=== PATIENT | female | born 1940 | race Caucasian/White ===

== ENCOUNTER 2018-04-21 00:52 | Outpatient (CLI) | payer MEDICARE, SELFPAY ==
--- NOTE | 2018-04-21 11:20 | DI.MAMMO_ITS ---
SYMPTOMS/DIAGNOSIS: SCREENING, Z12.31 MAMMOGRAMS: Mammograms were interpreted according to the usual protocol including computer analysis with CAD system, tomosynthesis and C view imaging. Comparison is with the prior examinations. No masses or microcalcifications are seen. There is nothing to suggest malignancy. IMPRESSION: Negative mammogram. Routine screening is recommended. Category 1 , breast density B. MQSA ASSESSMENT OF FINDINGS: Negative. Category 1. Patient will receive a letter notifying them of these results. BI-RADS category B. There are scattered areas of fibroglandular density.
== END 2018-04-21 01:12 ==
PROVIDERS: PCP Family Medicine; Visit Provider Family Medicine
DX: Z12.31 Encounter for screening mammogram for malignant neoplasm of breast (principal)
CPT/HCPCS: 77063; 77067

== ENCOUNTER → 2018-05-19 10:59 | Outpatient (BNVA) | payer MEDICARE, SELFPAY | PROVIDERS: PCP Family Medicine; Visit Provider Psychiatry & Neurology Neurology | DX: R40.4 Transient alteration of awareness (principal); R42 Dizziness and giddiness; R26.89 Other abnormalities of gait and mobility | CPT/HCPCS: 99205; 99215 ==

== ENCOUNTER 2018-05-21 14:41 | Outpatient (CLI) | payer MEDICARE, SELFPAY ==
--- NOTE | 2018-06-14 11:40 | ZIOP_ITS ---
[facility] MONITOR REPORT DATE OF DICTATION June 14, [address] May 21 - 2017 INTERPRETATION Baseline rhythm sinus. Rare single PAC. SVT noted twice, fastest run 122 beats per minute, longest run 9 beat duration. Rare single PVC, less than 1% total beat. No couplet, triplet, VT. No bradycardia/block. 2 triggered events both during sinus rhythm 67-70 beats per minute. SYMPTOMS 2 episodes of lightheadedness, dizziness noted during sinus rhythm, 67-69 beats per minute. Average heart rate sinus 63 beats per minute, range 38-104 beats per minute. Hadley Ho M.D. LARISA/diaz T- 06/14/2018
== END 2018-05-21 15:01 ==
PROVIDERS: PCP Family Medicine; Visit Provider Family Medicine
DX: R41.82 Altered mental status, unspecified (principal); I49.1 Atrial premature depolarization; I49.3 Ventricular premature depolarization
CPT/HCPCS: 93225

== ENCOUNTER 2018-05-24 14:04 | Outpatient (CLI) | payer MEDICARE, SELFPAY ==
[2018-05-24 14:45] LABS: Abs Immature Grans 0.02 k/cumm (0.0-0.09); Absolute Basophil Count 0.04 k/cumm (0.0-0.2); Absolute Eosinophil Count 0.17 k/cumm (0.0-0.7); Absolute Lymphocyte Count 1.48 k/cumm (1.2-3.4); Absolute Monocyte Count 0.94 k/cumm (0.11-0.7); Absolute Neutrophil Count 5.79 k/cumm (1.2-6.7); Basophils % 0.5; HGB 10.2 g/dL (12.0-15.5); Immature Grans % 0.2; Lymphocytes % 17.5; Mean Corp. HGB Concentration 30.9 g/dL (32.0-36.0); Mean Corpuscular Hemoglobin 29.8 pg (27.0-33.0); Mean Corpuscular Volume 96.5 fL (80-95); Mean Platelet Volume 10.2 fL (8.0-11.0); Monocytes % 11.1; Neutrophils % 68.7; Platelet Count 278 x1000/uL (130-400); RBC 3.42 m/cumm (4.00-5.20); RBC Distribution Width 15.6 % (11.7-14.6); White Blood Cell Count 8.44 k/cumm (4.4-10.8)
[2018-05-24 15:38] LABS: ALT 29 U/L (12-78); AST 23 U/L (15-37); Albumin 3.3 g/dL (3.4-5.0); Alkaline Phosphatase 72 U/L (46-116); Anion Gap 8.7 mmol/L (3-11); BUN 20 mg/dL (7-18); Bilirubin, Total 0.3 mg/dL (0.2-1.0); C-Reactive Protein 0.71 mg/dL (0.0-0.3); CO2 30.3 mmol/L (21.0-32.0); CREATININE 0.77 mg/dL (0.55-1.02); Calcium 9.2 mg/dL (8.5-10.1); Chloride 104 mmol/L (98-107); Glucose 97 mg/dL (70-100); Potassium 3.7 mmol/L (3.5-5.1); Sodium 143 mmol/L (136-145)
[2018-05-24 16:11] LABS: ESR 51 MM/HR (0-30)
== END 2018-05-24 14:24 ==
PROVIDERS: PCP Family Medicine; Visit Provider Internal Medicine
DX: M35.3 Polymyalgia rheumatica (principal); Z79.899 Other long term (current) drug therapy
CPT/HCPCS: 36415; 80053; 85652; 85025; 86140

== ENCOUNTER 2018-06-14 10:40 | Outpatient (CLI) | payer MEDICARE, SELFPAY | END 2018-06-14 11:00 | PROVIDERS: PCP Family Medicine; Referring Provider Psychiatry & Neurology Neurology; Visit Provider Internal Medicine Interventional Cardiology | DX: R41.82 Altered mental status, unspecified (principal); I49.1 Atrial premature depolarization; I49.3 Ventricular premature depolarization | CPT/HCPCS: 0298T ==

== ENCOUNTER 2018-06-28 10:04 | Day surgery (SDC) | payer MEDICARE, SELFPAY ==
--- NOTE | 2018-06-28 06:31 | W.COLOREPORT ---
Date of service: 06/28/18 Time of Service: 11:17 Colonoscopy Report Date of procedure: 06/28/18 Pre-op diagnosis general: Colon Cancer screening Post-op diagnosis procedure note: other (cecal polyp/ severe yao-diverticulosis) Procedure: Colonoscopy with polypectomy by cold forceps Surgeon: My Schwarz Anesthesia proc note operative: MAC (Georgia Alfonso CRNA/ ASA 3) Estimated blood loss (mL): 10 Pathology: other (cecal polyp) Complications: None Disposition: same day Indications: Mrs. Manuel is a pleasant 77-year-old female who was seen in the office to discuss a colonoscopy. Her last colonoscopy was in 2005 and was normal. Risks, benefits, complications were reviewed with her and she wished to proceed no guarantees were given or implied. Prep: Miralax/Dulcolax Procedure Start Time: :17 Procedure End Time: 11:51 Retraction Time: 15 minutes Findings: 1. Cecal polyp 2. Severe yao-diverticulosis Procedure Description: After informed consent was obtained the patient was taken to the procedure room and placed in a left decubitous position. Monitors were applied and a time out was done. The patients name, date of , procedure, allergies to medications and metal in their body was reviewed. The patient was then sedated. Once sedated and comfortable a rectal exam was done. External exam was normal. Internal exam revealed a normal sphincter tone and no palpable masses. The scope was then introduced and retro-flexed. Small Grade 1 internal hemorrhoids were identified. The scope was then advanced to the cecum with difficulty due to the severe diverticulosis and a very tortuous colon. The TI and appendiceal orifice were identified. The prep was good. The scope was then slowly retracted over 15 minutes back into the rectum. The scope was removed and the patient was woken up and taken back to Same day surgery in stable condition. The patient tolerated the procedure well and there were no immediate complications. Follow up: The patient should follow up in 3-5 years unless they develop changes in bowel habits or other new gastrointestinal complaints.
--- NOTE | 2018-06-28 06:34 | PDOC.DSDIS_ITS ---
Discharge Plan Disposition Patient Disposition: HOME Condition: Good Discharge Details Reason For Visit: Colonoscopy Attending Provider: My Schwarz Primary Care Provider: Liz Granado Home Meds and New Rx's Prescriptions: Continue bupropion HCl 300 mg tablet extended release 24 hr 300 mg PO QAM RF: 0 isoniazid 300 mg tablet 300 mg PO DAILY RF: 0 zolpidem 12.5 mg tablet,ext release multiphase 12.5 mg PO HS RF: 0 cholecalciferol (vitamin D3) 1,000 unit tablet 500 unit PO DAILY RF: 0 methylprednisolone [Medrol] 4 mg tablet 4 mg PO DAILY RF: 0 pyridoxine (vitamin B6) 25 mg tablet 25 mg PO DAILY RF: 0 aspirin [Aspirin Low Dose] 81 MG tablet,delayed release (DR/EC) 81 mg PO DAILY RF: 0 clotrimazole 45 GM cream 45 gm Topical BID PRNQty: 1 RF: 2 nystatin 60 GM powder 60 gm Topical DAILY Qty: 1 RF: 2 folic acid 1 MG tablet 1 mg PO DAILY Qty: 90 RF: 4 ferrous gluconate 324 MG tablet 324 mg PO DAILY Qty: 30 RF: 4 azelaic acid [Finacea] 50 GM gel 50 gm Topical BID Qty: 1 RF: 3 furosemide 20 MG tablet 20 mg PO DAILY Qty: 30 RF: 3 mirtazapine 7.5 MG tablet 7.5 mg PO HS Qty: 90 RF: 2 methotrexate sodium 2.5 mg tablet 15 mg PO .weekly Qty: 4 RF: 0 levothyroxine 100 mcg tablet 100 mcg PO DAILY Qty: 90 RF: 2 ascorbic acid (vitamin C) [Vitamin C] 500 MG tablet 500 mg PO DAILY RF: 0 Discontinued bisacodyl [Dulcolax (bisacodyl)] 5 mg tablet,delayed release (DR/EC) 5 mg PO ONCE Qty: 4 RF: 0 polyethylene glycol 3350 17 gram/dose powder 255 g PO ONCE Qty: 255 RF: 0 Discharge Instructions Instructions: Colonoscopy (DC), Diverticulosis (DC) Additional Instructions: Findings: Severe Diverticulosis One polyp Follow up: 3-5 years Please call if you develop: fevers >101.5 Nausea or vomiting Abdominal pain that is not transient DAY SURGERY UNIT POST COLONOSCOPY INSTRUCTIONS 1. Because there will be medication in your system for the next 24 hours, you may feel a little sleepy. Your coordination will be affected. Therefore: a. Do not drive or operate dangerous equipment for 24 hours. b. Do not drink alcohol beverages for 24 hours (not even beer). c. Plan to go home and rest for the day. 2. Generally there are no restrictions on your activity after a day or so has gone by, but you may feel a bit fatigued for a few days. 3 After you arrive home you may have a light meal and return to a normal diet as you can tolerate it without feeling sick to your stomach. 4. After surgery, you may feel pain or discomfort. This should be only transient , but if it persists please contact your doctor. 5. If there are any questions regarding the findings of your procedure, please feel free to contact your doctor. 6. If you are unable to contact your doctor with a problem, contact the hospital at [phone]. 7. Continue all your regular medications unless directed otherwise. I understand the above instructions and have no questions. Signature of Patient or Responsible Adult Escort Date/Time Name of Responsible Adult Escort Signature of Nurse Date/Time Activity:: Activity as Tolerated Diet:: high fiber diet Discharge Orders Discharge Orders: Discharge Order (Routine); Ordered 06/28/18 Ordered By: My Schwarz DS: Diagnosis Discharge Diagnosis (1) S/P colonoscopy: Status: Acute (2) Colon polyp: Status: Acute
[2018-06-28 10:21] VITALS: BP 159/77; PULSE 60; RESP 16; TEMP 36.8; O2SAT 97
[2018-06-28] MEDS: Lactated Ringers 1,000 ML 80 ML IV (11:09)
--- NOTE | 2018-06-28 11:37 | BOWEL_PTH ---
PATIENT: Riddhi Manuel LOC: [facility] U#:[id number] AGE/SX: 77/F ROOM: RE06/28/[address]: My Schwarz MD : [id number] BED: DIS: 06/28/2018 SPEC #: [id number] RECD: 06/28/18 13:05 STATUS: YANELY RE #: [id number] YOLI: 06/28/18 11:[address]: My Schwarz DEPT: Surgical Specimen RECD BY: Dolores Pulliam ENTERED: 06/28/18 13:06 SP TYPE: Bowel OTHR DR: Liz Granado MD Tissues: 1 - BIOPSY BOWEL Procedures: GROSS AND MICRO LEVEL 4 Comments: [id number]
[2018-06-28 12:28] VITALS: BP 164/70; PULSE 59; RESP 19; TEMP 36.4; O2SAT 98
[2018-06-28] MEDS: Ondansetron O.D.T. 4 MG TABEF PO (13:06)
== END 2018-06-28 13:05 | disposition home or self-care (01) ==
LOC: SUR 10:04
PROVIDERS: PCP Family Medicine; Visit Provider Surgery
PROC: 0DJD8ZZ Inspection of Lower Intestinal Tract, Via Natural or Artificial Opening Endoscopic (ICD-10-PCS; CPT 45378; principal; 2018-06-28 11:00)
DX: Z12.11 Encounter for screening for malignant neoplasm of colon (principal); K57.30 Diverticulosis of large intestine without perforation or abscess without bleeding; G47.33 Obstructive sleep apnea (adult) (pediatric); D12.0 Benign neoplasm of cecum
CPT/HCPCS: 45380; 88305

== ENCOUNTER 2018-06-28 15:40 | Inpatient (IN) | payer MEDICARE, SELFPAY ==
[2018-06-28] VITALS (8 sets, daily range): BP systolic 109–162; BP diastolic 43–69; PULSE 68–98; RESP 16–22; TEMP 35.9–37.2; O2SAT 93–97
--- NOTE | 2018-06-28 16:26 | ED.GENADUL_ITS ---
Discharge Plan Disposition Patient Disposition: [facility] INPATIENT Condition: Serious Discharge Details Chief Complaint: Abd Prob Clinical Impression: Bowel perforation Admit Date/Time: 06/28/18 17:51 Admit Provider: My Schwarz Attending Provider: My Schwarz Primary Care Provider: Liz Granado ED Provider: Radha Garcia Medical Decision Making Patient is a 77-year-old female presenting today, accompanied by her , with chief complaint of abdominal pain. She reports the pain began this morning after colonoscopy and have progressively increased since then. Patient was discharged from the hospital approximately 4 hours prior to arrival here. States that the pain has been increasing. She is not been able to pass flatus or have a bowel movement. States that pain radiates into back. States that she has been coughing and bringing up mucus. No cough prior to procedure this morning. No CP or SOB. Reviewed report from colonoscopy. Dr. Schwarz noted that she had severe diverticulosis and very tortuous colon. She did not note any complications. However, with this report of tortuosity, I am concerned for possible perforation. Plan obtain x-ray and laboratory evaluation. Will give morphine and Zofran to help with symptom medic management EKG reviewed by Dr. Bailey. NSR with no acute ischemic findings noted. X-ray reviewed by radiologist. They note diffuse distention of bowel loops especially the colon, but there is distal bowel glass and no dilation of bowel loops. Surgical sutures seen in the pelvis.. Diffuse free air is present. Bones and joints are unremarkable for age. Dr. Schwarz had reviewed the x-ray and came to evaluate the patient. She will be going to the operating room for free air status post colonoscopy. She is requested to place the patient on Zosyn. Order for Zosyn was placed. I did consult with pharmacy the patient is on methotrexate. She advised that this can increase the serum concentration of methotrexate but at one time dose should not have a large, long lasting effect laboratory evaluation significant for leukocytosis of 19. Potassium is low at 3.2. Magnesium is low at 1.6. Patient to OR with Dr. Schwarz, antibiotics are hanging. All of her questions and concerns were addressed. HPI General Mode of arrival: wheelchair . Date/Time Provider Initiated Documentation: 06/28/18 16:15 . Limitations to Documentation: no limitations . Information obtained by: patient and family . History of Present Illness 77 year old F presents to the emergency department with the chief complaint of abdominal pain, described as severe, Quality is described as stabbing, and is localized to the abdomen. Patient reports radiation to back. Patient started experiencing this hour(s) and it has been constant. No relieving factors improve symptom(s), Movement worsens symptoms . Patient notes loss of appetite and nausea/vomiting; denies chest pain, cough, fever/chills, rash and shortness of breath. Patient did receive the following treatments prior to arrival, none Related Data Home Medications Medication Instructions Recorded Confirmed aspirin [Aspirin Low Dose] 81 mg PO DAILY tab-cap 12/20/12 06/28/18 ascorbic acid (vitamin C) [Vitamin 500 mg PO DAILY 01/01/17 06/28/18 C] clotrimazole 45 gm TOPICAL BID PRN #1 script 03/05/17 06/28/18 nystatin 60 gm TOPICAL DAILY #1 gm 03/05/17 06/28/18 ferrous gluconate 324 mg PO DAILY #30 tab 08/27/17 06/28/18 folic acid 1 mg PO DAILY #90 tab-cap 08/27/17 06/28/18 azelaic acid [Finacea] 50 gm TOPICAL BID #1 script 11/16/17 06/28/18 furosemide 20 mg PO DAILY #30 tab-cap 12/21/17 06/28/18 mirtazapine 7.5 mg PO HS #90 tab-cap 02/02/18 06/28/18 methotrexate sodium 2.5 mg tablet 15 mg PO .weekly #4 tab 04/07/18 06/28/18 methylprednisolone 4 mg tablet 4 mg PO DAILY tab 04/07/18 06/28/18 levothyroxine 100 mcg tablet 100 mcg PO DAILY #90 tab-cap 05/14/18 06/28/18 pyridoxine (vitamin B6) 25 mg 25 mg PO DAILY 05/19/18 06/28/18 tablet bupropion HCl XL 300 mg 24 hr 300 mg PO QAM 06/14/18 06/28/18 tablet, extended release cholecalciferol (vitamin D3) 1,000 500 unit PO DAILY tab 06/14/18 06/28/18 unit tablet isoniazid 300 mg tablet 300 mg PO DAILY 06/14/18 06/28/18 zolpidem ER 12.5 mg 12.5 mg PO HS tab 06/14/18 06/28/18 tablet,extended release,multiphase Previous Rx's Medication Instructions Recorded ferrous gluconate 324 mg PO DAILY #30 tab 08/27/17 folic acid 1 mg PO DAILY #90 tab-cap 08/27/17 azelaic acid [Finacea] 50 gm TOPICAL BID #1 script 11/16/17 furosemide 20 mg PO DAILY #30 tab-cap 12/21/17 mirtazapine 7.5 mg PO HS #90 tab-cap 02/02/18 levothyroxine 100 mcg tablet 100 mcg PO DAILY #90 tab-cap 05/14/18 Allergies Allergy/AdvReac Type Severity Reaction Status Date / Time banana Allergy Intermediate Other (See Unverified 06/28/18 15:46 Comment) cucumber Allergy Intermediate Other (See Unverified 06/28/18 15:46 Comment) Iodinated Contrast- Oral and Allergy Unknown SWELLING; Unverified 06/28/18 15:46 IV Dye RASH [Iodinated Contrast Media - IV Dye] chloramphenicol AdvReac Severe KIDNEY Unverified 06/28/18 15:46 FAILURE tetracycline AdvReac Severe KIDNEY Unverified 06/28/18 15:46 FAILURE melon AdvReac Intermediate Cantaloupe-Abd Verified 06/28/18 15:46 pain, diarrhea ADHESIVE TAPE Allergy Intermediate takes skin Uncoded 06/28/18 15:46 off SUTURE MATERIAL Allergy Intermediate Purluent Uncoded 06/28/18 15:46 Drainage General Stated Complaint: Abd Prob JOSHUA: 2 Review of Systems Constitutional Reports as per HPI, Denies chills, Denies fatigue, Denies fever(s) and Denies headache(s) ENT Denies headache(s) Cardiovascular Reports as per HPI, Denies chest pain and Denies dyspnea Respiratory Reports as per HPI, Denies cough and Denies dyspnea Gastrointestinal Reports as per HPI, Reports abdominal pain, Denies belching, Reports cramping, Denies excessive flatus, Reports nausea and Denies vomiting Genitourinary Reports system reviewed and no additional complaints, except as docu (denies change in urinary habits) Musculoskeletal Reports as per HPI and Reports back pain Integumentary/Breasts Reports as per HPI and Denies rash Neurologic Denies headache(s) Endocrine Denies fatigue PFSH Raynaud's disease (Acute) Primary osteoarthritis of left knee (Acute 07/30/15) PMR (polymyalgia rheumatica) (Acute 01/15/16) Osteoporosis (Acute) Osteopenia (Acute 07/30/16) Obstructive sleep apnea syndrome (Acute) Non-alcoholic fatty liver disease (Acute) Memory impairment (Acute 06/18/94) Increased body mass index (Acute) Hypothyroidism (Acute 04/05/12) Fracture, calcaneus closed (Acute 09/19/14) Excessive sweating (Acute 06/02/16) Depressive disorder (Acute) Colon polyp (Acute 06/28/18) Cataract (Acute 07/28/14) Benign paroxysmal positional vertigo (Acute) Abdominal pain (Acute 10/31/13) Insomnia (Acute) Tuberculosis (Chronic) Family History Mother Heart disease Father Stroke Sister No problems noted. Brother No problems noted. Grandfather Essential hypertension Heart disease Grandfather No problems noted. Grandmother Personal history of malignant neoplasm Stroke Grandmother Personal history of malignant neoplasm H/O dilation and curettage (Acute) S/P tonsillectomy (Acute) Abdominal hysterectomy (~1975) Appendectomy Bilateral salpingectomy with oophorectomy (~1975) Colonoscopy - MAC EGD - MAC (~2003) Laparoscopic, Ovarian Cystectomy Rotator Cuff Repair Family History Mother Heart disease Father Stroke Sister No problems noted. Brother No problems noted. Grandfather Essential hypertension Heart disease Grandfather No problems noted. Grandmother Personal history of malignant neoplasm Stroke Grandmother Personal history of malignant neoplasm Medical History Raynaud's disease (Acute) Primary osteoarthritis of left knee (Acute 07/30/15) PMR (polymyalgia rheumatica) (Acute 01/15/16) Osteoporosis (Acute) Osteopenia (Acute 07/30/16) Obstructive sleep apnea syndrome (Acute) Non-alcoholic fatty liver disease (Acute) Memory impairment (Acute 06/18/94) Increased body mass index (Acute) Hypothyroidism (Acute 04/05/12) Fracture, calcaneus closed (Acute 09/19/14) Excessive sweating (Acute 06/02/16) Depressive disorder (Acute) Colon polyp (Acute 06/28/18) Cataract (Acute 07/28/14) Benign paroxysmal positional vertigo (Acute) Abdominal pain (Acute 10/31/13) Insomnia (Acute) Tuberculosis (Chronic) Social History household members: other details: 2 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 Smoking/Tobacco Use Status: Former Tobacco Use alcohol intake: current alcohol intake frequency: a few times a month additional social history: DECREASED VISION Surgical History H/O dilation and curettage (Acute) S/P tonsillectomy (Acute) Abdominal hysterectomy (~1975) Appendectomy Bilateral salpingectomy with oophorectomy (~1975) Colonoscopy - MAC EGD - MAC (~2003) Laparoscopic, Ovarian Cystectomy Rotator Cuff Repair Social History household members: other details: 2 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 Smoking/Tobacco Use Status: Former Tobacco Use alcohol intake: current alcohol intake frequency: a few times a month additional social history: DECREASED VISION Exam Const General: cooperative, healthy appearing, uncomfortable (patient appears uncomfortable, patient bent forward), no acute distress, well developed and well groomed Nutritional Appearance: well nourished and obese Orientation: alert and awake [facility] Head: normal to inspection Mouth: moist mucous membranes Resp Effort & Inspection: normal respiratory effort, able to speak in complete sentences and no respiratory distress Auscultation: clear to auscultation bilaterally, no rales, no rhonchi and no wheezes Cardio Rate: regular rate Rhythm: regular rhythm Heart Sounds: S1 normal and S2 normal GI Inspection: abnormal to inspection, distended, obesity and no visible herniation Palpation: soft, not firm, guarding (diffuse), no pulsatile masses, not rigid and tender (diffuse tenderness) Percussion: tympanic to percussion Auscultation: hypoactive bowel sounds Back/Spine/Pelvis Back: no CVA tenderness Skin General skin exam: no rashes or lesions noted Trauma: no lacerations or abrasions Neuro General: alert and awake Cognition: normal cognition Speech: speech normal Gait: antalgic (moving bent forward at the waist) Psych Appearance: grossly normal and well kempt Mental Status: mental status grossly normal Speech and Movement: speech and movement normal Course Vital Signs Temperature 35.9 C L 06/28/18 15:44 Pulse 68 06/28/18 15:44 Respiratory Rate 20 06/28/18 15:44 Blood Pressure 153/57 H 06/28/18 15:44 Pulse Oximetry 97 06/28/18 15:44 Temperature 35.9 C L 06/28/18 15:44 Temperature Source Temporal Artery Scan 06/28/18 15:44 Pulse 68 06/28/18 15:44 Respiratory Rate 20 06/28/18 15:44 Respiratory Effort Non-Labored 06/28/18 15:44 Blood Pressure 153/57 H 06/28/18 15:44 Pulse Oximetry 97 06/28/18 15:44 Oxygen Delivery Method Room Air 06/28/18 15:44 Oxygen Flow Rate 0 06/28/18 15:44 Pain Level 10 06/28/18 15:44
--- NOTE | 2018-06-28 16:26 | DI.RAD_ITS ---
SYMPTOM/DIAGNOSIS: ABDOMINAL PAIN AFTER COLONOSCOPY FLAT AND UPRIGHT VIEWS OF ABDOMEN: The patient is status post colonoscopy. On the upright view, there is a large amount of free air seen beneath the diaphragm consistent with colonic perforation. There is gas scattered in small and large bowel. Suture material is seen in the left lower pelvis. IMPRESSION: Large amount of free air.
[2018-06-28] MEDS: MORPHine 10 MG/ML VIAL 4 MG IM (16:36)
[2018-06-28] MEDS: Ondansetron O.D.T. 4 MG TABEF PO (16:37)
[2018-06-28 17:15] LABS: Abs Immature Grans 0.05 k/cumm (0.0-0.09); Absolute Basophil Count 0.04 k/cumm (0.0-0.2); Absolute Eosinophil Count 0.02 k/cumm (0.0-0.7); Absolute Lymphocyte Count 0.75 k/cumm (1.2-3.4); Absolute Neutrophil Count 17.55 k/cumm (1.2-6.7); Basophils % 0.2; Eosinophils % 0.1; HCT 39.1 % (36.0-46.0); HGB 12.3 g/dL (12.0-15.5); Immature Grans % 0.3; Lymphocytes % 3.8; Mean Corp. HGB Concentration 31.5 g/dL (32.0-36.0); Mean Corpuscular Hemoglobin 29.4 pg (27.0-33.0); Mean Corpuscular Volume 93.5 fL (80-95); Mean Platelet Volume 10.2 fL (8.0-11.0); Monocytes % 6.6; Platelet Count 253 x1000/uL (130-400); RBC 4.18 m/cumm (4.00-5.20); RBC Distribution Width 15.3 % (11.7-14.6); White Blood Cell Count 19.72 k/cumm (4.4-10.8)
[2018-06-28 17:26] LABS: ALT 34 U/L (12-78); AST 26 U/L (15-37); Albumin 3.4 g/dL (3.4-5.0); Alkaline Phosphatase 80 U/L (46-116); Anion Gap 11.4 mmol/L (3-11); BUN 16 mg/dL (7-18); Bilirubin, Total 0.5 mg/dL (0.2-1.0); CO2 25.6 mmol/L (21.0-32.0); CREATININE 0.81 mg/dL (0.55-1.02); Calcium 9.1 mg/dL (8.5-10.1); Chloride 105 mmol/L (98-107); Glucose 115 mg/dL (70-100); Lipase 84 U/L (73-393); Magnesium 1.6 mg/dL (1.8-2.4); Potassium 3.2 mmol/L (3.5-5.1); Sodium 142 mmol/L (136-145); Total Protein 7.8 g/dL (6.4-8.2)
[2018-06-28 17:32] LABS: Troponin I < 0.02 ng/mL (0.00-0.06)
--- NOTE | 2018-06-28 17:32 | DI.VRAD_ITS ---
EXAM: XR Abdomen, 2 Views EXAM DATE/TIME: 06/28/2018 5:18 PM CLINICAL HISTORY: 77 years old, female; Signs and symptoms; Abdominal tenderness and bloating; Prior surgery; Surgery date: Post-operative (0-2 days); Surgery type: S/P colonoscopy 06-28-18 TECHNIQUE: Frontal view of the abdomen/pelvis with upright view of the abdomen. COMPARISON: [facility]EMA 10/26/2013 9:59 AM FINDINGS: Gastrointestinal tract: There is diffuse distention of bowel loops especially the colon, but there is distal bowel gas, and no dilation of bowel loops. Intraperitoneal space: Surgical suture is seen in the pelvis. Diffuse free air is present Bones/joints: Unremarkable for age. IMPRESSION: Free air compatible with bowel rupture. Dictated and Authenticated by: Richard Harris MD. Ordering:ALANA KNAPP MD
--- NOTE | 2018-06-28 17:36 | W.PM.HP.N ---
Date of service: 06/28/18 Time of Service: 17:37 Assessment and Plan (1) Perforation of colon as colonoscopy complication: Current visit: Yes Status: Acute A\\ &7 year old with free air after a difficult colonoscopy today P\\ Exploratory laparotomy with repair of perforation, possible bowel resection. Risks, benefits and complications reviewed with patient and her . Complications include but are not limited to bleeding, pain, injury to bowel, anastamotic leak and adverse reaction to the medications. Questions were entertained and answered to her satisfaction and she wished to proceed. No guarantees were given or implied. History of Present Illness Chief Complaint: abdominal pain Narrative: Mrs. Manuel is a pleasant 77 year old who underwent a colonoscopy today which was very difficult due to a tortuous colon and severe diverticulosis. The patient had abdominal pain after the colonoscopy but felt that it was no different then after her other colonoscopies and so she went home. At home the pain continued to get worse. She called our office and was instructed to go to the ER. In the ER a flat plate was done which showed a lot of free air under the diaphragm. Review of Systems Constitutional Denies fever(s) Cardiovascular Denies chest pain, Denies rapid heart rate, Denies irregular heart rhythm, Denies palpitations and Denies dyspnea Respiratory Denies cough and Denies dyspnea Gastrointestinal Reports as per HPI Endocrine Denies palpitations PFSH Raynaud's disease (Acute) Primary osteoarthritis of left knee (Acute 07/30/15) PMR (polymyalgia rheumatica) (Acute 01/15/16) Osteoporosis (Acute) Osteopenia (Acute 07/30/16) Obstructive sleep apnea syndrome (Acute) Non-alcoholic fatty liver disease (Acute) Memory impairment (Acute 06/18/94) Increased body mass index (Acute) Hypothyroidism (Acute 04/05/12) Fracture, calcaneus closed (Acute 09/19/14) Excessive sweating (Acute 06/02/16) Depressive disorder (Acute) Colon polyp (Acute 06/28/18) Cataract (Acute 07/28/14) Benign paroxysmal positional vertigo (Acute) Abdominal pain (Acute 10/31/13) Insomnia (Acute) Tuberculosis (Chronic) Family History Mother Heart disease Father Stroke Sister No problems noted. Brother No problems noted. Grandfather Essential hypertension Heart disease Grandfather No problems noted. Grandmother Personal history of malignant neoplasm Stroke Grandmother Personal history of malignant neoplasm H/O dilation and curettage (Acute) S/P tonsillectomy (Acute) Abdominal hysterectomy (~1975) Appendectomy Bilateral salpingectomy with oophorectomy (~1975) Colonoscopy - MAC EGD - MAC (~2003) Laparoscopic, Ovarian Cystectomy Rotator Cuff Repair Family History Mother Heart disease Father Stroke Sister No problems noted. Brother No problems noted. Grandfather Essential hypertension Heart disease Grandfather No problems noted. Grandmother Personal history of malignant neoplasm Stroke Grandmother Personal history of malignant neoplasm Medical History Raynaud's disease (Acute) Primary osteoarthritis of left knee (Acute 07/30/15) PMR (polymyalgia rheumatica) (Acute 01/15/16) Osteoporosis (Acute) Osteopenia (Acute 07/30/16) Obstructive sleep apnea syndrome (Acute) Non-alcoholic fatty liver disease (Acute) Memory impairment (Acute 06/18/94) Increased body mass index (Acute) Hypothyroidism (Acute 04/05/12) Fracture, calcaneus closed (Acute 09/19/14) Excessive sweating (Acute 06/02/16) Depressive disorder (Acute) Colon polyp (Acute 06/28/18) Cataract (Acute 07/28/14) Benign paroxysmal positional vertigo (Acute) Abdominal pain (Acute 10/31/13) Insomnia (Acute) Tuberculosis (Chronic) Social History household members: other details: 2 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 Smoking/Tobacco Use Status: Former Tobacco Use alcohol intake: current alcohol intake frequency: a few times a month additional social history: DECREASED VISION Surgical History H/O dilation and curettage (Acute) S/P tonsillectomy (Acute) Abdominal hysterectomy (~1975) Appendectomy Bilateral salpingectomy with oophorectomy (~1975) Colonoscopy - MAC EGD - MAC (~2003) Laparoscopic, Ovarian Cystectomy Rotator Cuff Repair Social History household members: other details: 2 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 Smoking/Tobacco Use Status: Former Tobacco Use alcohol intake: current alcohol intake frequency: a few times a month additional social history: DECREASED VISION Meds Home Medications Medication Instructions Recorded Confirmed Type aspirin [Aspirin Low Dose] 81 mg PO DAILY tab-cap 12/20/12 06/28/18 History ascorbic acid (vitamin C) [Vitamin 500 mg PO DAILY 01/01/17 06/28/18 History C] clotrimazole 45 gm TOPICAL BID PRN #1 script 03/05/17 06/28/18 History nystatin 60 gm TOPICAL DAILY #1 gm 03/05/17 06/28/18 History ferrous gluconate 324 mg PO DAILY #30 tab 08/27/17 06/28/18 Rx folic acid 1 mg PO DAILY #90 tab-cap 08/27/17 06/28/18 Rx azelaic acid [Finacea] 50 gm TOPICAL BID #1 script 11/16/17 06/28/18 Rx furosemide 20 mg PO DAILY #30 tab-cap 12/21/17 06/28/18 Rx mirtazapine 7.5 mg PO HS #90 tab-cap 02/02/18 06/28/18 Rx methotrexate sodium 2.5 mg tablet 15 mg PO .weekly #4 tab 04/07/18 06/28/18 History methylprednisolone 4 mg tablet 4 mg PO DAILY tab 04/07/18 06/28/18 History levothyroxine 100 mcg tablet 100 mcg PO DAILY #90 tab-cap 05/14/18 06/28/18 Rx pyridoxine (vitamin B6) 25 mg 25 mg PO DAILY 05/19/18 06/28/18 History tablet bupropion HCl XL 300 mg 24 hr 300 mg PO QAM 06/14/18 06/28/18 History tablet, extended release cholecalciferol (vitamin D3) 1,000 500 unit PO DAILY tab 06/14/18 06/28/18 History unit tablet isoniazid 300 mg tablet 300 mg PO DAILY 06/14/18 06/28/18 History zolpidem ER 12.5 mg 12.5 mg PO HS tab 06/14/18 06/28/18 History tablet,extended release,multiphase Allergies Allergy/AdvReac Type Severity Reaction Status Date / Time banana Allergy Intermediate Other (See Unverified 06/28/18 15:46 Comment) cucumber Allergy Intermediate Other (See Unverified 06/28/18 15:46 Comment) Iodinated Contrast- Oral and Allergy Unknown SWELLING; Unverified 06/28/18 15:46 IV Dye RASH [Iodinated Contrast Media - IV Dye] chloramphenicol AdvReac Severe KIDNEY Unverified 06/28/18 15:46 FAILURE tetracycline AdvReac Severe KIDNEY Unverified 06/28/18 15:46 FAILURE melon AdvReac Intermediate Cantaloupe-Abd Verified 06/28/18 15:46 pain, diarrhea ADHESIVE TAPE Allergy Intermediate takes skin Uncoded 06/28/18 15:46 off SUTURE MATERIAL Allergy Intermediate Purluent Uncoded 06/28/18 15:46 Drainage Exam Const General: cooperative and no acute distress Resp Effort & Inspection: normal respiratory effort Auscultation: clear to auscultation bilaterally Cardio Rate: regular rate Rhythm: regular rhythm Heart Sounds: no gallops, no murmurs and no rubs GI Inspection: normal to inspection Palpation: soft, no hepatosplenomegaly and guarding Auscultation: normal bowel sounds Results Labs : 06/28/18 16:47 06/28/18 16:47 Laboratory Results - last 24 hr 06/28/18 06/28/18 16:47 16:47 WBC 19.72 H RBC 4.18 Hgb 12.3 Hct 39.1 MCV 93.5 MCH 29.4 MCHC 31.5 L RDW 15.3 H Plt Count 253 MPV 10.2 Immature Gran % 0.3 Neutrophils % 89.0 Lymphocytes % 3.8 Monocytes % 6.6 Eosinophils % 0.1 Basophils % 0.2 Absolute Neutrophils 17.55 H Absolute Lymphocytes 0.75 L Absolute Monocytes 1.30 H Absolute Eosinophils 0.02 Absolute Basophils 0.04 Sodium 142 Potassium 3.2 L Chloride 105 Carbon Dioxide 25.6 Anion Gap 11.4 H BUN 16 Creatinine 0.81 Estimated GFR/1.73 m2 >= 60.00 Glucose 115 H Calcium 9.1 Magnesium 1.6 L Total Bilirubin 0.5 AST 26 ALT 34 Alkaline Phosphatase 80 Troponin I < 0.02 Total Protein 7.8 Albumin 3.4 Lipase 84 Last Vital Signs Temp 96.6 F L 06/28/18 15:44 Pulse 68 06/28/18 15:44 Resp 20 06/28/18 15:44 BP 153/57 H 06/28/18 15:44 Pulse Ox 97 06/28/18 15:44
[2018-06-28] MEDS: Lactated Ringers 1,000 ML 125 ML IV ×2 (18:07→23:15)
[2018-06-28] MEDS: PIPERACILLIN/TAZO 3.375 GM in Normal Saline 50 ML IVPB (18:08)
[2018-06-28] MEDS: Pantoprazole 40 MG VIAL IVP (18:18)
[2018-06-28] MEDS: MAGNESIUM SULFATE 2 GM/50 ML BAG IVPB (18:19)
[2018-06-28] MEDS: Lidocaine 2% Multi-Dose 50 ML VIAL (19:36)
--- NOTE | 2018-06-28 20:13 | BOWEL_PTH ---
PATIENT: Riddhi Manuel LOC: U#:[id number] AGE/SX: 77/F ROOM: RE06/28/[address]: My Schwarz MD : 1940 BED: A DIS: 07/05/2018 SPEC #: [id number] RECD: 06/29/18 12:41 STATUS: YANELY REQ #: [id number] YOLI: 06/28/18 20:[address]: My Schwarz DEPT: Surgical Specimen RECD BY: Dolores Pulliam ENTERED: 06/29/18 12:41 SP TYPE: Bowel OTHR DR: Liz Granado MD Tissues: 1 - BOWEL RESECTION(OTHER) Procedures: GROSS AND MICRO LEVEL 5 Comments: [id number]
--- NOTE | 2018-06-28 20:25 | PDOC.ANES ---
Date of service: 06/28/18 Time of Service: 20:25 Anesthesia Note Report Anesthesia Note: Midline Catheter Placement: Called by the Emergency Room for vascular access on surgical patient after a couple unsuccessful IV attempts. Patient states she has been a difficult IV start in the past. Given surgical course, decision made to place a midline catheter. Ultrasound used for placement. Sites assessed, right basilic vein identified after tourniquet placed. Site cleansed with chloroprep, 18 gauge BARD Powerglide Pro placed, guidewire advanced with ease, catheter advanced with ease all under ultrasound. Stat-Lock placed and dressing applied. IV flushed with positive venous blood return noted. No complications, patient tolerated procedure well.
[2018-06-29] VITALS (8 sets, daily range): BP systolic 95–146; BP diastolic 41–67; PULSE 62–66; RESP 17–20; TEMP 36.2–37; O2SAT 94–98
[2018-06-29] MEDS: Ketorolac 15 MG/ML VIAL IVP ×4 (00:21→23:21)
[2018-06-29] MEDS: ACETAMINOPHEN 1,000 MG/100 ML BTL 400 MG IVPB ×2 (02:01→10:42)
[2018-06-29] MEDS: PIPERACILLIN/TAZO 3.375 GM in Normal Saline 50 ML IVPB ×4 (02:48→19:43)
[2018-06-29] MEDS: Lactated Ringers 1,000 ML 125 ML IV ×3 (06:43→17:14)
[2018-06-29 07:42] LABS: HCT 34.7 % (36.0-46.0); HGB 10.8 g/dL (12.0-15.5); Mean Corp. HGB Concentration 31.1 g/dL (32.0-36.0); Mean Corpuscular Hemoglobin 29.4 pg (27.0-33.0); Mean Corpuscular Volume 94.6 fL (80-95); Mean Platelet Volume 10.8 fL (8.0-11.0); Platelet Count 243 x1000/uL (130-400); RBC 3.67 m/cumm (4.00-5.20); RBC Distribution Width 15.2 % (11.7-14.6); White Blood Cell Count 23.95 k/cumm (4.4-10.8)
[2018-06-29 07:49] LABS: Anion Gap 10.4 mmol/L (3-11); BUN 15 mg/dL (7-18); CO2 25.6 mmol/L (21.0-32.0); Calcium 8.5 mg/dL (8.5-10.1); Chloride 105 mmol/L (98-107); Estimated GFR 48.29 (mL/min/1.73m2); Glucose 129 mg/dL (70-100); Magnesium 2.1 mg/dL (1.8-2.4); Sodium 141 mmol/L (136-145)
--- NOTE | 2018-06-29 07:51 | PDOC.CMIN ---
- If Service Date Differs Date of service: 06/29/18 Time of Service: 07:51 Care Management Initial Assess PAST MEDICAL HISTORY/PAST SURGICAL HISTORY:: Benign paroxysmal positional vertigo, cataract, colon polyp, depressive disorder, calcaneus closed fracture, hypothyroidism, increased BMI, insomnia, memory impairment (h/o closed head injury), non-alcoholic fatty liver disease, obstructive sleep apnea, osteopenia, osteoperosis, PMR, osteoarthritis, Raynaud's disease, tuberculosis. Surgical hx: hysterectomy, appendectomy, bilateral salpingectomy with oophorectomy, colonoscopy, EGD, D&C, laparoscopic ovarian cystetomy, rotator cuff repair, tonsillectomy. PREVIOUS FUNCTIONAL STATUS/SOCIAL/FAMILY SUPPORTS:: Amanda resides in [place] with her , Ed. They have four adult children and 15 grandchildren; none of whom reside locally. Amanda is retired and reports that prior to the age of 66 she was not working and collecting disability. Her , Ed, works at [employer]. She is independent with her ADLs and transportation at baseline and reports that she uses a walker once in awhile as she occassionally gets dizzy. CURRENT FUNCTIONAL STATUS:: Amanda is lying in bed when visits this afternoon. Her Ed is at baseline. Amanda has a NG tube in place, a fjaardo catheter and is receiving IV fluids and antibiotics. Amanda has an epidural in place for pain management. She remains NPO at this time. Amanda denies pain and reports that the NG tube is not bothering her at all!. ADVANCE DIRECTIVES:: None on file at [facility]. Has patient been provided with information about the portal?: Yes Did the patient sign up for the portal?: No CODE STATUS:: Full Code INSURANCE COVERAGE / FINANCIAL ISSUES:: [employer], Medicare. CURRENT HOME/COMMUNITY SERVICES/EQUIPMENT:: No current home or community services. FWW for occasional use. PRIMARY CARE PHYSICIAN:: Liz Granado MD. POTENTIAL DISCHARGE NEEDS:: Follow up appointment with surgical services. PATIENT/FAMILY EDUCATION NEEDS:: Discharge education, any limitations, and follow up plan of care. Ask Me Three discussion. ANTICIPATED BARRIERS TO DISCHARGE:: No anticipated barriers to discharge. TRANSPORTATION:: Amanda will transport via private vehicle with her , Ed. PLAN:: Pat will discharge when medically ready per MD. Anticipate patient will discharge with no services and follow up with surgical services. CM will continue to offer support to patient and care team regarding discharge planning and disposition.
--- NOTE | 2018-06-29 08:00 | INITIAL_ITS ---
- If Service Date Differs Date of service: 06/29/18 Time of Service: 07:51 Care Management Initial Assess PAST MEDICAL HISTORY/PAST SURGICAL HISTORY:: Benign paroxysmal positional vertigo, cataract, colon polyp, depressive disorder, calcaneus closed fracture, hypothyroidism, increased BMI, insomnia, memory impairment (h/o closed head injury), non-alcoholic fatty liver disease, obstructive sleep apnea, osteopenia , osteoperosis, PMR, osteoarthritis, Raynaud's disease, tuberculosis. Surgical hx: hysterectomy, appendectomy, bilateral salpingectomy with oophorectomy, colonoscopy, EGD, D&C, laparoscopic ovarian cystetomy, rotator cuff repair, tonsillectomy. PREVIOUS FUNCTIONAL STATUS/SOCIAL/FAMILY SUPPORTS:: Amanda resides in [place] with her , Ed. They have four adult children and 15 grandchildren; none of whom reside locally. Amanda is retired and reports that prior to the age of 66 she was not working and collecting disability. Her , Ed, works at [employer]. She is independent with her ADLs and transportation at baseline and reports that she uses a walker once in awhile as she occassionally gets dizzy. CURRENT FUNCTIONAL STATUS:: Amanda is lying in bed when visits this afternoon. Her Ed is at baseline. Amanda has a NG tube in place, a fajardo catheter and is receiving IV fluids and antibiotics. Amanda has an epidural in place for pain management. She remains NPO at this time. Amanda denies pain and reports that the NG tube is not bothering her at all!. ADVANCE DIRECTIVES:: None on file at [facility]. Has patient been provided with information about the portal?: Yes Did the patient sign up for the portal?: No CODE STATUS:: Full Code INSURANCE COVERAGE / FINANCIAL ISSUES:: [employer], Medicare. CURRENT HOME/COMMUNITY SERVICES/EQUIPMENT:: No current home or community services. FWW for occasional use. PRIMARY CARE PHYSICIAN:: Liz Granado MD. POTENTIAL DISCHARGE NEEDS:: Follow up appointment with surgical services. PATIENT/FAMILY EDUCATION NEEDS:: Discharge education, any limitations, and follow up plan of care. Ask Me Three discussion. ANTICIPATED BARRIERS TO DISCHARGE:: No anticipated barriers to discharge. TRANSPORTATION:: Amanda will transport via private vehicle with her , Ed. PLAN:: Pat will discharge when medically ready per MD. Anticipate patient will discharge with no services and follow up with surgical services. CM will continue to offer support to patient and care team regarding discharge planning and disposition.
[2018-06-29 08:15] LABS: Absolute Lymphocyte Count 0.96 k/cumm (1.2-3.4); Absolute Neutrophil Count 21.79 k/cumm (1.2-6.7); Atypical Lymphocytes % 1; Diff Comment Manual Differential
[2018-06-29 08:16] LABS: Poikilocytes 1+
--- NOTE | 2018-06-29 08:48 | PGE_ITS ---
Date of Service Date of service: 06/29/18 Time of Service: 08:40 Assessment and Plan (1) Perforation of colon as colonoscopy complication: Current visit: Yes Status: Acute 77 y/o female POD #1 s/p exploratory laporatomy for colon perforation due to a colonoscopy complication. She denies constitutional symptoms and currently has good pain control. She alert and oriented and expressing eagerness to ambulate and to get out of bed. She reports that she takes several medications at home for her PMR and latent TB, her is going to bring in her medications to ensure that she is able to receive these. DIET- NPO; Ice chips only. NG tube in place for bowel decompression. PAIN- Pain levels well managed with Tylenol, toradol and epidural. ACTIVITY- Discussed sitting up throughout the day and frequent deep breaths and use of the incentive spirometer. ATB- Continue Zosyn. Subjective Patient reports: no bowel movement; denies flatus Interval history since last seen: The patient reports that she is feeling better this morning, that her pain is currently well controlled at 4/10PL diffusely across her abdomen. She denies passing flatus. Denies nausea or vomiting. She is expressing desire to get out of bed and ambulated today. If I could walk, I feel like things would start moving. Exam Const General: cooperative and comfortable Orientation: alert and oriented x3 Resp Effort & Inspection: normal respiratory effort Cardio Jugular venous pressure: no JVD GI Inspection: incision (Dressing is intact with some bloody drainage. No erythema , swelling or tenderness around the incision site. ) Palpation: soft, no guarding and tender (Diffuse, mild tenderness with palpation of the abdomen.) with no rebound tenderness Objective Objective Clinical Data: Abnormal lab results 06/28/18 06/28/18 06/29/18 Range/Units 16:47 16:47 06:30 WBC 19.72 H (4.4-10.8) k/cumm RBC (4.00-5.20) m/cumm Hgb (12.0-15.5) g/dL Hct (36.0-46.0) % MCHC 31.5 L (32.0-36.0) g/dL RDW 15.3 H (11.7-14.6) % Absolute Neutrophils 17.55 H (1.2-6.7) k/cumm Absolute Lymphocytes 0.75 L (1.2-3.4) k/cumm Absolute Monocytes 1.30 H (0.11-0.7) k/cumm Potassium 3.2 L (3.5-5.1) mmol/L Anion Gap 11.4 H (3-11) mmol/L Creatinine 1.10 H (0.55-1.02) mg/dL Glucose 115 H 129 H (70-100) mg/dL Magnesium 1.6 L (1.8-2.4) mg/dL 06/29/18 Range/Units 06:30 WBC 23.95 H (4.4-10.8) k/cumm RBC 3.67 L (4.00-5.20) m/cumm Hgb 10.8 L (12.0-15.5) g/dL Hct 34.7 L (36.0-46.0) % MCHC 31.1 L (32.0-36.0) g/dL RDW 15.2 H (11.7-14.6) % Absolute Neutrophils 21.79 H (1.2-6.7) k/cumm Absolute Lymphocytes 0.96 L (1.2-3.4) k/cumm Absolute Monocytes 1.20 H (0.11-0.7) k/cumm Potassium (3.5-5.1) mmol/L Anion Gap (3-11) mmol/L Creatinine (0.55-1.02) mg/dL Glucose (70-100) mg/dL Magnesium (1.8-2.4) mg/dL Vital Signs Temperature 36.6 C 06/29/18 04:25 Temperature Source Skin 06/29/18 04:25 Pulse 62 06/29/18 04:25 Respiratory Rate 20 06/29/18 04:25 Respiratory Effort Non-Labored 06/28/18 22:40 Respiratory Depth Normal 06/28/18 22:40 Respiratory Pattern Normal 06/28/18 22:40 Blood Pressure 95/59 L 06/29/18 04:25 Pulse Oximetry 97 06/29/18 04:25 Respiratory End-tidal CO2 35 06/28/18 22:10 Oxygen Delivery Method Room Air 06/29/18 04:25 Oxygen Flow Rate 0 06/29/18 04:25 Pain Level 0 06/29/18 04:25 Comment 06/29/18 04:25 Intake & Output 06/28/18 06/28/18 06/29/18 11:59 23:59 11:59 Intake Total 1000 / 1000 1086.667 / 1086.667 Output Total 340 / 340 300 / 300 Balance 660 / 660 786.667 / 786.667 Weight 80.739 kg Intake: IV 1000 / 1000 1016.667 / 1016.667 Oral 50 / 50 Injectate 20 / 20 Right Lower Abdomen 20 / 20 Output: Drainage 40 / 40 Right Lower Abdomen 40 / 40 Urine 150 / 150 300 / 300 Estimated Blood Loss 150 / 150 Other: Urine Color Yellow Yellow Urine Appearance Clear Clear Emesis Description None Laboratory Results WBC 23.95 k/cumm (4.4-10.8) H 06/29/18 06:30 RBC 3.67 m/cumm (4.00-5.20) L 06/29/18 06:30 Hgb 10.8 g/dL (12.0-15.5) L 06/29/18 06:30 Hct 34.7 % (36.0-46.0) L 06/29/18 06:30 MCV 94.6 fL (80-95) 06/29/18 06:30 MCH 29.4 pg (27.0-33.0) 06/29/18 06:30 MCHC 31.1 g/dL (32.0-36.0) L 06/29/18 06:30 RDW 15.2 % (11.7-14.6) H 06/29/18 06:30 Plt Count 243 x1000/uL (130-400) 06/29/18 06:30 MPV 10.8 fL (8.0-11.0) 06/29/18 06:30 Immature Gran % 0.0 06/29/18 06:30 Neutrophils % 88.0 06/29/18 06:30 Lymphocytes % 3.0 06/29/18 06:30 Monocytes % 5.0 06/29/18 06:30 Eosinophils % 0.0 06/29/18 06:30 Basophils % 0.0 06/29/18 06:30 Absolute Neutrophils 21.79 k/cumm (1.2-6.7) H 06/29/18 06:30 Band Neutrophils 3.0 % 06/29/18 06:30 Absolute Lymphocytes 0.96 k/cumm (1.2-3.4) L 06/29/18 06:30 Absolute Monocytes 1.20 k/cumm (0.11-0.7) H 06/29/18 06:30 Absolute Eosinophils 0.00 k/cumm (0.0-0.7) 06/29/18 06:30 Absolute Basophils 0.00 k/cumm (0.0-0.2) 06/29/18 06:30 Differential Comment Manual differential 06/29/18 06:30 Atypical Lymphocytes 1 06/29/18 06:30 RBC Morphology See below 06/29/18 06:30 Poikilocytosis 1+ 06/29/18 06:30 Sodium 141 mmol/L (136-145) 06/29/18 06:30 Potassium 4.0 mmol/L (3.5-5.1) D 06/29/18 06:30 Chloride 105 mmol/L (98-107) 06/29/18 06:30 Carbon Dioxide 25.6 mmol/L (21.0-32.0) 06/29/18 06:30 Anion Gap 10.4 mmol/L (3-11) 06/29/18 06:30 BUN 15 mg/dL (7-18) 06/29/18 06:30 Creatinine 1.10 mg/dL (0.55-1.02) H 06/29/18 06:30 Estimated GFR/1.73 m2 48.29 (mL/min/1.73m2) 06/29/18 06:30 Glucose 129 mg/dL (70-100) H 06/29/18 06:30 Calcium 8.5 mg/dL (8.5-10.1) 06/29/18 06:30 Magnesium 2.1 mg/dL (1.8-2.4) 06/29/18 06:30 Total Bilirubin 0.5 mg/dL (0.2-1.0) 06/28/18 16:47 AST 26 U/L (15-37) 06/28/18 16:47 ALT 34 U/L (12-78) 06/28/18 16:47 Alkaline Phosphatase 80 U/L (46-116) 06/28/18 16:47 Troponin I < 0.02 ng/mL (0.00-0.06) 06/28/18 16:47 Total Protein 7.8 g/dL (6.4-8.2) 06/28/18 16:47 Albumin 3.4 g/dL (3.4-5.0) 06/28/18 16:47 Lipase 84 U/L (73-393) 06/28/18 16:47
--- NOTE | 2018-06-29 12:25 | PDOC.ANES ---
Date of service: 06/29/18 Time of Service: 12:27 Anesthesia Note Report Anesthesia Note: Pt sitting up in bed. epidural pump still running at 10 mL/min. States she has been up an in a chair and that she is doing well with the epidural for pain. Is using her PCEA button along with scheduled ketorolac and states that it has been working well for her. She did not complain of a headache at this time.
--- NOTE | 2018-06-29 12:28 | ANES_ITS ---
Date of service: 06/29/18 Time of Service: 12:27 Anesthesia Note Report Anesthesia Note: Pt sitting up in bed. epidural pump still running at 10 mL/ min. States she has been up an in a chair and that she is doing well with the epidural for pain. Is using her PCEA button along with scheduled ketorolac and states that it has been working well for her. She did not complain of a headache at this time.
--- NOTE | 2018-06-29 15:28 | ROE_ITS ---
DATE OF PROCEDURE: June 28, 2018 PREOPERATIVE DIAGNOSIS: Enterotomy status post colonoscopy. POSTOPERATIVE DIAGNOSIS: Same. PROCEDURE: Exploratory laparotomy, lysis of adhesions and sigmoid colon resection with anastomosis. ANESTHESIA: General endotracheal anesthesia and epidural. ANESTHESIA PROVIDER: Pj Kay CRNA ASA III E SURGEON: Darwin Schwarz M.D. ALKYLATION OPERATOR: Candida Worthington BLOOD LOSS: 150 cc's URINE OUTPUT: 150 cc's FINDINGS: Bowel perforation noted in the sigmoid colon at the pelvic rim. There were multiple adhesions between the peritoneum, bladder and the colon in that area from her previous surgeries. The sigmoid colon was twisted and angulated due to the adhesions. INDICATIONS: Ms. Manuel is a very pleasant 77-year-old female who underwent a colonoscopy earlier on June 28. Her colonoscopy was quite difficult due to her severe diverticulosis, as well as the tortuosity of her sigmoid colon. I did not see any injuries while doing the colonoscopy itself. The patient did have more pain after surgery than expected. I was in another case and a nurse tried to keep the patient to stay so I could see her, but she just wanted to go home. The patient went home but continued to feel worse and they came back to the Emergency Department. A flat plate was done, which showed a lot of free-air under the diaphragm. A perforation was suspected and risks, benefits and complications of the procedure were reviewed with her and her . Their questions were answered to their satisfaction and they wished to proceed. No guarantees were given or implied. PROCEDURE: After informed consent was obtained, the patient was taken to the PACU. Anesthesia placed an epidural and she was then taking to the operating room and placed in a supine position. SCD's were applied and she was then placed under general anesthesia and intubated. A Johnson catheter was placed in a standard surgical fashion. She was placed in stirrups and her abdomen was prepped and draped in a sterile surgical fashion with Chlorhexidine. The perineum and rectal area were prepped with iodine. 2% lidocaine was then injected into the dermis and subcutaneous tissue from just above the umbilicus down to the pubic symphysis. Using a #10 blade an incision was made; dissection was taken down through the subcutaneous fat down to the linea alba using cautery. The linea alba was opened. The peritoneum was grasped and opened sharply with Metzenbaum scissors. I was then able to place my finger into the peritoneum. There was escape of air as soon as the peritoneum was entered. There were some adhesions on the omentum noted and these were swept down with my finger. The fascia was then opened along the entire incision. The fascia was then grasped with Dave's and the omental adhesions were removed using blunt dissection, cautery and sharp dissection with curved Metzenbaum scissors. Once the omentum was freed, the transverse colon was inspected; it was dilated. The cecum was inspected and it was dilated. No perforation was noted in the cecum, ascending or transverse colon. An Omni was then attached to the bed and the abdominal wall was retracted. A blue towel was placed around the small bowel and using the malleable retractor, the bowel was swept up towards the right upper quadrant. I then inspected the rectum and saw some inflammatory fluid and tissue. Thick adhesions were noted between the sigmoid colon, rectum to the peritoneal lining and the bladder. The adhesions were taken down bluntly with cautery and sharply with curved Metzenbaum scissors. I was then able to see the perforation and it was on the medial aspect of the sigmoid colon about an inch and a half above the rectum. In this area the colon was not only densely adhered, but it was also twisted. I was able to take down all the adhesions and straighten the bowel out a little bit. Using a curved stapler, the sigmoid colon was stapled off below the injury. An area above the injury was then identified where there were not a lot of diverticula. The bowel was clamped and cut with a #10 blade. The mesentery was then transected using the ligasure. No bleeding was identified from the mesentery. The piece of bowel was removed from the operating table and placed in formalin. The round stapler was then used to create an anastomosis between the rectum and the sigmoid colon. The anvil was placed into the proximal descending sigmoid colon and secured with a pursestring. The stapler was then placed through the rectum and it was opened, allowing the instrument to burroughs through the wall. The anvil was attached and the stapler was closed. It was then fired and gently removed. There was no tension noted on the anastomosis. Fluid was then placed into the pelvis and while clamping off the bowel just above the anastomosis, air was placed into the rectum. No bubbles were noted. The fluid was suctioned out. A few areas of bleeding were noted along the mesentery at this time and these were cauterized until it was dry. Four liters of warm normal saline were used to irrigate the abdomen. By the end the effluent was clear. I then palpated the stomach for the NG tube and repositioned it slightly. The small bowel was released and inspected. No injuries were noted throughout the small bowel. The transverse colon was placed back into the abdomen and the omentum was placed over the small bowel. A drain was then placed through the right lower quadrant down into the pelvis next to the anastomosis. The fascia was then closed using #1 Vicryl, running stitch x2. The wound was irrigated. The subcutaneous tissue was reapproximated with #2-0 silk and the dermis was closed using maame. The skin was then cleaned and dried. The 4x4's were applied and these were secured with Tegaderm. The length of the drain tubing was slightly cut and attached to a bulb suction. At this point the patient was woken up, extubated and taken back to recovery and room in stable condition. Sponge, instrument and needle counts were correct x2 at the end of the case.
--- NOTE | 2018-06-29 15:49 | W.PM.PROGNOT ---
Date of Service Date of service: 06/29/18 Time of Service: 15:49 Assessment and Plan (1) Perforation of colon as colonoscopy complication: Current visit: Yes Status: Acute A\\ POD#1 from exploratory laparotomy and bowel resection P\\ 1. Pain- Well controlled on Epidural and toradol as needed as well as aspirin as needed 2. Nutrition: Continue NPO status until she starts to pass flatus. 3. Activity: Start ambulating. May clamp NG tube in order to ambulate. 4. DVT prophilaxis- on Lovenox 5. Leukocytosis- continue Zosyn. recheck labs tomorrow 6. Hypothyroidism- start Iv levothyroxin 7. Insomnia- Try Benadryl 12.5 mg Iv and may repeat x 1 4. Disposition: Home once taking PO and pain controlled on oral pain medication (2) PMR (polymyalgia rheumatica): Current visit: No Status: Acute P\\ Will hold Methotrexate for now. (3) Primary osteoarthritis of left knee: Current visit: No Status: Acute Restart Home medications (4) Obstructive sleep apnea syndrome: Current visit: No Status: Acute Will have respiratory check her CPAP and she can use it tonight Subjective Interval history since last seen: Amanda is doing well this afternoon. Her pain is well controlled with her epidural. She would like something to help her sleep. She normally takes Ambien every night. I told her that I restarted some of her medications, but I will hold off on starting Methotrexate due to its many interactions. She has not yet passed any flatus. She had some other questions but has forgotten. I will have nursing place a pad and pen in her room so she can write down her questions. Exam Resp Effort & Inspection: normal respiratory effort Auscultation: clear to auscultation bilaterally Cardio Rate: regular rate Rhythm: regular rhythm Heart Sounds: no gallops, no murmurs and no rubs GI Inspection: incision (c/d/i) and other (SALVATORE drain with more serosnaguinous fluid and some clots. Drain stripped again.) Palpation: soft and tender (mild along the incision. No guarding or rebound) Auscultation: normal bowel sounds Objective Objective Clinical Data: Abnormal lab results 06/28/18 06/28/18 06/29/18 Range/Units 16:47 16:47 06:30 WBC 19.72 H (4.4-10.8) k/cumm RBC (4.00-5.20) m/cumm Hgb (12.0-15.5) g/dL Hct (36.0-46.0) % MCHC 31.5 L (32.0-36.0) g/dL RDW 15.3 H (11.7-14.6) % Absolute Neutrophils 17.55 H (1.2-6.7) k/cumm Absolute Lymphocytes 0.75 L (1.2-3.4) k/cumm Absolute Monocytes 1.30 H (0.11-0.7) k/cumm Potassium 3.2 L (3.5-5.1) mmol/L Anion Gap 11.4 H (3-11) mmol/L Creatinine 1.10 H (0.55-1.02) mg/dL Glucose 115 H 129 H (70-100) mg/dL Magnesium 1.6 L (1.8-2.4) mg/dL 06/29/18 Range/Units 06:30 WBC 23.95 H (4.4-10.8) k/cumm RBC 3.67 L (4.00-5.20) m/cumm Hgb 10.8 L (12.0-15.5) g/dL Hct 34.7 L (36.0-46.0) % MCHC 31.1 L (32.0-36.0) g/dL RDW 15.2 H (11.7-14.6) % Absolute Neutrophils 21.79 H (1.2-6.7) k/cumm Absolute Lymphocytes 0.96 L (1.2-3.4) k/cumm Absolute Monocytes 1.20 H (0.11-0.7) k/cumm Potassium (3.5-5.1) mmol/L Anion Gap (3-11) mmol/L Creatinine (0.55-1.02) mg/dL Glucose (70-100) mg/dL Magnesium (1.8-2.4) mg/dL Vital Signs Temperature 97.5 F L 06/29/18 11:22 Temperature Source Tympanic 06/29/18 11:22 Pulse 65 06/29/18 11:22 Pulse Rhythm Regular 06/29/18 08:30 Respiratory Rate 18 06/29/18 11:22 Respiratory Effort Non-Labored 06/29/18 08:30 Respiratory Depth Normal 06/29/18 08:30 Respiratory Pattern Normal 06/29/18 08:30 Blood Pressure 116/63 06/29/18 11:22 Pulse Oximetry 96 06/29/18 11:22 Respiratory End-tidal CO2 35 06/28/18 22:10 Oxygen Delivery Method Room Air 06/29/18 11:22 Oxygen Flow Rate 0 06/29/18 11:22 Pain Level 2 06/29/18 11:56 Comment 06/29/18 04:25 Intake & Output 06/28/18 06/29/18 06/29/18 23:59 11:59 23:59 Intake Total 1000 / 1000 1226.667 / 1226.667 60 / 60 Output Total 340 / 340 450 / 450 440 / 440 Balance 660 / 660 776.667 / 776.667 -380 / -380 Weight 177 lb 15.984 oz Intake: IV 1000 / 1000 1066.667 / 1066.667 Oral 110 / 110 60 / 60 Injectate 50 / 50 Right Lower Abdomen 50 / 50 Output: Gastric Drainage 150 / 150 150 / 150 Left Nare 150 / 150 150 / 150 Drainage 40 / 40 40 / 40 Right Lower Abdomen 40 / 40 40 / 40 Urine 150 / 150 300 / 300 250 / 250 Estimated Blood Loss 150 / 150 Other: Urine Color Yellow Yellow Straw Urine Appearance Clear Clear Clear Comment low urine output in fajardo bag. Pt bladder scanned for 100 cc's. catheter advanced to confirm placement. CC notified. Emesis Description None Laboratory Results WBC 23.95 k/cumm (4.4-10.8) H 06/29/18 06:30 RBC 3.67 m/cumm (4.00-5.20) L 06/29/18 06:30 Hgb 10.8 g/dL (12.0-15.5) L 06/29/18 06:30 Hct 34.7 % (36.0-46.0) L 06/29/18 06:30 MCV 94.6 fL (80-95) 06/29/18 06:30 MCH 29.4 pg (27.0-33.0) 06/29/18 06:30 MCHC 31.1 g/dL (32.0-36.0) L 06/29/18 06:30 RDW 15.2 % (11.7-14.6) H 06/29/18 06:30 Plt Count 243 x1000/uL (130-400) 06/29/18 06:30 MPV 10.8 fL (8.0-11.0) 06/29/18 06:30 Immature Gran % 0.0 06/29/18 06:30 Neutrophils % 88.0 06/29/18 06:30 Lymphocytes % 3.0 06/29/18 06:30 Monocytes % 5.0 06/29/18 06:30 Eosinophils % 0.0 06/29/18 06:30 Basophils % 0.0 06/29/18 06:30 Absolute Neutrophils 21.79 k/cumm (1.2-6.7) H 06/29/18 06:30 Band Neutrophils 3.0 % 06/29/18 06:30 Absolute Lymphocytes 0.96 k/cumm (1.2-3.4) L 06/29/18 06:30 Absolute Monocytes 1.20 k/cumm (0.11-0.7) H 06/29/18 06:30 Absolute Eosinophils 0.00 k/cumm (0.0-0.7) 06/29/18 06:30 Absolute Basophils 0.00 k/cumm (0.0-0.2) 06/29/18 06:30 Differential Comment Manual differential 06/29/18 06:30 Atypical Lymphocytes 1 06/29/18 06:30 RBC Morphology See below 06/29/18 06:30 Poikilocytosis 1+ 06/29/18 06:30 Sodium 141 mmol/L (136-145) 06/29/18 06:30 Potassium 4.0 mmol/L (3.5-5.1) D 06/29/18 06:30 Chloride 105 mmol/L (98-107) 06/29/18 06:30 Carbon Dioxide 25.6 mmol/L (21.0-32.0) 06/29/18 06:30 Anion Gap 10.4 mmol/L (3-11) 06/29/18 06:30 BUN 15 mg/dL (7-18) 06/29/18 06:30 Creatinine 1.10 mg/dL (0.55-1.02) H 06/29/18 06:30 Estimated GFR/1.73 m2 48.29 (mL/min/1.73m2) 06/29/18 06:30 Glucose 129 mg/dL (70-100) H 06/29/18 06:30 Calcium 8.5 mg/dL (8.5-10.1) 06/29/18 06:30 Magnesium 2.1 mg/dL (1.8-2.4) 06/29/18 06:30 Total Bilirubin 0.5 mg/dL (0.2-1.0) 06/28/18 16:47 AST 26 U/L (15-37) 06/28/18 16:47 ALT 34 U/L (12-78) 06/28/18 16:47 Alkaline Phosphatase 80 U/L (46-116) 06/28/18 16:47 Troponin I < 0.02 ng/mL (0.00-0.06) 06/28/18 16:47 Total Protein 7.8 g/dL (6.4-8.2) 06/28/18 16:47 Albumin 3.4 g/dL (3.4-5.0) 06/28/18 16:47 Lipase 84 U/L (73-393) 06/28/18 16:47
[2018-06-29] MEDS: Pantoprazole 40 MG VIAL IVP (17:12)
[2018-06-29] MEDS: Enoxaparin 40 MG/0.4 ML SYR SC (17:12)
[2018-06-29] MEDS: Normal Saline Flush 10 ML SYR IVP ×2 (17:13→19:44)
[2018-06-29] MEDS: diphenhydrAMINE 50 MG/ML VIAL 12.5 MG IVP (23:18)
[2018-06-30] VITALS (7 sets, daily range): BP systolic 103–144; BP diastolic 56–71; PULSE 60–88; RESP 17–21; TEMP 36.2–37.6; O2SAT 92–98
[2018-06-30] MEDS: diphenhydrAMINE 50 MG/ML VIAL 12.5 MG IVP ×2 (01:21→23:37)
[2018-06-30] MEDS: Lactated Ringers 1,000 ML 125 ML IV ×2 (01:21→11:42)
[2018-06-30] MEDS: PIPERACILLIN/TAZO 3.375 GM in Normal Saline 50 ML IVPB ×4 (02:12→20:54)
[2018-06-30] MEDS: ACETAMINOPHEN 1,000 MG/100 ML BTL 400 MG IVPB (02:54)
[2018-06-30 07:26] LABS: Abs Immature Grans 0.03 k/cumm (0.0-0.09); Absolute Basophil Count 0.03 k/cumm (0.0-0.2); Absolute Eosinophil Count 0.07 k/cumm (0.0-0.7); Absolute Lymphocyte Count 0.97 k/cumm (1.2-3.4); Absolute Monocyte Count 1.12 k/cumm (0.11-0.7); Absolute Neutrophil Count 10.86 k/cumm (1.2-6.7); Basophils % 0.2; Eosinophils % 0.5; HCT 27.3 % (36.0-46.0); HGB 8.2 g/dL (12.0-15.5); Immature Grans % 0.2; Lymphocytes % 7.4; Mean Corpuscular Hemoglobin 28.9 pg (27.0-33.0); Mean Corpuscular Volume 96.1 fL (80-95); Mean Platelet Volume 10.6 fL (8.0-11.0); Monocytes % 8.6; Neutrophils % 83.1; Platelet Count 186 x1000/uL (130-400); RBC 2.84 m/cumm (4.00-5.20); RBC Distribution Width 15.1 % (11.7-14.6); White Blood Cell Count 13.07 k/cumm (4.4-10.8)
[2018-06-30 07:34] LABS: Anion Gap 8.9 mmol/L (3-11); BUN 18 mg/dL (7-18); CO2 28.1 mmol/L (21.0-32.0); CREATININE 1.03 mg/dL (0.55-1.02); Calcium 7.9 mg/dL (8.5-10.1); Chloride 109 mmol/L (98-107); Glucose 73 mg/dL (70-100); Potassium 3.6 mmol/L (3.5-5.1); Sodium 146 mmol/L (136-145)
[2018-06-30] MEDS: methylPREDNISolone 4 MG TAB PO (11:14)
[2018-06-30] MEDS: Nystatin POWDER 60 GM JAR TP (11:14)
--- NOTE | 2018-06-30 11:40 | PDOC.CMPRO ---
- If Service Date Differs Date of service: 06/30/18 Time of Service: 11:40 Care Management Progress Note S/O: Amanda is lying in bed when CM visits this morning. She is engaged in conversation, makes good eye contact, and is talkative. Amanda reports that she is tired (she takes Ambien at HS at home; 20+ years) and is not getting it here. Amanda reports that she is having increased abdominal pain in comparison with yesterday (feels like heartburn) but is not nauseous or vomiting. She is passing flatus. Amanda's NG tube is clamped and her fajardo remains in place. She has been up with nursing, utilizing a walker and standby assist. Amanda reported that her granddaughter will be staying at her home over the weekend so can assist her following discharge. A: 77 year old female with a perforated colon d/t complications from colonoscopy. P: Pat will discharge home when medically ready per MD. Anticipate patient will discharge with no services and follow up with his PCP. Amanda will transport via private vehicle with her , Ed. CM will continue to offer support to patient, family, and care team regarding discharge planning and disposition.
[2018-06-30] MEDS: Ketorolac 15 MG/ML VIAL IVP ×2 (14:34→23:53)
[2018-06-30] MEDS: DEXTROSE 5%-0.45% SALINE 1,000 ML 125 ML IV ×2 (14:34→23:07)
--- NOTE | 2018-06-30 15:38 | ANES_ITS ---
Date of service: 06/30/18 Time of Service: 15:36 Anesthesia Note Report Anesthesia Note: Daily Epidural Note: Asked to see Pat for concern that epidural may not be adequately covering pain. Pat is lying in bed watching TV. She is conversive and seems to be in no acute distress. She did receive a recent dose of Toradol. Pat states her pain is a 1/10 and has been between a 1-3 /10 all day even while moving/ambulating. Motor intact and no sensory deficit in lower extremities. Epidural rate continues at 10ml/hour with PCEA dose of 5ml every 15 minutes. Epidural site is clean/dry/intact. It does appear that epidural catheter has migrated out 1 cm and is currently at 9cm, which should still allow 3-4cm left in the space. Amanda was able to sit up with my assist and did not moan or grimace during this. Plan is to maintain epidural at current rate and nurses advised to call if they have any concern or feel the epidural is not adequately managing pain.
--- NOTE | 2018-06-30 15:44 | PGE_ITS ---
Documented by User: NEO Ramirez 06/30/18 15:49 Date of Service Date of service: 06/30/18 Time of Service: 15:33 Assessment and Plan (1) Perforation of colon as colonoscopy complication: Current visit: Yes Status: Acute A\\ POD#2 from exploratory laparotomy and bowel resection. Clamped NG tube x 4 hours with 15mL residuals. Will remove NG tube and start sips of clear liquids. P\\ 1. Pain- Well controlled on Epidural and toradol as needed as well as aspirin as needed 2. Nutrition: Clear Liquid, SIPS only. 3. Remove NG tube. 4. Activity: Start ambulating. 5. DVT prophylaxis- on Lovenox 6. Leukocytosis- continue Zosyn. Starting to trend down. 7. Hypothyroidism- start Iv levothyroxin 8. Insomnia- Try Benadryl 12.5 mg Iv and may repeat x 1 9. Disposition: Home once taking PO and pain controlled on oral pain medication. (2) PMR (polymyalgia rheumatica): Current visit: No Status: Acute P\\ Will hold Methotrexate for now. (3) Primary osteoarthritis of left knee: Current visit: No Status: Acute Restart Home medications (4) Obstructive sleep apnea syndrome: Current visit: No Status: Acute Will have respiratory check her CPAP and she can use it tonight Subjective Interval history since last seen: Mrs. Manuel reports that she is feeling okay . She reports that her pain has been at most 4/10PL and her pain is in her abdomen. She reported some mild nausea this afternoon, which has since resolved. She reports that she has been passing some flatus. She complained of having a sore throat. She has been tolerating her ice chips. Exam Const General: cooperative and no acute distress Orientation: alert and oriented x3 Resp Effort & Inspection: normal respiratory effort Auscultation: clear to auscultation bilaterally and no wheezes Cardio Jugular venous pressure: no JVD Rate: regular rate Rhythm: regular rhythm Heart Sounds: S1 normal, S2 normal and no murmurs GI Inspection: non-distended and incision (Along midline. Dressing in place with drain in place.) Palpation: soft and tender in the RUQ; with no rebound tenderness Objective Objective Clinical Data: Abnormal lab results 06/30/18 06/30/18 Range/Units 06:30 06:30 WBC 13.07 H D (4.4-10.8) k/cumm RBC 2.84 L (4.00-5.20) m/cumm Hgb 8.2 L D (12.0-15.5) g/dL Hct 27.3 L D (36.0-46.0) % MCV 96.1 H (80-95) fL MCHC 30.0 L (32.0-36.0) g/dL RDW 15.1 H (11.7-14.6) % Absolute Neutrophils 10.86 H (1.2-6.7) k/cumm Absolute Lymphocytes 0.97 L (1.2-3.4) k/cumm Absolute Monocytes 1.12 H (0.11-0.7) k/cumm Sodium 146 H (136-145) mmol/L Chloride 109 H (98-107) mmol/L Creatinine 1.03 H (0.55-1.02) mg/dL Calcium 7.9 L (8.5-10.1) mg/dL Vital Signs Temperature 36.2 C L 06/30/18 11:50 Temperature Source Tympanic 06/30/18 11:50 Pulse 88 06/30/18 11:50 Pulse Rhythm Regular 06/30/18 12:42 Respiratory Rate 18 06/30/18 11:50 Respiratory Effort 06/30/18 12:42 Respiratory Depth Normal 06/30/18 12:42 Respiratory Pattern Normal 06/30/18 12:42 Blood Pressure 144/70 H 06/30/18 11:50 Pulse Oximetry 97 06/30/18 11:50 Respiratory End-tidal CO2 35 06/28/18 22:10 Oxygen Delivery Method Room Air 06/30/18 11:50 Oxygen Flow Rate 0 06/30/18 11:50 Pain Level 3 06/30/18 14:34 Comment 06/30/18 03:40 Intake & Output 06/29/18 06/30/18 06/30/18 23:59 11:59 23:59 Intake Total 1534.583 / 0405.356 6294.75 / 1898.75 408.333 / 408.333 Output Total 765 / 765 850 / 850 Balance 769.583 / 565.428 4261.75 / 1048.75 408.333 / 408.333 Intake: IV 1414.583 / 3472.263 9247.75 / 1818.75 408.333 / 408.333 Oral 120 / 120 50 / 50 Injectate 30 / 30 Right Lower Abdomen 30 / 30 Output: Gastric Drainage 450 / 450 150 / 150 Left Nare 450 / 450 150 / 150 Drainage 65 / 65 100 / 100 Right Lower Abdomen 65 / 65 100 / 100 Urine 250 / 250 600 / 600 Other: Urine Color Light Bonnie Yellow Urine Appearance Clear Clear Comment fajardo intact and draining Laboratory Results WBC 13.07 k/cumm (4.4-10.8) H D 06/30/18 06:30 RBC 2.84 m/cumm (4.00-5.20) L 06/30/18 06:30 Hgb 8.2 g/dL (12.0-15.5) L D 06/30/18 06:30 Hct 27.3 % (36.0-46.0) L D 06/30/18 06:30 MCV 96.1 fL (80-95) H 06/30/18 06:30 MCH 28.9 pg (27.0-33.0) 06/30/18 06:30 MCHC 30.0 g/dL (32.0-36.0) L 06/30/18 06:30 RDW 15.1 % (11.7-14.6) H 06/30/18 06:30 Plt Count 186 x1000/uL (130-400) 06/30/18 06:30 MPV 10.6 fL (8.0-11.0) 06/30/18 06:30 Immature Gran % 0.2 06/30/18 06:30 Neutrophils % 83.1 06/30/18 06:30 Lymphocytes % 7.4 06/30/18 06:30 Monocytes % 8.6 06/30/18 06:30 Eosinophils % 0.5 06/30/18 06:30 Basophils % 0.2 06/30/18 06:30 Absolute Neutrophils 10.86 k/cumm (1.2-6.7) H 06/30/18 06:30 Band Neutrophils 3.0 % 06/29/18 06:30 Absolute Lymphocytes 0.97 k/cumm (1.2-3.4) L 06/30/18 06:30 Absolute Monocytes 1.12 k/cumm (0.11-0.7) H 06/30/18 06:30 Absolute Eosinophils 0.07 k/cumm (0.0-0.7) 06/30/18 06:30 Absolute Basophils 0.03 k/cumm (0.0-0.2) 06/30/18 06:30 Differential Comment Manual differential 06/29/18 06:30 Atypical Lymphocytes 1 06/29/18 06:30 RBC Morphology See below 06/29/18 06:30 Poikilocytosis 1+ 06/29/18 06:30 Sodium 146 mmol/L (136-145) H 06/30/18 06:30 Potassium 3.6 mmol/L (3.5-5.1) 06/30/18 06:30 Chloride 109 mmol/L (98-107) H 06/30/18 06:30 Carbon Dioxide 28.1 mmol/L (21.0-32.0) 06/30/18 06:30 Anion Gap 8.9 mmol/L (3-11) 06/30/18 06:30 BUN 18 mg/dL (7-18) 06/30/18 06:30 Creatinine 1.03 mg/dL (0.55-1.02) H 06/30/18 06:30 Estimated GFR/1.73 m2 52.10 (mL/min/1.73m2) 06/30/18 06:30 Glucose 73 mg/dL (70-100) D 06/30/18 06:30 Calcium 7.9 mg/dL (8.5-10.1) L 06/30/18 06:30 Magnesium 2.1 mg/dL (1.8-2.4) 06/29/18 06:30 Total Bilirubin 0.5 mg/dL (0.2-1.0) 06/28/18 16:47 AST 26 U/L (15-37) 06/28/18 16:47 ALT 34 U/L (12-78) 06/28/18 16:47 Alkaline Phosphatase 80 U/L (46-116) 06/28/18 16:47 Troponin I < 0.02 ng/mL (0.00-0.06) 06/28/18 16:47 Total Protein 7.8 g/dL (6.4-8.2) 06/28/18 16:47 Albumin 3.4 g/dL (3.4-5.0) 06/28/18 16:47 Lipase 84 U/L (73-393) 06/28/18 16:47
[2018-06-30] MEDS: Pantoprazole 40 MG VIAL IVP (18:15)
[2018-06-30] MEDS: Enoxaparin 40 MG/0.4 ML SYR SC (18:16)
[2018-06-30] MEDS: Normal Saline Flush 10 ML SYR IVP ×2 (18:16→23:38)
[2018-07-01] VITALS (7 sets, daily range): BP systolic 106–149; BP diastolic 61–76; PULSE 56–62; RESP 17–18; TEMP 36.1–37.2; O2SAT 88–98
[2018-07-01] MEDS: ACETAMINOPHEN 1,000 MG/100 ML BTL 400 MG IVPB (01:49)
[2018-07-01] MEDS: PIPERACILLIN/TAZO 3.375 GM in Normal Saline 50 ML IVPB ×4 (02:30→20:54)
[2018-07-01 07:15] LABS: Abs Immature Grans 0.03 k/cumm (0.0-0.09); Absolute Basophil Count 0.02 k/cumm (0.0-0.2); Absolute Lymphocyte Count 1.22 k/cumm (1.2-3.4); Absolute Monocyte Count 1.15 k/cumm (0.11-0.7); Basophils % 0.2; HCT 25.8 % (36.0-46.0); HGB 7.9 g/dL (12.0-15.5); Immature Grans % 0.3; Lymphocytes % 10.4; Mean Corp. HGB Concentration 30.6 g/dL (32.0-36.0); Mean Corpuscular Hemoglobin 29.3 pg (27.0-33.0); Mean Corpuscular Volume 95.6 fL (80-95); Mean Platelet Volume 10.2 fL (8.0-11.0); Monocytes % 9.8; Neutrophils % 77.3; Platelet Count 206 x1000/uL (130-400); White Blood Cell Count 11.75 k/cumm (4.4-10.8)
[2018-07-01 07:23] LABS: Absolute Eosinophil Count 0.24 k/cumm (0.0-0.7); Absolute Neutrophil Count 9.08 k/cumm (1.2-6.7)
[2018-07-01 07:26] LABS: Anion Gap 7.2 mmol/L (3-11); BUN 13 mg/dL (7-18); CO2 25.8 mmol/L (21.0-32.0); CREATININE 0.96 mg/dL (0.55-1.02); Calcium 7.6 mg/dL (8.5-10.1); Chloride 106 mmol/L (98-107); Estimated GFR 56.51 (mL/min/1.73m2); Glucose 110 mg/dL (70-100); Sodium 139 mmol/L (136-145)
[2018-07-01 07:47] LABS: Potassium 2.9 mmol/L (3.5-5.1)
--- NOTE | 2018-07-01 08:55 | W.PM.PROGNOT ---
Date of Service Date of service: 07/01/18 Time of Service: 08:55 Assessment and Plan (1) Perforation of colon as colonoscopy complication: Current visit: Yes Status: Acute A\\ POD#3 s/p exploratory laparotomy and bowel resection P\\ 1. Pain- Well controlled on Epidural and toradol as needed as well as tylenol as needed 2. Nutrition: Will back off to clear liquids again as she has had no flatus today and her BS are high pitched 3. Activity: Continue ambulating. 4. DVT prophilaxis- on Lovenox 5. Leukocytosis- continue Zosyn. Improving. Will give 10 days of antibiotics 6. Hypothyroidism- start po levo 7. Insomnia- Try Benadryl 12.5 mg Iv and may repeat x 1 8. Anemia- dilutional? no dizziness. Will recheck at 1600 today. May need a transfusion 9. Hypokalemia- will replace 4. Disposition: Home once taking PO and pain controlled on oral pain medication (2) PMR (polymyalgia rheumatica): Current visit: No Status: Acute P\\ Will hold Methotrexate for now. (3) Primary osteoarthritis of left knee: Current visit: No Status: Acute Restart Home medications (4) Obstructive sleep apnea syndrome: Current visit: No Status: Acute Will have respiratory check her CPAP and she can use it tonight Subjective Interval history since last seen: doing well. No nausea No Flatus today. Tolerated clear liquids yesterday. Was given a soft diet this am. No BM Exam Resp Effort & Inspection: normal respiratory effort Auscultation: diminished lung sounds bilaterally (bases) Cardio Rate: regular rate Rhythm: regular rhythm Heart Sounds: no gallops, no murmurs and no rubs GI Palpation: soft and tender (along the incision. No guarding or rebound) Auscultation: high-pitched sounds Objective Objective Clinical Data: Abnormal lab results 07/01/18 07/01/18 Range/Units 06:30 06:30 WBC 11.75 H (4.4-10.8) k/cumm RBC 2.70 L (4.00-5.20) m/cumm Hgb 7.9 L (12.0-15.5) g/dL Hct 25.8 L (36.0-46.0) % MCV 95.6 H (80-95) fL MCHC 30.6 L (32.0-36.0) g/dL RDW 15.0 H (11.7-14.6) % Absolute Neutrophils 9.08 H (1.2-6.7) k/cumm Absolute Monocytes 1.15 H (0.11-0.7) k/cumm Potassium 2.9 L* (3.5-5.1) mmol/L Glucose 110 H (70-100) mg/dL Calcium 7.6 L (8.5-10.1) mg/dL Vital Signs Temperature 97.7 F 07/01/18 03:45 Temperature Source Tympanic 07/01/18 03:45 Pulse 56 L 07/01/18 03:45 Pulse Rhythm Regular 07/01/18 03:45 Respiratory Rate 18 07/01/18 03:45 Respiratory Effort 07/01/18 03:45 Respiratory Depth Normal 07/01/18 03:45 Respiratory Pattern Normal 07/01/18 03:45 Blood Pressure 106/63 07/01/18 03:45 Pulse Oximetry 91 L 07/01/18 03:45 Respiratory End-tidal CO2 35 06/28/18 22:10 Oxygen Delivery Method Room Air 07/01/18 03:45 Oxygen Flow Rate 0 07/01/18 03:45 Pain Level 0 07/01/18 03:45 Comment 06/30/18 03:40 Intake & Output 06/30/18 06/30/18 07/01/18 11:59 23:59 11:59 Intake Total 1898.75 / 4122.499 2223.749 / 4122.499 520.834 / 520.834 Output Total 850 / 1318 468 / 1318 555 / 555 Balance 1048.75 / 2804.499 1755.749 / 2804.499 -34.166 / -34.166 Intake: IV 1818.75 / 3262.499 1443.749 / 3262.499 520.834 / 520.834 Oral 50 / 830 780 / 830 Injectate 30 / 30 Right Lower Abdomen 30 / 30 Output: Gastric Drainage 150 / 150 Left Nare 150 / 150 Drainage 100 / 168 68 / 168 30 / 30 Right Lower Abdomen 100 / 168 68 / 168 30 / 30 Urine 600 / 1000 400 / 1000 525 / 525 Other: Urine Color Yellow Straw Yellow Urine Appearance Clear Mucous Threads Clear Laboratory Results WBC 11.75 k/cumm (4.4-10.8) H 07/01/18 06:30 RBC 2.70 m/cumm (4.00-5.20) L 07/01/18 06:30 Hgb 7.9 g/dL (12.0-15.5) L 07/01/18 06:30 Hct 25.8 % (36.0-46.0) L 07/01/18 06:30 MCV 95.6 fL (80-95) H 07/01/18 06:30 MCH 29.3 pg (27.0-33.0) 07/01/18 06:30 MCHC 30.6 g/dL (32.0-36.0) L 07/01/18 06:30 RDW 15.0 % (11.7-14.6) H 07/01/18 06:30 Plt Count 206 x1000/uL (130-400) 07/01/18 06:30 MPV 10.2 fL (8.0-11.0) 07/01/18 06:30 Immature Gran % 0.3 07/01/18 06:30 Neutrophils % 77.3 07/01/18 06:30 Lymphocytes % 10.4 07/01/18 06:30 Monocytes % 9.8 07/01/18 06:30 Eosinophils % 2.0 07/01/18 06:30 Basophils % 0.2 07/01/18 06:30 Absolute Neutrophils 9.08 k/cumm (1.2-6.7) H 07/01/18 06:30 Band Neutrophils 3.0 % 06/29/18 06:30 Absolute Lymphocytes 1.22 k/cumm (1.2-3.4) 07/01/18 06:30 Absolute Monocytes 1.15 k/cumm (0.11-0.7) H 07/01/18 06:30 Absolute Eosinophils 0.24 k/cumm (0.0-0.7) 07/01/18 06:30 Absolute Basophils 0.02 k/cumm (0.0-0.2) 07/01/18 06:30 Differential Comment Manual differential 06/29/18 06:30 Atypical Lymphocytes 1 06/29/18 06:30 RBC Morphology See below 06/29/18 06:30 Poikilocytosis 1+ 06/29/18 06:30 Sodium 139 mmol/L (136-145) 07/01/18 06:30 Potassium 2.9 mmol/L (3.5-5.1) L* 07/01/18 06:30 Chloride 106 mmol/L (98-107) 07/01/18 06:30 Carbon Dioxide 25.8 mmol/L (21.0-32.0) 07/01/18 06:30 Anion Gap 7.2 mmol/L (3-11) 07/01/18 06:30 BUN 13 mg/dL (7-18) 07/01/18 06:30 Creatinine 0.96 mg/dL (0.55-1.02) 07/01/18 06:30 Estimated GFR/1.73 m2 56.51 (mL/min/1.73m2) 07/01/18 06:30 Glucose 110 mg/dL (70-100) H 07/01/18 06:30 Calcium 7.6 mg/dL (8.5-10.1) L 07/01/18 06:30 Magnesium 2.1 mg/dL (1.8-2.4) 06/29/18 06:30 Total Bilirubin 0.5 mg/dL (0.2-1.0) 06/28/18 16:47 AST 26 U/L (15-37) 06/28/18 16:47 ALT 34 U/L (12-78) 06/28/18 16:47 Alkaline Phosphatase 80 U/L (46-116) 06/28/18 16:47 Troponin I < 0.02 ng/mL (0.00-0.06) 06/28/18 16:47 Total Protein 7.8 g/dL (6.4-8.2) 06/28/18 16:47 Albumin 3.4 g/dL (3.4-5.0) 06/28/18 16:47 Lipase 84 U/L (73-393) 06/28/18 16:47
[2018-07-01] MEDS: methylPREDNISolone 4 MG TAB PO (09:10)
--- NOTE | 2018-07-01 09:56 | W.PM.PROGNOT ---
Documented by User: NEO Ramirez 07/01/18 10:01 Date of Service Date of service: 07/01/18 Time of Service: 09:56 Assessment and Plan (1) Perforation of colon as colonoscopy complication: Current visit: Yes Status: Acute A// POD #3. Pain continues to be well managed. She is ambulating several times a day with the nursing staff. She denies nausea, vomiting. P\\ 1. Pain- Well controlled on Epidural and toradol as needed as well as aspirin as needed 2. Nutrition: Progress to soft diet today 3. Activity: Ambulate a minimum of 3x/day 4. DVT prophylaxis- on Lovenox 5. Leukocytosis- continue Zosyn. Starting to trend down. 6. Hypothyroidism- Continue Iv levothyroxin 7. Insomnia- Try Benadryl 12.5 mg Iv and may repeat x 1 8. Disposition: Home once taking PO and pain controlled on oral pain medication. (2) PMR (polymyalgia rheumatica): Current visit: No Status: Acute P\\ Will hold Methotrexate for now. (3) Primary osteoarthritis of left knee: Current visit: No Status: Acute Restart Home medications (4) Obstructive sleep apnea syndrome: Current visit: No Status: Acute Will have respiratory check her CPAP and she can use it tonight Subjective Interval history since last seen: The patient is feeling better today. She reports that she has been ambulating with nursing staff and tolerating clear liquids. No complaints of nausea or vomiting. She feels that her flatus has decreased. Exam Const General: cooperative and comfortable Orientation: alert and oriented x3 Resp Effort & Inspection: normal respiratory effort Auscultation: clear to auscultation bilaterally Cardio Rate: regular rate Rhythm: regular rhythm Heart Sounds: S1 normal, S2 normal and no murmurs GI Palpation: soft, no guarding and tender (Mild ) Auscultation: normal bowel sounds Objective Objective Clinical Data: Abnormal lab results 07/01/18 07/01/18 Range/Units 06:30 06:30 WBC 11.75 H (4.4-10.8) k/cumm RBC 2.70 L (4.00-5.20) m/cumm Hgb 7.9 L (12.0-15.5) g/dL Hct 25.8 L (36.0-46.0) % MCV 95.6 H (80-95) fL MCHC 30.6 L (32.0-36.0) g/dL RDW 15.0 H (11.7-14.6) % Absolute Neutrophils 9.08 H (1.2-6.7) k/cumm Absolute Monocytes 1.15 H (0.11-0.7) k/cumm Potassium 2.9 L* (3.5-5.1) mmol/L Glucose 110 H (70-100) mg/dL Calcium 7.6 L (8.5-10.1) mg/dL Vital Signs Temperature 36.5 C 07/01/18 03:45 Temperature Source Tympanic 07/01/18 03:45 Pulse 56 L 07/01/18 03:45 Pulse Rhythm Regular 07/01/18 03:45 Respiratory Rate 18 07/01/18 03:45 Respiratory Effort 07/01/18 03:45 Respiratory Depth Normal 07/01/18 03:45 Respiratory Pattern Normal 07/01/18 03:45 Blood Pressure 106/63 07/01/18 03:45 Pulse Oximetry 91 L 07/01/18 03:45 Respiratory End-tidal CO2 35 06/28/18 22:10 Oxygen Delivery Method Room Air 07/01/18 03:45 Oxygen Flow Rate 0 07/01/18 03:45 Pain Level 0 07/01/18 03:45 Comment 06/30/18 03:40 Intake & Output 06/30/18 06/30/18 07/01/18 11:59 23:59 11:59 Intake Total 1898.75 / 4122.499 2223.749 / 4122.499 520.834 / 520.834 Output Total 850 / 1318 468 / 1318 585 / 585 Balance 1048.75 / 2804.499 1755.749 / 2804.499 -64.166 / -64.166 Intake: IV 1818.75 / 3262.499 1443.749 / 3262.499 520.834 / 520.834 Oral 50 / 830 780 / 830 Injectate 30 / 30 Right Lower Abdomen 30 / 30 Output: Gastric Drainage 150 / 150 Left Nare 150 / 150 Drainage 100 / 168 68 / 168 60 / 60 Right Lower Abdomen 100 / 168 68 / 168 60 / 60 Urine 600 / 1000 400 / 1000 525 / 525 Other: Urine Color Yellow Straw Yellow Urine Appearance Clear Mucous Threads Clear Laboratory Results WBC 11.75 k/cumm (4.4-10.8) H 07/01/18 06:30 RBC 2.70 m/cumm (4.00-5.20) L 07/01/18 06:30 Hgb 7.9 g/dL (12.0-15.5) L 07/01/18 06:30 Hct 25.8 % (36.0-46.0) L 07/01/18 06:30 MCV 95.6 fL (80-95) H 07/01/18 06:30 MCH 29.3 pg (27.0-33.0) 07/01/18 06:30 MCHC 30.6 g/dL (32.0-36.0) L 07/01/18 06:30 RDW 15.0 % (11.7-14.6) H 07/01/18 06:30 Plt Count 206 x1000/uL (130-400) 07/01/18 06:30 MPV 10.2 fL (8.0-11.0) 07/01/18 06:30 Immature Gran % 0.3 07/01/18 06:30 Neutrophils % 77.3 07/01/18 06:30 Lymphocytes % 10.4 07/01/18 06:30 Monocytes % 9.8 07/01/18 06:30 Eosinophils % 2.0 07/01/18 06:30 Basophils % 0.2 07/01/18 06:30 Absolute Neutrophils 9.08 k/cumm (1.2-6.7) H 07/01/18 06:30 Band Neutrophils 3.0 % 06/29/18 06:30 Absolute Lymphocytes 1.22 k/cumm (1.2-3.4) 07/01/18 06:30 Absolute Monocytes 1.15 k/cumm (0.11-0.7) H 07/01/18 06:30 Absolute Eosinophils 0.24 k/cumm (0.0-0.7) 07/01/18 06:30 Absolute Basophils 0.02 k/cumm (0.0-0.2) 07/01/18 06:30 Differential Comment Manual differential 06/29/18 06:30 Atypical Lymphocytes 1 06/29/18 06:30 RBC Morphology See below 06/29/18 06:30 Poikilocytosis 1+ 06/29/18 06:30 Sodium 139 mmol/L (136-145) 07/01/18 06:30 Potassium 2.9 mmol/L (3.5-5.1) L* 07/01/18 06:30 Chloride 106 mmol/L (98-107) 07/01/18 06:30 Carbon Dioxide 25.8 mmol/L (21.0-32.0) 07/01/18 06:30 Anion Gap 7.2 mmol/L (3-11) 07/01/18 06:30 BUN 13 mg/dL (7-18) 07/01/18 06:30 Creatinine 0.96 mg/dL (0.55-1.02) 07/01/18 06:30 Estimated GFR/1.73 m2 56.51 (mL/min/1.73m2) 07/01/18 06:30 Glucose 110 mg/dL (70-100) H 07/01/18 06:30 Calcium 7.6 mg/dL (8.5-10.1) L 07/01/18 06:30 Magnesium 2.1 mg/dL (1.8-2.4) 06/29/18 06:30 Total Bilirubin 0.5 mg/dL (0.2-1.0) 06/28/18 16:47 AST 26 U/L (15-37) 06/28/18 16:47 ALT 34 U/L (12-78) 06/28/18 16:47 Alkaline Phosphatase 80 U/L (46-116) 06/28/18 16:47 Troponin I < 0.02 ng/mL (0.00-0.06) 06/28/18 16:47 Total Protein 7.8 g/dL (6.4-8.2) 06/28/18 16:47 Albumin 3.4 g/dL (3.4-5.0) 06/28/18 16:47 Lipase 84 U/L (73-393) 06/28/18 16:47 Documented by User: Reji Rivas DO 07/01/18 14:48 Assessment and Plan (1) Perforation of colon as colonoscopy complication: Current visit: Yes Status: Acute Patient seen and chart reviewed, plan discussed with Maggi Castrejon PA-C.
[2018-07-01] MEDS: Levothyroxine 100 MCG TAB PO (10:04)
[2018-07-01] MEDS: POTASSIUM CHLORIDE 10 MEQ/100 ML BAG 100 MEQ IVPB ×4 (10:04→18:50)
--- NOTE | 2018-07-01 10:34 | PDOC.CMPRO ---
- If Service Date Differs Date of service: 07/01/18 Time of Service: 10:34 Care Management Progress Note S/O: Amanda is sitting in her chair when CM visits this morning. She is engaged in conversation, makes good eye contact, and is talkative. Amanda reports that her abdominal pain has improved and denies nausea and vomiting. She is passing a little flatus, per her nurse, however the MD has elected to slow her diet to clear liquids at this time. Amanda's fajardo catheter remains in place and the NG tube has been d/c'ed. Amanda continues to have an epidural of fentanyl for pain management. She has been up with nursing, utilizing a walker and standby assist. A: 77 year old female with a perforated colon d/t complications from colonoscopy. P: Pat will discharge home when medically ready per MD. Anticipate patient will discharge with no services and follow up with his PCP. Amanda will transport via private vehicle with her , Ed. CM will continue to offer support to patient, family, and care team regarding discharge planning and disposition.
--- NOTE | 2018-07-01 10:41 | CMPROGNOTE_ITS ---
- If Service Date Differs Date of service: 07/01/18 Time of Service: 10:34 Care Management Progress Note S/O: Amanda is sitting in her chair when CM visits this morning. She is engaged in conversation, makes good eye contact, and is talkative. Amanda reports that her abdominal pain has improved and denies nausea and vomiting. She is passing a little flatus, per her nurse, however the MD has elected to slow her diet to clear liquids at this time. Amanda's fajardo catheter remains in place and the [facility] be has been d/c'ed. Amanda continues to have an epidural of fentanyl for pain management. She has been up with nursing, utilizing a walker and standby assist. A: 77 year old female with a perforated colon d/t complications from colonoscopy. P: Pat will discharge home when medically ready per MD. Anticipate patient will discharge with no services and follow up with his PCP. Amanda will transport via private vehicle with her , Ed. CM will continue to offer support to patient, family, and care team regarding discharge planning and disposition.
--- NOTE | 2018-07-01 12:19 | PHARADMIT ---
Addendum entered by Aide Bowman 07/04/18 12:31: Pharmacy Note Subjective advance diet to normal diet today per progress note Objective BP-167/75 HR-54 other VS okay mag-1.4 Assessment IV mag replacement ordered benadryl elixir ordered PRN last night for itching or sleep IV fluids changed to lactated ringers to KVO Plan continue to watch VS, pain control, labs and for med changes Original Note: Addendum entered by Aide Bowman 07/03/18 11:26: Pharmacy Note Subjective bowel function returning per progress note Objective BP-176/65 other VS okay h/h-8.7/28.3(up) pain-5/10 Assessment epidural stopped this morning ketorolac discontinued, oxycodone and ibuprofen ordered PRN for pain enoxaparin resumes today Plan continue to watch VS, pain control, labs and for med changes Original Note: Addendum entered by Génesis Florian 07/02/18 10:03: Pharmacy Note Subjective will be discharged when pain controlled on PO pain meds Objective no vs yet, H/H 7.7/25.2, Assessment pip/tazo continues, epidural continues home meds not ordered Vit-C, ASA-ec, Finacea, Bupropion, Lotrimin, Fergon, FolicAcid, MTX, Zantac Plan follow for pain control, expect change to PO pain meds when appropriate Original Note: Admission Pharmacy Clinical Review PERFORATED BOWEL Code Status Full Code Current Weight Wgt- 80.7 kg Renally Cleared and Narrow Therapeutic Index Meds CrCl~ 37.6mL/min Meds-OK QTc Value / Action Taken QTc-466 (Zosyn, Zofran, Protonix, Benadryl) BP Control, Fever BP-106/60 Tmax- 37.6C Electrolytes reviewed Na- 139 K+2.9 Mag-2.1 DVT Prophylaxis Lovenox Opiate Usage / Scheduled Bowel Regimen Ordered Yes No (NPO) Plt/SCr for Heparin / Enoxaparin Plts-206 SCr-0.96 INR for Warfarin ma H/H stable, WBC/Bands H&H-7.9/25.8 WBC-11.75 Antibiotic appropriateness Zosyn Cultures and Sensitivities none Surgical ABX d/c within 24 hr na DM control / Insulin Dosing BG-110 Heart Failure (Check EF%) (NEO's, B-Block, Diuretics) Lasix, IV to PO Switch No Home Meds Reviewed Yes Home Meds Not Ordered Vit-C, ASA-ec, Finacea, Bupropion, Lotrimin, Fergon, FolicAcid, MTX, Nystatin Powdr, Zantac Comments
[2018-07-01] MEDS: POTASSIUM CHLORIDE/D5-0.45NACL 1,000 ML 75 MEQ IV (14:25)
--- NOTE | 2018-07-01 14:48 | CHAPLAIN ---
Riddhi was resting in bed when I visited. She told me her diet had advanced, but is back to clear liquids again to make sure things are working ok. Her works at [employer], but will likely visit later this evening. Rdidhi seems to be comfortable being here. She is looking forward to a visit from her grandson and his friends to [facility]. Riddhi is [employer] and I let her know that the rewinder will likely visit tomorrow.
--- NOTE | 2018-07-01 15:19 | PDOC.ANES ---
Date of service: 07/01/18 Time of Service: 15:20 Anesthesia Note Report Anesthesia Note: Saw Pat up in the hallway walking and conversive. I assessed epidural in her room. Dressing noted to be peeling up at lower right corner. Tape removed and dressing reinforced. Catheter depth at 9cm at skin. Pain relief good with 1/10 pain at times. No sensory or motor deficit in legs. Also noted area of skin at the lower right dressing border that was red with superficial skin layer removed and red skin exposed. Nurse notified and mepilex dressing applied. Area is [id number]. No changes in epidural rate. Pt. is receiving lovenox daily which will need to be held prior to pulling catheter. Plan is to remove catheter either tomorrow or the next day once her bowel function improves.
--- NOTE | 2018-07-01 15:26 | ANES_ITS ---
Date of service: 07/01/18 Time of Service: 15:20 Anesthesia Note Report Anesthesia Note: Saw Pat up in the hallway walking and conversive. I assessed epidural in her room. Dressing noted to be peeling up at lower right corner. Tape removed and dressing reinforced. Catheter depth at 9cm at skin. Pain relief good with 1/10 pain at times. No sensory or motor deficit in legs. Also noted area of skin at the lower right dressing border that was red with superficial skin layer removed and red skin exposed. Nurse notified and mepilex dressing applied. Area is [id number]. No changes in epidural rate. Pt. is receiving lovenox daily which will need to be held prior to pulling catheter. Plan is to remove catheter either tomorrow or the next day once her bowel function improves.
--- NOTE | 2018-07-01 15:56 | W.PM.PROGNOT ---
Date of Service Date of service: 07/01/18 Time of Service: 16:02 Assessment and Plan (1) Perforation of colon as colonoscopy complication: (2) Hypokalemia: (3) Anemia: Qualifiers: Anemia type: iron deficiency Iron deficiency anemia type: other iron deficiency Qualified Code(s): D50.8 - Other iron deficiency anemias
[2018-07-01 16:31] LABS: HCT 28.7 % (36.0-46.0)
[2018-07-01 16:34] LABS: Potassium 3.5 mmol/L (3.5-5.1)
[2018-07-01] MEDS: Normal Saline Flush 10 ML SYR IVP (17:43)
[2018-07-01] MEDS: Pantoprazole 40 MG VIAL IVP (17:43)
[2018-07-01] MEDS: Enoxaparin 40 MG/0.4 ML SYR SC (17:44)
[2018-07-01] MEDS: Zolpidem 6.25 MG TABCR 12.5 MG PO (23:35)
[2018-07-01] MEDS: Mirtazapine 15 MG TAB 7.5 MG PO (23:36)
[2018-07-02] MEDS: PIPERACILLIN/TAZO 3.375 GM in Normal Saline 50 ML IVPB ×4 (02:25→19:35)
[2018-07-02] MEDS: POTASSIUM CHLORIDE/D5-0.45NACL 1,000 ML 75 MEQ IV ×2 (04:56→17:49)
[2018-07-02 07:12] LABS: Abs Immature Grans 0.03 k/cumm (0.0-0.09); Absolute Basophil Count 0.02 k/cumm (0.0-0.2); Absolute Eosinophil Count 0.19 k/cumm (0.0-0.7); Absolute Lymphocyte Count 1.21 k/cumm (1.2-3.4); Absolute Monocyte Count 0.81 k/cumm (0.11-0.7); Basophils % 0.3; Eosinophils % 2.6; HCT 25.2 % (36.0-46.0); HGB 7.7 g/dL (12.0-15.5); Immature Grans % 0.4; Lymphocytes % 16.6; Mean Corp. HGB Concentration 30.6 g/dL (32.0-36.0); Mean Corpuscular Hemoglobin 29.2 pg (27.0-33.0); Mean Corpuscular Volume 95.5 fL (80-95); Mean Platelet Volume 10.3 fL (8.0-11.0); Monocytes % 11.1; Platelet Count 219 x1000/uL (130-400); RBC 2.64 m/cumm (4.00-5.20); White Blood Cell Count 7.31 k/cumm (4.4-10.8)
[2018-07-02 07:20] LABS: Absolute Neutrophil Count 5.04 k/cumm (1.2-6.7)
[2018-07-02 07:30] VITALS: BP 132/77; PULSE 58; RESP 18; TEMP 37.2; O2SAT 93
[2018-07-02 07:30] LABS: Anion Gap 5.3 mmol/L (3-11); BUN 7 mg/dL (7-18); CO2 25.7 mmol/L (21.0-32.0); CREATININE 0.73 mg/dL (0.55-1.02); Calcium 7.6 mg/dL (8.5-10.1); Chloride 109 mmol/L (98-107); Glucose 90 mg/dL (70-100); Potassium 3.5 mmol/L (3.5-5.1); Sodium 140 mmol/L (136-145)
[2018-07-02 08:30] VITALS: BP 145/65; PULSE 67; RESP 17; TEMP 37.5; O2SAT 90
--- NOTE | 2018-07-02 08:30 | PGE_ITS ---
Date of Service Date of service: 07/02/18 Time of Service: 08:20 Assessment and Plan (1) Perforation of colon as colonoscopy complication: Current visit: Yes Status: Acute A// POD #4. This morning Mrs. Manuel is more tired, difficult to arouse and to engage in conversation. She reports feeling tired. She was restarted on her home sleeping medications last night. ? If this is the cause of the change in her mentation. WBC is trending down. Pain continues to be well managed. She is ambulating several times a day with the nursing staff. She denies nausea, vomiting. She is passing flatus. P\\ Spoke with [facility] staff, they will recheck Mrs. Manuel in an hour and recheck vital signs. 1. Pain- Well controlled on Epidural and toradol as needed as well as aspirin as needed 2. Nutrition: Continue Clear liquids 3. Activity: Ambulate a minimum of 3x/day 4. DVT prophylaxis- on Lovenox 5. Leukocytosis- continue Zosyn. Starting to trend down. 6. Hypothyroidism- Continue Iv levothyroxin 7. Insomnia- Home meds re-started yesterday 07/01; Ambien and Mirtazapine 8. Disposition: Home once taking PO and pain controlled on oral pain medication. (2) PMR (polymyalgia rheumatica): Current visit: No Status: Acute (3) Primary osteoarthritis of left knee: Current visit: No Status: Acute (4) Obstructive sleep apnea syndrome: Current visit: No Status: Acute Subjective Interval history since last seen: Mrs. Manuel is very tired this morning. She arouses with verbal and tactile cues. She is oriented to person and place. She was able to identify this provider. However while talking she was falling asleep. She denied having any abdominal pain, nausea or chills. She reports that she has been passing flatus. Exam Const General: cooperative and comfortable Orientation: alert and oriented to person Resp Effort & Inspection: normal respiratory effort Auscultation: clear to auscultation bilaterally and no wheezes Cardio Rate: regular rate Rhythm: regular rhythm Heart Sounds: S1 normal, S2 normal and no murmurs GI Inspection: normal to inspection and incision (covered with dressings. ) Palpation: soft, no guarding and nontender Auscultation: normal bowel sounds Objective Objective Clinical Data: Abnormal lab results 07/01/18 07/02/18 07/02/18 Range/Units 16:20 06:18 06:18 RBC 2.64 L (4.00-5.20) m/cumm Hgb 9.0 L 7.7 L (12.0-15.5) g/dL Hct 28.7 L 25.2 L (36.0-46.0) % MCV 95.5 H (80-95) fL MCHC 30.6 L (32.0-36.0) g/dL RDW 15.0 H (11.7-14.6) % Absolute Monocytes 0.81 H (0.11-0.7) k/cumm Chloride 109 H (98-107) mmol/L Calcium 7.6 L (8.5-10.1) mg/dL Vital Signs Temperature 37.2 C 07/01/18 22:47 Temperature Source Tympanic 07/01/18 15:54 Pulse 62 07/01/18 15:54 Pulse Rhythm Regular 07/01/18 23:20 Respiratory Rate 18 07/01/18 15:54 Respiratory Effort Non-Labored 07/01/18 23:20 Respiratory Depth Normal 07/01/18 23:20 Respiratory Pattern Normal 07/01/18 23:20 Blood Pressure 149/61 H 07/01/18 22:47 Pulse Oximetry 97 07/01/18 15:54 Respiratory End-tidal CO2 35 06/28/18 22:10 Oxygen Delivery Method Room Air 07/01/18 15:54 Oxygen Flow Rate 0 07/01/18 15:54 Pain Level 1 07/01/18 11:40 Comment 06/30/18 03:40 Intake & Output 07/01/18 07/01/18 07/02/18 11:59 23:59 11:59 Intake Total 670.834 / 2480.834 1810 / 2480.834 570 / 570 Output Total 985 / 2890 1905 / 2890 550 / 550 Balance -314.166 / -409.166 -95 / -409.166 Intake: IV 670.834 / 1320.834 650 / 1320.834 570 / 570 Oral 1160 / 1160 Output: Drainage 60 / 165 105 / 165 Right Lower Abdomen 60 / 165 105 / 165 Urine 925 / 2725 1800 / 2725 550 / 550 Other: Urine Color Yellow Yellow Yellow Urine Appearance Clear Clear Clear Laboratory Results WBC 7.31 k/cumm (4.4-10.8) D 07/02/18 06:18 RBC 2.64 m/cumm (4.00-5.20) L 07/02/18 06:18 Hgb 7.7 g/dL (12.0-15.5) L 07/02/18 06:18 Hct 25.2 % (36.0-46.0) L 07/02/18 06:18 MCV 95.5 fL (80-95) H 07/02/18 06:18 MCH 29.2 pg (27.0-33.0) 07/02/18 06:18 MCHC 30.6 g/dL (32.0-36.0) L 07/02/18 06:18 RDW 15.0 % (11.7-14.6) H 07/02/18 06:18 Plt Count 219 x1000/uL (130-400) 07/02/18 06:18 MPV 10.3 fL (8.0-11.0) 07/02/18 06:18 Immature Gran % 0.4 07/02/18 06:18 Neutrophils % 69.0 07/02/18 06:18 Lymphocytes % 16.6 07/02/18 06:18 Monocytes % 11.1 07/02/18 06:18 Eosinophils % 2.6 07/02/18 06:18 Basophils % 0.3 07/02/18 06:18 Absolute Neutrophils 5.04 k/cumm (1.2-6.7) 07/02/18 06:18 Band Neutrophils 3.0 % 06/29/18 06:30 Absolute Lymphocytes 1.21 k/cumm (1.2-3.4) 07/02/18 06:18 Absolute Monocytes 0.81 k/cumm (0.11-0.7) H 07/02/18 06:18 Absolute Eosinophils 0.19 k/cumm (0.0-0.7) 07/02/18 06:18 Absolute Basophils 0.02 k/cumm (0.0-0.2) 07/02/18 06:18 Differential Comment Manual differential 06/29/18 06:30 Atypical Lymphocytes 1 06/29/18 06:30 RBC Morphology See below 12/11/18 06:30 Poikilocytosis 1+ 06/29/18 06:30 Sodium 140 mmol/L (136-145) 07/02/18 06:18 Potassium 3.5 mmol/L (3.5-5.1) 07/02/18 06:18 Chloride 109 mmol/L (98-107) H 07/02/18 06:18 Carbon Dioxide 25.7 mmol/L (21.0-32.0) 07/02/18 06:18 Anion Gap 5.3 mmol/L (3-11) 07/02/18 06:18 BUN 7 mg/dL (7-18) 07/02/18 06:18 Creatinine 0.73 mg/dL (0.55-1.02) 07/02/18 06:18 Estimated GFR/1.73 m2 >= 60.00 (mL/min/1.73m2) 07/02/18 06:18 Glucose 90 mg/dL (70-100) 07/02/18 06:18 Calcium 7.6 mg/dL (8.5-10.1) L 07/02/18 06:18 Magnesium 2.1 mg/dL (1.8-2.4) 06/29/18 06:30 Total Bilirubin 0.5 mg/dL (0.2-1.0) 06/28/18 16:47 AST 26 U/L (15-37) 06/28/18 16:47 ALT 34 U/L (12-78) 06/28/18 16:47 Alkaline Phosphatase 80 U/L (46-116) 06/28/18 16:47 Troponin I < 0.02 ng/mL (0.00-0.06) 06/28/18 16:47 Total Protein 7.8 g/dL (6.4-8.2) 06/28/18 16:47 Albumin 3.4 g/dL (3.4-5.0) 06/28/18 16:47 Lipase 84 U/L (73-393) 06/28/18 16:47
[2018-07-02 08:45] VITALS: O2SAT 90
--- NOTE | 2018-07-02 08:52 | NUR.NOTE ---
Nursing Note: 0830: pt reporting pain in left flank region. pt has epidural in place at this time. pt states the pain is different. RN reports information to RUPAL Ennis.
[2018-07-02] MEDS: Levothyroxine 100 MCG TAB PO (09:02)
[2018-07-02] MEDS: Furosemide 20 MG TAB PO (09:02)
[2018-07-02] MEDS: methylPREDNISolone 4 MG TAB PO (09:02)
--- NOTE | 2018-07-02 10:44 | W.PM.PROGNOT ---
Date of Service Date of service: 07/02/18 Time of Service: 10:44 Assessment and Plan (1) Perforation of colon as colonoscopy complication: Current visit: Yes Status: Acute POD # 4 s/p exp lap, sigmoid colon resection for colon perforation s/p colonoscopy. Bowel function returning. Will advance to full liquid diet. Continue to monitor H/H. No signs of active bleeding. BP stable. Minimal symptoms. Will consider transfusion if H/H remains low and/or patient becomes significantly symptomatic. Subjective Interval history since last seen: Patient is awake and alert at this time. She notes that she is feeling pretty good today. Patient denies nausea or vomiting today. Reports (+) BM/flatus. Tolerating clears. Hb - 7.9 -> 9.0 -> 7.7 on serial checks with no signs of bleeding. Notes only a little dizziness when she first stands up. Ambulating with assist. Exam Const General: cooperative, comfortable, no acute distress and well developed Nutritional Appearance: well nourished Orientation: alert Eyes Sclera: sclerae normal Resp Effort & Inspection: normal respiratory effort and able to speak in complete sentences Cardio Jugular venous pressure: no JVD Rate: regular rate Rhythm: regular rhythm GI Inspection: non-distended and incision (maame - dry/clean/intact) Palpation: soft, not firm, no guarding and not rigid Auscultation: normal bowel sounds Objective Objective Clinical Data: Abnormal lab results 07/01/18 07/02/18 07/02/18 Range/Units 16:20 06:18 06:18 RBC 2.64 L (4.00-5.20) m/cumm Hgb 9.0 L 7.7 L (12.0-15.5) g/dL Hct 28.7 L 25.2 L (36.0-46.0) % MCV 95.5 H (80-95) fL MCHC 30.6 L (32.0-36.0) g/dL RDW 15.0 H (11.7-14.6) % Absolute Monocytes 0.81 H (0.11-0.7) k/cumm Chloride 109 H (98-107) mmol/L Calcium 7.6 L (8.5-10.1) mg/dL Vital Signs Temperature 37.5 C 07/02/18 08:30 Temperature Source Tympanic 07/02/18 08:30 Pulse 67 07/02/18 08:30 Pulse Rhythm Regular 07/02/18 09:28 Respiratory Rate 17 07/02/18 08:30 Respiratory Effort Non-Labored 07/02/18 09:28 Respiratory Depth Normal 07/02/18 09:28 Respiratory Pattern Normal 07/02/18 09:28 Blood Pressure 145/65 H 07/02/18 08:30 Pulse Oximetry 90 L 07/02/18 08:45 Respiratory End-tidal CO2 35 06/28/18 22:10 Oxygen Delivery Method Room Air 07/02/18 08:45 Oxygen Flow Rate 0 07/02/18 08:45 Pain Level 0 07/02/18 07:30 Comment 07/02/18 08:30 Intake & Output 07/01/18 07/01/18 07/02/18 11:59 23:59 11:59 Intake Total 670.834 / 2480.834 1810 / 2480.834 570 / 570 Output Total 985 / 2890 1905 / 2890 900 / 900 Balance -314.166 / -409.166 -95 / -409.166 -330 / -330 Intake: IV 670.834 / 1320.834 650 / 1320.834 570 / 570 Oral 1160 / 1160 Output: Drainage 60 / 165 105 / 165 50 / 50 Right Lower Abdomen 60 / 165 105 / 165 50 / 50 Urine 925 / 2725 1800 / 2725 850 / 850 Other: Urine Color Yellow Yellow Yellow Urine Appearance Clear Clear Clear Laboratory Results WBC 7.31 k/cumm (4.4-10.8) D 07/02/18 06:18 RBC 2.64 m/cumm (4.00-5.20) L 07/02/18 06:18 Hgb 7.7 g/dL (12.0-15.5) L 07/02/18 06:18 Hct 25.2 % (36.0-46.0) L 07/02/18 06:18 MCV 95.5 fL (80-95) H 07/02/18 06:18 MCH 29.2 pg (27.0-33.0) 07/02/18 06:18 MCHC 30.6 g/dL (32.0-36.0) L 07/02/18 06:18 RDW 15.0 % (11.7-14.6) H 07/02/18 06:18 Plt Count 219 x1000/uL (130-400) 07/02/18 06:18 MPV 10.3 fL (8.0-11.0) 07/02/18 06:18 Immature Gran % 0.4 07/02/18 06:18 Neutrophils % 69.0 07/02/18 06:18 Lymphocytes % 16.6 07/02/18 06:18 Monocytes % 11.1 07/02/18 06:18 Eosinophils % 2.6 07/02/18 06:18 Basophils % 0.3 07/02/18 06:18 Absolute Neutrophils 5.04 k/cumm (1.2-6.7) 07/02/18 06:18 Band Neutrophils 3.0 % 06/29/18 06:30 Absolute Lymphocytes 1.21 k/cumm (1.2-3.4) 07/02/18 06:18 Absolute Monocytes 0.81 k/cumm (0.11-0.7) H 07/02/18 06:18 Absolute Eosinophils 0.19 k/cumm (0.0-0.7) 07/02/18 06:18 Absolute Basophils 0.02 k/cumm (0.0-0.2) 07/02/18 06:18 Differential Comment Manual differential 06/29/18 06:30 Atypical Lymphocytes 1 06/29/18 06:30 RBC Morphology See below 06/29/18 06:30 Poikilocytosis 1+ 06/29/18 06:30 Sodium 140 mmol/L (136-145) 07/02/18 06:18 Potassium 3.5 mmol/L (3.5-5.1) 07/02/18 06:18 Chloride 109 mmol/L (98-107) H 07/02/18 06:18 Carbon Dioxide 25.7 mmol/L (21.0-32.0) 07/02/18 06:18 Anion Gap 5.3 mmol/L (3-11) 07/02/18 06:18 BUN 7 mg/dL (7-18) 07/02/18 06:18 Creatinine 0.73 mg/dL (0.55-1.02) 07/02/18 06:18 Estimated GFR/1.73 m2 >= 60.00 (mL/min/1.73m2) 07/02/18 06:18 Glucose 90 mg/dL (70-100) 07/02/18 06:18 Calcium 7.6 mg/dL (8.5-10.1) L 07/02/18 06:18 Magnesium 2.1 mg/dL (1.8-2.4) 06/29/18 06:30 Total Bilirubin 0.5 mg/dL (0.2-1.0) 06/28/18 16:47 AST 26 U/L (15-37) 06/28/18 16:47 ALT 34 U/L (12-78) 06/28/18 16:47 Alkaline Phosphatase 80 U/L (46-116) 06/28/18 16:47 Troponin I < 0.02 ng/mL (0.00-0.06) 06/28/18 16:47 Total Protein 7.8 g/dL (6.4-8.2) 06/28/18 16:47 Albumin 3.4 g/dL (3.4-5.0) 06/28/18 16:47 Lipase 84 U/L (73-393) 06/28/18 16:47
[2018-07-02 11:27] VITALS: BP 149/77; PULSE 59; RESP 18; TEMP 35.9; O2SAT 92
--- NOTE | 2018-07-02 11:39 | CMPROGNOTE_ITS ---
- If Service Date Differs Date of service: 07/02/18 Time of Service: 11:28 Care Management Progress Note S/O: Per LUIS Portillo, Amanda had an instance of confusion this morning around 0800. Amanda, whose mentation is normally A&Ox3, reportedly told Banadr that she was from [place] and called [place] Portillo. Amanda knows Bandar's name to be Bandar and later reported that she must have confused her with her good friend, [place]. During this time, Amanda's O2 was in the low 90's and she was started on 2L O2. When CM met with Amanda around 10:30am, Amanda admitted that she had had some confusion and she was likely 'dreaming' during her encounter with Bandar. She did take her home dose of ambien last night (after not having it for the previous few nights) and continues to have an epidural for pain management. Amanda reports that she finally got a good night's sleep. When asked how her breakfast was, Amanda responded that she couldn 't remember if she had had breakfast and informed the CM that she does have short term memory loss at baseline. Amanda reported that she continued to have abdominal pain, no N/V, did have a small BM and is not passing flatus. A: 77 year old female admitted for a perforated bowel. P: Amanda will discharge home when medically ready per MD. Anticipate patient will discharge home with no services and follow up with surgical services. CM will continue to offer support to patient, family, and care team regarding discharge planning and disposition.
--- NOTE | 2018-07-02 15:15 | W.PM.PROGNOT ---
Date of Service Date of service: 07/02/18 Time of Service: 15:15 Assessment and Plan (1) Anemia: Current visit: Yes Status: Chronic Went from 9 down to 7.7. ? dilusional. No symptoms Qualifiers: Anemia type: iron deficiency Iron deficiency anemia type: other iron deficiency Vitamin B12 deficiency anemia type: Folate deficiency anemia type: Bone marrow failure anemia type: Hemolytic anemia type: Other causes of anemia: Chronic kidney disease stage: Qualified Code(s): D50.8 - Other iron deficiency anemias (2) Perforation of colon as colonoscopy complication: Current visit: Yes Status: Acute 1. DVT Prophilaxis- Will hold Lovenox tonight so her epidural can come out tomorrow 2. Activity: Continue ambulating 3. Diet: On full liquids 4. Somnolence/tierdness today- had ambien and remeron for first time last night. Will hold tonight. monitor closely 5. Abdominal pain- mild. Moves around. ?Gas. Had BM and is passing flatus. Drain is putting out serous fluid. (3) Sore throat: Current visit: Yes Status: Acute This is new today Check for strep throat Watch for fevers Recheck labs in am. Subjective Interval history since last seen: Has been very sleepy all day. I did restart her Ambien and remeron last night. Had some flank pain this am that has resolved. She now complains mostly of a sore throat and some intermittent abdominal pain. HAs had a BM. Passing flatus. No N/V. Exam GI Palpation: soft, no hepatosplenomegaly and tender (lower abdomen. No guarding or rebound.) Objective Objective Clinical Data: Abnormal lab results 07/01/18 07/02/18 07/02/18 Range/Units 16:20 06:18 06:18 RBC 2.64 L (4.00-5.20) m/cumm Hgb 9.0 L 7.7 L (12.0-15.5) g/dL Hct 28.7 L 25.2 L (36.0-46.0) % MCV 95.5 H (80-95) fL MCHC 30.6 L (32.0-36.0) g/dL RDW 15.0 H (11.7-14.6) % Absolute Monocytes 0.81 H (0.11-0.7) k/cumm Chloride 109 H (98-107) mmol/L Calcium 7.6 L (8.5-10.1) mg/dL Vital Signs Temperature 96.6 F L 07/02/18 11:27 Temperature Source Tympanic 07/02/18 11:27 Pulse 59 L 07/02/18 11:27 Pulse Rhythm Regular 07/02/18 09:28 Respiratory Rate 18 07/02/18 11:27 Respiratory Effort Non-Labored 07/02/18 09:28 Respiratory Depth Normal 07/02/18 09:28 Respiratory Pattern Normal 07/02/18 09:28 Blood Pressure 149/77 H 07/02/18 11:27 Pulse Oximetry 92 L 07/02/18 11:27 Respiratory End-tidal CO2 35 06/28/18 22:10 Oxygen Delivery Method Room Air 07/02/18 11:27 Oxygen Flow Rate 0 07/02/18 11:27 Pain Level 0 07/02/18 11:27 Comment 07/02/18 08:30 Intake & Output 07/01/18 07/02/18 07/02/18 23:59 11:59 23:59 Intake Total 1810 / 2480.834 820 / 820 Output Total 1905 / 2890 900 / 2650 1750 / 2650 Balance -95 / -409.166 -80 / -1830 -1750 / -1830 Intake: IV 650 / 1320.834 620 / 620 Oral 1160 / 1160 200 / 200 Output: Drainage 105 / 165 50 / 50 Right Lower Abdomen 105 / 165 50 / 50 Urine 1800 / 2725 850 / 2600 1750 / 2600 Other: Urine Color Yellow Yellow Pale Urine Appearance Clear Clear Stool Size Small Stool Characteristics Soft Liquid Brown Laboratory Results WBC 7.31 k/cumm (4.4-10.8) D 07/02/18 06:18 RBC 2.64 m/cumm (4.00-5.20) L 07/02/18 06:18 Hgb 7.7 g/dL (12.0-15.5) L 07/02/18 06:18 Hct 25.2 % (36.0-46.0) L 07/02/18 06:18 MCV 95.5 fL (80-95) H 07/02/18 06:18 MCH 29.2 pg (27.0-33.0) 07/02/18 06:18 MCHC 30.6 g/dL (32.0-36.0) L 07/02/18 06:18 RDW 15.0 % (11.7-14.6) H 07/02/18 06:18 Plt Count 219 x1000/uL (130-400) 07/02/18 06:18 MPV 10.3 fL (8.0-11.0) 07/02/18 06:18 Immature Gran % 0.4 07/02/18 06:18 Neutrophils % 69.0 07/02/18 06:18 Lymphocytes % 16.6 07/02/18 06:18 Monocytes % 11.1 07/02/18 06:18 Eosinophils % 2.6 07/02/18 06:18 Basophils % 0.3 07/02/18 06:18 Absolute Neutrophils 5.04 k/cumm (1.2-6.7) 07/02/18 06:18 Band Neutrophils 3.0 % 06/29/18 06:30 Absolute Lymphocytes 1.21 k/cumm (1.2-3.4) 07/02/18 06:18 Absolute Monocytes 0.81 k/cumm (0.11-0.7) H 07/02/18 06:18 Absolute Eosinophils 0.19 k/cumm (0.0-0.7) 07/02/18 06:18 Absolute Basophils 0.02 k/cumm (0.0-0.2) 07/02/18 06:18 Differential Comment Manual differential 06/29/18 06:30 Atypical Lymphocytes 1 06/29/18 06:30 RBC Morphology See below 06/29/18 06:30 Poikilocytosis 1+ 06/29/18 06:30 Sodium 140 mmol/L (136-145) 07/02/18 06:18 Potassium 3.5 mmol/L (3.5-5.1) 07/02/18 06:18 Chloride 109 mmol/L (98-107) H 07/02/18 06:18 Carbon Dioxide 25.7 mmol/L (21.0-32.0) 07/02/18 06:18 Anion Gap 5.3 mmol/L (3-11) 07/02/18 06:18 BUN 7 mg/dL (7-18) 07/02/18 06:18 Creatinine 0.73 mg/dL (0.55-1.02) 07/02/18 06:18 Estimated GFR/1.73 m2 >= 60.00 (mL/min/1.73m2) 07/02/18 06:18 Glucose 90 mg/dL (70-100) 07/02/18 06:18 Calcium 7.6 mg/dL (8.5-10.1) L 07/02/18 06:18 Magnesium 2.1 mg/dL (1.8-2.4) 06/29/18 06:30 Total Bilirubin 0.5 mg/dL (0.2-1.0) 06/28/18 16:47 AST 26 U/L (15-37) 06/28/18 16:47 ALT 34 U/L (12-78) 06/28/18 16:47 Alkaline Phosphatase 80 U/L (46-116) 06/28/18 16:47 Troponin I < 0.02 ng/mL (0.00-0.06) 06/28/18 16:47 Total Protein 7.8 g/dL (6.4-8.2) 06/28/18 16:47 Albumin 3.4 g/dL (3.4-5.0) 06/28/18 16:47 Lipase 84 U/L (73-393) 06/28/18 16:47
[2018-07-02 15:25] VITALS: BP 122/55; PULSE 65; RESP 18; TEMP 37.1; O2SAT 92
[2018-07-02] MEDS: Pantoprazole 40 MG VIAL IVP (17:49)
[2018-07-02] MEDS: Normal Saline Flush 10 ML SYR IVP (17:49)
[2018-07-02 23:50] VITALS: BP 177/65; PULSE 66; RESP 20; TEMP 36.7; O2SAT 96
[2018-07-03] MEDS: Normal Saline 500 ML 30 ML IV (02:50)
[2018-07-03] MEDS: PIPERACILLIN/TAZO 3.375 GM in Normal Saline 50 ML IVPB ×4 (02:51→19:27)
[2018-07-03] MEDS: Normal Saline Flush 10 ML SYR IVP ×3 (03:08→18:22)
[2018-07-03] MEDS: Ketorolac 15 MG/ML VIAL IVP (03:09)
[2018-07-03 04:03] VITALS: BP 150/58; PULSE 58; RESP 20; TEMP 36.5; O2SAT 93
[2018-07-03] MEDS: POTASSIUM CHLORIDE/D5-0.45NACL 1,000 ML 75 MEQ IV ×2 (07:01→21:48)
[2018-07-03 07:19] LABS: HCT 28.3 % (36.0-46.0); HGB 8.7 g/dL (12.0-15.5); Mean Corp. HGB Concentration 30.7 g/dL (32.0-36.0); Mean Corpuscular Volume 94.3 fL (80-95); Mean Platelet Volume 9.9 fL (8.0-11.0); Platelet Count 251 x1000/uL (130-400); White Blood Cell Count 7.58 k/cumm (4.4-10.8)
[2018-07-03 07:32] VITALS: BP 176/65; PULSE 60; RESP 18; TEMP 36.3; O2SAT 96
[2018-07-03] MEDS: Levothyroxine 100 MCG TAB PO (07:43)
[2018-07-03] MEDS: Nystatin POWDER 60 GM JAR TP (07:43)
[2018-07-03] MEDS: Furosemide 20 MG TAB PO (07:43)
--- NOTE | 2018-07-03 08:45 | PDOC.ANES ---
Date of service: 07/03/18 Time of Service: 08:25 Anesthesia Note Report Anesthesia Note: Per request of Dr. Schwarz, epidural catheter infusion stopped and catheter removed. Tubing and tip intact. Patient's last dose of lovenox 07/01/2018.
[2018-07-03] MEDS: Ibuprofen 600 MG TAB PO ×2 (10:09→18:20)
[2018-07-03] MEDS: methylPREDNISolone 4 MG TAB PO (10:09)
--- NOTE | 2018-07-03 10:39 | W.PM.PROGNOT ---
Date of Service Date of service: 07/03/18 Time of Service: 10:39 Assessment and Plan (1) Perforation of colon as colonoscopy complication: Current visit: Yes Status: Acute POD # 5 s/p exp lap, sigmoid colon resection for colon perforation s/p colonoscopy. Bowel function returning. Will advance to normal consistency diet. H/H stable. BP stable. Epidural d/c'd. Transition to po pain meds prn. Will resume Lovenox. Plan to d/c fajardo in am. Subjective Interval history since last seen: Patient sitting up with grand-daughter at bedside. Patient reports that she tolerated full liquids well. (+) flatus and loose BM. Notes some mild abdominal discomfort with epidural d/c'd this am. Still has fajardo in. Patient denies dizziness or lightheadedness. Hb - 8.7 this am. Exam Const General: cooperative, no acute distress and well developed Nutritional Appearance: well nourished Orientation: alert Eyes Sclera: sclerae normal GI Inspection: non-distended and incision (maame - dry/clean/intact) Palpation: soft, not firm, no guarding, no masses, not rigid and nontender Auscultation: normal bowel sounds Objective Objective Clinical Data: Abnormal lab results 07/03/18 Range/Units 06:52 RBC 3.00 L (4.00-5.20) m/cumm Hgb 8.7 L (12.0-15.5) g/dL Hct 28.3 L (36.0-46.0) % MCHC 30.7 L (32.0-36.0) g/dL RDW 15.0 H (11.7-14.6) % Vital Signs Temperature 36.3 C L 07/03/18 07:32 Temperature Source Tympanic 07/03/18 07:32 Pulse 60 07/03/18 07:32 Pulse Rhythm Regular 07/02/18 23:50 Respiratory Rate 18 07/03/18 07:32 Respiratory Effort 07/02/18 23:50 Respiratory Depth Normal 07/02/18 23:50 Respiratory Pattern Normal 07/02/18 23:50 Blood Pressure 176/65 H 07/03/18 07:32 Pulse Oximetry 96 07/03/18 07:32 Respiratory End-tidal CO2 35 06/28/18 22:10 Oxygen Delivery Method Room Air 07/03/18 07:32 Oxygen Flow Rate 0 07/03/18 07:32 Pain Level 2 07/03/18 10:09 Comment 07/02/18 08:30 Intake & Output 07/02/18 07/02/18 07/03/18 11:59 23:59 11:59 Intake Total 820 / 3065.0 2245.0 / 3065.0 1442.5 / 1442.5 Output Total 900 / 3835 2935 / 3835 600 / 600 Balance -80 / -770.0 -690.0 / -770.0 842.5 / 842.5 Intake: IV 620 / 1985.0 1365.0 / 1985.0 692.5 / 692.5 Oral 200 / 1080 880 / 1080 750 / 750 Output: Drainage 50 / 110 60 / 110 50 / 50 Right Lower Abdomen 50 / 110 60 / 110 50 / 50 Urine 850 / 3725 2875 / 3725 550 / 550 Other: Urine Color Yellow Yellow Yellow Urine Appearance Clear Clear Clear Stool Size Small Moderate Stool Characteristics Soft Soft Liquid Brown Laboratory Results WBC 7.58 k/cumm (4.4-10.8) 07/03/18 06:52 RBC 3.00 m/cumm (4.00-5.20) L 07/03/18 06:52 Hgb 8.7 g/dL (12.0-15.5) L 07/03/18 06:52 Hct 28.3 % (36.0-46.0) L 07/03/18 06:52 MCV 94.3 fL (80-95) 07/03/18 06:52 MCH 29.0 pg (27.0-33.0) 07/03/18 06:52 MCHC 30.7 g/dL (32.0-36.0) L 07/03/18 06:52 RDW 15.0 % (11.7-14.6) H 07/03/18 06:52 Plt Count 251 x1000/uL (130-400) 07/03/18 06:52 MPV 9.9 fL (8.0-11.0) 07/03/18 06:52 Immature Gran % 0.4 07/02/18 06:18 Neutrophils % 69.0 07/02/18 06:18 Lymphocytes % 16.6 07/02/18 06:18 Monocytes % 11.1 07/02/18 06:18 Eosinophils % 2.6 07/02/18 06:18 Basophils % 0.3 07/02/18 06:18 Absolute Neutrophils 5.04 k/cumm (1.2-6.7) 07/02/18 06:18 Band Neutrophils 3.0 % 06/29/18 06:30 Absolute Lymphocytes 1.21 k/cumm (1.2-3.4) 07/02/18 06:18 Absolute Monocytes 0.81 k/cumm (0.11-0.7) H 07/02/18 06:18 Absolute Eosinophils 0.19 k/cumm (0.0-0.7) 07/02/18 06:18 Absolute Basophils 0.02 k/cumm (0.0-0.2) 07/02/18 06:18 Differential Comment Manual differential 06/29/18 06:30 Atypical Lymphocytes 1 06/29/18 06:30 RBC Morphology See below 06/29/18 06:30 Poikilocytosis 1+ 06/29/18 06:30 Sodium 140 mmol/L (136-145) 07/02/18 06:18 Potassium 3.5 mmol/L (3.5-5.1) 07/02/18 06:18 Chloride 109 mmol/L (98-107) H 07/02/18 06:18 Carbon Dioxide 25.7 mmol/L (21.0-32.0) 07/02/18 06:18 Anion Gap 5.3 mmol/L (3-11) 07/02/18 06:18 BUN 7 mg/dL (7-18) 07/02/18 06:18 Creatinine 0.73 mg/dL (0.55-1.02) 07/02/18 06:18 Estimated GFR/1.73 m2 >= 60.00 (mL/min/1.73m2) 07/02/18 06:18 Glucose 90 mg/dL (70-100) 07/02/18 06:18 Calcium 7.6 mg/dL (8.5-10.1) L 07/02/18 06:18 Magnesium 2.1 mg/dL (1.8-2.4) 06/29/18 06:30 Total Bilirubin 0.5 mg/dL (0.2-1.0) 06/28/18 16:47 AST 26 U/L (15-37) 06/28/18 16:47 ALT 34 U/L (12-78) 06/28/18 16:47 Alkaline Phosphatase 80 U/L (46-116) 06/28/18 16:47 Troponin I < 0.02 ng/mL (0.00-0.06) 06/28/18 16:47 Total Protein 7.8 g/dL (6.4-8.2) 06/28/18 16:47 Albumin 3.4 g/dL (3.4-5.0) 06/28/18 16:47 Lipase 84 U/L (73-393) 06/28/18 16:47
[2018-07-03] MEDS: oxyCODONE 5 MG TAB PO ×2 (11:20→21:52)
[2018-07-03 12:05] VITALS: BP 181/73; PULSE 63; RESP 18; TEMP 36.1; O2SAT 99
[2018-07-03] MEDS: HYDROmorphone 2 MG/ML VIAL 0.5 MG IVP (13:28)
[2018-07-03] MEDS: Ondansetron 4 MG/2 ML VIAL IVP (16:33)
[2018-07-03] MEDS: ACETAMINOPHEN 1,000 MG/100 ML BTL 400 MG IVPB (16:36)
[2018-07-03 16:51] VITALS: BP 156/68; PULSE 54; RESP 21; TEMP 36.5; O2SAT 96
--- NOTE | 2018-07-03 16:55 | PDOC.CMPRO ---
Care Management Progress Note S/O: Resting in bed. States she does not feel as well as she did yesterday. A: 77 yo female admitted for repair of perforated bowel following Colonoscopy P: Will return home with no services when medically cleared for discharge. to transport.
[2018-07-03] MEDS: Pantoprazole 40 MG VIAL IVP (18:22)
[2018-07-03] MEDS: Enoxaparin 40 MG/0.4 ML SYR SC (18:23)
[2018-07-03 19:29] VITALS: BP 153/69; PULSE 61; RESP 20; TEMP 36.8; O2SAT 95
[2018-07-04] VITALS (7 sets, daily range): BP systolic 127–168; BP diastolic 56–75; PULSE 52–72; RESP 16–18; TEMP 35.5–36.9; O2SAT 94–100
[2018-07-04] MEDS: PIPERACILLIN/TAZO 3.375 GM in Normal Saline 50 ML IVPB ×4 (01:49→19:58)
[2018-07-04] MEDS: oxyCODONE 5 MG TAB PO ×4 (05:47→23:58)
[2018-07-04] MEDS: Ibuprofen 600 MG TAB PO ×3 (05:48→23:59)
[2018-07-04 07:29] LABS: Anion Gap 6.1 mmol/L (3-11); BUN 7 mg/dL (7-18); CO2 29.9 mmol/L (21.0-32.0); CREATININE 0.68 mg/dL (0.55-1.02); Calcium 8.6 mg/dL (8.5-10.1); Chloride 104 mmol/L (98-107); Glucose 93 mg/dL (70-100); Magnesium 1.4 mg/dL (1.8-2.4); Potassium 3.9 mmol/L (3.5-5.1); Sodium 140 mmol/L (136-145)
[2018-07-04 07:48] LABS: Abs Immature Grans 0.06 k/cumm (0.0-0.09); Absolute Basophil Count 0.03 k/cumm (0.0-0.2); Absolute Eosinophil Count 0.16 k/cumm (0.0-0.7); Absolute Lymphocyte Count 1.06 k/cumm (1.2-3.4); Absolute Neutrophil Count 6.03 k/cumm (1.2-6.7); Basophils % 0.4; Eosinophils % 1.9; HCT 28.9 % (36.0-46.0); HGB 9.2 g/dL (12.0-15.5); Immature Grans % 0.7; Lymphocytes % 12.6; Mean Corp. HGB Concentration 31.8 g/dL (32.0-36.0); Mean Corpuscular Hemoglobin 29.4 pg (27.0-33.0); Mean Corpuscular Volume 92.3 fL (80-95); Mean Platelet Volume 10.5 fL (8.0-11.0); Neutrophils % 71.4; Platelet Count 259 x1000/uL (130-400); RBC 3.13 m/cumm (4.00-5.20); White Blood Cell Count 8.44 k/cumm (4.4-10.8)
[2018-07-04] MEDS: Nystatin POWDER 60 GM JAR TP (08:49)
[2018-07-04] MEDS: Levothyroxine 100 MCG TAB PO (08:49)
[2018-07-04] MEDS: methylPREDNISolone 4 MG TAB PO (08:49)
[2018-07-04] MEDS: Furosemide 20 MG TAB PO (08:49)
--- NOTE | 2018-07-04 12:12 | W.PM.PROGNOT ---
Date of Service Date of service: 07/04/18 Time of Service: 12:12 Assessment and Plan (1) Perforation of colon as colonoscopy complication: Current visit: Yes Status: Acute POD # 6 s/p exp lap, sigmoid colon resection for colon perforation s/p colonoscopy. Bowel function returned. Diet was changed to full liquids yesterday afternoon. Will re-advance to normal consistency diet. H/H stable. D/c fajardo and decrease IVF. Subjective Patient reports: no new complaints Interval history since last seen: Patient seen with granddaughter at bedside. She notes some occasional lower abdominal discomfort but is tolerating full liquids and requesting regular diet. (+) flatus and formed BM this am. Feeling better. C/o itching on back where skin was excoriated with tape/adhesive. Mg - 1.4. K+ - 3.9. Exam Const General: cooperative, comfortable and no acute distress Nutritional Appearance: well nourished Orientation: alert Eyes Sclera: sclerae normal Resp Effort & Inspection: normal respiratory effort and able to speak in complete sentences GI Inspection: non-distended, incision (midline maame - dry/clean/intact) and other (drain - serous) Palpation: soft, not firm, no guarding, no masses, not rigid and nontender Auscultation: normal bowel sounds Skin General skin exam: no rashes or lesions noted, excoriation(s) (R lower back - excoriated ~ 2-3 cm, clean,no erythema; Mepilex applied) and no jaundice Objective Objective Clinical Data: Abnormal lab results 07/04/18 07/04/18 Range/Units 06:44 06:44 RBC 3.13 L (4.00-5.20) m/cumm Hgb 9.2 L (12.0-15.5) g/dL Hct 28.9 L (36.0-46.0) % MCHC 31.8 L (32.0-36.0) g/dL RDW 15.0 H (11.7-14.6) % Absolute Lymphocytes 1.06 L (1.2-3.4) k/cumm Absolute Monocytes 1.10 H (0.11-0.7) k/cumm Magnesium 1.4 L (1.8-2.4) mg/dL Vital Signs Temperature 36.6 C 07/04/18 07:48 Temperature Source Tympanic 07/04/18 07:48 Pulse 54 L 07/04/18 07:48 Pulse Rhythm Regular 07/04/18 03:12 Respiratory Rate 18 07/04/18 07:48 Respiratory Effort Non-Labored 07/04/18 03:12 Respiratory Depth Normal 07/04/18 03:12 Respiratory Pattern Normal 07/04/18 03:12 Blood Pressure 167/75 H 07/04/18 07:48 Pulse Oximetry 96 07/04/18 07:48 Respiratory End-tidal CO2 35 06/28/18 22:10 Oxygen Delivery Method Room Air 07/04/18 07:48 Oxygen Flow Rate 0 07/04/18 07:48 Pain Level 3 07/04/18 05:48 Comment 07/02/18 08:30 Intake & Output 07/03/18 07/04/18 07/04/18 23:59 11:59 23:59 Intake Total 1906.25 / 3398.75 1372.5 / 1372.5 Output Total 3405 / 4305 1075 / 2525 1450 / 2525 Balance -1498.75 / -906.25 297.5 / -1152.5 -1450 / -1152.5 Intake: IV 1306.25 / 2048.75 352.5 / 352.5 Oral 600 / 1350 1020 / 1020 Output: Drainage 130 / 180 75 / 125 50 / 125 Right Lower Abdomen 130 / 180 75 / 125 50 / 125 Urine 2975 / 3525 1000 / 2400 1400 / 2400 Stool 300 / 600 Other: Urine Color Pale Yellow Pale Yellow Yellow Urine Appearance Clear Clear Clear Urine Odor None Stool Size Small Moderate Stool Characteristics Soft Soft Voiding Methods Indwelling Catheter Laboratory Results WBC 8.44 k/cumm (4.4-10.8) 07/04/18 06:44 RBC 3.13 m/cumm (4.00-5.20) L 07/04/18 06:44 Hgb 9.2 g/dL (12.0-15.5) L 07/04/18 06:44 Hct 28.9 % (36.0-46.0) L 07/04/18 06:44 MCV 92.3 fL (80-95) 07/04/18 06:44 MCH 29.4 pg (27.0-33.0) 07/04/18 06:44 MCHC 31.8 g/dL (32.0-36.0) L 07/04/18 06:44 RDW 15.0 % (11.7-14.6) H 07/04/18 06:44 Plt Count 259 x1000/uL (130-400) 07/04/18 06:44 MPV 10.5 fL (8.0-11.0) 07/04/18 06:44 Immature Gran % 0.7 07/04/18 06:44 Neutrophils % 71.4 07/04/18 06:44 Lymphocytes % 12.6 07/04/18 06:44 Monocytes % 13.0 07/04/18 06:44 Eosinophils % 1.9 07/04/18 06:44 Basophils % 0.4 07/04/18 06:44 Absolute Neutrophils 6.03 k/cumm (1.2-6.7) 07/04/18 06:44 Band Neutrophils 3.0 % 06/29/18 06:30 Absolute Lymphocytes 1.06 k/cumm (1.2-3.4) L 07/04/18 06:44 Absolute Monocytes 1.10 k/cumm (0.11-0.7) H 07/04/18 06:44 Absolute Eosinophils 0.16 k/cumm (0.0-0.7) 07/04/18 06:44 Absolute Basophils 0.03 k/cumm (0.0-0.2) 07/04/18 06:44 Differential Comment Manual differential 06/29/18 06:30 Atypical Lymphocytes 1 06/29/18 06:30 RBC Morphology See below 06/29/18 06:30 Poikilocytosis 1+ 06/29/18 06:30 Sodium 140 mmol/L (136-145) 07/04/18 06:44 Potassium 3.9 mmol/L (3.5-5.1) 07/04/18 06:44 Chloride 104 mmol/L (98-107) 07/04/18 06:44 Carbon Dioxide 29.9 mmol/L (21.0-32.0) 07/04/18 06:44 Anion Gap 6.1 mmol/L (3-11) 07/04/18 06:44 BUN 7 mg/dL (7-18) 07/04/18 06:44 Creatinine 0.68 mg/dL (0.55-1.02) 07/04/18 06:44 Estimated GFR/1.73 m2 >= 60.00 (mL/min/1.73m2) 07/04/18 06:44 Glucose 93 mg/dL (70-100) 07/04/18 06:44 Calcium 8.6 mg/dL (8.5-10.1) 07/04/18 06:44 Magnesium 1.4 mg/dL (1.8-2.4) L 07/04/18 06:44 Total Bilirubin 0.5 mg/dL (0.2-1.0) 06/28/18 16:47 AST 26 U/L (15-37) 06/28/18 16:47 ALT 34 U/L (12-78) 06/28/18 16:47 Alkaline Phosphatase 80 U/L (46-116) 06/28/18 16:47 Troponin I < 0.02 ng/mL (0.00-0.06) 06/28/18 16:47 Total Protein 7.8 g/dL (6.4-8.2) 06/28/18 16:47 Albumin 3.4 g/dL (3.4-5.0) 06/28/18 16:47 Lipase 84 U/L (73-393) 06/28/18 16:47
[2018-07-04] MEDS: MAGNESIUM SULFATE 2 GM/50 ML BAG IVPB (12:49)
[2018-07-04] MEDS: Normal Saline 500 ML 30 ML IV (14:52)
[2018-07-04] MEDS: Lactated Ringers 1,000 ML 30 ML IV (14:53)
[2018-07-04] MEDS: ACETAMINOPHEN 1,000 MG/100 ML BTL 400 MG IVPB (16:02)
[2018-07-04] MEDS: Pantoprazole 40 MG VIAL IVP (17:43)
[2018-07-04] MEDS: Enoxaparin 40 MG/0.4 ML SYR SC (17:43)
[2018-07-04] MEDS: Normal Saline Flush 10 ML SYR IVP (17:44)
--- NOTE | 2018-07-04 18:36 | PDOC.CMPRO ---
Care Management Progress Note S/O: Alert and talkative. Very pleased that she is eating a regular diet. A: 77 yo female admitted for a perforated bowel following a colonoscopy. P: Riddhi will return home and no services will be needed. , Ed, will transport when medically cleared for discharge.
[2018-07-05] MEDS: PIPERACILLIN/TAZO 3.375 GM in Normal Saline 50 ML IVPB ×3 (01:43→14:24)
[2018-07-05] MEDS: ACETAMINOPHEN 1,000 MG/100 ML BTL 400 MG IVPB (02:31)
[2018-07-05] MEDS: oxyCODONE 5 MG TAB PO ×3 (03:59→13:23)
[2018-07-05 04:10] VITALS: BP 144/65; PULSE 62; RESP 18; TEMP 36.4; O2SAT 94
[2018-07-05 06:57] LABS: Magnesium 1.6 mg/dL (1.8-2.4)
--- NOTE | 2018-07-05 07:18 | W.PM.PROGNOT ---
Date of Service Date of service: 07/05/18 Time of Service: 07:07 Assessment and Plan (1) Anemia: Current visit: Yes Status: Chronic Improving. Hgb up to 9.2 Qualifiers: Anemia type: iron deficiency Iron deficiency anemia type: other iron deficiency Vitamin B12 deficiency anemia type: Folate deficiency anemia type: Bone marrow failure anemia type: Hemolytic anemia type: Other causes of anemia: Chronic kidney disease stage: Qualified Code(s): D50.8 - Other iron deficiency anemias (2) Perforation of colon as colonoscopy complication: Current visit: Yes Status: Acute Doing well. HAs had normal BM's Eating a soft regular diet (3) Sore throat: Current visit: Yes Status: Acute resolved (4) Hypomagnesemia: Current visit: Yes Status: Acute Give 2 gm IV now (5) Discharge planning issues: Current visit: Yes Status: Acute Home later today Will remove the SALVATORE drain before discharge Subjective Interval history since last seen: Doing well this morning. Some intermittent crampy abdominal pain. Normal formed BM's. NO N/V. Exam Const General: cooperative, comfortable and no acute distress Resp Effort & Inspection: normal respiratory effort Auscultation: clear to auscultation bilaterally Cardio Rate: regular rate Rhythm: regular rhythm Heart Sounds: no gallops, no murmurs and no rubs GI Inspection: normal to inspection and incision (c/d/i) Palpation: soft, no hepatosplenomegaly and nontender Auscultation: normal bowel sounds Objective Objective Clinical Data: Abnormal lab results 07/04/18 07/04/18 07/05/18 Range/Units 06:44 06:44 06:35 RBC 3.13 L (4.00-5.20) m/cumm Hgb 9.2 L (12.0-15.5) g/dL Hct 28.9 L (36.0-46.0) % MCHC 31.8 L (32.0-36.0) g/dL RDW 15.0 H (11.7-14.6) % Absolute Lymphocytes 1.06 L (1.2-3.4) k/cumm Absolute Monocytes 1.10 H (0.11-0.7) k/cumm Magnesium 1.4 L 1.6 L (1.8-2.4) mg/dL Vital Signs Temperature 97.5 F L 07/05/18 04:10 Temperature Source Tympanic 07/05/18 04:10 Pulse 62 07/05/18 04:10 Pulse Rhythm Regular 07/05/18 05:02 Respiratory Rate 18 07/05/18 04:10 Respiratory Effort Non-Labored 07/05/18 05:02 Respiratory Depth Normal 07/05/18 05:02 Respiratory Pattern Normal 07/05/18 05:02 Blood Pressure 144/65 H 07/05/18 04:10 Pulse Oximetry 94 L 07/05/18 04:10 Respiratory End-tidal CO2 35 06/28/18 22:10 Oxygen Delivery Method Room Air 07/05/18 04:10 Oxygen Flow Rate 0 07/05/18 04:10 Pain Level 5 07/05/18 00:59 Comment 07/02/18 08:30 Intake & Output 07/04/18 07/04/18 07/05/18 11:59 23:59 11:59 Intake Total 1422.5 / 2601.167 1178.667 / 2601.167 510 / 510 Output Total 1075 / 4325 3250 / 4325 75 / 75 Balance 347.5 / -1723.833 -2071.333 / -1723.833 435 / 435 Intake: IV 402.5 / 981.167 578.667 / 981.167 150 / 150 Oral 1020 / 1620 600 / 1620 360 / 360 Output: Drainage 75 / 125 50 / 125 75 / 75 Right Lower Abdomen 75 / 125 50 / 125 75 / 75 Urine 1000 / 4200 3200 / 4200 Other: Urine Color Yellow Pale Pale Yellow Yellow Urine Appearance Clear Clear Clear Stool Size Moderate Stool Characteristics Soft Voiding Methods Toilet Toilet Laboratory Results WBC 8.44 k/cumm (4.4-10.8) 07/04/18 06:44 RBC 3.13 m/cumm (4.00-5.20) L 07/04/18 06:44 Hgb 9.2 g/dL (12.0-15.5) L 07/04/18 06:44 Hct 28.9 % (36.0-46.0) L 07/04/18 06:44 MCV 92.3 fL (80-95) 07/04/18 06:44 MCH 29.4 pg (27.0-33.0) 07/04/18 06:44 MCHC 31.8 g/dL (32.0-36.0) L 07/04/18 06:44 RDW 15.0 % (11.7-14.6) H 07/04/18 06:44 Plt Count 259 x1000/uL (130-400) 07/04/18 06:44 MPV 10.5 fL (8.0-11.0) 07/04/18 06:44 Immature Gran % 0.7 07/04/18 06:44 Neutrophils % 71.4 07/04/18 06:44 Lymphocytes % 12.6 07/04/18 06:44 Monocytes % 13.0 07/04/18 06:44 Eosinophils % 1.9 07/04/18 06:44 Basophils % 0.4 07/04/18 06:44 Absolute Neutrophils 6.03 k/cumm (1.2-6.7) 07/04/18 06:44 Band Neutrophils 3.0 % 06/29/18 06:30 Absolute Lymphocytes 1.06 k/cumm (1.2-3.4) L 07/04/18 06:44 Absolute Monocytes 1.10 k/cumm (0.11-0.7) H 07/04/18 06:44 Absolute Eosinophils 0.16 k/cumm (0.0-0.7) 07/04/18 06:44 Absolute Basophils 0.03 k/cumm (0.0-0.2) 07/04/18 06:44 Differential Comment Manual differential 06/29/18 06:30 Atypical Lymphocytes 1 06/29/18 06:30 RBC Morphology See below 06/29/18 06:30 Poikilocytosis 1+ 06/29/18 06:30 Sodium 140 mmol/L (136-145) 07/04/18 06:44 Potassium 3.9 mmol/L (3.5-5.1) 07/04/18 06:44 Chloride 104 mmol/L (98-107) 07/04/18 06:44 Carbon Dioxide 29.9 mmol/L (21.0-32.0) 07/04/18 06:44 Anion Gap 6.1 mmol/L (3-11) 07/04/18 06:44 BUN 7 mg/dL (7-18) 07/04/18 06:44 Creatinine 0.68 mg/dL (0.55-1.02) 07/04/18 06:44 Estimated GFR/1.73 m2 >= 60.00 (mL/min/1.73m2) 07/04/18 06:44 Glucose 93 mg/dL (70-100) 07/04/18 06:44 Calcium 8.6 mg/dL (8.5-10.1) 07/04/18 06:44 Magnesium 1.6 mg/dL (1.8-2.4) L 07/05/18 06:35 Total Bilirubin 0.5 mg/dL (0.2-1.0) 06/28/18 16:47 AST 26 U/L (15-37) 06/28/18 16:47 ALT 34 U/L (12-78) 06/28/18 16:47 Alkaline Phosphatase 80 U/L (46-116) 06/28/18 16:47 Troponin I < 0.02 ng/mL (0.00-0.06) 06/28/18 16:47 Total Protein 7.8 g/dL (6.4-8.2) 06/28/18 16:47 Albumin 3.4 g/dL (3.4-5.0) 06/28/18 16:47 Lipase 84 U/L (73-393) 06/28/18 16:47
[2018-07-05 07:40] VITALS: BP 156/56; PULSE 66; RESP 18; TEMP 36.7; O2SAT 94
[2018-07-05 08:40] VITALS: O2SAT 94
[2018-07-05] MEDS: Levothyroxine 100 MCG TAB PO (08:45)
[2018-07-05] MEDS: methylPREDNISolone 4 MG TAB PO (08:45)
[2018-07-05] MEDS: Furosemide 20 MG TAB PO (08:45)
[2018-07-05] MEDS: Normal Saline 500 ML 100 ML IV (08:45)
[2018-07-05] MEDS: MAGNESIUM SULFATE 2 GM/50 ML BAG IVPB (09:44)
--- NOTE | 2018-07-05 10:25 | PDOC.CMDIS ---
- If Service Date Differs Date of service: 07/05/18 Time of Service: 10:25 LACE Index Scoring Tool - Questions: Length of Stay (in days): 7 - 13 Acuity (Admit via E.D.?): Yes Comorbidities: Connective Tissue Disease E.D. Visits: 1 - Answers: Total Score: 12 Risk of Readmission: High Risk Care Management Discharge Reason for Hospitalization: Perforated Bowel. Discharge Plan: Riddhi will discharge home when medically ready per MD. Anticipate patient will discharge with no services and follow up with surgical services. Riddhi will transport via private vehicle with her , Ed. Patient/Family Education Needs: Discharge education, any limitations, and follow up plan of care. Ask Me Three discussion.
[2018-07-05 11:39] VITALS: BP 122/69; PULSE 56; RESP 18; TEMP 36.9; O2SAT 96
[2018-07-05] MEDS: Ibuprofen 600 MG TAB PO (13:23)
[2018-07-05 15:40] VITALS: BP 141/57; PULSE 64; RESP 18; TEMP 37.5; O2SAT 96
[2018-07-05] MEDS: HYDROmorphone 2 MG/ML VIAL 0.5 MG IVP (15:57)
[2018-07-05] MEDS: Normal Saline Flush 10 ML SYR IVP (15:58)
--- NOTE | 2018-07-05 16:05 | PDOC.CMPRO ---
- If Service Date Differs Date of service: 07/05/18 Time of Service: 16:05 Care Management Progress Note S/O: Amanda is sitting in her chair when CM visits this morning. She is engaged in conversation, makes good eye contact, and is talkative. Amanda reports that she is feeling well. Her fajardo has been d/c'ed and she is voiding, passing flatus, and has had several small BMs. Amanda reports that she feels ready to return home. She is tolerating a regular diet and receiving oral pain medications as needed. A: 77 yo female admitted for a perforated bowel following a colonoscopy. P: Riddhi will discharge home when medically ready per MD. Anticipate patient will discharge with no services and follow up with surgical services. Patient will transport via private vehicle with her , Ed. CM will continue to offer support to patient, family, and care team regarding discharge planning and disposition.
--- NOTE | 2018-07-05 16:15 | DSE_ITS ---
Date of service: 07/05/18 Time of Service: 16:09 DS: Diagnosis Discharge Diagnosis (1) Anemia: Status: Chronic (2) Perforation of colon as colonoscopy complication: Status: Acute (3) Sore throat: Status: Acute (4) Hypomagnesemia: Status: Acute (5) Discharge planning issues: Status: Acute Discharge Plan Disposition Patient Disposition: HOME Condition: Improving Discharge Details Reason For Visit: PERFORATED BOWEL Admit Date/Time: 06/28/18 17:48 Admit Provider: My Schwarz Attending Provider: My Schwarz Primary Care Provider: [facility] Course Hospital Course: Mrs. Manuel is a pleasant 77 year old female who underwent a colonoscopy on Thursday06/28/18 and unfortunately she had a perforation. She underwent surgery on Thursday evening. She underwent an ex-lap with bowel resection and anastamosis. She did well after surgery. Her diet was slowly advanced starting on POD#2. She started a regular soft diet on Thursday and tolerated that well. She has been afebrile for 48 hours and her WBC count was normal for 48 hours. Her SALVATORE was draining serous fluid and was removed prior to discharge. She did have some cramping abdominal pain that was relieved with walking and after a BM. She is having formed stools. She is passing flatus. her abdomen is soft and ND. Incision is c/d/i Home Meds and New Rx's Prescriptions: New ibuprofen [IBU] 600 mg Tablet 600 mg PO Q6H PRN PRN (Reason: Pain) Qty: 30 RF: 0 oxycodone 5 mg Tablet 5 mg PO Q6H PRN (Reason: Pain) Qty: 20 RF: 0 polyethylene glycol 3350 [Miralax] 17 gram/dose powder 17 gm PO DAILY PRN (Reason: constipation) Qty: 238 RF: 0 Continued bupropion HCl 300 mg tablet extended release 24 hr 300 mg PO QAM RF: 0 isoniazid 300 mg tablet 300 mg PO DAILY RF: 0 zolpidem 12.5 mg tablet,ext release multiphase 12.5 mg PO HS RF: 0 cholecalciferol (vitamin D3) 1,000 unit tablet 500 unit PO DAILY RF: 0 methylprednisolone [Medrol] 4 mg tablet 4 mg PO DAILY RF: 0 pyridoxine (vitamin B6) 25 mg tablet 25 mg PO DAILY RF: 0 aspirin [Aspirin Low Dose] 81 MG tablet,delayed release (DR/EC) 81 mg PO DAILY RF: 0 clotrimazole 45 GM cream 45 gm Topical BID PRNQty: 1 RF: 2 nystatin 60 GM powder 60 gm Topical DAILY Qty: 1 RF: 2 folic acid 1 MG tablet 1 mg PO DAILY Qty: 90 RF: 4 ferrous gluconate 324 MG tablet 324 mg PO DAILY Qty: 30 RF: 4 azelaic acid [Finacea] 50 GM gel 50 gm Topical BID Qty: 1 RF: 3 furosemide 20 MG tablet 20 mg PO DAILY Qty: 30 RF: 3 mirtazapine 7.5 MG tablet 7.5 mg PO HS Qty: 90 RF: 2 methotrexate sodium 2.5 mg tablet 15 mg PO .weekly Qty: 4 RF: 0 levothyroxine 100 mcg tablet 100 mcg PO DAILY Qty: 90 RF: 2 ascorbic acid (vitamin C) [Vitamin C] 500 MG tablet 500 mg PO DAILY RF: 0 Discharge Instructions Instructions: Soft Diet (DC), Bowel Resection (DC), Staple Care (DC) Additional Instructions: Please call if you develop: fevers >101.5 Nausea or Vomiting Abdominal pain that is not transient redness or heat around the incision site Medication: Oxycodon 5mg every 6 hours as needed for severe pain Tylenol 650 mg every 6 hours as needed for mild to moderate pain Miralax daily as needed for constipation Activity: As tolerated. No lifting, pushing or pulling >20 lb x 4 weeks Other: may shower daily No bathing for 1 week May use ice or heat for pain Respiratory: Continue using the Incentive Spirometer while awake and watching TV DO NOT USE AMBIEN AND OXYCODON AT THE SAME TIME Referrals: My Schwarz MD [ [facility] STAFF PHYSICIAN] - (Please make an appointment to see Dr. Schwarz or Caleb Castrejon on Thursday07/09/18 to have your maame removed. Please call the office tomorrow at ) Activity:: No lifting >20 lb x 4 weeks Equipment/Supplies:: No Equipment Needed Diet:: soft diet Discharge Orders Discharge Orders: Discharge Order (Routine); Ordered 07/05/18 Ordered By: My Schwarz Exam Resp Auscultation: clear to auscultation bilaterally Cardio Rate: regular rate Rhythm: regular rhythm Heart Sounds: no gallops, no murmurs and no rubs GI Palpation: soft, no hepatosplenomegaly and tender (mild RLQ around drain site. Drain removed at bedside) Auscultation: normal bowel sounds DS: Data Vitals/I&O Vitals and I&O: Vital Signs Temperature 99.5 F 07/05/18 15:40 Temperature Source Tympanic 07/05/18 15:40 Pulse 64 07/05/18 15:40 Pulse Rhythm Regular 07/05/18 05:02 Respiratory Rate 18 07/05/18 15:40 Respiratory Effort Non-Labored 07/05/18 05:02 Respiratory Depth Normal 07/05/18 05:02 Respiratory Pattern Normal 07/05/18 05:02 Blood Pressure 141/57 H 07/05/18 15:40 Pulse Oximetry 96 07/05/18 15:40 Respiratory End-tidal CO2 35 06/28/18 22:10 Oxygen Delivery Method Room Air 07/05/18 15:40 Oxygen Flow Rate 0 07/05/18 15:40 Pain Level 4 07/05/18 15:58 Comment 07/02/18 08:30 Intake & Output 07/04/18 07/05/18 07/05/18 23:59 11:59 23:59 Intake Total 1178.667 / 2601.167 1260.000 / 1587.000 327 / 1587.000 Output Total 3250 / 4325 105 / 1195 1090 / 1195 Balance -2071.333 / -3851.876 2746.000 / 392.000 -763 / 392.000 Intake: IV 578.667 / 981.167 660.000 / 737.000 77 / 737.000 Oral 600 / 1620 600 / 850 250 / 850 Output: Drainage 50 / 125 105 / 145 40 / 145 Right Lower Abdomen 50 / 125 105 / 145 40 / 145 Urine 3200 / 4200 1050 / 1050 Other: Urine Color Pale Yellow Yellow Yellow Urine Appearance Clear Clear Clear Urine Odor None None Comment Incontinent x1 of a moderate amount of urine in the briefs. Pt. sat down on the toilet and forgot to remove her briefs before voiding. Briefs were changed. Void x1 in the toilet. Voiding Methods Toilet Diaper Toilet Incontinent Labs on day of discharge: Labs from last 24 hours 07/05/18 06:35 Magnesium 1.6 L [facility] Medical History Raynaud's disease (Acute) Primary osteoarthritis of left knee (Acute 07/30/15) PMR (polymyalgia rheumatica) (Acute 01/15/16) Osteoporosis (Acute) Osteopenia (Acute 07/30/16) Obstructive sleep apnea syndrome (Acute) Non-alcoholic fatty liver disease (Acute) Memory impairment (Acute 06/18/94) Increased body mass index (Acute) Hypothyroidism (Acute 04/05/12) Fracture, calcaneus closed (Acute 09/19/14) Excessive sweating (Acute 06/02/16) Depressive disorder (Acute) Colon polyp (Acute 06/28/18) Cataract (Acute 07/28/14) Benign paroxysmal positional vertigo (Acute) Abdominal pain (Acute 10/31/13) Insomnia (Acute) Tuberculosis (Chronic) Surgical History S/P exploratory laparotomy (Acute ~06/28/18) H/O dilation and curettage (Acute) S/P tonsillectomy (Acute) Abdominal hysterectomy (~1975) Appendectomy Bilateral salpingectomy with oophorectomy (~1975) Colonoscopy - MAC EGD - MAC (~2003) Laparoscopic, Ovarian Cystectomy Rotator Cuff Repair Family History Mother Heart disease Father Stroke Sister No problems noted. Brother No problems noted. Grandfather Essential hypertension Heart disease Grandfather No problems noted. 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
== END 2018-07-05 17:55 | disposition home or self-care (01) | DRG 907 ==
LOC: ER 17:34 → MS 23:16 → ER 06-29 09:54 → MS 06-29 09:55
PROVIDERS: Surgery; Admitting Provider Surgery; Emergency Provider Physician Assistant; PCP Family Medicine; Visit Provider Surgery
PROC: 0DBN0ZZ Excision of Sigmoid Colon, Open Approach (ICD-10-PCS; CPT 49000; principal; 2018-06-28 17:25)
DX: K91.71 Accidental puncture and laceration of a digestive system organ or structure during a digestive system procedure (principal); K63.1 Perforation of intestine (nontraumatic); K57.32 Diverticulitis of large intestine without perforation or abscess without bleeding; Q43.8 Other specified congenital malformations of intestine; A15.9 Respiratory tuberculosis unspecified; K66.0 Peritoneal adhesions (postprocedural) (postinfection); G89.18 Other acute postprocedural pain; J02.9 Acute pharyngitis, unspecified; E83.42 Hypomagnesemia; G47.33 Obstructive sleep apnea (adult) (pediatric); E03.9 Hypothyroidism, unspecified; D64.9 Anemia, unspecified; E87.6 Hypokalemia; R41.82 Altered mental status, unspecified; F32.9 Major depressive disorder, single episode, unspecified; G47.00 Insomnia, unspecified; M35.3 Polymyalgia rheumatica; M17.12 Unilateral primary osteoarthritis, left knee; D72.829 Elevated white blood cell count, unspecified
CPT/HCPCS: 44140; 44005; 36415; 45380; 80048; 80053; 83690; 85027; 88305; 93005; 96365; 96368; 96372; 96375; 99223; 99285; J1650; NC; 74019; 83735; 84132; 84484; 85014; 85018; 85025; 88307; 93010; J0131; J1100; J1200; J1885; J2250; J2270; J2405; J2543; J3480; J7509

== ENCOUNTER 2018-07-08 01:59 | Inpatient (IN) | payer MEDICARE, SELFPAY ==
--- NOTE | 2018-07-08 02:28 | ED.GENADUL_ITS ---
Discharge Plan Disposition Patient Disposition: [facility] INPATIENT Condition: Stable Discharge Details Chief Complaint: GI Bleed Clinical Impression: S/P exploratory laparotomy, GI bleed Primary Care Provider: Liz Granado ED Provider: Attila Amado [facility] and New Rx's Prescriptions: Continued bupropion HCl 300 mg tablet extended release 24 hr 300 mg PO QAM RF: 0 isoniazid 300 mg tablet 300 mg PO DAILY RF: 0 zolpidem 12.5 mg tablet,ext release multiphase 12.5 mg PO HS RF: 0 cholecalciferol (vitamin D3) 1,000 unit tablet 500 unit PO DAILY RF: 0 methylprednisolone [Medrol] 4 mg tablet 4 mg PO DAILY RF: 0 pyridoxine (vitamin B6) 25 mg tablet 25 mg PO DAILY RF: 0 aspirin [Aspirin Low Dose] 81 MG tablet,delayed release (DR/EC) 81 mg PO DAILY RF: 0 clotrimazole 45 GM cream 45 gm Topical BID PRNQty: 1 RF: 2 nystatin 60 GM powder 60 gm Topical DAILY Qty: 1 RF: 2 folic acid 1 MG tablet 1 mg PO DAILY Qty: 90 RF: 4 ferrous gluconate 324 MG tablet 324 mg PO DAILY Qty: 30 RF: 4 Finacea 50 GM gel 50 gm Topical BID Qty: 1 RF: 3 furosemide 20 MG tablet 20 mg PO DAILY Qty: 30 RF: 3 mirtazapine 7.5 MG tablet 7.5 mg PO HS Qty: 90 RF: 2 methotrexate sodium 2.5 mg tablet 15 mg PO .weekly Qty: 4 RF: 0 levothyroxine 100 mcg tablet 100 mcg PO DAILY Qty: 90 RF: 2 ascorbic acid (vitamin C) [Vitamin C] 500 MG tablet 500 mg PO DAILY RF: 0 ibuprofen [IBU] 600 mg Tablet 600 mg PO Q6H PRN PRN (Reason: Pain) Qty: 30 RF: 0 oxycodone 5 mg Tablet 5 mg PO Q6H PRN (Reason: Pain) Qty: 20 RF: 0 polyethylene glycol 3350 [Miralax] 17 gram/dose powder 17 gm PO DAILY PRN (Reason: constipation) Qty: 238 RF: 0 Medical Decision Making Patient's and rectal exam performed with female aboriginal education teacher present. There is no evidence of vaginal bleeding. There is no evidence of active rectal ble eding. However, Hemoccult stool of somewhat reddish/brown and Hemoccult positive. Johnson ordered to be placed to rule out gross hematuria. There is no bright red blood anywhere currently. IV was established and laboratory studies ordered. Johnson urine is negative for gross hematuria. Johnson was discontinued. Laboratory studies show a white count of 13.5. Hemoglobin stable at 10. Chemistries unremarkable. There is no bright red blood currently. Abdominal exam is relatively benign except for pain in the lower abdomen which she has had since discharge. Case discussed with surgeon on-call, Dr. Young. He is coming to see the patient. Patient to be admitted to the surgical service for further management. She has been hemodynamically stable here in the department. Medical Records Medical records reviewed: Yes I reviewed the patient's medical records. Lab Data Lab results reviewed: Yes I reviewed the patient's lab results. HPI General Mode of arrival: wheelchair . Date/Time Provider Initiated Documentation: 07/08/18 02:27 . Limitations to Documentation: no limitations . Information obtained by: patient and old records reviewed . HPI Narrative: Patient presents to the ED for evaluation of bleeding. Patient reports bleeding on the floor from either her vagina or her rectum but she is not sure. She had presented for a routine colonoscopy on the of this month. She came back that evening and was found to have a perforation. She subsequently underwent resection and reanastomosis. She had a fairly uneventful postop course. She was discharged home from the hospital 2 days ago on Thursday. At no point did she have any bleeding until tonight. She continues to have some abdominal pain which she has had since discharge. She has had no fever. She has had no nausea vomiting. She denies urinary symptoms. The incision has been healing. Related Data Home Medications Medication Instructions Recorded Confirmed aspirin [Aspirin Low Dose] 81 mg PO DAILY tab-cap 12/20/12 07/08/18 ascorbic acid (vitamin C) [Vitamin 500 mg PO DAILY 01/01/17 07/08/18 C] clotrimazole 45 gm TOPICAL BID PRN #1 script 03/05/17 07/08/18 nystatin 60 gm TOPICAL DAILY #1 gm 03/05/17 07/08/18 ferrous gluconate 324 mg PO DAILY #30 tab 08/27/17 07/08/18 folic acid 1 mg PO DAILY #90 tab-cap 08/27/17 07/08/18 Finacea 50 gm TOPICAL BID #1 script 11/16/17 07/08/18 furosemide 20 mg PO DAILY #30 tab-cap 12/21/17 07/08/18 mirtazapine 7.5 mg PO HS #90 tab-cap 02/02/18 07/08/18 methotrexate sodium 2.5 mg tablet 15 mg PO .weekly #4 tab 04/07/18 07/08/18 methylprednisolone 4 mg tablet 4 mg PO DAILY tab 04/07/18 07/08/18 levothyroxine 100 mcg tablet 100 mcg PO DAILY #90 tab-cap 05/14/18 07/08/18 pyridoxine (vitamin B6) 25 mg 25 mg PO DAILY 05/19/18 07/08/18 tablet bupropion HCl XL 300 mg 24 hr 300 mg PO QAM 06/14/18 07/08/18 tablet, extended release cholecalciferol (vitamin D3) 1,000 500 unit PO DAILY tab 06/14/18 07/08/18 unit tablet isoniazid 300 mg tablet 300 mg PO DAILY 06/14/18 07/08/18 zolpidem ER 12.5 mg 12.5 mg PO HS tab 06/14/18 07/08/18 tablet,extended release,multiphase ibuprofen [IBU] 600 mg PO Q6H PRN PRN #30 tab 07/05/18 07/08/18 oxycodone 5 mg PO Q6H PRN #20 tab 07/05/18 07/08/18 polyethylene glycol 3350 [Miralax] 17 gm PO DAILY PRN #238 gm 07/05/18 07/08/18 Previous Rx's Medication Instructions Recorded ferrous gluconate 324 mg PO DAILY #30 tab 08/27/17 folic acid 1 mg PO DAILY #90 tab-cap 08/27/17 Finacea 50 gm TOPICAL BID #1 script 11/16/17 furosemide 20 mg PO DAILY #30 tab-cap 12/21/17 mirtazapine 7.5 mg PO HS #90 tab-cap 02/02/18 levothyroxine 100 mcg tablet 100 mcg PO DAILY #90 tab-cap 05/14/18 ibuprofen [IBU] 600 mg PO Q6H PRN PRN #30 tab 07/05/18 oxycodone 5 mg PO Q6H PRN #20 tab 07/05/18 polyethylene glycol 3350 [Miralax] 17 gm PO DAILY PRN #238 gm 07/05/18 Allergies Allergy/AdvReac Type Severity Reaction Status Date / Time banana Allergy Intermediate Other (See Unverified 07/08/18 02:54 Comment) cucumber Allergy Intermediate Other (See Unverified 07/08/18 02:54 Comment) Iodinated Contrast- Oral and Allergy Unknown SWELLING; Unverified 07/08/18 02:54 IV Dye RASH [Iodinated Contrast Media - IV Dye] chloramphenicol AdvReac Severe KIDNEY Unverified 07/08/18 02:54 FAILURE tetracycline AdvReac Severe KIDNEY Unverified 07/08/18 02:54 FAILURE melon AdvReac Intermediate Cantaloupe-Abd Verified 07/08/18 02:54 pain, diarrhea ADHESIVE TAPE Allergy Intermediate takes skin Uncoded 07/08/18 02:54 off SUTURE MATERIAL Allergy Intermediate Purluent Uncoded 07/08/18 02:54 Drainage General JOSHUA: 2 Review of Systems Constitutional Denies chills, Denies fever(s) and Denies headache(s) Eyes Denies change in vision and Denies eye pain ENT Denies headache(s), Denies nasal congestion, Denies neck pain and Denies sinus pain Cardiovascular Denies chest pain, Denies syncope and Denies dyspnea Respiratory Denies cough and Denies dyspnea Gastrointestinal Reports abdominal pain, Denies diarrhea and Denies vomiting Genitourinary Denies dysuria, Denies pelvic pain and Denies flank pain Musculoskeletal Denies back pain, Denies neck pain and Denies tingling Integumentary/Breasts Denies erythema and Reports wounds Neurologic Denies syncope, Denies headache(s), Denies focal weakness and Denies tingling [facility] Medical History Raynaud's disease (Acute) Primary osteoarthritis of left knee (Acute 07/30/15) PMR (polymyalgia rheumatica) (Acute 01/15/16) Osteoporosis (Acute) Osteopenia (Acute 07/30/16) Obstructive sleep apnea syndrome (Acute) Non-alcoholic fatty liver disease (Acute) Memory impairment (Acute 06/18/94) Increased body mass index (Acute) Hypothyroidism (Acute 04/05/12) Fracture, calcaneus closed (Acute 09/19/14) Excessive sweating (Acute 06/02/16) Depressive disorder (Acute) Colon polyp (Acute 06/28/18) Cataract (Acute 07/28/14) Benign paroxysmal positional vertigo (Acute) Abdominal pain (Acute 10/31/13) Insomnia (Acute) Tuberculosis (Chronic) Surgical History S/P exploratory laparotomy (Acute ~06/28/18) H/O dilation and curettage (Acute) S/P tonsillectomy (Acute) Abdominal hysterectomy (~1975) Appendectomy Bilateral salpingectomy with oophorectomy (~1975) Colonoscopy - MAC EGD - MAC (~2003) Laparoscopic, Ovarian Cystectomy Rotator Cuff Repair Family History Mother Heart disease Father Stroke Sister No problems noted. Brother No problems noted. Grandfather Essential hypertension Heart disease Grandfather No problems noted. 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/Tobacco Use Status: Former Tobacco Use alcohol intake: current alcohol intake frequency: a few times a month additional social history: DECREASED VISION Exam Const General: cooperative and comfortable Nutritional Appearance: obese Orientation: alert and oriented x3 HENMT Head: normocephalic and atraumatic Neck Neck: trachea midline and supple Resp Effort & Inspection: normal respiratory effort Auscultation: clear to auscultation bilaterally Cardio Rate: regular rate Rhythm: regular rhythm Heart Sounds: S1 normal and S2 normal GI Palpation: soft, no guarding and tender periumbilically and suprapubicly Rectal Exam - female: visual inspection normal, heme positive stool, No hemorrhoids and No tenderness External Female Exam: external appearance normal and other (No bleeding) Skin General skin exam: no rashes or lesions noted Wounds: wounds noted (Abdominal incision is clean dry and intact without erythema or discharge.) Neuro General: alert, oriented x3, no focal motor deficits and CN's II-XI intact bilaterally Extrem General: normal to inspection and full ROM
[2018-07-08 02:37] VITALS: BP 126/77; PULSE 96; RESP 16; TEMP 36.6; O2SAT 96
[2018-07-08 03:29] LABS: Abs Immature Grans 0.06 k/cumm (0.0-0.09); HGB 10.2 g/dL (12.0-15.5); Mean Corp. HGB Concentration 31.9 g/dL (32.0-36.0); Mean Corpuscular Volume 90.9 fL (80-95); Mean Platelet Volume 9.8 fL (8.0-11.0); Platelet Count 395 x1000/uL (130-400); RBC 3.52 m/cumm (4.00-5.20); RBC Distribution Width 15.5 % (11.7-14.6); White Blood Cell Count 13.48 k/cumm (4.4-10.8)
[2018-07-08 03:43] LABS: PTT Activated 21.7 sec (21.0-31.4); Prothrombin Time 11.5 sec (9.3-11.0)
[2018-07-08 03:45] LABS: INR 1.1 (1.0-3.5)
[2018-07-08 03:46] LABS: ALT 18 U/L (12-78); AST 15 U/L (15-37); Albumin 2.3 g/dL (3.4-5.0); Alkaline Phosphatase 61 U/L (46-116); Anion Gap 10.7 mmol/L (3-11); BUN 13 mg/dL (7-18); Bilirubin, Total 0.4 mg/dL (0.2-1.0); CO2 29.3 mmol/L (21.0-32.0); CREATININE 1.14 mg/dL (0.55-1.02); Chloride 96 mmol/L (98-107); Estimated GFR 46.34 (mL/min/1.73m2); Glucose 121 mg/dL (70-100); Potassium 3.3 mmol/L (3.5-5.1); Sodium 136 mmol/L (136-145); Total Protein 6.6 g/dL (6.4-8.2)
[2018-07-08 03:55] LABS: Diff Comment Manual Differential
[2018-07-08 03:56] LABS: Absolute Eosinophil Count 0.13 k/cumm (0.0-0.7); Absolute Lymphocyte Count 2.43 k/cumm (1.2-3.4); Absolute Monocyte Count 1.75 k/cumm (0.11-0.7); Absolute Neutrophil Count 9.17 k/cumm (1.2-6.7); Atypical Lymphocytes % 5
[2018-07-08 04:45] LABS: Bilirubin Negative (Negative); Blood Negative (Negative); Clarity Clear; Glucose Negative (Negative); Ketones Negative (Negative); Leukocyte Esterase Negative (Negative); Nitrite Negative (Negative); Urobilinogen 0.2 EU/dL (Up TO 0.2); pH 6.5 (5-8)
[2018-07-08] MEDS: Ondansetron 4 MG/2 ML VIAL IVP ×2 (07:06→16:51)
[2018-07-08] MEDS: oxyCODONE 5 MG TAB PO (07:15)
--- NOTE | 2018-07-08 07:29 | W.PM.HP.N ---
Date of service: 07/08/18 Time of Service: 07:29 Assessment and Plan (1) S/P exploratory laparotomy: Start date: 07/08/18 Start time: 07:44 Current visit: No Status: Acute colon resection sp perforation pt having BM (2) Lower gastrointestinal bleed: Start date: 07/08/18 Start time: 07:44 Current visit: Yes Status: Acute 2 episodes of bleeding serial hh poss rescope if does not resolve (3) Anemia: Start date: 07/08/18 Start time: 07:44 Current visit: No Status: Chronic serial hh stable Qualifiers: Anemia type: iron deficiency Iron deficiency anemia type: other iron deficiency Vitamin B12 deficiency anemia type: Folate deficiency anemia type: Bone marrow failure anemia type: Hemolytic anemia type: Other causes of anemia: Chronic kidney disease stage: Qualified Code(s): D50.8 - Other iron deficiency anemias (4) Postoperative abdominal pain: Start date: 07/08/18 Start time: 07:44 Current visit: Yes Status: Acute pain meds History of Present Illness Chief Complaint: Bleeding per rectum postop Narrative: pt notice blood on the floor and in her undergarments Review of Systems Review of Systems min abd pain RLQ, wound dressing off some dependent erythema in the lower part of the wound sugestive of infection All systems reviewed & are unremarkable except as noted in HPI and below Gastrointestinal Reports as per HPI, Reports abdominal pain and Reports melena PFSH Medical History Raynaud's disease (Acute) Primary osteoarthritis of left knee (Acute 07/30/15) PMR (polymyalgia rheumatica) (Acute 01/15/16) Osteoporosis (Acute) Osteopenia (Acute 07/30/16) Obstructive sleep apnea syndrome (Acute) Non-alcoholic fatty liver disease (Acute) Memory impairment (Acute 06/18/94) Increased body mass index (Acute) Hypothyroidism (Acute 04/05/12) Fracture, calcaneus closed (Acute 09/19/14) Excessive sweating (Acute 06/02/16) Depressive disorder (Acute) Colon polyp (Acute 06/28/18) Cataract (Acute 07/28/14) Benign paroxysmal positional vertigo (Acute) Abdominal pain (Acute 10/31/13) Insomnia (Acute) Tuberculosis (Chronic) Surgical History S/P exploratory laparotomy (Acute ~06/28/18) H/O dilation and curettage (Acute) S/P tonsillectomy (Acute) Abdominal hysterectomy (~1975) Appendectomy Bilateral salpingectomy with oophorectomy (~1975) Colonoscopy - MAC EGD - MAC (~2003) Laparoscopic, Ovarian Cystectomy Rotator Cuff Repair Family History Mother Heart disease Father Stroke Sister No problems noted. Brother No problems noted. Grandfather Essential hypertension Heart disease Grandfather No problems noted. 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/Tobacco Use Status: Former Tobacco Use alcohol intake: current alcohol intake frequency: a few times a month additional social history: DECREASED VISION Meds Home Medications Medication Instructions Recorded Confirmed Type aspirin [Aspirin Low Dose] 81 mg PO DAILY tab-cap 12/20/12 07/08/18 History ascorbic acid (vitamin C) [Vitamin 500 mg PO DAILY 01/01/17 07/08/18 History C] clotrimazole 45 gm TOPICAL BID PRN #1 script 03/05/17 07/08/18 History nystatin 60 gm TOPICAL DAILY #1 gm 03/05/17 07/08/18 History ferrous gluconate 324 mg PO DAILY #30 tab 08/27/17 07/08/18 Rx folic acid 1 mg PO DAILY #90 tab-cap 08/27/17 07/08/18 Rx Finacea 50 gm TOPICAL BID #1 script 11/16/17 07/08/18 Rx furosemide 20 mg PO DAILY #30 tab-cap 12/21/17 07/08/18 Rx mirtazapine 7.5 mg PO HS #90 tab-cap 02/02/18 07/08/18 Rx methotrexate sodium 2.5 mg tablet 15 mg PO .weekly #4 tab 04/07/18 07/08/18 History methylprednisolone 4 mg tablet 4 mg PO DAILY tab 04/07/18 07/08/18 History levothyroxine 100 mcg tablet 100 mcg PO DAILY #90 tab-cap 05/14/18 07/08/18 Rx pyridoxine (vitamin B6) 25 mg 25 mg PO DAILY 05/19/18 07/08/18 History tablet bupropion HCl XL 300 mg 24 hr 300 mg PO QAM 06/14/18 07/08/18 History tablet, extended release cholecalciferol (vitamin D3) 1,000 500 unit PO DAILY tab 06/14/18 07/08/18 History unit tablet isoniazid 300 mg tablet 300 mg PO DAILY 06/14/18 07/08/18 History zolpidem ER 12.5 mg 12.5 mg PO HS tab 06/14/18 07/08/18 History tablet,extended release,multiphase ibuprofen [IBU] 600 mg PO Q6H PRN PRN #30 tab 07/05/18 07/08/18 Rx oxycodone 5 mg PO Q6H PRN #20 tab 07/05/18 07/08/18 Rx polyethylene glycol 3350 [Miralax] 17 gm PO DAILY PRN #238 gm 07/05/18 07/08/18 Rx Allergies Allergy/AdvReac Type Severity Reaction Status Date / Time banana Allergy Intermediate Other (See Unverified 07/08/18 02:54 Comment) cucumber Allergy Intermediate Other (See Unverified 07/08/18 02:54 Comment) Iodinated Contrast- Oral and Allergy Unknown SWELLING; Unverified 07/08/18 02:54 IV Dye RASH [Iodinated Contrast Media - IV Dye] chloramphenicol AdvReac Severe KIDNEY Unverified 07/08/18 02:54 FAILURE tetracycline AdvReac Severe KIDNEY Unverified 07/08/18 02:54 FAILURE melon AdvReac Intermediate Cantaloupe-Abd Verified 07/08/18 02:54 pain, diarrhea ADHESIVE TAPE Allergy Intermediate takes skin Uncoded 07/08/18 02:54 off SUTURE MATERIAL Allergy Intermediate Purluent Uncoded 07/08/18 02:54 Drainage Exam GI Inspection: abdominal wall ecchymosis and edema Palpation: soft and tender Percussion: normal to percussion Auscultation: normal bowel sounds Abdomen image: 1. midline incision Results Labs : 07/08/18 03:15 07/08/18 03:15 Laboratory Results - last 24 hr 07/08/18 07/08/18 07/08/18 03:15 03:15 03:15 WBC 13.48 H RBC 3.52 L Hgb 10.2 L Hct 32.0 L MCV 90.9 MCH 29.0 MCHC 31.9 L RDW 15.5 H Plt Count 395 D MPV 9.8 Immature Gran % 0.0 Neutrophils % 66.0 Lymphocytes % 13.0 Monocytes % 13.0 Eosinophils % 1.0 Basophils % 0.0 Absolute Neutrophils 9.17 H Band Neutrophils 2.0 Absolute Lymphocytes 2.43 Absolute Monocytes 1.75 H Absolute Eosinophils 0.13 Absolute Basophils 0.00 Differential Comment Manual differential Atypical Lymphocytes 5 RBC Morphology See below PT 11.5 H INR 1.1 APTT 21.7 Sodium 136 Potassium 3.3 L Chloride 96 L Carbon Dioxide 29.3 Anion Gap 10.7 BUN 13 Creatinine 1.14 H Estimated GFR/1.73 m2 46.34 Glucose 121 H Calcium 9.0 Total Bilirubin 0.4 AST 15 ALT 18 Alkaline Phosphatase 61 Total Protein 6.6 Albumin 2.3 L Urine Color Urine Clarity Urine pH Ur Specific [place] Urine Protein Urine Ketones Urine Blood Urine Nitrite Urine Bilirubin Urine Urobilinogen Ur Leukocyte Esterase Urine Glucose Patient ABO/Rh Antibody Screen 07/08/18 07/08/18 03:35 04:35 WBC RBC Hgb Hct MCV MCH MCHC RDW Plt Count MPV Immature Gran % Neutrophils % Lymphocytes % Monocytes % Eosinophils % Basophils % Absolute Neutrophils Band Neutrophils Absolute Lymphocytes Absolute Monocytes Absolute Eosinophils Absolute Basophils Differential Comment Atypical Lymphocytes RBC Morphology PT INR APTT Sodium Potassium Chloride Carbon Dioxide Anion Gap BUN Creatinine Estimated GFR/1.73 m2 Glucose Calcium Total Bilirubin AST ALT Alkaline Phosphatase Total Protein Albumin Urine Color Yellow Urine Clarity Clear Urine pH 6.5 Ur Specific [place] 1.010 Urine Protein Negative Urine Ketones Negative Urine Blood Negative Urine Nitrite Negative Urine Bilirubin Negative Urine Urobilinogen 0.2 Ur Leukocyte Esterase Negative Urine Glucose Negative Patient ABO/Rh O Positive Antibody Screen Negative Last Vital Signs Temp 36.6 C 07/08/18 02:37 Pulse 96 H 07/08/18 02:37 Resp 16 07/08/18 02:37 BP 126/77 07/08/18 02:37 Pulse Ox 96 07/08/18 02:37
[2018-07-08 08:45] VITALS: BP 138/43; PULSE 79; RESP 16; TEMP 36.7; O2SAT 95
[2018-07-08 08:47] VITALS: BP 156/72; PULSE 106; RESP 18; TEMP 36.9; O2SAT 95
--- NOTE | 2018-07-08 09:32 | PDOC.CMIN ---
- If Service Date Differs Date of service: 07/08/18 Time of Service: 09:32 Care Management Initial Assess REASON FOR HOSPITALIZATION:: GI Bleed. PAST MEDICAL HISTORY/PAST SURGICAL HISTORY:: Perforated bowel d/t complications from colonoscopy; (06/28/18), benign paroxysmal positional vertigo, cataract, colon polyp, depressive disorder, calcaneus closed fracture, hypothyroidism, increased BMI, insomnia, memory impairment (h/o closed head injury), non-alcoholic fatty liver disease, obstructive sleep apnea, osteopenia, osteoperosis, PMR, osteoarthritis, Raynaud's disease, tuberculosis. Surgical hx: hysterectomy, appendectomy, bilateral salpingectomy with oophorectomy, colonoscopy, EGD, D&C, laparoscopic ovarian cystetomy, rotator cuff repair, tonsillectomy. PREVIOUS FUNCTIONAL STATUS/SOCIAL/FAMILY SUPPORTS:: Amanda resides in [place] with her , Ed. They have four adult children and 15 grandchildren; none of whom reside locally. Amanda is retired and reports that prior to the age of 66 she was not working and collecting disability. Her , Ed, works at [employer]. She is independent with her ADLs and transportation at baseline and reports that she uses a walker once in awhile as she occassionally gets dizzy. CURRENT FUNCTIONAL STATUS:: Amanda is lying in bed with her , Ed, at bedside. She is engaged in conversation, makes good eye contact, and is talkative. Amanda is a re-admission following a perforated bowel. She discharged from [facility] on 07/05 and reports that all was going well for several days; up until yesterday when she had two instances of bleeding/fluid. Amanda reports that x2, she was lying in bed when she noticed 'a lot of wetness' in the bed. The first time it happended she reported she could not tell if it was urine or blood, but did not smell like urine. The second time she reports there was a lot of blood. Ed called EMS and they advised Amanda return to the hospital. Amanda has elected to update her Advanced Directives and has done so with CM assistance. Amanda has changed her code status to DNR/DNI. Copies of her AD have been faxed to access for the patient's chart and the AD Registry. Dr. Schwarz has been made aware of Amanda's change in code status. Pat reports that she is nauseous and has vomited once since admission. ADVANCE DIRECTIVES:: On file at [facility]. Health Care Agent: Matt Colon. Has patient been provided with information about the portal?: Yes Did the patient sign up for the portal?: No CODE STATUS:: DNR/DNI (Pat has changed her code status from Full Code to DNR/DNI; completing her advanced directives on 07/08/2018.) INSURANCE COVERAGE / FINANCIAL ISSUES:: A[employer], Medicare. CURRENT HOME/COMMUNITY SERVICES/EQUIPMENT:: No current home or community services. FWW for occassional use. PRIMARY CARE PHYSICIAN:: Liz Granado MD. POTENTIAL DISCHARGE NEEDS:: Follow up appointment with surgical services. PATIENT/FAMILY EDUCATION NEEDS:: Discharge education, any limitations, and follow up plan of care. Ask Me Three discussion. ANTICIPATED BARRIERS TO DISCHARGE:: No anticipated barriers to discharge. TRANSPORTATION:: Pat will transport via private vehicle with her , Ed. PLAN:: Pat will discharge when medically ready per MD. Anticipate patient will discharge with no services and follow up with surgical services. will continue to offer support to patient and care team regarding discharge planning and disposition. Readmission - Within the Past 30 Days Yes or No: Y - Date of First Admission Date of 1st Admission: 06/28/18 - Date of this Admission Date of Admission: 07/08/18 This admission was: Through ED - Office Visit Since 1st Admission Have you seen your PCP in the office since discharge?: No Had an appointment Been Scheduled?: Yes Date of Scheduled Appointment: Appointment had been scheduled for 07/09 - Speicalist Appointments Have you seen any other specialist since your 1st Admission?: No - I. Interview patient and/or Family Difficulty reaching your doctor or getting an office appt?: No Have you had trouble purchasing/ or taking medication?: No Have you had trouble with getting meals at home?: No Did you feel ready for discharge when you left the last time: Yes What services were received?: No services at discharge. Did you call your physician beore you came to the ED?: No Did your physician tell you to come in?: No How do you think you became sick enough to come back?: Unsure. - If the patient had a VNA ordered Did the patient have a VNA order?: No - ED visits How many ED visits in the past 12 months: 2
--- NOTE | 2018-07-08 09:36 | INITIAL_ITS ---
- If Service Date Differs Date of service: 07/08/18 Time of Service: 09:32 Care Management Initial Assess REASON FOR HOSPITALIZATION:: GI Bleed. PAST MEDICAL HISTORY/PAST SURGICAL HISTORY:: Perforated bowel d/t complications from colonoscopy; (06/28/18), benign paroxysmal positional vertigo, cataract, colon polyp, depressive disorder, calcaneus closed fracture, hypothyroidism, increased BMI, insomnia, memory impairment (h/o closed head injury), non-alcoh olic fatty liver disease, obstructive sleep apnea, osteopenia, osteoperosis, PMR, osteoarthritis, Raynaud's disease, tuberculosis. Surgical hx: hysterectomy, appendectomy, bilateral salpingectomy with oophorectomy, colonoscopy, EGD, D&C, laparoscopic ovarian cystetomy, rotator cuff repair, tonsillectomy. PREVIOUS FUNCTIONAL STATUS/SOCIAL/FAMILY SUPPORTS:: Amanda resides in [place] with her , Ed. They have four adult children and 15 grandchildren; none of whom reside locally. Amanda is retired and reports that prior to the age of 66 she was not working and collecting disability. Her , Ed, works at [employer]. She is independent with her ADLs and transportation at baseline and reports that she uses a walker once in awhile as she occassionally gets dizzy. CURRENT FUNCTIONAL STATUS:: Amanda is lying in bed with her , Ed, at bedside. She is engaged in conversation, makes good eye contact, and is talkative. Amanda is a re-admission following a perforated bowel. She discharged from [facility] on 07/05 and reports that all was going well for several days; up until yesterday when she had two instances of bleeding/fluid. Amanda reports that x2, she was lying in bed when she noticed 'a lot of wetness' in the bed. The first time it happended she reported she could not tell if it was urine or blood, but did not smell like urine. The second time she reports there was a lot of blood. Ed called EMS and they advised Pat return to the hospital. Amanda has elected to update her Advanced Directives and has done so with CM assistance. Amanda has changed her code status to DNR/DNI. Copies of her AD have been faxed to access for the patient's chart and the AD Registry. Dr. Schwarz has been made aware of Amanda's change in code status. Pat reports that she is nauseous and has vomited once since admission. ADVANCE DIRECTIVES:: On file at [facility]. Health Care Agent: Matt Colon. Has patient been provided with information about the portal?: Yes Did the patient sign up for the portal?: No CODE STATUS:: DNR/DNI (Pat has changed her code status from Full Code to DNR/DNI; completing her advanced directives on 07/08/2018.) INSURANCE COVERAGE / FINANCIAL ISSUES:: [employer], Medicare. CURRENT HOME/COMMUNITY SERVICES/EQUIPMENT:: No current home or community services. FWW for occassional use. PRIMARY CARE PHYSICIAN:: Liz Granado MD. POTENTIAL DISCHARGE NEEDS:: Follow up appointment with surgical services. PATIENT/FAMILY EDUCATION NEEDS:: Discharge education, any limitations, and follow up plan of care. Ask Me Three discussion. ANTICIPATED BARRIERS TO DISCHARGE:: No anticipated barriers to discharge. TRANSPORTATION:: Pat will transport via private vehicle with her , Ed. PLAN:: Pat will discharge when medically ready per MD. Anticipate patient will discharge with no services and follow up with surgical services. will continue to offer support to patient and care team regarding discharge planning and disposition. Readmission - Within the Past 30 Days Yes or No: Y - Date of First Admission Date of 1st Admission: 06/28/18 - Date of this Admission Date of Admission: 07/08/18 This admission was: Through ED - Office Visit Since 1st Admission Have you seen your PCP in the office since discharge?: No Had an appointment Been Scheduled?: Yes Date of Scheduled Appointment: Appointment had been scheduled for 07/09 - Speicalist Appointments Have you seen any other specialist since your 1st Admission?: No - I. Interview patient and/or Family Difficulty reaching your doctor or getting an office appt?: No Have you had trouble purchasing/ or taking medication?: No Have you had trouble with getting meals at home?: No Did you feel ready for discharge when you left the last time: Yes What services were received?: No services at discharge. Did you call your physician beore you came to the ED?: No Did your physician tell you to come in?: No How do you think you became sick enough to come back?: Unsure. - If the patient had a VNA ordered Did the patient have a VNA order?: No - ED visits How many ED visits in the past 12 months: 2
[2018-07-08 12:13] LABS: RBC Morphology Normal
--- NOTE | 2018-07-08 14:14 | W.PM.PROGNOT ---
Date of Service Date of service: 07/08/18 Time of Service: 14:14 Assessment and Plan (1) Anemia: Current visit: No Status: Chronic A\\ Improved anemia from discharge. NO more bleeding since admission P\\ Watch overnight. CBC and BMP in am Qualifiers: Anemia type: iron deficiency Iron deficiency anemia type: other iron deficiency Vitamin B12 deficiency anemia type: Folate deficiency anemia type: Bone marrow failure anemia type: Hemolytic anemia type: Other causes of anemia: Chronic kidney disease stage: Qualified Code(s): D50.8 - Other iron deficiency anemias (2) Bilious emesis: Current visit: Yes Status: Acute A\\ Nausea and emesis. Patient is hungry. Passing flatus and having soft brown BM's P\\ Have patient try some crackers and tea. If able to tolerate then advance to regular diet Qualifiers: Nausea presence: with nausea Qualified Code(s): R11.14 - Bilious vomiting (3) Wound discharge: Current visit: Yes Status: Acute A\\ small amount of bloody discharge from most dependent portion of the wound. 4 maame removed. Hematoma and old bloody discharge removed. Wound packed. P\\ Dressing changes BID Subjective Interval history since last seen: Amanda is ding OK. She had 2 bouts of emesis which looked like pure bile. She hasn't een anything all day and feels hungry and nauseas at the same time. She is passing gas and having soft brown stools. NO more blood noticed. Amanda is wondering whether the blood came from her incision. No fevers or chills. Mild tendeerness in the RLQ that comes and goes. Exam Resp Auscultation: clear to auscultation bilaterally Cardio Rate: regular rate Rhythm: regular rhythm Heart Sounds: no gallops, no murmurs and no rubs GI Inspection: incision (dependent edema noted with some bruising and some redness. ) Palpation: soft, no hepatosplenomegaly and tender (mild RLQ. No guarding or rebound) Auscultation: normal bowel sounds Abdomen image: 1. laparotomy incision. 2. SALVATORE drain wound-closed 3. mild ecchymosis and erythema Objective Objective Clinical Data: Abnormal lab results 07/08/18 07/08/18 07/08/18 Range/Units 03:15 03:15 03:15 WBC 13.48 H (4.4-10.8) k/cumm RBC 3.52 L (4.00-5.20) m/cumm Hgb 10.2 L (12.0-15.5) g/dL Hct 32.0 L (36.0-46.0) % MCHC 31.9 L (32.0-36.0) g/dL RDW 15.5 H (11.7-14.6) % Absolute Neutrophils 9.17 H (1.2-6.7) k/cumm Absolute Monocytes 1.75 H (0.11-0.7) k/cumm PT 11.5 H (9.3-11.0) sec Potassium 3.3 L (3.5-5.1) mmol/L Chloride 96 L (98-107) mmol/L Creatinine 1.14 H (0.55-1.02) mg/dL Glucose 121 H (70-100) mg/dL Albumin 2.3 L (3.4-5.0) g/dL Vital Signs Temperature 98.4 F 07/08/18 08:47 Temperature Source Temporal Artery Scan 07/08/18 02:37 Pulse 106 H 07/08/18 08:47 Pulse Rhythm Regular 07/08/18 08:47 Respiratory Rate 18 07/08/18 08:47 Respiratory Effort Non-Labored 07/08/18 08:47 Respiratory Depth Normal 07/08/18 08:47 Blood Pressure 156/72 H 07/08/18 08:47 Pulse Oximetry 95 07/08/18 08:47 Oxygen Delivery Method Room Air 07/08/18 08:47 Oxygen Flow Rate 0 07/08/18 08:47 Pain Level 2 07/08/18 08:45 Comment 07/08/18 02:37 Intake & Output 07/07/18 07/08/18 07/08/18 23:59 11:59 23:59 Output Total 500 / 725 225 / 725 Balance -500 / -725 -225 / -725 Weight 184 lb 4.903 oz Output: Emesis 500 / 725 225 / 725 Other: Urine Appearance Clear Stool Occult Blood Positive Stool Size Small Stool Characteristics Soft Brown Emesis Description Bile Bile Laboratory Results WBC 13.48 k/cumm (4.4-10.8) H 07/08/18 03:15 RBC 3.52 m/cumm (4.00-5.20) L 07/08/18 03:15 Hgb 10.2 g/dL (12.0-15.5) L 07/08/18 03:15 Hct 32.0 % (36.0-46.0) L 07/08/18 03:15 MCV 90.9 fL (80-95) 07/08/18 03:15 MCH 29.0 pg (27.0-33.0) 07/08/18 03:15 MCHC 31.9 g/dL (32.0-36.0) L 07/08/18 03:15 RDW 15.5 % (11.7-14.6) H 07/08/18 03:15 Plt Count 395 x1000/uL (130-400) D 07/08/18 03:15 MPV 9.8 fL (8.0-11.0) 07/08/18 03:15 Immature Gran % 0.0 07/08/18 03:15 Neutrophils % 66.0 07/08/18 03:15 Lymphocytes % 13.0 07/08/18 03:15 Monocytes % 13.0 07/08/18 03:15 Eosinophils % 1.0 07/08/18 03:15 Basophils % 0.0 07/08/18 03:15 Absolute Neutrophils 9.17 k/cumm (1.2-6.7) H 07/08/18 03:15 Band Neutrophils 2.0 % 07/08/18 03:15 Absolute Lymphocytes 2.43 k/cumm (1.2-3.4) 07/08/18 03:15 Absolute Monocytes 1.75 k/cumm (0.11-0.7) H 07/08/18 03:15 Absolute Eosinophils 0.13 k/cumm (0.0-0.7) 07/08/18 03:15 Absolute Basophils 0.00 k/cumm (0.0-0.2) 07/08/18 03:15 Differential Comment Manual differential 07/08/18 03:15 Atypical Lymphocytes 5 07/08/18 03:15 RBC Morphology Normal 07/08/18 03:15 PT 11.5 sec (9.3-11.0) H 07/08/18 03:15 INR 1.1 (1.0-3.5) 07/08/18 03:15 APTT 21.7 sec (21.0-31.4) 07/08/18 03:15 Sodium 136 mmol/L (136-145) 07/08/18 03:15 Potassium 3.3 mmol/L (3.5-5.1) L 07/08/18 03:15 Chloride 96 mmol/L (98-107) L 07/08/18 03:15 Carbon Dioxide 29.3 mmol/L (21.0-32.0) 07/08/18 03:15 Anion Gap 10.7 mmol/L (3-11) 07/08/18 03:15 BUN 13 mg/dL (7-18) 07/08/18 03:15 Creatinine 1.14 mg/dL (0.55-1.02) H 07/08/18 03:15 Estimated GFR/1.73 m2 46.34 (mL/min/1.73m2) 07/08/18 03:15 Glucose 121 mg/dL (70-100) H 07/08/18 03:15 Calcium 9.0 mg/dL (8.5-10.1) 07/08/18 03:15 Total Bilirubin 0.4 mg/dL (0.2-1.0) 07/08/18 03:15 AST 15 U/L (15-37) 07/08/18 03:15 ALT 18 U/L (12-78) 07/08/18 03:15 Alkaline Phosphatase 61 U/L (46-116) 07/08/18 03:15 Total Protein 6.6 g/dL (6.4-8.2) 07/08/18 03:15 Albumin 2.3 g/dL (3.4-5.0) L 07/08/18 03:15 Urine Color Yellow (Yellow) 07/08/18 03:35 Urine Clarity Clear 07/08/18 03:35 Urine pH 6.5 (5-8) 07/08/18 03:35 Ur Specific [place] 1.010 (1.005-1.025) 07/08/18 03:35 Urine Protein Negative mg/dL (Negative) 07/08/18 03:35 Urine Ketones Negative mg/dL (Negative) 07/08/18 03:35 Urine Blood Negative (Negative) 12/20/18 03:35 Urine Nitrite Negative (Negative) 07/08/18 03:35 Urine Bilirubin Negative (Negative) 07/08/18 03:35 Urine Urobilinogen 0.2 EU/dL (Up TO 0.2) 07/08/18 03:35 Ur Leukocyte Esterase Negative (Negative) 07/08/18 03:35 Urine Glucose Negative mg/dL (Negative) 07/08/18 03:35 Patient ABO/Rh O Positive 07/08/18 04:35 Antibody Screen Negative 07/08/18 04:35
[2018-07-08] MEDS: DEXTROSE 5%-0.45% SALINE 1,000 ML 80 ML IV (14:28)
[2018-07-08] MEDS: Ibuprofen 600 MG TAB PO (15:16)
[2018-07-08 15:21] VITALS: BP 146/76; PULSE 50; RESP 18; TEMP 37.4; O2SAT 92
[2018-07-08] MEDS: Normal Saline Flush 10 ML SYR IVP ×2 (16:52→20:52)
[2018-07-08] MEDS: Lidocaine 2% Jelly 6 ML SYR TP (18:28)
[2018-07-08 20:06] VITALS: BP 163/63; PULSE 53; RESP 18; TEMP 36.7; O2SAT 93
[2018-07-08] MEDS: HYDROmorphone 2 MG/ML VIAL IVP (20:51)
[2018-07-08] MEDS: LORazepam 2 MG/ML VIAL 0.25 MG IVP (20:56)
--- NOTE | 2018-07-08 21:14 | PGE_ITS ---
Date of Service Date of service: 07/08/18 Time of Service: 21:08 Assessment and Plan (1) Nausea & vomiting: Start date: 07/08/18 Start time: 21:11 Current visit: Yes Status: Acute NGT zofran (2) Postoperative ileus: Start date: 07/08/18 Start time: 21:11 Current visit: Yes Status: Acute ngt zofran pain Subjective Patient reports: nausea and vomiting Interval history since last seen: she had multiple episodes of vomiting Exam GI Inspection: distended, obesity and scar Palpation: soft Percussion: tympanic to percussion Auscultation: hypoactive bowel sounds Other: lower wound open NGT while bedside put out a liter Abdomen image: 1. incision 2. open wound Objective Objective Clinical Data: Abnormal lab results 07/08/18 07/08/18 07/08/18 Range/Units 03:15 03:15 03:15 WBC 13.48 H (4.4-10.8) k/cumm RBC 3.52 L (4.00-5.20) m/cumm Hgb 10.2 L (12.0-15.5) g/dL Hct 32.0 L (36.0-46.0) % MCHC 31.9 L (32.0-36.0) g/dL RDW 15.5 H (11.7-14.6) % Absolute Neutrophils 9.17 H (1.2-6.7) k/cumm Absolute Monocytes 1.75 H (0.11-0.7) k/cumm PT 11.5 H (9.3-11.0) sec Potassium 3.3 L (3.5-5.1) mmol/L Chloride 96 L (98-107) mmol/L Creatinine 1.14 H (0.55-1.02) mg/dL Glucose 121 H (70-100) mg/dL Albumin 2.3 L (3.4-5.0) g/dL Vital Signs Temperature 36.7 C 07/08/18 20:06 Temperature Source Tympanic 07/08/18 20:06 Pulse 53 L 07/08/18 20:06 Pulse Rhythm Irregular 07/08/18 15:20 Respiratory Rate 18 07/08/18 20:06 Respiratory Effort Non-Labored 07/08/18 15:20 Respiratory Depth Normal 07/08/18 15:20 Respiratory Pattern Normal 07/08/18 15:20 Blood Pressure 163/63 H 07/08/18 20:06 Pulse Oximetry 93 L 07/08/18 20:06 Oxygen Delivery Method Room Air 07/08/18 20:06 Oxygen Flow Rate 0 07/08/18 20:06 Pain Level 7 07/08/18 20:51 Comment 07/08/18 02:37 Intake & Output 07/07/18 07/08/18 07/08/18 23:59 11:59 23:59 Output Total 500 / 2275 1775 / 2275 Balance -500 / -2275 -1775 / -2275 Weight 83.6 kg Output: Urine 550 / 550 Stool 100 / 100 Emesis 500 / 1625 1125 / 1625 Other: Urine Color Yellow Urine Appearance Clear Clear Stool Occult Blood Positive Stool Size Small Stool Characteristics Soft Emesis Description Bile Bile Gastric Occult Blood Negative Left Nare Negative Laboratory Results WBC 13.48 k/cumm (4.4-10.8) H 07/08/18 03:15 RBC 3.52 m/cumm (4.00-5.20) L 07/08/18 03:15 Hgb 10.2 g/dL (12.0-15.5) L 07/08/18 03:15 Hct 32.0 % (36.0-46.0) L 07/08/18 03:15 MCV 90.9 fL (80-95) 07/08/18 03:15 MCH 29.0 pg (27.0-33.0) 07/08/18 03:15 MCHC 31.9 g/dL (32.0-36.0) L 07/08/18 03:15 RDW 15.5 % (11.7-14.6) H 07/08/18 03:15 Plt Count 395 x1000/uL (130-400) D 07/08/18 03:15 MPV 9.8 fL (8.0-11.0) 07/08/18 03:15 Immature Gran % 0.0 07/08/18 03:15 Neutrophils % 66.0 07/08/18 03:15 Lymphocytes % 13.0 07/08/18 03:15 Monocytes % 13.0 07/08/18 03:15 Eosinophils % 1.0 07/08/18 03:15 Basophils % 0.0 07/08/18 03:15 Absolute Neutrophils 9.17 k/cumm (1.2-6.7) H 07/08/18 03:15 Band Neutrophils 2.0 % 07/08/18 03:15 Absolute Lymphocytes 2.43 k/cumm (1.2-3.4) 07/08/18 03:15 Absolute Monocytes 1.75 k/cumm (0.11-0.7) H 07/08/18 03:15 Absolute Eosinophils 0.13 k/cumm (0.0-0.7) 07/08/18 03:15 Absolute Basophils 0.00 k/cumm (0.0-0.2) 07/08/18 03:15 Differential Comment Manual differential 07/08/18 03:15 Atypical Lymphocytes 5 07/08/18 03:15 RBC Morphology Normal 07/08/18 03:15 PT 11.5 sec (9.3-11.0) H 07/08/18 03:15 INR 1.1 (1.0-3.5) 07/08/18 03:15 APTT 21.7 sec (21.0-31.4) 07/08/18 03:15 Sodium 136 mmol/L (136-145) 07/08/18 03:15 Potassium 3.3 mmol/L (3.5-5.1) L 07/08/18 03:15 Chloride 96 mmol/L (98-107) L 07/08/18 03:15 Carbon Dioxide 29.3 mmol/L (21.0-32.0) 07/08/18 03:15 Anion Gap 10.7 mmol/L (3-11) 07/08/18 03:15 BUN 13 mg/dL (7-18) 07/08/18 03:15 Creatinine 1.14 mg/dL (0.55-1.02) H 07/08/18 03:15 Estimated GFR/1.73 m2 46.34 (mL/min/1.73m2) 07/08/18 03:15 Glucose 121 mg/dL (70-100) H 07/08/18 03:15 Calcium 9.0 mg/dL (8.5-10.1) 07/08/18 03:15 Total Bilirubin 0.4 mg/dL (0.2-1.0) 07/08/18 03:15 AST 15 U/L (15-37) 07/08/18 03:15 ALT 18 U/L (12-78) 07/08/18 03:15 Alkaline Phosphatase 61 U/L (46-116) 07/08/18 03:15 Total Protein 6.6 g/dL (6.4-8.2) 07/08/18 03:15 Albumin 2.3 g/dL (3.4-5.0) L 07/08/18 03:15 Urine Color Yellow (Yellow) 07/08/18 03:35 Urine Clarity Clear 07/08/18 03:35 Urine pH 6.5 (5-8) 07/08/18 03:35 Ur Specific [place] 1.010 (1.005-1.025) 07/08/18 03:35 Urine Protein Negative mg/dL (Negative) 07/08/18 03:35 Urine Ketones Negative mg/dL (Negative) 07/08/18 03:35 Urine Blood Negative (Negative) 07/08/18 03:35 Urine Nitrite Negative (Negative) 07/08/18 03:35 Urine Bilirubin Negative (Negative) 07/08/18 03:35 Urine Urobilinogen 0.2 EU/dL (Up TO 0.2) 07/08/18 03:35 Ur Leukocyte Esterase Negative (Negative) 07/08/18 03:35 Urine Glucose Negative mg/dL (Negative) 07/08/18 03:35 Patient ABO/Rh O Positive 07/08/18 04:35 Antibody Screen Negative 07/08/18 04:35
[2018-07-08] MEDS: ACETAMINOPHEN 1,000 MG/100 ML BTL 400 MG IVPB (23:31)
[2018-07-09] VITALS (7 sets, daily range): BP systolic 93–134; BP diastolic 55–83; PULSE 64–86; RESP 16–20; TEMP 36.2–38.5; O2SAT 93–96
[2018-07-09] MEDS: Ketorolac 15 MG/ML VIAL IVP (00:45)
[2018-07-09] MEDS: Normal Saline Flush 10 ML SYR IVP ×5 (00:46→19:52)
[2018-07-09] MEDS: HYDROmorphone 2 MG/ML VIAL IVP (02:53)
[2018-07-09] MEDS: LORazepam 2 MG/ML VIAL 0.25 MG IVP (02:53)
[2018-07-09] MEDS: DEXTROSE 5%-0.45% SALINE 1,000 ML 80 ML IV ×2 (03:01→12:07)
[2018-07-09] MEDS: ACETAMINOPHEN 1,000 MG/100 ML BTL 400 MG IVPB ×3 (06:42→18:50)
[2018-07-09 06:56] LABS: Abs Immature Grans 0.05 k/cumm (0.0-0.09); HCT 29.9 % (36.0-46.0); HGB 9.2 g/dL (12.0-15.5); Mean Corp. HGB Concentration 30.8 g/dL (32.0-36.0); Mean Corpuscular Hemoglobin 28.7 pg (27.0-33.0); Mean Corpuscular Volume 93.1 fL (80-95); Mean Platelet Volume 9.7 fL (8.0-11.0); Platelet Count 394 x1000/uL (130-400); RBC 3.21 m/cumm (4.00-5.20); RBC Distribution Width 15.2 % (11.7-14.6); White Blood Cell Count 10.97 k/cumm (4.4-10.8)
--- NOTE | 2018-07-09 06:56 | W.PM.PROGNOT ---
Date of Service Date of service: 07/09/18 Time of Service: 06:56 Assessment and Plan (1) Anemia: Current visit: No Status: Chronic Improving Qualifiers: Anemia type: iron deficiency Iron deficiency anemia type: other iron deficiency Vitamin B12 deficiency anemia type: Folate deficiency anemia type: Bone marrow failure anemia type: Hemolytic anemia type: Other causes of anemia: Chronic kidney disease stage: Qualified Code(s): D50.8 - Other iron deficiency anemias (2) Bilious emesis: Current visit: Yes Status: Acute NG in place Post-op ileus? why Will get a CT scan of her abdomen and pelvis Qualifiers: Nausea presence: with nausea Qualified Code(s): R11.14 - Bilious vomiting (3) Wound discharge: Current visit: Yes Status: Acute Looks like old hematoma- No foul smell. Not purulent appearing Daily wound dressings Subjective Interval history since last seen: Riddhi had several bout of nausea and vomiting yesterday evening. NG tube was placed and she had 3 L out. She feels better now. NG out has decreased significantly this am. Still passing flatus. Exam Resp Auscultation: clear to auscultation bilaterally Cardio Rate: regular rate Rhythm: regular rhythm Heart Sounds: no gallops, no murmurs and no rubs GI Inspection: incision (some erythema around the botttom of the incision.) Palpation: soft and tender (mild RLQ) Other: 4 more maame removed at bottom of incision. No purulent discharge. Wound packed with moist 4x4 and covered with ABD. Objective Objective Clinical Data: Vital Signs Temperature 97.5 F L 07/09/18 00:22 Temperature Source Tympanic 07/09/18 00:22 Pulse 77 07/09/18 00:22 Pulse Rhythm Irregular 07/08/18 15:20 Respiratory Rate 18 07/09/18 00:22 Respiratory Effort Non-Labored 07/08/18 15:20 Respiratory Depth Normal 07/08/18 15:20 Respiratory Pattern Normal 07/08/18 15:20 Blood Pressure 134/74 07/09/18 00:22 Pulse Oximetry 94 L 07/09/18 00:22 Oxygen Delivery Method Room Air 07/09/18 00:22 Oxygen Flow Rate 0 07/09/18 00:22 Pain Level 4 07/09/18 02:53 Comment 07/08/18 02:37 Intake & Output 07/08/18 07/08/18 07/09/18 11:59 23:59 11:59 Intake Total 1056 / 1056 494.667 / 494.667 Output Total 500 / 3425 2925 / 3425 100 / 100 Balance -500 / -2369 -1869 / -2369 394.667 / 394.667 Weight 184 lb 4.903 oz Intake: IV 816 / 816 254.667 / 254.667 Oral 240 / 240 240 / 240 Output: Gastric Drainage 850 / 850 Left Nare 850 / 850 Urine 550 / 550 100 / 100 Stool 100 / 100 Emesis 500 / 1925 1425 / 1925 Other: Urine Color Yellow Straw Urine Appearance Clear Clear Clear Urine Odor Normal Comment post void residual Stool Occult Blood Positive Stool Size Small Stool Characteristics Soft Emesis Description Bile Bile Gastric Occult Blood Negative Left Nare Negative Voiding Methods Bedside Commode Laboratory Results WBC 13.48 k/cumm (4.4-10.8) H 07/08/18 03:15 RBC 3.52 m/cumm (4.00-5.20) L 07/08/18 03:15 Hgb 10.2 g/dL (12.0-15.5) L 07/08/18 03:15 Hct 32.0 % (36.0-46.0) L 07/08/18 03:15 MCV 90.9 fL (80-95) 07/08/18 03:15 MCH 29.0 pg (27.0-33.0) 07/08/18 03:15 MCHC 31.9 g/dL (32.0-36.0) L 07/08/18 03:15 RDW 15.5 % (11.7-14.6) H 07/08/18 03:15 Plt Count 395 x1000/uL (130-400) D 07/08/18 03:15 MPV 9.8 fL (8.0-11.0) 07/08/18 03:15 Immature Gran % 0.0 07/08/18 03:15 Neutrophils % 66.0 07/08/18 03:15 Lymphocytes % 13.0 07/08/18 03:15 Monocytes % 13.0 07/08/18 03:15 Eosinophils % 1.0 07/08/18 03:15 Basophils % 0.0 07/08/18 03:15 Absolute Neutrophils 9.17 k/cumm (1.2-6.7) H 07/08/18 03:15 Band Neutrophils 2.0 % 07/08/18 03:15 Absolute Lymphocytes 2.43 k/cumm (1.2-3.4) 07/08/18 03:15 Absolute Monocytes 1.75 k/cumm (0.11-0.7) H 07/08/18 03:15 Absolute Eosinophils 0.13 k/cumm (0.0-0.7) 07/08/18 03:15 Absolute Basophils 0.00 k/cumm (0.0-0.2) 07/08/18 03:15 Differential Comment Manual differential 07/08/18 03:15 Atypical Lymphocytes 5 07/08/18 03:15 RBC Morphology Normal 07/08/18 03:15 PT 11.5 sec (9.3-11.0) H 07/08/18 03:15 INR 1.1 (1.0-3.5) 07/08/18 03:15 APTT 21.7 sec (21.0-31.4) 07/08/18 03:15 Sodium 136 mmol/L (136-145) 07/08/18 03:15 Potassium 3.3 mmol/L (3.5-5.1) L 07/08/18 03:15 Chloride 96 mmol/L (98-107) L 07/08/18 03:15 Carbon Dioxide 29.3 mmol/L (21.0-32.0) 07/08/18 03:15 Anion Gap 10.7 mmol/L (3-11) 07/08/18 03:15 BUN 13 mg/dL (7-18) 07/08/18 03:15 Creatinine 1.14 mg/dL (0.55-1.02) H 07/08/18 03:15 Estimated GFR/1.73 m2 46.34 (mL/min/1.73m2) 07/08/18 03:15 Glucose 121 mg/dL (70-100) H 07/08/18 03:15 Calcium 9.0 mg/dL (8.5-10.1) 07/08/18 03:15 Total Bilirubin 0.4 mg/dL (0.2-1.0) 07/08/18 03:15 AST 15 U/L (15-37) 07/08/18 03:15 ALT 18 U/L (12-78) 07/08/18 03:15 Alkaline Phosphatase 61 U/L (46-116) 07/08/18 03:15 Total Protein 6.6 g/dL (6.4-8.2) 07/08/18 03:15 Albumin 2.3 g/dL (3.4-5.0) L 07/08/18 03:15 Urine Color Yellow (Yellow) 07/08/18 03:35 Urine Clarity Clear 07/08/18 03:35 Urine pH 6.5 (5-8) 07/08/18 03:35 Ur Specific [place] 1.010 (1.005-1.025) 07/08/18 03:35 Urine Protein Negative mg/dL (Negative) 07/08/18 03:35 Urine Ketones Negative mg/dL (Negative) 07/08/18 03:35 Urine Blood Negative (Negative) 07/08/18 03:35 Urine Nitrite Negative (Negative) 07/08/18 03:35 Urine Bilirubin Negative (Negative) 07/08/18 03:35 Urine Urobilinogen 0.2 EU/dL (Up TO 0.2) 07/08/18 03:35 Ur Leukocyte Esterase Negative (Negative) 07/08/18 03:35 Urine Glucose Negative mg/dL (Negative) 07/08/18 03:35 Patient ABO/Rh O Positive 07/08/18 04:35 Antibody Screen Negative 07/08/18 04:35
[2018-07-09 07:11] LABS: ALT 15 U/L (12-78); AST 14 U/L (15-37); Albumin 2.2 g/dL (3.4-5.0); Alkaline Phosphatase 57 U/L (46-116); Anion Gap 5.5 mmol/L (3-11); BUN 15 mg/dL (7-18); Bilirubin, Total 0.3 mg/dL (0.2-1.0); CO2 36.5 mmol/L (21.0-32.0); CREATININE 1.18 mg/dL (0.55-1.02); Calcium 8.8 mg/dL (8.5-10.1); Chloride 97 mmol/L (98-107); Estimated GFR 44.53 (mL/min/1.73m2); Glucose 124 mg/dL (70-100); Sodium 139 mmol/L (136-145); Total Protein 6.2 g/dL (6.4-8.2)
[2018-07-09 07:25] LABS: Absolute Lymphocyte Count 1.86 k/cumm (1.2-3.4); Absolute Monocyte Count 1.32 k/cumm (0.11-0.7); Absolute Neutrophil Count 7.79 k/cumm (1.2-6.7); Atypical Lymphocytes % 5
[2018-07-09 07:25] LABS: Potassium 2.6 mmol/L (3.5-5.1)
[2018-07-09 07:26] LABS: Diff Comment Manual Differential; Hypochromasia 1+; Polychromasia Present
[2018-07-09] MEDS: Pantoprazole 40 MG VIAL IVP (08:44)
[2018-07-09] MEDS: Metoclopramide 10 MG/2 ML VIAL IVP ×3 (09:51→21:36)
[2018-07-09] MEDS: Enoxaparin 40 MG/0.4 ML SYR SC (09:52)
[2018-07-09] MEDS: POTASSIUM CHLORIDE 10 MEQ/100 ML BAG 100 MEQ IVPB ×4 (09:53→18:00)
--- NOTE | 2018-07-09 11:59 | PHARADMIT ---
Addendum entered by Svetlana Lugo 07/14/18 16:33: Pharmacy Note Subjective Eating well, wound vac on abdominal Objective VS ok, Na++ 138, K+ 3.8, Phos 1.5, H/H 7.9/25.6, WBC up 13.07 Assessment Cipro continues day#3-4 IV steroid tapered down to 10mg Q6h Plan TPN rate decreased to 40ml/hr (clear bag) to run until it's complete...sometime around 1am 07/15/18 Likely discharge soon with services Original Note: Addendum entered by René Sahu III 07/13/18 13:09: 10 mMoles per bag Original Note: Addendum entered by René Sahu III 07/13/18 12:37: Pharmacy Note Subjective added 1mM of Sod.Phos to each bag of TPN. Patient is taking nutrition orally now. Objective VS-OK Na-137 K4.4 Phos-1.5 H&H-7.8/25.5 Having BMs Assessment Added Sodium Phosphate to each TPN bag. Plan Plan is to taper TPN to half rate tomorrow, then discontinue. Original Note: Addendum entered by Aide Bowman 07/12/18 11:25: Pharmacy Note Subjective pt has had trouble sleeping per morning report Objective VS-okay Na-133(up) phos-1.5 WBC-10.96(down) h/h-8.2/26.9(down) plt-434(down) ALT-261(up) Assessment TPN continues until PO intake improves; diet advanced to clear liquids cipro and flagyl continue (day 2), wound culture grew scant klebsiella sensitive to cipro, UTI? (urine culture no growth @48 hours) stress dose taper of steroids started- suspects chronic adrenal insufficiency may be cause of ileus/n/v zolpidem CR 6.25 mg ordered QHS Plan continue to watch VS, labs and for med changes Original Note: Addendum entered by Génesis Florian 07/10/18 10:05: Pharmacy Note Subjective pt with postoperative wound hematoma , continued abx and dressing changes Objective h/h 9.0/29.4, K 2.9, Mag 1.3, vs ok, Assessment home meds started: levothyroine,. enoxaparin started yesterday, low Mag and K being replaced, Iv acetaminophen and metopclopramide switched to PRN, Acetaminophen dose adjusted for age Plan follow labs for H/H and Lytes Original Note: Addendum entered by Génesis Florian 07/10/18 10:01: Pharmacy Note Subjective Objective Assessment home meds started: levothyroine,. enoxaparin statrted yesterday Plan Original Note: Admission Pharmacy Clinical Review GI BLEED ( ruled out) Code Status DNR/DNI Current Weight Wgt -83.6 kg Renally Cleared and Narrow Therapeutic Index Meds CrCl~ 32 mL/min Meds-OK QTc Value / Action Taken QTc-466 (Protonix, Reglan, Zofran, BP Control, Fever BP-93/55 Tmax- 36.7C Electrolytes reviewed Na- 139 k+2.6 DVT Prophylaxis Lovenox (no GI Bleed) Opiate Usage / Scheduled Bowel Regimen Ordered Yes No Plt/SCr for Heparin / Enoxaparin Plts-394 SCr-1.18 INR for Warfarin inr-1.1 H/H stable, WBC/Bands H&H- 9.2/29.9 WBC-10.97 Antibiotic appropriateness NONE Cultures and Sensitivities WOUND CULTURE -NEGATIVE Surgical ABX d/c within 24 hr DM control / Insulin Dosing BG- 124 Heart Failure (Check EF%) (NEO's, B-Block, Diuretics) NONE IV to PO Switch No Home Meds Reviewed Yes Home Meds Not Ordered Finacea, Vit-C, Lotrimin, Vit-D, Fergon, Wellbutrin,Lasix,Ibuprofen, Isoniazid, Levothroid, MTX, Medrol, Mirtazapine, Nystatin, Zolpidem Comments
--- NOTE | 2018-07-09 12:00 | DI.CT_ITS ---
SYMPTOM/DIAGNOSIS: POST OP ILEUS, UNKNOWN SOURCE CT ABDOMEN AND PELVIS: The study was carried out according to the usual protocol without contrast enhancement. No acute abnormality involving the lung bases is demonstrated. There are a number of right lung cysts. No infiltrate or mass or pleural effusion is seen. The heart is not enlarged. Coronary artery and valvular calcification is demonstrated. A nasogastric tube is demonstrated and appears to be in good position. The liver appears intact. The gallbladder is intact. There is no evidence of gallstones or ductal dilatation. The pancreas is atrophic. The spleen and kidneys are well demonstrated. There are no acute abnormalities seen. There is a small posterior right renal cyst. A region of questionable diminished absorption is noted involving the lower pole of the left kidney and I could not entirely exclude a small solid mass. The adrenals are normal. There is a small quantity of fluid in both the right and left gutter. The patient has had recent surgery and a surgical defect is noted over the left paramedian position in the mid abdomen and superior pelvis. There are small gas bubbles at the incision line in the subcutaneous fat. There is no definite intra-abdominal free air. There is no evidence of bowel obstruction. There is nothing to suggest an acute appendix There is bladder wall thickening which could represent cystitis, however, incomplete distension is noted. There are numerous scattered mesenteric lymph nodes. No grossly enlarged nodes are identified on this noncontrast enhanced study. There is no evidence of an aortic aneurysm with note made of diffuse atherosclerotic changes throughout the aorta and abdominal vessels. There are numerous metallic clips or maame adjacent to the surgical site in the anterior abdominal wall. SUMMARY: No evidence of an intra-abdominal abscess. Inflammatory changes are noted about the surgical scar. There is no evidence of intra-abdominal free air. A small quantity of free fluid is noted in the right and left pericolic gutter.
[2018-07-09] MEDS: PIPERACILLIN/TAZO 3.375 GM in Normal Saline 50 ML IVPB ×2 (12:35→22:20)
--- NOTE | 2018-07-09 13:46 | PGE_ITS ---
Date of Service Date of service: 07/09/18 Time of Service: 13:40 Assessment and Plan (1) Nausea & vomiting: Current visit: Yes Status: Acute Bilious vomiting yesterday. Had 3 L of bilious output with Ng tube. Out put has decreased significantly today. CT scan shows no dilated bowel, no abscess or free air Unsure of why she had the N/V yesterday P\\ WIll clamp NG and check residuals. If residuals are low throughout the night then will remove the NG tube and start with ice chips and some clears (2) Postoperative wound hematoma: Current visit: Yes Status: Acute Bottom of wound opened and hematoma drained. CT scan doesn't show inflammation or fluid collection under the rest of the maame. P\\ Continue with dressing changes daily Will start on some antibiotics because her WBC count is slightly elevated. No fevers or chills. (3) Hypokalemia: Current visit: No Status: Acute P\\ K replaced today. recheck at around 3 pm today Recheck labs in the am Subjective Interval history since last seen: Doing OK. Complaining mostly of her NG tube. Has not had much for pain medication. Continues to have small soft and formed BM's. Also passing flatus still. NG output has decreased significantly. Exam Resp Auscultation: clear to auscultation bilaterally Cardio Rate: regular rate Rhythm: regular rhythm Heart Sounds: no gallops, no murmurs and no rubs GI Inspection: incision (c/d/i / most distal end is openwith minimal serosanguinous discharge.) Palpation: soft and tender (mild RLQ. No guarding or rebound) Auscultation: normal bowel sounds Objective Objective Clinical Data: Abnormal lab results 07/09/18 07/09/18 Range/Units 06:13 06:35 WBC 10.97 H (4.4-10.8) k/cumm RBC 3.21 L (4.00-5.20) m/cumm Hgb 9.2 L (12.0-15.5) g/dL Hct 29.9 L (36.0-46.0) % MCHC 30.8 L (32.0-36.0) g/dL RDW 15.2 H (11.7-14.6) % Absolute Neutrophils 7.79 H (1.2-6.7) k/cumm Absolute Monocytes 1.32 H (0.11-0.7) k/cumm Potassium 2.6 L* (3.5-5.1) mmol/L Chloride 97 L (98-107) mmol/L Carbon Dioxide 36.5 H (21.0-32.0) mmol/L Creatinine 1.18 H (0.55-1.02) mg/dL Glucose 124 H (70-100) mg/dL AST 14 L (15-37) U/L Total Protein 6.2 L (6.4-8.2) g/dL Albumin 2.2 L (3.4-5.0) g/dL Vital Signs Temperature 97.2 F L 07/09/18 07:40 Temperature Source Tympanic 07/09/18 07:40 Pulse 65 07/09/18 07:40 Pulse Rhythm Regular 07/09/18 06:30 Respiratory Rate 16 07/09/18 07:40 Respiratory Effort 07/09/18 06:30 Respiratory Depth Normal 07/09/18 06:30 Respiratory Pattern Normal 07/09/18 06:30 Blood Pressure 93/55 L 07/09/18 07:40 Pulse Oximetry 93 L 07/09/18 07:40 Oxygen Delivery Method Room Air 07/09/18 07:40 Oxygen Flow Rate 0 07/09/18 07:40 Pain Level 0 07/09/18 10:51 Comment 07/08/18 02:37 Intake & Output 07/08/18 07/09/18 07/09/18 23:59 11:59 23:59 Intake Total 1056 / 1056 694.667 / 1522.667 828 / 1522.667 Output Total 2925 / 3425 875 / 875 Balance -1869 / -2369 -180.333 / 647.667 828 / 647.667 Intake: IV 816 / 816 454.667 / 1282.667 828 / 1282.667 Oral 240 / 240 240 / 240 Output: Gastric Drainage 850 / 850 350 / 350 Left Nare 850 / 850 350 / 350 Urine 550 / 550 525 / 525 Stool 100 / 100 Emesis 1425 / 1925 Other: Urine Color Yellow Yellow Urine Appearance Clear Clear Urine Odor Normal Comment Ranged from 170 (lowest) - 273 (highest) ml Stool Occult Blood Positive Stool Size Small Small Stool Characteristics Soft Soft Liquid Emesis Description Bile Gastric Occult Blood Negative Left Nare Negative Voiding Methods Toilet Laboratory Results WBC 10.97 k/cumm (4.4-10.8) H 07/09/18 06:35 RBC 3.21 m/cumm (4.00-5.20) L 07/09/18 06:35 Hgb 9.2 g/dL (12.0-15.5) L 07/09/18 06:35 Hct 29.9 % (36.0-46.0) L 07/09/18 06:35 MCV 93.1 fL (80-95) 07/09/18 06:35 MCH 28.7 pg (27.0-33.0) 07/09/18 06:35 MCHC 30.8 g/dL (32.0-36.0) L 07/09/18 06:35 RDW 15.2 % (11.7-14.6) H 07/09/18 06:35 Plt Count 394 x1000/uL (130-400) 07/09/18 06:35 MPV 9.7 fL (8.0-11.0) 07/09/18 06:35 Immature Gran % 0.0 07/09/18 06:35 Neutrophils % 70.0 07/09/18 06:35 Lymphocytes % 12.0 07/09/18 06:35 Monocytes % 12.0 07/09/18 06:35 Eosinophils % 0.0 07/09/18 06:35 Basophils % 0.0 07/09/18 06:35 Absolute Neutrophils 7.79 k/cumm (1.2-6.7) H 07/09/18 06:35 Band Neutrophils 1.0 % 07/09/18 06:35 Absolute Lymphocytes 1.86 k/cumm (1.2-3.4) 07/09/18 06:35 Absolute Monocytes 1.32 k/cumm (0.11-0.7) H 07/09/18 06:35 Absolute Eosinophils 0.00 k/cumm (0.0-0.7) 07/09/18 06:35 Absolute Basophils 0.00 k/cumm (0.0-0.2) 07/09/18 06:35 Differential Comment Manual differential 07/09/18 06:35 Atypical Lymphocytes 5 07/09/18 06:35 RBC Morphology See below 07/09/18 06:35 Polychromasia Present 07/09/18 06:35 Hypochromasia 1+ 07/09/18 06:35 PT 11.5 sec (9.3-11.0) H 07/08/18 03:15 INR 1.1 (1.0-3.5) 07/08/18 03:15 APTT 21.7 sec (21.0-31.4) 07/08/18 03:15 Sodium 139 mmol/L (136-145) 07/09/18 06:13 Potassium 2.6 mmol/L (3.5-5.1) L* 07/09/18 06:13 Chloride 97 mmol/L (98-107) L 07/09/18 06:13 Carbon Dioxide 36.5 mmol/L (21.0-32.0) H 07/09/18 06:13 Anion Gap 5.5 mmol/L (3-11) 07/09/18 06:13 BUN 15 mg/dL (7-18) 07/09/18 06:13 Creatinine 1.18 mg/dL (0.55-1.02) H 07/09/18 06:13 Estimated GFR/1.73 m2 44.53 (mL/min/1.73m2) 07/09/18 06:13 Glucose 124 mg/dL (70-100) H 07/09/18 06:13 Calcium 8.8 mg/dL (8.5-10.1) 07/09/18 06:13 Total Bilirubin 0.3 mg/dL (0.2-1.0) 07/09/18 06:13 AST 14 U/L (15-37) L 07/09/18 06:13 ALT 15 U/L (12-78) 07/09/18 06:13 Alkaline Phosphatase 57 U/L (46-116) 07/09/18 06:13 Total Protein 6.2 g/dL (6.4-8.2) L 07/09/18 06:13 Albumin 2.2 g/dL (3.4-5.0) L 07/09/18 06:13 Urine Color Yellow (Yellow) 07/08/18 03:35 Urine Clarity Clear 07/08/18 03:35 Urine pH 6.5 (5-8) 07/08/18 03:35 Ur Specific [place] 1.010 (1.005-1.025) 07/08/18 03:35 Urine Protein Negative mg/dL (Negative) 07/08/18 03:35 Urine Ketones Negative mg/dL (Negative) 07/08/18 03:35 Urine Blood Negative (Negative) 07/08/18 03:35 Urine Nitrite Negative (Negative) 07/08/18 03:35 Urine Bilirubin Negative (Negative) 07/08/18 03:35 Urine Urobilinogen 0.2 EU/dL (Up TO 0.2) 07/08/18 03:35 Ur Leukocyte Esterase Negative (Negative) 07/08/18 03:35 Urine Glucose Negative mg/dL (Negative) 07/08/18 03:35 Patient ABO/Rh O Positive 07/08/18 04:35 Antibody Screen Negative 07/08/18 04:35
--- NOTE | 2018-07-09 15:10 | CHAPLAIN ---
Amanda is discouraged to be readmitted after spending several days here, but said she knew she needed to come in. Her will be here later to visit. She was sitting on the edge of her bed when I visited, and said she was tired after not getting much sleep last night. Amanda is [employer], and so will likely see Fr. Pino or Fr. Ward during their scheduled visits today.
--- NOTE | 2018-07-09 16:16 | PDOC.CMPRO ---
Care Management Progress Note S/O: Pat was visiting with Yissel (Laboratory Immunologist) when CM attempted to meet with her. Her visited her this afternoon. CM will continue to follow. No change to overall plan. A: 77 year old female admitted to [facility] 07/08/18 for GI Bleed P: Pat will discharge when medically ready per MD. Anticipate patient will discharge with no services and follow up with surgical services. CM will continue to offer support to patient and care team regarding discharge planning and disposition.
--- NOTE | 2018-07-09 16:21 | CMPROGNOTE_ITS ---
Care Management Progress Note S/O: Pat was visiting with Yissel (Ichthyology Teacher) when CM attempted to meet with her. Her visited her this afternoon. CM will continue to follow. No change to overall plan. A: 77 year old female admitted to [facility] 07/08/18 for GI Bleed P: Pat will discharge when medically ready per MD. Anticipate patient will discharge with no services and follow up with surgical services. CM will continue to offer support to patient and care team regarding discharge planning and disposition.
[2018-07-09 16:45] LABS: Potassium 3.2 mmol/L (3.5-5.1)
--- NOTE | 2018-07-09 16:49 | W.PM.PROGNOT ---
Date of Service Date of service: 07/09/18 Time of Service: 16:49 Assessment and Plan (1) Nausea & vomiting: Current visit: Yes Status: Acute NG tbe with ) residual after 4 hours. Patient complaining of pain Will D/C NG tube May have a few ice chips over night. Qualifiers: Vomiting type: bilious vomiting Qualified Code(s): R11.14 - Bilious vomiting (2) Postoperative wound hematoma: Current visit: Yes Status: Acute Dressing c/d/i Continue dressing changes (3) Hypokalemia: Current visit: No Status: Acute Change to D5 1/2NS with 20 KCL @100 cc/hr Subjective Interval history since last seen: Patient complaining of a sore throat. I just feel under the weather No fevers or chills No increased abdominal pain Continuous to pass flatus and have BM's Exam Resp Effort & Inspection: normal respiratory effort Auscultation: clear to auscultation bilaterally Cardio Rate: regular rate Rhythm: regular rhythm GI Palpation: soft, no hepatosplenomegaly and tender (mild lower abdomen. NO guarding or rebund) Auscultation: normal bowel sounds and normoactive bowel sounds Objective Objective Clinical Data: Abnormal lab results 07/09/18 07/09/18 Range/Units 06:13 06:35 WBC 10.97 H (4.4-10.8) k/cumm RBC 3.21 L (4.00-5.20) m/cumm Hgb 9.2 L (12.0-15.5) g/dL Hct 29.9 L (36.0-46.0) % MCHC 30.8 L (32.0-36.0) g/dL RDW 15.2 H (11.7-14.6) % Absolute Neutrophils 7.79 H (1.2-6.7) k/cumm Absolute Monocytes 1.32 H (0.11-0.7) k/cumm Potassium 2.6 L* (3.5-5.1) mmol/L Chloride 97 L (98-107) mmol/L Carbon Dioxide 36.5 H (21.0-32.0) mmol/L Creatinine 1.18 H (0.55-1.02) mg/dL Glucose 124 H (70-100) mg/dL AST 14 L (15-37) U/L Total Protein 6.2 L (6.4-8.2) g/dL Albumin 2.2 L (3.4-5.0) g/dL Vital Signs Temperature 98.1 F 07/09/18 15:40 Temperature Source Tympanic 07/09/18 15:40 Pulse 64 07/09/18 15:40 Pulse Rhythm Irregular 07/09/18 16:22 Respiratory Rate 18 07/09/18 15:40 Respiratory Effort Non-Labored 07/09/18 16:22 Respiratory Depth Normal 07/09/18 16:22 Respiratory Pattern Normal 07/09/18 16:22 Blood Pressure 127/57 L 07/09/18 15:40 Pulse Oximetry 93 L 07/09/18 15:40 Oxygen Delivery Method Room Air 07/09/18 15:40 Oxygen Flow Rate 0 07/09/18 15:40 Pain Level 0 07/09/18 10:51 Comment 07/08/18 02:37 Intake & Output 07/08/18 07/09/18 07/09/18 23:59 11:59 23:59 Intake Total 1056 / 1056 694.667 / 3132.225 1038.541 / 1860.208 Output Total 2925 / 3425 975 / 1100 125 / 1100 Balance -1869 / -2369 -280.333 / 385.611 9318.541 / 760.208 Intake: IV 816 / 816 454.667 / 4441.197 4991.541 / 1620.208 Oral 240 / 240 240 / 240 Output: Gastric Drainage 850 / 850 350 / 350 Left Nare 850 / 850 350 / 350 Urine 550 / 550 625 / 750 125 / 750 Stool 100 / 100 Emesis 1425 / 1925 Other: Urine Color Yellow Yellow Yellow Urine Appearance Clear Clear Clear Urine Odor Normal Normal Comment MIXED W STOOL MIXED W STOOL Stool Occult Blood Positive Stool Size Small Small Moderate Stool Characteristics Soft Soft Soft Liquid Formed Brown Emesis Description Bile Gastric Occult Blood Negative Left Nare Negative Voiding Methods Bedside Commode Bedside Commode Laboratory Results WBC 10.97 k/cumm (4.4-10.8) H 07/09/18 06:35 RBC 3.21 m/cumm (4.00-5.20) L 07/09/18 06:35 Hgb 9.2 g/dL (12.0-15.5) L 07/09/18 06:35 Hct 29.9 % (36.0-46.0) L 07/09/18 06:35 MCV 93.1 fL (80-95) 07/09/18 06:35 MCH 28.7 pg (27.0-33.0) 07/09/18 06:35 MCHC 30.8 g/dL (32.0-36.0) L 07/09/18 06:35 RDW 15.2 % (11.7-14.6) H 07/09/18 06:35 Plt Count 394 x1000/uL (130-400) 07/09/18 06:35 MPV 9.7 fL (8.0-11.0) 07/09/18 06:35 Immature Gran % 0.0 07/09/18 06:35 Neutrophils % 70.0 07/09/18 06:35 Lymphocytes % 12.0 07/09/18 06:35 Monocytes % 12.0 07/09/18 06:35 Eosinophils % 0.0 07/09/18 06:35 Basophils % 0.0 07/09/18 06:35 Absolute Neutrophils 7.79 k/cumm (1.2-6.7) H 07/09/18 06:35 Band Neutrophils 1.0 % 07/09/18 06:35 Absolute Lymphocytes 1.86 k/cumm (1.2-3.4) 07/09/18 06:35 Absolute Monocytes 1.32 k/cumm (0.11-0.7) H 07/09/18 06:35 Absolute Eosinophils 0.00 k/cumm (0.0-0.7) 07/09/18 06:35 Absolute Basophils 0.00 k/cumm (0.0-0.2) 07/09/18 06:35 Differential Comment Manual differential 07/09/18 06:35 Atypical Lymphocytes 5 07/09/18 06:35 RBC Morphology See below 07/09/18 06:35 Polychromasia Present 07/09/18 06:35 Hypochromasia 1+ 07/09/18 06:35 PT 11.5 sec (9.3-11.0) H 07/08/18 03:15 INR 1.1 (1.0-3.5) 07/08/18 03:15 APTT 21.7 sec (21.0-31.4) 07/08/18 03:15 Sodium 139 mmol/L (136-145) 07/09/18 06:13 Potassium 2.6 mmol/L (3.5-5.1) L* 07/09/18 06:13 Chloride 97 mmol/L (98-107) L 07/09/18 06:13 Carbon Dioxide 36.5 mmol/L (21.0-32.0) H 07/09/18 06:13 Anion Gap 5.5 mmol/L (3-11) 07/09/18 06:13 BUN 15 mg/dL (7-18) 07/09/18 06:13 Creatinine 1.18 mg/dL (0.55-1.02) H 07/09/18 06:13 Estimated GFR/1.73 m2 44.53 (mL/min/1.73m2) 07/09/18 06:13 Glucose 124 mg/dL (70-100) H 07/09/18 06:13 Calcium 8.8 mg/dL (8.5-10.1) 07/09/18 06:13 Total Bilirubin 0.3 mg/dL (0.2-1.0) 07/09/18 06:13 AST 14 U/L (15-37) L 07/09/18 06:13 ALT 15 U/L (12-78) 07/09/18 06:13 Alkaline Phosphatase 57 U/L (46-116) 07/09/18 06:13 Total Protein 6.2 g/dL (6.4-8.2) L 07/09/18 06:13 Albumin 2.2 g/dL (3.4-5.0) L 07/09/18 06:13 Urine Color Yellow (Yellow) 07/08/18 03:35 Urine Clarity Clear 07/08/18 03:35 Urine pH 6.5 (5-8) 07/08/18 03:35 Ur Specific [place] 1.010 (1.005-1.025) 07/08/18 03:35 Urine Protein Negative mg/dL (Negative) 07/08/18 03:35 Urine Ketones Negative mg/dL (Negative) 07/08/18 03:35 Urine Blood Negative (Negative) 07/08/18 03:35 Urine Nitrite Negative (Negative) 07/08/18 03:35 Urine Bilirubin Negative (Negative) 07/08/18 03:35 Urine Urobilinogen 0.2 EU/dL (Up TO 0.2) 07/08/18 03:35 Ur Leukocyte Esterase Negative (Negative) 07/08/18 03:35 Urine Glucose Negative mg/dL (Negative) 07/08/18 03:35 Patient ABO/Rh O Positive 07/08/18 04:35 Antibody Screen Negative 07/08/18 04:35
[2018-07-09] MEDS: POTASSIUM CHLORIDE/D5-0.45NACL 1,000 ML 100 MEQ IV (20:05)
[2018-07-10] VITALS (7 sets, daily range): BP systolic 101–153; BP diastolic 52–78; PULSE 67–85; RESP 16–19; TEMP 36.4–37.3; O2SAT 93–96
[2018-07-10] MEDS: LORazepam 2 MG/ML VIAL 0.25 MG IVP (01:10)
[2018-07-10] MEDS: Normal Saline Flush 10 ML SYR IVP ×7 (01:10→20:54)
[2018-07-10] MEDS: ACETAMINOPHEN 1,000 MG/100 ML BTL 400 MG IVPB ×3 (01:11→20:54)
[2018-07-10] MEDS: Metoclopramide 10 MG/2 ML VIAL IVP ×4 (02:47→21:18)
[2018-07-10] MEDS: Pantoprazole 40 MG VIAL IVP (06:49)
[2018-07-10] MEDS: POTASSIUM CHLORIDE/D5-0.45NACL 1,000 ML 100 MEQ IV ×2 (06:57→18:01)
[2018-07-10] MEDS: PIPERACILLIN/TAZO 3.375 GM in Normal Saline 50 ML IVPB (07:12)
[2018-07-10 07:25] LABS: Abs Immature Grans 0.02 k/cumm (0.0-0.09); Absolute Basophil Count 0.02 k/cumm (0.0-0.2); Absolute Eosinophil Count 0.09 k/cumm (0.0-0.7); Absolute Lymphocyte Count 1.15 k/cumm (1.2-3.4); Absolute Monocyte Count 1.44 k/cumm (0.11-0.7); Absolute Neutrophil Count 7.16 k/cumm (1.2-6.7); Basophils % 0.2; Eosinophils % 0.9; HCT 29.4 % (36.0-46.0); Immature Grans % 0.2; Lymphocytes % 11.6; Mean Corp. HGB Concentration 30.6 g/dL (32.0-36.0); Mean Corpuscular Hemoglobin 28.3 pg (27.0-33.0); Mean Corpuscular Volume 92.5 fL (80-95); Monocytes % 14.6; Neutrophils % 72.5; Platelet Count 396 x1000/uL (130-400); RBC 3.18 m/cumm (4.00-5.20); RBC Distribution Width 15.3 % (11.7-14.6); White Blood Cell Count 9.88 k/cumm (4.4-10.8)
[2018-07-10 07:33] LABS: Anion Gap 6.2 mmol/L (3-11); BUN 12 mg/dL (7-18); CO2 31.8 mmol/L (21.0-32.0); CREATININE 1.09 mg/dL (0.55-1.02); Calcium 7.8 mg/dL (8.5-10.1); Chloride 98 mmol/L (98-107); Glucose 107 mg/dL (70-100); Magnesium 1.3 mg/dL (1.8-2.4); Sodium 136 mmol/L (136-145)
[2018-07-10 07:41] LABS: Potassium 2.9 mmol/L (3.5-5.1)
[2018-07-10] MEDS: methylPREDNISolone 4 MG TAB PO (09:32)
[2018-07-10] MEDS: Enoxaparin 40 MG/0.4 ML SYR SC (09:32)
[2018-07-10] MEDS: Levothyroxine 100 MCG TAB PO (09:32)
--- NOTE | 2018-07-10 09:34 | PDOC.CMPRO ---
- If Service Date Differs Date of service: 07/10/18 Time of Service: 09:34 Care Management Progress Note CM met with patient at the bedside there is no change in status today. She continues to receive IV antibiotics. A: 77 year old female admitted to [facility] 07/08/18 for GI Bleed P: Pat will discharge when medically ready per MD. Anticipate patient will discharge with no services and follow up with surgical services. CM will continue to offer support to patient and care team regarding discharge planning and disposition.
--- NOTE | 2018-07-10 09:50 | PGE_ITS ---
Date of Service Date of service: 07/10/18 Time of Service: 09:37 Assessment and Plan (1) Postoperative wound hematoma: Current visit: Yes Status: Acute Wound looks c/d/i Culture with few gram negative RODS P\\ Continue dressing changes and antibiotics (2) Hypokalemia: Current visit: No Status: Acute Replace K today again and re-check levels tonight and in am (3) Hypomagnesemia: Current visit: No Status: Acute Replace with 4 gm of Magnesium (4) Discharge planning issues: Current visit: No Status: Acute A\\ Patient still overall not feeling well and not herself Flue swab was negative urine on admission was normal P\\ I have spoken to Dr. Mclaughlin regarding patient and she will consult I appreciate her assistance as I am not sure what is going on Subjective Interval history since last seen: Amanda is doing OK today. She denies abdominal pain. She is hungry. I just cant find a comfortable position. When I ask her if she can tell me why she is uncomfortable she doesn't really know. She denies abdominal pain, nausea , chest pain or shortness of breath. She denies anxiety. I asked her if she felt restless and she states yes. She cntinues to pass gas and have BM's. Her BM's are ow more liquid since I started her on Reglan. Exam Const General: cooperative and no acute distress Orientation: alert and oriented x3 Other: Doesn't seem herself. NOt her spunky and joking self. Resp Effort & Inspection: normal respiratory effort Auscultation: clear to auscultation bilaterally Cardio Rate: regular rate Rhythm: regular rhythm Heart Sounds: no gallops, murmur systolic IV/ and no rubs GI Inspection: incision (c/d/i top 2/3 of the incision. Bottom dressing is intact. ) Palpation: soft, no hepatosplenomegaly and nontender Auscultation: normal bowel sounds Abdomen image: 1. midline incision 2. open wound-packed with 4x4 3. 4. mild erythema-much improved 5. Objective Objective Clinical Data: Abnormal lab results 07/09/18 07/10/18 07/10/18 Range/Units 15:45 06:36 06:36 RBC 3.18 L (4.00-5.20) m/cumm Hgb 9.0 L (12.0-15.5) g/dL Hct 29.4 L (36.0-46.0) % MCHC 30.6 L (32.0-36.0) g/dL RDW 15.3 H (11.7-14.6) % Absolute Neutrophils 7.16 H (1.2-6.7) k/cumm Absolute Lymphocytes 1.15 L (1.2-3.4) k/cumm Absolute Monocytes 1.44 H (0.11-0.7) k/cumm Potassium 3.2 L 2.9 L* (3.5-5.1) mmol/L Creatinine 1.09 H (0.55-1.02) mg/dL Glucose 107 H (70-100) mg/dL Calcium 7.8 L (8.5-10.1) mg/dL Magnesium 1.3 L (1.8-2.4) mg/dL Vital Signs Temperature 99.1 F 07/10/18 07:20 Temperature Source Tympanic 07/10/18 07:20 Pulse 74 07/10/18 07:20 Pulse Rhythm Regular 07/10/18 00:00 Respiratory Rate 18 07/10/18 07:20 Respiratory Effort Non-Labored 07/10/18 00:00 Respiratory Depth Normal 07/10/18 00:00 Respiratory Pattern Normal 07/10/18 00:00 Blood Pressure 120/64 07/10/18 07:20 Pulse Oximetry 93 L 07/10/18 07:20 Oxygen Delivery Method Room Air 07/10/18 07:20 Oxygen Flow Rate 0 07/10/18 07:20 Pain Level 0 07/09/18 10:51 Comment 07/08/18 02:37 Intake & Output 07/09/18 07/09/18 07/10/18 11:59 23:59 11:59 Intake Total 694.667 / 2302.000 1607.333 / 2302.000 1310 / 1310 Output Total 975 / 1100 125 / 1100 Balance -280.333 / 6384.964 2045.333 / 3425.401 0095 / 1310 Intake: IV 454.667 / 2062.000 1607.333 / 2062.000 1310 / 1310 Oral 240 / 240 Output: Gastric Drainage 350 / 350 Left Nare 350 / 350 Urine 625 / 750 125 / 750 Other: Urine Color Yellow Yellow Yellow Urine Appearance Clear Clear Clear Urine Odor Normal Normal Normal Comment MIXED W STOOL MIXED W STOOL pt voided in commode, urine mixed with stool. Stool Size Small Small Small Stool Characteristics Soft Soft Soft Liquid Formed Liquid Brown Green Voiding Methods Bedside Commode Bedside Commode Bedside Commode Laboratory Results WBC 9.88 k/cumm (4.4-10.8) 07/10/18 06:36 RBC 3.18 m/cumm (4.00-5.20) L 07/10/18 06:36 Hgb 9.0 g/dL (12.0-15.5) L 07/10/18 06:36 Hct 29.4 % (36.0-46.0) L 07/10/18 06:36 MCV 92.5 fL (80-95) 07/10/18 06:36 MCH 28.3 pg (27.0-33.0) 07/10/18 06:36 MCHC 30.6 g/dL (32.0-36.0) L 07/10/18 06:36 RDW 15.3 % (11.7-14.6) H 07/10/18 06:36 Plt Count 396 x1000/uL (130-400) 07/10/18 06:36 MPV 10.0 fL (8.0-11.0) 07/10/18 06:36 Immature Gran % 0.2 07/10/18 06:36 Neutrophils % 72.5 07/10/18 06:36 Lymphocytes % 11.6 07/10/18 06:36 Monocytes % 14.6 07/10/18 06:36 Eosinophils % 0.9 07/10/18 06:36 Basophils % 0.2 07/10/18 06:36 Absolute Neutrophils 7.16 k/cumm (1.2-6.7) H 07/10/18 06:36 Band Neutrophils 1.0 % 07/09/18 06:35 Absolute Lymphocytes 1.15 k/cumm (1.2-3.4) L 07/10/18 06:36 Absolute Monocytes 1.44 k/cumm (0.11-0.7) H 07/10/18 06:36 Absolute Eosinophils 0.09 k/cumm (0.0-0.7) 07/10/18 06:36 Absolute Basophils 0.02 k/cumm (0.0-0.2) 07/10/18 06:36 Differential Comment Manual differential 07/09/18 06:35 Atypical Lymphocytes 5 07/09/18 06:35 RBC Morphology See below 07/09/18 06:35 Polychromasia Present 07/09/18 06:35 Hypochromasia 1+ 07/09/18 06:35 PT 11.5 sec (9.3-11.0) H 07/08/18 03:15 INR 1.1 (1.0-3.5) 07/08/18 03:15 APTT 21.7 sec (21.0-31.4) 07/08/18 03:15 Sodium 136 mmol/L (136-145) 07/10/18 06:36 Potassium 2.9 mmol/L (3.5-5.1) L* 07/10/18 06:36 Chloride 98 mmol/L (98-107) 07/10/18 06:36 Carbon Dioxide 31.8 mmol/L (21.0-32.0) 07/10/18 06:36 Anion Gap 6.2 mmol/L (3-11) 07/10/18 06:36 BUN 12 mg/dL (7-18) 07/10/18 06:36 Creatinine 1.09 mg/dL (0.55-1.02) H 07/10/18 06:36 Estimated GFR/1.73 m2 48.80 (mL/min/1.73m2) 07/10/18 06:36 Glucose 107 mg/dL (70-100) H 07/10/18 06:36 Calcium 7.8 mg/dL (8.5-10.1) L 07/10/18 06:36 Magnesium 1.3 mg/dL (1.8-2.4) L 07/10/18 06:36 Total Bilirubin 0.3 mg/dL (0.2-1.0) 07/09/18 06:13 AST 14 U/L (15-37) L 07/09/18 06:13 ALT 15 U/L (12-78) 07/09/18 06:13 Alkaline Phosphatase 57 U/L (46-116) 07/09/18 06:13 Total Protein 6.2 g/dL (6.4-8.2) L 07/09/18 06:13 Albumin 2.2 g/dL (3.4-5.0) L 07/09/18 06:13 Urine Color Yellow (Yellow) 07/08/18 03:35 Urine Clarity Clear 07/08/18 03:35 Urine pH 6.5 (5-8) 07/08/18 03:35 Ur Specific [place] 1.010 (1.005-1.025) 07/08/18 03:35 Urine Protein Negative mg/dL (Negative) 07/08/18 03:35 Urine Ketones Negative mg/dL (Negative) 07/08/18 03:35 Urine Blood Negative (Negative) 07/08/18 03:35 Urine Nitrite Negative (Negative) 07/08/18 03:35 Urine Bilirubin Negative (Negative) 07/08/18 03:35 Urine Urobilinogen 0.2 EU/dL (Up TO 0.2) 07/08/18 03:35 Ur Leukocyte Esterase Negative (Negative) 07/08/18 03:35 Urine Glucose Negative mg/dL (Negative) 07/08/18 03:35 Patient ABO/Rh O Positive 07/08/18 04:35 Antibody Screen Negative 07/08/18 04:35
--- NOTE | 2018-07-10 10:05 | DI.RAD_ITS ---
SYMPTOM/DIAGNOSIS: ? PNEUMONIA, FEVER OF UNKNOWN ETIOLOGY, GI BLEED PA AND LATERAL CHEST: The heart is not enlarged. The lungs are clear and well expanded. No pleural effusion is seen. Note is made of multiple dilated small bowel loops in the upper to mid abdomen, nonspecific finding but this may represent obstruction or ileus.
--- NOTE | 2018-07-10 10:38 | DI.VRAD_ITS ---
EXAM: XR Chest, 2 Views EXAM DATE/TIME: 07/10/2018 9:32 AM CLINICAL HISTORY: 77 years old, female; Signs and symptoms; Other: R/O pna - fuo TECHNIQUE: XR of the chest, 2 views. COMPARISON: CR CHEST 2 VIEWS PA,LAT 02/26/2017 2:07 PM FINDINGS: Lungs: Unremarkable. No consolidation. Pleural space: Unremarkable. No pleural effusion. No pneumothorax. Heart/Mediastinum: Unremarkable. No cardiomegaly. Upper abdomen: Dilated loops of bowel in the upper abdomen may represent obstruction or ileus. Bones/joints: Unremarkable. IMPRESSION: Dilated loops of bowel in the upper abdomen may represent obstruction or ileus. Dictated and Authenticated by: Floyd Yee MD. Ordering:ASHLIE San MD
[2018-07-10] MEDS: MAGNESIUM SULFATE 2 GM/50 ML BAG IVPB ×2 (10:39→12:45)
[2018-07-10] MEDS: POTASSIUM CHLORIDE 10 MEQ/100 ML BAG 100 MEQ IVPB ×4 (11:10→16:18)
[2018-07-10 13:16] LABS: Bilirubin Negative (Negative); Blood Negative (Negative); Clarity Cloudy; Glucose Negative (Negative); Ketones Negative (Negative); Leukocyte Esterase Trace (Negative); Nitrite Positive (Negative); Specific Gravity 1.025 (1.005-1.025); Urobilinogen 0.2 EU/dL (Up TO 0.2); pH 5.5 (5-8)
[2018-07-10 13:33] LABS: C & S Indicated? Yes
[2018-07-10] MEDS: Ondansetron 4 MG/2 ML VIAL IVP (15:34)
[2018-07-10] MEDS: PIPERACILLIN/TAZO 2.25 GM in Normal Saline 50 ML IVPB ×2 (15:35→21:22)
--- NOTE | 2018-07-10 18:41 | PGE_ITS ---
Date of Service Date of service: 07/10/18 Time of Service: 18:34 Subjective Interval history since last seen: I was consulted by Dr Schwarz for patient's nonspecific symptoms/FUO. Attempted to see patient twice today. The first time, the patient and I spoke about her symptoms - which were nonspecific, like I just don't feel well, I can't get comfortable in the bed, etc. The patient specifically denied any headaches, dizziness, chest pain, shortness of breath, cough. She endorsed some nausea. She reported passing flatus and not having dysuria. Our conversation got interrupted by an emergency. The 2nd time around, the patient was using the bathroom and asked me to follow up with her tomorrow. I have reviewed her medical record and discussed the case with Dr Schwarz. Full consult will be completed tomorrow - however, at this time, she does have evidence of a pyuria on UA - while this may reflect colonization in absence of symptoms, the patient is chronically immunosuppressed, and so I am electing to start her on ceftriaxone. Her low K and magnesium need to be monitored and repleted. 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 A steroid pulse could be considered. Defering managemen t of questionable ileus to surgical team. Objective Objective Clinical Data: Abnormal lab results 07/10/18 07/10/18 07/10/18 Range/Units 06:36 06:36 13:00 RBC 3.18 L (4.00-5.20) m/cumm Hgb 9.0 L (12.0-15.5) g/dL Hct 29.4 L (36.0-46.0) % MCHC 30.6 L (32.0-36.0) g/dL RDW 15.3 H (11.7-14.6) % Absolute Neutrophils 7.16 H (1.2-6.7) k/cumm Absolute Lymphocytes 1.15 L (1.2-3.4) k/cumm Absolute Monocytes 1.44 H (0.11-0.7) k/cumm Potassium 2.9 L* (3.5-5.1) mmol/L Creatinine 1.09 H (0.55-1.02) mg/dL Glucose 107 H (70-100) mg/dL Calcium 7.8 L (8.5-10.1) mg/dL Magnesium 1.3 L (1.8-2.4) mg/dL Urine Nitrite Positive H (Negative) Ur Leukocyte Esterase Trace H (Negative) Vital Signs Temperature 36.8 C 07/10/18 15:43 Temperature Source Tympanic 07/10/18 15:43 Pulse 68 07/10/18 15:43 Pulse Rhythm Regular 07/10/18 08:35 Respiratory Rate 19 07/10/18 15:43 Respiratory Effort Non-Labored 07/10/18 08:35 Respiratory Depth Normal 07/10/18 08:35 Respiratory Pattern Normal 07/10/18 08:35 Blood Pressure 145/69 H 07/10/18 15:43 Pulse Oximetry 95 07/10/18 15:43 Oxygen Delivery Method Room Air 07/10/18 15:43 Oxygen Flow Rate 0 07/10/18 15:43 Pain Level 0 07/09/18 10:51 Comment 07/08/18 02:37 Intake & Output 07/09/18 07/10/18 07/10/18 23:59 11:59 23:59 Intake Total 1607.333 / 2302.000 1430 / 3580.000 2150.000 / 3580.000 Output Total 125 / 1100 600 / 600 Balance 1482.333 / 1446.286 9750 / 2980.000 1550.000 / 2980.000 Intake: IV 1607.333 / 2062.000 1310 / 2910.000 1600.000 / 2910.000 Oral 120 / 670 550 / 670 Output: Urine 125 / 750 600 / 600 Other: Urine Color Yellow Yellow Yellow Urine Appearance Clear Clear Clear Urine Odor Normal Normal None Comment MIXED W STOOL pt voided in commode, urine mixed with stool. Void x1 in the toilet. Stool Size Small Small Small Stool Characteristics Soft Soft Soft Formed Liquid Liquid Brown Brown Green Voiding Methods Bedside Commode Bedside Commode Toilet Laboratory Results WBC 9.88 k/cumm (4.4-10.8) 07/10/18 06:36 RBC 3.18 m/cumm (4.00-5.20) L 07/10/18 06:36 Hgb 9.0 g/dL (12.0-15.5) L 07/10/18 06:36 Hct 29.4 % (36.0-46.0) L 07/10/18 06:36 MCV 92.5 fL (80-95) 07/10/18 06:36 MCH 28.3 pg (27.0-33.0) 07/10/18 06:36 MCHC 30.6 g/dL (32.0-36.0) L 07/10/18 06:36 RDW 15.3 % (11.7-14.6) H 07/10/18 06:36 Plt Count 396 x1000/uL (130-400) 07/10/18 06:36 MPV 10.0 fL (8.0-11.0) 07/10/18 06:36 Immature Gran % 0.2 07/10/18 06:36 Neutrophils % 72.5 07/10/18 06:36 Lymphocytes % 11.6 07/10/18 06:36 Monocytes % 14.6 07/10/18 06:36 Eosinophils % 0.9 07/10/18 06:36 Basophils % 0.2 07/10/18 06:36 Absolute Neutrophils 7.16 k/cumm (1.2-6.7) H 07/10/18 06:36 Band Neutrophils 1.0 % 07/09/18 06:35 Absolute Lymphocytes 1.15 k/cumm (1.2-3.4) L 07/10/18 06:36 Absolute Monocytes 1.44 k/cumm (0.11-0.7) H 07/10/18 06:36 Absolute Eosinophils 0.09 k/cumm (0.0-0.7) 07/10/18 06:36 Absolute Basophils 0.02 k/cumm (0.0-0.2) 07/10/18 06:36 Differential Comment Manual differential 07/09/18 06:35 Atypical Lymphocytes 5 07/09/18 06:35 RBC Morphology See below 07/09/18 06:35 Polychromasia Present 07/09/18 06:35 Hypochromasia 1+ 07/09/18 06:35 PT 11.5 sec (9.3-11.0) H 07/08/18 03:15 INR 1.1 (1.0-3.5) 07/08/18 03:15 APTT 21.7 sec (21.0-31.4) 07/08/18 03:15 Sodium 136 mmol/L (136-145) 07/10/18 06:36 Potassium 2.9 mmol/L (3.5-5.1) L* 07/10/18 06:36 Chloride 98 mmol/L (98-107) 07/10/18 06:36 Carbon Dioxide 31.8 mmol/L (21.0-32.0) 07/10/18 06:36 Anion Gap 6.2 mmol/L (3-11) 07/10/18 06:36 BUN 12 mg/dL (7-18) 07/10/18 06:36 Creatinine 1.09 mg/dL (0.55-1.02) H 07/10/18 06:36 Estimated GFR/1.73 m2 48.80 (mL/min/1.73m2) 07/10/18 06:36 Glucose 107 mg/dL (70-100) H 07/10/18 06:36 Calcium 7.8 mg/dL (8.5-10.1) L 07/10/18 06:36 Magnesium 1.3 mg/dL (1.8-2.4) L 07/10/18 06:36 Total Bilirubin 0.3 mg/dL (0.2-1.0) 07/09/18 06:13 AST 14 U/L (15-37) L 07/09/18 06:13 ALT 15 U/L (12-78) 07/09/18 06:13 Alkaline Phosphatase 57 U/L (46-116) 07/09/18 06:13 Total Protein 6.2 g/dL (6.4-8.2) L 07/09/18 06:13 Albumin 2.2 g/dL (3.4-5.0) L 07/09/18 06:13 Urine Color Yellow (Yellow) 07/10/18 13:00 Urine Clarity Cloudy 07/10/18 13:00 Urine pH 5.5 (5-8) 07/10/18 13:00 Ur Specific [place] 1.025 (1.005-1.025) 07/10/18 13:00 Urine Protein Negative mg/dL (Negative) 07/10/18 13:00 Urine Ketones Negative mg/dL (Negative) 07/10/18 13:00 Urine Blood Negative (Negative) 07/10/18 13:00 Urine Nitrite Positive (Negative) H 07/10/18 13:00 Urine Bilirubin Negative (Negative) 07/10/18 13:00 Urine Urobilinogen 0.2 EU/dL (Up TO 0.2) 07/10/18 13:00 Ur Leukocyte Esterase Trace (Negative) H 07/10/18 13:00 Urine RBC Not Applicable 07/10/18 13:00 Urine WBC Not Applicable 07/10/18 13:00 Ur Epithelial Cells Not Applicable 07/10/18 13:00 Urine Crystals HPF (Negative) 07/10/18 13:00 Urine Bacteria Not Applicable 07/10/18 13:00 Urine Mucus Not Applicable 07/10/18 13:00 Ur Culture Indicated? Yes 07/10/18 13:00 Urine Glucose Negative mg/dL (Negative) 07/10/18 13:00 Patient ABO/Rh O Positive 07/08/18 04:35 Antibody Screen Negative 07/08/18 04:35
[2018-07-10 19:13] LABS: Magnesium 2.4 mg/dL (1.8-2.4); Potassium 3.8 mmol/L (3.5-5.1)
[2018-07-11] MEDS: Normal Saline Flush 10 ML SYR IVP ×10 (00:23→19:23)
[2018-07-11] MEDS: Ketorolac 15 MG/ML VIAL IVP (00:23)
[2018-07-11] MEDS: PIPERACILLIN/TAZO 2.25 GM in Normal Saline 50 ML IVPB ×2 (02:14→08:57)
[2018-07-11 04:52] VITALS: BP 144/70; PULSE 70; RESP 18; TEMP 37.4; O2SAT 96
[2018-07-11] MEDS: POTASSIUM CHLORIDE/D5-0.45NACL 1,000 ML 100 MEQ IV (05:47)
[2018-07-11] MEDS: Normal Saline 500 ML 30 ML IV (05:48)
[2018-07-11] MEDS: Pantoprazole 40 MG VIAL IVP (07:10)
[2018-07-11 07:25] LABS: Abs Immature Grans 0.06 k/cumm (0.0-0.09); HCT 27.8 % (36.0-46.0); HGB 8.6 g/dL (12.0-15.5); Mean Corp. HGB Concentration 30.9 g/dL (32.0-36.0); Mean Corpuscular Hemoglobin 28.2 pg (27.0-33.0); Mean Corpuscular Volume 91.1 fL (80-95); Mean Platelet Volume 10.2 fL (8.0-11.0); RBC 3.05 m/cumm (4.00-5.20); RBC Distribution Width 15.2 % (11.7-14.6); White Blood Cell Count 14.48 k/cumm (4.4-10.8)
[2018-07-11 07:40] LABS: Anion Gap 6.4 mmol/L (3-11); BUN 9 mg/dL (7-18); C-Reactive Protein 7.38 mg/dL (0.0-0.3); CO2 25.6 mmol/L (21.0-32.0); CREATININE 1.03 mg/dL (0.55-1.02); Calcium 7.6 mg/dL (8.5-10.1); Chloride 100 mmol/L (98-107); Glucose 98 mg/dL (70-100); Magnesium 1.9 mg/dL (1.8-2.4); Potassium 3.6 mmol/L (3.5-5.1); Sodium 132 mmol/L (136-145)
[2018-07-11 07:55] LABS: Absolute Basophil Count 0.14 k/cumm (0.0-0.2); Absolute Lymphocyte Count 0.72 k/cumm (1.2-3.4); Absolute Monocyte Count 1.59 k/cumm (0.11-0.7); Absolute Neutrophil Count 12.02 k/cumm (1.2-6.7); Anisocytosis 1+; Diff Comment Manual Differential; Platelet Count 420 x1000/uL (130-400)
[2018-07-11 07:56] LABS: Hypochromasia 1+; Polychromasia Present
[2018-07-11 07:57] VITALS: BP 130/68; PULSE 68; RESP 18; TEMP 36.6; O2SAT 94
--- NOTE | 2018-07-11 07:58 | CMPROGNOTE_ITS ---
- If Service Date Differs Date of service: 07/11/18 Time of Service: 07:57 Care Management Progress Note CM met with patient at the bedside there is no change in status today. She continues to receive IV antibiotics, and hospitalist consult. She has a picc line placed today and will have TPN started. She will have a CT scan today to rule out abscess. Pat is engaged in conversation and states she is actually starting to feel better today. She is being treated for a UTI as well. A: 77 year old female admitted to [facility] 07/08/18 for GI Bleed P: Pat will discharge when medically ready per MD. Anticipate patient will discharge with no services and follow up with surgical services. CM will continue to offer support to patient and care team regarding discharge planning and disposition.
[2018-07-11 08:12] LABS: ESR 30 MM/HR (0-30)
[2018-07-11] MEDS: methylPREDNISolone 4 MG TAB PO (08:57)
[2018-07-11] MEDS: Furosemide 20 MG TAB PO (08:57)
[2018-07-11] MEDS: Levothyroxine 100 MCG TAB PO (08:57)
[2018-07-11] MEDS: LORazepam 2 MG/ML VIAL 0.25 MG IVP (10:05)
[2018-07-11] MEDS: Enoxaparin 40 MG/0.4 ML SYR SC (10:06)
--- NOTE | 2018-07-11 10:19 | DI.CT_ITS ---
SYMPTOM/DIAGNOSIS: R/O INTRA-ABDOMINAL ABSCESS ABDOMINAL AND PELVIC CT : 07/11/18 CT examination of the abdomen and pelvis was performed with a bolus infusion of 100 cc Omnipaque 350. Examination is compared with most recent study of 07/09/18. The patent has reportedly had previous bowel perforation and resection with anastomosis 06/28/18 and incision re-opened and hematoma drainage in the intervening period. Recent CT of 07/09 showed intraluminal vs extraluminal gas in the region of the anastomosis, this finding is unchanged or less prominent on the current examination. No evidence of abscess. No free fluid identified in the peritoneal cavity. Increasing dilatation of small bowel loops noted in the upper abdomen with some bowel wall thickening, findings are nonspecific but the possibility of obstruction or internal hernia is not excluded. Liver, spleen, pancreas, gallbladder and bile ducts were unremarkable. Adrenals and kidneys show no significant change or abnormality. Abdominal aorta is of normal diameter and no major vascular abnormality is seen. CONCLUSION: 1. Increasing abnormally dilated loops of small bowel with associated wall thickening in the upper abdomen, obstruction or internal hernia not excluded 2. Indeterminate findings associated with the region of the rectosigmoid anastomosis, extraluminal air may be present but unchanged in comparison with 07/09. No evidence of abscess formation or free fluid. This gas may lie in the sigmoid mesocolon. Appropriate follow up studies requested.
[2018-07-11] MEDS: HYDROmorphone 2 MG/ML VIAL IVP (10:38)
--- NOTE | 2018-07-11 10:53 | PGE_ITS ---
Date of Service Date of service: 07/11/18 Time of Service: 10:33 Assessment and Plan (1) Postoperative wound hematoma: Current visit: Yes Status: Acute A\\ Wound is nice and clean. No discharge. NO erythema P\\ Continue with BID moist to dry dressing changes (2) Postoperative ileus: Current visit: Yes Status: Acute A\\ Clinically improving, but still gets nauseated. I am very suspicious that there is an abscess somewhere in her abdomen even though her CT scan on Thursday (without contrast) was unremarkable. P\\ CT scan ABDO/Pelvis with IV and oral contrast Due to her documented allergy to contrast, although this was 10+ years ago I will pre-treat with hydrocortizone and dyphenhydramine to minimize chance of reaction If there is an abscess then hopefully I can set [place] [facility] [place]. I discussed the plan with Pat including the pre-treatment with Hydrocortisone and Diphenhydramine to reduce chance of allergic reaction. (3) Leukocytosis: Current visit: Yes Status: Acute A\\ Worsening WBC count with Bandemia and increased ESR and CRP. Clinically patient feels better and looks better but I am concerned about abscess. UA shows a possible UTI. P\\ Patient will be switched to Cipro and Flagyl for antibiotic coverage. This should cover her UTI, wound infection (Klebsiella pneumonia) and possible intra- abdominal abscess. Qualifiers: Leukocytosis type: bandemia Qualified Code(s): D72.825 - Bandemia (4) Malnutrition following gastrointestinal surgery: Current visit: Yes Status: Acute A\\ Pat has had minimal nutrition now for 2 weeks P\\ PICC line placement today Start TPN for nutritional support until Pat is able to eat. (5) Discharge planning issues: Current visit: No Status: Acute A\P: 1- Hypokalemia and hypomagnesemia corrected at this time. Will continue to monitor and replace as needed. 2. Appreciate Hospitalist assistance with this patient (6) Hypothyroidism: Current visit: No Status: Acute Will switch levothyroxine to IV Qualifiers: Hypothyroidism type: acquired Qualified Code(s): E03.9 - Hypothyroidism, unspecified Subjective Interval history since last seen: Pat tells me she feels better today. Continues to not complain of any abdominal pain, chest pain or SOB. UA with possible infection. Continues to pass flatus and have liquid BM's. Feels hungry but did get nauseated yesterday after drinking clear liquids. Back to ice chips. Complains of cracked lips at the edges. Exam Resp Effort & Inspection: normal respiratory effort Auscultation: clear to auscultation bilaterally Cardio Rate: regular rate Rhythm: regular rhythm Heart Sounds: no gallops, murmur and no rubs GI Inspection: incision (Upper 2/3 c/d/i lower part open) Palpation: soft, no hepatosplenomegaly and nontender Auscultation: normal bowel sounds (improved BS from yesterday) Other: Lower incision- open wound. Looks clean, no discharge. Fascia intact Objective Objective Clinical Data: Abnormal lab results 07/10/18 07/11/18 07/11/18 Range/Units 13:00 06:20 06:20 WBC 14.48 H D (4.4-10.8) k/cumm RBC 3.05 L (4.00-5.20) m/cumm Hgb 8.6 L (12.0-15.5) g/dL Hct 27.8 L (36.0-46.0) % MCHC 30.9 L (32.0-36.0) g/dL RDW 15.2 H (11.7-14.6) % Plt Count 420 H (130-400) x1000/uL Absolute Neutrophils 12.02 H (1.2-6.7) k/cumm Absolute Lymphocytes 0.72 L (1.2-3.4) k/cumm Absolute Monocytes 1.59 H (0.11-0.7) k/cumm Sodium 132 L (136-145) mmol/L Creatinine 1.03 H (0.55-1.02) mg/dL Calcium 7.6 L (8.5-10.1) mg/dL C-Reactive Protein 7.38 H (0.0-0.3) mg/dL Urine Nitrite Positive H (Negative) Ur Leukocyte Esterase Trace H (Negative) Vital Signs Temperature 97.9 F 07/11/18 07:57 Temperature Source Tympanic 07/11/18 07:57 Pulse 68 07/11/18 07:57 Pulse Rhythm Regular 07/11/18 00:50 Respiratory Rate 18 07/11/18 07:57 Respiratory Effort Non-Labored 07/11/18 00:50 Respiratory Depth Normal 07/11/18 00:50 Respiratory Pattern Normal 07/11/18 00:50 Blood Pressure 130/68 07/11/18 07:57 Pulse Oximetry 94 L 07/11/18 07:57 Oxygen Delivery Method Room Air 07/11/18 07:57 Oxygen Flow Rate 0 07/11/18 07:57 Pain Level 0 07/11/18 07:57 Comment 07/08/18 02:37 Intake & Output 07/10/18 07/10/18 07/11/18 11:59 23:59 11:59 Intake Total 1430 / 4555.000 3125.000 / 4555.000 866 / 866 Output Total 600 / 600 Balance 1430 / 3955.000 2525.000 / 3955.000 866 / 866 Intake: IV 1310 / 3365.000 2055.000 / 3365.000 866 / 866 Oral 120 / 1190 1070 / 1190 Output: Urine 600 / 600 Other: Urine Color Yellow Pale Urine Appearance Clear Clear Urine Odor Normal Normal Comment pt voided in commode, urine mixed with stool. Void x1 in the toilet. void mixed with stool Stool Size Small Small Moderate Stool Characteristics Soft Soft Liquid Liquid Brown Green Voiding Methods Bedside Commode Toilet Laboratory Results WBC 14.48 k/cumm (4.4-10.8) H D 07/11/18 06:20 RBC 3.05 m/cumm (4.00-5.20) L 07/11/18 06:20 Hgb 8.6 g/dL (12.0-15.5) L 07/11/18 06:20 Hct 27.8 % (36.0-46.0) L 07/11/18 06:20 MCV 91.1 fL (80-95) 07/11/18 06:20 MCH 28.2 pg (27.0-33.0) 07/11/18 06:20 MCHC 30.9 g/dL (32.0-36.0) L 07/11/18 06:20 RDW 15.2 % (11.7-14.6) H 07/11/18 06:20 Plt Count 420 x1000/uL (130-400) H 07/11/18 06:20 MPV 10.2 fL (8.0-11.0) 07/11/18 06:20 Immature Gran % 0.0 07/11/18 06:20 Neutrophils % 65.0 07/11/18 06:20 Lymphocytes % 5.0 07/11/18 06:20 Monocytes % 11.0 07/11/18 06:20 Eosinophils % 0.0 07/11/18 06:20 Basophils % 1.0 07/11/18 06:20 Absolute Neutrophils 12.02 k/cumm (1.2-6.7) H 07/11/18 06:20 Band Neutrophils 18.0 % 07/11/18 06:20 Absolute Lymphocytes 0.72 k/cumm (1.2-3.4) L 07/11/18 06:20 Absolute Monocytes 1.59 k/cumm (0.11-0.7) H 07/11/18 06:20 Absolute Eosinophils 0.00 k/cumm (0.0-0.7) 07/11/18 06:20 Absolute Basophils 0.14 k/cumm (0.0-0.2) 07/11/18 06:20 Differential Comment Manual differential 07/11/18 06:20 Atypical Lymphocytes 5 07/09/18 06:35 RBC Morphology See below 07/11/18 06:20 Polychromasia Present 07/11/18 06:20 Hypochromasia 1+ 07/11/18 06:20 Anisocytosis 1+ 07/11/18 06:20 ESR 30 MM/HR (0-30) 07/11/18 06:20 PT 11.5 sec (9.3-11.0) H 07/08/18 03:15 INR 1.1 (1.0-3.5) 07/08/18 03:15 APTT 21.7 sec (21.0-31.4) 07/08/18 03:15 Sodium 132 mmol/L (136-145) L 07/11/18 06:20 Potassium 3.6 mmol/L (3.5-5.1) 07/11/18 06:20 Chloride 100 mmol/L (98-107) 07/11/18 06:20 Carbon Dioxide 25.6 mmol/L (21.0-32.0) 07/11/18 06:20 Anion Gap 6.4 mmol/L (3-11) 07/11/18 06:20 BUN 9 mg/dL (7-18) 07/11/18 06:20 Creatinine 1.03 mg/dL (0.55-1.02) H 07/11/18 06:20 Estimated GFR/1.73 m2 52.10 (mL/min/1.73m2) 07/11/18 06:20 Glucose 98 mg/dL (70-100) 07/11/18 06:20 Calcium 7.6 mg/dL (8.5-10.1) L 07/11/18 06:20 Magnesium 1.9 mg/dL (1.8-2.4) 07/11/18 06:20 Total Bilirubin 0.3 mg/dL (0.2-1.0) 07/09/18 06:13 AST 14 U/L (15-37) L 07/09/18 06:13 ALT 15 U/L (12-78) 07/09/18 06:13 Alkaline Phosphatase 57 U/L (46-116) 07/09/18 06:13 C-Reactive Protein 7.38 mg/dL (0.0-0.3) H 07/11/18 06:20 Total Protein 6.2 g/dL (6.4-8.2) L 07/09/18 06:13 Albumin 2.2 g/dL (3.4-5.0) L 07/09/18 06:13 Urine Color Yellow (Yellow) 07/10/18 13:00 Urine Clarity Cloudy 07/10/18 13:00 Urine pH 5.5 (5-8) 07/10/18 13:00 Ur Specific Windfall 1.025 (1.005-1.025) 07/10/18 13:00 Urine Protein Negative mg/dL (Negative) 07/10/18 13:00 Urine Ketones Negative mg/dL (Negative) 07/10/18 13:00 Urine Blood Negative (Negative) 07/10/18 13:00 Urine Nitrite Positive (Negative) H 07/10/18 13:00 Urine Bilirubin Negative (Negative) 07/10/18 13:00 Urine Urobilinogen 0.2 EU/dL (Up TO 0.2) 07/10/18 13:00 Ur Leukocyte Esterase Trace (Negative) H 07/10/18 13:00 Urine RBC Not Applicable 07/10/18 13:00 Urine WBC Not Applicable 07/10/18 13:00 Ur Epithelial Cells Not Applicable 07/10/18 13:00 Urine Crystals HPF (Negative) 07/10/18 13:00 Urine Bacteria Not Applicable 07/10/18 13:00 Urine Mucus Not Applicable 07/10/18 13:00 Ur Culture Indicated? Yes 07/10/18 13:00 Urine Glucose Negative mg/dL (Negative) 07/10/18 13:00 Patient ABO/Rh O Positive 07/08/18 04:35 Antibody Screen Negative 07/08/18 04:35
[2018-07-11] MEDS: MetroNIDAZOLE 500 MG/100 ML BAG 100 MG IVPB ×2 (11:31→19:22)
[2018-07-11 11:40] VITALS: BP 116/63; PULSE 68; RESP 17; TEMP 36.6; O2SAT 94
--- NOTE | 2018-07-11 12:28 | PT.INIE ---
Date of service: 07/11/18 Time of Service: 09:45 PT Notes Inpatient Physical Therapy Evaluation Date: July 11, 2018 Referring Doctor: Dr. Graeme Rosario PT Orders: PT CONSULT: Weakness, prolonged hospitalizaion Precautions: Fall precautions Patient Profile/Admitting Diagnosis: Patient underwent colonoscopy on 06/28, was discharged home then returned to ED 4 hours later with intensified abdominal pain radiating to her back. She was then sent to OR for free air procedure s/p colonoscopy. She has a history of severe diverticulosis and very tortuous colon. She suffered gastrointestinal hemorrhage status post colonoscopy. PMHX: Raynaud's disease (Acute) Primary osteoarthritis of left knee (Acute 07/30/15) PMR (polymyalgia rheumatica) (Acute 01/15/16) Osteoporosis (Acute) Osteopenia (Acute 07/30/16) Obstructive sleep apnea syndrome (Acute) Non-alcoholic fatty liver disease (Acute) Memory impairment (Acute 06/18/94) Increased body mass index (Acute) Hypothyroidism (Acute 04/05/12) Fracture, calcaneus closed (Acute 09/19/14) Excessive sweating (Acute 06/02/16) Depressive disorder (Acute) Colon polyp (Acute 06/28/18) Cataract (Acute 07/28/14) Benign paroxysmal positional vertigo (Acute) Abdominal pain (Acute 10/31/13) Insomnia (Acute) Tuberculosis (Chronic) Social History/Home Situation: Lives with in a single level dwelling with 4 steps and railing into home. Independent at baseline prior to hospitalization. Current Functional Limitations: Independent ambulation, stairs, lift and carrying Equipment Owned/DME: FWW at home with seat. Used when feeling unsteady and for longer community outings. Subjective: 'I have a lot of tests tomorrow. I am scheduled to get a PIC line later this morning. Overall, I think I am doing ok and feel pretty good.... just can't keep any food down.' Objective: At start of PT IE, patient was standing in bathroom washing her hands and face, leaning against sink with IV pole next to her. She reports independence in walking in room with use of IV pole. General Observation: IV in dorsal left hand. Mental Status: Alert and orientated x3. In good spirits Pain: No complaints. ROM: Right Upper Extremity: WFL throughout Left Upper Extremity: WFL throughout Right Lower Extremity: WFL throughout Left Lower Extremity: WFL throughout Strength: Right Upper Extremity: 4/5 throughout Left Upper Extremity: 4/5 throughout Right Lower Extremity: 4/5 throughout Left Lower Extremity: 4/5 throughout Bed Mobility/Transfers: Supine to sit: Independent Sit to stand: CG x1 to FWW Stand to sit: FWW CG x1 Bed mobility: patient reports independence. Gait: Ambulates 35 feet x2 with CG and FWW with verbal cues required for proper changing of direction (smaller steps). Balance: Static Sitting: Good Dynamic Sitting: Good Static Standing: Fair Dynamic Standing: Fair (+) Romberg Special Tests: Mobility Limitations Standardized Measure [facility] AM-PAC 6 clicks Basic Mobility Inpatient Short Form: Raw Score: 19 Standardized Score: 45.44 CMS Score: 41.77 CMS Modifier: CK Informed Consent/Education: Patient instructed in purpose of PT consult and plan of care. Assessment: Patient is a 77 year old female referred to physical therapy services with the diagnosis of weakness s/p prolonged hospitalization following lower gastrointestinal hemorrhage status post colonoscopy. Patient presents with clinical signs and symptoms consistent with this diagnosis, as demonstrated by the following impairment level findings: balance, gait, muscle performance and functional mobility. Impairments are contributing to the following functional limitations: AMPAC score.41.77% Patient is assessed as a X Low 05594 [] Moderate 88748 [] High 39790 complexity based on the following: History: see above Examination: see above Presentation: stable Decision Making: Low base on AMPAC Goals: Goals X1 week 1. Supine-Sit: supervision 2. Sit-Supine: supervision 3. Sit-Stand: supervision with FWW 4. Stand-Sit: supervision with FWW 5. Bed-Chair: supervision with FWW 6. Chair-Bed: supervision with FWW 7. Gait: greater than or equal to 200 feet with FWW and SBA 8. Stairs: 4 up and down with supervision Plan of Care/Treatment Plan: 1-2x/day, 7 days/week x 1 week. Plan of care has been reviewed with the GRADER TENDER providing the service under Physical Therapy direction. Initiate Physical Therapy intervention for strengthening, bed mobility, transfers, gait, stairs, balance training, use of assistive device. DISCHARGE RECOMMENDATIONS: Discharge to home when medically stable. TREATMENT CODE/TIME: 48555, IE 9:45 G Codes in the area mobility of walking and moving around: current status [id number] CK; projected status GP [id number]. Discharge status (if discharging) GP G8980 [].
--- NOTE | 2018-07-11 12:31 | IN_ITS ---
Date of service: 07/11/18 Time of Service: 09:45 PT Notes Inpatient Physical Therapy Evaluation Date: July 11, 2018 Referring Doctor: Dr. Graeme Rosario PT Orders: PT CONSULT: Weakness, prolonged hospitalizaion Precautions: Fall precautions Patient Profile/Admitting Diagnosis: Patient underwent colonoscopy on 06/28, was discharged home then returned to ED 4 hours later with intensified abdominal pain radiating to her back. She was then sent to OR for free air procedure s/p colonoscopy. She has a history of severe diverticulosis and very tortuous colon. She suffered gastrointestinal hemorrhage status post colonoscopy. PMHX: Raynaud's disease (Acute) Primary osteoarthritis of left knee (Acute 07/30/15) PMR (polymyalgia rheumatica) (Acute 01/15/16) Osteoporosis (Acute) Osteopenia (Acute 07/30/16) Obstructive sleep apnea syndrome (Acute) Non-alcoholic fatty liver disease (Acute) Memory impairment (Acute 06/18/94) Increased body mass index (Acute) Hypothyroidism (Acute 04/05/12) Fracture, calcaneus closed (Acute 09/19/14) Excessive sweating (Acute 06/02/16) Depressive disorder (Acute) Colon polyp (Acute 06/28/18) Cataract (Acute 07/28/14) Benign paroxysmal positional vertigo (Acute) Abdominal pain (Acute 10/31/13) Insomnia (Acute) Tuberculosis (Chronic) Social History/Home Situation: Lives with in a single level dwelling with 4 steps and railing into home. Independent at baseline prior to hospi talization. Current Functional Limitations: Independent ambulation, stairs, lift and carrying Equipment Owned/DME: FWW at home with seat. Used when feeling unsteady and for longer community outings. Subjective: 'I have a lot of tests tomorrow. I am scheduled to get a PIC line later this morning. Overall, I think I am doing ok and feel pretty good.... just can't keep any food down.' Objective: At start of PT IE, patient was standing in bathroom washing her hands and face, leaning against sink with IV pole next to her. She reports independence in walking in room with use of IV pole. General Observation: IV in dorsal left hand. Mental Status: Alert and orientated x3. In good spirits Pain: No complaints. ROM: Right Upper Extremity: WFL throughout Left Upper Extremity: WFL throughout Right Lower Extremity: WFL throughout Left Lower Extremity: WFL throughout Strength: Right Upper Extremity: 4/5 throughout Left Upper Extremity: 4/5 throughout Right Lower Extremity: 4/5 throughout Left Lower Extremity: 4/5 throughout Bed Mobility/Transfers: Supine to sit: Independent Sit to stand: CG x1 to FWW Stand to sit: FWW CG x1 Bed mobility: patient reports independence. Gait: Ambulates 35 feet x2 with CG and FWW with verbal cues required for proper changing of direction (smaller steps). Balance: Static Sitting: Good Dynamic Sitting: Good Static Standing: Fair Dynamic Standing: Fair (+) Romberg Special Tests: Mobility Limitations Standardized Measure [facility] AM-PAC 6 clicks Basic Mobility Inpatient Short Form: Raw Score: 19 Standardized Score: 45.44 CMS Score: 41.77 CMS Modifier: CK Informed Consent/Education: Patient instructed in purpose of PT consult and plan of care. Assessment: Patient is a 77 year old female referred to physical therapy services with the diagnosis of weakness s/p prolonged hospitalization following lower gastrointestinal hemorrhage status post colonoscopy. Patient presents with clinical signs and symptoms consistent with this diagnosis, as demonstrated by the following impairment level findings: balance, gait, muscle performance and functional mobility. Impairments are contributing to the following functional limitations: AMPAC score.41.77% Patient is assessed as a X Low 61931 [] Moderate 40031 [] High 24540 complex ity based on the following: History: see above Examination: see above Presentation: stable Decision Making: Low base on AMPA Goals: Goals X1 week 1. Supine-Sit: supervision 2. Sit-Supine: supervision 3. Sit-Stand: supervision with FWW 4. Stand-Sit: supervision with FWW 5. Bed-Chair: supervision with FWW 6. Chair-Bed: supervision with FWW 7. Gait: greater than or equal to 200 feet with FWW and SBA 8. Stairs: 4 up and down with supervision Plan of Care/Treatment Plan: 1-2x/day, 7 days/week x 1 week. Plan of care has been reviewed with the BAG MACHINE ADJUSTER providing the service under Physical Therapy direction. Initiate Physical Therapy intervention for strengthening, bed mobility, transfers, gait, stairs, balance training, use of assistive device. DISCHARGE RECOMMENDATIONS: Discharge to home when medically stable. TREATMENT CODE/TIME: 13170, IE 9:45 G Codes in the area mobility of walking and moving around: current status [id number] CK; projected status GP [id number]. Discharge status (if discharging) GP G8980 [].
[2018-07-11] MEDS: CIPROFLOXACIN 400 MG/200 ML BAG 200 MG IVPB (13:04)
[2018-07-11] MEDS: methylPREDNISolone SUCC 40 MG VIAL IVP (13:10)
[2018-07-11] MEDS: diphenhydrAMINE 50 MG/ML VIAL IVP (13:33)
--- NOTE | 2018-07-11 14:44 | W.MEDCONSULT ---
Date of service: 07/11/18 Time of Service: 14:45 Assessment and Plan (1) SIRS (systemic inflammatory response syndrome): Current visit: Yes Status: Acute with bandemia noted on today's labs. Preliminary CT results just became available - there is a suggestion of SBO or possible anastomotic leak, but no intraabdominal abscess. Patient also has a suggestion of UTI on UA. Antibiotics changed today to cipro/flagyl by primary team. I do not see any evidence of clinical peritonitis, but if anastomotic leak cannot be excluded, then cipro/flagyl are a great choice. Cipro will cover most UTI's as well. While diarrhea is expected with reglan use, C.Diff PCR is pending. (2) UTI (urinary tract infection): Current visit: Yes Status: Acute Await urine c&s. (3) Malnutrition following gastrointestinal surgery: Current visit: Yes Status: Acute Agree with TPN. (4) Lower gastrointestinal bleed: Current visit: Yes Status: Acute H/H is stable, seems to not be clinically significant. Has not required any blood transfusions on this admission. Continue to monitor H/H. (5) S/P exploratory laparotomy: Current visit: No Status: Acute See discussion above re possibility of post-op complications (6) Postoperative ileus: Current visit: Yes Status: Acute vs SBO. Patient is being initiated on TPN. Defer to primary team. (7) Chronic adrenal insufficiency: Current visit: Yes Status: Chronic The patient can likely be continued on PO steroids, but the question is whether or not she should receive stress dose steroids at this point. Her sodium and glucose are indeed going down, so an acute component of adrenal insufficiency is possible. The patient received a pulse of steroids today as premedication for her IV contrast. Will monitor clinically. (8) PMR (polymyalgia rheumatica): Current visit: No Status: Chronic Continue steroids. Agree with holding methotrexate. 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 The patient improved throughout her hospital course and was discharged home on 07/05 after return of bowel function and tolerating PO. She was readmitted to the surgical service on 07/08/18 after blood was noted on the floor of her underwear. The patient had an NG tube placed for bilious emesis, but there was no imaging evidence for either ileus or SBO. Additionally, the patient felt generally weak/unwell, though her symptoms were nonspecific. Her clinical picture was not consistent with peritonitis. She denied abdominal pain, had bowel movements and was able to pass flatus, but had difficulty tolerating PO due to nausea. Hospitalists were consulted to help elucidate the reason for patient's symptoms as her clinical picture was not quite congruent with her imaging. At the time of this consult, the patient just underwent CT imaging of her abdomen with contrast, the results of which are not yet known to me. The patient states she is no longer nauseated. She had non-bloody diarrhea last night, since being started on reglan and clear liquids. She is being initiated on TPN. She denies dizziness, chest pain, shortness of breath, cough, body or joint aches. She is tired, hasn't been able to sleep, and does not know why she feels generally poorly. Consults Consult date: 07/11/18 Requesting physician: My Schwarz Review of Systems Review of Systems 12 systems reviewed. Pertinent positives and negatives are as per HPI. [facility] Medical History Raynaud's disease (Acute) Primary osteoarthritis of left knee (Acute 07/30/15) PMR (polymyalgia rheumatica) (Acute 01/15/16) Osteoporosis (Acute) Osteopenia (Acute 07/30/16) Obstructive sleep apnea syndrome (Acute) Non-alcoholic fatty liver disease (Acute) Memory impairment (Acute 06/18/94) Increased body mass index (Acute) Hypothyroidism (Acute 04/05/12) Fracture, calcaneus closed (Acute 09/19/14) Excessive sweating (Acute 06/02/16) Depressive disorder (Acute) Colon polyp (Acute 06/28/18) Cataract (Acute 07/28/14) Benign paroxysmal positional vertigo (Acute) Abdominal pain (Acute 10/31/13) Insomnia (Acute) Tuberculosis (Chronic) Surgical History S/P exploratory laparotomy (Acute ~06/28/18) H/O dilation and curettage (Acute) S/P tonsillectomy (Acute) Abdominal hysterectomy (~1975) Appendectomy Bilateral salpingectomy with oophorectomy (~1975) Colonoscopy - MAC EGD - MAC (~2003) Laparoscopic, Ovarian Cystectomy Rotator Cuff Repair Family History Mother Heart disease Father Stroke Sister No problems noted. Brother No problems noted. Grandfather Essential hypertension Heart disease Grandfather No problems noted. 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 HEENT: EOMI, MMM, clear oropharynx, no JVD, no goiter Cardiovascular: RRR, no m/r/g Lungs: CTAB Gastrointestinal: abdomen is soft; + Bowel sounds, nondistended, nontender Extremities: no e/c/c BLE's. Results Last Vital Signs Temp 36.6 C 07/11/18 11:40 Pulse 68 07/11/18 11:40 Resp 17 07/11/18 11:40 BP 116/63 07/11/18 11:40 Pulse Ox 94 L 07/11/18 11:40 Labs : 07/11/18 06:20 07/11/18 06:20 Laboratory Results - last 24 hr 07/10/18 07/11/18 07/11/18 18:20 05:35 06:20 WBC RBC Hgb Hct MCV MCH MCHC RDW Plt Count MPV Immature Gran % Neutrophils % Lymphocytes % Monocytes % Eosinophils % Basophils % Absolute Neutrophils Band Neutrophils Absolute Lymphocytes Absolute Monocytes Absolute Eosinophils Absolute Basophils Differential Comment RBC Morphology Polychromasia Hypochromasia Anisocytosis ESR Sodium Cancelled 132 L Potassium 3.8 D Cancelled 3.6 Chloride Cancelled 100 Carbon Dioxide Cancelled 25.6 Anion Gap Cancelled 6.4 BUN Cancelled 9 Creatinine Cancelled 1.03 H Estimated GFR/1.73 m2 Cancelled 52.10 Glucose Cancelled 98 Calcium Cancelled 7.6 L Magnesium 2.4 1.9 C-Reactive Protein 7.38 H 07/11/18 06:20 WBC 14.48 H D RBC 3.05 L Hgb 8.6 L Hct 27.8 L MCV 91.1 MCH 28.2 MCHC 30.9 L RDW 15.2 H Plt Count 420 H MPV 10.2 Immature Gran % 0.0 Neutrophils % 65.0 Lymphocytes % 5.0 Monocytes % 11.0 Eosinophils % 0.0 Basophils % 1.0 Absolute Neutrophils 12.02 H Band Neutrophils 18.0 Absolute Lymphocytes 0.72 L Absolute Monocytes 1.59 H Absolute Eosinophils 0.00 Absolute Basophils 0.14 Differential Comment Manual differential RBC Morphology See below Polychromasia Present Hypochromasia 1+ Anisocytosis 1+ ESR 30 Sodium Potassium Chloride Carbon Dioxide Anion Gap BUN Creatinine Estimated GFR/1.73 m2 Glucose Calcium Magnesium C-Reactive Protein
[2018-07-11] MEDS: Omnipaque 350 MG/ML 100 ML BTL IJ (15:01)
--- NOTE | 2018-07-11 15:15 | DI.VRAD_ITS ---
Addendum created by Luzmaria Wagner MD on 07/11/2018 3:21:17 PM EST I discussed case findings with My Schwarz 07/11/2018 3:19 PM EST. Initial report created on 07/11/2018 3:15:37 PM EST EXAM: CT Abdomen and Pelvis With Contrast EXAM DATE/TIME: 07/11/2018 10:19 AM CLINICAL HISTORY: 77 years old, female; Condition or disease; Abscess; Abscess location: Intra-abdominal; Patient HX: R/O intra-abdominal abscess TECHNIQUE: Axial computed tomography images of the abdomen and pelvis with intravenous contrast. Coronal and sagittal reformatted images were created and reviewed. GI contrast given. COMPARISON: CT Abdomen^ROUTINE ABDOMEN PELVIS WITHOUT (Adult) 07/09/2018 11:50 AM FINDINGS: Lower thorax: Small right pleural effusion with trace atelectasis. Mild cardiomegaly. Minimal bilateral upper quadrant ascites, new or increased. ABDOMEN: Liver: Normal. No mass. Gallbladder and bile ducts: Normal. No calcified stones. No ductal dilation. Pancreas: Normal. No ductal dilation. Spleen: Normal. No splenomegaly. Adrenals: Normal. No mass. Kidneys and ureters: There are bilateral renal cysts. Stomach and bowel: There are fluid-filled distended small bowel loops seen proximally, increased in conspicuity compared to prior exam. There appears to be some mild wall thickening involving jejunal loops. Diameter is up to 3.5 cm. There is extraluminal air seen in the sigmoid mesocolon. Rectosigmoid anastomosis noted. Appendix: No evidence of appendicitis. PELVIS: Bladder: Unremarkable as visualized. Reproductive: Status post hysterectomy. ABDOMEN and PELVIS: Intraperitoneal space: See Lower Thorax Finding. Bones/joints: No acute fracture. No dislocation. Soft tissues: Minimal fluid noted in the midline scar above the periumbilical level. There is a secondary intention healing wound seen at the pelvic level anteriorly. Vasculature: Severe atherosclerotic change present in the vasculature. There is a whorled pattern to the right mesenteric vasculature again seen. Lymph nodes: Normal. No enlarged lymph nodes. IMPRESSION: 1. No evidence for abscess. 2. Small bowel distention concerning for possible obstruction. Internal hernia or less likely volvulus are considerations. 3. Minimal ascites, new or increased. 4. Persistent extraluminal air noted in the sigmoid mesocolon. Anastomotic leak not excludable. COMMENT: Preliminary interpretation is based on receipt of 349 image(s). A final report will be issued subsequently. Dictated and Authenticated by: Luzmaria Wagner MD. Ordering:VERNON Pepe MD
--- NOTE | 2018-07-11 15:25 | PGE_ITS ---
Date of Service Date of service: 07/11/18 Time of Service: 15:22 Assessment and Plan (1) Postoperative ileus: Current visit: Yes Status: Acute CT scan reviewed with VRAD Concern for SBO no transition point Some small amount of air around the anastamosis but improved from CT scan on thursday. No abscess noted P\\ Continue with antibiotics. Continue NPO status Start TPN for nutrition Repeat labs in am If worsening labs will ask Dr. Rivas to speak to [facility] surgery to get their opinion. Subjective Interval history since last seen: Patient is feeling better. Objective Objective Clinical Data: Abnormal lab results 07/11/18 07/11/18 Range/Units 06:20 06:20 WBC 14.48 H D (4.4-10.8) k/cumm RBC 3.05 L (4.00-5.20) m/cumm Hgb 8.6 L (12.0-15.5) g/dL Hct 27.8 L (36.0-46.0) % MCHC 30.9 L (32.0-36.0) g/dL RDW 15.2 H (11.7-14.6) % Plt Count 420 H (130-400) x1000/uL Absolute Neutrophils 12.02 H (1.2-6.7) k/cumm Absolute Lymphocytes 0.72 L (1.2-3.4) k/cumm Absolute Monocytes 1.59 H (0.11-0.7) k/cumm Sodium 132 L (136-145) mmol/L Creatinine 1.03 H (0.55-1.02) mg/dL Calcium 7.6 L (8.5-10.1) mg/dL C-Reactive Protein 7.38 H (0.0-0.3) mg/dL Vital Signs Temperature 97.9 F 07/11/18 11:40 Temperature Source Tympanic 07/11/18 11:40 Pulse 68 07/11/18 11:40 Pulse Rhythm Regular 07/11/18 00:50 Respiratory Rate 17 07/11/18 11:40 Respiratory Effort Non-Labored 07/11/18 00:50 Respiratory Depth Normal 07/11/18 00:50 Respiratory Pattern Normal 07/11/18 00:50 Blood Pressure 116/63 07/11/18 11:40 Pulse Oximetry 94 L 07/11/18 11:40 Oxygen Delivery Method Room Air 07/11/18 11:40 Oxygen Flow Rate 0 07/11/18 11:40 Pain Level 0 07/11/18 11:40 Comment 07/08/18 02:37 Intake & Output 07/10/18 07/11/18 07/11/18 23:59 11:59 23:59 Intake Total 3125.000 / 4555.000 866 / 866 Output Total 600 / 600 Balance 2525.000 / 3955.000 866 / 866 Intake: IV 2055.000 / 3365.000 866 / 866 Oral 1070 / 1190 Output: Urine 600 / 600 Other: Urine Color Pale Urine Appearance Clear Urine Odor Normal Comment Void x1 in the toilet. void mixed with stool Stool Size Small Moderate Stool Characteristics Soft Liquid Voiding Methods Toilet Laboratory Results WBC 14.48 k/cumm (4.4-10.8) H D 07/11/18 06:20 RBC 3.05 m/cumm (4.00-5.20) L 07/11/18 06:20 Hgb 8.6 g/dL (12.0-15.5) L 07/11/18 06:20 Hct 27.8 % (36.0-46.0) L 07/11/18 06:20 MCV 91.1 fL (80-95) 07/11/18 06:20 MCH 28.2 pg (27.0-33.0) 07/11/18 06:20 MCHC 30.9 g/dL (32.0-36.0) L 07/11/18 06:20 RDW 15.2 % (11.7-14.6) H 07/11/18 06:20 Plt Count 420 x1000/uL (130-400) H 07/11/18 06:20 MPV 10.2 fL (8.0-11.0) 07/11/18 06:20 Immature Gran % 0.0 07/11/18 06:20 Neutrophils % 65.0 07/11/18 06:20 Lymphocytes % 5.0 07/11/18 06:20 Monocytes % 11.0 07/11/18 06:20 Eosinophils % 0.0 07/11/18 06:20 Basophils % 1.0 07/11/18 06:20 Absolute Neutrophils 12.02 k/cumm (1.2-6.7) H 07/11/18 06:20 Band Neutrophils 18.0 % 07/11/18 06:20 Absolute Lymphocytes 0.72 k/cumm (1.2-3.4) L 07/11/18 06:20 Absolute Monocytes 1.59 k/cumm (0.11-0.7) H 07/11/18 06:20 Absolute Eosinophils 0.00 k/cumm (0.0-0.7) 07/11/18 06:20 Absolute Basophils 0.14 k/cumm (0.0-0.2) 07/11/18 06:20 Differential Comment Manual differential 07/11/18 06:20 Atypical Lymphocytes 5 07/09/18 06:35 RBC Morphology See below 07/11/18 06:20 Polychromasia Present 07/11/18 06:20 Hypochromasia 1+ 07/11/18 06:20 Anisocytosis 1+ 07/11/18 06:20 ESR 30 MM/HR (0-30) 07/11/18 06:20 PT 11.5 sec (9.3-11.0) H 07/08/18 03:15 INR 1.1 (1.0-3.5) 07/08/18 03:15 APTT 21.7 sec (21.0-31.4) 07/08/18 03:15 Sodium 132 mmol/L (136-145) L 07/11/18 06:20 Potassium 3.6 mmol/L (3.5-5.1) 07/11/18 06:20 Chloride 100 mmol/L (98-107) 07/11/18 06:20 Carbon Dioxide 25.6 mmol/L (21.0-32.0) 07/11/18 06:20 Anion Gap 6.4 mmol/L (3-11) 07/11/18 06:20 BUN 9 mg/dL (7-18) 07/11/18 06:20 Creatinine 1.03 mg/dL (0.55-1.02) H 07/11/18 06:20 Estimated GFR/1.73 m2 52.10 (mL/min/1.73m2) 07/11/18 06:20 Glucose 98 mg/dL (70-100) 07/11/18 06:20 Calcium 7.6 mg/dL (8.5-10.1) L 07/11/18 06:20 Magnesium 1.9 mg/dL (1.8-2.4) 07/11/18 06:20 Total Bilirubin 0.3 mg/dL (0.2-1.0) 07/09/18 06:13 AST 14 U/L (15-37) L 07/09/18 06:13 ALT 15 U/L (12-78) 07/09/18 06:13 Alkaline Phosphatase 57 U/L (46-116) 07/09/18 06:13 C-Reactive Protein 7.38 mg/dL (0.0-0.3) H 07/11/18 06:20 Total Protein 6.2 g/dL (6.4-8.2) L 07/09/18 06:13 Albumin 2.2 g/dL (3.4-5.0) L 07/09/18 06:13 Urine Color Yellow (Yellow) 07/10/18 13:00 Urine Clarity Cloudy 07/10/18 13:00 Urine pH 5.5 (5-8) 07/10/18 13:00 Ur Specific [place] 1.025 (1.005-1.025) 07/10/18 13:00 Urine Protein Negative mg/dL (Negative) 07/10/18 13:00 Urine Ketones Negative mg/dL (Negative) 07/10/18 13:00 Urine Blood Negative (Negative) 07/10/18 13:00 Urine Nitrite Positive (Negative) H 07/10/18 13:00 Urine Bilirubin Negative (Negative) 07/10/18 13:00 Urine Urobilinogen 0.2 EU/dL (Up TO 0.2) 07/10/18 13:00 Ur Leukocyte Esterase Trace (Negative) H 07/10/18 13:00 Urine RBC Not Applicable 07/10/18 13:00 Urine WBC Not Applicable 07/10/18 13:00 Ur Epithelial Cells Not Applicable 07/10/18 13:00 Urine Crystals HPF (Negative) 07/10/18 13:00 Urine Bacteria Not Applicable 07/10/18 13:00 Urine Mucus Not Applicable 07/10/18 13:00 Ur Culture Indicated? Yes 07/10/18 13:00 Urine Glucose Negative mg/dL (Negative) 07/10/18 13:00 Patient ABO/Rh O Positive 12/20/18 04:35 Antibody Screen Negative 07/08/18 04:35
[2018-07-11 15:38] VITALS: BP 142/66; PULSE 69; RESP 18; TEMP 36.6; O2SAT 96
[2018-07-11] MEDS: Insulin Aspart 300 UNITS/3 ML PEN SC (19:00)
[2018-07-11 19:20] VITALS: BP 163/81; PULSE 67; RESP 19; TEMP 36.7; O2SAT 99
[2018-07-11 23:56] VITALS: BP 120/63; PULSE 66; RESP 18; TEMP 37.1; O2SAT 97
[2018-07-12] MEDS: Insulin Aspart 300 UNITS/3 ML PEN SC ×4 (00:20→23:53)
[2018-07-12] MEDS: Normal Saline Flush 10 ML SYR IVP ×7 (00:21→18:00)
[2018-07-12] MEDS: LORazepam 2 MG/ML VIAL 0.25 MG IVP (00:25)
[2018-07-12] MEDS: CIPROFLOXACIN 400 MG/200 ML BAG 200 MG IVPB ×3 (00:31→23:53)
[2018-07-12] MEDS: MetroNIDAZOLE 500 MG/100 ML BAG 100 MG IVPB ×3 (01:58→17:37)
[2018-07-12] MEDS: Ketorolac 15 MG/ML VIAL IVP (02:10)
[2018-07-12] MEDS: Pantoprazole 40 MG VIAL IVP (06:52)
[2018-07-12 07:23] LABS: Abs Immature Grans 0.06 k/cumm (0.0-0.09); Absolute Basophil Count 0.01 k/cumm (0.0-0.2); Absolute Lymphocyte Count 0.95 k/cumm (1.2-3.4); Absolute Monocyte Count 0.71 k/cumm (0.11-0.7); Absolute Neutrophil Count 9.23 k/cumm (1.2-6.7); Basophils % 0.1; HCT 26.9 % (36.0-46.0); HGB 8.2 g/dL (12.0-15.5); Immature Grans % 0.5; Lymphocytes % 8.7; Mean Corp. HGB Concentration 30.5 g/dL (32.0-36.0); Mean Corpuscular Hemoglobin 28.1 pg (27.0-33.0); Mean Corpuscular Volume 92.1 fL (80-95); Monocytes % 6.5; Neutrophils % 84.2; Platelet Count 434 x1000/uL (130-400); RBC 2.92 m/cumm (4.00-5.20); RBC Distribution Width 15.4 % (11.7-14.6); White Blood Cell Count 10.96 k/cumm (4.4-10.8)
[2018-07-12 07:25] VITALS: BP 131/67; PULSE 61; RESP 17; TEMP 36.4; O2SAT 98
[2018-07-12 07:33] LABS: BUN 14 mg/dL (7-18); C-Reactive Protein 7.51 mg/dL (0.0-0.3); CREATININE 0.89 mg/dL (0.55-1.02); Calcium 7.8 mg/dL (8.5-10.1); Chloride 100 mmol/L (98-107); Glucose 114 mg/dL (70-100); Potassium 4.2 mmol/L (3.5-5.1); Sodium 133 mmol/L (136-145)
[2018-07-12 07:39] LABS: ALT 261 U/L (12-78); Albumin 2.2 g/dL (3.4-5.0); Alkaline Phosphatase 75 U/L (46-116); Bilirubin, Total 0.3 mg/dL (0.2-1.0); PHOSPHORUS 1.5 mg/dL (2.6-4.7)
[2018-07-12 07:45] LABS: INR 1.3 (1.0-3.5); Prothrombin Time 13.1 sec (9.3-11.0)
[2018-07-12] MEDS: methylPREDNISolone 4 MG TAB PO (07:46)
[2018-07-12] MEDS: Levothyroxine 100 MCG TAB PO (07:46)
[2018-07-12] MEDS: Furosemide 20 MG TAB PO (07:46)
[2018-07-12 08:02] LABS: ESR 26 MM/HR (0-30)
--- NOTE | 2018-07-12 08:40 | DI.RAD_ITS ---
SYMPTOM/DIAGNOSIS: F/U SBO ABDOMEN: 07/12 Three views were obtained. In comparison with yesterday's CT examination note is again made of multiple dilated loops of small bowel in the mid abdomen, the appearance is similar to the appearance on CT on yesterday's study. No gross free intraperitoneal air is seen. The colon is essentially collapsed and contains a small quantity of contrast material. Surgical sutures noted overlying the left lower quadrant. CONCLUSION: Findings consistent with ileus vs small bowel obstruction, appropriate follow up studies suggested.
--- NOTE | 2018-07-12 09:51 | PT.INDS ---
Date of service: 07/12/18 Time of Service: 09:51 PT Notes Inpatient Physical Therapy Discharge Summary Dates: 07/12/18 Dates of Service: 07/11/18-07/12/18 SUBJECTIVE: Pt lying in bed visiting with , they report they walked laps around the hallway last night with the walker. Pt states she feels she is doign well and is wondering when she will be able to go home. OBJECTIVE: BED MOBILITY/TRANSFERS: Supine-sit independent Sit-supine independent Sit-stand independent with FWW Stand-sit independent Bed-Chair independent with FWW to bathroom toilet Chair-bed independent with FWW back to bed from bathroom GAIT: independent with FWW 400ft, steady step through gait, no loss of balance. Pt uses a 4WW in home setting STAIRS: up/down 4 steps with railing, independent BALANCE: Static sitting: normal Dynamic sitting: normal Static standing: fair Dynamic standing: fair ASSESSMENT: Pt mobilizing independently with transfers and gait with FWW. She is at functional level to return to home setting, discharge PT Services. GOALS Goals X1 week 1. Supine-Sit: supervision 2. Sit-Supine: supervision 3. Sit-Stand: supervision with FWW 4. Stand-Sit: supervision with FWW 5. Bed-Chair: supervision with FWW 6. Chair-Bed: supervision with FWW 7. Gait: greater than or equal to 200 feet with FWW and SBA 8. Stairs: 4 up and down with supervision Pt met goals 1-8 DISCHARGE RECOMMENDATIONS: D/C PT pt has met goals, discharge to home TREATMENT CODE/TIME: 26min TAx2 9:45 G Codes in the area mobility of walking and moving around:projected status GP [id number]. Discharge status (if discharging) GP [id number] Katina Razo PT.
[2018-07-12] MEDS: Enoxaparin 40 MG/0.4 ML SYR SC (10:08)
--- NOTE | 2018-07-12 10:08 | W.PM.PROGNOT ---
Date of Service Date of service: 07/12/18 Time of Service: 10:08 Assessment and Plan (1) UTI (urinary tract infection): Current visit: Yes Status: Acute Culture shows Klebsiella pne. sensitive to cipro (2) Chronic adrenal insufficiency: Current visit: Yes Status: Chronic Started on stress dose taper suspect that this is main cause of ileus/n/v (3) Malnutrition following gastrointestinal surgery: Current visit: Yes Status: Acute TPN Started, ileus appears to be resolving will continue TPN until PO intake has improved, the wean offf (4) Leukocytosis: Current visit: Yes Status: Acute Improving with trx UTI, may expect slight increase due to steriods Qualifiers: Leukocytosis type: bandemia Qualified Code(s): D72.825 - Bandemia (5) Postoperative wound hematoma: Current visit: Yes Status: Acute Resolved will start wound vac therapy tomorrow (6) Postoperative ileus: Current visit: Yes Status: Acute Resolving, most likely cause adrenal insufficency, advance diet to full liquids. (7) Nausea & vomiting: Current visit: Yes Status: Acute Resolved Qualifiers: Vomiting type: bilious vomiting Vomiting Intractability: Qualified Code(s): R11.14 - Bilious vomiting (8) Lower gastrointestinal bleed: Current visit: Yes Status: Acute Resolved (9) Hypomagnesemia: Current visit: No Status: Acute Resolved (10) Hypokalemia: Current visit: No Status: Acute Resolved Subjective Patient reports: no new complaints, pain is less, voiding w/o difficulty, flatus and diarrhea; denies nausea and vomiting Interval history since last seen: Difficulty sleeping overnight, due to frequent bathroom trips. Exam Const General: cooperative and no acute distress Nutritional Appearance: obese Orientation: alert, awake and oriented x3 HENMT Head: normal to inspection, normocephalic and atraumatic Ears: hearing grossly normal bilaterally General nose exam: external nose normal Face and sinus: normal facial exam Mouth: oral mucosae normal Eyes General: appearance normal, both eyes and all related structures Periorbital: periorbital findings normal Sclera: sclerae normal Pupils: PERRL EOM: EOM intact bilaterally Neck Neck: full ROM, trachea midline and supple Chest Chest: normal inspection of the chest Resp Effort & Inspection: normal respiratory effort Auscultation: clear to auscultation bilaterally Cardio Rate: regular rate Rhythm: regular rhythm Heart Sounds: S1 normal and S2 normal GI Inspection: non-distended, incision (Wound pink w/o infection) and large pannus Palpation: soft, no guarding and tender (TTP over incision) Rectal Exam - female: deferred Abdomen image: 1. incision open on lower pole with wet to dry packing, Skin General skin exam: no rashes or lesions noted and turgor normal Hair: general thinning Neuro General: moves all extremities, no focal motor deficits and CN's II-XI intact bilaterally Extrem General: full ROM and normal capillary refill Psych Appearance: grossly normal Mental Status: mental status grossly normal Judgment: judgment good Objective Objective Clinical Data: Vital Signs Temperature 36.4 C L 07/12/18 07:25 Temperature Source Tympanic 07/12/18 07:25 Pulse 61 07/12/18 07:25 Pulse Rhythm Regular 07/12/18 07:40 Respiratory Rate 17 07/12/18 07:25 Respiratory Effort Non-Labored 07/12/18 07:40 Respiratory Depth Normal 07/12/18 07:40 Respiratory Pattern Normal 07/12/18 07:40 Blood Pressure 131/67 07/12/18 07:25 Pulse Oximetry 98 07/12/18 07:25 Oxygen Delivery Method Room Air 07/12/18 07:25 Oxygen Flow Rate 0 07/12/18 07:25 Pain Level 4 07/12/18 03:10 Comment 07/08/18 02:37 Intake & Output 07/11/18 07/12/18 07/12/18 18:59 06:59 18:59 Intake Total 1300 / 2779.5 1479.5 / 2779.5 60 / 60 Output Total 1100 / 2900 1800 / 2900 Balance 200 / -120.5 -320.5 / -120.5 60 / 60 Intake: IV 1300 / 2779.5 1479.5 / 2779.5 Oral 60 / 60 Output: Urine 1100 / 2900 1800 / 2900 Other: Urine Color Yellow Yellow Urine Appearance Clear Clear Clear Urine Odor Normal None Comment voiding toilet urine and bm mixed. Stool Size Small Small Stool Characteristics Liquid Soft Voiding Methods Toilet Toilet Laboratory Results - last 24 hr 07/12/18 07/12/18 07/12/18 06:38 06:38 06:38 WBC 10.96 H RBC 2.92 L Hgb 8.2 L Hct 26.9 L MCV 92.1 MCH 28.1 MCHC 30.5 L RDW 15.4 H Plt Count 434 H MPV 10.0 Immature Gran % 0.5 Neutrophils % 84.2 Lymphocytes % 8.7 Monocytes % 6.5 Eosinophils % 0.0 Basophils % 0.1 Absolute Neutrophils 9.23 H Absolute Lymphocytes 0.95 L Absolute Monocytes 0.71 H Absolute Eosinophils 0.00 Absolute Basophils 0.01 ESR 26 PT INR Sodium 133 L Potassium 4.2 Chloride 100 Carbon Dioxide 26.0 Anion Gap 7.0 BUN 14 Creatinine 0.89 Estimated GFR/1.73 m2 >= 60.00 Glucose 114 H Calcium 7.8 L Phosphorus 1.5 L Magnesium 2.0 Total Bilirubin 0.3 ALT 261 H Alkaline Phosphatase C-Reactive Protein 7.51 H Albumin 07/12/18 07/12/18 06:38 06:38 WBC RBC Hgb Hct MCV MCH MCHC RDW Plt Count MPV Immature Gran % Neutrophils % Lymphocytes % Monocytes % Eosinophils % Basophils % Absolute Neutrophils Absolute Lymphocytes Absolute Monocytes Absolute Eosinophils Absolute Basophils ESR PT 13.1 H INR 1.3 Sodium Potassium Chloride Carbon Dioxide Anion Gap BUN Creatinine Estimated GFR/1.73 m2 Glucose Calcium Phosphorus Magnesium Total Bilirubin ALT Alkaline Phosphatase 75 C-Reactive Protein Albumin 2.2 L
[2018-07-12] MEDS: Hydrocortisone SOD SUC. 100 MG VIAL IVP (10:09)
--- NOTE | 2018-07-12 10:18 | PDOC.CMPRO ---
- If Service Date Differs Date of service: 07/12/18 Time of Service: 10:18 Care Management Progress Note S/O: Amanda was sitting in bed with her , Ed, at bedside, when CM visited this morning. Pat reports that she is having pain but is unable to pinpoint where that pain is. She continues to have loose stools and reports that she is exhausted, as she has not been sleeping. Pat continues to receive IV antibiotics, clinimix 85ml/hr, intralipids IVPB, and is NPO. Dr. Rivas met with the patient, family, and CM and changed Amanda's dressings. He has started her on a clear liquid diet for breakfast and lunch and will advance her diet at dinner if she is tolerating clears well. Pat will have an order for ambien placed as well. A: 77 year old female admitted to [facility] 07/08/18 for GI Bleed P: Pat will discharge when medically ready per MD. Anticipate patient will discharge with no services and follow up with surgical services. CM will continue to offer support to patient and care team regarding discharge planning and disposition.
--- NOTE | 2018-07-12 11:06 | CMPROGNOTE_ITS ---
- If Service Date Differs Date of service: 07/12/18 Time of Service: 10:18 Care Management Progress Note S/O: Amanda was sitting in bed with her , Ed, at bedside, when CM visited this morning. Pat reports that she is having pain but is unable to pinpoint where that pain is. She continues to have loose stools and reports that she is exhausted, as she has not been sleeping. Pat continues to receive IV antibiotics, clinimix 85ml/hr, intralipids IVPB, and is NPO. Dr. Rivas met with the patient, family, and CM and changed Amanda's dressings. He has started her on a clear liquid diet for breakfast and lunch and will advance her diet at dinner if she is tolerating clears well. Pat will have an order for ambien placed as well. A: 77 year old female admitted to [facility] 07/08/18 for GI Bleed P: Pat will discharge when medically ready per MD. Anticipate patient will discharge with no services and follow up with surgical services. CM will continue to offer support to patient and care team regarding discharge planning and disposition.
[2018-07-12] MEDS: Hydrocortisone SOD SUC. 100 MG VIAL 50 MG IVP ×3 (11:43→23:53)
--- NOTE | 2018-07-12 13:05 | DI.US_ITS ---
SYMPTOMS/DIAGNOSIS: GI BLEED, ? DVT DUPLEX VENOUS ULTRASOUND, BOTH LOWER EXTREMITIES: Duplex evaluation of the deep venous system was performed according to the usual protocol. The deep veins are freely compressible throughout to the level of the popliteal veins. There is normal Doppler flow visible throughout and there is excellent flow augmentation with manual calf compression. CONCLUSION: No evidence of deep venous thrombosis.
--- NOTE | 2018-07-12 14:04 | PGE_ITS ---
Date of Service Date of service: 07/12/18 Time of Service: 14:02 Assessment and Plan (1) SIRS (systemic inflammatory response syndrome): Current visit: Yes Status: Resolved No longer has fever, leucocytosis, or bandemia - however, is becoming hypothermic. Acute abdominal series continues to demonstrate SBO/Ileus, clinically ileus being more likely. Additional cause for SIRS could be adrenal insufficiency and/or UTI. Continue empiric cipro and flagyl. No signs of peritonitis on my exam. C. Diff less likely. Stool studies pending. (2) UTI (urinary tract infection): Current visit: Yes Status: Acute Urine C&S (done on zosyn) with no growth to date. (3) Malnutrition following gastrointestinal surgery: Current visit: Yes Status: Acute Continue TPN, advancing PO diet as tolerated. (4) Lower gastrointestinal bleed: Current visit: Yes Status: Acute H/H is stable, seems to not be clinically significant. Has not required any blood transfusions on this admission. Continue to monitor H/H. (5) S/P exploratory laparotomy: Current visit: No Status: Acute Defer to primary team (6) Postoperative ileus: Current visit: Yes Status: Acute Defer to primary team (7) Chronic adrenal insufficiency: Current visit: Yes Status: Chronic With an acute component as evidenced by hypothermia, hyponatremia, BG's on the lower side. Stress dose hydrocortisone initiated. (8) PMR (polymyalgia rheumatica): Current visit: No Status: Chronic Continue steroids. Agree with holding methotrexate. Subjective Interval history since last seen: Ms Manuel is feeling better today. Her main complaint is that she hasn't slept. She takes ambien every day at home and requests to have it tonight. She denies dizziness, chest pain, shortness of breath, nausea, vomiting, pain. She does note her legs have become swollen. She agrees to have an ultrasound of her legs to make she does not have blood clots. Exam Narrative Exam Narrative: General: Very pleasant elderly female, appears less pale today, sitting in a chair, conversant, in a better mood. Neurological: A&Ox3, no focal deficits Psychiatric: appropriate speech pattern/content Skin: lower portion of the abdominal wound is dressed - c/d/i. Upper portion healing well, now without maame, no drainge or erythema. HEENT: EOMI, MMM, clear oropharynx, no JVD, no goiter Cardiovascular: RRR, no m/r/g Lungs: CTAB Gastrointestinal: abdomen is soft; + Bowel sounds, nondistended, nontender; wound as above Extremities: 1 + edema BLE's, symmetric Objective Objective Clinical Data: Abnormal lab results 07/12/18 07/12/18 07/12/18 Range/Units 06:38 06:38 06:38 WBC 10.96 H (4.4-10.8) k/cumm RBC 2.92 L (4.00-5.20) m/cumm Hgb 8.2 L (12.0-15.5) g/dL Hct 26.9 L (36.0-46.0) % MCHC 30.5 L (32.0-36.0) g/dL RDW 15.4 H (11.7-14.6) % Plt Count 434 H (130-400) x1000/uL Absolute Neutrophils 9.23 H (1.2-6.7) k/cumm Absolute Lymphocytes 0.95 L (1.2-3.4) k/cumm Absolute Monocytes 0.71 H (0.11-0.7) k/cumm PT (9.3-11.0) sec Sodium 133 L (136-145) mmol/L Glucose 114 H (70-100) mg/dL Calcium 7.8 L (8.5-10.1) mg/dL Phosphorus 1.5 L (2.6-4.7) mg/dL ALT 261 H (12-78) U/L C-Reactive Protein 7.51 H (0.0-0.3) mg/dL Albumin (3.4-5.0) g/dL 07/12/18 07/12/18 Range/Units 06:38 06:38 WBC (4.4-10.8) k/cumm RBC (4.00-5.20) m/cumm Hgb (12.0-15.5) g/dL Hct (36.0-46.0) % MCHC (32.0-36.0) g/dL RDW (11.7-14.6) % Plt Count (130-400) x1000/uL Absolute Neutrophils (1.2-6.7) k/cumm Absolute Lymphocytes (1.2-3.4) k/cumm Absolute Monocytes (0.11-0.7) k/cumm PT 13.1 H (9.3-11.0) sec Sodium (136-145) mmol/L Glucose (70-100) mg/dL Calcium (8.5-10.1) mg/dL Phosphorus (2.6-4.7) mg/dL ALT (12-78) U/L C-Reactive Protein (0.0-0.3) mg/dL Albumin 2.2 L (3.4-5.0) g/dL Vital Signs Temperature 36.4 C L 07/12/18 07:25 Temperature Source Tympanic 07/12/18 07:25 Pulse 61 07/12/18 07:25 Pulse Rhythm Regular 07/12/18 07:40 Respiratory Rate 17 07/12/18 07:25 Respiratory Effort Non-Labored 07/12/18 07:40 Respiratory Depth Normal 07/12/18 07:40 Respiratory Pattern Normal 07/12/18 07:40 Blood Pressure 131/67 07/12/18 07:25 Pulse Oximetry 98 07/12/18 07:25 Oxygen Delivery Method Room Air 07/12/18 07:25 Oxygen Flow Rate 0 07/12/18 07:25 Pain Level 4 07/12/18 03:10 Comment 07/08/18 02:37 Intake & Output 07/11/18 07/12/18 07/12/18 23:59 11:59 23:59 Intake Total 1400 / 2266 2104.5 / 2344.5 240 / 2344.5 Output Total 1300 / 1700 1750 / 2300 550 / 2300 Balance 100 / 566 354.5 / 44.5 -310 / 44.5 Intake: IV 1400 / 2266 1379.5 / 1379.5 Oral 725 / 965 240 / 965 Output: Urine 1300 / 1700 1750 / 2175 425 / 2175 Stool 125 / 125 Other: Urine Color Yellow Yellow Yellow Urine Appearance Clear Clear Urine Odor Normal None Comment urine and bm mixed. very soft green stool Stool Size Small Small Stool Characteristics Soft Soft Soft Formed Green Green Brown Voiding Methods Toilet Toilet Toilet Laboratory Results WBC 10.96 k/cumm (4.4-10.8) H 07/12/18 06:38 RBC 2.92 m/cumm (4.00-5.20) L 07/12/18 06:38 Hgb 8.2 g/dL (12.0-15.5) L 07/12/18 06:38 Hct 26.9 % (36.0-46.0) L 07/12/18 06:38 MCV 92.1 fL (80-95) 07/12/18 06:38 MCH 28.1 pg (27.0-33.0) 07/12/18 06:38 MCHC 30.5 g/dL (32.0-36.0) L 07/12/18 06:38 RDW 15.4 % (11.7-14.6) H 07/12/18 06:38 Plt Count 434 x1000/uL (130-400) H 07/12/18 06:38 MPV 10.0 fL (8.0-11.0) 07/12/18 06:38 Immature Gran % 0.5 07/12/18 06:38 Neutrophils % 84.2 07/12/18 06:38 Lymphocytes % 8.7 07/12/18 06:38 Monocytes % 6.5 07/12/18 06:38 Eosinophils % 0.0 07/12/18 06:38 Basophils % 0.1 07/12/18 06:38 Absolute Neutrophils 9.23 k/cumm (1.2-6.7) H 07/12/18 06:38 Band Neutrophils 18.0 % 07/11/18 06:20 Absolute Lymphocytes 0.95 k/cumm (1.2-3.4) L 07/12/18 06:38 Absolute Monocytes 0.71 k/cumm (0.11-0.7) H 07/12/18 06:38 Absolute Eosinophils 0.00 k/cumm (0.0-0.7) 07/12/18 06:38 Absolute Basophils 0.01 k/cumm (0.0-0.2) 07/12/18 06:38 Differential Comment Manual differential 07/11/18 06:20 Atypical Lymphocytes 5 07/09/18 06:35 RBC Morphology See below 07/11/18 06:20 Polychromasia Present 07/11/18 06:20 Hypochromasia 1+ 07/11/18 06:20 Anisocytosis 1+ 07/11/18 06:20 ESR 26 MM/HR (0-30) 07/12/18 06:38 PT 13.1 sec (9.3-11.0) H 07/12/18 06:38 INR 1.3 (1.0-3.5) 07/12/18 06:38 APTT 21.7 sec (21.0-31.4) 07/08/18 03:15 Sodium 133 mmol/L (136-145) L 07/12/18 06:38 Potassium 4.2 mmol/L (3.5-5.1) 07/12/18 06:38 Chloride 100 mmol/L (98-107) 07/12/18 06:38 Carbon Dioxide 26.0 mmol/L (21.0-32.0) 07/12/18 06:38 Anion Gap 7.0 mmol/L (3-11) 07/12/18 06:38 BUN 14 mg/dL (7-18) 07/12/18 06:38 Creatinine 0.89 mg/dL (0.55-1.02) 07/12/18 06:38 Estimated GFR/1.73 m2 >= 60.00 (mL/min/1.73m2) 07/12/18 06:38 Glucose 114 mg/dL (70-100) H 07/12/18 06:38 Calcium 7.8 mg/dL (8.5-10.1) L 07/12/18 06:38 Phosphorus 1.5 mg/dL (2.6-4.7) L 07/12/18 06:38 Magnesium 2.0 mg/dL (1.8-2.4) 07/12/18 06:38 Total Bilirubin 0.3 mg/dL (0.2-1.0) 07/12/18 06:38 AST 14 U/L (15-37) L 07/09/18 06:13 ALT 261 U/L (12-78) H 07/12/18 06:38 Alkaline Phosphatase 75 U/L (46-116) 07/12/18 06:38 C-Reactive Protein 7.51 mg/dL (0.0-0.3) H 07/12/18 06:38 Total Protein 6.2 g/dL (6.4-8.2) L 07/09/18 06:13 Albumin 2.2 g/dL (3.4-5.0) L 07/12/18 06:38 Urine Color Yellow (Yellow) 07/10/18 13:00 Urine Clarity Cloudy 07/10/18 13:00 Urine pH 5.5 (5-8) 07/10/18 13:00 Ur Specific [place] 1.025 (1.005-1.025) 07/10/18 13:00 Urine Protein Negative mg/dL (Negative) 07/10/18 13:00 Urine Ketones Negative mg/dL (Negative) 07/10/18 13:00 Urine Blood Negative (Negative) 07/10/18 13:00 Urine Nitrite Positive (Negative) H 07/10/18 13:00 Urine Bilirubin Negative (Negative) 07/10/18 13:00 Urine Urobilinogen 0.2 EU/dL (Up TO 0.2) 07/10/18 13:00 Ur Leukocyte Esterase Trace (Negative) H 07/10/18 13:00 Urine RBC Not Applicable 07/10/18 13:00 Urine WBC Not Applicable 07/10/18 13:00 Ur Epithelial Cells Not Applicable 07/10/18 13:00 Urine Crystals HPF (Negative) 07/10/18 13:00 Urine Bacteria Not Applicable 07/10/18 13:00 Urine Mucus Not Applicable 07/10/18 13:00 Ur Culture Indicated? Yes 07/10/18 13:00 Urine Glucose Negative mg/dL (Negative) 07/10/18 13:00 Patient ABO/Rh O Positive 07/08/18 04:35 Antibody Screen Negative 07/08/18 04:35
[2018-07-12 16:31] VITALS: BP 152/71; PULSE 63; RESP 19; TEMP 36.4; O2SAT 97
[2018-07-12] MEDS: Zolpidem 6.25 MG TABCR PO (21:32)
[2018-07-12 23:50] VITALS: BP 133/63; PULSE 67; RESP 19; TEMP 36.5; O2SAT 97
[2018-07-13] MEDS: MetroNIDAZOLE 500 MG/100 ML BAG 100 MG IVPB (01:36)
[2018-07-13] MEDS: Hydrocortisone SOD SUC. 100 MG VIAL 50 MG IVP (06:16)
[2018-07-13] MEDS: Normal Saline Flush 10 ML SYR IVP ×6 (06:17→16:56)
[2018-07-13] MEDS: Pantoprazole 40 MG VIAL IVP (06:17)
[2018-07-13] MEDS: Insulin Aspart 300 UNITS/3 ML PEN SC ×4 (06:23→23:58)
[2018-07-13 06:53] LABS: Abs Immature Grans 0.16 k/cumm (0.0-0.09); HCT 25.5 % (36.0-46.0); HGB 7.8 g/dL (12.0-15.5); Mean Corp. HGB Concentration 30.6 g/dL (32.0-36.0); Mean Corpuscular Hemoglobin 28.4 pg (27.0-33.0); Mean Corpuscular Volume 92.7 fL (80-95); Mean Platelet Volume 10.1 fL (8.0-11.0); Platelet Count 407 x1000/uL (130-400); RBC 2.75 m/cumm (4.00-5.20); RBC Distribution Width 15.3 % (11.7-14.6); White Blood Cell Count 10.23 k/cumm (4.4-10.8)
[2018-07-13 07:00] LABS: Anion Gap 5.8 mmol/L (3-11); BUN 19 mg/dL (7-18); CO2 26.2 mmol/L (21.0-32.0); CREATININE 0.79 mg/dL (0.55-1.02); Calcium 8.1 mg/dL (8.5-10.1); Chloride 105 mmol/L (98-107); Glucose 140 mg/dL (70-100); Magnesium 2.2 mg/dL (1.8-2.4); Potassium 4.4 mmol/L (3.5-5.1); Sodium 137 mmol/L (136-145)
[2018-07-13 07:03] LABS: PHOSPHORUS 1.5 mg/dL (2.6-4.7)
[2018-07-13 07:24] LABS: Absolute Lymphocyte Count 1.02 k/cumm (1.2-3.4); Absolute Monocyte Count 0.41 k/cumm (0.11-0.7); Atypical Lymphocytes % 3
[2018-07-13 07:25] LABS: Anisocytosis 1+; Diff Comment Manual Differential; Hypochromasia 1+; Polychromasia Present
--- NOTE | 2018-07-13 07:30 | DI.RAD_ITS ---
SYMPTOMS/DIAGNOSIS: ILEUS, GI BLEED PA CHEST: The heart is not enlarged. The lungs are clear. CONCLUSION: No evidence of acute disease. ABDOMEN: No free intraperitoneal air is seen. Mild small bowel distention noted, no gross interval change in appearance in comparison with examination of July 12.
--- NOTE | 2018-07-13 07:39 | PDOC.CMPRO ---
- If Service Date Differs Date of service: 07/13/18 Time of Service: 07:39 Care Management Progress Note S/O: Pat continues to cope with support. No change in status today she continues on IV antibiotics, she is receiving TPN, and started on hydrocortisone. She remains acute with continued monitoring of labs. Hbg and hct are down today compared to yesterday. CM to continue to provide support to patient discharge planning. A:77 year old female admitted to [facility] 07/08/18 for GI Bleed P: Pat will discharge when medically ready per MD. Anticipate patient will discharge with no services and follow up with surgical services. CM will continue to offer support to patient and care team regarding discharge planning and disposition.
[2018-07-13] MEDS: Furosemide 20 MG TAB PO (08:13)
[2018-07-13] MEDS: Levothyroxine 100 MCG TAB PO (08:14)
[2018-07-13 08:25] VITALS: BP 144/67; PULSE 79; RESP 18; TEMP 36.4; O2SAT 97
[2018-07-13] MEDS: Furosemide 20 MG/2 ML VIAL IVP ×2 (09:25→16:57)
[2018-07-13] MEDS: Enoxaparin 40 MG/0.4 ML SYR SC (09:25)
--- NOTE | 2018-07-13 10:22 | DI.VRAD_ITS ---
EXAM: XR Abdomen, 2 Views EXAM DATE/TIME: 07/12/2018 1:46 PM CLINICAL HISTORY: 77 years old, female; Pain; Abdominal pain; Other: Ileus; Prior surgery; Surgery date: Post-operative (0-2 days); Surgery type: Ileus S/P colonoscopy TECHNIQUE: Frontal view of the abdomen/pelvis with upright view of the abdomen. COMPARISON: XR ABDOMEN 06/28/2018 FINDINGS: Gastrointestinal tract: There are some gas-filled distended small bowel loops present. The stomach and colon are not distended. There is residual contrast in the rectal lumen. Intraperitoneal space: No pneumoperitoneum identified. There is however extraluminal contrast from a prior perforation. Bones/joints: No acute osseous abnormality. IMPRESSION: 1. Mild gaseous distention of small bowel which may be due to bowel obstruction or an ileus. 2. Extraluminal contrast from a prior perforation. Dictated and Authenticated by: Bernardo Pham MD. Ordering:VERNON Pepe MD
[2018-07-13 10:46] LABS: Campylobacter PCR SEE COMMENTS; Salmonella PCR SEE COMMENTS; Shiga Toxin PCR SEE COMMENTS; Shigella/Enteroinvasive Ecoli SEE COMMENTS
[2018-07-13] MEDS: HYDROmorphone 2 MG/ML VIAL IVP (11:08)
[2018-07-13 11:22] VITALS: BP 145/65; PULSE 79; RESP 16; TEMP 37.1; O2SAT 96
[2018-07-13] MEDS: Hydrocortisone SOD SUC. 100 MG VIAL 25 MG IVP ×2 (12:28→19:06)
[2018-07-13] MEDS: CIPROFLOXACIN 400 MG/200 ML BAG 200 MG IVPB (12:28)
[2018-07-13] MEDS: Normal Saline 500 ML IV (12:43)
[2018-07-13] MEDS: Ketorolac 15 MG/ML VIAL IVP (14:03)
--- NOTE | 2018-07-13 14:20 | PGE_ITS ---
Date of Service Date of service: 07/13/18 Time of Service: 07:30 Assessment and Plan (1) UTI (urinary tract infection): Current visit: Yes Status: Acute On cipro will stop at time of discharge, WBC normal (2) Chronic adrenal insufficiency: Current visit: Yes Status: Chronic Tapered dose of steriods, doing well. Anticipate discharge if no changes from current health trend. (3) Malnutrition following gastrointestinal surgery: Current visit: Yes Status: Acute TPN to continue today, half rate tomorrow, and infuse until finished (4) Leukocytosis: Current visit: Yes Status: Acute Resolved Qualifiers: Leukocytosis type: bandemia Qualified Code(s): D72.825 - Bandemia (5) Postoperative wound hematoma: Current visit: Yes Status: Acute Wound without signs of infection, will obtain measurements and place wound vac, prepare for home therapy (6) Anemia: Current visit: No Status: Acute Suspect that this is dilutional and iatrogenic. Lasix has been restarted. Qualifiers: Anemia type: iron deficiency Iron deficiency anemia type: other iron deficiency Vitamin B12 deficiency anemia type: Folate deficiency anemia type: Bone marrow failure anemia type: Hemolytic anemia type: Other causes of anemia: Chronic kidney disease stage: Qualified Code(s): D50.8 - Other iron deficiency anemias Subjective Patient reports: no new complaints, feels better, tolerating a regular diet, voiding w/o difficulty, flatus, bowel movement and afebrile; denies nausea and vomiting Interval history since last seen: Tolerating diet, feels much, better, ambulating in the halls. Exam Const General: cooperative and no acute distress Nutritional Appearance: obese Orientation: alert, awake and oriented x3 Resp Effort & Inspection: normal respiratory effort Auscultation: clear to auscultation bilaterally Cardio Rate: regular rate Rhythm: regular rhythm Heart Sounds: S1 normal and S2 normal GI Inspection: non-distended, incision (Wound pink w/o infection) and large pannus Palpation: soft, no guarding and tender (TTP over incision) Rectal Exam - female: deferred Skin General skin exam: no rashes or lesions noted and turgor normal Hair: general thinning Extrem General: full ROM and normal capillary refill Psych Appearance: grossly normal Mental Status: mental status grossly normal Judgment: judgment good Objective Objective Clinical Data: Vital Signs Temperature 37.1 C 07/13/18 11:22 Temperature Source Skin 07/13/18 11:22 Pulse 79 07/13/18 11:22 Pulse Rhythm Regular 07/13/18 08:05 Respiratory Rate 16 07/13/18 11:22 Respiratory Effort Non-Labored 07/13/18 08:05 Respiratory Depth Normal 07/13/18 08:05 Respiratory Pattern Normal 07/13/18 08:05 Blood Pressure 145/65 H 07/13/18 11:22 Pulse Oximetry 96 07/13/18 11:22 Oxygen Delivery Method Room Air 07/13/18 11:22 Oxygen Flow Rate 0 07/13/18 11:22 Pain Level 8 07/13/18 14:03 Comment 07/13/18 11:22 Intake & Output 07/12/18 07/13/18 07/13/18 18:59 06:59 18:59 Intake Total 2635 / 4586 1951 / 4586 680 / 680 Output Total 1100 / 2100 1000 / 2100 1200 / 1200 Balance 1535 / 2486 951 / 2486 -520 / -520 Intake: IV 1670 / 3021 1351 / 3021 200 / 200 Oral 965 / 1565 600 / 1565 480 / 480 Output: Urine 975 / 1974 1000 / 1975 1200 / 1200 Stool 125 / 125 Other: Urine Color Yellow Pale Pale Urine Appearance Clear Clear Clear Urine Odor None Comment very soft green stool pt passed urine in the tiolet independently voided into toilet Stool Size Small Small Small Stool Characteristics Soft Soft Formed Green Brown Brown Voiding Methods Toilet Toilet Toilet Laboratory Results WBC 10.23 k/cumm (4.4-10.8) 07/13/18 06:10 RBC 2.75 m/cumm (4.00-5.20) L 07/13/18 06:10 Hgb 7.8 g/dL (12.0-15.5) L 07/13/18 06:10 Hct 25.5 % (36.0-46.0) L 07/13/18 06:10 MCV 92.7 fL (80-95) 07/13/18 06:10 MCH 28.4 pg (27.0-33.0) 07/13/18 06:10 MCHC 30.6 g/dL (32.0-36.0) L 07/13/18 06:10 RDW 15.3 % (11.7-14.6) H 07/13/18 06:10 Plt Count 407 x1000/uL (130-400) H 07/13/18 06:10 MPV 10.1 fL (8.0-11.0) 07/13/18 06:10 Immature Gran % See Differential 07/13/18 06:10 Neutrophils % 85.0 07/13/18 06:10 Lymphocytes % 7.0 07/13/18 06:10 Monocytes % 4.0 07/13/18 06:10 Eosinophils % 0.0 07/13/18 06:10 Basophils % 0.0 07/13/18 06:10 Absolute Neutrophils 8.70 k/cumm (1.2-6.7) H 07/13/18 06:10 Band Neutrophils 18.0 % 07/11/18 06:20 Absolute Lymphocytes 1.02 k/cumm (1.2-3.4) L 07/13/18 06:10 Absolute Monocytes 0.41 k/cumm (0.11-0.7) 07/13/18 06:10 Absolute Eosinophils 0.00 k/cumm (0.0-0.7) 07/13/18 06:10 Absolute Basophils 0.00 k/cumm (0.0-0.2) 07/13/18 06:10 Metamyelocytes 1.0 % 07/13/18 06:10 Differential Comment Manual differential 07/13/18 06:10 Atypical Lymphocytes 3 07/13/18 06:10 RBC Morphology See below 07/13/18 06:10 Polychromasia Present 07/13/18 06:10 Hypochromasia 1+ 07/13/18 06:10 Anisocytosis 1+ 07/13/18 06:10 ESR 26 MM/HR (0-30) 07/12/18 06:38 PT 13.1 sec (9.3-11.0) H 07/12/18 06:38 INR 1.3 (1.0-3.5) 07/12/18 06:38 APTT 21.7 sec (21.0-31.4) 07/08/18 03:15 Sodium 137 mmol/L (136-145) 07/13/18 06:10 Potassium 4.4 mmol/L (3.5-5.1) 07/13/18 06:10 Chloride 105 mmol/L (98-107) 07/13/18 06:10 Carbon Dioxide 26.2 mmol/L (21.0-32.0) 07/13/18 06:10 Anion Gap 5.8 mmol/L (3-11) 07/13/18 06:10 BUN 19 mg/dL (7-18) H 07/13/18 06:10 Creatinine 0.79 mg/dL (0.55-1.02) 07/13/18 06:10 Estimated GFR/1.73 m2 >= 60.00 (mL/min/1.73m2) 07/13/18 06:10 Glucose 140 mg/dL (70-100) H 07/13/18 06:10 Calcium 8.1 mg/dL (8.5-10.1) L 07/13/18 06:10 Phosphorus 1.5 mg/dL (2.6-4.7) L 07/13/18 06:10 Magnesium 2.2 mg/dL (1.8-2.4) 07/13/18 06:10 Total Bilirubin 0.3 mg/dL (0.2-1.0) 07/12/18 06:38 AST 14 U/L (15-37) L 07/09/18 06:13 ALT 261 U/L (12-78) H 07/12/18 06:38 Alkaline Phosphatase 75 U/L (46-116) 07/12/18 06:38 C-Reactive Protein 7.51 mg/dL (0.0-0.3) H 07/12/18 06:38 Total Protein 6.2 g/dL (6.4-8.2) L 07/09/18 06:13 Albumin 2.2 g/dL (3.4-5.0) L 07/12/18 06:38 Urine Color Yellow (Yellow) 07/10/18 13:00 Urine Clarity Cloudy 07/10/18 13:00 Urine pH 5.5 (5-8) 07/10/18 13:00 Ur Specific [place] 1.025 (1.005-1.025) 07/10/18 13:00 Urine Protein Negative mg/dL (Negative) 07/10/18 13:00 Urine Ketones Negative mg/dL (Negative) 07/10/18 13:00 Urine Blood Negative (Negative) 07/10/18 13:00 Urine Nitrite Positive (Negative) H 07/10/18 13:00 Urine Bilirubin Negative (Negative) 07/10/18 13:00 Urine Urobilinogen 0.2 EU/dL (Up TO 0.2) 07/10/18 13:00 Ur Leukocyte Esterase Trace (Negative) H 07/10/18 13:00 Urine RBC Not Applicable 07/10/18 13:00 Urine WBC Not Applicable 07/10/18 13:00 Ur Epithelial Cells Not Applicable 07/10/18 13:00 Urine Crystals HPF (Negative) 07/10/18 13:00 Urine Bacteria Not Applicable 07/10/18 13:00 Urine Mucus Not Applicable 07/10/18 13:00 Ur Culture Indicated? Yes 07/10/18 13:00 Urine Glucose Negative mg/dL (Negative) 07/10/18 13:00 Patient ABO/Rh O Positive 07/08/18 04:35 Antibody Screen Negative 07/08/18 04:35
[2018-07-13 15:49] VITALS: BP 137/67; PULSE 63; RESP 18; TEMP 36.3; O2SAT 99
--- NOTE | 2018-07-13 16:22 | W.PM.PROGNOT ---
Date of Service Date of service: 07/13/18 Time of Service: 16:22 Assessment and Plan (1) SIRS (systemic inflammatory response syndrome): Current visit: Yes Status: Resolved Resolved. Clinically, no intraabdominal infection at this time. Additional cause for SIRS could have been adrenal insufficiency and/or UTI. Urine C&S with no growth to date. Continue empiric cipro and flagyl. C. Diff less likely. Stool studies pending. (2) UTI (urinary tract infection): Current visit: Yes Status: Acute Urine C&S (done on zosyn) with no growth to date. Should be adequately covered by cipro. (3) Malnutrition following gastrointestinal surgery: Current visit: Yes Status: Acute Continue TPN x 1 more day, per surgery. Tolerating regular consistency diet. (4) Lower gastrointestinal bleed: Current visit: Yes Status: Acute H/H is stable, no clinical bleeding at this time. Has not required any blood transfusions on this admission. Continue to monitor H/H. (5) S/P exploratory laparotomy: Current visit: No Status: Acute Defer to primary team (6) Postoperative ileus: Current visit: Yes Status: Acute Defer to primary team (7) Chronic adrenal insufficiency: Current visit: Yes Status: Chronic With an acute component as evidenced by hypothermia, hyponatremia, BG's on the lower side. Labs/temperatures look better today. Hydrocortisone is being tapered. (8) PMR (polymyalgia rheumatica): Current visit: No Status: Chronic Continue steroids. Continue to hold methotrexate while healing. Subjective Interval history since last seen: Ms Manuel states she feels much better today. She does complain of back pain - thinks it's because of the hospital bed. Otherwise, she was able to tolerate a soft meal. She has no abdominal pain or nausea. She feels stronger. She denies dizziness, chest pain, or shortness of breath. She is excited to be going home on . Exam Narrative Exam Narrative: General: Very pleasant elderly female, cheeks pink, looks much more energetic, sitting up at the edge of the bed Neurological: A&Ox3, no focal deficits Psychiatric: appropriate speech pattern/content Skin: wound not examined today HEENT: EOMI, MMM, clear oropharynx, no JVD, no goiter Cardiovascular: RRR, no m/r/g Lungs: CTAB Gastrointestinal: abdomen is soft; + Bowel sounds, nondistended, nontender Extremities: 1 + edema BLE's, symmetric, improved Objective Objective Clinical Data: Abnormal lab results 07/13/18 07/13/18 07/13/18 Range/Units 06:10 06:10 06:10 RBC 2.75 L (4.00-5.20) m/cumm Hgb 7.8 L (12.0-15.5) g/dL Hct 25.5 L (36.0-46.0) % MCHC 30.6 L (32.0-36.0) g/dL RDW 15.3 H (11.7-14.6) % Plt Count 407 H (130-400) x1000/uL Absolute Neutrophils 8.70 H (1.2-6.7) k/cumm Absolute Lymphocytes 1.02 L (1.2-3.4) k/cumm BUN 19 H (7-18) mg/dL Glucose 140 H (70-100) mg/dL Calcium 8.1 L (8.5-10.1) mg/dL Phosphorus 1.5 L (2.6-4.7) mg/dL Vital Signs Temperature 36.3 C L 07/13/18 15:49 Temperature Source Tympanic 07/13/18 15:49 Pulse 63 07/13/18 15:49 Pulse Rhythm Regular 07/13/18 15:31 Respiratory Rate 18 07/13/18 15:49 Respiratory Effort Non-Labored 07/13/18 15:31 Respiratory Depth Normal 07/13/18 15:31 Respiratory Pattern Normal 07/13/18 15:31 Blood Pressure 137/67 07/13/18 15:49 Pulse Oximetry 99 07/13/18 15:49 Oxygen Delivery Method Room Air 07/13/18 15:49 Oxygen Flow Rate 0 07/13/18 15:49 Pain Level 1 07/13/18 15:45 Comment 07/13/18 11:22 Intake & Output 07/12/18 07/13/18 07/13/18 23:59 11:59 23:59 Intake Total 1830 / 4034.5 2171 / 2611 440 / 2611 Output Total 1550 / 3300 1200 / 1200 Balance 280 / 734.5 971 / 1411 440 / 1411 Intake: IV 1590 / 3069.5 1331 / 1531 200 / 1531 Oral 240 / 965 840 / 1080 240 / 1080 Output: Urine 1425 / 3175 1200 / 1200 Stool 125 / 125 Other: Urine Color Pale Pale Pale Urine Appearance Clear Clear Clear Urine Odor None None Comment pt passed urine in the tiolet independently voided into toilet Stool Size Small Stool Characteristics Soft Formed Green Brown Voiding Methods Toilet Toilet Toilet Laboratory Results WBC 10.23 k/cumm (4.4-10.8) 07/13/18 06:10 RBC 2.75 m/cumm (4.00-5.20) L 07/13/18 06:10 Hgb 7.8 g/dL (12.0-15.5) L 07/13/18 06:10 Hct 25.5 % (36.0-46.0) L 07/13/18 06:10 MCV 92.7 fL (80-95) 07/13/18 06:10 MCH 28.4 pg (27.0-33.0) 07/13/18 06:10 MCHC 30.6 g/dL (32.0-36.0) L 07/13/18 06:10 RDW 15.3 % (11.7-14.6) H 07/13/18 06:10 Plt Count 407 x1000/uL (130-400) H 07/13/18 06:10 MPV 10.1 fL (8.0-11.0) 07/13/18 06:10 Immature Gran % See Differential 07/13/18 06:10 Neutrophils % 85.0 07/13/18 06:10 Lymphocytes % 7.0 07/13/18 06:10 Monocytes % 4.0 07/13/18 06:10 Eosinophils % 0.0 07/13/18 06:10 Basophils % 0.0 07/13/18 06:10 Absolute Neutrophils 8.70 k/cumm (1.2-6.7) H 07/13/18 06:10 Band Neutrophils 18.0 % 07/11/18 06:20 Absolute Lymphocytes 1.02 k/cumm (1.2-3.4) L 07/13/18 06:10 Absolute Monocytes 0.41 k/cumm (0.11-0.7) 07/13/18 06:10 Absolute Eosinophils 0.00 k/cumm (0.0-0.7) 07/13/18 06:10 Absolute Basophils 0.00 k/cumm (0.0-0.2) 07/13/18 06:10 Metamyelocytes 1.0 % 07/13/18 06:10 Differential Comment Manual differential 07/13/18 06:10 Atypical Lymphocytes 3 07/13/18 06:10 RBC Morphology See below 07/13/18 06:10 Polychromasia Present 07/13/18 06:10 Hypochromasia 1+ 07/13/18 06:10 Anisocytosis 1+ 07/13/18 06:10 ESR 26 MM/HR (0-30) 07/12/18 06:38 PT 13.1 sec (9.3-11.0) H 07/12/18 06:38 INR 1.3 (1.0-3.5) 07/12/18 06:38 APTT 21.7 sec (21.0-31.4) 07/08/18 03:15 Sodium 137 mmol/L (136-145) 07/13/18 06:10 Potassium 4.4 mmol/L (3.5-5.1) 07/13/18 06:10 Chloride 105 mmol/L (98-107) 07/13/18 06:10 Carbon Dioxide 26.2 mmol/L (21.0-32.0) 07/13/18 06:10 Anion Gap 5.8 mmol/L (3-11) 07/13/18 06:10 BUN 19 mg/dL (7-18) H 07/13/18 06:10 Creatinine 0.79 mg/dL (0.55-1.02) 07/13/18 06:10 Estimated GFR/1.73 m2 >= 60.00 (mL/min/1.73m2) 07/13/18 06:10 Glucose 140 mg/dL (70-100) H 07/13/18 06:10 Calcium 8.1 mg/dL (8.5-10.1) L 07/13/18 06:10 Phosphorus 1.5 mg/dL (2.6-4.7) L 07/13/18 06:10 Magnesium 2.2 mg/dL (1.8-2.4) 07/13/18 06:10 Total Bilirubin 0.3 mg/dL (0.2-1.0) 07/12/18 06:38 AST 14 U/L (15-37) L 07/09/18 06:13 ALT 261 U/L (12-78) H 07/12/18 06:38 Alkaline Phosphatase 75 U/L (46-116) 07/12/18 06:38 C-Reactive Protein 7.51 mg/dL (0.0-0.3) H 07/12/18 06:38 Total Protein 6.2 g/dL (6.4-8.2) L 07/09/18 06:13 Albumin 2.2 g/dL (3.4-5.0) L 07/12/18 06:38 Urine Color Yellow (Yellow) 07/10/18 13:00 Urine Clarity Cloudy 07/10/18 13:00 Urine pH 5.5 (5-8) 07/10/18 13:00 Ur Specific [place] 1.025 (1.005-1.025) 07/10/18 13:00 Urine Protein Negative mg/dL (Negative) 07/10/18 13:00 Urine Ketones Negative mg/dL (Negative) 07/10/18 13:00 Urine Blood Negative (Negative) 07/10/18 13:00 Urine Nitrite Positive (Negative) H 07/10/18 13:00 Urine Bilirubin Negative (Negative) 07/10/18 13:00 Urine Urobilinogen 0.2 EU/dL (Up TO 0.2) 07/10/18 13:00 Ur Leukocyte Esterase Trace (Negative) H 07/10/18 13:00 Urine RBC Not Applicable 07/10/18 13:00 Urine WBC Not Applicable 07/10/18 13:00 Ur Epithelial Cells Not Applicable 07/10/18 13:00 Urine Crystals HPF (Negative) 07/10/18 13:00 Urine Bacteria Not Applicable 07/10/18 13:00 Urine Mucus Not Applicable 07/10/18 13:00 Ur Culture Indicated? Yes 07/10/18 13:00 Urine Glucose Negative mg/dL (Negative) 07/10/18 13:00 Patient ABO/Rh O Positive 07/08/18 04:35 Antibody Screen Negative 07/08/18 04:35
[2018-07-13] MEDS: Zolpidem 6.25 MG TABCR PO (22:36)
[2018-07-13 23:53] VITALS: BP 165/75; PULSE 56; RESP 18; TEMP 36.6; O2SAT 99
[2018-07-14] MEDS: Insulin Aspart 300 UNITS/3 ML PEN SC (06:30)
[2018-07-14] MEDS: Hydrocortisone SOD SUC. 100 MG VIAL 25 MG IVP ×2 (06:31)
[2018-07-14] MEDS: Normal Saline Flush 10 ML SYR IVP ×4 (06:44→20:12)
[2018-07-14 07:24] LABS: Abs Immature Grans 0.64 k/cumm (0.0-0.09); HCT 25.6 % (36.0-46.0); HGB 7.9 g/dL (12.0-15.5); Mean Corp. HGB Concentration 30.9 g/dL (32.0-36.0); Mean Corpuscular Hemoglobin 28.7 pg (27.0-33.0); Mean Corpuscular Volume 93.1 fL (80-95); Mean Platelet Volume 9.9 fL (8.0-11.0); Platelet Count 405 x1000/uL (130-400); RBC 2.75 m/cumm (4.00-5.20); RBC Distribution Width 15.6 % (11.7-14.6); White Blood Cell Count 13.07 k/cumm (4.4-10.8)
[2018-07-14 07:26] LABS: ALT 190 U/L (12-78); AST 81 U/L (15-37); Alkaline Phosphatase 156 U/L (46-116); Anion Gap 5.3 mmol/L (3-11); BUN 26 mg/dL (7-18); Bilirubin, Total 0.2 mg/dL (0.2-1.0); C-Reactive Protein 1.27 mg/dL (0.0-0.3); CO2 27.7 mmol/L (21.0-32.0); CREATININE 0.82 mg/dL (0.55-1.02); Calcium 7.9 mg/dL (8.5-10.1); Chloride 105 mmol/L (98-107); Glucose 139 mg/dL (70-100); Magnesium 1.9 mg/dL (1.8-2.4); PHOSPHORUS 1.5 mg/dL (2.6-4.7); Potassium 3.8 mmol/L (3.5-5.1); Sodium 138 mmol/L (136-145); Total Protein 5.6 g/dL (6.4-8.2)
[2018-07-14 07:35] LABS: Absolute Lymphocyte Count 1.44 k/cumm (1.2-3.4); Absolute Monocyte Count 1.57 k/cumm (0.11-0.7); Absolute Neutrophil Count 9.54 k/cumm (1.2-6.7); Atypical Lymphocytes % 4
[2018-07-14 07:36] LABS: Anisocytosis 1+; Diff Comment Manual Differential; Hypochromasia 1+; Poikilocytes 1+; Polychromasia Present
[2018-07-14 08:39] VITALS: BP 149/71; PULSE 60; RESP 20; TEMP 36.4; O2SAT 97
[2018-07-14 09:25] LABS: Prealbumin 7 mg/dL (20-40)
[2018-07-14] MEDS: Furosemide 20 MG/2 ML VIAL IVP ×3 (09:27→18:40)
[2018-07-14] MEDS: Levothyroxine 100 MCG TAB PO (09:27)
[2018-07-14] MEDS: Enoxaparin 40 MG/0.4 ML SYR SC (09:27)
--- NOTE | 2018-07-14 12:53 | PDOC.CMPRO ---
- If Service Date Differs Date of service: 07/14/18 Time of Service: 12:53 Care Management Progress Note S/O:Riddhi is lying in bed this morning. MAYE met with Dr. Rivas whom states that the wound vac will be placed today, and the home unit is being ordered by the Med/Surg unit. Riddhi will require home health RN services at time of DC for management of the wound vac. Riddhi to have a nutrition consult today, and currently has been followed by medicine as well. A:77 year old female admitted to [facility] 07/08/18 for GI Bleed P: Amanda will discharge when medically ready per MD. Riddhi will require home health RN services at time of DC for wound vac management. MAYE has contacted [facility] and spoken with Mirtha, Referral Line, in regards to the above.
[2018-07-14] MEDS: CIPROFLOXACIN 400 MG/200 ML BAG 200 MG IVPB ×2 (13:15)
--- NOTE | 2018-07-14 13:41 | CMPROGNOTE_ITS ---
- If Service Date Differs Date of service: 07/14/18 Time of Service: 12:53 Care Management Progress Note S/O:Riddhi is lying in bed this morning. MAYE met with Dr. Rivas whom states that the wound vac will be placed today, and the home unit is being ordered by the Med/Surg unit. Riddhi will require home health RN services at time of DC for management of the wound vac. Riddhi to have a nutrition consult today, and currently has been followed by medicine as well. A:77 year old female admitted to [facility] 07/08/18 for GI Bleed P: Amanda will discharge when medically ready per MD. Riddhi will require home health RN services at time of DC for wound vac management. MAYE has contacted [facility] and spoken with Mirtha, Referral Line, in regards to the above.
[2018-07-14] MEDS: Hydrocortisone SOD SUC. 100 MG VIAL 10 MG IVP ×2 (14:52→20:12)
--- NOTE | 2018-07-14 14:53 | W.PM.PROGNOT ---
Documented by User: NEO Ramirez 07/14/18 15:02 Date of Service Date of service: 07/14/18 Time of Service: 13:00 Subjective Patient reports: voiding w/o difficulty and afebrile; denies nausea, vomiting and fever Interval history since last seen: Mrs. Manuel reports that she is very tired today and that she was not able to sleep over night. She denies abdominal pain. Exam Const General: cooperative and comfortable GI Inspection: normal to inspection and distended Palpation: soft, no guarding and nontender Extrem General: edema Laterality: bilateral (LE's 3+) Objective Objective Clinical Data: Abnormal lab results 07/14/18 07/14/18 Range/Units 06:35 06:35 WBC 13.07 H (4.4-10.8) k/cumm RBC 2.75 L (4.00-5.20) m/cumm Hgb 7.9 L (12.0-15.5) g/dL Hct 25.6 L (36.0-46.0) % MCHC 30.9 L (32.0-36.0) g/dL RDW 15.6 H (11.7-14.6) % Plt Count 405 H (130-400) x1000/uL Absolute Neutrophils 9.54 H (1.2-6.7) k/cumm Absolute Monocytes 1.57 H (0.11-0.7) k/cumm BUN 26 H (7-18) mg/dL Glucose 139 H (70-100) mg/dL Calcium 7.9 L (8.5-10.1) mg/dL Phosphorus 1.5 L (2.6-4.7) mg/dL AST 81 H (15-37) U/L ALT 190 H (12-78) U/L Alkaline Phosphatase 156 H (46-116) U/L C-Reactive Protein 1.27 H (0.0-0.3) mg/dL Total Protein 5.6 L (6.4-8.2) g/dL Albumin 2.0 L (3.4-5.0) g/dL Vital Signs Temperature 36.4 C L 07/14/18 08:39 Temperature Source Tympanic 07/14/18 08:39 Pulse 60 07/14/18 08:39 Pulse Rhythm Regular 07/14/18 00:39 Respiratory Rate 20 07/14/18 08:39 Respiratory Effort Non-Labored 07/14/18 00:39 Respiratory Depth Normal 07/14/18 00:39 Respiratory Pattern Normal 07/14/18 00:39 Blood Pressure 149/71 H 07/14/18 08:39 Pulse Oximetry 97 07/14/18 08:39 Oxygen Delivery Method Room Air 07/14/18 08:39 Oxygen Flow Rate 0 07/14/18 08:39 Pain Level 0 07/14/18 08:39 Comment 07/13/18 11:22 Intake & Output 07/13/18 07/14/18 07/14/18 23:59 11:59 23:59 Intake Total 1856.9667 / 4027.9667 1234.3333 / 1474.3333 240 / 1474.3333 Output Total 1750 / 1750 Balance 1856.9667 / 2827.9667 -515.6667 / -275.6667 240 / -275.6667 Intake: IV 1376.9667 / 2707.9667 1234.3333 / 1234.3333 Oral 480 / 1320 240 / 240 Output: Urine 1750 / 1750 Other: Urine Color Pale Straw Urine Appearance Clear Clear Urine Odor None None Stool Size Small Small Stool Characteristics Formed Formed Hard Voiding Methods Toilet Toilet Laboratory Results WBC 13.07 k/cumm (4.4-10.8) H 07/14/18 06:35 RBC 2.75 m/cumm (4.00-5.20) L 07/14/18 06:35 Hgb 7.9 g/dL (12.0-15.5) L 07/14/18 06:35 Hct 25.6 % (36.0-46.0) L 07/14/18 06:35 MCV 93.1 fL (80-95) 07/14/18 06:35 MCH 28.7 pg (27.0-33.0) 07/14/18 06:35 MCHC 30.9 g/dL (32.0-36.0) L 07/14/18 06:35 RDW 15.6 % (11.7-14.6) H 07/14/18 06:35 Plt Count 405 x1000/uL (130-400) H 07/14/18 06:35 MPV 9.9 fL (8.0-11.0) 07/14/18 06:35 Immature Gran % See Differential 07/14/18 06:35 Neutrophils % 72.0 07/14/18 06:35 Lymphocytes % 7.0 07/14/18 06:35 Monocytes % 12.0 07/14/18 06:35 Eosinophils % 0.0 07/14/18 06:35 Basophils % 0.0 07/14/18 06:35 Absolute Neutrophils 9.54 k/cumm (1.2-6.7) H 07/14/18 06:35 Band Neutrophils 1.0 % 07/14/18 06:35 Absolute Lymphocytes 1.44 k/cumm (1.2-3.4) 07/14/18 06:35 Absolute Monocytes 1.57 k/cumm (0.11-0.7) H 07/14/18 06:35 Absolute Eosinophils 0.00 k/cumm (0.0-0.7) 07/14/18 06:35 Absolute Basophils 0.00 k/cumm (0.0-0.2) 07/14/18 06:35 Metamyelocytes 2.0 % 07/14/18 06:35 Myelocytes 2.0 % 07/14/18 06:35 Differential Comment Manual differential 07/14/18 06:35 Atypical Lymphocytes 4 07/14/18 06:35 RBC Morphology See below 07/14/18 06:35 Polychromasia Present 07/14/18 06:35 Hypochromasia 1+ 07/14/18 06:35 Poikilocytosis 1+ 07/14/18 06:35 Anisocytosis 1+ 07/14/18 06:35 ESR 26 MM/HR (0-30) 07/12/18 06:38 PT 13.1 sec (9.3-11.0) H 07/12/18 06:38 INR 1.3 (1.0-3.5) 07/12/18 06:38 APTT 21.7 sec (21.0-31.4) 07/08/18 03:15 Sodium 138 mmol/L (136-145) 07/14/18 06:35 Potassium 3.8 mmol/L (3.5-5.1) 07/14/18 06:35 Chloride 105 mmol/L (98-107) 07/14/18 06:35 Carbon Dioxide 27.7 mmol/L (21.0-32.0) 07/14/18 06:35 Anion Gap 5.3 mmol/L (3-11) 07/14/18 06:35 BUN 26 mg/dL (7-18) H 07/14/18 06:35 Creatinine 0.82 mg/dL (0.55-1.02) 07/14/18 06:35 Estimated GFR/1.73 m2 >= 60.00 (mL/min/1.73m2) 07/14/18 06:35 Glucose 139 mg/dL (70-100) H 07/14/18 06:35 Calcium 7.9 mg/dL (8.5-10.1) L 07/14/18 06:35 Phosphorus 1.5 mg/dL (2.6-4.7) L 07/14/18 06:35 Magnesium 1.9 mg/dL (1.8-2.4) 07/14/18 06:35 Total Bilirubin 0.2 mg/dL (0.2-1.0) 07/14/18 06:35 AST 81 U/L (15-37) H 07/14/18 06:35 ALT 190 U/L (12-78) H 07/14/18 06:35 Alkaline Phosphatase 156 U/L (46-116) H 07/14/18 06:35 C-Reactive Protein 1.27 mg/dL (0.0-0.3) H 07/14/18 06:35 Total Protein 5.6 g/dL (6.4-8.2) L 07/14/18 06:35 Albumin 2.0 g/dL (3.4-5.0) L 07/14/18 06:35 Urine Color Yellow (Yellow) 07/10/18 13:00 Urine Clarity Cloudy 07/10/18 13:00 Urine pH 5.5 (5-8) 07/10/18 13:00 Ur Specific [place] 1.025 (1.005-1.025) 07/10/18 13:00 Urine Protein Negative mg/dL (Negative) 07/10/18 13:00 Urine Ketones Negative mg/dL (Negative) 07/10/18 13:00 Urine Blood Negative (Negative) 07/10/18 13:00 Urine Nitrite Positive (Negative) H 07/10/18 13:00 Urine Bilirubin Negative (Negative) 07/10/18 13:00 Urine Urobilinogen 0.2 EU/dL (Up TO 0.2) 07/10/18 13:00 Ur Leukocyte Esterase Trace (Negative) H 07/10/18 13:00 Urine RBC Not Applicable 07/10/18 13:00 Urine WBC Not Applicable 07/10/18 13:00 Ur Epithelial Cells Not Applicable 07/10/18 13:00 Urine Crystals HPF (Negative) 07/10/18 13:00 Urine Bacteria Not Applicable 07/10/18 13:00 Urine Mucus Not Applicable 07/10/18 13:00 Ur Culture Indicated? Yes 07/10/18 13:00 Urine Glucose Negative mg/dL (Negative) 07/10/18 13:00 Patient ABO/Rh O Positive 07/08/18 04:35 Antibody Screen Negative 07/08/18 04:35 Procedures Other Procedure Description/Findings: Lower abdominal incision site (midline)- Wound measuring 6 cm x 3 cm x 4.5. Cleansed and dried the wound. No erythema, drainage or bleeding noted. Skin prepped and a protective barrier was placed to protect the wound edges. A single piece of black foam was placed in the wound and dressed. Wound vac suction applied with good seal. The patient tolerated the procedure well. Documented by User: Reji Rivas DO 07/14/18 17:01 Assessment and Plan (1) UTI (urinary tract infection): Current visit: Yes Status: Acute On cipro will stop at time of discharge, WBC normal Qualifiers: Urinary tract infection type: acute cystitis (2) Chronic adrenal insufficiency: Current visit: Yes Status: Chronic Tapered dose of steriods, doing well. Anticipate discharge if no changes from current health trend. Hospitalist will put orders in for steriod taper (3) Malnutrition following gastrointestinal surgery: Current visit: Yes Status: Acute TPN rate halved, and TPN to run until out. (4) Leukocytosis: Current visit: Yes Status: Acute likely due to steriods patient without active signs of infection Qualifiers: Leukocytosis type: bandemia Qualified Code(s): D72.825 - Bandemia (5) Postoperative wound hematoma: Current visit: Yes Status: Acute Wound vac placed, orders placed for home vac, VNA set up by correctional counselor/case manager, Face to face form completed (6) Anemia: Current visit: No Status: Acute STable H&H no interventions currently, most likely dilutional Qualifiers: Anemia type: iron deficiency Iron deficiency anemia type: other iron deficiency Vitamin B12 deficiency anemia type: Folate deficiency anemia type: Bone marrow failure anemia type: Hemolytic anemia type: Other causes of anemia: Chronic kidney disease stage: Qualified Code(s): D50.8 - Other iron deficiency anemias
[2018-07-14 15:29] VITALS: BP 132/52; PULSE 56; RESP 18; TEMP 36.6; O2SAT 98
--- NOTE | 2018-07-14 17:01 | PDOC.HHF2F ---
1. Encounter Date and Reason I certify that NATASHA JENKINS was seen by Reji Rivas DO on 07/14/18 and that I had a [id number] encounter with this patient that meets the physician face to face encounter requirements. 2. Clinical Findings Supporting Skilled Need and Homebound Status I certify that home health services are medically necessary, include either intermittent assisted and/or physical/speech therapy, and that this patient is homebound in that absences from the home require considerable and taxing effort and are infrequent or of short duration, or are attributable to the need to receive medical care. [X] (a) Attached documentation from encounter provides clinical findings supporting skilled need and homebound status (including what assistance patient requires to leave the home). The encounter with the patient was in whole, or in part, for the following medical condition, which is the primary reason for home health care: GI BLEED, Anemia, wound hematoma, UTI, and malnutrition Senior Living: For MWF wound vac changes, Surgeon to see patient on day a week for vac change, PRN wet to dry dressings changes if problems with wound vac. Physical Therapy: Speech Therapy: Homebound: Limited ability to leave house due to wound care needs, Dr. maurice, and short trips for necessities. 3. Certification and Authentication I certify that I composed the above information based on my clinical judgement relating to this patient's medical condition and, if applicable, clinical findings communicated to me by the NPP or inpatient physician who performed the Home Health Referral. All further orders will be obtained through Maria Dolores Granado MD (Community Based Physician - PCP)
--- NOTE | 2018-07-14 17:05 | HHF2F_ITS ---
1. Encounter Date and Reason I certify that NATASHA JENKINS was seen by Reji Rivas DO on 07/14/18 and that I had a [id number] encounter with this patient that meets the physician face to face encounter requirements. 2. Clinical Findings Supporting Skilled Need and Homebound Status I certify that home health services are medically necessary, include either intermittent fpc and/or physical/speech therapy, and that this patient is homebound in that absences from the home require considerable and taxing effort and are infrequent or of short duration, or are attributable to the need to receive medical care. [X] (a) Attached documentation from encounter provides clinical findings supporting skilled need and homebound status (including what assistance patient requires to leave the home). The encounter with the patient was in whole, or in part, for the following medical condition, which is the primary reason for home health care: GI BLEED, Anemia, wound hematoma, UTI, and malnutrition Retirement: For MWF wound vac changes, Surgeon to see patient on day a week for vac change, PRN wet to dry dressings changes if problems with wound vac. Physical Therapy: Speech Therapy: Homebound: Limited ability to leave house due to wound care needs, Dr. maurice, and short trips for necessities. 3. Certification and Authentication I certify that I composed the above information based on my clinical judgement relating to this patient's medical condition and, if applicable, clinical findings communicated to me by the NPP or inpatient physician who performed the Home Health Referral. All further orders will be obtained through Maria Dolores Granado MD (Community Based Physician - PCP)
--- NOTE | 2018-07-14 18:18 | PGE_ITS ---
Date of Service Date of service: 07/14/18 Time of Service: 14:30 Assessment and Plan (1) SIRS (systemic inflammatory response syndrome): Current visit: Yes Status: Resolved Resolved. Clinically, no intraabdominal infection at this time. Additional cause for SIRS could have been adrenal insufficiency and/or UTI. Urine C&S with no growth to date. Patient now only on cipro. (2) UTI (urinary tract infection): Current visit: Yes Status: Acute Urine C&S (done on zosyn) with no growth to date. Continue cipro Qualifiers: Urinary tract infection type: acute cystitis Hematuria presence: Indwelling urinary catheter type: Encounter type: (3) Malnutrition following gastrointestinal surgery: Current visit: Yes Status: Acute Defer TPN to surgery. Tolerating regular consistency diet. (4) Lower gastrointestinal bleed: Current visit: Yes Status: Acute H/H is stable, no clinical bleeding at this time. She does likely have a component of hemorroidal bleeding, but this has been mild. Monitor H/H. Has not required any blood transfusions on this admission. (5) S/P exploratory laparotomy: Current visit: No Status: Acute Defer to primary team (6) Postoperative ileus: Current visit: Yes Status: Acute Defer to primary team. Clinically resolved. (7) Chronic adrenal insufficiency: Current visit: Yes Status: Chronic With an acute component in light of illness. Continue hydrocortisone taper. (8) PMR (polymyalgia rheumatica): Current visit: No Status: Chronic Continue steroids. Continue to hold methotrexate while healing. Subjective Interval history since last seen: Complains of feeling worse today because she didn't sleep last night. She is requesting a higher dose of ambien (she normally take 12.5 mg). She denies dizziness, chest pain, shortness of breath, nausea, vomiting. She states she noticed a little bit of blood when she wiped today after a bowel movement - only on the toilet paper.She does have hemorrhoids Nursing notes that the patient had subtle confusion today - only happens after she 1st wake up. Exam Narrative Exam Narrative: General: Very pleasant elderly female, asleep when I first came to see her, snoring; easily arousable and re-orientable Neurological: A&Ox3, no focal deficits Psychiatric: appropriate speech pattern/content Skin: wound not examined today HEENT: EOMI, MMM, clear oropharynx, no JVD, no goiter Cardiovascular: RRR, no m/r/g Lungs: CTAB Gastrointestinal: abdomen is soft; + Bowel sounds, nondistended, nontender Extremities: 2 + edema BLE's, symmetric, worse today Objective Objective Clinical Data: Abnormal lab results 07/14/18 07/14/18 Range/Units 06:35 06:35 WBC 13.07 H (4.4-10.8) k/cumm RBC 2.75 L (4.00-5.20) m/cumm Hgb 7.9 L (12.0-15.5) g/dL Hct 25.6 L (36.0-46.0) % MCHC 30.9 L (32.0-36.0) g/dL RDW 15.6 H (11.7-14.6) % Plt Count 405 H (130-400) x1000/uL Absolute Neutrophils 9.54 H (1.2-6.7) k/cumm Absolute Monocytes 1.57 H (0.11-0.7) k/cumm BUN 26 H (7-18) mg/dL Glucose 139 H (70-100) mg/dL Calcium 7.9 L (8.5-10.1) mg/dL Phosphorus 1.5 L (2.6-4.7) mg/dL AST 81 H (15-37) U/L ALT 190 H (12-78) U/L Alkaline Phosphatase 156 H (46-116) U/L C-Reactive Protein 1.27 H (0.0-0.3) mg/dL Total Protein 5.6 L (6.4-8.2) g/dL Albumin 2.0 L (3.4-5.0) g/dL Vital Signs Temperature 36.6 C 07/14/18 15:29 Temperature Source Tympanic 07/14/18 15:29 Pulse 56 L 07/14/18 15:29 Pulse Rhythm Irregular 07/14/18 16:48 Respiratory Rate 18 07/14/18 15:29 Respiratory Effort Non-Labored 07/14/18 16:48 Respiratory Depth Normal 07/14/18 16:48 Respiratory Pattern Normal 07/14/18 16:48 Blood Pressure 132/52 L 07/14/18 15:29 Pulse Oximetry 98 07/14/18 15:29 Oxygen Delivery Method Room Air 07/14/18 15:29 Oxygen Flow Rate 0 07/14/18 15:29 Pain Level 0 07/14/18 08:39 Comment 07/13/18 11:22 Intake & Output 07/13/18 07/14/18 07/14/18 23:59 11:59 23:59 Intake Total 1856.9667 / 4027.9667 1234.3333 / 2702.9163 1468.583 / 2702.9163 Output Total 1750 / 1750 Balance 1856.9667 / 2827.9667 -515.6667 / 952.9163 1468.583 / 952.9163 Intake: IV 1376.9667 / 2707.9667 1234.3333 / 2462.9163 1228.583 / 2462.9163 Oral 480 / 1320 240 / 240 Output: Urine 1750 / 1750 Other: Urine Color Pale Straw Urine Appearance Clear Clear Urine Odor None None Comment urine unseen at this time. pt voiding independently in the toilet Stool Size Small Small Stool Characteristics Formed Formed Hard Voiding Methods Toilet Toilet Toilet Laboratory Results WBC 13.07 k/cumm (4.4-10.8) H 07/14/18 06:35 RBC 2.75 m/cumm (4.00-5.20) L 07/14/18 06:35 Hgb 7.9 g/dL (12.0-15.5) L 07/14/18 06:35 Hct 25.6 % (36.0-46.0) L 07/14/18 06:35 MCV 93.1 fL (80-95) 07/14/18 06:35 MCH 28.7 pg (27.0-33.0) 07/14/18 06:35 MCHC 30.9 g/dL (32.0-36.0) L 07/14/18 06:35 RDW 15.6 % (11.7-14.6) H 07/14/18 06:35 Plt Count 405 x1000/uL (130-400) H 07/14/18 06:35 MPV 9.9 fL (8.0-11.0) 07/14/18 06:35 Immature Gran % See Differential 07/14/18 06:35 Neutrophils % 72.0 07/14/18 06:35 Lymphocytes % 7.0 07/14/18 06:35 Monocytes % 12.0 07/14/18 06:35 Eosinophils % 0.0 07/14/18 06:35 Basophils % 0.0 07/14/18 06:35 Absolute Neutrophils 9.54 k/cumm (1.2-6.7) H 07/14/18 06:35 Band Neutrophils 1.0 % 07/14/18 06:35 Absolute Lymphocytes 1.44 k/cumm (1.2-3.4) 07/14/18 06:35 Absolute Monocytes 1.57 k/cumm (0.11-0.7) H 07/14/18 06:35 Absolute Eosinophils 0.00 k/cumm (0.0-0.7) 07/14/18 06:35 Absolute Basophils 0.00 k/cumm (0.0-0.2) 07/14/18 06:35 Metamyelocytes 2.0 % 07/14/18 06:35 Myelocytes 2.0 % 07/14/18 06:35 Differential Comment Manual differential 07/14/18 06:35 Atypical Lymphocytes 4 07/14/18 06:35 RBC Morphology See below 07/14/18 06:35 Polychromasia Present 07/14/18 06:35 Hypochromasia 1+ 07/14/18 06:35 Poikilocytosis 1+ 07/14/18 06:35 Anisocytosis 1+ 07/14/18 06:35 ESR 26 MM/HR (0-30) 07/12/18 06:38 PT 13.1 sec (9.3-11.0) H 07/12/18 06:38 INR 1.3 (1.0-3.5) 07/12/18 06:38 APTT 21.7 sec (21.0-31.4) 07/08/18 03:15 Sodium 138 mmol/L (136-145) 07/14/18 06:35 Potassium 3.8 mmol/L (3.5-5.1) 07/14/18 06:35 Chloride 105 mmol/L (98-107) 07/14/18 06:35 Carbon Dioxide 27.7 mmol/L (21.0-32.0) 07/14/18 06:35 Anion Gap 5.3 mmol/L (3-11) 07/14/18 06:35 BUN 26 mg/dL (7-18) H 07/14/18 06:35 Creatinine 0.82 mg/dL (0.55-1.02) 07/14/18 06:35 Estimated GFR/1.73 m2 >= 60.00 (mL/min/1.73m2) 07/14/18 06:35 Glucose 139 mg/dL (70-100) H 07/14/18 06:35 Calcium 7.9 mg/dL (8.5-10.1) L 07/14/18 06:35 Phosphorus 1.5 mg/dL (2.6-4.7) L 07/14/18 06:35 Magnesium 1.9 mg/dL (1.8-2.4) 07/14/18 06:35 Total Bilirubin 0.2 mg/dL (0.2-1.0) 07/14/18 06:35 AST 81 U/L (15-37) H 07/14/18 06:35 ALT 190 U/L (12-78) H 07/14/18 06:35 Alkaline Phosphatase 156 U/L (46-116) H 07/14/18 06:35 C-Reactive Protein 1.27 mg/dL (0.0-0.3) H 07/14/18 06:35 Total Protein 5.6 g/dL (6.4-8.2) L 07/14/18 06:35 Albumin 2.0 g/dL (3.4-5.0) L 07/14/18 06:35 Urine Color Yellow (Yellow) 07/10/18 13:00 Urine Clarity Cloudy 07/10/18 13:00 Urine pH 5.5 (5-8) 07/10/18 13:00 Ur Specific [place] 1.025 (1.005-1.025) 07/10/18 13:00 Urine Protein Negative mg/dL (Negative) 07/10/18 13:00 Urine Ketones Negative mg/dL (Negative) 07/10/18 13:00 Urine Blood Negative (Negative) 07/10/18 13:00 Urine Nitrite Positive (Negative) H 07/10/18 13:00 Urine Bilirubin Negative (Negative) 07/10/18 13:00 Urine Urobilinogen 0.2 EU/dL (Up TO 0.2) 07/10/18 13:00 Ur Leukocyte Esterase Trace (Negative) H 07/10/18 13:00 Urine RBC Not Applicable 07/10/18 13:00 Urine WBC Not Applicable 07/10/18 13:00 Ur Epithelial Cells Not Applicable 07/10/18 13:00 Urine Crystals HPF (Negative) 07/10/18 13:00 Urine Bacteria Not Applicable 07/10/18 13:00 Urine Mucus Not Applicable 07/10/18 13:00 Ur Culture Indicated? Yes 07/10/18 13:00 Urine Glucose Negative mg/dL (Negative) 07/10/18 13:00 Patient ABO/Rh O Positive 07/08/18 04:35 Antibody Screen Negative 07/08/18 04:35
[2018-07-14] MEDS: Zolpidem 6.25 MG TABCR PO (21:11)
[2018-07-14] MEDS: Acetaminophen 325 MG TAB 650 MG PO (21:11)
[2018-07-14] MEDS: Normal Saline 500 ML IV (23:59)
[2018-07-15] MEDS: Normal Saline Flush 10 ML SYR IVP ×4 (00:06→12:42)
[2018-07-15 00:10] VITALS: BP 124/43; PULSE 67; RESP 18; TEMP 36.6; O2SAT 97
[2018-07-15] MEDS: Hydrocortisone SOD SUC. 100 MG VIAL 10 MG IVP (02:34)
[2018-07-15 07:10] LABS: Abs Immature Grans 0.49 k/cumm (0.0-0.09); HCT 26.7 % (36.0-46.0); HGB 8.2 g/dL (12.0-15.5); Mean Corp. HGB Concentration 30.7 g/dL (32.0-36.0); Mean Corpuscular Hemoglobin 28.5 pg (27.0-33.0); Mean Corpuscular Volume 92.7 fL (80-95); Mean Platelet Volume 10.1 fL (8.0-11.0); Platelet Count 393 x1000/uL (130-400); RBC 2.88 m/cumm (4.00-5.20); RBC Distribution Width 15.6 % (11.7-14.6); White Blood Cell Count 10.08 k/cumm (4.4-10.8)
[2018-07-15 07:28] LABS: Anion Gap 8.1 mmol/L (3-11); BUN 24 mg/dL (7-18); CO2 27.9 mmol/L (21.0-32.0); CREATININE 0.77 mg/dL (0.55-1.02); Calcium 8.2 mg/dL (8.5-10.1); Chloride 104 mmol/L (98-107); Glucose 105 mg/dL (70-100); Magnesium 1.8 mg/dL (1.8-2.4); PHOSPHORUS 2.9 mg/dL (2.6-4.7); Potassium 3.4 mmol/L (3.5-5.1); Sodium 140 mmol/L (136-145)
[2018-07-15 07:31] LABS: Absolute Lymphocyte Count 1.51 k/cumm (1.2-3.4); Absolute Monocyte Count 1.11 k/cumm (0.11-0.7); Absolute Neutrophil Count 7.06 k/cumm (1.2-6.7); Atypical Lymphocytes % 2
[2018-07-15 07:32] LABS: Anisocytosis 1+; Diff Comment Manual Differential; Hypochromasia 1+; Poikilocytes 1+; Polychromasia Present
[2018-07-15 07:43] VITALS: BP 154/55; PULSE 65; RESP 16; TEMP 36.6; O2SAT 98
--- NOTE | 2018-07-15 08:40 | W.PM.DS.N ---
Date of service: 07/15/18 Time of Service: 08:40 DS: Diagnosis Discharge Diagnosis (1) SIRS (systemic inflammatory response syndrome): Status: Resolved (2) UTI (urinary tract infection): Status: Acute (3) Malnutrition following gastrointestinal surgery: Status: Acute (4) Lower gastrointestinal bleed: Status: Acute (5) S/P exploratory laparotomy: Status: Acute (6) Postoperative ileus: Status: Acute (7) Chronic adrenal insufficiency: Status: Chronic (8) PMR (polymyalgia rheumatica): Status: Chronic (9) Acute adrenal insufficiency: Status: Acute (10) Postoperative wound hematoma: Status: Acute Discharge Plan Disposition Patient Disposition: HOME Condition: Stable Discharge Details Chief Complaint: GI Bleed Clinical Impression: S/P exploratory laparotomy, GI bleed Reason For Visit: GI BLEED Admit Date/Time: 07/08/18 06:53 Admit Provider: My Schwarz Attending Provider: My Schwarz Primary Care Provider: Liz Granado ED Provider: Attila Amado [facility] Course Hospital Course: pt presented with concern for lower GI bleed post op from a colon resection this did not seem to be her issue with her developing a post op ileus and lower wound infection the wound was opened and cultures taken the pt had N/V with and NGT placed and we got out >3liters og gi contents the workup included a ct and this was normal post op changes in reviewing her meds and labs it appears she had acute adrenal insufficiency she was given stress dose steroids and her condition improved appears she was not getting the meds absorbed po due to her condition and needed iv to correct the steroid deficiency her wound infection cleared and a wound vac was placed pt chidi reg diet no episodes of gib having BM and appropriate UO she has been given specific instructions on her meds and wound care shell have a VNA, and her PMD to manage her taper dosing of the steroids Home Meds and New Rx's Prescriptions: New zolpidem 6.25 mg Tablet,Ext Release Multiphase 6.25 mg PO HS 30 Days Qty: 30 RF: 0 Solu-Cortef (PF) 100 mg/2 mL Recon Soln 10 mg IVP Q6H 7 Days Qty: 5.6 RF: 0 Continued bupropion HCl 300 mg tablet extended release 24 hr 300 mg PO QAM RF: 0 isoniazid 300 mg tablet 300 mg PO DAILY RF: 0 zolpidem 12.5 mg tablet,ext release multiphase 12.5 mg PO HS RF: 0 cholecalciferol (vitamin D3) 1,000 unit tablet 500 unit PO DAILY RF: 0 methylprednisolone [Medrol] 4 mg tablet 4 mg PO DAILY RF: 0 pyridoxine (vitamin B6) 25 mg tablet 25 mg PO DAILY RF: 0 aspirin [Aspirin Low Dose] 81 MG tablet,delayed release (DR/EC) 81 mg PO DAILY RF: 0 clotrimazole 45 GM cream 45 gm Topical BID PRNQty: 1 RF: 2 nystatin 60 GM powder 60 gm Topical DAILY Qty: 1 RF: 2 folic acid 1 MG tablet 1 mg PO DAILY Qty: 90 RF: 4 ferrous gluconate 324 MG tablet 324 mg PO DAILY Qty: 30 RF: 4 Finacea 50 GM gel 50 gm Topical BID Qty: 1 RF: 3 furosemide 20 MG tablet 20 mg PO DAILY Qty: 30 RF: 3 mirtazapine 7.5 MG tablet 7.5 mg PO HS Qty: 90 RF: 2 methotrexate sodium 2.5 mg tablet 15 mg PO .weekly Qty: 4 RF: 0 levothyroxine 100 mcg tablet 100 mcg PO DAILY Qty: 90 RF: 2 ascorbic acid (vitamin C) [Vitamin C] 500 MG tablet 500 mg PO DAILY RF: 0 ibuprofen [IBU] 600 mg Tablet 600 mg PO Q6H PRN PRN (Reason: Pain) Qty: 30 RF: 0 oxycodone 5 mg Tablet 5 mg PO Q6H PRN (Reason: Pain) Qty: 20 RF: 0 polyethylene glycol 3350 [Miralax] 17 gram/dose powder 17 gm PO DAILY PRN (Reason: constipation) Qty: 238 RF: 0 Discharge Instructions Care Plan Goals: pt to have her pmd treat her adrenal insufficiency and taper the steroids as an outpatient Referrals: My Schwarz MD [ [facility] STAFF PHYSICIAN] - 07/27/18 8:00 am Activity:: Activity as Tolerated Equipment/Supplies:: wound vac Diet:: As Tolerated Discharge Orders Discharge Orders: Discharge Order (Routine); Ordered 07/15/18 Ordered By: Daryl Young III DS: Data Vitals/I&O Vitals and I&O: Vital Signs Temperature 36.6 C 07/15/18 07:43 Temperature Source Tympanic 07/15/18 07:43 Pulse 65 07/15/18 07:43 Pulse Rhythm Irregular 07/15/18 04:01 Respiratory Rate 16 07/15/18 07:43 Respiratory Effort Non-Labored 07/15/18 04:01 Respiratory Depth Normal 07/15/18 04:01 Respiratory Pattern Normal 07/15/18 04:01 Blood Pressure 154/55 H 07/15/18 07:43 Pulse Oximetry 98 07/15/18 07:43 Oxygen Delivery Method Room Air 07/15/18 07:43 Oxygen Flow Rate 0 07/15/18 07:43 Pain Level 5 07/14/18 21:11 Comment 07/13/18 11:22 Intake & Output 07/14/18 07/14/18 07/15/18 11:59 23:59 11:59 Intake Total 1568.6663 / 2604.6663 1036 / 2604.6663 866.4353 / 866.4353 Output Total 1750 / 2975 1225 / 2975 1100 / 1100 Balance -181.3337 / -370.3337 -189 / -370.3337 -233.5647 / -233.5647 Intake: IV 1568.6663 / 2124.6663 556 / 2124.6663 626.4353 / 626.4353 Oral 480 / 480 240 / 240 Output: Urine 1750 / 2975 1225 / 2975 1100 / 1100 Other: Urine Color Straw Pale Yellow Yellow Urine Appearance Clear Clear Clear Urine Odor None None Normal Comment urine unseen at this time. pt voiding independently in the toilet Rec'd IV lasix previous shift. Total of 2 voids. Stool Size Small Moderate Stool Characteristics Formed Soft Brown Voiding Methods Toilet Toilet Bedside Commode Labs on day of discharge: Labs from last 24 hours 07/15/18 07/15/18 07/15/18 06:30 06:30 06:30 WBC 10.08 RBC 2.88 L Hgb 8.2 L Hct 26.7 L MCV 92.7 MCH 28.5 MCHC 30.7 L RDW 15.6 H Plt Count 393 MPV 10.1 Immature Gran % See Differential Neutrophils % 70.0 Lymphocytes % 13.0 Monocytes % 11.0 Eosinophils % 0.0 Basophils % 0.0 Absolute Neutrophils 7.06 H Absolute Lymphocytes 1.51 Absolute Monocytes 1.11 H Absolute Eosinophils 0.00 Absolute Basophils 0.00 Metamyelocytes 1.0 Myelocytes 3.0 Differential Comment Manual differential Atypical Lymphocytes 2 RBC Morphology See below Polychromasia Present Hypochromasia 1+ Poikilocytosis 1+ Anisocytosis 1+ Sodium 140 Potassium 3.4 L Chloride 104 Carbon Dioxide 27.9 Anion Gap 8.1 BUN 24 H Creatinine 0.77 Estimated GFR/1.73 m2 >= 60.00 Glucose 105 H Calcium 8.2 L Phosphorus 2.9 Magnesium 1.8 Prealbumin Stool Campylobacter PCR Stool Salmonella PCR Stool Shigella PCR Shiga Toxin (PCR) 07/12/18 07/11/18 06:38 02:40 WBC RBC Hgb Hct MCV MCH MCHC RDW Plt Count MPV Immature Gran % Neutrophils % Lymphocytes % Monocytes % Eosinophils % Basophils % Absolute Neutrophils Absolute Lymphocytes Absolute Monocytes Absolute Eosinophils Absolute Basophils Metamyelocytes Myelocytes Differential Comment Atypical Lymphocytes RBC Morphology Polychromasia Hypochromasia Poikilocytosis Anisocytosis Sodium Potassium Chloride Carbon Dioxide Anion Gap BUN Creatinine Estimated GFR/1.73 m2 Glucose Calcium Phosphorus Magnesium Prealbumin 7 L Stool Campylobacter PCR See comments Stool Salmonella PCR See comments Stool Shigella PCR See comments Shiga Toxin (PCR) See comments [facility] Medical History Raynaud's disease (Acute) Primary osteoarthritis of left knee (Acute 07/30/15) PMR (polymyalgia rheumatica) (Chronic 01/15/16) Osteoporosis (Acute) Osteopenia (Acute 07/30/16) Obstructive sleep apnea syndrome (Acute) Non-alcoholic fatty liver disease (Acute) Memory impairment (Acute 06/18/94) Increased body mass index (Acute) Hypothyroidism (Acute 04/05/12) Fracture, calcaneus closed (Acute 09/19/14) Excessive sweating (Acute 06/02/16) Depressive disorder (Acute) Colon polyp (Acute 06/28/18) Cataract (Acute 07/28/14) Benign paroxysmal positional vertigo (Acute) Abdominal pain (Acute 10/31/13) Insomnia (Acute) Tuberculosis (Chronic) Surgical History S/P exploratory laparotomy (Acute ~06/28/18) H/O dilation and curettage (Acute) S/P tonsillectomy (Acute) Abdominal hysterectomy (~1975) Appendectomy Bilateral salpingectomy with oophorectomy (~1975) Colonoscopy - MAC EGD - MAC (~2003) Laparoscopic, Ovarian Cystectomy Rotator Cuff Repair Family History Mother Heart disease Father Stroke Sister No problems noted. Brother No problems noted. Grandfather Essential hypertension Heart disease Grandfather No problems noted. 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
[2018-07-15] MEDS: Furosemide 20 MG/2 ML VIAL IVP ×2 (09:52→12:41)
[2018-07-15] MEDS: Levothyroxine 100 MCG TAB PO (09:52)
[2018-07-15] MEDS: methylPREDNISolone 4 MG TAB PO (09:56)
--- NOTE | 2018-07-15 10:36 | W.NUTCONSULT ---
Date of service: 07/15/18 Time of Service: 10:37 Nutritional Consult ASSESSMENT: Nutrition consult for nutrition therapy with wound. NUTRITIONAL DIAGNOSIS: Increased need for nutrients related to wound. INTERVENTION: Reviewed high protein nutrition therapy with Ms. Manuel. Provided written materials with lists of protein foods, high protein recipes, and sample meal plans. Ms. Manuel demonstrated a good understanding of the information. Suggested that she take a multivitamin with minerals in addition to her other vitamins. She verbalized that she would comply. MONITORING AND EVALUATION: Ms. Manuel will monitor her progress on her action plans at home. Evaluate nutrition care plan ongoing and adjust as needed. Time Spent in Nutritional Counseling and Treatment: TRICIA
[2018-07-15] MEDS: CIPROFLOXACIN 400 MG/200 ML BAG 200 MG IVPB ×2 (12:42)
--- NOTE | 2018-07-15 13:45 | PDOC.CMDIS ---
- If Service Date Differs Date of service: 07/15/18 Time of Service: 13:45 LACE Index Scoring Tool - Questions: Length of Stay (in days): 7 - 13 Acuity (Admit via E.D.?): Yes E.D. Visits: 2 - Answers: Total Score: 10 Risk of Readmission: High Risk Care Management Discharge Reason for Hospitalization: GI Bleed. Discharge Plan: Riddhi will return home today with home health RN services for wound vac management. MAYE spoke with HELENA Grimaldo, to alert of Riddhi's DC home today. Riddhi's Ed will transport her. Patient/Family Education Needs: Review DC instructions, any limitations, and discuss 'Ask Me Three' Services Needed at Discharge: Home Health Care Services (RN - Wound Vac Management)
--- NOTE | 2018-07-15 13:55 | CHAPLAIN ---
Riddhi was happy to tell me that she is being discharged. She looks forward going home and getting to sleep better in her own bed. She lives in [place] as is interested in reconnecting with the [facility]. She visited with Fr. Ward while she was here. I provided Riddhi the contact information for the [facility] in [place].
[2018-07-15] MEDS: Bacitracin 1 PACKET (15:22)
[2018-07-15 15:52] VITALS: BP 138/43; PULSE 71; RESP 18; TEMP 36.7; O2SAT 97
--- NOTE | 2018-07-15 17:12 | PGE_ITS ---
Date of Service Date of service: 07/15/18 Time of Service: 11:45 Assessment and Plan (1) SIRS (systemic inflammatory response syndrome): Current visit: Yes Status: Resolved Resolved. Clinically, no intraabdominal infection. Additional cause for SIRS could have been adrenal insufficiency and/or UTI. Urine C&S with no growth to date. No abx on discharge would likely be ok - but the patient would need to have close follow up with PCP. (2) UTI (urinary tract infection): Current visit: Yes Status: Acute Uncomplicated, received 3 days of therapy. Ok to discharge home without antibiotics. Qualifiers: Urinary tract infection type: acute cystitis Hematuria presence: Indwelling urinary catheter type: Encounter type: (3) Malnutrition following gastrointestinal surgery: Current visit: Yes Status: Acute Finished TPN. Tolerating PO. (4) Lower gastrointestinal bleed: Current visit: Yes Status: Acute H/H is stable, no clinical bleeding at this time. There likely was a component of very slight hemorrhoidal bleeding yesterday. (5) S/P exploratory laparotomy: Current visit: No Status: Acute Going home with a wound vac (6) Postoperative ileus: Current visit: Yes Status: Acute Defer to primary team. Clinically resolved. (7) Chronic adrenal insufficiency: Current visit: Yes Status: Chronic Now at baseline. Discharge home on her regular hydrocortisone dose. (8) PMR (polymyalgia rheumatica): Current visit: No Status: Chronic Continue steroids. Continue to hold methotrexate while healing. Subjective Interval history since last seen: Ms Manuel reports no dizziness, chest pain, shortness of breath, nausea, vomiting, abdominal pain. She is able to tolerate PO and has been having bowel movements. She did not notice any blood wiping today. She is being discharged home by surgical service today. Exam Narrative Exam Narrative: General: Very pleasant elderly female, mental status at baseline Neurological: A&Ox3, no focal deficits Psychiatric: appropriate speech pattern/content Skin: wound not examined today HEENT: EOMI, MMM, clear oropharynx, no JVD, no goiter Cardiovascular: RRR, no m/r/g Lungs: CTAB Gastrointestinal: abdomen is soft; + Bowel sounds, nondistended, nontender Extremities: 2 + edema BLE's, symmetric, worse Objective Objective Clinical Data: Abnormal lab results 07/12/18 07/15/18 07/15/18 Range/Units 06:38 06:30 06:30 RBC 2.88 L (4.00-5.20) m/cumm Hgb 8.2 L (12.0-15.5) g/dL Hct 26.7 L (36.0-46.0) % MCHC 30.7 L (32.0-36.0) g/dL RDW 15.6 H (11.7-14.6) % Absolute Neutrophils 7.06 H (1.2-6.7) k/cumm Absolute Monocytes 1.11 H (0.11-0.7) k/cumm Potassium 3.4 L (3.5-5.1) mmol/L BUN 24 H (7-18) mg/dL Glucose 105 H (70-100) mg/dL Calcium 8.2 L (8.5-10.1) mg/dL Prealbumin 7 L (20-40) mg/dL Vital Signs Temperature 36.7 C 07/15/18 15:52 Temperature Source Tympanic 07/15/18 15:52 Pulse 71 07/15/18 15:52 Pulse Rhythm Regular 07/15/18 09:45 Respiratory Rate 18 07/15/18 15:52 Respiratory Effort Non-Labored 07/15/18 09:45 Respiratory Depth Normal 07/15/18 09:45 Respiratory Pattern Normal 07/15/18 09:45 Blood Pressure 138/43 L 07/15/18 15:52 Pulse Oximetry 97 07/15/18 15:52 Oxygen Delivery Method Room Air 07/15/18 15:52 Oxygen Flow Rate 0 07/15/18 15:52 Pain Level 5 07/14/18 21:11 Comment 07/13/18 11:22 Intake & Output 07/14/18 07/15/18 07/15/18 23:59 11:59 23:59 Intake Total 1036 / 2604.6663 926.4353 / 1176.4353 250 / 1176.4353 Output Total 1225 / 2975 1900 / 2300 400 / 2300 Balance -189 / -370.3337 -973.5647 / -1123.5647 -150 / -1123.5647 Intake: IV 556 / 2124.6663 686.4353 / 686.4353 Oral 480 / 480 240 / 490 250 / 490 Output: Urine 1225 / 2975 1900 / 2300 400 / 2300 Other: Urine Color Pale Yellow Yellow Yellow Urine Appearance Clear Clear Urine Odor None Normal Comment urine unseen at this time. pt voiding independently in the toilet Rec'd IV lasix previous shift. Total of 2 voids. Stool Size Large Stool Characteristics Soft Brown Voiding Methods Toilet Bedside Commode Toilet Laboratory Results WBC 10.08 k/cumm (4.4-10.8) 07/15/18 06:30 RBC 2.88 m/cumm (4.00-5.20) L 07/15/18 06:30 Hgb 8.2 g/dL (12.0-15.5) L 07/15/18 06:30 Hct 26.7 % (36.0-46.0) L 07/15/18 06:30 MCV 92.7 fL (80-95) 07/15/18 06:30 MCH 28.5 pg (27.0-33.0) 07/15/18 06:30 MCHC 30.7 g/dL (32.0-36.0) L 07/15/18 06:30 RDW 15.6 % (11.7-14.6) H 07/15/18 06:30 Plt Count 393 x1000/uL (130-400) 07/15/18 06:30 MPV 10.1 fL (8.0-11.0) 07/15/18 06:30 Immature Gran % See Differential 07/15/18 06:30 Neutrophils % 70.0 07/15/18 06:30 Lymphocytes % 13.0 07/15/18 06:30 Monocytes % 11.0 07/15/18 06:30 Eosinophils % 0.0 07/15/18 06:30 Basophils % 0.0 07/15/18 06:30 Absolute Neutrophils 7.06 k/cumm (1.2-6.7) H 07/15/18 06:30 Band Neutrophils 1.0 % 07/14/18 06:35 Absolute Lymphocytes 1.51 k/cumm (1.2-3.4) 07/15/18 06:30 Absolute Monocytes 1.11 k/cumm (0.11-0.7) H 07/15/18 06:30 Absolute Eosinophils 0.00 k/cumm (0.0-0.7) 07/15/18 06:30 Absolute Basophils 0.00 k/cumm (0.0-0.2) 07/15/18 06:30 Metamyelocytes 1.0 % 07/15/18 06:30 Myelocytes 3.0 % 07/15/18 06:30 Differential Comment Manual differential 07/15/18 06:30 Atypical Lymphocytes 2 07/15/18 06:30 RBC Morphology See below 07/15/18 06:30 Polychromasia Present 07/15/18 06:30 Hypochromasia 1+ 07/15/18 06:30 Poikilocytosis 1+ 07/15/18 06:30 Anisocytosis 1+ 07/15/18 06:30 ESR 26 MM/HR (0-30) 07/12/18 06:38 PT 13.1 sec (9.3-11.0) H 07/12/18 06:38 INR 1.3 (1.0-3.5) 07/12/18 06:38 APTT 21.7 sec (21.0-31.4) 07/08/18 03:15 Sodium 140 mmol/L (136-145) 07/15/18 06:30 Potassium 3.4 mmol/L (3.5-5.1) L 07/15/18 06:30 Chloride 104 mmol/L (98-107) 07/15/18 06:30 Carbon Dioxide 27.9 mmol/L (21.0-32.0) 07/15/18 06:30 Anion Gap 8.1 mmol/L (3-11) 07/15/18 06:30 BUN 24 mg/dL (7-18) H 07/15/18 06:30 Creatinine 0.77 mg/dL (0.55-1.02) 07/15/18 06:30 Estimated GFR/1.73 m2 >= 60.00 (mL/min/1.73m2) 07/15/18 06:30 Glucose 105 mg/dL (70-100) H 07/15/18 06:30 Calcium 8.2 mg/dL (8.5-10.1) L 07/15/18 06:30 Phosphorus 2.9 mg/dL (2.6-4.7) 07/15/18 06:30 Magnesium 1.8 mg/dL (1.8-2.4) 07/15/18 06:30 Total Bilirubin 0.2 mg/dL (0.2-1.0) 07/14/18 06:35 AST 81 U/L (15-37) H 07/14/18 06:35 ALT 190 U/L (12-78) H 07/14/18 06:35 Alkaline Phosphatase 156 U/L (46-116) H 07/14/18 06:35 C-Reactive Protein 1.27 mg/dL (0.0-0.3) H 07/14/18 06:35 Total Protein 5.6 g/dL (6.4-8.2) L 07/14/18 06:35 Albumin 2.0 g/dL (3.4-5.0) L 07/14/18 06:35 Prealbumin 7 mg/dL (20-40) L 07/12/18 06:38 Urine Color Yellow (Yellow) 07/10/18 13:00 Urine Clarity Cloudy 07/10/18 13:00 Urine pH 5.5 (5-8) 07/10/18 13:00 Ur Specific [place] 1.025 (1.005-1.025) 07/10/18 13:00 Urine Protein Negative mg/dL (Negative) 07/10/18 13:00 Urine Ketones Negative mg/dL (Negative) 07/10/18 13:00 Urine Blood Negative (Negative) 07/10/18 13:00 Urine Nitrite Positive (Negative) H 07/10/18 13:00 Urine Bilirubin Negative (Negative) 07/10/18 13:00 Urine Urobilinogen 0.2 EU/dL (Up TO 0.2) 07/10/18 13:00 Ur Leukocyte Esterase Trace (Negative) H 07/10/18 13:00 Urine RBC Not Applicable 07/10/18 13:00 Urine WBC Not Applicable 07/10/18 13:00 Ur Epithelial Cells Not Applicable 07/10/18 13:00 Urine Crystals HPF (Negative) 07/10/18 13:00 Urine Bacteria Not Applicable 07/10/18 13:00 Urine Mucus Not Applicable 07/10/18 13:00 Ur Culture Indicated? Yes 07/10/18 13:00 Urine Glucose Negative mg/dL (Negative) 07/10/18 13:00 Stool Campylobacter PCR See comments 07/11/18 02:40 Stool Salmonella PCR See comments 07/11/18 02:40 Stool Shigella PCR See comments 07/11/18 02:40 Shiga Toxin (PCR) See comments 07/11/18 02:40 Patient ABO/Rh O Positive 07/08/18 04:35 Antibody Screen Negative 07/08/18 04:35
== END 2018-07-15 17:10 | disposition home or self-care (01) | DRG 863 ==
LOC: ER 08:01 → MS 13:28
PROVIDERS: Internal Medicine; Admitting Provider Surgery; Emergency Provider Emergency Medicine; PCP Family Medicine; Visit Provider Surgery
DX: T81.41XA Infection following a procedure, superficial incisional surgical site, initial encounter (principal); R65.10 Systemic inflammatory response syndrome (SIRS) of non-infectious origin without acute organ dysfunction; K91.840 Postprocedural hemorrhage of a digestive system organ or structure following a digestive system procedure; K92.2 Gastrointestinal hemorrhage, unspecified; L76.32 Postprocedural hematoma of skin and subcutaneous tissue following other procedure; K91.30 Postprocedural intestinal obstruction, unspecified as to partial versus complete; E27.49 Other adrenocortical insufficiency; N39.0 Urinary tract infection, site not specified; K91.2 Postsurgical malabsorption, not elsewhere classified; R11.14 Bilious vomiting; D50.9 Iron deficiency anemia, unspecified; G89.18 Other acute postprocedural pain; R10.9 Unspecified abdominal pain; Z90.49 Acquired absence of other specified parts of digestive tract; Z48.815 Encounter for surgical aftercare following surgery on the digestive system; E87.6 Hypokalemia; E83.42 Hypomagnesemia; D72.825 Bandemia; B96.1 Klebsiella pneumoniae [K. pneumoniae] as the cause of diseases classified elsewhere; Z91.041 Radiographic dye allergy status; M35.3 Polymyalgia rheumatica; E03.9 Hypothyroidism, unspecified; G47.33 Obstructive sleep apnea (adult) (pediatric); R76.11 Nonspecific reaction to tuberculin skin test without active tuberculosis; R68.0 Hypothermia, not associated with low environmental temperature; G47.00 Insomnia, unspecified
CPT/HCPCS: 36410; 36415; 36569; 80048; 80053; 85027; 85652; 86850; 86900; 86901; 87040; 87077; 87449; 87505; 96374; 97161; 97530; 97607; 99222; 99232; 99233; 99254; 99285; J1650; NC; 71046; 74019; 74022; 74176; 74177; 81003; 81015; 82040; 82247; 83630; 83735; 84075; 84100; 84132; 84134; 84460; 85025; 85610; 85730; 86140; 87070; 87086; 87186; 87205; 87324; 93970; 99223; 99284; J0131; J0696; J0744; J1200; J1720; J1885; J1941; J2060; J2405; J2543; J2765; J3480; J3490; J7509

== ENCOUNTER 2018-07-23 11:53 | Outpatient (REF) | payer MEDICARE, SELFPAY ==
[2018-07-23 15:31] LABS: Bilirubin Negative (Negative); Blood Negative (Negative); Clarity Sl Cloudy; Glucose Negative (Negative); Ketones Trace mg/dL (Negative); Leukocyte Esterase Trace (Negative); Nitrite Negative (Negative); Specific Gravity >= 1.030 (1.005-1.025); Urobilinogen 0.2 EU/dL (Up TO 0.2); pH 5.5 (5-8)
[2018-07-23 16:33] LABS: Epithelial Cells Few HPF (Negative); Other Cells Few Renal (Negative); RBC Negative (0-2)
[2018-07-23 16:34] LABS: Bacteria Rare HPF (Negative); C & S Indicated? Yes; Casts 0-2 Hyaline LPF (Negative); Crystals Negative HPF (Negative); Mucus Negative (Negative)
== END 2018-07-23 12:13 ==
LOC: LBN 11:53
PROVIDERS: Family Medicine; PCP Family Medicine; Visit Provider Family Medicine
DX: N39.0 Urinary tract infection, site not specified (principal); Z87.440 Personal history of urinary (tract) infections; R53.1 Weakness
CPT/HCPCS: 81003; 81015; 87086

== ENCOUNTER 2018-07-26 15:15 | Outpatient (REF) | payer MEDICARE, SELFPAY ==
[2018-07-26 17:54] LABS: Abs Immature Grans 0.03 k/cumm (0.0-0.09); Absolute Basophil Count 0.05 k/cumm (0.0-0.2); Absolute Lymphocyte Count 1.81 k/cumm (1.2-3.4); Absolute Monocyte Count 1.23 k/cumm (0.11-0.7); Absolute Neutrophil Count 5.98 k/cumm (1.2-6.7); Basophils % 0.5; Eosinophils % 1.1; HCT 32.2 % (36.0-46.0); Immature Grans % 0.3; Lymphocytes % 19.7; Mean Corp. HGB Concentration 31.1 g/dL (32.0-36.0); Mean Corpuscular Hemoglobin 28.7 pg (27.0-33.0); Mean Corpuscular Volume 92.5 fL (80-95); Mean Platelet Volume 11.3 fL (8.0-11.0); Monocytes % 13.4; Platelet Count 409 x1000/uL (130-400); RBC 3.48 m/cumm (4.00-5.20); RBC Distribution Width 16.3 % (11.7-14.6)
[2018-07-26 18:17] LABS: Anion Gap 11.1 mmol/L (3-11); CO2 28.9 mmol/L (21.0-32.0); Chloride 102 mmol/L (98-107); Potassium 3.6 mmol/L (3.5-5.1); Sodium 142 mmol/L (136-145)
== END 2018-07-26 15:35 ==
LOC: LBN 15:15
PROVIDERS: PCP Family Medicine; Visit Provider Family Medicine
DX: R65.10 Systemic inflammatory response syndrome (SIRS) of non-infectious origin without acute organ dysfunction (principal); N39.0 Urinary tract infection, site not specified; D72.829 Elevated white blood cell count, unspecified; R53.1 Weakness
CPT/HCPCS: 80051; 85025

== ENCOUNTER → 2018-07-27 13:02 | Outpatient (BNVA) | payer MEDICARE, SELFPAY | PROVIDERS: PCP Family Medicine; Referring Provider Family Medicine; Visit Provider Surgery | DX: T81.30XA Disruption of wound, unspecified, initial encounter (principal); M35.3 Polymyalgia rheumatica; E27.40 Unspecified adrenocortical insufficiency ==

== ENCOUNTER 2018-07-30 04:57 | Inpatient (IN) | payer MEDICARE, SELFPAY ==
[2018-07-30] VITALS (27 sets, daily range): BP systolic 141–166; BP diastolic 39–123; PULSE 70–85; RESP 14–34; TEMP 36.7–37.3; O2SAT 93–100
--- NOTE | 2018-07-30 04:54 | W.ED.GENAD ---
Discharge Plan Disposition Patient Disposition: [facility] INPATIENT Condition: Stable Discharge Details Chief Complaint: GenMedical Clinical Impression: General weakness, Hypomagnesemia, Acute hypokalemia, Adult failure to thrive, Acute dehydration Reason For Visit: LES Primary Care Provider: Liz Granado ED Provider: Huang Kern Home Meds and New Rx's Prescriptions: No Action isoniazid 300 mg tablet 300 mg PO DAILY RF: 0 cholecalciferol (vitamin D3) 1,000 unit tablet 500 unit PO DAILY RF: 0 methylprednisolone [Medrol] 4 mg tablet 4 mg PO DAILY Qty: 30 RF: 0 zolpidem 12.5 mg tablet,ext release multiphase 12.5 mg PO HS Qty: 30 RF: 0 pyridoxine (vitamin B6) 25 mg tablet 25 mg PO DAILY RF: 0 aspirin [Aspirin Low Dose] 81 MG tablet,delayed release (DR/EC) 81 mg PO DAILY RF: 0 folic acid 1 MG tablet 1 mg PO DAILY Qty: 90 RF: 4 ferrous gluconate 324 MG tablet 324 mg PO DAILY Qty: 30 RF: 4 mirtazapine 7.5 MG tablet 7.5 mg PO HS Qty: 90 RF: 2 levothyroxine 100 mcg tablet 100 mcg PO DAILY Qty: 90 RF: 2 bupropion HCl 150 mg tablet extended release 24 hr 150 mg PO QAM Qty: 90 RF: 2 bupropion HCl 300 mg tablet extended release 24 hr 300 mg PO QAM Qty: 90 RF: 2 ascorbic acid (vitamin C) [Vitamin C] 500 MG tablet 500 mg PO DAILY RF: 0 methotrexate sodium 2.5 mg Tablet 6 tab PO QWEEK RF: 0 pyridoxine (vitamin B6) [Vitamin B-6] 25 mg Tablet 1 tab PO DAILY RF: 0 sulfamethoxazole-trimethoprim [Bactrim DS] 800-160 mg Tablet 1 tab PO BID RF: 0 ascorbic acid (vitamin C) [Vitamin C] 500 mg Tablet 1 tab PO DAILY RF: 0 cholecalciferol (vitamin D3) [Vitamin D3] 1,000 unit Capsule 1,000 unit PO DAILY RF: 0 clotrimazole 1 % Ointment 45 g topical BID RF: 0 furosemide 20 mg tablet 40 mg PO BID RF: 0 polyethylene glycol 3350 [Miralax] 17 gram Powder In Packet 1 packet PO DAILY RF: 0 oxycodone 5 mg Capsule 5 mg PO Q6H PRN PRNRF: 0 nystatin 100,000 unit/gram Cream 60 g topical DAILY RF: 0 ibuprofen [IBU] 600 mg Tablet 600 mg PO Q6H PRN PRN (Reason: Pain) Qty: 30 RF: 0 potassium chloride 20 mEq tablet extended release 40 meq PO DAILY Qty: 14 RF: 0 Medical Decision Making <Hadley Briones MD - Last Filed: 07/30/18 06:16> 78 yo female who was hospitalized in June after having a colon perforation after a colonoscopy and then had to be readmitted, who comes in with general weakness. She states the weakness has been slowly worsening since she was in the hospital. She saw Dr. Garcia in the clinic on 07/27 and noted she was feeling weak at that time and has started her medrol dose pack for her chronic adrenal insufficiency after she was off steroids for 2 days. She states she has been taking this but despite this has general weakness and has fallen 3 times recently. Denies loc or hitting head. Has no headaches, neck pain, chest pain, sob, abd pain, leg or arm pain. Has no abdominal tenderness, wound vac in llq has no redness or tenderness surrounding it. She denies fevers or chills. Her symptoms I suspect are likely due to malnutrition and deconditioning from her hospitalization and she would likely benefit from rehab. Will evaluate for electrolyte abnormalities and obtain UA though she has no urinary symptoms unlikely uti causing her symptoms. Given lack of GI complaints do not feel additional imaging of the abdomen indicated at this time. No fevers or other infectious symptoms to suggest underlying infection such as pna or influenza at this time Pt remains stable, labs show mild hypomag and K which she had repletion with orally. Has some bacteria in her urine and positive leukocyte esterase, though denies any symptoms. She states she is on an abx since She saw Dr. Garcia for a uti she states but doesn't know the med and is not on her list. Given her lack of symptoms do not feel additional abx indicated at this time. My suspicion is that she is deconditioned and has malnutrition from her recent hospitalization and prcedures she required. She feels to weak to go home. She is open to going to rehab. Will have care management meet with her when they arrive. pt will be signed out to oncoming provider at change of shift after care management has met with the patient Differential Diagnosis electrolyte abnormality, deconditioning, malnutrition, anemia Lab Data Lab results reviewed: Yes I reviewed the patient's lab results. <Huang Kern DO - Last Filed: 07/30/18 09:32> The case was signed out to me my my colleague Dr. Todd Briones pending potential admission. Patient's clinical picture demonstrates evidence of hypomagnesemia, hypokalemia, dehydration, failure to thrive. I discussed the case with Dr. Schwarz and Dr. Almaraz. Through shared decision making process, it was felt that with the patient's multiple medical issues, her chronic wound VAC, her entire clinical picture that she is an inpatient candidate, and would not do well with only a single day observation. Patient will be admitted for correction of these issues, with eventual placement to a nursing facility. I have extensively reviewed the treatment plan with the patient. I have addressed all patient concerns at this time. I have also discussed the plan with the admitting physician and they agree with the current assessment and plan and have agreed to assume responsibility for the patient. All parties demonstrate verbal understanding and agreement with our assessment and plan at this time. HPI <Hadley Briones MD - Last Filed: 07/30/18 06:16> General Mode of arrival: EMS. Date/Time Provider Initiated Documentation: 07/30/18 04:59. Limitations to Documentation: no limitations. Information obtained by: patient and family. History of Present Illness 78 year old F presents to the emergency department with the chief complaint of weakness, described as moderate, Patient started experiencing this week(s) (4) and it has been constant. No relieving factors improve symptom(s), No exacerbating factors reported . Patient notes no other symptoms.. Patient did receive the following treatments prior to arrival, none Related Data Home Medications Medication Instructions Recorded Confirmed aspirin [Aspirin Low Dose] 81 mg PO DAILY tab-cap 12/20/12 07/30/18 ascorbic acid (vitamin C) [Vitamin 500 mg PO DAILY 01/01/17 07/30/18 C] ferrous gluconate 324 mg PO DAILY #30 tab 08/27/17 07/30/18 folic acid 1 mg PO DAILY #90 tab-cap 08/27/17 07/30/18 mirtazapine 7.5 mg PO HS #90 tab-cap 02/02/18 07/30/18 levothyroxine 100 mcg tablet 100 mcg PO DAILY #90 tab-cap 05/14/18 07/30/18 pyridoxine (vitamin B6) 25 mg 25 mg PO DAILY 05/19/18 07/30/18 tablet cholecalciferol (vitamin D3) 1,000 500 unit PO DAILY tab 06/14/18 07/30/18 unit tablet isoniazid 300 mg tablet 300 mg PO DAILY 06/14/18 07/30/18 ibuprofen [IBU] 600 mg PO Q6H PRN PRN #30 tab 07/05/18 07/30/18 potassium chloride 40 meq PO DAILY #14 tab 07/15/18 07/30/18 bupropion HCl XL 150 mg 24 hr 150 mg PO QAM #90 tab 07/22/18 07/30/18 tablet, extended release bupropion HCl XL 300 mg 24 hr 300 mg PO QAM #90 tab 07/22/18 07/30/18 tablet, extended release methylprednisolone 4 mg tablet 4 mg PO DAILY #30 tab 07/27/18 07/30/18 zolpidem ER 12.5 mg 12.5 mg PO HS #30 tab 07/27/18 07/30/18 tablet,extended release,multiphase ascorbic acid (vitamin C) [Vitamin 1 tab PO DAILY 07/30/18 07/30/18 C] cholecalciferol (vitamin D3) 1,000 unit PO DAILY 07/30/18 07/30/18 [Vitamin D3] clotrimazole 45 g TOPICAL BID 07/30/18 07/30/18 furosemide 40 mg PO BID 07/30/18 07/30/18 methotrexate sodium 6 tab PO QWEEK 07/30/18 07/30/18 nystatin 60 g TOPICAL DAILY 07/30/18 07/30/18 oxycodone 5 mg PO Q6H PRN PRN 07/30/18 07/30/18 polyethylene glycol 3350 [Miralax] 1 packet PO DAILY 07/30/18 07/30/18 pyridoxine (vitamin B6) [Vitamin 1 tab PO DAILY 07/30/18 07/30/18 B-6] sulfamethoxazole-trimethoprim 1 tab PO BID 07/30/18 07/30/18 [Bactrim DS] Previous Rx's Medication Instructions Recorded ferrous gluconate 324 mg PO DAILY #30 tab 08/27/17 folic acid 1 mg PO DAILY #90 tab-cap 08/27/17 mirtazapine 7.5 mg PO HS #90 tab-cap 02/02/18 levothyroxine 100 mcg tablet 100 mcg PO DAILY #90 tab-cap 05/14/18 ibuprofen [IBU] 600 mg PO Q6H PRN PRN #30 tab 07/05/18 potassium chloride 40 meq PO DAILY #14 tab 07/15/18 bupropion HCl XL 150 mg 24 hr 150 mg PO QAM #90 tab 07/22/18 tablet, extended release bupropion HCl XL 300 mg 24 hr 300 mg PO QAM #90 tab 07/22/18 tablet, extended release methylprednisolone 4 mg tablet 4 mg PO DAILY #30 tab 07/27/18 zolpidem ER 12.5 mg 12.5 mg PO HS #30 tab 07/27/18 tablet,extended release,multiphase Allergies Allergy/AdvReac Type Severity Reaction Status Date / Time banana Allergy Intermediate Other (See Unverified 07/27/18 13:10 Comment) cucumber Allergy Intermediate Other (See Unverified 07/27/18 13:10 Comment) Iodinated Contrast- Oral and Allergy Unknown SWELLING; Unverified 07/27/18 13:10 IV Dye RASH [Iodinated Contrast Media - IV Dye] chloramphenicol AdvReac Severe KIDNEY Unverified 07/27/18 13:10 FAILURE tetracycline AdvReac Severe KIDNEY Unverified 07/27/18 13:10 FAILURE melon AdvReac Intermediate Cantaloupe-Abd Verified 07/27/18 13:10 pain, diarrhea ADHESIVE TAPE Allergy Intermediate takes skin Uncoded 07/27/18 13:10 off SUTURE MATERIAL Allergy Intermediate Purluent Uncoded 07/27/18 13:10 Drainage General JOSHUA: 2 Review of Systems <Hadley Briones MD - Last Filed: 07/30/18 06:16> Review of Systems All systems reviewed & are unremarkable except as noted in HPI and below Constitutional Denies chills and Denies fever(s) Eyes Denies loss of vision ENT Denies change in voice Cardiovascular Denies chest pain and Denies dyspnea Respiratory Denies dyspnea Gastrointestinal Denies abdominal pain, Denies nausea and Denies vomiting Genitourinary Denies dysuria Musculoskeletal Denies joint swelling Integumentary/Breasts Denies rash Neurologic Denies loss of vision Endocrine Denies cold intolerance and Denies heat intolerance PFSH <Hadley Briones MD - Last Filed: 07/30/18 06:16> Medical History Raynaud's disease (Acute) Primary osteoarthritis of left knee (Acute 07/30/15) PMR (polymyalgia rheumatica) (Chronic 01/15/16) Osteoporosis (Acute) Osteopenia (Acute 07/30/16) Obstructive sleep apnea syndrome (Acute) Non-alcoholic fatty liver disease (Acute) Memory impairment (Acute 06/18/94) Increased body mass index (Acute) Hypothyroidism (Acute 04/05/12) Fracture, calcaneus closed (Acute 09/19/14) Excessive sweating (Acute 06/02/16) Depressive disorder (Acute) Colon polyp (Acute 06/28/18) Cataract (Acute 07/28/14) Benign paroxysmal positional vertigo (Acute) Abdominal pain (Acute 10/31/13) Insomnia (Acute) Tuberculosis (Chronic) Family History Mother Heart disease Father Stroke Sister No problems noted. Brother No problems noted. Grandfather Essential hypertension Heart disease Grandfather No problems noted. 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/Tobacco Use Status: Former Tobacco Use alcohol intake: current alcohol intake frequency: a few times a month additional social history: DECREASED VISION Exam <Hadley Briones MD - Last Filed: 07/30/18 06:16> Const General: no acute distress Orientation: alert HENMT Head: normal to inspection Ears: external ears normal General nose exam: external nose normal Mouth: moist mucous membranes Eyes General: appearance normal, both eyes and all related structures Neck Neck: normal visual inspection Resp Effort & Inspection: normal respiratory effort and able to speak in complete sentences Cardio Rate: regular rate Skin General skin exam: no rashes or lesions noted Neuro General: alert and oriented x3 Extrem General: normal to inspection Psych Mental Status: mental status grossly normal
[2018-07-30 05:19] LABS: Abs Immature Grans 0.05 k/cumm (0.0-0.09); Absolute Basophil Count 0.03 k/cumm (0.0-0.2); Absolute Eosinophil Count 0.08 k/cumm (0.0-0.7); Absolute Lymphocyte Count 1.88 k/cumm (1.2-3.4); Absolute Monocyte Count 1.38 k/cumm (0.11-0.7); Absolute Neutrophil Count 7.25 k/cumm (1.2-6.7); Basophils % 0.3; Eosinophils % 0.7; HCT 31.3 % (36.0-46.0); HGB 9.9 g/dL (12.0-15.5); Immature Grans % 0.5; Lymphocytes % 17.6; Mean Corp. HGB Concentration 31.6 g/dL (32.0-36.0); Mean Corpuscular Hemoglobin 28.3 pg (27.0-33.0); Mean Corpuscular Volume 89.4 fL (80-95); Monocytes % 12.9; Platelet Count 336 x1000/uL (130-400); RBC Distribution Width 15.8 % (11.7-14.6); White Blood Cell Count 10.67 k/cumm (4.4-10.8)
[2018-07-30] MEDS: Normal Saline 250 ML 500 ML IV (05:31)
[2018-07-30 05:35] LABS: Bilirubin Negative (Negative); Blood Trace-intact (Negative); Clarity Clear; Glucose Negative (Negative); Ketones Negative (Negative); Leukocyte Esterase Trace (Negative); Nitrite Negative (Negative); Urobilinogen 0.2 EU/dL (Up TO 0.2); pH 6.5 (5-8)
[2018-07-30 05:36] LABS: ALT 41 U/L (12-78); AST 27 U/L (15-37); Albumin 3.1 g/dL (3.4-5.0); Alkaline Phosphatase 95 U/L (46-116); Anion Gap 13.9 mmol/L (3-11); BUN 11 mg/dL (7-18); Bilirubin, Total 0.3 mg/dL (0.2-1.0); CO2 24.1 mmol/L (21.0-32.0); CREATININE 1.08 mg/dL (0.55-1.02); Chloride 101 mmol/L (98-107); Estimated GFR 49.19 (mL/min/1.73m2); Glucose 82 mg/dL (70-100); Sodium 139 mmol/L (136-145); Total Protein 7.4 g/dL (6.4-8.2)
[2018-07-30 05:37] LABS: Magnesium 1.7 mg/dL (1.8-2.4)
[2018-07-30] MEDS: Potassium Chloride 20 MEQ TABCR 40 MEQ PO (05:42)
[2018-07-30] MEDS: Magnesium Oxide 400 MG TAB PO (05:43)
[2018-07-30 05:44] LABS: Bacteria Few HPF (Negative); Crystals Negative HPF (Negative); Epithelial Cells Few HPF (Negative); Mucus Negative (Negative); Other Cells Moderate Renal (Negative); RBC 0-2 (0-2)
[2018-07-30 05:44] LABS: INR 1.1 (0.9-1.1); PTT Activated 20.8 sec (21.0-31.4); Prothrombin Time 10.9 sec (9.3-11.0)
[2018-07-30 05:45] LABS: C & S Indicated? Yes; Casts Negative LPF (Negative)
[2018-07-30 05:50] LABS: TSH (W/Ref FT4) 1.51 uIU/mL (0.358-3.74)
--- NOTE | 2018-07-30 07:44 | NUR.NOTE ---
Nursing Note: This RN assisted pt. UOOB to, required heavy assist. Pt. eating breakfast, sitting upright.
--- NOTE | 2018-07-30 09:04 | NUR.NOTE ---
Nursing Note: Pt. ate full breakfast, other than uncomfortable in bed, pt. has no complaints. Awaiting placement still. Call guajardo in reach, supportive at the bedside.
--- NOTE | 2018-07-30 09:50 | PDOC.ERCMPRO ---
Care Management Progress Note 07/30-Riddhi presents to the ED this am with increasing weakness. At first presentation, it was thought that Riddhi would need halfway placement. Dr. Brioens requested that this CM speak with the patient and her spouse Jason. Both are receptive to halfway placement if she does not need admission. Discussed local nursing homes. Riddhi and Jason would like her to be as close as possible as he does not like driving long distances. Discussed [facility] not taking admissions. Jason was receptive to the [facility] referral. Discussed [facility] and [facility] as well. Jason would prefer the [facility] if possible because of distance. Patients wound vac dressing needs to be changed today. Called [facility] and spoke with Re. Re faxed over the current medication list. This CM called [facility] and spoke with Sloane, no beds; [facility]; Called [facility] and spoke with Alyssa, no beds; Called the [facility] and spoke with Maite. Maite stated that they do not have any beds today but would have a female bed on Thursday. Maite requesting referral today to confirm that the [facility] could medically accept. Patient does have a wound vac. Referral faxed to the [facility]. Dr. Kern has spoken with Surgeon Dr. Schwarz as well as to hospitalist Dr. Lugo. Plan is to admit patient for acute dehydration, hypomagnesia, and hypokalemia. This CM spoke with Caitlin, clinical coordinator, about the wound vac dressing change. Riddhi's Jason was going to go get the supplies to change the dressing. Caitlin stated that Riddhi would be using the hospital wound vac while she is a patient. Jason is here and is aware that he does not have to bring in wound vac supplies. Jason is going to go home and get some rest. This CM gave report to inpatient CM [place].
--- NOTE | 2018-07-30 10:17 | CMPROGNOTE_ITS ---
Care Management Progress Note 07/30-Riddhi presents to the ED this am with increasing weakness. At first presentation, it was thought that Riddhi would need half-way placement. Dr. Briones requested that this CM speak with the patient and her spouse Jason. Both are receptive to half-way placement if she does not need admission. Discussed local nursing homes. Riddhi and Jason would like her to be as close as possible as he does not like driving long distances. Discussed [facility] not taking admissions. Jason was receptive to the [facility] referral. Discussed [facility] and [facility] as well. Jason would prefer the [facility] if possible because of distance. Patients wound vac dressing needs to be changed today. Called [facility] and spoke with Re. Re faxed over the current medication list. This CM called [facility] and spoke with Sloane, no beds; [facility]; Called [facility] and spoke with Alyssa, no beds; Called the [facility] and spoke with Maite. Maite stated that they do not have any beds today but would have a female bed on Thursday. Maite requesting referral today to confirm that the [facility] could medically accept. Patient does have a wound vac. Referral faxed to the [facility]. Dr. Kern has spoken with Surgeon Dr. Schwarz as well as to hospitalist Dr. Sohail frazier. Plan is to admit patient for acute dehydration, hypomagnesia, and hypokalemia. This CM spoke with Caitlin, clinical coordinator, about the wound vac dressing change. Riddhi's Jason was going to go get the supplies to change the dressing. Caitlin stated that Riddhi would be using the hospital wound vac while she is a patient. Jason is here and is aware that he does not have to bring in wound vac supplies. Jason is going to go home and get some rest. This CM gave report to inpatient CM [place].
--- NOTE | 2018-07-30 10:34 | NUR.NOTE ---
Nursing Note: Pt. is sleeping, RR WNL.
--- NOTE | 2018-07-30 10:53 | NUR.NOTE ---
Nursing Note: Report called to Caitlin SIMENTAL, on med surge.
[2018-07-30] MEDS: Hydrocortisone SOD SUC. 100 MG VIAL IVP (14:50)
[2018-07-30] MEDS: Normal Saline Flush 10 ML SYR IVP ×2 (14:50→19:41)
[2018-07-30] MEDS: Enoxaparin 40 MG/0.4 ML SYR SC (16:00)
--- NOTE | 2018-07-30 16:39 | HPE_ITS ---
Addendum entered and electronically signed by Mena Lugo M.D. 07/30/18 20:48: Patient personally seen and history reviewed with Earlene Juan NP. Agree with assessment and plan as below. Patient ran out of her home steroids and presented with borderline low sodium, serum glucose, and weak. It is possible that with stress dose steroids, she will regain her strength. PT/OT is indicated to evaluate for subacute rehab placement. Will follow up on Urine culture. UA very borderline. Original Note: Date of service: 07/30/18 Time of Service: 16:39 Assessment and Plan (1) Acute adrenal insufficiency: Current visit: No Status: Acute Acute on Chronic adrenal insufficiency. Reports recent falls and increased weakness. Pt was restarted on Medrol dose pack by Dr Garcia on 07/27/18. Monitor daily electrolytes plan for repletition as neccessary. (2) Hypokalemia: Current visit: Yes Status: Acute Monitor CMP daily and replete as needed (3) Hypomagnesemia: Current visit: No Status: Acute Monitor daily Magnesium level and replete as needed. (4) Weakness: Current visit: Yes Status: Acute Place on fall precautions. PT/OT consult ordered. Thank you PT/OT for your assessment and recommendations. (5) Open abdominal wall wound: Current visit: Yes Status: Acute Healing abdominal wound related to colon resection and anastomosis from 06/28/18. Wound vac in place continue with current therapy. Continue to monitor for signs/symptoms of infection. (6) Dehydration: Current visit: Yes Status: Acute Daily CMP labs. Monitor daily intake and output. If poor intake consider IV rehydration. (7) FTT (failure to thrive) in adult: Current visit: Yes Status: Acute Monitor nutritional and fluid intake status. PT/OT consult ordered for assessment and strength training. Plan for Rehab placement. Mrs Manuel is a 78yo female with PMHx of a colon perforation during a colonoscopy in June of 2018, s/p partial colectomy, as well as history of chronic adrenal insufficiency due to steroid dependence for PMR, latent TB on isoniazid therapy and RIZWAN, who presented to [facility] emergency room 07/30/18 with complaints of increased weakness and falls at home since 07/26/18. The patient currently has an abdominal wound vac due to the colon resection and reanastomosis performed due to the perforation. Additionally, Mrs. Manuel was seen by Dr Garcia in the clinic on 07/27 and noted she was feeling weak at that time and has started her medrol dose pack for her chronic adrenal insufficiency after she was off steroids for 2 days. She states she has been taking this but despite this has general weakness and has fallen 3 times recently in last 3 days. She denies LOC or hitting head. Patient lives with her and is finding that due to recent frequent falls she has become hard to manage by himself at home. After evaluation done by the emergency room, the patient has increased weakness related to hypokalemia, hypomagnesemia, dehydration, and failure to thrive. The plan is to treat her adrenal insufficiency with IV hydrocortisone, monitor and treat electrolyte imbalances and to evaluate weakness via PT/OT consult with referral for rehab unit as an inpatient. Review of Systems Review of Systems All systems reviewed & are unremarkable except as noted in HPI and below PFSH Medical History Raynaud's disease (Acute) Primary osteoarthritis of left knee (Acute 07/30/15) PMR (polymyalgia rheumatica) (Chronic 01/15/16) Osteoporosis (Acute) Osteopenia (Acute 07/30/16) Obstructive sleep apnea syndrome (Acute) Non-alcoholic fatty liver disease (Acute) Memory impairment (Acute 06/18/94) Increased body mass index (Acute) Hypothyroidism (Acute 04/05/12) Fracture, calcaneus closed (Acute 09/19/14) Excessive sweating (Acute 06/02/16) Depressive disorder (Acute) Colon polyp (Acute 06/28/18) Cataract (Acute 07/28/14) Benign paroxysmal positional vertigo (Acute) Abdominal pain (Acute 10/31/13) Insomnia (Acute) Tuberculosis (Chronic) Surgical History H/O dilation and curettage (Acute) S/P tonsillectomy (Acute) Abdominal hysterectomy (~1975) Appendectomy Bilateral salpingectomy with oophorectomy (~1975) Colonoscopy - MAC EGD - MAC (~2003) Laparoscopic, Ovarian Cystectomy Rotator Cuff Repair Family History Mother Heart disease Father Stroke Sister No problems noted. Brother No problems noted. Grandfather Essential hypertension Heart disease Grandfather No problems noted. 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/Tobacco Use Status: Former Tobacco Use alcohol intake: current alcohol intake frequency: a few times a month additional social history: DECREASED VISION Meds Home Medications Medication Instructions Recorded Confirmed Type aspirin [Aspirin Low Dose] 81 mg PO DAILY tab-cap 12/20/12 07/30/18 History ascorbic acid (vitamin C) [Vitamin 500 mg PO DAILY 01/01/17 07/30/18 History C] ferrous gluconate 324 mg PO DAILY #30 tab 08/27/17 07/30/18 Rx folic acid 1 mg PO DAILY #90 tab-cap 08/27/17 07/30/18 Rx mirtazapine 7.5 mg PO HS #90 tab-cap 02/02/18 07/30/18 Rx levothyroxine 100 mcg tablet 100 mcg PO DAILY #90 tab-cap 05/14/18 07/30/18 Rx pyridoxine (vitamin B6) 25 mg 25 mg PO DAILY 05/19/18 07/30/18 History tablet cholecalciferol (vitamin D3) 1,000 500 unit PO DAILY tab 06/14/18 07/30/18 History unit tablet isoniazid 300 mg tablet 300 mg PO DAILY 06/14/18 07/30/18 History ibuprofen [IBU] 600 mg PO Q6H PRN PRN #30 tab 07/05/18 07/30/18 Rx potassium chloride 40 meq PO DAILY #14 tab 07/15/18 07/30/18 Rx bupropion HCl XL 150 mg 24 hr 150 mg PO QAM #90 tab 07/22/18 07/30/18 Rx tablet, extended release bupropion HCl XL 300 mg 24 hr 300 mg PO QAM #90 tab 07/22/18 07/30/18 Rx tablet, extended release methylprednisolone 4 mg tablet 4 mg PO DAILY #30 tab 07/27/18 07/30/18 Rx zolpidem ER 12.5 mg 12.5 mg PO HS #30 tab 07/27/18 07/30/18 Rx tablet,extended release,multiphase ascorbic acid (vitamin C) [Vitamin 1 tab PO DAILY 07/30/18 07/30/18 History C] cholecalciferol (vitamin D3) 1,000 unit PO DAILY 07/30/18 07/30/18 History [Vitamin D3] clotrimazole 45 g TOPICAL BID 07/30/18 07/30/18 History furosemide 40 mg PO BID 07/30/18 07/30/18 History methotrexate sodium 6 tab PO QWEEK 07/30/18 07/30/18 History nystatin 60 g TOPICAL DAILY 07/30/18 07/30/18 History oxycodone 5 mg PO Q6H PRN PRN 07/30/18 07/30/18 History polyethylene glycol 3350 [Miralax] 1 packet PO DAILY 07/30/18 07/30/18 History pyridoxine (vitamin B6) [Vitamin 1 tab PO DAILY 07/30/18 07/30/18 History B-6] sulfamethoxazole-trimethoprim 1 tab PO BID 07/30/18 07/30/18 History [Bactrim DS] Allergies Allergy/AdvReac Type Severity Reaction Status Date / Time banana Allergy Intermediate Other (See Unverified 07/27/18 13:10 Comment) cucumber Allergy Intermediate Other (See Unverified 07/27/18 13:10 Comment) Iodinated Contrast- Oral and Allergy Unknown SWELLING; Unverified 07/27/18 13:10 IV Dye RASH [Iodinated Contrast Media - IV Dye] chloramphenicol AdvReac Severe KIDNEY Unverified 07/27/18 13:10 FAILURE tetracycline AdvReac Severe KIDNEY Unverified 07/27/18 13:10 FAILURE melon AdvReac Intermediate Cantaloupe-Abd Verified 07/27/18 13:10 pain, diarrhea ADHESIVE TAPE Allergy Intermediate takes skin Uncoded 07/27/18 13:10 off SUTURE MATERIAL Allergy Intermediate Purluent Uncoded 07/27/18 13:10 Drainage Exam Const General: cooperative, healthy appearing, no acute distress and well hydrated Nutritional Appearance: well nourished Orientation: alert, awake and oriented x3 HENMT Head: normocephalic Mouth: moist mucous membranes Eyes General: appearance normal, both eyes and all related structures EOM: EOM intact bilaterally Resp Effort & Inspection: normal respiratory effort and able to speak in complete sentences Auscultation: clear to auscultation bilaterally Cardio Rate: regular rate Rhythm: regular rhythm Heart Sounds: S1 normal and S2 normal Pulses: normal peripheral pulses GI Palpation: soft Auscultation: normal bowel sounds Skin Other: Approximately 3cm midline suprapubic abdominal wound with wound vac dressing intact. Neuro Cranial Nerves: CN's II-XI intact bilaterally Cognition: normal cognition Speech: speech normal Motor: strength 5/5 throughout Sensory Exam: no sensory deficits noted Extrem General: no clubbing, cyanosis or edema Psych Appearance: grossly normal and well kempt Mental Status: mental status grossly normal Results Labs : 07/30/18 05:07 07/30/18 05:07 Laboratory Results - last 24 hr 07/30/18 07/30/18 07/30/18 05:07 05:07 05:07 WBC 10.67 RBC 3.50 L Hgb 9.9 L Hct 31.3 L MCV 89.4 MCH 28.3 MCHC 31.6 L RDW 15.8 H Plt Count 336 MPV 10.0 Immature Gran % 0.5 Neutrophils % 68.0 Lymphocytes % 17.6 Monocytes % 12.9 Eosinophils % 0.7 Basophils % 0.3 Absolute Neutrophils 7.25 H Absolute Lymphocytes 1.88 Absolute Monocytes 1.38 H Absolute Eosinophils 0.08 Absolute Basophils 0.03 PT INR APTT Sodium 139 Potassium 3.0 L Chloride 101 Carbon Dioxide 24.1 Anion Gap 13.9 H BUN 11 Creatinine 1.08 H Estimated GFR/1.73 m2 49.19 Glucose 82 Calcium 9.0 Magnesium 1.7 L Total Bilirubin 0.3 AST 27 ALT 41 Alkaline Phosphatase 95 Total Protein 7.4 Albumin 3.1 L TSH Urine Color Urine Clarity Urine pH Ur Specific [place] Urine Protein Urine Ketones Urine Blood Urine Nitrite Urine Bilirubin Urine Urobilinogen Ur Leukocyte Esterase Urine RBC Urine WBC Ur Epithelial Cells Urine Crystals Urine Bacteria Urine Casts Urine Mucus Urine Other Ur Culture Indicated? Urine Glucose 07/30/18 07/30/18 07/30/18 05:07 05:07 05:30 WBC RBC Hgb Hct MCV MCH MCHC RDW Plt Count MPV Immature Gran % Neutrophils % Lymphocytes % Monocytes % Eosinophils % Basophils % Absolute Neutrophils Absolute Lymphocytes Absolute Monocytes Absolute Eosinophils Absolute Basophils PT 10.9 INR 1.1 APTT 20.8 L Sodium Potassium Chloride Carbon Dioxide Anion Gap BUN Creatinine Estimated GFR/1.73 m2 Glucose Calcium Magnesium Total Bilirubin AST ALT Alkaline Phosphatase Total Protein Albumin TSH 1.51 Urine Color Yellow Urine Clarity Clear Urine pH 6.5 Ur Specific [place] 1.010 Urine Protein Negative Urine Ketones Negative Urine Blood Trace-intact H Urine Nitrite Negative Urine Bilirubin Negative Urine Urobilinogen 0.2 Ur Leukocyte Esterase Trace H Urine RBC 0-2 Urine WBC 3-5 Ur Epithelial Cells Few Urine Crystals Negative Urine Bacteria Few Urine Casts Negative Urine Mucus Negative Urine Other Moderate renal Ur Culture Indicated? Yes Urine Glucose Negative Last Vital Signs Temp 37.3 C 07/30/18 16:19 Pulse 76 07/30/18 16:19 Resp 19 07/30/18 16:19 BP 160/72 H 07/30/18 16:19 Pulse Ox 97 07/30/18 16:19
[2018-07-30] MEDS: Hydrocortisone SOD SUC. 100 MG VIAL 50 MG IVP (19:41)
[2018-07-30] MEDS: Mirtazapine 15 MG TAB 7.5 MG PO (21:08)
[2018-07-30] MEDS: Zolpidem 5 MG TAB PO (21:52)
[2018-07-31] MEDS: Hydrocortisone SOD SUC. 100 MG VIAL 50 MG IVP ×4 (01:25→19:55)
[2018-07-31] MEDS: Normal Saline Flush 10 ML SYR IVP ×2 (01:25→09:55)
[2018-07-31] MEDS: Ibuprofen 600 MG TAB PO (01:25)
[2018-07-31 01:43] VITALS: BP 150/66; PULSE 85; RESP 18; TEMP 35.8; O2SAT 96
[2018-07-31] MEDS: Levothyroxine 100 MCG TAB PO (06:37)
[2018-07-31] MEDS: Acetaminophen 325 MG TAB PO (07:09)
[2018-07-31 07:43] LABS: Abs Immature Grans 0.01 k/cumm (0.0-0.09); Absolute Basophil Count 0.01 k/cumm (0.0-0.2); Absolute Monocyte Count 0.53 k/cumm (0.11-0.7); Absolute Neutrophil Count 4.56 k/cumm (1.2-6.7); Basophils % 0.2; HCT 30.2 % (36.0-46.0); HGB 9.4 g/dL (12.0-15.5); Immature Grans % 0.2; Lymphocytes % 21.5; Mean Corp. HGB Concentration 31.1 g/dL (32.0-36.0); Mean Corpuscular Hemoglobin 28.1 pg (27.0-33.0); Mean Corpuscular Volume 90.4 fL (80-95); Mean Platelet Volume 10.6 fL (8.0-11.0); Monocytes % 8.1; Platelet Count 321 x1000/uL (130-400); RBC 3.34 m/cumm (4.00-5.20); RBC Distribution Width 15.8 % (11.7-14.6); White Blood Cell Count 6.51 k/cumm (4.4-10.8)
[2018-07-31 07:48] LABS: Anion Gap 10.6 mmol/L (3-11); BUN 12 mg/dL (7-18); CO2 22.4 mmol/L (21.0-32.0); CREATININE 0.86 mg/dL (0.55-1.02); Calcium 9.3 mg/dL (8.5-10.1); Chloride 107 mmol/L (98-107); Glucose 124 mg/dL (70-100); Magnesium 2.2 mg/dL (1.8-2.4); Potassium 3.7 mmol/L (3.5-5.1); Sodium 140 mmol/L (136-145)
[2018-07-31 08:40] VITALS: BP 123/71; PULSE 60; RESP 16; TEMP 36; O2SAT 97
[2018-07-31] MEDS: Furosemide 20 MG TAB 40 MG PO ×2 (09:51→19:55)
[2018-07-31] MEDS: Ascorbic Acid 500 MG TAB PO (09:51)
[2018-07-31] MEDS: Folic Acid 1 MG TAB PO (09:51)
[2018-07-31] MEDS: Aspirin E.C. 81 MG TABEC PO (09:51)
[2018-07-31] MEDS: Ferrous Gluconate 324 MG TAB PO (09:52)
[2018-07-31] MEDS: Pantoprazole 40 MG TABCR PO (09:52)
[2018-07-31] MEDS: Nystatin CREAM 15 GM TUBE TP (09:53)
[2018-07-31] MEDS: Polyethylene Glycol 3350 17 GM PACKET PO (09:53)
[2018-07-31] MEDS: Clotrimazole 1% 15 GM TUBE TP ×2 (09:54→21:56)
--- NOTE | 2018-07-31 10:56 | PT.INIE ---
Date of service: 07/31/18 Time of Service: 09:45 PT Notes Inpatient Physical Therapy Evaluation Date: 07/31/18 Referring Doctor: Earlene Juan PT Orders: PT CONSULT: Evaluate for falls and weakness Precautions: Bessie (patient has abdominal wound vac) Patient Profile/Admitting Diagnosis: Orders received for this 78-year-old patient admitted due to recent weakness and increased falls at home since 07/26/2018. Patient has had a somewhat medically challenging month. Back in June she had a colonoscopy with a perforation of her colon thus requiring partial resection of colon. She has chronic renal insufficiency at baseline and has steroid dependence for PMR. Wound VAC is in place through the abdomen due to the colon resection. PMHX: Medical History Raynaud's disease (Acute) Primary osteoarthritis of left knee (Acute 07/30/15) PMR (polymyalgia rheumatica) (Chronic 01/15/16) Osteoporosis (Acute) Osteopenia (Acute 07/30/16) Obstructive sleep apnea syndrome (Acute) Non-alcoholic fatty liver disease (Acute) Memory impairment (Acute 06/18/94) Increased body mass index (Acute) Hypothyroidism (Acute 04/05/12) Fracture, calcaneus closed (Acute 09/19/14) Excessive sweating (Acute 06/02/16) Depressive disorder (Acute) Colon polyp (Acute 06/28/18) Cataract (Acute 07/28/14) Benign paroxysmal positional vertigo (Acute) Abdominal pain (Acute 10/31/13) Insomnia (Acute) Tuberculosis (Chronic) Surgical History H/O dilation and curettage (Acute) S/P tonsillectomy (Acute) Abdominal hysterectomy (~1975) Appendectomy Bilateral salpingectomy with oophorectomy (~1975) Colonoscopy - MAC EGD - MAC (~2003) Laparoscopic, Ovarian Cystectomy Rotator Cuff Repair Social History/Home Situation: Patient lives locally in the area with her however due to her recent functional state it has been harder for her to be managed by her at home Equipment Owned/DME: Patient has a 4 wheel walker Subjective: Patient states that she is feeling okay today other than some mild pain that is developing through the knees bilaterally Objective: Alert and well oriented pleasant woman sitting up in bed giving herself a sponge bath and currently no acute distress Mental Status: Alert and oriented x3 to person place and time Pain: Mild pain to the knees bilaterally ROM: Right Upper Extremity: WFL for active motion assessment Left Upper Extremity: WFL for active motion assessment Right Lower Extremity: WFL for active motion assessment Left Lower Extremity: WFL for active motion assessment Strength: Right Upper Extremity: 5/5 globally Left Upper Extremity: 5/5 globally Right Lower Extremity: 5/5 globally patient with pain upon quadriceps testing Left Lower Extremity: 5/5 globally patient with pain upon quadriceps testing Bed Mobility/Transfers: Supervision Supine-sit: CGA Sit-stand: CGA Stand-sit: CGA Gait: Ambulates up to 10 feet with contact-guard assist and front wheel walker Balance: Static Sitting: Normal Dynamic Sitting: Normal Static Standing: Good Dynamic Standing: Fair Special Tests: Mobility Limitations Standardized Measure [facility] AM-PAC 6 clicks Basic Mobility Inpatient Short Form: Raw Score: 18 Standardized Score: 43.63 CMS Score: 46.58% CMS Modifier: CK Informed Consent/Education: Patient instructed in purpose of PT consult and plan of care. ASSESSMENT: Patient is a 78-year-old female with history of good physical health Admitted with unsteadiness, recent falls, weakness all stemming from partial colon resection Patient presents with the following impairment level findings: Mild deficits in gait and balance stability, ambulation intolerance, mild assistance needed for transfers for safety Pt will benefit from skilled therapy intervention in order to remediate her functional limtations and restore patient to a more appropriate and stable functional level. Impairments are contributing to the following functional limitations: AMPA score 18 CMS Score: 46.58% Patient is assessed as a moderate complexity initial evaluation [id number] based on the following: History: see above Examination: see above Presentation: Evolving Decision Making: Moderate based on the impact score of 46.58% Goals: Goals X1 week 1. Supine-Sit Independent 2. Sit-Supine Independent 3. Sit-Stand Independent 4. Stand-Sit Independent 5. Bed-Chair Independent 6. Gait independent 300 feet with use of least restrictive assistive device 7: Independent in Home program Plan of Care/Treatment Plan: 1-2x/day, 7 days/week x 1 week. Plan of care has been reviewed with the MACHINE DEICER ELEMENT WINDER providing the service under Physical Therapy direction. Initiate Physical Therapy intervention for strengthening, bed mobility, transfers, gait, stairs, balance training, use of assistive device. DISCHARGE RECOMMENDATIONS: To home in the care of her once medically stable if independent goals are achieved TREATMENT CODE/TIME: Moderate complexity initial evaluation [id number] time of treatment 9:45 AM with 20 minutes of direct patient care G Codes walking mobility moving around GP?[id number]?CK with a goal of GP?[id number]?CJ
--- NOTE | 2018-07-31 11:04 | IN_ITS ---
Date of service: 07/31/18 Time of Service: 09:45 PT Notes Inpatient Physical Therapy Evaluation Date: 07/31/18 Referring Doctor: Earlene Juan PT Orders: PT CONSULT: Evaluate for falls and weakness Precautions: Bessie (patient has abdominal wound vac) Patient Profile/Admitting Diagnosis: Orders received for this 78-year-old patient admitted due to recent weakness and increased falls at home since 07/26/2018. Patient has had a somewhat medically challenging month. Back in June she had a colonoscopy with a perforation of her colon thus requiring partial resection of colon. She has chronic renal insufficiency at baseline and has steroid dependence for PMR. Wound VAC is in place through the abdomen due to the colon resection. PMHX: Medical History Raynaud's disease (Acute) Primary osteoarthritis of left knee (Acute 07/30/15) PMR (polymyalgia rheumatica) (Chronic 01/15/16) Osteoporosis (Acute) Osteopenia (Acute 07/30/16) Obstructive sleep apnea syndrome (Acute) Non-alcoholic fatty liver disease (Acute) Memory impairment (Acute 06/18/94) Increased body mass index (Acute) Hypothyroidism (Acute 04/05/12) Fracture, calcaneus closed (Acute 09/19/14) Excessive sweating (Acute 06/02/16) Depressive disorder (Acute) Colon polyp (Acute 06/28/18) Cataract (Acute 07/28/14) Benign paroxysmal positional vertigo (Acute) Abdominal pain (Acute 10/31/13) Insomnia (Acute) Tuberculosis (Chronic) Surgical History H/O dilation and curettage (Acute) S/P tonsillectomy (Acute) Abdominal hysterectomy (~1975) Appendectomy Bilateral salpingectomy with oophorectomy (~1975) Colonoscopy - MAC EGD - MAC (~2003) Laparoscopic, Ovarian Cystectomy Rotator Cuff Repair Social History/Home Situation: Patient lives locally in the area with her however due to her recent functional state it has been harder for her to be managed by her at home Equipment Owned/DME: Patient has a 4 wheel walker Subjective: Patient states that she is feeling okay today other than some mild pain that is developing through the knees bilaterally Objective: Alert and well oriented pleasant woman sitting up in bed giving herself a sponge bath and currently no acute distress Mental Status: Alert and oriented x3 to person place and time Pain: Mild pain to the knees bilaterally ROM: Right Upper Extremity: WFL for active motion assessment Left Upper Extremity: WFL for active motion assessment Right Lower Extremity: WFL for active motion assessment Left Lower Extremity: WFL for active motion assessment Strength: Right Upper Extremity: 5/5 globally Left Upper Extremity: 5/5 globally Right Lower Extremity: 5/5 globally patient with pain upon quadriceps testing Left Lower Extremity: 5/5 globally patient with pain upon quadriceps testing Bed Mobility/Transfers: Supervision Supine-sit: CGA Sit-stand: CGA Stand-sit: CGA Gait: Ambulates up to 10 feet with contact-guard assist and front wheel walker Balance: Static Sitting: Normal Dynamic Sitting: Normal Static Standing: Good Dynamic Standing: Fair Special Tests: Mobility Limitations Standardized Measure [facility] AM-PAC 6 clicks Basic Mobility Inpatient Short Form: Raw Score: 18 Standardized Score: 43.63 CMS Score: 46.58% CMS Modifier: CK Informed Consent/Education: Patient instructed in purpose of PT consult and plan of care. ASSESSMENT: Patient is a 78-year-old female with history of good physical health Admitted with unsteadiness, recent falls, weakness all stemming from partial colon resection Patient presents with the following impairment level findings: Mild deficits in gait and balance stability, ambulation intolerance, mild assistance needed for transfers for safety Pt will benefit from skilled therapy intervention in order to remediate her functional limtations and restore patient to a more appropriate and stable functional level. Impairments are contributing to the following functional limitations: AMPA score 18 CMS Score: 46.58% Patient is assessed as a moderate complexity initial evaluation [id number] based on the following: History: see above Examination: see above Presentation: Evolving Decision Making: Moderate based on the impact score of 46.58% Goals: Goals X1 week 1. Supine-Sit Independent 2. Sit-Supine Independent 3. Sit-Stand Independent 4. Stand-Sit Independent 5. Bed-Chair Independent 6. Gait independent 300 feet with use of least restrictive assistive device 7: Independent in Home program Plan of Care/Treatment Plan: 1-2x/day, 7 days/week x 1 week. Plan of care has been reviewed with the PROFESSOR OF BIBLICAL STUDIES providing the service under Physical Therapy direction. Initiate Physical Therapy intervention for strengthening, bed mobility, transfers, gait, stairs, balance training, use of assistive device. DISCHARGE RECOMMENDATIONS: To home in the care of her once medically stable if independent goals are achieved TREATMENT CODE/TIME: Moderate complexity initial evaluation [id number] time of treatment 9:45 AM with 20 minutes of direct patient care G Codes walking mobility moving around GP?[id number]?CK with a goal of GP?[id number]?CJ
[2018-07-31] MEDS: buPROPion-XL 150 MG TABCR 450 MG PO (11:09)
[2018-07-31] MEDS: Potassium Chloride 20 MEQ TABCR 40 MEQ PO (11:10)
[2018-07-31 11:26] VITALS: BP 145/76; PULSE 67; RESP 20; TEMP 36.4; O2SAT 97
--- NOTE | 2018-07-31 12:05 | W.PM.PROGNOT ---
Date of Service Date of service: 07/31/18 Time of Service: 13:14 Assessment and Plan (1) Acute adrenal insufficiency: Start date: 07/31/18 Start time: 12:07 Current visit: No Status: Acute Acute on chronic adrenal insufficiency. Increased falls and weakness. Started on hydrocortisone 50 mg IVP with improvement in weakness. Will monitor electrolytes daily and replete as necessary. (2) Weakness: Start date: 07/31/18 Start time: 12:11 Current visit: Yes Status: Acute Currently on fall precautions, PT/OT working with patient. Recommend continue as outpatient at home. Thank you for your recommendation. (3) FTT (failure to thrive) in adult: Start date: 07/31/18 Start time: 12:12 Current visit: Yes Status: Acute Eating and drinking at this time without difficulty. Eating 100% of meals. (4) Dehydration: Start date: 07/31/18 Start time: 12:13 Current visit: Yes Status: Acute CMP labs BUN-12 creatinine-0.86 down from 1.08 yesterday. Labs returning to normal, drinking without difficulty. Does not appear to be dry at this time. (5) Open abdominal wall wound: Start date: 07/31/18 Start time: 12:16 Current visit: Yes Status: Acute Healing wound with wound vac in place r/t resection and anastomosis from 06/28/2018. Contiue to monitor for signs and symptoms of infection. Afibrile, WBC 6.51 (6) Nausea & vomiting: Start date: 07/31/18 Start time: 12:18 Current visit: Yes Status: Acute Nauseated after eating, started on zofran 4 mg q 8 hour prn for nausea. Will continue to monitor. Qualifiers: Vomiting Intractability: Vomiting type: bilious vomiting Qualified Code(s): R11.14 - Bilious vomiting (7) Hypokalemia: Start date: 07/31/18 Start time: 12:20 Current visit: Yes Status: Acute K+ 3.7 continue to monitor CMP and replete as needed. (8) Hypomagnesemia: Start date: 07/31/18 Start time: 13:12 Current visit: No Status: Acute Mag level.-2.2 today. will continue monitor and replete as needed. (9) Leg pain, bilateral: Start date: 07/31/18 Start time: 13:13 Current visit: Yes Status: Acute Pain from calf to thighs bilaterally, pain is worsened since yesterday. U/S r/o DVT, currently on lovenox for prophylaxis given previous extensive surgery and decrease in ambulation recently want to r/o. Subjective Patient reports: still having pain, nausea and afebrile Interval history since last seen: Mrs Manuel is a 78yo female with PMHx of a colon perforation during a colonoscopy in June of 2018, s/p partial colectomy, as well as history of chronic adrenal insufficiency due to steroid dependence for PMR, latent TB on isoniazid therapy and RIZWAN, who presented to [facility] emergency room 07/30/18 with complaints of increased weakness and falls at home since 07/26/18. The patient currently has an abdominal wound vac due to the colon resection and reanastomosis performed due to the perforation. Additionally, Mrs. Manuel was seen by Dr Garcia in the clinic on 07/27 and noted she was feeling weak at that time and has started her medrol dose pack for her chronic adrenal insufficiency after she was off steroids for 2 days. She states she has been taking this but despite this has general weakness and has fallen 3 times recently in last 3 days. She denies LOC or hitting head. Today patient appears to be doing well. Pt states a good nights sleep in which she does feel better today. Still feels weak. Eating and drinking well, finishing all food on plate. Did have some nausea this am which she said she did not have yesterday. C/o leg cramping worsening in the last 24 hours from calf to thigh. Stated that her knee gave out when ambulating yesterday and that she still feels weak. The plan is bilateral Lower extremity U/S r/o dvt related to weakness and less ambulation, continue to monitor electrolytes and replete as needed. Continue to have PT/OT work with patient. PT/OT recommendation patient is able to go home I would continue PT/OT at home on outpatient basis. Exam Const General: cooperative, healthy appearing, comfortable and no acute distress Orientation: alert, awake and oriented x3 HENMT Head: normal to inspection Face and sinus: normal facial exam Mouth: oral mucosae normal Eyes General: appearance normal, both eyes and all related structures Eyelids: eyelids normal Pupils: PERRL Neck Neck: normal visual inspection and no lymphadenopathy Lymphatic: no lymphadenopathy noted Chest Chest: normal inspection of the chest Resp Effort & Inspection: normal respiratory effort and able to speak in complete sentences Auscultation: clear to auscultation bilaterally Cardio Jugular venous pressure: no JVD Palpation: normal PMI Rate: regular rate Rhythm: regular rhythm Heart Sounds: S1 normal and S2 normal GI Inspection: other Palpation: soft Auscultation: normal bowel sounds Other: Incision to abd with wound vac in place Skin Wounds: wounds noted Other: approx 3 cm wound with wound vac dressing Neuro General: alert, awake and oriented x3 Extrem General: normal to inspection Right upper extremity: normal to inspection Left upper extremity: normal to inspection Right lower extremity: normal to inspection Left lower extremity: normal to inspection Psych Appearance: grossly normal Speech and Movement: speech and movement normal Affect: normal affect Attitude: cooperative Objective Objective Clinical Data: Abnormal lab results 07/31/18 07/31/18 Range/Units 07:00 07:00 RBC 3.34 L (4.00-5.20) m/cumm Hgb 9.4 L (12.0-15.5) g/dL Hct 30.2 L (36.0-46.0) % MCHC 31.1 L (32.0-36.0) g/dL RDW 15.8 H (11.7-14.6) % Glucose 124 H (70-100) mg/dL Vital Signs Temperature 36.4 C L 07/31/18 11:26 Temperature Source Tympanic 07/31/18 11:26 Pulse 67 07/31/18 11:26 Pulse Rhythm Regular 07/30/18 19:15 Pulse 82 07/30/18 08:40 Respiratory Rate 20 07/31/18 11:26 Respiratory Effort Non-Labored 07/30/18 19:15 Respiratory Depth Normal 07/30/18 19:15 Respiratory Pattern Normal 07/30/18 19:15 Blood Pressure 145/76 H 07/31/18 11:26 Blood Pressure Mean 73 07/30/18 07:01 Pulse Oximetry 97 07/31/18 11:26 Oxygen Delivery Method Room Air 07/31/18 11:26 Oxygen Flow Rate 0 07/31/18 11:26 Pain Level 0 07/31/18 11:26 Comment 07/30/18 11:08 Intake & Output 01/06/0707/31/18 07/31/18 23:59 11:59 23:59 Intake Total 500 / 1300 1070 / 1070 Output Total 1600 / 1850 450 / 450 Balance -1100 / -550 620 / 620 Weight 82.2 kg Intake: IV 20 270 20 Oral 480 / 1030 1050 / 1050 Output: Urine 1600 / 1850 450 / 450 Other: Urine Color Yellow Yellow Urine Appearance Clear Clear Urine Odor Normal Normal Comment Void x1 in the toilet. Stool Size Large Stool Characteristics Soft Formed Voiding Methods Toilet Toilet Laboratory Results WBC 6.51 k/cumm (4.4-10.8) D 07/31/18 07:00 RBC 3.34 m/cumm (4.00-5.20) L 07/31/18 07:00 Hgb 9.4 g/dL (12.0-15.5) L 07/31/18 07:00 Hct 30.2 % (36.0-46.0) L 07/31/18 07:00 MCV 90.4 fL (80-95) 07/31/18 07:00 MCH 28.1 pg (27.0-33.0) 07/31/18 07:00 MCHC 31.1 g/dL (32.0-36.0) L 07/31/18 07:00 RDW 15.8 % (11.7-14.6) H 07/31/18 07:00 Plt Count 321 x1000/uL (130-400) 07/31/18 07:00 MPV 10.6 fL (8.0-11.0) 07/31/18 07:00 Immature Gran % 0.2 07/31/18 07:00 Neutrophils % 70.0 07/31/18 07:00 Lymphocytes % 21.5 07/31/18 07:00 Monocytes % 8.1 07/31/18 07:00 Eosinophils % 0.0 07/31/18 07:00 Basophils % 0.2 07/31/18 07:00 Absolute Neutrophils 4.56 k/cumm (1.2-6.7) 07/31/18 07:00 Absolute Lymphocytes 1.40 k/cumm (1.2-3.4) 07/31/18 07:00 Absolute Monocytes 0.53 k/cumm (0.11-0.7) 07/31/18 07:00 Absolute Eosinophils 0.00 k/cumm (0.0-0.7) 07/31/18 07:00 Absolute Basophils 0.01 k/cumm (0.0-0.2) 07/31/18 07:00 PT 10.9 sec (9.3-11.0) 07/30/18 05:07 INR 1.1 (0.9-1.1) 07/30/18 05:07 APTT 20.8 sec (21.0-31.4) L 07/30/18 05:07 Sodium 140 mmol/L (136-145) 07/31/18 07:00 Potassium 3.7 mmol/L (3.5-5.1) D 07/31/18 07:00 Chloride 107 mmol/L (98-107) 07/31/18 07:00 Carbon Dioxide 22.4 mmol/L (21.0-32.0) 07/31/18 07:00 Anion Gap 10.6 mmol/L (3-11) 07/31/18 07:00 BUN 12 mg/dL (7-18) 07/31/18 07:00 Creatinine 0.86 mg/dL (0.55-1.02) 07/31/18 07:00 Estimated GFR/1.73 m2 >= 60.00 (mL/min/1.73m2) 07/31/18 07:00 Glucose 124 mg/dL (70-100) H 07/31/18 07:00 Calcium 9.3 mg/dL (8.5-10.1) 07/31/18 07:00 Magnesium 2.2 mg/dL (1.8-2.4) 07/31/18 07:00 Total Bilirubin 0.3 mg/dL (0.2-1.0) 07/30/18 05:07 AST 27 U/L (15-37) 07/30/18 05:07 ALT 41 U/L (12-78) 07/30/18 05:07 Alkaline Phosphatase 95 U/L (46-116) 07/30/18 05:07 Total Protein 7.4 g/dL (6.4-8.2) 07/30/18 05:07 Albumin 3.1 g/dL (3.4-5.0) L 07/30/18 05:07 TSH 1.51 uIU/mL (0.358-3.74) 07/30/18 05:07 Urine Color Yellow (Yellow) 07/30/18 05:30 Urine Clarity Clear 07/30/18 05:30 Urine pH 6.5 (5-8) 07/30/18 05:30 Ur Specific Coffey 1.010 (1.005-1.025) 07/30/18 05:30 Urine Protein Negative mg/dL (Negative) 07/30/18 05:30 Urine Ketones Negative mg/dL (Negative) 07/30/18 05:30 Urine Blood Trace-intact (Negative) H 07/30/18 05:30 Urine Nitrite Negative (Negative) 07/30/18 05:30 Urine Bilirubin Negative (Negative) 07/30/18 05:30 Urine Urobilinogen 0.2 EU/dL (Up TO 0.2) 07/30/18 05:30 Ur Leukocyte Esterase Trace (Negative) H 07/30/18 05:30 Urine RBC 0-2 (0-2) 07/30/18 05:30 Urine WBC 3-5 HPF (0-5) 07/30/18 05:30 Ur Epithelial Cells Few HPF (Negative) 07/30/18 05:30 Urine Crystals Negative HPF (Negative) 07/30/18 05:30 Urine Bacteria Few HPF (Negative) 07/30/18 05:30 Urine Casts Negative LPF (Negative) 07/30/18 05:30 Urine Mucus Negative (Negative) 07/30/18 05:30 Urine Other Moderate renal (Negative) 07/30/18 05:30 Ur Culture Indicated? Yes 07/30/18 05:30 Urine Glucose Negative mg/dL (Negative) 07/30/18 05:30
[2018-07-31] MEDS: Enoxaparin 40 MG/0.4 ML SYR SC (16:11)
[2018-07-31 16:22] VITALS: BP 151/67; PULSE 84; RESP 18; TEMP 36.6; O2SAT 94
--- NOTE | 2018-07-31 16:36 | PDOC.CMIN ---
Care Management Initial Assess REASON FOR HOSPITALIZATION:: Dehydration PAST MEDICAL HISTORY/PAST SURGICAL HISTORY:: Perforated bowel d/t complications from colonoscopy; (06/28/18), benign paroxysmal positional vertigo, cataract, colon polyp, depressive disorder, calcaneus closed fracture, hypothyroidism, increased BMI, insomnia, memory impairment (h/o closed head injury), non-alcoholic fatty liver disease, obstructive sleep apnea, osteopenia, osteoperosis, PMR, osteoarthritis, Raynaud's disease, tuberculosis. Surgical hx: hysterectomy, appendectomy, bilateral salpingectomy with oophorectomy, colonoscopy, EGD, D&C, laparoscopic ovarian cystetomy, rotator cuff repair, tonsillectomy. PREVIOUS FUNCTIONAL STATUS/SOCIAL/FAMILY SUPPORTS:: Amanda resides in [place] with her , Ed. They have four adult children and 15 grandchildren; none of whom reside locally. Amanda is retired and reports that prior to the age of 66 she was not working and collecting disability. Her , Ed, works at [employer]. She is independent with her ADLs and transportation at baseline and reports that she uses a walker once in awhile as she occassionally gets dizzy. ADVANCE DIRECTIVES:: On file at [facility]. Health Care Agent: Matt Colon. Has patient been provided with information about the portal?: Yes Did the patient sign up for the portal?: No CODE STATUS:: DNR/DNI INSURANCE COVERAGE / FINANCIAL ISSUES:: AARP [employer], Medicare. CURRENT HOME/COMMUNITY SERVICES/EQUIPMENT:: No current home or community services. FWW for occassional use. PRIMARY CARE PHYSICIAN:: Liz Granado MD. POTENTIAL DISCHARGE NEEDS:: Follow up appointment with surgical services. PATIENT/FAMILY EDUCATION NEEDS:: Discharge education, any limitations, and follow up plan of care. Ask Me Three discussion. ANTICIPATED BARRIERS TO DISCHARGE:: No anticipated barriers to discharge. TRANSPORTATION:: Amanda will transport via private vehicle with her , Ed. PLAN:: Pat will discharge when medically ready per MD. Anticipate patient will discharge with new orders for CHH/PT/OT, follow up with her PCP and plan of care as prescribed. CM will continue to offer support to patient and care team regarding discharge planning and disposition.
--- NOTE | 2018-07-31 16:39 | INITIAL_ITS ---
Care Management Initial Assess REASON FOR HOSPITALIZATION:: Dehydration PAST MEDICAL HISTORY/PAST SURGICAL HISTORY:: Perforated bowel d/t complications from colonoscopy; (06/28/18), benign paroxysmal positional vertigo, cataract, colon polyp, depressive disorder, calcaneus closed fracture, hypothyroidism, increased BMI, insomnia, memory impairment (h/o closed head injury), non- alcoholic fatty liver disease, obstructive sleep apnea, osteopenia, osteoperosis, PMR, osteoarthritis, Raynaud's disease, tuberculosis. Surgical hx: hysterectomy, appendectomy, bilateral salpingectomy with oophorectomy, colonoscopy, EGD, D&C, laparoscopic ovarian cystetomy, rotator cuff repair, tonsillectomy. PREVIOUS FUNCTIONAL STATUS/SOCIAL/FAMILY SUPPORTS:: Amanda resides in [place] with her , Ed. They have four adult children and 15 grandchildren; none of whom reside locally. Amanda is retired and reports that prior to the age of 66 she was not working and collecting disability. Her , Ed, works at [employer]. She is independent with her ADLs and transportation at baseline and reports that she uses a walker once in awhile as she occassionally gets dizzy. ADVANCE DIRECTIVES:: On file at [facility]. Health Care Agent: Matt Colon. Has patient been provided with information about the portal?: Yes Did the patient sign up for the portal?: No CODE STATUS:: DNR/DNI INSURANCE COVERAGE / FINANCIAL ISSUES:: AARP [employer], Medicare. CURRENT HOME/COMMUNITY SERVICES/EQUIPMENT:: No current home or community services. FWW for occassional use. PRIMARY CARE PHYSICIAN:: Liz Granado MD. POTENTIAL DISCHARGE NEEDS:: Follow up appointment with surgical services. PATIENT/FAMILY EDUCATION NEEDS:: Discharge education, any limitations, and follow up plan of care. Ask Me Three discussion. ANTICIPATED BARRIERS TO DISCHARGE:: No anticipated barriers to discharge. TRANSPORTATION:: Amanda will transport via private vehicle with her , Ed. PLAN:: Pat will discharge when medically ready per MD. Anticipate patient will discharge with new orders for CHH/PT/OT, follow up with her PCP and plan of care as prescribed. CM will continue to offer support to patient and care team regarding discharge planning and disposition.
--- NOTE | 2018-07-31 17:02 | DI.US_ITS ---
SYMPTOM/DIAGNOSIS: CRAMPING IN CALF AND THIGH BILATERAL LOWER EXTREMITY ULTRASOUND: The femoral and popliteal veins are freely compressible. No thrombus is visible. The doppler venous wave form augments normally. No saphenous thrombosis is seen. There is a small Junior's cyst in the right popliteal fossa. IMPRESSION: Right popliteal cyst. No evidence of DVT or superficial thrombophlebitis.
--- NOTE | 2018-07-31 17:11 | DI.VRAD_ITS ---
EXAM: US Bilateral Duplex Lower Extremity Veins EXAM DATE/TIME: 07/31/2018 4:51 PM CLINICAL HISTORY: 78 years old, female; Pain; Leg, lower; Bilateral; Patient HX: Recent post-op ileus TECHNIQUE: Real-time duplex ultrasound of the Bilateral Lower Extremities with 2-D cedillo scale, color Doppler flow and spectral waveform analysis. Complete exam focused on the bilateral lower extremity veins. COMPARISON: US extremity venous BI 07/12/2018 1:10 PM FINDINGS: Right deep veins: Unremarkable. The common femoral, femoral and popliteal veins are patent without thrombus. Normal compressibility, augmentation response and Doppler waveforms. Right superficial veins: Saphenofemoral junction is patent without thrombus. Left deep veins: Unremarkable. The common femoral, femoral and popliteal veins are patent without thrombus. Normal compressibility, augmentation response and Doppler waveforms. Left superficial veins: Saphenofemoral junction is patent without thrombus. Soft tissues: Fluid collection in the right popliteal fossa 2.9 x 2.1 x 0.8 cm IMPRESSION: No evidence of deep vein thrombosis. Fluid collection in the right popliteal fossa 2.9 x 2.1 x 0.8 cm Dictated and Authenticated by: Floyd Yee MD. Ordering:DONNA Hernandez MD
[2018-07-31 19:48] VITALS: BP 146/78; BP 147/61; BP 147/74; PULSE 82; PULSE 87; PULSE 94; TEMP 36.7; O2SAT 96
[2018-07-31] MEDS: Zolpidem 5 MG TAB PO (21:55)
[2018-07-31] MEDS: Mirtazapine 15 MG TAB 7.5 MG PO (21:55)
[2018-07-31 23:54] VITALS: BP 149/73; PULSE 84; RESP 18; TEMP 36.2; O2SAT 95
[2018-08-01] MEDS: Normal Saline Flush 10 ML SYR IVP ×3 (01:52→13:30)
[2018-08-01] MEDS: Hydrocortisone SOD SUC. 100 MG VIAL 50 MG IVP ×3 (01:52→13:30)
[2018-08-01] MEDS: Ibuprofen 600 MG TAB PO (01:52)
[2018-08-01 03:54] VITALS: BP 177/72; PULSE 77; RESP 18; TEMP 36.5; O2SAT 96
[2018-08-01] MEDS: Levothyroxine 100 MCG TAB PO (06:45)
[2018-08-01 07:53] LABS: HCT 30.4 % (36.0-46.0); HGB 9.4 g/dL (12.0-15.5); Mean Corp. HGB Concentration 30.9 g/dL (32.0-36.0); Mean Corpuscular Hemoglobin 27.9 pg (27.0-33.0); Mean Corpuscular Volume 90.2 fL (80-95); Platelet Count 324 x1000/uL (130-400); RBC 3.37 m/cumm (4.00-5.20); RBC Distribution Width 15.8 % (11.7-14.6); White Blood Cell Count 8.04 k/cumm (4.4-10.8)
[2018-08-01 08:03] LABS: Anion Gap 11.9 mmol/L (3-11); BUN 22 mg/dL (7-18); CO2 25.1 mmol/L (21.0-32.0); CREATININE 1.05 mg/dL (0.55-1.02); Chloride 105 mmol/L (98-107); Estimated GFR 50.82 (mL/min/1.73m2); Glucose 114 mg/dL (70-100); Magnesium 1.9 mg/dL (1.8-2.4); Potassium 3.6 mmol/L (3.5-5.1); Sodium 142 mmol/L (136-145)
[2018-08-01 08:08] VITALS: BP 152/71; PULSE 61; RESP 18; TEMP 36; O2SAT 96
[2018-08-01] MEDS: Polyethylene Glycol 3350 17 GM PACKET PO (08:31)
[2018-08-01] MEDS: Potassium Chloride 20 MEQ TABCR 40 MEQ PO (08:32)
[2018-08-01] MEDS: Furosemide 20 MG TAB 40 MG PO (08:33)
[2018-08-01] MEDS: Aspirin E.C. 81 MG TABEC PO (08:33)
[2018-08-01] MEDS: Ferrous Gluconate 324 MG TAB PO (08:33)
[2018-08-01] MEDS: Pantoprazole 40 MG TABCR PO (08:34)
[2018-08-01] MEDS: Folic Acid 1 MG TAB PO (08:34)
[2018-08-01] MEDS: Ascorbic Acid 500 MG TAB PO (08:34)
[2018-08-01] MEDS: buPROPion-XL 150 MG TABCR 450 MG PO (08:35)
[2018-08-01] MEDS: Nystatin CREAM 15 GM TUBE TP (08:48)
[2018-08-01] MEDS: Clotrimazole 1% 15 GM TUBE TP (08:48)
--- NOTE | 2018-08-01 10:39 | PDOC.CMDIS ---
LACE Index Scoring Tool - Questions: Length of Stay (in days): 3 Acuity (Admit via E.D.?): Yes Comorbidities: Mild Liver/Renal Disease E.D. Visits: 3 - Answers: Total Score: 11 Risk of Readmission: High Risk Care Management Discharge Reason for Hospitalization: Dehydration Discharge Plan: Amanda will discharge when medically ready per MD, she will resume VNA nursing and have new orders for CHH/PT/OT as well. She will follow up with her PCP, Palliative Care as an outpatient and her plan of care as prescribed. Patient/Family Education Needs: Review of discharge instructions, discuss Ask Me Three. Riddhi is able to verbalize discharge plan and reports feeling confident with follow up considerations and increased VNA supports. Services Needed at Discharge: Home Health Care Services (Resume RN-add PT/OT)
--- NOTE | 2018-08-01 11:47 | PT.INTREAT ---
Date of service: 08/01/18 Time of Service: 11:47 PT Notes 08/01/18 SUBJECTIVE: Riddhi stating she is doing better. She complains of bilateral thigh discomfort especially when sitting on the toilet or in a chair for longer periods of time. This discomfort is different than her PMR discomfort. OBJECTIVE: Seated EOB. Agreeable to PT treatment. She has wound vac in place. TRANSFERS: Sit to stand: SBA Stand to sit: SBA GAIT: Device: FWW Weight bearing: Full Assist: SBA Distance: 75' THEREX: Pt has discomfort with LAQ seated in the chair. She has less discomfort with seated marching and she was encouraged to complete this exercise when sitting in the chair throughout the day. ASSESSMENT: Tolerates PT well with no LOB during gait and good management of walker. She feels more steady with her gait than she did when at home. PLAN: Continue to mobilize per POC. Direct time: 20 minutes ANJALI Fleming, [employer] SUPERVISOR
--- NOTE | 2018-08-01 11:52 | PT.INTREAT ---
Date of service: 08/01/18 Time of Service: 11:52 PT Notes 08/01/18 SUBJECTIVE: Jodi stating she has no pain at rest. OBJECTIVE: Pt in sitting position in bed visiting with guests. She is in agreeable to PT treatment. TRANSFERS: Supine to sit: Mod A x 2 Sit to stand: Min A Stand to sit: CGA GAIT: Device: FWW Weight bearing: WBAT L Assist: CGA Distance: 5' Deviation: Cues for walker management Therex: Light LE strengthening and AAROM at the left hip/knee. See flow sheet. ASSESSMENT: Pt in much better spirits today and willing to be up in chair with PT this morning. Continues to require Mod A x 2 from supine to sit but is making progress with her basic transfers from bed to chair. PLAN: Continue current POC. Direct time: 25 minutes TA/TAI Fleming PTA
--- NOTE | 2018-08-01 13:13 | W.PM.DS.N ---
Date of service: 08/01/18 Time of Service: 13:13 DS: Diagnosis Discharge Diagnosis (1) Acute adrenal insufficiency: Status: Acute (2) Open abdominal wall wound: Status: Acute (3) Nausea & vomiting: Status: Acute Discharge Plan Disposition Condition: Stable Discharge Details Reason For Visit: Adrenal insufficency with weakness Admit Date/Time: 07/30/18 09:30 Admit Provider: Mena Lugo Attending Provider: Mena Lugo Primary Care Provider: [facility] Course Hospital Course: CC: Weakness, falls HPI: Mrs Manuel is a 78yo female with PMHx of a colon perforation during a colonoscopy in June of 2018, s/p partial colectomy, as well as history of chronic adrenal insufficiency due to steroid dependence for PMR, latent TB on isoniazid therapy and RIZWAN, who presented to [facility] emergency room 07/30/18 with complaints of increased weakness and falls at home since 07/26/18. The patient currently has an abdominal wound vac due to the colon resection and reanastomosis performed due to the perforation. Additionally, Mrs. Manuel was seen by Dr Garcia in the clinic on 07/27 and noted she was feeling weak at that time and has started her medrol dose pack for her chronic adrenal insufficiency after she was off steroids for 2 days. She states she has been taking this but despite this has general weakness and has fallen 3 times recently in last 3 days. She denies LOC or hitting head. Today patient appears to be doing well. she does feel better today. Eating and drinking well, finishing all food on plate. No nausea today. Leg pain is minimal only when sitting up and sitting down on chair and toilet now U/S was negative. I want her to work with PT today, then we can discharge her home with PT/OT. Labs have normalized. (1) Acute adrenal insufficiency: Acute on Chronic adrenal insufficiency. Reports recent falls and increased weakness. Pt was restarted on Medrol dose pack by Dr Garcia on 07/27/18. Monitor daily electrolytes plan for repletition as neccessary. (2) Hypokalemia: Monitor CMP daily and replete as needed (3) Hypomagnesemia: Monitor daily Magnesium level and replete as needed. (4) Weakness: Place on fall precautions. PT/OT consult ordered. Thank you PT/OT for your assessment and recommendations. (5) Open abdominal wall wound: Healing abdominal wound related to colon resection and anastomosis from 06/28/18. Wound vac in place continue with current therapy. Continue to monitor for signs/symptoms of infection. (6) Dehydration: Daily CMP labs. Monitor daily intake and output. If poor intake consider IV rehydration. (7) FTT (failure to thrive) in adult: Monitor nutritional and fluid intake status. PT/OT consult ordered for assessment and strength training. Plan for Rehab placement. 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 PT/OT at home to strength and nursing services for wound care. Home Meds and New Rx's Prescriptions: New methylprednisolone 4 mg tablet 10 mg PO DAILY Qty: 30 RF: 0 No Action isoniazid 300 mg tablet 300 mg PO DAILY RF: 0 cholecalciferol (vitamin D3) 1,000 unit tablet 500 unit PO DAILY RF: 0 methylprednisolone [Medrol] 4 mg tablet 4 mg PO DAILY Qty: 30 RF: 0 zolpidem 12.5 mg tablet,ext release multiphase 12.5 mg PO HS Qty: 30 RF: 0 pyridoxine (vitamin B6) 25 mg tablet 25 mg PO DAILY RF: 0 aspirin [Aspirin Low Dose] 81 MG tablet,delayed release (DR/EC) 81 mg PO DAILY RF: 0 folic acid 1 MG tablet 1 mg PO DAILY Qty: 90 RF: 4 ferrous gluconate 324 MG tablet 324 mg PO DAILY Qty: 30 RF: 4 mirtazapine 7.5 MG tablet 7.5 mg PO HS Qty: 90 RF: 2 levothyroxine 100 mcg tablet 100 mcg PO DAILY Qty: 90 RF: 2 bupropion HCl 150 mg tablet extended release 24 hr 150 mg PO QAM Qty: 90 RF: 2 bupropion HCl 300 mg tablet extended release 24 hr 300 mg PO QAM Qty: 90 RF: 2 ascorbic acid (vitamin C) [Vitamin C] 500 MG tablet 500 mg PO DAILY RF: 0 methotrexate sodium 2.5 mg Tablet 6 tab PO QWEEK RF: 0 pyridoxine (vitamin B6) [Vitamin B-6] 25 mg Tablet 1 tab PO DAILY RF: 0 sulfamethoxazole-trimethoprim [Bactrim DS] 800-160 mg Tablet 1 tab PO BID RF: 0 ascorbic acid (vitamin C) [Vitamin C] 500 mg Tablet 1 tab PO DAILY RF: 0 cholecalciferol (vitamin D3) [Vitamin D3] 1,000 unit Capsule 1,000 unit PO DAILY RF: 0 clotrimazole 1 % Ointment 45 g topical BID RF: 0 furosemide 20 mg tablet 40 mg PO BID RF: 0 polyethylene glycol 3350 [Miralax] 17 gram Powder In Packet 1 packet PO DAILY RF: 0 oxycodone 5 mg Capsule 5 mg PO Q6H PRN PRNRF: 0 nystatin 100,000 unit/gram Cream 60 g topical DAILY RF: 0 ibuprofen [IBU] 600 mg Tablet 600 mg PO Q6H PRN PRN (Reason: Pain) Qty: 30 RF: 0 potassium chloride 20 mEq tablet extended release 40 meq PO DAILY Qty: 14 RF: 0 Discharge Instructions Instructions: Secondary Adrenal Insufficiency (DC), Secondary Adrenal Insufficiency (GEN) Additional Instructions: Take medrol dose as prescribed, get repeat labs in 3 days and follow up with your PCP in 2 weeks Activity:: work with PT to regain strength and move around as tolerated Equipment/Supplies:: wound vaccum Diet:: As Tolerated Exam Narrative Exam Narrative: Const General: cooperative, healthy appearing, comfortable and no acute distress Orientation: alert, awake and oriented x3 HENMT Head: normal to inspection Face and sinus: normal facial exam Mouth: oral mucosae normal Eyes General: appearance normal, both eyes and all related structures Eyelids: eyelids normal Pupils: PERRL Neck Neck: normal visual inspection and no lymphadenopathy Lymphatic: no lymphadenopathy noted Chest Chest: normal inspection of the chest Resp Effort & Inspection: normal respiratory effort and able to speak in complete sentences Auscultation: clear to auscultation bilaterally Cardio Jugular venous pressure: no JVD Palpation: normal PMI Rate: regular rate Rhythm: regular rhythm Heart Sounds: S1 normal and S2 normal GI Inspection: other Palpation: soft Auscultation: normal bowel sounds Other: Incision to abd with wound vac in place Skin Wounds: wounds noted Other: approx 3 cm wound with wound vac dressing Neuro General: alert, awake and oriented x3 Extrem General: normal to inspection Right upper extremity: normal to inspection Left upper extremity: normal to inspection Right lower extremity: normal to inspection Left lower extremity: normal to inspection Psych Appearance: grossly normal Speech and Movement: speech and movement normal Affect: normal affect Attitude: cooperative DS: Data Vitals/I&O Vitals and I&O: Vital Signs Temperature 36 C L 08/01/18 08:08 Temperature Source Temporal Artery Scan 08/01/18 08:08 Pulse 61 08/01/18 08:08 Pulse Rhythm Regular 07/31/18 19:50 Pulse 82 07/30/18 08:40 Respiratory Rate 18 08/01/18 08:08 Respiratory Effort Non-Labored 07/31/18 19:50 Respiratory Depth Normal 07/31/18 19:50 Respiratory Pattern Normal 07/31/18 19:50 Blood Pressure 152/71 H 08/01/18 08:08 Blood Pressure Mean 73 07/30/18 07:01 Pulse Oximetry 96 08/01/18 08:08 Oxygen Delivery Method Room Air 08/01/18 08:08 Oxygen Flow Rate 0 08/01/18 08:08 Pain Level 0 08/01/18 08:08 Comment 07/30/18 11:08 Intake & Output 07/31/18 08/01/18 08/01/18 23:59 11:59 23:59 Intake Total 490 / 1581 1710 / 1710 Output Total 1350 / 2200 700 / 700 Balance -860 / -619 1010 / 1010 Weight 82.2 kg Intake: IV Oral 490 / 1540 1690 / 1690 Output: Urine 1350 / 2200 700 / 700 Other: Urine Color Yellow Yellow Urine Appearance Clear Urine Odor Normal Stool Size Small Stool Characteristics Soft Formed Brown Voiding Methods Toilet Toilet Labs on day of discharge: Labs from last 24 hours 08/01/18 08/01/18 07:45 07:45 WBC 8.04 RBC 3.37 L Hgb 9.4 L Hct 30.4 L MCV 90.2 MCH 27.9 MCHC 30.9 L RDW 15.8 H Plt Count 324 MPV 10.0 Sodium 142 Potassium 3.6 Chloride 105 Carbon Dioxide 25.1 Anion Gap 11.9 H BUN 22 H D Creatinine 1.05 H Estimated GFR/1.73 m2 50.82 Glucose 114 H Calcium 9.0 Magnesium 1.9 Imaging Venous US: Radiologist's impression: FINDINGS: Right deep veins: Unremarkable. The common femoral, femoral and popliteal veins are patent without thrombus. Normal compressibility, augmentation response and Doppler waveforms. Right superficial veins: Saphenofemoral junction is patent without thrombus. Left deep veins: Unremarkable. The common femoral, femoral and popliteal veins are patent without thrombus. Normal compressibility, augmentation response and Doppler waveforms. Left superficial veins: Saphenofemoral junction is patent without thrombus. Soft tissues: Fluid collection in the right popliteal fossa 2.9 x 2.1 x 0.8 cm IMPRESSION: No evidence of deep vein thrombosis. Fluid collection in the right popliteal fossa 2.9 x 2.1 x 0.8 cm [facility] Medical History Raynaud's disease (Acute) Primary osteoarthritis of left knee (Acute 07/30/15) PMR (polymyalgia rheumatica) (Chronic 01/15/16) Osteoporosis (Acute) Osteopenia (Acute 07/30/16) Obstructive sleep apnea syndrome (Acute) Non-alcoholic fatty liver disease (Acute) Memory impairment (Acute 06/18/94) Increased body mass index (Acute) Hypothyroidism (Acute 04/05/12) Fracture, calcaneus closed (Acute 09/19/14) Excessive sweating (Acute 06/02/16) Depressive disorder (Acute) Colon polyp (Acute 06/28/18) Cataract (Acute 07/28/14) Benign paroxysmal positional vertigo (Acute) Abdominal pain (Acute 10/31/13) Insomnia (Acute) Tuberculosis (Chronic) Surgical History H/O dilation and curettage (Acute) S/P tonsillectomy (Acute) Abdominal hysterectomy (~1975) Appendectomy Bilateral salpingectomy with oophorectomy (~1975) Colonoscopy - MAC EGD - MAC (~2003) Laparoscopic, Ovarian Cystectomy Rotator Cuff Repair Family History Mother Heart disease Father Stroke Sister No problems noted. Brother No problems noted. Grandfather Essential hypertension Heart disease Grandfather No problems noted. 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
[2018-08-01 13:38] VITALS: BP 136/58; BP 137/68; PULSE 67; PULSE 83; RESP 18; TEMP 36.2; O2SAT 97
--- NOTE | 2018-08-01 14:43 | PDOC.HHF2F ---
1. Encounter Date and Reason I certify that NATASHA JENKINS was seen by Mary Roman on 08/01/18 and that I had a [id number] encounter with this patient that meets the physician face to face encounter requirements. 2. Clinical Findings Supporting Skilled Need and Homebound Status I certify that home health services are medically necessary, include either intermittent mcc and/or physical/speech therapy, and that this patient is homebound in that absences from the home require considerable and taxing effort and are infrequent or of short duration, or are attributable to the need to receive medical care. [X] (a) Attached documentation from encounter provides clinical findings supporting skilled need and homebound status (including what assistance patient requires to leave the home). The encounter with the patient was in whole, or in part, for the following medical condition, which is the primary reason for home health care: Adrenal insufficency with weakness Retirement: Wound that has a wound vac with dressing that needs to be changed everyday Physical Therapy: Strength training due to weakness from extensive previous surgery Speech Therapy: Homebound: 3. Certification and Authentication I certify that I composed the above information based on my clinical judgement relating to this patient's medical condition and, if applicable, clinical findings communicated to me by the NPP or inpatient physician who performed the Home Health Referral. All further orders will be obtained through (Community Based Physician - PCP)
--- NOTE | 2018-08-03 10:29 | PT.INDS ---
Date of service: 08/03/18 Time of Service: 10:29 PT Notes Date: 08/03/18 Referring Doctor: Earlene Juan PT Orders: PT CONSULT: Evaluate for falls and weakness Precautions: Bessie (patient has abdominal wound vac) Treatment Dates: 07/31/18 -08/01/18 THIS DOCUMENT SERVES A SUMMARY OF CARE. NO PT SERVICES PROVIDED ON THIS DATE. Patient Profile/Admitting Diagnosis: patient admitted due to weakness and increased falls at home since 07/26/2018. Patient has had a somewhat medically challenging month. Back in June she had a colonoscopy with a perforation of her colon thus requiring partial resection of colon. She has chronic renal insufficiency at baseline and has steroid dependence for PMR. Wound VAC is in place through the abdomen due to the colon resection. She was seen for PT intervention for 2 session between 07/31/18-08/01/18. PMHX: Raynaud's disease (Acute) Primary osteoarthritis of left knee (Acute 07/30/15) PMR (polymyalgia rheumatica) (Chronic 01/15/16) Osteoporosis (Acute) Osteopenia (Acute 07/30/16) Obstructive sleep apnea syndrome (Acute) Non-alcoholic fatty liver disease (Acute) Memory impairment (Acute 06/18/94) Increased body mass index (Acute) Hypothyroidism (Acute 04/05/12) Fracture, calcaneus closed (Acute 09/19/14) Excessive sweating (Acute 06/02/16) Depressive disorder (Acute) Colon polyp (Acute 06/28/18) Cataract (Acute 07/28/14) Benign paroxysmal positional vertigo (Acute) Abdominal pain (Acute 10/31/13) Insomnia (Acute) Tuberculosis (Chronic) Surgical History H/O dilation and curettage (Acute) S/P tonsillectomy (Acute) Abdominal hysterectomy (~1975) Appendectomy Bilateral salpingectomy with oophorectomy (~1975) Colonoscopy - MAC EGD - MAC (~2003) Laparoscopic, Ovarian Cystectomy Rotator Cuff Repair Social History/Home Situation: Patient lives locally in the area with her however due to her recent functional state it has been harder for her to be managed by her at home Equipment Owned/DME: Patient has a 4 wheel walker Subjective: Patient states that she is feeling okay today other than some mild pain that is developing through the knees bilaterally Objective: Alert and well oriented pleasant woman sitting up in bed giving herself a sponge bath and currently no acute distress Mental Status: Alert and oriented x3 to person place and time Pain: Mild pain to the knees bilaterally ROM: Right Upper Extremity: WFL for active motion assessment Left Upper Extremity: WFL for active motion assessment Right Lower Extremity: WFL for active motion assessment Left Lower Extremity: WFL for active motion assessment Strength: Right Upper Extremity: 5/5 globally Left Upper Extremity: 5/5 globally Right Lower Extremity: 5/5 globally patient with pain upon quadriceps testing Left Lower Extremity: 5/5 globally patient with pain upon quadriceps testing Bed Mobility/Transfers: Supervision Supine-sit: supervision Sit-stand: SBA Stand-sit: SBA Gait: Ambulated 75 feet with SBA and front wheel walker Balance: Static Sitting: Normal Dynamic Sitting: Normal Static Standing: Good Dynamic Standing: Fair ASSESSMENT: Patient is a 78-year-old female with history of good physical health, admitted with unsteadiness, recent falls, weakness all stemming from partial colon resection. Patient demonstrated improvements in mobility sufficient to allow for safe return home with family assistance. Goals: Goals X1 week 1. Supine-Sit Independent (progressing toward) 2. Sit-Supine Independent(progressing toward) 3. Sit-Stand Independent(progressing toward) 4. Stand-Sit Independent(progressing toward) 5. Bed-Chair Independent(progressing toward) 6. Gait independent 300 feet with use of least restrictive assistive device(progressing toward) 7: Independent in Home program (progressing toward) Plan of Care/Treatment Plan: D/C home with family assistance DISCHARGE RECOMMENDATIONS: Home TREATMENT CODE/TIME: None provided on today's date
== END 2018-08-01 17:06 | disposition home health service (06) | DRG 645 ==
LOC: ER 09:56 → MS 11:04
PROVIDERS: Emergency Medicine; Nurse Practitioner Family; Admitting Provider Internal Medicine; Emergency Provider Student in an Organized Health Care Education/Training Program; PCP Family Medicine; Visit Provider Internal Medicine
DX: E27.3 Drug-induced adrenocortical insufficiency (principal); R53.1 Weakness; T38.0X5A Adverse effect of glucocorticoids and synthetic analogues, initial encounter; M35.3 Polymyalgia rheumatica; Z48.815 Encounter for surgical aftercare following surgery on the digestive system; Z90.49 Acquired absence of other specified parts of digestive tract; Z79.52 Long term (current) use of systemic steroids; R29.6 Repeated falls; E87.6 Hypokalemia; E83.42 Hypomagnesemia; E86.0 Dehydration; R62.7 Adult failure to thrive; R76.11 Nonspecific reaction to tuberculin skin test without active tuberculosis; G47.33 Obstructive sleep apnea (adult) (pediatric); E03.9 Hypothyroidism, unspecified; R11.2 Nausea with vomiting, unspecified; M79.605 Pain in left leg; M79.604 Pain in right leg
CPT/HCPCS: 36415; 80048; 80053; 85027; 97162; 97530; 99223; 99239; 99285; J1650; 81003; 81015; 83735; 84443; 85025; 85610; 85730; 87086; 93970; 99284; J1720; J3490

== ENCOUNTER 2018-08-04 12:14 | Outpatient (REF) | payer MEDICARE, SELFPAY ==
[2018-08-04 13:01] LABS: HCT 34.3 % (36.0-46.0); HGB 10.4 g/dL (12.0-15.5); Mean Corp. HGB Concentration 30.3 g/dL (32.0-36.0); Mean Corpuscular Hemoglobin 27.4 pg (27.0-33.0); Mean Corpuscular Volume 90.5 fL (80-95); Mean Platelet Volume 11.2 fL (8.0-11.0); Platelet Count 377 x1000/uL (130-400); RBC 3.79 m/cumm (4.00-5.20); RBC Distribution Width 15.8 % (11.7-14.6); White Blood Cell Count 9.97 k/cumm (4.4-10.8)
[2018-08-04 13:02] LABS: Bilirubin Negative (Negative); Blood Trace-intact (Negative); Clarity Clear; Glucose Negative (Negative); Ketones Negative (Negative); Leukocyte Esterase Negative (Negative); Nitrite Negative (Negative); Specific Gravity 1.015 (1.005-1.025); Urobilinogen 0.2 EU/dL (Up TO 0.2)
[2018-08-04 13:12] LABS: Anion Gap 10.9 mmol/L (3-11); BUN 19 mg/dL (7-18); CO2 30.1 mmol/L (21.0-32.0); CREATININE 0.89 mg/dL (0.55-1.02); Chloride 101 mmol/L (98-107); Glucose 144 mg/dL (70-100); Magnesium 1.7 mg/dL (1.8-2.4); Sodium 142 mmol/L (136-145)
[2018-08-04 13:13] LABS: Bacteria Rare HPF (Negative); Epithelial Cells Many HPF (Negative); WBC 0-2 HPF (0-5)
[2018-08-04 13:14] LABS: C & S Indicated? No; Casts Negative LPF (Negative); Crystals Rare Amorphous HPF (Negative); Mucus Negative (Negative)
== END 2018-08-04 12:34 ==
LOC: LBN 12:14
PROVIDERS: PCP Family Medicine; Visit Provider Internal Medicine
DX: R29.6 Repeated falls (principal); R65.10 Systemic inflammatory response syndrome (SIRS) of non-infectious origin without acute organ dysfunction; Z87.440 Personal history of urinary (tract) infections; R82.90 Unspecified abnormal findings in urine; E27.49 Other adrenocortical insufficiency; K92.1 Melena; D50.9 Iron deficiency anemia, unspecified; K91.89 Other postprocedural complications and disorders of digestive system
CPT/HCPCS: 80048; 85027; 81003; 81015; 83735

== ENCOUNTER → 2018-08-06 12:59 | Outpatient (BNVA) | payer MEDICARE, SELFPAY | PROVIDERS: PCP Family Medicine; Referring Provider Family Medicine; Visit Provider Surgery | DX: S31.109D Unspecified open wound of abdominal wall, unspecified quadrant without penetration into peritoneal cavity, subsequent encounter (principal); X58.XXXD Exposure to other specified factors, subsequent encounter; E87.6 Hypokalemia; R30.0 Dysuria; R07.81 Pleurodynia ==

== ENCOUNTER 2018-08-12 15:11 | Emergency (ER) | payer MEDICARE, SELFPAY ==
[2018-08-12] VITALS (8 sets, daily range): BP systolic 172; BP diastolic 78; PULSE 77–92; RESP 16–26; TEMP 36.6; O2SAT 92–99
--- NOTE | 2018-08-12 16:32 | W.ED.GENAD ---
Discharge Plan Disposition Patient Disposition: HOME Condition: Improving Discharge Details Chief Complaint: Abd Prob Clinical Impression: Nausea vomiting and diarrhea, History of colon resection Primary Care Provider: Liz Granado ED Provider: Ammy Bailey Home Meds and New Rx's Prescriptions: Continued isoniazid 300 mg tablet 300 mg PO DAILY RF: 0 calcium carbonate-vitamin D3 [Caltrate with Vitamin D3] 600 mg(1,500mg) -800 unit tablet 1 tab PO DAILY RF: 0 ferrous gluconate 324 mg (38 mg iron) tablet 324 mg PO DAILY PRNRF: 0 bupropion HCl [Wellbutrin XL] 150 mg tablet extended release 24 hr 150 mg PO QAM RF: 0 zolpidem 12.5 mg tablet,ext release multiphase 12.5 mg PO HS Qty: 30 RF: 0 pyridoxine (vitamin B6) 25 mg tablet 25 mg PO DAILY RF: 0 multivitamin [One Daily Multivitamin] tablet 1 tab PO BID RF: 0 aspirin [Aspirin Low Dose] 81 MG tablet,delayed release (DR/EC) 81 mg PO DAILY RF: 0 folic acid 1 MG tablet 1 mg PO DAILY Qty: 90 RF: 4 mirtazapine 7.5 MG tablet 7.5 mg PO HS Qty: 90 RF: 2 levothyroxine 100 mcg tablet 100 mcg PO DAILY Qty: 90 RF: 2 bupropion HCl 300 mg tablet extended release 24 hr 300 mg PO QAM Qty: 90 RF: 2 clotrimazole 1 % Ointment 45 g topical BID RF: 0 polyethylene glycol 3350 [Miralax] 17 gram Powder In Packet 1 packet PO DAILY RF: 0 oxycodone 5 mg Capsule 5 mg PO Q6H PRN PRNRF: 0 nystatin 100,000 unit/gram Cream 60 g topical DAILY RF: 0 methylprednisolone 4 mg tablet 4 mg PO DAILY RF: 0 ibuprofen [IBU] 600 mg Tablet 600 mg PO Q6H PRN PRN (Reason: Pain) Qty: 30 RF: 0 potassium chloride 20 mEq tablet extended release 40 meq PO DAILY Qty: 14 RF: 0 No Action furosemide 20 mg tablet 40 mg PO BID Qty: 120 RF: 3 Discharge Instructions Instructions: Acute Nausea and Vomiting (ED) Additional Instructions: Take the Zofran as needed and directed for any nausea or vomiting. Drink plenty of fluids and get plenty of rest. Follow-up with Dr. Schwarz or Dr. Young in the surgery office tomorrow. Return immediately to the emergency department any worsening or new concerning symptoms. Referrals: My Schwarz MD [ [facility] STAFF PHYSICIAN] - Hector HUBBARD,Daryl Gonzalez DO [OSTEOPATHIC DOCTOR] - Discharge Data Discharge Date/Time-TO BE ENTERED AT DEPARTURE: 08/12/18 20:52 Discharge Physician: Ammy Bailey Medical Decision Making <Gio Jhonson MD - Last Filed: 08/19/18 18:55> 16:40 -- 78yo f with mulltiple medical problems including recent bowel perforation, now s/p partial colectomy, here with abdominal pain, nausea, vomiting and loose stool that started after fall earlier today. Abdominal exam significant for tenderness in the lower abdomen right > left. Unclear if patient impacted abdomen during fall. Consider acute life threatening intrabdominal traumatic process. Plan to CT abd/pelv. NPO, IVF. Will give zofran for nausea. 17:49 -- Labs reviewed and nondiagnostic. CT pending. Care signed out to Dr. Bailey who is aware of patient presentation, current results, pending workup and plan. <Ammy Bailey DO - Last Filed: 08/12/18 20:29> Medical Records Medical records reviewed: Yes I reviewed the patient's medical records. Imaging Data Radiologic Study: Radiologist's impression: CT Abdomen and Pelvis Without Contrast FINDINGS: Lower thorax: Mitral valve annulus calcification. No acute infiltrate in either lung base. ABDOMEN: Liver: Normal. No mass. Gallbladder and bile ducts: Normal. No calcified stones. No ductal dilation. Pancreas: Normal. No ductal dilation. Spleen: Normal. No splenomegaly. Adrenals: Normal. No mass. Kidneys and ureters: Renal cortical cysts with largest being right-sided and measuring 17 mm in diameter - no followup is necessary. No hydronephrosis. No perinephric fluid collections. Stomach and bowel: Prior GI tract surgery. No generalized ileus or bowel obstruction. Appendix: No evidence of appendicitis. PELVIS: Bladder: Punctate calcified stone within the right posterior urinary bladder lumen on axial image 88 / sagittal image 86, otherwise normal urinary bladder. Reproductive: Status post hysterectomy. ABDOMEN and PELVIS: Intraperitoneal space: Normal. No free air. No significant fluid collection. Bones/joints: No acute fracture. No dislocation. Soft tissues: Small fat-containing periumbilical hernia. Approximate 2.4 x 1.8 x 5.0 cm low-density fluid collection within the lower abdominal midline anterior subcutaneous fat - considerations include seroma, or liquefied hematoma, or abscess. Vasculature: Normal. No abdominal aortic aneurysm. Lymph nodes: Normal. No enlarged lymph nodes. IMPRESSION: 1. No generalized ileus or bowel obstruction. 2. Punctate calcified stone within the right posterior urinary bladder lumen on axial image 88 / sagittal image 86, otherwise normal urinary bladder. 3. Approximate 2.4 x 1.8 x 5.0 cm low-density fluid collection within the lower abdominal midline anterior subcutaneous fat - considerations include seroma, or liquefied hematoma, or abscess. Lab Data Lab results reviewed: Yes I reviewed the patient's lab results. 08/12/18 17:00 Stool Clostridium difficile Screen - Final Laboratory Tests Range/Units 08/12/18 08/12/18 08/12/18 15:26 15:26 20:02 WBC (4.4-10.8) k/cumm 15.94 H RBC (4.00-5.20) m/cumm 4.23 Hgb (12.0-15.5) g/dL 11.8 L Hct (36.0-46.0) % 37.9 MCV (80-95) fL 89.6 MCH (27.0-33.0) pg 27.9 MCHC (32.0-36.0) g/dL 31.1 L RDW (11.7-14.6) % 15.2 H Plt Count (130-400) x1000/uL 376 MPV (8.0-11.0) fL 11.1 H Immature Gran % 0.3 Neutrophils % 79.0 Lymphocytes % 11.9 Monocytes % 8.3 Eosinophils % 0.2 Basophils % 0.3 Absolute Neutrophils (1.2-6.7) k/cumm 12.59 H Absolute Lymphocytes (1.2-3.4) k/cumm 1.90 Absolute Monocytes (0.11-0.7) k/cumm 1.32 H Absolute Eosinophils (0.0-0.7) k/cumm 0.03 Absolute Basophils (0.0-0.2) k/cumm 0.05 Sodium (136-145) mmol/L 141 Potassium (3.5-5.1) mmol/L 3.5 Chloride (98-107) mmol/L 101 Carbon Dioxide (21.0-32.0) mmol/L 30.1 Anion Gap (3-11) mmol/L 9.9 BUN (7-18) mg/dL 19 H Creatinine (0.55-1.02) mg/dL 0.94 Estimated GFR/1.73 m2 (mL/min/1.73m2) 57.74 Glucose (70-100) mg/dL 146 H Calcium (8.5-10.1) mg/dL 10.2 H Magnesium (1.8-2.4) mg/dL 2.2 Total Bilirubin (0.2-1.0) mg/dL 0.5 AST (15-37) U/L 28 ALT (12-78) U/L 51 Alkaline Phosphatase (46-116) U/L 103 Total Protein (6.4-8.2) g/dL 8.0 Albumin (3.4-5.0) g/dL 3.3 L Urine Color (Yellow) Yellow Urine Clarity Sl cloudy Urine pH (5-8) 7.5 Ur Specific [place] (1.005-1.025) 1.015 Urine Protein (Negative) mg/dL Negative Urine Ketones (Negative) mg/dL Negative Urine Blood (Negative) Negative Urine Nitrite (Negative) Negative Urine Bilirubin (Negative) Negative Urine Urobilinogen (Up TO 0.2) EU/dL 0.2 Ur Leukocyte Esterase (Negative) Negative Urine Glucose (Negative) mg/dL Negative HPI <Gio Johnson MD - Last Filed: 08/19/18 18:55> General Mode of arrival: ambulatory. Date/Time Provider Initiated Documentation: 08/12/18 16:16. Limitations to Documentation: no limitations. Information obtained by: patient and family. HPI Narrative: 78yo f with multiple medical problems including recent bowel perforation s/p partial colectomy, open abdominal wound, here with chief complaint of nausea. Patient notes moderate to severe nausea with associated vomiting and loose stool as well as abdominal pain localized to lower abdomen. Patient notes she was doing well yesterday and early this AM. She states that she was using her walker and reach to grab something and tripped and fell earlier today. She did not loose consciousness. Since the fall she has had ongoing symptoms noted above. Patient notes that she may have impacted her abdomen during the fall. She did bump her head but had no LOC and has no FLORES. Related Data Home Medications Medication Instructions Recorded Confirmed aspirin [Aspirin Low Dose] 81 mg PO DAILY tab-cap 12/20/12 08/12/18 folic acid 1 mg PO DAILY #90 tab-cap 08/27/17 08/12/18 mirtazapine 7.5 mg PO HS #90 tab-cap 02/02/18 08/12/18 levothyroxine 100 mcg tablet 100 mcg PO DAILY #90 tab-cap 05/14/18 08/12/18 pyridoxine (vitamin B6) 25 mg 25 mg PO DAILY 05/19/18 08/12/18 tablet isoniazid 300 mg tablet 300 mg PO DAILY 06/14/18 08/06/18 ibuprofen [IBU] 600 mg PO Q6H PRN PRN #30 tab 07/05/18 08/06/18 potassium chloride 40 meq PO DAILY #14 tab 07/15/18 08/12/18 bupropion HCl XL 300 mg 24 hr 300 mg PO QAM #90 tab 07/22/18 08/12/18 tablet, extended release clotrimazole 45 g TOPICAL BID 07/30/18 08/12/18 nystatin 60 g TOPICAL DAILY 07/30/18 08/12/18 oxycodone 5 mg PO Q6H PRN PRN 07/30/18 08/12/18 polyethylene glycol 3350 [Miralax] 1 packet PO DAILY 07/30/18 08/12/18 bupropion HCl XL 150 mg 24 hr 150 mg PO QAM 08/02/18 08/12/18 tablet, extended release calcium carbonate-vitamin D3 600 1 tab PO DAILY tab 08/02/18 08/12/18 mg (1,500 mg)-800 unit tablet ferrous gluconate 324 mg (38 mg 324 mg PO DAILY PRN tab 08/02/18 08/12/18 iron) tablet zolpidem ER 12.5 mg 12.5 mg PO HS #30 tab 08/02/18 08/12/18 tablet,extended release,multiphase multivitamin tablet 1 tab PO BID tab 08/06/18 08/12/18 methylprednisolone 4 mg PO DAILY 08/12/18 furosemide 20 mg tablet 40 mg PO BID #120 tab 08/18/18 Previous Rx's Medication Instructions Recorded folic acid 1 mg PO DAILY #90 tab-cap 08/27/17 mirtazapine 7.5 mg PO HS #90 tab-cap 02/02/18 levothyroxine 100 mcg tablet 100 mcg PO DAILY #90 tab-cap 05/14/18 ibuprofen [IBU] 600 mg PO Q6H PRN PRN #30 tab 07/05/18 potassium chloride 40 meq PO DAILY #14 tab 07/15/18 bupropion HCl XL 300 mg 24 hr 300 mg PO QAM #90 tab 07/22/18 tablet, extended release zolpidem ER 12.5 mg 12.5 mg PO HS #30 tab 08/02/18 tablet,extended release,multiphase furosemide 20 mg tablet 40 mg PO BID #120 tab 08/18/18 Allergies Allergy/AdvReac Type Severity Reaction Status Date / Time banana Allergy Intermediate Other (See Unverified 08/06/18 13:11 Comment) cucumber Allergy Intermediate Other (See Unverified 08/06/18 13:11 Comment) Iodinated Contrast- Oral and Allergy Unknown SWELLING; Unverified 08/06/18 13:11 IV Dye RASH [Iodinated Contrast Media - IV Dye] chloramphenicol AdvReac Severe KIDNEY Unverified 08/06/18 13:11 FAILURE tetracycline AdvReac Severe KIDNEY Unverified 08/06/18 13:11 FAILURE melon AdvReac Intermediate Cantaloupe-Abd Verified 08/06/18 13:11 pain, diarrhea ADHESIVE TAPE Allergy Intermediate takes skin Uncoded 08/06/18 13:11 off SUTURE MATERIAL Allergy Intermediate Purluent Uncoded 08/06/18 13:11 Drainage General Stated Complaint: Abd Prob JOSHUA: 3 Review of Systems <Gio Johnson MD - Last Filed: 08/19/18 18:55> Review of Systems All systems reviewed & are unremarkable except as noted in HPI and below Constitutional Reports as per HPI and Reports weakness (generalized recently) Cardiovascular Denies chest pain and Denies dyspnea Respiratory Denies cough and Denies dyspnea Gastrointestinal Reports as per HPI Neurologic Reports weakness (generalized recently) PFSH <Gio Johnson MD - Last Filed: 08/19/18 18:55> Medical History Raynaud's disease (Acute) Primary osteoarthritis of left knee (Acute 07/30/15) PMR (polymyalgia rheumatica) (Chronic 01/15/16) Osteoporosis (Acute) Osteopenia (Acute 07/30/16) Obstructive sleep apnea syndrome (Acute) Non-alcoholic fatty liver disease (Acute) Memory impairment (Acute 06/18/94) Increased body mass index (Acute) Hypothyroidism (Acute 04/05/12) Fracture, calcaneus closed (Acute 09/19/14) Excessive sweating (Acute 06/02/16) Depressive disorder (Acute) Colon polyp (Acute 06/28/18) Cataract (Acute 07/28/14) Benign paroxysmal positional vertigo (Acute) Abdominal pain (Acute 10/31/13) Insomnia (Acute) Tuberculosis (Chronic) Surgical History H/O dilation and curettage (Acute) S/P tonsillectomy (Acute) Abdominal hysterectomy (~1975) Appendectomy Bilateral salpingectomy with oophorectomy (~1975) Colonoscopy - MAC EGD - MAC (~2003) Laparoscopic, Ovarian Cystectomy Rotator Cuff Repair Family History Mother Heart disease Father Stroke Sister No problems noted. Brother No problems noted. Grandfather Essential hypertension Heart disease Grandfather No problems noted. 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/Tobacco Use Status: Former Tobacco Use alcohol intake: current alcohol intake frequency: a few times a month additional social history: DECREASED VISION Exam <Gio Johnson MD - Last Filed: 08/19/18 18:55> Const General: cooperative and no acute distress Orientation: alert and awake HENMT Head: normocephalic and atraumatic Mouth: moist mucous membranes Eyes Conjunctivae: normal conjunctivae Sclera: normal sclerae EOM: EOM intact bilaterally Neck Neck: trachea midline and supple Resp Auscultation: clear to auscultation bilaterally, no rales, no rhonchi and no wheezes Cardio Jugular venous pressure: no JVD Rate: regular rate and not tachycardic Rhythm: regular rhythm GI Inspection: non-distended and incision (healing mid lower abdomen with no dehiscence, upper abdominal wound healed) Palpation: soft, not firm, no guarding, no masses, not rigid and tender in the LLQ and in the RLQ Auscultation: hypoactive bowel sounds Skin General skin exam: no rashes or lesions noted Neuro General: alert, awake, oriented x3 and tone normal Extrem General: no edema Psych Appearance: grossly normal Mental Status: mental status grossly normal Speech and Movement: speech and movement normal Course <Gio Johnson MD - Last Filed: 08/19/18 18:55> Vital Signs Temperature 36.6 C 08/12/18 15:21 Pulse 92 H 08/12/18 15:21 Respiratory Rate 18 08/12/18 15:21 Blood Pressure 172/78 H 08/12/18 15:21 Pulse Oximetry 95 08/12/18 15:21 Temperature 36.6 C 08/12/18 15:21 Temperature Source Temporal Artery Scan 08/12/18 15:21 Pulse 92 H 08/12/18 15:21 Respiratory Rate 18 08/12/18 15:21 Respiratory Effort Non-Labored 08/12/18 15:25 Blood Pressure 172/78 H 08/12/18 15:21 Blood Pressure Position Supine 08/12/18 15:21 Pulse Oximetry 95 08/12/18 15:21 Oxygen Delivery Method Room Air 08/12/18 15:21 Oxygen Flow Rate 0 08/12/18 15:21 Pain Level 4 08/12/18 15:21 Sign Out <Gio Johnson MD - Last Filed: 08/19/18 18:55> Sign Out Data: Sign Out Comment: 17:48 -- Care signed out to Dr. Bailey. Plan to follow-up on CT, labs, reassess patient. If CT nondiagnostic and patient tolerating PO challenge, likely plan for discharge with zofran and with outpt follow-up. Last updated by Gio Johnson MD at 08/12/18 17:49 Post-Handoff Eval: Labs reviewed and note a white blood cell count of 15, remainder of labs essentially unremarkable. C. difficile negative. Patient had complained of some pinching pain with urinating and a urinalysis obtained and this was negative. CT abdomen and pelvis noted an approximate 2.4 x 1.8 x 5 cm low-density fluid collection which may be seroma versus hematoma versus abscess. This was discussed with surgery Dr. Young who came to the ED and evaluated patient and reviewed CT and does not appear c/w acute abscess at this time. Patient had previously had a wound VAC which is removed and wound is healing well. Patient feels much better, no abdominal pain, no further vomiting and requesting to go home. Dr. Young cleared patient for discharge to home with plan for follow-up in the office tomorrow. Will send home with a few tabs of Kellee. Possible diagnosis gastroenteritis. She was given another liter of IV fluids prior to discharge for possible mild dehydration. She was instructed to return to the ER with any worsening symptoms.
[2018-08-12] MEDS: Ondansetron 4 MG/2 ML VIAL IVP (16:50)
[2018-08-12] MEDS: Lactated Ringers 1,000 ML 125 ML IV (16:51)
--- NOTE | 2018-08-12 16:53 | DI.CT_ITS ---
SYMPTOMS/DIAGNOSIS: FALL, PAIN, TENDER RT LOWER ABDOMEN, RECENT PERF. CT SCAN OF THE ABDOMEN AND PELVIS: Noncontrast examination was performed. Comparison is 07/11/18. No acute findings are seen in the lung bases. The lack of IV contrast does limit evaluation of the abdominal and pelvic organs. The unenhanced liver is unremarkable. There does appear to be a lobulation of the contour of the liver with an enlarged left lobe suggesting hepatic cirrhosis. The gallbladder is negative. No biliary ductal is seen. The spleen, pancreas and adrenal glands are unremarkable. There are again seen renal cysts. No evidence of ureterolithiasis or obstruction. There is a punctate calcification seen (1-2 mm) in the dependent portion of the urinary bladder likely reflecting a stone. The reproductive organs are grossly unremarkable as visualized. The abdominal aorta is of normal caliber. No significant abdominal or pelvic adenopathy or ascites is present. The bowel shows no evidence of obstruction or inflammation. There is persistent extraluminal air seen in the pelvis inferior to the sigmoid colon. This was present on the examination from 07/11/18. There does appear to be a decrease in the amount of extraluminal air since the prior examination. There is a fluid collection seen anterior to the abdominal wall inferior to the level of the umbilicus. It appears to lie within the base of the midline incision. It measures 2.4 x 1.8 x 5 cm. There is suture material seen in the anterior abdominal wall. No acute osseous abnormality is identified. IMPRESSION: 1. No evidence of an acute bowel obstruction or ileus. 2. 2.4 x 1.8 x 5 cm fluid collection in the anterior abdominal wall deep within the incision. This may represent a seroma or hematoma. Abscess can not be excluded. 3. Slight interval decrease in the extraluminal air seen in the pelvis.
[2018-08-12 16:57] LABS: Abs Immature Grans 0.04 k/cumm (0.0-0.09); Absolute Eosinophil Count 0.03 k/cumm (0.0-0.7); Basophils % 0.3; Eosinophils % 0.2; HCT 37.9 % (36.0-46.0); HGB 11.8 g/dL (12.0-15.5); Immature Grans % 0.3; Lymphocytes % 11.9; Mean Corp. HGB Concentration 31.1 g/dL (32.0-36.0); Mean Corpuscular Hemoglobin 27.9 pg (27.0-33.0); Mean Corpuscular Volume 89.6 fL (80-95); Mean Platelet Volume 11.1 fL (8.0-11.0); Monocytes % 8.3; Platelet Count 376 x1000/uL (130-400); RBC 4.23 m/cumm (4.00-5.20); RBC Distribution Width 15.2 % (11.7-14.6); White Blood Cell Count 15.94 k/cumm (4.4-10.8)
[2018-08-12 16:58] LABS: Absolute Basophil Count 0.05 k/cumm (0.0-0.2); Absolute Monocyte Count 1.32 k/cumm (0.11-0.7); Absolute Neutrophil Count 12.59 k/cumm (1.2-6.7)
[2018-08-12 17:06] LABS: ALT 51 U/L (12-78); AST 28 U/L (15-37); Albumin 3.3 g/dL (3.4-5.0); Alkaline Phosphatase 103 U/L (46-116); Anion Gap 9.9 mmol/L (3-11); BUN 19 mg/dL (7-18); Bilirubin, Total 0.5 mg/dL (0.2-1.0); CO2 30.1 mmol/L (21.0-32.0); CREATININE 0.94 mg/dL (0.55-1.02); Calcium 10.2 mg/dL (8.5-10.1); Chloride 101 mmol/L (98-107); Estimated GFR 57.74 (mL/min/1.73m2); Glucose 146 mg/dL (70-100); Magnesium 2.2 mg/dL (1.8-2.4); Potassium 3.5 mmol/L (3.5-5.1); Sodium 141 mmol/L (136-145)
--- NOTE | 2018-08-12 18:16 | DI.VRAD_ITS ---
EXAM: CT Abdomen and Pelvis Without Contrast EXAM DATE/TIME: 08/12/2018 4:54 PM CLINICAL HISTORY: 78 years old, female; Pain; Abdominal pain TECHNIQUE: Axial computed tomography images of the abdomen and pelvis without contrast. Coronal and sagittal reformatted images were created and reviewed. COMPARISON: CT ABDOMEN/PELVIS WITHOUT (Adult) 07/09/2018 11:50 AM FINDINGS: Lower thorax: Mitral valve annulus calcification. No acute infiltrate in either lung base. ABDOMEN: Liver: Normal. No mass. Gallbladder and bile ducts: Normal. No calcified stones. No ductal dilation. Pancreas: Normal. No ductal dilation. Spleen: Normal. No splenomegaly. Adrenals: Normal. No mass. Kidneys and ureters: Renal cortical cysts with largest being right-sided and measuring 17 mm in diameter - no followup is necessary. No hydronephrosis. No perinephric fluid collections. Stomach and bowel: Prior GI tract surgery. No generalized ileus or bowel obstruction. Appendix: No evidence of appendicitis. PELVIS: Bladder: Punctate calcified stone within the right posterior urinary bladder lumen on axial image 88 / sagittal image 86, otherwise normal urinary bladder. Reproductive: Status post hysterectomy. ABDOMEN and PELVIS: Intraperitoneal space: Normal. No free air. No significant fluid collection. Bones/joints: No acute fracture. No dislocation. Soft tissues: Small fat-containing periumbilical hernia. Approximate 2.4 x 1.8 x 5.0 cm low-density fluid collection within the lower abdominal midline anterior subcutaneous fat - considerations include seroma, or liquefied hematoma, or abscess. Vasculature: Normal. No abdominal aortic aneurysm. Lymph nodes: Normal. No enlarged lymph nodes. IMPRESSION: 1. No generalized ileus or bowel obstruction. 2. Punctate calcified stone within the right posterior urinary bladder lumen on axial image 88 / sagittal image 86, otherwise normal urinary bladder. 3. Approximate 2.4 x 1.8 x 5.0 cm low-density fluid collection within the lower abdominal midline anterior subcutaneous fat - considerations include seroma, or liquefied hematoma, or abscess. Dictated and Authenticated by: Madan Wilson MD. Ordering:JAMESON Powers MD
--- NOTE | 2018-08-12 19:18 | W.SURGCON ---
Date of service: 08/12/18 Time of Service: 19:18 Assessment and Plan (1) Leukocytosis (leucocytosis): Start date: 08/12/18 Start time: 19:21 Current visit: Yes Status: Acute most likely secondary to gastroenteritis and dehydration (2) Nausea vomiting and diarrhea: Start date: 08/12/18 Start time: 19:21 Current visit: Yes Status: Acute pt says she is improved with some zofran helping (3) Dehydration: Start date: 08/12/18 Start time: 19:21 Current visit: Yes Status: Acute pt to get a total of 2 liters of NS pt thirsy and can get PO in CT shows a partially collapsed vena Cava (4) Abdominal wall fluid collections: Start date: 08/12/18 Start time: 19:21 Current visit: Yes Status: Acute unsure if abscess or retained wound vac sponge may need to be open but maybe a sterile collection and may spontaneously drain or reabsorb CT reviewed and no other significant findings (5) Gastroenteritis: Start date: 08/12/18 Start time: 19:25 Current visit: Yes Status: Acute all the symptoms along with her exam seem to be related to this supportive care and it is self limited fu in office tomorrow History of Present Illness Chief Complaint: pt was having N/V/D Narrative: pt states all is resolving, feels better after 1 liter bolus Review of Systems Constitutional Reports as per HPI Gastrointestinal Reports as per HPI, Reports diarrhea, Reports nausea and Reports vomiting [facility] Medical History Raynaud's disease (Acute) Primary osteoarthritis of left knee (Acute 07/30/15) PMR (polymyalgia rheumatica) (Chronic 01/15/16) Osteoporosis (Acute) Osteopenia (Acute 07/30/16) Obstructive sleep apnea syndrome (Acute) Non-alcoholic fatty liver disease (Acute) Memory impairment (Acute 06/18/94) Increased body mass index (Acute) Hypothyroidism (Acute 04/05/12) Fracture, calcaneus closed (Acute 09/19/14) Excessive sweating (Acute 06/02/16) Depressive disorder (Acute) Colon polyp (Acute 06/28/18) Cataract (Acute 07/28/14) Benign paroxysmal positional vertigo (Acute) Abdominal pain (Acute 10/31/13) Insomnia (Acute) Tuberculosis (Chronic) Surgical History H/O dilation and curettage (Acute) S/P tonsillectomy (Acute) Abdominal hysterectomy (~1975) Appendectomy Bilateral salpingectomy with oophorectomy (~1975) Colonoscopy - MAC EGD - MAC (~2003) Laparoscopic, Ovarian Cystectomy Rotator Cuff Repair Family History Mother Heart disease Father Stroke Sister No problems noted. Brother No problems noted. Grandfather Essential hypertension Heart disease Grandfather No problems noted. 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/Tobacco Use Status: Former Tobacco Use alcohol intake: current alcohol intake frequency: a few times a month additional social history: DECREASED VISION Exam Const General: cooperative Nutritional Appearance: obese Orientation: alert, awake and oriented x3 GI Inspection: normal to inspection Palpation: soft Percussion: normal to percussion Auscultation: normal bowel sounds Results Last Vital Signs Temp 36.6 C 08/12/18 15:21 Pulse 92 H 08/12/18 15:21 Resp 21 08/12/18 17:20 BP 172/78 H 08/12/18 15:21 Pulse Ox 96 08/12/18 17:50 Labs : 08/12/18 15:26 08/12/18 15:26 Laboratory Results - last 24 hr 08/12/18 08/12/18 15:26 15:26 WBC 15.94 H RBC 4.23 Hgb 11.8 L Hct 37.9 MCV 89.6 MCH 27.9 MCHC 31.1 L RDW 15.2 H Plt Count 376 MPV 11.1 H Immature Gran % 0.3 Neutrophils % 79.0 Lymphocytes % 11.9 Monocytes % 8.3 Eosinophils % 0.2 Basophils % 0.3 Absolute Neutrophils 12.59 H Absolute Lymphocytes 1.90 Absolute Monocytes 1.32 H Absolute Eosinophils 0.03 Absolute Basophils 0.05 Sodium 141 Potassium 3.5 Chloride 101 Carbon Dioxide 30.1 Anion Gap 9.9 BUN 19 H Creatinine 0.94 Estimated GFR/1.73 m2 57.74 Glucose 146 H Calcium 10.2 H Magnesium 2.2 Total Bilirubin 0.5 AST 28 ALT 51 Alkaline Phosphatase 103 Total Protein 8.0 Albumin 3.3 L
[2018-08-12 20:15] LABS: Bilirubin Negative (Negative); Blood Negative (Negative); Clarity Sl Cloudy; Glucose Negative (Negative); Ketones Negative (Negative); Leukocyte Esterase Negative (Negative); Nitrite Negative (Negative); Specific Gravity 1.015 (1.005-1.025); Urobilinogen 0.2 EU/dL (Up TO 0.2); pH 7.5 (5-8)
[2018-08-12] MEDS: Lactated Ringers 1,000 ML 1000 ML IV (20:46)
[2018-08-12] MEDS: Ondansetron O.D.T. 4 MG TABEF PO (20:46)
--- NOTE | 2018-09-24 16:38 | PT.INDS ---
Date of service: 09/24/18 PT Notes Inpatient Physical Therapy Discharge Summary Dates: 09/24/2018 Dates of Service: 09/12/18-09/22/18 This document is a summary of care provided to client by PT staff during above duration of stay. SUBJECTIVE: Patient was seen by [facility] [employer] in the morning of 09/22/2018 and was looking forward to SNF placement. Objective: N/A Pain: Per [employer] documentation, patient has consistently complained of back pain from compression fractures. ROM: L UE: WFL R UE: WFL L LE: WFL R LE: WFL Trunk: Flexion, not tested due to pain complaint and mobility restriction. Extension not tested due to pain complaint and mobility restriction. STRENGTH: Right Upper Extremity: Globally 5 out of 5 Left Upper Extremity: Globally 5 out of 5 Right Lower Extremity: Globally 5 out of 5 Left Lower Extremity: Globally 5 out of 5 BED MOBILITY/TRANSFERS: Supine-sit independent Sit-supine independent Sit-stand SBA Stand-sit SBA Bed-Chair SBA Chair-bed SBA GAIT: Patient able to ambulate up to 250 feet utilizing SBA and front wheel walker with repot of pain in low back area. BALANCE: Static Sitting: Good Dynamic Sitting: Good Static Standing: Fair Dynamic Standing: Fair SPECIAL TESTS: Mobility Limitations Standardized Measure [facility] AM-PAC 6 clicks Basic Mobility Inpatient Short Form: Raw Score: 23 CMS Score: 11.20% deficit ASSESSMENT: Patient is a 78-year-old female with a history of mild health conditions affecting function admitted with diagnosis of compression fracture to T12 after fall. She remains to be limited by pain in the low back area and may benefit from the use of a thoracolumbosacral orthosis to stabilize compression fracture and minimize pain . Patient received progressive strengthening, functional mobility training, HEP education training, and therapy discharge planning in order to address impairments and functional deficits. GOALS ( Met / Not Met): Goals X1 week 1. Supine-Sit SBA MET 2. Sit-Supine SBA MET 3. Sit-Stand SBA with 4WW MET 4. Stand-Sit SBA With 4WW MET 5. Bed-Chair SBA with 4WW MET 6. Gait up to 100 feet with 4WW and SBA MET 7: Independent in Home program NOT MET DISCHARGE PLAN/RECOMMENDATIONS: Patient to transfer to [facility] for continued provision of skilled physical therapy services to achieve highest functional level while reducing fall risk. Thank you for this referral. Marley Patel, PT, DPT, CLT [facility]
--- NOTE | 2018-09-24 16:44 | INDS_ITS ---
Date of service: 09/24/18 PT Notes Inpatient Physical Therapy Discharge Summary Dates: 09/24/2018 Dates of Service: 09/12/18-09/22/18 This document is a summary of care provided to client by PT staff during above duration of stay. SUBJECTIVE: Patient was seen by [employer] in the morning of 09/22/2018 and was looking forward to SNF placement. Objective: N/A Pain: Per [employer] documentation, patient has consistently complained of back pain from compression fractures. ROM: L UE: WFL R UE: WFL L LE: WFL R LE: WFL Trunk: Flexion, not tested due to pain complaint and mobility restriction. Extension not tested due to pain complaint and mobility restriction. STRENGTH: Right Upper Extremity: Globally 5 out of 5 Left Upper Extremity: Globally 5 out of 5 Right Lower Extremity: Globally 5 out of 5 Left Lower Extremity: Globally 5 out of 5 BED MOBILITY/TRANSFERS: Supine-sit independent Sit-supine independent Sit-stand SBA Stand-sit SBA Bed-Chair SBA Chair-bed SBA GAIT: Patient able to ambulate up to 250 feet utilizing SBA and front wheel walker with repot of pain in low back area. BALANCE: Static Sitting: Good Dynamic Sitting: Good Static Standing: Fair Dynamic Standing: Fair SPECIAL TESTS: Mobility Limitations Standardized Measure [facility] AM-PAC 6 clicks Basic Mobility Inpatient Short Form: Raw Score: 23 CMS Score: 11.20% deficit ASSESSMENT: Patient is a 78-year-old female with a history of mild health conditions affecting function admitted with diagnosis of compression fracture to T12 after fall. She remains to be limited by pain in the low back area and may benefit from the use of a thoracolumbosacral orthosis to stabilize compression fracture and minimize pain . Patient received progressive strengthening, functional mobility training, HEP education training, and therapy discharge planning in order to address impairments and functional deficits. GOALS ( Met / Not Met): Goals X1 week 1. Supine-Sit SBA MET 2. Sit-Supine SBA MET 3. Sit-Stand SBA with 4WW MET 4. Stand-Sit SBA With 4WW MET 5. Bed-Chair SBA with 4WW MET 6. Gait up to 100 feet with 4WW and SBA MET 7: Independent in Home program NOT MET DISCHARGE PLAN/RECOMMENDATIONS: Patient to transfer to [facility] for continued provision of skilled physical therapy services to achieve highest functional level while reducing fall risk. Thank you for this referral. Marley Patel, PT, DPT, CLT [facility]
== END 2018-08-12 20:52 | disposition home or self-care (01) ==
PROVIDERS: Student in an Organized Health Care Education/Training Program; Emergency Provider Physician Assistant; PCP Family Medicine
DX: R11.2 Nausea with vomiting, unspecified (principal); R10.31 Right lower quadrant pain; Z90.49 Acquired absence of other specified parts of digestive tract; W01.198A Fall on same level from slipping, tripping and stumbling with subsequent striking against other object, initial encounter
CPT/HCPCS: 36415; 80053; 96361; 96374; 99252; 99282; 99284; 74176; 81003; 83735; 85025; 87324; 99285; J2405

== ENCOUNTER 2018-08-23 09:06 | Outpatient (CLI) | payer MEDICARE, SELFPAY ==
[2018-08-23 11:17] LABS: Abs Immature Grans 0.07 k/cumm (0.0-0.09); Absolute Basophil Count 0.04 k/cumm (0.0-0.2); Absolute Eosinophil Count 0.05 k/cumm (0.0-0.7); Absolute Monocyte Count 1.45 k/cumm (0.11-0.7); Absolute Neutrophil Count 9.47 k/cumm (1.2-6.7); Basophils % 0.3; Eosinophils % 0.4; HCT 35.8 % (36.0-46.0); HGB 11.1 g/dL (12.0-15.5); Immature Grans % 0.5; Lymphocytes % 15.3; Mean Corpuscular Hemoglobin 27.5 pg (27.0-33.0); Mean Corpuscular Volume 88.8 fL (80-95); Mean Platelet Volume 10.8 fL (8.0-11.0); Monocytes % 11.1; Neutrophils % 72.4; Platelet Count 388 x1000/uL (130-400); RBC 4.03 m/cumm (4.00-5.20); RBC Distribution Width 15.5 % (11.7-14.6); White Blood Cell Count 13.08 k/cumm (4.4-10.8)
[2018-08-23 11:32] LABS: Iron 29 ug/dL (50-175); Total Iron Binding Capacity 323 ug/dL (250-450); Transferrin Sat 9 % (15-50)
[2018-08-23 11:47] LABS: ALT 34 U/L (12-78); AST 24 U/L (15-37); Albumin 2.9 g/dL (3.4-5.0); Alkaline Phosphatase 97 U/L (46-116); Anion Gap 7.7 mmol/L (3-11); BUN 14 mg/dL (7-18); Bilirubin, Total 0.4 mg/dL (0.2-1.0); CO2 33.3 mmol/L (21.0-32.0); CREATININE 1.14 mg/dL (0.55-1.02); Calcium 9.8 mg/dL (8.5-10.1); Chloride 100 mmol/L (98-107); Estimated GFR 46.22 (mL/min/1.73m2); Ferritin 55 ng/mL (8-388); Glucose 111 mg/dL (70-100); Potassium 3.7 mmol/L (3.5-5.1); Sodium 141 mmol/L (136-145); TSH 5.19 uIU/mL (0.358-3.74); Total Protein 7.1 g/dL (6.4-8.2)
[2018-08-23 12:12] LABS: Bilirubin Negative (Negative); Blood Moderate (Negative); Clarity Sl Cloudy; Glucose Negative (Negative); Ketones Negative (Negative); Leukocyte Esterase Trace (Negative); Nitrite Negative (Negative); Specific Gravity 1.015 (1.005-1.025); Urobilinogen 0.2 EU/dL (Up TO 0.2)
[2018-08-23 12:35] LABS: Bacteria Moderate HPF (Negative); Crystals Negative HPF (Negative); Epithelial Cells Many HPF (Negative)
[2018-08-23 12:36] LABS: C & S Indicated? No/Sq. Contamination; Casts Negative LPF (Negative); Mucus Trace (Negative)
== END 2018-08-23 09:26 ==
PROVIDERS: PCP Family Medicine; Visit Provider Family Medicine
DX: E03.9 Hypothyroidism, unspecified (principal); E61.1 Iron deficiency; M35.3 Polymyalgia rheumatica; R35.0 Frequency of micturition; R53.83 Other fatigue; R10.9 Unspecified abdominal pain
CPT/HCPCS: 36415; 80053; 81003; 81015; 82728; 83540; 83550; 84443; 85025; 87086

== ENCOUNTER 2018-09-06 15:00 | Outpatient (REF) | payer MEDICARE, SELFPAY | END 2018-09-06 15:20 | LOC: LBN 15:00 | PROVIDERS: PCP Family Medicine; Visit Provider Family Medicine | DX: R11.2 Nausea with vomiting, unspecified (principal); R19.7 Diarrhea, unspecified | CPT/HCPCS: 87324 ==

== ENCOUNTER 2018-09-10 12:27 | Outpatient (REF) | payer MEDICARE, SELFPAY | END 2018-09-10 12:47 | LOC: LBN 12:27 | PROVIDERS: PCP Family Medicine; Visit Provider Family Medicine | DX: N39.0 Urinary tract infection, site not specified (principal) | CPT/HCPCS: 87086 ==

== ENCOUNTER 2018-09-11 11:26 | Inpatient (IN) | payer MEDICARE, SELFPAY ==
[2018-09-11] VITALS (16 sets, daily range): BP systolic 112–152; BP diastolic 49–97; PULSE 62–83; RESP 12–20; TEMP 36.7–37; O2SAT 89–98
[2018-09-11] MEDS: Normal Saline Flush 10 ML SYR IVP ×3 (12:30→20:43)
--- NOTE | 2018-09-11 12:36 | DI.CT_ITS ---
SYMPTOMS/DIAGNOSIS: HEAD INJURY S/P FALL, ? ACUTE PROCESS/CERVICAL FX, THORACIC FX OR LUMBAR FX NONCONTRAST HEAD CT: No intracranial hemorrhage or skull fracture is seen. There is no evidence of infarct or mass. There are mild patchy areas of decreased attenuation in the white matter consistent with small vessel disease. IMPRESSION: No acute abnormality. CT OF THE CERVICAL SPINE: There is no evidence of fracture. There is reversal of normal cervical lordosis, which could be related to muscle spasm and degenerative changes. Degenerative disc changes are seen, greatest at C5-6 and C6-7. Facet degenerative changes are also present. There is a question of a right supraclavicular mass versus confluence of vascular structures. Contrast enhanced exam could be considered for further evaluation. IMPRESSION: Degenerative changes. Question of a right retroclavicular mass versus confluence of vessels. A contrast enhanced exam could be performed for further evaluation. CT OF THE THORACIC SPINE: There is an acute-appearing compression fracture of the anterior superior endplate of T12. No additional fractures are seen. There is no retropulsion. No posterior element involvement is seen. Degenerative changes are seen. There is no central canal stenosis or neural foraminal narrowing. IMPRESSION: Mild compression of the anterior superior endplate of T12. CT OF THE LUMBAR SPINE: No lumbar spine fractures are seen. There are multilevel degenerative disc changes. There is no significant central canal stenosis or neural foraminal narrowing. There is calcification in the abdominal aorta and iliac arteries, but no evidence of an aneurysm. Facet degenerative changes are seen, greatest at L3-4 through L5-S1. IMPRESSION: Degenerative changes. No acute abnormality.
[2018-09-11 12:59] LABS: Abs Immature Grans 0.05 k/cumm (0.0-0.09); Absolute Basophil Count 0.03 k/cumm (0.0-0.2); Absolute Eosinophil Count 0.05 k/cumm (0.0-0.7); Absolute Lymphocyte Count 1.94 k/cumm (1.2-3.4); Absolute Monocyte Count 1.24 k/cumm (0.11-0.7); Absolute Neutrophil Count 10.27 k/cumm (1.2-6.7); Basophils % 0.2; Eosinophils % 0.4; HCT 34.1 % (36.0-46.0); HGB 10.5 g/dL (12.0-15.5); Immature Grans % 0.4; Lymphocytes % 14.3; Mean Corp. HGB Concentration 30.8 g/dL (32.0-36.0); Mean Corpuscular Hemoglobin 26.9 pg (27.0-33.0); Mean Corpuscular Volume 87.2 fL (80-95); Mean Platelet Volume 9.9 fL (8.0-11.0); Monocytes % 9.1; Neutrophils % 75.6; Platelet Count 277 x1000/uL (130-400); RBC 3.91 m/cumm (4.00-5.20); RBC Distribution Width 15.3 % (11.7-14.6); White Blood Cell Count 13.58 k/cumm (4.4-10.8)
[2018-09-11 13:22] LABS: ALT 26 U/L (12-78); AST 23 U/L (15-37); Albumin 2.7 g/dL (3.4-5.0); Alkaline Phosphatase 83 U/L (46-116); Anion Gap 6.1 mmol/L (3-11); BUN 14 mg/dL (7-18); Bilirubin, Total 0.4 mg/dL (0.2-1.0); CO2 32.9 mmol/L (21.0-32.0); CREATININE 1.01 mg/dL (0.55-1.02); Calcium 9.5 mg/dL (8.5-10.1); Chloride 101 mmol/L (98-107); Estimated GFR 53.15 (mL/min/1.73m2); Glucose 87 mg/dL (70-100); Magnesium 1.7 mg/dL (1.8-2.4); Sodium 140 mmol/L (136-145); Total Protein 7.2 g/dL (6.4-8.2)
[2018-09-11 13:25] LABS: Potassium 2.7 mmol/L (3.5-5.1); Troponin I < 0.02 ng/mL (0.00-0.06)
[2018-09-11 13:34] LABS: Bilirubin Negative (Negative); Blood Negative (Negative); Clarity Clear; Glucose Negative (Negative); Ketones Negative (Negative); Leukocyte Esterase Small (Negative); Nitrite Negative (Negative); Urobilinogen 0.2 EU/dL (Up TO 0.2)
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
[2018-09-11 13:45] LABS: Bacteria Few HPF (Negative); Crystals Negative HPF (Negative); Epithelial Cells Many HPF (Negative); RBC Negative (0-2)
[2018-09-11 13:46] LABS: C & S Indicated? No/Sq. Contamination; Casts Negative LPF (Negative); Mucus Negative (Negative)
[2018-09-11] MEDS: Potassium Chloride 20 MEQ TABCR 40 MEQ PO ×2 (14:03→18:10)
[2018-09-11] MEDS: POTASSIUM CHLORIDE 20 MEQ/100 ML BAG 50 MEQ IVPB (14:08)
[2018-09-11] MEDS: Normal Saline 250 ML 500 ML IV (14:08)
--- NOTE | 2018-09-11 14:39 | DI.VRAD_ITS ---
EXAM: CT Head Without Contrast EXAM DATE/TIME: 09/11/2018 12:39 PM CLINICAL HISTORY: 78 years old, female; Pain; Other: Head and neck pain; Patient HX: Fall, rule out acute FX TECHNIQUE: Axial computed tomography images of the head/brain without contrast. All CT scans at this facility use at least one of these dose optimization techniques: automated exposure control; mA and/or kV adjustment per patient size (includes targeted exams where dose is matched to clinical indication); or iterative reconstruction. Coronal and sagittal reformatted images were created and reviewed. COMPARISON: MRA HEAD WO 04/07/2012 4:56 PM FINDINGS: Brain: Mild cerebral atrophy and ischemic leukoencephalopathy. Ventricles: Normal. No ventriculomegaly. Bones/joints: Unremarkable. No acute fracture. Sinuses: Visualized sinuses are unremarkable. No acute sinusitis. Mastoid air cells: Visualized mastoid air cells are unremarkable. No mastoid effusion. Soft tissues: Unremarkable. Vasculature: Moderate to severe calcified intracranial atherosclerotic vessel disease. IMPRESSION: No acute findings. EXAM: CT Cervical Spine Without Contrast EXAM DATE/TIME: 09/11/2018 12:39 PM CLINICAL HISTORY: 78 years old, female; Pain; Other: Head and neck pain; Patient HX: Fall, rule out acute FX TECHNIQUE: Axial computed tomography images of the cervical spine without intravenous contrast. All CT scans at this facility use at least one of these dose optimization techniques: automated exposure control; mA and/or kV adjustment per patient size (includes targeted exams where dose is matched to clinical indication); or iterative reconstruction. Coronal and sagittal reformatted images were created and reviewed. COMPARISON: MRA HEAD WO 04/07/2012 4:56 PM FINDINGS: Vertebrae: Mild kyphosis which may be secondary to patient positioning and/or muscle spasm and/or multilevel degenerative change. Mild levoscoliosis. Mild to moderate multilevel degenerative changes including degenerative disc disease, spondylosis and facet degenerative changes. Discs/Spinal canal/Neural foramina: No spinal stenosis. No neural foraminal narrowing. Soft tissues: Unremarkable. Dental: Examination is limited secondary to metallic artifact from dental fillings and/or dental hardware. Lungs: Lung apices are normal. Vasculature: Lobulated 2.5 x 2.9 x 1.8 cm right supraclavicular lesion which could represent mass versus confluence of vascular densities. Axial series 6, image 49. Followup according to the staff radiologist's final report. Mild calcified carotid artery disease. IMPRESSION: Lobulated 2.5 x 2.9 x 1.8 cm right supraclavicular lesion which could represent mass versus confluence of vascular densities. Axial series 6, image 49. Followup according to the staff radiologist's final report. No acute C-spine findings. Dictated and Authenticated by: Hadley Thompson MD. Ordering:TWILA Gimenez MD
[2018-09-11] MEDS: oxyCODONE 5 MG TAB PO ×2 (14:44→22:51)
[2018-09-11] MEDS: Diazepam 5 MG TAB PO (14:44)
--- NOTE | 2018-09-11 14:44 | DI.VRAD_ITS ---
EXAM: CT Thoracic Spine Without Contrast EXAM DATE/TIME: 09/11/2018 1:38 PM CLINICAL HISTORY: 78 years old, female; Pain; Low back pain; Pain in thoracic spine; Without myelpathy or radiculopathy; Patient HX: Fall, rule out acute FX TECHNIQUE: Axial computed tomography images of the thoracic spine without intravenous contrast. All CT scans at this facility use at least one of these dose optimization techniques: automated exposure control; mA and/or kV adjustment per patient size (includes targeted exams where dose is matched to clinical indication); or iterative reconstruction. Coronal and sagittal reformatted images were created and reviewed. COMPARISON: No relevant prior studies available. FINDINGS: Vertebrae: 5% acute anterior compression fracture of T12 involving the superior vertebral body endplate. Mild thoracic spondylosis. Discs/Spinal canal/Neural foramina: No spinal stenosis. No neural foraminal narrowing. Soft tissues: Unremarkable. Vasculature: Calcification of the thoracic aorta and/or great vessels consistent with atherosclerotic vessel disease. Lymph nodes: Calcified right hilar nodes and/or mediastinal nodes and/or lung granulomas consistent with old granulomatous disease. Heart: Severe calcified coronary artery disease. IMPRESSION: 1. Severe calcified coronary artery disease. 2. 5% acute anterior compression fracture of T12 involving the superior vertebral body endplate. EXAM: CT Lumbar Spine Without Contrast EXAM DATE/TIME: 09/11/2018 1:38 PM CLINICAL HISTORY: 78 years old, female; Pain; Low back pain; Pain in thoracic spine; Without myelpathy or radiculopathy; Patient HX: Fall, rule out acute FX TECHNIQUE: Axial computed tomography images of the lumbar spine without intravenous contrast. All CT scans at this facility use at least one of these dose optimization techniques: automated exposure control; mA and/or kV adjustment per patient size (includes targeted exams where dose is matched to clinical indication); or iterative reconstruction. Coronal and sagittal reformatted images were created and reviewed. COMPARISON: No relevant prior studies available. FINDINGS: Vertebrae: Mild multilevel degenerative changes including degenerative disc disease, spondylosis and facet degenerative changes. Discs/Spinal canal/Neural foramina: No spinal stenosis. No neural foraminal narrowing. Soft tissues: Unremarkable. Vasculature: Calcification of the abdominal aorta and/or iliac arteries consistent with atherosclerotic vessel disease. Kidneys and ureters: Multiple right renal cysts with the largest measuring 1.8 cm. Stomach and bowel: There is anastomosis in the rectum most consistent with previous partial resection. IMPRESSION: No acute findings. Dictated and Authenticated by: Hadley Thompson MD. Ordering:TWILA Gimenez MD
--- NOTE | 2018-09-11 16:28 | HPE_ITS ---
Date of service: 09/11/18 Time of Service: 16:36 Assessment and Plan (1) Compression fracture of body of thoracic vertebra: Start date: 09/11/18 Start time: 16:30 Current visit: Yes Status: Acute She has been feeling weaker over last couple of weeks, using her walker to go to BR she fell on thursday and hit toilet, at 4 am this morning she was ambulating to BR with walker and fell hitting back on toilet a CT of her spine revealed a 5% anterior compression fracture of T12, a binder will be placed for comfort and assistance, morphine 2 mg IV has been ordered, she takes oxycodone 5 mg at home we will continue this with morphine for break through pain, lidoderm patches, PT/OT (2) Weakness: Start date: 09/11/18 Start time: 16:32 Current visit: No Status: Acute Tapered off of steroids, could be why she is feeling weaker due to adrenal insufficiency will start stress dose hydrocortisone 50 mg q 8 hours IVP (3) Adrenal insufficiency: Start date: 09/11/18 Start time: 16:33 Current visit: Yes Status: Acute Takes prednisone 4 mg po daily for PMR, in the setting of weakness will treat with stress dose IV steroids. (4) Leukocytosis (leucocytosis): Start date: 09/11/18 Start time: 16:24 Current visit: Yes Status: Chronic in the setting of steroid use for chronic adrenal insufficiency. (5) Palliative care patient: Start date: 09/11/18 Start time: 16:27 Current visit: Yes Status: Chronic Seen by Dr. Connor (6) Hypomagnesemia: Start date: 09/11/18 Start time: 16:28 Current visit: No Status: Acute repleted with slow-mag and will monitor (7) Hypokalemia: Start date: 09/11/18 Start time: 16:28 Current visit: Yes Status: Acute repleted with 40 meq po and IV for a 2.7 K level. Will continue to monitor and replete as necessary (8) PMR (polymyalgia rheumatica): Start date: 09/11/18 Start time: 16:29 Current visit: No Status: Chronic See above (9) Obstructive sleep apnea syndrome: Start date: 09/11/18 Start time: 16:34 Current visit: No Status: Acute (10) Pain management: Start date: 09/11/18 Start time: 16:35 Current visit: Yes Status: Acute Will need pain management and control secondary to T12 compression fracture. Will continue home medication oxycodone and add morphine for break through pain with lidoderm patches. History of Present Illness Chief Complaint: Compression Fracture Narrative: Mrs. Manuel, is a 78 y.o Female with PMH of adrenal insufficiency, PMR, she presents to [facility] emergency department today after a fall c/o back pain. Mrs. Manuel has a hx of PMR, Adrenal insufficiency, Bowel Perforation s/p colonoscopy which she was admitted to our service for in June. RIZWAN, Chronic Leukocytosis, hypokalemia, she takes 4 mg prednisone daily for PMR and she was on a tapering dose when she was discharged from our hospital 08/01/2018. She s tates that over the last couple weeks she has been feeling weaker and weaker. She was ambulating to the BR last thursday and fell on the toilet. At 4 am this morning, she was ambulating to the BR again and fell on the toilet, however today she tried taking her oxycodone and that gave her no relief so she decided to be seen. A CT of the spine showed 5% acute anterior compression fracture of T12. She also had a CT of the head which is questionable for calcified intracranial vessel disease per virtual radiology, we will monitor and f/u as necessary. She will need adequate pain control, she takes oxycodone 5 mg po every 6 hours, which will be continued with morphine 2 mg every 4 hours for break through pain. Lidoderm patch was ordered and a binder for assistance. PT/OT will work with her. Given the increase in weakness this could be from adrenal insufficiency. She was started on a stress dose of hydrocortisone 50 mg IVP every 8 hours. She states her ceramic sprayer is trying to wean her off prednisone for a steroid shot, unknown what type. She has chronic leukocytosis in the setting of steroid use. We will continue to monitor, unlikely it is infectious as she is afebrile, not tachycardic, or tachypenic with no sx of infection. She does present with hypokalemia and hypomagnesium, she was started on 40 meq po potassium with 4 10meq runs of potassium and her level will be monitored. She was started on slow-mag for a 1.7 mag level and will be monitored. Review of Systems Constitutional Reports as per [facility] Eyes Reports system reviewed and no additional complaints, except as docu ENT Reports system reviewed and no additional complaints, except as docu Cardiovascular Reports system reviewed and no additional complaints, except as docu Respiratory Reports system reviewed and no additional complaints, except as docu Gastrointestinal Reports system reviewed and no additional complaints, except as docu Genitourinary Reports system reviewed and no additional complaints, except as docu Musculoskeletal Reports as per HPI Neurologic Reports system reviewed and no additional complaints, except as docu Psychiatric Reports system reviewed and no additional complaints, except as docu Endocrine Reports as per HPI Hematologic/Lymphatic Reports system reviewed and no additional complaints, except as docu Allergic/Immunologic Reports system reviewed and no additional complaints, except as docu PFSH Medical History Leukocytosis (Chronic) Hypokalemia (Acute) Primary osteoarthritis of left knee (Acute 07/30/15) PMR (polymyalgia rheumatica) (Chronic 01/15/16) Osteoporosis (Acute) Osteopenia (Acute 07/30/16) Obstructive sleep apnea syndrome (Acute) Memory impairment (Chronic 06/18/94) Increased body mass index (Acute) Hypothyroidism (Acute 04/05/12) Excessive sweating (Acute 06/02/16) Depressive disorder (Chronic) Insomnia (Acute) Tuberculosis (Chronic) Surgical History H/O dilation and curettage (Acute) S/P tonsillectomy (Acute) Abdominal hysterectomy (~1975) Appendectomy Bilateral salpingectomy with oophorectomy (~1975) Colonoscopy - MAC EGD - MAC (~2003) Laparoscopic, Ovarian Cystectomy Rotator Cuff Repair Family History Mother Heart disease Pneumonia Father Stroke Personal history of malignant neoplasm Heart disease Brother Alcohol abuse Cirrhosis with alcoholism Grandfather Essential hypertension Heart disease Grandmother Personal history of malignant neoplasm Stroke Grandmother Personal history of malignant neoplasm Son Alcohol abuse Social History household members: other details: 2 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 Meds Home Medications Medication Instructions Recorded Confirmed Type aspirin [Aspirin Low Dose] 81 mg PO DAILY tab-cap 12/20/12 09/11/18 History folic acid 1 mg PO DAILY #90 tab-cap 08/27/17 09/11/18 Rx pyridoxine (vitamin B6) 25 mg 25 mg PO DAILY 05/19/18 09/11/18 History tablet isoniazid 300 mg tablet 300 mg PO DAILY 06/14/18 09/11/18 History ibuprofen [IBU] 600 mg PO Q6H PRN PRN #30 tab 07/05/18 09/11/18 Rx potassium chloride 40 meq PO DAILY #14 tab 07/15/18 09/11/18 Rx bupropion HCl XL 300 mg 24 hr 300 mg PO QAM #90 tab 07/22/18 08/31/18 Rx tablet, extended release clotrimazole 45 g TOPICAL BID 07/30/18 09/11/18 History nystatin 60 g TOPICAL DAILY 07/30/18 09/11/18 History oxycodone 5 mg PO Q6H PRN PRN 07/30/18 09/11/18 History polyethylene glycol 3350 [Miralax] 1 packet PO DAILY 07/30/18 09/11/18 History bupropion HCl XL 150 mg 24 hr 150 mg PO QAM 08/02/18 09/11/18 History tablet, extended release calcium carbonate-vitamin D3 600 1 tab PO DAILY tab 08/02/18 09/11/18 History mg (1,500 mg)-800 unit tablet multivitamin tablet 1 tab PO BID tab 08/06/18 09/11/18 History methylprednisolone 4 mg PO DAILY 08/12/18 09/11/18 History levothyroxine 125 mcg capsule 125 mcg PO DAILY #30 cap 08/23/18 09/11/18 Rx levothyroxine 125 mcg tablet 125 mcg PO DAILY #30 tab 08/25/18 09/11/18 Rx mirtazapine 7.5 mg tablet 7.5 mg PO HS #90 tab-cap 08/30/18 09/11/18 Rx zolpidem ER 12.5 mg 12.5 mg PO HS #30 tab 08/30/18 09/11/18 Rx tablet,extended release,multiphase ferrous gluconate 324 mg (38 mg 324 mg PO DAILY PRN #90 tab 08/31/18 09/11/18 Rx iron) tablet furosemide 20 mg tablet 40 mg PO DAILY tab 08/31/18 09/11/18 History Allergies Allergy/AdvReac Type Severity Reaction Status Date / Time banana Allergy Intermediate Other (See Unverified 09/11/18 11:39 Comment) cucumber Allergy Intermediate Other (See Unverified 09/11/18 11:39 Comment) Iodinated Contrast- Oral and Allergy Unknown SWELLING; Unverified 09/11/18 11:39 IV Dye RASH [Iodinated Contrast Media - IV Dye] chloramphenicol AdvReac Severe KIDNEY Unverified 09/11/18 11:39 FAILURE tetracycline AdvReac Severe KIDNEY Unverified 09/11/18 11:39 FAILURE melon AdvReac Intermediate Cantaloupe-Abd Verified 09/11/18 11:39 pain, diarrhea ADHESIVE TAPE Allergy Intermediate takes skin Uncoded 09/11/18 11:39 off SUTURE MATERIAL Allergy Intermediate Purluent Uncoded 09/11/18 11:39 Drainage Exam Const General: cooperative, healthy appearing and no acute distress Neck Neck: normal visual inspection Lymphatic: no lymphadenopathy noted and no lymphedema noted Chest Chest: normal inspection of the chest Resp Effort & Inspection: normal respiratory effort and able to speak in complete sentences Cardio Jugular venous pressure: no JVD Rate: regular rate Rhythm: regular rhythm Heart Sounds: S1 normal and S2 normal GI Inspection: normal to inspection Back/Spine/Pelvis Thoracic/Lumbar Spine: thoraco-lumbar ROM limited and thoracic spinal tenderness Other: compression fx of T12 Skin General skin exam: scars (to abdomen s/p perforation from colonoscopy) Neuro General: alert, awake and oriented x3 Extrem General: normal to inspection Results Labs : 09/11/18 12:30 09/11/18 12:30 Laboratory Results - last 24 hr 09/11/18 09/11/18 09/11/18 12:30 12:30 13:30 WBC 13.58 H RBC 3.91 L Hgb 10.5 L Hct 34.1 L MCV 87.2 MCH 26.9 L MCHC 30.8 L RDW 15.3 H Plt Count 277 D MPV 9.9 Immature Gran % 0.4 Neutrophils % 75.6 Lymphocytes % 14.3 Monocytes % 9.1 Eosinophils % 0.4 Basophils % 0.2 Absolute Neutrophils 10.27 H Absolute Lymphocytes 1.94 Absolute Monocytes 1.24 H Absolute Eosinophils 0.05 Absolute Basophils 0.03 Sodium 140 Potassium 2.7 L* Chloride 101 Carbon Dioxide 32.9 H Anion Gap 6.1 BUN 14 Creatinine 1.01 Estimated GFR/1.73 m2 53.15 Glucose 87 Calcium 9.5 Magnesium 1.7 L Total Bilirubin 0.4 AST 23 ALT 26 Alkaline Phosphatase 83 Troponin I < 0.02 Total Protein 7.2 Albumin 2.7 L Urine Color Yellow Urine Clarity Clear Urine pH 7.0 Ur Specific [place] 1.010 Urine Protein Negative Urine Ketones Negative Urine Blood Negative Urine Nitrite Negative Urine Bilirubin Negative Urine Urobilinogen 0.2 Ur Leukocyte Esterase Small H Urine RBC Negative Urine WBC 5-10 Ur Epithelial Cells Many Urine Crystals Negative Urine Bacteria Few Urine Casts Negative Urine Mucus Negative Ur Culture Indicated? No/sq. contamination Urine Glucose Negative Last Vital Signs Temp 37 C 09/11/18 11:35 Pulse 62 09/11/18 15:01 Resp 16 09/11/18 15:40 BP 148/53 H 09/11/18 15:01 Pulse Ox 94 L 09/11/18 15:20
[2018-09-11] MEDS: Normal Saline 1,000 ML 150 ML IV (17:43)
[2018-09-11] MEDS: Enoxaparin 40 MG/0.4 ML SYR SC (17:43)
[2018-09-11] MEDS: MORPHine 10 MG/ML VIAL 2 MG IVP ×2 (17:43→20:43)
[2018-09-11] MEDS: Acetaminophen 325 MG TAB 650 MG PO (17:44)
[2018-09-11] MEDS: Hydrocortisone SOD SUC. 100 MG VIAL 50 MG IVP (17:44)
[2018-09-11] MEDS: POTASSIUM CHLORIDE 10 MEQ/100 ML BAG 200 MEQ IVPB (18:10)
[2018-09-11] MEDS: Multivitamin TAB 1 TAB PO (20:45)
[2018-09-11] MEDS: Magnesium Chloride 64 MG TABCR PO (20:45)
[2018-09-11] MEDS: Mirtazapine 15 MG TAB 7.5 MG PO (22:51)
[2018-09-12] VITALS (7 sets, daily range): BP systolic 131–145; BP diastolic 65–73; PULSE 60–66; RESP 16–19; TEMP 35.9–36.7; O2SAT 93–95
[2018-09-12] MEDS: Zolpidem 10 MG TAB PO ×2 (00:01→22:42)
[2018-09-12] MEDS: Normal Saline 1,000 ML 150 ML IV ×2 (01:17→06:59)
[2018-09-12] MEDS: Hydrocortisone SOD SUC. 100 MG VIAL 50 MG IVP ×3 (02:39→19:04)
[2018-09-12] MEDS: Normal Saline Flush 10 ML SYR IVP ×3 (02:40→19:06)
[2018-09-12] MEDS: oxyCODONE 5 MG TAB PO ×3 (06:58→22:42)
[2018-09-12] MEDS: Acetaminophen 325 MG TAB 650 MG PO ×3 (06:58→19:01)
[2018-09-12 07:28] LABS: Abs Immature Grans 0.05 k/cumm (0.0-0.09); Absolute Basophil Count 0.02 k/cumm (0.0-0.2); Absolute Eosinophil Count 0.04 k/cumm (0.0-0.7); Absolute Lymphocyte Count 1.29 k/cumm (1.2-3.4); Absolute Monocyte Count 0.68 k/cumm (0.11-0.7); Basophils % 0.3; Eosinophils % 0.5; HCT 31.6 % (36.0-46.0); HGB 9.6 g/dL (12.0-15.5); Immature Grans % 0.7; Lymphocytes % 17.2; Mean Corp. HGB Concentration 30.4 g/dL (32.0-36.0); Mean Corpuscular Hemoglobin 27.1 pg (27.0-33.0); Mean Corpuscular Volume 89.3 fL (80-95); Mean Platelet Volume 10.7 fL (8.0-11.0); Monocytes % 9.1; Neutrophils % 72.2; Platelet Count 251 x1000/uL (130-400); RBC 3.54 m/cumm (4.00-5.20); RBC Distribution Width 15.4 % (11.7-14.6); White Blood Cell Count 7.51 k/cumm (4.4-10.8)
[2018-09-12 07:41] LABS: Absolute Neutrophil Count 5.42 k/cumm (1.2-6.7)
[2018-09-12 07:49] LABS: Anion Gap 6.4 mmol/L (3-11); BUN 11 mg/dL (7-18); CO2 26.6 mmol/L (21.0-32.0); Calcium 8.5 mg/dL (8.5-10.1); Chloride 109 mmol/L (98-107); Glucose 103 mg/dL (70-100); Magnesium 1.6 mg/dL (1.8-2.4); Potassium 4.3 mmol/L (3.5-5.1); Sodium 142 mmol/L (136-145)
--- NOTE | 2018-09-12 09:19 | PDOC.CMIN ---
- If Service Date Differs Date of service: 09/12/18 Time of Service: 09:19 Care Management Initial Assess REASON FOR HOSPITALIZATION:: Compression fracture PAST MEDICAL HISTORY/PAST SURGICAL HISTORY:: Perforated bowel d/t complications from colonoscopy; (06/28/18), benign paroxysmal positional vertigo, cataract, colon polyp, depressive disorder, calcaneus closed fracture, hypothyroidism, increased BMI, insomnia, memory impairment (h/o closed head injury), non-alcoholic fatty liver disease, obstructive sleep apnea, osteopenia, osteoperosis, PMR, osteoarthritis, Raynaud's disease, tuberculosis. Surgical hx: hysterectomy, appendectomy, bilateral salpingectomy with oophorectomy, colonoscopy, EGD, D&C, laparoscopic ovarian cystetomy, rotator cuff repair, tonsillectomy. PREVIOUS FUNCTIONAL STATUS/SOCIAL/FAMILY SUPPORTS:: Amanda resides in [place] with her , Matt. They have four adult children and 15 grandchildren; none of whom reside locally. Amanda is retired and reports that prior to the age of 66 she was not working and collecting disability. Her , Matt, works at [employer]. She is independent with her ADLs and transportation at baseline and reports that she uses a walker once in awhile as she occassionally gets dizzy. CURRENT FUNCTIONAL STATUS:: Riddhi is sitting up in bed when CM is into visit. She states she fell twice in 24 hours she is unsure why. She states she had a walker both times. The second fall is when she feels that she hurt her back. She was admitted for intractable pain. She is also in adrenal crisis and is receiving high-dose IV steroids. She would like to have a referral sent to the [facility], [facility], and [facility]. She feels that she needs some time to recover and that Ed needs a break from being her caregiver. ADVANCE DIRECTIVES:: On file at [facility]. Health Care Agent: Ed Colon. Has patient been provided with information about the portal?: Yes Did the patient sign up for the portal?: No CODE STATUS:: DNR/DNI INSURANCE COVERAGE / FINANCIAL ISSUES:: [employer], Medicare. CURRENT HOME/COMMUNITY SERVICES/EQUIPMENT:: Home Health, RN, PT and OT, [facility] PRIMARY CARE PHYSICIAN:: POTENTIAL DISCHARGE NEEDS:: Follow up appointment with primary care scheduled prior to patients discharge PATIENT/FAMILY EDUCATION NEEDS:: Discharge education, limitations, follow-up plan of care, asked me 3 and self-management. ANTICIPATED BARRIERS TO DISCHARGE:: None identified TRANSPORTATION:: Transportation by family to SNF facility when ready PLAN:: Riddhi be discharged to short-term rehab facility when she is medically ready per provider. She is currently receiving hydrocortisone IV, IV pain management, and IV fluids. CM to continue to provide support to patient and family discharge planning and disposition.
--- NOTE | 2018-09-12 09:27 | INITIAL_ITS ---
- If Service Date Differs Date of service: 09/12/18 Time of Service: 09:19 Care Management Initial Assess REASON FOR HOSPITALIZATION:: Compression fracture PAST MEDICAL HISTORY/PAST SURGICAL HISTORY:: Perforated bowel d/t complications from colonoscopy; (06/28/18), benign paroxysmal positional vertigo, cataract, colon polyp, depressive disorder, calcaneus closed fracture, hypothyroidism, increased BMI, insomnia, memory impairment (h/o closed head injury), non- alcoholic fatty liver disease, obstructive sleep apnea, osteopenia, osteoperosis, PMR, osteoarthritis, Raynaud's disease, tuberculosis. Surgical hx: hysterectomy, appendectomy, bilateral salpingectomy with oophorectomy, colonoscopy, EGD, D&C, laparoscopic ovarian cystetomy, rotator cuff repair, tonsillectomy. PREVIOUS FUNCTIONAL STATUS/SOCIAL/FAMILY SUPPORTS:: Amanda resides in [place] with her , Matt. They have four adult children and 15 grandchildren; none of whom reside locally. Amanda is retired and reports that prior to the age of 66 she was not working and collecting disability. Her , Matt, works at [employer]. She is independent with her ADLs and transportation at baseline and reports that she uses a walker once in awhile as she occassionally gets dizzy. CURRENT FUNCTIONAL STATUS:: Riddhi is sitting up in bed when CM is into visit. She states she fell twice in 24 hours she is unsure why. She states she had a walker both times. The second fall is when she feels that she hurt her back. She was admitted for intractable pain. She is also in adrenal crisis and is receiving high-dose IV steroids. She would like to have a referral sent to the [facility], [facility][1], and [facility]. She feels that she needs some time to recover and that Ed needs a break from being her caregiver. ADVANCE DIRECTIVES:: On file at [facility]. Health Care Agent: Ed Colon. Has patient been provided with information about the portal?: Yes Did the patient sign up for the portal?: No CODE STATUS:: DNR/DNI INSURANCE COVERAGE / FINANCIAL ISSUES:: [employer], Medicare. CURRENT HOME/COMMUNITY SERVICES/EQUIPMENT:: Home Health, RN, PT and OT, [facility] PRIMARY CARE PHYSICIAN:: POTENTIAL DISCHARGE NEEDS:: Follow up appointment with primary care scheduled prior to patients discharge PATIENT/FAMILY EDUCATION NEEDS:: Discharge education, limitations, follow-up plan of care, asked me 3 and self-management. ANTICIPATED BARRIERS TO DISCHARGE:: None identified TRANSPORTATION:: Transportation by family to SNF facility when ready PLAN:: Riddhi be discharged to short-term rehab facility when she is medically ready per provider. She is currently receiving hydrocortisone IV, IV pain management, and IV fluids. CM to continue to provide support to patient and family discharge planning and disposition.
[2018-09-12] MEDS: Furosemide 20 MG TAB 40 MG PO (09:37)
[2018-09-12] MEDS: Aspirin E.C. 81 MG TABEC PO (09:37)
[2018-09-12] MEDS: Multivitamin TAB 1 TAB PO ×2 (09:37→19:03)
[2018-09-12] MEDS: Polyethylene Glycol 3350 17 GM PACKET PO (09:37)
[2018-09-12] MEDS: Folic Acid 1 MG TAB PO (09:37)
[2018-09-12] MEDS: Calcium 600mg/Vit D 200U TAB 1 TAB PO (09:38)
[2018-09-12] MEDS: Magnesium Chloride 64 MG TABCR PO ×2 (09:38→19:03)
[2018-09-12] MEDS: Levothyroxine 125 MCG TAB PO (09:38)
[2018-09-12] MEDS: buPROPion-XL 150 MG TABCR PO (09:38)
[2018-09-12] MEDS: Pantoprazole 40 MG VIAL IVP (09:39)
[2018-09-12] MEDS: Lidocaine 5% Patch 1 PATCH TP (09:41)
[2018-09-12] MEDS: MORPHine 10 MG/ML VIAL 2 MG IVP (10:22)
[2018-09-12] MEDS: MAGNESIUM SULFATE 2 GM/50 ML BAG IVPB (10:23)
--- NOTE | 2018-09-12 10:49 | PT.INIE ---
Date of service: 09/12/18 Time of Service: 10:30 PT Notes Inpatient Physical Therapy Evaluation Date: 09/12/18 Referring Doctor: Mary Roman NP PT Orders: PT CONSULT: Manage follow per SPEC Precautions: Standard Patient Profile/Admitting Diagnosis: Orders received for this 78-year-old female who suffered a fall into the toilet this past weekend. During this incident she ended up sustaining a serious back injury and was taken to the emergency department. X-rays revealed a compression fracture at T12. She has been admitted for medical management. PMHX: Medical History Leukocytosis (Chronic) Hypokalemia (Acute) Primary osteoarthritis of left knee (Acute 07/30/15) PMR (polymyalgia rheumatica) (Chronic 01/15/16) Osteoporosis (Acute) Osteopenia (Acute 07/30/16) Obstructive sleep apnea syndrome (Acute) Memory impairment (Chronic 06/18/94) Increased body mass index (Acute) Hypothyroidism (Acute 04/05/12) Excessive sweating (Acute 06/02/16) Depressive disorder (Chronic) Insomnia (Acute) Tuberculosis (Chronic) Surgical History H/O dilation and curettage (Acute) S/P tonsillectomy (Acute) Abdominal hysterectomy (~1975) Appendectomy Bilateral salpingectomy with oophorectomy (~1975) Colonoscopy - MAC EGD - MAC (~2003) Laparoscopic, Ovarian Cystectomy Rotator Cuff Repair Social History/Home Situation: She lives at home with her who has his own set of medical issues Equipment Owned/DME: Patient utilizes a 4 wheel walker at home Subjective: Patient states she is a little sore in the back today Objective: Patient lying supine in bed head of bed to any 25 degrees Mental Status: Alert and oriented x3 to person place and time Pain: Patient states 5 out of 10 ROM: Right Upper Extremity: Within functional limits Left Upper Extremity: Within functional limits Right Lower Extremity: Within functional limits Left Lower Extremity: Within functional limits Strength: Right Upper Extremity: Globally 5 out of 5 Left Upper Extremity: Globally 5 out of 5 Right Lower Extremity: Globally 5 out of 5 Left Lower Extremity: Globally 5 out of 5 Bed Mobility/Transfers: Minimal assist required for both rolling and bed mobility Supine-sit: Min assist required Sit-stand: Min assist required into front wheel walker Stand-sit: Min assist required with front wheel walker Gait: Patient able to ambulate up to 10 feet utilizing contact-guard assist and front wheel walker Balance: Static Sitting: Good Dynamic Sitting: Good Static Standing: Fair Dynamic Standing: Poor Special Tests: Mobility Limitations Standardized Measure [facility] AM-PAC 6 clicks Basic Mobility Inpatient Short Form: Raw Score: 17 standardized Score: 42.13 CMS Score: 50.57% CMS Modifier: CK Informed Consent/Education: Patient instructed in purpose of PT consult and plan of care. ASSESSMENT: Patient is a 78-year-old female with a history of mild health conditions affecting function Admitted with diagnosis of compression fracture to T12 after fall Patient presents with the following impairment level findings: Requiring assistance with all transfers, limited ambulation tolerance, mild to moderate balance deficit Pt will benefit from skilled therapy intervention in order to remediate her functional limitations and restore patient to a more appropriate and stable functional level. Impairments are contributing to the following functional limitations: AMPAC score CMS Score: 50.57% Patient is assessed as a moderate complexity initial evaluation 35061 based on the following: History: see above Examination: see above Presentation: Evolving Decision Making: Moderate based on the impact score at 50.57% Goals: Goals X1 week 1. Supine-Sit SBA 2. Sit-Supine SBA 3. Sit-Stand SBA with 4WW 4. Stand-Sit SBA With 4WW 5. Bed-Chair SBA with 4WW 6. Gait up to 100 feet with 4WW and SBA 7: Independent in Home program Plan of Care/Treatment Plan: 1-2x/day, 7 days/week x 1 week. Plan of care has been reviewed with the MANGA ARTIST providing the service under Physical Therapy direction. Initiate Physical Therapy intervention for strengthening, bed mobility, transfers, gait, stairs, balance training, use of assistive device. DISCHARGE RECOMMENDATIONS: To home once medically and physically stable TREATMENT CODE/TIME: Moderate complexity initial evaluation 33395 20 minutes 10:30
--- NOTE | 2018-09-12 10:56 | IN_ITS ---
Date of service: 09/12/18 Time of Service: 10:30 PT Notes Inpatient Physical Therapy Evaluation Date: 09/12/18 Referring Doctor: Mary Roman NP PT Orders: PT CONSULT: Manage follow per SPEC Precautions: Standard Patient Profile/Admitting Diagnosis: Orders received for this 78-year-old female who suffered a fall into the toilet this past weekend. During this incident she ended up sustaining a serious back injury and was taken to the emergency department. X-rays revealed a compression fracture at T12. She has been admitted for medical management. PMHX: Medical History Leukocytosis (Chronic) Hypokalemia (Acute) Primary osteoarthritis of left knee (Acute 07/30/15) PMR (polymyalgia rheumatica) (Chronic 01/15/16) Osteoporosis (Acute) Osteopenia (Acute 07/30/16) Obstructive sleep apnea syndrome (Acute) Memory impairment (Chronic 06/18/94) Increased body mass index (Acute) Hypothyroidism (Acute 04/05/12) Excessive sweating (Acute 06/02/16) Depressive disorder (Chronic) Insomnia (Acute) Tuberculosis (Chronic) Surgical History H/O dilation and curettage (Acute) S/P tonsillectomy (Acute) Abdominal hysterectomy (~1975) Appendectomy Bilateral salpingectomy with oophorectomy (~1975) Colonoscopy - MAC EGD - MAC (~2003) Laparoscopic, Ovarian Cystectomy Rotator Cuff Repair Social History/Home Situation: She lives at home with her who has his own set of medical issues Equipment Owned/DME: Patient utilizes a 4 wheel walker at home Subjective: Patient states she is a little sore in the back today Objective: Patient lying supine in bed head of bed to any 25 degrees Mental Status: Alert and oriented x3 to person place and time Pain: Patient states 5 out of 10 ROM: Right Upper Extremity: Within functional limits Left Upper Extremity: Within functional limits Right Lower Extremity: Within functional limits Left Lower Extremity: Within functional limits Strength: Right Upper Extremity: Globally 5 out of 5 Left Upper Extremity: Globally 5 out of 5 Right Lower Extremity: Globally 5 out of 5 Left Lower Extremity: Globally 5 out of 5 Bed Mobility/Transfers: Minimal assist required for both rolling and bed mobility Supine-sit: Min assist required Sit-stand: Min assist required into front wheel walker Stand-sit: Min assist required with front wheel walker Gait: Patient able to ambulate up to 10 feet utilizing contact-guard assist and front wheel walker Balance: Static Sitting: Good Dynamic Sitting: Good Static Standing: Fair Dynamic Standing: Poor Special Tests: Mobility Limitations Standardized Measure [facility] AM-PAC 6 clicks Basic Mobility Inpatient Short Form: Raw Score: 17 standardized Score: 42.13 CMS Score: 50.57% CMS Modifier: CK Informed Consent/Education: Patient instructed in purpose of PT consult and plan of care. ASSESSMENT: Patient is a 78-year-old female with a history of mild health conditions affecting function Admitted with diagnosis of compression fracture to T12 after fall Patient presents with the following impairment level findings: Requiring scout tance with all transfers, limited ambulation tolerance, mild to moderate balance deficit Pt will benefit from skilled therapy intervention in order to remediate her functional limitations and restore patient to a more appropriate and stable functional level. Impairments are contributing to the following functional limitations: AMPAC score CMS Score: 50.57% Patient is assessed as a moderate complexity initial evaluation [id number] based on the following: History: see above Examination: see above Presentation: Evolving Decision Making: Moderate based on the impact score at 50.57% Goals: Goals X1 week 1. Supine-Sit SBA 2. Sit-Supine SBA 3. Sit-Stand SBA with 4WW 4. Stand-Sit SBA With 4WW 5. Bed-Chair SBA with 4WW 6. Gait up to 100 feet with 4WW and SBA 7: Independent in Home program Plan of Care/Treatment Plan: 1-2x/day, 7 days/week x 1 week. Plan of care has been reviewed with the BAND AID MACHINE OPERATOR providing the service under Physical Therapy direction. Initiate Physical Therapy intervention for strengthening, bed mobility, transfers, gait, stairs, balance training, use of assistive device. DISCHARGE RECOMMENDATIONS: To home once medically and physically stable TREATMENT CODE/TIME: Moderate complexity initial evaluation 70642 20 minutes 10:30
--- NOTE | 2018-09-12 13:47 | W.PM.PROGNOT ---
Date of Service Date of service: 09/12/18 Time of Service: 14:04 Assessment and Plan (1) Compression fracture of body of thoracic vertebra: Current visit: Yes Status: Acute Mrs. Manuel sustained a fall yesterday due from increasing weakness. CT of her spine revealed a 5% anterior compression fracture of T12, morphine 2 mg IV has been ordered, she takes oxycodone 5 mg at home we will continue this with morphine for break through pain, lidoderm patches, PT/OT, today her pain is controlled. (2) Weakness: Current visit: No Status: Acute Will continue steroid tapering (3) Adrenal insufficiency: Current visit: Yes Status: Acute Takes prednisone 4 mg po daily for PMR, in the setting of weakness will treat with stress dose IV steroids. (4) Leukocytosis (leucocytosis): Current visit: Yes Status: Chronic in the setting of steroid use for chronic adrenal insufficiency. (5) Palliative care patient: Current visit: Yes Status: Chronic Seen by Dr. Connor (6) Hypomagnesemia: Current visit: No Status: Acute repleted with slow-mag and will monitor (7) Hypokalemia: Current visit: Yes Status: Acute improved K 4.3 today, will continue to monitor and replete (8) PMR (polymyalgia rheumatica): Current visit: No Status: Chronic See above (9) Obstructive sleep apnea syndrome: Current visit: No Status: Acute (10) Pain management: Current visit: Yes Status: Acute pain management secondary to T12 compression fracture. Will continue home medication oxycodone and add morphine for break through pain with lidoderm patches. Subjective Patient reports: feels better Interval history since last seen: Mrs. Manuel, is a 78 y.o Female with PMH of adrenal insufficiency, PMR, she presents to [facility] emergency department today after a fall c/o back pain. Mrs. Manuel has a hx of PMR, Adrenal insufficiency, Bowel Perforation s/p colonoscopy which she was admitted to our service for in June. RIZWAN, Chronic Leukocytosis, hypokalemia, she takes 4 mg prednisone daily for PMR and she was on a tapering dose when she was discharged from our hospital 08/01/2018. She states that over the last couple weeks she has been feeling weaker and weaker. She was ambulating to the last thursday and fell on the toilet. At 4 am this morning, she was ambulating to the BR again and fell on the toilet, however she tried taking her oxycodone and that gave her no relief so she decided to be seen. A CT of the spine showed 5% acute anterior compression fracture of T12. She also had a CT of the head which is questionable for calcified intracranial vessel disease per virtual radiology, we will monitor and f/u as necessary. Today she is feeling better, she is not feeling as weak. Her pain is controlled. She was able to work with PT today and have minimal pain. Exam Const General: cooperative, healthy appearing and no acute distress Neck Neck: normal visual inspection Lymphatic: no lymphadenopathy noted and no lymphedema noted Chest Chest: normal inspection of the chest Resp Effort & Inspection: normal respiratory effort and able to speak in complete sentences Cardio Jugular venous pressure: no JVD Rate: regular rate Rhythm: regular rhythm Heart Sounds: S1 normal and S2 normal GI Inspection: normal to inspection Back/Spine/Pelvis Thoracic/Lumbar Spine: thoraco-lumbar ROM limited and thoracic spinal tenderness Skin General skin exam: scars (to abdomen s/p perforation from colonoscopy) Neuro General: alert, awake and oriented x3 Extrem General: normal to inspection Objective Objective Clinical Data: Abnormal lab results 09/12/18 09/12/18 Range/Units 06:36 06:36 RBC 3.54 L (4.00-5.20) m/cumm Hgb 9.6 L (12.0-15.5) g/dL Hct 31.6 L (36.0-46.0) % MCHC 30.4 L (32.0-36.0) g/dL RDW 15.4 H (11.7-14.6) % Chloride 109 H (98-107) mmol/L Glucose 103 H (70-100) mg/dL Magnesium 1.6 L (1.8-2.4) mg/dL Vital Signs Temperature 36.5 C 09/12/18 11:43 Temperature Source Tympanic 09/12/18 11:43 Pulse 65 09/12/18 11:43 Pulse Rhythm Regular 09/11/18 19:50 Pulse 83 09/11/18 15:40 Respiratory Rate 19 09/12/18 11:43 Respiratory Effort Non-Labored 09/11/18 19:50 Respiratory Depth Normal 09/11/18 19:50 Respiratory Pattern Normal 09/11/18 19:50 Blood Pressure 136/72 09/12/18 11:43 Blood Pressure Mean 79 09/11/18 15:01 Blood Pressure Position Supine 09/11/18 11:35 Pulse Oximetry 94 L 09/12/18 11:43 Oxygen Delivery Method Room Air 09/12/18 11:43 Oxygen Flow Rate 0 09/12/18 11:43 Pain Level 10 09/12/18 10:22 Intake & Output 09/11/18 09/12/18 09/12/18 23:59 11:59 23:59 Intake Total 500 / 500 2255 / 2255 Output Total 720 / 720 400 / 1050 650 / 1050 Balance -220 / -220 1855 / 1205 -650 / 1205 Weight 78.018 kg Intake: IV 360 / 360 195 / 1954 Oral 140 / 140 300 / 300 Output: Urine 720 / 720 400 / 1050 650 / 1050 Other: Urine Color Yellow Yellow Yellow Urine Appearance Clear Clear Urine Odor None Normal None Voiding Methods Toilet Toilet Toilet Laboratory Results WBC 7.51 k/cumm (4.4-10.8) D 09/12/18 06:36 RBC 3.54 m/cumm (4.00-5.20) L 09/12/18 06:36 Hgb 9.6 g/dL (12.0-15.5) L 09/12/18 06:36 Hct 31.6 % (36.0-46.0) L 09/12/18 06:36 MCV 89.3 fL (80-95) 09/12/18 06:36 MCH 27.1 pg (27.0-33.0) 09/12/18 06:36 MCHC 30.4 g/dL (32.0-36.0) L 09/12/18 06:36 RDW 15.4 % (11.7-14.6) H 09/12/18 06:36 Plt Count 251 x1000/uL (130-400) 09/12/18 06:36 MPV 10.7 fL (8.0-11.0) 09/12/18 06:36 Immature Gran % 0.7 09/12/18 06:36 Neutrophils % 72.2 09/12/18 06:36 Lymphocytes % 17.2 09/12/18 06:36 Monocytes % 9.1 09/12/18 06:36 Eosinophils % 0.5 09/12/18 06:36 Basophils % 0.3 09/12/18 06:36 Absolute Neutrophils 5.42 k/cumm (1.2-6.7) 09/12/18 06:36 Absolute Lymphocytes 1.29 k/cumm (1.2-3.4) 09/12/18 06:36 Absolute Monocytes 0.68 k/cumm (0.11-0.7) 09/12/18 06:36 Absolute Eosinophils 0.04 k/cumm (0.0-0.7) 09/12/18 06:36 Absolute Basophils 0.02 k/cumm (0.0-0.2) 09/12/18 06:36 Sodium 142 mmol/L (136-145) 09/12/18 06:36 Potassium 4.3 mmol/L (3.5-5.1) D 09/12/18 06:36 Chloride 109 mmol/L (98-107) H 09/12/18 06:36 Carbon Dioxide 26.6 mmol/L (21.0-32.0) 09/12/18 06:36 Anion Gap 6.4 mmol/L (3-11) 09/12/18 06:36 BUN 11 mg/dL (7-18) 09/12/18 06:36 Creatinine 0.80 mg/dL (0.55-1.02) 09/12/18 06:36 Estimated GFR/1.73 m2 >= 60.00 (mL/min/1.73m2) 09/12/18 06:36 Glucose 103 mg/dL (70-100) H 09/12/18 06:36 Calcium 8.5 mg/dL (8.5-10.1) 09/12/18 06:36 Magnesium 1.6 mg/dL (1.8-2.4) L 09/12/18 06:36 Total Bilirubin 0.4 mg/dL (0.2-1.0) 09/11/18 12:30 AST 23 U/L (15-37) 09/11/18 12:30 ALT 26 U/L (12-78) 09/11/18 12:30 Alkaline Phosphatase 83 U/L (46-116) 09/11/18 12:30 Troponin I < 0.02 ng/mL (0.00-0.06) 09/11/18 12:30 Total Protein 7.2 g/dL (6.4-8.2) 09/11/18 12:30 Albumin 2.7 g/dL (3.4-5.0) L 09/11/18 12:30 Urine Color Yellow (Yellow) 09/11/18 13:30 Urine Clarity Clear 09/11/18 13:30 Urine pH 7.0 (5-8) 09/11/18 13:30 Ur Specific [place] 1.010 (1.005-1.025) 09/11/18 13:30 Urine Protein Negative mg/dL (Negative) 09/11/18 13:30 Urine Ketones Negative mg/dL (Negative) 09/11/18 13:30 Urine Blood Negative (Negative) 09/11/18 13:30 Urine Nitrite Negative (Negative) 09/11/18 13:30 Urine Bilirubin Negative (Negative) 09/11/18 13:30 Urine Urobilinogen 0.2 EU/dL (Up TO 0.2) 09/11/18 13:30 Ur Leukocyte Esterase Small (Negative) H 09/11/18 13:30 Urine RBC Negative (0-2) 09/11/18 13:30 Urine WBC 5-10 HPF (0-5) 09/11/18 13:30 Ur Epithelial Cells Many HPF (Negative) 09/11/18 13:30 Urine Crystals Negative HPF (Negative) 09/11/18 13:30 Urine Bacteria Few HPF (Negative) 09/11/18 13:30 Urine Casts Negative LPF (Negative) 09/11/18 13:30 Urine Mucus Negative (Negative) 09/11/18 13:30 Ur Culture Indicated? No/sq. contamination 09/11/18 13:30 Urine Glucose Negative mg/dL (Negative) 09/11/18 13:30
--- NOTE | 2018-09-12 14:22 | PHARADMIT ---
Addendum entered by René Sahu III 09/17/18 14:53: Pharmacy Note Subjective Patient reported poor pain control. Overnight abdominal pain resolved, back back pain worsens. Objective BP- 147/83 HR-75 Pain: 1010 K+4.4 WBC-12.18 H&H- 8.8/29.3 Plts-314 Assessment IV Cipro & Flagyl continues, Morphine IV DC'D Tramadol ordered, and perhaps Ibuprofen. Medrol to PO 10mg Plan Working with pT Original Note: Addendum entered by Aide Bowman 09/15/18 16:42: Pharmacy Note Subjective abdomen CT today Objective BP-153/72 HR-95 K+3.3 mag-1.6 WBC-19.73(up) Assessment prolia given today premeds prior to CT contrast mag and K+ replacement given methylprednisolone dosing increased BM meds ordered/frequency increased Plan continue to watch VS, labs and for med changes Original Note: Admission Pharmacy Clinical Review Compression fracture s/p fall Code Status DNR/DNI Current Weight 78.018 kg Renally Cleared and Narrow Therapeutic Index Meds cRcL~44ML/MIN QTc Value / Action Taken QTC 458 BP Control, Fever BP 136/72 Afebrile pain 10/10 Electrolytes reviewed K+ 4.3, Mag 1.6 DVT Prophylaxis Lovenox 40mg Opiate Usage / Scheduled Bowel Regimen Ordered yes/yes Plt/SCr for Heparin / Enoxaparin Plt 251 SCr 0.8 INR for Warfarin H/H stable, WBC/Bands H/H 9.6/31.6 WBC 7.51 (IV steroids) Antibiotic appropriateness Cultures and Sensitivities outpt urine: no growth x48h Surgical ABX d/c within 24 hr DM control / Insulin Dosing BG 103 Heart Failure (Check EF%) (NEO's, B-Block, Diuretics) Lasix IV to PO Switch Protonix when ready from IV to oral Home Meds Reviewed Pt's own Vit B6, Ambien CR 12.5mg ( couldn't bring in today, hospitalist ordered our 10mg immed.release tablet), Pt's own Ambien put on hold Not sure Bupropion XL dose is entered correctly, will ask in morning meeting Home Meds Not Ordered Finacea topical gel, Clotrimazole cream, Ibuprofen, Nustatin powder Comments Hx of steroid use for polymyalgia rheumatica..may be the reason her fracture Palliative care patient
[2018-09-12] MEDS: Enoxaparin 40 MG/0.4 ML SYR SC (19:05)
[2018-09-12] MEDS: Mirtazapine 15 MG TAB 7.5 MG PO (22:41)
[2018-09-12] MEDS: Patch Removal 1 EACH TP (22:41)
[2018-09-13] MEDS: Hydrocortisone SOD SUC. 100 MG VIAL 50 MG IVP ×3 (02:55→13:28)
[2018-09-13 05:07] VITALS: BP 144/70; RESP 16; TEMP 35.7; O2SAT 94
[2018-09-13] MEDS: Levothyroxine 125 MCG TAB PO (06:15)
[2018-09-13 07:16] LABS: Abs Immature Grans 0.04 k/cumm (0.0-0.09); Absolute Basophil Count 0.02 k/cumm (0.0-0.2); Absolute Eosinophil Count 0.06 k/cumm (0.0-0.7); Absolute Monocyte Count 0.72 k/cumm (0.11-0.7); Basophils % 0.2; Eosinophils % 0.5; HCT 31.7 % (36.0-46.0); HGB 9.6 g/dL (12.0-15.5); Immature Grans % 0.3; Lymphocytes % 9.9; Mean Corp. HGB Concentration 30.3 g/dL (32.0-36.0); Mean Corpuscular Volume 89.3 fL (80-95); Mean Platelet Volume 10.6 fL (8.0-11.0); Neutrophils % 83.1; Platelet Count 292 x1000/uL (130-400); RBC 3.55 m/cumm (4.00-5.20); RBC Distribution Width 15.5 % (11.7-14.6); White Blood Cell Count 12.08 k/cumm (4.4-10.8)
[2018-09-13 07:20] LABS: Absolute Neutrophil Count 10.04 k/cumm (1.2-6.7)
[2018-09-13 07:25] VITALS: BP 161/63; PULSE 16; RESP 20; TEMP 36.1; O2SAT 94
[2018-09-13 07:31] LABS: Anion Gap 5.2 mmol/L (3-11); BUN 15 mg/dL (7-18); CO2 29.8 mmol/L (21.0-32.0); CREATININE 0.91 mg/dL (0.55-1.02); Calcium 9.4 mg/dL (8.5-10.1); Chloride 109 mmol/L (98-107); Estimated GFR 59.94 (mL/min/1.73m2); Glucose 117 mg/dL (70-100); Magnesium 2.2 mg/dL (1.8-2.4); Potassium 4.4 mmol/L (3.5-5.1); Sodium 144 mmol/L (136-145)
[2018-09-13] MEDS: Folic Acid 1 MG TAB PO (08:39)
[2018-09-13] MEDS: Magnesium Chloride 64 MG TABCR PO ×2 (08:39→18:43)
[2018-09-13] MEDS: Multivitamin TAB 1 TAB PO ×2 (08:39→18:43)
[2018-09-13] MEDS: Aspirin E.C. 81 MG TABEC PO (08:39)
[2018-09-13] MEDS: Furosemide 20 MG TAB 40 MG PO (08:39)
[2018-09-13] MEDS: buPROPion-XL 150 MG TABCR PO (08:39)
[2018-09-13] MEDS: Pantoprazole 40 MG VIAL IVP (08:39)
[2018-09-13] MEDS: Calcium 600mg/Vit D 200U TAB 1 TAB PO (08:39)
[2018-09-13] MEDS: Polyethylene Glycol 3350 17 GM PACKET PO (08:39)
[2018-09-13] MEDS: Normal Saline Flush 10 ML SYR IVP ×2 (08:40→13:28)
[2018-09-13] MEDS: Lidocaine 5% Patch 1 PATCH TP ×2 (08:40→16:09)
[2018-09-13] MEDS: oxyCODONE 5 MG TAB PO (10:02)
[2018-09-13 11:30] VITALS: BP 155/79; PULSE 61; RESP 16; TEMP 36.2; O2SAT 97
--- NOTE | 2018-09-13 11:45 | PDOC.CMPRO ---
- If Service Date Differs Date of service: 09/13/18 Time of Service: 11:45 Care Management Progress Note S/O: CM met with patient at the bedside and her spouse. She states her pain is a 7/10 today. She does have oral pain management. She is requesting a referral for SNF be sent to [facility], [facility] and [place]. She has decided she does not want a referral to the [facility]. CM faxed referrals to facilities she has identified as an option awaiting review. A:Riddhi is a 78 year old female admitted for compression fracture related to multiple falls at home. She also is being treated for adrenal crisis with IV steroids. P: Riddhi be discharged to short-term rehab facility when she is medically ready per provider. She is currently receiving hydrocortisone IV. CM to continue to provide support to patient and family discharge planning and disposition. family to transport to facility.
--- NOTE | 2018-09-13 14:15 | PGE_ITS ---
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 She has a lidoderm patch on , abdominal binder and her roxicodone has been increased to 10 mg every 6 hours with acetaminophen every 6 hours scheduled. We will monitor for effectiveness. (2) Weakness: Current visit: No Status: Acute changed to solucortef 50 mg q 12 for tapering as weakness is getting better in the setting of adrenal insufficiency. (3) Adrenal insufficiency: Current visit: No Status: Acute Takes prednisone 4 mg po daily for PMR, in the setting of weakness will treat with stress dose IV steroids. May need to consider this steroid dose is not sufficient for her anymore (4) Leukocytosis (leucocytosis): Current visit: No Status: Chronic in the setting of steroid use for chronic adrenal insufficiency. Improving (5) Palliative care patient: Current visit: No Status: Chronic Seen by Dr. Connor (6) Hypomagnesemia: Current visit: No Status: Acute resolved (7) Hypokalemia: Current visit: No Status: Acute resolved (8) PMR (polymyalgia rheumatica): Current visit: No Status: Chronic See above (9) Obstructive sleep apnea syndrome: Current visit: No Status: Acute (10) Pain management: Current visit: No Status: Acute pain management secondary to T12 compression fracture. see above Subjective Patient reports: feels better and still having pain Interval history since last seen: Mrs. Manuel, is a 78 y.o Female with PMH of adrenal insufficiency, PMR, she presents to [facility] emergency department today after a fall c/o back pain. Mrs. Manuel has a hx of PMR, Adrenal insufficiency, Bowel Perforation s/p colonoscopy which she was admitted to our service for in June. RIZWAN, Chronic Leukocytosis, hypokalemia, she takes 4 mg prednisone daily for PMR and she was on a tapering dose when she was discharged from our hospital 08/01/2018. She states that over the last couple weeks she has been feeling weaker and weaker. She was ambulating to the last thursday and fell on the toilet. At 4 am this morning, she was ambulating to the again and fell on the toilet, however she tried taking her oxycodone and that gave her no relief so she decided to be seen. A CT of the spine showed 5% acute anterior compression fracture of T12. She also had a CT of the head which is questionable for calcified intracranial vessel disease per virtual radiology, we will monitor and f/u as necessary. Today she is not as weak but having more pain. She agreed to an increase of her Roxicodone. Morphine has been dcd to help better manage her pain for outpatient treatment. Roxicodone was changed to 10 mg every 6 hours scheduled with acetominaphin 650 every 6 hours, continue lidoderm patches and abdominal binder. 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 Her steroids have been decreased as her weakness is subsiding and her hypokalemia is resolved. Radiology report for CT still pending. Will follow up. She has asked us to discuss with her Grinder Tender Dr. Renny Bullock at [facility] about her steroid regimen and weakness. We will follow up with him Exam Const General: cooperative, healthy appearing and no acute distress Neck Neck: normal visual inspection Lymphatic: no lymphadenopathy noted and no lymphedema noted Chest Chest: normal inspection of the chest Resp Effort & Inspection: normal respiratory effort and able to speak in complete sentences Cardio Jugular venous pressure: no JVD Rate: regular rate Rhythm: regular rhythm Heart Sounds: S1 normal and S2 normal GI Inspection: normal to inspection Back/Spine/Pelvis Thoracic/Lumbar Spine: thoraco-lumbar ROM limited and thoracic spinal tenderness Skin General skin exam: scars (to abdomen s/p perforation from colonoscopy) Neuro General: alert, awake and oriented x3 Extrem General: normal to inspection Objective Objective Clinical Data: Abnormal lab results 09/13/18 09/13/18 Range/Units 06:20 06:20 WBC 12.08 H D (4.4-10.8) k/cumm RBC 3.55 L (4.00-5.20) m/cumm Hgb 9.6 L (12.0-15.5) g/dL Hct 31.7 L (36.0-46.0) % MCHC 30.3 L (32.0-36.0) g/dL RDW 15.5 H (11.7-14.6) % Absolute Neutrophils 10.04 H (1.2-6.7) k/cumm Absolute Monocytes 0.72 H (0.11-0.7) k/cumm Chloride 109 H (98-107) mmol/L Glucose 117 H (70-100) mg/dL Vital Signs Temperature 36.2 C L 09/13/18 11:30 Temperature Source Tympanic 09/13/18 11:30 Pulse 61 09/13/18 11:30 Pulse Rhythm Regular 09/13/18 08:35 Pulse 83 09/11/18 15:40 Respiratory Rate 16 09/13/18 11:30 Respiratory Effort Non-Labored 09/13/18 08:35 Respiratory Depth Normal 09/13/18 08:35 Respiratory Pattern Normal 09/13/18 08:35 Blood Pressure 155/79 H 09/13/18 11:30 Blood Pressure Mean 79 09/11/18 15:01 Blood Pressure Position Supine 09/11/18 11:35 Pulse Oximetry 97 09/13/18 11:30 Oxygen Delivery Method Room Air 09/13/18 11:30 Oxygen Flow Rate 0 09/13/18 11:30 Pain Level 7 09/13/18 10:02 Intake & Output 09/12/18 09/13/18 09/13/18 23:59 11:59 23:59 Intake Total 1770 / 4025 270 / 520 250 / 520 Output Total 1475 / 1875 700 / 1000 300 / 1000 Balance 295 / 2150 -430 / -480 -50 / -480 Intake: IV 1050 / 3005 Oral 720 / 1020 270 / 520 250 / 520 Output: Urine 1475 / 1875 700 / 1000 300 / 1000 Other: Urine Color Yellow Yellow Yellow Straw Urine Appearance Clear Cloudy Cloudy Urine Odor Normal Strong Stool Size Moderate Stool Characteristics Formed Hard Voiding Methods Toilet Toilet Laboratory Results WBC 12.08 k/cumm (4.4-10.8) H D 09/13/18 06:20 RBC 3.55 m/cumm (4.00-5.20) L 09/13/18 06:20 Hgb 9.6 g/dL (12.0-15.5) L 09/13/18 06:20 Hct 31.7 % (36.0-46.0) L 09/13/18 06:20 MCV 89.3 fL (80-95) 09/13/18 06:20 MCH 27.0 pg (27.0-33.0) 09/13/18 06:20 MCHC 30.3 g/dL (32.0-36.0) L 09/13/18 06:20 RDW 15.5 % (11.7-14.6) H 09/13/18 06:20 Plt Count 292 x1000/uL (130-400) 09/13/18 06:20 MPV 10.6 fL (8.0-11.0) 09/13/18 06:20 Immature Gran % 0.3 09/13/18 06:20 Neutrophils % 83.1 09/13/18 06:20 Lymphocytes % 9.9 09/13/18 06:20 Monocytes % 6.0 09/13/18 06:20 Eosinophils % 0.5 09/13/18 06:20 Basophils % 0.2 09/13/18 06:20 Absolute Neutrophils 10.04 k/cumm (1.2-6.7) H 09/13/18 06:20 Absolute Lymphocytes 1.20 k/cumm (1.2-3.4) 09/13/18 06:20 Absolute Monocytes 0.72 k/cumm (0.11-0.7) H 09/13/18 06:20 Absolute Eosinophils 0.06 k/cumm (0.0-0.7) 09/13/18 06:20 Absolute Basophils 0.02 k/cumm (0.0-0.2) 09/13/18 06:20 Sodium 144 mmol/L (136-145) 09/13/18 06:20 Potassium 4.4 mmol/L (3.5-5.1) 09/13/18 06:20 Chloride 109 mmol/L (98-107) H 09/13/18 06:20 Carbon Dioxide 29.8 mmol/L (21.0-32.0) 09/13/18 06:20 Anion Gap 5.2 mmol/L (3-11) 09/13/18 06:20 BUN 15 mg/dL (7-18) 09/13/18 06:20 Creatinine 0.91 mg/dL (0.55-1.02) 09/13/18 06:20 Estimated GFR/1.73 m2 59.94 (mL/min/1.73m2) 09/13/18 06:20 Glucose 117 mg/dL (70-100) H 09/13/18 06:20 Calcium 9.4 mg/dL (8.5-10.1) 09/13/18 06:20 Magnesium 2.2 mg/dL (1.8-2.4) 09/13/18 06:20 Total Bilirubin 0.4 mg/dL (0.2-1.0) 09/11/18 12:30 AST 23 U/L (15-37) 09/11/18 12:30 ALT 26 U/L (12-78) 09/11/18 12:30 Alkaline Phosphatase 83 U/L (46-116) 09/11/18 12:30 Troponin I < 0.02 ng/mL (0.00-0.06) 09/11/18 12:30 Total Protein 7.2 g/dL (6.4-8.2) 09/11/18 12:30 Albumin 2.7 g/dL (3.4-5.0) L 09/11/18 12:30 Urine Color Yellow (Yellow) 09/11/18 13:30 Urine Clarity Clear 09/11/18 13:30 Urine pH 7.0 (5-8) 09/11/18 13:30 Ur Specific [place] 1.010 (1.005-1.025) 09/11/18 13:30 Urine Protein Negative mg/dL (Negative) 09/11/18 13:30 Urine Ketones Negative mg/dL (Negative) 09/11/18 13:30 Urine Blood Negative (Negative) 09/11/18 13:30 Urine Nitrite Negative (Negative) 09/11/18 13:30 Urine Bilirubin Negative (Negative) 09/11/18 13:30 Urine Urobilinogen 0.2 EU/dL (Up TO 0.2) 09/11/18 13:30 Ur Leukocyte Esterase Small (Negative) H 09/11/18 13:30 Urine RBC Negative (0-2) 09/11/18 13:30 Urine WBC 5-10 HPF (0-5) 09/11/18 13:30 Ur Epithelial Cells Many HPF (Negative) 09/11/18 13:30 Urine Crystals Negative HPF (Negative) 09/11/18 13:30 Urine Bacteria Few HPF (Negative) 09/11/18 13:30 Urine Casts Negative LPF (Negative) 09/11/18 13:30 Urine Mucus Negative (Negative) 09/11/18 13:30 Ur Culture Indicated? No/sq. contamination 09/11/18 13:30 Urine Glucose Negative mg/dL (Negative) 09/11/18 13:30
[2018-09-13] MEDS: Acetaminophen 325 MG TAB 650 MG PO ×2 (14:46→18:43)
--- NOTE | 2018-09-13 15:13 | CHAPLAIN ---
I had a short visit with Riddhi. On Thursday she had several family members visiting, but she was not sure anyone would be driving to visit her today because of the weather. She lives in [place] now but lived in [place] for many years. She is Mandaeism and has been visited by the priests from here from [facility]
--- NOTE | 2018-09-13 15:16 | CHAPLAIN ---
Riddhi was visiting with her Ed when I stopped in. We remembered each other from her past admission. Riddhi brought her own clothes to wear and is feeling comfortable. Ed appears to be very supportive. Riddhi said she is hoping to rehab here because he works and has already missed a lot of work days caring for her. She is pleasant and easily engages in a conversation. Riddhi is Zoroastrian and has been visited by the priests here from [facility]
--- NOTE | 2018-09-13 15:34 | PT.INTREAT ---
Date of service: 09/13/18 Time of Service: 15:34 PT Notes 09/13/18 SUBJECTIVE: Riddhi stating she is doing much better than yesterday. She complains of some discomfort in her mid back especially when getting in and out of bed. OBJECTIVE: Pt seen for two sessions of PT today. TRANSFERS Supine to sit: Mod A with head of bed elevated Sit to supine: Min A with log roll technique Sit to stand: CGA Stand to sit: CGA GAIT Device: 4WW Weight bearing: Full Assist: CGA Distance: 150' in AM, Pt declines PM ambulation stating she just returned from the shower Deviation: 1 sit rest break to her 4WW with management of breaks THEREX: UE/LE strengthening performed to her tolerance. Avoid all activities that draw on her back. See flow sheet for details. ASSESSMENT: Progressing well with her gait distance and walker management. She continues to require most assist with bed mobility due to pain in her thoracic spine. PLAN: Continue to progress towards established goals. Session # 1: 9:30-10:00 [id number] Session # 2: 2:20-2:35 [id number] Ana Rosa Fleming PTA
--- NOTE | 2018-09-13 15:37 | PTTR_ITS ---
Date of service: 09/13/18 Time of Service: 15:34 PT Notes 09/13/18 SUBJECTIVE: Riddhi stating she is doing much better than yesterday. She complains of some discomfort in her mid back especially when getting in and out of bed. OBJECTIVE: Pt seen for two sessions of PT today. TRANSFERS Supine to sit: Mod A with head of bed elevated Sit to supine: Min A with log roll technique Sit to stand: CGA Stand to sit: CGA GAIT Device: 4WW Weight bearing: Full Assist: CGA Distance: 150' in AM, Pt declines PM ambulation stating she just returned from the shower Deviation: 1 sit rest break to her 4WW with management of breaks THEREX: UE/LE strengthening performed to her tolerance. Avoid all activities that draw on her back. See flow sheet for details. ASSESSMENT: Progressing well with her gait distance and walker management. She continues to require most assist with bed mobility due to pain in her thoracic spine. PLAN: Continue to progress towards established goals. Session # 1: 9:30-10:00 [id number] Session # 2: 2:20-2:35 [id number] Ana Rosa Fleming PTA
[2018-09-13 15:57] VITALS: BP 155/76; PULSE 89; RESP 18; TEMP 36.7; O2SAT 100
[2018-09-13] MEDS: oxyCODONE 10 MG TAB PO ×2 (16:09→21:21)
[2018-09-13] MEDS: Enoxaparin 40 MG/0.4 ML SYR SC (18:09)
[2018-09-13 20:08] VITALS: BP 181/72; PULSE 69; RESP 19; TEMP 36.5; O2SAT 100
[2018-09-13] MEDS: Mirtazapine 15 MG TAB 7.5 MG PO (21:22)
[2018-09-13] MEDS: Patch Removal 1 EACH TP (21:49)
[2018-09-14] VITALS (7 sets, daily range): BP systolic 114–165; BP diastolic 53–77; PULSE 60–88; RESP 16–19; TEMP 35.9–37; O2SAT 96–97
[2018-09-14] MEDS: Hydrocortisone SOD SUC. 100 MG VIAL 50 MG IVP ×2 (02:38→13:38)
[2018-09-14] MEDS: Acetaminophen 325 MG TAB 650 MG PO ×4 (02:38→20:11)
[2018-09-14] MEDS: Levothyroxine 125 MCG TAB PO (05:00)
[2018-09-14] MEDS: oxyCODONE 10 MG TAB PO ×4 (05:00→21:26)
[2018-09-14 07:14] LABS: Abs Immature Grans 0.04 k/cumm (0.0-0.09); Absolute Basophil Count 0.01 k/cumm (0.0-0.2); Absolute Eosinophil Count 0.08 k/cumm (0.0-0.7); Absolute Lymphocyte Count 1.14 k/cumm (1.2-3.4); Absolute Monocyte Count 0.77 k/cumm (0.11-0.7); Absolute Neutrophil Count 8.72 k/cumm (1.2-6.7); Basophils % 0.1; Eosinophils % 0.7; HCT 30.5 % (36.0-46.0); HGB 9.2 g/dL (12.0-15.5); Immature Grans % 0.4; Lymphocytes % 10.6; Mean Corp. HGB Concentration 30.2 g/dL (32.0-36.0); Mean Corpuscular Hemoglobin 26.7 pg (27.0-33.0); Mean Corpuscular Volume 88.4 fL (80-95); Mean Platelet Volume 10.7 fL (8.0-11.0); Monocytes % 7.2; Platelet Count 289 x1000/uL (130-400); RBC 3.45 m/cumm (4.00-5.20); RBC Distribution Width 15.6 % (11.7-14.6); White Blood Cell Count 10.76 k/cumm (4.4-10.8)
[2018-09-14 07:28] LABS: Anion Gap 7.5 mmol/L (3-11); BUN 18 mg/dL (7-18); CO2 27.5 mmol/L (21.0-32.0); CREATININE 0.79 mg/dL (0.55-1.02); Calcium 8.6 mg/dL (8.5-10.1); Chloride 107 mmol/L (98-107); Glucose 118 mg/dL (70-100); Magnesium 1.8 mg/dL (1.8-2.4); Potassium 3.9 mmol/L (3.5-5.1); Sodium 142 mmol/L (136-145)
[2018-09-14] MEDS: Pantoprazole 40 MG VIAL IVP (07:32)
[2018-09-14] MEDS: Aspirin E.C. 81 MG TABEC PO (07:32)
[2018-09-14] MEDS: buPROPion-XL 150 MG TABCR 450 MG PO (07:32)
[2018-09-14] MEDS: Calcium 600mg/Vit D 200U TAB 1 TAB PO (07:32)
[2018-09-14] MEDS: Magnesium Chloride 64 MG TABCR PO ×2 (07:33→20:11)
[2018-09-14] MEDS: Multivitamin TAB 1 TAB PO ×2 (07:33→20:11)
[2018-09-14] MEDS: Lidocaine 5% Patch 1 PATCH TP (07:33)
[2018-09-14] MEDS: Folic Acid 1 MG TAB PO (07:33)
[2018-09-14] MEDS: Furosemide 20 MG TAB 40 MG PO (07:33)
[2018-09-14] MEDS: Polyethylene Glycol 3350 17 GM PACKET PO ×2 (07:34→22:06)
--- NOTE | 2018-09-14 08:49 | CMPROGNOTE_ITS ---
Care Management Progress Note S/O: Riddhi was lying in bed, wearing her pink sleeping outfit when CM met with her. She requested a referral be faxed to [facility] in addition to her other three selections. CM advised the following [facility]ertt [facility]: Alyssa anticipating admission resulting in no bed availability-will update if this changes [facility]: Under review; anticipate return call from [facility]: Under review [facility]: Reviewing; anticipate determination tomorrow morning. A: Riddhi is a 78 year old female admitted for compression fracture related to multiple falls at home. She also is being treated for adrenal crisis with IV steroids. P: Riddhi will be discharged to short-term rehab facility when she is medically ready per provider. She is currently receiving hydrocortisone IV. CM to continue to provide support to patient and family discharge planning and disposition. She will family to transport to facility. SNF identified for discharge; referrals faxed to [facility] and [facility].
[2018-09-14] MEDS: Normal Saline Flush 10 ML SYR IVP ×2 (09:24→13:38)
[2018-09-14] MEDS: Potassium Chloride 10 MEQ TABCR PO (10:10)
[2018-09-14] MEDS: Magnesium Oxide 400 MG TAB PO (10:10)
--- NOTE | 2018-09-14 13:03 | W.PM.PROGNOT ---
Date of Service Date of service: 09/14/18 Time of Service: 13:03 Assessment and Plan (1) Compression fracture of body of thoracic vertebra: Current visit: No Status: Acute Compression fracture at T12 noted on CT s/p fall. Currently taking oral oxycodone with lidoderm patch for pain control. Continue current regimen. Consider fentanyl patch if scheduled oxycodone is not adequate for pain control. Continue PT. Will likely need rehab prior to returning home. C-spine CT notes a question of a right retroclavicular mass versus confluence of vessels. She has a allergy to IV contrast. An MRI neck is pending. (2) Weakness: Current visit: No Status: Acute Related to adrenal insufficiency. Currently on IV hydrocortisone 50 mg q12hrs, tapered yesterday. Transition to oral medrol 10 mg daily tomorrow (equivalent to hydrocortizine 50 mg daily). Continue to monitor. (3) Adrenal insufficiency: Current visit: No Status: Acute Steroids as above. She takes prednisone 4 mg PO daily for PMR. She may require higher baseline dose. She follows with Dr. Renny Bullock at [facility]. She will follow up with him closely after discharge. (4) PMR (polymyalgia rheumatica): Current visit: No Status: Chronic Mrs. Manuel's case was discussed with her Master Lay Out Specialist today. He recommends transition to oral Medrol for discharge. He requests that we give Prolia. This has been ordered. She will transition to Medrol tomorrow as above. She will be scheduled to follow up closely with Dr. Bullock. (5) Leukocytosis (leucocytosis): Current visit: No Status: Chronic Resolved today. (6) Anemia: Current visit: No Status: Acute Appears chronic, iron deficient. Continue iron supplementation. Hematest stools. Continue PPI for GI protection. Qualifiers: Anemia type: iron deficiency Bone marrow failure anemia type: Chronic kidney disease stage: Folate deficiency anemia type: Hemolytic anemia type: Iron deficiency anemia type: other iron deficiency Other causes of anemia: Vitamin B12 deficiency anemia type: Qualified Code(s): D50.8 - Other iron deficiency anemias (7) DVT prophylaxis: Current visit: Yes Status: Acute subcutaneous lovenox. (8) Discharge planning issues: Current visit: Yes Status: Acute She is a DNR/DNI. She will likely need rehab prior to returning home. This case was discussed with Dr. Rosario who is in agreement. Subjective Interval history since last seen: Mrs. Manuel, is a 78 y.o Female with PMH of adrenal insufficiency, PMR, she presents to [facility] emergency department today after a fall with reports of back pain. She was found to have an acute compression fracture at T12 on CT. A note was also made of a question of a right retroclavicular mass versus confluence of vessels. An MRI neck is pending for today. She reports that she has no pain at rest, her pain increases with activity. She is working with PT, she continues to progress. She feels tired today, she reports that she tires easily with the pain in her back. She reports some post nasal drip and a scrathy voice, she refuses nasal spray of any kind. She reports coughing while eating today, this is unusual for her. Otherwise she denies coughing, wheezing or shortness of breath. No chest pain/pressure or palpitations. She is eating and drinking well, no nausea, vomiting or diarrhea. She had a normal bowel movement today. Exam Narrative Exam Narrative: General: pleasant and cooperative female, laying on right side in bed, in NAD. A&O, with some memory loss. HEENT: Normocephalic, atraumatic, pupils equal and round, extraocular movements intact, Mucous membranes moist. Neck: Supple, no JVD, no palpable subclavicular mass on right. Respiratory: respirations even and unlabored, lung sounds clear to auscultation throughout. Cardiac: Heart has regular rate and rhythm, no murmur appreciated. Back: tenderness on palpation of lower thoracic spine and along bilateral paraspinal musculature. Pain with range of motion, turning in bed. Extremities: 1+ pitting edema to BLEs. Pedal pulses palpable bilaterally. Objective Objective Clinical Data: Abnormal lab results 09/14/18 09/14/18 Range/Units 06:20 06:20 RBC 3.45 L (4.00-5.20) m/cumm Hgb 9.2 L (12.0-15.5) g/dL Hct 30.5 L (36.0-46.0) % MCH 26.7 L (27.0-33.0) pg MCHC 30.2 L (32.0-36.0) g/dL RDW 15.6 H (11.7-14.6) % Absolute Neutrophils 8.72 H (1.2-6.7) k/cumm Absolute Lymphocytes 1.14 L (1.2-3.4) k/cumm Absolute Monocytes 0.77 H (0.11-0.7) k/cumm Glucose 118 H (70-100) mg/dL Vital Signs Temperature 36.0 C L 09/14/18 11:05 Temperature Source Tympanic 09/14/18 11:05 Pulse 60 09/14/18 11:05 Pulse Rhythm Regular 09/14/18 00:12 Pulse 83 09/11/18 15:40 Respiratory Rate 17 09/14/18 11:05 Respiratory Effort Non-Labored 09/14/18 07:41 Respiratory Depth Normal 09/14/18 07:41 Respiratory Pattern Normal 09/14/18 07:41 Blood Pressure 114/53 L 09/14/18 11:05 Blood Pressure Mean 79 09/11/18 15:01 Blood Pressure Position Supine 09/11/18 11:35 Pulse Oximetry 96 09/14/18 11:05 Oxygen Delivery Method Room Air 09/14/18 11:05 Oxygen Flow Rate 0 09/14/18 11:05 Pain Level 7 09/14/18 10:10 Intake & Output 09/13/18 09/14/18 09/14/18 23:59 11:59 23:59 Intake Total 1060 / 1330 550 / 550 Output Total 1050 / 1750 800 / 800 Balance 10 / -420 -250 / -250 Intake: IV 10 / 10 Oral 1040 / 1310 540 / 540 Output: Urine 1050 / 1750 800 / 800 Other: Urine Color Yellow Light Bonnie Urine Appearance Clear Clear Urine Odor Normal Normal Stool Size Moderate Stool Characteristics Formed Hard Voiding Methods Toilet Toilet Laboratory Results WBC 10.76 k/cumm (4.4-10.8) 09/14/18 06:20 RBC 3.45 m/cumm (4.00-5.20) L 09/14/18 06:20 Hgb 9.2 g/dL (12.0-15.5) L 09/14/18 06:20 Hct 30.5 % (36.0-46.0) L 09/14/18 06:20 MCV 88.4 fL (80-95) 09/14/18 06:20 MCH 26.7 pg (27.0-33.0) L 09/14/18 06:20 MCHC 30.2 g/dL (32.0-36.0) L 09/14/18 06:20 RDW 15.6 % (11.7-14.6) H 09/14/18 06:20 Plt Count 289 x1000/uL (130-400) 09/14/18 06:20 MPV 10.7 fL (8.0-11.0) 09/14/18 06:20 Immature Gran % 0.4 09/14/18 06:20 Neutrophils % 81.0 09/14/18 06:20 Lymphocytes % 10.6 09/14/18 06:20 Monocytes % 7.2 09/14/18 06:20 Eosinophils % 0.7 09/14/18 06:20 Basophils % 0.1 09/14/18 06:20 Absolute Neutrophils 8.72 k/cumm (1.2-6.7) H 09/14/18 06:20 Absolute Lymphocytes 1.14 k/cumm (1.2-3.4) L 09/14/18 06:20 Absolute Monocytes 0.77 k/cumm (0.11-0.7) H 09/14/18 06:20 Absolute Eosinophils 0.08 k/cumm (0.0-0.7) 09/14/18 06:20 Absolute Basophils 0.01 k/cumm (0.0-0.2) 09/14/18 06:20 Sodium 142 mmol/L (136-145) 09/14/18 06:20 Potassium 3.9 mmol/L (3.5-5.1) 09/14/18 06:20 Chloride 107 mmol/L (98-107) 09/14/18 06:20 Carbon Dioxide 27.5 mmol/L (21.0-32.0) 09/14/18 06:20 Anion Gap 7.5 mmol/L (3-11) 09/14/18 06:20 BUN 18 mg/dL (7-18) 09/14/18 06:20 Creatinine 0.79 mg/dL (0.55-1.02) 09/14/18 06:20 Estimated GFR/1.73 m2 >= 60.00 (mL/min/1.73m2) 09/14/18 06:20 Glucose 118 mg/dL (70-100) H 09/14/18 06:20 Calcium 8.6 mg/dL (8.5-10.1) 09/14/18 06:20 Magnesium 1.8 mg/dL (1.8-2.4) 09/14/18 06:20 Total Bilirubin 0.4 mg/dL (0.2-1.0) 09/11/18 12:30 AST 23 U/L (15-37) 09/11/18 12:30 ALT 26 U/L (12-78) 09/11/18 12:30 Alkaline Phosphatase 83 U/L (46-116) 09/11/18 12:30 Troponin I < 0.02 ng/mL (0.00-0.06) 09/11/18 12:30 Total Protein 7.2 g/dL (6.4-8.2) 09/11/18 12:30 Albumin 2.7 g/dL (3.4-5.0) L 09/11/18 12:30 Urine Color Yellow (Yellow) 09/11/18 13:30 Urine Clarity Clear 09/11/18 13:30 Urine pH 7.0 (5-8) 09/11/18 13:30 Ur Specific [place] 1.010 (1.005-1.025) 09/11/18 13:30 Urine Protein Negative mg/dL (Negative) 09/11/18 13:30 Urine Ketones Negative mg/dL (Negative) 09/11/18 13:30 Urine Blood Negative (Negative) 09/11/18 13:30 Urine Nitrite Negative (Negative) 09/11/18 13:30 Urine Bilirubin Negative (Negative) 09/11/18 13:30 Urine Urobilinogen 0.2 EU/dL (Up TO 0.2) 09/11/18 13:30 Ur Leukocyte Esterase Small (Negative) H 09/11/18 13:30 Urine RBC Negative (0-2) 09/11/18 13:30 Urine WBC 5-10 HPF (0-5) 09/11/18 13:30 Ur Epithelial Cells Many HPF (Negative) 09/11/18 13:30 Urine Crystals Negative HPF (Negative) 09/11/18 13:30 Urine Bacteria Few HPF (Negative) 09/11/18 13:30 Urine Casts Negative LPF (Negative) 09/11/18 13:30 Urine Mucus Negative (Negative) 09/11/18 13:30 Ur Culture Indicated? No/sq. contamination 09/11/18 13:30 Urine Glucose Negative mg/dL (Negative) 09/11/18 13:30
--- NOTE | 2018-09-14 15:37 | PT.INTREAT ---
Date of service: 09/14/18 Time of Service: 15:37 PT Notes 09/14/18 SUBJECTIVE: Pt seen for two sessions of PT. In the AM she notes feeling good. She slept well and her pain level in her back is low. In the PM she notes 8/10 pain level in her back and is receiving morphine upon entering room. OBJECTIVE: Agreeable to PT treatment x 2 TRANSFERS Sit to stand: SBA Stand to sit: SBA GAIT Device: 4WW Weight bearing: Full Assist: CGA Distance: 200' in AM, 200' in PM Deviation: shuffling gait with cues to machine pecan picker her feet which she is able to correct. ASSESSMENT: Progressing with gait distance and endurance. She tends to have increasing back discomfort in the PM hours. No LOB during gait. PLAN: Continue to progress per established POC. Session #1: 8-8:15 [id number] Session #2 1:45-2:00 [id number] MAYCOL Garza PTA
--- NOTE | 2018-09-14 15:42 | PTTR_ITS ---
Date of service: 09/14/18 Time of Service: 15:37 PT Notes 09/14/18 SUBJECTIVE: Pt seen for two sessions of PT. In the AM she notes feeling good. She slept well and her pain level in her back is low. In the PM she notes 8/10 pain level in her back and is receiving morphine upon entering room. OBJECTIVE: Agreeable to PT treatment x 2 TRANSFERS Sit to stand: SBA Stand to sit: SBA GAIT Device: 4WW Weight bearing: Full Assist: CGA Distance: 200' in AM, 200' in PM Deviation: shuffling gait with cues to excelsior picker her feet which she is able to correct. ASSESSMENT: Progressing with gait distance and endurance. She tends to have increasing back discomfort in the PM hours. No LOB during gait. PLAN: Continue to progress per established POC. Session #1: 8-8:15 [id number] Session #2 1:45-2:00 [id number] MAYCLO Garza PTA
[2018-09-14] MEDS: Enoxaparin 40 MG/0.4 ML SYR SC (17:56)
[2018-09-14] MEDS: Patch Removal 1 EACH TP (21:27)
[2018-09-14] MEDS: Mirtazapine 15 MG TAB 7.5 MG PO (21:27)
[2018-09-15] VITALS (8 sets, daily range): BP systolic 145–169; BP diastolic 68–79; PULSE 78–103; RESP 18–22; TEMP 36.6–37.2; O2SAT 91–100
[2018-09-15] MEDS: Acetaminophen 325 MG TAB 650 MG PO ×4 (01:42→20:23)
[2018-09-15] MEDS: oxyCODONE 10 MG TAB PO ×2 (03:43→09:52)
[2018-09-15] MEDS: Levothyroxine 125 MCG TAB PO (05:18)
[2018-09-15 07:34] LABS: Anion Gap 9.3 mmol/L (3-11); BUN 16 mg/dL (7-18); CO2 25.7 mmol/L (21.0-32.0); CREATININE 0.88 mg/dL (0.55-1.02); Calcium 8.7 mg/dL (8.5-10.1); Chloride 104 mmol/L (98-107); Glucose 101 mg/dL (70-100); Magnesium 1.6 mg/dL (1.8-2.4); Potassium 3.3 mmol/L (3.5-5.1); Sodium 139 mmol/L (136-145)
[2018-09-15 07:52] LABS: Abs Immature Grans 0.08 k/cumm (0.0-0.09); Absolute Eosinophil Count 0.22 k/cumm (0.0-0.7); Absolute Monocyte Count 2.11 k/cumm (0.11-0.7); Absolute Neutrophil Count 15.39 k/cumm (1.2-6.7); Basophils % 0.2; Eosinophils % 1.1; HCT 33.5 % (36.0-46.0); HGB 10.1 g/dL (12.0-15.5); Immature Grans % 0.4; Lymphocytes % 9.6; Mean Corp. HGB Concentration 30.1 g/dL (32.0-36.0); Mean Corpuscular Hemoglobin 26.5 pg (27.0-33.0); Mean Corpuscular Volume 87.9 fL (80-95); Mean Platelet Volume 10.7 fL (8.0-11.0); Monocytes % 10.7; Platelet Count 300 x1000/uL (130-400); RBC 3.81 m/cumm (4.00-5.20); RBC Distribution Width 15.7 % (11.7-14.6); White Blood Cell Count 19.73 k/cumm (4.4-10.8)
[2018-09-15 07:53] LABS: Absolute Basophil Count 0.04 k/cumm (0.0-0.2); Absolute Lymphocyte Count 1.89 k/cumm (1.2-3.4)
[2018-09-15] MEDS: Pantoprazole 40 MG VIAL IVP (07:57)
[2018-09-15] MEDS: Normal Saline Flush 10 ML SYR IVP ×4 (07:57→15:57)
[2018-09-15] MEDS: methylPREDNISolone 4 MG TAB 10 MG PO ×2 (07:58→20:24)
[2018-09-15] MEDS: Polyethylene Glycol 3350 17 GM PACKET PO ×2 (07:58→20:24)
[2018-09-15] MEDS: Lidocaine 5% Patch 1 PATCH TP (07:58)
[2018-09-15] MEDS: Aspirin E.C. 81 MG TABEC PO (07:59)
[2018-09-15] MEDS: Calcium 600mg/Vit D 200U TAB 1 TAB PO (07:59)
[2018-09-15] MEDS: Furosemide 20 MG TAB 40 MG PO (07:59)
[2018-09-15] MEDS: Folic Acid 1 MG TAB PO (07:59)
[2018-09-15] MEDS: buPROPion-XL 150 MG TABCR 450 MG PO (07:59)
[2018-09-15] MEDS: Magnesium Chloride 64 MG TABCR PO ×2 (08:00→20:23)
[2018-09-15] MEDS: Multivitamin TAB 1 TAB PO ×2 (08:00→20:24)
[2018-09-15 08:49] LABS: Anisocytosis 1+; Basophilic Stippling Present; Diff Comment Diff Reviewed; Polychromasia Present
[2018-09-15] MEDS: Potassium Chloride 20 MEQ TABCR 40 MEQ PO ×2 (09:59→20:24)
--- NOTE | 2018-09-15 10:17 | DI.RAD_ITS ---
SYMPTOM/DIAGNOSIS: ACUTE ABD PAIN, H/O BOWEL PERFORATION, STEROIDS LEUKOCYTOSIS FLAT AND UPRIGHT ABDOMEN: Comparison is made with 07/13/18. The visualized lung bases show no acute abnormality. No free air is seen beneath the hemidiaphragms. The bowel gas pattern is nonspecific. No organomegaly is seen. Degenerative changes are seen in the spine. Suture material is seen in the abdominal wall. IMPRESSION: No definite evidence of pneumoperitoneum. The findings were discussed with Dr. Rosario on the date of the examination.
--- NOTE | 2018-09-15 10:19 | PDOC.CMPRO ---
- If Service Date Differs Date of service: 09/15/18 Time of Service: 10:19 Care Management Progress Note S/O: Riddhi was lying in bed she states that she is not feeling well today. She reports a lot of pain in her back she is being restarted on IV fluids and continues with pain management. Tawanda is reviewing her for admission anticipate she would be ready by the end of the week. A: Riddhi is a 78 year old female admitted for compression fracture related to multiple falls at home. She also is being treated for adrenal crisis with IV steroids. P: Riddhi will be discharged to short-term rehab facility when she is medically ready per provider. She is currently receiving hydrocortisone IV. CM to continue to provide support to patient and family discharge planning and disposition. She will family to transport to facility. [facility]: No beds Maple Reynaldo: Under review; anticipate return call from [facility]: Under review Tawanda: Reviewing; anticipate determination tomorrow morning.
[2018-09-15] MEDS: methylPREDNISolone SUCC 40 MG VIAL IVP ×2 (10:56→14:31)
[2018-09-15] MEDS: MAGNESIUM SULFATE 2 GM/50 ML BAG IVPB (10:56)
--- NOTE | 2018-09-15 11:21 | PT.INTREAT ---
Date of service: 09/15/18 Time of Service: 11:21 PT Notes 09/15/18 SUBJECTIVE: Pt is on the toilet when entering room. She is asking for help to get up and complains of being dizzy and in pain through her back. OBJECTIVE: TRANSFERS Sit to stand: Mod A Stand to sit: Mod A Sit to supine: Mod A x 2 GAIT Device: 4WW Weight bearing: AT Assist: Mod A Distance: 5 steps Deviation: Pt taking 5 steps off the toilet and requiring immediate sit rest break. Mod A for turning to sit onto her walker seat. She is then unable to ambulate any further and she is wheeled back to bed side. ASSESSMENT: Significant change in pt's status this morning. She apparently had a fall in the night getting off the toilet which resulted in significantly increased pain. I did check back in with pt later this morning and she does not want to get back up due to high levels of pain in her back. Will check again this afternoon. PLAN: Continue to progress as she is able to tolerate. Session #1: 8:30-8:40 [id number] Ana Rosa Fleming, MAYCOL
[2018-09-15] MEDS: Normal Saline 250 ML IV (12:52)
[2018-09-15] MEDS: Normal Saline 1,000 ML 125 ML IV (13:55)
[2018-09-15] MEDS: Denosumab 60 MG/ML SYR SC (14:30)
[2018-09-15] MEDS: diphenhydrAMINE 50 MG/ML VIAL IVP (14:30)
--- NOTE | 2018-09-15 15:43 | PGE_ITS ---
Date of Service Date of service: 09/15/18 Time of Service: 15:37 Assessment and Plan (1) Abdominal pain: Current visit: No Status: Acute Acute severe abdominal pain with an increased white blood cell count, in the setting of being on steroids and a recent history of perforated bowel after colonoscopy. Firm low abdomen, midline, below umbilicus- ? distended urinary bladder vs other. Bladder scan for PVR, place fajardo for PVR greater than 300, NPO pending CT abdomen, IV Morphine for pain, zofran for nausea. She was premedicated with IV steroids and IV benadryl per Radiology recommendations. Abdomen CT pending. Will consult general surgery if indicated. Otherwise treat based on CT findings. (2) Supraclavicular mass: Current visit: Yes Status: Acute Noted on C-spine CT. Question of a right retroclavicular mass versus confluence of vessels. She was premedicated with IV steroids and IV benadryl per Radiology recommendations. Neck CT pending. (3) Compression fracture of body of thoracic vertebra: Current visit: No Status: Acute Compression fracture at T12 noted on CT s/p fall. Currently NPO, oral oxycodone PRN with IV Morphine as needed for pain control. Continue lidoderm patch. Abdominal CT pending as above. Consider fentanyl patch if oxycodone is not adequate for pain control. Continue PT. Will likely need rehab prior to returning home. Received prolia today per Dr. Bullock, Rheumatology at [facility]. (4) Weakness: Current visit: No Status: Acute Related to adrenal insufficiency. Currently on IV hydrocortisone 50 mg q12hrs, tapered yesterday. Transitioned to oral medrol 10 mg daily today (equivalent to hydrocortizine 50 mg daily). Nursing reports increased weakness with gentle fall last night. Increase to Medrol 10 mg BID, continue to monitor. She is receiving additional steroids today for premedication in preparation for CT neck and abdomen. (5) Adrenal insufficiency: Current visit: No Status: Acute Steroids as above. She takes prednisone 4 mg PO daily for PMR chronically. She may require higher baseline dose. She follows with Dr. Renny Bullock at [facility]. Her case was discussed with Dr. Bullock- he recommends that she remain on Medrol 8-10mg daily at discharge. She will follow up with Dr. Bullock soon after discharge. (6) PMR (polymyalgia rheumatica): Current visit: No Status: Chronic Mrs. Manuel's case was discussed with her Textile Stylist today. He recommends transition to oral Medrol for discharge. He requests that we give Prolia. This has been ordered. She will transition to Medrol tomorrow as above. She will be scheduled to follow up closely with Dr. Bullock. (7) Leukocytosis (leucocytosis): Current visit: No Status: Chronic Worsened significantly today in the setting of decrease in steroid dosing. She remains afebrile. CT abdomen pending as above, UA pending. (8) Anemia: Current visit: No Status: Acute Appears chronic, iron deficient. Continue iron supplementation. Hematest stools. Continue PPI for GI protection. Qualifiers: Anemia type: iron deficiency Iron deficiency anemia type: other iron deficiency Vitamin B12 deficiency anemia type: Folate deficiency anemia type: Bone marrow failure anemia type: Hemolytic anemia type: Other causes of anemia: Chronic kidney disease stage: Qualified Code(s): D50.8 - Other iron deficiency anemias (9) DVT prophylaxis: Current visit: Yes Status: Acute subcutaneous lovenox. (10) Discharge planning issues: Current visit: Yes Status: Acute She is a DNR/DNI. She will likely need rehab prior to returning home. This case was discussed with Dr. Rosario who is in agreement. Subjective Interval history since last seen: Mrs. Manuel, is a 78 y.o Female with PMH of adrenal insufficiency, PMR, she presents to [facility] emergency department today after a fall with reports of back pain. She was found to have an acute compression fracture at T12 on CT. A note was also made of a question of a right retroclavicular mass versus confluence of vessels. An MRI neck was ordered due to an IV contrast allergy, however, today she began reporting severe abdominal pain with an increased white blood cell count, in the setting of being on steroids and a recent history of perforated bowel after colonoscopy. Given this, she was premedicated with IV steroids and IV benadryl per Radiology recom mendations and a CT neck and abdomen are currently pending. Today, she is laying in bed, she feels weak, nursing reported that she had a gentle fall to the floor last night when up to the commode. She is reporting that she has 9/10 low abdominal pain, midline that is constant. She has been passing some gas but does not think she is passing as much as she should be. She has been nauseated intermittently, she has not vomited. She does not have an appetite. Her back pain is across her lower back and she rates it as 7/10 pain. She feels poorly and generally weak. She denies dizziness, shortness of breath, coughing, wheezing, chest pain/pressure, palpitations. She has been voiding small amounts, she denies dysuria or hematuria. Exam Narrative Exam Narrative: General: pleasant and cooperative female, laying in bed, in mild distress at rest. She is A&O, with some memory loss. HEENT: Normocephalic, atraumatic, pupils equal and round, extraocular movements intact, Mucous membranes very dry. Neck: Supple, no JVD, no palpable subclavicular mass on right. Respiratory: respirations even and unlabored, lung sounds clear to auscultation throughout. Cardiac: Heart has regular rate and rhythm, no murmur appreciated. Abdomen: abdomen round, softly distended, tenderness on palpation of low abd omen, midline, below umbilicus- firm at this site only. + Bowel sounds. Extremities: mild edema to BLEs. Pedal pulses palpable bilaterally. Objective Objective Clinical Data: Abnormal lab results 09/15/18 09/15/18 Range/Units 06:10 06:10 WBC 19.73 H D (4.4-10.8) k/cumm RBC 3.81 L (4.00-5.20) m/cumm Hgb 10.1 L (12.0-15.5) g/dL Hct 33.5 L (36.0-46.0) % MCH 26.5 L (27.0-33.0) pg MCHC 30.1 L (32.0-36.0) g/dL RDW 15.7 H (11.7-14.6) % Absolute Neutrophils 15.39 H (1.2-6.7) k/cumm Absolute Monocytes 2.11 H (0.11-0.7) k/cumm Potassium 3.3 L (3.5-5.1) mmol/L Glucose 101 H (70-100) mg/dL Magnesium 1.6 L (1.8-2.4) mg/dL Vital Signs Temperature 36.6 C 09/15/18 11:13 Temperature Source Tympanic 09/15/18 11:13 Pulse 95 H 09/15/18 11:13 Pulse Rhythm Regular 09/15/18 09:06 Pulse 83 09/11/18 15:40 Respiratory Rate 20 09/15/18 11:13 Respiratory Effort Non-Labored 09/15/18 09:06 Respiratory Depth Normal 09/15/18 09:06 Respiratory Pattern Normal 09/15/18 09:06 Blood Pressure 153/72 H 09/15/18 11:13 Blood Pressure Mean 79 09/11/18 15:01 Blood Pressure Position Supine 09/11/18 11:35 Pulse Oximetry 95 09/15/18 11:13 Oxygen Delivery Method Room Air 09/15/18 11:13 Oxygen Flow Rate 0 09/15/18 11:13 Pain Level 8 09/15/18 13:14 Comment 09/15/18 03:00 Intake & Output 09/14/18 09/15/18 09/15/18 23:59 11:59 23:59 Intake Total 1040 / 1830 140 / 160 20 / 160 Output Total 600 / 1400 400 / 400 Balance 440 / 430 140 / -240 -380 / -240 Intake: IV 20 / 30 40 / 60 20 / 60 Oral 1020 / 1800 100 / 100 Output: Urine 600 / 1400 400 / 400 Other: Urine Color Straw Yellow Urine Appearance Clear Clear Clear Urine Odor Normal Normal Comment Average of 300; three readings. Stool Size Moderate Stool Characteristics Formed Brown Voiding Methods Toilet Toilet Bedside Commode Laboratory Results WBC 19.73 k/cumm (4.4-10.8) H D 09/15/18 06:10 RBC 3.81 m/cumm (4.00-5.20) L 09/15/18 06:10 Hgb 10.1 g/dL (12.0-15.5) L 09/15/18 06:10 Hct 33.5 % (36.0-46.0) L 09/15/18 06:10 MCV 87.9 fL (80-95) 09/15/18 06:10 MCH 26.5 pg (27.0-33.0) L 09/15/18 06:10 MCHC 30.1 g/dL (32.0-36.0) L 09/15/18 06:10 RDW 15.7 % (11.7-14.6) H 09/15/18 06:10 Plt Count 300 x1000/uL (130-400) 09/15/18 06:10 MPV 10.7 fL (8.0-11.0) 09/15/18 06:10 Immature Gran % 0.4 09/15/18 06:10 Neutrophils % 78.0 09/15/18 06:10 Lymphocytes % 9.6 09/15/18 06:10 Monocytes % 10.7 09/15/18 06:10 Eosinophils % 1.1 09/15/18 06:10 Basophils % 0.2 09/15/18 06:10 Absolute Neutrophils 15.39 k/cumm (1.2-6.7) H 09/15/18 06:10 Absolute Lymphocytes 1.89 k/cumm (1.2-3.4) 09/15/18 06:10 Absolute Monocytes 2.11 k/cumm (0.11-0.7) H 09/15/18 06:10 Absolute Eosinophils 0.22 k/cumm (0.0-0.7) 09/15/18 06:10 Absolute Basophils 0.04 k/cumm (0.0-0.2) 09/15/18 06:10 Differential Comment Diff reviewed 09/15/18 06:10 RBC Morphology See below 09/15/18 06:10 Polychromasia Present 09/15/18 06:10 Basophilic Stippling Present 09/15/18 06:10 Anisocytosis 1+ 09/15/18 06:10 Sodium 139 mmol/L (136-145) 09/15/18 06:10 Potassium 3.3 mmol/L (3.5-5.1) L 09/15/18 06:10 Chloride 104 mmol/L (98-107) 09/15/18 06:10 Carbon Dioxide 25.7 mmol/L (21.0-32.0) 09/15/18 06:10 Anion Gap 9.3 mmol/L (3-11) 09/15/18 06:10 BUN 16 mg/dL (7-18) 09/15/18 06:10 Creatinine 0.88 mg/dL (0.55-1.02) 09/15/18 06:10 Estimated GFR/1.73 m2 >= 60.00 (mL/min/1.73m2) 09/15/18 06:10 Glucose 101 mg/dL (70-100) H 09/15/18 06:10 Calcium 8.7 mg/dL (8.5-10.1) 09/15/18 06:10 Magnesium 1.6 mg/dL (1.8-2.4) L 09/15/18 06:10 Total Bilirubin 0.4 mg/dL (0.2-1.0) 09/11/18 12:30 AST 23 U/L (15-37) 09/11/18 12:30 ALT 26 U/L (12-78) 09/11/18 12:30 Alkaline Phosphatase 83 U/L (46-116) 09/11/18 12:30 Troponin I < 0.02 ng/mL (0.00-0.06) 09/11/18 12:30 Total Protein 7.2 g/dL (6.4-8.2) 09/11/18 12:30 Albumin 2.7 g/dL (3.4-5.0) L 09/11/18 12:30 Urine Color Yellow (Yellow) 09/11/18 13:30 Urine Clarity Clear 09/11/18 13:30 Urine pH 7.0 (5-8) 09/11/18 13:30 Ur Specific [place] 1.010 (1.005-1.025) 09/11/18 13:30 Urine Protein Negative mg/dL (Negative) 09/11/18 13:30 Urine Ketones Negative mg/dL (Negative) 09/11/18 13:30 Urine Blood Negative (Negative) 09/11/18 13:30 Urine Nitrite Negative (Negative) 09/11/18 13:30 Urine Bilirubin Negative (Negative) 09/11/18 13:30 Urine Urobilinogen 0.2 EU/dL (Up TO 0.2) 09/11/18 13:30 Ur Leukocyte Esterase Small (Negative) H 09/11/18 13:30 Urine RBC Negative (0-2) 09/11/18 13:30 Urine WBC 5-10 HPF (0-5) 09/11/18 13:30 Ur Epithelial Cells Many HPF (Negative) 09/11/18 13:30 Urine Crystals Negative HPF (Negative) 09/11/18 13:30 Urine Bacteria Few HPF (Negative) 09/11/18 13:30 Urine Casts Negative LPF (Negative) 09/11/18 13:30 Urine Mucus Negative (Negative) 09/11/18 13:30 Ur Culture Indicated? No/sq. contamination 09/11/18 13:30 Urine Glucose Negative mg/dL (Negative) 09/11/18 13:30
[2018-09-15] MEDS: Omnipaque 350 MG/ML 100 ML BTL IJ (15:57)
--- NOTE | 2018-09-15 15:58 | DI.CT_ITS ---
SYMPTOM/DIAGNOSIS: F/U ABNL CT, RT SUPRACLAVICULAR MASS, ACUTE ABD PAIN, LEUKOCYTOSIS, STEROIDS, H/O BOWEL PERFORATION NECK CT: Post contrast exam was performed. Comparison is made with thoracic spine CT dated 09/11/18. A contrast enhanced exam was performed. There is an enhancing mass in the right supraclavicular region measuring 2.9 by 3.1 cm. It is directly adjacent to or between the right subclavian vein and right subclavian artery. It is difficult to separate from the vascular structures. The findings could represent a vascular malformation or vascular neoplasm. There is no evidence of adenopathy. No other neck masses are seen. The parotid, thyroid and submandibular glands are unremarkable. There are degenerative changes in the spine. The airway appears intact. There is calcification at the aortic arch. Both common carotid arteries are quite tortuous at their origins. There is mild calcification at both common carotid bulbs but no significant stenosis. The visualized portions of the sinuses and mastoid air cells are unremarkable. IMPRESSION: 3.1 by 2.9 cm. enhancing mass in the right supraclavicular region directly between the subclavian vein and artery. The findings could represent a vascular malformation or vascular neoplasm. An ultrasound could be considered for further evaluation. ABDOMEN AND PELVIC CT: Comparison is made with abdomen and pelvic CT dated 08/12/[address] of the thoracic and lumbar spine dated 09/11/18. Images were performed from the lung bases through the ischial tuberosities after IV and without oral contrast. Anastomotic sutures are seen in the region of the sigmoid. There is now wall thickening and inflammation in the sigmoid colon. There is also a large quantity of stool now seen throughout the colon as well in the rectosigmoid. The sigmoid colon lies directly adjacent to the bladder. The patient is status post hysterectomy. No abscess is seen. There is mild wall thickening of the posterior aspect of the bladder. The urinary bladder is also markedly distended. There is mild bilateral hydronephrosis likely secondary to the marked bladder distension. A few small renal cysts are noted. There is no evidence of free air or free fluid. The lung bases are clear. The liver, gallbladder, spleen, pancreas and adrenals are unremarkable. The aorta shows calcification and is normal in diameter. The previously noted small amount of fluid near the umbilicus and surgical scar is no longer present. There has been a slight interval increase in the amount of compression of the previously noted mild T 12 compression fracture. IMPRESSION: Inflammation around the sigmoid without evidence of abscess. A large quantity of stool is seen.
--- NOTE | 2018-09-15 16:38 | DI.VRAD_ITS ---
EXAM: CT Abdomen and Pelvis With Contrast EXAM DATE/TIME: 09/15/2018 4:00 PM CLINICAL HISTORY: 78 years old, female; Pain and condition or disease; Other: Leukocytosis; Abdominal pain; Generalized; Patient HX: Acute abd pain. Leukocytosis. Steroids, HX bowel perf TECHNIQUE: Axial computed tomography images of the abdomen and pelvis with intravenous contrast. All CT scans at this facility use at least one of these dose optimization techniques: automated exposure control; mA and/or kV adjustment per patient size (includes targeted exams where dose is matched to clinical indication); or iterative reconstruction. Coronal and sagittal reformatted images were created and reviewed. CONTRAST: Contrast Material: 100 ml of OMNI 350; Contrast Route: IV COMPARISON: CT ABDOMEN PELVIS W 07/11/2018 2:26 PM FINDINGS: Lower thorax: No acute findings. ABDOMEN: Liver: Normal. No mass. Gallbladder and bile ducts: Normal. No calcified stones. No ductal dilation. Pancreas: Normal. No ductal dilation. Spleen: Normal. No splenomegaly. Adrenals: Normal. No mass. Kidneys and ureters: 1.5 cm cyst in the midpole of right kidney. Mild bilateral hydronephrosis and the proximal hydroureter. The distal bilateral ureters are not clearly visualized., However there are no obstructing calculi. Stomach and bowel: There is evidence of a prior surgery in the distal sigmoid colon. There are inflammatory changes around the distal sigmoid colon. The epicenter urinary bladder wall appears thickened. There is moderate colonic fecal load. Small bowel is unremarkable. Appendix: No evidence of appendicitis. PELVIS: Bladder: Bladder is distended. Reproductive: Unremarkable as visualized. ABDOMEN and PELVIS: Intraperitoneal space: Normal. No free air. No significant fluid collection. Bones/joints: Chronic fracture of the superior endplate of T12. Soft tissues: Surgical clips are seen in the rectus musculature or in the anterior abdominal wall. Vasculature: Atherosclerotic calcification of the abdominal aorta and bilateral iliac arteries. Lymph nodes: Normal. No enlarged lymph nodes. IMPRESSION: Evidence of prior surgery in the distal sigmoid colon with surrounding inflammatory changes which are new as compared to the prior CT. The adjacent urinary wall appears thickened. Etiology can be infectious/inflammatory. No fluid collections. Interval development of mild bilateral hydronephrosis and hydroureter with no obstructing calculi. Dictated and Authenticated by: Harry Hernandez MD. Ordering:JOCELYN Dixon MD
[2018-09-15 16:44] LABS: Bilirubin Negative (Negative); Blood Negative (Negative); Clarity Clear; Glucose Negative (Negative); Ketones Negative (Negative); Leukocyte Esterase Negative (Negative); Nitrite Negative (Negative); Urobilinogen 0.2 EU/dL (Up TO 0.2); pH 6.5 (5-8)
--- NOTE | 2018-09-15 16:50 | DI.VRAD_ITS ---
EXAM: CT Neck With Contrast EXAM DATE/TIME: 09/15/2018 4:00 PM CLINICAL HISTORY: 78 years old, female; Signs and symptoms; Mass, lump, or swelling in neck; Patient HX: RT supraclavicular mass TECHNIQUE: Axial computed tomography images of the neck with intravenous contrast. All CT scans at this facility use at least one of these dose optimization techniques: automated exposure control; mA and/or kV adjustment per patient size (includes targeted exams where dose is matched to clinical indication); or iterative reconstruction. Coronal and sagittal reformatted images were created and reviewed. CONTRAST: Contrast Material: 100 ml of omni 350; Contrast Route: iv COMPARISON: No relevant prior studies available. FINDINGS: Brain: There is a motion artifact degrading the images. Oropharynx: Normal. No significant tonsillar enlargement. Larynx: Normal. Normal epiglottis. Submandibular/Parotid glands: Normal. Glands are normal in size. Thyroid: Normal. No enlarged or calcified nodules. Lymph nodes: No enlarged lymph nodes. Lungs: Normal as visualized. Vasculature: calcification of the aortic arch. There is a 2.9 x 3.1 cm enhancing mass in the right supraclavicular region which appears to be connected to the brachiocephalic vein and right subclavian vein. The right common carotid and the right subclavian artery lies in close proximity to this mass. Bones/joints: Degenerative changes of the spine. Soft tissues: Normal. No significant soft tissue swelling. IMPRESSION: Enhancing mass in the right supraclavicular region which appears to be connected to the right subclavian vein and brachiocephalic vein. The right common carotid artery and subclavian artery lies in close proximity. Differential includes but not limited to avascular malformation, vascular neoplasm or a arteriovenous fistula. Ultrasound is recommended for further evaluation if lesion is connected through other vasculature. Dictated and Authenticated by: Harry Hernandez MD. Ordering:JOCELYN Dixon MD
[2018-09-15] MEDS: Enoxaparin 40 MG/0.4 ML SYR SC (18:48)
[2018-09-15] MEDS: MetroNIDAZOLE 500 MG/100 ML BAG 100 MG IVPB (18:48)
[2018-09-15] MEDS: CIPROFLOXACIN 400 MG/200 ML BAG 200 MG IVPB (20:23)
[2018-09-15] MEDS: Mirtazapine 15 MG TAB 7.5 MG PO (22:26)
[2018-09-15] MEDS: Patch Removal 1 EACH TP (22:26)
[2018-09-15] MEDS: Zolpidem 10 MG TAB PO (22:27)
[2018-09-16] VITALS (9 sets, daily range): BP systolic 117–150; BP diastolic 55–77; PULSE 64–84; RESP 16–20; TEMP 36.1–36.6; O2SAT 92–97
[2018-09-16] MEDS: Normal Saline 1,000 ML 125 ML IV ×2 (01:44→14:26)
--- NOTE | 2018-09-16 01:58 | NUR.NOTE ---
Nursing Note: 0145H Patient has a baseline periods of confusion. Patient called for help. Tisha Astudillo RN and Rosita Valenzuela RN came in and found patient on the floor. Vital signs was stable. No pain reported. Patient was assisted and brought back to bed. Alarms set ON. Will continue to monitor
[2018-09-16] MEDS: MetroNIDAZOLE 500 MG/100 ML BAG 100 MG IVPB ×3 (02:22→18:03)
[2018-09-16] MEDS: Acetaminophen 325 MG TAB 650 MG PO ×3 (02:23→20:54)
[2018-09-16] MEDS: Levothyroxine 125 MCG TAB PO (06:18)
[2018-09-16] MEDS: CIPROFLOXACIN 400 MG/200 ML BAG 200 MG IVPB ×2 (06:19→19:19)
[2018-09-16 07:36] LABS: Abs Immature Grans 0.05 k/cumm (0.0-0.09); HCT 28.9 % (36.0-46.0); HGB 8.7 g/dL (12.0-15.5); Mean Corp. HGB Concentration 30.1 g/dL (32.0-36.0); Mean Corpuscular Volume 86.3 fL (80-95); Mean Platelet Volume 10.9 fL (8.0-11.0); Platelet Count 296 x1000/uL (130-400); RBC 3.35 m/cumm (4.00-5.20); RBC Distribution Width 15.7 % (11.7-14.6); White Blood Cell Count 19.59 k/cumm (4.4-10.8)
[2018-09-16 07:45] LABS: Anion Gap 6.8 mmol/L (3-11); BUN 12 mg/dL (7-18); CO2 28.2 mmol/L (21.0-32.0); CREATININE 0.75 mg/dL (0.55-1.02); Calcium 8.2 mg/dL (8.5-10.1); Chloride 107 mmol/L (98-107); Glucose 109 mg/dL (70-100); Magnesium 2.1 mg/dL (1.8-2.4); Potassium 3.4 mmol/L (3.5-5.1); Sodium 142 mmol/L (136-145)
[2018-09-16 08:28] LABS: Absolute Lymphocyte Count 1.37 k/cumm (1.2-3.4); Absolute Neutrophil Count 16.85 k/cumm (1.2-6.7)
[2018-09-16 08:29] LABS: Absolute Monocyte Count 1.18 k/cumm (0.11-0.7)
[2018-09-16 08:30] LABS: Diff Comment Manual Differential; Hypochromasia 1+; Polychromasia Present
[2018-09-16] MEDS: Lidocaine 5% Patch 1 PATCH TP (08:52)
[2018-09-16] MEDS: Polyethylene Glycol 3350 17 GM PACKET PO (08:52)
[2018-09-16] MEDS: methylPREDNISolone 4 MG TAB 10 MG PO ×2 (08:53→20:54)
[2018-09-16] MEDS: Potassium Chloride 20 MEQ TABCR 40 MEQ PO ×3 (08:54→20:55)
[2018-09-16] MEDS: Aspirin E.C. 81 MG TABEC PO (08:54)
[2018-09-16] MEDS: Furosemide 20 MG TAB 40 MG PO (08:54)
[2018-09-16] MEDS: Folic Acid 1 MG TAB PO (08:54)
[2018-09-16] MEDS: Magnesium Chloride 64 MG TABCR PO ×2 (08:54→20:54)
[2018-09-16] MEDS: buPROPion-XL 150 MG TABCR 450 MG PO (08:54)
[2018-09-16] MEDS: Multivitamin TAB 1 TAB PO ×2 (08:54→20:55)
[2018-09-16] MEDS: Pantoprazole 40 MG VIAL IVP (08:55)
[2018-09-16] MEDS: Calcium 600mg/Vit D 200U TAB 1 TAB PO (09:24)
[2018-09-16] MEDS: Normal Saline Flush 10 ML SYR IVP ×2 (09:25→18:03)
--- NOTE | 2018-09-16 10:20 | PDOC.CMPRO ---
- If Service Date Differs Date of service: 09/16/18 Time of Service: 10:20 Care Management Progress Note S/O: Riddhi developed abdominal pain yesterday afternoon. She is now being treated with IV antibiotics, has a indwelling cath r/t incomplete bladder emptying. She is not ready for transition to SNF. Will continue to monitor labs, and treatment. Anticipate she will be ready for transfer to SNF next week. A: Riddhi is a 78 year old female admitted for compression fracture related to multiple falls at home. She also is being treated for adrenal crisis with IV steroids. P: Riddhi will be discharged to short-term rehab facility when she is medically ready per provider. She is currently receiving antibiotics, hydrocortisone IV. CM to continue to provide support to patient and family discharge planning and disposition. She will family to transport to facility.
--- NOTE | 2018-09-16 10:25 | W.SURGCON ---
Date of service: 09/16/18 Time of Service: 10:25 Assessment and Plan (1) Constipation by delayed colonic transit: Current visit: Yes Status: Acute started on miralax (2) Steroid dependent: Current visit: Yes Status: Acute b/c of changes on CT and recent high dose steriod use- w/ pain and changes on CT would keep her on abx. Even though it has been 2m since sx, she prob has signif delayed healing b/c of steriods/anemia/low protein/etc diet as chidi steriods per hosp. pt had BM today adn currently feels better/less abdom pain ADTA supportive care (3) S/P colon resection: Current visit: Yes Status: Acute see above (4) Anemia of chronic disease: Current visit: Yes Status: Acute will give dose of IV Iron better absorption IV than po. po is very constipating and pt having troubles already History of Present Illness Chief Complaint: LLQ abdom pain Narrative: from admission H & P: Chief Complaint: Compression Fracture Narrative: Mrs. Manuel, is a 78 y.o Female with PMH of adrenal insufficiency, PMR, she presents to [facility] emergency department today after a fall c/o back pain. Mrs. Manuel has a hx of PMR, Adrenal insufficiency, Bowel Perforation s/p colonoscopy which she was admitted to our service for in June. RIZWAN, Chronic Leukocytosis, hypokalemia, she takes 4 mg prednisone daily for PMR and she was on a tapering dose when she was discharged from our hospital 08/01/2018. She states that over the last couple weeks she has been feeling weaker and weaker. She was ambulating to the BR last thursday and fell on the toilet. At 4 am this morning, she was ambulating to the BR again and fell on the toilet, however today she tried taking her oxycodone and that gave her no relief so she decided to be seen. A CT of the spine showed 5% acute anterior compression fracture of T12. She also had a CT of the head which is questionable for calcified intracranial vessel disease per virtual radiology, we will monitor and f/u as necessary. She will need adequate pain control, she takes oxycodone 5 mg po every 6 hours, which will be continued with morphine 2 mg every 4 hours for break through pain. Lidoderm patch was ordered and a binder for assistance. PT/OT will work with her. Given the increase in weakness this could be from adrenal insufficiency. She was started on a stress dose of hydrocortisone 50 mg IVP every 8 hours. She states her lead process engineer is trying to wean her off prednisone for a steroid shot, unknown what type. She has chronic leukocytosis in the setting of steroid use. We will continue to monitor, unlikely it is infectious as she is afebrile, not tachycardic, or tachypenic with no sx of infection. She does present with hypokalemia and hypomagnesium, she was started on 40 meq po potassium with 4 10meq runs of potassium and her level will be monitored. She was started on slow-mag for a 1.7 mag level and will be monitored. -I was asked to see pt b/c of LLQ pain and changes seen on CT report. I did review her old chart and her CT scans. pt is feeling better today after BM and wants to eat. She has been tolerating cl liq w/ no N/v. Her insicion is well healed. She did have a sigmoid resection- she had severe diverticular Dx. She has some problem sw/ anemia and a GI bleed postOp. She still remains anemic. This may also be do to chronic dx and steriods use. hgb today is 8.7 albumin is 2.7 she is a former smoker. adn on chronic steriods Consults Consult date: 09/15/18 Requesting physician: Graeme Rosario Review of Systems Constitutional Reports as per HPI, Reports fatigue, Denies fever(s), Reports frequent falls and Denies weight loss Cardiovascular Reports system reviewed and no additional complaints, except as docu, Denies chest pain and Denies dyspnea Respiratory Denies cough, Denies pain on inspiration, Denies dyspnea, Denies stridor and Denies wheezing Comments: pt is being treated for TB. CXR is neg Gastrointestinal Comments: LLQ pain. s/p sigmoid resection 06/28. had severe diverticular disease. was admitted on 07/08 w/ lower GI bleed. at time of consult was having LLQ pain. Changes noted on CT- post Op and also very constipated. Todady she has moved her bowels and feels better Genitourinary Comments: urinary retention Musculoskeletal Comments: back pain Neurologic Reports frequent falls Endocrine Reports fatigue Allergic/Immunologic Denies wheezing FOR[facility]LY [facility], [facility] Medical History Leukocytosis (Chronic) Hypokalemia (Acute) Primary osteoarthritis of left knee (Acute 07/30/15) PMR (polymyalgia rheumatica) (Chronic 01/15/16) Osteoporosis (Acute) Osteopenia (Acute 07/30/16) Obstructive sleep apnea syndrome (Acute) Memory impairment (Chronic 06/18/94) Increased body mass index (Acute) Hypothyroidism (Acute 04/05/12) Excessive sweating (Acute 06/02/16) Depressive disorder (Chronic) Insomnia (Acute) Tuberculosis (Chronic) Surgical History H/O dilation and curettage (Acute) S/P tonsillectomy (Acute) Abdominal hysterectomy (~1975) Appendectomy Bilateral salpingectomy with oophorectomy (~1975) Colonoscopy - MAC EGD - MAC (~2003) Laparoscopic, Ovarian Cystectomy Rotator Cuff Repair Family History Mother Heart disease Pneumonia Father Stroke Personal history of malignant neoplasm Heart disease Brother Alcohol abuse Cirrhosis with alcoholism Grandfather Essential hypertension Heart disease Grandmother Personal history of malignant neoplasm Stroke Grandmother Personal history of malignant neoplasm Son Alcohol abuse Social History household members: other details: 2 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 Exam Const General: cooperative, comfortable and no acute distress Nutritional Appearance: well nourished Orientation: alert, awake and oriented x3 HENMT Head: normal to inspection, normocephalic and atraumatic Ears: hearing grossly normal bilaterally Face and sinus: normal facial exam Mouth: oral mucosae normal and moist mucous membranes Teeth and gingiva: dentition normal Chest Chest: normal inspection of the chest Resp Effort & Inspection: normal respiratory effort Auscultation: rales, rhonchi and wheezes Cardio Jugular venous pressure: no JVD Palpation: normal PMI Rate: regular rate GI Inspection: non-distended and incision Palpation: soft, no hernias and No ascites Auscultation: normal bowel sounds Other: soft and no pain today. no n/v. + lg bm and no blood. is chidi cl liq and would like to eat. Results Last Vital Signs Temp 36.6 C 09/16/18 07:51 Pulse 72 09/16/18 07:51 Resp 20 09/16/18 07:51 BP 150/66 H 09/16/18 07:51 Pulse Ox 94 L 09/16/18 07:51 Labs : 09/16/18 06:20 09/16/18 06:20 Laboratory Results - last 24 hr 09/15/18 09/16/18 09/16/18 16:07 06:20 06:20 WBC 19.59 H RBC 3.35 L Hgb 8.7 L Hct 28.9 L MCV 86.3 MCH 26.0 L MCHC 30.1 L RDW 15.7 H Plt Count 296 MPV 10.9 Immature Gran % See Differential Neutrophils % 85.0 Band Neutrophils % 1.0 Lymphocytes % 7.0 Monocytes % 6.0 Eosinophils % 0.0 Basophils % 0.0 Metamyelocytes % 1.0 Absolute Neutrophils 16.85 H Absolute Lymphocytes 1.37 Absolute Monocytes 1.18 H Absolute Eosinophils 0.00 Absolute Basophils 0.00 Differential Comment Manual differential RBC Morphology See below Polychromasia Present Hypochromasia 1+ Sodium 142 Potassium 3.4 L Chloride 107 Carbon Dioxide 28.2 Anion Gap 6.8 BUN 12 Creatinine 0.75 Estimated GFR/1.73 m2 >= 60.00 Glucose 109 H Calcium 8.2 L Magnesium 2.1 Urine Color Yellow Urine Clarity Clear Urine pH 6.5 Ur Specific [place] 1.010 Urine Protein Negative Urine Ketones Negative Urine Blood Negative Urine Nitrite Negative Urine Bilirubin Negative Urine Urobilinogen 0.2 Ur Leukocyte Esterase Negative Urine Glucose Negative Imaging Abdomen CT scan report/results: report reviewed and image reviewed
--- NOTE | 2018-09-16 10:30 | PT.INTREAT ---
Date of service: 09/16/18 Time of Service: 10:30 PT Notes 09/16/18 SUBJECTIVE: Pat stating she is not doing good. She says everyone is against her and she is not sure what is going on. She says she thinks her is even in on the plan. She complains of abdominal discomfort. Her back discomfort is not bad this morning. She states she is about to walk out of this place. OBJECTIVE: Pt seated on the commode. Agreeable to PT. TRANSFERS Sit to stand: CGA Stand to sit: CGA Sit to supine: SBA(log roll) GAIT Device: 4WW Weight bearing: Full Assist: CGA Distance: 120' Deviation: Wheel chair follow for safety ASSESSMENT: Pt remains confused and agitated this morning. She ambulates well with her walker today without shuffling gait pattern and no LOB. PLAN: Continue per tolerance and POC. Session #1: 9:55-10:10([id number]) Ana Rosa Fleming, CANINE SERVICE TEACHER
--- NOTE | 2018-09-16 10:36 | PTTR_ITS ---
Date of service: 09/16/18 Time of Service: 10:30 PT Notes 09/16/18 SUBJECTIVE: Pat stating she is not doing good. She says everyone is against her and she is not sure what is going on. She says she thinks her is even in on the plan. She complains of abdominal discomfort. Her back discomfort is not bad this morning. She states she is about to walk out of this place. OBJECTIVE: Pt seated on the commode. Agreeable to PT. TRANSFERS Sit to stand: CGA Stand to sit: CGA Sit to supine: SBA(log roll) GAIT Device: 4WW Weight bearing: Full Assist: CGA Distance: 120' Deviation: Wheel chair follow for safety ASSESSMENT: Pt remains confused and agitated this morning. She ambulates well with her walker today without shuffling gait pattern and no LOB. PLAN: Continue per tolerance and POC. Session #1: 9:55-10:10([id number]) Ana Rosa Fleming, PLANT MAINTENANCE SUPERVISOR
--- NOTE | 2018-09-16 11:11 | DI.RAD_ITS ---
SYMPTOMS/DIAGNOSIS: LEUKOCYTOSIS PA AND LATERAL CHEST: Comparison is made with [id number] chest CT. The heart is mildly enlarged and the aorta calcified and mildly tortuous. No infiltrate or effusion is seen. A T 12 compression fracture is again noted. IMPRESSION: No change in T 12 compression fracture. No acute abnormality in the chest.
--- NOTE | 2018-09-16 11:17 | DI.US_ITS ---
SYMPTOMS/DIAGNOSIS: MASS IN RT CAROTID/SUBCLAVIAN REGION SOFT TISSUE ULTRASOUND OF THE NECK: Comparison is made with CT of the neck performed the previous day. The questioned mass in the supraclavicular region corresponds to a focal area of venous dilatation at the junction of the brachiocephalic and right subclavian veins. There does not appear to a fistula within an artery. Valves are seen within the area of dilatation. No thrombus is identified. There is no evidence of a soft tissue mass. IMPRESSION: Abnormality seen in the supraclavicular region by CT corresponds to a venous outpouching at the junction of the brachiocephalic and subclavian veins.
--- NOTE | 2018-09-16 12:53 | W.PM.PROGNOT ---
Date of Service Date of service: 09/16/18 Time of Service: 13:02 Assessment and Plan (1) Abdominal pain: Current visit: No Status: Acute With onset of Acute severe abdominal pain yesterday with an increased white blood cell count, in the setting of being on steroids and a recent history of perforated bowel after colonoscopy. CT abdomen showed inflammation surrounding site of previous surgery. General surgery recommended antibiotics. She was initiated on IV Cipro and Flagyl. Her WBC is stable today. Her abdominal pain has improved. CT also noted thickened urinary bladder wall and bilateral hydronephrosis. Fajardo catheter placed. Continue IV Antibiotics. She has been on a clear liquid diet, will discuss advancing diet with surgery. (2) Urinary retention with incomplete bladder emptying: Current visit: Yes Status: Acute CT abdomen showed bladder wall thickening with mild bilateral hydronephrosis. A fajardo catheter was placed for decompression of her bladder. Her abdominal pain resolved. Unfortunately, there was a problem with a leak in the catheter tubing and it was discontinued. The patient refused replacement. Will bladder scan for postvoid residual and have a low threshold to replace fajardo catheter for PVRs 300 or greater. Repeat UA pending. (3) Hallucination: Current visit: Yes Status: Acute Resolved. Possibly related to abdominal process. Repeat UA as above. (4) Supraclavicular mass: Current visit: Yes Status: Acute Noted on C-spine CT. Question of a right retroclavicular mass versus confluence of vessels. She had a CT Neck which showed a 3.1 by 2.9 cm. enhancing mass in the right supraclavicular region directly between the subclavian vein and artery, possibly representing a vascular malformation or vascular neoplasm. Follow up ultrasound did not show soft tissue mass, the area corresponds to a venous outpouching at the junction of the brachiocephalic and subclavian veins. (5) Compression fracture of body of thoracic vertebra: Current visit: No Status: Acute Compression fracture at T12 noted on CT s/p fall. Her back pain is improving. She is not currently requiring narcotics for pain management. Continue lidoderm patch. Continue PT. Will likely need rehab prior to returning home. Received prolia yesterday per Dr. Bullock, Rheumatology at [facility] [place]. Discontinue oxycodone. Tramadol for pain PRN. (6) Weakness: Current visit: No Status: Acute Related to adrenal insufficiency. Transitioned to oral medrol 10 mg daily and experienced increased weakness with gentle fall last night and the night prior. Her Medrol dose was increased to 10 mg BID, continue to monitor. She received additional steroids yesterday for premedication in preparation for CT neck and abdomen. She does not feel as weak today. Consider tapering steroids tomorrow. Her Inspector Printed Circuit Boards recommends discharge on Medrol 8-10 mg daily. (7) Adrenal insufficiency: Current visit: No Status: Acute Steroids as above. She takes prednisone 4 mg PO daily for PMR chronically. She may require higher baseline dose. She will follow up with Dr. Bullock soon after discharge. (8) PMR (polymyalgia rheumatica): Current visit: No Status: Chronic Mrs. Manuel's case was discussed with her Inspector [employer]ed [employer] Boards as above. (9) Leukocytosis (leucocytosis): Current visit: No Status: Chronic Remains elevated, stable. She remains afebrile. CT abdomen as above. Repeat CBC with differential in the morning. (10) Anemia: Current visit: No Status: Acute Her Hemoglobin is down today. She appears to have chronic, iron deficient anemia. Continue iron supplementation. Hemocult positive stool noted today. Decrease IV fluids. Continue PPI for GI protection. Hold lovenox, reassess CBC in the morning. Qualifiers: Anemia type: iron deficiency Iron deficiency anemia type: other iron deficiency Vitamin B12 deficiency anemia type: Folate deficiency anemia type: Bone marrow failure anemia type: Hemolytic anemia type: Other causes of anemia: Chronic kidney disease stage: Qualified Code(s): D50.8 - Other iron deficiency anemias (11) DVT prophylaxis: Current visit: Yes Status: Acute subcutaneous lovenox held due to anemia and hemocult positive stools. Resume once anemia stable. (12) Discharge planning issues: Current visit: Yes Status: Acute She is a DNR/DNI. She will likely need rehab prior to returning home. This case was discussed with Dr. Rosario who is in agreement. Subjective Interval history since last seen: Mrs. Manuel, is a 78 y.o Female with PMH of adrenal insufficiency, PMR, she presents to [facility] emergency department today after a fall with reports of back pain. She was found to have an acute compression fracture at T12 on CT. A note was also made of a question of a right retroclavicular mass versus confluence of vessels. An MRI neck was ordered due to an IV contrast allergy, however, yesterday she began reporting severe abdominal pain with an increased white blood cell count, in the setting of being on steroids and a recent history of perforated bowel after colonoscopy. She went on to have a CT abdomen and neck with premedication per policy. She tolerated the IV contrast without any allergic symptoms. CT abdomen found new inflammation surrounding the site of her previous surgery. A surgery consult was placed, she was started on Cipro and Flagyl. Nursing reported that Mrs. Manuel was more confused this morning. She reported having hallucinations and thought she was, in a different hospital and being held hostage. She no longer feels confused. She has minimal abdominal pain, she has been moving her bowels. The low back pain that she was reporting yesterday has largely resolved. She has mild back pain r/t compression fracture with position changes, she has very mild back pain with ambulation. Her appetite is better today. She is on a clear liquid diet, she is tolerating the clear liquids, she would like her diet advanced. She denies weakness today. She denies shortness of breath, coughing, wheezing, chest pain/pressure, palpitations, nausea, vomiting, diarrhea, she does report lower extremity edema bilaterally. Exam Narrative Exam Narrative: General: pleasant and cooperative female, sitting at edge of bed, in no acute distress. She is A&O, with some memory loss. She answers questions appropriately. HEENT: Normocephalic, atraumatic, pupils equal and round, extraocular movements intact, Mucous membranes very dry. Neck: Supple, no JVD, no palpable subclavicular mass on right. Respiratory: respirations even and unlabored, lung sounds clear to auscultation throughout. Cardiac: Heart has regular rate and rhythm, no murmur appreciated. Abdomen: abdomen round, non-distended, with well healed scar from previous abdominal surgery midline through umbilicus. Minimal tenderness on palpation of low abdomen- just left of midline. Unable to palpate urinary bladder today. + bowel sounds x 4 quadrants. Extremities: +1 pitting edema to RLE, LLE with trace pitting edema. Pedal pulses palpable bilaterally. Back: tenderness on palpation of low-level T-spine, mild CVA tendernes on left. Objective Objective Clinical Data: Abnormal lab results 09/16/18 09/16/18 Range/Units 06:20 06:20 WBC 19.59 H (4.4-10.8) k/cumm RBC 3.35 L (4.00-5.20) m/cumm Hgb 8.7 L (12.0-15.5) g/dL Hct 28.9 L (36.0-46.0) % MCH 26.0 L (27.0-33.0) pg MCHC 30.1 L (32.0-36.0) g/dL RDW 15.7 H (11.7-14.6) % Absolute Neutrophils 16.85 H (1.2-6.7) k/cumm Absolute Monocytes 1.18 H (0.11-0.7) k/cumm Potassium 3.4 L (3.5-5.1) mmol/L Glucose 109 H (70-100) mg/dL Calcium 8.2 L (8.5-10.1) mg/dL Vital Signs Temperature 36.5 C 09/16/18 10:47 Temperature Source Tympanic 09/16/18 10:47 Pulse 70 09/16/18 10:47 Pulse Rhythm Regular 09/16/18 09:08 Pulse 83 09/11/18 15:40 Respiratory Rate 20 09/16/18 10:47 Respiratory Effort Non-Labored 09/16/18 09:08 Respiratory Depth Normal 09/16/18 09:08 Respiratory Pattern Normal 09/16/18 09:08 Blood Pressure 138/63 09/16/18 10:47 Blood Pressure Mean 79 09/11/18 15:01 Blood Pressure Position Supine 09/11/18 11:35 Pulse Oximetry 96 09/16/18 10:47 Oxygen Delivery Method Room Air 09/16/18 10:47 Oxygen Flow Rate 0 09/16/18 10:47 Pain Level 8 09/15/18 13:14 Comment 09/15/18 03:00 Intake & Output 09/15/18 09/16/18 09/16/18 23:59 11:59 23:59 Intake Total 1570 / 1710 1740 / 1740 Output Total 2800 / 3200 1325 / 1675 350 / 1675 Balance -1230 / -1490 415 / 65 -350 / 65 Intake: IV 1370 / 1410 1570 / 1570 Oral 200 / 300 170 / 170 Output: Urine 2800 / 3200 1325 / 1675 350 / 1675 Other: Urine Color Yellow Yellow Yellow Urine Appearance Cloudy Cloudy Clear Urine Odor Normal Comment nurse notified Stool Occult Blood Positive Stool Size Large Small Stool Characteristics Hard Soft Voiding Methods Toilet Laboratory Results WBC 19.59 k/cumm (4.4-10.8) H 09/16/18 06:20 RBC 3.35 m/cumm (4.00-5.20) L 09/16/18 06:20 Hgb 8.7 g/dL (12.0-15.5) L 09/16/18 06:20 Hct 28.9 % (36.0-46.0) L 09/16/18 06:20 MCV 86.3 fL (80-95) 09/16/18 06:20 MCH 26.0 pg (27.0-33.0) L 09/16/18 06:20 MCHC 30.1 g/dL (32.0-36.0) L 09/16/18 06:20 RDW 15.7 % (11.7-14.6) H 09/16/18 06:20 Plt Count 296 x1000/uL (130-400) 09/16/18 06:20 MPV 10.9 fL (8.0-11.0) 09/16/18 06:20 Immature Gran % See Differential 09/16/18 06:20 Neutrophils % 85.0 09/16/18 06:20 Band Neutrophils % 1.0 % 09/16/18 06:20 Lymphocytes % 7.0 09/16/18 06:20 Monocytes % 6.0 09/16/18 06:20 Eosinophils % 0.0 09/16/18 06:20 Basophils % 0.0 09/16/18 06:20 Metamyelocytes % 1.0 % 09/16/18 06:20 Absolute Neutrophils 16.85 k/cumm (1.2-6.7) H 09/16/18 06:20 Absolute Lymphocytes 1.37 k/cumm (1.2-3.4) 09/16/18 06:20 Absolute Monocytes 1.18 k/cumm (0.11-0.7) H 09/16/18 06:20 Absolute Eosinophils 0.00 k/cumm (0.0-0.7) 09/16/18 06:20 Absolute Basophils 0.00 k/cumm (0.0-0.2) 09/16/18 06:20 Differential Comment Manual differential 09/16/18 06:20 RBC Morphology See below 09/16/18 06:20 Polychromasia Present 09/16/18 06:20 Hypochromasia 1+ 09/16/18 06:20 Basophilic Stippling Present 09/15/18 06:10 Anisocytosis 1+ 09/15/18 06:10 Sodium 142 mmol/L (136-145) 09/16/18 06:20 Potassium 3.4 mmol/L (3.5-5.1) L 09/16/18 06:20 Chloride 107 mmol/L (98-107) 09/16/18 06:20 Carbon Dioxide 28.2 mmol/L (21.0-32.0) 09/16/18 06:20 Anion Gap 6.8 mmol/L (3-11) 09/16/18 06:20 BUN 12 mg/dL (7-18) 09/16/18 06:20 Creatinine 0.75 mg/dL (0.55-1.02) 09/16/18 06:20 Estimated GFR/1.73 m2 >= 60.00 (mL/min/1.73m2) 09/16/18 06:20 Glucose 109 mg/dL (70-100) H 09/16/18 06:20 Calcium 8.2 mg/dL (8.5-10.1) L 09/16/18 06:20 Magnesium 2.1 mg/dL (1.8-2.4) 09/16/18 06:20 Total Bilirubin 0.4 mg/dL (0.2-1.0) 09/11/18 12:30 AST 23 U/L (15-37) 09/11/18 12:30 ALT 26 U/L (12-78) 09/11/18 12:30 Alkaline Phosphatase 83 U/L (46-116) 09/11/18 12:30 Troponin I < 0.02 ng/mL (0.00-0.06) 09/11/18 12:30 Total Protein 7.2 g/dL (6.4-8.2) 09/11/18 12:30 Albumin 2.7 g/dL (3.4-5.0) L 09/11/18 12:30 Urine Color Yellow (Yellow) 09/15/18 16:07 Urine Clarity Clear 09/15/18 16:07 Urine pH 6.5 (5-8) 09/15/18 16:07 Ur Specific [place] 1.010 (1.005-1.025) 09/15/18 16:07 Urine Protein Negative mg/dL (Negative) 09/15/18 16:07 Urine Ketones Negative mg/dL (Negative) 09/15/18 16:07 Urine Blood Negative (Negative) 09/15/18 16:07 Urine Nitrite Negative (Negative) 09/15/18 16:07 Urine Bilirubin Negative (Negative) 09/15/18 16:07 Urine Urobilinogen 0.2 EU/dL (Up TO 0.2) 09/15/18 16:07 Ur Leukocyte Esterase Negative (Negative) 09/15/18 16:07 Urine RBC Negative (0-2) 09/11/18 13:30 Urine WBC 5-10 HPF (0-5) 09/11/18 13:30 Ur Epithelial Cells Many HPF (Negative) 09/11/18 13:30 Urine Crystals Negative HPF (Negative) 09/11/18 13:30 Urine Bacteria Few HPF (Negative) 09/11/18 13:30 Urine Casts Negative LPF (Negative) 09/11/18 13:30 Urine Mucus Negative (Negative) 09/11/18 13:30 Ur Culture Indicated? No/sq. contamination 09/11/18 13:30 Urine Glucose Negative mg/dL (Negative) 09/15/18 16:07
[2018-09-16 13:41] LABS: Bilirubin Negative (Negative); Blood Trace-intact (Negative); Clarity Clear; Glucose Negative (Negative); Ketones Negative (Negative); Leukocyte Esterase Negative (Negative); Nitrite Negative (Negative); Specific Gravity 1.015 (1.005-1.025); Urobilinogen 0.2 EU/dL (Up TO 0.2); pH 8.5 (5-8)
[2018-09-16 13:57] LABS: Bacteria Rare HPF (Negative); C & S Indicated? No; Casts Negative LPF (Negative); Crystals Negative HPF (Negative); Epithelial Cells Rare HPF (Negative); Mucus Negative (Negative); WBC 0-2 HPF (0-5)
--- NOTE | 2018-09-16 14:01 | PT.INTREAT ---
Date of service: 09/16/18 Time of Service: 14:01 PT Notes 09/16/18 SUBJECTIVE: Pat stating she feels much better this afternoon. She notes that she does not know why she was feeling like everyone was out to get her this morning. She states her pain seems to be under control with her stomach and her back. She does feel quite tired from the events of the morning. OBJECTIVE: Pt supine in bed. Agreeable to PT. TRANSFERS Supine to sit: SBA Sit to supine: SBA Sit to stand: CGA Stand to sit: CGA GAIT Device: 4WW Weight bearing: Full Assist: CGA Distance: 150' ASSESSMENT: Pt is much more clear this afternoon and having minimal discomfort overall. She has good gait sequence this afternoon without shuffling and no LOB. She declined strengthening due to fatigue. PLAN: Continue current POC progressing towards established goals. Session # 2: 1:30 to 1:40 ([id number]) Ana Rosa Fleming PTA
[2018-09-16] MEDS: Docusate Sodium 100 MG CAP PO (20:55)
[2018-09-16] MEDS: Mirtazapine 15 MG TAB 7.5 MG PO (22:25)
[2018-09-16] MEDS: Zolpidem 10 MG TAB PO (22:25)
[2018-09-16] MEDS: Patch Removal 1 EACH TP (22:29)
[2018-09-17] VITALS (7 sets, daily range): BP systolic 132–162; BP diastolic 68–83; PULSE 62–75; RESP 16–20; TEMP 36–36.9; O2SAT 96–98
[2018-09-17] MEDS: MetroNIDAZOLE 500 MG/100 ML BAG 100 MG IVPB ×3 (01:16→17:03)
[2018-09-17] MEDS: Levothyroxine 125 MCG TAB PO (05:13)
[2018-09-17] MEDS: CIPROFLOXACIN 400 MG/200 ML BAG 200 MG IVPB ×2 (05:13→18:38)
[2018-09-17 07:56] LABS: Abs Immature Grans 0.12 k/cumm (0.0-0.09); Absolute Basophil Count 0.01 k/cumm (0.0-0.2); Absolute Eosinophil Count 0.02 k/cumm (0.0-0.7); Absolute Monocyte Count 1.19 k/cumm (0.11-0.7); Basophils % 0.1; Eosinophils % 0.2; HCT 29.3 % (36.0-46.0); HGB 8.8 g/dL (12.0-15.5); Lymphocytes % 13.5; Mean Corpuscular Hemoglobin 26.4 pg (27.0-33.0); Mean Platelet Volume 10.4 fL (8.0-11.0); Monocytes % 9.8; Neutrophils % 75.4; Platelet Count 314 x1000/uL (130-400); RBC 3.33 m/cumm (4.00-5.20); RBC Distribution Width 16.1 % (11.7-14.6); White Blood Cell Count 12.18 k/cumm (4.4-10.8)
[2018-09-17 07:58] LABS: Anion Gap 6.7 mmol/L (3-11); BUN 12 mg/dL (7-18); CO2 25.3 mmol/L (21.0-32.0); CREATININE 0.72 mg/dL (0.55-1.02); Calcium 8.2 mg/dL (8.5-10.1); Chloride 111 mmol/L (98-107); Glucose 89 mg/dL (70-100); Magnesium 2.1 mg/dL (1.8-2.4); Potassium 4.4 mmol/L (3.5-5.1); Sodium 143 mmol/L (136-145)
[2018-09-17 08:06] LABS: Absolute Lymphocyte Count 1.64 k/cumm (1.2-3.4); Absolute Neutrophil Count 9.18 k/cumm (1.2-6.7)
[2018-09-17] MEDS: Furosemide 20 MG TAB 40 MG PO (09:21)
[2018-09-17] MEDS: Folic Acid 1 MG TAB PO (09:21)
[2018-09-17] MEDS: Docusate Sodium 100 MG CAP PO ×2 (09:21→20:16)
[2018-09-17] MEDS: Potassium Chloride 20 MEQ TABCR 40 MEQ PO ×2 (09:22→20:17)
[2018-09-17] MEDS: traMADol 50 MG TAB PO ×2 (09:22→20:16)
[2018-09-17] MEDS: Multivitamin TAB 1 TAB PO ×2 (09:23→20:16)
[2018-09-17] MEDS: Magnesium Chloride 64 MG TABCR PO ×2 (09:23→20:17)
[2018-09-17] MEDS: methylPREDNISolone 4 MG TAB 10 MG PO ×2 (09:23→20:15)
[2018-09-17] MEDS: buPROPion-XL 150 MG TABCR 450 MG PO (09:23)
[2018-09-17] MEDS: Lidocaine 5% Patch 1 PATCH TP (09:25)
[2018-09-17] MEDS: Pantoprazole 40 MG VIAL IVP (09:25)
[2018-09-17] MEDS: Calcium 600mg/Vit D 200U TAB 1 TAB PO (09:25)
[2018-09-17] MEDS: Normal Saline Flush 10 ML SYR IVP ×2 (09:25→15:43)
[2018-09-17] MEDS: Normal Saline 1,000 ML 75 ML IV (10:41)
--- NOTE | 2018-09-17 11:08 | PT.INTREAT ---
Date of service: 09/17/18 Time of Service: 11:08 PT Notes Inpatient Physical Therapy Treatment Note [facility] Date: 09/17/18 PRECAUTIONS: Fall SUBJECTIVE: Pat is agreeable to participating in PT. She reports that she is feeling well today and is excited about taking a shower. OBJECTIVE: PAIN: Patient c/o back pain with [id number] transfer BED MOBILITY/TRANSFERS Supine-sit: S Sit-supine: S Sit-stand: SBA Stand-sit: SBA GAIT Assistive Device: 4WW Weight bearing: Full Assist: S Distance: 150' Deviation: LOB x1 with min A for recovery THEREX: Patient completed a LE strengthening program in a standing position with SBA, as per flow sheet. She was also able to complete several standing balance exercises with dynamic UE movements, as per flow sheet. ASSESSMENT: Patient tolerated session with complaint of back pain with [id number] transfer. She was able to tolerate a progression in her ther ex program today, and tolerated the addition of several balance exercises. She would benefit from continued strengthening and balance retraining. PLAN: Continue with PT's POC TREATMENT CODE/TIME: Session 1: 25 minutes; [id number], [id number]
--- NOTE | 2018-09-17 11:12 | PDOC.CMPRO ---
- If Service Date Differs Date of service: 09/17/18 Time of Service: 11:12 Care Management Progress Note S/O: CM met with patient at the bedside, she is getting ready for her PT. [facility] which she accepts. Riddhi continues to receive IV antibiotics. She appears to be doing well today, and is ambulating in the halls with her walker and PT. CM contacted [facility] and left voicemail for admissions related to bed acceptance. CM reviewed care with provider anticipate patient will be ready for discharge on Thursday. A: Riddhi is a 78 year old female admitted for compression fracture related to multiple falls at home. She also is being treated for adrenal crisis with IV steroids. P: Riddhi will be discharged to short-term rehab facility when she is medically ready per provider. She is currently receiving antibiotics, hydrocortisone IV. CM to continue to provide support to patient and family discharge planning and disposition. Riddhi will be transported to facility.
[2018-09-17] MEDS: Acetaminophen 325 MG TAB 650 MG PO ×2 (13:44→20:16)
--- NOTE | 2018-09-17 14:06 | PGE_ITS ---
Date of Service Date of service: 09/17/18 Time of Service: 13:48 Assessment and Plan (1) Compression fracture of body of thoracic vertebra: Current visit: No Status: Acute reports poor pain control today but is still working with physical therapy. has been refusing last several doses of tylenol preceding her worsening pain. also has been using morphine instead of tramadol first for pain. I question if this, in addition to pain and hospitalization is contributing to her delirium. discussed continuing scheduled tylenol, adding scheduled tramadol twice daily and increase if needed, and adding IV toradol prn, max use 5 days. if tolerates can consider ibuprofen for a short course. (2) Urinary retention with incomplete bladder emptying: Current visit: Yes Status: Acute ongoing urinary retention, worsening with PVR 180, 250 and now 490. will straight cath for PVR greater than 300. UA yesterday negative for infection. (3) Delirium: Current visit: Yes Status: Acute likely multifactorial with acute hospitalization in elderly, medication, and acute pain as contributing factors. improved today, will continue safety precautions, limit or eliminate narcotics/sedatives, continue to monitor. (4) S/P colon resection: Current visit: Yes Status: Acute with evidence of inflammation at surgical site by CT scan. surgical services following. started yesterday on cipro/flagyl day 2 of 5 or 7, will defer length of course to surgery. was having abdominal pain yesterday which resolved with bowel management. (5) Constipation by delayed colonic transit: Current visit: Yes Status: Acute resolved with miralax, continue to closely monitor bowels (6) Steroid dependent: Current visit: Yes Status: Acute will continue with currently dosing with taper as recommended her Medical Parasitologist who recommends discharge on Medrol 8-10 mg daily. (7) DVT prophylaxis: Current visit: Yes Status: Acute (8) Discharge planning issues: Current visit: Yes Status: Acute (9) Anemia of chronic disease: Current visit: Yes Status: Acute H&H stable, no evidence of active bleeding. Continue iron supplementation. Continue PPI for GI protection. follow CBC. Subjective Interval history since last seen: Mrs. Manuel, is a 78 y.o Female with PMH of adrenal insufficiency, PMR who presented to [facility] emergency department after a fall with reports of back pain. She was found to have an acute compression fracture at T12 on CT. A note was also made of a question of a right retroclavicular mass versus confluence of vessels. An MRI neck was ordered due to an IV contrast allergy, however, yesterday she began reporting severe abdominal pain with an increased white blood cell count, in the setting of being on steroids and a recent history of perforated bowel after colonoscopy. She went on to have a CT abdomen and neck with premedication per policy. She tolerated the IV contrast without any allergic symptoms. CT abdomen found new inflammation surrounding the site of her previous surgery. A surgery consult was placed, she was started on Cipro and Flagyl. an ultrasound of soft tissue of neck/subclavian region was obtained d/t mass seen on CT in that region. Abnormality seen in the supraclavicular region by CT corresponds to a venous outpouching at the junction of the brachiocephalic and subclavian veins. Overnight her abdominal pain resolved, but she now reports worsened back pain. she has been refusing tylenol doses stating it doesn't help. She has been getting out of bed and working with physical therapy. She states since receiving miralax she is having loose stools and that her abdominal pain is resolved. She is tolerating her advanced diet. no fevers. Her white count has improved from 19 to 12. She was noted to have some confusion overnight, I question if this is related to morphine. today she is not confused. Exam Const General: cooperative, comfortable and no acute distress Nutritional Appearance: obese Orientation: alert, awake and oriented x3 [facility] Head: normal to inspection, normocephalic and atraumatic Mouth: oral mucosa abnormal (slightly dry) Chest Chest: normal inspection of the chest Resp Effort & Inspection: normal respiratory effort and able to speak in complete sentences Auscultation: clear to auscultation bilaterally Cardio Rate: regular rate Rhythm: regular rhythm GI Inspection: large pannus and scar (midline scar will healed. ) Palpation: soft Auscultation: normal bowel sounds Other: PVR have been under 300, last one 490 Skin Other: small areas of ecchymosis from injection sites on abdominal wall Neuro General: alert, awake and oriented x3 Cognition: normal cognition Speech: speech normal Extrem General: edema Objective Objective Clinical Data: Abnormal lab results 09/16/18 09/17/18 09/17/18 Range/Units 13:05 07:30 07:30 WBC 12.18 H D (4.4-10.8) k/cumm RBC 3.33 L (4.00-5.20) m/cumm Hgb 8.8 L (12.0-15.5) g/dL Hct 29.3 L (36.0-46.0) % MCH 26.4 L (27.0-33.0) pg MCHC 30.0 L (32.0-36.0) g/dL RDW 16.1 H (11.7-14.6) % Absolute Neutrophils 9.18 H (1.2-6.7) k/cumm Absolute Monocytes 1.19 H (0.11-0.7) k/cumm Chloride 111 H (98-107) mmol/L Calcium 8.2 L (8.5-10.1) mg/dL Urine RBC 5-10 H (0-2) Vital Signs Temperature 36 C L 09/17/18 11:37 Temperature Source Tympanic 09/17/18 11:37 Pulse 75 09/17/18 11:37 Pulse Rhythm Regular 09/17/18 08:10 Pulse 83 09/11/18 15:40 Respiratory Rate 18 09/17/18 11:37 Respiratory Effort Non-Labored 09/17/18 08:10 Respiratory Depth Normal 09/17/18 08:10 Respiratory Pattern Normal 09/17/18 08:10 Blood Pressure 147/83 H 09/17/18 11:37 Blood Pressure Mean 79 09/11/18 15:01 Blood Pressure Position Supine 09/11/18 11:35 Pulse Oximetry 96 09/17/18 11:37 Oxygen Delivery Method Room Air 09/17/18 11:37 Oxygen Flow Rate 0 09/17/18 11:37 Pain Level 10 09/17/18 11:37 Comment 09/15/18 03:00 Intake & Output 09/16/18 09/17/18 09/17/18 23:59 11:59 23:59 Intake Total 750 / 2590 1810 / 1810 Output Total 1400 / 2725 2200 / 2200 Balance -650 / -135 -390 / -390 Intake: IV 510 / 2180 1330 / 1330 Oral 240 / 410 480 / 480 Output: Urine 1400 / 2725 0 / 2199 Other: Urine Color Yellow Yellow Urine Appearance Clear Clear Urine Odor None Comment Johnson D/C'ed. Void x 1 in toilet Stool Size Moderate Stool Characteristics Soft Brown Voiding Methods Bedside Commode Toilet Laboratory Results WBC 12.18 k/cumm (4.4-10.8) H D 09/17/18 07:30 RBC 3.33 m/cumm (4.00-5.20) L 09/17/18 07:30 Hgb 8.8 g/dL (12.0-15.5) L 09/17/18 07:30 Hct 29.3 % (36.0-46.0) L 09/17/18 07:30 MCV 88.0 fL (80-95) 09/17/18 07:30 MCH 26.4 pg (27.0-33.0) L 09/17/18 07:30 MCHC 30.0 g/dL (32.0-36.0) L 09/17/18 07:30 RDW 16.1 % (11.7-14.6) H 09/17/18 07:30 Plt Count 314 x1000/uL (130-400) 09/17/18 07:30 MPV 10.4 fL (8.0-11.0) 09/17/18 07:30 Immature Gran % 1.0 09/17/18 07:30 Neutrophils % 75.4 09/17/18 07:30 Band Neutrophils % 1.0 % 09/16/18 06:20 Lymphocytes % 13.5 09/17/18 07:30 Monocytes % 9.8 09/17/18 07:30 Eosinophils % 0.2 09/17/18 07:30 Basophils % 0.1 09/17/18 07:30 Metamyelocytes % 1.0 % 09/16/18 06:20 Absolute Neutrophils 9.18 k/cumm (1.2-6.7) H 09/17/18 07:30 Absolute Lymphocytes 1.64 k/cumm (1.2-3.4) 09/17/18 07:30 Absolute Monocytes 1.19 k/cumm (0.11-0.7) H 09/17/18 07:30 Absolute Eosinophils 0.02 k/cumm (0.0-0.7) 09/17/18 07:30 Absolute Basophils 0.01 k/cumm (0.0-0.2) 09/17/18 07:30 Differential Comment Manual differential 09/16/18 06:20 RBC Morphology See below 09/16/18 06:20 Polychromasia Present 09/16/18 06:20 Hypochromasia 1+ 09/16/18 06:20 Basophilic Stippling Present 09/15/18 06:10 Anisocytosis 1+ 09/15/18 06:10 Sodium 143 mmol/L (136-145) 09/17/18 07:30 Potassium 4.4 mmol/L (3.5-5.1) D 09/17/18 07:30 Chloride 111 mmol/L (98-107) H 09/17/18 07:30 Carbon Dioxide 25.3 mmol/L (21.0-32.0) 09/17/18 07:30 Anion Gap 6.7 mmol/L (3-11) 09/17/18 07:30 BUN 12 mg/dL (7-18) 09/17/18 07:30 Creatinine 0.72 mg/dL (0.55-1.02) 09/17/18 07:30 Estimated GFR/1.73 m2 >= 60.00 (mL/min/1.73m2) 09/17/18 07:30 Glucose 89 mg/dL (70-100) 09/17/18 07:30 Calcium 8.2 mg/dL (8.5-10.1) L 09/17/18 07:30 Magnesium 2.1 mg/dL (1.8-2.4) 09/17/18 07:30 Total Bilirubin 0.4 mg/dL (0.2-1.0) 09/11/18 12:30 AST 23 U/L (15-37) 09/11/18 12:30 ALT 26 U/L (12-78) 09/11/18 12:30 Alkaline Phosphatase 83 U/L (46-116) 09/11/18 12:30 Troponin I < 0.02 ng/mL (0.00-0.06) 09/11/18 12:30 Total Protein 7.2 g/dL (6.4-8.2) 09/11/18 12:30 Albumin 2.7 g/dL (3.4-5.0) L 09/11/18 12:30 Urine Color Yellow (Yellow) 09/16/18 13:05 Urine Clarity Clear 09/16/18 13:05 Urine pH 8.5 (5-8) H 09/16/18 13:05 Ur Specific [place] 1.015 (1.005-1.025) 09/16/18 13:05 Urine Protein Negative mg/dL (Negative) 09/16/18 13:05 Urine Ketones Negative mg/dL (Negative) 09/16/18 13:05 Urine Blood Trace-intact (Negative) H 09/16/18 13:05 Urine Nitrite Negative (Negative) 09/16/18 13:05 Urine Bilirubin Negative (Negative) 09/16/18 13:05 Urine Urobilinogen 0.2 EU/dL (Up TO 0.2) 09/16/18 13:05 Ur Leukocyte Esterase Negative (Negative) 09/16/18 13:05 Urine RBC 5-10 (0-2) H 09/16/18 13:05 Urine WBC 0-2 HPF (0-5) 09/16/18 13:05 Ur Epithelial Cells Rare HPF (Negative) 09/16/18 13:05 Urine Crystals Negative HPF (Negative) 09/16/18 13:05 Urine Bacteria Rare HPF (Negative) 09/16/18 13:05 Urine Casts Negative LPF (Negative) 09/16/18 13:05 Urine Mucus Negative (Negative) 09/16/18 13:05 Ur Culture Indicated? No 09/16/18 13:05 Urine Glucose Negative mg/dL (Negative) 09/16/18 13:05
[2018-09-17] MEDS: Ketorolac 15 MG/ML VIAL IVP (15:43)
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
[2018-09-17] MEDS: Mirtazapine 15 MG TAB 7.5 MG PO (21:26)
[2018-09-17] MEDS: Patch Removal 1 EACH TP (21:38)
[2018-09-17] MEDS: Melatonin 3 MG TAB 6 MG PO (21:43)
[2018-09-18] MEDS: MetroNIDAZOLE 500 MG/100 ML BAG 100 MG IVPB ×2 (02:20→10:24)
[2018-09-18] MEDS: Acetaminophen 325 MG TAB 650 MG PO ×4 (02:20→21:00)
[2018-09-18 04:18] VITALS: BP 154/72; PULSE 64; RESP 16; TEMP 36.7; O2SAT 96
[2018-09-18] MEDS: Levothyroxine 125 MCG TAB PO (05:56)
[2018-09-18] MEDS: CIPROFLOXACIN 400 MG/200 ML BAG 200 MG IVPB (05:57)
[2018-09-18] MEDS: Normal Saline Flush 10 ML SYR IVP ×3 (05:57→20:59)
[2018-09-18 07:40] VITALS: BP 148/70; PULSE 64; RESP 18; TEMP 36.2; O2SAT 97
[2018-09-18] MEDS: methylPREDNISolone 4 MG TAB 10 MG PO ×2 (08:26→20:59)
[2018-09-18] MEDS: Furosemide 20 MG TAB 40 MG PO (08:27)
[2018-09-18] MEDS: Calcium 600mg/Vit D 200U TAB 1 TAB PO (08:27)
[2018-09-18] MEDS: Magnesium Chloride 64 MG TABCR PO ×2 (08:27→20:59)
[2018-09-18] MEDS: buPROPion-XL 150 MG TABCR 450 MG PO (08:27)
[2018-09-18] MEDS: Potassium Chloride 20 MEQ TABCR 40 MEQ PO ×2 (08:28→21:00)
[2018-09-18] MEDS: Multivitamin TAB 1 TAB PO ×2 (08:28→20:59)
[2018-09-18] MEDS: Docusate Sodium 100 MG CAP PO (08:36)
[2018-09-18] MEDS: Folic Acid 1 MG TAB PO (08:36)
[2018-09-18] MEDS: Lidocaine 5% Patch 1 PATCH TP (08:36)
[2018-09-18] MEDS: traMADol 50 MG TAB PO ×2 (08:36→20:59)
[2018-09-18] MEDS: Pantoprazole 40 MG VIAL IVP (08:37)
--- NOTE | 2018-09-18 10:06 | PT.INNT ---
Date of service: 09/18/18 Time of Service: 10:00 PT Notes 09/18/18 pt refused PT this am. I was unable to get her to participate even with bed exercises. I didn't sleep well last night. She indicated that her back was feeling better. Will check in with her tomorrow am.
--- NOTE | 2018-09-18 11:48 | PGE_ITS ---
Date of Service Date of service: 09/18/18 Time of Service: 11:42 Assessment and Plan (1) Anemia of chronic disease: Current visit: Yes Status: Acute check iron studies to see if low prob will require IV iron for depetion (2) S/P colon resection: Current visit: Yes Status: Acute (3) Steroid dependent: Current visit: Yes Status: Acute per hosp (4) Constipation by delayed colonic transit: Current visit: Yes Status: Acute resolved (5) Diarrhea: Current visit: Yes Status: Acute pt had colon surgery in jun. also has been on chronic steroids. Had some changes on CT and abdominal pain when admitted. Was started on abx as concern for chronic infection vs non healing. the abdominal pain has resolved. pt now has developed diarrhea. -stop abx -check for C. diff -will follow peripherally Subjective Interval history since last seen: pt is not the greatest historian. Has periods of confusion worse in pm. has fallen several times. no abdominal pain. tolerating po's now has diarrhea Exam Const Orientation: oriented to person Resp Effort & Inspection: normal respiratory effort Auscultation: no rales, no rhonchi and no wheezes GI Inspection: normal to inspection Palpation: soft Other: no pain. incisions is well healed. no hernias Skin Other: intact. no breakdown or hot spots Objective Objective Clinical Data: Vital Signs Temperature 36.2 C L 09/18/18 07:40 Temperature Source Tympanic 09/18/18 07:40 Pulse 64 09/18/18 07:40 Pulse Rhythm Regular 09/18/18 07:30 Pulse 83 09/11/18 15:40 Respiratory Rate 18 09/18/18 07:40 Respiratory Effort Non-Labored 09/18/18 07:30 Respiratory Depth Normal 09/18/18 07:30 Respiratory Pattern Normal 09/18/18 07:30 Blood Pressure 148/70 H 09/18/18 07:40 Blood Pressure Mean 79 09/11/18 15:01 Blood Pressure Position Supine 09/11/18 11:35 Pulse Oximetry 97 09/18/18 07:40 Oxygen Delivery Method Room Air 09/18/18 07:40 Oxygen Flow Rate 0 09/18/18 07:40 Pain Level 0 09/18/18 08:36 Comment 09/15/18 03:00 Intake & Output 09/17/18 09/17/18 09/18/18 11:59 23:59 11:59 Intake Total 1910 / 2752.5 842.5 / 2752.5 1440 / 1440 Output Total 2200 / 6800 3900 / 6800 2750 / 2750 Balance -290 / -4047.5 -3057.5 / -4047.5 -1310 / -1310 Intake: IV 1430 / 2032.5 602.5 / 2032.5 140 / 140 Oral 480 / 720 240 / 720 1300 / 1300 Output: Urine 2200 / 6800 3900 / 6800 2200 / 2200 Post Void Residual 550 / 550 Other: Urine Color Yellow Yellow Yellow Urine Appearance Clear Clear Clear Urine Odor None None Comment Void x 1 in toilet Pt voided 700 before bladder scan Stool Size Moderate Stool Characteristics Soft Liquid Brown Voiding Methods Toilet Toilet Toilet Laboratory Results WBC 12.18 k/cumm (4.4-10.8) H D 09/17/18 07:30 RBC 3.33 m/cumm (4.00-5.20) L 09/17/18 07:30 Hgb 8.8 g/dL (12.0-15.5) L 09/17/18 07:30 Hct 29.3 % (36.0-46.0) L 09/17/18 07:30 MCV 88.0 fL (80-95) 09/17/18 07:30 MCH 26.4 pg (27.0-33.0) L 09/17/18 07:30 MCHC 30.0 g/dL (32.0-36.0) L 09/17/18 07:30 RDW 16.1 % (11.7-14.6) H 09/17/18 07:30 Plt Count 314 x1000/uL (130-400) 09/17/18 07:30 MPV 10.4 fL (8.0-11.0) 09/17/18 07:30 Immature Gran % 1.0 09/17/18 07:30 Neutrophils % 75.4 09/17/18 07:30 Band Neutrophils % 1.0 % 09/16/18 06:20 Lymphocytes % 13.5 09/17/18 07:30 Monocytes % 9.8 09/17/18 07:30 Eosinophils % 0.2 09/17/18 07:30 Basophils % 0.1 09/17/18 07:30 Metamyelocytes % 1.0 % 09/16/18 06:20 Absolute Neutrophils 9.18 k/cumm (1.2-6.7) H 09/17/18 07:30 Absolute Lymphocytes 1.64 k/cumm (1.2-3.4) 09/17/18 07:30 Absolute Monocytes 1.19 k/cumm (0.11-0.7) H 09/17/18 07:30 Absolute Eosinophils 0.02 k/cumm (0.0-0.7) 09/17/18 07:30 Absolute Basophils 0.01 k/cumm (0.0-0.2) 09/17/18 07:30 Differential Comment Manual differential 09/16/18 06:20 RBC Morphology See below 09/16/18 06:20 Polychromasia Present 09/16/18 06:20 Hypochromasia 1+ 09/16/18 06:20 Basophilic Stippling Present 09/15/18 06:10 Anisocytosis 1+ 09/15/18 06:10 Sodium 143 mmol/L (136-145) 09/17/18 07:30 Potassium 4.4 mmol/L (3.5-5.1) D 09/17/18 07:30 Chloride 111 mmol/L (98-107) H 09/17/18 07:30 Carbon Dioxide 25.3 mmol/L (21.0-32.0) 09/17/18 07:30 Anion Gap 6.7 mmol/L (3-11) 09/17/18 07:30 BUN 12 mg/dL (7-18) 09/17/18 07:30 Creatinine 0.72 mg/dL (0.55-1.02) 09/17/18 07:30 Estimated GFR/1.73 m2 >= 60.00 (mL/min/1.73m2) 09/17/18 07:30 Glucose 89 mg/dL (70-100) 09/17/18 07:30 Calcium 8.2 mg/dL (8.5-10.1) L 09/17/18 07:30 Magnesium 2.1 mg/dL (1.8-2.4) 09/17/18 07:30 Total Bilirubin 0.4 mg/dL (0.2-1.0) 09/11/18 12:30 AST 23 U/L (15-37) 09/11/18 12:30 ALT 26 U/L (12-78) 09/11/18 12:30 Alkaline Phosphatase 83 U/L (46-116) 09/11/18 12:30 Troponin I < 0.02 ng/mL (0.00-0.06) 09/11/18 12:30 Total Protein 7.2 g/dL (6.4-8.2) 09/11/18 12:30 Albumin 2.7 g/dL (3.4-5.0) L 09/11/18 12:30 Urine Color Yellow (Yellow) 09/16/18 13:05 Urine Clarity Clear 09/16/18 13:05 Urine pH 8.5 (5-8) H 09/16/18 13:05 Ur Specific [place] 1.015 (1.005-1.025) 09/16/18 13:05 Urine Protein Negative mg/dL (Negative) 09/16/18 13:05 Urine Ketones Negative mg/dL (Negative) 09/16/18 13:05 Urine Blood Trace-intact (Negative) H 09/16/18 13:05 Urine Nitrite Negative (Negative) 09/16/18 13:05 Urine Bilirubin Negative (Negative) 09/16/18 13:05 Urine Urobilinogen 0.2 EU/dL (Up TO 0.2) 09/16/18 13:05 Ur Leukocyte Esterase Negative (Negative) 09/16/18 13:05 Urine RBC 5-10 (0-2) H 09/16/18 13:05 Urine WBC 0-2 HPF (0-5) 09/16/18 13:05 Ur Epithelial Cells Rare HPF (Negative) 09/16/18 13:05 Urine Crystals Negative HPF (Negative) 09/16/18 13:05 Urine Bacteria Rare HPF (Negative) 09/16/18 13:05 Urine Casts Negative LPF (Negative) 09/16/18 13:05 Urine Mucus Negative (Negative) 09/16/18 13:05 Ur Culture Indicated? No 09/16/18 13:05 Urine Glucose Negative mg/dL (Negative) 09/16/18 13:05
[2018-09-18 12:00] VITALS: BP 177/88; PULSE 67; RESP 18; TEMP 36.1; O2SAT 98
--- NOTE | 2018-09-18 13:30 | CMPROGNOTE_ITS ---
- If Service Date Differs Date of service: 09/18/18 Time of Service: 13:28 Care Management Progress Note S/O: Riddhi is sitting up in her bed when this keno writer/runner visits this morning, she is pleasant and receptive to discussion. Riddhi states that she did not sleep very well last night, and that she is tired today. No change in DC plan at this time. A: Riddhi is a 78 year old female admitted for compression fracture related to multiple falls at home. She also is being treated for adrenal crisis with IV steroids. P: Riddhi will be discharged to short-term rehab facility when she is medically ready per provider. CM to continue to provide support to patient and family discharge planning and disposition. Riddhi will be transported to facility.
--- NOTE | 2018-09-18 14:50 | W.PM.PROGNOT ---
Date of Service Date of service: 09/18/18 Time of Service: 15:09 Assessment and Plan (1) Compression fracture of body of thoracic vertebra: Start date: 09/18/18 Start time: 15:06 Current visit: No Status: Acute Minimal pain today. She was more upset about ambien being taken away. She did refuse PT today because of lack of sleep though she has been getting out of bed and going to the BR with a walker. (2) Adrenal insufficiency: Start date: 09/18/18 Start time: 15:06 Current visit: No Status: Acute Treated with 4 mg daily prednisone for PMR, will need to evaluate dosage on outpatient level (3) Leukocytosis (leucocytosis): Start date: 09/18/18 Start time: 15:06 Current visit: No Status: Chronic improved. (4) Palliative care patient: Start date: 09/18/18 Start time: 15:06 Current visit: No Status: Chronic Seen by Dr. Connor (5) PMR (polymyalgia rheumatica): Start date: 09/18/18 Start time: 15:07 Current visit: No Status: Chronic See above (6) Pain management: Start date: 09/18/18 Start time: 15:07 Current visit: No Status: Acute pain management secondary to T12 compression fracture. see above (7) Anemia: Start date: 09/18/18 Start time: 15:07 Current visit: No Status: Acute H&H stable continue with iron, Iron and ferritin and B12 levels ordered Qualifiers: Anemia type: iron deficiency Iron deficiency anemia type: other iron deficiency Vitamin B12 deficiency anemia type: Folate deficiency anemia type: Bone marrow failure anemia type: Hemolytic anemia type: Other causes of anemia: Chronic kidney disease stage: Qualified Code(s): D50.8 - Other iron deficiency anemias (8) S/P exploratory laparotomy: Start date: 09/18/18 Start time: 15:08 Current visit: No Status: Acute surgery dcd cipro and flagyl Subjective Patient reports: feels better and still having pain Interval history since last seen: Mrs. Manuel, is a 78 y.o Female with PMH of adrenal insufficiency, PMR, she presents to [facility] emergency department today after a fall c/o back pain. Mrs. Manuel has a hx of PMR, Adrenal insufficiency, Bowel Perforation s/p colonoscopy which she was admitted to our service for in June. RIZWAN, Chronic Leukocytosis, hypokalemia, she takes 4 mg prednisone daily for PMR and she was on a tapering dose when she was discharged from our hospital 08/01/2018. Today her abdominal pain has subsided. She did show to have stool impaction on her CT. She has been having loose stool in which a c-diff was done and resulted negative. She is having PVR ranging from 150-over 400 and refusing straight cath. she agrees to timed voiding and flomax has been started. She refused to work with PT today as she stated she did not sleep because her ambien was taken away. 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 She will be started on 5 mg ambien with melatonin for sleep. She was also c/o dry mouth biotene as been ordered. Exam Const General: cooperative, healthy appearing and no acute distress Neck Neck: normal visual inspection Lymphatic: no lymphadenopathy noted and no lymphedema noted Chest Chest: normal inspection of the chest Resp Effort & Inspection: normal respiratory effort and able to speak in complete sentences Cardio Jugular venous pressure: no JVD Rate: regular rate Rhythm: regular rhythm Heart Sounds: S1 normal and S2 normal GI Inspection: normal to inspection Back/Spine/Pelvis Thoracic/Lumbar Spine: thoraco-lumbar ROM limited and thoracic spinal tenderness Skin General skin exam: scars (to abdomen s/p perforation from colonoscopy) Neuro General: alert, awake and oriented x3 Extrem General: normal to inspection Objective Objective Clinical Data: Vital Signs Temperature 36.1 C L 09/18/18 12:00 Temperature Source Tympanic 09/18/18 12:00 Pulse 67 09/18/18 12:00 Pulse Rhythm Regular 09/18/18 07:30 Pulse 83 09/11/18 15:40 Respiratory Rate 18 09/18/18 12:00 Respiratory Effort Non-Labored 09/18/18 07:30 Respiratory Depth Normal 09/18/18 07:30 Respiratory Pattern Normal 09/18/18 07:30 Blood Pressure 177/88 H 09/18/18 12:00 Blood Pressure Mean 79 09/11/18 15:01 Blood Pressure Position Supine 09/11/18 11:35 Pulse Oximetry 98 09/18/18 12:00 Oxygen Delivery Method Room Air 09/18/18 12:00 Oxygen Flow Rate 0 09/18/18 12:00 Pain Level 0 09/18/18 14:12 Comment 09/15/18 03:00 Intake & Output 09/17/18 09/18/18 09/18/18 23:59 11:59 23:59 Intake Total 842.5 / 2752.5 1440 / 1440 Output Total 3900 / 6800 4150 / 5750 1600 / 5750 Balance -3057.5 / -4047.5 -2710 / -4310 -1600 / -4310 Intake: IV 602.5 / 2032.5 140 / 140 Oral 240 / 720 1300 / 1300 Output: Urine 3900 / 6800 3600 / 5200 1600 / 5200 Post Void Residual 550 / 550 Other: Urine Color Yellow Yellow Yellow Urine Appearance Clear Clear Urine Odor None Comment Pt voided 700 before bladder scan Stool Size Moderate Stool Characteristics Soft Liquid Brown Voiding Methods Toilet Toilet Toilet Laboratory Results WBC 12.18 k/cumm (4.4-10.8) H D 09/17/18 07:30 RBC 3.33 m/cumm (4.00-5.20) L 09/17/18 07:30 Hgb 8.8 g/dL (12.0-15.5) L 09/17/18 07:30 Hct 29.3 % (36.0-46.0) L 09/17/18 07:30 MCV 88.0 fL (80-95) 09/17/18 07:30 MCH 26.4 pg (27.0-33.0) L 09/17/18 07:30 MCHC 30.0 g/dL (32.0-36.0) L 09/17/18 07:30 RDW 16.1 % (11.7-14.6) H 09/17/18 07:30 Plt Count 314 x1000/uL (130-400) 09/17/18 07:30 MPV 10.4 fL (8.0-11.0) 09/17/18 07:30 Immature Gran % 1.0 09/17/18 07:30 Neutrophils % 75.4 09/17/18 07:30 Band Neutrophils % 1.0 % 09/16/18 06:20 Lymphocytes % 13.5 09/17/18 07:30 Monocytes % 9.8 09/17/18 07:30 Eosinophils % 0.2 09/17/18 07:30 Basophils % 0.1 09/17/18 07:30 Metamyelocytes % 1.0 % 09/16/18 06:20 Absolute Neutrophils 9.18 k/cumm (1.2-6.7) H 09/17/18 07:30 Absolute Lymphocytes 1.64 k/cumm (1.2-3.4) 09/17/18 07:30 Absolute Monocytes 1.19 k/cumm (0.11-0.7) H 09/17/18 07:30 Absolute Eosinophils 0.02 k/cumm (0.0-0.7) 09/17/18 07:30 Absolute Basophils 0.01 k/cumm (0.0-0.2) 09/17/18 07:30 Differential Comment Manual differential 09/16/18 06:20 RBC Morphology See below 09/16/18 06:20 Polychromasia Present 09/16/18 06:20 Hypochromasia 1+ 09/16/18 06:20 Basophilic Stippling Present 09/15/18 06:10 Anisocytosis 1+ 09/15/18 06:10 Sodium 143 mmol/L (136-145) 09/17/18 07:30 Potassium 4.4 mmol/L (3.5-5.1) D 09/17/18 07:30 Chloride 111 mmol/L (98-107) H 09/17/18 07:30 Carbon Dioxide 25.3 mmol/L (21.0-32.0) 09/17/18 07:30 Anion Gap 6.7 mmol/L (3-11) 09/17/18 07:30 BUN 12 mg/dL (7-18) 09/17/18 07:30 Creatinine 0.72 mg/dL (0.55-1.02) 09/17/18 07:30 Estimated GFR/1.73 m2 >= 60.00 (mL/min/1.73m2) 09/17/18 07:30 Glucose 89 mg/dL (70-100) 09/17/18 07:30 Calcium 8.2 mg/dL (8.5-10.1) L 09/17/18 07:30 Magnesium 2.1 mg/dL (1.8-2.4) 09/17/18 07:30 Total Bilirubin 0.4 mg/dL (0.2-1.0) 09/11/18 12:30 AST 23 U/L (15-37) 09/11/18 12:30 ALT 26 U/L (12-78) 09/11/18 12:30 Alkaline Phosphatase 83 U/L (46-116) 09/11/18 12:30 Troponin I < 0.02 ng/mL (0.00-0.06) 09/11/18 12:30 Total Protein 7.2 g/dL (6.4-8.2) 09/11/18 12:30 Albumin 2.7 g/dL (3.4-5.0) L 09/11/18 12:30 Urine Color Yellow (Yellow) 09/16/18 13:05 Urine Clarity Clear 09/16/18 13:05 Urine pH 8.5 (5-8) H 09/16/18 13:05 Ur Specific Scheller 1.015 (1.005-1.025) 09/16/18 13:05 Urine Protein Negative mg/dL (Negative) 09/16/18 13:05 Urine Ketones Negative mg/dL (Negative) 09/16/18 13:05 Urine Blood Trace-intact (Negative) H 09/16/18 13:05 Urine Nitrite Negative (Negative) 09/16/18 13:05 Urine Bilirubin Negative (Negative) 09/16/18 13:05 Urine Urobilinogen 0.2 EU/dL (Up TO 0.2) 09/16/18 13:05 Ur Leukocyte Esterase Negative (Negative) 09/16/18 13:05 Urine RBC 5-10 (0-2) H 09/16/18 13:05 Urine WBC 0-2 HPF (0-5) 09/16/18 13:05 Ur Epithelial Cells Rare HPF (Negative) 09/16/18 13:05 Urine Crystals Negative HPF (Negative) 09/16/18 13:05 Urine Bacteria Rare HPF (Negative) 09/16/18 13:05 Urine Casts Negative LPF (Negative) 09/16/18 13:05 Urine Mucus Negative (Negative) 09/16/18 13:05 Ur Culture Indicated? No 09/16/18 13:05 Urine Glucose Negative mg/dL (Negative) 09/16/18 13:05
[2018-09-18 15:37] VITALS: BP 178/83; PULSE 82; RESP 20; TEMP 36.6; O2SAT 96
[2018-09-18 17:01] LABS: Abs Immature Grans 0.16 k/cumm (0.0-0.09); Absolute Basophil Count 0.03 k/cumm (0.0-0.2); Absolute Eosinophil Count 0.03 k/cumm (0.0-0.7); Absolute Monocyte Count 0.96 k/cumm (0.11-0.7); Basophils % 0.3; Eosinophils % 0.3; HCT 34.9 % (36.0-46.0); Immature Grans % 1.4; Lymphocytes % 16.8; Mean Corp. HGB Concentration 31.5 g/dL (32.0-36.0); Mean Corpuscular Volume 85.7 fL (80-95); Mean Platelet Volume 10.4 fL (8.0-11.0); Monocytes % 8.5; Neutrophils % 72.7; Platelet Count 402 x1000/uL (130-400); RBC 4.07 m/cumm (4.00-5.20); RBC Distribution Width 16.1 % (11.7-14.6); White Blood Cell Count 11.33 k/cumm (4.4-10.8)
[2018-09-18 17:12] LABS: Absolute Neutrophil Count 8.24 k/cumm (1.2-6.7)
[2018-09-18 17:35] LABS: Anion Gap 7.5 mmol/L (3-11); BUN 14 mg/dL (7-18); CO2 29.5 mmol/L (21.0-32.0); CREATININE 0.94 mg/dL (0.55-1.02); Calcium 9.1 mg/dL (8.5-10.1); Chloride 102 mmol/L (98-107); Estimated GFR 57.74 (mL/min/1.73m2); Ferritin 483 ng/mL (8-388); Glucose 103 mg/dL (70-100); Magnesium 1.8 mg/dL (1.8-2.4); Potassium 3.9 mmol/L (3.5-5.1); Sodium 139 mmol/L (136-145)
[2018-09-18 18:08] LABS: C-Reactive Protein 2.19 mg/dL (0.0-0.3)
[2018-09-18 18:11] LABS: Iron 31 ug/dL (50-175)
[2018-09-18 18:38] LABS: Vitamin B12 615 pg/mL (193-986)
[2018-09-18 19:23] VITALS: BP 170/80; PULSE 74; RESP 18; TEMP 36.8; O2SAT 98
[2018-09-18] MEDS: Melatonin 3 MG TAB 6 MG PO (20:59)
[2018-09-18] MEDS: Mirtazapine 15 MG TAB 7.5 MG PO (21:00)
[2018-09-18] MEDS: Patch Removal 1 EACH TP (21:00)
[2018-09-18] MEDS: Zolpidem 5 MG TAB PO (21:03)
--- NOTE | 2018-09-18 21:36 | NUR.NOTE ---
Nursing Note: During assessment of Pat this evening I noticed she was still having involuntary lip smacking and tongue movements that she is not aware of and cannot stop when asked. I had been her nurse several days ago and first noted these extrapyramidal symptoms and reported to charge nurse/MD, see note. She had had previous stays in the hospital in last few months where I was her nurse then as well. When I first met her she did not have these involuntary (or voluntary) movements in her mouth/lips. Now it is still noted and and continuous. I asked her about this again today and she is not aware she does this and says that maybe her mouth is dry. I gave her a drink and chap stick, then asked her to control the movement and not do that while we were talking. She was not able to stop the movements for more than a couple of seconds. I looked up her medications, found she is on Remeron and Wellbutrin. I quickly looked for research articles that mentioned these medications and this side effect. Articles and research studies on [employer] mentioned extrapyramidal side effect for both meds. I will report this again to the charge nurse to communicate with MD as well.
[2018-09-18 23:53] VITALS: BP 162/81; PULSE 66; RESP 20; TEMP 36.8; O2SAT 97
[2018-09-19 04:51] VITALS: BP 158/70; PULSE 60; RESP 16; TEMP 35.9; O2SAT 96
[2018-09-19] MEDS: Ketorolac 15 MG/ML VIAL IVP ×2 (05:46→23:10)
[2018-09-19] MEDS: Normal Saline Flush 10 ML SYR IVP ×3 (05:46→23:10)
[2018-09-19] MEDS: Levothyroxine 125 MCG TAB PO (05:47)
[2018-09-19 07:45] VITALS: BP 166/69; PULSE 65; RESP 18; TEMP 36.4; O2SAT 97
[2018-09-19 07:57] LABS: Abs Immature Grans 0.19 k/cumm (0.0-0.09); Absolute Basophil Count 0.04 k/cumm (0.0-0.2); Absolute Eosinophil Count 0.07 k/cumm (0.0-0.7); Absolute Lymphocyte Count 2.22 k/cumm (1.2-3.4); Absolute Neutrophil Count 6.35 k/cumm (1.2-6.7); Basophils % 0.4; Eosinophils % 0.7; HGB 10.5 g/dL (12.0-15.5); Immature Grans % 1.9; Lymphocytes % 22.5; Mean Corp. HGB Concentration 30.9 g/dL (32.0-36.0); Mean Corpuscular Hemoglobin 26.8 pg (27.0-33.0); Mean Corpuscular Volume 86.7 fL (80-95); Mean Platelet Volume 10.1 fL (8.0-11.0); Monocytes % 10.1; Neutrophils % 64.4; Platelet Count 442 x1000/uL (130-400); RBC 3.92 m/cumm (4.00-5.20); RBC Distribution Width 16.3 % (11.7-14.6); White Blood Cell Count 9.87 k/cumm (4.4-10.8)
[2018-09-19 08:01] LABS: Anion Gap 9.6 mmol/L (3-11); BUN 13 mg/dL (7-18); C-Reactive Protein 1.37 mg/dL (0.0-0.3); CO2 26.4 mmol/L (21.0-32.0); CREATININE 0.87 mg/dL (0.55-1.02); Calcium 8.7 mg/dL (8.5-10.1); Chloride 105 mmol/L (98-107); Glucose 88 mg/dL (70-100); Magnesium 1.9 mg/dL (1.8-2.4); Potassium 4.2 mmol/L (3.5-5.1); Sodium 141 mmol/L (136-145)
[2018-09-19] MEDS: Lidocaine 5% Patch 1 PATCH TP (08:29)
[2018-09-19] MEDS: Pantoprazole 40 MG VIAL IVP (08:29)
[2018-09-19] MEDS: traMADol 50 MG TAB PO ×2 (08:30→18:00)
[2018-09-19] MEDS: Furosemide 20 MG TAB 40 MG PO (08:30)
[2018-09-19] MEDS: Potassium Chloride 20 MEQ TABCR 40 MEQ PO ×2 (08:30→20:15)
[2018-09-19] MEDS: buPROPion-XL 150 MG TABCR 450 MG PO (08:30)
[2018-09-19] MEDS: Multivitamin TAB 1 TAB PO ×2 (08:30→20:15)
[2018-09-19] MEDS: Folic Acid 1 MG TAB PO (08:30)
[2018-09-19] MEDS: Calcium 600mg/Vit D 200U TAB 1 TAB PO (08:30)
[2018-09-19] MEDS: Magnesium Chloride 64 MG TABCR PO ×2 (08:30→20:15)
[2018-09-19] MEDS: Tamsulosin 0.4 MG CAPCR PO (08:30)
[2018-09-19] MEDS: methylPREDNISolone 4 MG TAB 10 MG PO (08:30)
[2018-09-19] MEDS: Acetaminophen 325 MG TAB 650 MG PO ×3 (08:31→20:15)
--- NOTE | 2018-09-19 11:04 | PT.INTREAT ---
Date of service: 09/19/18 Time of Service: 09:30 PT Notes Inpatient Physical Therapy Treatment Note [facility] Date: 09/19/18 SUBJECTIVE: Pat reports that she is feeling well. No c/o back pain. She is concerned with the not being able to urinate. OBJECTIVE: [] BED MOBILITY/TRANSFERS Sit-supine: S Sit-stand: S Stand-sit: S Bed-Chair: S Chair-bed: S GAIT Assistive Device:FWW Weight bearing:full Assist: S Distance: 400' THEREX: performed a global strength and stabilization routine. Please refer to flowsheet for specific details. ASSESSMENT: tolerated session well. No c/o increased back pain. PLAN: will continue to progress following PT POC. TREATMENT CODE/TIME: 25 min. TPx1, TAx1.
[2018-09-19 11:54] VITALS: BP 153/81; PULSE 78; RESP 18; TEMP 36.5; O2SAT 96
--- NOTE | 2018-09-19 14:30 | CMPROGNOTE_ITS ---
- If Service Date Differs Date of service: 09/19/18 Time of Service: 14:28 Care Management Progress Note S/O: Riddhi is sitting up in her bed this morning. She reports feeling a little better, and that she was able to sleep somewhat better last night. Riddhi had high PVR's last evening, therefore had to be cathed last evening, which she is concerned about today. A: Riddhi is a 78 year old female admitted for compression fracture related to multiple falls at home. She also is being treated for adrenal crisis with IV steroids. P: Riddhi will be discharged to short-term rehab facility when she is medica lly ready per provider. CM to continue to provide support to patient and family discharge planning and disposition. Riddhi will be transported to facility.
[2018-09-19] MEDS: methylPREDNISolone 4 MG TAB 8 MG PO (16:03)
[2018-09-19 16:10] VITALS: BP 133/72; PULSE 101; RESP 18; TEMP 36.9; O2SAT 96
--- NOTE | 2018-09-19 17:05 | PGE_ITS ---
Date of Service Date of service: 09/19/18 Time of Service: 17:01 Assessment and Plan (1) Compression fracture of body of thoracic vertebra: Current visit: No Status: Acute I am now concerned that the patient's change in bowel habits as well as urinary retention could be related to this spinal injury. No evidence of cauda equina on rectal exam, but MRI of thoracic and lumbar spine is still indicated. (2) Adrenal insufficiency: Current visit: No Status: Acute Start to titrate medrol down. 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 (3) Urinary retention with incomplete bladder emptying: Current visit: Yes Status: Acute ?related to spinal cord injury - for MRI thoracic/lumbar spine. Continue PVR's. (4) Leukocytosis (leucocytosis): Current visit: No Status: Chronic Resolved; in setting of stress dose steroids and acute injury. (5) Palliative care patient: Current visit: No Status: Chronic Seen by Dr. Connor (6) PMR (polymyalgia rheumatica): Current visit: No Status: Chronic See above (7) Pain management: Current visit: No Status: Acute pain management secondary to T12 compression fracture. see above (8) Anemia: Current visit: No Status: Acute H&H stable. Ferritin and B12 levels not consistent with deficiency of either. Likely anemia of chronic disease. Qualifiers: Anemia type: iron deficiency Bone marrow failure anemia type: Chronic kidney disease stage: Folate deficiency anemia type: Hemolytic anemia type: Iron deficiency anemia type: other iron deficiency Other causes of anemia: Vitamin B12 deficiency anemia type: Qualified Code(s): D50.8 - Other iron deficiency anemias (9) S/P exploratory laparotomy: Current visit: No Status: Chronic Doing well off abx. No evidence of acute intraabdominal process. 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 No further workup. (11) Ambulatory dysfunction: Current visit: Yes Status: Acute Continue working with PT/OT. Will likely need rehab. (12) Discharge planning issues: Current visit: Yes Status: Acute DNR/DNI Will likely need SNF (13) DVT prophylaxis: Current visit: Yes Status: Acute Lovenox Subjective Interval history since last seen: Denies dizziness, chest pain, shortness of breath, nausea, vomiting. She has been having diarrhea, but having to push it out. She again had urinary retention last night, permitting straight catheterization - 700 cc of urine came out. She has not had any incontinence of bowel or bladder. Denies numbness/tingling, but does continue to report lower back pain. She has been able to ambulate with a walker. Exam Narrative Exam Narrative: General: very pleasant elderly female, comfortable in bed HEENT: EOMI, MMM Heart: RRR, no m/r/g Lungs: CTAB GI: abdomen is soft; incision well healed; nontender, nondistended Rectal exam: intact rectal tone Extremities: nonpitting edema BLE's, wearing KAMRYN stockings, +1 pedal pulses B Objective Objective Clinical Data: Abnormal lab results 09/18/18 09/18/18 09/18/18 Range/Units 16:26 16:26 16:26 WBC 11.33 H (4.4-10.8) k/cumm RBC (4.00-5.20) m/cumm Hgb 11.0 L D (12.0-15.5) g/dL Hct 34.9 L (36.0-46.0) % MCH (27.0-33.0) pg MCHC 31.5 L (32.0-36.0) g/dL RDW 16.1 H (11.7-14.6) % Plt Count 402 H (130-400) x1000/uL Absolute Neutrophils 8.24 H (1.2-6.7) k/cumm Absolute Monocytes 0.96 H (0.11-0.7) k/cumm Glucose 103 H (70-100) mg/dL Iron 31 L (50-175) ug/dL Ferritin 483 H (8-388) ng/mL C-Reactive Protein 2.19 H (0.0-0.3) mg/dL 09/19/18 09/19/18 Range/Units 07:00 07:00 WBC (4.4-10.8) k/cumm RBC 3.92 L (4.00-5.20) m/cumm Hgb 10.5 L (12.0-15.5) g/dL Hct 34.0 L (36.0-46.0) % MCH 26.8 L (27.0-33.0) pg MCHC 30.9 L (32.0-36.0) g/dL RDW 16.3 H (11.7-14.6) % Plt Count 442 H (130-400) x1000/uL Absolute Neutrophils (1.2-6.7) k/cumm Absolute Monocytes 1.00 H (0.11-0.7) k/cumm Glucose (70-100) mg/dL Iron (50-175) ug/dL Ferritin (8-388) ng/mL C-Reactive Protein 1.37 H (0.0-0.3) mg/dL Vital Signs Temperature 36.9 C 09/19/18 16:10 Temperature Source Tympanic 09/19/18 16:10 Pulse 101 H 09/19/18 16:10 Pulse Rhythm Regular 09/19/18 10:19 Pulse 83 09/11/18 15:40 Respiratory Rate 18 09/19/18 16:10 Respiratory Effort 09/19/18 10:19 Respiratory Depth Normal 09/19/18 10:19 Respiratory Pattern Normal 09/19/18 10:19 Blood Pressure 133/72 09/19/18 16:10 Blood Pressure Mean 79 09/11/18 15:01 Blood Pressure Position Supine 09/11/18 11:35 Pulse Oximetry 96 09/19/18 16:10 Oxygen Delivery Method Room Air 09/19/18 16:10 Oxygen Flow Rate 0 09/19/18 16:10 Pain Level 3 09/19/18 13:02 Comment 09/15/18 03:00 Intake & Output 09/18/18 09/19/18 09/19/18 23:59 11:59 23:59 Intake Total 4510 / 7390 500 / 950 450 / 950 Output Total 4350 / 8500 2400 / 3600 1200 / 3600 Balance 160 / -1110 -1900 / -2650 -750 / -2650 Weight 76 kg Intake: IV 30 / 170 210 / 210 Oral 4480 / 7220 500 / 740 240 / 740 Output: Urine 4350 / 7950 2350 / 3550 1200 / 3550 Stool 50 / 50 Other: Urine Color Yellow Yellow Yellow Urine Appearance Clear Clear Clear Comment pt voided at 2030, scan done now. Pt does not have urge to urinate, refuses ISC and fajardo. Pt agreed to ISC only, refused for fajardo to be put in. Stool Occult Blood Negative Stool Size Moderate Moderate Stool Characteristics Soft Soft Brown Brown Voiding Methods Toilet Toilet Toilet Laboratory Results WBC 9.87 k/cumm (4.4-10.8) 09/19/18 07:00 RBC 3.92 m/cumm (4.00-5.20) L 09/19/18 07:00 Hgb 10.5 g/dL (12.0-15.5) L 09/19/18 07:00 Hct 34.0 % (36.0-46.0) L 09/19/18 07:00 MCV 86.7 fL (80-95) 09/19/18 07:00 MCH 26.8 pg (27.0-33.0) L 09/19/18 07:00 MCHC 30.9 g/dL (32.0-36.0) L 09/19/18 07:00 RDW 16.3 % (11.7-14.6) H 09/19/18 07:00 Plt Count 442 x1000/uL (130-400) H 09/19/18 07:00 MPV 10.1 fL (8.0-11.0) 09/19/18 07:00 Immature Gran % 1.9 09/19/18 07:00 Neutrophils % 64.4 09/19/18 07:00 Band Neutrophils % 1.0 % 09/16/18 06:20 Lymphocytes % 22.5 09/19/18 07:00 Monocytes % 10.1 09/19/18 07:00 Eosinophils % 0.7 09/19/18 07:00 Basophils % 0.4 09/19/18 07:00 Metamyelocytes % 1.0 % 09/16/18 06:20 Absolute Neutrophils 6.35 k/cumm (1.2-6.7) 09/19/18 07:00 Absolute Lymphocytes 2.22 k/cumm (1.2-3.4) 09/19/18 07:00 Absolute Monocytes 1.00 k/cumm (0.11-0.7) H 09/19/18 07:00 Absolute Eosinophils 0.07 k/cumm (0.0-0.7) 09/19/18 07:00 Absolute Basophils 0.04 k/cumm (0.0-0.2) 09/19/18 07:00 Differential Comment Manual differential 09/16/18 06:20 RBC Morphology See below 09/16/18 06:20 Polychromasia Present 09/16/18 06:20 Hypochromasia 1+ 09/16/18 06:20 Basophilic Stippling Present 09/15/18 06:10 Anisocytosis 1+ 09/15/18 06:10 Sodium 141 mmol/L (136-145) 09/19/18 07:00 Potassium 4.2 mmol/L (3.5-5.1) 09/19/18 07:00 Chloride 105 mmol/L (98-107) 09/19/18 07:00 Carbon Dioxide 26.4 mmol/L (21.0-32.0) 09/19/18 07:00 Anion Gap 9.6 mmol/L (3-11) 09/19/18 07:00 BUN 13 mg/dL (7-18) 09/19/18 07:00 Creatinine 0.87 mg/dL (0.55-1.02) 09/19/18 07:00 Estimated GFR/1.73 m2 >= 60.00 (mL/min/1.73m2) 09/19/18 07:00 Glucose 88 mg/dL (70-100) 09/19/18 07:00 Calcium 8.7 mg/dL (8.5-10.1) 09/19/18 07:00 Magnesium 1.9 mg/dL (1.8-2.4) 09/19/18 07:00 Iron 31 ug/dL (50-175) L 09/18/18 16:26 Ferritin 483 ng/mL (8-388) H 09/18/18 16:26 Total Bilirubin 0.4 mg/dL (0.2-1.0) 09/11/18 12:30 AST 23 U/L (15-37) 09/11/18 12:30 ALT 26 U/L (12-78) 09/11/18 12:30 Alkaline Phosphatase 83 U/L (46-116) 09/11/18 12:30 Troponin I < 0.02 ng/mL (0.00-0.06) 09/11/18 12:30 C-Reactive Protein 1.37 mg/dL (0.0-0.3) H 09/19/18 07:00 Total Protein 7.2 g/dL (6.4-8.2) 09/11/18 12:30 Albumin 2.7 g/dL (3.4-5.0) L 09/11/18 12:30 Vitamin B12 615 pg/mL (193-986) 09/18/18 16:26 Urine Color Yellow (Yellow) 09/16/18 13:05 Urine Clarity Clear 09/16/18 13:05 Urine pH 8.5 (5-8) H 09/16/18 13:05 Ur Specific Cameron 1.015 (1.005-1.025) 09/16/18 13:05 Urine Protein Negative mg/dL (Negative) 09/16/18 13:05 Urine Ketones Negative mg/dL (Negative) 09/16/18 13:05 Urine Blood Trace-intact (Negative) H 09/16/18 13:05 Urine Nitrite Negative (Negative) 09/16/18 13:05 Urine Bilirubin Negative (Negative) 09/16/18 13:05 Urine Urobilinogen 0.2 EU/dL (Up TO 0.2) 09/16/18 13:05 Ur Leukocyte Esterase Negative (Negative) 09/16/18 13:05 Urine RBC 5-10 (0-2) H 09/16/18 13:05 Urine WBC 0-2 HPF (0-5) 09/16/18 13:05 Ur Epithelial Cells Rare HPF (Negative) 09/16/18 13:05 Urine Crystals Negative HPF (Negative) 09/16/18 13:05 Urine Bacteria Rare HPF (Negative) 09/16/18 13:05 Urine Casts Negative LPF (Negative) 09/16/18 13:05 Urine Mucus Negative (Negative) 09/16/18 13:05 Ur Culture Indicated? No 09/16/18 13:05 Urine Glucose Negative mg/dL (Negative) 09/16/18 13:05
[2018-09-19 19:18] VITALS: BP 155/77; PULSE 92; RESP 18; TEMP 36.7; O2SAT 94
[2018-09-19] MEDS: Mirtazapine 15 MG TAB 7.5 MG PO (23:06)
[2018-09-19] MEDS: Patch Removal 1 EACH TP (23:07)
[2018-09-19] MEDS: Melatonin 3 MG TAB 6 MG PO (23:07)
[2018-09-19] MEDS: Zolpidem 5 MG TAB PO (23:07)
[2018-09-19 23:34] VITALS: BP 161/76; PULSE 77; RESP 17; TEMP 36.4; O2SAT 95
[2018-09-20] MEDS: traMADol 50 MG TAB PO ×3 (02:26→16:32)
[2018-09-20] MEDS: Acetaminophen 325 MG TAB 650 MG PO ×4 (02:26→19:48)
[2018-09-20] MEDS: Levothyroxine 125 MCG TAB PO (06:08)
[2018-09-20 07:40] VITALS: BP 168/55; PULSE 71; RESP 18; TEMP 36.1; O2SAT 97
[2018-09-20] MEDS: Normal Saline Flush 10 ML SYR IVP (08:39)
[2018-09-20] MEDS: Furosemide 20 MG TAB 40 MG PO (08:39)
[2018-09-20] MEDS: Pantoprazole 40 MG VIAL IVP (08:39)
[2018-09-20] MEDS: buPROPion-XL 150 MG TABCR 450 MG PO (08:40)
[2018-09-20] MEDS: Tamsulosin 0.4 MG CAPCR PO (08:40)
[2018-09-20] MEDS: Magnesium Chloride 64 MG TABCR PO ×2 (08:40→19:48)
[2018-09-20] MEDS: methylPREDNISolone 4 MG TAB 10 MG PO (08:40)
[2018-09-20] MEDS: Potassium Chloride 20 MEQ TABCR 40 MEQ PO ×2 (08:41→19:48)
[2018-09-20] MEDS: Multivitamin TAB 1 TAB PO ×2 (08:41→19:48)
[2018-09-20] MEDS: Lidocaine 5% Patch 1 PATCH TP (08:41)
[2018-09-20] MEDS: Folic Acid 1 MG TAB PO (08:41)
[2018-09-20] MEDS: Calcium 600mg/Vit D 200U TAB 1 TAB PO (08:41)
--- NOTE | 2018-09-20 09:21 | PT.INTREAT ---
Date of service: 09/20/18 Time of Service: 08:55 PT Notes Inpatient Physical Therapy Treatment Note [facility] Date: 09/20/18 PRECAUTIONS:Fall SUBJECTIVE: Pr reports that she is doing well today. OBJECTIVE: Sit to stand: CGA Stand-sit: CGA GAIT Assistive Device: 4WW Weight bearing: Full Assist: CGA/SBA Distance: 400ft THEREX: PT completed UE and LE ther ex as per flow sheet. Pt attempted horz abd but it was somewhat uncomfortable on her back so we excluded that exercise for today. ASSESSMENT: Pt tolerated today's session well. PLAN: Cont as per PT POC. TREATMENT CODE/TIME: 8:55-9:20 (25) ANJALI LUJAN
--- NOTE | 2018-09-20 09:43 | PDOC.CMPRO ---
- If Service Date Differs Date of service: 09/20/18 Time of Service: 09:43 Care Management Progress Note S/O: CM met with Riddhi at the bedside she is alert and engaged. She is hopeful she will be discharged to rehab soon. She states she has not been sleeping well. She relies on Ambien for sleep, she has not been sleeping well since the reduced dose. Riddhi is also taking Melatonin to assist with sleep. She will have an MRI today pending results may be ready for transfer to [facility] Thursday. She continues to receive PT. Riddhi continues on oral pain management and oral steroids. She is receiving Toradol IV q 6hrs BUN and Creatinine are elevated today. A: Riddhi is a 78 year old female admitted for compression fracture related to multiple falls at home. She also is being treated for adrenal crisis with IV steroids. P: Riddhi will be discharged to [facility] for short-term rehab when she is medically ready per provider. CM to continue to provide support to patient and family discharge planning and disposition. Riddhi will be transported to [facility] via private car with family.
[2018-09-20 10:12] LABS: HCT 35.1 % (36.0-46.0); Mean Corp. HGB Concentration 31.3 g/dL (32.0-36.0); Mean Corpuscular Hemoglobin 27.1 pg (27.0-33.0); Mean Corpuscular Volume 86.5 fL (80-95); Platelet Count 472 x1000/uL (130-400); RBC 4.06 m/cumm (4.00-5.20); RBC Distribution Width 16.6 % (11.7-14.6); White Blood Cell Count 12.59 k/cumm (4.4-10.8)
[2018-09-20 10:20] LABS: Anion Gap 9.4 mmol/L (3-11); BUN 19 mg/dL (7-18); C-Reactive Protein 0.83 mg/dL (0.0-0.3); CO2 23.6 mmol/L (21.0-32.0); CREATININE 1.05 mg/dL (0.55-1.02); Calcium 8.8 mg/dL (8.5-10.1); Chloride 103 mmol/L (98-107); Estimated GFR 50.82 (mL/min/1.73m2); Glucose 99 mg/dL (70-100); Magnesium 1.9 mg/dL (1.8-2.4); Potassium 4.6 mmol/L (3.5-5.1); Sodium 136 mmol/L (136-145)
[2018-09-20 10:52] LABS: Absolute Lymphocyte Count 2.52 k/cumm (1.2-3.4); Absolute Monocyte Count 1.64 k/cumm (0.11-0.7); Absolute Neutrophil Count 8.06 k/cumm (1.2-6.7); Atypical Lymphocytes % 2
[2018-09-20 10:53] LABS: Diff Comment Manual Differential; Promyelocytes % 0 %
[2018-09-20 10:54] LABS: Polychromasia Present
[2018-09-20 11:50] VITALS: BP 133/73; PULSE 82; RESP 18; TEMP 36.3; O2SAT 96
--- NOTE | 2018-09-20 15:45 | PGE_ITS ---
Date of Service Date of service: 09/20/18 Time of Service: 15:37 Assessment and Plan (1) Compression fracture of body of thoracic vertebra: Current visit: No Status: Acute Concern for impingement given constipation and urinary retention. MRI today. No evidence of cauda equina on rectal exam. (2) Adrenal insufficiency: Current visit: No Status: Acute titrate medrol down. Dr. Bullock bible worker would like her titrated down to 10 mg daily and will follow with her to titrate where she needs to be. (3) Urinary retention with incomplete bladder emptying: Current visit: Yes Status: Acute ?related to spinal cord injury - for MRI thoracic/lumbar spine. Continue PVR's. flomax continued (4) Leukocytosis (leucocytosis): Current visit: No Status: Chronic Resolved; in setting of stress dose steroids and acute injury. (5) Palliative care patient: Current visit: No Status: Chronic Seen by Dr. Connor (6) PMR (polymyalgia rheumatica): Current visit: No Status: Chronic See above (7) Pain management: Current visit: No Status: Acute pain management secondary to T12 compression fracture. see above (8) Anemia: Current visit: No Status: Acute H&H stable. Ferritin and B12 levels not consistent with deficiency of either. Likely anemia of chronic disease. Qualifiers: Anemia type: iron deficiency Bone marrow failure anemia type: Chronic kidney disease stage: Folate deficiency anemia type: Hemolytic anemia type: Iron deficiency anemia type: other iron deficiency Other causes of anemia: Vitamin B12 deficiency anemia type: Qualified Code(s): D50.8 - Other iron deficiency anemias (9) S/P exploratory laparotomy: Current visit: No Status: Chronic Doing well off abx. continue to monitor. 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 No further workup. (11) Ambulatory dysfunction: Current visit: Yes Status: Acute Continue working with PT/OT. Will likely need rehab. (12) Discharge planning issues: Current visit: Yes Status: Acute DNR/DNI Will likely need SNF (13) DVT prophylaxis: Current visit: Yes Status: Acute Lovenox Subjective Patient reports: no new complaints Interval history since last seen: Mrs. Manuel is feeling better today. She asks when she can go to rehab. She does c/o back pain to left back area which she states has been there for a couple of days. She is awaiting an MRI today to r/o spinal impingement given her constipation and urinary retention. She is having loose stools, miralax has been held. She [facility] when medically stable. Exam Const General: cooperative, healthy appearing and no acute distress Neck Neck: normal visual inspection Lymphatic: no lymphadenopathy noted and no lymphedema noted Chest Chest: normal inspection of the chest Resp Effort & Inspection: normal respiratory effort and able to speak in complete sentences Cardio Jugular venous pressure: no JVD Rate: regular rate Rhythm: regular rhythm Heart Sounds: S1 normal and S2 normal GI Inspection: normal to inspection Back/Spine/Pelvis Thoracic/Lumbar Spine: thoraco-lumbar ROM limited and thoracic spinal tenderness Skin General skin exam: scars (to abdomen s/p perforation from colonoscopy) Neuro General: alert, awake and oriented x3 Extrem General: normal to inspection Objective Objective Clinical Data: Abnormal lab results 09/20/18 09/20/18 Range/Units 09:52 09:52 WBC 12.59 H (4.4-10.8) k/cumm Hgb 11.0 L (12.0-15.5) g/dL Hct 35.1 L (36.0-46.0) % MCHC 31.3 L (32.0-36.0) g/dL RDW 16.6 H (11.7-14.6) % Plt Count 472 H (130-400) x1000/uL Absolute Neutrophils 8.06 H (1.2-6.7) k/cumm Absolute Monocytes 1.64 H (0.11-0.7) k/cumm BUN 19 H D (7-18) mg/dL Creatinine 1.05 H (0.55-1.02) mg/dL C-Reactive Protein 0.83 H (0.0-0.3) mg/dL Vital Signs Temperature 36.3 C L 09/20/18 11:50 Temperature Source Tympanic 09/20/18 11:50 Pulse 82 09/20/18 11:50 Pulse Rhythm Regular 09/20/18 08:11 Pulse 83 09/11/18 15:40 Respiratory Rate 18 09/20/18 11:50 Respiratory Effort Non-Labored 09/20/18 08:11 Respiratory Depth Normal 09/20/18 08:11 Respiratory Pattern Normal 09/20/18 08:11 Blood Pressure 133/73 09/20/18 11:50 Blood Pressure Mean 79 09/11/18 15:01 Blood Pressure Position Supine 09/11/18 11:35 Pulse Oximetry 96 09/20/18 11:50 Oxygen Delivery Method Room Air 09/20/18 11:50 Oxygen Flow Rate 0 09/20/18 11:50 Pain Level 3 09/20/18 13:43 Comment 09/20/18 04:00 Intake & Output 09/19/18 09/20/18 09/20/18 23:59 11:59 23:59 Intake Total 820 / 1320 750 / 1130 380 / 1130 Output Total 2750 / 5150 1400 / 2278 878 / 2278 Balance -1930 / -3830 -650 / -1148 -498 / -1148 Weight 76.7 kg Intake: IV 220 / 220 20 / 20 Oral 600 / 1100 750 / 1110 360 / 1110 Output: Urine 2750 / 5100 1400 / 2100 700 / 2100 Post Void Residual 178 / 178 Other: Urine Color Yellow Yellow Yellow Urine Appearance Clear Clear Clear Urine Odor Normal Normal Normal Stool Size Moderate Stool Characteristics Soft Brown Voiding Methods Toilet Toilet Laboratory Results WBC 12.59 k/cumm (4.4-10.8) H 09/20/18 09:52 RBC 4.06 m/cumm (4.00-5.20) 09/20/18 09:52 Hgb 11.0 g/dL (12.0-15.5) L 09/20/18 09:52 Hct 35.1 % (36.0-46.0) L 09/20/18 09:52 MCV 86.5 fL (80-95) 09/20/18 09:52 MCH 27.1 pg (27.0-33.0) 09/20/18 09:52 MCHC 31.3 g/dL (32.0-36.0) L 09/20/18 09:52 RDW 16.6 % (11.7-14.6) H 09/20/18 09:52 Plt Count 472 x1000/uL (130-400) H 09/20/18 09:52 MPV 10.0 fL (8.0-11.0) 09/20/18 09:52 Immature Gran % 0.0 09/20/18 09:52 Neutrophils % 64.0 09/20/18 09:52 Band Neutrophils % 0.0 % 09/20/18 09:52 Lymphocytes % 18.0 09/20/18 09:52 Atypical Lymphs % 2 09/20/18 09:52 Monocytes % 13.0 09/20/18 09:52 Eosinophils % 0.0 09/20/18 09:52 Basophils % 0.0 09/20/18 09:52 Metamyelocytes % 2.0 % 09/20/18 09:52 Myelocytes % 1.0 % 09/20/18 09:52 Promyelocytes % 0 % 09/20/18 09:52 Absolute Neutrophils 8.06 k/cumm (1.2-6.7) H 09/20/18 09:52 Absolute Lymphocytes 2.52 k/cumm (1.2-3.4) 09/20/18 09:52 Absolute Monocytes 1.64 k/cumm (0.11-0.7) H 09/20/18 09:52 Absolute Eosinophils 0.00 k/cumm (0.0-0.7) 09/20/18 09:52 Absolute Basophils 0.00 k/cumm (0.0-0.2) 09/20/18 09:52 Differential Comment Manual differential 09/20/18 09:52 RBC Morphology See below 09/20/18 09:52 Polychromasia Present 09/20/18 09:52 Hypochromasia 1+ 09/16/18 06:20 Basophilic Stippling Present 09/15/18 06:10 Anisocytosis 1+ 09/15/18 06:10 Sodium 136 mmol/L (136-145) 09/20/18 09:52 Potassium 4.6 mmol/L (3.5-5.1) 09/20/18 09:52 Chloride 103 mmol/L (98-107) 09/20/18 09:52 Carbon Dioxide 23.6 mmol/L (21.0-32.0) 09/20/18 09:52 Anion Gap 9.4 mmol/L (3-11) 09/20/18 09:52 BUN 19 mg/dL (7-18) H D 09/20/18 09:52 Creatinine 1.05 mg/dL (0.55-1.02) H 09/20/18 09:52 Estimated GFR/1.73 m2 50.82 (mL/min/1.73m2) 09/20/18 09:52 Glucose 99 mg/dL (70-100) 09/20/18 09:52 Calcium 8.8 mg/dL (8.5-10.1) 09/20/18 09:52 Magnesium 1.9 mg/dL (1.8-2.4) 09/20/18 09:52 Iron 31 ug/dL (50-175) L 09/18/18 16:26 Ferritin 483 ng/mL (8-388) H 09/18/18 16:26 Total Bilirubin 0.4 mg/dL (0.2-1.0) 09/11/18 12:30 AST 23 U/L (15-37) 09/11/18 12:30 ALT 26 U/L (12-78) 09/11/18 12:30 Alkaline Phosphatase 83 U/L (46-116) 09/11/18 12:30 Troponin I < 0.02 ng/mL (0.00-0.06) 09/11/18 12:30 C-Reactive Protein 0.83 mg/dL (0.0-0.3) H 09/20/18 09:52 Total Protein 7.2 g/dL (6.4-8.2) 09/11/18 12:30 Albumin 2.7 g/dL (3.4-5.0) L 09/11/18 12:30 Vitamin B12 615 pg/mL (193-986) 09/18/18 16:26 Urine Color Yellow (Yellow) 09/16/18 13:05 Urine Clarity Clear 09/16/18 13:05 Urine pH 8.5 (5-8) H 09/16/18 13:05 Ur Specific [place] 1.015 (1.005-1.025) 09/16/18 13:05 Urine Protein Negative mg/dL (Negative) 09/16/18 13:05 Urine Ketones Negative mg/dL (Negative) 09/16/18 13:05 Urine Blood Trace-intact (Negative) H 09/16/18 13:05 Urine Nitrite Negative (Negative) 09/16/18 13:05 Urine Bilirubin Negative (Negative) 09/16/18 13:05 Urine Urobilinogen 0.2 EU/dL (Up TO 0.2) 09/16/18 13:05 Ur Leukocyte Esterase Negative (Negative) 09/16/18 13:05 Urine RBC 5-10 (0-2) H 09/16/18 13:05 Urine WBC 0-2 HPF (0-5) 09/16/18 13:05 Ur Epithelial Cells Rare HPF (Negative) 09/16/18 13:05 Urine Crystals Negative HPF (Negative) 09/16/18 13:05 Urine Bacteria Rare HPF (Negative) 09/16/18 13:05 Urine Casts Negative LPF (Negative) 09/16/18 13:05 Urine Mucus Negative (Negative) 09/16/18 13:05 Ur Culture Indicated? No 09/16/18 13:05 Urine Glucose Negative mg/dL (Negative) 09/16/18 13:05
[2018-09-20 16:00] VITALS: BP 148/76; PULSE 102; RESP 20; TEMP 36.2; O2SAT 95
--- NOTE | 2018-09-20 16:20 | DI.MRI_ITS ---
SYMPTOM/DIAGNOSIS: URINARY RETENTION, CONSTIPATION, S/P BACK TRAUMA THORACIC SPINE MRI: Comparison is made with CT of the thoracic spine dated 09/11/[address] of the abdomen and pelvis dated 09/15/18. T 1, T 2, STIR and T 2 3D sagittal and T 2 axial sequences were performed. There has been further interval compression of the T 12 vertebral body. There is now some retropulsion of the superior endplate, increasing from the previous exams. This causes narrowing of the AP dimension of the canal of moderate degree. A Schmorl's node is again noted at the superior endplate of T 11. No new compression fractures are seen. The cord signal is normal. There is marrowed mottled signal which could be secondary to anemia or osteoporosis. No suspicious focal underlying bony lesions are identified. IMPRESSION: Interval increase in compression of the T 12 vertebral body with posterior retropulsion causing mild to moderate central canal stenosis.
[2018-09-20] MEDS: methylPREDNISolone 4 MG TAB 6 MG PO (16:31)
[2018-09-20] MEDS: Normal Saline 1,000 ML 75 ML IV (16:36)
--- NOTE | 2018-09-20 17:01 | DI.VRAD_ITS ---
EXAM: MR Thoracic Spine Without Contrast EXAM DATE/TIME: 09/20/2018 4:16 PM CLINICAL HISTORY: 78 years old, female; Signs and symptoms; Other: Constipation post back trauma; Patient HX: Urinary retention/constipation post back trauma TECHNIQUE: Multiplanar magnetic resonance images of the thoracic spine without intravenous contrast. COMPARISON: CT thoracic lumbar spine wo 09/11/2018 1:48 PM FINDINGS: Unchanged now subacute mild compression deformity of the anterior superior endplate T12, with osseous retropulsion contributing to mild to moderate canal stenosis. Mild chronic compression deformity versus large Schmorl's node of the superior endplate of T11. Remaining thoracic vertebral body heights are intact. No cord compression. No abnormal cord signal. Thoracic kyphosis is preserved. Thoracic disc space heights are unremarkable. Paravertebral soft tissues are unremarkable. Partially visualized T2 hyperintense cyst in the right kidney. IMPRESSION: 1. No acute findings or evidence of cord compression or abnormal cord signal in the thoracic spine. 2. Unchanged now subacute mild compression deformity of the anterior superior endplate T12, with osseous retropulsion contributing to mild to moderate canal stenosis. Dictated and Authenticated by: Armond Sotelo MD. Ordering:ASHLIE San MD
[2018-09-20 19:40] VITALS: BP 143/89; PULSE 89; RESP 18; TEMP 36.4; O2SAT 95
[2018-09-20] MEDS: Zolpidem 5 MG TAB PO (22:55)
[2018-09-20] MEDS: Mirtazapine 15 MG TAB 7.5 MG PO (22:56)
[2018-09-20] MEDS: Melatonin 3 MG TAB 6 MG PO (22:56)
[2018-09-20] MEDS: Patch Removal 1 EACH TP (22:57)
[2018-09-21] VITALS (7 sets, daily range): BP systolic 129–184; BP diastolic 69–85; PULSE 63–101; RESP 18–19; TEMP 35.9–36.7; O2SAT 94–98
[2018-09-21] MEDS: traMADol 50 MG TAB PO ×3 (01:40→16:22)
[2018-09-21] MEDS: Acetaminophen 325 MG TAB 650 MG PO ×4 (01:40→19:54)
[2018-09-21] MEDS: Levothyroxine 125 MCG TAB PO (06:14)
[2018-09-21] MEDS: Normal Saline 1,000 ML 75 ML IV (06:42)
[2018-09-21 07:20] LABS: Abs Immature Grans 0.29 k/cumm (0.0-0.09); HCT 33.9 % (36.0-46.0); HGB 10.5 g/dL (12.0-15.5); Mean Corpuscular Hemoglobin 26.9 pg (27.0-33.0); Mean Corpuscular Volume 86.7 fL (80-95); Mean Platelet Volume 9.9 fL (8.0-11.0); Platelet Count 419 x1000/uL (130-400); RBC 3.91 m/cumm (4.00-5.20); RBC Distribution Width 16.6 % (11.7-14.6); White Blood Cell Count 11.79 k/cumm (4.4-10.8)
[2018-09-21 07:40] LABS: BUN 18 mg/dL (7-18); C-Reactive Protein 0.61 mg/dL (0.0-0.3); CREATININE 0.87 mg/dL (0.55-1.02); Calcium 8.3 mg/dL (8.5-10.1); Chloride 107 mmol/L (98-107); Glucose 86 mg/dL (70-100); Magnesium 1.9 mg/dL (1.8-2.4); Potassium 4.2 mmol/L (3.5-5.1); Sodium 140 mmol/L (136-145)
[2018-09-21 07:56] LABS: Absolute Neutrophil Count 7.66 k/cumm (1.2-6.7)
[2018-09-21 07:57] LABS: Absolute Eosinophil Count 0.12 k/cumm (0.0-0.7); Absolute Lymphocyte Count 2.83 k/cumm (1.2-3.4); Absolute Monocyte Count 0.94 k/cumm (0.11-0.7); Atypical Lymphocytes % 1; Diff Comment Manual Differential; Poikilocytes 1+
[2018-09-21 07:58] LABS: Polychromasia Present
[2018-09-21] MEDS: methylPREDNISolone 4 MG TAB 10 MG PO (08:37)
[2018-09-21] MEDS: Pantoprazole 40 MG VIAL IVP (08:37)
[2018-09-21] MEDS: Normal Saline Flush 10 ML SYR IVP ×2 (08:37→09:28)
[2018-09-21] MEDS: Furosemide 20 MG TAB 40 MG PO (08:37)
[2018-09-21] MEDS: buPROPion-XL 150 MG TABCR 450 MG PO (08:38)
[2018-09-21] MEDS: Magnesium Chloride 64 MG TABCR PO ×2 (08:39→19:54)
[2018-09-21] MEDS: Potassium Chloride 20 MEQ TABCR 40 MEQ PO ×2 (08:39→19:54)
[2018-09-21] MEDS: Lidocaine 5% Patch 1 PATCH TP (08:40)
[2018-09-21] MEDS: Tamsulosin 0.4 MG CAPCR PO (08:40)
[2018-09-21] MEDS: Multivitamin TAB 1 TAB PO ×2 (08:40→19:54)
[2018-09-21] MEDS: Folic Acid 1 MG TAB PO (08:40)
[2018-09-21] MEDS: Calcium 600mg/Vit D 200U TAB 1 TAB PO (08:40)
--- NOTE | 2018-09-21 09:06 | PT.INTREAT ---
Date of service: 09/21/18 Time of Service: 13:30 PT Notes Inpatient Physical Therapy Treatment Note [facility] Date: [] PRECAUTIONS:Fall. Standard. SUBJECTIVE: Riddhi states that she is doing okay and hopes to go to [facility] today [facility] tomorrow. She is agreeable to a second session this afternoon. OBJECTIVE: PAIN: Continuos pain in low back more to the right side at 4/10. BED MOBILITY/TRANSFERS Rolling L/R: SBA Supine-sit: SBA Sit-supine: SBA Sit-stand: CGA with FWW Stand-sit: CGA with FWW Bed-Chair: CGA with FWW Chair-bed: CGA with FWW GAIT Assistive Device: FWW Weight bearing: FWB Assist: CGA Distance: 100 feet Deviation: Slowed alisha, minimal antalgia noted on the L side during L stance phase THEREX: Thera ex reviewed with patient per exercise flowsheet. ASSESSMENT: Observed improved activity tolerance and pain level as patient demosntrated continued ambulation despite pain report at 5/10. Rafy hopes to go to the [facility] either today or tomorrow. PLAN: Cotninue with progressing gait, ambulation and strengthening in anticipation of discharge to SNF TREATMENT CODE/TIME: [id number] 15 minutes (13:30)
[2018-09-21] MEDS: LORazepam 2 MG/ML VIAL 1 MG IVP (09:27)
--- NOTE | 2018-09-21 09:30 | PDOC.CMPRO ---
- If Service Date Differs Date of service: 09/21/18 Time of Service: 09:30 Care Management Progress Note S/O: Amanda is engaged during CM visit. She had her MRI today which shows compression fracture. Provider is contacting [facility] consult neurosurgery to determine if a TSLO brace would be recommended as part of the treatment. Riddhi will have a urology consult today r/t urinary retention. Anticipate she will be discharged on 09/22/18 at 11:00 am to [facility] providing she is medically ready. Spouse will transport. Palliative consult is in place plan will be for to meet with Riddhi in the morning prior to her discharge. A:Riddhi is a 78 year old female admitted with weakness, multiple falls at home. During her acute admission she developed abdominal pain, urinary retention and constipation. P:Amanda will be discharged to [facility] for [facility] rehab prior to returning home with supports. Amanda will be transported by private car when medically ready per provider.
--- NOTE | 2018-09-21 09:34 | CMPROGNOTE_ITS ---
- If Service Date Differs Date of service: 09/21/18 Time of Service: 09:30 Care Management Progress Note S/O: Amanda is engaged during CM visit. She had her MRI today which shows compression fracture. Provider is contacting [facility] consult neurosurgery to determine if a TSLO brace would be recommended as part of the treatment. Riddhi will have a urology consult today r/t urinary retention. Anticipate she will be discharged on 09/22/18 at 11:00 am to [facility] providing she is medically ready. Spouse will transport. Palliative consult is in place plan will be for to meet with Riddhi in the morning prior to her discharge. A:Riddhi is a 78 year old female admitted with weakness, multiple falls at home. During her acute admission she developed abdominal pain, urinary retention and constipation. P:Amanda will be discharged to [facility]hab prior to returning home with supports. Amanda will be transported by private car when medically ready per provider.
--- NOTE | 2018-09-21 09:40 | DI.MRI_ITS ---
SYMPTOM/DIAGNOSIS: URINARY RETENTION, CONSTIPATION, S/P BACK TRAUMA LUMBAR SPINE MRI: T 1, T 2 and STIR sagittal and T 1 and T 2 axial sequences were performed. The T 12 compression fracture is again noted with retropulsion of the superior endplate causing mild to moderate central canal stenosis. The conus medullaris appears intact. The remaining vertebral bodies are well maintained in height. There is mild disc bulging. No disc herniation is seen. There are facet degenerative changes at L 4-5 and L 5-S 1 but no significant neural foraminal narrowing. Bilateral renal cysts are incidentally noted. IMPRESSION: Interval worsening of T 12 compression fracture. No significant lumbar abnormality is seen.
[2018-09-21] MEDS: amLODIPine 5 MG TAB PO (13:41)
--- NOTE | 2018-09-21 14:47 | CHAPLAIN ---
Riddhi was visiting with her and granddaughter when I stopped in. She hopes to be discharged to [facility] & later today. Riddhi is Gnosticist and has been visited by the priests from [facility]
[2018-09-21] MEDS: methylPREDNISolone 4 MG TAB 6 MG PO (16:23)
--- NOTE | 2018-09-21 16:33 | UCONE_ITS ---
Date of service: 09/21/18 Time of Service: 16:20 History of Present Illness Chief Complaint: Incomplete bladder emptying Narrative: This is a 78-year-old woman who is admitted after sustaining several falls. She was found to have a T12 fracture. There was concern regarding neurologic injury when she was identified as having bowel and bladder dysfunction. She has been monitored with bladder scans. Some of her bladder scan volumes have been elevated, so I been asked to see her. For the most part, she has been able to void she denies any dysuria or gross h ematuria. She does have some urinary hesitancy. She tells me that her bowels are now soft and are moving normally. She does not have any numbness or tingling in the lower extremities. She is working with physical therapy toward more independent ambulation She recalls requiring urethral dilations as a child. She is not had any additional bladder surgeries. She has had numerous pelvic surgeries however. Review of Systems Review of Systems No fevers or chills No dyspagia Hx adrenal insufficiency Chronic SOB No chest pain or palpitations No hx ulcers, jaundice No seizures. Hx closed head injury No bleeding disorders No gout. Hx polymyalgia rheumatica PFSH Medical History Leukocytosis (Chronic) Hypokalemia (Acute) Primary osteoarthritis of left knee (Acute 07/30/15) PMR (polymyalgia rheumatica) (Chronic 01/15/16) Osteoporosis (Acute) Osteopenia (Acute 07/30/16) Obstructive sleep apnea syndrome (Acute) Memory impairment (Chronic 06/18/94) Increased body mass index (Acute) Hypothyroidism (Acute 04/05/12) Excessive sweating (Acute 06/02/16) Depressive disorder (Chronic) Insomnia (Acute) Tuberculosis (Chronic) Surgical History H/O dilation and curettage (Acute) S/P tonsillectomy (Acute) Abdominal hysterectomy (~1975) Appendectomy Bilateral salpingectomy with oophorectomy (~1975) Colonoscopy - MAC EGD - MAC (~2003) Laparoscopic, Ovarian Cystectomy Rotator Cuff Repair Family History Mother Heart disease Pneumonia Father Stroke Personal history of malignant neoplasm Heart disease Brother Alcohol abuse Cirrhosis with alcoholism Grandfather Essential hypertension Heart disease Grandmother Personal history of malignant neoplasm Stroke Grandmother Personal history of malignant neoplasm Son Alcohol abuse Social History household members: other details: 2 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 She does admit to short-term memory loss. She does not appear septic or toxic. Her vital signs are documented elsewhere in the chart. Her abdomen is soft with no mass. She is awake and alert. I reviewed the nurse's notes regarding her bladder scans. At least in the past 3 days, she has been able to void well more than 50% of her bladder volume. Results Last Vital Signs Temp 36.6 C 09/21/18 11:48 Pulse 73 09/21/18 11:48 Resp 18 09/21/18 11:48 BP 172/77 H 09/21/18 11:48 Pulse Ox 95 09/21/18 11:48 Labs : 09/21/18 06:42 09/21/18 06:42 Laboratory Results - last 24 hr 09/21/18 09/21/18 06:42 06:42 WBC 11.79 H RBC 3.91 L Hgb 10.5 L Hct 33.9 L MCV 86.7 MCH 26.9 L MCHC 31.0 L RDW 16.6 H Plt Count 419 H MPV 9.9 Immature Gran % See Differential Neutrophils % 65.0 Lymphocytes % 23.0 Atypical Lymphs % 1 Monocytes % 8.0 Eosinophils % 1.0 Basophils % 0.0 Metamyelocytes % 2.0 Absolute Neutrophils 7.66 H Absolute Lymphocytes 2.83 Absolute Monocytes 0.94 H Absolute Eosinophils 0.12 Absolute Basophils 0.00 Differential Comment Manual differential RBC Morphology See below Polychromasia Present Poikilocytosis 1+ Sodium 140 Potassium 4.2 Chloride 107 Carbon Dioxide 25.0 Anion Gap 8.0 BUN 18 Creatinine 0.87 Estimated GFR/1.73 m2 >= 60.00 Glucose 86 Calcium 8.3 L Magnesium 1.9 C-Reactive Protein 0.61 H Assessment and Plan (1) Urinary retention with incomplete bladder emptying: Current visit: Yes Status: Acute She actually is able to empty her bladder reasonably well at this point in time. If anything, she seems to have some decreased sensation of when she not needs to void. Are our usual recommendation at this point is simply timed voiding. We asked the patient to attempt to void every 3-4 hours while they are awake (even if they do not feel the need to void). This maneuver will prevent too much urine from building up in her bladder and may allow retraining of the bladder. We would expect her voiding to improve as her mobility improves. Treating constipation when it occurs it is also helpful in terms of keeping the urine flowing In any event, I find no reason that she would need an indwelling catheter at this point in time.
--- NOTE | 2018-09-21 16:52 | PT.INTREAT ---
Date of service: 09/21/18 Time of Service: 16:52 PT Notes Inpatient Physical Therapy Treatment Note [facility] Date: 09/21/18 PRECAUTIONS: Fall SUBJECTIVE: Pat states that she is feeling good today, she is eager to participate in PT. OBJECTIVE: PAIN: Patient complained of back pain with bed mobility. BED MOBILITY/TRANSFERS Supine-sit: I Sit-supine: I Sit-stand: SBA Stand-sit: SBA GAIT Assistive Device: 4WW Weight bearing: Full Assist: SBA Distance: >400' in both a.m. and p.m. THEREX: Patient completed a lower extremity strengthening program, in a standing position with UE support and SBA, as per flow sheet. Patient also completed several UE strengthening exercises in a standing position for balance retraining, with SBA. ASSESSMENT: Patient tolerated session with some complaints of back pain with bed mobility. Patient would benefit from continued strengthening for improved activity tolerance. PLAN: Continue with PTs POC TREATMENT CODE/TIME: Session 1: 30 minutes; [id number], [id number] Session 2: 10 minutes; [id number]
--- NOTE | 2018-09-21 16:55 | PTTR_ITS ---
Date of service: 09/21/18 Time of Service: 16:52 PT Notes Inpatient Physical Therapy Treatment Note [facility] Date: 09/21/18 PRECAUTIONS: Fall SUBJECTIVE: Pat states that she is feeling good today, she is eager to participate in PT. OBJECTIVE: PAIN: Patient complained of back pain with bed mobility. BED MOBILITY/TRANSFERS Supine-sit: I Sit-supine: I Sit-stand: SBA Stand-sit: SBA GAIT Assistive Device: 4WW Weight bearing: Full Assist: SBA Distance: >400' in both a.m. and p.m. THEREX: Patient completed a lower extremity strengthening program, in a standing position with UE support and SBA, as per flow sheet. Patient also completed several UE strengthening exercises in a standing position for balance retraining, with SBA. ASSESSMENT: Patient tolerated session with some complaints of back pain with bed mobility. Patient would benefit from continued strengthening for improved activity tolerance. PLAN: Continue with PTs POC TREATMENT CODE/TIME: Session 1: 30 minutes; [id number], [id number] Session 2: 10 minutes; [id number]
--- NOTE | 2018-09-21 19:13 | W.PM.PROGNOT ---
Date of Service Date of service: 09/21/18 Time of Service: 14:45 Assessment and Plan (1) Compression fracture of body of thoracic vertebra: Current visit: No Status: Acute No evidence of spinal cord impingement. Discussed with spine surgery as above - obtaining a DEWEY brace. (2) Adrenal insufficiency: Current visit: No Status: Acute Continue medrol taper. The expectation is that the patient will be transitioned to 10 mg of medrol daily and will follow up with her engineer technical staff for further slow tapering. (3) Urinary retention with incomplete bladder emptying: Current visit: Yes Status: Acute unrelated to spinal cord injury. Consulting urology. Continue PVR's. (4) Leukocytosis (leucocytosis): Current visit: No Status: Chronic Resolved; in setting of stress dose steroids and acute injury. (5) Palliative care patient: Current visit: No Status: Chronic Seen by Dr. Connor (6) PMR (polymyalgia rheumatica): Current visit: No Status: Chronic See above (7) Pain management: Current visit: No Status: Acute pain management secondary to T12 compression fracture. see above (8) Anemia: Current visit: No Status: Acute H&H stable. Ferritin and B12 levels not consistent with deficiency of either. Likely anemia of chronic disease. Qualifiers: Anemia type: iron deficiency Iron deficiency anemia type: other iron deficiency Vitamin B12 deficiency anemia type: Folate deficiency anemia type: Bone marrow failure anemia type: Hemolytic anemia type: Other causes of anemia: Chronic kidney disease stage: Qualified Code(s): D50.8 - Other iron deficiency anemias (9) S/P exploratory laparotomy: Current visit: No Status: Chronic Doing well off abx. No evidence of acute intraabdominal process. 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 No further workup. (11) Ambulatory dysfunction: Current visit: Yes Status: Acute Continue working with PT/OT. Will be going to SNF on discharge (12) Discharge planning issues: Current visit: Yes Status: Acute DNR/DNI Planned for discharge to SNF tomorrow (13) DVT prophylaxis: Current visit: Yes Status: Acute Lovenox Subjective Interval history since last seen: Patient states that she has had a very long history of urinary retention and that she has a shy bladder. She denies dizziness, chest pain, shortness of breath, nausea, vomiting. She had a BM earlier today. She states that without the ultram, her pain is 9/10. With it, it's 3/10. I have forwarded the images and discussed the case with Dr eJsus Hester of spine surgery at [facility], who recommends a DEWEY brace prn for pain relief for the patient. There is no surgical intervention recommended at this time, but if her pain is functionally disabling and does not improve in 5-6 weeks, then she could be considered for vertebroplasty by IR at [facility]. Exam Narrative Exam Narrative: General: very pleasant elderly female, comfortable in bed HEENT: EOMI, MMM Heart: RRR, no m/r/g Lungs: CTAB GI: abdomen is soft; incision well healed; nontender, nondistended Extremities: nonpitting edema BLE's, wearing KAMRYN stockings, +1 pedal pulses B Objective Objective Clinical Data: Abnormal lab results 09/21/18 09/21/18 Range/Units 06:42 06:42 WBC 11.79 H (4.4-10.8) k/cumm RBC 3.91 L (4.00-5.20) m/cumm Hgb 10.5 L (12.0-15.5) g/dL Hct 33.9 L (36.0-46.0) % MCH 26.9 L (27.0-33.0) pg MCHC 31.0 L (32.0-36.0) g/dL RDW 16.6 H (11.7-14.6) % Plt Count 419 H (130-400) x1000/uL Absolute Neutrophils 7.66 H (1.2-6.7) k/cumm Absolute Monocytes 0.94 H (0.11-0.7) k/cumm Calcium 8.3 L (8.5-10.1) mg/dL C-Reactive Protein 0.61 H (0.0-0.3) mg/dL Vital Signs Temperature 36.7 C 09/21/18 16:59 Temperature Source Tympanic 09/21/18 16:59 Pulse 95 H 09/21/18 16:59 Pulse Rhythm Regular 09/21/18 08:14 Pulse 83 09/11/18 15:40 Respiratory Rate 09/21/18 16:59 Respiratory Effort Non-Labored 09/21/18 08:14 Respiratory Depth Normal 09/21/18 08:14 Respiratory Pattern Normal 09/21/18 08:14 Blood Pressure 129/79 09/21/18 16:59 Blood Pressure Mean 79 09/11/18 15:01 Blood Pressure Position Supine 09/11/18 11:35 Pulse Oximetry 97 09/21/18 16:59 Oxygen Delivery Method Room Air 09/21/18 16:59 Oxygen Flow Rate 0 09/21/18 16:59 Pain Level 6 09/21/18 16:22 Comment 09/20/18 04:00 Intake & Output 09/20/18 09/21/18 09/21/18 23:59 11:59 23:59 Intake Total 620 / 1370 1225 / 1765 540 / 1765 Output Total 1682 / 3082 2500 / 3420 920 / 3420 Balance -1062 / -1712 -1275 / -1655 -380 / -1655 Weight 77.4 kg Intake: IV 1100 / 1100 Oral 600 / 1350 125 / 665 540 / 665 Output: Urine 1483 / 2883 2500 / 3400 900 / 3400 Post Void Residual 199 / 199 Other: Urine Color Yellow Yellow Urine Appearance Clear Clear Urine Odor Normal Normal Comment 120,128,0 Unable to bladder scan . Pt refused. Tisha notified Stool Size Small Voiding Methods Toilet Toilet Laboratory Results WBC 11.79 k/cumm (4.4-10.8) H 09/21/18 06:42 RBC 3.91 m/cumm (4.00-5.20) L 09/21/18 06:42 Hgb 10.5 g/dL (12.0-15.5) L 09/21/18 06:42 Hct 33.9 % (36.0-46.0) L 09/21/18 06:42 MCV 86.7 fL (80-95) 09/21/18 06:42 MCH 26.9 pg (27.0-33.0) L 09/21/18 06:42 MCHC 31.0 g/dL (32.0-36.0) L 09/21/18 06:42 RDW 16.6 % (11.7-14.6) H 09/21/18 06:42 Plt Count 419 x1000/uL (130-400) H 09/21/18 06:42 MPV 9.9 fL (8.0-11.0) 09/21/18 06:42 Immature Gran % See Differential 09/21/18 06:42 Neutrophils % 65.0 09/21/18 06:42 Band Neutrophils % 0.0 % 09/20/18 09:52 Lymphocytes % 23.0 09/21/18 06:42 Atypical Lymphs % 1 09/21/18 06:42 Monocytes % 8.0 09/21/18 06:42 Eosinophils % 1.0 09/21/18 06:42 Basophils % 0.0 09/21/18 06:42 Metamyelocytes % 2.0 % 09/21/18 06:42 Myelocytes % 1.0 % 09/20/18 09:52 Promyelocytes % 0 % 09/20/18 09:52 Absolute Neutrophils 7.66 k/cumm (1.2-6.7) H 09/21/18 06:42 Absolute Lymphocytes 2.83 k/cumm (1.2-3.4) 09/21/18 06:42 Absolute Monocytes 0.94 k/cumm (0.11-0.7) H 09/21/18 06:42 Absolute Eosinophils 0.12 k/cumm (0.0-0.7) 09/21/18 06:42 Absolute Basophils 0.00 k/cumm (0.0-0.2) 09/21/18 06:42 Differential Comment Manual differential 09/21/18 06:42 RBC Morphology See below 09/21/18 06:42 Polychromasia Present 09/21/18 06:42 Hypochromasia 1+ 09/16/18 06:20 Poikilocytosis 1+ 09/21/18 06:42 Basophilic Stippling Present 09/15/18 06:10 Anisocytosis 1+ 09/15/18 06:10 Sodium 140 mmol/L (136-145) 09/21/18 06:42 Potassium 4.2 mmol/L (3.5-5.1) 09/21/18 06:42 Chloride 107 mmol/L (98-107) 09/21/18 06:42 Carbon Dioxide 25.0 mmol/L (21.0-32.0) 09/21/18 06:42 Anion Gap 8.0 mmol/L (3-11) 09/21/18 06:42 BUN 18 mg/dL (7-18) 09/21/18 06:42 Creatinine 0.87 mg/dL (0.55-1.02) 09/21/18 06:42 Estimated GFR/1.73 m2 >= 60.00 (mL/min/1.73m2) 09/21/18 06:42 Glucose 86 mg/dL (70-100) 09/21/18 06:42 Calcium 8.3 mg/dL (8.5-10.1) L 09/21/18 06:42 Magnesium 1.9 mg/dL (1.8-2.4) 09/21/18 06:42 Iron 31 ug/dL (50-175) L 09/18/18 16:26 Ferritin 483 ng/mL (8-388) H 09/18/18 16:26 Total Bilirubin 0.4 mg/dL (0.2-1.0) 09/11/18 12:30 AST 23 U/L (15-37) 09/11/18 12:30 ALT 26 U/L (12-78) 09/11/18 12:30 Alkaline Phosphatase 83 U/L (46-116) 09/11/18 12:30 Troponin I < 0.02 ng/mL (0.00-0.06) 09/11/18 12:30 C-Reactive Protein 0.61 mg/dL (0.0-0.3) H 09/21/18 06:42 Total Protein 7.2 g/dL (6.4-8.2) 09/11/18 12:30 Albumin 2.7 g/dL (3.4-5.0) L 09/11/18 12:30 Vitamin B12 615 pg/mL (193-986) 09/18/18 16:26 Urine Color Yellow (Yellow) 09/16/18 13:05 Urine Clarity Clear 09/16/18 13:05 Urine pH 8.5 (5-8) H 09/16/18 13:05 Ur Specific [place] 1.015 (1.005-1.025) 09/16/18 13:05 Urine Protein Negative mg/dL (Negative) 09/16/18 13:05 Urine Ketones Negative mg/dL (Negative) 09/16/18 13:05 Urine Blood Trace-intact (Negative) H 09/16/18 13:05 Urine Nitrite Negative (Negative) 09/16/18 13:05 Urine Bilirubin Negative (Negative) 09/16/18 13:05 Urine Urobilinogen 0.2 EU/dL (Up TO 0.2) 09/16/18 13:05 Ur Leukocyte Esterase Negative (Negative) 09/16/18 13:05 Urine RBC 5-10 (0-2) H 09/16/18 13:05 Urine WBC 0-2 HPF (0-5) 09/16/18 13:05 Ur Epithelial Cells Rare HPF (Negative) 09/16/18 13:05 Urine Crystals Negative HPF (Negative) 09/16/18 13:05 Urine Bacteria Rare HPF (Negative) 09/16/18 13:05 Urine Casts Negative LPF (Negative) 09/16/18 13:05 Urine Mucus Negative (Negative) 09/16/18 13:05 Ur Culture Indicated? No 09/16/18 13:05 Urine Glucose Negative mg/dL (Negative) 09/16/18 13:05 MRI thoracic spine: Interval increase in compression of the T 12 vertebral body with posterior retropulsion causing mild to moderate central canal stenosis. MRI lumbar spine: Interval worsening of T 12 compression fracture. No significant lumbar abnormality is seen.
[2018-09-21] MEDS: Mirtazapine 15 MG TAB 7.5 MG PO (23:07)
[2018-09-21] MEDS: Melatonin 3 MG TAB 6 MG PO (23:07)
[2018-09-21] MEDS: Zolpidem 5 MG TAB PO (23:07)
[2018-09-21] MEDS: Patch Removal 1 EACH TP (23:08)
[2018-09-22] MEDS: traMADol 50 MG TAB PO ×3 (00:17→12:20)
[2018-09-22] MEDS: Acetaminophen 325 MG TAB 650 MG PO ×2 (01:30→08:48)
[2018-09-22] MEDS: Levothyroxine 125 MCG TAB PO (06:12)
[2018-09-22 07:01] LABS: Abs Immature Grans 0.26 k/cumm (0.0-0.09); Absolute Lymphocyte Count 3.04 k/cumm (1.2-3.4); Absolute Monocyte Count 1.74 k/cumm (0.11-0.7); Basophils % 0.2; Eosinophils % 0.9; HCT 34.1 % (36.0-46.0); HGB 10.6 g/dL (12.0-15.5); Immature Grans % 1.5; Mean Corp. HGB Concentration 31.1 g/dL (32.0-36.0); Mean Corpuscular Volume 86.8 fL (80-95); Mean Platelet Volume 9.7 fL (8.0-11.0); Monocytes % 10.3; Platelet Count 426 x1000/uL (130-400); RBC 3.93 m/cumm (4.00-5.20); RBC Distribution Width 16.8 % (11.7-14.6); White Blood Cell Count 16.87 k/cumm (4.4-10.8)
[2018-09-22 07:07] LABS: Absolute Basophil Count 0.03 k/cumm (0.0-0.2); Absolute Eosinophil Count 0.15 k/cumm (0.0-0.7); Absolute Neutrophil Count 11.66 k/cumm (1.2-6.7)
[2018-09-22 07:09] LABS: Anion Gap 8.2 mmol/L (3-11); BUN 16 mg/dL (7-18); CO2 26.8 mmol/L (21.0-32.0); CREATININE 0.81 mg/dL (0.55-1.02); Calcium 8.5 mg/dL (8.5-10.1); Chloride 105 mmol/L (98-107); Glucose 85 mg/dL (70-100); Potassium 4.2 mmol/L (3.5-5.1); Sodium 140 mmol/L (136-145)
[2018-09-22 07:30] VITALS: BP 151/68; PULSE 66; RESP 18; TEMP 36.4; O2SAT 97
[2018-09-22 07:33] LABS: Diff Comment Diff Reviewed; Neutrophils % 69.1; Poikilocytes 1+; Polychromasia Present
--- NOTE | 2018-09-22 08:38 | PDOC.CMPRO ---
- If Service Date Differs Date of service: 09/22/18 Time of Service: 08:38 Care Management Progress Note S/O: A:Riddhi is a 78 year old female admitted after fall at home and compression fracture P:Riddhi will be [facility] to [facility] when medically ready per provider. Currently waiting on a DEWEY brace through [facility]. Spouse will transfer when she is ready for discharge.
[2018-09-22] MEDS: Pantoprazole 40 MG VIAL IVP (08:46)
[2018-09-22] MEDS: Normal Saline Flush 10 ML SYR IVP (08:47)
[2018-09-22] MEDS: methylPREDNISolone 4 MG TAB 10 MG PO (08:47)
[2018-09-22] MEDS: buPROPion-XL 150 MG TABCR 450 MG PO (08:48)
[2018-09-22] MEDS: Potassium Chloride 20 MEQ TABCR 40 MEQ PO (08:48)
[2018-09-22] MEDS: amLODIPine 5 MG TAB PO (08:48)
[2018-09-22] MEDS: Multivitamin TAB 1 TAB PO (08:48)
[2018-09-22] MEDS: Calcium 600mg/Vit D 200U TAB 1 TAB PO (08:49)
[2018-09-22] MEDS: Furosemide 20 MG TAB 40 MG PO (08:49)
[2018-09-22] MEDS: Folic Acid 1 MG TAB PO (08:49)
[2018-09-22] MEDS: Tamsulosin 0.4 MG CAPCR PO (08:49)
[2018-09-22] MEDS: Lidocaine 5% Patch 1 PATCH TP (08:51)
[2018-09-22] MEDS: Magnesium Chloride 64 MG TABCR PO (08:51)
--- NOTE | 2018-09-22 09:53 | PDOC.CMDIS ---
- If Service Date Differs Date of service: 09/22/18 Time of Service: 09:54 LACE Index Scoring Tool - Questions: Length of Stay (in days): 7 - 13 Acuity (Admit via E.D.?): Yes Comorbidities: Liver or Renal Disease E.D. Visits: 5 - Answers: Total Score: 17 Risk of Readmission: High Risk Care Management Discharge Reason for Hospitalization: Compression fracture Discharge Plan: Riddhi will be [facility] to [facility] today. Brace will be ordered through [facility] and sent over the [facility] when it arrives. [facility] ana maría provide tranportation via wheelchair van. Riddhi feels she is ready for discharge. CM faxed [facility] PO and requested delivery of the brace to [facility]. Patient/Family Education Needs: Discharge education, limitations and follow up plan of care including ask me three and self management. CM spoke with admissions at [facility] and reviewed admission including current treatment plan. Services Needed at Discharge: [facility] Facility, Transportation
--- NOTE | 2018-09-22 10:08 | CMDISCH_ITS ---
- If Service Date Differs Date of service: 09/22/18 Time of Service: 09:54 LACE Index Scoring Tool - Questions: Length of Stay (in days): 7 - 13 Acuity (Admit via E.D.?): Yes Comorbidities: Liver or Renal Disease E.D. Visits: 5 - Answers: Total Score: 17 Risk of Readmission: High Risk Care Management Discharge Reason for Hospitalization: Compression fracture Discharge Plan: Riddhi will be [facility] to [facility] today. Brace will be ordered through [facility] and sent over the [facility] when it arrives. [facility] provide tranportation via wheelchair van. Riddhi feels she is ready for discharge. CM faxed [facility] PO and requested delivery of the brace to [facility]. Patient/Family Education Needs: Discharge education, limitations and follow up plan of care including ask me three and self management. CM spoke with admissions at [facility] and reviewed admission including current treatment plan. Services Needed at Discharge: [facility] Facility, Transportation
[2018-09-22 10:20] VITALS: O2SAT 97
[2018-09-22 12:20] VITALS: BP 158/79; PULSE 87; RESP 18; TEMP 36.7; O2SAT 97
--- NOTE | 2018-09-22 12:34 | W.PM.DS.N ---
Date of service: 09/22/18 Time of Service: 12:34 DS: Diagnosis Discharge Diagnosis (1) Compression fracture of body of thoracic vertebra: Status: Acute (2) Adrenal insufficiency: Status: Acute (3) Urinary retention with incomplete bladder emptying: Status: Acute (4) Leukocytosis (leucocytosis): Status: Chronic (5) Palliative care patient: Status: Chronic (6) PMR (polymyalgia rheumatica): Status: Chronic (7) Pain management: Status: Acute (8) Anemia: Status: Acute (9) S/P exploratory laparotomy: Status: Chronic (10) Supraclavicular mass: Status: Chronic (11) Ambulatory dysfunction: Status: Acute Discharge Plan Disposition Patient Disposition: SNF (LEVEL 1) [facility] Condition: Stable Discharge Details Reason For Visit: COMPRESSION FRACTURE Admit Date/Time: 09/11/18 15:57 Admit Provider: Mary Roman Attending Provider: Mary Roman Primary Care Provider: Liz Granado [facility] Hospital Course: Ms Manuel is a 78 year old female with history of adrenal insufficiency due to steroid dependency for PMR, as well as history of recent partial colectomy for perforation during colonoscopy, latent TB on isoniazid therapy and RIZWAN, admitted o [facility] on 09/19/18 with weakness and falls in setting of acute on chronic adrenal insuffiency as well as a resultant T12 vertebral compression fracture. She was found to have urinary retention and was constipated, but had preserved rectal tone and was not thought to have cauda equina. She was admitted for treatment of adrenal insufficiency, pain control, and physical therapy. Pain control was achieved with ultram 50 mg PO q6hrs and tylenol. She is able to ambulate with physical therapy. She was seen by urology in consultation and recommended to have timed voiding on discharge (every 3-4 hours) and for her to remain on a bowel regimen. Her MRI's were evaluated by [place]surgery [place] [facility] (Dr Jesus Hester) who recommended a DEWEY brace for pain control only (as in prn). It is not expected to stabilize her fracture, but should help with pain. If the patient continues to have significant amount of pain at 4-6 weeks post fracture and it is functionally limiting and not improving, she could have vertebroplasty done by IR at [facility]. At this time, the patient is medically stable for discharge to a SNF for continued medical therapy. 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 Please, follow up her vitamin D level, as she may require higher doses of vitamin D and calcium. Home Meds and New Rx's Prescriptions: New methylprednisolone [Medrol] 4 mg Tablet 10 mg PO QAM Qty: 0 RF: 0 methylprednisolone [Medrol] 4 mg Tablet See Rx Instructions .ROUTE .COMPLEX Qty: 7 RF: 0 amlodipine 5 mg Tablet 5 mg PO DAILY Qty: 0 RF: 0 lidocaine [Lidoderm] 5 % Adhesive Patch,Medicated 1 patch topical DAILY Qty: 0 RF: 0 docusate sodium [Colace] 100 mg Capsule 100 mg PO BID Qty: 0 RF: 0 melatonin 3 mg Tablet Extended Release 6 mg PO HS Qty: 0 RF: 0 magnesium chloride [Mag 64] 64 mg Tablet,Delayed Release (Dr/Ec) 64 mg PO BID Qty: 0 RF: 0 tramadol 50 mg Tablet 50 mg PO Q6H PRN PRNQty: 0 RF: 0 potassium chloride [Klor-Con M20] 20 mEq Tablet,Er Particles/Crystals 40 meq PO BID Qty: 0 RF: 0 zolpidem 5 mg Tablet 5 mg PO HS Qty: 0 RF: 0 Mouthwash [Biotene Mouthwash] Mucous Membrane BID PRN PRNQty: 0 RF: 0 Continued isoniazid 300 mg tablet 300 mg PO DAILY RF: 0 calcium carbonate-vitamin D3 [Caltrate with Vitamin D3] 600 mg(1,500mg) -800 unit tablet 1 tab PO DAILY RF: 0 bupropion HCl [Wellbutrin XL] 150 mg tablet extended release 24 hr 150 mg PO QAM RF: 0 pyridoxine (vitamin B6) 25 mg tablet 25 mg PO DAILY RF: 0 multivitamin [One Daily Multivitamin] tablet 1 tab PO BID RF: 0 furosemide 20 mg tablet 40 mg PO DAILY RF: 0 ferrous gluconate 324 mg (38 mg iron) tablet 324 mg PO DAILY PRN (Reason: iron deficient anemia) Qty: 90 RF: 2 aspirin [Aspirin Low Dose] 81 MG tablet,delayed release (DR/EC) 81 mg PO DAILY RF: 0 folic acid 1 MG tablet 1 mg PO DAILY Qty: 90 RF: 4 bupropion HCl 300 mg tablet extended release 24 hr 300 mg PO QAM Qty: 90 RF: 2 levothyroxine 125 mcg tablet 125 mcg PO DAILY Qty: 30 RF: 3 mirtazapine 7.5 mg tablet 7.5 mg PO HS Qty: 90 RF: 2 clotrimazole 1 % Ointment 45 g topical BID RF: 0 polyethylene glycol 3350 [Miralax] 17 gram Powder In Packet 1 packet PO DAILY RF: 0 nystatin 100,000 unit/gram Cream 60 g topical DAILY RF: 0 Discontinued zolpidem 12.5 mg tablet,ext release multiphase 12.5 mg PO HS Qty: 30 RF: 0 oxycodone 5 mg Capsule 5 mg PO Q6H PRN PRNRF: 0 methylprednisolone 4 mg tablet 4 mg PO DAILY RF: 0 ibuprofen [IBU] 600 mg Tablet 600 mg PO Q6H PRN PRN (Reason: Pain) Qty: 30 RF: 0 potassium chloride 20 mEq tablet extended release 40 meq PO DAILY Qty: 14 RF: 0 No Action levothyroxine 125 mcg capsule 125 mcg PO DAILY Qty: 30 RF: 3 Discharge Instructions Instructions: Vertebral Compression Fracture (DC), Chronic Urinary 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 Follow up with IR at [facility] prn if your back pain does not get better at 4-6 weeks. Stand Alone Forms: Nursing Discharge Form Referrals: Renny Ladd MD. [facility] [Other] - 09/28/18 2:00 pm () Activity:: Activity as Tolerated Equipment/Supplies:: Walker Diet:: Low Sodium Discharge Orders Discharge Orders: Discharge Order (Routine); Ordered 09/22/18 Ordered By: Mena Lugo Exam Narrative Exam Narrative: General: very pleasant elderly female, comfortable in bed HEENT: EOMI, MMM Heart: RRR, no m/r/g Lungs: CTAB GI: abdomen is soft; incision well healed; nontender, nondistended Extremities: nonpitting edema BLE's, wearing KAMRYN stockings, +1 pedal pulses B DS: Data Vitals/I&O Vitals and I&O: Vital Signs Temperature 36.4 C L 09/22/18 07:30 Temperature Source Tympanic 09/22/18 07:30 Pulse 66 09/22/18 07:30 Pulse Rhythm Regular 09/22/18 08:41 Pulse 83 09/11/18 15:40 Respiratory Rate 18 09/22/18 07:30 Respiratory Effort Non-Labored 09/22/18 08:41 Respiratory Depth Normal 09/22/18 08:41 Respiratory Pattern Normal 09/22/18 08:41 Blood Pressure 151/68 H 09/22/18 07:30 Blood Pressure Mean 79 09/11/18 15:01 Blood Pressure Position Supine 09/11/18 11:35 Pulse Oximetry 97 09/22/18 07:30 Oxygen Delivery Method Room Air 09/22/18 07:30 Oxygen Flow Rate 0 09/22/18 07:30 Pain Level 5 09/22/18 12:20 Comment 09/22/18 07:30 Intake & Output 09/21/18 09/22/18 09/22/18 23:59 11:59 23:59 Intake Total 780 / 2005 240 / 240 Output Total 2570 / 5070 375 / 375 Balance -1790 / -3065 -135 / -135 Weight 76.1 kg Intake: IV Oral 780 / 905 220 / 220 Output: Urine 2550 / 5050 375 / 375 Post Void Residual Other: Urine Color Yellow Yellow Straw Urine Appearance Clear Clear Urine Odor Normal None Voiding Methods Toilet Toilet Completed studies during hospitalization [Text1]: CT head 09/11/18: No acute abnormality. CT c-spine: Degenerative changes. Question of a right retroclavicular mass versus confluence of vessels. A contrast enhanced exam could be performed for further evaluation. CT thoracic spine 09/11/18: Mild compression of the anterior superior endplate of T12. CT lumbar spine 09/11/18: Degenerative changes. No acute abnormality. XR abdoen 09/15/18: No definite evidence of pneumoperitoneum. CT neck with contrast 09/15/18: 3.1 by 2.9 cm. enhancing mass in the right supraclavicular region directly between the subclavian vein and artery. The findings could represent a vascular malformation or vascular neoplasm. An ultrasound could be considered for further evaluation. CT abdomen and pelvis 09/15/18: Inflammation around the sigmoid without evidence of abscess. A large quantity of stool is seen. CXR : No change in T 12 compression fracture. No acute abnormality in the chest. US neck 09/16/18: Abnormality seen in the supraclavicular region by CT corresponds to a venous outpouching at the junction of the brachiocephalic and subclavian veins. MRI thoracic spine 09/20/18: Interval increase in compression of the T 12 vertebral body with posterior retropulsion causing mild to moderate central canal stenosis. MRI lumbar spine 09/20/18: Interval worsening of T 12 compression fracture. No significant lumbar abnormality is seen. Labs on day of discharge: Labs from last 24 hours 09/22/18 09/22/18 09/22/18 06:44 06:44 06:44 WBC 16.87 H D RBC 3.93 L Hgb 10.6 L Hct 34.1 L MCV 86.8 MCH 27.0 MCHC 31.1 L RDW 16.8 H Plt Count 426 H MPV 9.7 Immature Gran % 1.5 Neutrophils % 69.1 Lymphocytes % 18.0 Monocytes % 10.3 Eosinophils % 0.9 Basophils % 0.2 Absolute Neutrophils 11.66 H Absolute Lymphocytes 3.04 Absolute Monocytes 1.74 H Absolute Eosinophils 0.15 Absolute Basophils 0.03 Differential Comment Diff reviewed RBC Morphology See below Polychromasia Present Poikilocytosis 1+ Sodium 140 Potassium 4.2 Chloride 105 Carbon Dioxide 26.8 Anion Gap 8.2 BUN 16 Creatinine 0.81 Estimated GFR/1.73 m2 >= 60.00 Glucose 85 Calcium 8.5 Magnesium 2.0 25-OH Vitamin D Total Pending [facility] Medical History Leukocytosis (Chronic) Hypokalemia (Acute) Primary osteoarthritis of left knee (Acute 07/30/15) PMR (polymyalgia rheumatica) (Chronic 01/15/16) Osteoporosis (Acute) Osteopenia (Acute 07/30/16) Obstructive sleep apnea syndrome (Acute) Memory impairment (Chronic 06/18/94) Increased body mass index (Acute) Hypothyroidism (Acute 04/05/12) Excessive sweating (Acute 06/02/16) Depressive disorder (Chronic) Insomnia (Acute) Tuberculosis (Chronic) Surgical History H/O dilation and curettage (Acute) S/P tonsillectomy (Acute) Abdominal hysterectomy (~1975) Appendectomy Bilateral salpingectomy with oophorectomy (~1975) Colonoscopy - MAC EGD - MAC (~2003) Laparoscopic, Ovarian Cystectomy Rotator Cuff Repair Family History Mother Heart disease Pneumonia Father Stroke Personal history of malignant neoplasm Heart disease Brother Alcohol abuse Cirrhosis with alcoholism Grandfather Essential hypertension Heart disease Grandmother Personal history of malignant neoplasm Stroke Grandmother Personal history of malignant neoplasm Son Alcohol abuse Social History household members: other details: 2 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
--- NOTE | 2018-09-22 12:45 | DSE_ITS ---
Date of service: 09/22/18 Time of Service: 12:34 DS: Diagnosis Discharge Diagnosis (1) Compression fracture of body of thoracic vertebra: Status: Acute (2) Adrenal insufficiency: Status: Acute (3) Urinary retention with incomplete bladder emptying: Status: Acute (4) Leukocytosis (leucocytosis): Status: Chronic (5) Palliative care patient: Status: Chronic (6) PMR (polymyalgia rheumatica): Status: Chronic (7) Pain management: Status: Acute (8) Anemia: Status: Acute (9) S/P exploratory laparotomy: Status: Chronic (10) Supraclavicular mass: Status: Chronic (11) Ambulatory dysfunction: Status: Acute Discharge Plan Disposition Patient Disposition: SNF (LEVEL 1) [facility] Condition: Stable Discharge Details Reason For Visit: COMPRESSION FRACTURE Admit Date/Time: 09/11/18 15:57 Admit Provider: Mary Roman Attending Provider: Mary Roman Primary Care Provider: Liz Granado [facility] Hospital Course: Ms Manuel is a 78 year old female with history of adrenal insufficiency due to steroid dependency for PMR, as well as history of recent partial colectomy for perforation during colonoscopy, latent TB on isoniazid therapy and RIZWAN, admitted o [facility] on 09/19/18 with weakness and falls in setting of acute on chronic adrenal insuffiency as well as a resultant T12 vertebral compression fracture. She was found to have urinary retention and was constipated, but had preserved rectal tone and was not thought to have cauda equina. She was admitted for treatment of adrenal insufficiency, pain control, and physical therapy. Pain control was achieved with ultram 50 mg PO q6hrs and tylenol. She is able to ambulate with physical therapy. She was seen by urology in consultation and recommended to have timed voiding on discharge (every 3-4 hours) and for her to remain on a bowel regimen. Her MRI's were evaluated by neurosurgery at [facility] (Dr Jesus Hester) who recommended a DEWEY brace for pain control only (as in prn). It is not expected to stabilize her fracture, but should help with pain. If the patient continues to have significant amount of pain at 4-6 weeks post fracture and it is fu nctionally limiting and not improving, she could have vertebroplasty done by IR at [facility]. At this time, the patient is medically stable for discharge to a SNF for continued medical therapy. 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 Please, follow up her vitamin D level, as she may require higher doses of vitamin D and calcium. Home Meds and New Rx's Prescriptions: New methylprednisolone [Medrol] 4 mg Tablet 10 mg PO QAM Qty: 0 RF: 0 methylprednisolone [Medrol] 4 mg Tablet See Rx Instructions .ROUTE .COMPLEX Qty: 7 RF: 0 amlodipine 5 mg Tablet 5 mg PO DAILY Qty: 0 RF: 0 lidocaine [Lidoderm] 5 % Adhesive Patch,Medicated 1 patch topical DAILY Qty: 0 RF: 0 docusate sodium [Colace] 100 mg Capsule 100 mg PO BID Qty: 0 RF: 0 melatonin 3 mg Tablet Extended Release 6 mg PO HS Qty: 0 RF: 0 magnesium chloride [Mag 64] 64 mg Tablet,Delayed Release (Dr/Ec) 64 mg PO BID Qty: 0 RF: 0 tramadol 50 mg Tablet 50 mg PO Q6H PRN PRNQty: 0 RF: 0 potassium chloride [Klor-Con M20] 20 mEq Tablet,Er Particles/Crystals 40 meq PO BID Qty: 0 RF: 0 zolpidem 5 mg Tablet 5 mg PO HS Qty: 0 RF: 0 Mouthwash [Biotene Mouthwash] Mucous Membrane BID PRN PRNQty: 0 RF: 0 Continued isoniazid 300 mg tablet 300 mg PO DAILY RF: 0 calcium carbonate-vitamin D3 [Caltrate with Vitamin D3] 600 mg(1,500mg) -800 unit tablet 1 tab PO DAILY RF: 0 bupropion HCl [Wellbutrin XL] 150 mg tablet extended release 24 hr 150 mg PO QAM RF: 0 pyridoxine (vitamin B6) 25 mg tablet 25 mg PO DAILY RF: 0 multivitamin [One Daily Multivitamin] tablet 1 tab PO BID RF: 0 furosemide 20 mg tablet 40 mg PO DAILY RF: 0 ferrous gluconate 324 mg (38 mg iron) tablet 324 mg PO DAILY PRN (Reason: iron deficient anemia) Qty: 90 RF: 2 aspirin [Aspirin Low Dose] 81 MG tablet,delayed release (DR/EC) 81 mg PO DAILY RF: 0 folic acid 1 MG tablet 1 mg PO DAILY Qty: 90 RF: 4 bupropion HCl 300 mg tablet extended release 24 hr 300 mg PO QAM Qty: 90 RF: 2 levothyroxine 125 mcg tablet 125 mcg PO DAILY Qty: 30 RF: 3 mirtazapine 7.5 mg tablet 7.5 mg PO HS Qty: 90 RF: 2 clotrimazole 1 % Ointment 45 g topical BID RF: 0 polyethylene glycol 3350 [Miralax] 17 gram Powder In Packet 1 packet PO DAILY RF: 0 nystatin 100,000 unit/gram Cream 60 g topical DAILY RF: 0 Discontinued zolpidem 12.5 mg tablet,ext release multiphase 12.5 mg PO HS Qty: 30 RF: 0 oxycodone 5 mg Capsule 5 mg PO Q6H PRN PRNRF: 0 methylprednisolone 4 mg tablet 4 mg PO DAILY RF: 0 ibuprofen [IBU] 600 mg Tablet 600 mg PO Q6H PRN PRN (Reason: Pain) Qty: 30 RF: 0 potassium chloride 20 mEq tablet extended release 40 meq PO DAILY Qty: 14 RF: 0 No Action levothyroxine 125 mcg capsule 125 mcg PO DAILY Qty: 30 RF: 3 Discharge Instructions Instructions: Vertebral Compression Fracture (DC), Chronic Urinary 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 Follow up with IR at [facility] prn if your back pain does not get better at 4-6 weeks. Stand Alone Forms: Nursing Discharge Form Referrals: Renny Ladd [place]. [facility] [place] - 09/28/18 2:00 pm () Activity:: Activity as Tolerated Equipment/Supplies:: Walker Diet:: Low Sodium Discharge Orders Discharge Orders: Discharge Order (Routine); Ordered 09/22/18 Ordered By: Mena Lugo Exam Narrative Exam Narrative: General: very pleasant elderly female, comfortable in bed HEENT: EOMI, MMM Heart: RRR, no m/r/g Lungs: CTAB GI: abdomen is soft; incision well healed; nontender, nondistended Extremities: nonpitting edema BLE's, wearing KAMRYN stockings, +1 pedal pulses B DS: Data Vitals/I&O Vitals and I&O: Vital Signs Temperature 36.4 C L 09/22/18 07:30 Temperature Source Tympanic 09/22/18 07:30 Pulse 66 09/22/18 07:30 Pulse Rhythm Regular 09/22/18 08:41 Pulse 83 09/11/18 15:40 Respiratory Rate 18 09/22/18 07:30 Respiratory Effort Non-Labored 09/22/18 08:41 Respiratory Depth Normal 09/22/18 08:41 Respiratory Pattern Normal 09/22/18 08:41 Blood Pressure 151/68 H 09/22/18 07:30 Blood Pressure Mean 79 09/11/18 15:01 Blood Pressure Position Supine 09/11/18 11:35 Pulse Oximetry 97 09/22/18 07:30 Oxygen Delivery Method Room Air 09/22/18 07:30 Oxygen Flow Rate 0 09/22/18 07:30 Pain Level 5 09/22/18 12:20 Comment 09/22/18 07:30 Intake & Output 09/21/18 09/22/18 09/22/18 23:59 11:59 23:59 Intake Total 780 / 2005 240 / 240 Output Total 2570 / 5070 375 / 375 Balance -1790 / -3065 -135 / -135 Weight 76.1 kg Intake: IV Oral 780 / 905 220 / 220 Output: Urine 2550 / 5050 375 / 375 Post Void Residual Other: Urine Color Yellow Yellow Straw Urine Appearance Clear Clear Urine Odor Normal None Voiding Methods Toilet Toilet Completed studies during hospitalization [Text1]: CT head 09/11/18: No acute abnormality. CT c-spine: Degenerative changes. Question of a right retroclavicular mass versus confluence of vessels. A contrast enhanced exam could be performed for f urther evaluation. CT thoracic spine 09/11/18: Mild compression of the anterior superior endplate of T12. CT lumbar spine 09/11/18: Degenerative changes. No acute abnormality. XR abdoen 09/15/18: No definite evidence of pneumoperitoneum. CT neck with contrast 09/15/18: 3.1 by 2.9 cm. enhancing mass in the right supraclavicular region directly between the subclavian vein and artery. The findings could represent a vascular malformation or vascular neoplasm. An ultrasound could be considered for further evaluation. CT abdomen and pelvis 09/15/18: Inflammation around the sigmoid without burton dence of abscess. A large quantity of stool is seen. CXR : No change in T 12 compression fracture. No acute abnormality in the chest. US neck 09/16/18: Abnormality seen in the supraclavicular region by CT corresponds to a venous outpouching at the junction of the brachiocephalic and subclavian veins. MRI thoracic spine 09/20/18: Interval increase in compression of the T 12 vertebral body with posterior retropulsion causing mild to moderate central canal stenosis. MRI lumbar spine 09/20/18: Interval worsening of T 12 compression fracture. No significant lumbar abnormality is seen. Labs on day of discharge: Labs from last 24 hours 09/22/18 09/22/18 09/22/18 06:44 06:44 06:44 WBC 16.87 H D RBC 3.93 L Hgb 10.6 L Hct 34.1 L MCV 86.8 MCH 27.0 MCHC 31.1 L RDW 16.8 H Plt Count 426 H MPV 9.7 Immature Gran % 1.5 Neutrophils % 69.1 Lymphocytes % 18.0 Monocytes % 10.3 Eosinophils % 0.9 Basophils % 0.2 Absolute Neutrophils 11.66 H Absolute Lymphocytes 3.04 Absolute Monocytes 1.74 H Absolute Eosinophils 0.15 Absolute Basophils 0.03 Differential Comment Diff reviewed RBC Morphology See below Polychromasia Present Poikilocytosis 1+ Sodium 140 Potassium 4.2 Chloride 105 Carbon Dioxide 26.8 Anion Gap 8.2 BUN 16 Creatinine 0.81 Estimated GFR/1.73 m2 >= 60.00 Glucose 85 Calcium 8.5 Magnesium 2.0 25-OH Vitamin D Total Pending [facility] Medical History Leukocytosis (Chronic) Hypokalemia (Acute) Primary osteoarthritis of left knee (Acute 07/30/15) PMR (polymyalgia rheumatica) (Chronic 01/15/16) Osteoporosis (Acute) Osteopenia (Acute 07/30/16) Obstructive sleep apnea syndrome (Acute) Memory impairment (Chronic 06/18/94) Increased body mass index (Acute) Hypothyroidism (Acute 04/05/12) Excessive sweating (Acute 06/02/16) Depressive disorder (Chronic) Insomnia (Acute) Tuberculosis (Chronic) Surgical History H/O dilation and curettage (Acute) S/P tonsillectomy (Acute) Abdominal hysterectomy (~1975) Appendectomy Bilateral salpingectomy with oophorectomy (~1975) Colonoscopy - MAC EGD - MAC (~2003) Laparoscopic, Ovarian Cystectomy Rotator Cuff Repair Family History Mother Heart disease Pneumonia Father Stroke Personal history of malignant neoplasm Heart disease Brother Alcohol abuse Cirrhosis with alcoholism Grandfather Essential hypertension Heart disease Grandmother Personal history of malignant neoplasm Stroke Grandmother Personal history of malignant neoplasm Son Alcohol abuse Social History household members: other details: 2 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
--- NOTE | 2018-09-22 13:25 | PT.INTREAT ---
Date of service: 09/22/18 Time of Service: 13:25 PT Notes Inpatient Physical Therapy Treatment Note [facility] Date: 09/22/18 PRECAUTIONS: Fall SUBJECTIVE: Pat is agreeable to participating in PT. She reports that she will be leaving and transferring [facility]. OBJECTIVE: PAIN: Complains of back pain with transfers and stair training BED MOBILITY/TRANSFERS Supine-sit: I Sit-stand: SBA Stand-sit: SBA GAIT Assistive Device: 4WW Weight bearing: Full Assist: SBA Distance: 250' STAIRS: Up/down 3x4 and 2x6 using B rails and a step-to pattern with supervision ASSESSMENT: Patient tolerated session with complaints of back pain. Patient would benefit from continued gait and transfer training as well as strengthening for improved activity tolerance, as well as improved ability to perform daily functional tasks at a more independent level. PLAN: As per primary PT TREATMENT CODE/TIME: Session 1: 15 minutes; [id number]
--- NOTE | 2018-09-22 18:17 | W.PALLCONSUL ---
Date of service: 09/22/18 History of Present Illness Chief Complaint: fall with compression fx Narrative: I am familiar with Riddhi from doing a home visit following her admission for a colonic perforation associated with colonoscopy. When I saw her, she was dong well from the GI perspective. She was still feeling weak. She walks with a walker, all the time, and was doing so when she fell prior to this admission for a fall with T12 compression fracture. She reported to me that she takes ambien/zolpidem nightly. I did advise that I didn't think this was a good long-term drug for her, especially given her age and frail state. She stated she can not sleep without it and she feels more frail and unsteady when she gets no sleep. She has been to the ER 5 x in less than 3 months, which is not like her. She has been admitted twice now, and doesn't like to be sick. She is planning on being discharged home soon. She would like to have wrap-around services in place so she can avoid further admissions and ER visits. She does acknowledge that she has yet to regain her strength and mobility that she had prior to her colonoscopy in June 2018. Consults Consult date: 09/21/18 Requesting physician: Mena Lugo Assessment and Plan (1) Palliative care patient: Current visit: No Status: Chronic not bouncing back the way she'd hoped continue HH services once stronger, and roads safer, may benefit from outpt PT/OT encouraged healthy eating and as much activity as she feels safe dong (2) Pain management: Current visit: No Status: Acute noticed that she was on tramadol might do better with hydrocodone or low dose morphine tramadol often difficult for geriatric patients (3) Ambulatory dysfunction: Current visit: No Status: Acute uses a walker getting PT once she's home still worried about possible medication side effects that could be contributing, ie tramadol and zolpidem (4) FTT (failure to thrive) in adult: Current visit: No Status: Acute will continue to monitor should discuss with 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 Review of Systems Constitutional Reports difficulty sleeping, Reports fatigue, Reports headache(s) and Reports weakness Eyes Reports requires corrective lenses ENT Reports dizziness, Reports dry mouth and Reports headache(s) Cardiovascular Reports lightheadedness, Reports dyspnea and Reports dyspnea on exertion Respiratory Reports dyspnea and Reports dyspnea on exertion Gastrointestinal Reports constipation Genitourinary Reports urinary incontinence Musculoskeletal Reports abnormal gait, Reports back pain, Reports atrophy, Reports arthralgias, Reports loss of height and Reports muscle weakness Neurologic Reports abnormal gait, Reports dizziness, Reports headache(s) and Reports weakness Psychiatric Reports difficulty concentrating Endocrine Reports fatigue [facility] Medical History Leukocytosis (Chronic) Hypokalemia (Acute) Primary osteoarthritis of left knee (Acute 07/30/15) PMR (polymyalgia rheumatica) (Chronic 01/15/16) Osteoporosis (Acute) Osteopenia (Acute 07/30/16) Obstructive sleep apnea syndrome (Acute) Memory impairment (Chronic 06/18/94) Increased body mass index (Acute) Hypothyroidism (Acute 04/05/12) Excessive sweating (Acute 06/02/16) Depressive disorder (Chronic) Insomnia (Acute) Tuberculosis (Chronic) Surgical History H/O dilation and curettage (Acute) S/P tonsillectomy (Acute) Abdominal hysterectomy (~1975) Appendectomy Bilateral salpingectomy with oophorectomy (~1975) Colonoscopy - MAC EGD - MAC (~2003) Laparoscopic, Ovarian Cystectomy Rotator Cuff Repair Family History Mother Heart disease Pneumonia Father Stroke Personal history of malignant neoplasm Heart disease Brother Alcohol abuse Cirrhosis with alcoholism Grandfather Essential hypertension Heart disease Grandmother Personal history of malignant neoplasm Stroke Grandmother Personal history of malignant neoplasm Son Alcohol abuse Social History Smoking/Tobacco Use Status: Former Tobacco Use Alcohol Intake: current Alcohol Intake frequency: a few times a month Drug use: Never Household members: other Details: 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 Do you feel safe in your relationship?: Yes Additional Social history: DECREASED VISION Exam Const General: cooperative, no acute distress and frail appearing Nutritional Appearance: obese Orientation: alert, awake and oriented x3 HENMT Head: normocephalic Ears: hearing grossly normal bilaterally General nose exam: external nose normal Eyes Conjunctivae: conjunctivae normal Sclera: sclerae normal Neck Neck: no lymphadenopathy and no JVD Resp Effort & Inspection: normal respiratory effort and able to speak in complete sentences Auscultation: clear to auscultation bilaterally and diminished lung sounds Cardio Jugular venous pressure: no JVD Rate: regular rate Rhythm: regular rhythm Heart Sounds: S1 normal and S2 normal GI Inspection: normal to inspection Palpation: soft and nontender Auscultation: normal bowel sounds Skin General skin exam: dry skin and pallor Lesions: no lesions Neuro General: alert, awake and oriented x3 Cognition: normal cognition Gait: antalgic, shuffling and gait assisted Method: walker Extrem General: muscle atrophy Psych Appearance: grossly normal Mental Status: mental status grossly normal Speech and Movement: speech and movement normal Mood: congruent mood Affect: normal affect and blunted Attitude: cooperative Thought Process: impoverished Insight: fair Judgment: fair Results Last Vital Signs Temp 98.1 F 09/22/18 12:20 Pulse 87 09/22/18 12:20 Resp 18 09/22/18 12:20 BP 158/79 H 09/22/18 12:20 Pulse Ox 97 09/22/18 12:20 Labs : 09/22/18 06:44 09/22/18 06:44
== END 2018-09-22 13:05 | disposition skilled nursing facility (03) | DRG 552 ==
LOC: ER 16:20 → MS 09-12 11:13
PROVIDERS: Nurse Practitioner; Surgery; Admitting Provider Nurse Practitioner Family; Emergency Provider Physician Assistant; PCP Family Medicine; Visit Provider Internal Medicine
DX: S22.080A Wedge compression fracture of T11-T12 vertebra, initial encounter for closed fracture (principal); E27.3 Drug-induced adrenocortical insufficiency; R44.3 Hallucinations, unspecified; F05 Delirium due to known physiological condition; W19.XXXA Unspecified fall, initial encounter; T38.0X5A Adverse effect of glucocorticoids and synthetic analogues, initial encounter; E87.6 Hypokalemia; E83.42 Hypomagnesemia; R10.32 Left lower quadrant pain; G89.11 Acute pain due to trauma; R53.1 Weakness; D72.829 Elevated white blood cell count, unspecified; R93.89 Abnormal findings on diagnostic imaging of other specified body structures; Z79.52 Long term (current) use of systemic steroids; M35.3 Polymyalgia rheumatica; Z90.49 Acquired absence of other specified parts of digestive tract; R76.11 Nonspecific reaction to tuberculin skin test without active tuberculosis; G47.33 Obstructive sleep apnea (adult) (pediatric); R33.9 Retention of urine, unspecified; D63.8 Anemia in other chronic diseases classified elsewhere; K59.00 Constipation, unspecified; E03.9 Hypothyroidism, unspecified; R19.7 Diarrhea, unspecified; Z51.5 Encounter for palliative care; R26.2 Difficulty in walking, not elsewhere classified; M81.0 Age-related osteoporosis without current pathological fracture; R26.89 Other abnormalities of gait and mobility; V89.2XXS Person injured in unspecified motor-vehicle accident, traffic, sequela; R68.2 Dry mouth, unspecified
CPT/HCPCS: 36415; 70491; 76536; 80048; 80053; 82306; 93005; 96361; 96365; 96366; 97110; 97162; 97530; 99221; 99222; 99223; 99232; 99233; 99239; 99252; 99254; 99285; J1650; 70450; 71046; 72125; 72128; 72131; 72146; 72148; 74019; 74177; 81003; 81015; 82607; 82728; 83540; 83735; 84484; 85025; 86140; 87324; 93010; 99238; J0744; J0897; J1200; J1720; J1756; J1885; J2060; J2270; J3480; J3490; J7509; L0472

== ENCOUNTER 2018-09-24 12:30 | Emergency (ER) | payer MEDICARE, SELFPAY ==
--- NOTE | 2018-09-24 12:35 | W.ED.GENAD ---
Discharge Plan Disposition Patient Disposition: HOME Condition: Stable Discharge Details Chief Complaint: GI Bleed Clinical Impression: Colitis Primary Care Provider: Lzi Granado ED Provider: Ammy Bailey [place] Meds and New Rx's Prescriptions: Continued isoniazid 300 mg tablet 300 mg PO DAILY RF: 0 calcium carbonate-vitamin D3 [Caltrate with Vitamin D3] 600 mg(1,500mg) -800 unit tablet 1 tab PO DAILY RF: 0 bupropion HCl [Wellbutrin XL] 150 mg tablet extended release 24 hr 150 mg PO QAM RF: 0 pyridoxine (vitamin B6) 25 mg tablet 25 mg PO DAILY RF: 0 multivitamin [One Daily Multivitamin] tablet 1 tab PO BID RF: 0 furosemide 20 mg tablet 40 mg PO DAILY RF: 0 ferrous gluconate 324 mg (38 mg iron) tablet 324 mg PO DAILY PRN (Reason: iron deficient anemia) Qty: 90 RF: 2 aspirin [Aspirin Low Dose] 81 MG tablet,delayed release (DR/EC) 81 mg PO DAILY RF: 0 folic acid 1 MG tablet 1 mg PO DAILY Qty: 90 RF: 4 bupropion HCl 300 mg tablet extended release 24 hr 300 mg PO QAM Qty: 90 RF: 2 levothyroxine 125 mcg capsule 125 mcg PO DAILY Qty: 30 RF: 3 mirtazapine 7.5 mg tablet 7.5 mg PO HS Qty: 90 RF: 2 clotrimazole 1 % Ointment 45 g topical BID RF: 0 polyethylene glycol 3350 [Miralax] 17 gram Powder In Packet 1 packet PO DAILY RF: 0 nystatin 100,000 unit/gram Cream 60 g topical DAILY RF: 0 methylprednisolone [Medrol] 4 mg Tablet 10 mg PO QAM Qty: 0 RF: 0 methylprednisolone [Medrol] 4 mg Tablet See Rx Instructions .ROUTE .COMPLEX Qty: 7 RF: 0 amlodipine 5 mg Tablet 5 mg PO DAILY Qty: 0 RF: 0 lidocaine [Lidoderm] 5 % Adhesive Patch,Medicated 1 patch topical DAILY Qty: 0 RF: 0 docusate sodium [Colace] 100 mg Capsule 100 mg PO BID Qty: 0 RF: 0 melatonin 3 mg Tablet Extended Release 6 mg PO HS Qty: 0 RF: 0 magnesium chloride [Mag 64] 64 mg Tablet,Delayed Release (Dr/Ec) 64 mg PO BID Qty: 0 RF: 0 tramadol 50 mg Tablet 50 mg PO Q6H PRN PRNQty: 0 RF: 0 potassium chloride [Klor-Con M20] 20 mEq Tablet,Er Particles/Crystals 40 meq PO BID Qty: 0 RF: 0 zolpidem 5 mg Tablet 5 mg PO HS Qty: 0 RF: 0 Mouthwash [Biotene Mouthwash] Mucous Membrane BID PRN PRNQty: 0 RF: 0 Discharge Instructions Instructions: Diverticulitis (ED), Colitis (ED) Additional Instructions: Take Cipro 500 mg p.o. twice daily for the next 10 days Take Flagyl 500 mg p.o. 3 times daily for the next 10 days. Attempt to obtain a stool culture to send for bacterial pathogens. Follow up with surgery Dr. Schwarz within the next week for re-evaluation. Return immediately to the emergency department with any worsening or new concerning symptoms. Discharge Data Discharge Physician: Ammy Bailey Medical Decision Making 78-year-old female with a history of bowel resection status post perforation during colonoscopy and adrenal insufficiency who presents with diarrhea since last night and rectal bleeding since this morning. She is taking aspirin but no other anticoagulation. She admits to history of chronic abdominal pain since her perforation states is no worse than usual. She does also admit to vomiting a few times last night. She denies any known fever. Blood pressure mildly hypertensive, remainder vitals within normal limits. Patient appears nontoxic. Her abdomen is soft and diffusely mildly tender. Considering patient's history, will place an IV, labs, urinalysis, CT abdomen and pelvis. 1600 -- labs and imaging reviewed. WBC 17. Hemoglobin 12.3. Normal electrolytes. Troponin negative. Urinalysis notes 5-10 WBCs, positive nitrite with negative leukocyte esterase. Urine culture sent. CT notes infectious versus inflammatory colitis with several diverticuli and thus diverticulitis cannot be excluded. Findings discussed with surgery on-call -as patient is hemodynamically stable, nontoxic, can be discharged back to rehab with p.o. antibiotics. Will give 1 dose of p.o. Cipro and p.o. Flagyl here which will cover for urine and CT findings. Recommend patient follow-up with surgery next week. Results also discussed with Dr. Ferreira at rehab. Notified of white blood cell count of 17, which patient had been elevated recently in the past due to her steroids. She has no fever, hemodynamically stable, improving abdominal pain, so is in agreement with plan for transfer back to rehab. She was notified that we were unable to obtain a stool culture here. She has ordered a culture for C. difficile. An order was sent back with patient to the rehab for Cipro p.o. twice daily times 10 days and Flagyl p.o. 3 times daily times 10 days. An additional order was sent for school culture for bacterial pathogens and for follow-up with surgery in [address] Ferreira declined any prescription for antibiotics. Patient was able to drink fluids here. She is instructed to follow-up with her primary care doctor for reevaluation and return here at any time if worse. Medical Records Medical records reviewed: Yes I reviewed the patient's medical records. Imaging Data Radiologic Study: Radiologist's impression: CT SCAN OF THE ABDOMEN AND PELVIS: CT scan of the abdomen and pelvis was performed following intravenous contrast material. Comparison is 09/15/18. There is bowel wall thickening seen in the region of the splenic flexure. Pericolonic inflammatory changes are seen. No definite diverticula are seen in the region of the inflammation. There are a few diverticula seen more distally in the sigmoid colon. No abscess or free air is seen. The liver, spleen, pancreas, gallbladder, bile ducts and adrenal glands show no acute abnormality. There are cysts seen in the kidneys, but no solid renal mass or obstruction. The urinary bladder is intact. The abdominal aorta is of normal caliber. IMPRESSION: Bowel wall thickening and pericolonic inflammatory changes seen in the region of the hepatic flexure concerning for an inflammatory infectious colitis. There are a few diverticula seen more distally. Diverticulitis cannot be entirely excluded. Lab Data Lab results reviewed: Yes I reviewed the patient's lab results. 09/24/18 15:50 Urine - Reflex from Ua Urine Culture - Pending Laboratory Tests Range/Units 09/24/18 09/24/18 09/24/18 12:45 12:45 12:45 WBC (4.4-10.8) k/cumm 17.40 H RBC (4.00-5.20) m/cumm 4.49 Hgb (12.0-15.5) g/dL 12.3 Hct (36.0-46.0) % 38.7 MCV (80-95) fL 86.2 MCH (27.0-33.0) pg 27.4 MCHC (32.0-36.0) g/dL 31.8 L RDW (11.7-14.6) % 17.6 H Plt Count (130-400) x1000/uL 464 H MPV (8.0-11.0) fL 9.7 Immature Gran % 0.4 Neutrophils % 79.1 Lymphocytes % 10.6 Monocytes % 9.5 Eosinophils % 0.2 Basophils % 0.2 Absolute Neutrophils (1.2-6.7) k/cumm 13.76 H Absolute Lymphocytes (1.2-3.4) k/cumm 1.84 Absolute Monocytes (0.11-0.7) k/cumm 1.65 H Absolute Eosinophils (0.0-0.7) k/cumm 0.03 Absolute Basophils (0.0-0.2) k/cumm 0.03 Differential Comment Diff reviewed RBC Morphology See below Anisocytosis 1+ PT (9.3-11.0) sec 10.4 INR (0.9-1.1) 1.0 APTT (21.0-31.4) sec 22.3 Sodium (136-145) mmol/L 136 Potassium (3.5-5.1) mmol/L 4.3 Chloride (98-107) mmol/L 100 Carbon Dioxide (21.0-32.0) mmol/L 26.6 Anion Gap (3-11) mmol/L 9.4 BUN (7-18) mg/dL 19 H Creatinine (0.55-1.02) mg/dL 0.94 Estimated GFR/1.73 m2 (mL/min/1.73m2) 57.74 Glucose (70-100) mg/dL 127 H Calcium (8.5-10.1) mg/dL 9.0 Magnesium (1.8-2.4) mg/dL 2.2 Total Bilirubin (0.2-1.0) mg/dL 0.4 AST (15-37) U/L 30 ALT (12-78) U/L 37 Alkaline Phosphatase (46-116) U/L 113 Troponin I (0.00-0.06) ng/mL < 0.02 Total Protein (6.4-8.2) g/dL 7.6 Albumin (3.4-5.0) g/dL 3.3 L Lipase (73-393) U/L 74 Urine Color (Yellow) Urine Clarity Urine pH (5-8) Ur Specific [place] (1.005-1.025) Urine Protein (Negative) mg/dL Urine Ketones (Negative) mg/dL Urine Blood (Negative) Urine Nitrite (Negative) Urine Bilirubin (Negative) Urine Urobilinogen (Up TO 0.2) EU/dL Ur Leukocyte Esterase (Negative) Urine RBC (0-2) Urine WBC (0-5) HPF Ur Epithelial Cells (Negative) HPF Urine Crystals (Negative) HPF Urine Bacteria (Negative) HPF Urine Casts (Negative) LPF Urine Mucus (Negative) Urine Other (Negative) Ur Culture Indicated? Urine Glucose (Negative) mg/dL Patient ABO/Rh Antibody Screen Range/Units 09/24/18 09/24/18 12:45 15:50 WBC (4.4-10.8) k/cumm RBC (4.00-5.20) m/cumm Hgb (12.0-15.5) g/dL Hct (36.0-46.0) % MCV (80-95) fL MCH (27.0-33.0) pg MCHC (32.0-36.0) g/dL RDW (11.7-14.6) % Plt Count (130-400) x1000/uL MPV (8.0-11.0) fL Immature Gran % Neutrophils % Lymphocytes % Monocytes % Eosinophils % Basophils % Absolute Neutrophils (1.2-6.7) k/cumm Absolute Lymphocytes (1.2-3.4) k/cumm Absolute Monocytes (0.11-0.7) k/cumm Absolute Eosinophils (0.0-0.7) k/cumm Absolute Basophils (0.0-0.2) k/cumm Differential Comment RBC Morphology Anisocytosis PT (9.3-11.0) sec INR (0.9-1.1) APTT (21.0-31.4) sec Sodium (136-145) mmol/L Potassium (3.5-5.1) mmol/L Chloride (98-107) mmol/L Carbon Dioxide (21.0-32.0) mmol/L Anion Gap (3-11) mmol/L BUN (7-18) mg/dL Creatinine (0.55-1.02) mg/dL Estimated GFR/1.73 m2 (mL/min/1.73m2) Glucose (70-100) mg/dL Calcium (8.5-10.1) mg/dL Magnesium (1.8-2.4) mg/dL Total Bilirubin (0.2-1.0) mg/dL AST (15-37) U/L ALT (12-78) U/L Alkaline Phosphatase (46-116) U/L Troponin I (0.00-0.06) ng/mL Total Protein (6.4-8.2) g/dL Albumin (3.4-5.0) g/dL Lipase (73-393) U/L Urine Color (Yellow) Yellow Urine Clarity Cloudy Urine pH (5-8) 7.0 Ur Specific [place] (1.005-1.025) 1.015 Urine Protein (Negative) mg/dL Negative Urine Ketones (Negative) mg/dL Negative Urine Blood (Negative) Trace-intact H Urine Nitrite (Negative) Positive H Urine Bilirubin (Negative) Negative Urine Urobilinogen (Up TO 0.2) EU/dL 0.2 Ur Leukocyte Esterase (Negative) Negative Urine RBC (0-2) 0-2 Urine WBC (0-5) HPF 5-10 Ur Epithelial Cells (Negative) HPF Rare Urine Crystals (Negative) HPF Moderate amorphous Urine Bacteria (Negative) HPF Many Urine Casts (Negative) LPF Negative Urine Mucus (Negative) Negative Urine Other (Negative) Rare renal Ur Culture Indicated? Yes Urine Glucose (Negative) mg/dL Negative Patient ABO/Rh O Positive Antibody Screen Negative HPI General Mode of arrival: ambulatory. Date/Time Provider Initiated Documentation: 09/24/18 12:31. Limitations to Documentation: no limitations. Information obtained by: patient. HPI Narrative: Patient is a 78-year-old female with a history of bowel resection status post perforation during colonoscopy and her adrenal insufficiency who presents with diarrhea and vomiting last night and bright red rectal bleeding this morning. Patient states she vomited multiple times last night. She admits to some nausea at present. She states she had diarrhea again this morning and then is noticed bright red blood mixed with stool. She states she has a history of chronic abdominal pain since her perforation but denies any worsening of pain at this time. She denies any known fever. She admits to generalized weakness but denies shortness of breath or chest pain. Related Data Home Medications Medication Instructions Recorded Confirmed aspirin [Aspirin Low Dose] 81 mg PO DAILY tab-cap 12/20/12 09/11/18 folic acid 1 mg PO DAILY #90 tab-cap 08/27/17 09/11/18 pyridoxine (vitamin B6) 25 mg 25 mg PO DAILY 05/19/18 09/11/18 tablet isoniazid 300 mg tablet 300 mg PO DAILY 06/14/18 09/11/18 bupropion HCl XL 300 mg 24 hr 300 mg PO QAM #90 tab 07/22/18 08/31/18 tablet, extended release clotrimazole 45 g TOPICAL BID 07/30/18 09/11/18 nystatin 60 g TOPICAL DAILY 07/30/18 09/11/18 polyethylene glycol 3350 [Miralax] 1 packet PO DAILY 07/30/18 09/11/18 bupropion HCl XL 150 mg 24 hr 150 mg PO QAM 08/02/18 09/11/18 tablet, extended release calcium carbonate-vitamin D3 600 1 tab PO DAILY tab 08/02/18 09/11/18 mg (1,500 mg)-800 unit tablet multivitamin tablet 1 tab PO BID tab 08/06/18 09/11/18 levothyroxine 125 mcg capsule 125 mcg PO DAILY #30 cap 08/23/18 09/11/18 mirtazapine 7.5 mg tablet 7.5 mg PO HS #90 tab-cap 08/30/18 09/11/18 ferrous gluconate 324 mg (38 mg 324 mg PO DAILY PRN #90 tab 08/31/18 09/11/18 iron) tablet furosemide 20 mg tablet 40 mg PO DAILY tab 08/31/18 09/11/18 Mouthwash [Biotene Mouthwash] 0 ml MUCOUS MEMBRANE BID PRN PRN #0 09/22/18 amlodipine 5 mg PO DAILY #0 tab 09/22/18 docusate sodium [Colace] 100 mg PO BID #0 cap 09/22/18 lidocaine [Lidoderm] 1 patch TOPICAL DAILY #0 ea 09/22/18 magnesium chloride [Mag 64] 64 mg PO BID #0 tab 09/22/18 melatonin 6 mg PO HS #0 tab 09/22/18 methylprednisolone [Medrol] 10 mg PO QAM #0 tab 09/22/18 methylprednisolone [Medrol] See Rx Instructions .ROUTE 09/22/18 .COMPLEX #7 tab potassium chloride [Klor-Con M20] 40 meq PO BID #0 tab 09/22/18 tramadol 50 mg PO Q6H PRN PRN #0 tab 09/22/18 zolpidem 5 mg PO HS #0 tab 09/22/18 Previous Rx's Medication Instructions Recorded folic acid 1 mg PO DAILY #90 tab-cap 08/27/17 bupropion HCl XL 300 mg 24 hr 300 mg PO QAM #90 tab 07/22/18 tablet, extended release levothyroxine 125 mcg capsule 125 mcg PO DAILY #30 cap 08/23/18 mirtazapine 7.5 mg tablet 7.5 mg PO HS #90 tab-cap 08/30/18 ferrous gluconate 324 mg (38 mg 324 mg PO DAILY PRN #90 tab 08/31/18 iron) tablet Mouthwash [Biotene Mouthwash] 0 ml MUCOUS MEMBRANE BID PRN PRN #0 09/22/18 amlodipine 5 mg PO DAILY #0 tab 09/22/18 docusate sodium [Colace] 100 mg PO BID #0 cap 09/22/18 lidocaine [Lidoderm] 1 patch TOPICAL DAILY #0 ea 09/22/18 magnesium chloride [Mag 64] 64 mg PO BID #0 tab 09/22/18 melatonin 6 mg PO HS #0 tab 09/22/18 methylprednisolone [Medrol] 10 mg PO QAM #0 tab 09/22/18 methylprednisolone [Medrol] See Rx Instructions .ROUTE 09/22/18 .COMPLEX #7 tab potassium chloride [Klor-Con M20] 40 meq PO BID #0 tab 09/22/18 tramadol 50 mg PO Q6H PRN PRN #0 tab 09/22/18 zolpidem 5 mg PO HS #0 tab 09/22/18 Allergies Allergy/AdvReac Type Severity Reaction Status Date / Time banana Allergy Intermediate Other (See Unverified 09/24/18 16:04 Comment) cucumber Allergy Intermediate Other (See Unverified 09/24/18 16:04 Comment) Iodinated Contrast- Oral and Allergy Unknown SWELLING; Unverified 09/24/18 16:04 IV Dye RASH [Iodinated Contrast Media - IV Dye] chloramphenicol AdvReac Severe KIDNEY Unverified 09/24/18 16:04 FAILURE tetracycline AdvReac Severe KIDNEY Unverified 09/24/18 16:04 FAILURE melon AdvReac Intermediate Cantaloupe-Abd Verified 09/24/18 16:04 pain, diarrhea ADHESIVE TAPE Allergy Intermediate takes skin Uncoded 09/24/18 16:04 off SUTURE MATERIAL Allergy Intermediate Purluent Uncoded 09/24/18 16:04 Drainage General JOSHUA: 3 Review of Systems Review of Systems All systems reviewed & are unremarkable except as noted in HPI and below Constitutional Reports as per HPI, Denies chills and Denies fever(s) Eyes Denies blurry vision ENT Denies dizziness, Denies sore throat and Denies throat swelling Cardiovascular Denies chest pain and Denies dyspnea Respiratory Denies cough and Denies dyspnea Gastrointestinal Reports abdominal pain (chronic), Reports hematochezia, Reports diarrhea, Reports nausea and Denies vomiting Genitourinary Denies hematuria and Denies dysuria Musculoskeletal Denies back pain and Denies numbness Integumentary/Breasts Denies lesions and Denies rash Neurologic Denies dizziness, Denies focal weakness and Denies numbness Allergic/Immunologic Denies throat swelling PFSH Medical History Leukocytosis (Chronic) Hypokalemia (Acute) Primary osteoarthritis of left knee (Acute 07/30/15) PMR (polymyalgia rheumatica) (Chronic 01/15/16) Osteoporosis (Acute) Osteopenia (Acute 07/30/16) Obstructive sleep apnea syndrome (Acute) Memory impairment (Chronic 06/18/94) Increased body mass index (Acute) Hypothyroidism (Acute 04/05/12) Excessive sweating (Acute 06/02/16) Depressive disorder (Chronic) Insomnia (Acute) Tuberculosis (Chronic) Social History household members: other details: 2 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
[2018-09-24 12:40] VITALS: BP 157/93; PULSE 83; RESP 22; TEMP 36.5; O2SAT 98
[2018-09-24 12:58] LABS: Abs Immature Grans 0.07 k/cumm (0.0-0.09); Absolute Monocyte Count 1.65 k/cumm (0.11-0.7); Basophils % 0.2; Eosinophils % 0.2; HCT 38.7 % (36.0-46.0); HGB 12.3 g/dL (12.0-15.5); Immature Grans % 0.4; Lymphocytes % 10.6; Mean Corp. HGB Concentration 31.8 g/dL (32.0-36.0); Mean Corpuscular Hemoglobin 27.4 pg (27.0-33.0); Mean Corpuscular Volume 86.2 fL (80-95); Mean Platelet Volume 9.7 fL (8.0-11.0); Monocytes % 9.5; Neutrophils % 79.1; Platelet Count 464 x1000/uL (130-400); RBC 4.49 m/cumm (4.00-5.20); RBC Distribution Width 17.6 % (11.7-14.6)
[2018-09-24 13:03] LABS: Absolute Basophil Count 0.03 k/cumm (0.0-0.2); Absolute Eosinophil Count 0.03 k/cumm (0.0-0.7); Absolute Lymphocyte Count 1.84 k/cumm (1.2-3.4); Absolute Neutrophil Count 13.76 k/cumm (1.2-6.7)
[2018-09-24 13:12] LABS: PTT Activated 22.3 sec (21.0-31.4); Prothrombin Time 10.4 sec (9.3-11.0)
[2018-09-24 13:14] LABS: ALT 37 U/L (12-78); AST 30 U/L (15-37); Albumin 3.3 g/dL (3.4-5.0); Alkaline Phosphatase 113 U/L (46-116); Anion Gap 9.4 mmol/L (3-11); BUN 19 mg/dL (7-18); Bilirubin, Total 0.4 mg/dL (0.2-1.0); CO2 26.6 mmol/L (21.0-32.0); CREATININE 0.94 mg/dL (0.55-1.02); Chloride 100 mmol/L (98-107); Estimated GFR 57.74 (mL/min/1.73m2); Glucose 127 mg/dL (70-100); Lipase 74 U/L (73-393); Magnesium 2.2 mg/dL (1.8-2.4); Potassium 4.3 mmol/L (3.5-5.1); Sodium 136 mmol/L (136-145); Total Protein 7.6 g/dL (6.4-8.2)
[2018-09-24 13:16] LABS: Troponin I < 0.02 ng/mL (0.00-0.06)
[2018-09-24 13:23] LABS: Anisocytosis 1+; Diff Comment Diff Reviewed
[2018-09-24] MEDS: diphenhydrAMINE 50 MG/ML VIAL IVP (13:30)
[2018-09-24] MEDS: methylPREDNISolone SUCC 125 MG VIAL IVP (13:30)
[2018-09-24] MEDS: Normal Saline 250 ML IV (13:43)
[2018-09-24] MEDS: MORPHine 10 MG/ML VIAL 4 MG IVP (13:43)
[2018-09-24] MEDS: Ondansetron 4 MG/2 ML VIAL IVP (13:44)
[2018-09-24] MEDS: Omnipaque 350 MG/ML 100 ML BTL IJ (15:15)
--- NOTE | 2018-09-24 15:15 | DI.CT_ITS ---
SYMPTOMS/DIAGNOSIS: DIFFUSE CHRONIC RECTAL BLEEDING/DIARRHEA S/P BOWEL PERFORATION CT SCAN OF THE ABDOMEN AND PELVIS: CT scan of the abdomen and pelvis was performed following intravenous contrast material. Comparison is 09/15/18. There is bowel wall thickening seen in the region of the splenic flexure. Pericolonic inflammatory changes are seen. No definite diverticula are seen in the region of the inflammation. There are a few diverticula seen more distally in the sigmoid colon. No abscess or free air is seen. The liver, spleen, pancreas, gallbladder, bile ducts and adrenal glands show no acute abnormality. There are cysts seen in the kidneys, but no solid renal mass or obstruction. The urinary bladder is intact. The abdominal aorta is of normal caliber. IMPRESSION: Bowel wall thickening and pericolonic inflammatory changes seen in the region of the hepatic flexure concerning for an inflammatory infectious colitis. There are a few diverticula seen more distally. Diverticulitis cannot be entirely excluded. The findings were discussed with Dr. Bailey of the Emergency Department on the date of the examination.
[2018-09-24 15:59] LABS: Bilirubin Negative (Negative); Blood Trace-intact (Negative); Clarity Cloudy; Glucose Negative (Negative); Ketones Negative (Negative); Leukocyte Esterase Negative (Negative); Nitrite Positive (Negative); Specific Gravity 1.015 (1.005-1.025); Urobilinogen 0.2 EU/dL (Up TO 0.2)
[2018-09-24 16:08] LABS: Epithelial Cells Rare HPF (Negative); RBC 0-2 (0-2)
[2018-09-24 16:09] LABS: Bacteria Many HPF (Negative); C & S Indicated? Yes; Casts Negative LPF (Negative); Crystals Moderate Amorphous HPF (Negative); Mucus Negative (Negative); Other Cells Rare Renal (Negative)
[2018-09-24] MEDS: metroNIDAZOLE 500 MG TAB PO (16:10)
[2018-09-24] MEDS: Ciprofloxacin 500 MG TAB PO (16:10)
[2018-09-24 17:11] VITALS: BP 157/93; PULSE 83; RESP 22; TEMP 36.5; O2SAT 98
--- NOTE | 2018-09-26 11:46 | NUR.NOTE ---
Nursing Note: At the request of [facility] and with the permission of the nursing sterile supervisor, Aniyah Jernigan. I faxed the MD note, RN report, xray report and a urine culture report to them. Yary Lanier Fax [phone]
== END 2018-09-24 17:05 | disposition home or self-care (01) ==
PROVIDERS: Emergency Provider Physician Assistant; PCP Family Medicine
DX: K52.9 Noninfective gastroenteritis and colitis, unspecified (principal); K62.5 Hemorrhage of anus and rectum; R11.2 Nausea with vomiting, unspecified; R53.1 Weakness; Z79.82 Long term (current) use of aspirin
CPT/HCPCS: 80053; 83690; 86850; 86900; 86901; 87077; 96361; 96374; 96375; 99285; 74177; 81003; 81015; 83735; 84484; 85025; 85610; 85730; 87086; 99283; J1200; J2270; J2405; J2930; J3490

== ENCOUNTER 2018-09-24 13:01 | Outpatient (REF) | payer MEDICARE, SELFPAY | END 2018-09-24 13:21 | LOC: LBN 13:01 | PROVIDERS: PCP Family Medicine; Visit Provider Family Medicine | DX: R19.7 Diarrhea, unspecified (principal) | CPT/HCPCS: 87324 ==

== ENCOUNTER 2018-10-03 10:58 | Outpatient (REF) | payer MEDICARE, SELFPAY | END 2018-10-03 11:18 | LOC: LBN 10:58 | PROVIDERS: PCP Family Medicine; Visit Provider Family Medicine | DX: R33.9 Retention of urine, unspecified (principal) | CPT/HCPCS: 87077; 87086 ==

== ENCOUNTER 2018-10-03 16:14 | Outpatient (REF) | payer MEDICARE, SELFPAY ==
[2018-10-03 16:27] LABS: Abs Immature Grans 0.02 k/cumm (0.0-0.09); Absolute Basophil Count 0.06 k/cumm (0.0-0.2); Absolute Eosinophil Count 0.17 k/cumm (0.0-0.7); Absolute Lymphocyte Count 2.06 k/cumm (1.2-3.4); Absolute Monocyte Count 1.47 k/cumm (0.11-0.7); Absolute Neutrophil Count 4.99 k/cumm (1.2-6.7); Basophils % 0.7; Eosinophils % 1.9; HCT 35.6 % (36.0-46.0); HGB 11.4 g/dL (12.0-15.5); Immature Grans % 0.2; Lymphocytes % 23.5; Mean Corpuscular Hemoglobin 28.1 pg (27.0-33.0); Mean Corpuscular Volume 87.9 fL (80-95); Monocytes % 16.8; Neutrophils % 56.9; Platelet Count 362 x1000/uL (130-400); RBC 4.05 m/cumm (4.00-5.20); RBC Distribution Width 18.7 % (11.7-14.6); White Blood Cell Count 8.77 k/cumm (4.4-10.8)
[2018-10-03 16:33] LABS: Anion Gap 5.6 mmol/L (3-11); BUN 12 mg/dL (7-18); CO2 27.4 mmol/L (21.0-32.0); CREATININE 1.06 mg/dL (0.55-1.02); Calcium 11.5 mg/dL (8.5-10.1); Chloride 100 mmol/L (98-107); Estimated GFR 50.27 (mL/min/1.73m2); Glucose 118 mg/dL (70-100); Potassium 4.7 mmol/L (3.5-5.1); Sodium 133 mmol/L (136-145)
[2018-10-03 16:40] LABS: Anisocytosis 1+
== END 2018-10-03 16:34 ==
LOC: LBN 16:14
PROVIDERS: PCP Family Medicine; Visit Provider Family Medicine
DX: R41.0 Disorientation, unspecified (principal); N39.0 Urinary tract infection, site not specified; R33.9 Retention of urine, unspecified
CPT/HCPCS: 80048; 85025

== ENCOUNTER 2018-10-11 23:30 | Outpatient (REF) | payer MEDICARE, SELFPAY ==
[2018-10-12 02:24] LABS: Bilirubin Negative (Negative); Blood Negative (Negative); Clarity Sl Cloudy; Glucose Negative (Negative); Ketones Negative (Negative); Leukocyte Esterase Trace (Negative); Nitrite Positive (Negative); Specific Gravity 1.015 (1.005-1.025); Urobilinogen 0.2 EU/dL (Up TO 0.2)
[2018-10-12 02:31] LABS: Bacteria Moderate HPF (Negative); Casts 0-2 Hyaline LPF (Negative); Crystals Negative HPF (Negative); Epithelial Cells Rare HPF (Negative); RBC 0-2 (0-2); WBC 20-50 HPF (0-5)
[2018-10-12 02:32] LABS: C & S Indicated? C&S Done As Ordered; Mucus Negative (Negative)
== END 2018-10-11 23:50 ==
LOC: LBN 23:30
PROVIDERS: PCP Family Medicine; Visit Provider Family Medicine
DX: R33.9 Retention of urine, unspecified (principal)
CPT/HCPCS: 81003; 81015; 87086

== ENCOUNTER 2018-10-12 05:53 | Inpatient (IN) | payer MEDICARE, SELFPAY ==
[2018-10-12] VITALS (9 sets, daily range): BP systolic 118–134; BP diastolic 47–68; PULSE 73–89; RESP 16–22; TEMP 36.6–37.4; O2SAT 93–99
--- NOTE | 2018-10-12 06:05 | W.ED.GENAD ---
Discharge Plan Disposition Patient Disposition: [facility] INPATIENT Condition: Stable Discharge Details Chief Complaint: Abd Prob Clinical Impression: Colitis, Generalized weakness, UTI (urinary tract infection) Reason For Visit: LES Primary Care Provider: Liz Granado ED Provider: Ammy Bailey [place] Meds and New Rx's Prescriptions: No Action isoniazid 300 mg tablet 300 mg PO DAILY RF: 0 calcium carbonate-vitamin D3 [Caltrate with Vitamin D3] 600 mg(1,500mg) -800 unit tablet 1 tab PO DAILY RF: 0 bupropion HCl [Wellbutrin XL] 150 mg tablet extended release 24 hr 150 mg PO QAM RF: 0 pyridoxine (vitamin B6) 25 mg tablet 25 mg PO DAILY RF: 0 multivitamin [One Daily Multivitamin] tablet 1 tab PO BID RF: 0 furosemide 20 mg tablet 40 mg PO DAILY RF: 0 ferrous gluconate 324 mg (38 mg iron) tablet 324 mg PO DAILY PRN (Reason: iron deficient anemia) Qty: 90 RF: 2 aspirin [Aspirin Low Dose] 81 MG tablet,delayed release (DR/EC) 81 mg PO DAILY RF: 0 folic acid 1 MG tablet 1 mg PO DAILY Qty: 90 RF: 4 bupropion HCl 300 mg tablet extended release 24 hr 300 mg PO QAM Qty: 90 RF: 2 levothyroxine 125 mcg capsule 125 mcg PO DAILY Qty: 30 RF: 3 mirtazapine 7.5 mg tablet 7.5 mg PO HS Qty: 90 RF: 2 clotrimazole 1 % Ointment 45 g topical BID RF: 0 nystatin 100,000 unit/gram Cream 60 g topical DAILY RF: 0 methylprednisolone [Medrol] 4 mg Tablet 10 mg PO QAM Qty: 0 RF: 0 methylprednisolone [Medrol] 4 mg Tablet See Rx Instructions .ROUTE .COMPLEX Qty: 7 RF: 0 amlodipine 5 mg Tablet 5 mg PO DAILY Qty: 0 RF: 0 lidocaine [Lidoderm] 5 % Adhesive Patch,Medicated 1 patch topical DAILY Qty: 0 RF: 0 docusate sodium [Colace] 100 mg Capsule 100 mg PO BID Qty: 0 RF: 0 melatonin 3 mg Tablet Extended Release 6 mg PO HS Qty: 0 RF: 0 magnesium chloride [Mag 64] 64 mg Tablet,Delayed Release (Dr/Ec) 64 mg PO BID Qty: 0 RF: 0 tramadol 50 mg Tablet 50 mg PO Q6H PRN PRNQty: 0 RF: 0 potassium chloride [Klor-Con M20] 20 mEq Tablet,Er Particles/Crystals 40 meq PO BID Qty: 0 RF: 0 zolpidem 5 mg Tablet 5 mg PO HS Qty: 0 RF: 0 Mouthwash [Biotene Mouthwash] Mucous Membrane BID PRN PRNQty: 0 RF: 0 Medical Decision Making <Marin Campbell MD - Last Filed: 10/12/18 07:36> 78-year-old female presents from home via EMS complaining of the gradual onset yesterday evening of left-sided abdominal pain. She has home health visits and last night a Johnson catheter was placed and the report was of urine sent to laboratory. Of note, patient recently suffered a T12 compression fracture was admitted to the hospital early in September. During that time she did have a CT scan performed on September 24 was notable for question of colitis. Today, differential diagnosis would include recurrent colitis, bowel obstruction, constipation. Patient IV access established, referred for laboratory testing, urinalysis, uninfused CT scan with oral contrast. Reviewed her recent records including urinalysis from October 12. This reveals positive nitrites, trace leuk esterase, 20-50 white blood cells with rare epithelial cells. Consistent with acute urinary tract infection. Labs otherwise notable for mild hyponatremia of 131 and hypomagnesemia of 1.7. Magnesium supplemented in the ED. Patient awaits CT scan at time of change of shift. Please see Dr. Bailey's note regarding details of her diagnostic imaging. <Ammy Bailey DO - Last Filed: 10/12/18 11:12> Please see Dr. Campbell's note for initial presentation, exam and plan. Patient is a 78-year-old female with a history of bowel perforation status post colon resection in June 2018, chronic lower back pain due to lumbar compression fracture, and frequent recent hospital admissions due to ongoing issues related to generalized weakness, dehydration, colitis, back pain who presents with lower abdominal pain since last night. She has had intermittent lower abdominal pain for several months but states this became much more severe last night. states she left rehab 1 week ago due to not being happy there with the food and the care. states she had been doing well when she went home 1 week ago, but has been eating less and become generally more weak since then over the past few days. He states he is unable to care for at home due to her increasing weakness. Home health comes to the house every other day, and they last came last night for Johnson catheter placement for urinary retention. She has had ongoing urinary retention requiring intermittent straight catheterization. Urinalysis result from last night noted that patient has a UTI. Patient denies fever, vomiting or diarrhea. She does admit to loose dark brown to black stools but states this is no different than usual and she is taking iron. She denies any bright red blood in stool. Plan upon endorsement was to follow-up on labs and imaging. Labs reviewed and note a white blood cell count of 11, hemoglobin of 10.5 which is close to her baseline. Potassium 3.3. Troponin negative. Lipase negative. CT notes a severe colitis in the sigmoid colon but no evidence of abscess, obstruction or perforation. Results discussed with patient and . Patient is extremely sleepy. She is hemodynamically stable. She has dry mucous membranes. Her abdomen is soft and mild to moderately tender in the lower abdomen. She was given 1 dose of morphine on arrival to ED. states that she did not sleep at all overnight due to her pain. states he is unable to care for at home at this time due to her significant weakness. Will admit patient for IV fluids, IV antibiotics, and physical therapy. states he would not want patient to return to rehab. 1000 --discussed with hospitalist - as patient has been followed by surgery in the past, recommended called to general surgery regarding colitis. Discussed with Dr. Gonzalez and she does not see any acute indication for intervention. Hospitalist accepts patient for admission. Dose of Cipro and Flagyl IV given. Patient had been on Cipro and Flagyl earlier this month for colitis. She last was on antibiotics 1 week ago. We will also obtain a stool culture if able to check for C. difficile. Medical Records Medical records reviewed: Yes I reviewed the patient's medical records. Imaging Data Radiologic Study: Radiologist's impression: ABDOMEN AND PELVIC CT: CT examination of the abdomen and pelvis was performed with oral contrast only due to reported contrast allergy. Note is made of a T 12 compression deformity as seen on previous examinations. Images obtained through the lung bases are unremarkable. Liver and spleen appear normal by noncontrast criteria. Gallbladder and bile ducts are CT normal. Pancreas is unremarkable in appearance. Adrenals appear normal. Presumed bilateral renal cortical cysts noted. No gross abdominal or pelvic adenopathy is seen. Surgical clips noted in the left lower quadrant abdominal wall. Left fat containing inguinal hernia noted. Appendix not specifically visualized but no evidence of appendicitis. No evidence of bowel obstruction. There is marked wall thickening of the sigmoid colon. There is a small quantity of free fluid in the pelvis. No gross perforation identified. No gross abscess formation identified. Anastomotic sutures noted at the distal sigmoid. CONCLUSION: Marked wall thickening of sigmoid and rectosigmoid junction, the findings are much more prominent than previous examination of 09/24/2018 and are consistent with a severe localized colitis. No gross evidence of perforation or abscess at this time. No evidence of obstruction. Lab Data Lab results reviewed: Yes I reviewed the patient's lab results. Laboratory Tests Range/Units 10/12/18 10/12/18 10/12/18 06:09 06:09 06:14 WBC (4.4-10.8) k/cumm 11.66 H RBC (4.00-5.20) m/cumm 3.78 L Hgb (12.0-15.5) g/dL 10.5 L Hct (36.0-46.0) % 32.6 L MCV (80-95) fL 86.2 MCH (27.0-33.0) pg 27.8 MCHC (32.0-36.0) g/dL 32.2 RDW (11.7-14.6) % 17.7 H Plt Count (130-400) x1000/uL 267 MPV (8.0-11.0) fL 9.3 Immature Gran % 0.2 Neutrophils % 71.0 Lymphocytes % 10.7 Monocytes % 17.2 Eosinophils % 0.7 Basophils % 0.2 Absolute Neutrophils (1.2-6.7) k/cumm 8.28 H Absolute Lymphocytes (1.2-3.4) k/cumm 1.25 Absolute Monocytes (0.11-0.7) k/cumm 2.01 H Absolute Eosinophils (0.0-0.7) k/cumm 0.08 Absolute Basophils (0.0-0.2) k/cumm 0.02 Sodium (136-145) mmol/L 131 L Potassium (3.5-5.1) mmol/L 3.3 L Chloride (98-107) mmol/L 93 L Carbon Dioxide (21.0-32.0) mmol/L 27.5 Anion Gap (3-11) mmol/L 10.5 BUN (7-18) mg/dL 13 Creatinine (0.55-1.02) mg/dL 0.88 Estimated GFR/1.73 m2 (mL/min/1.73m2) >= 60.00 Glucose (70-100) mg/dL 105 H Calcium (8.5-10.1) mg/dL 8.1 L Magnesium (1.8-2.4) mg/dL 1.7 L Total Bilirubin (0.2-1.0) mg/dL 0.4 AST (15-37) U/L 16 ALT (12-78) U/L 17 Alkaline Phosphatase (46-116) U/L 94 Troponin I (0.00-0.06) ng/mL < 0.02 Total Protein (6.4-8.2) g/dL 6.6 Albumin (3.4-5.0) g/dL 2.4 L Lipase (73-393) U/L 38 L Urine Color Cancelled Urine Clarity Cancelled Urine pH Cancelled Ur Specific [place] Cancelled Urine Protein Cancelled Urine Ketones Cancelled Urine Blood Cancelled Urine Nitrite Cancelled Urine Bilirubin Cancelled Urine Urobilinogen Cancelled Ur Leukocyte Esterase Cancelled Urine Glucose Cancelled HPI <Marin Campbell MD - Last Filed: 10/12/18 07:36> General Mode of arrival: EMS. Date/Time Provider Initiated Documentation: 10/12/18 06:11. Limitations to Documentation: no limitations. Information obtained by: patient and EMS. History of Present Illness 78 year old F presents to the emergency department with the chief complaint of Left-sided abdominal pain times hours, described as moderate, Quality is described as aching, dull and constant, and is localized to the abdomen and left. Patient reports no radiation. Patient started experiencing this hour(s) and it has been constant. No relieving factors improve symptom(s), No exacerbating factors reported . Patient notes denies fever/chills and nausea/vomiting. Patient did receive the following treatments prior to arrival, none Related Data Home Medications Medication Instructions Recorded Confirmed aspirin [Aspirin Low Dose] 81 mg PO DAILY tab-cap 12/20/12 10/12/18 folic acid 1 mg PO DAILY #90 tab-cap 08/27/17 10/12/18 pyridoxine (vitamin B6) 25 mg 25 mg PO DAILY 05/19/18 10/12/18 tablet isoniazid 300 mg tablet 300 mg PO DAILY 06/14/18 10/12/18 bupropion HCl XL 300 mg 24 hr 300 mg PO QAM #90 tab 07/22/18 10/12/18 tablet, extended release clotrimazole 45 g TOPICAL BID 07/30/18 10/12/18 nystatin 60 g TOPICAL DAILY 07/30/18 10/12/18 bupropion HCl XL 150 mg 24 hr 150 mg PO QAM 08/02/18 10/12/18 tablet, extended release calcium carbonate-vitamin D3 600 1 tab PO DAILY tab 08/02/18 10/12/18 mg (1,500 mg)-800 unit tablet multivitamin tablet 1 tab PO BID tab 08/06/18 10/12/18 levothyroxine 125 mcg capsule 125 mcg PO DAILY #30 cap 08/23/18 10/12/18 mirtazapine 7.5 mg tablet 7.5 mg PO HS #90 tab-cap 08/30/18 10/12/18 ferrous gluconate 324 mg (38 mg 324 mg PO DAILY PRN #90 tab 08/31/18 10/12/18 iron) tablet furosemide 20 mg tablet 40 mg PO DAILY tab 08/31/18 10/12/18 Mouthwash [Biotene Mouthwash] 0 ml MUCOUS MEMBRANE BID PRN PRN #0 09/22/18 10/12/18 amlodipine 5 mg PO DAILY #0 tab 09/22/18 10/12/18 docusate sodium [Colace] 100 mg PO BID #0 cap 09/22/18 10/12/18 lidocaine [Lidoderm] 1 patch TOPICAL DAILY #0 ea 09/22/18 10/12/18 magnesium chloride [Mag 64] 64 mg PO BID #0 tab 09/22/18 10/12/18 melatonin 6 mg PO HS #0 tab 09/22/18 10/12/18 methylprednisolone [Medrol] 10 mg PO QAM #0 tab 09/22/18 10/12/18 methylprednisolone [Medrol] See Rx Instructions .ROUTE 09/22/18 10/12/18 .COMPLEX #7 tab potassium chloride [Klor-Con M20] 40 meq PO BID #0 tab 09/22/18 10/12/18 tramadol 50 mg PO Q6H PRN PRN #0 tab 09/22/18 10/12/18 zolpidem 5 mg PO HS #0 tab 09/22/18 10/12/18 Previous Rx's Medication Instructions Recorded folic acid 1 mg PO DAILY #90 tab-cap 08/27/17 bupropion HCl XL 300 mg 24 hr 300 mg PO QAM #90 tab 07/22/18 tablet, extended release levothyroxine 125 mcg capsule 125 mcg PO DAILY #30 cap 08/23/18 mirtazapine 7.5 mg tablet 7.5 mg PO HS #90 tab-cap 08/30/18 ferrous gluconate 324 mg (38 mg 324 mg PO DAILY PRN #90 tab 08/31/18 iron) tablet Mouthwash [Biotene Mouthwash] 0 ml MUCOUS MEMBRANE BID PRN PRN #0 09/22/18 amlodipine 5 mg PO DAILY #0 tab 09/22/18 docusate sodium [Colace] 100 mg PO BID #0 cap 09/22/18 lidocaine [Lidoderm] 1 patch TOPICAL DAILY #0 ea 09/22/18 magnesium chloride [Mag 64] 64 mg PO BID #0 tab 09/22/18 melatonin 6 mg PO HS #0 tab 09/22/18 methylprednisolone [Medrol] 10 mg PO QAM #0 tab 09/22/18 methylprednisolone [Medrol] See Rx Instructions .ROUTE 09/22/18 .COMPLEX #7 tab potassium chloride [Klor-Con M20] 40 meq PO BID #0 tab 09/22/18 tramadol 50 mg PO Q6H PRN PRN #0 tab 09/22/18 zolpidem 5 mg PO HS #0 tab 09/22/18 Allergies Allergy/AdvReac Type Severity Reaction Status Date / Time banana Allergy Intermediate Other (See Unverified 10/12/18 05:56 Comment) cucumber Allergy Intermediate Other (See Unverified 10/12/18 05:56 Comment) Iodinated Contrast- Oral and Allergy Unknown SWELLING; Unverified 10/12/18 05:56 IV Dye RASH [Iodinated Contrast Media - IV Dye] chloramphenicol AdvReac Severe KIDNEY Unverified 10/12/18 05:56 FAILURE tetracycline AdvReac Severe KIDNEY Unverified 10/12/18 05:56 FAILURE melon AdvReac Intermediate Cantaloupe-Abd Verified 10/12/18 05:56 pain, diarrhea ADHESIVE TAPE Allergy Intermediate takes skin Uncoded 10/12/18 05:56 off SUTURE MATERIAL Allergy Intermediate Purluent Uncoded 10/12/18 05:56 Drainage General Stated Complaint: Abd Prob JOSHUA: 3 Review of Systems <Marin Campbell MD - Last Filed: 10/12/18 07:36> Review of Systems Patient states she feels constipated. No change from Johnson placed at home last night by home health. 8 systems reviewed and otherwise negative PFSH <Marin Campbell MD - Last Filed: 10/12/18 07:36> Medical History Leukocytosis (Chronic) Hypokalemia (Acute) Primary osteoarthritis of left knee (Acute 07/30/15) PMR (polymyalgia rheumatica) (Chronic 01/15/16) Osteoporosis (Acute) Osteopenia (Acute 07/30/16) Obstructive sleep apnea syndrome (Acute) Memory impairment (Chronic 06/18/94) Increased body mass index (Acute) Hypothyroidism (Acute 04/05/12) Excessive sweating (Acute 06/02/16) Depressive disorder (Chronic) Insomnia (Acute) Tuberculosis (Chronic) Surgical History H/O dilation and curettage (Acute) S/P tonsillectomy (Acute) Abdominal hysterectomy (~1975) Appendectomy Bilateral salpingectomy with oophorectomy (~1975) Colonoscopy - MAC EGD - MAC (~2003) Laparoscopic, Ovarian Cystectomy Rotator Cuff Repair Family History Mother Heart disease Pneumonia Father Stroke Personal history of malignant neoplasm Heart disease Brother Alcohol abuse Cirrhosis with alcoholism Grandfather Essential hypertension Heart disease Grandmother Personal history of malignant neoplasm Stroke Grandmother Personal history of malignant neoplasm Son Alcohol abuse Social History Smoking/Tobacco Use Status: Never Alcohol Intake: never Drug use: Never Substance use type: does not use Household members: other 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 Pleasant, well groomed, interactive. HEAD: Normocephalic, atraumatic ENT: Mucous membranes dry, oropharynx unremarkable, External ear exam unremarkable EYES: PERRL, EOMI NECK: Full ROM, no KATE, no menigismus. Back: Nontender CHEST/RESP: Nontender, clear to auscultation bilateral, no wheeze/rhonchi/rales CARDIOVASCULAR: RRR, no murmur, rub aryan. 2+ Rad pulse bilateral ABDOMEN: Soft, mildly distended and mildly diffusely tender without rebound or guarding, no mass. +Bowel sounds. Johnson catheter in place EXT: Full ROM, no edema, no rash Neuro: Grossly normal neurologic exam, conversant, interactive. Psych: Speech fluent, thoughts congruent, affect normal Course <Marin Campbell MD - Last Filed: 10/12/18 07:36> Vital Signs Temperature 36.7 C 10/12/18 05:54 Pulse 89 10/12/18 05:54 Respiratory Rate 18 10/12/18 05:54 Blood Pressure 129/62 10/12/18 05:54 Pulse Oximetry 97 10/12/18 05:54 Temperature 36.7 C 10/12/18 05:54 Temperature Source Temporal Artery Scan 10/12/18 05:54 Pulse 89 10/12/18 05:54 Respiratory Rate 18 10/12/18 05:54 Respiratory Effort 10/12/18 05:54 Blood Pressure 129/62 10/12/18 05:54 Pulse Oximetry 97 10/12/18 05:54 Oxygen Delivery Method Room Air 10/12/18 05:54 Oxygen Flow Rate 0 10/12/18 05:54 Pain Level 10 10/12/18 05:54 Sign Out <Marin Campbell MD - Last Filed: 10/12/18 07:36> Sign Out Data: Sign Out Comment: Followup CT results Last updated by Marin Campbell MD at 10/12/18 07:46
[2018-10-12 06:17] LABS: Abs Immature Grans 0.02 k/cumm (0.0-0.09); Absolute Basophil Count 0.02 k/cumm (0.0-0.2); Absolute Eosinophil Count 0.08 k/cumm (0.0-0.7); Absolute Lymphocyte Count 1.25 k/cumm (1.2-3.4); Absolute Monocyte Count 2.01 k/cumm (0.11-0.7); Absolute Neutrophil Count 8.28 k/cumm (1.2-6.7); Basophils % 0.2; Eosinophils % 0.7; HCT 32.6 % (36.0-46.0); HGB 10.5 g/dL (12.0-15.5); Immature Grans % 0.2; Lymphocytes % 10.7; Mean Corp. HGB Concentration 32.2 g/dL (32.0-36.0); Mean Corpuscular Hemoglobin 27.8 pg (27.0-33.0); Mean Corpuscular Volume 86.2 fL (80-95); Mean Platelet Volume 9.3 fL (8.0-11.0); Monocytes % 17.2; Platelet Count 267 x1000/uL (130-400); RBC 3.78 m/cumm (4.00-5.20); RBC Distribution Width 17.7 % (11.7-14.6); White Blood Cell Count 11.66 k/cumm (4.4-10.8)
[2018-10-12] MEDS: Normal Saline 1,000 ML 125 ML IV ×2 (06:18→17:59)
[2018-10-12] MEDS: MORPHine 10 MG/ML VIAL 4 MG IVP (06:28)
[2018-10-12 06:38] LABS: ALT 17 U/L (12-78); AST 16 U/L (15-37); Albumin 2.4 g/dL (3.4-5.0); Alkaline Phosphatase 94 U/L (46-116); Anion Gap 10.5 mmol/L (3-11); BUN 13 mg/dL (7-18); Bilirubin, Total 0.4 mg/dL (0.2-1.0); CO2 27.5 mmol/L (21.0-32.0); CREATININE 0.88 mg/dL (0.55-1.02); Calcium 8.1 mg/dL (8.5-10.1); Chloride 93 mmol/L (98-107); Glucose 105 mg/dL (70-100); Lipase 38 U/L (73-393); Magnesium 1.7 mg/dL (1.8-2.4); Potassium 3.3 mmol/L (3.5-5.1); Sodium 131 mmol/L (136-145); Total Protein 6.6 g/dL (6.4-8.2)
[2018-10-12 06:43] LABS: Troponin I < 0.02 ng/mL (0.00-0.06)
[2018-10-12] MEDS: Normal Saline 1,000 ML 500 ML IV (07:00)
[2018-10-12] MEDS: MAGNESIUM SULFATE 1 GM/100 ML BAG IVPB (07:15)
--- NOTE | 2018-10-12 08:50 | DI.CT_ITS ---
SYMPTOM/DIAGNOSIS: LLQ PAIN, RECENT H/O COLITIS ABDOMEN AND PELVIC CT: CT examination of the abdomen and pelvis was performed with oral contrast only due to reported contrast allergy. Note is made of a T 12 compression deformity as seen on previous examinations. Images obtained through the lung bases are unremarkable. Liver and spleen appear normal by noncontrast criteria. Gallbladder and bile ducts are CT normal. Pancreas is unremarkable in appearance. Adrenals appear normal. Presumed bilateral renal cortical cysts noted. No gross abdominal or pelvic adenopathy is seen. Surgical clips noted in the left lower quadrant abdominal wall. Left fat containing inguinal hernia noted. Appendix not specifically visualized but no evidence of appendicitis. No evidence of bowel obstruction. There is marked wall thickening of the sigmoid colon. There is a small quantity of free fluid in the pelvis. No gross perforation identified. No gross abscess formation identified. Anastomotic sutures noted at the distal sigmoid. CONCLUSION: Marked wall thickening of sigmoid and rectosigmoid junction, the findings are much more prominent than previous examination of 09/24/2018 and are consistent with a severe localized colitis. No gross evidence of perforation or abscess at this time. No evidence of obstruction.
--- NOTE | 2018-10-12 09:04 | NUR.NOTE ---
Fire Marshal received pertinent report from Lawanda SIMENTAL and assumes care of Cristal Kaleb at this time.Nursing Note:
[2018-10-12] MEDS: Normal Saline Flush 10 ML SYR IVP ×2 (09:54→19:13)
--- NOTE | 2018-10-12 10:15 | NUR.NOTE ---
Ms Manuel arrived to [facility] with indwelling urinary catheter. Per report, catheter was placed 10/11 ~2299 by the on-call Visiting Nurse because of c/o abdominal pain. reports Pat was unable to urinate and that about one liter urine came out. Lower abdominal pain continued and called the ambulance for Pat ~0530 today. Nursing Note:
[2018-10-12] MEDS: CIPROFLOXACIN 400 MG/200 ML BAG 200 MG IVPB ×2 (10:42→21:29)
[2018-10-12] MEDS: metroNIDAZOLE 500 MG/100 ML BAG 100 MG IVPB ×2 (12:16→20:15)
[2018-10-12] MEDS: Heparin 5,000 UNITS/ML VIAL 5000 UNITS SC ×2 (16:26→23:15)
--- NOTE | 2018-10-12 16:29 | PT.INIE ---
Date of service: 10/12/18 Time of Service: 14:09 PT Notes Inpatient Physical Therapy Evaluation Date: 10/12/2018 Referring Doctor: Mena Lugo MD PT Orders: PT CONSULT: Eval and treat Precautions: Fall. Standard. Patient Profile/Admitting Diagnosis: Orders received for this 78-year-old patient who presented to the ER today for left-sided abdominal pain, decreased appetite, and weakness. Patient was subsequently admitted to [facility] with diagnosis of acute colitis, urinary tract infection, and failure to thrive. Patient recently received inpatient physical therapy services at this hospital from 09/12/18 through 09/21/18 during which time patient patient was prescribed with a a cruciform anterior spinal hyperextension (DEWEY) orthosis to manage her back pain from T12 compression fracture. She was discontinued from inpatient rehabilitation to a prison facility at the [facility] on 09/24/2018 where she continued to receive functional mobility training and was discontinued to home with Home health referral a week ago. PMHX: Medical History Raynaud's disease (Acute) Primary osteoarthritis of left knee (Acute 07/30/15) PMR (polymyalgia rheumatica) (Chronic 01/15/16) Osteoporosis (Acute) Osteopenia (Acute 07/30/16) Obstructive sleep apnea syndrome (Acute) Non-alcoholic fatty liver disease (Acute) Memory impairment (Acute 06/18/94) Increased body mass index (Acute) Hypothyroidism (Acute 04/05/12) Fracture, calcaneus closed (Acute 09/19/14) Excessive sweating (Acute 06/02/16) Depressive disorder (Acute) Colon polyp (Acute 06/28/18) Cataract (Acute 07/28/14) Benign paroxysmal positional vertigo (Acute) Abdominal pain (Acute 10/31/13) Insomnia (Acute) Tuberculosis (Chronic) Surgical History H/O dilation and curettage (Acute) S/P tonsillectomy (Acute) Abdominal hysterectomy (~1975) Appendectomy Bilateral salpingectomy with oophorectomy (~1975) Colonoscopy - MAC EGD - MAC (~2003) Laparoscopic, Ovarian Cystectomy Rotator Cuff Repair Social History/Home Situation: Patient lives with her at in a 2-floor house with 4 steps to enter, rails on both sides. did emphasize that patient does not need to go to the second floor of the house as they have converted the living room to be her bedroom and her has been staying on the room next to the living room so he can be available every time her his needs him. denies any falls since going back home from the SNF a week ago. Equipment Owned/DME: Patient has a 4-wheeled walker, bedside commode, electric recliner, a bench Subjective: Patient complained continues to complain of abdominal pain. She is agreeable though to a physical therapy evaluation and treatment. Her came in towards the beginning of the evaluation and stated that was able to slowly get in and out of a car, manage 4 steps while holding onto bilateral rails with her steadying her, slowly walked 15-20 steps when they went home a week ago inside the house. He further stated that patient did not fall while at home. Objective: Patient seen resting in bed with TRUCKLOAD CHECKER providing sofi-care. IV in the right UE. Johnson catheter on. Mental Status: Alert and oriented as to person and place but required maximal cueing to initiate and complete tasks Pain: Complained of moderate pain in the abdominal area. Reported moderate discomfort in the low back area while attempting to sit up and stand up. ROM: Right Upper Extremity: WFL Left Upper Extremity: WFL Right Lower Extremity: WFL Left Lower Extremity: WFL Trunk: Patient is able to sit up with head of bed elevated to 55 degrees with the least amount of pain on the back . Patient is able to allow trunk flexion of up to about 20 degrees to facilitate sit to stand movement transitions. No further testing was done due to limitation placed by pain. Strength: Right Upper Extremity: WFL Left Upper Extremity: WFL Right Lower Extremity: Hip flexors 3+/5. Hip abductors 3+/5. Knee flexors 4-/5. Knee extensors 4-/5. Ankle dorsiflexors 3+/5. Left Lower Extremity: Hip flexors 3+/5. Hip abductors 3+/5. Knee flexors 4-/5. Knee extensors 4-/5. Ankle dorsiflexors 3+/5. Bed Mobility/Transfers: Rolling mod A Supine to sit max A Sit to supine max A Sit to stand mod A Stand to sit mod A Bed to chair mod a Chair to bed mod A Gait: Patient was able to tolerate level surface ambulation inside her room using front-wheeled walker with full weightbearing on BUE/LE with minimal assist given for 10 feet x2. Patient initially presented with shuffling and required moderate to maximum verbal verbal and tactile cueing to increase step height and length as well as to correctly place BUE for safety. Balance: Static Sitting: Good Dynamic Sitting: Good Static Standing: Fair Dynamic Standing: Fair Special Tests: Mobility Limitations Standardized Measure [facility]-PAC 6 clicks Basic Mobility Inpatient Short Form: Raw Score: 11 CMS Score: 73% deficit Informed Consent/Education: Patient instructed in purpose of PT consult and plan of care. ASSESSMENT: Assessment: Patient is a 78 year old female referred to physical therapy services with the diagnosis of acute colitis, urinary tract infection, failure to thrive, and chronic low back pain.. Patient presents with clinical signs and symptoms consistent with current/admitting diagnoses that has resulted to mobility limitations, gait instability, generalized weakness, and lack of motor control as demonstrated by the following impairment level findings: 1. Decreased strength to B LE major muscle groups 2. Impaired balance 3. Impaired activity tolerance 4. Limitation of joint range of motion in trunk Impairments are contributing to the following functional limitations: 1. Dependent bed mobility skills 2. Increased dependence with transfers 3. Inability to safely ambulate without assistive device and physical assistance 4. Increase completion time for mobility ADL performance 5. Increased fall risk 6. Inability to negotiate steps alone safely Patient is assessed as a Moderate complexity initial evaluation 35838 based on the following: History: Patient is a 78-year-old female with diagnosis of acute colitis, urinary tract infection, and failure to thrive with co-morbidities and past medical history as noted above Examination: Underlying impairments and functional limitations as noted above Presentation: Evolving Decision Making: Moderate complexity 87071 with an [facility] raw score/CMS score as indicated above Goals X1 week 1. Supine-Sit independent 2. Sit-Supine independent 3. Sit-Stand independent 4. Stand-Sit independent 5. Bed-Chair independent 6. Chair-Bed independent 7. Gait on level surface ambulation with use of least restrictive device for at least 300 feet without report of pain nor dyspnea 8. Stairs independent while holding onto bilateral rails for at least 5 steps without report of pain nor dyspnea 9. Independent with home exercise program 10. Balance good for static and dynamic standing Plan of Care/Treatment Plan: 1-2x/day, 7 days/week x 1 week. Plan of care has been reviewed with the SENIOR SQL DBA providing the service under Physical Therapy direction. Initiate Physical Therapy intervention for strengthening, bed mobility, transfers, gait, stairs, balance training, use of assistive device. DISCHARGE RECOMMENDATIONS: Patient will highly benefit from prison facility placement to regain safest functional mobility level with subsequent referral to home health PT services in order to assess for home safety, continue with /caregiver education and training with mobility task assistance, assess for additional safety equipment at home. TREATMENT CODE/TIME: 20345 25 minutes, 67887 25 minutes, 50611 16 minutes, beginning at 14:09 PM. Thank you for this referral. Marley Patel, PT, DPT, CLT [facility]
--- NOTE | 2018-10-12 16:34 | IN_ITS ---
Date of service: 10/12/18 Time of Service: 14:09 PT Notes Inpatient Physical Therapy Evaluation Date: 10/12/2018 Referring Doctor: Mena Lugo MD PT Orders: PT CONSULT: Eval and treat Precautions: Fall. Standard. Patient Profile/Admitting Diagnosis: Orders received for this 78-year-old patient who presented to the ER today for left-sided abdominal pain, decreased appetite, and weakness. Patient was subsequently admitted to [facility] with diagnosis of acute colitis, urinary tract infection, and failure to thrive. Patient recently received inpatient physical therapy services at this hospital from 09/12/18 through 09/21/18 during which time patient patient was prescribed with a a cruciform anterior spinal hyperextension (DEWEY) orthosis to manage her back pain from T12 compression fracture. She was discontinued from inpatient rehabilitation to a longterm facility at the [facility] on 09/24/2018 where she continued to receive functional mobility training and was discontinued to home with Home health referral a week ago. PMHX: Medical History Raynaud's disease (Acute) Primary osteoarthritis of left knee (Acute 07/30/15) PMR (polymyalgia rheumatica) (Chronic 01/15/16) Osteoporosis (Acute) Osteopenia (Acute 07/30/16) Obstructive sleep apnea syndrome (Acute) Non-alcoholic fatty liver disease (Acute) Memory impairment (Acute 06/18/94) Increased body mass index (Acute) Hypothyroidism (Acute 04/05/12) Fracture, calcaneus closed (Acute 09/19/14) Excessive sweating (Acute 06/02/16) Depressive disorder (Acute) Colon polyp (Acute 06/28/18) Cataract (Acute 07/28/14) Benign paroxysmal positional vertigo (Acute) Abdominal pain (Acute 10/31/13) Insomnia (Acute) Tuberculosis (Chronic) Surgical History H/O dilation and curettage (Acute) S/P tonsillectomy (Acute) Abdominal hysterectomy (~1975) Appendectomy Bilateral salpingectomy with oophorectomy (~1975) Colonoscopy - MAC EGD - MAC (~2003) Laparoscopic, Ovarian Cystectomy Rotator Cuff Repair Social History/Home Situation: Patient lives with her at in a 2-floor house with 4 steps to enter, rails on both sides. did emphasize that patient does not need to go to the second floor of the house as they have converted the living room to be her bedroom and her has been staying on the room next to the living room so he can be available every time her his needs him. denies any falls since going back home from the SNF a week ago. Equipment Owned/DME: Patient has a 4-wheeled walker, bedside commode, electric recliner, a bench Subjective: Patient complained continues to complain of abdominal pain. She is agreeable though to a physical therapy evaluation and treatment. Her came in towards the beginning of the evaluation and stated that was able to slowly get in and out of a car, manage 4 steps while holding onto bilateral rails with her steadying her, slowly walked 15-20 steps when they went home a week ago inside the house. He further stated that patient did not fall while at home. Objective: Patient seen resting in bed with DISTRICT ENGINEER providing sofi-care. IV in the right UE. Johnson catheter on. Mental Status: Alert and oriented as to person and place but required maximal cueing to initiate and complete tasks Pain: Complained of moderate pain in the abdominal area. Reported moderate discomfort in the low back area while attempting to sit up and stand up. ROM: Right Upper Extremity: WFL Left Upper Extremity: WFL Right Lower Extremity: WFL Left Lower Extremity: WFL Trunk: Patient is able to sit up with head of bed elevated to 55 degrees with the least amount of pain on the back . Patient is able to allow trunk flexion of up to about 20 degrees to facilitate sit to stand movement transitions. No further testing was done due to limitation placed by pain. Strength: Right Upper Extremity: WFL Left Upper Extremity: WFL Right Lower Extremity: Hip flexors 3+/5. Hip abductors 3+/5. Knee flexors 4- /5. Knee extensors 4-/5. Ankle dorsiflexors 3+/5. Left Lower Extremity: Hip flexors 3+/5. Hip abductors 3+/5. Knee flexors 4- /5. Knee extensors 4-/5. Ankle dorsiflexors 3+/5. Bed Mobility/Transfers: Rolling mod A Supine to sit max A Sit to supine max A Sit to stand mod A Stand to sit mod A Bed to chair mod a Chair to bed mod A Gait: Patient was able to tolerate level surface ambulation inside her room using front-wheeled walker with full weightbearing on BUE/LE with minimal assist given for 10 feet x2. Patient initially presented with shuffling and required moderate to maximum verbal verbal and tactile cueing to increase step height and length as well as to correctly place BUE for safety. Balance: Static Sitting: Good Dynamic Sitting: Good Static Standing: Fair Dynamic Standing: Fair Special Tests: Mobility Limitations Standardized Measure [facility]-PAC 6 clicks Basic Mobility Inpatient Short Form: Raw Score: 11 CMS Score: 73% deficit Informed Consent/Education: Patient instructed in purpose of PT consult and plan of care. ASSESSMENT: Assessment: Patient is a 78 year old female referred to physical therapy services with the diagnosis of acute colitis, urinary tract infection, failure to thrive, and chronic low back pain.. Patient presents with clinical signs and symptoms consistent with current/admitting diagnoses that has resulted to mobility limitations, gait instability, generalized weakness, and lack of motor control as demonstrated by the following impairment level findings: 1. Decreased strength to B LE major muscle groups 2. Impaired balance 3. Impaired activity tolerance 4. Limitation of joint range of motion in trunk Impairments are contributing to the following functional limitations: 1. Dependent bed mobility skills 2. Increased dependence with transfers 3. Inability to safely ambulate without assistive device and physical assistance 4. Increase completion time for mobility ADL performance 5. Increased fall risk 6. Inability to negotiate steps alone safely Patient is assessed as a Moderate complexity initial evaluation 89492 based on the following: History: Patient is a 78-year-old female with diagnosis of acute colitis, urinary tract infection, and failure to thrive with co-morbidities and past medical history as noted above Examination: Underlying impairments and functional limitations as noted above Presentation: Evolving Decision Making: Moderate complexity 61896 with an [facility] raw score/CMS score as indicated above Goals X1 week 1. Supine-Sit independent 2. Sit-Supine independent 3. Sit-Stand independent 4. Stand-Sit independent 5. Bed-Chair independent 6. Chair-Bed independent 7. Gait on level surface ambulation with use of least restrictive device for at least 300 feet without report of pain nor dyspnea 8. Stairs independent while holding onto bilateral rails for at least 5 steps without report of pain nor dyspnea 9. Independent with home exercise program 10. Balance good for static and dynamic standing Plan of Care/Treatment Plan: 1-2x/day, 7 days/week x 1 week. Plan of care has been reviewed with the SEISMOMETER OPERATOR providing the service under Physical Therapy direction. Initiate Physical Therapy intervention for strengthening, bed mobility, transfers, gait, stairs, balance training, use of assistive device. DISCHARGE RECOMMENDATIONS: Patient will highly benefit from longterm facility placement to regain safest functional mobility level with subsequent referral to home health PT services in order to assess for home safety, continue with /caregiver education and training with mobility task assistance, assess for additional safety equipment at home. TREATMENT CODE/TIME: 03640 25 minutes, 07884 25 minutes, 33886 16 minutes, beginning at 14:09 PM. Thank you for this referral. Marley Patel, PT, DPT, CLT [facility]
--- NOTE | 2018-10-12 17:23 | PT.INIE ---
Date of service: 10/12/18 Time of Service: 14:09 PT Notes Inpatient Physical Therapy Evaluation Date: 10/12/2018 Referring Doctor: Mena Lugo MD PT Orders: PT CONSULT: Eval and treat Precautions: Fall. Standard. Patient Profile/Admitting Diagnosis: Orders received for this 78-year-old patient who presented to the ER today for left-sided abdominal pain, decreased appetite, and weakness. Patient was subsequently admitted to [facility] with diagnosis of acute colitis, urinary tract infection, and failure to thrive. Patient recently received inpatient physical therapy services at this hospital from 09/12/18 through 09/21/18 during which time patient patient was prescribed with a a cruciform anterior spinal hyperextension (DEWEY) orthosis to manage her back pain from T12 compression fracture. She was discontinued from inpatient rehabilitation to a shelter facility at the [facility] on 09/24/2018 where she continued to receive functional mobility training and was discontinued to home with Home health referral a week ago. PMHX: Medical History Raynaud's disease (Acute) Primary osteoarthritis of left knee (Acute 07/30/15) PMR (polymyalgia rheumatica) (Chronic 01/15/16) Osteoporosis (Acute) Osteopenia (Acute 07/30/16) Obstructive sleep apnea syndrome (Acute) Non-alcoholic fatty liver disease (Acute) Memory impairment (Acute 06/18/94) Increased body mass index (Acute) Hypothyroidism (Acute 04/05/12) Fracture, calcaneus closed (Acute 09/19/14) Excessive sweating (Acute 06/02/16) Depressive disorder (Acute) Colon polyp (Acute 06/28/18) Cataract (Acute 07/28/14) Benign paroxysmal positional vertigo (Acute) Abdominal pain (Acute 10/31/13) Insomnia (Acute) Tuberculosis (Chronic) Surgical History H/O dilation and curettage (Acute) S/P tonsillectomy (Acute) Abdominal hysterectomy (~1975) Appendectomy Bilateral salpingectomy with oophorectomy (~1975) Colonoscopy - MAC EGD - MAC (~2003) Laparoscopic, Ovarian Cystectomy Rotator Cuff Repair Social History/Home Situation: Patient lives with her in a 2-floor house with 4 steps to enter, rails on both sides. did emphasize that patient does not need to go to the second floor of the house as they have converted the living room on the first floor to be her bedroom. Her has been staying on the room next to the living room so he can be available every time his needs him. denies any falls since going back home from the SNF a week ago. Equipment Owned/DME: Patient has a 4-wheeled walker, bedside commode, electric recliner, a bench Subjective: Patient continues to complain of abdominal pain. She is agreeable though to a physical therapy evaluation and treatment. Her came in at the beginning of the evaluation and stated that at the time of discharge from the SNF, his was able to slowly get in and out of a car, managed 4 steps while holding onto bilateral rails with her steadying her, and slowly walked 15-20 steps. He further stated that patient did not fall since going home although he states that Riddhi did fall twice while at the SNF. Objective: Patient seen resting in bed with WAX MACHINE OPERATOR providing sofi-care. IV in the right UE. Johnson catheter on. Mental Status: Alert and oriented as to person and place but required maximal cueing to initiate and complete tasks Pain: Complained of moderate pain in the abdominal area. Reported moderate discomfort in the low back area while attempting to sit up and stand up. ROM: Right Upper Extremity: WFL Left Upper Extremity: WFL Right Lower Extremity: WFL Left Lower Extremity: WFL Trunk: Patient is able to sit up with head of bed elevated to 55 degrees with the least amount of pain on the back . Patient is able to allow trunk flexion of up to about 20 degrees to facilitate sit to stand movement transitions. No further testing was done due to limitation placed by pain. Strength: Right Upper Extremity: WFL Left Upper Extremity: WFL Right Lower Extremity: Hip flexors 3+/5. Hip abductors 3+/5. Knee flexors 4-/5. Knee extensors 4-/5. Ankle dorsiflexors 3+/5. Left Lower Extremity: Hip flexors 3+/5. Hip abductors 3+/5. Knee flexors 4-/5. Knee extensors 4-/5. Ankle dorsiflexors 3+/5. Bed Mobility/Transfers: Rolling mod A Supine to sit max A Sit to supine max A Sit to stand mod A Stand to sit mod A Bed to chair mod a Chair to bed mod A Gait: Patient was able to tolerate level surface ambulation inside her room using front-wheeled walker with full weightbearing on BUE/LE with minimal assist given for 10 feet x2. Patient initially presented with shuffling and required moderate to maximum verbal verbal and tactile cueing to increase step height and length as well as to correctly place BUE for safety. Balance: Static Sitting: Good Dynamic Sitting: Good Static Standing: Fair Dynamic Standing: Fair Special Tests: Mobility Limitations Standardized Measure [facility] AM-PAC 6 clicks Basic Mobility Inpatient Short Form: Raw Score: 11 CMS Score: 73% deficit Informed Consent/Education: Patient instructed in purpose of PT consult and plan of care. ASSESSMENT: Assessment: Patient is a 78 year old female referred to physical therapy services with the diagnosis of acute colitis, urinary tract infection, failure to thrive, and chronic low back pain.. Patient presents with clinical signs and symptoms consistent with current/admitting diagnoses that has resulted to mobility limitations, gait instability, generalized weakness, and lack of motor control as demonstrated by the following impairment level findings: 1. Decreased strength to B LE major muscle groups 2. Impaired balance 3. Impaired activity tolerance 4. Limitation of joint range of motion in trunk Impairments are contributing to the following functional limitations: 1. Dependent bed mobility skills 2. Increased dependence with transfers 3. Inability to safely ambulate without assistive device and physical assistance 4. Increase completion time for mobility ADL performance 5. Increased fall risk 6. Inability to negotiate steps alone safely Patient is assessed as a Moderate complexity initial evaluation 73071 based on the following: History: Patient is a 78-year-old female with diagnosis of acute colitis, urinary tract infection, and failure to thrive with co-morbidities and past medical history as noted above Examination: Underlying impairments and functional limitations as noted above Presentation: Evolving Decision Making: Moderate complexity 30751 with an [facility] raw score/CMS score as indicated above Goals X1 week 1. Supine-Sit independent 2. Sit-Supine independent 3. Sit-Stand independent 4. Stand-Sit independent 5. Bed-Chair independent 6. Chair-Bed independent 7. Gait on level surface ambulation with use of least restrictive device for at least 300 feet without report of pain nor dyspnea 8. Stairs independent while holding onto bilateral rails for at least 5 steps without report of pain nor dyspnea 9. Independent with home exercise program 10. Balance good for static and dynamic standing Plan of Care/Treatment Plan: 1-2x/day, 7 days/week x 1 week. Plan of care has been reviewed with the TAX EXPERT providing the service under Physical Therapy direction. Initiate Physical Therapy intervention for strengthening, bed mobility, transfers, gait, stairs, balance training, use of assistive device. DISCHARGE RECOMMENDATIONS: Patient will highly benefit from shelter facility placement to regain safest functional mobility level with subsequent referral to home health PT services in order to assess for home safety, continue with /caregiver education and training with mobility task assistance, assess for additional safety equipment at home. TREATMENT CODE/TIME: 68842 25 minutes, 44269 25 minutes, 23302 16 minutes, beginning at 14:09 PM. Thank you for this referral. Marley Patel, PT, DPT, CLT [facility]
--- NOTE | 2018-10-12 17:28 | IN_ITS ---
Date of service: 10/12/18 Time of Service: 14:09 PT Notes Inpatient Physical Therapy Evaluation Date: 10/12/2018 Referring Doctor: Mena Lugo MD PT Orders: PT CONSULT: Eval and treat Precautions: Fall. Standard. Patient Profile/Admitting Diagnosis: Orders received for this 78-year-old patient who presented to the ER today for left-sided abdominal pain, decreased appetite, and weakness. Patient was subsequently admitted to [facility] with diagnosis of acute colitis, urinary tract infection, and failure to thrive. Patient recently received inpatient physical therapy services at this hospital from 09/12/18 through 09/21/18 during which time patient patient was prescribed with a a cruciform anterior spinal hyperextension (DEWEY) orthosis to manage her back pain from T12 compression fracture. She was discontinued from inpatient rehabilitation to a residential facility at the [facility] on 09/24/2018 where she continued to receive functional mobility training and was discontinued to home with Home health referral a week ago. PMHX: Medical History Raynaud's disease (Acute) Primary osteoarthritis of left knee (Acute 07/30/15) PMR (polymyalgia rheumatica) (Chronic 01/15/16) Osteoporosis (Acute) Osteopenia (Acute 07/30/16) Obstructive sleep apnea syndrome (Acute) Non-alcoholic fatty liver disease (Acute) Memory impairment (Acute 06/18/94) Increased body mass index (Acute) Hypothyroidism (Acute 04/05/12) Fracture, calcaneus closed (Acute 09/19/14) Excessive sweating (Acute 06/02/16) Depressive disorder (Acute) Colon polyp (Acute 06/28/18) Cataract (Acute 07/28/14) Benign paroxysmal positional vertigo (Acute) Abdominal pain (Acute 10/31/13) Insomnia (Acute) Tuberculosis (Chronic) Surgical History H/O dilation and curettage (Acute) S/P tonsillectomy (Acute) Abdominal hysterectomy (~1975) Appendectomy Bilateral salpingectomy with oophorectomy (~1975) Colonoscopy - MAC EGD - MAC (~2003) Laparoscopic, Ovarian Cystectomy Rotator Cuff Repair Social History/Home Situation: Patient lives with her in a 2-floor house with 4 steps to enter, rails on both sides. did emphasize that patient does not need to go to the second floor of the house as they have converted the living room on the first floor to be her bedroom. Her has been staying on the room next to the living room so he can be available every time his needs him. denies any falls since going back home from the SNF a week ago. Equipment Owned/DME: Patient has a 4-wheeled walker, bedside commode, electric recliner, a bench Subjective: Patient continues to complain of abdominal pain. She is agreeable though to a physical therapy evaluation and treatment. Her came in at the beginning of the evaluation and stated that at the time of discharge from the SNF, his was able to slowly get in and out of a car, managed 4 steps while holding onto bilateral rails with her steadying her, and slowly walked 15-20 steps. He further stated that patient did not fall since going home although he states that Riddhi did fall twice while at the SNF. Objective: Patient seen resting in bed with TELEVISION OPERATOR providing sofi-care. IV in the right UE. Johnson catheter on. Mental Status: Alert and oriented as to person and place but required maximal cueing to initiate and complete tasks Pain: Complained of moderate pain in the abdominal area. Reported moderate discomfort in the low back area while attempting to sit up and stand up. ROM: Right Upper Extremity: WFL Left Upper Extremity: WFL Right Lower Extremity: WFL Left Lower Extremity: WFL Trunk: Patient is able to sit up with head of bed elevated to 55 degrees with the least amount of pain on the back . Patient is able to allow trunk flexion of up to about 20 degrees to facilitate sit to stand movement transitions. No further testing was done due to limitation placed by pain. Strength: Right Upper Extremity: WFL Left Upper Extremity: WFL Right Lower Extremity: Hip flexors 3+/5. Hip abductors 3+/5. Knee flexors 4- /5. Knee extensors 4-/5. Ankle dorsiflexors 3+/5. Left Lower Extremity: Hip flexors 3+/5. Hip abductors 3+/5. Knee flexors 4- /5. Knee extensors 4-/5. Ankle dorsiflexors 3+/5. Bed Mobility/Transfers: Rolling mod A Supine to sit max A Sit to supine max A Sit to stand mod A Stand to sit mod A Bed to chair mod a Chair to bed mod A Gait: Patient was able to tolerate level surface ambulation inside her room using front-wheeled walker with full weightbearing on BUE/LE with minimal assist given for 10 feet x2. Patient initially presented with shuffling and required moderate to maximum verbal verbal and tactile cueing to increase step height and length as well as to correctly place BUE for safety. Balance: Static Sitting: Good Dynamic Sitting: Good Static Standing: Fair Dynamic Standing: Fair Special Tests: Mobility Limitations Standardized Measure [facility] AM-PAC 6 clicks Basic Mobility Inpatient Short Form: Raw Score: 11 CMS Score: 73% deficit Informed Consent/Education: Patient instructed in purpose of PT consult and plan of care. ASSESSMENT: Assessment: Patient is a 78 year old female referred to physical therapy services with the diagnosis of acute colitis, urinary tract infection, failure to thrive, and chronic low back pain.. Patient presents with clinical signs and symptoms consistent with current/admitting diagnoses that has resulted to mobility limitations, gait instability, generalized weakness, and lack of motor control as demonstrated by the following impairment level findings: 1. Decreased strength to B LE major muscle groups 2. Impaired balance 3. Impaired activity tolerance 4. Limitation of joint range of motion in trunk Impairments are contributing to the following functional limitations: 1. Dependent bed mobility skills 2. Increased dependence with transfers 3. Inability to safely ambulate without assistive device and physical assistance 4. Increase completion time for mobility ADL performance 5. Increased fall risk 6. Inability to negotiate steps alone safely Patient is assessed as a Moderate complexity initial evaluation 67106 based on the following: History: Patient is a 78-year-old female with diagnosis of acute colitis, urinary tract infection, and failure to thrive with co-morbidities and past medical history as noted above Examination: Underlying impairments and functional limitations as noted above Presentation: Evolving Decision Making: Moderate complexity 87392 with an [facility] raw score/CMS score as indicated above Goals X1 week 1. Supine-Sit independent 2. Sit-Supine independent 3. Sit-Stand independent 4. Stand-Sit independent 5. Bed-Chair independent 6. Chair-Bed independent 7. Gait on level surface ambulation with use of least restrictive device for at least 300 feet without report of pain nor dyspnea 8. Stairs independent while holding onto bilateral rails for at least 5 steps without report of pain nor dyspnea 9. Independent with home exercise program 10. Balance good for static and dynamic standing Plan of Care/Treatment Plan: 1-2x/day, 7 days/week x 1 week. Plan of care has been reviewed with the WELL TREATMENT OFFSIDER providing the service under Physical Therapy direction. Initiate Physical Therapy intervention for strengthening, bed mobility, transfers, gait, stairs, balance training, use of assistive device. DISCHARGE RECOMMENDATIONS: Patient will highly benefit from residential facility placement to regain safest functional mobility level with subsequent referral to home health PT services in order to assess for home safety, continue with /caregiver education and training with mobility task assistance, assess for additional safety equipment at home. TREATMENT CODE/TIME: 55890 25 minutes, 14344 25 minutes, 67407 16 minutes, beginning at 14:09 PM. Thank you for this referral. Marley Patel, PT, DPT, CLT [facility]
--- NOTE | 2018-10-12 17:32 | SCONE_ITS ---
Date of service: 10/12/18 Time of Service: 17:31 Assessment and Plan (1) Colitis: Current visit: Yes Status: Acute 78 y/o female s/p sigmoid colon resection and anastomosis > 3 months ago. Findings of severe colitis in sigmoid/rectosigmoid on CT. Cipro/Flagyl started in the ED. Await C diff studies. Patient also being treated for UTI/weakness. Continue supportive care. No indication/ plans for endoscopy/surgery at this time. May have clear liquids as tolerated. Will follow-up. Seen and discussed with patient's nurse. History of Present Illness Chief Complaint: Abdominal pain Narrative: 78 y/o female admitted through the ED for abdominal pain, UTI, and weakness. Patient was recently hospitalized then sent to rehab s/p fall and verterbral fracture. She has been on chronic steroids and has a h/o adrenal insufficiency. Patient had undergone a colonoscopy and subsequent exploratory laparotomy with sigmoid colectomy and stapled end-to-end anastomosis for a perforation on 06/28/18. She has been hospitalized multiple times since then for weakness and the vertebral fracture. She has also had issues with lower abdominal pain and diarrhea and has been on a course of Cipro/Flagyl. She was last hospitalized about 2-3 weeks ago. She notes intermittent pains in the lower abdomen today. She denies nausea or vomiting. She thinks that she had a formed brown stool yesterday. She denies melena or hematochezia. She had reported dark, loose stools to the ED staff, but denies that at this time.She is oriented to place/month but confused on year. She states that her brought her to the hospital today as her abdominal pain was severe. She initially noted that she was pain free on questioning then indicated that she was having an episode of pain which passed after a few seconds. CT abd/pelvis with oral contrast today demonstrated a severe colitis at the sigmoid/ rectosigmoid juunction. Labs reviewed. She has been started on Cipro/Flagyl. Stool for C diff pending. Consults Consult date: 10/12/18 Requesting physician: Mena Lugo Review of Systems Review of Systems All systems reviewed & are unremarkable except as noted in HPI and below Gastrointestinal Reports abdominal pain, Denies constipation, Denies diarrhea, Denies nausea and Denies vomiting Genitourinary Denies difficulty voiding and Denies dysuria PFSH Medical History Leukocytosis (Chronic) Hypokalemia (Acute) Primary osteoarthritis of left knee (Acute 07/30/15) PMR (polymyalgia rheumatica) (Chronic 01/15/16) Osteoporosis (Acute) Osteopenia (Acute 07/30/16) Obstructive sleep apnea syndrome (Acute) Memory impairment (Chronic 06/18/94) Increased body mass index (Acute) Hypothyroidism (Acute 04/05/12) Excessive sweating (Acute 06/02/16) Depressive disorder (Chronic) Insomnia (Acute) Tuberculosis (Chronic) Surgical History H/O partial resection of colon (Acute) H/O dilation and curettage (Acute) S/P tonsillectomy (Acute) Abdominal hysterectomy (~1975) Appendectomy Bilateral salpingectomy with oophorectomy (~1975) Colonoscopy - MAC EGD - MAC (~2003) Laparoscopic, Ovarian Cystectomy Rotator Cuff Repair Family History Mother Heart disease Pneumonia Father Stroke Personal history of malignant neoplasm Heart disease Brother Alcohol abuse Cirrhosis with alcoholism Grandfather Essential hypertension Heart disease Grandmother Personal history of malignant neoplasm Stroke Grandmother Personal history of malignant neoplasm Son Alcohol abuse Social History Smoking/Tobacco Use Status: Former Tobacco Use Alcohol Intake: never Drug use: Never Substance use type: does not use Household members: other 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 Exam Const General: cooperative, comfortable and no acute distress Nutritional Appearance: obese Orientation: alert HENNV Head: normocephalic and atraumatic Eyes Sclera: sclerae normal Resp Effort & Inspection: normal respiratory effort and able to speak in complete sentences Auscultation: clear to auscultation bilaterally Cardio Jugular venous pressure: no JVD Rate: regular rate Rhythm: regular rhythm GI Inspection: non-distended, obesity and scar (midline scar well-healed) Palpation: soft, not firm, no guarding, no masses and tender (mild to moderately tender lower abdomen) Auscultation: normal bowel sounds Skin General skin exam: no rashes or lesions noted and no jaundice Results Last Vital Signs Temp 37.4 C 10/12/18 15:48 Pulse 80 10/12/18 15:48 Resp 17 10/12/18 15:48 BP 134/68 10/12/18 15:48 Pulse Ox 93 L 10/12/18 15:48 Labs : 10/12/18 06:09 10/12/18 06:09 Laboratory Results - last 24 hr 10/12/18 10/12/18 10/12/18 06:09 06:09 06:14 WBC 11.66 H RBC 3.78 L Hgb 10.5 L Hct 32.6 L MCV 86.2 MCH 27.8 MCHC 32.2 RDW 17.7 H Plt Count 267 MPV 9.3 Immature Gran % 0.2 Neutrophils % 71.0 Lymphocytes % 10.7 Monocytes % 17.2 Eosinophils % 0.7 Basophils % 0.2 Absolute Neutrophils 8.28 H Absolute Lymphocytes 1.25 Absolute Monocytes 2.01 H Absolute Eosinophils 0.08 Absolute Basophils 0.02 Sodium 131 L Potassium 3.3 L Chloride 93 L Carbon Dioxide 27.5 Anion Gap 10.5 BUN 13 Creatinine 0.88 Estimated GFR/1.73 m2 >= 60.00 Glucose 105 H Calcium 8.1 L Magnesium 1.7 L Total Bilirubin 0.4 AST 16 ALT 17 Alkaline Phosphatase 94 Troponin I < 0.02 Total Protein 6.6 Albumin 2.4 L Lipase 38 L Urine Color Cancelled Urine Clarity Cancelled Urine pH Cancelled Ur Specific [place] Cancelled Urine Protein Cancelled Urine Ketones Cancelled Urine Blood Cancelled Urine Nitrite Cancelled Urine Bilirubin Cancelled Urine Urobilinogen Cancelled Ur Leukocyte Esterase Cancelled Urine Glucose Cancelled Imaging Abdomen CT scan report/results: report reviewed and image reviewed CT scan - pelvis: report reviewed and image reviewed Imaging Studies: Patient Name: NATASHA JENKINS AUnit #: [id number]: MS Ordering Provider: Marin Campbell M.D. : ADM IN Primary Care Provider: Liz Granado M.D.Date of Exam: 10/12/18Sex: F : 1Age: 78 Exam(s) a CT:CT abdomen & pelvis wo SYMPTOM/DIAGNOSIS: LLQ PAIN, RECENT H/O COLITIS ABDOMEN AND PELVIC CT: CT examination of the abdomen and pelvis was performed with oral contrast only due to reported contrast allergy. Note is made of a T 12 compression deformity as seen on previous examinations. Images obtained through the lung bases are unremarkable. Liver and spleen appear normal by noncontrast criteria. Gallbladder and bile ducts are CT normal. Pancreas is unremarkable in appearance. Adrenals appear normal. Presumed bilateral renal cortical cysts noted. No gross abdominal or pelvic adenopathy is seen. Surgical clips noted in the left lower quadrant abdominal wall. Left fat containing inguinal hernia noted. Appendix not specifically visualized but no evidence of appendicitis. No evidence of bowel obstruction. There is marked wall thickening of the sigmoid colon. There is a small quantity of free fluid in the pelvis. No gross perforation identified. No gross abscess formation identified. Anastomotic sutures noted at the distal sigmoid. CONCLUSION: Marked wall thickening of sigmoid and rectosigmoid junction, the findings are much more prominent than previous examination of 09/24/2018 and are consistent with a severe localized colitis. No gross evidence of perforation or abscess at this time. No evidence of obstruction. [id number]: Total DLP = 0.00 mGy-cm Ordered By: Marin Campbell M.D. CC: Dictated By: Marin Javed M.D. 10/12/18 0857 <Electronically signed by Marin Javed M.D.> 10/12/18 1356 Transcribed By: Gala Joy 10/12/18 1033 This is privileged, confidential information intended only for the provider [facility]. Any use or distribution by any person other than this provider is strictly prohibited. If you receive this report in error, please notify us immediately at [phone] and return the original report to us at the address above. Thank- you.
[2018-10-12] MEDS: POTASSIUM CHLORIDE 20 MEQ/100 ML BAG 50 MEQ IVPB (17:59)
--- NOTE | 2018-10-12 18:03 | HPE_ITS ---
Date of service: 10/12/18 Time of Service: 17:54 Assessment and Plan (1) Colitis: Current visit: Yes Status: Acute LLQ abdominal pain. Abdominal/Pelvis CT with Marked wall thickening of sigmoid and rectosigmoid junction, the findings are much more prominent than previous examination of 09/24/2018 and are consistent with a severe localized colitis. No gross evidence of perforation or abscess at this time. No evidence of obstruction. C-diff pending, however, not currently having diarrhea. Continue IV Cipro and Flagyl. Surgical consult placed, no indication/plan for endoscopy/surgery at this time per general surgery. May have clear liquids as tolerated. Surgery will continue to follow along. Continue IV fluids. IV morphine as needed for pain. Repeat labs in the morning. (2) UTI (urinary tract infection): Current visit: No Status: Resolved With history of urinary retention. Fajardo placed. UA suspicious for UTI. Urine culture pending. Continue Fajardo, IV fluids, IV cipro and flagyl. Qualifiers: Encounter type: Hematuria presence: Indwelling urinary catheter type: Urinary tract infection type: acute cystitis (3) Urinary retention with incomplete bladder emptying: Current visit: No Status: Acute Continue fajardo catheter. Consider Urology consult. (4) Ambulatory dysfunction: Current visit: No Status: Acute With generalized weakness. Consult PT/OT. (5) Adrenal insufficiency: Current visit: No Status: Acute With history of PMR, chronically on steroids. She reports that she had tapered down to Medrol 2 mg daily as instructed by her Bicycle Repairman. Give stress dose steroids in the setting of colitis and generalized weakness. (6) PMR (polymyalgia rheumatica): Current visit: No Status: Chronic as above. (7) Weakness: Current visit: No Status: Acute Give stress dose steroids and consult PT/OT as above. (8) Compression fracture of body of thoracic vertebra: Current visit: No Status: Acute Continues to have significant back pain. Continue home regimen for pain control. (9) Anemia: Current visit: No Status: Acute Chronic, stable. Continue to monitor. Qualifiers: Anemia type: iron deficiency Bone marrow failure anemia type: Chronic kidney disease stage: Folate deficiency anemia type: Hemolytic anemia type: Iron deficiency anemia type: other iron deficiency Other causes of anemia: Vitamin B12 deficiency anemia type: Qualified Code(s): D50.8 - Other iron deficiency anemias (10) Latent tuberculosis: Current visit: Yes Status: Acute Noted in history. Not currently active. (11) DVT prophylaxis: Current visit: No Status: Acute Subcutaneous heparin. (12) Discharge planning issues: Current visit: No Status: Acute She is a DNR/DNI. She has had several recent hospitalizations. She was discharged home earlier th is month to [facility]. She has been home for one week. She does not want to return to the rehab. Her verbalized in the ED that he was no longer able to care for her at home. This case was discussed with Dr. Lugo who is in agreement. History of Present Illness Chief Complaint: Abdominal pain Narrative: Riddhi: Is a very pleasant 78-year-old female with a past medical history significant for polymyalgia rheumatica, adrenal insufficiency, chronically on steroids, urinary retention, history of bowel perforation status post colonoscopy with subsequent exploratory laparotomy with sigmoid resection in June 2018 with complications. She presented to the emergency department this morning via EMS with reports of left lower quadrant abdominal pain. Her abdominal pain began yesterday in progressively worsened overnight. [facility] placed a Fajardo catheter last evening and obtained a urine sample at that time. She reports that the pain in her left lower quadrant was so intense that she did not sleep last night. The pain is sharp and intermittent. She reports that the pain is in the same location as it was when she had her abdominal surgery 3 months ago. She had mild nausea, no vomiting, bloating or diarrhea. She was able to tolerate oral intake, she has not had anything to eat today. In the ED, she had a CT abdomen/pelvis that showed marked wall thickening of sigmoid and rectosigmoid junction, the findings are much more prominent than previous examination of 09/24/2018 and are consistent with a severe localized colitis. No gross evidence of perforation or abscess at this time. No evidence of obstruction. Her labs were notable for low sodium at 131, low potassium at 3.3, low chloride at 93, BUN and creatinine were within normal limits, magnesium was mildly low at 1.7. She had mild leukocytosis at 11.66. Hemoglobin stable at 10.5, Hct stable at 32.6. She denies any other concerns such as chest pain/pressure, palpitations, shortne ss of breath, coughing, wheezing, no dysuria, hematuria, diarrhea, hematochezia. She is admitted to the Med/surg floor for further evaluation and management. Surgical consult placed. Review of Systems Review of Systems All systems reviewed & are unremarkable except as noted in HPI and below PFSH Medical History Leukocytosis (Chronic) Hypokalemia (Acute) Primary osteoarthritis of left knee (Acute 07/30/15) PMR (polymyalgia rheumatica) (Chronic 01/15/16) Osteoporosis (Acute) Osteopenia (Acute 07/30/16) Obstructive sleep apnea syndrome (Acute) Memory impairment (Chronic 06/18/94) Increased body mass index (Acute) Hypothyroidism (Acute 04/05/12) Excessive sweating (Acute 06/02/16) Depressive disorder (Chronic) Insomnia (Acute) Tuberculosis (Chronic) Surgical History H/O dilation and curettage (Acute) S/P tonsillectomy (Acute) Abdominal hysterectomy (~1975) Appendectomy Bilateral salpingectomy with oophorectomy (~1975) Colonoscopy - MAC EGD - MAC (~2003) Laparoscopic, Ovarian Cystectomy Rotator Cuff Repair Family History Mother Heart disease Pneumonia Father Stroke Personal history of malignant neoplasm Heart disease Brother Alcohol abuse Cirrhosis with alcoholism Grandfather Essential hypertension Heart disease Grandmother Personal history of malignant neoplasm Stroke Grandmother Personal history of malignant neoplasm Son Alcohol abuse Social History Smoking/Tobacco Use Status: Former Tobacco Use Alcohol Intake: never Drug use: Never Substance use type: does not use Household members: other 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 Meds Home Medications Medication Instructions Recorded Confirmed Type aspirin [Aspirin Low Dose] 81 mg PO DAILY tab-cap 12/20/12 10/12/18 History folic acid 1 mg PO DAILY #90 tab-cap 08/27/17 10/12/18 Rx pyridoxine (vitamin B6) 25 mg 25 mg PO DAILY 05/19/18 10/12/18 History tablet isoniazid 300 mg tablet 300 mg PO DAILY 06/14/18 10/12/18 History bupropion HCl XL 300 mg 24 hr 300 mg PO QAM #90 tab 07/22/18 10/12/18 Rx tablet, extended release clotrimazole 45 g TOPICAL BID 07/30/18 10/12/18 History nystatin 60 g TOPICAL DAILY 07/30/18 10/12/18 History bupropion HCl XL 150 mg 24 hr 150 mg PO QAM 08/02/18 10/12/18 History tablet, extended release calcium carbonate-vitamin D3 600 1 tab PO DAILY tab 08/02/18 10/12/18 History mg (1,500 mg)-800 unit tablet multivitamin tablet 1 tab PO BID tab 08/06/18 10/12/18 History levothyroxine 125 mcg capsule 125 mcg PO DAILY #30 cap 08/23/18 10/12/18 Rx ferrous gluconate 324 mg (38 mg 324 mg PO DAILY PRN #90 tab 08/31/18 10/12/18 Rx iron) tablet furosemide 20 mg tablet 40 mg PO DAILY tab 08/31/18 10/12/18 History Mouthwash [Biotene Mouthwash] 0 ml MUCOUS MEMBRANE BID PRN PRN #0 09/22/18 10/12/18 Rx amlodipine 5 mg PO DAILY #0 tab 09/22/18 10/12/18 Rx docusate sodium [Colace] 100 mg PO BID #0 cap 09/22/18 10/12/18 Rx lidocaine [Lidoderm] 1 patch TOPICAL DAILY #0 ea 09/22/18 10/12/18 Rx magnesium chloride [Mag 64] 64 mg PO BID #0 tab 09/22/18 10/12/18 Rx melatonin 6 mg PO HS #0 tab 09/22/18 10/12/18 Rx potassium chloride [Klor-Con M20] 40 meq PO BID #0 tab 09/22/18 10/12/18 Rx tramadol 50 mg PO Q6H PRN PRN #0 tab 09/22/18 10/12/18 Rx zolpidem 5 mg PO HS #0 tab 09/22/18 10/12/18 Rx methylprednisolone [Medrol] 2 mg PO DAILY 10/12/18 10/12/18 History Allergies Allergy/AdvReac Type Severity Reaction Status Date / Time banana Allergy Intermediate Other (See Unverified 10/12/18 05:56 Comment) cucumber Allergy Intermediate Other (See Unverified 10/12/18 05:56 Comment) Iodinated Contrast- Oral and Allergy Unknown SWELLING; Unverified 10/12/18 05:56 IV Dye RASH [Iodinated Contrast Media - IV Dye] chloramphenicol AdvReac Severe KIDNEY Unverified 10/12/18 05:56 FAILURE tetracycline AdvReac Severe KIDNEY Unverified 10/12/18 05:56 FAILURE melon AdvReac Intermediate Cantaloupe-Abd Verified 10/12/18 05:56 pain, diarrhea ADHESIVE TAPE Allergy Intermediate takes skin Uncoded 10/12/18 05:56 off SUTURE MATERIAL Allergy Intermediate Purluent Uncoded 10/12/18 05:56 Drainage Exam Narrative Exam Narrative: General: very pleasant elderly female, laying in bed, appears fatigued, in NAD. Speech is clear and articulate. HEENT: EOMI, mucous membranes dry, PERRLA. Neck: supple, no JVD. Heart: Regular rate and rhythm, soft systolic murmur noted, 2/6 at LSB. Lungs: respirations even and unlabored. Lung sounds clear throughout. GI: abdomen is soft; incision well healed; normoactive bowel sounds x4 quadrants, nontender, nondistended, passing flatus. Extremities: mild nonpitting edema BLE's, wearing KAMRYN stockings, pedal pulses palpable bilaterally. Results Labs : 10/13/18 06:50 10/13/18 06:50 Laboratory Results - last 24 hr 10/12/18 10/12/18 10/12/18 06:09 06:09 06:14 WBC 11.66 H RBC 3.78 L Hgb 10.5 L Hct 32.6 L MCV 86.2 MCH 27.8 MCHC 32.2 RDW 17.7 H Plt Count 267 MPV 9.3 Immature Gran % 0.2 Neutrophils % 71.0 Lymphocytes % 10.7 Monocytes % 17.2 Eosinophils % 0.7 Basophils % 0.2 Absolute Neutrophils 8.28 H Absolute Lymphocytes 1.25 Absolute Monocytes 2.01 H Absolute Eosinophils 0.08 Absolute Basophils 0.02 Sodium 131 L Potassium 3.3 L Chloride 93 L Carbon Dioxide 27.5 Anion Gap 10.5 BUN 13 Creatinine 0.88 Estimated GFR/1.73 m2 >= 60.00 Glucose 105 H Calcium 8.1 L Magnesium 1.7 L Total Bilirubin 0.4 AST 16 ALT 17 Alkaline Phosphatase 94 Troponin I < 0.02 Total Protein 6.6 Albumin 2.4 L Lipase 38 L Urine Color Cancelled Urine Clarity Cancelled Urine pH Cancelled Ur Specific [place] Cancelled Urine Protein Cancelled Urine Ketones Cancelled Urine Blood Cancelled Urine Nitrite Cancelled Urine Bilirubin Cancelled Urine Urobilinogen Cancelled Ur Leukocyte Esterase Cancelled Urine Glucose Cancelled Last Vital Signs Temp 37.4 C 10/12/18 15:48 Pulse 80 10/12/18 15:48 Resp 17 10/12/18 15:48 BP 134/68 10/12/18 15:48 Pulse Ox 93 L 10/12/18 15:48
[2018-10-12] MEDS: Acetaminophen 325 MG TAB 650 MG PO (18:13)
[2018-10-12] MEDS: Hydrocortisone SOD SUC. 100 MG VIAL IVP (19:12)
[2018-10-12] MEDS: traMADol 50 MG TAB PO (20:16)
[2018-10-12] MEDS: Magnesium Chloride 64 MG TABCR PO (20:16)
[2018-10-12] MEDS: Potassium Chloride 20 MEQ TABCR 40 MEQ PO (20:17)
[2018-10-12] MEDS: Docusate Sodium 100 MG CAP PO (20:17)
[2018-10-12] MEDS: Mylanta Suspension 30 ML CUP PO (21:40)
[2018-10-12] MEDS: Hydrocortisone SOD SUC. 100 MG VIAL 50 MG IVP (23:15)
[2018-10-13] MEDS: traMADol 50 MG TAB PO ×2 (02:53→13:55)
[2018-10-13 03:00] VITALS: BP 106/62; PULSE 68; RESP 17; TEMP 36.4; O2SAT 96
[2018-10-13] MEDS: metroNIDAZOLE 500 MG/100 ML BAG 100 MG IVPB ×3 (03:51→21:09)
[2018-10-13] MEDS: Normal Saline 1,000 ML 125 ML IV ×2 (03:51→13:56)
[2018-10-13] MEDS: Hydrocortisone SOD SUC. 100 MG VIAL 50 MG IVP ×4 (05:44→23:58)
[2018-10-13] MEDS: Levothyroxine 125 MCG TAB PO (05:44)
[2018-10-13 07:05] LABS: Abs Immature Grans 0.02 k/cumm (0.0-0.09); Absolute Basophil Count 0.01 k/cumm (0.0-0.2); Absolute Monocyte Count 0.57 k/cumm (0.11-0.7); Basophils % 0.2; HCT 30.2 % (36.0-46.0); HGB 9.3 g/dL (12.0-15.5); Immature Grans % 0.3; Lymphocytes % 8.2; Mean Corp. HGB Concentration 30.8 g/dL (32.0-36.0); Mean Corpuscular Volume 87.8 fL (80-95); Mean Platelet Volume 9.9 fL (8.0-11.0); Monocytes % 9.3; Platelet Count 234 x1000/uL (130-400); RBC 3.44 m/cumm (4.00-5.20); RBC Distribution Width 17.7 % (11.7-14.6)
[2018-10-13 07:09] VITALS: BP 118/66; PULSE 65; RESP 18; TEMP 35.8; O2SAT 97
[2018-10-13 07:45] LABS: Anion Gap 10.2 mmol/L (3-11); BUN 8 mg/dL (7-18); CO2 22.8 mmol/L (21.0-32.0); CREATININE 0.66 mg/dL (0.55-1.02); Chloride 103 mmol/L (98-107); Glucose 121 mg/dL (70-100); Magnesium 1.8 mg/dL (1.8-2.4); Potassium 4.3 mmol/L (3.5-5.1); Sodium 136 mmol/L (136-145)
--- NOTE | 2018-10-13 08:01 | INITIAL_ITS ---
- If Service Date Differs Date of service: 10/13/18 Time of Service: 07:52 Care Management Initial Assess REASON FOR HOSPITALIZATION:: Acute colitis, UTI PAST MEDICAL HISTORY/PAST SURGICAL HISTORY:: Past Medical History: Leukocytosis, Hypokalemia, Primary osteoarthritis of left knee, PMR (polymyalgia rheumatica), Osteoporosis, Osteopenia, Obstructive sleep apnea syndrome, Memory impairment, Increased body mass index, Hypothyroidism, Excessive sweating, Depressive disorder, Insomnia, Tuberculosis. Surgical History: H/O dilation and curettage (Acute). S/P tonsillectomy, Abdominal hysterectomy, Appendectomy. Bilateral salpingectomy with oophorectomy (~1975)Colonoscopy - MAC. EGD - MAC (~2003)Laparoscopic, Ovarian Cystectomy. Rotator Cuff Repair PREVIOUS FUNCTIONAL STATUS/SOCIAL/FAMILY SUPPORTS:: Ridhdi lives at home with her ED. She has a single level home but needs to climb 4 stairs to get in. Her does most of the food preparation. Riddhi and ED have 3 daughters who all live out of state and 15 grandchildren. They had one son who is now . Riddhi states that she has been falling a lot at home and uses a walker to help maintain her balance. CURRENT FUNCTIONAL STATUS:: Riddhi was pleasant and engaged during conversation with CM. She has a history of confusion but feels that it has gotten worse in the past few months and her memory loss is more pronounced. She had difficulty articulating which events happened when and seemed to be confusing her hospital stays. She was unable to recall when she came to the hospital this time and seemed confused about her 's employment status. She also identified that she has been falling a lot at home and is using a walker to help with her balance. ADVANCE DIRECTIVES:: None on file Has patient been provided with information about the portal?: Yes Did the patient sign up for the portal?: No (Thinks she may do so) CODE STATUS:: DNR/DNI INSURANCE COVERAGE / FINANCIAL ISSUES:: Medicare. [facility] [employer] CURRENT HOME/COMMUNITY SERVICES/EQUIPMENT:: Riddhi was not sure if she was receiving services at home. She thinks she may have had nursing and PT. PRIMARY CARE PHYSICIAN:: Liz Granado POTENTIAL DISCHARGE NEEDS:: Needs followup with PCP. Riddhi feels strongly that she wants to return home but will likely need SNF placement. If that is not possible she will need extensive resources at home. PATIENT/FAMILY EDUCATION NEEDS:: Review of discharge instructions; discuss Ask Me Three, limitations, followup care. ANTICIPATED BARRIERS TO DISCHARGE:: Riddhi wants to return home but has voiced concerns recently about his ability to care for her. TRANSPORTATION:: via private car with family at time of discharge. PLAN:: Riddhi is receiving IV antibiotics for a urinary tract infection and physical therapy for strengthening, ambulation and balance. She remains acute hospital level of care. PT consult was completed and short term rehab was recommended, followed by in home services including PT but Riddhi wants to return home.CM to continue to provide support to patient, family, care team ongoing discharge planning. Readmission - Within the Past 30 Days Yes or No: Y - Date of First Admission Date of 1st Admission: 09/11/18 - Date of this Admission Date of Admission: 10/12/18 This admission was: Through ED - I. Interview patient and/or Family Difficulty reaching your doctor or getting an office appt?: No Have you had trouble purchasing/ or taking medication?: No Describe barriers fpr purchasing or taking medication: none identified Have you had trouble with getting meals at home?: No Did you feel ready for discharge when you left the last time: Yes What services were received?: Nursing, PT and OT Did you call your physician beore you came to the ED?: No How do you think you became sick enough to come back?: I kept falling - If the patient had a VNA ordered Did the patient have a VNA order?: Yes Did you call the VNA before you came?: No Did the VNA tell you to come to the hospital?: No
[2018-10-13] MEDS: Potassium Chloride 20 MEQ TABCR 40 MEQ PO ×2 (08:03→21:05)
[2018-10-13] MEDS: Heparin 5,000 UNITS/ML VIAL 5000 UNITS SC ×3 (08:03→23:58)
[2018-10-13] MEDS: buPROPion-XL 150 MG TABCR 450 MG PO (08:03)
[2018-10-13] MEDS: Lidocaine 5% Patch 1 PATCH TP (08:03)
[2018-10-13] MEDS: Magnesium Chloride 64 MG TABCR PO ×2 (08:04→21:05)
[2018-10-13] MEDS: Aspirin E.C. 81 MG TABEC PO (08:04)
[2018-10-13] MEDS: amLODIPine 5 MG TAB PO (08:04)
[2018-10-13] MEDS: Multivitamin TAB 1 TAB PO (08:04)
[2018-10-13] MEDS: Folic Acid 1 MG TAB PO (08:04)
[2018-10-13] MEDS: Ferrous Gluconate 324 MG TAB PO (08:04)
[2018-10-13] MEDS: Acetaminophen 325 MG TAB 650 MG PO (08:04)
[2018-10-13] MEDS: Normal Saline Flush 10 ML SYR IVP ×5 (10:49→23:57)
[2018-10-13] MEDS: Pantoprazole 40 MG VIAL IVP (10:50)
[2018-10-13] MEDS: CIPROFLOXACIN 400 MG/200 ML BAG 200 MG IVPB ×2 (10:59→22:44)
[2018-10-13 11:20] VITALS: BP 110/65; PULSE 67; RESP 18; TEMP 36.4; O2SAT 97
--- NOTE | 2018-10-13 11:40 | CHAPLAIN ---
Riddhi was getting back into bed when I visited. She said she'd been up for a while. She and her talked about her stay at [facility], telling me that Riddhi was depressed there and couldn't eat the food. She went home for a few days and then came to the [facility] ER on 10/11. Prior to her stay at [facility], Riddhi had been a patient at [facility] for several days. She said she got to know people here and likes the food.
--- NOTE | 2018-10-13 11:58 | PHARADMIT ---
Addendum entered by René Sahu III 10/22/18 15:52: Fats MD henrry to taper TPN off today. Last bag made today. VS-OK K+4.3 Phos-2.5 Mag-1.8 Wgt-76.9 small BM IV ABX continue Addendum entered by René Sahu III 10/21/18 14:30: Patient has been accepted to [place] [facility] pending bed [place]all[place]. is also contacting [facility] for availability. VS-OK K+3.9 Phos-2.2 Mag- 1.8 WBC-10.62 (afebrile) H&H-(up) 9.8/31.6 Had BM today Continue Cipro/Flagyl and TPN Addendum entered by Svetlana Lugo 10/20/18 18:23: K+ 3.3, Phos 1.9 MD did add Neutra-Phos 250mg po QID today, so should see rise in Phos, it also has a little additional K+ in each tablet K-dur 40meq po BID ordered No adjustments to TPN (Possible shortage of Clinimix 4.25/10, special delivery should arrive Thursday, if not, we will be out of base solution for Sat afternoon...MD has not been notified, assuming it will arrive in time) Solu-cortef decreased Continues on Flagyl/Cipro IV Vaginal leakage of stool, but looks ok Addendum entered by Aide Bowman 10/19/18 15:26: Pharmacy Note Subjective bowel rest and TPN continue Objective BP-148/66 other VS okay phos-2.2(up) Assessment asked about adding more phos to TPN yesterday, currently at the max allowed that can be added to TPN so suggested doing separate supplementation if needed mag and K+ replacement have been given on top of what is in TPN Plan was planning on talking with colorectal surgery at [facility] today to get their opinion Addendum entered by Svetlana Lugo 10/14/18 16:29: Pharmacy Note Subjective per report, no pain overnight, refusing SCD's and TEDS Objective LLQ Pain 8/10 this afternoon,VS ok, weight up a little each day Mag 1.7, K+ 4.6, H/H downward trend 8.9/28.9 CRP elevated 5.35 Assessment Melatonin increased, Mag ox x1 in addition to Slo-mag, Ativan prior to CT scan workup for ?Vaginal fistula-possible stool coming from vaginal area Continues on Cipro/Flagyl IV Heparin SC was held a few doses today MS IVP for pain, soft liquid stool, C.Diff was negative Urology consult today: possible indwelling fajardo, trouble emptying bladder Plan CT of pelvis/abdomen today-report not available Original Note: Admission Pharmacy Clinical Review ACUTE COLITIS, UTI, FAILURE TO THRIVE Code Status DNR/DNI Current Weight Wgt-76.8 kg Renally Cleared and Narrow Therapeutic Index Meds CrCl~44.43 mL/min Meds-OK QTc Value / Action Taken QTc-48 on 09/11/18 NNA BP Control, Fever BP- 118/66 Tmax- 36.6C Electrolytes reviewed Na- 136 K+4.3 Mag-1.8 DVT Prophylaxis Heparin SC, ASA Opiate Usage / Scheduled Bowel Regimen Ordered Yes Yes Plt/SCr for Heparin / Enoxaparin Plts-234 SCr-0.66 INR for Warfarin na H/H stable, WBC/Bands H&H- 9.3/30.2 WBC- 6.10 Antibiotic appropriateness Cipro, Isoniazid, Flagyl Cultures and Sensitivities C-diff neg Surgical ABX d/c within 24 hr NA DM control / Insulin Dosing BG-121 Heart Failure (Check EF%) (NEO's, B-Block, Diuretics) Norvasc, IV to PO Switch No Home Meds Reviewed Yes Home Meds Not Ordered Finacea, Comments
--- NOTE | 2018-10-13 12:55 | PGE_ITS ---
Date of Service Date of service: 10/13/18 Time of Service: 12:53 Assessment and Plan (1) Colitis: Current visit: Yes Status: Acute 78 y/o female s/p sigmoid colon resection and anastomosis > 3 months ago. Findings of severe colitis in sigmoid/rectosigmoid on CT. Cipro/Flagyl started in the ED. C diff screen (-). Brown, soft stool this am. No gross blood seen. No pain at this time. Patient also being treated for UTI/urinary retention/weakness. Continue supportive care. No indication/ plans for endoscopy/surgery at this time. May advance diet as tolerated. Discussed with Dr. Lugo. Will decrease IVF as she is tolerating po. Will follow-up. Subjective Interval history since last seen: Patient reports feeling better today. Denies nausea, vomiting, or abdominal pain. Tolerated clears. Had soft, formed BM this am. C diff screen (-). Exam Const General: cooperative, comfortable, no acute distress and well developed Nutritional Appearance: obese Orientation: alert [facility] Head: normocephalic and atraumatic Eyes Sclera: sclerae normal Resp Effort & Inspection: normal respiratory effort and able to speak in complete sentences Cardio Jugular venous pressure: no JVD Rate: regular rate Rhythm: regular rhythm GI Inspection: non-distended Palpation: soft, not firm, no guarding, not rigid and nontender Auscultation: normal bowel sounds Skin General skin exam: no rashes or lesions noted and no jaundice Objective Objective Clinical Data: Abnormal lab results 10/13/18 10/13/18 Range/Units 06:50 06:50 RBC 3.44 L (4.00-5.20) m/cumm Hgb 9.3 L (12.0-15.5) g/dL Hct 30.2 L (36.0-46.0) % MCHC 30.8 L (32.0-36.0) g/dL RDW 17.7 H (11.7-14.6) % Absolute Lymphocytes 0.50 L (1.2-3.4) k/cumm Glucose 121 H (70-100) mg/dL Calcium 7.0 L (8.5-10.1) mg/dL Vital Signs Temperature 35.8 C L 10/13/18 07:09 Temperature Source Tympanic 10/13/18 07:09 Pulse 65 10/13/18 07:09 Pulse Rhythm Regular 10/13/18 08:26 Pulse Strength Normal 10/12/18 09:39 Respiratory Rate 18 10/13/18 07:09 Respiratory Effort Non-Labored 10/13/18 08:26 Respiratory Depth Normal 10/13/18 08:26 Respiratory Pattern Normal 10/13/18 08:26 Blood Pressure 118/66 10/13/18 07:09 Blood Pressure Mean 80 10/12/18 09:39 Pulse Oximetry 97 10/13/18 07:09 Oxygen Delivery Method Room Air 10/13/18 07:09 Oxygen Flow Rate 0 10/13/18 07:09 Pain Level 5 10/13/18 08:04 Intake & Output 10/12/18 10/13/18 10/13/18 23:59 11:59 23:59 Intake Total 1460.417 / 2560.417 1896.25 / 1896.25 Output Total 500 / 875 1200 / 1200 Balance 960.417 / 1685.417 696.25 / 696.25 Weight 76.8 kg Intake: IV 1460.417 / 2560.417 1056.25 / 1056.25 Oral 840 / 840 Output: Urine 500 / 875 1200 / 1200 Other: Urine Color Dark Bonnie Yellow Urine Appearance Clear Clear Stool Size Moderate Moderate Stool Characteristics Soft Soft Brown Formed Laboratory Results WBC 6.10 k/cumm (4.4-10.8) D 10/13/18 06:50 RBC 3.44 m/cumm (4.00-5.20) L 10/13/18 06:50 Hgb 9.3 g/dL (12.0-15.5) L 10/13/18 06:50 Hct 30.2 % (36.0-46.0) L 10/13/18 06:50 MCV 87.8 fL (80-95) 10/13/18 06:50 MCH 27.0 pg (27.0-33.0) 10/13/18 06:50 MCHC 30.8 g/dL (32.0-36.0) L 10/13/18 06:50 RDW 17.7 % (11.7-14.6) H 10/13/18 06:50 Plt Count 234 x1000/uL (130-400) 10/13/18 06:50 MPV 9.9 fL (8.0-11.0) 10/13/18 06:50 Immature Gran % 0.3 10/13/18 06:50 Neutrophils % 82.0 10/13/18 06:50 Lymphocytes % 8.2 10/13/18 06:50 Monocytes % 9.3 10/13/18 06:50 Eosinophils % 0.0 10/13/18 06:50 Basophils % 0.2 10/13/18 06:50 Absolute Neutrophils 5.00 k/cumm (1.2-6.7) 10/13/18 06:50 Absolute Lymphocytes 0.50 k/cumm (1.2-3.4) L 10/13/18 06:50 Absolute Monocytes 0.57 k/cumm (0.11-0.7) 10/13/18 06:50 Absolute Eosinophils 0.00 k/cumm (0.0-0.7) 10/13/18 06:50 Absolute Basophils 0.01 k/cumm (0.0-0.2) 10/13/18 06:50 Sodium 136 mmol/L (136-145) 10/13/18 06:50 Potassium 4.3 mmol/L (3.5-5.1) D 10/13/18 06:50 Chloride 103 mmol/L (98-107) 10/13/18 06:50 Carbon Dioxide 22.8 mmol/L (21.0-32.0) 10/13/18 06:50 Anion Gap 10.2 mmol/L (3-11) 10/13/18 06:50 BUN 8 mg/dL (7-18) 10/13/18 06:50 Creatinine 0.66 mg/dL (0.55-1.02) 10/13/18 06:50 Estimated GFR/1.73 m2 >= 60.00 (mL/min/1.73m2) 10/13/18 06:50 Glucose 121 mg/dL (70-100) H 10/13/18 06:50 Calcium 7.0 mg/dL (8.5-10.1) L 10/13/18 06:50 Magnesium 1.8 mg/dL (1.8-2.4) 10/13/18 06:50 Total Bilirubin 0.4 mg/dL (0.2-1.0) 10/12/18 06:09 AST 16 U/L (15-37) 10/12/18 06:09 ALT 17 U/L (12-78) 10/12/18 06:09 Alkaline Phosphatase 94 U/L (46-116) 10/12/18 06:09 Troponin I < 0.02 ng/mL (0.00-0.06) 10/12/18 06:09 Total Protein 6.6 g/dL (6.4-8.2) 10/12/18 06:09 Albumin 2.4 g/dL (3.4-5.0) L 10/12/18 06:09 Lipase 38 U/L (73-393) L 10/12/18 06:09 Urine Color Cancelled 10/12/18 06:14 Urine Clarity Cancelled 10/12/18 06:14 Urine pH Cancelled 10/12/18 06:14 Ur Specific [place] Cancelled 10/12/18 06:14 Urine Protein Cancelled 10/12/18 06:14 Urine Ketones Cancelled 10/12/18 06:14 Urine Blood Cancelled 10/12/18 06:14 Urine Nitrite Cancelled 10/12/18 06:14 Urine Bilirubin Cancelled 10/12/18 06:14 Urine Urobilinogen Cancelled 10/12/18 06:14 Ur Leukocyte Esterase Cancelled 10/12/18 06:14 Urine Glucose Cancelled 10/12/18 06:14
--- NOTE | 2018-10-13 13:29 | OTIE_ITS ---
Occupational Therapy Notes Inpatient Occupational Therapy Evaluation Date: 10/13/18 Referring Doctor:Mena Lugo MD OT Orders: Eval and Treat Precautions: Fall, Standard PATIENT PROFILE/ADMITTING DIAGNOSIS: Pt is a 78 year old female who was admitted for left-sided abdominal pain, decreased appetite, and weakness. Patient was then admitted to Med Surg with diagnosis of acute colitis, urinary tract infection, and failure to thrive. Past Medical History: Medical History Raynaud's disease (Acute) Primary osteoarthritis of left knee (Acute 07/30/15) PMR (polymyalgia rheumatica) (Chronic 01/15/16) Osteoporosis (Acute) Osteopenia (Acute 07/30/16) Obstructive sleep apnea syndrome (Acute) Non-alcoholic fatty liver disease (Acute) Memory impairment (Acute 06/18/94) Increased body mass index (Acute) Hypothyroidism (Acute 04/05/12) Fracture, calcaneus closed (Acute 09/19/14) Excessive sweating (Acute 06/02/16) Depressive disorder (Acute) Colon polyp (Acute 06/28/18) Cataract (Acute 07/28/14) Benign paroxysmal positional vertigo (Acute) Abdominal pain (Acute 10/31/13) Insomnia (Acute) Tuberculosis (Chronic) Surgical History H/O dilation and curettage (Acute) S/P tonsillectomy (Acute) Abdominal hysterectomy (~1975) Appendectomy Bilateral salpingectomy with oophorectomy (~1975) Colonoscopy - MAC EGD - MAC (~2003) Laparoscopic, Ovarian Cystectomy Rotator Cuff Repair Social History/Home Situation: Pt lives in a single story home with a finished basement with her . She reports that her (A) with her ADL/IADL routines. She notes that she is not currently driving. She reports that she is able to perform dressing (I) but it takes her a while and makes her tired. She sits in the shower and her (A) if she feels tired or unable to do so. Equipment owned/DME: Shower bench, 4WW, commode, electric recliner chair SUBJECTIVE: Pt was sitting in chair when OT arrived. She was receptive to OT consult and evaluation. OBJECTIVE: General Observation: IV (L) UE, Johnson Mental Status: A&Ox3 Pain: 3/10 pain pt does not specify where when asked. ROM: RUE AROM WFL L UE AROM WFL STRENGTH: RUE 4/5 throughout globally LUE 4/5 throughout globally FUNCTIONAL MOBILITY/ADLS: Transfers Sit-Stand SBA, 4WW Stand-sit SBA, 4WW BATHING Sitting in chair with max (A) set up Bathing UE (I), max (A) back Bathing LE Min (A) LE and (B) feet DRESSING Dressing UE Sitting in chair min (A) with donning and doffing hospital gown Dressing LE Sitting in chair with min-mod vc pt was educated in use of adaptive equipment for donning and doffing (B) socks, pants and shoes. Pt was able to perform this with good technique with sock aid, dressing hook, ripsaw matcher and shoe horn. GROOMING NT TOILETING Pt was incontinent when OT arrived, however she reports that she has used the commode since admission. EATING NT BALANCE: Static sitting normal Dynamic Sitting normal Static Standing good Dynamic Standing fair SPECIAL TESTS: Daily Activity Limitations Standardized Measure [facility] AM -PAC ?6 clicks? Daily Activity Inpatient Short Form: Raw score: 20 INFORMED CONSENT/EDUCATION: Pt instructed in purpose of OT Consult and plan of care. ASSESSMENT: Patient is a 78-year-old female referred to occupational therapy services with diagnosis of acute colitis, urinary tract infection, failure to thrive, and chronic low back pain. Patient presents with clinical signs and symptoms consistent with dx, as demonstrated by the following impairment level findings: decreased functional mobility, pain with functional activities, decreased functional activity tolerance. Impairments are contributing to the following functional limitations: Difficulty performing ADLs in standing position, decreased functional activity tolerance, ADL/IADL and leisure impairment. AMPAC score 20 Patient is assessed as a Moderate 59087 complexity based on the following: History: See Above Examination: See Above Presentation: Evolving Decision Making: AMPAC score 20 GOALS Goals x1 week in hospital setting 1. Transfers (I) LRD 2. Dressing in sitting position (I) with UE/LE dressing. 3. Bathing Standing at sink (I) with UE bathing, sitting for LE bathing (I). 4. Toileting (I) on toilet 5. Eating (I) 6. Grooming- (I) standing at sink for teeth and hair with LRD. PLAN OF CARE/TREATMENT PLAN: 1x/day, 5 days/ week x 1week Initiate Occupational Therapy Services for bathing, dressing, grooming, toileting, eating, transfer training. DISCHARGE RECOMMENDATIONS Short term stay at SNF vs home with home health services for assessment of ADLs and safety in home environment. TREATMENT TIME/MINUTES/CODES 01274, 35 minutes (09:25) Anamika Raymond OTR/[facility]
[2018-10-13 15:18] VITALS: BP 115/67; PULSE 67; RESP 18; TEMP 36.1; O2SAT 95
--- NOTE | 2018-10-13 15:38 | PT.INNT ---
Date of service: 10/13/18 Time of Service: 15:38 PT Notes 10/13/18 Patient not available x3 for morning PT session. Patient noted to be on the commode. She refused afternoon PT session stating I'm going to be on the commode all afternoon, I have stomach pain, can we just do it tomorrow? Will attempt to resume PT services tomorrow morning
[2018-10-13 16:14] VITALS: BP 120/67; PULSE 67; RESP 18; TEMP 36.7; O2SAT 97
--- NOTE | 2018-10-13 18:41 | W.PM.PROGNOT ---
Date of Service Date of service: 10/13/18 Time of Service: 15:30 Assessment and Plan (1) Colitis: Current visit: Yes Status: Acute Discussed with surgery - it is no exactly clear why the site of reanastomosis keeps getting inflamed. Continue empiric cipro/flagyl, but monitor serial exams. It is felt that right now there is no indication for a surgical intervention. May require repeat imaging. (2) UTI (urinary tract infection): Current visit: No Status: Resolved Present on admission; culture with mixed kareem. Would continue empiric cipro and monitor clinically. Qualifiers: Urinary tract infection type: acute cystitis Hematuria presence: Indwelling urinary catheter type: Encounter type: (3) Urinary retention with incomplete bladder emptying: Current visit: No Status: Acute s/p fajardo. Does have this problem chronically. Previously seen by urology as inpatient - will involve again. (4) Ambulatory dysfunction: Current visit: No Status: Acute PT/OT consults (5) Adrenal insufficiency: Current visit: No Status: Acute Continue stress dose steroids (6) PMR (polymyalgia rheumatica): Current visit: No Status: Chronic Steroid dependent. Will eventually have to be followed up by her continuous towel roller (7) Weakness: Current visit: No Status: Acute PT/OT (8) Compression fracture of body of thoracic vertebra: Current visit: No Status: Acute Relatively comfortable now. 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 Subjective Interval history since last seen: Patient complains of severe LLQ pain. She states that 3 mg of morphine took it down from 9 to a 7. She has been having pasty stools. No blood in stools. Denies dizziness, chest pain, shortness of breath, nausea, vomiting. Exam Narrative Exam Narrative: General: Pleasant elderly female, appears uncomfortable, in bed HEENT: EOMI, MMM Heart: RRR, no m/r/g Lungs: CTAB GI: abdomen is soft, tender in LLQ with some guarding, nondistended Extremities: no e/c/c BLE's, 1+ pedal pulses B Objective Objective Clinical Data: Abnormal lab results 10/13/18 10/13/18 Range/Units 06:50 06:50 RBC 3.44 L (4.00-5.20) m/cumm Hgb 9.3 L (12.0-15.5) g/dL Hct 30.2 L (36.0-46.0) % MCHC 30.8 L (32.0-36.0) g/dL RDW 17.7 H (11.7-14.6) % Absolute Lymphocytes 0.50 L (1.2-3.4) k/cumm Glucose 121 H (70-100) mg/dL Calcium 7.0 L (8.5-10.1) mg/dL Vital Signs Temperature 36.7 C 10/13/18 16:14 Temperature Source Tympanic 10/13/18 16:14 Pulse 67 10/13/18 16:14 Pulse Rhythm Regular 10/13/18 15:47 Pulse Strength Normal 10/12/18 09:39 Respiratory Rate 18 10/13/18 16:14 Respiratory Effort Non-Labored 10/13/18 15:47 Respiratory Depth Normal 10/13/18 15:47 Respiratory Pattern Normal 10/13/18 15:47 Blood Pressure 120/67 10/13/18 16:14 Blood Pressure Mean 80 10/12/18 09:39 Pulse Oximetry 97 10/13/18 16:14 Oxygen Delivery Method Room Air 10/13/18 16:14 Oxygen Flow Rate 0 10/13/18 16:14 Pain Level 5 10/13/18 17:34 Intake & Output 10/12/18 10/13/18 10/13/18 23:59 11:59 23:59 Intake Total 1460.417 / 2560.417 1896.25 / 2956.583 1060.333 / 2956.583 Output Total 500 / 875 1200 / 1600 400 / 1600 Balance 960.417 / 1685.417 696.25 / 1356.583 660.333 / 1356.583 Weight 76.8 kg Intake: IV 1460.417 / 2560.417 1056.25 / 6.583 1010.333 / 6.583 Oral 840 / 890 50 / 890 Output: Urine 500 / 875 1200 / 1600 400 / 1600 Other: Urine Color Dark Bonnie Yellow Dark Bonnie Urine Appearance Clear Clear Clear Comment catheter advanced slightly, flushed per Dr. Lugo Stool Size Moderate Moderate Stool Characteristics Soft Soft Brown Formed Laboratory Results WBC 6.10 k/cumm (4.4-10.8) D 10/13/18 06:50 RBC 3.44 m/cumm (4.00-5.20) L 10/13/18 06:50 Hgb 9.3 g/dL (12.0-15.5) L 10/13/18 06:50 Hct 30.2 % (36.0-46.0) L 10/13/18 06:50 MCV 87.8 fL (80-95) 10/13/18 06:50 MCH 27.0 pg (27.0-33.0) 10/13/18 06:50 MCHC 30.8 g/dL (32.0-36.0) L 10/13/18 06:50 RDW 17.7 % (11.7-14.6) H 10/13/18 06:50 Plt Count 234 x1000/uL (130-400) 10/13/18 06:50 MPV 9.9 fL (8.0-11.0) 10/13/18 06:50 Immature Gran % 0.3 10/13/18 06:50 Neutrophils % 82.0 10/13/18 06:50 Lymphocytes % 8.2 10/13/18 06:50 Monocytes % 9.3 10/13/18 06:50 Eosinophils % 0.0 10/13/18 06:50 Basophils % 0.2 10/13/18 06:50 Absolute Neutrophils 5.00 k/cumm (1.2-6.7) 10/13/18 06:50 Absolute Lymphocytes 0.50 k/cumm (1.2-3.4) L 10/13/18 06:50 Absolute Monocytes 0.57 k/cumm (0.11-0.7) 10/13/18 06:50 Absolute Eosinophils 0.00 k/cumm (0.0-0.7) 10/13/18 06:50 Absolute Basophils 0.01 k/cumm (0.0-0.2) 10/13/18 06:50 Sodium 136 mmol/L (136-145) 10/13/18 06:50 Potassium 4.3 mmol/L (3.5-5.1) D 10/13/18 06:50 Chloride 103 mmol/L (98-107) 10/13/18 06:50 Carbon Dioxide 22.8 mmol/L (21.0-32.0) 10/13/18 06:50 Anion Gap 10.2 mmol/L (3-11) 10/13/18 06:50 BUN 8 mg/dL (7-18) 10/13/18 06:50 Creatinine 0.66 mg/dL (0.55-1.02) 10/13/18 06:50 Estimated GFR/1.73 m2 >= 60.00 (mL/min/1.73m2) 10/13/18 06:50 Glucose 121 mg/dL (70-100) H 10/13/18 06:50 Calcium 7.0 mg/dL (8.5-10.1) L 10/13/18 06:50 Magnesium 1.8 mg/dL (1.8-2.4) 10/13/18 06:50 Total Bilirubin 0.4 mg/dL (0.2-1.0) 10/12/18 06:09 AST 16 U/L (15-37) 10/12/18 06:09 ALT 17 U/L (12-78) 10/12/18 06:09 Alkaline Phosphatase 94 U/L (46-116) 10/12/18 06:09 Troponin I < 0.02 ng/mL (0.00-0.06) 10/12/18 06:09 Total Protein 6.6 g/dL (6.4-8.2) 10/12/18 06:09 Albumin 2.4 g/dL (3.4-5.0) L 10/12/18 06:09 Lipase 38 U/L (73-393) L 10/12/18 06:09 Urine Color Cancelled 10/12/18 06:14 Urine Clarity Cancelled 10/12/18 06:14 Urine pH Cancelled 10/12/18 06:14 Ur Specific [place] Cancelled 10/12/18 06:14 Urine Protein Cancelled 10/12/18 06:14 Urine Ketones Cancelled 10/12/18 06:14 Urine Blood Cancelled 10/12/18 06:14 Urine Nitrite Cancelled 10/12/18 06:14 Urine Bilirubin Cancelled 10/12/18 06:14 Urine Urobilinogen Cancelled 10/12/18 06:14 Ur Leukocyte Esterase Cancelled 10/12/18 06:14 Urine Glucose Cancelled 10/12/18 06:14 Stl C.difficile Tox PCR Cancelled 10/12/18 19:00 C.difficile Tox Source Cancelled 10/12/18 19:00
[2018-10-13 20:08] VITALS: BP 111/59; PULSE 82; RESP 19; TEMP 36.7; O2SAT 93
[2018-10-13] MEDS: MORPHine 10 MG/ML VIAL 5 MG IVP (20:58)
--- NOTE | 2018-10-13 23:04 | NUR.NOTE ---
Nursing Note: Per Kimmie SMITH, patient had stool in the vaginal area and around her catheter but her bottom was clean. She helped the patient to clean up. She and the patient then her a bubbling sound like gas passing and when she looked feces was once again in vaginal area and on the catheter. However, the patient had no stool in the rectal area
[2018-10-13] MEDS: Zolpidem 5 MG TAB PO (23:56)
[2018-10-14] VITALS (7 sets, daily range): BP systolic 113–130; BP diastolic 63–73; PULSE 65–75; RESP 16–19; TEMP 35.9–36.7; O2SAT 95–98
[2018-10-14] MEDS: Melatonin 3 MG TAB PO ×2 (02:01)
[2018-10-14] MEDS: metroNIDAZOLE 500 MG/100 ML BAG 100 MG IVPB ×3 (03:36→19:55)
[2018-10-14] MEDS: Hydrocortisone SOD SUC. 100 MG VIAL 50 MG IVP ×2 (06:05→12:00)
[2018-10-14] MEDS: Levothyroxine 125 MCG TAB PO (06:05)
[2018-10-14] MEDS: Normal Saline Flush 10 ML SYR IVP ×3 (06:06→19:50)
[2018-10-14 07:23] LABS: Abs Immature Grans 0.05 k/cumm (0.0-0.09); Absolute Eosinophil Count 0.01 k/cumm (0.0-0.7); Absolute Lymphocyte Count 0.74 k/cumm (1.2-3.4); Absolute Monocyte Count 0.89 k/cumm (0.11-0.7); Eosinophils % 0.1; HCT 28.9 % (36.0-46.0); HGB 8.9 g/dL (12.0-15.5); Immature Grans % 0.6; Lymphocytes % 8.8; Mean Corp. HGB Concentration 30.8 g/dL (32.0-36.0); Mean Corpuscular Hemoglobin 27.1 pg (27.0-33.0); Mean Corpuscular Volume 88.1 fL (80-95); Mean Platelet Volume 10.2 fL (8.0-11.0); Monocytes % 10.6; Neutrophils % 79.9; Platelet Count 288 x1000/uL (130-400); RBC 3.28 m/cumm (4.00-5.20); White Blood Cell Count 8.38 k/cumm (4.4-10.8)
[2018-10-14] MEDS: Normal Saline 1,000 ML 75 ML IV (07:38)
--- NOTE | 2018-10-14 07:38 | PDOC.CMPRO ---
- If Service Date Differs Date of service: 10/14/18 Time of Service: 07:38 Care Management Progress Note S/O:Riddhi was sitting up in bed, smiling and talking with her during CM visit. She remains very confused about the sequence of events and her hospital stays. Mildly argumentative with her about when she fell and injured her back. Discharge plans were discussed and her Ed agrees that they want her to go home with services. He identified the need for additional assistance, especially when he has to leave the house for doctor's appointments, shopping etc. They have no friends or family in the area who can assist. Referrals were made to [facility] and [facility], in addition to . A:Riddhi is a 78 y/o female admitted with colitis, UTI and failure to thrive. P:Riddhi is receiving IV antibiotics for a urinary tract infection and physical therapy for strengthening, ambulation and balance. She remains acute hospital level of care. PT consult was completed and short term rehab was recommended, followed by in home services including PT but Riddhi wants to return home. to continue to provide support to patient, family, care team ongoing discharge planning.
[2018-10-14 07:49] LABS: Anion Gap 8.9 mmol/L (3-11); BUN 8 mg/dL (7-18); C-Reactive Protein 5.35 mg/dL (0.0-0.3); CO2 22.1 mmol/L (21.0-32.0); CREATININE 0.58 mg/dL (0.55-1.02); Chloride 106 mmol/L (98-107); Glucose 119 mg/dL (70-100); Magnesium 1.7 mg/dL (1.8-2.4); Potassium 4.6 mmol/L (3.5-5.1); Sodium 137 mmol/L (136-145)
[2018-10-14] MEDS: Lidocaine 5% Patch 1 PATCH TP (09:34)
[2018-10-14] MEDS: Pantoprazole 40 MG VIAL IVP (09:34)
[2018-10-14] MEDS: Potassium Chloride 20 MEQ TABCR 40 MEQ PO ×2 (09:35→19:53)
[2018-10-14] MEDS: buPROPion-XL 150 MG TABCR 450 MG PO (09:35)
[2018-10-14] MEDS: Magnesium Chloride 64 MG TABCR PO ×2 (09:35→19:53)
[2018-10-14] MEDS: Aspirin E.C. 81 MG TABEC PO (09:36)
[2018-10-14] MEDS: CIPROFLOXACIN 400 MG/200 ML BAG 200 MG IVPB ×2 (09:36→22:41)
[2018-10-14] MEDS: Ferrous Gluconate 324 MG TAB PO (09:36)
[2018-10-14] MEDS: Magnesium Oxide 400 MG TAB PO (09:36)
[2018-10-14] MEDS: amLODIPine 5 MG TAB PO (09:36)
[2018-10-14] MEDS: Folic Acid 1 MG TAB PO (09:36)
[2018-10-14] MEDS: Multivitamin TAB 1 TAB PO (09:36)
--- NOTE | 2018-10-14 11:21 | OT.INTREAT ---
Date of service: 10/14/18 Time of Service: 09:50 Occupational Therapy Notes Occupational Therapy Inpatient Treatment Note Date: 10/14/18 PRECAUTIONS: Fall, Standard SUBJECTIVE: Pt was walking with SPORTING GOODS SALES MANAGER prior to OT session. She reports that she would like to get washed up and that she is tired this morning. OBJECTIVE: PAIN:no c/o pain although states she has discomfort in her creases FUNCTIONAL MOBILITY Sit-stand: SBA Stand-sit: SBA Bed-Chair: SBA, FWW Chair-bed: SBA, FWW BATHING: Upper Body: Standing at sink with FWW, S (I) with washing face, sitting in chair (I) washing upper body with max (A) back and max (A) set up Lower Body: (I) with min (A) (B) feet. DRESSING: Upper Extremity: Sitting in chair (I) don and [facility] gown Lower Extremity: (I) with adaptive equipment with good technique GROOMING: Standing at sink with FWW, (I) brushing teeth TOILETING: NT EATING: (I) ASSESSMENT/PLAN: Pt is progressing her functional activity tolerance. She was able to perform some of her ADLs in the standing position. Pt would benefit from skilled OT services for energy conservation techniques and increased functional activity tolerance for standing ADLs. TREATMENT CODES/TIME: 30938x4, 25 minutes (09:50) MIKI Herrera/[facility]
--- NOTE | 2018-10-14 11:28 | OTTR_ITS ---
Date of service: 10/14/18 Time of Service: 09:50 Occupational Therapy Notes Occupational Therapy Inpatient Treatment Note Date: 10/14/18 PRECAUTIONS: Fall, Standard SUBJECTIVE: Pt was walking with MANAGER OF PROJECT MANAGEMENT prior to OT session. She reports that she would like to get washed up and that she is tired this morning. OBJECTIVE: PAIN:no c/o pain although states she has discomfort in her creases FUNCTIONAL MOBILITY Sit-stand: SBA Stand-sit: SBA Bed-Chair: SBA, FWW Chair-bed: SBA, FWW BATHING: Upper Body: Standing at sink with FWW, S (I) with washing face, sitting in chair (I) washing upper body with max (A) back and max (A) set up Lower Body: (I) with min (A) (B) feet. DRESSING: Upper Extremity: Sitting in chair (I) don and [facility] gown Lower Extremity: (I) with adaptive equipment with good technique GROOMING: Standing at sink with FWW, (I) brushing teeth TOILETING: NT EATING: (I) ASSESSMENT/PLAN: Pt is progressing her functional activity tolerance. She was able to perform some of her ADLs in the standing position. Pt would benefit from skilled OT services for energy conservation techniques and increased functional activity tolerance for standing ADLs. TREATMENT CODES/TIME: 25697z1, 25 minutes (09:50) MIKI Herrera/[facility]
--- NOTE | 2018-10-14 11:46 | PGE_ITS ---
Date of Service Date of service: 10/14/18 Time of Service: 11:45 Assessment and Plan (1) Colitis: Current visit: Yes Status: Acute 78 y/o female s/p sigmoid colon resection and anastomosis > 3 months ago. Findings of severe colitis in sigmoid/rectosigmoid on CT. Cipro/Flagyl started in the ED. C diff screen (-). Liquid brown stool in rectal vault and vaginal vault on exam this am. Contamination vs possible rectovaginal fistula. She is on chronic steroids and may have had localized infection complicating her healing. She has had a complete hysterectomy. Will obtain CT abd/pelvis with rectal contrast to better evaluate the pelvic region. Rule out abscess collection/phlegmon. If no fistula identified on CT, then may need to consider exam under anesthesia, possible flexible sigmoidoscopy. Hold stool softeners. Discussed findings and workup plans with patient. If there is a definite rectovaginal fistula, then may need referral to colorectal surgery for further surgical management. Discussed with Dr. Lugo. Per request, will transfer patient to surgical service with medical consult to hospitalists. Subjective Interval history since last seen: Patient seen with nurse at bedside. Patient notes that her abdominal pain is only mild at this time. Nurse notes that patient seems to have pain whenever she eats. Patient indicates that pain is in the left lower quadrant. Denies nausea or vomiting. Nurse notes that liquid stool seems to be more in the vaginal area than the rectal area when the patient gets cleaned up. Patient also notes some bubbling more towards the front. Labs noted. CRP - 5.35. Exam Const General: cooperative, no acute distress and well developed Nutritional Appearance: obese Orientation: alert and oriented x3 [facility] Head: normocephalic and atraumatic Eyes Sclera: sclerae normal Resp Effort & Inspection: normal respiratory effort and able to speak in complete sentences Cardio Jugular venous pressure: no JVD GI Inspection: non-distended, obesity and scar (midline scar well-healed) Palpation: soft, not firm, no guarding, no masses, not rigid and tender in the LLQ (mild) Rectal Exam - female: normal sphincter tone, No fecal impaction, No mass (no induration/mass palpable along rectal wall) and other (liquid, light brown stool in rectal vault, no gross blood) External Female Exam: normal appearance of the urethra (fajardo in place), erythema (vaginal vault/labia) and other (liquid brown stool in vaginal vault on digital exam, no definite induration) Objective Objective Clinical Data: Abnormal lab results 10/14/18 10/14/18 Range/Units 06:45 06:45 RBC 3.28 L (4.00-5.20) m/cumm Hgb 8.9 L (12.0-15.5) g/dL Hct 28.9 L (36.0-46.0) % MCHC 30.8 L (32.0-36.0) g/dL RDW 18.0 H (11.7-14.6) % Absolute Lymphocytes 0.74 L (1.2-3.4) k/cumm Absolute Monocytes 0.89 H (0.11-0.7) k/cumm Glucose 119 H (70-100) mg/dL Calcium 7.0 L (8.5-10.1) mg/dL Magnesium 1.7 L (1.8-2.4) mg/dL C-Reactive Protein 5.35 H (0.0-0.3) mg/dL Vital Signs Temperature 36.6 C 10/14/18 07:35 Temperature Source Skin 10/14/18 07:35 Pulse 65 10/14/18 07:35 Pulse Rhythm Regular 10/14/18 00:00 Pulse Strength Normal 10/12/18 09:39 Respiratory Rate 18 10/14/18 07:35 Respiratory Effort 10/14/18 00:00 Respiratory Depth Normal 10/14/18 00:00 Respiratory Pattern Normal 10/14/18 00:00 Blood Pressure 114/66 10/14/18 07:35 Blood Pressure Mean 80 10/12/18 09:39 Pulse Oximetry 95 10/14/18 07:35 Oxygen Delivery Method Room Air 10/14/18 07:35 Oxygen Flow Rate 0 10/14/18 07:35 Pain Level 7 10/14/18 07:35 Comment 10/14/18 04:20 Intake & Output 10/13/18 10/13/18 10/14/18 11:59 23:59 11:59 Intake Total 2096.25 / 4940.883 2844.633 / 4940.883 747.367 / 747.367 Output Total 1200 / 2100 900 / 2100 650 / 650 Balance 896.25 / 2840.883 1944.633 / 2840.883 97.367 / 97.367 Weight 76.8 kg 77 kg Intake: IV 1256.25 / 3210.883 1954.633 / 3210.883 547.367 / 547.367 Oral 840 / 1730 890 / 1730 200 / 200 Output: Urine 1200 / 2100 900 / 2100 650 / 650 Other: Urine Color Yellow Light Bonnie Light Bonnie Dark Bonnie Urine Appearance Clear Clear Clear Comment catheter advanced slightly, flushed per Dr. Lugo Stool Size Moderate Moderate Moderate Stool Characteristics Soft Liquid Soft Formed Brown Laboratory Results WBC 8.38 k/cumm (4.4-10.8) D 10/14/18 06:45 RBC 3.28 m/cumm (4.00-5.20) L 10/14/18 06:45 Hgb 8.9 g/dL (12.0-15.5) L 10/14/18 06:45 Hct 28.9 % (36.0-46.0) L 10/14/18 06:45 MCV 88.1 fL (80-95) 10/14/18 06:45 MCH 27.1 pg (27.0-33.0) 10/14/18 06:45 MCHC 30.8 g/dL (32.0-36.0) L 10/14/18 06:45 RDW 18.0 % (11.7-14.6) H 10/14/18 06:45 Plt Count 288 x1000/uL (130-400) 10/14/18 06:45 MPV 10.2 fL (8.0-11.0) 10/14/18 06:45 Immature Gran % 0.6 10/14/18 06:45 Neutrophils % 79.9 10/14/18 06:45 Lymphocytes % 8.8 10/14/18 06:45 Monocytes % 10.6 10/14/18 06:45 Eosinophils % 0.1 10/14/18 06:45 Basophils % 0.0 10/14/18 06:45 Absolute Neutrophils 6.70 k/cumm (1.2-6.7) 10/14/18 06:45 Absolute Lymphocytes 0.74 k/cumm (1.2-3.4) L 10/14/18 06:45 Absolute Monocytes 0.89 k/cumm (0.11-0.7) H 10/14/18 06:45 Absolute Eosinophils 0.01 k/cumm (0.0-0.7) 10/14/18 06:45 Absolute Basophils 0.00 k/cumm (0.0-0.2) 10/14/18 06:45 Sodium 137 mmol/L (136-145) 10/14/18 06:45 Potassium 4.6 mmol/L (3.5-5.1) 10/14/18 06:45 Chloride 106 mmol/L (98-107) 10/14/18 06:45 Carbon Dioxide 22.1 mmol/L (21.0-32.0) 10/14/18 06:45 Anion Gap 8.9 mmol/L (3-11) 10/14/18 06:45 BUN 8 mg/dL (7-18) 10/14/18 06:45 Creatinine 0.58 mg/dL (0.55-1.02) 10/14/18 06:45 Estimated GFR/1.73 m2 >= 60.00 (mL/min/1.73m2) 10/14/18 06:45 Glucose 119 mg/dL (70-100) H 10/14/18 06:45 Calcium 7.0 mg/dL (8.5-10.1) L 10/14/18 06:45 Magnesium 1.7 mg/dL (1.8-2.4) L 10/14/18 06:45 Total Bilirubin 0.4 mg/dL (0.2-1.0) 10/12/18 06:09 AST 16 U/L (15-37) 10/12/18 06:09 ALT 17 U/L (12-78) 10/12/18 06:09 Alkaline Phosphatase 94 U/L (46-116) 10/12/18 06:09 Troponin I < 0.02 ng/mL (0.00-0.06) 10/12/18 06:09 C-Reactive Protein 5.35 mg/dL (0.0-0.3) H 10/14/18 06:45 Total Protein 6.6 g/dL (6.4-8.2) 10/12/18 06:09 Albumin 2.4 g/dL (3.4-5.0) L 10/12/18 06:09 Lipase 38 U/L (73-393) L 10/12/18 06:09 Urine Color Cancelled 10/12/18 06:14 Urine Clarity Cancelled 10/12/18 06:14 Urine pH Cancelled 10/12/18 06:14 Ur Specific [place] Cancelled 10/12/18 06:14 Urine Protein Cancelled 10/12/18 06:14 Urine Ketones Cancelled 10/12/18 06:14 Urine Blood Cancelled 10/12/18 06:14 Urine Nitrite Cancelled 10/12/18 06:14 Urine Bilirubin Cancelled 10/12/18 06:14 Urine Urobilinogen Cancelled 10/12/18 06:14 Ur Leukocyte Esterase Cancelled 10/12/18 06:14 Urine Glucose Cancelled 10/12/18 06:14 Stl C.difficile Tox PCR Cancelled 10/12/18 19:00 C.difficile Tox Source Cancelled 10/12/18 19:00
--- NOTE | 2018-10-14 12:21 | UCONE_ITS ---
Date of service: 10/14/18 Time of Service: 10:00 History of Present Illness Chief Complaint: Urinary retention Narrative: This is a 78-year-old woman who was seen during her previous hospitalization. At that time, she was having issues emptying her bladder. We found she was actually able to empty greater than 50% of her bladder volume, so we recommended timed voiding alone. She has a history of a bowel perforation that occurred during colonoscopy. She ultimately required an exploratory laparotomy, lysis of adhesions and sigmoid resection with primary anastomosis. She presented to the emergency room with left lower quadrant abdominal pain. She was evaluated with a CT scan which showed inflammatory changes around the anastomotic site. She is receiving broad-spectrum antibiotics. She was unable to void and a Johnson catheter was placed. I have been asked to weigh in on management of her voiding symptoms. FORMERLY [facility] Medical History Leukocytosis (Chronic) Hypokalemia (Acute) Primary osteoarthritis of left knee (Acute 07/30/15) PMR (polymyalgia rheumatica) (Chronic 01/15/16) Osteoporosis (Acute) Osteopenia (Acute 07/30/16) Obstructive sleep apnea syndrome (Acute) Memory impairment (Chronic 06/18/94) Increased body mass index (Acute) Hypothyroidism (Acute 04/05/12) Excessive sweating (Acute 06/02/16) Depressive disorder (Chronic) Insomnia (Acute) Tuberculosis (Chronic) Surgical History H/O dilation and curettage (Acute) S/P tonsillectomy (Acute) Abdominal hysterectomy (~1975) Appendectomy Bilateral salpingectomy with oophorectomy (~1975) Colonoscopy - MAC EGD - MAC (~2003) Laparoscopic, Ovarian Cystectomy Rotator Cuff Repair Family History Mother Heart disease Pneumonia Father Stroke Personal history of malignant neoplasm Heart disease Brother Alcohol abuse Cirrhosis with alcoholism Grandfather Essential hypertension Heart disease Grandmother Personal history of malignant neoplasm Stroke Grandmother Personal history of malignant neoplasm Son Alcohol abuse Social History Smoking/Tobacco Use Status: Former Tobacco Use Alcohol Intake: never Drug use: Never Substance use type: does not use Household members: other 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 A Johnson catheter is in place and is draining clear urine She is awake, alert and oriented. Results Last Vital Signs Temp 36.6 C 10/14/18 07:35 Pulse 65 10/14/18 07:35 Resp 18 10/14/18 07:35 BP 114/66 10/14/18 07:35 Pulse Ox 95 10/14/18 07:35 Labs : 10/14/18 06:45 10/14/18 06:45 Laboratory Results - last 24 hr 10/12/18 10/14/18 10/14/18 19:00 06:45 06:45 WBC 8.38 D RBC 3.28 L Hgb 8.9 L Hct 28.9 L MCV 88.1 MCH 27.1 MCHC 30.8 L RDW 18.0 H Plt Count 288 MPV 10.2 Immature Gran % 0.6 Neutrophils % 79.9 Lymphocytes % 8.8 Monocytes % 10.6 Eosinophils % 0.1 Basophils % 0.0 Absolute Neutrophils 6.70 Absolute Lymphocytes 0.74 L Absolute Monocytes 0.89 H Absolute Eosinophils 0.01 Absolute Basophils 0.00 Sodium 137 Potassium 4.6 Chloride 106 Carbon Dioxide 22.1 Anion Gap 8.9 BUN 8 Creatinine 0.58 Estimated GFR/1.73 m2 >= 60.00 Glucose 119 H Calcium 7.0 L Magnesium 1.7 L C-Reactive Protein 5.35 H Stl C.difficile Tox PCR Cancelled C.difficile Tox Source Cancelled Assessment and Plan (1) Urinary retention with incomplete bladder emptying: Current visit: No Status: Acute It is rather unusual for women to have an obstructive process causing the retention. Typically, they are episodes of retention are more functional. In this woman's case, I would expect that the pelvic inflammation associated with her colon is causing spasms of her pelvic floor muscles leading to retention. I would expect her voiding to improve as the pelvic inflammation is treated. In the interim, we generally recommend timed voiding and clean intermittent catheterization as needed. The patient tells me without any hesitation that she is refusing intermittent catheterization. In that case, I do not see any way around an indwelling catheter. I do not have medications or surgeries that tend to make these women void. We know that we can safely leave an indwelling catheter and women for up to a month. As long as her inflammation is resolved by then, she should be able to void on her own. If her pelvic floor issues continue longer than that, the better long-term option in women is a suprapubic tube. The patient tells me that she is due for a follow-up CT scan to see if her inflammation is improving. I should have more recommendations once we see her CT.
[2018-10-14] MEDS: MORPHine 10 MG/ML VIAL 5 MG IVP (13:12)
--- NOTE | 2018-10-14 14:51 | PT.INTREAT ---
Date of service: 10/14/18 Time of Service: 09:30 PT Notes Inpatient Physical Therapy Treatment Note [facility] Date: 10/14/18 PRECAUTIONS: Fall SUBJECTIVE: Pat is agreeable to participating in PT. OBJECTIVE: PAIN: Patient complains of LLQ discomfort with ther ex BED MOBILITY/TRANSFERS Sit-stand: SBA GAIT Assistive Device: FWW Weight bearing: Full Assist: CGA/SBA Distance: 100' Static standing x3 minutes with FWW and SBA THEREX: Patient completed several standing exercises for lower extremity strengthening, with UE support, as per flow sheet. ASSESSMENT: Patient tolerated session well. She was able to tolerate a progression in gait distance with FWW and CGA/SBA support. She complains of LLQ discomfort with ther ex. Patient would benefit from continued gait and transfer training as well as strengthening for improved mobility and improved activity tolerance. PLAN: Continue with PTs POC TREATMENT CODE/TIME: 25 minutes; 05582, [id number]
--- NOTE | 2018-10-14 15:02 | PT.INNT ---
Date of service: 10/14/18 Time of Service: 15:02 PT Notes 10/14/18 Patient refused afternoon PT session. Will attempt to resume PT services tomorrow morning.
[2018-10-14] MEDS: LORazepam 2 MG/ML VIAL 0.5 MG IVP (15:31)
--- NOTE | 2018-10-14 16:16 | DI.CT_ITS ---
SYMPTOM/DIAGNOSIS: COLITIS, ? RECTOVAGINAL FISTULA ABDOMEN AND PELVIC CT: CT scan of the abdomen and pelvis was performed following the uneventful administration of intravenous, oral and rectal contrast. Comparison CT scan is 10/12/18. Small bilateral pleural effusions and subjacent infiltrates are seen. These infiltrates may represent atelectasis or pneumonia. The liver is normal in size. No evidence of a hepatic mass is seen. The gallbladder is negative. No biliary ductal dilatation is seen. The portal, superior mesenteric and splenic veins are patent. The pancreas and peripancreatic soft tissues are unremarkable as are the spleen and adrenal glands. The kidneys show normal and symmetric enhancement. No suspicious solid renal mass or obstruction is identified. There are bilateral simple renal cysts present. There is a fajardo catheter seen in the decompressed urinary bladder. There is a question of a small amount of contrast seen in the superior aspect of the urinary bladder. No contrast is seen at this time within either ureter. The abdominal aorta shows atherosclerosis. No aneurysmal dilatation is seen. No significant abdominal or pelvic adenopathy is present. No significant ascites is seen. No pneumoperitoneum is present. The bowel shows no evidence of obstruction or inflammation. There are post surgical changes seen near the colorectal junction. The mid sigmoid colon is mildly distended with stool. There is contrast seen within the vaginal vault. The findings would be consistent with a colovaginal fistula. There are degenerative changes seen in the spine. There is an old T 12 compression deformity again noted. IMPRESSION: 1. Contrast seen within the vaginal vault most suggestive of a colovaginal fistula. 2. Question of contrast seen within the urinary bladder and a vesicovaginal or colovesical fistula cannot be excluded. 3. Small bilateral pleural effusions and subjacent infiltrates which may represent atelectasis or pneumonia.
[2018-10-14] MEDS: Omnipaque 350 MG/ML 100 ML BTL IJ (16:24)
--- NOTE | 2018-10-14 16:31 | W.PM.PROGNOT ---
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 She has been transferred to surgery's service, hospitalist will consult. Dr. Gonzalez's exam revealed stool in the vaginal vault. Rectal CT pending. Surgery considering possible flexible sigmoidoscopy. May need referral to colorectal surgery for further surgical management. (2) Colitis: Current visit: Yes Status: Acute Inflammation noted at site of the anastomosis on CT scan. General surgery did not feel that there was a surgical indication on admission. Now with question of rectovaginal fistula. She has been transferred to the surgical service. Continue Cipro Flagyl. Hospitalist service to continue to follow along. (3) UTI (urinary tract infection): Current visit: No Status: Resolved Present on admission. Culture growing greater than 100,000 colonies of gram-positive kareem, mixed. Has Johnson in place. With question of fistula, concern for ongoing infection. Continue empiric Cipro and monitor culture results. Qualifiers: Urinary tract infection type: acute cystitis Hematuria presence: Indwelling urinary catheter type: Encounter type: (4) Urinary retention with incomplete bladder emptying: Current visit: No Status: Acute Chronic urinary retention. Has been seen by urology in the past. Urology consult placed, Dr. Dalton suspects that the inflammation of her colon is contributing to her retention. He generally would recommend timed voiding and clean intermittent catheterization in this case, however, the patient refuses intermittent catheterization, therefore continue indwelling catheter for now. Dr. Dalton will follow along. (5) Ambulatory dysfunction: Current visit: No Status: Acute Continue PT/OT. (6) Adrenal insufficiency: Current visit: No Status: Acute On stress dose steroids, begin to taper and monitor clinically. (7) PMR (polymyalgia rheumatica): Current visit: No Status: Chronic Steroid use. Begin to taper steroids as above. She will need to follow-up with rheumatology upon discharge. (8) Weakness: Current visit: No Status: Acute Continue steroids and PT/OT as above. (9) Compression fracture of body of thoracic vertebra: Current visit: No Status: Acute Pain well controlled at present. Continue home regimen for pain control. May use brace for comfort. (10) Anemia: Current visit: No Status: Acute Chronic, stable. Continue to monitor. 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 (12) DVT prophylaxis: Current visit: No Status: Acute Subcutaneous heparin. (13) Discharge planning issues: Current visit: No Status: Acute She is a DNR/DNI. PT recommends longterm facility. This case was discussed with Dr. Lugo who is in agreement. Subjective Interval history since last seen: Riddhi reports feeling overall better today. She continues to have left lower quadrant pain especially with palpation. Nursing verbalize concern for possible rectovaginal fistula. General surgery consulted, the case was also discussed with SPORTS PHYSICAL THERAPIST by Dr. Lugo. She has been transferred to general surgery service, hospitalist service will continue to follow as consultants. Riddhi reports that her back pain is under control. She denied noticing any stool from her vagina, she continues to have the left lower quadrant pain. She continues on a clear liquid diet, she is tolerating the clear liquids well. She has a Johnson catheter in place, draining clear yellow urine. She denies nausea, vomiting or diarrhea. She denies shortness of breath, coughing, wheezing, chest pain/pressure, palpitations. General surgery has ordered a rectal CT scan to further evaluate for vaginal fistula. General surgery is also considering a flexible sigmoidoscopy. Exam Narrative Exam Narrative: General: Pleasant elderly female, lying in bed, appears comfortable, in no acute distress. Neck: Supple, no JVD. HEENT: Normocephalic, atraumatic. Pupils equal and round, extraocular movements intact, mucous membranes moist. Heart: Regular rate and rhythm, no murmur appreciated. Lungs: Respirations even and unlabored, lung sounds clear to auscultation throughout. GI: abdomen is soft, tender in LLQ with some guarding, nondistended Extremities: Trace nonpitting edema bilaterally, left greater than right, peripheral pulses palpable bilaterally. Objective Objective Clinical Data: Abnormal lab results 10/14/18 10/14/18 Range/Units 06:45 06:45 RBC 3.28 L (4.00-5.20) m/cumm Hgb 8.9 L (12.0-15.5) g/dL Hct 28.9 L (36.0-46.0) % MCHC 30.8 L (32.0-36.0) g/dL RDW 18.0 H (11.7-14.6) % Absolute Lymphocytes 0.74 L (1.2-3.4) k/cumm Absolute Monocytes 0.89 H (0.11-0.7) k/cumm Glucose 119 H (70-100) mg/dL Calcium 7.0 L (8.5-10.1) mg/dL Magnesium 1.7 L (1.8-2.4) mg/dL C-Reactive Protein 5.35 H (0.0-0.3) mg/dL Vital Signs Temperature 36.7 C 10/14/18 12:10 Temperature Source Skin 10/14/18 12:10 Pulse 67 10/14/18 12:10 Pulse Rhythm Regular 10/14/18 08:30 Pulse Strength Normal 10/12/18 09:39 Respiratory Rate 16 10/14/18 12:10 Respiratory Effort Non-Labored 10/14/18 08:30 Respiratory Depth Normal 10/14/18 08:30 Respiratory Pattern Normal 10/14/18 08:30 Blood Pressure 113/65 10/14/18 12:10 Blood Pressure Mean 80 10/12/18 09:39 Pulse Oximetry 98 10/14/18 12:10 Oxygen Delivery Method Room Air 10/14/18 12:10 Oxygen Flow Rate 0 10/14/18 12:10 Pain Level 8 10/14/18 13:12 Comment 10/14/18 04:20 Intake & Output 10/13/18 10/14/18 10/14/18 23:59 11:59 23:59 Intake Total 2844.633 / 4940.883 847.367 / 1147.367 300 / 1147.367 Output Total 900 / 2100 650 / 1375 725 / 1375 Balance 1944.633 / 2840.883 197.367 / -227.633 -425 / -227.633 Weight 77 kg Intake: IV 1953.633 / 3210.883 547.367 / 547.367 Oral 890 / 1730 300 / 600 300 / 600 Output: Urine 900 / 2100 650 / 1375 725 / 1375 Other: Urine Color Light Bonnie Light Bonnie Yellow Dark Bonnie Urine Appearance Clear Clear Clear Comment catheter advanced slightly, flushed per Dr. Lugo Stool Size Moderate Moderate Stool Characteristics Liquid Soft Soft Brown Liquid Brown Laboratory Results WBC 8.38 k/cumm (4.4-10.8) D 10/14/18 06:45 RBC 3.28 m/cumm (4.00-5.20) L 10/14/18 06:45 Hgb 8.9 g/dL (12.0-15.5) L 10/14/18 06:45 Hct 28.9 % (36.0-46.0) L 10/14/18 06:45 MCV 88.1 fL (80-95) 10/14/18 06:45 MCH 27.1 pg (27.0-33.0) 10/14/18 06:45 MCHC 30.8 g/dL (32.0-36.0) L 10/14/18 06:45 RDW 18.0 % (11.7-14.6) H 10/14/18 06:45 Plt Count 288 x1000/uL (130-400) 10/14/18 06:45 MPV 10.2 fL (8.0-11.0) 10/14/18 06:45 Immature Gran % 0.6 10/14/18 06:45 Neutrophils % 79.9 10/14/18 06:45 Lymphocytes % 8.8 10/14/18 06:45 Monocytes % 10.6 10/14/18 06:45 Eosinophils % 0.1 10/14/18 06:45 Basophils % 0.0 10/14/18 06:45 Absolute Neutrophils 6.70 k/cumm (1.2-6.7) 10/14/18 06:45 Absolute Lymphocytes 0.74 k/cumm (1.2-3.4) L 10/14/18 06:45 Absolute Monocytes 0.89 k/cumm (0.11-0.7) H 10/14/18 06:45 Absolute Eosinophils 0.01 k/cumm (0.0-0.7) 10/14/18 06:45 Absolute Basophils 0.00 k/cumm (0.0-0.2) 10/14/18 06:45 Sodium 137 mmol/L (136-145) 10/14/18 06:45 Potassium 4.6 mmol/L (3.5-5.1) 10/14/18 06:45 Chloride 106 mmol/L (98-107) 10/14/18 06:45 Carbon Dioxide 22.1 mmol/L (21.0-32.0) 10/14/18 06:45 Anion Gap 8.9 mmol/L (3-11) 10/14/18 06:45 BUN 8 mg/dL (7-18) 10/14/18 06:45 Creatinine 0.58 mg/dL (0.55-1.02) 10/14/18 06:45 Estimated GFR/1.73 m2 >= 60.00 (mL/min/1.73m2) 10/14/18 06:45 Glucose 119 mg/dL (70-100) H 10/14/18 06:45 Calcium 7.0 mg/dL (8.5-10.1) L 10/14/18 06:45 Magnesium 1.7 mg/dL (1.8-2.4) L 10/14/18 06:45 Total Bilirubin 0.4 mg/dL (0.2-1.0) 10/12/18 06:09 AST 16 U/L (15-37) 10/12/18 06:09 ALT 17 U/L (12-78) 10/12/18 06:09 Alkaline Phosphatase 94 U/L (46-116) 10/12/18 06:09 Troponin I < 0.02 ng/mL (0.00-0.06) 10/12/18 06:09 C-Reactive Protein 5.35 mg/dL (0.0-0.3) H 10/14/18 06:45 Total Protein 6.6 g/dL (6.4-8.2) 10/12/18 06:09 Albumin 2.4 g/dL (3.4-5.0) L 10/12/18 06:09 Lipase 38 U/L (73-393) L 10/12/18 06:09 Urine Color Cancelled 10/12/18 06:14 Urine Clarity Cancelled 10/12/18 06:14 Urine pH Cancelled 10/12/18 06:14 Ur Specific [place] Cancelled 10/12/18 06:14 Urine Protein Cancelled 10/12/18 06:14 Urine Ketones Cancelled 10/12/18 06:14 Urine Blood Cancelled 10/12/18 06:14 Urine Nitrite Cancelled 10/12/18 06:14 Urine Bilirubin Cancelled 10/12/18 06:14 Urine Urobilinogen Cancelled 10/12/18 06:14 Ur Leukocyte Esterase Cancelled 10/12/18 06:14 Urine Glucose Cancelled 10/12/18 06:14 Stl C.difficile Tox PCR Cancelled 10/12/18 19:00 C.difficile Tox Source Cancelled 10/12/18 19:00
[2018-10-14] MEDS: Breeza Beverage 473 ML BTL PO ×2 (16:41→16:44)
--- NOTE | 2018-10-14 17:17 | DI.VRAD_ITS ---
EXAM: CT Abdomen and Pelvis With Contrast EXAM DATE/TIME: 10/14/2018 11:43 AM CLINICAL HISTORY: 78 years old, female; Condition or disease; Other: Colitis, R/O rectovaginal fistula; Prior surgery; Additional info: Oral and rectal contrast administered TECHNIQUE: Imaging protocol: Axial computed tomography images of the abdomen and pelvis with intravenous contrast. Coronal and sagittal reformatted images were created and reviewed. Contrast material: Omnipaque 350 Contrast volume: 100 ml Contrast route: IV COMPARISON: CT ABDOMEN PELVIS W 09/24/2018 2:58 PM FINDINGS: Lower thorax: Heart size upper normal. Linear scarring or atelectasis both lung bases. Bilateral small pleural effusions with associated atelectasis. ABDOMEN: Liver: Diffuse decrease in hepatic parenchymal density, consistent with fatty infiltration. Gallbladder and bile ducts: Normal. No calcified stones. No ductal dilation. Pancreas: Normal. No ductal dilation. Spleen: Normal. No splenomegaly. Adrenals: Normal. No mass. Kidneys and ureters: Cysts noted at both kidneys. Stomach and bowel: Normal. No obstruction. No mucosal thickening. Appendix: No evidence of appendicitis. PELVIS: Bladder: Bladder decompressed by a Johnson catheter. Small amount of intraluminal air consistent with instrumentation. Questionable small amount of contrast noted within the bladder, and a vesicovaginal or colovesical fistula cannot be completely excluded. Reproductive: Contrast contrast noted within the endometrial and vaginal canal consistent with a colovaginal fistula. ABDOMEN and PELVIS: Intraperitoneal space: Normal. No free air. No significant fluid collection. Bones/joints: No acute fracture. No dislocation. Soft tissues: Unremarkable. Vasculature: Normal. No abdominal aortic aneurysm. Lymph nodes: Normal. No enlarged lymph nodes. IMPRESSION: 1. Contrast contrast noted within the endometrial and vaginal canal consistent with a colovaginal fistula. 2. Bladder decompressed by a Johnson catheter. Small amount of intraluminal air consistent with instrumentation. Questionable small amount of contrast noted within the bladder, and a vesicovaginal or colovesical fistula cannot be completely excluded. Correlate clinically. 3. Bilateral small pleural effusions with associated atelectasis. Dictated and Authenticated by: Boy Bates MD. Ordering:GISEL Serrano MD
--- NOTE | 2018-10-14 18:27 | W.PM.PROGNOT ---
Date of Service Date of service: 10/14/18 Time of Service: 18:34 Assessment and Plan (1) Colitis: Current visit: Yes Status: Acute 78 y/o female s/p sigmoid colon resection and anastomosis > 3 months ago. Findings of severe colitis in sigmoid/rectosigmoid on CT. Cipro/Flagyl started in the ED. C diff screen (-). Liquid brown stool in rectal vault and vaginal vault on exam this am. She is on chronic steroids and may have had localized infection complicating her healing. She has had a complete hysterectomy. 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 Question of slight contrast in bladder on CT per VRADS. Will review with Dr. Dalton tomorrow. Urine appears clear on exam so a rectovesicle fistula seems unlikely. UTIs probably related to contamination from rectovaginal fistula. 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 No abscess noted. Patient does not have a h/o pelvic/colorectal malignancy, radiation, or foreign body in the area. She does not appear to be septic. Hopefully the fistula can heal with bowel rest/ antibiotics. Will place PICC and start TPN tomorrow. Continue IV ABX. If not healing, she may need referral to colorectal surgery for further surgical management. Plans reviewed with patient and nurse. Patient agreeable with plans as outlined above. Subjective Interval history since last seen: Patient seen with nurse at bedside. No new complaints. Tolerating clears. CT results reviewed with patient and nurse. Findings suspicious for rectovaginal fistula. Possible contrast seen in bladder per VRADS. CT was done with only oral and rectal contrast. Exam Const General: cooperative and no acute distress Orientation: alert and oriented x3 HENMT Head: normocephalic and atraumatic Resp Effort & Inspection: normal respiratory effort and able to speak in complete sentences Cardio Jugular venous pressure: no JVD Objective Objective Clinical Data: Abnormal lab results 10/14/18 10/14/18 Range/Units 06:45 06:45 RBC 3.28 L (4.00-5.20) m/cumm Hgb 8.9 L (12.0-15.5) g/dL Hct 28.9 L (36.0-46.0) % MCHC 30.8 L (32.0-36.0) g/dL RDW 18.0 H (11.7-14.6) % Absolute Lymphocytes 0.74 L (1.2-3.4) k/cumm Absolute Monocytes 0.89 H (0.11-0.7) k/cumm Glucose 119 H (70-100) mg/dL Calcium 7.0 L (8.5-10.1) mg/dL Magnesium 1.7 L (1.8-2.4) mg/dL C-Reactive Protein 5.35 H (0.0-0.3) mg/dL Vital Signs Temperature 36.7 C 10/14/18 12:10 Temperature Source Skin 10/14/18 12:10 Pulse 67 10/14/18 12:10 Pulse Rhythm Regular 10/14/18 15:30 Pulse Strength Normal 10/12/18 09:39 Respiratory Rate 16 10/14/18 12:10 Respiratory Effort Non-Labored 10/14/18 15:30 Respiratory Depth Normal 10/14/18 15:30 Respiratory Pattern Normal 10/14/18 15:30 Blood Pressure 113/65 10/14/18 12:10 Blood Pressure Mean 80 10/12/18 09:39 Pulse Oximetry 98 10/14/18 12:10 Oxygen Delivery Method Room Air 10/14/18 12:10 Oxygen Flow Rate 0 10/14/18 12:10 Pain Level 8 10/14/18 13:12 Comment 10/14/18 04:20 Intake & Output 10/13/18 10/14/18 10/14/18 23:59 11:59 23:59 Intake Total 2844.633 / 4940.883 847.367 / 1743.617 896.25 / 1743.617 Output Total 900 / 2100 650 / 1575 925 / 1575 Balance 1944.633 / 2840.883 197.367 / 168.617 -28.75 / 168.617 Weight 77 kg Intake: IV 1954.633 / 3210.883 547.367 / 1143.617 596.25 / 1143.617 Oral 890 / 1730 300 / 600 300 / 600 Output: Urine 900 / 2100 650 / 1575 925 / 1575 Other: Urine Color Light Bonnie Light Bonnie Yellow Dark Bonnie Urine Appearance Clear Clear Clear Comment catheter advanced slightly, flushed per Dr. Lugo Stool Size Moderate Moderate Stool Characteristics Liquid Soft Soft Brown Liquid Brown Laboratory Results WBC 8.38 k/cumm (4.4-10.8) D 10/14/18 06:45 RBC 3.28 m/cumm (4.00-5.20) L 10/14/18 06:45 Hgb 8.9 g/dL (12.0-15.5) L 10/14/18 06:45 Hct 28.9 % (36.0-46.0) L 10/14/18 06:45 MCV 88.1 fL (80-95) 10/14/18 06:45 MCH 27.1 pg (27.0-33.0) 10/14/18 06:45 MCHC 30.8 g/dL (32.0-36.0) L 10/14/18 06:45 RDW 18.0 % (11.7-14.6) H 10/14/18 06:45 Plt Count 288 x1000/uL (130-400) 10/14/18 06:45 MPV 10.2 fL (8.0-11.0) 10/14/18 06:45 Immature Gran % 0.6 10/14/18 06:45 Neutrophils % 79.9 10/14/18 06:45 Lymphocytes % 8.8 10/14/18 06:45 Monocytes % 10.6 10/14/18 06:45 Eosinophils % 0.1 10/14/18 06:45 Basophils % 0.0 10/14/18 06:45 Absolute Neutrophils 6.70 k/cumm (1.2-6.7) 10/14/18 06:45 Absolute Lymphocytes 0.74 k/cumm (1.2-3.4) L 10/14/18 06:45 Absolute Monocytes 0.89 k/cumm (0.11-0.7) H 10/14/18 06:45 Absolute Eosinophils 0.01 k/cumm (0.0-0.7) 10/14/18 06:45 Absolute Basophils 0.00 k/cumm (0.0-0.2) 10/14/18 06:45 Sodium 137 mmol/L (136-145) 10/14/18 06:45 Potassium 4.6 mmol/L (3.5-5.1) 10/14/18 06:45 Chloride 106 mmol/L (98-107) 10/14/18 06:45 Carbon Dioxide 22.1 mmol/L (21.0-32.0) 10/14/18 06:45 Anion Gap 8.9 mmol/L (3-11) 10/14/18 06:45 BUN 8 mg/dL (7-18) 10/14/18 06:45 Creatinine 0.58 mg/dL (0.55-1.02) 10/14/18 06:45 Estimated GFR/1.73 m2 >= 60.00 (mL/min/1.73m2) 10/14/18 06:45 Glucose 119 mg/dL (70-100) H 10/14/18 06:45 Calcium 7.0 mg/dL (8.5-10.1) L 10/14/18 06:45 Magnesium 1.7 mg/dL (1.8-2.4) L 10/14/18 06:45 Total Bilirubin 0.4 mg/dL (0.2-1.0) 10/12/18 06:09 AST 16 U/L (15-37) 10/12/18 06:09 ALT 17 U/L (12-78) 10/12/18 06:09 Alkaline Phosphatase 94 U/L (46-116) 10/12/18 06:09 Troponin I < 0.02 ng/mL (0.00-0.06) 10/12/18 06:09 C-Reactive Protein 5.35 mg/dL (0.0-0.3) H 10/14/18 06:45 Total Protein 6.6 g/dL (6.4-8.2) 10/12/18 06:09 Albumin 2.4 g/dL (3.4-5.0) L 10/12/18 06:09 Lipase 38 U/L (73-393) L 10/12/18 06:09 Urine Color Cancelled 10/12/18 06:14 Urine Clarity Cancelled 10/12/18 06:14 Urine pH Cancelled 10/12/18 06:14 Ur Specific [place] Cancelled 10/12/18 06:14 Urine Protein Cancelled 10/12/18 06:14 Urine Ketones Cancelled 10/12/18 06:14 Urine Blood Cancelled 10/12/18 06:14 Urine Nitrite Cancelled 10/12/18 06:14 Urine Bilirubin Cancelled 10/12/18 06:14 Urine Urobilinogen Cancelled 10/12/18 06:14 Ur Leukocyte Esterase Cancelled 10/12/18 06:14 Urine Glucose Cancelled 10/12/18 06:14 Stl C.difficile Tox PCR Cancelled 10/12/18 19:00 C.difficile Tox Source Cancelled 10/12/18 19:00 Objective Narrative Objective Narrative: Patient Name: NATASHA JENKINS AUnit #: [id number]: MS Ordering Provider: : ADM IN Primary Care Provider: Liz Granado M.D.Date of Exam: 10/14/18Sex: F : 1Age: 78 Exam(s) EXAM: CT Abdomen and Pelvis With Contrast EXAM DATE/TIME: 10/14/2018 11:43 AM CLINICAL HISTORY: 78 years old, female; Condition or disease; Other: Colitis, R/O rectovaginal fistula; Prior surgery; Additional info: Oral and rectal contrast administered TECHNIQUE: Imaging protocol: Axial computed tomography images of the abdomen and pelvis with intravenous contrast. Coronal and sagittal reformatted images were created and reviewed. Contrast material: Omnipaque 350 Contrast volume: 100 ml Contrast route: IV COMPARISON: CT ABDOMEN PELVIS W 09/24/2018 2:58 PM FINDINGS: Lower thorax: Heart size upper normal. Linear scarring or atelectasis both lung bases. Bilateral small pleural effusions with associated atelectasis. ABDOMEN: Liver: Diffuse decrease in hepatic parenchymal density, consistent with fatty infiltration. Gallbladder and bile ducts: Normal. No calcified stones. No ductal dilation. Pancreas: Normal. No ductal dilation. Spleen: Normal. No splenomegaly. Adrenals: Normal. No mass. Kidneys and ureters: Cysts noted at both kidneys. Stomach and bowel: Normal. No obstruction. No mucosal thickening. Appendix: No evidence of appendicitis. PELVIS: Bladder: Bladder decompressed by a Johnson catheter. Small amount of intraluminal air consistent with instrumentation. Questionable small amount of contrast noted within the bladder, and a vesicovaginal or colovesical fistula cannot be completely excluded. Reproductive: Contrast contrast noted within the endometrial and vaginal canal consistent with a colovaginal fistula. ABDOMEN and PELVIS: Intraperitoneal space: Normal. No free air. No significant fluid collection. Bones/joints: No acute fracture. No dislocation. Soft tissues: Unremarkable. Vasculature: Normal. No abdominal aortic aneurysm. Lymph nodes: Normal. No enlarged lymph nodes. IMPRESSION: 1. Contrast contrast noted within the endometrial and vaginal canal consistent with a colovaginal fistula. 2. Bladder decompressed by a Johnson catheter. Small amount of intraluminal air consistent with instrumentation. Questionable small amount of contrast noted within the bladder, and a vesicovaginal or colovesical fistula cannot be completely excluded. Correlate clinically. 3. Bilateral small pleural effusions with associated atelectasis. Dictated and Authenticated by: Boy Bates MD. Ordering:GISEL Serrano MD Ordered By: CC: Dictated By: Reports vrad 10/14/18 1143 10/14/18 1717 Transcribed By: Jodie Schultz This is privileged, confidential information intended only for the provider named. Any use or distribution by any person other than this provider is strictly prohibited. If you receive this report in error, please notify us immediately at [phone] and return the original report to us at the address above. Thank-you.
[2018-10-14] MEDS: Patch Removal 1 EACH TP (18:33)
[2018-10-14] MEDS: Zolpidem 5 MG TAB PO (22:42)
[2018-10-14] MEDS: Normal Saline 1,000 ML 100 ML IV (22:42)
[2018-10-14] MEDS: Melatonin 3 MG TAB 6 MG PO (22:42)
[2018-10-15] VITALS (8 sets, daily range): BP systolic 114–131; BP diastolic 62–75; PULSE 62–74; RESP 14–20; TEMP 36–37.1; O2SAT 95–99
[2018-10-15] MEDS: Normal Saline Flush 10 ML SYR IVP ×4 (00:31→16:04)
[2018-10-15] MEDS: Hydrocortisone SOD SUC. 100 MG VIAL 50 MG IVP ×2 (00:31→12:38)
[2018-10-15] MEDS: Heparin 5,000 UNITS/ML VIAL 5000 UNITS SC ×2 (00:32→16:03)
[2018-10-15] MEDS: metroNIDAZOLE 500 MG/100 ML BAG 100 MG IVPB ×3 (03:51→19:45)
[2018-10-15] MEDS: Levothyroxine 125 MCG TAB PO (06:17)
--- NOTE | 2018-10-15 07:43 | PDOC.CMPRO ---
- If Service Date Differs Date of service: 10/15/18 Time of Service: 07:43 Care Management Progress Note S/O:Riddhi was sitting up in bed, holding her abdomen, moaning in pain when CM visited. She stated that her pain was an 8 out of 10; she had just received pain medication and was waiting for it to work. Riddhi's Ed was also in the room during the visit. CT scan of the abdomen confirmed the presence of a colovaginal fistula. A PICC line will be placed later today and TPN started. Both Riddhi and Ed had questions about medication management at home and about insurance coverage. Questions were answered. A thorough medication review will be done at the time of discharge. A:Riddhi is a 78 y/o female admitted with colitis, UTI and failure to thrive. P:Riddhi is receiving IV antibiotics for a urinary tract infection and physical therapy for strengthening, ambulation and balance. She remains acute hospital level of care. PT consult was completed and short term rehab was recommended, followed by in home services including PT but Riddhi wants to return home.CM to continue to provide support to patient, family, care team ongoing discharge planning.
--- NOTE | 2018-10-15 08:08 | PGE_ITS ---
Date of Service Date of service: 10/15/18 Time of Service: 08:01 Assessment and Plan (1) Urinary retention with incomplete bladder emptying: Current visit: No Status: Acute (2) Rectovaginal fistula: Current visit: No Status: Acute I do not believe that she has a colovesical fistula at this point in time. Clinically, we generally see many coliforms in the urine. In this woman, we only saw vaginal kareem. That is not to say that the fistula will not perform at some point. For the time being, a chronic indwelling catheter is our only recommendation. Subjective Interval history since last seen: This morning, the patient is quite frustrated with her lack of progress. Exam Narrative Exam Narrative: She does not appear septic or toxic. Vital signs are documented elsewhere Her urine is grossly clear in her catheter bag I reviewed her CT scan on the PACS system. There is a clear colovaginal fistula. The radiologist indicated that there may be contrast within the bladder. I can see why the radiologist may think so (on the coronal views) when I look at the sagittal views, I am able to see the entire length of the urethra/catheter and I do not see any evidence of fistula. Objective Objective Clinical Data: Vital Signs Temperature 36.5 C 10/15/18 03:50 Temperature Source Tympanic 10/15/18 03:50 Pulse 62 10/15/18 03:50 Pulse Rhythm Regular 10/15/18 00:32 Pulse Strength Normal 10/12/18 09:39 Respiratory Rate 14 10/15/18 03:50 Respiratory Effort 10/15/18 00:32 Respiratory Depth Normal 10/15/18 00:32 Respiratory Pattern Normal 10/15/18 00:32 Blood Pressure 131/75 10/15/18 03:50 Blood Pressure Mean 80 10/12/18 09:39 Pulse Oximetry 99 10/15/18 03:50 Oxygen Delivery Method Room Air 10/15/18 03:50 Oxygen Flow Rate 0 10/15/18 03:50 Pain Level 0 10/15/18 03:50 Comment 10/15/18 03:50 Intake & Output 10/14/18 10/14/18 10/15/18 11:59 23:59 11:59 Intake Total 1047.367 / 2747.367 1700.00 / 2747.367 665 / 665 Output Total 650 / 2175 1525 / 2175 750 / 750 Balance 397.367 / 572.367 175.00 / 572.367 -85 / -85 Weight 77 kg 77.8 kg Intake: IV 747.367 / 2147.367 1400.00 / 2147.367 615 / 615 Oral 300 / 600 300 / 600 50 / 50 Output: Urine 650 / 2175 1525 / 2175 750 / 750 Other: Urine Color Light Bonnie Yellow Straw Urine Appearance Clear Clear Clear Stool Size Moderate Stool Characteristics Soft Soft Liquid Brown Laboratory Results WBC 8.38 k/cumm (4.4-10.8) D 10/14/18 06:45 RBC 3.28 m/cumm (4.00-5.20) L 10/14/18 06:45 Hgb 8.9 g/dL (12.0-15.5) L 10/14/18 06:45 Hct 28.9 % (36.0-46.0) L 10/14/18 06:45 MCV 88.1 fL (80-95) 10/14/18 06:45 MCH 27.1 pg (27.0-33.0) 10/14/18 06:45 MCHC 30.8 g/dL (32.0-36.0) L 10/14/18 06:45 RDW 18.0 % (11.7-14.6) H 10/14/18 06:45 Plt Count 288 x1000/uL (130-400) 10/14/18 06:45 MPV 10.2 fL (8.0-11.0) 10/14/18 06:45 Immature Gran % 0.6 10/14/18 06:45 Neutrophils % 79.9 10/14/18 06:45 Lymphocytes % 8.8 10/14/18 06:45 Monocytes % 10.6 10/14/18 06:45 Eosinophils % 0.1 10/14/18 06:45 Basophils % 0.0 10/14/18 06:45 Absolute Neutrophils 6.70 k/cumm (1.2-6.7) 10/14/18 06:45 Absolute Lymphocytes 0.74 k/cumm (1.2-3.4) L 10/14/18 06:45 Absolute Monocytes 0.89 k/cumm (0.11-0.7) H 10/14/18 06:45 Absolute Eosinophils 0.01 k/cumm (0.0-0.7) 10/14/18 06:45 Absolute Basophils 0.00 k/cumm (0.0-0.2) 10/14/18 06:45 Sodium 137 mmol/L (136-145) 10/14/18 06:45 Potassium 4.6 mmol/L (3.5-5.1) 10/14/18 06:45 Chloride 106 mmol/L (98-107) 10/14/18 06:45 Carbon Dioxide 22.1 mmol/L (21.0-32.0) 10/14/18 06:45 Anion Gap 8.9 mmol/L (3-11) 10/14/18 06:45 BUN 8 mg/dL (7-18) 10/14/18 06:45 Creatinine 0.58 mg/dL (0.55-1.02) 10/14/18 06:45 Estimated GFR/1.73 m2 >= 60.00 (mL/min/1.73m2) 10/14/18 06:45 Glucose 119 mg/dL (70-100) H 10/14/18 06:45 Calcium 7.0 mg/dL (8.5-10.1) L 10/14/18 06:45 Magnesium 1.7 mg/dL (1.8-2.4) L 10/14/18 06:45 Total Bilirubin 0.4 mg/dL (0.2-1.0) 10/12/18 06:09 AST 16 U/L (15-37) 10/12/18 06:09 ALT 17 U/L (12-78) 10/12/18 06:09 Alkaline Phosphatase 94 U/L (46-116) 10/12/18 06:09 Troponin I < 0.02 ng/mL (0.00-0.06) 10/12/18 06:09 C-Reactive Protein 5.35 mg/dL (0.0-0.3) H 10/14/18 06:45 Total Protein 6.6 g/dL (6.4-8.2) 10/12/18 06:09 Albumin 2.4 g/dL (3.4-5.0) L 10/12/18 06:09 Lipase 38 U/L (73-393) L 10/12/18 06:09 Urine Color Cancelled 10/12/18 06:14 Urine Clarity Cancelled 10/12/18 06:14 Urine pH Cancelled 10/12/18 06:14 Ur Specific [place] Cancelled 10/12/18 06:14 Urine Protein Cancelled 10/12/18 06:14 Urine Ketones Cancelled 10/12/18 06:14 Urine Blood Cancelled 10/12/18 06:14 Urine Nitrite Cancelled 10/12/18 06:14 Urine Bilirubin Cancelled 10/12/18 06:14 Urine Urobilinogen Cancelled 10/12/18 06:14 Ur Leukocyte Esterase Cancelled 10/12/18 06:14 Urine Glucose Cancelled 10/12/18 06:14 Stl C.difficile Tox PCR Cancelled 10/12/18 19:00 C.difficile Tox Source Cancelled 10/12/18 19:00
[2018-10-15 08:21] LABS: Abs Immature Grans 0.12 k/cumm (0.0-0.09); HCT 31.6 % (36.0-46.0); HGB 9.6 g/dL (12.0-15.5); Mean Corp. HGB Concentration 30.4 g/dL (32.0-36.0); Mean Corpuscular Volume 88.8 fL (80-95); Mean Platelet Volume 9.8 fL (8.0-11.0); Platelet Count 315 x1000/uL (130-400); RBC 3.56 m/cumm (4.00-5.20); White Blood Cell Count 6.01 k/cumm (4.4-10.8)
[2018-10-15 08:37] LABS: BUN 6 mg/dL (7-18); CREATININE 0.64 mg/dL (0.55-1.02); Calcium 7.2 mg/dL (8.5-10.1); Chloride 110 mmol/L (98-107); Glucose 104 mg/dL (70-100); Magnesium 1.9 mg/dL (1.8-2.4); Potassium 4.7 mmol/L (3.5-5.1); Sodium 140 mmol/L (136-145)
[2018-10-15] MEDS: Pantoprazole 40 MG VIAL IVP (08:43)
[2018-10-15] MEDS: Lidocaine 5% Patch 1 PATCH TP (08:44)
[2018-10-15 08:45] LABS: Absolute Eosinophil Count 0.12 k/cumm (0.0-0.7); Absolute Lymphocyte Count 1.08 k/cumm (1.2-3.4); Absolute Monocyte Count 0.66 k/cumm (0.11-0.7); Absolute Neutrophil Count 3.97 k/cumm (1.2-6.7); Anisocytosis 2+; Atypical Lymphocytes % 1; Diff Comment Manual Differential; Polychromasia Present
[2018-10-15 08:46] LABS: Poikilocytes 2+
[2018-10-15] MEDS: Aspirin E.C. 81 MG TABEC PO (08:46)
[2018-10-15] MEDS: buPROPion-XL 150 MG TABCR 450 MG PO (08:46)
[2018-10-15] MEDS: Ferrous Gluconate 324 MG TAB PO (08:46)
[2018-10-15] MEDS: Folic Acid 1 MG TAB PO (08:46)
[2018-10-15] MEDS: Multivitamin TAB 1 TAB PO (08:46)
[2018-10-15] MEDS: Magnesium Chloride 64 MG TABCR PO (08:47)
[2018-10-15] MEDS: amLODIPine 5 MG TAB PO (08:47)
[2018-10-15] MEDS: Potassium Chloride 20 MEQ TABCR 40 MEQ PO (08:47)
[2018-10-15] MEDS: MORPHine 10 MG/ML VIAL 5 MG IVP (10:13)
[2018-10-15] MEDS: CIPROFLOXACIN 400 MG/200 ML BAG 200 MG IVPB ×2 (10:14→22:01)
--- NOTE | 2018-10-15 12:14 | W.NUTCONSULT ---
Date of service: 10/15/18 Time of Service: 12:14 Nutritional Consult ASSESSMENT: Nutrition consult for TPN recommendations. Ms. Manuel is admitted for severe colitis. She has had clear liquids on 10/12 but otherwise has been NPO since. She is 62 and 198 lbs/78 kg today. Her BMI is 32.4 kg/m2 consistent with class 1 obesity. Her adjusted ideal body weight is 159lbs/72.3kg. A year ago she was 91 kg which is 1 14% weight loss in one year and in April of 2018 she was 83.4 kg which is a 6% weight loss in 4 months. Neither degree of weight loss is clinically significant however it is notable as it was unintentional. Her estimated energy needs are 9949-8098 kcal/day (REE x 1.2). Her estimated protein needs are 72g-87 g/day (1.0-1.2g/kg of adjusted IBW/day). Her estimated fluid needs are 2160 ml/day (30 ml/kg adjusted IBW/day) NUTRITIONAL DIAGNOSIS: Inability to take oral foods and fluids related to altered gastrointestinal status. INTERVENTION: Recommend the following TPN regimen: 2.0 L/day of amino acids 4.25% and dextrose 10% daily. 250 ml of 20% lipids daily MONITORING AND EVALUATION: 1, Will monitor her progress and weight and watch for advance to PO. 2. Will evaluate nutrition care plan ongoing and adjust as needed. Time Spent in Nutritional Counseling and Treatment: TRICIA
--- NOTE | 2018-10-15 12:30 | OTDS_ITS ---
Date of service: 10/15/18 Time of Service: 09:00 Occupational Therapy Notes Occupational Therapy Inpatient Discharge Summary Dates of Service: 10/13/18-10/15/18 Date: 10/15/18 Referring Doctor:Mena Lugo MD OT Orders: Eval and Treat Precautions: Fall, Standard PATIENT PROFILE/ADMITTING DIAGNOSIS: Pt is a 78 year old female who was admitted for left-sided abdominal pain, decreased appetite, and weakness. Patient was then admitted to Med Surg with diagnosis of acute colitis, urinary tract infec tion, and failure to thrive. Past Medical History: Medical History Raynaud's disease (Acute) Primary osteoarthritis of left knee (Acute 07/30/15) PMR (polymyalgia rheumatica) (Chronic 01/15/16) Osteoporosis (Acute) Osteopenia (Acute 07/30/16) Obstructive sleep apnea syndrome (Acute) Non-alcoholic fatty liver disease (Acute) Memory impairment (Acute 06/18/94) Increased body mass index (Acute) Hypothyroidism (Acute 04/05/12) Fracture, calcaneus closed (Acute 09/19/14) Excessive sweating (Acute 06/02/16) Depressive disorder (Acute) Colon polyp (Acute 06/28/18) Cataract (Acute 07/28/14) Benign paroxysmal positional vertigo (Acute) Abdominal pain (Acute 10/31/13) Insomnia (Acute) Tuberculosis (Chronic) Surgical History H/O dilation and curettage (Acute) S/P tonsillectomy (Acute) Abdominal hysterectomy (~1975) Appendectomy Bilateral salpingectomy with oophorectomy (~1975) Colonoscopy - MAC EGD - MAC (~2003) Laparoscopic, Ovarian Cystectomy Rotator Cuff Repair Social History/Home Situation: Pt lives in a single story home with a finished basement with her . She reports that her (A) with her ADL/IADL routines. She notes that she is not currently driving. She reports that she is able to perform dressing (I) but it takes her a while and makes her tired. She sits in the shower and her (A) if she feels tired or unable to do so. Equipment owned/DME: Shower bench, 4WW, commode, electric recliner chair SUBJECTIVE: Pt was sitting in chair when OT arrived. Pt is agreeable to OT session. OBJECTIVE: General Observation: IV (L) UE, Johnson Mental Status: A&Ox3 ROM: RUE AROM WFL L UE AROM WFL STRENGTH: RUE 4/5 throughout globally LUE 4/5 throughout globally FUNCTIONAL MOBILITY/ADLS: Transfers Sit-Stand S, 4WW Stand-sit S, 4WW BATHING Sitting in chair in shower Bathing UE (I), max (A) back, hair (I) Bathing LE (I) DRESSING Dressing UE Sitting in chair (I) with donning and doffing hospital gown Dressing LE Sitting in chair (I) with donning and doffing (B) socks. GROOMING NT TOILETING on toilet (I) with (A) to make sure catheter tube is clean. EATING (I) sitting in chair BALANCE: Static sitting normal Dynamic Sitting normal Static Standing good Dynamic Standing fair ASSESSMENT: Patient is a 78-year-old female referred to occupational therapy services with diagnosis of acute colitis, urinary tract infection, failure to thrive, and chronic low back pain. Pt has been seen for 4 OT services. She was provided education and training in sock aid, gifted teacher, dressing hook, and shoe horn to increase her (I) in LE dressing. She is able to perform this with good technique. Pt has been able to perform her ADLs at baseline level of function at this time. She was able to tolerate her shower well today. She requires (A) with wiping although this is not a functional limitation for pt as she is able to perform this she just requires (A) to make sure her catheter tube is clean. GOALS 1. Transfers (I) LRD 2. Dressing in sitting position (I) with UE/LE dressing. (MET) 3. Bathing Standing at sink (I) with UE bathing, sitting for LE bathing (I). (MET) 4. Toileting (I) on toilet (MET) 5. Eating (I) (MET) 6. Grooming- (I) standing at sink for teeth and hair with LRD. (MET) PLAN OF CARE/TREATMENT PLAN: Discharge from skilled OT services at this time. DISCHARGE RECOMMENDATIONS Short term stay at SNF vs home with home health services for assessment of ADLs and safety in home environment. TREATMENT TIME/MINUTES/CODES [id number], 25 minutes (09:00) Anamika Raymond OTR/[facility]
[2018-10-15] MEDS: Nystatin POWDER 60 GM JAR TP ×2 (12:39→19:45)
[2018-10-15] MEDS: Nystatin CREAM 15 GM TUBE TP ×2 (12:40→19:45)
--- NOTE | 2018-10-15 13:00 | W.PM.PROGNOT ---
Date of Service Date of service: 10/15/18 Time of Service: 13:02 Assessment and Plan (1) Colitis: Current visit: No Status: Acute 78 y/o female s/p sigmoid colon resection and anastomosis > 3 months ago. Findings of severe colitis in sigmoid/rectosigmoid on admitting CT. Cipro/Flagyl started in the ED. C diff screen (-). 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 Colovesical fistula not ruled out on CT but not clinically apparent. Urology consult appreciated. (2) Rectovaginal fistula: Current visit: No Status: Acute Rectovaginal fistula demonstrated on CT. No abscess noted. Normal WBC. Afebrile. Patient does not appear to be septic. Patient does not have a h/o pelvic/colorectal malignancy, radiation, or foreign body in the area. She does not have any h/o IBD on colonoscopy or pathology reports from 06/2018. These would be factors that could adversely affect healing of the fistula. Hopefully the fistula can heal with bowel rest/ antibiotics/ local wound care, and optimization of her nutritional status. PICC line to be placed today and TPN started per nutrition recommendations. Continue IV ABX. If not healing, she may need referral to colorectal surgery for further surgical management. All of the above discussed at length with the patient and her with her nurse present. Patient had indicated this morning that she wanted to consider transfer to [facility]. A friend of hers had recommended 2 urogynecologists with whom she is acquainted. Discussed with her and her that a rectovaginal fistula falls under the specialty of a general surgeon or colorectal surgeon. Discussed that there would have to be an accepting physician for her to be transferred. Discussed with her that we would prefer to avoid surgical intervention if possible, but if the fistula does not resolve with conservative management then I would suggest follow-up with colorectal surgery. Certainly, if she clinically deteriorates, then we would reassess our management/transfer options urgently. All questions answered. After discussion with her , the patient and her indicate that they wish to stay and see how she does with conservative management as outlined above. Discussed that I will be happy to contact [facility] re: transfer if she changes her mind. See orders. Subjective Interval history since last seen: Patient seen with and nurse at the bedside. Reviewed CT findings of rectovaginal fistula on 10/14/18. Urology consult reviewed. Recommendation to keep fajardo in noted. No clinical sign of colovesical fistula at this time per urology notes. Patient noted some suprapubic/pelvis pain at this time which had migrated down from the LLQ. ? gas pain. No nausea or vomiting. (+) loose BM. Labs noted. Exam Const General: cooperative, no acute distress and well developed Nutritional Appearance: obese Orientation: alert and oriented x3 HENMT Head: normocephalic and atraumatic Eyes Sclera: sclerae normal Resp Effort & Inspection: normal respiratory effort and able to speak in complete sentences Cardio Jugular venous pressure: no JVD GI Inspection: non-distended and scar (midline well-healed) Palpation: soft, not firm, no guarding, not rigid and tender (mildly tender suprapubic/LLQ) Auscultation: normal bowel sounds Objective Objective Clinical Data: Abnormal lab results 10/15/18 10/15/18 Range/Units 08:05 08:05 RBC 3.56 L (4.00-5.20) m/cumm Hgb 9.6 L (12.0-15.5) g/dL Hct 31.6 L (36.0-46.0) % MCHC 30.4 L (32.0-36.0) g/dL RDW 19.0 H (11.7-14.6) % Absolute Lymphocytes 1.08 L (1.2-3.4) k/cumm Chloride 110 H (98-107) mmol/L BUN 6 L (7-18) mg/dL Glucose 104 H (70-100) mg/dL Calcium 7.2 L (8.5-10.1) mg/dL Vital Signs Temperature 36.4 C L 10/15/18 10:20 Temperature Source Tympanic 10/15/18 10:20 Pulse 70 10/15/18 10:20 Pulse Rhythm Regular 10/15/18 12:17 Pulse Strength Normal 10/12/18 09:39 Respiratory Rate 20 10/15/18 10:20 Respiratory Effort Non-Labored 10/15/18 12:17 Respiratory Depth Normal 10/15/18 12:17 Respiratory Pattern Normal 10/15/18 12:17 Blood Pressure 121/62 10/15/18 10:20 Blood Pressure Mean 80 10/12/18 09:39 Pulse Oximetry 96 10/15/18 10:20 Oxygen Delivery Method Room Air 10/15/18 10:20 Oxygen Flow Rate 0 10/15/18 10:20 Pain Level 9 10/15/18 10:13 Comment 10/15/18 10:20 Intake & Output 10/14/18 10/15/18 10/15/18 23:59 11:59 23:59 Intake Total 1700.00 / 2747.367 665 / 885 220 / 885 Output Total 1525 / 2175 1100 / 1600 500 / 1600 Balance 175.00 / 572.367 -435 / -715 -280 / -715 Weight 77.8 kg Intake: IV 1400.00 / 2147.367 615 / 635 20 / 635 Oral 300 / 600 50 / 250 200 / 250 Output: Urine 1525 / 2175 1100 / 1600 500 / 1600 Other: Urine Color Yellow Yellow Yellow Urine Appearance Clear Clear Clear Stool Size Small Stool Characteristics Soft Liquid Liquid Brown Laboratory Results WBC 6.01 k/cumm (4.4-10.8) 10/15/18 08:05 RBC 3.56 m/cumm (4.00-5.20) L 10/15/18 08:05 Hgb 9.6 g/dL (12.0-15.5) L 10/15/18 08:05 Hct 31.6 % (36.0-46.0) L 10/15/18 08:05 MCV 88.8 fL (80-95) 10/15/18 08:05 MCH 27.0 pg (27.0-33.0) 10/15/18 08:05 MCHC 30.4 g/dL (32.0-36.0) L 10/15/18 08:05 RDW 19.0 % (11.7-14.6) H 10/15/18 08:05 Plt Count 315 x1000/uL (130-400) 10/15/18 08:05 MPV 9.8 fL (8.0-11.0) 10/15/18 08:05 Immature Gran % See Differential 10/15/18 08:05 Neutrophils % 66.0 10/15/18 08:05 Lymphocytes % 17.0 10/15/18 08:05 Atypical Lymphs % 1 10/15/18 08:05 Monocytes % 11.0 10/15/18 08:05 Eosinophils % 2.0 10/15/18 08:05 Basophils % 0.0 10/15/18 08:05 Myelocytes % 3.0 % 10/15/18 08:05 Absolute Neutrophils 3.97 k/cumm (1.2-6.7) 10/15/18 08:05 Absolute Lymphocytes 1.08 k/cumm (1.2-3.4) L 10/15/18 08:05 Absolute Monocytes 0.66 k/cumm (0.11-0.7) 10/15/18 08:05 Absolute Eosinophils 0.12 k/cumm (0.0-0.7) 10/15/18 08:05 Absolute Basophils 0.00 k/cumm (0.0-0.2) 10/15/18 08:05 Differential Comment Manual differential 10/15/18 08:05 RBC Morphology See below 10/15/18 08:05 Polychromasia Present 10/15/18 08:05 Poikilocytosis 2+ 10/15/18 08:05 Anisocytosis 2+ 10/15/18 08:05 Sodium 140 mmol/L (136-145) 10/15/18 08:05 Potassium 4.7 mmol/L (3.5-5.1) 10/15/18 08:05 Chloride 110 mmol/L (98-107) H 10/15/18 08:05 Carbon Dioxide 22.0 mmol/L (21.0-32.0) 10/15/18 08:05 Anion Gap 8.0 mmol/L (3-11) 10/15/18 08:05 BUN 6 mg/dL (7-18) L 10/15/18 08:05 Creatinine 0.64 mg/dL (0.55-1.02) 10/15/18 08:05 Estimated GFR/1.73 m2 >= 60.00 (mL/min/1.73m2) 10/15/18 08:05 Glucose 104 mg/dL (70-100) H 10/15/18 08:05 Calcium 7.2 mg/dL (8.5-10.1) L 10/15/18 08:05 Magnesium 1.9 mg/dL (1.8-2.4) 10/15/18 08:05 Total Bilirubin 0.4 mg/dL (0.2-1.0) 10/12/18 06:09 AST 16 U/L (15-37) 10/12/18 06:09 ALT 17 U/L (12-78) 10/12/18 06:09 Alkaline Phosphatase 94 U/L (46-116) 10/12/18 06:09 Troponin I < 0.02 ng/mL (0.00-0.06) 10/12/18 06:09 C-Reactive Protein 5.35 mg/dL (0.0-0.3) H 10/14/18 06:45 Total Protein 6.6 g/dL (6.4-8.2) 10/12/18 06:09 Albumin 2.4 g/dL (3.4-5.0) L 10/12/18 06:09 Lipase 38 U/L (73-393) L 10/12/18 06:09 Urine Color Cancelled 10/12/18 06:14 Urine Clarity Cancelled 10/12/18 06:14 Urine pH Cancelled 10/12/18 06:14 Ur Specific [place] Cancelled 10/12/18 06:14 Urine Protein Cancelled 10/12/18 06:14 Urine Ketones Cancelled 10/12/18 06:14 Urine Blood Cancelled 10/12/18 06:14 Urine Nitrite Cancelled 10/12/18 06:14 Urine Bilirubin Cancelled 10/12/18 06:14 Urine Urobilinogen Cancelled 10/12/18 06:14 Ur Leukocyte Esterase Cancelled 10/12/18 06:14 Urine Glucose Cancelled 10/12/18 06:14 Stl C.difficile Tox PCR Cancelled 10/12/18 19:00 C.difficile Tox Source Cancelled 10/12/18 19:00 Objective Narrative Objective Narrative: Patient Name: NATASHA JENKINS AUnit #: [id number]: MS Ordering Provider: Maggie Gonzalez M.D. : ADM IN Primary Care Provider: Liz Granado M.D.Date of Exam: 10/14/18Sex: F : 1Age: 78 Exam(s) a CT:CT abdomen & pelvis w SYMPTOM/DIAGNOSIS: COLITIS, ? RECTOVAGINAL FISTULA ABDOMEN AND PELVIC CT: CT scan of the abdomen and pelvis was performed following the uneventful administration of intravenous, oral and rectal contrast. Comparison CT scan is 10/12/18. Small bilateral pleural effusions and subjacent infiltrates are seen. These infiltrates may represent atelectasis or pneumonia. The liver is normal in size. No evidence of a hepatic mass is seen. The gallbladder is negative. No biliary ductal dilatation is seen. The portal, superior mesenteric and splenic veins are patent. The pancreas and peripancreatic soft tissues are unremarkable as are the spleen and adrenal glands. The kidneys show normal and symmetric enhancement. No suspicious solid renal mass or obstruction is identified. There are bilateral simple renal cysts present. There is a fajardo catheter seen in the decompressed urinary bladder. There is a question of a small amount of contrast seen in the superior aspect of the urinary bladder. No contrast is seen at this time within either ureter. The abdominal aorta shows atherosclerosis. No aneurysmal dilatation is seen. No significant abdominal or pelvic adenopathy is present. No significant ascites is seen. No pneumoperitoneum is present. The bowel shows no evidence of obstruction or inflammation. There are post surgical changes seen near the colorectal junction. The mid sigmoid colon is mildly distended with stool. There is contrast seen within the vaginal vault. The findings would be consistent with a colovaginal fistula. There are degenerative changes seen in the spine. There is an old T 12 compression deformity again noted. IMPRESSION: 1. Contrast seen within the vaginal vault most suggestive of a colovaginal fistula. 2. Question of contrast seen within the urinary bladder and a vesicovaginal or colovesical fistula cannot be excluded. 3. Small bilateral pleural effusions and subjacent infiltrates which may represent atelectasis or pneumonia. [id number]: Total DLP = 0.00 mGy-cm Ordered By: Maggie Gonzalez M.D. CC: Dictated By: Attila Pitts M.D. 10/15/18 0857 Transcribed By: Gala Joy 10/15/18 0909 This is privileged, confidential information intended only for the provider named. Any use or distribution by any person other than this provider is strictly prohibited. If you receive this report in error, please notify us immediately at [phone] and return the original report to us at the address above. Thank-you.
--- NOTE | 2018-10-15 13:04 | PGE_ITS ---
Date of Service Date of service: 10/15/18 Time of Service: 13:02 Assessment and Plan (1) Colitis: Current visit: No Status: Acute 78 y/o female s/p sigmoid colon resection and anastomosis > 3 months ago. Findings of severe colitis in sigmoid/rectosigmoid on admitting CT. Cipro/Flagyl started in the ED. C diff screen (-). 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 Colovesical fistula not ruled out on CT but not clinically apparent. Urology consult appreciated. (2) Rectovaginal fistula: Current visit: No Status: Acute Rectovaginal fistula demonstrated on CT. No abscess noted. Normal WBC. Afebrile. Patient does not appear to be septic. Patient does not have a h/o pelvic/colorectal malignancy, radiation, or foreign body in the area. She does not have any h/o IBD on colonoscopy or pathology reports from 06/2018. These would be factors that could adversely affect healing of the fistula. Hopefully the fistula can heal with bowel rest/ antibiotics/ local wound care, and optimization of her nutritional status. PICC line to be placed today and TPN started per nutrition recommendations. Continue IV ABX. If not healing, she may need referral to colorectal surgery for further surgical management. All of the above discussed at length with the patient and her with her nurse present. Patient had indicated this morning that she wanted to consider transfer to [facility] [place]. A friend of hers had recommended 2 urogynecologists with whom she is acquainted. Discussed with her and her that a rectovaginal fistula falls under the specialty of a general surgeon or colorectal surgeon. Discussed that there would have to be an accepting physician for her to be transferred. Discussed with her that we would prefer to avoid surgical intervention if possible, but if the fistula does not resolve with conservative management then I would suggest follow-up with colorectal surgery. Certainly, if she clinically deteriorates, then we would reassess our management/transfer options urgently. All questions answered. After discussion with her , the patient and her indicate that they wish to stay and see how she does with conservative management as outlined above. Discussed that I will be happy to contact [facility] [place] re: transfer if she changes her mind. See orders. Subjective Interval history since last seen: Patient seen with and nurse at the bedside. Reviewed CT findings of rectovaginal fistula on 10/14/18. Urology consult reviewed. Recommendation to keep fajardo in noted. No clinical sign of colovesical fistula at this time per urology notes. Patient noted some suprapubic/pelvis pain at this time which had migrated down from the LLQ. ? gas pain. No nausea or vomiting. (+) loose BM. Labs noted. Exam Const General: cooperative, no acute distress and well developed Nutritional Appearance: obese Orientation: alert and oriented x3 HENMT Head: normocephalic and atraumatic Eyes Sclera: sclerae normal Resp Effort & Inspection: normal respiratory effort and able to speak in complete sentences Cardio Jugular venous pressure: no JVD GI Inspection: non-distended and scar (midline well-healed) Palpation: soft, not firm, no guarding, not rigid and tender (mildly tender suprapubic/LLQ) Auscultation: normal bowel sounds Objective Objective Clinical Data: Abnormal lab results 10/15/18 10/15/18 Range/Units 08:05 08:05 RBC 3.56 L (4.00-5.20) m/cumm Hgb 9.6 L (12.0-15.5) g/dL Hct 31.6 L (36.0-46.0) % MCHC 30.4 L (32.0-36.0) g/dL RDW 19.0 H (11.7-14.6) % Absolute Lymphocytes 1.08 L (1.2-3.4) k/cumm Chloride 110 H (98-107) mmol/L BUN 6 L (7-18) mg/dL Glucose 104 H (70-100) mg/dL Calcium 7.2 L (8.5-10.1) mg/dL Vital Signs Temperature 36.4 C L 10/15/18 10:20 Temperature Source Tympanic 10/15/18 10:20 Pulse 70 10/15/18 10:20 Pulse Rhythm Regular 10/15/18 12:17 Pulse Strength Normal 10/12/18 09:39 Respiratory Rate 20 10/15/18 10:20 Respiratory Effort Non-Labored 10/15/18 12:17 Respiratory Depth Normal 10/15/18 12:17 Respiratory Pattern Normal 10/15/18 12:17 Blood Pressure 121/62 10/15/18 10:20 Blood Pressure Mean 80 10/12/18 09:39 Pulse Oximetry 96 10/15/18 10:20 Oxygen Delivery Method Room Air 10/15/18 10:20 Oxygen Flow Rate 0 10/15/18 10:20 Pain Level 9 10/15/18 10:13 Comment 10/15/18 10:20 Intake & Output 10/14/18 10/15/18 10/15/18 23:59 11:59 23:59 Intake Total 1700.00 / 2747.367 665 / 885 220 / 885 Output Total 1525 / 2175 1100 / 1600 500 / 1600 Balance 175.00 / 572.367 -435 / -715 -280 / -715 Weight 77.8 kg Intake: IV 1400.00 / 2147.367 615 / 635 20 / 635 Oral 300 / 600 50 / 250 200 / 250 Output: Urine 1525 / 2175 1100 / 1600 500 / 1600 Other: Urine Color Yellow Yellow Yellow Urine Appearance Clear Clear Clear Stool Size Small Stool Characteristics Soft Liquid Liquid Brown Laboratory Results WBC 6.01 k/cumm (4.4-10.8) 10/15/18 08:05 RBC 3.56 m/cumm (4.00-5.20) L 10/15/18 08:05 Hgb 9.6 g/dL (12.0-15.5) L 10/15/18 08:05 Hct 31.6 % (36.0-46.0) L 10/15/18 08:05 MCV 88.8 fL (80-95) 10/15/18 08:05 MCH 27.0 pg (27.0-33.0) 10/15/18 08:05 MCHC 30.4 g/dL (32.0-36.0) L 10/15/18 08:05 RDW 19.0 % (11.7-14.6) H 10/15/18 08:05 Plt Count 315 x1000/uL (130-400) 10/15/18 08:05 MPV 9.8 fL (8.0-11.0) 10/15/18 08:05 Immature Gran % See Differential 10/15/18 08:05 Neutrophils % 66.0 10/15/18 08:05 Lymphocytes % 17.0 10/15/18 08:05 Atypical Lymphs % 1 10/15/18 08:05 Monocytes % 11.0 10/15/18 08:05 Eosinophils % 2.0 10/15/18 08:05 Basophils % 0.0 10/15/18 08:05 Myelocytes % 3.0 % 10/15/18 08:05 Absolute Neutrophils 3.97 k/cumm (1.2-6.7) 10/15/18 08:05 Absolute Lymphocytes 1.08 k/cumm (1.2-3.4) L 10/15/18 08:05 Absolute Monocytes 0.66 k/cumm (0.11-0.7) 10/15/18 08:05 Absolute Eosinophils 0.12 k/cumm (0.0-0.7) 10/15/18 08:05 Absolute Basophils 0.00 k/cumm (0.0-0.2) 10/15/18 08:05 Differential Comment Manual differential 10/15/18 08:05 RBC Morphology See below 10/15/18 08:05 Polychromasia Present 10/15/18 08:05 Poikilocytosis 2+ 10/15/18 08:05 Anisocytosis 2+ 10/15/18 08:05 Sodium 140 mmol/L (136-145) 10/15/18 08:05 Potassium 4.7 mmol/L (3.5-5.1) 10/15/18 08:05 Chloride 110 mmol/L (98-107) H 10/15/18 08:05 Carbon Dioxide 22.0 mmol/L (21.0-32.0) 10/15/18 08:05 Anion Gap 8.0 mmol/L (3-11) 10/15/18 08:05 BUN 6 mg/dL (7-18) L 10/15/18 08:05 Creatinine 0.64 mg/dL (0.55-1.02) 10/15/18 08:05 Estimated GFR/1.73 m2 >= 60.00 (mL/min/1.73m2) 10/15/18 08:05 Glucose 104 mg/dL (70-100) H 10/15/18 08:05 Calcium 7.2 mg/dL (8.5-10.1) L 10/15/18 08:05 Magnesium 1.9 mg/dL (1.8-2.4) 10/15/18 08:05 Total Bilirubin 0.4 mg/dL (0.2-1.0) 10/12/18 06:09 AST 16 U/L (15-37) 10/12/18 06:09 ALT 17 U/L (12-78) 10/12/18 06:09 Alkaline Phosphatase 94 U/L (46-116) 10/12/18 06:09 Troponin I < 0.02 ng/mL (0.00-0.06) 10/12/18 06:09 C-Reactive Protein 5.35 mg/dL (0.0-0.3) H 10/14/18 06:45 Total Protein 6.6 g/dL (6.4-8.2) 10/12/18 06:09 Albumin 2.4 g/dL (3.4-5.0) L 10/12/18 06:09 Lipase 38 U/L (73-393) L 10/12/18 06:09 Urine Color Cancelled 10/12/18 06:14 Urine Clarity Cancelled 10/12/18 06:14 Urine pH Cancelled 10/12/18 06:14 Ur Specific [place] Cancelled 10/12/18 06:14 Urine Protein Cancelled 10/12/18 06:14 Urine Ketones Cancelled 10/12/18 06:14 Urine Blood Cancelled 10/12/18 06:14 Urine Nitrite Cancelled 10/12/18 06:14 Urine Bilirubin Cancelled 10/12/18 06:14 Urine Urobilinogen Cancelled 10/12/18 06:14 Ur Leukocyte Esterase Cancelled 10/12/18 06:14 Urine Glucose Cancelled 10/12/18 06:14 Stl C.difficile Tox PCR Cancelled 10/12/18 19:00 C.difficile Tox Source Cancelled 10/12/18 19:00 Objective Narrative Objective Narrative: Patient Name: NATASHA JENKINS AUnit #: [id number]: MS Ordering Provider: Maggie Gonzalez M.D. : ADM IN Primary Care Provider: Liz Granado M.D.Date of Exam: 10/14/18Sex: F : 1Age: 78 Exam(s) a CT:CT abdomen & pelvis w SYMPTOM/DIAGNOSIS: COLITIS, ? RECTOVAGINAL FISTULA ABDOMEN AND PELVIC CT: CT scan of the abdomen and pelvis was performed following the uneventful administration of intravenous, oral and rectal contrast. Comparison CT scan is 10/12/18. Small bilateral pleural effusions and subjacent infiltrates are seen. These infiltrates may represent atelectasis or pneumonia. The liver is normal in size. No evidence of a hepatic mass is seen. The g allbladder is negative. No biliary ductal dilatation is seen. The portal, superior mesenteric and splenic veins are patent. The pancreas and peripancreatic soft tissues are unremarkable as are the spleen and adrenal glands. The kidneys show normal and symmetric enhancement. No suspicious solid renal mass or obstruction is identified. There are bilateral simple renal cysts present. There is a fajardo catheter seen in the decompressed urinary bladder. There is a question of a small amount of contrast seen in the superior aspect of the urinary bladder. No contrast is seen at this time within either ureter. The abdominal aorta shows atherosclerosis. No aneurysmal dilatation is seen. No significant abdominal or pelvic adenopathy is present. No significant ascites is seen. No pneumoperitoneum is present. The bowel shows no evidence of obstruction or inflammation. There are post surgical changes seen near the colorectal junction. The mid sigmoid colon is mildly distended with stool. There is contrast seen within the vaginal vault. The findings would be consistent with a colovaginal fistula. There are degenerative changes seen in the spine. There is an old T 12 c ompression deformity again noted. IMPRESSION: 1. Contrast seen within the vaginal vault most suggestive of a colovaginal fistula. 2. Question of contrast seen within the urinary bladder and a vesicovaginal or colovesical fistula cannot be excluded. 3. Small bilateral pleural effusions and subjacent infiltrates which may represent atelectasis or pneumonia. [id number]: Total DLP = 0.00 mGy-cm Ordered By: Maggie Gonzalez M.D. CC: Dictated By: Attila Pitts M.D. 10/15/18 0857 Transcribed By: Gala Joy 10/15/18 0909 This is privileged, confidential information intended only for the provider named. Any use or distribution by any person other than this provider is strictly prohibited. If you receive this report in error, please notify us immediately at [phone] and return the original report to us at the address above. Thank-you.
[2018-10-15] MEDS: LORazepam 2 MG/ML VIAL 0.5 MG IVP (13:08)
[2018-10-15] MEDS: ACETAMINOPHEN 1,000 MG/100 ML BTL 400 MG IVPB ×2 (14:31→21:35)
--- NOTE | 2018-10-15 15:35 | CHAPLAIN ---
I visited with Amanda and her this morning. Amanda was very uncomfortable. She had requested earlier through her nurse to have a finished goods inspector visit. I prayed with Amanda. Fr. Pino visited this afternoon.
--- NOTE | 2018-10-15 16:01 | PT.INTREAT ---
Date of service: 10/15/18 Time of Service: 16:01 PT Notes Inpatient Physical Therapy Treatment Note [facility] Date: 10/15/18 PRECAUTIONS: Fall SUBJECTIVE: Pat states that she is feeling better today. OBJECTIVE: PAIN: Patient complained of back pain with bed mobility BED MOBILITY/TRANSFERS Supine-sit: Min A in a.m.; SBA in p.m. Sit-supine: SBA Sit-stand: SBA Stand-sit: SBA GAIT Assistive Device: FWW Weight bearing: Full Assist: SBA Distance: 100' x2 in a.m.; 120' in p.m. Static standing x1 minute with SBA without UE support THEREX: Patient completed a global strengthening program, in a standing position, as per flow sheet. Patient required UE support with lower extremity strengthening exercises in standing position. ASSESSMENT: Patient tolerated sessions with complaints of increased fatigue. She was able to tolerate a progression in gait distance with FWW support and SBA. Patient was also able to tolerate a progression and ther ex program. Patient would benefit from continued gait and transfer training as well as strengthening for improved mobility and improved activity tolerance. Continue with PTs POC PLAN: Continue with PTs POC session TREATMENT CODE/TIME: Session 1: 25 minutes; 01388 x2 Session 2: 30 minutes; 37807, [id number]
--- NOTE | 2018-10-15 16:09 | PTTR_ITS ---
Date of service: 10/15/18 Time of Service: 16:01 PT Notes Inpatient Physical Therapy Treatment Note [facility] Date: 10/15/18 PRECAUTIONS: Fall SUBJECTIVE: Pat states that she is feeling better today. OBJECTIVE: PAIN: Patient complained of back pain with bed mobility BED MOBILITY/TRANSFERS Supine-sit: Min A in a.m.; SBA in p.m. Sit-supine: SBA Sit-stand: SBA Stand-sit: SBA GAIT Assistive Device: FWW Weight bearing: Full Assist: SBA Distance: 100' x2 in a.m.; 120' in p.m. Static standing x1 minute with SBA without UE support THEREX: Patient completed a global strengthening program, in a standing position, as per flow sheet. Patient required UE support with lower extremity strengthening exercises in standing position. ASSESSMENT: Patient tolerated sessions with complaints of increased fatigue. She was able to tolerate a progression in gait distance with FWW support and SBA. Patient was also able to tolerate a progression and ther ex program. Patient would benefit from continued gait and transfer training as well as strengthening for improved mobility and improved activity tolerance. Continue with PTs POC PLAN: Continue with PTs POC session TREATMENT CODE/TIME: Session 1: 25 minutes; 86845 x2 Session 2: 30 minutes; 01134, [id number]
--- NOTE | 2018-10-15 17:06 | W.PM.PROGNOT ---
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 She is on Surgical service with hospitalist consult. Bowel rest with TPN per surgical recommendations. (2) Colitis: Current visit: No Status: Acute Inflammation noted at site of the anastomosis on CT scan. Surgery following. Continue Cipro Flagyl. Hospitalist service to continue to follow along. (3) UTI (urinary tract infection): Current visit: No Status: Resolved Present on admission. Culture growing greater than 100,000 colonies of gram-positive kareem, mixed. Has Johnson in place. With fistula there is concern for ongoing infection. Continue empiric Cipro. Qualifiers: Urinary tract infection type: acute cystitis Hematuria presence: Indwelling urinary catheter type: Encounter type: (4) Urinary retention with incomplete bladder emptying: Current visit: No Status: Acute Chronic urinary retention. Has been seen by urology, Dr. Dalton suspects that the inflammation of her colon is contributing to her retention. He does not suspect colovesical fistual as no coliforms were found on urine culture. He recommends continue indwelling catheter for now. (5) Ambulatory dysfunction: Current visit: No Status: Acute Continue PT/OT. (6) Adrenal insufficiency: Current visit: No Status: Acute On stress dose steroids, began taper yesterday, no increased weakness. Continue at current dose and taper slowly. Discuss with Rheumatology prior to discharge for recommendations. (7) PMR (polymyalgia rheumatica): Current visit: No Status: Chronic With chronic steroid use. Begin to taper steroids as above. She will need to follow-up with rheumatology upon discharge. (8) Weakness: Current visit: No Status: Acute Continue steroids and PT/OT as above. (9) Compression fracture of body of thoracic vertebra: Current visit: No Status: Acute Pain well controlled at present. Continue home regimen for pain control. May use brace for comfort. (10) Anemia: Current visit: No Status: Acute Chronic, stable. Continue to monitor. 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 (12) DVT prophylaxis: Current visit: No Status: Acute Subcutaneous heparin. (13) Discharge planning issues: Current visit: No Status: Acute She is a DNR/DNI. PT recommends nursing home facility. This case was discussed with Dr. uLgo who is in agreement. Subjective Interval history since last seen: Riddhi reports that her LLQ abdominal pain has subsided today, she does not feel more weak with the decrease in steroids. She continues to have low back pain. She is a surgical patient at this point. The hospitalist service continues to follow along. She had a PICC line placed today and tolerated the procedure well, she is looking forward to less needle sticks. She denied noticing any stool from her vagina. She is on bowel rest. She has a Johnson catheter in place, draining clear yellow urine- no feces noted in catheter bag. She denies nausea, vomiting or diarrhea. She denies shortness of breath, coughing, wheezing, chest pain/pressure, palpitations. Exam Narrative Exam Narrative: General: Pleasant elderly female, lying in bed, appears comfortable, in no acute distress. Neck: Supple, no JVD. HEENT: Normocephalic, atraumatic. Pupils equal and round, extraocular movements intact, mucous membranes dry. Heart: Regular rate and rhythm, no murmur appreciated. Lungs: Respirations even and unlabored, lung sounds clear to auscultation throughout. GI: abdomen is soft, nontender on palpation today, nondistended Extremities: +1 edema to bilateral lower extremities, left greater than right, peripheral pulses palpable bilaterally. Objective Objective Clinical Data: Abnormal lab results 10/15/18 10/15/18 Range/Units 08:05 08:05 RBC 3.56 L (4.00-5.20) m/cumm Hgb 9.6 L (12.0-15.5) g/dL Hct 31.6 L (36.0-46.0) % MCHC 30.4 L (32.0-36.0) g/dL RDW 19.0 H (11.7-14.6) % Absolute Lymphocytes 1.08 L (1.2-3.4) k/cumm Chloride 110 H (98-107) mmol/L BUN 6 L (7-18) mg/dL Glucose 104 H (70-100) mg/dL Calcium 7.2 L (8.5-10.1) mg/dL Vital Signs Temperature 36.2 C L 10/15/18 14:45 Temperature Source Tympanic 10/15/18 14:45 Pulse 74 10/15/18 14:45 Pulse Rhythm Regular 10/15/18 12:17 Pulse Strength Normal 10/12/18 09:39 Respiratory Rate 16 10/15/18 14:45 Respiratory Effort Non-Labored 10/15/18 12:17 Respiratory Depth Normal 10/15/18 12:17 Respiratory Pattern Normal 10/15/18 12:17 Blood Pressure 114/66 10/15/18 14:45 Blood Pressure Mean 80 10/12/18 09:39 Pulse Oximetry 95 10/15/18 14:45 Oxygen Delivery Method Room Air 10/15/18 14:45 Oxygen Flow Rate 0 10/15/18 14:45 Pain Level 9 10/15/18 10:13 Comment 10/15/18 10:20 Intake & Output 10/14/18 10/15/18 10/15/18 23:59 11:59 23:59 Intake Total 1700.00 / 2747.367 665 / 1370 705 / 1370 Output Total 1525 / 2175 1100 / 1750 650 / 1750 Balance 175.00 / 572.367 -435 / -380 55 / -380 Weight 77.8 kg Intake: IV 1400.00 / 2147.367 615 / 1120 505 / 1120 Oral 300 / 600 50 / 250 200 / 250 Output: Urine 1525 / 2175 1100 / 1750 650 / 1750 Other: Urine Color Yellow Yellow Yellow Urine Appearance Clear Clear Clear Stool Size Small Stool Characteristics Soft Liquid Liquid Brown Laboratory Results WBC 6.01 k/cumm (4.4-10.8) 10/15/18 08:05 RBC 3.56 m/cumm (4.00-5.20) L 10/15/18 08:05 Hgb 9.6 g/dL (12.0-15.5) L 10/15/18 08:05 Hct 31.6 % (36.0-46.0) L 10/15/18 08:05 MCV 88.8 fL (80-95) 10/15/18 08:05 MCH 27.0 pg (27.0-33.0) 10/15/18 08:05 MCHC 30.4 g/dL (32.0-36.0) L 10/15/18 08:05 RDW 19.0 % (11.7-14.6) H 10/15/18 08:05 Plt Count 315 x1000/uL (130-400) 10/15/18 08:05 MPV 9.8 fL (8.0-11.0) 10/15/18 08:05 Immature Gran % See Differential 10/15/18 08:05 Neutrophils % 66.0 10/15/18 08:05 Lymphocytes % 17.0 10/15/18 08:05 Atypical Lymphs % 1 10/15/18 08:05 Monocytes % 11.0 10/15/18 08:05 Eosinophils % 2.0 10/15/18 08:05 Basophils % 0.0 10/15/18 08:05 Myelocytes % 3.0 % 10/15/18 08:05 Absolute Neutrophils 3.97 k/cumm (1.2-6.7) 10/15/18 08:05 Absolute Lymphocytes 1.08 k/cumm (1.2-3.4) L 10/15/18 08:05 Absolute Monocytes 0.66 k/cumm (0.11-0.7) 10/15/18 08:05 Absolute Eosinophils 0.12 k/cumm (0.0-0.7) 10/15/18 08:05 Absolute Basophils 0.00 k/cumm (0.0-0.2) 10/15/18 08:05 Differential Comment Manual differential 10/15/18 08:05 RBC Morphology See below 10/15/18 08:05 Polychromasia Present 10/15/18 08:05 Poikilocytosis 2+ 10/15/18 08:05 Anisocytosis 2+ 10/15/18 08:05 Sodium 140 mmol/L (136-145) 10/15/18 08:05 Potassium 4.7 mmol/L (3.5-5.1) 10/15/18 08:05 Chloride 110 mmol/L (98-107) H 10/15/18 08:05 Carbon Dioxide 22.0 mmol/L (21.0-32.0) 10/15/18 08:05 Anion Gap 8.0 mmol/L (3-11) 10/15/18 08:05 BUN 6 mg/dL (7-18) L 10/15/18 08:05 Creatinine 0.64 mg/dL (0.55-1.02) 10/15/18 08:05 Estimated GFR/1.73 m2 >= 60.00 (mL/min/1.73m2) 10/15/18 08:05 Glucose 104 mg/dL (70-100) H 10/15/18 08:05 Calcium 7.2 mg/dL (8.5-10.1) L 10/15/18 08:05 Magnesium 1.9 mg/dL (1.8-2.4) 10/15/18 08:05 Total Bilirubin 0.4 mg/dL (0.2-1.0) 10/12/18 06:09 AST 16 U/L (15-37) 10/12/18 06:09 ALT 17 U/L (12-78) 10/12/18 06:09 Alkaline Phosphatase 94 U/L (46-116) 10/12/18 06:09 Troponin I < 0.02 ng/mL (0.00-0.06) 10/12/18 06:09 C-Reactive Protein 5.35 mg/dL (0.0-0.3) H 10/14/18 06:45 Total Protein 6.6 g/dL (6.4-8.2) 10/12/18 06:09 Albumin 2.4 g/dL (3.4-5.0) L 10/12/18 06:09 Lipase 38 U/L (73-393) L 10/12/18 06:09 Urine Color Cancelled 10/12/18 06:14 Urine Clarity Cancelled 10/12/18 06:14 Urine pH Cancelled 10/12/18 06:14 Ur Specific [place] Cancelled 10/12/18 06:14 Urine Protein Cancelled 10/12/18 06:14 Urine Ketones Cancelled 10/12/18 06:14 Urine Blood Cancelled 10/12/18 06:14 Urine Nitrite Cancelled 10/12/18 06:14 Urine Bilirubin Cancelled 10/12/18 06:14 Urine Urobilinogen Cancelled 10/12/18 06:14 Ur Leukocyte Esterase Cancelled 10/12/18 06:14 Urine Glucose Cancelled 10/12/18 06:14 Stl C.difficile Tox PCR Cancelled 10/12/18 19:00 C.difficile Tox Source Cancelled 10/12/18 19:00
[2018-10-15] MEDS: Normal Saline 1,000 ML 50 ML IV (17:15)
[2018-10-15] MEDS: Patch Removal 1 EACH TP (19:46)
[2018-10-15] MEDS: Zolpidem 5 MG TAB PO (21:32)
[2018-10-15] MEDS: Melatonin 3 MG TAB 6 MG PO (21:32)
[2018-10-16] MEDS: Normal Saline Flush 10 ML SYR IVP ×6 (00:02→23:57)
[2018-10-16] MEDS: Heparin 5,000 UNITS/ML VIAL 5000 UNITS SC ×4 (00:02→23:56)
[2018-10-16] MEDS: Hydrocortisone SOD SUC. 100 MG VIAL 50 MG IVP ×3 (00:02→23:56)
[2018-10-16] MEDS: LORazepam 2 MG/ML VIAL 0.5 MG IVP ×2 (00:51→13:42)
[2018-10-16] MEDS: metroNIDAZOLE 500 MG/100 ML BAG 100 MG IVPB ×3 (03:31→19:22)
[2018-10-16] MEDS: Insulin Aspart 300 UNITS/3 ML PEN SC ×4 (03:32→22:37)
[2018-10-16 04:07] VITALS: BP 128/67; PULSE 66; RESP 13; TEMP 36.5; O2SAT 95
[2018-10-16] MEDS: ACETAMINOPHEN 1,000 MG/100 ML BTL 400 MG IVPB ×2 (05:49→15:48)
[2018-10-16] MEDS: Levothyroxine 125 MCG TAB PO (05:49)
[2018-10-16 07:17] LABS: HCT 29.5 % (36.0-46.0); HGB 8.8 g/dL (12.0-15.5); Mean Corp. HGB Concentration 29.8 g/dL (32.0-36.0); Mean Corpuscular Hemoglobin 26.7 pg (27.0-33.0); Mean Corpuscular Volume 89.7 fL (80-95); Mean Platelet Volume 9.8 fL (8.0-11.0); Platelet Count 292 x1000/uL (130-400); RBC 3.29 m/cumm (4.00-5.20); White Blood Cell Count 7.24 k/cumm (4.4-10.8)
[2018-10-16 07:34] LABS: Anion Gap 7.7 mmol/L (3-11); BUN 9 mg/dL (7-18); CO2 25.3 mmol/L (21.0-32.0); CREATININE 0.68 mg/dL (0.55-1.02); Chloride 107 mmol/L (98-107); Glucose 129 mg/dL (70-100); Magnesium 1.6 mg/dL (1.8-2.4); Potassium 3.7 mmol/L (3.5-5.1); Sodium 140 mmol/L (136-145)
[2018-10-16 07:38] VITALS: BP 138/67; PULSE 65; RESP 20; TEMP 36.6; O2SAT 95
[2018-10-16] MEDS: Ferrous Gluconate 324 MG TAB PO (08:01)
[2018-10-16] MEDS: Multivitamin TAB 1 TAB PO (08:01)
[2018-10-16] MEDS: Folic Acid 1 MG TAB PO (08:01)
[2018-10-16] MEDS: amLODIPine 5 MG TAB PO (08:01)
[2018-10-16] MEDS: buPROPion-XL 150 MG TABCR 450 MG PO (08:01)
[2018-10-16] MEDS: Furosemide 20 MG TAB PO (08:01)
[2018-10-16] MEDS: Pantoprazole 40 MG VIAL IVP ×2 (08:02→19:23)
[2018-10-16] MEDS: Lidocaine 5% Patch 1 PATCH TP (08:02)
[2018-10-16] MEDS: MORPHine 10 MG/ML VIAL 5 MG IVP ×2 (08:03→20:59)
[2018-10-16] MEDS: CIPROFLOXACIN 400 MG/200 ML BAG 200 MG IVPB ×2 (09:48→22:38)
[2018-10-16] MEDS: Nystatin CREAM 15 GM TUBE TP ×2 (09:50→19:22)
[2018-10-16] MEDS: Nystatin POWDER 60 GM JAR TP ×2 (09:50→19:23)
--- NOTE | 2018-10-16 09:58 | CMPROGNOTE_ITS ---
- If Service Date Differs Date of service: 10/16/18 Time of Service: 09:58 Care Management Progress Note S/O: Riddhi is lying in bed when this engineering technical writer visits this morning. She has family in the room with her whom are supportive. Riddhi has a PICC line and is receiving TPN at this time. She also continues on IV antibiotics. No change in DC plan. A:Riddhi is a 78 y/o female admitted with colitis, UTI and failure to thrive. P:Riddhi is receiving IV antibiotics for a urinary tract infection and physical therapy for strengthening, ambulation and balance. She remains acute hospital level of care. PT consult was completed and short term rehab was recommended, followed by in home services including PT but Riddhi wants to return home.CM to continue to provide support to patient, family, care team ongoing discharge planning.
[2018-10-16 10:59] VITALS: BP 125/70; PULSE 76; RESP 18; TEMP 36.6; O2SAT 96
--- NOTE | 2018-10-16 11:04 | PT.INNT ---
Date of service: 10/16/18 Time of Service: 11:04 PT Notes 10/16/18 Refused PT x 2 due to pain and discomfort throughout her body. Ana Rosa Fleming, OFFENSIVE COORDINATOR
[2018-10-16] MEDS: traMADol 50 MG TAB PO ×2 (11:13→23:56)
[2018-10-16] MEDS: Aspirin E.C. 81 MG TABEC PO (11:14)
[2018-10-16] MEDS: POTASSIUM CHLORIDE 20 MEQ/100 ML BAG 50 MEQ IVPB (11:32)
[2018-10-16] MEDS: MAGNESIUM SULFATE 2 GM/50 ML BAG IVPB (11:32)
--- NOTE | 2018-10-16 13:02 | W.PM.PROGNOT ---
Date of Service Date of service: 10/16/18 Time of Service: 13:02 Assessment and Plan (1) Colitis: Current visit: No Status: Acute 78 y/o female s/p sigmoid colon resection and anastomosis > 3 months ago. Findings of severe colitis in sigmoid/rectosigmoid on admitting CT. Cipro/Flagyl started in the ED. C diff screen (-). 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 Colovesical fistula not ruled out on CT but not clinically apparent. Urology consult appreciated. (2) Rectovaginal fistula: Current visit: No Status: Acute Rectovaginal fistula demonstrated on CT. No abscess noted. Normal WBC. Afebrile. Patient does not appear to be septic. Urine is clear in the fajardo tubing/bag. Patient does not have a h/o pelvic/colorectal malignancy, radiation, or foreign body in the area. She does not have any h/o IBD on colonoscopy or pathology reports from 06/2018. These would be factors that could adversely affect healing of the fistula. Hopefully the fistula can heal with bowel rest, antibiotics, local wound care, and optimization of her nutritional status. PICC line placed and TPN started on 10/15/18. Continue IV ABX. Continue current management. OK to have hard candy, ice chips, and po meds. If her pain and diarrhea resolve, then will consider restarting po. May need referral to colorectal surgery for further surgical management if symptoms recur or do not resolve. All of the above again reviewed today with patent, , and grand-daughter. They appeared to understand and agree with the discussion as outlined above. Subjective Interval history since last seen: Patient up in chair. Ambulated in halls earlier this morning. Seen with and grand-daughter at bedside. Patient notes some abdominal discomfort on right side today. Asking for hard candy, sips of Pepsi. Remains afebrile. Labs noted. Lytes being replaced. On TPN. Exam Const General: cooperative, comfortable, no acute distress and well developed Nutritional Appearance: obese Orientation: alert and oriented x3 HENMT Head: normocephalic and atraumatic Eyes Sclera: sclerae normal Resp Effort & Inspection: normal respiratory effort and able to speak in complete sentences Cardio Jugular venous pressure: no JVD Rate: regular rate Rhythm: regular rhythm GI Inspection: non-distended, obesity and scar (midline well-healed) Palpation: soft, not firm, no guarding, no masses, not rigid and tender (mildly tender RLQ - patient has bruises from SQ injections in RLQ) in the LLQ (mild) Auscultation: normal bowel sounds Skin General skin exam: no rashes or lesions noted and no jaundice Objective Objective Clinical Data: Abnormal lab results 10/16/18 10/16/18 Range/Units 06:57 06:57 RBC 3.29 L (4.00-5.20) m/cumm Hgb 8.8 L (12.0-15.5) g/dL Hct 29.5 L (36.0-46.0) % MCH 26.7 L (27.0-33.0) pg MCHC 29.8 L (32.0-36.0) g/dL RDW 19.0 H (11.7-14.6) % Glucose 129 H (70-100) mg/dL Calcium 7.0 L (8.5-10.1) mg/dL Phosphorus 1.0 L (2.6-4.7) mg/dL Magnesium 1.6 L (1.8-2.4) mg/dL Vital Signs Temperature 36.6 C 10/16/18 10:59 Temperature Source Skin 10/16/18 10:59 Pulse 76 10/16/18 10:59 Pulse Rhythm Regular 10/15/18 23:48 Pulse Strength Normal 10/12/18 09:39 Respiratory Rate 18 10/16/18 10:59 Respiratory Effort Non-Labored 10/15/18 23:48 Respiratory Depth Normal 10/15/18 23:48 Respiratory Pattern Normal 10/15/18 23:48 Blood Pressure 125/70 10/16/18 10:59 Blood Pressure Mean 80 10/12/18 09:39 Pulse Oximetry 96 10/16/18 10:59 Oxygen Delivery Method Room Air 10/16/18 10:59 Oxygen Flow Rate 0 10/16/18 10:59 Pain Level 7 10/16/18 11:13 Comment 10/15/18 10:20 Intake & Output 10/15/18 10/16/18 10/16/18 23:59 11:59 23:59 Intake Total 1305 / 2170 10 / 10 Output Total 1700 / 2800 850 / 850 Balance -395 / -630 -840 / -840 Intake: IV 1105 / 1920 Oral 200 / 250 Output: Urine 1700 / 2800 850 / 850 Other: Urine Color Yellow Yellow Urine Appearance Clear Urine Odor Normal Stool Size Small Small Stool Characteristics Soft Soft Formed Laboratory Results WBC 7.24 k/cumm (4.4-10.8) 10/16/18 06:57 RBC 3.29 m/cumm (4.00-5.20) L 10/16/18 06:57 Hgb 8.8 g/dL (12.0-15.5) L 10/16/18 06:57 Hct 29.5 % (36.0-46.0) L 10/16/18 06:57 MCV 89.7 fL (80-95) 10/16/18 06:57 MCH 26.7 pg (27.0-33.0) L 10/16/18 06:57 MCHC 29.8 g/dL (32.0-36.0) L 10/16/18 06:57 RDW 19.0 % (11.7-14.6) H 10/16/18 06:57 Plt Count 292 x1000/uL (130-400) 10/16/18 06:57 MPV 9.8 fL (8.0-11.0) 10/16/18 06:57 Immature Gran % See Differential 10/15/18 08:05 Neutrophils % 66.0 10/15/18 08:05 Lymphocytes % 17.0 10/15/18 08:05 Atypical Lymphs % 1 10/15/18 08:05 Monocytes % 11.0 10/15/18 08:05 Eosinophils % 2.0 10/15/18 08:05 Basophils % 0.0 10/15/18 08:05 Myelocytes % 3.0 % 10/15/18 08:05 Absolute Neutrophils 3.97 k/cumm (1.2-6.7) 10/15/18 08:05 Absolute Lymphocytes 1.08 k/cumm (1.2-3.4) L 10/15/18 08:05 Absolute Monocytes 0.66 k/cumm (0.11-0.7) 10/15/18 08:05 Absolute Eosinophils 0.12 k/cumm (0.0-0.7) 10/15/18 08:05 Absolute Basophils 0.00 k/cumm (0.0-0.2) 10/15/18 08:05 Differential Comment Manual differential 10/15/18 08:05 RBC Morphology See below 10/15/18 08:05 Polychromasia Present 10/15/18 08:05 Poikilocytosis 2+ 10/15/18 08:05 Anisocytosis 2+ 10/15/18 08:05 Sodium 140 mmol/L (136-145) 10/16/18 06:57 Potassium 3.7 mmol/L (3.5-5.1) D 10/16/18 06:57 Chloride 107 mmol/L (98-107) 10/16/18 06:57 Carbon Dioxide 25.3 mmol/L (21.0-32.0) 10/16/18 06:57 Anion Gap 7.7 mmol/L (3-11) 10/16/18 06:57 BUN 9 mg/dL (7-18) 10/16/18 06:57 Creatinine 0.68 mg/dL (0.55-1.02) 10/16/18 06:57 Estimated GFR/1.73 m2 >= 60.00 (mL/min/1.73m2) 10/16/18 06:57 Glucose 129 mg/dL (70-100) H 10/16/18 06:57 Calcium 7.0 mg/dL (8.5-10.1) L 10/16/18 06:57 Phosphorus 1.0 mg/dL (2.6-4.7) L 10/16/18 06:57 Magnesium 1.6 mg/dL (1.8-2.4) L 10/16/18 06:57 Total Bilirubin 0.4 mg/dL (0.2-1.0) 10/12/18 06:09 AST 16 U/L (15-37) 10/12/18 06:09 ALT 17 U/L (12-78) 10/12/18 06:09 Alkaline Phosphatase 94 U/L (46-116) 10/12/18 06:09 Troponin I < 0.02 ng/mL (0.00-0.06) 10/12/18 06:09 C-Reactive Protein 5.35 mg/dL (0.0-0.3) H 10/14/18 06:45 Total Protein 6.6 g/dL (6.4-8.2) 10/12/18 06:09 Albumin 2.4 g/dL (3.4-5.0) L 10/12/18 06:09 Lipase 38 U/L (73-393) L 10/12/18 06:09 Urine Color Cancelled 10/12/18 06:14 Urine Clarity Cancelled 10/12/18 06:14 Urine pH Cancelled 10/12/18 06:14 Ur Specific [place] Cancelled 10/12/18 06:14 Urine Protein Cancelled 10/12/18 06:14 Urine Ketones Cancelled 10/12/18 06:14 Urine Blood Cancelled 10/12/18 06:14 Urine Nitrite Cancelled 10/12/18 06:14 Urine Bilirubin Cancelled 10/12/18 06:14 Urine Urobilinogen Cancelled 10/12/18 06:14 Ur Leukocyte Esterase Cancelled 10/12/18 06:14 Urine Glucose Cancelled 10/12/18 06:14 Stl C.difficile Tox PCR Cancelled 10/12/18 19:00 C.difficile Tox Source Cancelled 10/12/18 19:00
--- NOTE | 2018-10-16 15:18 | PGE_ITS ---
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 She is on Surgical service with hospitalist consult. Bowel rest with TPN per surgical recommendations. Surgery to consider transfer for colorectal surgery as indicated. (2) Colitis: Current visit: No Status: Acute Afebrile, no leukocytosis. Inflammation noted at site of anastomosis on CT scan. Surgery following. Continue Cipro and Flagyl. Hospitalist service to continue to follow along. (3) UTI (urinary tract infection): Current visit: No Status: Resolved Present on admission. Culture growing greater than 100,000 colonies of gram-positive kareem, mixed. Has Johnson in place. With fistula there is concern for ongoing infection. Continue empiric Cipro. Qualifiers: Urinary tract infection type: acute cystitis Hematuria presence: Indwelling urinary catheter type: Encounter type: (4) Urinary retention with incomplete bladder emptying: Current visit: No Status: Acute Chronic urinary retention. Has been seen by urology, Dr. Dalton suspects that the inflammation of her colon is contributing to her retention. He does not suspect colovesical fistula as no coliforms were found on urine culture. He recommends continue indwelling catheter for now. (5) Ambulatory dysfunction: Current visit: No Status: Acute Continue PT/OT. (6) Adrenal insufficiency: Current visit: No Status: Acute On stress dose steroids, began taper 2 days ago (10/14), no increased weakness, able to ambulate in fountain today. Continue at current dose. Will need slow taper. Discuss with Rheumatology prior to discharge for recommendations. (7) PMR (polymyalgia rheumatica): Current visit: No Status: Chronic With chronic steroid use. Begin to taper steroids as above. She will need to follow-up with rheumatology upon discharge. (8) Weakness: Current visit: No Status: Acute Improving. Continue steroids and PT/OT as above. (9) Compression fracture of body of thoracic vertebra: Current visit: No Status: Acute Pain fairly well controlled at present. Continue home regimen for pain control. Heat for comfort. May use brace for comfort. (10) Anemia: Current visit: No Status: Acute Chronic, hgb down to 8.8 today. Continues to have IV fluids running. Remains on home dose of Iron. Continue to monitor. 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 (12) DVT prophylaxis: Current visit: No Status: Acute Subcutaneous heparin. (13) Discharge planning issues: Current visit: No Status: Acute She is a DNR/DNI. PT recommends [facility] facility. This case was discussed with Dr. Rosario who is in agreement. Subjective Interval history since last seen: Riddhi endorses abdominal pain, now on the right side. She continues to have low back discomfort as well. She ambulated in the fountain. She is taking sips and chips PO. She had a loose bowel movement today. She continues to have fecal material leak from her vagina. The hospitalist service is following her in consult. She is a surgical patient, currently doing trial of bowel rest with TPN to attempt to let fistula heal. Surgery to consider transfer to colorectal surgery if bowel rest is unsuc cessful. She has a Johnson catheter in place, draining clear yellow urine- no feces noted in catheter bag. She denies nausea or vomiting. She denies shortness of breath, coughing, wheezing, chest pain/pressure, palpitations. Exam Narrative Exam Narrative: General: Pleasant elderly female, lying in bed, appears uncomfortable, heating pad to right-side of abdomen, in no acute distress. Neck: Supple, no JVD. HEENT: Normocephalic, atraumatic. Pupils equal and round, extraocular movements intact, mucous membranes dry. Heart: Regular rate and rhythm, no murmur appreciated. Lungs: Respirations even and unlabored, lung sounds clear to auscultation bilaterally. GI: abdomen is soft, diffuse tenderness on palpation today- at epigastric region, along right side and acorss lower abdomen midline, mildly distended Extremities: +1 pitting edema to bilateral lower extremities, left greater than right, peripheral pulses palpable bilaterally. Objective Objective Clinical Data: Abnormal lab results 10/16/18 10/16/18 Range/Units 06:57 06:57 RBC 3.29 L (4.00-5.20) m/cumm Hgb 8.8 L (12.0-15.5) g/dL Hct 29.5 L (36.0-46.0) % MCH 26.7 L (27.0-33.0) pg MCHC 29.8 L (32.0-36.0) g/dL RDW 19.0 H (11.7-14.6) % Glucose 129 H (70-100) mg/dL Calcium 7.0 L (8.5-10.1) mg/dL Phosphorus 1.0 L (2.6-4.7) mg/dL Magnesium 1.6 L (1.8-2.4) mg/dL Vital Signs Temperature 36.6 C 10/16/18 10:59 Temperature Source Skin 10/16/18 10:59 Pulse 76 10/16/18 10:59 Pulse Rhythm Regular 10/15/18 23:48 Pulse Strength Normal 10/12/18 09:39 Respiratory Rate 18 10/16/18 10:59 Respiratory Effort Non-Labored 10/15/18 23:48 Respiratory Depth Normal 10/15/18 23:48 Respiratory Pattern Normal 10/15/18 23:48 Blood Pressure 125/70 10/16/18 10:59 Blood Pressure Mean 80 10/12/18 09:39 Pulse Oximetry 96 10/16/18 10:59 Oxygen Delivery Method Room Air 10/16/18 10:59 Oxygen Flow Rate 0 10/16/18 10:59 Pain Level 7 10/16/18 11:13 Comment 10/15/18 10:20 Intake & Output 10/15/18 10/16/18 10/16/18 23:59 11:59 23:59 Intake Total 1305 / 2170 110 / 110 Output Total 1700 / 2800 2550 / 2550 Balance -395 / -630 -2440 / -2440 Intake: IV 1105 / 1920 110 / 110 Oral 200 / 250 Output: Urine 1700 / 2800 2550 / 2550 Other: Urine Color Yellow Yellow Urine Appearance Clear Clear Urine Odor Normal Stool Size Small Small Stool Characteristics Soft Soft Formed Laboratory Results WBC 7.24 k/cumm (4.4-10.8) 10/16/18 06:57 RBC 3.29 m/cumm (4.00-5.20) L 10/16/18 06:57 Hgb 8.8 g/dL (12.0-15.5) L 10/16/18 06:57 Hct 29.5 % (36.0-46.0) L 10/16/18 06:57 MCV 89.7 fL (80-95) 10/16/18 06:57 MCH 26.7 pg (27.0-33.0) L 10/16/18 06:57 MCHC 29.8 g/dL (32.0-36.0) L 10/16/18 06:57 RDW 19.0 % (11.7-14.6) H 10/16/18 06:57 Plt Count 292 x1000/uL (130-400) 10/16/18 06:57 MPV 9.8 fL (8.0-11.0) 10/16/18 06:57 Immature Gran % See Differential 10/15/18 08:05 Neutrophils % 66.0 10/15/18 08:05 Lymphocytes % 17.0 10/15/18 08:05 Atypical Lymphs % 1 10/15/18 08:05 Monocytes % 11.0 10/15/18 08:05 Eosinophils % 2.0 10/15/18 08:05 Basophils % 0.0 10/15/18 08:05 Myelocytes % 3.0 % 10/15/18 08:05 Absolute Neutrophils 3.97 k/cumm (1.2-6.7) 10/15/18 08:05 Absolute Lymphocytes 1.08 k/cumm (1.2-3.4) L 10/15/18 08:05 Absolute Monocytes 0.66 k/cumm (0.11-0.7) 10/15/18 08:05 Absolute Eosinophils 0.12 k/cumm (0.0-0.7) 10/15/18 08:05 Absolute Basophils 0.00 k/cumm (0.0-0.2) 10/15/18 08:05 Differential Comment Manual differential 10/15/18 08:05 RBC Morphology See below 10/15/18 08:05 Polychromasia Present 10/15/18 08:05 Poikilocytosis 2+ 10/15/18 08:05 Anisocytosis 2+ 10/15/18 08:05 Sodium 140 mmol/L (136-145) 10/16/18 06:57 Potassium 3.7 mmol/L (3.5-5.1) D 10/16/18 06:57 Chloride 107 mmol/L (98-107) 10/16/18 06:57 Carbon Dioxide 25.3 mmol/L (21.0-32.0) 10/16/18 06:57 Anion Gap 7.7 mmol/L (3-11) 10/16/18 06:57 BUN 9 mg/dL (7-18) 10/16/18 06:57 Creatinine 0.68 mg/dL (0.55-1.02) 10/16/18 06:57 Estimated GFR/1.73 m2 >= 60.00 (mL/min/1.73m2) 10/16/18 06:57 Glucose 129 mg/dL (70-100) H 10/16/18 06:57 Calcium 7.0 mg/dL (8.5-10.1) L 10/16/18 06:57 Phosphorus 1.0 mg/dL (2.6-4.7) L 10/16/18 06:57 Magnesium 1.6 mg/dL (1.8-2.4) L 10/16/18 06:57 Total Bilirubin 0.4 mg/dL (0.2-1.0) 10/12/18 06:09 AST 16 U/L (15-37) 10/12/18 06:09 ALT 17 U/L (12-78) 10/12/18 06:09 Alkaline Phosphatase 94 U/L (46-116) 10/12/18 06:09 Troponin I < 0.02 ng/mL (0.00-0.06) 10/12/18 06:09 C-Reactive Protein 5.35 mg/dL (0.0-0.3) H 10/14/18 06:45 Total Protein 6.6 g/dL (6.4-8.2) 10/12/18 06:09 Albumin 2.4 g/dL (3.4-5.0) L 10/12/18 06:09 Lipase 38 U/L (73-393) L 10/12/18 06:09 Urine Color Cancelled 10/12/18 06:14 Urine Clarity Cancelled 10/12/18 06:14 Urine pH Cancelled 10/12/18 06:14 Ur Specific [place] Cancelled 10/12/18 06:14 Urine Protein Cancelled 10/12/18 06:14 Urine Ketones Cancelled 10/12/18 06:14 Urine Blood Cancelled 10/12/18 06:14 Urine Nitrite Cancelled 10/12/18 06:14 Urine Bilirubin Cancelled 10/12/18 06:14 Urine Urobilinogen Cancelled 10/12/18 06:14 Ur Leukocyte Esterase Cancelled 10/12/18 06:14 Urine Glucose Cancelled 10/12/18 06:14 Stl C.difficile Tox PCR Cancelled 10/12/18 19:00 C.difficile Tox Source Cancelled 10/12/18 19:00
[2018-10-16 15:30] VITALS: BP 138/73; PULSE 73; RESP 17; TEMP 36.6; O2SAT 95
[2018-10-16] MEDS: Normal Saline 500 ML 30 ML IV (19:22)
[2018-10-16 19:34] VITALS: BP 128/58; PULSE 64; RESP 18; TEMP 36.6; O2SAT 98
[2018-10-16] MEDS: Patch Removal 1 EACH TP (20:00)
[2018-10-16] MEDS: Melatonin 3 MG TAB 6 MG PO (22:38)
[2018-10-16] MEDS: Zolpidem 5 MG TAB PO (22:38)
[2018-10-16 23:05] VITALS: BP 129/61; PULSE 72; RESP 17; TEMP 36.8; O2SAT 95
[2018-10-17] MEDS: metroNIDAZOLE 500 MG/100 ML BAG 100 MG IVPB ×3 (04:26→20:15)
[2018-10-17 04:36] VITALS: BP 132/70; PULSE 80; RESP 18; TEMP 36.6; O2SAT 95
[2018-10-17] MEDS: Levothyroxine 125 MCG TAB PO (06:12)
[2018-10-17] MEDS: ACETAMINOPHEN 1,000 MG/100 ML BTL 400 MG IVPB ×3 (06:22→22:15)
[2018-10-17] MEDS: Normal Saline Flush 10 ML SYR IVP ×4 (06:54→20:16)
[2018-10-17] MEDS: MORPHine 10 MG/ML VIAL 5 MG IVP ×2 (06:55→11:34)
[2018-10-17 06:56] LABS: HCT 30.1 % (36.0-46.0); HGB 9.3 g/dL (12.0-15.5); Mean Corp. HGB Concentration 30.9 g/dL (32.0-36.0); Mean Corpuscular Hemoglobin 27.4 pg (27.0-33.0); Mean Corpuscular Volume 88.8 fL (80-95); Mean Platelet Volume 9.8 fL (8.0-11.0); Platelet Count 303 x1000/uL (130-400); RBC 3.39 m/cumm (4.00-5.20); RBC Distribution Width 19.2 % (11.7-14.6); White Blood Cell Count 7.23 k/cumm (4.4-10.8)
[2018-10-17 07:04] LABS: Anion Gap 6.7 mmol/L (3-11); BUN 12 mg/dL (7-18); CO2 27.3 mmol/L (21.0-32.0); CREATININE 0.58 mg/dL (0.55-1.02); Calcium 7.5 mg/dL (8.5-10.1); Chloride 105 mmol/L (98-107); Glucose 92 mg/dL (70-100); Magnesium 1.8 mg/dL (1.8-2.4); Potassium 3.1 mmol/L (3.5-5.1); Sodium 139 mmol/L (136-145)
[2018-10-17 07:10] VITALS: BP 160/71; PULSE 85; RESP 18; TEMP 37.1; O2SAT 93
[2018-10-17 07:17] LABS: PHOSPHORUS < 2.0 mg/dL (2.6-4.7)
[2018-10-17] MEDS: Lidocaine 5% Patch 1 PATCH TP (07:41)
[2018-10-17] MEDS: Pantoprazole 40 MG VIAL IVP ×2 (07:41→20:16)
[2018-10-17] MEDS: Multivitamin TAB 1 TAB PO (07:42)
[2018-10-17] MEDS: Folic Acid 1 MG TAB PO (07:42)
[2018-10-17] MEDS: buPROPion-XL 150 MG TABCR 450 MG PO (07:42)
[2018-10-17] MEDS: amLODIPine 5 MG TAB PO (07:42)
[2018-10-17] MEDS: Ferrous Gluconate 324 MG TAB PO (07:42)
[2018-10-17] MEDS: Heparin 5,000 UNITS/ML VIAL 5000 UNITS SC ×2 (07:42→15:51)
[2018-10-17] MEDS: Furosemide 20 MG TAB PO (07:42)
[2018-10-17] MEDS: Aspirin E.C. 81 MG TABEC PO (07:42)
--- NOTE | 2018-10-17 07:54 | CMPROGNOTE_ITS ---
- If Service Date Differs Date of service: 10/17/18 Time of Service: 07:53 Care Management Progress Note S/O: Riddhi is sitting up in her bed when this sign writer letterer or painter visits this morning, she is watching TV and is receptive to discussion. Riddhi states that she had an uncomfortable night due to her bowel movements. CM processed with Riddhi her hospitalizations, and discussed her feelings in regards to being hospitalized this year. Riddhi was able to voice her frustration with so many hospit alizations and her want to be home. A:Riddhi is a 78 y/o female admitted with colitis, UTI and failure to thrive. P:Riddhi is receiving IV antibiotics for a urinary tract infection and physical therapy for strengthening, ambulation and balance. She remains acute hospital level of care. PT consult was completed and short term rehab was recommended, followed by in home services including PT but Riddhi wants to return home.CM to continue to provide support to patient, family, care team ongoing discharge planning.
[2018-10-17] MEDS: Nystatin POWDER 60 GM JAR TP ×2 (08:20→20:16)
[2018-10-17] MEDS: Nystatin CREAM 15 GM TUBE TP ×2 (08:20→20:16)
[2018-10-17] MEDS: Magnesium Oxide 400 MG TAB PO (09:05)
[2018-10-17] MEDS: Potassium Chloride 20 MEQ TABCR 40 MEQ PO (09:05)
[2018-10-17] MEDS: CIPROFLOXACIN 400 MG/200 ML BAG 200 MG IVPB ×2 (09:06→22:18)
--- NOTE | 2018-10-17 10:28 | PT.INTREAT ---
Date of service: 10/17/18 Time of Service: 10:28 PT Notes 10/17/18 SUBJECTIVE: Pt stating she is feeling a little better than yesterday. She is just very fatigued and thirsty. OBJECTIVE: Supine in bed. Agreeable to PT treatment. TRANSFERS Supine to sit: S Sit to supine: S Sit to stand: SBA Stand to sit: SBA GAIT Device: 4WW Weight bearing: Full Assist: CGA Distance: 100'x2 ASSESSMENT: Pt appears to be feeling better this morning. She does get fatigue during gait and requires sit rest break. She requires cues for lengthening stride and to avoid shuffling gait pattern. PLAN: Continue current POC progressing towards established goals. Treatment time: 20 minutes [id number] Ana Rosa Fleming, [employer]S IDENTIFIER
--- NOTE | 2018-10-17 10:31 | PTTR_ITS ---
Date of service: 10/17/18 Time of Service: 10:28 PT Notes 10/17/18 SUBJECTIVE: Pt stating she is feeling a little better than yesterday. She is just very fatigued and thirsty. OBJECTIVE: Supine in bed. Agreeable to PT treatment. TRANSFERS Supine to sit: S Sit to supine: S Sit to stand: SBA Stand to sit: SBA GAIT Device: 4WW Weight bearing: Full Assist: CGA Distance: 100'x2 ASSESSMENT: Pt appears to be feeling better this morning. She does get fatigue during gait and requires sit rest break. She requires cues for lengthening stride and to avoid shuffling gait pattern. PLAN: Continue current POC progressing towards established goals. Treatment time: 20 minutes [id number] Ana Rosa Fleming, [employer]
[2018-10-17 11:30] VITALS: BP 143/74; PULSE 79; RESP 20; TEMP 36.7; O2SAT 94
[2018-10-17] MEDS: Hydrocortisone SOD SUC. 100 MG VIAL 50 MG IVP (11:34)
--- NOTE | 2018-10-17 15:02 | PGE_ITS ---
Date of Service Date of service: 10/17/18 Time of Service: 15:01 Assessment and Plan (1) Rectovaginal fistula: Current visit: No Status: Acute P\\ Continue with Bowel rest for now. Hopefully her fistula can heal on its own. If no improvment in a few days then will call and discuss case with colorectal surgeon at [facility] [place] Subjective Interval history since last seen: Amanda is doing OK. Still has bubbles down there. Can't tell wether the stool is coming through the vagina or the rectum. No fevers. Exam GI Inspection: normal to inspection and incision (well healed) Palpation: soft and nontender Objective Objective Clinical Data: Abnormal lab results 10/17/18 10/17/18 10/17/18 Range/Units 06:25 06:25 06:25 RBC 3.39 L (4.00-5.20) m/cumm Hgb 9.3 L (12.0-15.5) g/dL Hct 30.1 L (36.0-46.0) % MCHC 30.9 L (32.0-36.0) g/dL RDW 19.2 H (11.7-14.6) % Potassium 3.1 L (3.5-5.1) mmol/L Calcium 7.5 L (8.5-10.1) mg/dL Phosphorus < 2.0 L (2.6-4.7) mg/dL Vital Signs Temperature 98.1 F 10/17/18 11:30 Temperature Source Tympanic 10/17/18 11:30 Pulse 79 10/17/18 11:30 Pulse Rhythm Regular 10/17/18 09:44 Pulse Strength Normal 10/12/18 09:39 Respiratory Rate 20 10/17/18 11:30 Respiratory Effort Non-Labored 10/17/18 09:44 Respiratory Depth Normal 10/17/18 09:44 Respiratory Pattern Normal 10/16/18 15:40 Blood Pressure 143/74 H 10/17/18 11:30 Blood Pressure Mean 80 10/12/18 09:39 Pulse Oximetry 94 L 10/17/18 11:30 Oxygen Delivery Method Room Air 10/17/18 11:30 Oxygen Flow Rate 0 10/17/18 11:30 Pain Level 3 10/17/18 13:29 Comment 10/17/18 04:36 Intake & Output 10/16/18 10/17/18 10/17/18 23:59 11:59 23:59 Intake Total 1819 / 3260 225 / 2251 Output Total 2350 / 4900 950 / 2950 1999 / 2950 Balance -531 / -1640 1301 / -699 -1999 -69 Weight 171 lb 11.841 oz Intake: IV 1789 / 3230 225 / 2251 Oral Output: Urine 2350 / 4900 950 / 2950 1999 / 2950 Other: Urine Color Yellow Yellow Yellow Urine Appearance Clear Clear Clear Stool Size Smear Moderate Stool Characteristics Liquid Soft Brown Laboratory Results WBC 7.23 k/cumm (4.4-10.8) 10/17/18 06:25 RBC 3.39 m/cumm (4.00-5.20) L 10/17/18 06:25 Hgb 9.3 g/dL (12.0-15.5) L 10/17/18 06:25 Hct 30.1 % (36.0-46.0) L 10/17/18 06:25 MCV 88.8 fL (80-95) 10/17/18 06:25 MCH 27.4 pg (27.0-33.0) 10/17/18 06:25 MCHC 30.9 g/dL (32.0-36.0) L 10/17/18 06:25 RDW 19.2 % (11.7-14.6) H 10/17/18 06:25 Plt Count 303 x1000/uL (130-400) 10/17/18 06:25 MPV 9.8 fL (8.0-11.0) 10/17/18 06:25 Immature Gran % See Differential 10/15/18 08:05 Neutrophils % 66.0 10/15/18 08:05 Lymphocytes % 17.0 10/15/18 08:05 Atypical Lymphs % 1 10/15/18 08:05 Monocytes % 11.0 10/15/18 08:05 Eosinophils % 2.0 10/15/18 08:05 Basophils % 0.0 10/15/18 08:05 Myelocytes % 3.0 % 10/15/18 08:05 Absolute Neutrophils 3.97 k/cumm (1.2-6.7) 10/15/18 08:05 Absolute Lymphocytes 1.08 k/cumm (1.2-3.4) L 10/15/18 08:05 Absolute Monocytes 0.66 k/cumm (0.11-0.7) 10/15/18 08:05 Absolute Eosinophils 0.12 k/cumm (0.0-0.7) 10/15/18 08:05 Absolute Basophils 0.00 k/cumm (0.0-0.2) 10/15/18 08:05 Differential Comment Manual differential 10/15/18 08:05 RBC Morphology See below 10/15/18 08:05 Polychromasia Present 10/15/18 08:05 Poikilocytosis 2+ 10/15/18 08:05 Anisocytosis 2+ 10/15/18 08:05 Sodium 139 mmol/L (136-145) 10/17/18 06:25 Potassium 3.1 mmol/L (3.5-5.1) L 10/17/18 06:25 Chloride 105 mmol/L (98-107) 10/17/18 06:25 Carbon Dioxide 27.3 mmol/L (21.0-32.0) 10/17/18 06:25 Anion Gap 6.7 mmol/L (3-11) 10/17/18 06:25 BUN 12 mg/dL (7-18) 10/17/18 06:25 Creatinine 0.58 mg/dL (0.55-1.02) 10/17/18 06:25 Estimated GFR/1.73 m2 >= 60.00 (mL/min/1.73m2) 10/17/18 06:25 Glucose 92 mg/dL (70-100) 10/17/18 06:25 Calcium 7.5 mg/dL (8.5-10.1) L 10/17/18 06:25 Phosphorus < 2.0 mg/dL (2.6-4.7) L 10/17/18 06:25 Magnesium 1.8 mg/dL (1.8-2.4) 10/17/18 06:25 Total Bilirubin 0.4 mg/dL (0.2-1.0) 10/12/18 06:09 AST 16 U/L (15-37) 10/12/18 06:09 ALT 17 U/L (12-78) 10/12/18 06:09 Alkaline Phosphatase 94 U/L (46-116) 10/12/18 06:09 Troponin I < 0.02 ng/mL (0.00-0.06) 10/12/18 06:09 C-Reactive Protein 5.35 mg/dL (0.0-0.3) H 10/14/18 06:45 Total Protein 6.6 g/dL (6.4-8.2) 10/12/18 06:09 Albumin 2.4 g/dL (3.4-5.0) L 10/12/18 06:09 Lipase 38 U/L (73-393) L 10/12/18 06:09 Urine Color Cancelled 10/12/18 06:14 Urine Clarity Cancelled 10/12/18 06:14 Urine pH Cancelled 10/12/18 06:14 Ur Specific [place] Cancelled 10/12/18 06:14 Urine Protein Cancelled 10/12/18 06:14 Urine Ketones Cancelled 10/12/18 06:14 Urine Blood Cancelled 10/12/18 06:14 Urine Nitrite Cancelled 10/12/18 06:14 Urine Bilirubin Cancelled 10/12/18 06:14 Urine Urobilinogen Cancelled 10/12/18 06:14 Ur Leukocyte Esterase Cancelled 10/12/18 06:14 Urine Glucose Cancelled 10/12/18 06:14 Stl C.difficile Tox PCR Cancelled 10/12/18 19:00 C.difficile Tox Source Cancelled 10/12/18 19:00
[2018-10-17] MEDS: Insulin Aspart 300 UNITS/3 ML PEN SC (15:50)
--- NOTE | 2018-10-17 15:53 | PGE_ITS ---
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 She is on Surgical service with hospitalist consult. Bowel rest with TPN per surgical recommendations. Surgery to consider transfer for colorectal surgery as indicated. (2) Colitis: Current visit: No Status: Acute Afebrile, no leukocytosis. Inflammation noted at site of anastomosis on CT scan. Surgery following. Continue Cipro and Flagyl. Hospitalist service to continue to follow along. (3) UTI (urinary tract infection): Current visit: No Status: Resolved Present on admission. Culture growing greater than 100,000 colonies of gram-positive kareem, mixed. Has Fajardo in place. With fistula there is concern for ongoing infection. Continue empiric Cipro. Qualifiers: Urinary tract infection type: acute cystitis Hematuria presence: Indwelling urinary catheter type: Encounter type: (4) Urinary retention with incomplete bladder emptying: Current visit: No Status: Acute Chronic urinary retention. Has been seen by urology, Dr. Dalton suspects that the inflammation of her colon is contributing to her retention. He does not suspect colovesical fistula as no coliforms were found on urine culture. He recommends continue indwelling catheter for now. (5) Ambulatory dysfunction: Current visit: No Status: Acute Continue PT/OT. (6) Adrenal insufficiency: Current visit: No Status: Acute On stress dose steroids, began taper 3 days ago (10/14), no increased weakness, able to ambulate in fountain today. Continue at current dose. Will need slow taper. Discuss with Rheumatology prior to discharge for recommendations. (7) PMR (polymyalgia rheumatica): Current visit: No Status: Chronic With chronic steroid use. Begin to taper steroids as above. She will need to follow-up with rheumatology upon discharge. (8) Weakness: Current visit: No Status: Acute Improving. Continue steroids and PT/OT as above. (9) Compression fracture of body of thoracic vertebra: Current visit: No Status: Acute Pain fairly well controlled at present. Continue home regimen for pain control. Heat for comfort. May use brace for comfort. (10) Anemia: Current visit: No Status: Acute Chronic, stable. Continues to have IV fluids running. Remains on home dose of Iron. Continue to monitor. 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 (12) DVT prophylaxis: Current visit: No Status: Acute Subcutaneous heparin. (13) Discharge planning issues: Current visit: No Status: Acute She is a DNR/DNI. PT recommends retirement facility at time of discharge. This case was discussed with Dr. Rosario who is in agreement. Subjective Interval history since last seen: Riddhi has bilateral abdominal pain with some epigastric discomfort as well. She reports increased abdominal pain with sips of water, she is sucking on hard candies today. She is trying to stay ahead of her pain. Her back pain is tolerable today. She still reports stool leakage, she believes it is leaking from her vagina. She is a surgical patient, currently on TPN. She denies any other concerns such as She denies shortness of breath, coughing, wheezing, chest pain/pressure, palpitations, anusea or vomiting. Exam Narrative Exam Narrative: General: Pleasant elderly female, lying in bed, appears more comfortable today, heating pad to her abdomen, in no acute distress. Neck: Supple, no JVD. HEENT: Normocephalic, atraumatic. Pupils equal and round, extraocular movements intact, mucous membranes moist, lesion to bottom lip, right-side, no active drainage. Heart: Regular rate and rhythm, no murmur appreciated. Lungs: Respirations even and unlabored, lung sounds clear to auscultation bilaterally. GI: abdomen is soft, diffuse tenderness on palpation today- at epigastric region, along right side and across lower abdomen midline, mildly distended : fajardo draining clear yellow urine, no feces noted. Extremities: +1 pitting edema to bilateral lower extremities, left greater than right, peripheral pulses palpable bilaterally. Objective Objective Clinical Data: Abnormal lab results 10/17/18 10/17/18 10/17/18 Range/Units 06:25 06:25 06:25 RBC 3.39 L (4.00-5.20) m/cumm Hgb 9.3 L (12.0-15.5) g/dL Hct 30.1 L (36.0-46.0) % MCHC 30.9 L (32.0-36.0) g/dL RDW 19.2 H (11.7-14.6) % Potassium 3.1 L (3.5-5.1) mmol/L Calcium 7.5 L (8.5-10.1) mg/dL Phosphorus < 2.0 L (2.6-4.7) mg/dL Vital Signs Temperature 36.7 C 10/17/18 11:30 Temperature Source Tympanic 10/17/18 11:30 Pulse 79 10/17/18 11:30 Pulse Rhythm Regular 10/17/18 09:44 Pulse Strength Normal 10/12/18 09:39 Respiratory Rate 20 10/17/18 11:30 Respiratory Effort Non-Labored 10/17/18 09:44 Respiratory Depth Normal 10/17/18 09:44 Respiratory Pattern Normal 10/16/18 15:40 Blood Pressure 143/74 H 10/17/18 11:30 Blood Pressure Mean 80 10/12/18 09:39 Pulse Oximetry 94 L 10/17/18 11:30 Oxygen Delivery Method Room Air 10/17/18 11:30 Oxygen Flow Rate 0 10/17/18 11:30 Pain Level 3 10/17/18 13:29 Comment 10/17/18 04:36 Intake & Output 10/16/18 10/17/18 10/17/18 23:59 11:59 23:59 Intake Total 1819 / 3260 2251 / 2251 Output Total 2350 / 4900 950 / 2950 2000 / 2950 Balance -531 / -1640 1301 / -699 -1999 / -699 Weight 77.9 kg Intake: IV 1789 / 3230 2251 / 2251 Oral Output: Urine 2350 / 4900 950 / 2950 2000 / 2950 Other: Urine Color Yellow Yellow Yellow Urine Appearance Clear Clear Clear Stool Size Smear Moderate Stool Characteristics Liquid Soft Brown Laboratory Results WBC 7.23 k/cumm (4.4-10.8) 10/17/18 06:25 RBC 3.39 m/cumm (4.00-5.20) L 10/17/18 06:25 Hgb 9.3 g/dL (12.0-15.5) L 10/17/18 06:25 Hct 30.1 % (36.0-46.0) L 10/17/18 06:25 MCV 88.8 fL (80-95) 10/17/18 06:25 MCH 27.4 pg (27.0-33.0) 10/17/18 06:25 MCHC 30.9 g/dL (32.0-36.0) L 10/17/18 06:25 RDW 19.2 % (11.7-14.6) H 10/17/18 06:25 Plt Count 303 x1000/uL (130-400) 10/17/18 06:25 MPV 9.8 fL (8.0-11.0) 10/17/18 06:25 Immature Gran % See Differential 10/15/18 08:05 Neutrophils % 66.0 10/15/18 08:05 Lymphocytes % 17.0 10/15/18 08:05 Atypical Lymphs % 1 10/15/18 08:05 Monocytes % 11.0 10/15/18 08:05 Eosinophils % 2.0 10/15/18 08:05 Basophils % 0.0 10/15/18 08:05 Myelocytes % 3.0 % 10/15/18 08:05 Absolute Neutrophils 3.97 k/cumm (1.2-6.7) 10/15/18 08:05 Absolute Lymphocytes 1.08 k/cumm (1.2-3.4) L 10/15/18 08:05 Absolute Monocytes 0.66 k/cumm (0.11-0.7) 10/15/18 08:05 Absolute Eosinophils 0.12 k/cumm (0.0-0.7) 10/15/18 08:05 Absolute Basophils 0.00 k/cumm (0.0-0.2) 10/15/18 08:05 Differential Comment Manual differential 10/15/18 08:05 RBC Morphology See below 10/15/18 08:05 Polychromasia Present 10/15/18 08:05 Poikilocytosis 2+ 10/15/18 08:05 Anisocytosis 2+ 10/15/18 08:05 Sodium 139 mmol/L (136-145) 10/17/18 06:25 Potassium 3.1 mmol/L (3.5-5.1) L 10/17/18 06:25 Chloride 105 mmol/L (98-107) 10/17/18 06:25 Carbon Dioxide 27.3 mmol/L (21.0-32.0) 10/17/18 06:25 Anion Gap 6.7 mmol/L (3-11) 10/17/18 06:25 BUN 12 mg/dL (7-18) 10/17/18 06:25 Creatinine 0.58 mg/dL (0.55-1.02) 10/17/18 06:25 Estimated GFR/1.73 m2 >= 60.00 (mL/min/1.73m2) 10/17/18 06:25 Glucose 92 mg/dL (70-100) 10/17/18 06:25 Calcium 7.5 mg/dL (8.5-10.1) L 10/17/18 06:25 Phosphorus < 2.0 mg/dL (2.6-4.7) L 10/17/18 06:25 Magnesium 1.8 mg/dL (1.8-2.4) 10/17/18 06:25 Total Bilirubin 0.4 mg/dL (0.2-1.0) 10/12/18 06:09 AST 16 U/L (15-37) 10/12/18 06:09 ALT 17 U/L (12-78) 10/12/18 06:09 Alkaline Phosphatase 94 U/L (46-116) 10/12/18 06:09 Troponin I < 0.02 ng/mL (0.00-0.06) 10/12/18 06:09 C-Reactive Protein 5.35 mg/dL (0.0-0.3) H 10/14/18 06:45 Total Protein 6.6 g/dL (6.4-8.2) 10/12/18 06:09 Albumin 2.4 g/dL (3.4-5.0) L 10/12/18 06:09 Lipase 38 U/L (73-393) L 10/12/18 06:09 Urine Color Cancelled 10/12/18 06:14 Urine Clarity Cancelled 10/12/18 06:14 Urine pH Cancelled 10/12/18 06:14 Ur Specific [place] Cancelled 10/12/18 06:14 Urine Protein Cancelled 10/12/18 06:14 Urine Ketones Cancelled 10/12/18 06:14 Urine Blood Cancelled 10/12/18 06:14 Urine Nitrite Cancelled 10/12/18 06:14 Urine Bilirubin Cancelled 10/12/18 06:14 Urine Urobilinogen Cancelled 10/12/18 06:14 Ur Leukocyte Esterase Cancelled 10/12/18 06:14 Urine Glucose Cancelled 10/12/18 06:14 Stl C.difficile Tox PCR Cancelled 10/12/18 19:00 C.difficile Tox Source Cancelled 10/12/18 19:00
[2018-10-17 16:13] VITALS: BP 133/66; PULSE 76; RESP 17; TEMP 36.6; O2SAT 95
[2018-10-17 19:59] VITALS: BP 140/66; PULSE 72; RESP 18; TEMP 36.3; O2SAT 94
[2018-10-17] MEDS: Patch Removal 1 EACH TP (21:20)
[2018-10-17] MEDS: Melatonin 3 MG TAB 6 MG PO (22:19)
[2018-10-17] MEDS: Zolpidem 5 MG TAB PO (22:19)
[2018-10-18] VITALS (7 sets, daily range): BP systolic 116–157; BP diastolic 64–88; PULSE 69–84; RESP 17–19; TEMP 36–36.5; O2SAT 96–100
[2018-10-18] MEDS: Hydrocortisone SOD SUC. 100 MG VIAL 50 MG IVP ×3 (00:02→21:36)
[2018-10-18] MEDS: Normal Saline Flush 10 ML SYR IVP ×8 (00:03→21:38)
[2018-10-18] MEDS: Heparin 5,000 UNITS/ML VIAL 5000 UNITS SC ×4 (00:03→22:52)
[2018-10-18] MEDS: MORPHine 10 MG/ML VIAL 5 MG IVP (00:15)
[2018-10-18] MEDS: Insulin Aspart 300 UNITS/3 ML PEN SC ×2 (04:25→16:50)
[2018-10-18] MEDS: metroNIDAZOLE 500 MG/100 ML BAG 100 MG IVPB ×3 (04:25→21:58)
[2018-10-18] MEDS: Normal Saline 500 ML 30 ML IV (04:27)
[2018-10-18] MEDS: ACETAMINOPHEN 1,000 MG/100 ML BTL 400 MG IVPB ×3 (06:06→21:37)
[2018-10-18] MEDS: Levothyroxine 125 MCG TAB PO (06:06)
[2018-10-18 07:06] LABS: HCT 31.4 % (36.0-46.0); HGB 9.7 g/dL (12.0-15.5); Mean Corp. HGB Concentration 30.9 g/dL (32.0-36.0); Mean Corpuscular Hemoglobin 27.3 pg (27.0-33.0); Mean Corpuscular Volume 88.5 fL (80-95); Mean Platelet Volume 10.1 fL (8.0-11.0); Platelet Count 320 x1000/uL (130-400); RBC 3.55 m/cumm (4.00-5.20); RBC Distribution Width 19.1 % (11.7-14.6); White Blood Cell Count 6.97 k/cumm (4.4-10.8)
[2018-10-18 07:17] LABS: INR 1.2 (0.9-1.1)
[2018-10-18 07:41] LABS: PHOSPHORUS 2.1 mg/dL (2.6-4.7)
[2018-10-18 07:43] LABS: ALT 13 U/L (12-78); AST 13 U/L (15-37); Albumin 2.2 g/dL (3.4-5.0); Alkaline Phosphatase 68 U/L (46-116); Anion Gap 8.3 mmol/L (3-11); BUN 13 mg/dL (7-18); Bilirubin, Total 0.1 mg/dL (0.2-1.0); CO2 26.7 mmol/L (21.0-32.0); CREATININE 0.56 mg/dL (0.55-1.02); Calcium 7.6 mg/dL (8.5-10.1); Chloride 105 mmol/L (98-107); Glucose 148 mg/dL (70-100); Magnesium 1.8 mg/dL (1.8-2.4); Potassium 3.4 mmol/L (3.5-5.1); Sodium 140 mmol/L (136-145)
[2018-10-18] MEDS: Nystatin POWDER 60 GM JAR TP ×2 (07:45→21:36)
[2018-10-18] MEDS: Nystatin CREAM 15 GM TUBE TP ×2 (07:45→21:36)
[2018-10-18] MEDS: Lidocaine 5% Patch 1 PATCH TP (07:45)
[2018-10-18] MEDS: Pantoprazole 40 MG VIAL IVP ×2 (07:46→21:37)
[2018-10-18] MEDS: buPROPion-XL 150 MG TABCR 450 MG PO (07:46)
[2018-10-18] MEDS: Aspirin E.C. 81 MG TABEC PO (07:47)
[2018-10-18] MEDS: Multivitamin TAB 1 TAB PO (07:47)
[2018-10-18] MEDS: Furosemide 20 MG TAB PO (07:47)
[2018-10-18] MEDS: Ferrous Gluconate 324 MG TAB PO (07:47)
[2018-10-18] MEDS: Folic Acid 1 MG TAB PO (07:47)
[2018-10-18] MEDS: amLODIPine 5 MG TAB PO (07:47)
[2018-10-18] MEDS: CIPROFLOXACIN 400 MG/200 ML BAG 200 MG IVPB ×2 (09:35→22:52)
[2018-10-18] MEDS: Magnesium Oxide 400 MG TAB PO (09:36)
[2018-10-18] MEDS: Potassium Chloride 20 MEQ TABCR 40 MEQ PO (09:36)
--- NOTE | 2018-10-18 10:33 | CMPROGNOTE_ITS ---
- If Service Date Differs Date of service: 10/18/18 Time of Service: 10:33 Care Management Progress Note S/O: Riddhi is resting in bed when this technical document writer visits this morning, she is pleasant and receptive to discussion. Riddhi reports that she is feeling nauseous this morning, and states that the staff research associate is aware of this. She states that she is feeling tired and weak as well, and her provider hasn't been in as of yet this morning. Continue to support Riddhi throughout her stay, no change in DC plan at this time. A:Riddhi is a 78 y/o female admitted with colitis, UTI and failure to thrive. P:Riddhi is receiving IV antibiotics for a urinary tract infection and physical therapy for strengthening, ambulation and balance. She remains acute hospital level of care. PT consult was completed and short term rehab was recommended, followed by in home services including PT but Riddhi wants to return home.CM to continue to provide support to patient, family, care team ongoing discharge planning.
[2018-10-18 11:21] LABS: Prealbumin 7 mg/dL (20-40)
--- NOTE | 2018-10-18 11:58 | W.PM.PROGNOT ---
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 She is on Surgical service with hospitalist consult. Bowel rest with TPN per surgical recommendations. Surgery to consider transfer for colorectal surgery as indicated. She is having Nausea today, zofran ordered. (2) Colitis: Start date: 10/18/18 Start time: 11:59 Current visit: No Status: Acute Afebrile, no leukocytosis. Inflammation at site of anastomosis on CT scan. Surgery following. Continue Cipro and Flagyl. Hospitalist service to continue to follow along. (3) UTI (urinary tract infection): Start date: 10/18/18 Start time: 12:00 Current visit: No Status: Resolved Present on admission. Culture growing greater than 100,000 colonies of gram-positive kareem, mixed. Has Fajardo in place. With fistula there is concern for ongoing infection. Continue empiric Cipro. Afebrile and WBC normal Qualifiers: Encounter type: Hematuria presence: Indwelling urinary catheter type: Urinary tract infection type: acute cystitis (4) Urinary retention with incomplete bladder emptying: Start date: 10/18/18 Start time: 12:00 Current visit: No Status: Acute Chronic urinary retention. Has been seen by urology, Dr. Dalton suspects that the inflammation of her colon is contributing to her retention. He does not suspect colovesical fistula as no coliforms were found on urine culture. He recommends continue indwelling catheter for now. (5) Ambulatory dysfunction: Start date: 10/18/18 Start time: 12:01 Current visit: No Status: Acute Continue PT/OT. (6) Adrenal insufficiency: Start date: 10/18/18 Start time: 12:01 Current visit: No Status: Acute On stress dose steroids, began taper 3 days ago (10/14), feeling weakness today and not well, think this is more related to abdominal problems. Continue at current dose. Will need slow taper. Discuss with Rheumatology prior to discharge for recommendations. (7) PMR (polymyalgia rheumatica): Start date: 10/18/18 Start time: 12:02 Current visit: No Status: Chronic chronic steroid use, will need slow taper with recommendation from rheumatology (8) Compression fracture of body of thoracic vertebra: Start date: 10/18/18 Start time: 12:03 Current visit: No Status: Acute Pain well controlled at present. Continue home regimen for pain control. Heat for comfort. May use brace for comfort. (9) Anemia: Current visit: No Status: Acute Chronic, stable. Continues to have IV fluids running. Remains on home dose of Iron. Continue to monitor. TPN as well Qualifiers: Anemia type: iron deficiency Bone marrow failure anemia type: Chronic kidney disease stage: Folate deficiency anemia type: Hemolytic anemia type: Iron deficiency anemia type: other iron deficiency Other causes of anemia: Vitamin B12 deficiency anemia type: Qualified Code(s): D50.8 - Other iron deficiency anemias (10) Hypokalemia: Start date: 10/18/18 Start time: 12:05 Current visit: No Status: Acute Repleted K, continue to monitor with phosphorus receiving TPN, adjust combo as needed to meet nutritional needs. (11) DVT prophylaxis: Start date: 10/18/18 Start time: 12:03 Current visit: No Status: Acute Subcutaneous heparin. (12) Discharge planning issues: Current visit: No Status: Acute She is a DNR/DNI. PT recommends shelter facility at time of discharge. This case was discussed with Dr. Rosario who is in agreement. Subjective Interval history since last seen: Riddhi is sleeping and snoring when going into room. She is awoken and now complaining she has LLQ abdominal pain with some nausea today. Her pain is feeling better, except the left lower quad but it is not worse. She is sleepy and feeling weak. She states she is belching but nothing is coming up from her nausea. Zofran was ordered. She feels to tired to work with PT/OT this am. She is a surgical patient on TPN. She is still having leakage. She denies, SOB, CP, coughing, wheezing or vomiting. Exam Narrative Exam Narrative: General: Pleasant elderly female, sleeping and snoring in bed. Neck: Supple, no JVD. HEENT: Normocephalic, atraumatic. Pupils equal and round, extraocular movements intact, mucous membranes moist, lesion to bottom lip, right-side, no active drainage. Heart: Regular rate and rhythm, no murmur appreciated. Lungs: Respirations even and unlabored, lung sounds clear to auscultation bilaterally. GI: abdomen is soft, diffuse tenderness on palpation today- in LLQ : fajardo draining clear yellow urine, no feces noted. Extremities: +1 pitting edema to bilateral lower extremities, left greater than right, peripheral pulses palpable bilaterally. Objective Objective Clinical Data: Abnormal lab results 10/18/18 10/18/18 10/18/18 Range/Units 06:25 06:25 06:55 RBC 3.55 L (4.00-5.20) m/cumm Hgb 9.7 L (12.0-15.5) g/dL Hct 31.4 L (36.0-46.0) % MCHC 30.9 L (32.0-36.0) g/dL RDW 19.1 H (11.7-14.6) % PT (9.3-11.0) sec INR (0.9-1.1) Potassium 3.4 L (3.5-5.1) mmol/L Glucose 148 H (70-100) mg/dL Calcium 7.6 L (8.5-10.1) mg/dL Phosphorus 2.1 L (2.6-4.7) mg/dL Total Bilirubin 0.1 L (0.2-1.0) mg/dL AST 13 L (15-37) U/L Total Protein 6.0 L (6.4-8.2) g/dL Albumin 2.2 L (3.4-5.0) g/dL 10/18/18 Range/Units 07:11 RBC (4.00-5.20) m/cumm Hgb (12.0-15.5) g/dL Hct (36.0-46.0) % MCHC (32.0-36.0) g/dL RDW (11.7-14.6) % PT 12.0 H (9.3-11.0) sec INR 1.2 H (0.9-1.1) Potassium (3.5-5.1) mmol/L Glucose (70-100) mg/dL Calcium (8.5-10.1) mg/dL Phosphorus (2.6-4.7) mg/dL Total Bilirubin (0.2-1.0) mg/dL AST (15-37) U/L Total Protein (6.4-8.2) g/dL Albumin (3.4-5.0) g/dL Vital Signs Temperature 36.5 C 10/18/18 07:15 Temperature Source Tympanic 10/18/18 07:15 Pulse 77 10/18/18 07:15 Pulse Rhythm Regular 10/18/18 10:11 Pulse Strength Normal 10/12/18 09:39 Respiratory Rate 18 10/18/18 07:15 Respiratory Effort Non-Labored 10/18/18 10:11 Respiratory Depth Normal 10/18/18 10:11 Respiratory Pattern Normal 10/18/18 10:11 Blood Pressure 153/78 H 10/18/18 07:15 Blood Pressure Mean 80 10/12/18 09:39 Pulse Oximetry 97 10/18/18 07:15 Oxygen Delivery Method Room Air 10/18/18 07:15 Oxygen Flow Rate 0 10/18/18 07:15 Pain Level 3 10/17/18 13:29 Comment 10/17/18 04:36 Intake & Output 10/17/18 10/17/18 10/18/18 11:59 23:59 11:59 Intake Total 2251 / 4321 2070 / 4321 10 Output Total 950 / 4250 3300 / 4250 2400 / 2400 Balance 1301 / 71 -1230 / 71 -2390 / -2390 Weight 77.9 kg 77 kg Intake: IV 2251 / 4321 2070 / 4321 Output: Urine 950 / 4250 3300 / 4250 2400 / 2400 Other: Urine Color Yellow Yellow Yellow Urine Appearance Clear Clear Clear Stool Size Moderate Small Stool Characteristics Soft Soft Brown Laboratory Results WBC 6.97 k/cumm (4.4-10.8) 10/18/18 06:25 RBC 3.55 m/cumm (4.00-5.20) L 10/18/18 06:25 Hgb 9.7 g/dL (12.0-15.5) L 10/18/18 06:25 Hct 31.4 % (36.0-46.0) L 10/18/18 06:25 MCV 88.5 fL (80-95) 10/18/18 06:25 MCH 27.3 pg (27.0-33.0) 10/18/18 06:25 MCHC 30.9 g/dL (32.0-36.0) L 10/18/18 06:25 RDW 19.1 % (11.7-14.6) H 10/18/18 06:25 Plt Count 320 x1000/uL (130-400) 10/18/18 06:25 MPV 10.1 fL (8.0-11.0) 10/18/18 06:25 Immature Gran % See Differential 10/15/18 08:05 Neutrophils % 66.0 10/15/18 08:05 Lymphocytes % 17.0 10/15/18 08:05 Atypical Lymphs % 1 10/15/18 08:05 Monocytes % 11.0 10/15/18 08:05 Eosinophils % 2.0 10/15/18 08:05 Basophils % 0.0 10/15/18 08:05 Myelocytes % 3.0 % 10/15/18 08:05 Absolute Neutrophils 3.97 k/cumm (1.2-6.7) 10/15/18 08:05 Absolute Lymphocytes 1.08 k/cumm (1.2-3.4) L 10/15/18 08:05 Absolute Monocytes 0.66 k/cumm (0.11-0.7) 10/15/18 08:05 Absolute Eosinophils 0.12 k/cumm (0.0-0.7) 10/15/18 08:05 Absolute Basophils 0.00 k/cumm (0.0-0.2) 10/15/18 08:05 Differential Comment Manual differential 10/15/18 08:05 RBC Morphology See below 10/15/18 08:05 Polychromasia Present 10/15/18 08:05 Poikilocytosis 2+ 10/15/18 08:05 Anisocytosis 2+ 10/15/18 08:05 PT 12.0 sec (9.3-11.0) H 10/18/18 07:11 INR 1.2 (0.9-1.1) H 10/18/18 07:11 Sodium 140 mmol/L (136-145) 10/18/18 06:25 Potassium 3.4 mmol/L (3.5-5.1) L 10/18/18 06:25 Chloride 105 mmol/L (98-107) 10/18/18 06:25 Carbon Dioxide 26.7 mmol/L (21.0-32.0) 10/18/18 06:25 Anion Gap 8.3 mmol/L (3-11) 10/18/18 06:25 BUN 13 mg/dL (7-18) 10/18/18 06:25 Creatinine 0.56 mg/dL (0.55-1.02) 10/18/18 06:25 Estimated GFR/1.73 m2 >= 60.00 (mL/min/1.73m2) 10/18/18 06:25 Glucose 148 mg/dL (70-100) H 10/18/18 06:25 Calcium 7.6 mg/dL (8.5-10.1) L 10/18/18 06:25 Phosphorus 2.1 mg/dL (2.6-4.7) L 10/18/18 06:55 Magnesium 1.8 mg/dL (1.8-2.4) 10/18/18 06:25 Total Bilirubin 0.1 mg/dL (0.2-1.0) L 10/18/18 06:25 AST 13 U/L (15-37) L 10/18/18 06:25 ALT 13 U/L (12-78) 10/18/18 06:25 Alkaline Phosphatase 68 U/L (46-116) 10/18/18 06:25 Troponin I < 0.02 ng/mL (0.00-0.06) 10/12/18 06:09 C-Reactive Protein 5.35 mg/dL (0.0-0.3) H 10/14/18 06:45 Total Protein 6.0 g/dL (6.4-8.2) L 10/18/18 06:25 Albumin 2.2 g/dL (3.4-5.0) L 10/18/18 06:25 Lipase 38 U/L (73-393) L 10/12/18 06:09 Urine Color Cancelled 10/12/18 06:14 Urine Clarity Cancelled 10/12/18 06:14 Urine pH Cancelled 10/12/18 06:14 Ur Specific [place] Cancelled 10/12/18 06:14 Urine Protein Cancelled 10/12/18 06:14 Urine Ketones Cancelled 10/12/18 06:14 Urine Blood Cancelled 10/12/18 06:14 Urine Nitrite Cancelled 10/12/18 06:14 Urine Bilirubin Cancelled 10/12/18 06:14 Urine Urobilinogen Cancelled 10/12/18 06:14 Ur Leukocyte Esterase Cancelled 10/12/18 06:14 Urine Glucose Cancelled 10/12/18 06:14 Stl C.difficile Tox PCR Cancelled 10/12/18 19:00 C.difficile Tox Source Cancelled 10/12/18 19:00
[2018-10-18] MEDS: Ondansetron 4 MG/2 ML VIAL IVP ×2 (12:30→18:15)
--- NOTE | 2018-10-18 13:43 | W.PM.PROGNOT ---
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 No more air per patient P\\\ Continue with bowel rest and TPN Will discuss case with Colorectal surgery at [facility] tomorrow and get their opinion (2) Urinary retention with incomplete bladder emptying: Current visit: No Status: Acute Has fajardo in place. Continue with fajardo until the inflammation in her colon is resolved (3) Adrenal insufficiency: Current visit: No Status: Acute A\\ Steroid dependent Appreciate Medicine assisting with her medications (4) Colitis: Current visit: No Status: Acute Continue antibiotics. Leukocytosis has resolved (5) Hypophosphatemia: Current visit: Yes Status: Acute Correct with the TPN Appreciate pharmacist assisting with TPN (6) Hypokalemia: Current visit: Yes Status: Acute Replace with IV bolus Subjective Interval history since last seen: Riddhi had some nausea this morning. Had one dose of zofran and has been fine since. No emesis. She has not had any more bubbles through her vagina. Discussed with her nurse and he tells me that most of the stool is through the rectum. There is still a little through the vagina as far as he can tell. No other complaints at this time. Exam Resp Effort & Inspection: normal respiratory effort Auscultation: clear to auscultation bilaterally Cardio Rate: regular rate Rhythm: regular rhythm GI Inspection: other (bruising note over the abdominal wall from the lovenox injections) Palpation: soft, no hepatosplenomegaly and tender in the LLQ (over the bruises, no guarding or rebound) Auscultation: normal bowel sounds Objective Objective Clinical Data: Abnormal lab results 10/18/18 10/18/18 10/18/18 Range/Units 06:25 06:25 06:55 RBC 3.55 L (4.00-5.20) m/cumm Hgb 9.7 L (12.0-15.5) g/dL Hct 31.4 L (36.0-46.0) % MCHC 30.9 L (32.0-36.0) g/dL RDW 19.1 H (11.7-14.6) % PT (9.3-11.0) sec INR (0.9-1.1) Potassium 3.4 L (3.5-5.1) mmol/L Glucose 148 H (70-100) mg/dL Calcium 7.6 L (8.5-10.1) mg/dL Phosphorus 2.1 L (2.6-4.7) mg/dL Total Bilirubin 0.1 L (0.2-1.0) mg/dL AST 13 L (15-37) U/L Total Protein 6.0 L (6.4-8.2) g/dL Albumin 2.2 L (3.4-5.0) g/dL 10/18/18 Range/Units 07:11 RBC (4.00-5.20) m/cumm Hgb (12.0-15.5) g/dL Hct (36.0-46.0) % MCHC (32.0-36.0) g/dL RDW (11.7-14.6) % PT 12.0 H (9.3-11.0) sec INR 1.2 H (0.9-1.1) Potassium (3.5-5.1) mmol/L Glucose (70-100) mg/dL Calcium (8.5-10.1) mg/dL Phosphorus (2.6-4.7) mg/dL Total Bilirubin (0.2-1.0) mg/dL AST (15-37) U/L Total Protein (6.4-8.2) g/dL Albumin (3.4-5.0) g/dL Vital Signs Temperature 97.7 F 10/18/18 07:15 Temperature Source Tympanic 10/18/18 07:15 Pulse 77 10/18/18 07:15 Pulse Rhythm Regular 10/18/18 10:11 Pulse Strength Normal 10/12/18 09:39 Respiratory Rate 18 10/18/18 07:15 Respiratory Effort Non-Labored 10/18/18 10:11 Respiratory Depth Normal 10/18/18 10:11 Respiratory Pattern Normal 10/18/18 10:11 Blood Pressure 153/78 H 10/18/18 07:15 Blood Pressure Mean 80 10/12/18 09:39 Pulse Oximetry 97 10/18/18 07:15 Oxygen Delivery Method Room Air 10/18/18 07:15 Oxygen Flow Rate 0 10/18/18 07:15 Pain Level 3 10/17/18 13:29 Comment 10/17/18 04:36 Intake & Output 10/17/18 10/18/18 10/18/18 23:59 11:59 23:59 Intake Total 2069 / 4320 110 / 110 Output Total 3300 / 4250 2400 / 3400 1000 / 3400 Balance -1230 / 71 -2290 / -3290 -1000 / -3290 Weight 169 lb 12.095 oz Intake: IV 2069 110 / 110 Output: Urine 3300 / 4250 2400 / 3400 1000 / 3400 Other: Urine Color Yellow Yellow Yellow Urine Appearance Clear Clear Clear Stool Size Small Stool Characteristics Soft Laboratory Results WBC 6.97 k/cumm (4.4-10.8) 10/18/18 06:25 RBC 3.55 m/cumm (4.00-5.20) L 10/18/18 06:25 Hgb 9.7 g/dL (12.0-15.5) L 10/18/18 06:25 Hct 31.4 % (36.0-46.0) L 10/18/18 06:25 MCV 88.5 fL (80-95) 10/18/18 06:25 MCH 27.3 pg (27.0-33.0) 10/18/18 06:25 MCHC 30.9 g/dL (32.0-36.0) L 10/18/18 06:25 RDW 19.1 % (11.7-14.6) H 10/18/18 06:25 Plt Count 320 x1000/uL (130-400) 10/18/18 06:25 MPV 10.1 fL (8.0-11.0) 10/18/18 06:25 Immature Gran % See Differential 10/15/18 08:05 Neutrophils % 66.0 10/15/18 08:05 Lymphocytes % 17.0 10/15/18 08:05 Atypical Lymphs % 1 10/15/18 08:05 Monocytes % 11.0 10/15/18 08:05 Eosinophils % 2.0 10/15/18 08:05 Basophils % 0.0 10/15/18 08:05 Myelocytes % 3.0 % 10/15/18 08:05 Absolute Neutrophils 3.97 k/cumm (1.2-6.7) 10/15/18 08:05 Absolute Lymphocytes 1.08 k/cumm (1.2-3.4) L 10/15/18 08:05 Absolute Monocytes 0.66 k/cumm (0.11-0.7) 10/15/18 08:05 Absolute Eosinophils 0.12 k/cumm (0.0-0.7) 10/15/18 08:05 Absolute Basophils 0.00 k/cumm (0.0-0.2) 10/15/18 08:05 Differential Comment Manual differential 10/15/18 08:05 RBC Morphology See below 10/15/18 08:05 Polychromasia Present 10/15/18 08:05 Poikilocytosis 2+ 10/15/18 08:05 Anisocytosis 2+ 10/15/18 08:05 PT 12.0 sec (9.3-11.0) H 10/18/18 07:11 INR 1.2 (0.9-1.1) H 10/18/18 07:11 Sodium 140 mmol/L (136-145) 10/18/18 06:25 Potassium 3.4 mmol/L (3.5-5.1) L 10/18/18 06:25 Chloride 105 mmol/L (98-107) 10/18/18 06:25 Carbon Dioxide 26.7 mmol/L (21.0-32.0) 10/18/18 06:25 Anion Gap 8.3 mmol/L (3-11) 10/18/18 06:25 BUN 13 mg/dL (7-18) 10/18/18 06:25 Creatinine 0.56 mg/dL (0.55-1.02) 10/18/18 06:25 Estimated GFR/1.73 m2 >= 60.00 (mL/min/1.73m2) 10/18/18 06:25 Glucose 148 mg/dL (70-100) H 10/18/18 06:25 Calcium 7.6 mg/dL (8.5-10.1) L 10/18/18 06:25 Phosphorus 2.1 mg/dL (2.6-4.7) L 10/18/18 06:55 Magnesium 1.8 mg/dL (1.8-2.4) 10/18/18 06:25 Total Bilirubin 0.1 mg/dL (0.2-1.0) L 10/18/18 06:25 AST 13 U/L (15-37) L 10/18/18 06:25 ALT 13 U/L (12-78) 10/18/18 06:25 Alkaline Phosphatase 68 U/L (46-116) 10/18/18 06:25 Troponin I < 0.02 ng/mL (0.00-0.06) 10/12/18 06:09 C-Reactive Protein 5.35 mg/dL (0.0-0.3) H 10/14/18 06:45 Total Protein 6.0 g/dL (6.4-8.2) L 10/18/18 06:25 Albumin 2.2 g/dL (3.4-5.0) L 10/18/18 06:25 Lipase 38 U/L (73-393) L 10/12/18 06:09 Urine Color Cancelled 10/12/18 06:14 Urine Clarity Cancelled 10/12/18 06:14 Urine pH Cancelled 10/12/18 06:14 Ur Specific [place] Cancelled 10/12/18 06:14 Urine Protein Cancelled 10/12/18 06:14 Urine Ketones Cancelled 10/12/18 06:14 Urine Blood Cancelled 10/12/18 06:14 Urine Nitrite Cancelled 10/12/18 06:14 Urine Bilirubin Cancelled 10/12/18 06:14 Urine Urobilinogen Cancelled 10/12/18 06:14 Ur Leukocyte Esterase Cancelled 10/12/18 06:14 Urine Glucose Cancelled 10/12/18 06:14 Stl C.difficile Tox PCR Cancelled 10/12/18 19:00 C.difficile Tox Source Cancelled 10/12/18 19:00
--- NOTE | 2018-10-18 14:06 | PT.INNT ---
Date of service: 10/18/18 Time of Service: 10:00 PT Notes 10/18/18 Patient refused morning PT session stating I feel sick to my stomach. We will attempt to resume PT services this afternoon.
--- NOTE | 2018-10-18 14:07 | PT.INTREAT ---
Date of service: 10/18/18 Time of Service: 14:07 PT Notes Inpatient Physical Therapy Treatment Note [facility] Date: 10/18/18 PRECAUTIONS: Fall SUBJECTIVE: Pat states that she is feeling a little better this afternoon. She is agreeable to participating in PT. OBJECTIVE: PAIN: No complaints of pain. BED MOBILITY/TRANSFERS Supine-sit: S Sit-stand: SBA Stand-sit: SBA GAIT Assistive Device: 4 WW Weight bearing: Full Assist: CGA Distance: 200' THEREX: Patient performed a seated upper extremity and lower extremity strengthening program, as per flow sheet. Patient demonstrates SOB with upper extremity exercises. ASSESSMENT: Patient tolerated session well without complaint. Patient was able to tolerate a progression in gait distance with 4 WW support and CGA. Patient demonstrates SOB with upper extremity exercises while performing ther ex program. Patient would benefit from continued gait and transfer training as well as general conditioning for improved activity tolerance. PLAN: Continue with PTs POC TREATMENT CODE/TIME: 30 minutes; 91964, 22247
[2018-10-18] MEDS: Patch Removal 1 EACH TP (21:37)
[2018-10-18] MEDS: Melatonin 3 MG TAB 6 MG PO (22:52)
[2018-10-18] MEDS: Zolpidem 5 MG TAB PO (22:52)
[2018-10-19 03:21] VITALS: BP 133/74; PULSE 68; RESP 20; TEMP 35.9; O2SAT 97
[2018-10-19] MEDS: metroNIDAZOLE 500 MG/100 ML BAG 100 MG IVPB ×3 (04:03→19:29)
[2018-10-19] MEDS: Hydrocortisone SOD SUC. 100 MG VIAL 50 MG IVP ×3 (04:03→19:28)
[2018-10-19] MEDS: ACETAMINOPHEN 1,000 MG/100 ML BTL 400 MG IVPB ×3 (05:39→20:47)
[2018-10-19] MEDS: Levothyroxine 125 MCG TAB PO (05:39)
[2018-10-19 05:40] LABS: HCT 29.8 % (36.0-46.0); HGB 9.3 g/dL (12.0-15.5); Mean Corp. HGB Concentration 31.2 g/dL (32.0-36.0); Mean Corpuscular Hemoglobin 27.4 pg (27.0-33.0); Mean Corpuscular Volume 87.9 fL (80-95); Mean Platelet Volume 9.5 fL (8.0-11.0); Platelet Count 300 x1000/uL (130-400); RBC 3.39 m/cumm (4.00-5.20); RBC Distribution Width 19.3 % (11.7-14.6); White Blood Cell Count 7.44 k/cumm (4.4-10.8)
[2018-10-19 05:52] LABS: Anion Gap 6.2 mmol/L (3-11); BUN 13 mg/dL (7-18); CO2 27.8 mmol/L (21.0-32.0); CREATININE 0.55 mg/dL (0.55-1.02); Calcium 7.4 mg/dL (8.5-10.1); Chloride 105 mmol/L (98-107); Glucose 145 mg/dL (70-100); Magnesium 1.8 mg/dL (1.8-2.4); PHOSPHORUS 2.2 mg/dL (2.6-4.7); Potassium 3.7 mmol/L (3.5-5.1); Sodium 139 mmol/L (136-145)
[2018-10-19] MEDS: Normal Saline Flush 10 ML SYR IVP ×5 (06:36→19:29)
[2018-10-19] MEDS: Ondansetron 4 MG/2 ML VIAL IVP (06:36)
[2018-10-19 08:00] VITALS: BP 147/78; PULSE 76; RESP 16; TEMP 36.6; O2SAT 95
[2018-10-19] MEDS: MORPHine 10 MG/ML VIAL 5 MG IVP (08:08)
--- NOTE | 2018-10-19 08:41 | PDOC.CMPRO ---
- If Service Date Differs Date of service: 10/19/18 Time of Service: 08:41 Care Management Progress Note S/O:Pat is ambulating in the halls with PT. She remains on IV antibiotics and TPN. She may need transfer to tertiary care center pending contact by surgeon to tertiary center. 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 P:Pat remains on IV antibiotics and TPN. She continues to receive PT. Anticipate possible transfer to tertiary center pending surgeon determination and bed availability.
[2018-10-19] MEDS: Pantoprazole 40 MG VIAL IVP ×2 (09:10→19:29)
[2018-10-19] MEDS: Heparin 5,000 UNITS/ML VIAL 5000 UNITS SC ×3 (09:11→23:00)
[2018-10-19] MEDS: Lidocaine 5% Patch 1 PATCH TP (09:12)
[2018-10-19] MEDS: Nystatin POWDER 60 GM JAR TP ×2 (09:13→19:29)
[2018-10-19] MEDS: Nystatin CREAM 15 GM TUBE TP ×2 (09:14→19:30)
[2018-10-19] MEDS: amLODIPine 5 MG TAB PO (09:15)
[2018-10-19] MEDS: Folic Acid 1 MG TAB PO (09:15)
[2018-10-19] MEDS: buPROPion-XL 150 MG TABCR 450 MG PO (09:15)
[2018-10-19] MEDS: Furosemide 20 MG TAB PO (09:16)
[2018-10-19] MEDS: Multivitamin TAB 1 TAB PO (09:16)
[2018-10-19] MEDS: Aspirin E.C. 81 MG TABEC PO (09:16)
[2018-10-19] MEDS: Ferrous Gluconate 324 MG TAB PO (09:17)
[2018-10-19] MEDS: CIPROFLOXACIN 400 MG/200 ML BAG 200 MG IVPB ×2 (10:20→20:47)
[2018-10-19] MEDS: POTASSIUM CHLORIDE 20 MEQ, POTASSIUM CHLORIDE 10 MEQ 30 MEQ PO (10:22)
[2018-10-19] MEDS: Magnesium Oxide 400 MG TAB PO (10:23)
[2018-10-19 11:06] VITALS: BP 148/68; PULSE 63; RESP 16; TEMP 36.1; O2SAT 95
[2018-10-19] MEDS: Insulin Aspart 300 UNITS/3 ML PEN SC ×2 (11:21→16:06)
--- NOTE | 2018-10-19 12:48 | PT.INPN ---
Date of service: 10/19/18 Time of Service: 11:32 PT Notes Inpatient Physical Therapy Progress Note Date: 10/19/2018 Dates of Service: 10/12/2018-10/19/2018 PRECAUTIONS: Fall. Standard. SUBJECTIVE: Patient states that she slept well and that the Morphine she got just about half an hour ago has hugely helped with her abdominal pain. She is agreeable to a treatment session and goal review today for progress note completion. OBJECTIVE: Patient sen resting in bed. IV line in R UE. Johnson catheter continues to be on. PAIN: 0/10 in abdominal area BED MOBILITY/TRANSFERS Rolling L/R: S Supine-sit: S Sit-supine: S Sit-stand: S Stand-sit: S Bed-Chair: SBA Chair-bed: SBA GAIT Assistive Device: 4 WW Weight bearing: FWB Assist: SBA Distance: 200 feet Deviation: Slowed alisha, no shuffling observed throughout. Step height continues to be decreased. THEREX: Patient tolerated standing level exercises per exercise flow sheet with no report of increased abdominal pain, dizziness, and discomfort. Patient was also able to tolerate standing beside the sink to brush her teeth and was able to tolerate said position for about 5 minutes without holding onto anything. Assessment: Patient is a 78 year old female referred to physical therapy services with the diagnosis of acute colitis, urinary tract infection, failure to thrive, and chronic low back pain. Patient has demonstrated meaningful functional mobility gains as well as strength and balance gains as a result of skilled PT services. Patient continues to present with clinical signs and symptoms consistent with current/admitting diagnoses that has resulted to mobility limitations, gait instability, generalized weakness, and lack of motor control as demonstrated by the following impairment level findings: 1. Decreased strength to B LE major muscle groups 2. Impaired balance 3. Impaired activity tolerance 4. Limitation of joint range of motion in trunk Impairments are contributing to the following functional limitations: 1. Dependent bed mobility skills 2. Increased dependence with transfers 3. Inability to safely ambulate without assistive device and physical assistance 4. Increase completion time for mobility ADL performance 5. Increased fall risk 6. Inability to negotiate steps alone safely Patient is assessed as a Moderate complexity initial evaluation 20265 based on the following: History: Patient is a 78-year-old female with diagnosis of acute colitis, urinary tract infection, and failure to thrive with co-morbidities and past medical history as noted above Examination: Underlying impairments and functional limitations as noted above Presentation: Evolving Decision Making: Moderate complexity 48269 Goals X1 week 1. Supine-Sit independent 2. Sit-Supine independent 3. Sit-Stand independent 4. Stand-Sit independent 5. Bed-Chair independent 6. Chair-Bed independent 7. Gait on level surface ambulation using 4WW with use of least restrictive device for at least 300 feet without report of pain nor dyspnea 8. Stairs independent while holding onto bilateral rails for at least 5 steps without report of pain nor dyspnea 9. Independent with home exercise program 10. Balance good for static and dynamic standing Plan of Care/Treatment Plan: 1-2x/day, 7 days/week x 1 week. Plan of care has been reviewed with the DITTO MACHINE OPERATOR providing the service under Physical Therapy direction. Continue with physical Therapy intervention for strengthening, bed mobility, transfers, gait, stairs, balance training, and use of assistive device. DISCHARGE RECOMMENDATIONS: Patient will highly benefit from care home facility placement to regain safest functional mobility level with subsequent referral to home health PT services in order to assess for home safety, continue with /caregiver education and training with mobility task assistance, assess for additional safety equipment at home. TREATMENT CODE/TIME: 39735 17 minutes, and 7110 15 minutes beginning at 11:32 AM. Thank you for this referral. Marley Patel, PT, DPT, CLT [facility]
--- NOTE | 2018-10-19 12:58 | INPN_ITS ---
Date of service: 10/19/18 Time of Service: 11:32 PT Notes Inpatient Physical Therapy Progress Note Date: 10/19/2018 Dates of Service: 10/12/2018-10/19/2018 PRECAUTIONS: Fall. Standard. SUBJECTIVE: Patient states that she slept well and that the Morphine she got just about half an hour ago has hugely helped with her abdominal pain. She is agreeable to a treatment session and goal review today for progress note completion. OBJECTIVE: Patient sen resting in bed. IV line in R UE. Johnson catheter continues to be on. PAIN: 0/10 in abdominal area BED MOBILITY/TRANSFERS Rolling L/R: S Supine-sit: S Sit-supine: S Sit-stand: S Stand-sit: S Bed-Chair: SBA Chair-bed: SBA GAIT Assistive Device: 4 WW Weight bearing: FWB Assist: SBA Distance: 200 feet Deviation: Slowed alisha, no shuffling observed throughout. Step height continues to be decreased. THEREX: Patient tolerated standing level exercises per exercise flow sheet with no report of increased abdominal pain, dizziness, and discomfort. Patient was also able to tolerate standing beside the sink to brush her teeth and was able to tolerate said position for about 5 minutes without holding onto anything. Assessment: Patient is a 78 year old female referred to physical therapy services with the diagnosis of acute colitis, urinary tract infection, failure to thrive, and chronic low back pain. Patient has demonstrated meaningful functional mobility gains as well as strength and balance gains as a result of skilled PT services. Patient continues to present with clinical signs and symptoms consistent with current/admitting diagnoses that has resulted to mobility limitations, gait instability, generalized weakness, and lack of motor control as demonstrated by the following impairment level findings: 1. Decreased strength to B LE major muscle groups 2. Impaired balance 3. Impaired activity tolerance 4. Limitation of joint range of motion in trunk Impairments are contributing to the following functional limitations: 1. Dependent bed mobility skills 2. Increased dependence with transfers 3. Inability to safely ambulate without assistive device and physical assistance 4. Increase completion time for mobility ADL performance 5. Increased fall risk 6. Inability to negotiate steps alone safely Patient is assessed as a Moderate complexity initial evaluation 31383 based on the following: History: Patient is a 78-year-old female with diagnosis of acute colitis, urinary tract infection, and failure to thrive with co-morbidities and past medical history as noted above Examination: Underlying impairments and functional limitations as noted above Presentation: Evolving Decision Making: Moderate complexity 92289 Goals X1 week 1. Supine-Sit independent 2. Sit-Supine independent 3. Sit-Stand independent 4. Stand-Sit independent 5. Bed-Chair independent 6. Chair-Bed independent 7. Gait on level surface ambulation using 4WW with use of least restrictive device for at least 300 feet without report of pain nor dyspnea 8. Stairs independent while holding onto bilateral rails for at least 5 steps without report of pain nor dyspnea 9. Independent with home exercise program 10. Balance good for static and dynamic standing Plan of Care/Treatment Plan: 1-2x/day, 7 days/week x 1 week. Plan of care has been reviewed with the VARIOUS EXCEPTIONALITIES TEACHER providing the service under Physical Therapy direction. Continue with physical Therapy intervention for strengthening, bed mobility, transfers, gait, stairs, balance training, and use of assistive device. DISCHARGE RECOMMENDATIONS: Patient will highly benefit from shelter facility placement to regain safest functional mobility level with subsequent referral to home health PT services in order to assess for home safety, continue with /caregiver education and training with mobility task assistance, assess for additional safety equipment at home. TREATMENT CODE/TIME: 73872 17 minutes, and 7110 15 minutes beginning at 11:32 AM. Thank you for this referral. Marley Patel, PT, DPT, CLT [facility]
--- NOTE | 2018-10-19 14:21 | CHAPLAIN ---
Riddhi said she is discouraged. She is waiting to hear back from the surgeon who is consulting with [facility] to see if Riddhi should have surgery, according to Riddhi. She said she had a routine colonoscopy in June and nothing has been right since. She is scared, she told me, and last week when she requested to have a [facility] visit, she said she asked him for anointing of the sick because she was so discouraged. She said this has also been tough on her . Riddhi showed me photos of her trip to [place] with her granddaughter a few years ago and also picture of her cats. She is hopeful that she will know what the plan is soon.
[2018-10-19 15:25] VITALS: BP 135/79; PULSE 77; RESP 18; TEMP 36.3; O2SAT 94
--- NOTE | 2018-10-19 15:51 | PT.INTREAT ---
Date of service: 10/19/18 Time of Service: 15:51 PT Notes Inpatient Physical Therapy Treatment Note [facility] Date: 10/19/18 PRECAUTIONS: Fall SUBJECTIVE: Pat states she is feeling much stronger today. OBJECTIVE: PAIN: No c/o pain BED MOBILITY/TRANSFERS Supine-sit: S Sit-stand: S Stand-sit: S GAIT Assistive Device: 4WW Weight bearing: Full Assist: S Distance: 250' THEREX: Patient completed several LE strengthening exercises while seated at EOB, as per flow sheet. ASSESSMENT: Patient tolerated session well, without complaint. Patient was able to tolerate a progression in gait distance with 4 WW support and supervision, with no shuffling noted. Patient would benefit from continued strengthening for improved activity tolerance. PLAN: Continue with PTs POC TREATMENT CODE/TIME: 30 minutes; 88515, 37538
--- NOTE | 2018-10-19 16:20 | PGE_ITS ---
Date of Service Date of service: 10/19/18 Time of Service: 16:15 Assessment and Plan (1) Rectovaginal fistula: Current visit: No Status: Acute A\\ Rectovaginal fistula with stool only from vagina at this point ? stricture P\\ Discuss case with Colorectal surgery as soon as possible. Unfortunately may need further surgery including a ostomy. This was discussed with Amanda and her Jason. I will let them know as soon as I have spoken to a colorectal surgeon at [facility]. Subjective Interval history since last seen: Feeling OK. Anxious to hear what the colorectal surgeons say at [facility]. I explained that I have left messages but have not yet heard from anyone. I will let her know as soon as I have spoken to someone. Exam Resp Effort & Inspection: normal respiratory effort Auscultation: clear to auscultation bilaterally Cardio Rate: regular rate Rhythm: regular rhythm GI Inspection: normal to inspection and scar (well healed midline) Palpation: soft and nontender Rectal Exam - female: visual inspection normal, normal sphincter tone and other (Minimal stool in the rectal vault.) Other: Vaginal exam- soft formed stool coming from the vagina. Objective Objective Clinical Data: Abnormal lab results 10/19/18 10/19/18 Range/Units 05:30 05:30 RBC 3.39 L (4.00-5.20) m/cumm Hgb 9.3 L (12.0-15.5) g/dL Hct 29.8 L (36.0-46.0) % MCHC 31.2 L (32.0-36.0) g/dL RDW 19.3 H (11.7-14.6) % Glucose 145 H (70-100) mg/dL Calcium 7.4 L (8.5-10.1) mg/dL Phosphorus 2.2 L (2.6-4.7) mg/dL Vital Signs Temperature 97.0 F L 10/19/18 11:06 Temperature Source Tympanic 10/19/18 11:06 Pulse 63 10/19/18 11:06 Pulse Rhythm Regular 10/19/18 11:09 Pulse Strength Normal 10/12/18 09:39 Respiratory Rate 16 10/19/18 11:06 Respiratory Effort 10/19/18 11:09 Respiratory Depth Normal 10/19/18 11:09 Respiratory Pattern Normal 10/19/18 11:09 Blood Pressure 148/68 H 10/19/18 11:06 Blood Pressure Mean 80 10/12/18 09:39 Pulse Oximetry 95 10/19/18 11:06 Oxygen Delivery Method Room Air 10/19/18 11:06 Oxygen Flow Rate 0 10/19/18 11:06 Pain Level 2 10/19/18 11:06 Comment 10/17/18 04:36 Intake & Output 10/18/18 10/19/18 10/19/18 23:59 11:59 23:59 Intake Total 2361 / 3807 1496 / 1496 Output Total 2700 / 5100 2650 / 4450 1800 / 4450 Balance -339 / -1293 -1154 / -2954 -1800 / -2954 Weight 167 lb 15.876 oz Intake: IV 2361 / 3807 1466 / 1466 Oral Output: Urine 2700 / 5100 2650 / 4450 1800 / 4450 Other: Urine Color Straw Yellow Yellow Urine Appearance Clear Clear Clear Urine Odor Normal Stool Size Small Moderate Small Stool Characteristics Soft Soft Soft Brown Formed Brown Brown Voiding Methods Indwelling Catheter Laboratory Results WBC 7.44 k/cumm (4.4-10.8) 10/19/18 05:30 RBC 3.39 m/cumm (4.00-5.20) L 10/19/18 05:30 Hgb 9.3 g/dL (12.0-15.5) L 10/19/18 05:30 Hct 29.8 % (36.0-46.0) L 10/19/18 05:30 MCV 87.9 fL (80-95) 10/19/18 05:30 MCH 27.4 pg (27.0-33.0) 10/19/18 05:30 MCHC 31.2 g/dL (32.0-36.0) L 10/19/18 05:30 RDW 19.3 % (11.7-14.6) H 10/19/18 05:30 Plt Count 300 x1000/uL (130-400) 10/19/18 05:30 MPV 9.5 fL (8.0-11.0) 10/19/18 05:30 Immature Gran % See Differential 10/15/18 08:05 Neutrophils % 66.0 10/15/18 08:05 Lymphocytes % 17.0 10/15/18 08:05 Atypical Lymphs % 1 10/15/18 08:05 Monocytes % 11.0 10/15/18 08:05 Eosinophils % 2.0 10/15/18 08:05 Basophils % 0.0 10/15/18 08:05 Myelocytes % 3.0 % 10/15/18 08:05 Absolute Neutrophils 3.97 k/cumm (1.2-6.7) 10/15/18 08:05 Absolute Lymphocytes 1.08 k/cumm (1.2-3.4) L 10/15/18 08:05 Absolute Monocytes 0.66 k/cumm (0.11-0.7) 10/15/18 08:05 Absolute Eosinophils 0.12 k/cumm (0.0-0.7) 10/15/18 08:05 Absolute Basophils 0.00 k/cumm (0.0-0.2) 10/15/18 08:05 Differential Comment Manual differential 10/15/18 08:05 RBC Morphology See below 10/15/18 08:05 Polychromasia Present 10/15/18 08:05 Poikilocytosis 2+ 10/15/18 08:05 Anisocytosis 2+ 10/15/18 08:05 PT 12.0 sec (9.3-11.0) H 10/18/18 07:11 INR 1.2 (0.9-1.1) H 10/18/18 07:11 Sodium 139 mmol/L (136-145) 10/19/18 05:30 Potassium 3.7 mmol/L (3.5-5.1) 10/19/18 05:30 Chloride 105 mmol/L (98-107) 10/19/18 05:30 Carbon Dioxide 27.8 mmol/L (21.0-32.0) 10/19/18 05:30 Anion Gap 6.2 mmol/L (3-11) 10/19/18 05:30 BUN 13 mg/dL (7-18) 10/19/18 05:30 Creatinine 0.55 mg/dL (0.55-1.02) 10/19/18 05:30 Estimated GFR/1.73 m2 >= 60.00 (mL/min/1.73m2) 10/19/18 05:30 Glucose 145 mg/dL (70-100) H 10/19/18 05:30 Calcium 7.4 mg/dL (8.5-10.1) L 10/19/18 05:30 Phosphorus 2.2 mg/dL (2.6-4.7) L 10/19/18 05:30 Magnesium 1.8 mg/dL (1.8-2.4) 10/19/18 05:30 Total Bilirubin 0.1 mg/dL (0.2-1.0) L 10/18/18 06:25 AST 13 U/L (15-37) L 10/18/18 06:25 ALT 13 U/L (12-78) 10/18/18 06:25 Alkaline Phosphatase 68 U/L (46-116) 10/18/18 06:25 Troponin I < 0.02 ng/mL (0.00-0.06) 10/12/18 06:09 C-Reactive Protein 5.35 mg/dL (0.0-0.3) H 10/14/18 06:45 Total Protein 6.0 g/dL (6.4-8.2) L 10/18/18 06:25 Albumin 2.2 g/dL (3.4-5.0) L 10/18/18 06:25 Prealbumin 7 mg/dL (20-40) L 10/15/18 08:05 Lipase 38 U/L (73-393) L 10/12/18 06:09 Urine Color Cancelled 10/12/18 06:14 Urine Clarity Cancelled 10/12/18 06:14 Urine pH Cancelled 10/12/18 06:14 Ur Specific [place] Cancelled 10/12/18 06:14 Urine Protein Cancelled 10/12/18 06:14 Urine Ketones Cancelled 10/12/18 06:14 Urine Blood Cancelled 10/12/18 06:14 Urine Nitrite Cancelled 10/12/18 06:14 Urine Bilirubin Cancelled 10/12/18 06:14 Urine Urobilinogen Cancelled 10/12/18 06:14 Ur Leukocyte Esterase Cancelled 10/12/18 06:14 Urine Glucose Cancelled 10/12/18 06:14 Stl C.difficile Tox PCR Cancelled 10/12/18 19:00 C.difficile Tox Source Cancelled 10/12/18 19:00
--- NOTE | 2018-10-19 16:47 | PGE_ITS ---
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 She is on Surgical service with hospitalist consult. Bowel rest with TPN per surgical recommendations. Patient is only stooling from vaginal vault area/fistula since yesterday morning. Surgery to consider transfer (highly probable) for colorectal surgery as indicated. She is having Nausea and pain today, zofran and morphine as ordered. (2) Colitis: Current visit: No Status: Acute Afebrile, no leukocytosis. Inflammation at site of anastomosis on CT scan. Surgery following. Continue Cipro and Flagyl. Hospitalist service to continue to follow along. (3) UTI (urinary tract infection): Current visit: No Status: Resolved Present on admission. Culture growing greater than 100,000 colonies of gram-positive kareem, mixed. Has Fajardo in place. With fistula there is concern for ongoing infection. Continue empiric Cipro. Afebrile and WBC normal Qualifiers: Urinary tract infection type: acute cystitis (4) Urinary retention with incomplete bladder emptying: Current visit: No Status: Acute Chronic urinary retention. Has been seen by urology, Dr. Dalton suspects that the inflammation of her colon is contributing to her retention. He does not suspect colovesical fistula as no coliforms were found on urine culture. He recommends continue indwelling catheter for now. (5) Ambulatory dysfunction: Current visit: No Status: Acute Continue PT/OT. (6) Adrenal insufficiency: Current visit: No Status: Acute On stress dose steroids, began taper 5 days ago (10/14), feeling weakness today and not well, think this is more related to abdominal problems. Continue at current dose. Will need slow taper. Discuss with Rheumatology prior to discharge for recommendations. (7) PMR (polymyalgia rheumatica): Current visit: No Status: Chronic chronic steroid use, will need slow taper with recommendation from rheumatology (8) Compression fracture of body of thoracic vertebra: Current visit: No Status: Acute Pain well controlled at present. Continue home regimen for pain control. Heat for comfort. May use brace for comfort. (9) Anemia: Current visit: No Status: Acute Chronic, stable. Remains on home dose of Iron. Continue to monitor. TPN as well Qualifiers: Anemia type: iron deficiency Iron deficiency anemia type: other iron deficiency Qualified Code(s): D50.8 - Other iron deficiency anemias (10) Hypokalemia: Current visit: No Status: Acute Repleted K, continue to monitor with phosphorus receiving TPN, adjust combo as needed to meet nutritional needs. (11) DVT prophylaxis: Current visit: No Status: Acute Subcutaneous heparin. (12) Discharge planning issues: Current visit: No Status: Acute She is a DNR/DNI. PT [facility] at time of discharge. This case was discussed with Dr. Rosario who is in agreement. Subjective Interval history since last seen: Mrs. Manuel endorses increased nausea and lower abdominal pain. She is using morphine and zofran as needed for comfort. At this time she is stooling only from her vaginal fistula. Per nursing the last time stool came from her rectum was yesterday morning. Dr. Schwarz is aware. Continues to be NPO with TPN supplementation. Denies chest pain, palpitations. Denies SOB, cough. Afebrile, vitals stable, no leukocytosis. Exam Narrative Exam Narrative: General: Pleasant elderly female, lying in bed. Neck: Supple, no JVD. HEENT: Normocephalic, atraumatic. Pupils equal and round, extraocular movements intact, mucous membranes moist, lesion to bottom lip, right-side, no active drainage. Heart: Regular rate and rhythm, no murmur/friction/rub appreciated. Lungs: Respirations even and unlabored, lung sounds clear to auscultation bilaterally, NAD. GI: abdomen is soft, bowel sounds present in all four quadrants, LLQ tenderness upon palpation : fajardo draining clear yellow urine, feces noted within vaginal canal and along fajardo catheter. Extremities: BLE trace edema +PP. Objective Objective Clinical Data: Abnormal lab results 10/19/18 10/19/18 Range/Units 05:30 05:30 RBC 3.39 L (4.00-5.20) m/cumm Hgb 9.3 L (12.0-15.5) g/dL Hct 29.8 L (36.0-46.0) % MCHC 31.2 L (32.0-36.0) g/dL RDW 19.3 H (11.7-14.6) % Glucose 145 H (70-100) mg/dL Calcium 7.4 L (8.5-10.1) mg/dL Phosphorus 2.2 L (2.6-4.7) mg/dL Vital Signs Temperature 36.1 C L 10/19/18 11:06 Temperature Source Tympanic 10/19/18 11:06 Pulse 63 10/19/18 11:06 Pulse Rhythm Regular 10/19/18 11:09 Pulse Strength Normal 10/12/18 09:39 Respiratory Rate 16 10/19/18 11:06 Respiratory Effort 10/19/18 11:09 Respiratory Depth Normal 10/19/18 11:09 Respiratory Pattern Normal 10/19/18 11:09 Blood Pressure 148/68 H 10/19/18 11:06 Blood Pressure Mean 80 10/12/18 09:39 Pulse Oximetry 95 10/19/18 11:06 Oxygen Delivery Method Room Air 10/19/18 11:06 Oxygen Flow Rate 0 10/19/18 11:06 Pain Level 2 10/19/18 11:06 Comment 10/17/18 04:36 Intake & Output 10/18/18 10/19/18 10/19/18 23:59 11:59 23:59 Intake Total 2361 / 3807 1496 / 1496 Output Total 2700 / 5100 2650 / 4450 1800 / 4450 Balance -339 / -1293 -1154 / -2954 -1800 / -2954 Weight 76.2 kg Intake: IV 2361 / 3807 1466 / 1466 Oral 30 / 30 Output: Urine 2700 / 5100 2650 / 4450 1800 / 4450 Other: Urine Color Straw Yellow Yellow Urine Appearance Clear Clear Clear Urine Odor Normal Stool Size Small Moderate Small Stool Characteristics Soft Soft Soft Brown Formed Brown Brown Voiding Methods Indwelling Catheter Laboratory Results WBC 7.44 k/cumm (4.4-10.8) 10/19/18 05:30 RBC 3.39 m/cumm (4.00-5.20) L 10/19/18 05:30 Hgb 9.3 g/dL (12.0-15.5) L 10/19/18 05:30 Hct 29.8 % (36.0-46.0) L 10/19/18 05:30 MCV 87.9 fL (80-95) 10/19/18 05:30 MCH 27.4 pg (27.0-33.0) 10/19/18 05:30 MCHC 31.2 g/dL (32.0-36.0) L 10/19/18 05:30 RDW 19.3 % (11.7-14.6) H 10/19/18 05:30 Plt Count 300 x1000/uL (130-400) 10/19/18 05:30 MPV 9.5 fL (8.0-11.0) 10/19/18 05:30 Immature Gran % See Differential 10/15/18 08:05 Neutrophils % 66.0 10/15/18 08:05 Lymphocytes % 17.0 10/15/18 08:05 Atypical Lymphs % 1 10/15/18 08:05 Monocytes % 11.0 10/15/18 08:05 Eosinophils % 2.0 10/15/18 08:05 Basophils % 0.0 10/15/18 08:05 Myelocytes % 3.0 % 10/15/18 08:05 Absolute Neutrophils 3.97 k/cumm (1.2-6.7) 10/15/18 08:05 Absolute Lymphocytes 1.08 k/cumm (1.2-3.4) L 10/15/18 08:05 Absolute Monocytes 0.66 k/cumm (0.11-0.7) 10/15/18 08:05 Absolute Eosinophils 0.12 k/cumm (0.0-0.7) 10/15/18 08:05 Absolute Basophils 0.00 k/cumm (0.0-0.2) 10/15/18 08:05 Differential Comment Manual differential 10/15/18 08:05 RBC Morphology See below 10/15/18 08:05 Polychromasia Present 10/15/18 08:05 Poikilocytosis 2+ 10/15/18 08:05 Anisocytosis 2+ 10/15/18 08:05 PT 12.0 sec (9.3-11.0) H 10/18/18 07:11 INR 1.2 (0.9-1.1) H 10/18/18 07:11 Sodium 139 mmol/L (136-145) 10/19/18 05:30 Potassium 3.7 mmol/L (3.5-5.1) 10/19/18 05:30 Chloride 105 mmol/L (98-107) 10/19/18 05:30 Carbon Dioxide 27.8 mmol/L (21.0-32.0) 10/19/18 05:30 Anion Gap 6.2 mmol/L (3-11) 10/19/18 05:30 BUN 13 mg/dL (7-18) 10/19/18 05:30 Creatinine 0.55 mg/dL (0.55-1.02) 10/19/18 05:30 Estimated GFR/1.73 m2 >= 60.00 (mL/min/1.73m2) 10/19/18 05:30 Glucose 145 mg/dL (70-100) H 10/19/18 05:30 Calcium 7.4 mg/dL (8.5-10.1) L 10/19/18 05:30 Phosphorus 2.2 mg/dL (2.6-4.7) L 10/19/18 05:30 Magnesium 1.8 mg/dL (1.8-2.4) 10/19/18 05:30 Total Bilirubin 0.1 mg/dL (0.2-1.0) L 10/18/18 06:25 AST 13 U/L (15-37) L 10/18/18 06:25 ALT 13 U/L (12-78) 10/18/18 06:25 Alkaline Phosphatase 68 U/L (46-116) 10/18/18 06:25 Troponin I < 0.02 ng/mL (0.00-0.06) 10/12/18 06:09 C-Reactive Protein 5.35 mg/dL (0.0-0.3) H 10/14/18 06:45 Total Protein 6.0 g/dL (6.4-8.2) L 10/18/18 06:25 Albumin 2.2 g/dL (3.4-5.0) L 10/18/18 06:25 Prealbumin 7 mg/dL (20-40) L 10/15/18 08:05 Lipase 38 U/L (73-393) L 10/12/18 06:09 Urine Color Cancelled 10/12/18 06:14 Urine Clarity Cancelled 10/12/18 06:14 Urine pH Cancelled 10/12/18 06:14 Ur Specific [place] Cancelled 10/12/18 06:14 Urine Protein Cancelled 10/12/18 06:14 Urine Ketones Cancelled 10/12/18 06:14 Urine Blood Cancelled 10/12/18 06:14 Urine Nitrite Cancelled 10/12/18 06:14 Urine Bilirubin Cancelled 10/12/18 06:14 Urine Urobilinogen Cancelled 10/12/18 06:14 Ur Leukocyte Esterase Cancelled 10/12/18 06:14 Urine Glucose Cancelled 10/12/18 06:14 Stl C.difficile Tox PCR Cancelled 10/12/18 19:00 C.difficile Tox Source Cancelled 10/12/18 19:00
--- NOTE | 2018-10-19 18:24 | NUR.NOTE ---
checked patients FS because pt said vision was fuzzy. FS 140, vitals stable. The dark was off and pts glasses were off. Once nursing turned on lights pt said vision was better. Nursing Note:
[2018-10-19] MEDS: Patch Removal 1 EACH TP (19:30)
[2018-10-19 20:15] VITALS: BP 133/63; PULSE 68; RESP 17; TEMP 36.5; O2SAT 96
[2018-10-19] MEDS: Zolpidem 5 MG TAB PO (23:00)
[2018-10-19] MEDS: Melatonin 3 MG TAB 6 MG PO (23:00)
[2018-10-19 23:05] VITALS: BP 131/65; PULSE 67; RESP 18; TEMP 36.1; O2SAT 96
[2018-10-20] MEDS: Normal Saline Flush 10 ML SYR IVP ×7 (04:32→23:05)
[2018-10-20] MEDS: Hydrocortisone SOD SUC. 100 MG VIAL 50 MG IVP ×2 (04:34→16:24)
[2018-10-20] MEDS: metroNIDAZOLE 500 MG/100 ML BAG 100 MG IVPB ×3 (04:34→19:52)
[2018-10-20 04:35] VITALS: BP 129/72; PULSE 68; RESP 18; TEMP 36.6; O2SAT 96
[2018-10-20] MEDS: ACETAMINOPHEN 1,000 MG/100 ML BTL 400 MG IVPB (05:47)
[2018-10-20] MEDS: Levothyroxine 125 MCG TAB PO (06:44)
[2018-10-20 07:07] LABS: HCT 29.5 % (36.0-46.0); Mean Corp. HGB Concentration 30.5 g/dL (32.0-36.0); Mean Corpuscular Hemoglobin 26.9 pg (27.0-33.0); Mean Corpuscular Volume 88.3 fL (80-95); Mean Platelet Volume 9.8 fL (8.0-11.0); Platelet Count 327 x1000/uL (130-400); RBC 3.34 m/cumm (4.00-5.20); RBC Distribution Width 19.4 % (11.7-14.6); White Blood Cell Count 8.36 k/cumm (4.4-10.8)
[2018-10-20 07:15] VITALS: BP 136/67; PULSE 66; RESP 12; TEMP 36.5; O2SAT 97
[2018-10-20 07:28] LABS: BUN 15 mg/dL (7-18); CREATININE 0.53 mg/dL (0.55-1.02); Calcium 7.3 mg/dL (8.5-10.1); Chloride 105 mmol/L (98-107); Glucose 132 mg/dL (70-100); Magnesium 1.8 mg/dL (1.8-2.4); PHOSPHORUS 1.9 mg/dL (2.6-4.7); Potassium 3.3 mmol/L (3.5-5.1); Sodium 139 mmol/L (136-145)
--- NOTE | 2018-10-20 07:51 | CMPROGNOTE_ITS ---
- If Service Date Differs Date of service: 10/20/18 Time of Service: 07:50 Care Management Progress Note S/O:Pat was sitting on the side of the bed during CM visit, smiling and expressing hopefulness. She feels that her imminent transfer to a tertiary care facility will help her to resolve her current healthcare challenges. She received a prayer shawl and felt touched by the gesture and the caring spirit withat which it was made and given. Awaiting a bed at [facility] or [facility]. 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 P:Pat remains on IV antibiotics and TPN. She continues to receive PT. Anticipate possible transfer to tertiary center pending surgeon determination and bed availability. Transportation to be coordinated by [facility] at time of discharge.
[2018-10-20] MEDS: Ondansetron 4 MG/2 ML VIAL IVP (08:10)
--- NOTE | 2018-10-20 08:31 | W.PM.PROGNOT ---
Date of Service Date of service: 10/20/18 Time of Service: 08:31 Assessment and Plan (1) Hypokalemia: Current visit: Yes Status: Acute On TPN. 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 Stool is soft. Patient feels constipated. I wonder if she has developed a stricture as on rectal exam there was no stool in her rectum. P\\ Clear liquids and watch for N/V. Awaiting bed availablitity at [facility]. Discussed potential transfer to [facility]. Amanda will discuss with her . If agreeable to go to [facility], they may have a bed available earlier. I will call and discuss case with Colorectal surgeon at [facility] if patient amenable to [facility] transfer. Subjective Interval history since last seen: Amanda is frustrated. She continues to have soft stooling through her vagina. No stool through her rectum. Feeling nauseated. Her nose is congested. I discussed with her that I spoke with Dr. Moscoso at [facility] last night about her case. Dr. Moscoso has accepted the patient. [facility] has no beds available at this time. They will give me a call back after 10 am to see if they have a projection on when they may have a bed available. I also have called [facility] transfer center and they also have no beds at this time. They project opening in 24 to 48 hours. Exam Resp Effort & Inspection: normal respiratory effort Auscultation: clear to auscultation bilaterally Cardio Rate: regular rate Rhythm: regular rhythm GI Inspection: normal to inspection Palpation: soft, no hepatosplenomegaly and nontender Auscultation: normal bowel sounds Objective Objective Clinical Data: Abnormal lab results 10/20/18 10/20/18 Range/Units 06:35 06:35 RBC 3.34 L (4.00-5.20) m/cumm Hgb 9.0 L (12.0-15.5) g/dL Hct 29.5 L (36.0-46.0) % MCH 26.9 L (27.0-33.0) pg MCHC 30.5 L (32.0-36.0) g/dL RDW 19.4 H (11.7-14.6) % Potassium 3.3 L (3.5-5.1) mmol/L Creatinine 0.53 L (0.55-1.02) mg/dL Glucose 132 H (70-100) mg/dL Calcium 7.3 L (8.5-10.1) mg/dL Phosphorus 1.9 L (2.6-4.7) mg/dL Vital Signs Temperature 97.7 F 10/20/18 07:15 Temperature Source Tympanic 10/20/18 07:15 Pulse 66 10/20/18 07:15 Pulse Rhythm Regular 10/19/18 20:17 Pulse Strength Normal 10/12/18 09:39 Respiratory Rate 12 10/20/18 07:15 Respiratory Effort Non-Labored 10/19/18 20:17 Respiratory Depth Normal 10/19/18 20:17 Respiratory Pattern Normal 10/19/18 20:17 Blood Pressure 136/67 10/20/18 07:15 Blood Pressure Mean 80 10/12/18 09:39 Pulse Oximetry 97 10/20/18 07:15 Oxygen Delivery Method Room Air 10/20/18 07:15 Oxygen Flow Rate 0 10/20/18 07:15 Pain Level 0 10/20/18 07:15 Comment 10/19/18 23:05 Intake & Output 10/19/18 10/19/18 10/20/18 11:59 23:59 11:59 Intake Total 1696 / 3621 1925 / 3621 1236 / 1236 Output Total 2650 / 5650 3000 / 5650 750 / 750 Balance -954 / -2028 -107 / -2028 486 / 486 Weight 167 lb 15.876 oz 164 lb 14.492 oz Intake: IV 1666 / 3561 1895 / 3561 1236 / 1236 Oral 30 / 60 30 / 60 Output: Urine 2650 / 5650 3000 / 5650 750 / 750 Other: Urine Color Yellow Yellow Urine Appearance Clear Clear Urine Odor Normal Stool Size Moderate Small Stool Characteristics Soft Soft Formed Brown Brown Voiding Methods Indwelling Catheter Laboratory Results WBC 8.36 k/cumm (4.4-10.8) 10/20/18 06:35 RBC 3.34 m/cumm (4.00-5.20) L 10/20/18 06:35 Hgb 9.0 g/dL (12.0-15.5) L 10/20/18 06:35 Hct 29.5 % (36.0-46.0) L 10/20/18 06:35 MCV 88.3 fL (80-95) 10/20/18 06:35 MCH 26.9 pg (27.0-33.0) L 10/20/18 06:35 MCHC 30.5 g/dL (32.0-36.0) L 10/20/18 06:35 RDW 19.4 % (11.7-14.6) H 10/20/18 06:35 Plt Count 327 x1000/uL (130-400) 10/20/18 06:35 MPV 9.8 fL (8.0-11.0) 10/20/18 06:35 Immature Gran % See Differential 10/15/18 08:05 Neutrophils % 66.0 10/15/18 08:05 Lymphocytes % 17.0 10/15/18 08:05 Atypical Lymphs % 1 10/15/18 08:05 Monocytes % 11.0 10/15/18 08:05 Eosinophils % 2.0 10/15/18 08:05 Basophils % 0.0 10/15/18 08:05 Myelocytes % 3.0 % 10/15/18 08:05 Absolute Neutrophils 3.97 k/cumm (1.2-6.7) 10/15/18 08:05 Absolute Lymphocytes 1.08 k/cumm (1.2-3.4) L 10/15/18 08:05 Absolute Monocytes 0.66 k/cumm (0.11-0.7) 10/15/18 08:05 Absolute Eosinophils 0.12 k/cumm (0.0-0.7) 10/15/18 08:05 Absolute Basophils 0.00 k/cumm (0.0-0.2) 10/15/18 08:05 Differential Comment Manual differential 10/15/18 08:05 RBC Morphology See below 10/15/18 08:05 Polychromasia Present 10/15/18 08:05 Poikilocytosis 2+ 10/15/18 08:05 Anisocytosis 2+ 10/15/18 08:05 PT 12.0 sec (9.3-11.0) H 10/18/18 07:11 INR 1.2 (0.9-1.1) H 10/18/18 07:11 Sodium 139 mmol/L (136-145) 10/20/18 06:35 Potassium 3.3 mmol/L (3.5-5.1) L 10/20/18 06:35 Chloride 105 mmol/L (98-107) 10/20/18 06:35 Carbon Dioxide 27.0 mmol/L (21.0-32.0) 10/20/18 06:35 Anion Gap 7.0 mmol/L (3-11) 10/20/18 06:35 BUN 15 mg/dL (7-18) 10/20/18 06:35 Creatinine 0.53 mg/dL (0.55-1.02) L 10/20/18 06:35 Estimated GFR/1.73 m2 >= 60.00 (mL/min/1.73m2) 10/20/18 06:35 Glucose 132 mg/dL (70-100) H 10/20/18 06:35 Calcium 7.3 mg/dL (8.5-10.1) L 10/20/18 06:35 Phosphorus 1.9 mg/dL (2.6-4.7) L 10/20/18 06:35 Magnesium 1.8 mg/dL (1.8-2.4) 10/20/18 06:35 Total Bilirubin 0.1 mg/dL (0.2-1.0) L 10/18/18 06:25 AST 13 U/L (15-37) L 10/18/18 06:25 ALT 13 U/L (12-78) 10/18/18 06:25 Alkaline Phosphatase 68 U/L (46-116) 10/18/18 06:25 Troponin I < 0.02 ng/mL (0.00-0.06) 10/12/18 06:09 C-Reactive Protein 5.35 mg/dL (0.0-0.3) H 10/14/18 06:45 Total Protein 6.0 g/dL (6.4-8.2) L 10/18/18 06:25 Albumin 2.2 g/dL (3.4-5.0) L 10/18/18 06:25 Prealbumin 7 mg/dL (20-40) L 10/15/18 08:05 Lipase 38 U/L (73-393) L 10/12/18 06:09 Urine Color Cancelled 10/12/18 06:14 Urine Clarity Cancelled 10/12/18 06:14 Urine pH Cancelled 10/12/18 06:14 Ur Specific [place] Cancelled 10/12/18 06:14 Urine Protein Cancelled 10/12/18 06:14 Urine Ketones Cancelled 10/12/18 06:14 Urine Blood Cancelled 10/12/18 06:14 Urine Nitrite Cancelled 10/12/18 06:14 Urine Bilirubin Cancelled 10/12/18 06:14 Urine Urobilinogen Cancelled 10/12/18 06:14 Ur Leukocyte Esterase Cancelled 10/12/18 06:14 Urine Glucose Cancelled 10/12/18 06:14 Stl C.difficile Tox PCR Cancelled 10/12/18 19:00 C.difficile Tox Source Cancelled 10/12/18 19:00
--- NOTE | 2018-10-20 08:40 | PGE_ITS ---
Date of Service Date of service: 10/20/18 Time of Service: 08:31 Assessment and Plan (1) Hypokalemia: Current visit: Yes Status: Acute On TPN. 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 Stool is soft. Patient feels constipated. I wonder if she has developed a stricture as on rectal exam there was no stool in her rectum. P\\ Clear liquids and watch for N/V. Awaiting bed availablitity at [facility]. Discussed potential transfer to [facility] [[email or web address] Amanda will discuss with her . If agreeable to go to [facility] [[email or web address]], they may have a bed available earlier. I will call and discuss case with Colorectal surgeon at [facility] [[email or web address]] if patient amenable to [facility] [[email or web address]] transfer. Subjective Interval history since last seen: Amanda is frustrated. She continues to have soft stooling through her vagina. No stool through her rectum. Feeling nauseated. Her nose is congested. I discussed with her that I spoke with Dr. Moscoso at [facility] last night about her case. Dr. Moscoso has accepted the patient. [facility] has no beds available at this time. They will give me a call back after 10 am to see if they have a p rojection on when they may have a bed available. I also have called [facility] [[email or web address]] transfer center and they also have no beds at this time. They project opening in 24 to 48 hours. Exam Resp Effort & Inspection: normal respiratory effort Auscultation: clear to auscultation bilaterally Cardio Rate: regular rate Rhythm: regular rhythm GI Inspection: normal to inspection Palpation: soft, no hepatosplenomegaly and nontender Auscultation: normal bowel sounds Objective Objective Clinical Data: Abnormal lab results 10/20/18 10/20/18 Range/Units 06:35 06:35 RBC 3.34 L (4.00-5.20) m/cumm Hgb 9.0 L (12.0-15.5) g/dL Hct 29.5 L (36.0-46.0) % MCH 26.9 L (27.0-33.0) pg MCHC 30.5 L (32.0-36.0) g/dL RDW 19.4 H (11.7-14.6) % Potassium 3.3 L (3.5-5.1) mmol/L Creatinine 0.53 L (0.55-1.02) mg/dL Glucose 132 H (70-100) mg/dL Calcium 7.3 L (8.5-10.1) mg/dL Phosphorus 1.9 L (2.6-4.7) mg/dL Vital Signs Temperature 97.7 F 10/20/18 07:15 Temperature Source Tympanic 10/20/18 07:15 Pulse 66 10/20/18 07:15 Pulse Rhythm Regular 10/19/18 20:17 Pulse Strength Normal 10/12/18 09:39 Respiratory Rate 12 10/20/18 07:15 Respiratory Effort Non-Labored 10/19/18 20:17 Respiratory Depth Normal 10/19/18 20:17 Respiratory Pattern Normal 10/19/18 20:17 Blood Pressure 136/67 10/20/18 07:15 Blood Pressure Mean 80 10/12/18 09:39 Pulse Oximetry 97 10/20/18 07:15 Oxygen Delivery Method Room Air 10/20/18 07:15 Oxygen Flow Rate 0 10/20/18 07:15 Pain Level 0 10/20/18 07:15 Comment 10/19/18 23:05 Intake & Output 10/19/18 10/19/18 10/20/18 11:59 23:59 11:59 Intake Total 1696 / 3621 1925 / 3621 1236 / 1236 Output Total 2650 / 5650 3000 / 5650 750 / 750 Balance -954 / -2028 -1075 / -2028 486 / 486 Weight 167 lb 15.876 oz 164 lb 14.492 oz Intake: IV 1666 / 3561 1895 / 3561 1236 / 1236 Oral 30 / 60 30 / 60 Output: Urine 2650 / 5650 3000 / 5650 750 / 750 Other: Urine Color Yellow Yellow Urine Appearance Clear Clear Urine Odor Normal Stool Size Moderate Small Stool Characteristics Soft Soft Formed Brown Brown Voiding Methods Indwelling Catheter Laboratory Results WBC 8.36 k/cumm (4.4-10.8) 10/20/18 06:35 RBC 3.34 m/cumm (4.00-5.20) L 10/20/18 06:35 Hgb 9.0 g/dL (12.0-15.5) L 10/20/18 06:35 Hct 29.5 % (36.0-46.0) L 10/20/18 06:35 MCV 88.3 fL (80-95) 10/20/18 06:35 MCH 26.9 pg (27.0-33.0) L 10/20/18 06:35 MCHC 30.5 g/dL (32.0-36.0) L 10/20/18 06:35 RDW 19.4 % (11.7-14.6) H 10/20/18 06:35 Plt Count 327 x1000/uL (130-400) 10/20/18 06:35 MPV 9.8 fL (8.0-11.0) 10/20/18 06:35 Immature Gran % See Differential 10/15/18 08:05 Neutrophils % 66.0 10/15/18 08:05 Lymphocytes % 17.0 10/15/18 08:05 Atypical Lymphs % 1 10/15/18 08:05 Monocytes % 11.0 10/15/18 08:05 Eosinophils % 2.0 10/15/18 08:05 Basophils % 0.0 10/15/18 08:05 Myelocytes % 3.0 % 10/15/18 08:05 Absolute Neutrophils 3.97 k/cumm (1.2-6.7) 10/15/18 08:05 Absolute Lymphocytes 1.08 k/cumm (1.2-3.4) L 10/15/18 08:05 Absolute Monocytes 0.66 k/cumm (0.11-0.7) 10/15/18 08:05 Absolute Eosinophils 0.12 k/cumm (0.0-0.7) 10/15/18 08:05 Absolute Basophils 0.00 k/cumm (0.0-0.2) 10/15/18 08:05 Differential Comment Manual differential 10/15/18 08:05 RBC Morphology See below 10/15/18 08:05 Polychromasia Present 10/15/18 08:05 Poikilocytosis 2+ 10/15/18 08:05 Anisocytosis 2+ 10/15/18 08:05 PT 12.0 sec (9.3-11.0) H 10/18/18 07:11 INR 1.2 (0.9-1.1) H 10/18/18 07:11 Sodium 139 mmol/L (136-145) 10/20/18 06:35 Potassium 3.3 mmol/L (3.5-5.1) L 10/20/18 06:35 Chloride 105 mmol/L (98-107) 10/20/18 06:35 Carbon Dioxide 27.0 mmol/L (21.0-32.0) 10/20/18 06:35 Anion Gap 7.0 mmol/L (3-11) 10/20/18 06:35 BUN 15 mg/dL (7-18) 10/20/18 06:35 Creatinine 0.53 mg/dL (0.55-1.02) L 10/20/18 06:35 Estimated GFR/1.73 m2 >= 60.00 (mL/min/1.73m2) 10/20/18 06:35 Glucose 132 mg/dL (70-100) H 10/20/18 06:35 Calcium 7.3 mg/dL (8.5-10.1) L 10/20/18 06:35 Phosphorus 1.9 mg/dL (2.6-4.7) L 10/20/18 06:35 Magnesium 1.8 mg/dL (1.8-2.4) 10/20/18 06:35 Total Bilirubin 0.1 mg/dL (0.2-1.0) L 10/18/18 06:25 AST 13 U/L (15-37) L 10/18/18 06:25 ALT 13 U/L (12-78) 10/18/18 06:25 Alkaline Phosphatase 68 U/L (46-116) 10/18/18 06:25 Troponin I < 0.02 ng/mL (0.00-0.06) 10/12/18 06:09 C-Reactive Protein 5.35 mg/dL (0.0-0.3) H 10/14/18 06:45 Total Protein 6.0 g/dL (6.4-8.2) L 10/18/18 06:25 Albumin 2.2 g/dL (3.4-5.0) L 10/18/18 06:25 Prealbumin 7 mg/dL (20-40) L 10/15/18 08:05 Lipase 38 U/L (73-393) L 10/12/18 06:09 Urine Color Cancelled 10/12/18 06:14 Urine Clarity Cancelled 10/12/18 06:14 Urine pH Cancelled 10/12/18 06:14 Ur Specific [place] Cancelled 10/12/18 06:14 Urine Protein Cancelled 10/12/18 06:14 Urine Ketones Cancelled 10/12/18 06:14 Urine Blood Cancelled 10/12/18 06:14 Urine Nitrite Cancelled 10/12/18 06:14 Urine Bilirubin Cancelled 10/12/18 06:14 Urine Urobilinogen Cancelled 10/12/18 06:14 Ur Leukocyte Esterase Cancelled 10/12/18 06:14 Urine Glucose Cancelled 10/12/18 06:14 Stl C.difficile Tox PCR Cancelled 10/12/18 19:00 C.difficile Tox Source Cancelled 10/12/18 19:00
[2018-10-20] MEDS: Heparin 5,000 UNITS/ML VIAL 5000 UNITS SC ×3 (10:05→23:10)
[2018-10-20] MEDS: MORPHine 10 MG/ML VIAL 5 MG IVP ×2 (10:05→23:04)
[2018-10-20] MEDS: buPROPion-XL 150 MG TABCR 450 MG PO (10:05)
[2018-10-20] MEDS: Pantoprazole 40 MG VIAL IVP ×2 (10:05→19:47)
[2018-10-20] MEDS: Potassium Chloride 20 MEQ TABCR 40 MEQ PO ×2 (10:06→19:51)
[2018-10-20] MEDS: Nystatin CREAM 15 GM TUBE TP ×2 (10:06→19:53)
[2018-10-20] MEDS: Multivitamin TAB 1 TAB PO (10:08)
[2018-10-20] MEDS: amLODIPine 5 MG TAB PO (10:08)
[2018-10-20] MEDS: Furosemide 20 MG TAB PO (10:08)
[2018-10-20] MEDS: Folic Acid 1 MG TAB PO (10:08)
[2018-10-20] MEDS: Lidocaine 5% Patch 1 PATCH TP (10:09)
[2018-10-20] MEDS: CIPROFLOXACIN 400 MG/200 ML BAG 200 MG IVPB ×2 (10:09→21:19)
[2018-10-20] MEDS: Aspirin E.C. 81 MG TABEC PO (10:09)
[2018-10-20] MEDS: Ferrous Gluconate 324 MG TAB PO (10:09)
[2018-10-20] MEDS: Nystatin POWDER 60 GM JAR TP ×2 (10:12→19:53)
--- NOTE | 2018-10-20 10:29 | PT.INTREAT ---
Date of service: 10/20/18 Time of Service: 15:17 PT Notes Inpatient Physical Therapy Treatment Note [facility] Date: 10/20/18 PRECAUTIONS: Fall SUBJECTIVE: Is pleasant and interaction, stating she feels pretty good today, and is agreeable to participating in PT. OBJECTIVE: PAIN: No complaints of pain. BED MOBILITY/TRANSFERS Supine-sit: I Sit-stand: S Stand-sit: S GAIT Assistive Device: 4 WW Weight bearing: Full Assist: S Distance: 200' in a.m.; 300' in p.m. Deviation: No shuffling gait noted THEREX: Patient completed a standing lower extremity strengthening program, as per flow sheet. Patient also performed functional sit?to?stand exercise. ASSESSMENT: Patient tolerated session well, without complaint. Patient was able to tolerate a slight progression in gait distance with 4 WW support and supervision. Patient would benefit from continued conditioning for improved activity tolerance. PLAN: Continue with PTs POC TREATMENT CODE/TIME: Session 1: 15 minutes; [id number] Session 2: 25 minutes; [id number], [id number]
[2018-10-20] MEDS: Insulin Aspart 300 UNITS/3 ML PEN SC ×2 (11:20→21:22)
[2018-10-20 11:27] VITALS: BP 139/71; PULSE 66; RESP 20; TEMP 36.5; O2SAT 97
--- NOTE | 2018-10-20 15:08 | CHAPLAIN ---
Amanda said she was feeling a bit better this morning. She is waiting to be transferred to [facility] and said she was told it wouldn't be today. She said staff here has been very nice to her, but she is looking forward to getting to [facility] and having a plan established. Amanda is [place] and has been visited by the priests here and I let her know about the [place] assistant dean at [facility]. She appreciate the prayer shawl she was given. I'll continue to visit.
--- NOTE | 2018-10-20 15:08 | W.PM.PROGNOT ---
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 She is on Surgical service with hospitalist consult. Bowel rest with TPN per surgical recommendations. She has been accepted to [facility] and is awaiting bed availability. Dr. Schwarz to discuss with [facility] as well. Surgery will transfer when a bed becomes available. (2) Colitis: Current visit: No Status: Acute Afebrile, no leukocytosis. Inflammation noted at site of anastomosis on CT scan. Surgery following. Continue Cipro and Flagyl. Hospitalist service to continue to follow along. (3) UTI (urinary tract infection): Current visit: No Status: Resolved Present on admission. Culture growing greater than 100,000 colonies of gram-positive kareem, mixed. Has Fajardo in place. With fistula there is concern for ongoing infection. Continue empiric Cipro. Qualifiers: Urinary tract infection type: acute cystitis (4) Urinary retention with incomplete bladder emptying: Current visit: No Status: Acute Chronic urinary retention. Has been seen by urology, Dr. Dalton suspects that the inflammation of her colon is contributing to her retention. He does not suspect colovesical fistula as no coliforms were found on urine culture. He recommends continue indwelling catheter for now. (5) Ambulatory dysfunction: Current visit: No Status: Acute Continue PT/OT. (6) Adrenal insufficiency: Current visit: No Status: Acute On stress dose steroids. Steroids were tapered, however, she had increased weakness and they were increased again. Attempt to taper again today. Will need slow taper. Discuss with Rheumatology prior to discharge for recommendations. (7) PMR (polymyalgia rheumatica): Current visit: No Status: Chronic With chronic steroid use. Begin to taper steroids as above. She will need to follow-up with rheumatology upon discharge. (8) Weakness: Current visit: No Status: Acute Improving. Continue steroids and PT/OT as above. (9) Compression fracture of body of thoracic vertebra: Current visit: No Status: Acute Pain controlled at present. Continue home regimen for pain control. Heat for comfort. May use brace for comfort. (10) Anemia: Current visit: No Status: Acute Chronic, stable. Continues to have IV fluids running. Remains on home dose of Iron. Continue to monitor. Qualifiers: Anemia type: iron deficiency Iron deficiency anemia type: other iron deficiency Qualified Code(s): D50.8 - Other iron deficiency anemias (11) Latent tuberculosis: Current visit: No Status: Acute Continue isoniazid. (12) Hypokalemia: Current visit: Yes Status: Acute General surgery restarted oral potassium today. Continue to monitor. (13) DVT prophylaxis: Current visit: No Status: Acute Subcutaneous heparin. (14) Discharge planning issues: Current visit: No Status: Acute She is a DNR/DNI. She has been accepted to [facility] on colorectal surgery service, she is waiting for a bed at this time. This case was discussed with Dr. Rosario who is in agreement. Subjective Interval history since last seen: Mrs Manuel reports feeling better knowing what the plan will be for her. Colorectal surgery at [facility] has accepted her in transfer, she is currently awaiting a bed. She continues to have abdominal pain across her abdomen. She denies nausea at present. She reports that her energy level is OK, she has been ambulating in the halls. She continues to reports stool leaking from her vagina. She denies shortness of breath, coughing, wheezing, chest pain/pressure, palpitations, she continues to have a fajardo. She remains afebrile, no leukocytosis, vital signs are stable. Exam Narrative Exam Narrative: General: Pleasant elderly female, sitting up at the edge of the bed, appears comfortable, in no acute distress. Neck: Supple, no JVD. HEENT: Normocephalic, atraumatic. Pupils equal and round, extraocular movements intact, mucous membranes moist, lesion to bottom lip, right-side, no active drainage. Heart: Regular rate and rhythm, no murmur appreciated. Lungs: Respirations even and unlabored, lung sounds clear to auscultation bilaterally. GI: abdomen is soft, diffuse tenderness on palpation today, +bowel sounds throughout. : fajardo draining clear yellow urine, no feces noted. Extremities: trace edema to bilateral lower extremities, peripheral pulses palpable bilaterally. Objective Objective Clinical Data: Abnormal lab results 10/20/18 10/20/18 Range/Units 06:35 06:35 RBC 3.34 L (4.00-5.20) m/cumm Hgb 9.0 L (12.0-15.5) g/dL Hct 29.5 L (36.0-46.0) % MCH 26.9 L (27.0-33.0) pg MCHC 30.5 L (32.0-36.0) g/dL RDW 19.4 H (11.7-14.6) % Potassium 3.3 L (3.5-5.1) mmol/L Creatinine 0.53 L (0.55-1.02) mg/dL Glucose 132 H (70-100) mg/dL Calcium 7.3 L (8.5-10.1) mg/dL Phosphorus 1.9 L (2.6-4.7) mg/dL Vital Signs Temperature 36.5 C 10/20/18 11:27 Temperature Source Tympanic 10/20/18 11:27 Pulse 66 10/20/18 11:27 Pulse Rhythm Regular 10/20/18 11:41 Pulse Strength Normal 10/12/18 09:39 Respiratory Rate 20 10/20/18 11:27 Respiratory Effort 10/20/18 11:41 Respiratory Depth Normal 10/20/18 11:41 Respiratory Pattern Normal 10/20/18 11:41 Blood Pressure 139/71 10/20/18 11:27 Blood Pressure Mean 80 10/12/18 09:39 Pulse Oximetry 97 10/20/18 11:27 Oxygen Delivery Method Room Air 10/20/18 11:27 Oxygen Flow Rate 0 10/20/18 11:27 Pain Level 0 10/20/18 11:27 Comment 10/19/18 23:05 Intake & Output 10/19/18 10/20/18 10/20/18 23:59 11:59 23:59 Intake Total 1925 / 3621 1236 / 1436 200 / 1436 Output Total 3000 / 5650 115 / 2049 / 2049 Balance -107 / -2028 86 / -614 -700 / -614 Weight 74.8 kg Intake: IV 1895 / 3561 1236 / 1436 200 / 1436 Oral 30 / 60 Output: Urine 3000 / 5650 1152049 / 2049 Other: Urine Color Yellow Yellow Yellow Urine Appearance Clear Clear Urine Odor Normal Stool Size Small Small Moderate Stool Characteristics Soft Soft Soft Brown Brown Voiding Methods Indwelling Catheter Laboratory Results WBC 8.36 k/cumm (4.4-10.8) 10/20/18 06:35 RBC 3.34 m/cumm (4.00-5.20) L 10/20/18 06:35 Hgb 9.0 g/dL (12.0-15.5) L 10/20/18 06:35 Hct 29.5 % (36.0-46.0) L 10/20/18 06:35 MCV 88.3 fL (80-95) 10/20/18 06:35 MCH 26.9 pg (27.0-33.0) L 10/20/18 06:35 MCHC 30.5 g/dL (32.0-36.0) L 10/20/18 06:35 RDW 19.4 % (11.7-14.6) H 10/20/18 06:35 Plt Count 327 x1000/uL (130-400) 10/20/18 06:35 MPV 9.8 fL (8.0-11.0) 10/20/18 06:35 Immature Gran % See Differential 10/15/18 08:05 Neutrophils % 66.0 10/15/18 08:05 Lymphocytes % 17.0 10/15/18 08:05 Atypical Lymphs % 1 10/15/18 08:05 Monocytes % 11.0 10/15/18 08:05 Eosinophils % 2.0 10/15/18 08:05 Basophils % 0.0 10/15/18 08:05 Myelocytes % 3.0 % 10/15/18 08:05 Absolute Neutrophils 3.97 k/cumm (1.2-6.7) 10/15/18 08:05 Absolute Lymphocytes 1.08 k/cumm (1.2-3.4) L 10/15/18 08:05 Absolute Monocytes 0.66 k/cumm (0.11-0.7) 10/15/18 08:05 Absolute Eosinophils 0.12 k/cumm (0.0-0.7) 10/15/18 08:05 Absolute Basophils 0.00 k/cumm (0.0-0.2) 10/15/18 08:05 Differential Comment Manual differential 10/15/18 08:05 RBC Morphology See below 10/15/18 08:05 Polychromasia Present 10/15/18 08:05 Poikilocytosis 2+ 10/15/18 08:05 Anisocytosis 2+ 10/15/18 08:05 PT 12.0 sec (9.3-11.0) H 10/18/18 07:11 INR 1.2 (0.9-1.1) H 10/18/18 07:11 Sodium 139 mmol/L (136-145) 10/20/18 06:35 Potassium 3.3 mmol/L (3.5-5.1) L 10/20/18 06:35 Chloride 105 mmol/L (98-107) 10/20/18 06:35 Carbon Dioxide 27.0 mmol/L (21.0-32.0) 10/20/18 06:35 Anion Gap 7.0 mmol/L (3-11) 10/20/18 06:35 BUN 15 mg/dL (7-18) 10/20/18 06:35 Creatinine 0.53 mg/dL (0.55-1.02) L 10/20/18 06:35 Estimated GFR/1.73 m2 >= 60.00 (mL/min/1.73m2) 10/20/18 06:35 Glucose 132 mg/dL (70-100) H 10/20/18 06:35 Calcium 7.3 mg/dL (8.5-10.1) L 10/20/18 06:35 Phosphorus 1.9 mg/dL (2.6-4.7) L 10/20/18 06:35 Magnesium 1.8 mg/dL (1.8-2.4) 10/20/18 06:35 Total Bilirubin 0.1 mg/dL (0.2-1.0) L 10/18/18 06:25 AST 13 U/L (15-37) L 10/18/18 06:25 ALT 13 U/L (12-78) 10/18/18 06:25 Alkaline Phosphatase 68 U/L (46-116) 10/18/18 06:25 Troponin I < 0.02 ng/mL (0.00-0.06) 10/12/18 06:09 C-Reactive Protein 5.35 mg/dL (0.0-0.3) H 10/14/18 06:45 Total Protein 6.0 g/dL (6.4-8.2) L 10/18/18 06:25 Albumin 2.2 g/dL (3.4-5.0) L 10/18/18 06:25 Prealbumin 7 mg/dL (20-40) L 10/15/18 08:05 Lipase 38 U/L (73-393) L 10/12/18 06:09 Urine Color Cancelled 10/12/18 06:14 Urine Clarity Cancelled 10/12/18 06:14 Urine pH Cancelled 10/12/18 06:14 Ur Specific [place] Cancelled 10/12/18 06:14 Urine Protein Cancelled 10/12/18 06:14 Urine Ketones Cancelled 10/12/18 06:14 Urine Blood Cancelled 10/12/18 06:14 Urine Nitrite Cancelled 10/12/18 06:14 Urine Bilirubin Cancelled 10/12/18 06:14 Urine Urobilinogen Cancelled 10/12/18 06:14 Ur Leukocyte Esterase Cancelled 10/12/18 06:14 Urine Glucose Cancelled 10/12/18 06:14 Stl C.difficile Tox PCR Cancelled 10/12/18 19:00 C.difficile Tox Source Cancelled 10/12/18 19:00
--- NOTE | 2018-10-20 15:21 | PTTR_ITS ---
Date of service: 10/20/18 Time of Service: 15:17 PT Notes Inpatient Physical Therapy Treatment Note [facility] Date: 10/20/18 PRECAUTIONS: Fall SUBJECTIVE: Is pleasant and interaction, stating she feels pretty good today, and is agreeable to participating in PT. OBJECTIVE: PAIN: No complaints of pain. BED MOBILITY/TRANSFERS Supine-sit: I Sit-stand: S Stand-sit: S GAIT Assistive Device: 4 WW Weight bearing: Full Assist: S Distance: 200' in a.m.; 300' in p.m. Deviation: No shuffling gait noted THEREX: Patient completed a standing lower extremity strengthening program, as per flow sheet. Patient also performed functional sit?to?stand exercise. ASSESSMENT: Patient tolerated session well, without complaint. Patient was able to tolerate a slight progression in gait distance with 4 WW support and supervision. Patient would benefit from continued conditioning for improved activity tolerance. PLAN: Continue with PTs POC TREATMENT CODE/TIME: Session 1: 15 minutes; 10129 Session 2: 25 minutes; [id number], [id number]
[2018-10-20 15:46] VITALS: BP 148/72; PULSE 74; RESP 18; TEMP 37; O2SAT 98
--- NOTE | 2018-10-20 18:08 | NUR.NOTE ---
Nursing Note: staff reminded to provide extra good skin care in regards to the amount of stool patient is passing through the av fistula into the vaginal area, skin inside the folds is bright red and at risk for further breakdown
[2018-10-20] MEDS: Patch Removal 1 EACH TP (19:55)
[2018-10-20 20:29] VITALS: BP 128/58; PULSE 72; RESP 18; TEMP 36.4; O2SAT 95
[2018-10-20] MEDS: Zolpidem 5 MG TAB PO (21:19)
[2018-10-20] MEDS: Melatonin 3 MG TAB 6 MG PO (21:19)
[2018-10-21] MEDS: LORazepam 2 MG/ML VIAL 0.5 MG IVP (02:52)
[2018-10-21] MEDS: Normal Saline Flush 10 ML SYR IVP ×9 (02:53→22:46)
[2018-10-21] MEDS: Hydrocortisone SOD SUC. 100 MG VIAL 50 MG IVP ×2 (03:32→16:32)
[2018-10-21] MEDS: metroNIDAZOLE 500 MG/100 ML BAG 100 MG IVPB ×3 (03:33→20:05)
[2018-10-21 03:59] VITALS: BP 169/71; PULSE 70; RESP 18; TEMP 36.7; O2SAT 97
[2018-10-21] MEDS: Levothyroxine 125 MCG TAB PO (05:11)
[2018-10-21 07:25] VITALS: BP 148/74; PULSE 72; RESP 18; TEMP 36.4; O2SAT 96
[2018-10-21 07:35] LABS: HCT 31.6 % (36.0-46.0); HGB 9.8 g/dL (12.0-15.5); Mean Corpuscular Hemoglobin 27.4 pg (27.0-33.0); Mean Corpuscular Volume 88.3 fL (80-95); Mean Platelet Volume 10.1 fL (8.0-11.0); Platelet Count 322 x1000/uL (130-400); RBC 3.58 m/cumm (4.00-5.20); RBC Distribution Width 19.8 % (11.7-14.6); White Blood Cell Count 10.62 k/cumm (4.4-10.8)
[2018-10-21 07:48] LABS: Anion Gap 6.6 mmol/L (3-11); BUN 16 mg/dL (7-18); CO2 28.4 mmol/L (21.0-32.0); CREATININE 0.48 mg/dL (0.55-1.02); Calcium 7.6 mg/dL (8.5-10.1); Chloride 105 mmol/L (98-107); Glucose 123 mg/dL (70-100); Magnesium 1.8 mg/dL (1.8-2.4); PHOSPHORUS 2.2 mg/dL (2.6-4.7); Potassium 3.9 mmol/L (3.5-5.1); Sodium 140 mmol/L (136-145)
[2018-10-21] MEDS: Heparin 5,000 UNITS/ML VIAL 5000 UNITS SC ×3 (08:21→23:31)
[2018-10-21] MEDS: Pantoprazole 40 MG VIAL IVP ×2 (08:21→20:05)
[2018-10-21] MEDS: Potassium Chloride 20 MEQ TABCR 40 MEQ PO ×2 (08:23→20:04)
[2018-10-21] MEDS: buPROPion-XL 150 MG TABCR 450 MG PO (08:23)
[2018-10-21] MEDS: Folic Acid 1 MG TAB PO (08:23)
[2018-10-21] MEDS: Furosemide 20 MG TAB PO (08:23)
[2018-10-21] MEDS: Aspirin E.C. 81 MG TABEC PO (08:23)
[2018-10-21] MEDS: Ferrous Gluconate 324 MG TAB PO (08:23)
[2018-10-21] MEDS: Multivitamin TAB 1 TAB PO (08:23)
[2018-10-21] MEDS: Nystatin POWDER 60 GM JAR TP ×2 (08:23→20:07)
[2018-10-21] MEDS: Nystatin CREAM 15 GM TUBE TP ×2 (08:23→20:07)
[2018-10-21] MEDS: amLODIPine 5 MG TAB PO (08:23)
[2018-10-21] MEDS: Lidocaine 5% Patch 1 PATCH TP (08:24)
[2018-10-21] MEDS: Normal Saline 500 ML 200 ML IV (10:37)
[2018-10-21] MEDS: CIPROFLOXACIN 400 MG/200 ML BAG 200 MG IVPB ×2 (10:37→21:24)
[2018-10-21] MEDS: Insulin Aspart 300 UNITS/3 ML PEN SC ×2 (10:38→21:23)
--- NOTE | 2018-10-21 10:54 | PGE_ITS ---
Date of Service Date of service: 10/21/18 Time of Service: 10:52 Assessment and Plan (1) Rectovaginal fistula: Current visit: No Status: Acute on tpn fajardo no urospesis awaiting for bed avaialblitity- none at [facility] or [facility]. options [place]. pt doesn't want to go there. Pt doesn't want to have surgery here. She wants to wait one more day,,,, >50% of the time spent with the patient today was spent in counseling regarding; medications, lifestyle modifications, wound care and/or coordinating care. 30 mins spent in coordinating care today. Subjective Patient reports: no new complaints Interval history since last seen: still stooling from vagina. no signs of sepsis. pt condition is the same. [facility] still has no beds waiting eval from [facility]. I did d.w Dr. Lazo from colo-rectal. again her treatment would only be diversion- adn prob permanent given her commodities it would be permanent. i d/w pt and what they want to do. currently she is stable adn not septic. the stooling is worse per the pt. pt and would like to wait one more day adn see if a bed b/c available at [facility]. if not- than they would rather go to [place]. care management is seeing if can ride along in ambulance to [place]. adn than try to figure out how we would get her back to [place] when her hospitalization is complete. also d/w pt and that is she b/c septic while she is here- it may force us to operate here at [facility]. Pt understands that the longer she waits she risks b/c septic. although she has been very stable this admission. pt does not want to have surgery at [facility] Exam Const General: cooperative, healthy appearing, comfortable, no acute distress, well developed and well groomed Nutritional Appearance: average body habitus and well nourished Orientation: alert, awake and oriented x3 HENMT Head: normal to inspection, normocephalic and atraumatic Ears: hearing grossly normal bilaterally and external ears normal General nose exam: external nose normal Face and sinus: normal facial exam and sinuses nontender Mouth: oral mucosae normal, lip normal, tongue normal and moist mucous membranes Teeth and gingiva: dentition normal Eyes General: appearance normal, both eyes and all related structures Conjunctivae: conjunctivae normal Sclera: sclerae normal Pupils: PERRL Neck Neck: normal visual inspection and full ROM Chest Chest: normal inspection of the chest Resp Effort & Inspection: normal respiratory effort, able to speak in complete sentences, no cough, no nasal flaring, not tachypneic and no use of accessory muscles Auscultation: clear to auscultation bilaterally, no rales, no rhonchi and no wheezes Cardio Jugular venous pressure: no JVD Rate: regular rate Rhythm: regular rhythm GI Inspection: normal to inspection, no edema and non-distended Palpation: soft, no masses, nontender and No ascites Auscultation: normal bowel sounds Other: exam is not done. pt has catheter in. urine is cl. yellow Skin General skin exam: no rashes or lesions noted Trauma: no lacerations or abrasions Other: intact. PICC site is c/d/i. no swelling. or redness no breakdown Neuro General: alert, oriented x3, oriented, gait normal, moves all extremities, no focal motor deficits and CN's II-XI intact bilaterally Cognition: normal cognition Speech: speech normal Extrem General: normal to inspection, full ROM and no clubbing, cyanosis or edema Psych Appearance: grossly normal and well kempt Mental Status: mental status grossly normal Speech and Movement: speech and movement normal Affect: normal affect Objective Objective Clinical Data: Abnormal lab results 10/21/18 10/21/18 Range/Units 06:35 06:35 RBC 3.58 L (4.00-5.20) m/cumm Hgb 9.8 L (12.0-15.5) g/dL Hct 31.6 L (36.0-46.0) % MCHC 31.0 L (32.0-36.0) g/dL RDW 19.8 H (11.7-14.6) % Creatinine 0.48 L (0.55-1.02) mg/dL Glucose 123 H (70-100) mg/dL Calcium 7.6 L (8.5-10.1) mg/dL Phosphorus 2.2 L (2.6-4.7) mg/dL Vital Signs Temperature 36.4 C L 10/21/18 07:25 Temperature Source Tympanic 10/21/18 07:25 Pulse 72 10/21/18 07:25 Pulse Rhythm Regular 10/21/18 07:16 Pulse Strength Normal 10/12/18 09:39 Respiratory Rate 18 10/21/18 07:25 Respiratory Effort Non-Labored 10/21/18 07:16 Respiratory Depth Normal 10/21/18 07:16 Respiratory Pattern Normal 10/21/18 07:16 Blood Pressure 148/74 H 10/21/18 07:25 Blood Pressure Mean 80 10/12/18 09:39 Pulse Oximetry 96 10/21/18 07:25 Oxygen Delivery Method Room Air 10/21/18 07:25 Oxygen Flow Rate 0 10/21/18 07:25 Pain Level 0 10/21/18 07:25 Comment 10/19/18 23:05 Intake & Output 10/20/18 10/20/18 10/21/18 11:59 23:59 11:59 Intake Total 1240.688 / 3012.855 1772.167 / 3012.855 2306 / 2306 Output Total 1150 / 3000 1850 / 3000 2300 / 2300 Balance 90.688 / 12.855 -77.833 / 12.855 6 / 6 Weight 74.8 kg 76.8 kg Intake: IV 1240.688 / 2772.855 1532.167 / 2772.855 1036 / 1036 Oral 240 / 240 1270 / 1270 Output: Urine 1150 / 3000 1850 / 3000 2300 / 2300 Other: Urine Color Yellow Yellow Yellow Urine Appearance Clear Clear Clear Stool Size Small Moderate Moderate Stool Characteristics Soft Soft Soft Brown Formed Brown Laboratory Results WBC 10.62 k/cumm (4.4-10.8) 10/21/18 06:35 RBC 3.58 m/cumm (4.00-5.20) L 10/21/18 06:35 Hgb 9.8 g/dL (12.0-15.5) L 10/21/18 06:35 Hct 31.6 % (36.0-46.0) L 10/21/18 06:35 MCV 88.3 fL (80-95) 10/21/18 06:35 MCH 27.4 pg (27.0-33.0) 10/21/18 06:35 MCHC 31.0 g/dL (32.0-36.0) L 10/21/18 06:35 RDW 19.8 % (11.7-14.6) H 10/21/18 06:35 Plt Count 322 x1000/uL (130-400) 10/21/18 06:35 MPV 10.1 fL (8.0-11.0) 10/21/18 06:35 Immature Gran % See Differential 10/15/18 08:05 Neutrophils % 66.0 10/15/18 08:05 Lymphocytes % 17.0 10/15/18 08:05 Atypical Lymphs % 1 10/15/18 08:05 Monocytes % 11.0 10/15/18 08:05 Eosinophils % 2.0 10/15/18 08:05 Basophils % 0.0 10/15/18 08:05 Myelocytes % 3.0 % 10/15/18 08:05 Absolute Neutrophils 3.97 k/cumm (1.2-6.7) 10/15/18 08:05 Absolute Lymphocytes 1.08 k/cumm (1.2-3.4) L 10/15/18 08:05 Absolute Monocytes 0.66 k/cumm (0.11-0.7) 10/15/18 08:05 Absolute Eosinophils 0.12 k/cumm (0.0-0.7) 10/15/18 08:05 Absolute Basophils 0.00 k/cumm (0.0-0.2) 10/15/18 08:05 Differential Comment Manual differential 10/15/18 08:05 RBC Morphology See below 10/15/18 08:05 Polychromasia Present 10/15/18 08:05 Poikilocytosis 2+ 10/15/18 08:05 Anisocytosis 2+ 10/15/18 08:05 PT 12.0 sec (9.3-11.0) H 10/18/18 07:11 INR 1.2 (0.9-1.1) H 10/18/18 07:11 Sodium 140 mmol/L (136-145) 10/21/18 06:35 Potassium 3.9 mmol/L (3.5-5.1) 10/21/18 06:35 Chloride 105 mmol/L (98-107) 10/21/18 06:35 Carbon Dioxide 28.4 mmol/L (21.0-32.0) 10/21/18 06:35 Anion Gap 6.6 mmol/L (3-11) 10/21/18 06:35 BUN 16 mg/dL (7-18) 10/21/18 06:35 Creatinine 0.48 mg/dL (0.55-1.02) L 10/21/18 06:35 Estimated GFR/1.73 m2 >= 60.00 (mL/min/1.73m2) 10/21/18 06:35 Glucose 123 mg/dL (70-100) H 10/21/18 06:35 Calcium 7.6 mg/dL (8.5-10.1) L 10/21/18 06:35 Phosphorus 2.2 mg/dL (2.6-4.7) L 10/21/18 06:35 Magnesium 1.8 mg/dL (1.8-2.4) 10/21/18 06:35 Total Bilirubin 0.1 mg/dL (0.2-1.0) L 10/18/18 06:25 AST 13 U/L (15-37) L 10/18/18 06:25 ALT 13 U/L (12-78) 10/18/18 06:25 Alkaline Phosphatase 68 U/L (46-116) 10/18/18 06:25 Troponin I < 0.02 ng/mL (0.00-0.06) 10/12/18 06:09 C-Reactive Protein 5.35 mg/dL (0.0-0.3) H 10/14/18 06:45 Total Protein 6.0 g/dL (6.4-8.2) L 10/18/18 06:25 Albumin 2.2 g/dL (3.4-5.0) L 10/18/18 06:25 Prealbumin 7 mg/dL (20-40) L 10/15/18 08:05 Lipase 38 U/L (73-393) L 10/12/18 06:09 Urine Color Cancelled 10/12/18 06:14 Urine Clarity Cancelled 10/12/18 06:14 Urine pH Cancelled 10/12/18 06:14 Ur Specific [place] Cancelled 10/12/18 06:14 Urine Protein Cancelled 10/12/18 06:14 Urine Ketones Cancelled 10/12/18 06:14 Urine Blood Cancelled 10/12/18 06:14 Urine Nitrite Cancelled 10/12/18 06:14 Urine Bilirubin Cancelled 10/12/18 06:14 Urine Urobilinogen Cancelled 10/12/18 06:14 Ur Leukocyte Esterase Cancelled 10/12/18 06:14 Urine Glucose Cancelled 10/12/18 06:14 Stl C.difficile Tox PCR Cancelled 10/12/18 19:00 C.difficile Tox Source Cancelled 10/12/18 19:00
[2018-10-21 11:30] VITALS: BP 137/70; PULSE 91; RESP 18; TEMP 36.2; O2SAT 97
--- NOTE | 2018-10-21 11:54 | PDOC.CMPRO ---
- If Service Date Differs Date of service: 10/21/18 Time of Service: 11:54 Care Management Progress Note S/O: Amanda was sitting on the side of the bed during CM visit, and was in good spirits. She continues to receive IV antibiotics and TPN through a PICC line. She is ambulating with PT and doing well. She is looking forward to having surgery so the fistula can be fixed. Both [facility] and [facility] have stated that they are unable to accept Amanda as a patient due to capacity. Dr. Kent is pursuing a transfer for her to [place] or [place]. [facility] may accept her. Spoke with Arun at [facility] and he confirmed that Ed, Amanda's , will be able to ride in the ambulance with Pat to [place]. 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 P:Pat remains on IV antibiotics and TPN. She continues to receive PT. Anticipate possible transfer to tertiary center pending surgeon determination and bed availability. Transportation to be coordinated by Nursing Voice Instructor at time of discharge. Arun at [facility] has confirmed that Ed, Amanda's , can ride in the ambulance with her to the hospital.
--- NOTE | 2018-10-21 12:02 | CMPROGNOTE_ITS ---
- If Service Date Differs Date of service: 10/21/18 Time of Service: 11:54 Care Management Progress Note S/O: Amanda was sitting on the side of the bed during CM visit, and was in good spirits. She continues to receive IV antibiotics and TPN through a PICC line. She is ambulating with PT and doing well. She is looking forward to having surgery so the fistula can be fixed. Both [facility] and [facility] have stated that they are unable to accept Amanda as a patient due to capacity. Dr. Kent is pursuing a transfer for her to [place] or [place]. [facility] may accept her. Spoke with Arun at [facility] and he confirmed that Ed, Amanda's , will be able to ride in the ambulance with Pat to [place]. 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 P:Pat remains on IV antibiotics and TPN. She continues to receive PT. Anticipate possible transfer to tertiary center pending surgeon determination and bed availability. Transportation to be coordinated by Nursing Blasting Machine Operator at time of discharge. Arun at [facility] has confirmed that Ed, Amanda's , can ride in the ambulance with her to the hospital.
--- NOTE | 2018-10-21 12:23 | W.PM.PROGNOT ---
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 She is on Surgical service with hospitalist consult. Bowel rest with TPN per surgical recommendations. She is tolerating sips of water with no increased pain. She has been accepted to [facility] and is awaiting bed availability. Surgery will transfer when a bed becomes available. (2) Colitis: Current visit: No Status: Acute Afebrile, no leukocytosis. Inflammation noted at site of anastomosis on CT scan. Surgery following. Continue Cipro and Flagyl. Hospitalist service to continue to follow along. (3) UTI (urinary tract infection): Current visit: No Status: Resolved Present on admission. Culture collected 10/11/18 grew greater than 100,000 colonies of gram-positive kareem, mixed. Has Fajardo in place. With fistula there is concern for ongoing infection. Continue empiric Cipro. Qualifiers: Urinary tract infection type: acute cystitis (4) Urinary retention with incomplete bladder emptying: Current visit: No Status: Acute Chronic urinary retention. Has been seen by urology, Dr. Dalton suspects that the inflammation of her colon is contributing to her retention. He does not suspect colovesical fistula as no coliforms were found on urine culture. He recommends continue indwelling catheter for now. (5) Ambulatory dysfunction: Current visit: No Status: Acute Continue PT/OT. (6) Adrenal insufficiency: Current visit: No Status: Acute On stress dose steroids. She did not tolerate first attempt at tapering steroids. Steroids decreased again yesterday, she appears to be tolerating thus far. Will need slow taper. Discuss with Rheumatology prior to discharge for recommendations. (7) PMR (polymyalgia rheumatica): Current visit: No Status: Chronic With chronic steroid use. Begin to taper steroids as above. She will need to follow-up with rheumatology upon discharge. (8) Weakness: Current visit: No Status: Acute Improved. Continue steroids and PT/OT as above. (9) Compression fracture of body of thoracic vertebra: Current visit: No Status: Acute Pain controlled at present. Continue home regimen for pain control. Heat for comfort. May use brace for comfort. (10) Anemia: Current visit: No Status: Acute Chronic, stable. Continues to have IV fluids running. Remains on home dose of Iron. Continue to monitor. Qualifiers: Anemia type: iron deficiency Iron deficiency anemia type: other iron deficiency Qualified Code(s): D50.8 - Other iron deficiency anemias (11) Latent tuberculosis: Current visit: No Status: Acute Continue isoniazid. (12) Hypokalemia: Current visit: Yes Status: Acute Improved with restarting home potassium. Continue to monitor. (13) DVT prophylaxis: Current visit: No Status: Acute Subcutaneous heparin. (14) Discharge planning issues: Current visit: No Status: Acute She is a DNR/DNI. She has been accepted to [facility] on colorectal surgery service, she is waiting for a bed at this time. This case was discussed with Dr. Rosario who is in agreement. Subjective Interval history since last seen: Riddhi continues to await a bed at [facility], she has been accepted by colorectal surgery. She continues to have stool from her vagina, she denies abdominal pain today, no nausea. Her back pain is increased today. She reports a good energy level even with the steroids being tapered yesterday. She denies shortness of breath, coughing, wheezing, chest pain/pressure, palpitations, she continues to have a fajardo. She remains afebrile, no leukocytosis, vital signs are stable. She is looking forward to transfer to [facility] for intervention. Exam Narrative Exam Narrative: General: Pleasant elderly female, sitting up in bed, appears comfortable, in no acute distress. Neck: Supple, no JVD. HEENT: Normocephalic, atraumatic. Pupils equal and round, extraocular movements intact, mucous membranes moist, lesion to bottom lip, right-side, no active drainage. Heart: Regular rate and rhythm, no murmur appreciated. Lungs: Respirations even and unlabored, lung sounds clear to auscultation bilaterally. GI: abdomen is soft, diffuse tenderness on palpation today, +bowel sounds throughout. : fajardo draining clear yellow urine, no feces noted. Extremities: trace edema to bilateral lower extremities, nonpitting, peripheral pulses palpable bilaterally. Objective Objective Clinical Data: Abnormal lab results 10/21/18 10/21/18 Range/Units 06:35 06:35 RBC 3.58 L (4.00-5.20) m/cumm Hgb 9.8 L (12.0-15.5) g/dL Hct 31.6 L (36.0-46.0) % MCHC 31.0 L (32.0-36.0) g/dL RDW 19.8 H (11.7-14.6) % Creatinine 0.48 L (0.55-1.02) mg/dL Glucose 123 H (70-100) mg/dL Calcium 7.6 L (8.5-10.1) mg/dL Phosphorus 2.2 L (2.6-4.7) mg/dL Vital Signs Temperature 36.4 C L 10/21/18 07:25 Temperature Source Tympanic 10/21/18 07:25 Pulse 72 10/21/18 07:25 Pulse Rhythm Regular 10/21/18 07:16 Pulse Strength Normal 10/12/18 09:39 Respiratory Rate 18 10/21/18 07:25 Respiratory Effort Non-Labored 10/21/18 07:16 Respiratory Depth Normal 10/21/18 07:16 Respiratory Pattern Normal 10/21/18 07:16 Blood Pressure 148/74 H 10/21/18 07:25 Blood Pressure Mean 80 10/12/18 09:39 Pulse Oximetry 96 10/21/18 07:25 Oxygen Delivery Method Room Air 10/21/18 07:25 Oxygen Flow Rate 0 10/21/18 07:25 Pain Level 0 10/21/18 07:25 Comment 10/19/18 23:05 Intake & Output 10/20/18 10/21/18 10/21/18 23:59 11:59 23:59 Intake Total 1772.167 / 3012.855 2616.000 / 2616.000 Output Total 1850 / 3000 2300 / 2300 Balance -77.833 / 12.855 316.000 / 316.000 Weight 76.8 kg Intake: IV 1532.167 / 2772.855 1346.000 / 1346.000 Oral 240 / 240 1270 / 1270 Output: Urine 1850 / 3000 2300 / 2300 Other: Urine Color Yellow Yellow Urine Appearance Clear Clear Stool Size Moderate Moderate Stool Characteristics Soft Soft Brown Formed Brown Laboratory Results WBC 10.62 k/cumm (4.4-10.8) 10/21/18 06:35 RBC 3.58 m/cumm (4.00-5.20) L 10/21/18 06:35 Hgb 9.8 g/dL (12.0-15.5) L 10/21/18 06:35 Hct 31.6 % (36.0-46.0) L 10/21/18 06:35 MCV 88.3 fL (80-95) 10/21/18 06:35 MCH 27.4 pg (27.0-33.0) 10/21/18 06:35 MCHC 31.0 g/dL (32.0-36.0) L 10/21/18 06:35 RDW 19.8 % (11.7-14.6) H 10/21/18 06:35 Plt Count 322 x1000/uL (130-400) 10/21/18 06:35 MPV 10.1 fL (8.0-11.0) 10/21/18 06:35 Immature Gran % See Differential 10/15/18 08:05 Neutrophils % 66.0 10/15/18 08:05 Lymphocytes % 17.0 10/15/18 08:05 Atypical Lymphs % 1 10/15/18 08:05 Monocytes % 11.0 10/15/18 08:05 Eosinophils % 2.0 10/15/18 08:05 Basophils % 0.0 10/15/18 08:05 Myelocytes % 3.0 % 10/15/18 08:05 Absolute Neutrophils 3.97 k/cumm (1.2-6.7) 10/15/18 08:05 Absolute Lymphocytes 1.08 k/cumm (1.2-3.4) L 10/15/18 08:05 Absolute Monocytes 0.66 k/cumm (0.11-0.7) 10/15/18 08:05 Absolute Eosinophils 0.12 k/cumm (0.0-0.7) 10/15/18 08:05 Absolute Basophils 0.00 k/cumm (0.0-0.2) 10/15/18 08:05 Differential Comment Manual differential 10/15/18 08:05 RBC Morphology See below 10/15/18 08:05 Polychromasia Present 10/15/18 08:05 Poikilocytosis 2+ 10/15/18 08:05 Anisocytosis 2+ 10/15/18 08:05 PT 12.0 sec (9.3-11.0) H 10/18/18 07:11 INR 1.2 (0.9-1.1) H 10/18/18 07:11 Sodium 140 mmol/L (136-145) 10/21/18 06:35 Potassium 3.9 mmol/L (3.5-5.1) 10/21/18 06:35 Chloride 105 mmol/L (98-107) 10/21/18 06:35 Carbon Dioxide 28.4 mmol/L (21.0-32.0) 10/21/18 06:35 Anion Gap 6.6 mmol/L (3-11) 10/21/18 06:35 BUN 16 mg/dL (7-18) 10/21/18 06:35 Creatinine 0.48 mg/dL (0.55-1.02) L 10/21/18 06:35 Estimated GFR/1.73 m2 >= 60.00 (mL/min/1.73m2) 10/21/18 06:35 Glucose 123 mg/dL (70-100) H 10/21/18 06:35 Calcium 7.6 mg/dL (8.5-10.1) L 10/21/18 06:35 Phosphorus 2.2 mg/dL (2.6-4.7) L 10/21/18 06:35 Magnesium 1.8 mg/dL (1.8-2.4) 10/21/18 06:35 Total Bilirubin 0.1 mg/dL (0.2-1.0) L 10/18/18 06:25 AST 13 U/L (15-37) L 10/18/18 06:25 ALT 13 U/L (12-78) 10/18/18 06:25 Alkaline Phosphatase 68 U/L (46-116) 10/18/18 06:25 Troponin I < 0.02 ng/mL (0.00-0.06) 10/12/18 06:09 C-Reactive Protein 5.35 mg/dL (0.0-0.3) H 10/14/18 06:45 Total Protein 6.0 g/dL (6.4-8.2) L 10/18/18 06:25 Albumin 2.2 g/dL (3.4-5.0) L 10/18/18 06:25 Prealbumin 7 mg/dL (20-40) L 10/15/18 08:05 Lipase 38 U/L (73-393) L 10/12/18 06:09 Urine Color Cancelled 10/12/18 06:14 Urine Clarity Cancelled 10/12/18 06:14 Urine pH Cancelled 10/12/18 06:14 Ur Specific [place] Cancelled 10/12/18 06:14 Urine Protein Cancelled 10/12/18 06:14 Urine Ketones Cancelled 10/12/18 06:14 Urine Blood Cancelled 10/12/18 06:14 Urine Nitrite Cancelled 10/12/18 06:14 Urine Bilirubin Cancelled 10/12/18 06:14 Urine Urobilinogen Cancelled 10/12/18 06:14 Ur Leukocyte Esterase Cancelled 10/12/18 06:14 Urine Glucose Cancelled 10/12/18 06:14 Stl C.difficile Tox PCR Cancelled 10/12/18 19:00 C.difficile Tox Source Cancelled 10/12/18 19:00
--- NOTE | 2018-10-21 13:20 | CHAPLAIN ---
Pat continues to wait for a bed to open up at [facility] to she can be transferred there. She remains pleasant and hopeful. This has been a long ordeal for Pat, beginning with a colonoscopy in June.
[2018-10-21] MEDS: LORazepam 0.5 MG TAB PO (13:48)
--- NOTE | 2018-10-21 15:01 | PT.INTREAT ---
Date of service: 10/21/18 Time of Service: 11:40 PT Notes Inpatient Physical Therapy Treatment Note [facility] Date: 10/21/18 PRECAUTIONS: Fall SUBJECTIVE: Pat states that she is still waiting to hear where she will be transferred to for potential surgery. OBJECTIVE: PAIN: No c/o pain BED MOBILITY/TRANSFERS Supine-sit: I Sit-supine: I Sit-stand: I Stand-sit: I GAIT Assistive Device: 4WW Weight bearing: Full Assist: I Distance: 205' THEREX: Patient completed a LE strengthening program in both seated and standing positions, as per flow sheet. Patient was able to tolerate a progression in ther ex program, modifications made to reps are noted on flow sheet. ASSESSMENT: Patient tolerated session well, with c/o increased fatigue following ther ex. Patient was able to tolerate a progression in ther ex program today. She demonstrates independence with transfers, bed mobility, and gait at this time. PLAN: Continue with PT's POC TREATMENT CODE/TIME: 25 minutes; 18401, [id number]
--- NOTE | 2018-10-21 15:08 | PT.INNT ---
Date of service: 10/21/18 Time of Service: 15:08 PT Notes 10/21/18 Patient refused afternoon PT session, stating I am too upset regarding news she received regarding her transfer to a different hospital. Will attempt to resume PT services tomorrow morning.
[2018-10-21] MEDS: MORPHine 10 MG/ML VIAL 5 MG IVP ×2 (15:09→22:45)
[2018-10-21 15:50] VITALS: BP 136/67; PULSE 82; RESP 20; TEMP 36.4; O2SAT 97
[2018-10-21 20:22] VITALS: BP 156/70; PULSE 84; RESP 19; TEMP 36.6; O2SAT 97
[2018-10-21] MEDS: Patch Removal 1 EACH TP (20:34)
[2018-10-21] MEDS: Zolpidem 5 MG TAB PO (22:19)
[2018-10-21] MEDS: Melatonin 3 MG TAB 6 MG PO (22:19)
[2018-10-22 00:02] VITALS: BP 145/69; PULSE 85; RESP 20; TEMP 36.4; O2SAT 97
[2018-10-22] MEDS: MORPHine 10 MG/ML VIAL 5 MG IVP ×2 (02:24→18:10)
[2018-10-22] MEDS: Normal Saline Flush 10 ML SYR IVP ×6 (02:25→18:22)
[2018-10-22] MEDS: Hydrocortisone SOD SUC. 100 MG VIAL 50 MG IVP (03:39)
[2018-10-22] MEDS: metroNIDAZOLE 500 MG/100 ML BAG 100 MG IVPB ×2 (03:40→11:55)
[2018-10-22 04:30] VITALS: BP 124/69; PULSE 71; RESP 16; TEMP 36.7; O2SAT 97
[2018-10-22] MEDS: LORazepam 0.5 MG TAB PO (05:01)
[2018-10-22] MEDS: Levothyroxine 125 MCG TAB PO (05:01)
[2018-10-22 06:59] LABS: HGB 9.8 g/dL (12.0-15.5); Mean Corp. HGB Concentration 30.6 g/dL (32.0-36.0); Mean Corpuscular Hemoglobin 27.3 pg (27.0-33.0); Mean Corpuscular Volume 89.1 fL (80-95); Mean Platelet Volume 10.1 fL (8.0-11.0); Platelet Count 306 x1000/uL (130-400); RBC 3.59 m/cumm (4.00-5.20); RBC Distribution Width 20.1 % (11.7-14.6); White Blood Cell Count 11.79 k/cumm (4.4-10.8)
[2018-10-22 07:07] LABS: Anion Gap 4.8 mmol/L (3-11); BUN 16 mg/dL (7-18); CO2 29.2 mmol/L (21.0-32.0); Calcium 7.6 mg/dL (8.5-10.1); Chloride 105 mmol/L (98-107); Glucose 133 mg/dL (70-100); Magnesium 1.8 mg/dL (1.8-2.4); Potassium 4.3 mmol/L (3.5-5.1); Sodium 139 mmol/L (136-145)
[2018-10-22 07:30] LABS: ALT 25 U/L (12-78); AST 23 U/L (15-37); Albumin 2.4 g/dL (3.4-5.0); Alkaline Phosphatase 74 U/L (46-116); Anion Gap 6.2 mmol/L (3-11); BUN 16 mg/dL (7-18); Bilirubin, Total 0.2 mg/dL (0.2-1.0); CO2 29.8 mmol/L (21.0-32.0); CREATININE 0.51 mg/dL (0.55-1.02); Calcium 7.8 mg/dL (8.5-10.1); Chloride 104 mmol/L (98-107); Glucose 133 mg/dL (70-100); Potassium 4.3 mmol/L (3.5-5.1); Sodium 140 mmol/L (136-145); Total Protein 6.4 g/dL (6.4-8.2)
[2018-10-22 07:34] LABS: INR 1.1 (0.9-1.1)
[2018-10-22 07:41] LABS: PHOSPHORUS 2.5 mg/dL (2.6-4.7)
[2018-10-22 08:00] VITALS: BP 157/76; PULSE 84; RESP 13; TEMP 36.3; O2SAT 96
[2018-10-22] MEDS: Pantoprazole 40 MG VIAL IVP (08:31)
[2018-10-22] MEDS: Lidocaine 5% Patch 1 PATCH TP (08:32)
[2018-10-22] MEDS: buPROPion-XL 150 MG TABCR 450 MG PO (08:33)
[2018-10-22] MEDS: amLODIPine 5 MG TAB PO (08:34)
[2018-10-22] MEDS: Potassium Chloride 20 MEQ TABCR 40 MEQ PO (08:35)
[2018-10-22] MEDS: Multivitamin TAB 1 TAB PO (08:36)
[2018-10-22] MEDS: Furosemide 20 MG TAB PO (08:36)
[2018-10-22] MEDS: Folic Acid 1 MG TAB PO (08:36)
[2018-10-22] MEDS: Aspirin E.C. 81 MG TABEC PO (08:36)
[2018-10-22] MEDS: Ferrous Gluconate 324 MG TAB PO (08:36)
[2018-10-22] MEDS: CIPROFLOXACIN 400 MG/200 ML BAG 200 MG IVPB (10:09)
[2018-10-22] MEDS: Insulin Aspart 300 UNITS/3 ML PEN SC (10:09)
--- NOTE | 2018-10-22 10:44 | PDOC.CMPRO ---
- If Service Date Differs Date of service: 10/22/18 Time of Service: 10:45 Care Management Progress Note S/O: Amanda was sitting up in bed during CM visit. She expressed disappointment about the need to go out of state for surgery. She is concerned about Ed, her , as he would be unable to drive to [place]. Dr. Kent may try to make a referral to [facility] in addition to [facility]. Both Pat and Ed would much prefer that option. Ed feels he could drive there and they have close friends near [place] that would be able to support both of them. A: Amanda is a 78 year old female admitted with FTT found to have a rectovaginal fistula with a history of PMR and chronic steroid use. P:Amanda remains on IV antibiotics and TPN. She continues to receive PT. Anticipate possible transfer to tertiary center pending surgeon determination and bed availability. Transportation to be coordinated by Nursing Missile Tracking Technician at time of discharge. Arun at [facility] has confirmed that Ed, Amanda's , can ride in the ambulance with her to the hospital.
--- NOTE | 2018-10-22 11:09 | CMPROGNOTE_ITS ---
- If Service Date Differs Date of service: 10/22/18 Time of Service: 10:45 Care Management Progress Note S/O: Amanda was sitting up in bed during CM visit. She expressed disappointment about the need to go out of state for surgery. She is concerned about Ed, her , as he would be unable to drive to [place]. Dr. Kent may try to make a referral to [facility] in addition to [facility]. Both Pat and Ed would much prefer that option. Ed feels he could drive there and they have close friends near [place] that would be able to support both of them. A: Amanda is a 78 year old female admitted with FTT found to have a rectovaginal fistula with a history of PMR and chronic steroid use. P:Amanda remains on IV antibiotics and TPN. She continues to receive PT. Anticipate possible transfer to tertiary center pending surgeon determination and bed availability. Transportation to be coordinated by Nursing Quality Assistant at time of discharge. Arun at [facility] has confirmed that Ed, Amanda's , can ride in the ambulance with her to the hospital.
--- NOTE | 2018-10-22 11:49 | W.PM.PROGNOT ---
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 She is on Surgical service with hospitalist consult. Has been on bowel rest with TPN per surgical recommendations. She is tolerating sips of water with no increased pain. General surgery has attempted to transfer her to a Colorectal surgery service, however, attempts have been unsuccessful. Dr. Kent discussed her case with colorectal surgeons who recommend discharge home with close follow up with Colorectal surgery. Surgery will wean her TPN, trial increasing oral intake, she will transition to oral antibiotics. If she remains stable, she will be discharged home with fajardo with close follow up with Colorectal surgery. (2) Colitis: Current visit: No Status: Acute Afebrile, mild leukocytosis. Inflammation noted at site of anastomosis on CT scan. Surgery following. Continue Cipro and Flagyl. Hospitalist service to continue to follow along. (3) UTI (urinary tract infection): Current visit: No Status: Resolved Present on admission. Culture collected 10/11/18 grew greater than 100,000 colonies of gram-positive kareem, mixed. Has Fajardo in place. With fistula there is concern for ongoing infection. Continue empiric Cipro. Qualifiers: Urinary tract infection type: acute cystitis (4) Urinary retention with incomplete bladder emptying: Current visit: No Status: Acute Chronic urinary retention. Has been seen by urology, Dr. Dalton suspects that the inflammation of her colon is contributing to her retention. He does not suspect colovesical fistula as no coliforms were found on urine culture. He recommends continue indwelling catheter for now. (5) Ambulatory dysfunction: Current visit: No Status: Acute Continue PT/OT. (6) Adrenal insufficiency: Current visit: No Status: Acute On stress dose steroids. She did not tolerate first attempt at tapering steroids. Steroids are slowly being tapered, she appears to be tolerating thus far. Will need slow taper. Transition to oral prednisone today. Discuss with Rheumatology prior to discharge for recommendations. (7) PMR (polymyalgia rheumatica): Current visit: No Status: Chronic With chronic steroid use. Transition to oral steroids as above. She will need to follow-up with rheumatology upon discharge. (8) Weakness: Current visit: No Status: Acute Improved. Continue steroids and PT/OT as above. (9) Compression fracture of body of thoracic vertebra: Current visit: No Status: Acute Pain controlled at present. Continue home regimen for pain control. Heat for comfort. May use brace for comfort. (10) Anemia: Current visit: No Status: Acute Chronic, stable. Continues to have IV fluids running. Remains on home dose of Iron. Continue to monitor. Qualifiers: Anemia type: iron deficiency Iron deficiency anemia type: other iron deficiency Qualified Code(s): D50.8 - Other iron deficiency anemias (11) Latent tuberculosis: Current visit: No Status: Acute Continue isoniazid. (12) Hypokalemia: Current visit: Yes Status: Acute Continue oral potassium. Continue to monitor. (13) DVT prophylaxis: Current visit: No Status: Acute Subcutaneous lovenox. (14) Discharge planning issues: Current visit: No Status: Acute She is a DNR/DNI. Disposition per general surgery. This case was discussed with Dr. Rosario who is in agreement. Subjective Interval history since last seen: Riddhi feels somewhat discouraged today. She has not been accepted in transfer to a facility with colorectal surgery yet. She has mid abdominal pain today, she continues to have stool leakage from her vagina. Her back pain is well controlled. She did not notice a decreased energy level with steroid taper. She did not sleep well last night. She denies shortness of breath, coughing, wheezing, chest pain/pressure, palpitations, she continues to have a fajardo. She has mild leukocytosis today. She remains afebrile, her vital signs are stable. Exam Narrative Exam Narrative: General: Pleasant elderly female, sitting up in bed, appears comfortable, in no acute distress. Neck: Supple, no JVD. HEENT: Normocephalic, atraumatic. Pupils equal and round, extraocular movements intact, mucous membranes moist, lesion to bottom lip, right-side, healing, no active drainage. Heart: Regular rate and rhythm, no murmur appreciated. Lungs: Respirations even and unlabored, lung sounds clear to auscultation bilaterally. GI: abdomen is soft, diffuse tenderness on palpation, +bowel sounds throughout. : fajardo draining clear yellow urine, no feces noted. Extremities: trace edema to bilateral lower extremities, nonpitting, peripheral pulses palpable bilaterally. Objective Objective Clinical Data: Abnormal lab results 10/22/18 10/22/18 10/22/18 Range/Units 06:30 06:30 06:50 WBC 11.79 H (4.4-10.8) k/cumm RBC 3.59 L (4.00-5.20) m/cumm Hgb 9.8 L (12.0-15.5) g/dL Hct 32.0 L (36.0-46.0) % MCHC 30.6 L (32.0-36.0) g/dL RDW 20.1 H (11.7-14.6) % Creatinine 0.50 L 0.51 L (0.55-1.02) mg/dL Glucose 133 H 133 H (70-100) mg/dL Calcium 7.6 L 7.8 L (8.5-10.1) mg/dL Phosphorus 2.5 L (2.6-4.7) mg/dL Albumin 2.4 L (3.4-5.0) g/dL Vital Signs Temperature 36.3 C L 10/22/18 08:00 Temperature Source Tympanic 10/22/18 08:00 Pulse 84 10/22/18 08:00 Pulse Rhythm Regular 10/22/18 09:52 Pulse Strength Normal 10/12/18 09:39 Respiratory Rate 13 10/22/18 08:00 Respiratory Effort 10/22/18 09:52 Respiratory Depth Normal 10/22/18 09:52 Respiratory Pattern Normal 10/21/18 20:49 Blood Pressure 157/76 H 10/22/18 08:00 Blood Pressure Mean 80 10/12/18 09:39 Pulse Oximetry 96 10/22/18 08:00 Oxygen Delivery Method Room Air 10/22/18 08:00 Oxygen Flow Rate 0 10/22/18 08:00 Pain Level 0 10/22/18 08:00 Comment 10/22/18 08:00 Intake & Output 10/21/18 10/21/18 10/22/18 11:59 23:59 11:59 Intake Total 2636.000 / 5131.000 2495 / 5131.000 100 / 100 Output Total 2300 / 3875 1575 / 3875 1100 / 1100 Balance 336.000 / 1256.000 920 / 1256.000 -1000 / -1000 Weight 76.8 kg 76.9 kg Intake: IV 1366.000 / 3141.000 1775 / 3141.000 Oral 1269 / 1989 720 / 1989 100 / 100 Output: Urine 2300 / 3875 1575 / 3875 1100 / 1100 Other: Urine Color Yellow Yellow Yellow Urine Appearance Clear Clear Clear Stool Size Moderate Small Small Stool Characteristics Soft Liquid Formed Formed Brown Brown Laboratory Results WBC 11.79 k/cumm (4.4-10.8) H 10/22/18 06:30 RBC 3.59 m/cumm (4.00-5.20) L 10/22/18 06:30 Hgb 9.8 g/dL (12.0-15.5) L 10/22/18 06:30 Hct 32.0 % (36.0-46.0) L 10/22/18 06:30 MCV 89.1 fL (80-95) 10/22/18 06:30 MCH 27.3 pg (27.0-33.0) 10/22/18 06:30 MCHC 30.6 g/dL (32.0-36.0) L 10/22/18 06:30 RDW 20.1 % (11.7-14.6) H 10/22/18 06:30 Plt Count 306 x1000/uL (130-400) 10/22/18 06:30 MPV 10.1 fL (8.0-11.0) 10/22/18 06:30 Immature Gran % See Differential 10/15/18 08:05 Neutrophils % 66.0 10/15/18 08:05 Lymphocytes % 17.0 10/15/18 08:05 Atypical Lymphs % 1 10/15/18 08:05 Monocytes % 11.0 10/15/18 08:05 Eosinophils % 2.0 10/15/18 08:05 Basophils % 0.0 10/15/18 08:05 Myelocytes % 3.0 % 10/15/18 08:05 Absolute Neutrophils 3.97 k/cumm (1.2-6.7) 10/15/18 08:05 Absolute Lymphocytes 1.08 k/cumm (1.2-3.4) L 10/15/18 08:05 Absolute Monocytes 0.66 k/cumm (0.11-0.7) 10/15/18 08:05 Absolute Eosinophils 0.12 k/cumm (0.0-0.7) 10/15/18 08:05 Absolute Basophils 0.00 k/cumm (0.0-0.2) 10/15/18 08:05 Differential Comment Manual differential 10/15/18 08:05 RBC Morphology See below 10/15/18 08:05 Polychromasia Present 10/15/18 08:05 Poikilocytosis 2+ 10/15/18 08:05 Anisocytosis 2+ 10/15/18 08:05 PT 11.0 sec (9.3-11.0) 10/22/18 06:50 INR 1.1 (0.9-1.1) 10/22/18 06:50 Sodium 140 mmol/L (136-145) 10/22/18 06:50 Potassium 4.3 mmol/L (3.5-5.1) 10/22/18 06:50 Chloride 104 mmol/L (98-107) 10/22/18 06:50 Carbon Dioxide 29.8 mmol/L (21.0-32.0) 10/22/18 06:50 Anion Gap 6.2 mmol/L (3-11) 10/22/18 06:50 BUN 16 mg/dL (7-18) 10/22/18 06:50 Creatinine 0.51 mg/dL (0.55-1.02) L 10/22/18 06:50 Estimated GFR/1.73 m2 >= 60.00 (mL/min/1.73m2) 10/22/18 06:50 Glucose 133 mg/dL (70-100) H 10/22/18 06:50 Calcium 7.8 mg/dL (8.5-10.1) L 10/22/18 06:50 Phosphorus 2.5 mg/dL (2.6-4.7) L 10/22/18 06:50 Magnesium 1.8 mg/dL (1.8-2.4) 10/22/18 06:30 Total Bilirubin 0.2 mg/dL (0.2-1.0) 10/22/18 06:50 AST 23 U/L (15-37) 10/22/18 06:50 ALT 25 U/L (12-78) 10/22/18 06:50 Alkaline Phosphatase 74 U/L (46-116) 10/22/18 06:50 Troponin I < 0.02 ng/mL (0.00-0.06) 10/12/18 06:09 C-Reactive Protein 5.35 mg/dL (0.0-0.3) H 10/14/18 06:45 Total Protein 6.4 g/dL (6.4-8.2) 10/22/18 06:50 Albumin 2.4 g/dL (3.4-5.0) L 10/22/18 06:50 Prealbumin 7 mg/dL (20-40) L 10/15/18 08:05 Lipase 38 U/L (73-393) L 10/12/18 06:09 Urine Color Cancelled 10/12/18 06:14 Urine Clarity Cancelled 10/12/18 06:14 Urine pH Cancelled 10/12/18 06:14 Ur Specific [place] Cancelled 10/12/18 06:14 Urine Protein Cancelled 10/12/18 06:14 Urine Ketones Cancelled 10/12/18 06:14 Urine Blood Cancelled 10/12/18 06:14 Urine Nitrite Cancelled 10/12/18 06:14 Urine Bilirubin Cancelled 10/12/18 06:14 Urine Urobilinogen Cancelled 10/12/18 06:14 Ur Leukocyte Esterase Cancelled 10/12/18 06:14 Urine Glucose Cancelled 10/12/18 06:14 Stl C.difficile Tox PCR Cancelled 10/12/18 19:00 C.difficile Tox Source Cancelled 10/12/18 19:00
[2018-10-22] MEDS: Nystatin CREAM 15 GM TUBE TP (11:56)
[2018-10-22] MEDS: Nystatin POWDER 60 GM JAR TP (11:56)
[2018-10-22] MEDS: Normal Saline 500 ML 30 ML IV (11:57)
--- NOTE | 2018-10-22 13:06 | PGE_ITS ---
Date of Service Date of service: 10/22/18 Time of Service: 13:06 Assessment and Plan (1) Fistula of vagina: Current visit: No Status: Acute as below (2) Rectovaginal fistula: Current visit: Yes Status: Acute [facility] [place] [place] take pt as an acute transfer. they don't see as inpt problems adn she should be seen in clinic -we can ween TPN. stop insulin once tpn is complete. -stop abx. monitor for signs of urinary infection/sepsis. reg /high fiber diet -would maintain fajardo for hygiene -don't know if pt is strong enough/safe to go home. Pt did have fall and develop compression Fx. -Also unsure if family will be able to care for pt at home -skin is starting to have breakdown -change to all po's meds. -she will go home w/ PICC line in place. -neither [facility] or [facility] [place] [place] have appts for several weeks. pt and hospband cannot manage this at home. -pt is refusing sx at [facility] -pt is refusing to go to SNF Exam Const General: cooperative, healthy appearing, comfortable, no acute distress, well developed and well groomed Nutritional Appearance: average body habitus and well nourished Orientation: alert, awake and oriented x3 HENMT Head: normal to inspection, normocephalic and atraumatic Ears: hearing grossly normal bilaterally and external ears normal General nose exam: external nose normal Face and sinus: normal facial exam and sinuses nontender Mouth: oral mucosae normal, lip normal, tongue normal and moist mucous membranes Teeth and gingiva: dentition normal Eyes General: appearance normal, both eyes and all related structures Conjunctivae: conjunctivae normal Sclera: sclerae normal Pupils: PERRL Neck Neck: normal visual inspection and full ROM Chest Chest: normal inspection of the chest Resp Effort & Inspection: normal respiratory effort, able to speak in complete sentences, no cough, no nasal flaring, not tachypneic and no use of accessory muscles Auscultation: clear to auscultation bilaterally, no rales, no rhonchi and no wheezes Cardio Jugular venous pressure: no JVD Rate: regular rate Rhythm: regular rhythm GI Inspection: normal to inspection, no edema and non-distended Palpation: soft, no masses, nontender and No ascites Auscultation: normal bowel sounds Other: incision well healed Other: no change per pt. exam not down Back/Spine/Pelvis Other: chronic low back pain secondary to vertebral compression Fx Skin General skin exam: no rashes or lesions noted Trauma: no lacerations or abrasions Neuro General: alert, oriented x3, oriented, gait normal, moves all extremities, no focal motor deficits and CN's II-XI intact bilaterally Cognition: normal cognition Speech: speech normal Gait: normal gait Motor: muscle tone normal throughout Extrem General: normal to inspection, full ROM and no clubbing, cyanosis or edema Other: PICC line site is c/d/i. no redness or swelling Psych Appearance: grossly normal and well kempt Mental Status: mental status grossly normal Mood: anxious mood Objective Objective Clinical Data: Abnormal lab results 10/22/18 10/22/18 10/22/18 Range/Units 06:30 06:30 06:50 WBC 11.79 H (4.4-10.8) k/cumm RBC 3.59 L (4.00-5.20) m/cumm Hgb 9.8 L (12.0-15.5) g/dL Hct 32.0 L (36.0-46.0) % MCHC 30.6 L (32.0-36.0) g/dL RDW 20.1 H (11.7-14.6) % Creatinine 0.50 L 0.51 L (0.55-1.02) mg/dL Glucose 133 H 133 H (70-100) mg/dL Calcium 7.6 L 7.8 L (8.5-10.1) mg/dL Phosphorus 2.5 L (2.6-4.7) mg/dL Albumin 2.4 L (3.4-5.0) g/dL Vital Signs Temperature 36.3 C L 10/22/18 08:00 Temperature Source Tympanic 10/22/18 08:00 Pulse 84 10/22/18 08:00 Pulse Rhythm Regular 10/22/18 09:52 Pulse Strength Normal 10/12/18 09:39 Respiratory Rate 13 10/22/18 08:00 Respiratory Effort 10/22/18 09:52 Respiratory Depth Normal 10/22/18 09:52 Respiratory Pattern Normal 10/21/18 20:49 Blood Pressure 157/76 H 10/22/18 08:00 Blood Pressure Mean 80 10/12/18 09:39 Pulse Oximetry 96 10/22/18 08:00 Oxygen Delivery Method Room Air 10/22/18 08:00 Oxygen Flow Rate 0 10/22/18 08:00 Pain Level 0 10/22/18 08:00 Comment 10/22/18 08:00 Intake & Output 10/21/18 10/22/18 10/22/18 23:59 11:59 23:59 Intake Total 2495 / 5131.000 200 / 200 Output Total 1575 / 3875 1100 / 1100 Balance 920 / 1256.000 -900 / -900 Weight 76.9 kg Intake: IV 1775 / 3141.000 100 / 100 Oral 720 / 1990 100 / 100 Output: Urine 1575 / 3875 1100 / 1100 Other: Urine Color Yellow Yellow Urine Appearance Clear Clear Stool Size Small Small Stool Characteristics Liquid Formed Brown Laboratory Results WBC 11.79 k/cumm (4.4-10.8) H 10/22/18 06:30 RBC 3.59 m/cumm (4.00-5.20) L 10/22/18 06:30 Hgb 9.8 g/dL (12.0-15.5) L 10/22/18 06:30 Hct 32.0 % (36.0-46.0) L 10/22/18 06:30 MCV 89.1 fL (80-95) 10/22/18 06:30 MCH 27.3 pg (27.0-33.0) 10/22/18 06:30 MCHC 30.6 g/dL (32.0-36.0) L 10/22/18 06:30 RDW 20.1 % (11.7-14.6) H 10/22/18 06:30 Plt Count 306 x1000/uL (130-400) 10/22/18 06:30 MPV 10.1 fL (8.0-11.0) 10/22/18 06:30 Immature Gran % See Differential 10/15/18 08:05 Neutrophils % 66.0 10/15/18 08:05 Lymphocytes % 17.0 10/15/18 08:05 Atypical Lymphs % 1 10/15/18 08:05 Monocytes % 11.0 10/15/18 08:05 Eosinophils % 2.0 10/15/18 08:05 Basophils % 0.0 10/15/18 08:05 Myelocytes % 3.0 % 10/15/18 08:05 Absolute Neutrophils 3.97 k/cumm (1.2-6.7) 10/15/18 08:05 Absolute Lymphocytes 1.08 k/cumm (1.2-3.4) L 10/15/18 08:05 Absolute Monocytes 0.66 k/cumm (0.11-0.7) 10/15/18 08:05 Absolute Eosinophils 0.12 k/cumm (0.0-0.7) 10/15/18 08:05 Absolute Basophils 0.00 k/cumm (0.0-0.2) 10/15/18 08:05 Differential Comment Manual differential 10/15/18 08:05 RBC Morphology See below 10/15/18 08:05 Polychromasia Present 10/15/18 08:05 Poikilocytosis 2+ 10/15/18 08:05 Anisocytosis 2+ 10/15/18 08:05 PT 11.0 sec (9.3-11.0) 10/22/18 06:50 INR 1.1 (0.9-1.1) 10/22/18 06:50 Sodium 140 mmol/L (136-145) 10/22/18 06:50 Potassium 4.3 mmol/L (3.5-5.1) 10/22/18 06:50 Chloride 104 mmol/L (98-107) 10/22/18 06:50 Carbon Dioxide 29.8 mmol/L (21.0-32.0) 10/22/18 06:50 Anion Gap 6.2 mmol/L (3-11) 10/22/18 06:50 BUN 16 mg/dL (7-18) 10/22/18 06:50 Creatinine 0.51 mg/dL (0.55-1.02) L 10/22/18 06:50 Estimated GFR/1.73 m2 >= 60.00 (mL/min/1.73m2) 10/22/18 06:50 Glucose 133 mg/dL (70-100) H 10/22/18 06:50 Calcium 7.8 mg/dL (8.5-10.1) L 10/22/18 06:50 Phosphorus 2.5 mg/dL (2.6-4.7) L 10/22/18 06:50 Magnesium 1.8 mg/dL (1.8-2.4) 10/22/18 06:30 Total Bilirubin 0.2 mg/dL (0.2-1.0) 10/22/18 06:50 AST 23 U/L (15-37) 10/22/18 06:50 ALT 25 U/L (12-78) 10/22/18 06:50 Alkaline Phosphatase 74 U/L (46-116) 10/22/18 06:50 Troponin I < 0.02 ng/mL (0.00-0.06) 10/12/18 06:09 C-Reactive Protein 5.35 mg/dL (0.0-0.3) H 10/14/18 06:45 Total Protein 6.4 g/dL (6.4-8.2) 10/22/18 06:50 Albumin 2.4 g/dL (3.4-5.0) L 10/22/18 06:50 Prealbumin 7 mg/dL (20-40) L 10/15/18 08:05 Lipase 38 U/L (73-393) L 10/12/18 06:09 Urine Color Cancelled 10/12/18 06:14 Urine Clarity Cancelled 10/12/18 06:14 Urine pH Cancelled 10/12/18 06:14 Ur Specific [place] Cancelled 10/12/18 06:14 Urine Protein Cancelled 10/12/18 06:14 Urine Ketones Cancelled 10/12/18 06:14 Urine Blood Cancelled 10/12/18 06:14 Urine Nitrite Cancelled 10/12/18 06:14 Urine Bilirubin Cancelled 10/12/18 06:14 Urine Urobilinogen Cancelled 10/12/18 06:14 Ur Leukocyte Esterase Cancelled 10/12/18 06:14 Urine Glucose Cancelled 10/12/18 06:14 Stl C.difficile Tox PCR Cancelled 10/12/18 19:00 C.difficile Tox Source Cancelled 10/12/18 19:00
--- NOTE | 2018-10-22 15:03 | CHAPLAIN ---
Amanda was disappointed to learn yesterday that neither [facility] or [facility] [place] be able to offer her a bed. The search has expanded to hospitals in [place] and [place], [place]. Neither Amanda or her want her to go to [place] and would much prefer [facility] as they have friends nearby. Amanda's said he is beginning to have trouble sleeping because he is worrying about the situation. He said he gets cat naps while watching tv at night. Amanda remains very pleasant, through frustrated. She is Sabianist and the prescriptionist from [facility] have continued to visit her.
[2018-10-22 15:25] VITALS: BP 147/56; PULSE 86; RESP 16; TEMP 36.9; O2SAT 96
--- NOTE | 2018-10-22 15:43 | PDOC.CMPRO ---
- If Service Date Differs Date of service: 10/22/18 Time of Service: 15:44 Care Management Progress Note CM met with family for an extended amount of time r/t concerns r/t transfer to tertiary center. Riddhi and her spouse are asking appropriate questions related to care. They express frustration that they where told that Amanda needed to be transferred to a tertiary center and now it does not appear urgent. Riddhi does not feel that she could be discharged from the hospital with having stool come out of her vagina and she does not feel she could care for herself. Her spouse states he is not able to care for her in this condition he states she needs to be repaired. CM offered support to physician coordinating of referrals to tertiary centers. MAYE contacted [place]og[place] [facility] He has offered to assist with referral to general surgery at [facility] CM faxed referral to general surgeon at [facility]. He has declined he states the patient has to go to [facility] or [facility] or other tertiary center. CM contacted [facility] and spoke with general surgery.CM spoke with patient and her spouse in the meantime Pat contacted public office and obtained the contact information for an health managed care specialist. CM offered to assist patient in contacting the advocate and also reviewed coordination of services to a tertiary center. Per surgeon the patient may need a diverting ostomy. The patient states she had not thought about that as an options and although she would not like it she would prefer it over having stool leak constantly. She and her spouse appear to understand, CM allowed time for questions. CM encouraged patient and spouse to write questions down to review with CM and provider over the weekend. MAYE spoke with [facility] transfer center and per report the patient was accepted and meets acute criteria however they do not have the capacity to take the patient. Only beds open are in the ICU and she does not meet that level of care. Hospitals contacted by MAYE [facility] - [phone], no beds available per transfer center. MAYE spoke with KAMILLE Hanson and he states the recommendation was that the patient be transferred acutely to closest tertiary facility. He recommends contacting [place] or [facility]. MAYE contacted the listed hospitals and spoke with to review referrals to tertiary center. [facility] - Contact transfer center again on Thursday per transfer center. [facility] - [phone] CM left a voicemail for RN broommaking supervisor reviewing transfer [facility] - [phone] they do have beds message and patient is being reviewed. They will contact for provider to provider. [facility] declined patient referred to tertiary center. Weekend provider should contact the list of facilities again over the weekend to have patient acutely transferred tertiary centers should be contacted daily.
[2018-10-22] MEDS: Heparin 5,000 UNITS/ML VIAL 5000 UNITS SC (16:04)
--- NOTE | 2018-10-22 16:30 | CMPROGNOTE_ITS ---
- If Service Date Differs Date of service: 10/22/18 Time of Service: 15:44 Care Management Progress Note CM met with family for an extended amount of time r/t concerns r/t transfer to tertiary center. Riddhi and her spouse are asking appropriate questions related to care. They express frustration that they where told that Amanda needed to be transferred to a tertiary center and now it does not appear urgent. Riddhi does not feel that she could be discharged from the hospital with having stool come out of her vagina and she does not feel she could care for herself. Her spouse states he is not able to care for her in this condition he states she needs to be repaired. CM offered support to physician coordinating of referrals to tertiary centers. MAYE contacted her rheumatogist at [facility]. He has offered to assist with referral to general surgery at [facility]. CM faxed referral to general surgeon at [facility] He has declined he states the patient has to go to [facility] or [facility] or other tertiary center. CM contacted [facility] and spoke with general surgery.CM spoke with patient and her spouse in the meantime Pat contacted public office and obtained the contact information for an health managed care nurse. CM offered to assist patient in contacting the advocate and also reviewed coordination of services to a tertiary center. Per surgeon the patient may need a diverting ostomy. The patient states she had not thought about that as an options and although she would not like it she would prefer it over having stool leak constantly. She and her spouse appear to understand, CM allowed time for questions. CM encouraged patient and spouse to write questions down to review with CM and provider over the weekend. MAYE spoke with [facility] transfer center and per report the patient was accepted and meets acute criteria however they do not have the capacity to take the patient. Only beds open are in the ICU and she does not meet that level of care. Hospitals contacted by MAYE [facility] - [phone], no beds available per transfer center. MAYE spoke with KAMILLE Hanson and he states the recommendation was that the patient be transferred acutely to closest tertiary facility. He recommends contacting [place] or [facility]. MAYE contacted the listed hospitals and spoke with to review referrals to tertiary center. [facility] - Contact transfer center again on Thursday per transfer center. [facility] - [phone] CM left a voicemail for RN optical instrument assembly supervisor reviewing transfer [facility] - [phone] they do have beds message and patient is being reviewed. They will contact for provider to provider. [facility] declined patient referred to tertiary center. Weekend provider should contact the list of facilities again over the weekend to have patient acutely transferred tertiary centers should be contacted daily.
--- NOTE | 2018-10-22 17:19 | PT.INDS ---
Date of service: 10/22/18 Time of Service: 17:19 PT Notes Inpatient Physical Therapy Discharge Summary Dates: 10/21/2018 Dates of Service: 10/12/18 through 10/21/18 Referring Doctor: Mena Lugo MD PT Orders: PT CONSULT: Eval and treat Precautions: Fall. Standard. Patient Profile/Admitting Diagnosis: Orders received for this 78-year-old patient who presented to the ER today for left-sided abdominal pain, decreased appetite, and weakness. Patient was subsequently admitted to [facility] with diagnosis of acute colitis, urinary tract infection, and failure to thrive. Patient recently received inpatient physical therapy services at this hospital from 09/12/18 through 09/21/18 during which time patient patient was prescribed with a a cruciform anterior spinal hyperextension (DEWEY) orthosis to manage her back pain from T12 compression fracture. She was discontinued from inpatient rehabilitation to a half-way facility at the [facility] on 09/24/2018 where she continued to receive functional mobility training and was discontinued to home with Home health referral a week ago. PMHX: Medical History Raynaud's disease (Acute) Primary osteoarthritis of left knee (Acute 07/30/15) PMR (polymyalgia rheumatica) (Chronic 01/15/16) Osteoporosis (Acute) Osteopenia (Acute 07/30/16) Obstructive sleep apnea syndrome (Acute) Non-alcoholic fatty liver disease (Acute) Memory impairment (Acute 06/18/94) Increased body mass index (Acute) Hypothyroidism (Acute 04/05/12) Fracture, calcaneus closed (Acute 09/19/14) Excessive sweating (Acute 06/02/16) Depressive disorder (Acute) Colon polyp (Acute 06/28/18) Cataract (Acute 07/28/14) Benign paroxysmal positional vertigo (Acute) Abdominal pain (Acute 10/31/13) Insomnia (Acute) Tuberculosis (Chronic) Surgical History H/O dilation and curettage (Acute) S/P tonsillectomy (Acute) Abdominal hysterectomy (~1975) Appendectomy Bilateral salpingectomy with oophorectomy (~1975) Colonoscopy - MAC EGD - MAC (~2003) Laparoscopic, Ovarian Cystectomy Rotator Cuff Repair Social History/Home Situation: Patient lives with her in a 2-floor house with 4 steps to enter, rails on both sides. did emphasize that patient does not need to go to the second floor of the house as they have converted the living room on the first floor to be her bedroom. Her has been staying on the room next to the living room so he can be available every time his needs him. denies any falls since going back home from the SNF a week ago. Equipment Owned/DME: Patient has a 4-wheeled walker, bedside commode, electric recliner, a bench This is a clinical summary of skilled services provided for patient for the duration of date listed above. No charge was made in the completion of this documentation. Subjective: Patient and family have been distressed about projected transfer to a different hospital for a potential colorectal surgery. No definite date of surgery nor location of surgery have been set up at this time. Objective: NT Mental Status: Alert and oriented x3 Pain: 0/10. ROM: Right Upper Extremity: WFL Left Upper Extremity: WFL Right Lower Extremity: WFL Left Lower Extremity: WFL Trunk: Patient is able to sit up with head of bed elevated to 55 degrees with the least amount of pain on the back . Patient is able to allow trunk flexion of up to about 20 degrees to facilitate sit to stand movement transitions. No further testing was done due to limitation placed by pain. Strength: Right Upper Extremity: WFL Left Upper Extremity: WFL Right Lower Extremity: Hip flexors 3+/5. Hip abductors 3+/5. Knee flexors 4-/5. Knee extensors 4-/5. Ankle dorsiflexors 3+/5. Left Lower Extremity: Hip flexors 3+/5. Hip abductors 3+/5. Knee flexors 4-/5. Knee extensors 4-/5. Ankle dorsiflexors 3+/5. Bed Mobility/Transfers: Rolling independent Supine to sit independent Sit to supine independent Sit to stand independent Stand to sit independent Bed to chair independent Chair to bed independent Gait: Per [employer] documentation in the morning of 10/21/18, patient has been independent with level surface ambulation on facility floors using her 4 WW with full weight bearing on BUE and LE for 250 feet with out any discomforts, no shuffling of gait observed. Balance: Static Sitting: Good Dynamic Sitting: Good Static Standing: Fair Dynamic Standing: Fair Special Tests: Mobility Limitations Standardized Measure [facility] 6 clicks Basic Mobility Inpatient Short Form: Raw Score: 23 CMS Score: 11.20% deficit ASSESSMENT: Assessment: Patient is a 78 year old female referred to physical therapy services with the diagnosis of acute colitis, urinary tract infection, failure to thrive, and chronic low back pain.. Patient presents with clinical signs and symptoms consistent with current/admitting diagnoses that has resulted to mobility limitations, gait instability, generalized weakness, and lack of motor control as demonstrated by the following impairment level findings: 1. Impaired balance 2. Impaired activity tolerance Impairments are contributing to the following functional limitations: 1. Inability to safely ambulate without assistive device 2. Increase completion time for mobility ADL performance Goals X1 week 1. Supine-Sit independent MET 2. Sit-Supine independent MET 3. Sit-Stand independent MET 4. Stand-Sit independent MET 5. Bed-Chair independent MET 6. Chair-Bed independent MET 7. Gait on level surface ambulation with use of least restrictive device for at least 300 feet without report of pain nor dyspnea MET 8. Stairs independent while holding onto bilateral rails for at least 5 steps without report of pain nor dyspnea. Deferred due to rectovaginal fistula. 9. Independent with home exercise program. Deferred due to rectovaginal fistula. 10. Balance good for static and dynamic standing. Deferred due to rectovaginal fistula. DISCHARGE RECOMMENDATIONS: Patient will highly benefit from home health PT services in order to assess for home safety, continue with /caregiver education and training with mobility task assistance, assess for additional safety equipment at home, and establish/implement functional maintenance program. TREATMENT CODE/TIME: N/A Thank you for this referral. Marley Patel, PT, DPT, CLT [facility]
--- NOTE | 2018-10-22 18:43 | W.PM.DS.N ---
Date of service: 10/22/18 Time of Service: 18:47 DS: Diagnosis Discharge Diagnosis (1) Fistula of vagina: Status: Acute (2) Rectovaginal fistula: Status: Acute Discharge Plan Disposition Patient Disposition: HOSPITAL, NON-SPECIFIC Condition: Stable Discharge Details Chief Complaint: Abd Prob Reason For Visit: ACUTE COLITIS, UTI, FAILURE TO THRIVE Admit Date/Time: 10/12/18 10:28 Admit Provider: Mena Lugo Attending Provider: Maggie Gonzalez Primary Care Provider: Liz Granado ED Provider: Ammy Bailey Hospital Course Hospital Course: 78 y/o female admitted through the ED for abdominal pain, UTI, and weakness. Patient was recently hospitalized then sent to rehab s/p fall and thoracic vertebral compression fracture. She has been on chronic steroids for polymyalgia rheumatica and has a h/o adrenal insufficiency. Patient had undergone a colonoscopy and subsequent exploratory laparotomy with sigmoid colectomy and stapled end-to-end anastomosis for a perforation on 06/28/18. She has been hospitalized multiple times since then for weakness and the vertebral fracture. She has also had issues with lower abdominal pain and diarrhea and has been on a course of Cipro/Flagyl. She was last hospitalized about 2-3 weeks ago. On this admission, she was restarted on Cipro/ Flagyl. Stool was (-) for C diff. Johnson was placed on admission for urinary retention. On 10/14/18 she was noted to have liquid stool in the vaginal vault and c/o bubbling. CT abd/pelvis with oral and rectal contrast demonstrated a rectovaginal fistula with contrast in the vaginal vault. There was suggestion of a possible trace of contrast in the bladder on CT per report but no clinical evidence of a colovesical fistula. Patient was evaluated by urology. She was started on TPN and bedrest in hopes that the rectovaginal fistula would heal. Unfortunately, she continued to have stool per vagina with decreased stool per rectum raising concern for a possible stricture. She has remained afebrile with stable vital signs. Most recent WBC ~11k. Possible diverting colostomy had been discussed with patient. Patient refuses to have more surgery at [facility]. She refuses discharge to SNF/NH. Her is not able to care for her at home. She has impaired mobility and balance per PT eval but is not able to tolerate physical therapy. Patient's case was discussed with multiple surgeons at multiple tertiary facilities by Drs. Schwarz and Yoli. Unfortunately, no beds have been available and outpatient follow-up is not available for several weeks. Discussed patient with Re Cole [employer] for Dr. Núñez, Surgeon, at [facility]. They are willing to accept the patient in transfer. This was discussed with the patient who wishes to be transferred and is agreeable with transfer to [facility]. Copies of records including CT images and colonoscopy/operative report to be sent with patient. Home Meds and New Rx's Prescriptions: No Action isoniazid 300 mg tablet 300 mg PO DAILY RF: 0 calcium carbonate-vitamin D3 [Caltrate with Vitamin D3] 600 mg(1,500mg) -800 unit tablet 1 tab PO DAILY RF: 0 bupropion HCl [Wellbutrin XL] 150 mg tablet extended release 24 hr 150 mg PO QAM RF: 0 pyridoxine (vitamin B6) 25 mg tablet 25 mg PO DAILY RF: 0 multivitamin [One Daily Multivitamin] tablet 1 tab PO BID RF: 0 furosemide 20 mg tablet 40 mg PO DAILY RF: 0 ferrous gluconate 324 mg (38 mg iron) tablet 324 mg PO DAILY PRN (Reason: iron deficient anemia) Qty: 90 RF: 2 aspirin [Aspirin Low Dose] 81 MG tablet,delayed release (DR/EC) 81 mg PO DAILY RF: 0 folic acid 1 MG tablet 1 mg PO DAILY Qty: 90 RF: 4 bupropion HCl 300 mg tablet extended release 24 hr 300 mg PO QAM Qty: 90 RF: 2 levothyroxine 125 mcg capsule 125 mcg PO DAILY Qty: 30 RF: 3 clotrimazole 1 % Ointment 45 g topical BID RF: 0 nystatin 100,000 unit/gram Cream 60 g topical DAILY RF: 0 amlodipine 5 mg Tablet 5 mg PO DAILY Qty: 0 RF: 0 lidocaine [Lidoderm] 5 % Adhesive Patch,Medicated 1 patch topical DAILY Qty: 0 RF: 0 docusate sodium [Colace] 100 mg Capsule 100 mg PO BID Qty: 0 RF: 0 melatonin 3 mg Tablet Extended Release 6 mg PO HS Qty: 0 RF: 0 magnesium chloride [Mag 64] 64 mg Tablet,Delayed Release (Dr/Ec) 64 mg PO BID Qty: 0 RF: 0 tramadol 50 mg Tablet 50 mg PO Q6H PRN PRNQty: 0 RF: 0 potassium chloride [Klor-Con M20] 20 mEq Tablet,Er Particles/Crystals 40 meq PO BID Qty: 0 RF: 0 zolpidem 5 mg Tablet 5 mg PO HS Qty: 0 RF: 0 Mouthwash [Biotene Mouthwash] Mucous Membrane BID PRN PRNQty: 0 RF: 0 Medrol 2 mg Tablet 2 mg PO DAILY RF: 0 Discharge Instructions Additional Instructions: Transfer by ambulance to [facility]. See transfer orders. Activity:: With assist as tolerated Equipment/Supplies:: No Equipment Needed Diet:: As Tolerated Discharge Orders Discharge Orders: Discharge Order (Routine); Ordered 10/22/18 Ordered By: Maggie Gonzalez Exam Const General: cooperative and no acute distress Nutritional Appearance: obese Orientation: alert and oriented x3 HENMT Head: normocephalic and atraumatic Resp Effort & Inspection: normal respiratory effort and able to speak in complete sentences Cardio Jugular venous pressure: no JVD GI Inspection: abdominal wall ecchymosis (across lower abdomen, related to heparin injections) and obesity Palpation: soft and no guarding Other: soft, dark brown stool in perineum DS: Data Vitals/I&O Vitals and I&O: Vital Signs Temperature 36.9 C 10/22/18 15:25 Temperature Source Tympanic 10/22/18 15:25 Pulse 86 10/22/18 15:25 Pulse Rhythm Regular 10/22/18 15:45 Pulse Strength Normal 10/12/18 09:39 Respiratory Rate 16 10/22/18 15:25 Respiratory Effort 10/22/18 15:45 Respiratory Depth Normal 10/22/18 15:45 Respiratory Pattern Normal 10/22/18 15:45 Blood Pressure 147/56 H 10/22/18 15:25 Blood Pressure Mean 80 10/12/18 09:39 Pulse Oximetry 96 10/22/18 15:25 Oxygen Delivery Method Room Air 10/22/18 15:25 Oxygen Flow Rate 0 10/22/18 15:25 Pain Level 8 10/22/18 18:10 Comment 10/22/18 08:00 Intake & Output 10/21/18 10/22/18 10/22/18 23:59 11:59 23:59 Intake Total 2495 / 5131.000 200 / 2555 2355 / 2555 Output Total 1575 / 3875 1100 / 3400 2300 / 3400 Balance 920 / 1256.000 -900 / -845 55 / -845 Weight 76.9 kg Intake: IV 1775 / 3141.000 100 / 1885 1785 / 1885 Oral 720 / 1990 100 / 670 570 / 670 Output: Urine 1575 / 3875 1100 / 3400 2300 / 3400 Other: Urine Color Yellow Yellow Yellow Urine Appearance Clear Clear Clear Comment Urine smelled strong. Notifieed Bandar RN Stool Size Small Small Small Stool Characteristics Liquid Formed Soft Brown Brown Green Labs on day of discharge: Labs from last 24 hours 10/22/18 10/22/18 10/22/18 06:50 06:50 06:30 WBC 11.79 H RBC 3.59 L Hgb 9.8 L Hct 32.0 L MCV 89.1 MCH 27.3 MCHC 30.6 L RDW 20.1 H Plt Count 306 MPV 10.1 PT 11.0 INR 1.1 Sodium 140 Potassium 4.3 Chloride 104 Carbon Dioxide 29.8 Anion Gap 6.2 BUN 16 Creatinine 0.51 L Estimated GFR/1.73 m2 >= 60.00 Glucose 133 H Calcium 7.8 L Phosphorus 2.5 L Magnesium Total Bilirubin 0.2 AST 23 ALT 25 Alkaline Phosphatase 74 Total Protein 6.4 Albumin 2.4 L 10/22/18 06:30 WBC RBC Hgb Hct MCV MCH MCHC RDW Plt Count MPV PT INR Sodium 139 Potassium 4.3 Chloride 105 Carbon Dioxide 29.2 Anion Gap 4.8 BUN 16 Creatinine 0.50 L Estimated GFR/1.73 m2 >= 60.00 Glucose 133 H Calcium 7.6 L Phosphorus Magnesium 1.8 Total Bilirubin AST ALT Alkaline Phosphatase Total Protein Albumin [facility] Medical History Rectovaginal fistula (Acute) Leukocytosis (Chronic) Hypokalemia (Acute) Primary osteoarthritis of left knee (Acute 07/30/15) PMR (polymyalgia rheumatica) (Chronic 01/15/16) Osteoporosis (Acute) Osteopenia (Acute 07/30/16) Obstructive sleep apnea syndrome (Acute) Memory impairment (Chronic 06/18/94) Increased body mass index (Acute) Hypothyroidism (Acute 04/05/12) Excessive sweating (Acute 06/02/16) Depressive disorder (Chronic) Insomnia (Acute) Tuberculosis (Chronic) Surgical History H/O dilation and curettage (Acute) H/O partial resection of colon (Acute) S/P tonsillectomy (Acute) Abdominal hysterectomy (~1975) Appendectomy Bilateral salpingectomy with oophorectomy (~1975) Colonoscopy - MAC EGD - MAC (~2003) Laparoscopic, Ovarian Cystectomy Rotator Cuff Repair Family History Mother Heart disease Pneumonia Father Stroke Personal history of malignant neoplasm Heart disease Brother Alcohol abuse Cirrhosis with alcoholism Grandfather Essential hypertension Heart disease Grandmother Personal history of malignant neoplasm Stroke Grandmother Personal history of malignant neoplasm Son Alcohol abuse Social History Smoking/Tobacco Use Status: Former Tobacco Use Alcohol Intake: never Drug use: Never Substance use type: does not use Household members: other 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
== END 2018-10-22 19:40 | disposition short-term general hospital (02) | DRG 392 ==
LOC: ER 11:10 → MS 15:37
PROVIDERS: Emergency Medicine; Nurse Practitioner; Surgery; Admitting Provider Internal Medicine; Emergency Provider Physician Assistant; PCP Family Medicine; Visit Provider Surgery
DX: K52.9 Noninfective gastroenteritis and colitis, unspecified (principal); N30.00 Acute cystitis without hematuria; E27.40 Unspecified adrenocortical insufficiency; N82.3 Fistula of vagina to large intestine; E87.1 Hypo-osmolality and hyponatremia; Y83.6 Removal of other organ (partial) (total) as the cause of abnormal reaction of the patient, or of later complication, without mention of misadventure at the time of the procedure; R33.9 Retention of urine, unspecified; M35.3 Polymyalgia rheumatica; E87.6 Hypokalemia; E83.42 Hypomagnesemia; E83.39 Other disorders of phosphorus metabolism; E03.9 Hypothyroidism, unspecified; R76.11 Nonspecific reaction to tuberculin skin test without active tuberculosis; R26.2 Difficulty in walking, not elsewhere classified; S22.080D Wedge compression fracture of T11-T12 vertebra, subsequent encounter for fracture with routine healing; W19.XXXD Unspecified fall, subsequent encounter; D50.8 Other iron deficiency anemias; Z71.3 Dietary counseling and surveillance; Z79.52 Long term (current) use of systemic steroids; Z90.49 Acquired absence of other specified parts of digestive tract; Z96.0 Presence of urogenital implants
CPT/HCPCS: 36415; 36569; 80048; 80053; 83690; 85027; 96361; 96365; 96367; 96375; 97110; 97162; 97166; 97530; 97535; 99221; 99222; 99232; 99233; 99239; 99252; 99253; 99285; J3490; 74176; 74177; 81003; 83735; 84100; 84134; 84484; 85025; 85610; 86140; 87324; 87798; 99284; J0131; J0744; J1644; J1720; J1756; J2060; J2270; J2405; J3475; J3480

== ENCOUNTER 2018-12-16 10:50 | Outpatient (CLI) | payer MEDICARE, SELFPAY ==
[2018-12-16 12:48] LABS: HCT 36.1 % (36.0-46.0); HGB 11.1 g/dL (12.0-15.5); Mean Corp. HGB Concentration 30.7 g/dL (32.0-36.0); Mean Corpuscular Volume 91.2 fL (80-95); Mean Platelet Volume 11.1 fL (8.0-11.0); Platelet Count 330 x1000/uL (130-400); RBC 3.96 m/cumm (4.00-5.20); RBC Distribution Width 14.9 % (11.7-14.6); White Blood Cell Count 8.96 k/cumm (4.4-10.8)
[2018-12-16 13:06] LABS: Iron 50 ug/dL (50-175); Total Iron Binding Capacity 243 ug/dL (250-450); Transferrin Sat 21 % (15-50)
[2018-12-16 13:24] LABS: ALT 24 U/L (12-78); AST 22 U/L (15-37); Alkaline Phosphatase 93 U/L (46-116); Anion Gap 10.2 mmol/L (3-11); BUN 14 mg/dL (7-18); Bilirubin, Total 0.3 mg/dL (0.2-1.0); CO2 27.8 mmol/L (21.0-32.0); Calcium 9.2 mg/dL (8.5-10.1); Chloride 103 mmol/L (98-107); Ferritin 64 ng/mL (8-388); Glucose 120 mg/dL (70-100); Magnesium 1.7 mg/dL (1.8-2.4); Potassium 3.2 mmol/L (3.5-5.1); Sodium 141 mmol/L (136-145); Total Protein 6.9 g/dL (6.4-8.2)
== END 2018-12-16 11:10 ==
PROVIDERS: PCP Family Medicine; Visit Provider Family Medicine
DX: D64.9 Anemia, unspecified (principal); M35.3 Polymyalgia rheumatica; E83.42 Hypomagnesemia
CPT/HCPCS: 36415; 80053; 85027; 82728; 83540; 83550; 83735

== ENCOUNTER 2018-12-28 17:03 | Outpatient (REF) | payer MEDICARE, SELFPAY ==
[2018-12-28 22:35] LABS: Bilirubin Negative (Negative); Blood Negative (Negative); Clarity Clear; Glucose Negative (Negative); Ketones Negative (Negative); Leukocyte Esterase Trace (Negative); Nitrite Negative (Negative); Specific Gravity 1.025 (1.005-1.025); Urobilinogen 0.2 EU/dL (Up TO 0.2); pH 5.5 (5-8)
[2018-12-28 22:44] LABS: Bacteria Moderate HPF (Negative); C & S Indicated? Yes; Casts Negative LPF (Negative); Crystals Few Calcium Oxalate HPF (Negative); Epithelial Cells Rare HPF (Negative); Mucus Negative (Negative); Other Cells Negative (Negative); RBC Negative (0-2)
== END 2018-12-28 17:23 ==
LOC: LBN 17:03
PROVIDERS: PCP Family Medicine; Visit Provider Family Medicine
DX: R31.9 Hematuria, unspecified (principal)
CPT/HCPCS: 87077; 81003; 81015; 87086; 87186

== ENCOUNTER 2019-01-07 17:00 | Outpatient (REF) | payer MEDICARE, SELFPAY ==
[2019-01-07 19:51] LABS: Bilirubin Negative (Negative); Blood Trace-lysed (Negative); Clarity Clear; Glucose Negative (Negative); Ketones Negative (Negative); Leukocyte Esterase Large (Negative); Nitrite Negative (Negative); Specific Gravity 1.025 (1.005-1.025); Urobilinogen 0.2 EU/dL (Up TO 0.2)
[2019-01-07 20:34] LABS: Bacteria Moderate HPF (Negative); C & S Indicated? Yes; Casts Negative LPF (Negative); Crystals Negative HPF (Negative); Epithelial Cells Rare HPF (Negative); Mucus Moderate (Negative); Other Cells Negative (Negative); RBC 0-2 (0-2)
== END 2019-01-07 17:20 ==
LOC: LBN 17:00
PROVIDERS: PCP Family Medicine; Visit Provider Family Medicine
DX: N39.0 Urinary tract infection, site not specified (principal); Z79.2 Long term (current) use of antibiotics
CPT/HCPCS: 81003; 81015; 87086

== ENCOUNTER 2019-01-11 15:42 | Outpatient (REF) | payer MEDICARE, SELFPAY ==
[2019-01-11 18:13] LABS: Bilirubin Negative (Negative); Blood Negative (Negative); Clarity Cloudy (Clear); Glucose Negative (Negative); Ketones Negative (Negative); Leukocyte Esterase Moderate (Negative); Nitrite Negative (Negative); Urobilinogen 0.2 EU/dL (Up TO 0.2); pH 5.5 (5-8)
[2019-01-11 18:31] LABS: Bacteria Many HPF (Negative); Epithelial Cells Few HPF (Negative); Other Cells Few Transitional (Negative); WBC >50 HPF (0-5)
[2019-01-11 18:32] LABS: C & S Indicated? C&S Done As Ordered; Casts Negative LPF (Negative); Crystals Many Calcium Oxalate HPF (Negative); Mucus Negative (Negative)
== END 2019-01-11 16:02 ==
LOC: LBN 15:42
PROVIDERS: PCP Family Medicine; Visit Provider Family Medicine
DX: R30.0 Dysuria (principal); N39.0 Urinary tract infection, site not specified
CPT/HCPCS: 87077; 81003; 81015; 87086; 87186

== ENCOUNTER 2019-05-30 01:42 | Outpatient (CLI) | payer MEDICARE, SELFPAY ==
--- NOTE | 2019-06-20 09:38 | ZIOP_ITS ---
Date of service: 06/20/19 Time of Service: 09:38 ZIO Patch [employer] Tender Engineer Note: Is a 2-week ZIO patch ordered for the indication of bradycardia. ?Patient was in normal sinus rhythm for the majority of the recording time. ?Patient had 5 runs of supraventricular tachycardia with the longest lasting 7 beats. ?The patient had no episodes of ventricular tachycardia and rare supraventricular ectopic beats. ?The patient had one episode of second-degree Mobitz type I AV block. ?Patient had one pause lasting 5.3 seconds which was likely due to Mobitz type I AV block. ?There were no episodes of atrial fibrillation. ?Patient triggered events were associated with normal sinus rhythm and sinus tachycardia.
== END 2019-05-30 02:02 ==
PROVIDERS: PCP Family Medicine; Visit Provider Family Medicine
DX: R00.1 Bradycardia, unspecified (principal); I47.1 Supraventricular tachycardia; I44.1 Atrioventricular block, second degree
CPT/HCPCS: 0296T

== ENCOUNTER 2019-06-02 12:09 | Outpatient (CLI) | payer MEDICARE, SELFPAY ==
--- NOTE | 2019-06-02 13:00 | DI.RAD_ITS ---
EXAM: XR LUMBAR SPINE COMPLETE INDICATION: back pain, DORSALGIA-M54.9, s/p fall on back 6 months ago. COMPARISON: MR lumbar spine wo from 09/21/2018 CT ABDOMEN AND PELVIS W from 10/14/2018 CT ABDOMEN AND PELVIS W from 10/14/2018 TECHNIQUE: 2D digital imaging was performed. FINDINGS: There has been mild interval worsening of the previously noted T12 compression fracture. The remaini ng vertebral bodies are well maintained in height. The disc spaces are well maintained. No spondylo lysis or spondylolisthesis is seen. IMPRESSION: Mild interval worsening of T12 compression fracture. No new abnormalities.
--- NOTE | 2019-06-02 13:00 | DI.RAD_ITS ---
EXAM: XR THORACIC SPINE COMPLETE INDICATION: back pain, DORSALGIA-M54.9. COMPARISON: XR CHEST 2V PA AND LATERAL from 09/16/2018 XR CHEST 2V PA AND LATERAL from 09/16/2018 CT ABDOMEN AND PELVIS W from 10/14/2018 CT ABDOMEN AND PELVIS W from 10/14/2018 TECHNIQUE: 2D digital imaging was performed. FINDINGS: There is a severe compression fracture of the T12 vertebral body, which may be slightly worse when co mpared with the previous CT. There is some fragmentation anteriorly and approximately 5 millimeters of retropulsion, which appear stable. No additional compression fractures are seen. There is no sco liosis. There are small endplate osteophytes throughout. Visualized portions of the lungs appear cl ear. IMPRESSION: Mild interval worsening of T12 compression fracture, severe.
== END 2019-06-02 12:29 ==
PROVIDERS: PCP Family Medicine; Visit Provider Family Medicine
DX: M54.6 Pain in thoracic spine (principal); M48.54XG Collapsed vertebra, not elsewhere classified, thoracic region, subsequent encounter for fracture with delayed healing; M54.5 Low back pain
CPT/HCPCS: 72072; 72110

== ENCOUNTER 2019-06-20 09:38 | Outpatient (CLI) | payer MEDICARE, SELFPAY | END 2019-06-20 09:58 | PROVIDERS: PCP Family Medicine; Referring Provider Family Medicine; Visit Provider Internal Medicine Cardiovascular Disease | DX: R00.1 Bradycardia, unspecified (principal); I47.1 Supraventricular tachycardia; I44.1 Atrioventricular block, second degree | CPT/HCPCS: 0298T ==

== ENCOUNTER 2019-06-28 13:18 | Outpatient (CLI) | payer MEDICARE, SELFPAY ==
[2019-06-28 13:56] LABS: Bilirubin Negative (Negative); Blood Trace-intact (Negative); Clarity Sl Cloudy (Clear); Glucose Negative (Negative); Ketones Negative (Negative); Leukocyte Esterase Large (Negative); Nitrite Negative (Negative); Urobilinogen 0.2 EU/dL (Up TO 0.2)
[2019-06-28 14:05] LABS: WBC >50 HPF (0-5)
[2019-06-28 14:06] LABS: C & S Indicated? C&S Done As Ordered
[2019-06-28 14:12] LABS: Abs Immature Grans 0.02 k/cumm (0.0-0.09); Absolute Basophil Count 0.04 k/cumm (0.0-0.2); Absolute Eosinophil Count 0.17 k/cumm (0.0-0.7); Absolute Lymphocyte Count 2.14 k/cumm (1.2-3.4); Absolute Monocyte Count 0.95 k/cumm (0.11-0.7); Absolute Neutrophil Count 5.87 k/cumm (1.2-6.7); Basophils % 0.4; Eosinophils % 1.8; HCT 34.9 % (36.0-46.0); HGB 10.9 g/dL (12.0-15.5); Immature Grans % 0.2; Lymphocytes % 23.3; Mean Corp. HGB Concentration 31.2 g/dL (32.0-36.0); Mean Corpuscular Volume 89.7 fL (80-95); Mean Platelet Volume 10.6 fL (8.0-11.0); Monocytes % 10.3; Platelet Count 309 x1000/uL (130-400); RBC 3.89 m/cumm (4.00-5.20); White Blood Cell Count 9.19 k/cumm (4.4-10.8)
[2019-06-28 14:49] LABS: ESR 48 mm/hr (0-30)
[2019-06-28 15:17] LABS: C-Reactive Protein 0.34 mg/dL (0.0-0.3)
[2019-06-28 15:22] LABS: Iron 35 ug/dL (50-170); Total Iron Binding Capacity 326 ug/dL (250-450); Transferrin Sat 11 % (15-50)
[2019-06-28 15:43] LABS: ALT 17 U/L (14-59); AST 13 U/L (15-37); Albumin 3.5 g/dL (3.4-5.0); Alkaline Phosphatase 87 U/L (46-116); Anion Gap 7.6 mmol/L (3-11); BUN 22 mg/dL (7-18); Bilirubin, Total 0.3 mg/dL (0.2-1.0); CO2 32.4 mmol/L (21.0-32.0); CREATININE 0.95 mg/dL (0.55-1.02); Calcium 9.5 mg/dL (8.5-10.1); Chloride 104 mmol/L (98-107); Estimated GFR 57.04 (mL/min/1.73m2); Ferritin 38 ng/mL (8-252); Glucose 86 mg/dL (74-106); Magnesium 1.8 mg/dL (1.8-2.4); Potassium 4.2 mmol/L (3.5-5.1); Sodium 144 mmol/L (136-145); TSH 3.85 uIU/mL (0.36-3.74); Total Protein 7.4 g/dL (6.4-8.2)
== END 2019-06-28 13:38 ==
PROVIDERS: Internal Medicine; PCP Family Medicine; Visit Provider Urology
DX: M35.3 Polymyalgia rheumatica (principal); Z79.899 Other long term (current) drug therapy; R39.9 Unspecified symptoms and signs involving the genitourinary system; E03.9 Hypothyroidism, unspecified; D64.9 Anemia, unspecified; M54.5 Low back pain; E83.42 Hypomagnesemia
CPT/HCPCS: 36415; 80053; 85652; 81003; 81015; 82728; 83540; 83550; 83735; 84443; 85025; 86140; 87086

== ENCOUNTER 2019-08-11 07:00 | Outpatient (CLI) | payer MEDICARE, SELFPAY ==
[2019-08-11 12:39] LABS: Abs Immature Grans 0.01 k/cumm (0.0-0.09); Absolute Basophil Count 0.03 k/cumm (0.0-0.2); Absolute Eosinophil Count 0.04 k/cumm (0.0-0.7); Absolute Lymphocyte Count 1.38 k/cumm (1.2-3.4); Absolute Monocyte Count 0.98 k/cumm (0.11-0.7); Basophils % 0.3; Eosinophils % 0.4; HCT 37.8 % (36.0-46.0); HGB 11.7 g/dL (12.0-15.5); Immature Grans % 0.1 %; Lymphocytes % 12.5; Mean Corpuscular Hemoglobin 27.6 pg (27.0-33.0); Mean Corpuscular Volume 89.2 fL (80-95); Mean Platelet Volume 10.9 fL (8.0-11.0); Monocytes % 8.9; Neutrophils % 77.8; Platelet Count 346 x1000/uL (130-400); RBC 4.24 m/cumm (4.00-5.20); RBC Distribution Width 13.7 % (11.7-14.6); White Blood Cell Count 11.06 k/cumm (4.4-10.8)
[2019-08-11 12:59] LABS: Iron 30 ug/dL (50-170); Total Iron Binding Capacity 300 ug/dL (250-450); Transferrin Sat 10 % (15-50)
[2019-08-11 13:31] LABS: ALT 24 U/L (14-59); AST 15 U/L (15-37); Albumin 3.4 g/dL (3.4-5.0); Alkaline Phosphatase 95 U/L (46-116); Anion Gap 10.1 mmol/L (3-11); BUN 12 mg/dL (7-18); Bilirubin, Total 0.3 mg/dL (0.2-1.0); CO2 30.9 mmol/L (21.0-32.0); CREATININE 0.89 mg/dL (0.55-1.02); Calcium 9.8 mg/dL (8.5-10.1); Chloride 103 mmol/L (98-107); Ferritin 64 ng/mL (8-252); Glucose 116 mg/dL (74-106); Potassium 3.3 mmol/L (3.5-5.1); Sodium 144 mmol/L (136-145); TSH 0.39 uIU/mL (0.36-3.74); Total Protein 7.4 g/dL (6.4-8.2)
== END 2019-08-11 07:20 ==
PROVIDERS: PCP Family Medicine; Visit Provider Family Medicine
DX: E03.9 Hypothyroidism, unspecified (principal); D64.9 Anemia, unspecified; R10.9 Unspecified abdominal pain
CPT/HCPCS: 36415; 80053; 82728; 83540; 83550; 84443; 85025

== ENCOUNTER 2019-09-26 14:18 | Outpatient (CLI) | payer MEDICARE, SELFPAY ==
[2019-09-26 13:21] LABS: ALT 25 U/L (14-59); AST 19 U/L (15-37); Albumin 3.4 g/dL (3.4-5.0); Alkaline Phosphatase 77 U/L (46-116); Anion Gap 7.9 mmol/L (3-11); BUN 16 mg/dL (7-18); Bilirubin, Total 0.3 mg/dL (0.2-1.0); C-Reactive Protein 0.94 mg/dL (0.0-0.3); CO2 32.1 mmol/L (21.0-32.0); CREATININE 0.95 mg/dL (0.55-1.02); Calcium 9.8 mg/dL (8.5-10.1); Chloride 103 mmol/L (98-107); Estimated GFR 56.89 (mL/min/1.73m2); Glucose 101 mg/dL (74-106); Sodium 143 mmol/L (136-145); Total Protein 7.2 g/dL (6.4-8.2)
[2019-09-26 13:33] LABS: ESR 47 mm/hr (0-30)
== END 2019-09-26 14:38 ==
PROVIDERS: PCP Family Medicine; Visit Provider Internal Medicine
DX: R34 Anuria and oliguria (principal); M35.3 Polymyalgia rheumatica; Z79.899 Other long term (current) drug therapy
CPT/HCPCS: 36415; 80053; 85652; 86140

== ENCOUNTER 2019-10-17 03:45 | Outpatient (CLI) | payer MEDICARE, SELFPAY ==
[2019-10-17 14:07] LABS: C-Reactive Protein 1.31 mg/dL (0.0-0.3)
[2019-10-17 14:25] LABS: ESR 55 mm/hr (0-30)
[2019-10-17 14:36] LABS: Anion Gap 7.4 mmol/L (3-11); BUN 14 mg/dL (7-18); CO2 31.6 mmol/L (21.0-32.0); CREATININE 0.93 mg/dL (0.55-1.02); Calcium 11.1 mg/dL (8.5-10.1); Chloride 104 mmol/L (98-107); Estimated GFR 58.31 (mL/min/1.73m2); Glucose 118 mg/dL (74-106); Potassium 4.3 mmol/L (3.5-5.1); Sodium 143 mmol/L (136-145)
== END 2019-10-17 04:05 ==
PROVIDERS: Internal Medicine; PCP Family Medicine; Visit Provider Family Medicine
DX: E87.6 Hypokalemia (principal); M35.3 Polymyalgia rheumatica; Z79.899 Other long term (current) drug therapy
CPT/HCPCS: 36415; 80048; 85652; 86140

== ENCOUNTER 2019-11-02 13:31 | Outpatient (REF) | payer MEDICARE, SELFPAY ==
[2019-11-02 15:10] LABS: Bilirubin Negative (Negative); Blood Negative (Negative); Clarity Clear (Clear); Glucose Negative (Negative); Ketones Negative (Negative); Leukocyte Esterase Trace (Negative); Nitrite Negative (Negative); Urobilinogen 0.2 EU/dL (Up TO 0.2)
[2019-11-02 15:22] LABS: Bacteria Rare HPF (Negative); C & S Indicated? No; Casts Negative LPF (Negative); Crystals Negative HPF (Negative); Epithelial Cells Rare HPF (Negative); Mucus Negative (Negative); Other Cells Negative (Negative); RBC Negative HPF (0-2); WBC 0-2 HPF (0-5)
== END 2019-11-02 13:51 ==
LOC: LBN 13:31
PROVIDERS: PCP Family Medicine; Visit Provider Family Medicine
DX: N39.0 Urinary tract infection, site not specified (principal)
CPT/HCPCS: 81003; 81015

== ENCOUNTER 2019-11-23 02:21 | Outpatient (CLI) | payer MEDICARE, SELFPAY ==
[2019-11-23 12:16] LABS: Abs Immature Grans 0.05 k/cumm (0.0-0.09); Absolute Basophil Count 0.03 k/cumm (0.0-0.2); Absolute Eosinophil Count 0.07 k/cumm (0.0-0.7); Absolute Monocyte Count 1.44 k/cumm (0.11-0.7); Absolute Neutrophil Count 10.15 k/cumm (1.2-6.7); Basophils % 0.2; Eosinophils % 0.5; HCT 39.3 % (36.0-46.0); HGB 12.7 g/dL (12.0-15.5); Immature Grans % 0.4 %; Lymphocytes % 16.7; Mean Corp. HGB Concentration 32.3 g/dL (32.0-36.0); Mean Corpuscular Hemoglobin 28.9 pg (27.0-33.0); Mean Corpuscular Volume 89.5 fL (80-95); Mean Platelet Volume 10.3 fL (8.0-11.0); Monocytes % 10.2; Platelet Count 331 x1000/uL (130-400); RBC 4.39 m/cumm (4.00-5.20); RBC Distribution Width 14.5 % (11.7-14.6)
[2019-11-23 12:18] LABS: Bilirubin Negative (Negative); Blood Negative (Negative); Clarity Clear (Clear); Glucose Negative (Negative); Ketones Negative (Negative); Leukocyte Esterase Trace (Negative); Nitrite Negative (Negative); Specific Gravity 1.025 (1.005-1.025); Urobilinogen 0.2 EU/dL (Up TO 0.2)
[2019-11-23 12:25] LABS: Absolute Lymphocyte Count 2.35 k/cumm (1.2-3.4)
[2019-11-23 12:34] LABS: Epithelial Cells Moderate HPF (Negative); RBC Negative HPF (0-2); WBC 0-2 HPF (0-5)
[2019-11-23 12:35] LABS: Bacteria Few HPF (Negative); C & S Indicated? No/Sq. Contamination; Crystals Negative HPF (Negative); Mucus Trace (Negative)
[2019-11-23 12:57] LABS: ESR 39 mm/hr (0-30)
[2019-11-23 13:45] LABS: ALT 30 U/L (14-59); AST 15 U/L (15-37); Albumin 3.3 g/dL (3.4-5.0); Alkaline Phosphatase 89 U/L (46-116); Anion Gap 7.2 mmol/L (3-11); BUN 19 mg/dL (7-18); Bilirubin, Total 0.2 mg/dL (0.2-1.0); C-Reactive Protein 1.54 mg/dL (0.0-0.3); CO2 32.8 mmol/L (21.0-32.0); Calcium 10.8 mg/dL (8.5-10.1); Chloride 103 mmol/L (98-107); Glucose 103 mg/dL (74-106); Potassium 3.6 mmol/L (3.5-5.1); Sodium 143 mmol/L (136-145); Total Protein 7.1 g/dL (6.4-8.2); Uric Acid 8.6 mg/dL (2.6-6.0)
== END 2019-11-23 02:41 ==
PROVIDERS: PCP Family Medicine; Visit Provider Internal Medicine
DX: M35.3 Polymyalgia rheumatica (principal); Z79.899 Other long term (current) drug therapy; R50.9 Fever, unspecified
CPT/HCPCS: 36415; 80053; 85652; 81003; 81015; 84550; 85025; 86140

== ENCOUNTER 2019-12-05 12:18 | Outpatient (REF) | payer MEDICARE, SELFPAY ==
[2019-12-09 02:08] LABS: 2-Hydroxy Ethyl Flurazepam Not Detected ng/mL (Cutoff: 10); 6-monoacetylmorphine Not Detected ng/mL (Cutoff: 25); Alpha-Hydroxy Midazolam Not Detected ng/mL (Cutoff: 10); Alpha-Hydroxy Triazolam Not Detected ng/mL (Cutoff: 10); Alpha-Hydroxyalprazolam Not Detected ng/mL (Cutoff: 10); Alpha-OH-alprazolam Glucuronid Not Detected ng/mL (Cutoff: 50); Alprazolam Not Detected ng/mL (Cutoff: 10); Amphetamines Negative ng/mL (Cutoff: 500); Barbiturates Negative ng/mL (Cutoff: 200); Buprenorphine Not Detected ng/mL (Cutoff: 5); Chlordiazepoxide Not Detected ng/mL (Cutoff: 10); Clobazam Not Detected ng/mL (Cutoff: 10); Clonazepam Not Detected ng/mL (Cutoff: 10); Cocaine Negative ng/mL (Cutoff: 150); Codeine Not Detected ng/mL (Cutoff: 25); Comment Normal; Creatinine, U 75.1 mg/dL; Diazepam Not Detected ng/mL (Cutoff: 10); Dihydrocodeine Not Detected ng/mL (Cutoff: 25); EDDP Not Detected ng/mL (Cutoff: 25); Fentanyl Not Detected ng/mL (Cutoff: 2); Flurazepam Not Detected ng/mL (Cutoff: 10); Hydrocodone Not Detected ng/mL (Cutoff: 25); Hydromorphone Not Detected ng/mL (Cutoff: 25); Hydromorphone-3-beta-glucuroni Not Detected ng/mL (Cutoff: 100); Lorazepam Not Detected ng/mL (Cutoff: 10); Lorazepam Glucuronide Not Detected ng/mL (Cutoff: 50); Meperidine Not Detected ng/mL (Cutoff: 25); Methadone Not Detected ng/mL (Cutoff: 25); Midazolam Not Detected ng/mL (Cutoff: 10); Morphine Not Detected ng/mL (Cutoff: 25); N-Desmethylclobazam Not Detected ng/mL (Cutoff: 200); N-desmethyltapentadol Not Detected ng/mL (Cutoff: 50); Naloxone Not Detected ng/mL (Cutoff: 25); Norbuprenorphine Not Detected ng/mL (Cutoff: 5); Norfentanyl Not Detected ng/mL (Cutoff: 2); Norhydrocodone Not Detected ng/mL (Cutoff: 25); Normeperidine Not Detected ng/mL (Cutoff: 25); Noroxycodone Present ng/mL (Cutoff: 25); Noroxymorphone Not Detected ng/mL (Cutoff: 25); O-desmethyltramadol Not Detected ng/mL (Cutoff: 25); Oxazepam Glucuronide Not Detected ng/mL (Cutoff: 50); Phencyclidine Negative ng/mL (Cutoff: 25); Prazepam Not Detected ng/mL (Cutoff: 10); Propoxyphene Not Detected ng/mL (Cutoff: 25); Specific Gravity 1.014; Tapentadol Not Detected ng/mL (Cutoff: 25); Temazepam Not Detected ng/mL (Cutoff: 10); Temazepam Glucuronide Not Detected ng/mL (Cutoff: 50); Tetrahydrocannabinol Negative ng/mL (Cutoff: 50); Tramadol Not Detected ng/mL (Cutoff: 25); Triazolam Not Detected ng/mL (Cutoff: 10); Zolpidem Phenyl-4-Carboxy acid Present ng/mL (Cutoff: 10); pH 6.1
== END 2019-12-05 12:38 ==
LOC: LBN 12:18
PROVIDERS: PCP Family Medicine; Visit Provider Nurse Practitioner Family
DX: Z79.899 Other long term (current) drug therapy (principal)
CPT/HCPCS: 80307; 80347; 80364

== ENCOUNTER 2020-04-30 08:49 | Outpatient (CLI) | payer MEDICARE, SELFPAY ==
[2020-05-02 03:06] LABS: Patient Race White; SARS-CoV-2 RNA Undetected (Undetected); SARS-CoV-2 Specimen Source Nasopharynx
== END 2020-04-30 09:09 ==
PROVIDERS: PCP Family Medicine; Visit Provider Family Medicine
DX: R05 Cough (principal); R11.10 Vomiting, unspecified
CPT/HCPCS: U0003

== ENCOUNTER 2020-05-04 14:50 | Outpatient (CLI) | payer MEDICARE, SELFPAY ==
[2020-05-04 15:43] LABS: Abs Immature Grans 0.02 10^3/uL (0.0-0.06); Absolute Basophil Count 0.04 10^3/uL (0.0-0.2); Absolute Eosinophil Count 0.07 10^3/uL (0.0-0.7); Absolute Lymphocyte Count 1.76 10^3/uL (1.2-3.4); Absolute Monocyte Count 0.64 10^3/uL (0.1-0.8); Absolute Neutrophil Count 4.18 10^3/uL (1.2-6.7); Basophils % 0.6; HCT 36.6 % (36.0-46.0); HGB 11.6 g/dL (11.2-15.7); Immature Grans % 0.3; Lymphocytes % 26.2; MCH 28.6 pg (27.0-33.0); MCHC 31.7 % (32.0-36.0); MCV 90.4 fL (80-95); MPV 10.7 fL (8.0-11.0); Monocytes % 9.5; Neutrophils % 62.4; Nucleated RBC 0 %; Platelet Count 225 10^3/uL (130-400); RBC 4.05 10^6/uL (3.93-5.22); RDW 13.3 % (11.7-14.6); RDW-SD 43.8 fL; WBC 6.71 10^3/uL (4.4-10.8)
[2020-05-04 15:58] LABS: ALT 26 U/L (14-59); AST 25 U/L (15-37); Albumin 3.6 g/dL (3.4-5.0); Alkaline Phosphatase 69 U/L (46-116); Anion Gap 6.6 mmol/L (3-11); BUN 14 mg/dL (7-18); Bilirubin, Total 0.3 mg/dL (0.2-1.0); CO2 29.4 mmol/L (21.0-32.0); CREATININE 0.81 mg/dL (0.55-1.02); Calcium 10.8 mg/dL (8.5-10.1); Chloride 105 mmol/L (98-107); Glucose 112 mg/dL (74-106); Sodium 141 mmol/L (136-145); Total Protein 7.3 g/dL (6.4-8.2); Uric Acid 7.9 mg/dL (2.6-6.0)
== END 2020-05-04 15:10 ==
PROVIDERS: PCP Family Medicine; Visit Provider Internal Medicine
DX: M25.50 Pain in unspecified joint (principal); M10.9 Gout, unspecified; R50.9 Fever, unspecified
CPT/HCPCS: 36415; 80053; 84550; 85025; 86140

== ENCOUNTER 2020-05-15 02:31 | Outpatient (CLI) | payer MEDICARE, SELFPAY ==
[2020-05-15 11:45] LABS: Abs Immature Grans 0.02 10^3/uL (0.0-0.06); Absolute Basophil Count 0.05 10^3/uL (0.0-0.2); Absolute Eosinophil Count 0.14 10^3/uL (0.0-0.7); Absolute Lymphocyte Count 2.44 10^3/uL (1.2-3.4); Absolute Monocyte Count 1.08 10^3/uL (0.1-0.8); Absolute Neutrophil Count 4.13 10^3/uL (1.2-6.7); Basophils % 0.6; Eosinophils % 1.8; Immature Grans % 0.3; MCH 28.5 pg (27.0-33.0); MCHC 31.6 % (32.0-36.0); MCV 90.3 fL (80-95); MPV 11.3 fL (8.0-11.0); Monocytes % 13.7; Neutrophils % 52.6; Nucleated RBC 0 %; Platelet Count 222 10^3/uL (130-400); RBC 4.21 10^6/uL (3.93-5.22); RDW 13.6 % (11.7-14.6); RDW-SD 44.9 fL; WBC 7.86 10^3/uL (4.4-10.8)
[2020-05-15 12:43] LABS: ALT 31 U/L (14-59); AST 24 U/L (15-37); Albumin 3.7 g/dL (3.4-5.0); Alkaline Phosphatase 81 U/L (46-116); Anion Gap 6.5 mmol/L (3-11); BUN 16 mg/dL (7-18); Bilirubin, Total 0.4 mg/dL (0.2-1.0); C-Reactive Protein 1.39 mg/dL (0.0-0.3); CO2 29.5 mmol/L (21.0-32.0); CREATININE 0.72 mg/dL (0.55-1.02); Calcium 10.4 mg/dL (8.5-10.1); Chloride 104 mmol/L (98-107); Glucose 91 mg/dL (74-106); Potassium 3.9 mmol/L (3.5-5.1); Sodium 140 mmol/L (136-145); Total Protein 7.4 g/dL (6.4-8.2); Uric Acid 6.7 mg/dL (2.6-6.0)
[2020-05-15 14:08] LABS: Bilirubin Negative (Negative); Blood Negative (Negative); Clarity Clear (Clear); Glucose Negative (Negative); Ketones Negative (Negative); Leukocyte Esterase Small (Negative); Nitrite Negative (Negative); Specific Gravity 1.025 (1.005-1.025); Urobilinogen 0.2 EU/dL (Up TO 0.2)
[2020-05-15 14:25] LABS: Epithelial Cells Many HPF (Negative); Other Cells Few Transitional (Negative)
[2020-05-15 14:26] LABS: Crystals Negative HPF (Negative); Mucus Trace (Negative)
[2020-05-15 14:27] LABS: C & S Indicated? No/Sq. Contamination
== END 2020-05-15 02:51 ==
PROVIDERS: PCP Family Medicine; Visit Provider Internal Medicine
DX: E83.52 Hypercalcemia (principal); R50.9 Fever, unspecified
CPT/HCPCS: 36415; 80053; 81003; 81015; 84550; 85025; 86140

== ENCOUNTER 2020-07-11 18:11 | Outpatient (REF) | payer MEDICARE, SELFPAY ==
[2020-07-11 22:55] LABS: ALT 27 U/L (14-59); AST 26 U/L (15-37); Albumin 3.6 g/dL (3.4-5.0); Alkaline Phosphatase 88 U/L (46-116); Anion Gap 8.6 mmol/L (3-11); BUN 20 mg/dL (7-18); Bilirubin, Total 0.4 mg/dL (0.2-1.0); CO2 27.4 mmol/L (21.0-32.0); CREATININE 1.42 mg/dL (0.55-1.02); Calcium 10.6 mg/dL (8.5-10.1); Chloride 104 mmol/L (98-107); Estimated GFR 35.78 (mL/min/1.73m2); Glucose 99 mg/dL (74-106); Potassium 4.3 mmol/L (3.5-5.1); Sodium 140 mmol/L (136-145); Total Protein 7.7 g/dL (6.4-8.2)
== END 2020-07-11 18:31 ==
LOC: LBN 18:11
PROVIDERS: PCP Family Medicine; Visit Provider Physician Assistant
DX: M10.9 Gout, unspecified (principal); R39.11 Hesitancy of micturition
CPT/HCPCS: 80053; 84550; 87086

== ENCOUNTER 2020-07-13 13:34 | Emergency (ER) | payer MEDICARE, SELFPAY ==
[2020-07-13 13:39] VITALS: BP 142/59; PULSE 88; RESP 18; TEMP 36.7; O2SAT 96
--- NOTE | 2020-07-13 13:51 | ED.GENADUL_ITS ---
Discharge Plan Disposition Patient Disposition: HOME Condition: Good Discharge Details Clinical Impression: Urinary tract infection Primary Care Provider: Liz Granado ED Provider: Huang Kern Home Meds and New Rx's Prescriptions: New cephalexin [Keflex] 500 mg capsule 500 mg PO QID 7 Days Qty: 28 RF: 0 Continued calcium carbonate-vitamin D3 [Caltrate with Vitamin D3] 600 mg(1,500mg) -800 unit tablet 1 tab PO DAILY RF: 0 docusate sodium 50 mg capsule 50 mg PO DAILY PRNRF: 0 lisinopril 10 mg tablet 10 mg PO DAILY Qty: 30 RF: 0 colchicine [Colcrys] 0.6 mg tablet 0.6 mg PO BID Qty: 10 RF: 0 nystatin 100,000 unit/gram powder 1 applic topical DAILY PRN (Reason: use under folds) Qty: 30 RF: 0 multivitamin [One Daily Multivitamin] tablet 1 tab PO BID RF: 0 ascorbate calcium (vitamin C) 500 mg tablet 500 mg PO DAILY RF: 0 cyanocobalamin (vitamin B-12) 500 mcg tablet 500 mcg PO DAILY RF: 0 folic acid 1 mg tablet 1 mg PO DAILY Qty: 90 RF: 4 nystatin 100,000 unit/gram powder 1 applic TP BID PRN (Reason: tinea) Qty: 60 RF: 3 potassium chloride 20 mEq packet 20 meq PO BID Qty: 100 RF: 2 furosemide 20 mg tablet 20 mg PO DAILY Qty: 90 RF: 1 Hold Instructions: Home Medication placed on hold at Doctor's office allopurinol 100 mg tablet 50 mg PO DAILY Qty: 30 RF: 0 ferrous gluconate 324 mg (38 mg iron) tablet 324 mg PO TID Qty: 90 RF: 6 levothyroxine 150 mcg capsule 150 mcg PO DAILY Qty: 90 RF: 1 magnesium chloride [Mag 64] 64 mg tablet,delayed release (DR/EC) 64 mg PO BID Qty: 180 RF: 3 tizanidine 4 mg tablet 4 mg PO TID PRN (Reason: muscle spasticity) Qty: 30 RF: 3 zolpidem [Ambien CR] 12.5 mg tablet,ext release multiphase 12.5 mg PO QHS Qty: 30 RF: 4 oxycodone 5 mg tablet 5 mg PO Q8H MDD 15 mg PRN (Reason: pain) Qty: 30 RF: 0 Medrol 2 mg tablet 1 mg PO DAILY RF: 0 Discharge Instructions Instructions: Urinary Tract Infection in Women (ED) Additional Instructions: At this time you have evidence of a mild urinary tract infection. Please take the antibiotic as directed. Please take no [id number] cranberry supplement and drink plenty of fluids. Please follow-up closely with your primary care provider for reassessment. If you do develop continued urinary tract infection you may require further evaluation for potential bladder prolapse. If you notice any worsening of your symptoms, or any new symptoms such as vomiting, diarrhea, fever, chills, shortness of breath, chest pain, numbness, weakness, or fainting , please return immediately to the emergency department for reevaluation. Please follow up with your primary care provider as soon as possible for reassessment and reevaluation. As always, it was a pleasure participating in your medical care today. Referrals: Liz Granado MD [Primary Care Provider] - Medical Decision Making 79-year-old female with a past medical history of colectomy secondary to colonoscopy complication, gout, presents today for urinary frequency. Patient was seen and assessed yesterday by Amelia at the urgent care, she had a gout exacerbation at that time, she was switched to colchicine, and has had a notable improvement of her symptoms. At that time she also noticed some mild frequency, urinalysis showed leukocyte Estrace, but she wanted to defer until cultures have returned. She returns today, her foot feels great however she continues to have mild difficulty and pain with the urination. She denies any blood, fever, chills or other complaints. She does have a history of kidney stones in the distant past. Physical exam demonstrates no significant flank or CVA tenderness, no evidence of vital sign abnormality or sepsis. Laboratory work-up demonstrates no white count bandemia or left shift. Electrolytes and renal function are good. Renal urinalysis shows small leuk esterase, too many epithelial cells to the WBC count, no RBCs present though. Patient's cultures show evidence of mixed gram-positive kareem. CT scan was ordered which shows no evidence of renal stone or other abnormality per virtual radiology. Patient feels notably comfortable. Symptoms appear consistent with urinary tract infection, will give Keflex for home use recommend continued fluids and cranberry concentrate. Discussed red flags which to return. I have extensively reviewed the treatment plan and discharge instructions with the patient. I have addressed all patient concerns at this time. The patient was made aware of what symptoms to monitor for that would warrant a return to the emergency department. Discussed the plan with the patient, they demonstrate verbal understanding and agreement with our assessment and plan at this time. FINDINGS: Lungs: Bullous changes in the right middle lobe and the lateral right lower lobe are stable. The remainder of the visualized lower lung martínez are otherwise clear. Heart: Dense mitral annular calcifications. Liver: Mild generalized hepatic steatosis with nodular features suggestive of cirrhosis of the liver. Gallbladder and bile ducts: Normal. No calcified stones. No ductal dilation. Pancreas: Normal. No ductal dilation. Spleen: Normal. No splenomegaly. Adrenal glands: Normal. No mass. Kidneys and ureters: Increased size of posterior right renal simple cyst. No renal, ureteric, or urinary bladder calculus. No hydronephrosis. Stomach and bowel: Stable postoperative changes of partial distal colectomy with left lower quadrant end colostomy and ileo-colonic anastomosis in the pelvis. Small parastomal hernia with omentum within but no evidence for distal colonic distress. Mild rectus diastasis at the umbilicus with a loop of transverse colon within but no evidence for bowel wall thickening, obstruction or bowel distress at this time. Appendix: No evidence of appendicitis. Intraperitoneal space: Unremarkable. No free air. No significant fluid collection. Vasculature: Unremarkable. No abdominal aortic aneurysm. Lymph nodes: Unremarkable. No enlarged lymph nodes. Urinary bladder: Unremarkable as visualized. Reproductive: Uterus and ovaries have been surgically removed. Bones/joints: Progressive flattening of the T12 vertebral body with stable retropulsion of superior posterior endplate into the thecal sac. Superior T11 endplate deformity. No new wedge compression fracture. Soft tissues: Unremarkable. IMPRESSION: No renal, ureteric, or urinary bladder calculus. No hydronephrosis. Thank you for allowing us to participate in the care of your patient. Dictated and Authenticated by: Catalino Hinton MD 07/13/2020 3:03 PM Eastern Time ([place] & [place]) HPI General Date/Time Provider Initiated Documentation: 07/13/20 13:38 . HPI Narrative: 79-year-old female with a past medical history of colectomy secondary to colonoscopy complication, gout, presents today for urinary frequency. Patient was seen and assessed yesterday by Amelia at the urgent care, she had a gout exacerbation at that time, she was switched to colchicine, and has had a notable improvement of her symptoms. At that time she also noticed some mild frequency, urinalysis showed leukocyte Estrace, but she wanted to defer until cultures have returned. She returns today, her foot feels great however she continues to have mild difficulty and pain with the urination. She denies any blood, fever, chills or other complaints. She does have a history of kidney stones in the distant past. Related Data Home Medications Medication Instructions Recorded Confirmed calcium carbonate-vitamin D3 600 1 tab PO DAILY tab 08/02/18 07/02/20 mg (1,500 mg)-800 unit tablet multivitamin 1 tab PO BID tab 08/06/18 07/11/20 nystatin 100,000 unit/gram topical 1 applic TP BID PRN #60 gm 01/27/19 07/11/20 powder docusate sodium 50 mg capsule 50 mg PO DAILY PRN 07/27/19 07/02/20 ascorbate calcium (vitamin C) 500 500 mg PO DAILY 08/22/19 07/11/20 mg tablet cyanocobalamin (vitamin B-12) 500 500 mcg PO DAILY 08/22/19 07/11/20 mcg tablet potassium chloride 20 mEq oral 20 meq PO BID #100 each 09/26/19 07/11/20 packet furosemide 20 mg tablet 20 mg PO DAILY #90 tab 10/07/19 07/11/20 allopurinol 100 mg tablet 50 mg PO DAILY #30 tab 12/18/19 07/11/20 ferrous gluconate 324 mg (38 mg 324 mg PO TID #90 tab 12/19/19 07/11/20 iron) tablet folic acid 1 mg tablet 1 mg PO DAILY #90 tab-cap 01/11/20 07/11/20 levothyroxine 150 mcg capsule 150 mcg PO DAILY #90 cap 03/02/20 07/11/20 magnesium chloride 64 mg 64 mg PO BID #180 tab 04/19/20 07/11/20 (magnesium chloride) tablet,delayed release tizanidine 4 mg tablet 4 mg PO TID PRN #30 tab 05/15/20 07/11/20 methylprednisolone 2 mg tablet 1 mg PO DAILY tab 06/04/20 07/11/20 zolpidem 12.5 mg tablet,extended 12.5 mg PO QHS #30 tab 06/13/20 07/11/20 release,multiphase oxycodone 5 mg tablet 5 mg PO Q8H PRN #30 tab MDD 15 mg 06/25/20 07/11/20 lisinopril 10 mg tablet 10 mg PO DAILY #30 tab 07/02/20 07/11/20 colchicine 0.6 mg tablet 0.6 mg PO BID #10 tab 07/11/20 07/11/20 nystatin 100,000 unit/gram topical 1 applic TOPICAL DAILY PRN #30 g 07/12/20 07/12/20 powder cephalexin [Keflex] 500 mg PO QID 7 Days #28 cap 07/13/20 Previous Rx's Medication Instructions Recorded nystatin 100,000 unit/gram topical 1 applic TP BID PRN #60 gm 01/27/19 powder potassium chloride 20 mEq oral 20 meq PO BID #100 each 09/26/19 packet furosemide 20 mg tablet 20 mg PO DAILY #90 tab 10/07/19 allopurinol 100 mg tablet 50 mg PO DAILY #30 tab 12/18/19 ferrous gluconate 324 mg (38 mg 324 mg PO TID #90 tab 12/19/19 iron) tablet folic acid 1 mg tablet 1 mg PO DAILY #90 tab-cap 01/11/20 levothyroxine 150 mcg capsule 150 mcg PO DAILY #90 cap 03/02/20 magnesium chloride 64 mg 64 mg PO BID #180 tab 04/19/20 (magnesium chloride) tablet,delayed release tizanidine 4 mg tablet 4 mg PO TID PRN #30 tab 05/15/20 zolpidem 12.5 mg tablet,extended 12.5 mg PO QHS #30 tab 06/13/20 release,multiphase oxycodone 5 mg tablet 5 mg PO Q8H PRN #30 tab MDD 15 mg 06/25/20 lisinopril 10 mg tablet 10 mg PO DAILY #30 tab 07/02/20 colchicine 0.6 mg tablet 0.6 mg PO BID #10 tab 07/11/20 nystatin 100,000 unit/gram topical 1 applic TOPICAL DAILY PRN #30 g 07/12/20 powder cephalexin [Keflex] 500 mg PO QID 7 Days #28 cap 07/13/20 Allergies Allergy/AdvReac Type Severity Reaction Status Date / Time banana Allergy Intermediate Other (See Verified 07/13/20 14:03 Comment) cucumber Allergy Intermediate Other (See Verified 07/13/20 14:03 Comment) chloramphenicol AdvReac Severe KIDNEY Verified 07/13/20 14:03 FAILURE tetracycline AdvReac Severe KIDNEY Verified 07/13/20 14:03 FAILURE melon AdvReac Intermediate Cantaloupe-Abd Verified 07/13/20 14:03 pain, diarrhea ADHESIVE TAPE Allergy Intermediate takes skin Uncoded 07/13/20 14:03 off SUTURE MATERIAL Allergy Intermediate Purluent Uncoded 07/13/20 14:03 Drainage General JOSHUA: 3 Review of Systems All systems reviewed & are unremarkable except as noted in HPI and below PFSH Medical History Depressive disorder Excessive sweating (06/02/16) daytime sweating if >74 degrees/ fatigue normal cbc, spep,echocardiogram,sed.rate,cmp Gout Hypokalemia Hypothyroidism (04/05/12) Increased body mass index Insomnia Leukocytosis Medical cannabis use Memory impairment (06/18/94) H/O closed head injury w/ result in memory difficulties, word findig problems 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 to Prednisone Primary osteoarthritis of left knee (07/30/15) Rectovaginal fistula T12 burst fracture Tuberculosis Surgical History Abdominal hysterectomy (~1975) Appendectomy Bilateral salpingectomy with oophorectomy (~1975) Colonoscopy - MAC ADENOMA COLON POLYPS 1997, NONE ON MULTIPLE SUBSEQUENT COLONOSCOPIES, MOST RECENT C-SCOPE 2005 WAS NORMAL, 2018 - cecal polyp, diverticulosis EGD - MAC (~2003) MILD EROSIVE ESOPHAGITIS, NO PINON'S ON BIOPSY H/O dilation and curettage H/O partial resection of colon Sigmoid colon resection 06/28/18 Laparoscopic, Ovarian Cystectomy B/L Rotator Cuff Repair B/L S/P tonsillectomy Family History Mother , in her 80s from pneumonia Heart disease Pneumonia Father , from complications of prostate surgery in his 80s Stroke Personal history of malignant neoplasm Heart disease Brother , aged 68 Alcohol abuse Cirrhosis with alcoholism Grandfather Essential hypertension Heart disease Grandmother Personal history of malignant neoplasm Stroke Grandmother Personal history of malignant neoplasm Son , from his drinking/SA; her oldest child Alcohol abuse Social History Smoking/Tobacco Use Status: Former Tobacco Use Smoking risk assessment performed?: Yes Alcohol Intake: current Alcohol Intake frequency: a few times a month Alcohol type: hard liquor Drug use: Never Substance use type: does not use Household members: other 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 3.ENT: Atraumatic external nose and ears. Moist MM. Neck: Symmetric, trachea midline, No thyromegaly. 4.CVS: +S1/S2, No murmurs or gallops. Peripheral pulses 2+ and equal in all extremities. Brisk capillary refill in all extremities. 5.RESP: Unlabored respiratory effort. Clear to auscultation bilaterally. No wheezes rales or rhonchi 6.GI: Soft, Nontender/Nondistended, No hepatosplenomegaly. No guarding or rebound. No significant flank or CVA tenderness. Colostomy bag in place no complications. 7.MSK: Normocephalic/Atraumatic, Extremities w/o deformity or ttp No cyanosis or clubbing, Normal movement of all extremities 8.Skin: Warm, Dry. No rashes or lesions. 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 Sensation grossly intact, no focal neurologic deficits. 10.Psych: (AAO) x3. Appropriate mood and affect
[2020-07-13 14:07] LABS: Bilirubin Negative (Negative); Blood Negative (Negative); Clarity Sl Cloudy (Clear); Glucose Negative (Negative); Ketones Negative (Negative); Leukocyte Esterase Small (Negative); Nitrite Negative (Negative); Specific Gravity 1.015 (1.005-1.025); Urobilinogen 0.2 EU/dL (Up TO 0.2)
[2020-07-13 14:15] LABS: C & S Indicated? No/Sq. Contamination; Epithelial Cells Many HPF (Negative)
[2020-07-13 14:26] LABS: Abs Immature Grans 0.02 10^3/uL (0.0-0.06); Absolute Basophil Count 0.03 10^3/uL (0.0-0.2); Absolute Lymphocyte Count 1.55 10^3/uL (1.2-3.4); Absolute Monocyte Count 0.75 10^3/uL (0.1-0.8); Absolute Neutrophil Count 5.19 10^3/uL (1.2-6.7); Basophils % 0.4; Eosinophils % 1.3; HCT 36.3 % (36.0-46.0); HGB 11.9 g/dL (11.2-15.7); Immature Grans % 0.3; Lymphocytes % 20.3; MCH 29.3 pg (27.0-33.0); MCHC 32.8 % (32.0-36.0); MCV 89.4 fL (80-95); MPV 11.1 fL (8.0-11.0); Monocytes % 9.8; Neutrophils % 67.9; Nucleated RBC 0 %; Platelet Count 258 10^3/uL (130-400); RBC 4.06 10^6/uL (3.93-5.22); RDW 13.2 % (11.7-14.6); RDW-SD 43.3 fL; WBC 7.64 10^3/uL (4.4-10.8)
--- NOTE | 2020-07-13 14:33 | DI.CT_ITS ---
EXAM: CT RENAL COLIC WO CLINICAL HISTORY: hx of stones, has urinary hesitency and difficulty. TECHNIQUE: Imaging Protocol: Axial computed tomography images with coronal and sagittal reformatted images were created and reviewed. CONTRAST MATERIAL: Noncontrast COMPARISON: CT CT ABDOMEN PELVIS W from 10/14/[address] ABDOMEN PELVIS W from 10/14/2018 CR XR LUMBAR SPINE COMPLETE from 06/02/2019 FINDINGS: ABDOMEN: Lung Bases: Bullae. Liver: Mild hepatic steatosis. Nodular contour which could indicate cirrhosis.. No measurable mass. Gallbladder and biliary tract: No radiodense calculus or dilation. Pancreas: Normal density, no abnormal calcifications or inflammatory process. Spleen: Normal. Kidneys: Normal size, contour and axis. No radiodense stones or obstructive uropathy. No masses seen. Right renal cysts. Adrenal glands: No masses seen. Abdominal Aorta: Abdominal portion non-dilated. PELVIS: Bladder: Symmetric distention, no gross wall thickening. Status post hysterectomy. Bowel: Partial colectomy left lower quadrant colostomy. Small parastomal hernia containing omental f at. Ileocolic anastomosis appears intact.. No obstruction or bowel wall thickening. Peritoneal cavity: No ascites, collection or mesenteric inflammatory response. Bones: Severe T12 compression fracture with stable retropulsion.. IMPRESSION: Post surgical changes of the colon with left-sided colostomy. No inflammatory changes. No evidence of urinary tract calculi or hydronephrosis. RADIATION DOSE DELIVERED: 770.52mGy.cm Total DLP DATA REPOSITORY: All CT scans at this facility are submitted to the National Radiology Data Registry (NRDR) Dose Index Registry (DIR) with the [employer] (ACR). RADIATION OPTIMIZATION: All CT scans at this facility use at least one of these dose optimization te chniques: automated exposure control; mA and/or kV adjustment per patient size (includes targeted exa ms where dose is matched to clinical indication); or iterative reconstruction.
[2020-07-13 14:39] LABS: ALT 28 U/L (14-59); AST 25 U/L (15-37); Albumin 3.3 g/dL (3.4-5.0); Alkaline Phosphatase 76 U/L (46-116); BUN 19 mg/dL (7-18); Bilirubin, Total 0.3 mg/dL (0.2-1.0); CREATININE 1.02 mg/dL (0.55-1.02); Calcium 9.5 mg/dL (8.5-10.1); Chloride 104 mmol/L (98-107); Estimated GFR 52.41 (mL/min/1.73m2); Glucose 101 mg/dL (74-106); Potassium 3.8 mmol/L (3.5-5.1); Sodium 138 mmol/L (136-145); Total Protein 7.9 g/dL (6.4-8.2)
--- NOTE | 2020-07-13 15:03 | DI.VRAD_ITS ---
PROCEDURE INFORMATION: Exam: CT Abdomen And Pelvis Without Contrast Exam date and time: 07/13/2020 2:33 PM Age: 79 years old Clinical indication: Abdominal pain; Flank; Left lower quadrant (llq); Patient HX: HX of stones, has urinary hesitency. And difficulty. TECHNIQUE: Imaging protocol: Computed tomography of the abdomen and pelvis without contrast. Radiation optimization: All CT scans at this facility use at least one of these dose optimization techniques: automated exposure control; mA and/or kV adjustment per patient size (includes targeted exams where dose is matched to clinical indication); or iterative reconstruction. COMPARISON: CT ABDOMEN PELVIS W 10/14/2018 4:08 PM FINDINGS: Lungs: Bullous changes in the right middle lobe and the lateral right lower lobe are stable. The remainder of the visualized lower lung martínez are otherwise clear. Heart: Dense mitral annular calcifications. Liver: Mild generalized hepatic steatosis with nodular features suggestive of cirrhosis of the liver. Gallbladder and bile ducts: Normal. No calcified stones. No ductal dilation. Pancreas: Normal. No ductal dilation. Spleen: Normal. No splenomegaly. Adrenal glands: Normal. No mass. Kidneys and ureters: Increased size of posterior right renal simple cyst. No renal, ureteric, or urinary bladder calculus. No hydronephrosis. Stomach and bowel: Stable postoperative changes of partial distal colectomy with left lower quadrant end colostomy and ileo-colonic anastomosis in the pelvis. Small parastomal hernia with omentum within but no evidence for distal colonic distress. Mild rectus diastasis at the umbilicus with a loop of transverse colon within but no evidence for bowel wall thickening, obstruction or bowel distress at this time. Appendix: No evidence of appendicitis. Intraperitoneal space: Unremarkable. No free air. No significant fluid collection. Vasculature: Unremarkable. No abdominal aortic aneurysm. Lymph nodes: Unremarkable. No enlarged lymph nodes. Urinary bladder: Unremarkable as visualized. Reproductive: Uterus and ovaries have been surgically removed. Bones/joints: Progressive flattening of the T12 vertebral body with stable retropulsion of superior posterior endplate into the thecal sac. Superior T11 endplate deformity. No new wedge compression fracture. Soft tissues: Unremarkable. IMPRESSION: No renal, ureteric, or urinary bladder calculus. No hydronephrosis. Dictated and Authenticated by: Catalino Hinton MD. Ordering:LEONOR Encinas MD
--- NOTE | 2020-07-13 15:24 | NUR.NOTE ---
initial bladder scan at bedside showed 45 ml in bladder:
== END 2020-07-13 15:20 | disposition home or self-care (01) ==
PROVIDERS: Emergency Provider Student in an Organized Health Care Education/Training Program; PCP Family Medicine
DX: N39.0 Urinary tract infection, site not specified (principal)
CPT/HCPCS: 80053; 99283; 74176; 81003; 81015; 85025

== ENCOUNTER 2020-07-25 19:21 | Outpatient (REF) | payer MEDICARE, SELFPAY ==
[2020-07-25 22:12] LABS: Anion Gap 8.3 mmol/L (3-11); BUN 20 mg/dL (7-18); CO2 28.7 mmol/L (21.0-32.0); CREATININE 0.87 mg/dL (0.55-1.02); Calcium 10.8 mg/dL (8.5-10.1); Chloride 104 mmol/L (98-107); Glucose 87 mg/dL (74-106); Potassium 4.7 mmol/L (3.5-5.1); Sodium 141 mmol/L (136-145)
== END 2020-07-25 19:41 ==
LOC: LBN 19:21
PROVIDERS: PCP Family Medicine; Visit Provider Physician Assistant
DX: R34 Anuria and oliguria (principal); R41.3 Other amnesia
CPT/HCPCS: 80048; 87086

== ENCOUNTER 2020-08-02 01:12 | Outpatient (CLI) | payer MEDICARE, SELFPAY ==
--- NOTE | 2020-08-02 07:00 | DI.US_ITS ---
EXAM: US ABDOMEN CLINICAL HISTORY: nodular contour of liver on ct,r93.2,no symptoms TECHNIQUE: Ultrasound performed using standard protocol. COMPARISON: US US soft tissue head or neck from 09/16/[address] RENAL COLIC WO from 07/13/2020 FINDINGS: The liver is normal in size. The hepatic contour is mildly nodular raising the possibility of cirrho sis. No focal hepatic lesion seen, mild heterogeneity of hepatic parenchyma noted. There is cholelithiasis and adenomyomatosis of the gallbladder wall. No pericholecystic fluid collec tion. Negative sonographic [place] sign. Pancreas is unremarkable in appearance. No biliary dilatation. There are small bilateral renal simple cysts, the largest on the right measuring about 24 millimeters in diameter. Abdominal aorta and IVC are of normal diameter. IMPRESSION: Findings suggesting hepatic cirrhosis. Cholelithiasis and probable adenomyomatosis of the gallbladder. No evidence of acute cholecystitis. DATA REPOSITORY:
== END 2020-08-02 01:32 ==
PROVIDERS: PCP Family Medicine; Visit Provider Family Medicine
DX: K80.20 Calculus of gallbladder without cholecystitis without obstruction (principal); R93.2 Abnormal findings on diagnostic imaging of liver and biliary tract; R39.11 Hesitancy of micturition; R39.14 Feeling of incomplete bladder emptying; N95.2 Postmenopausal atrophic vaginitis
CPT/HCPCS: 81003; 99215; 76700

== ENCOUNTER 2020-09-26 09:21 | Outpatient (CLI) | payer MEDICARE, SELFPAY ==
[2020-09-26 13:15] LABS: ALT 30 U/L (14-59); AST 22 U/L (15-37); Albumin 3.7 g/dL (3.4-5.0); Alkaline Phosphatase 101 U/L (46-116); Anion Gap 9.1 mmol/L (3-11); BUN 25 mg/dL (7-18); Bilirubin, Total 0.3 mg/dL (0.2-1.0); CO2 27.9 mmol/L (21.0-32.0); CREATININE 1.3 mg/dL (0.55-1.02); Calcium 11.3 mg/dL (8.5-10.1); Chloride 104 mmol/L (98-107); Estimated GFR 39.51 (mL/min/1.73m2); Glucose 91 mg/dL (74-106); Potassium 4.7 mmol/L (3.5-5.1); Sodium 141 mmol/L (136-145); TSH 0.01 uIU/mL (0.36-3.74); Total Protein 7.4 g/dL (6.4-8.2); Uric Acid 5.9 mg/dL (2.6-6.0)
[2020-09-26 13:33] LABS: Bilirubin Negative (Negative); Blood Negative (Negative); Clarity Sl Cloudy (Clear); Glucose Negative (Negative); Ketones Negative (Negative); Leukocyte Esterase Trace (Negative); Nitrite Negative (Negative); Specific Gravity >= 1.030 (1.005-1.025); Urobilinogen 0.2 EU/dL (Up TO 0.2)
[2020-09-26 14:03] LABS: Bacteria Moderate HPF (Negative); C & S Indicated? No/Sq. Contamination; Casts 5-10 Hyaline LPF (Negative); Crystals Moderate Uric Acid HPF (Negative); Epithelial Cells Many HPF (Negative); Mucus Heavy (Negative); Other Cells Few Renal (Negative)
== END 2020-09-26 09:22 | disposition home or self-care (01) ==
LOC: LOS 09:22
PROVIDERS: PCP Family Medicine; Visit Provider Family Medicine
DX: E03.9 Hypothyroidism, unspecified (principal); M10.9 Gout, unspecified; K76.0 Fatty (change of) liver, not elsewhere classified; R35.0 Frequency of micturition
CPT/HCPCS: 36415; 80053; 81003; 81015; 84443; 84550

== ENCOUNTER → 2020-11-14 09:42 | Outpatient (BNVA) | payer MEDICARE, SELFPAY | PROVIDERS: PCP Family Medicine; Referring Provider Family Medicine; Visit Provider Nurse Practitioner Gerontology | DX: N36.2 Urethral caruncle (principal); N95.2 Postmenopausal atrophic vaginitis; R39.14 Feeling of incomplete bladder emptying | CPT/HCPCS: 99214 ==

== ENCOUNTER 2020-12-31 16:11 | Outpatient (REF) | payer MEDICARE, SELFPAY ==
[2020-12-31 18:22] LABS: HCT 33.3 % (36.0-46.0); HGB 10.4 g/dL (11.2-15.7); MCH 29.5 pg (27.0-33.0); MCHC 31.2 % (32.0-36.0); MCV 94.3 fL (80-95); MPV 12.5 fL (8.0-11.0); Platelet Count 237 10^3/uL (130-400); RBC 3.53 10^6/uL (3.93-5.22); RDW 13.6 % (11.7-14.6); RDW-SD 46.4 fL; WBC 7.01 10^3/uL (4.4-10.8)
[2020-12-31 18:38] LABS: Iron 34 ug/dL (50-170); Total Iron Binding Capacity 254 ug/dL (250-450); Transferrin Sat 13 % (15-50)
[2020-12-31 18:52] LABS: ALT 18 U/L (14-59); AST 11 U/L (15-37); Albumin 3.3 g/dL (3.4-5.0); Alkaline Phosphatase 95 U/L (46-116); Anion Gap 8.3 mmol/L (3-11); BUN 14 mg/dL (7-18); Bilirubin, Total 0.2 mg/dL (0.2-1.0); CO2 26.7 mmol/L (21.0-32.0); CREATININE 0.7 mg/dL (0.55-1.02); Calcium 8.6 mg/dL (8.5-10.1); Chloride 108 mmol/L (98-107); Ferritin 67 ng/mL (8-252); Glucose 97 mg/dL (74-106); Potassium 4.4 mmol/L (3.5-5.1); Sodium 143 mmol/L (136-145); TSH 0.03 uIU/mL (0.36-3.74); Total Protein 6.8 g/dL (6.4-8.2)
== END 2020-12-31 16:12 | disposition home or self-care (01) ==
LOC: LBN 16:11
PROVIDERS: PCP Family Medicine; Visit Provider Family Medicine
DX: K21.9 Gastro-esophageal reflux disease without esophagitis (principal); K63.5 Polyp of colon; I10 Essential (primary) hypertension
CPT/HCPCS: 80053; 85027; 82728; 83540; 83550; 84443

== ENCOUNTER 2021-03-05 03:34 | Outpatient (CLI) | payer MEDICARE, SELFPAY ==
[2021-03-05 11:37] LABS: Abs Immature Grans 0.04 10^3/uL (0.0-0.06); Absolute Basophil Count 0.04 10^3/uL (0.0-0.2); Absolute Eosinophil Count 0.06 10^3/uL (0.0-0.7); Absolute Lymphocyte Count 1.91 10^3/uL (1.2-3.4); Absolute Monocyte Count 0.71 10^3/uL (0.1-0.8); Absolute Neutrophil Count 5.53 10^3/uL (1.2-6.7); Basophils % 0.5; Eosinophils % 0.7; HCT 36.6 % (36.0-46.0); HGB 11.3 g/dL (11.2-15.7); Immature Grans % 0.5; MCH 28.5 pg (27.0-33.0); MCHC 30.9 % (32.0-36.0); MCV 92.2 fL (80-95); MPV 10.2 fL (8.0-11.0); Monocytes % 8.6; Neutrophils % 66.7; Nucleated RBC 0 %; Platelet Count 241 10^3/uL (130-400); RBC 3.97 10^6/uL (3.93-5.22); RDW 13.3 % (11.7-14.6); RDW-SD 45.9 fL; WBC 8.29 10^3/uL (4.4-10.8)
[2021-03-05 11:40] LABS: ESR 31 mm/hr (0-30)
[2021-03-05 13:36] LABS: ALT 18 U/L (14-59); AST 13 U/L (15-37); Albumin 3.6 g/dL (3.4-5.0); Alkaline Phosphatase 84 U/L (46-116); Anion Gap 8.4 mmol/L (3-11); BUN 19 mg/dL (7-18); Bilirubin, Total 0.3 mg/dL (0.2-1.0); CO2 29.6 mmol/L (21.0-32.0); CREATININE 0.9 mg/dL (0.55-1.02); Calcium 9.6 mg/dL (8.5-10.1); Chloride 104 mmol/L (98-107); Glucose 101 mg/dL (74-106); Potassium 4.6 mmol/L (3.5-5.1); Sodium 142 mmol/L (136-145); TSH 0.16 uIU/mL (0.36-3.74); Total Protein 7.4 g/dL (6.4-8.2)
== END 2021-03-05 03:35 | disposition home or self-care (01) ==
LOC: LBO 03:34
PROVIDERS: PCP Family Medicine; Visit Provider Family Medicine
DX: E03.9 Hypothyroidism, unspecified (principal); R55 Syncope and collapse
CPT/HCPCS: 36415; 80053; 85652; 84443; 85025

== ENCOUNTER 2021-04-04 03:21 | Outpatient (RCR) | payer MEDICARE, SELFPAY ==
--- NOTE | 2021-04-04 10:45 | HOLTER_ITS ---
APPROVED REPORT Conclusion This is a 48-hour Holter monitor ordered for syncope Predominant rhythm sinus with an average heart rate of 63. Minimum was 47, maximum 96 There were rare atrial premature beats. There were 4 brief self-limited atrial runs the longest of w hich was 6 beats in duration. There was no atrial fibrillation There were rare ventricular ectopic beats Accelerated idioventricular rhythm at a rate of 58 was noted during sleep There was no high-grade AV block, no pauses greater than 3 seconds No patient symptoms were reported
== END 2021-04-18 23:59 | disposition home or self-care (01) ==
LOC: RT 03:21
PROVIDERS: PCP Family Medicine; Visit Provider Family Medicine
DX: R55 Syncope and collapse (principal); I49.1 Atrial premature depolarization
CPT/HCPCS: 93227; 93225; 93226

== ENCOUNTER 2021-04-11 02:54 | Emergency (ER) | payer MEDICARE, SELFPAY ==
[2021-04-11 03:02] VITALS: BP 171/94; PULSE 62; RESP 18; TEMP 36.4; O2SAT 95
--- NOTE | 2021-04-11 03:15 | DI.CT_ITS ---
Exam(s) CT ABDOMEN PELVIS W EXAM: CT ABDOMEN PELVIS W CLINICAL HISTORY: ?small bowel obstruction. TECHNIQUE: Imaging Protocol: Axial computed tomography images with coronal and sagittal reformatted images were created and reviewed CONTRAST MATERIAL: Intravenous: Omnipaque 100cc Oral: None COMPARISON: CT CT RENAL COLIC WO from 07/13/2020 FINDINGS: VISUALIZED LUNG BASES: No nodules nor pleural effusions evident. Bulla in the right lung base noted ABDOMEN: There is no ascites. LIVER: There are no focal hepatic lesions evident . GALLBLADDER/BILIARY: No obvious gallbladder pathology. CBD is not dilated. PANCREAS: No evidence of pancreatic mass nor dilatation of the pancreatic duct. SPLEEN: Spleen is not enlarged. No obvious intrasplenic lesions. Splenic and portal veins are paten t. ADRENALS: There are no significant adrenal masses. KIDNEYS:The left kidney appears unremarkable. There are 2 adjacent exophytic cyst off the posterior cortex of the right kidney. Larger measures 2.4 x 2.3 cm. Smaller measures 1.2 x 1.2 cm.. No calcu li. No hydronephrosis. 10 x 11 millimeters small cysts noted in the lower pole of the opposite-left kidney. No other left kidney findings. No hydronephrosis. ABDOMINAL AORTA: Abdominal aorta is calcified-atherosclerotic. No large aneurysm. No para-aortic ad enopathy. LYMPH NODES:There is no retroperitoneal nor paraaortic adenopathy. ABDOMINAL WALL: There is a left anterior abdominal wall colostomy. There is a Colostomy anterior abdominal hernia at this level which contains bowel loops, nonobstructed. There i s also at midline anterior abdominal wall weakness related to prior anterior incision. There is also a fat containing left inguinal hernia. Evidence of left inguinal hernia repair. GI: There is no evidence of bowel obstruction, free air, nor abscess. PELVIS: GI: No evidence of appendicitis.No evidence of sigmoid diverticulitis. LYMPH NODES: There is no intrapelvic nor inguinal adenopathy. REPRODUCTIVE: Uterus is surgically absent. No abnormal adnexal masses. URINARY BLADDER: Right-sided diverticulum. No obvious calculi nor masses within the bladder lumen. OSSEOUS: Compression fracture of T12 again noted, unchanged from 07/13/2020. Posterior cortex is dev iated posteriorly approximately 9 millimeters and impresses the thecal sac at this level. IMPRESSION: 1. Distal colectomy with left lower quadrant colostomy. There is a large peristomal hernia containin g loops of nonobstructive large bowel. There is no bowel obstruction. No free air. No abscess. 2. Previous hysterectomy. No abnormal adnexal masses nor free fluid. 3. Benign cyst in the right kidney noted. There is also a cyst in the lower pole left kidney which m easures 10 x 11 millimeters. 4. Right-sided urinary bladder diverticulum noted. No obvious bladder mass nor intraluminal calculi. RADIATION DOSE DELIVERED: 1,037.02mGy.cm Total DLP DATA REPOSITORY: All CT scans at this facility are submitted to the National Radiology Data Registry (NRDR) Dose Index Registry (DIR) with the [employer] (ACR). RADIATION OPTIMIZATION: All CT scans at this facility use at least one of these dose optimization te chniques: automated exposure control; mA and/or kV adjustment per patient size (includes targeted exa ms where dose is matched to clinical indication); or iterative reconstruction.
[2021-04-11] MEDS: HYDROmorphone 2 MG/ML VIAL 1 MG IVP ×2 (03:22→04:47)
--- NOTE | 2021-04-11 03:23 | ED.GENADUL_ITS ---
Discharge Plan Disposition Patient Disposition: [facility] Condition: Stable Discharge Details Clinical Impression: Peristomal hernia, Abdominal pain Primary Care Provider: Liz Granado ED Provider: Hadley Briones Home Meds and New Rx's Prescriptions: No Action docusate sodium 50 mg capsule 50 mg PO DAILY PRNRF: 0 nystatin 100,000 unit/gram powder 1 applic TP BID PRN (Reason: tinea) Qty: 60 RF: 3 sertraline 25 mg tablet 25 mg PO DAILY Qty: 30 RF: 3 multivitamin [One Daily Multivitamin] tablet 1 tab PO BID RF: 0 cyanocobalamin (vitamin B-12) 500 mcg tablet 500 mcg PO DAILY RF: 0 allopurinol 100 mg tablet 150 mg PO DAILY Qty: 45 RF: 3 estradiol 0.01 % (0.1 mg/gram) cream 1 g vaginal DIRECTED Qty: 60 RF: 3 lisinopril 10 mg tablet 10 mg PO DAILY Qty: 90 RF: 3 ferrous gluconate 324 mg (38 mg iron) tablet 324 mg PO TID Qty: 90 RF: 6 zolpidem [Ambien CR] 12.5 mg tablet,ext release multiphase 12.5 mg PO QHS Qty: 30 RF: 4 Hold Instructions: Home Medication placed on hold at Doctor's office levothyroxine 75 mcg tablet 75 mcg PO DAILY Qty: 30 RF: 2 oxycodone 5 mg tablet 5 mg PO Q8H MDD 15 mg PRN (Reason: pain) Qty: 30 RF: 0 Medrol 2 mg tablet 1 mg PO DAILY RF: 0 Medical Decision Making 80 yo female with hx of colon perforation secondary to colonoscopy complication with resulting resection and ostomy which she still has, comes in with increased abdomen pain and no stool in her ostomy bag for a day. HAs had nausea as well and denies vomit. Has not had fevers, chills, chest pain, dyspnea. She has a mildly distended abdomen with tenderness in the mid abdomen, pink well appearing stoma tissue, no stool in the bag. Concern for possible bowel obstruction, will obtain labs and ct to further evaluate. She has listed an iodinated contrast media allergy, she states this happened when she was in her 30's and has had CTs with IV contrast without complications in the last 2-3 years so will proceed with CT with IV contrast. labs unremarkable, lactate pending. CT shows large peristomal hernia with slightly inflamed fat and loops of nonobstructed colon. Pt stable, unable to reduce at bedside. I discussed with pt and paged front counter attendant general surgeon Dr. Garcia and patient is declining to see her due to prior history with her. [place] [facility] [place] [facility] [place] if they have capacity to take her in transfer Spoke with Dr. Moscoso from colorectal surgery and then Dr. Young in the ED who accepts for transfer to their ED for surgical evaluation. Pt updated and agreeable with transfer Differential Diagnosis Differential Diagnosis: small bowel obstruction, constipation, pancreatitis Medical Records Medical records reviewed: Yes I reviewed the patient's medical records. Imaging Data Radiologic Study: Attestation: I personally reviewed and interpreted this imaging study as follows: Imaging: CT Scan Radiologist's impression: IMPRESSION: 1. Status post distal colectomy with a Soham's pouch in the pelvis and left lower quadrant colostomy. 2. Large peristomal hernia containing slightly inflamed fat and loops of nonobstructed colon. 3. No dilated small bowel loops noted to indicate a small-bowel obstruction. 4. Right renal cysts and a hyperdense lower pole left renal lesion which is too small to characterize on this contrast-enhanced exam. It may be a cyst as well and is stable since the prior exam. Correlation with a nonemergent renal ultrasound advised. 5. Status post hysterectomy. Lab Data Lab results reviewed: Yes I reviewed the patient's lab results. HPI General Mode of arrival: wheelchair . Date/Time Provider Initiated Documentation: 04/11/21 02:56 . Limitations to Documentation: no limitations . Information obtained by: patient . History of Present Illness 80 year old F presents to the emergency department with the chief complaint of abdominal pain, described as moderate, Quality is described as aching, and is localized to the abdomen. Patient reports no radiation. Patient started experiencing this day(s) (1) and it has been constant. No relieving factors improve symptom(s), No exacerbating factors reported . Patient did receive the following treatments prior to arrival, none Related Data Home Medications Medication Instructions Recorded Confirmed multivitamin 1 tab PO BID tab 08/06/18 04/11/21 docusate sodium 50 mg capsule 50 mg PO DAILY PRN 07/27/19 04/11/21 cyanocobalamin (vitamin B-12) 500 500 mcg PO DAILY 08/22/19 04/02/21 mcg tablet methylprednisolone 2 mg tablet 1 mg PO DAILY tab 06/04/20 04/11/21 allopurinol 100 mg tablet 150 mg PO DAILY #45 tab 07/19/20 04/02/21 estradiol 1 g VAGINAL DIRECTED #60 g 08/02/20 04/11/21 lisinopril 10 mg tablet 10 mg PO DAILY #90 tab 08/06/20 04/11/21 ferrous gluconate 324 mg (38 mg 324 mg PO TID #90 tab 08/21/20 04/11/21 iron) tablet nystatin 100,000 unit/gram topical 1 applic TP BID PRN #60 gm 09/26/20 04/11/21 powder zolpidem 12.5 mg tablet,extended 12.5 mg PO QHS #30 tab 01/16/21 04/11/21 release,multiphase levothyroxine 75 mcg tablet 75 mcg PO DAILY #30 tab 03/05/21 04/11/21 oxycodone 5 mg tablet 5 mg PO Q8H PRN #30 tab MDD 15 mg 03/26/21 04/11/21 sertraline 25 mg tablet 25 mg PO DAILY #30 tab 04/02/21 04/11/21 Previous Rx's Medication Instructions Recorded allopurinol 100 mg tablet 150 mg PO DAILY #45 tab 07/19/20 estradiol 1 g VAGINAL DIRECTED #60 g 08/02/20 lisinopril 10 mg tablet 10 mg PO DAILY #90 tab 08/06/20 ferrous gluconate 324 mg (38 mg 324 mg PO TID #90 tab 08/21/20 iron) tablet nystatin 100,000 unit/gram topical 1 applic TP BID PRN #60 gm 09/26/20 powder zolpidem 12.5 mg tablet,extended 12.5 mg PO QHS #30 tab 01/16/21 release,multiphase levothyroxine 75 mcg tablet 75 mcg PO DAILY #30 tab 03/05/21 oxycodone 5 mg tablet 5 mg PO Q8H PRN #30 tab MDD 15 mg 03/26/21 sertraline 25 mg tablet 25 mg PO DAILY #30 tab 04/02/21 Allergies Allergy/AdvReac Type Severity Reaction Status Date / Time banana Allergy Intermediate Other (See Verified 04/11/21 03:07 Comment) cucumber Allergy Intermediate Other (See Verified 04/11/21 03:07 Comment) Iodinated Contrast Media Allergy Intermediate Anaphylaxis Unverified 04/11/21 03:07 chloramphenicol AdvReac Severe KIDNEY Verified 04/11/21 03:07 FAILURE tetracycline AdvReac Severe KIDNEY Verified 04/11/21 03:07 FAILURE melon AdvReac Intermediate Cantaloupe-Abd Verified 04/11/21 03:07 pain, diarrhea ADHESIVE TAPE Allergy Intermediate takes skin Uncoded 04/11/21 03:07 off SUTURE MATERIAL Allergy Intermediate Purluent Uncoded 04/11/21 03:07 Drainage General Stated Complaint: Abd Prob JOSHUA: 3 Review of Systems All systems reviewed & are unremarkable except as noted in HPI and below Constitutional Constitutional: Denies chills, Denies fever(s) and Denies weakness Cardiovascular Cardiovascular: Denies chest pain and Denies dyspnea Respiratory Respiratory: Denies cough and Denies dyspnea Gastrointestinal Gastrointestinal: Denies vomiting Musculoskeletal Musculoskeletal: Denies joint swelling Neurologic Neurologic: Denies weakness Psychiatric Psychiatric: Denies depression [facility] Medical History (Updated 04/11/21 @ 05:01 by Hadley Briones MD) Cerebral amyloid angiopathy : possible diagnosis re:brain MRI/ followed by Neuro [facility] [place] Dr.Anthony Avalos Depressive disorder Excessive sweating (06/02/16) daytime sweating if >74 degrees/ fatigue normal cbc, spep,echocardiogram,sed.rate,cmp Gout Hypokalemia Hypothyroidism (04/05/12) Increased body mass index Insomnia Leukocytosis Medical cannabis use Memory impairment (06/18/94) H/O closed head injury w/ result in memory difficulties, word findig problems 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 Vaginal atrophy Surgical History Abdominal hysterectomy (~1975) Appendectomy Bilateral salpingectomy with oophorectomy (~1975) Colonoscopy - MAC ADENOMA COLON POLYPS 1997, NONE ON MULTIPLE SUBSEQUENT COLONOSCOPIES, MOST RECENT C-SCOPE 2005 WAS NORMAL, 2018 - cecal polyp, diverticulosis EGD - MAC (~2003) MILD EROSIVE ESOPHAGITIS, NO PINON'S ON BIOPSY H/O dilation and curettage H/O partial resection of colon Sigmoid colon resection 06/28/18 Laparoscopic, Ovarian Cystectomy B/L Rotator Cuff Repair B/L S/P tonsillectomy Family History Mother , in her 80s from pneumonia Heart disease Pneumonia Father , from complications of prostate surgery in his 80s Stroke Personal history of malignant neoplasm Heart disease Brother , aged 68 Alcohol abuse Cirrhosis with alcoholism Grandfather Essential hypertension Heart disease Grandmother Personal history of malignant neoplasm Stroke Grandmother Personal history of malignant neoplasm Son , from his drinking/SA; her oldest child Alcohol abuse Social History Smoking/Tobacco Use Status: Former Tobacco Use Smoking risk assessment performed?: Yes Alcohol Intake: current Alcohol Intake frequency: a few times a month Alcohol type: hard liquor Drug use: Never Substance use type: does not use Household members: other 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 Exam Const General: no acute distress Orientation: alert HENMT Head: normal to inspection Ears: external ears normal General nose exam: external nose normal Mouth: moist mucous membranes Eyes General: appearance normal, both eyes and all related structures Neck Neck: normal visual inspection Resp Effort & Inspection: normal respiratory effort and able to speak in complete sentences Cardio Rate: regular rate GI Palpation: tender Skin General skin exam: no rashes or lesions noted Neuro General: patient alert and patient oriented x3 Extrem General: normal to inspection Psych Mental Status: mental status grossly normal Course Vital Signs Vital signs: Vital Signs Temperature 36.4 C L 04/11/21 03:02 Pulse 62 04/11/21 03:02 Respiratory Rate 18 04/11/21 03:02 Blood Pressure 171/94 H 04/11/21 03:02 Pulse Oximetry 95 04/11/21 03:02 Temperature 36.4 C L 04/11/21 03:02 Temperature Source Skin 04/11/21 03:02 Pulse 62 04/11/21 03:02 Respiratory Rate 18 04/11/21 03:02 Respiratory Effort Non-Labored 04/11/21 03:09 Blood Pressure 171/94 H 04/11/21 03:02 Pulse Oximetry 95 04/11/21 03:02 Pain Level 10 04/11/21 03:02
[2021-04-11] MEDS: Normal Saline Flush 10 ML SYR IVP ×2 (03:24→04:19)
[2021-04-11 03:36] LABS: Abs Immature Grans 0.04 10^3/uL (0.0-0.06); Absolute Basophil Count 0.06 10^3/uL (0.0-0.2); Absolute Eosinophil Count 0.15 10^3/uL (0.0-0.7); Absolute Lymphocyte Count 2.93 10^3/uL (1.2-3.4); Absolute Monocyte Count 0.99 10^3/uL (0.1-0.8); Absolute Neutrophil Count 6.21 10^3/uL (1.2-6.7); Basophils % 0.6; Eosinophils % 1.4; HCT 35.1 % (36.0-46.0); HGB 11.1 g/dL (11.2-15.7); Immature Grans % 0.4; Lymphocytes % 28.2; MCH 29.1 pg (27.0-33.0); MCHC 31.6 % (32.0-36.0); MCV 91.9 fL (80-95); MPV 10.6 fL (8.0-11.0); Monocytes % 9.5; Neutrophils % 59.9; Nucleated RBC 0 %; Platelet Count 274 10^3/uL (130-400); RBC 3.82 10^6/uL (3.93-5.22); RDW 13.6 % (11.7-14.6); RDW-SD 46.3 fL; WBC 10.38 10^3/uL (4.4-10.8)
[2021-04-11 03:43] LABS: INR 1.1 (0.9-1.1); PTT Activated 22.6 sec (21.0-27.5)
[2021-04-11 03:56] LABS: ALT 23 U/L (14-59); AST 17 U/L (15-37); Albumin 3.5 g/dL (3.4-5.0); Alkaline Phosphatase 83 U/L (46-116); Anion Gap 4.2 mmol/L (3-11); BUN 26 mg/dL (7-18); Bilirubin, Total 0.2 mg/dL (0.2-1.0); CO2 30.8 mmol/L (21.0-32.0); CREATININE 0.9 mg/dL (0.55-1.02); Calcium 9.4 mg/dL (8.5-10.1); Chloride 104 mmol/L (98-107); Glucose 95 mg/dL (74-106); Lipase 132 U/L (73-393); Magnesium 1.9 mg/dL (1.8-2.4); Potassium 4.2 mmol/L (3.5-5.1); Sodium 139 mmol/L (136-145); Total Protein 7.7 g/dL (6.4-8.2)
[2021-04-11] MEDS: Omnipaque 350 MG/ML 100 ML BTL IJ (04:19)
--- NOTE | 2021-04-11 04:46 | DI.VRAD_ITS ---
PROCEDURE INFORMATION: Exam: CT Abdomen And Pelvis With Contrast Exam date and time: 04/11/2021 3:22 AM Age: 80 years old Clinical indication: Pain; Other: ? Small bowel obstruction; Prior surgery; Surgery date: 6+ months; Surgery type: Appendectomy, colon resection TECHNIQUE: Imaging protocol: Computed tomography of the abdomen and pelvis with contrast. Contrast material: OMNIPAQUE 350; Contrast volume: 100 ml; Contrast route: INTRAVENOUS (IV); COMPARISON: CT ABDOMEN PELVIS W 10/14/2018 4:08 PM FINDINGS: Lungs: There is paraseptal emphysema in the right lung base. Heart: The cardiac chambers are mildly enlarged but there is no overt failure or pericardial effusion. There is prominent calcification of the mitral valve annulus. Liver: Mild hepatic steatosis. Gallbladder and bile ducts: Unremarkable without gallstones. No intra or extrahepatic ductal dilation. Pancreas: No peripancreatic inflammatory infiltration or fluid. No ductal dilation. Spleen: No splenomegaly or splenic mass. Adrenal glands: Normal. No mass. Kidneys and ureters: There are two exophytic right renal cysts. There is a hyperdense lower pole left renal lesion which may be a cyst as well although it is incompletely evaluated on this contrast-enhanced exam. It is relatively stable since the prior exam. Stomach and bowel: The patient is status post distal colectomy with a Soham's pouch and left lower quadrant colostomy. There is a large peristomal hernia which contains slightly inflamed fat and nonobstructed loops of colon. I do not see evidence of a small-bowel obstruction. Appendix: No evidence of appendicitis. No appendicolith. Intraperitoneal space: No free fluid, free air or focal inflammatory infiltration. Vasculature: No abdominal aortic aneurysm. The portal, splenic and superior mesenteric veins appear patent. Lymph nodes: No enlarged lymph nodes within the retroperitoneal space or mesentery. Urinary bladder: Urinary bladder is moderately distended. Reproductive: The uterus and ovaries are surgically absent. Bones/joints: Unremarkable. No acute fracture. No osteolytic or blastic bone lesions. Soft tissues: Paraspinous and extracorporeal soft tissues are unremarkable. IMPRESSION: 1. Status post distal colectomy with a Soham's pouch in the pelvis and left lower quadrant colostomy. 2. Large peristomal hernia containing slightly inflamed fat and loops of nonobstructed colon. 3. No dilated small bowel loops noted to indicate a small-bowel obstruction. 4. Right renal cysts and a hyperdense lower pole left renal lesion which is too small to characterize on this contrast-enhanced exam. It may be a cyst as well and is stable since the prior exam. Correlation with a nonemergent renal ultrasound advised. 5. Status post hysterectomy. Dictated and Authenticated by: Poncho Conner MD. Ordering:MARCO Butcher MD
[2021-04-11 05:06] LABS: Lactate 0.3 mmol/L (0.6-1.4)
[2021-04-11 06:10] LABS: Bilirubin Negative (Negative); Blood Trace-lysed (Negative); Clarity Sl Cloudy (Clear); Glucose Negative (Negative); Ketones Negative (Negative); Leukocyte Esterase Moderate (Negative); Nitrite Negative (Negative); Urobilinogen 0.2 EU/dL (Up TO 0.2)
[2021-04-11] MEDS: Normal Saline 1,000 ML 150 ML IV (06:14)
[2021-04-11 06:16] LABS: Epithelial Cells Many HPF (Negative); WBC 20-50 HPF (0-5)
[2021-04-11 06:17] VITALS: BP 146/67; PULSE 82; RESP 16; TEMP 36.4; O2SAT 96
[2021-04-11 06:17] LABS: Bacteria Few HPF (Negative); C & S Indicated? No/Sq. Contamination; Casts Negative LPF (Negative); Crystals Negative HPF (Negative); Mucus Negative (Negative)
== END 2021-04-11 07:24 | disposition short-term general hospital (02) ==
PROVIDERS: Emergency Provider Emergency Medicine; PCP Family Medicine
DX: K43.5 Parastomal hernia without obstruction or gangrene (principal); R10.9 Unspecified abdominal pain
CPT/HCPCS: 80053; 83690; 96361; 96374; 96376; 99285; 74177; 81003; 81015; 83605; 83735; 85025; 85610; 85730; J3490

== ENCOUNTER 2021-05-29 12:10 | Emergency (ER) | payer MEDICARE, SELFPAY ==
[2021-05-29 12:37] VITALS: BP 157/54; PULSE 84; RESP 18; O2SAT 98
--- NOTE | 2021-05-29 12:39 | ED.GENADUL_ITS ---
Discharge Plan Disposition Patient Disposition: [facility] Condition: Serious Discharge Details Clinical Impression: Brain bleed Primary Care Provider: Liz Granado ED Provider: Marlon Craft Home Meds and New Rx's Prescriptions: No Action docusate sodium 50 mg capsule 50 mg PO DAILY PRNRF: 0 nystatin 100,000 unit/gram powder 1 applic TP BID PRN (Reason: tinea) Qty: 60 RF: 3 sertraline 25 mg tablet 25 mg PO DAILY Qty: 30 RF: 3 multivitamin [One Daily Multivitamin] tablet 1 tab PO BID RF: 0 cyanocobalamin (vitamin B-12) 500 mcg tablet 500 mcg PO DAILY RF: 0 estradiol 0.01 % (0.1 mg/gram) cream 1 g vaginal DIRECTED Qty: 60 RF: 3 lisinopril 10 mg tablet 10 mg PO DAILY Qty: 90 RF: 3 ferrous gluconate 324 mg (38 mg iron) tablet 324 mg PO TID Qty: 90 RF: 6 zolpidem [Ambien CR] 12.5 mg tablet,ext release multiphase 12.5 mg PO QHS Qty: 30 RF: 4 Hold Instructions: Home Medication placed on hold at Doctor's office levothyroxine 75 mcg tablet 75 mcg PO DAILY Qty: 30 RF: 2 oxycodone 5 mg tablet 5 mg PO Q8H MDD 15 mg PRN (Reason: pain) Qty: 30 RF: 0 Medrol 2 mg tablet 1 mg PO DAILY RF: 0 Discharge Data Discharge Date/Time-TO BE ENTERED AT DEPARTURE: 05/29/21 17:15 Medical Decision Making <NEO Breen - Last Filed: 05/30/21 12:13> Patient is alert, oriented, of decisional capacity, she had some decreased vision in her lower field bilaterally She does have a mild headache but is declining any medication Bladder scan with 275 cc, able to urinate, no evidence of acute cauda equina syndrome No stroke alert was called the patient has been symptomatic since Thursday and is alert, oriented, with a nonfocal neurological exam at this time No evidence of secondary infection Patient does have a contrast allergy, given her length of symptoms and presenting symptoms, did order MRI/MRA care will be transferred to Marlon Craft, physician product development assistant pending MRI/MRA interpretation Medical Records Medical records reviewed: Yes I reviewed the patient's medical records. Lab Data Lab results reviewed: Yes I reviewed the patient's lab results. <NEO Henderson - Last Filed: 05/29/21 19:03> I assumed care of this patient from my colleague NEO Rodriguez, please see her initial HPI and examination. At time of signout awaiting MRI results. 1. There are 2 similar appearing and similar size 3 x 2.4 cm hemorrhagic metastatic appearing lesions in left side of the brain, specifically in the left occipital lobe and left temporal lobe. There is mild surrounding edema with no shift of midline structures. 2. Multiple foci white matter chronic ischemic changes in the Ann in supra ventricular white matter. No evidence of restricted diffusion to suggest acute infarct. Given the CT findings, images were pushed to [facility] and request for consult- transfer to neurosurgery requested. At 1704 I spoke with neurosurgery, Kelly Hernandes MD, she agrees the patient requires admission but they do not have capacity to accept the patient. She does understand the patient had a procedure at their facility on Thursday. She recommends admission to a higher level of care, metastatic work-up, and then determination whether she needs to be followed either by neurology or neurosurgery. Images were then pushed to [facility] and I spoke with neurosurgery, Dr. Jernigan, at 1750. He agrees the patient requires transfer to a higher level of care. Recommend ER to ER transfer, further work-up, and then determination whether the patient will be seen by neurology or neurosurgery. I then spoke with Dr. Chen, ER attending, [facility], at 1755. She accepts transfer. All appropriate paperwork completed. Plan discussed with patient. She has no additional questions or concerns. Remains hemodynamically stable under my care. This documentation was generated using [employer] system, please disregard any oddities of phrase or misspellings. Medical Records Medical records reviewed: Yes I reviewed the patient's medical records. Imaging Data Radiologic Study: Attestation: I personally reviewed and interpreted this imaging study as follows: Imaging: MRI Radiologist's impression: Exam(s) MR BRAIN WO/W EXAM: MR BRAIN WO/W CLINICAL HISTORY: wordfinding and vision change, sp/ surgery lumbar TECHNIQUE: Multiplanar multisequence MRI of the brain was performed. Both noninfused and contrast infused sequences were performed. IV Contrast injected was cc Dotarem. COMPARISON: No exams were available for comparison FINDINGS: CEREBRAL PARENCHYMA: There are 2 similar appearing lesions in left side of the brain, both exhibiting subacute hemorrhage, surrounding edema, and mild enhancement following contrast injection. These are in the left occipital lobe and left temporal lobe. Only mild mass effect. No shift. Both lesions measure approximately 3 x 2.4 cm. No other enhancing lesions in the brain. There are multiple foci of white matter signal abnormality in the Ann and supra ventricular white matter consistent with chronic small vessel disease. There are no significant findings in the cerebellar hemispheres nor within the luke and midbrain and thalami. The abundant periventricular white matter disease is not exhibit restricted diffusion to suggest recent infarct. PITUITARY GLAND: No mass nor parasellar abnormality. No obvious abnormality in the cavernous sinuses. FLOW VOIDS: The expected flow void are noted. No evidence of obvious aneurysm nor obvious vascular malformation. PARANASAL SINUSES: The visualized paranasal sinuses appear unremarkable. ORBITS: No obvious abnormal findings. IMPRESSION: 1. There are 2 similar appearing and similar size 3 x 2.4 cm hemorrhagic metastatic appearing lesions in left side of the brain, specifically in the left occipital lobe and left temporal lobe. There is mild surrounding edema with no shift of midline structures. 2. Multiple foci white matter chronic ischemic changes in the Ann in supra ventricular white matter. No evidence of restricted diffusion to suggest acute infarct. Report called by myself to the ER provider. HPI <NEO Breen - Last Filed: 05/30/21 12:13> General Mode of arrival: ambulatory . Date/Time Provider Initiated Documentation: 05/29/21 13:17 . Limitations to Documentation: no limitations . Information obtained by: patient . HPI Narrative: This 80-year-old female presents with report of visual change since Thursday with headache. She denies any fever or chills. She denies any chest pain or shortness of breath. She denies any dizziness or weakness. She states her symptoms have been persistent since onset. She is also per her has some word finding difficulty. She denies any additional strength or sensation change. She is status post lumbar surgery at [facility] on Thursday. Her symptoms started on Thursday. Denies any new weakness to extremities. Has some constipation and decreased urination but no obvious retention or incontinence. Denies fever or chills. Related Data Home Medications Medication Instructions Recorded Confirmed multivitamin 1 tab PO BID tab 08/06/18 05/29/21 docusate sodium 50 mg capsule 50 mg PO DAILY PRN 07/27/19 05/29/21 cyanocobalamin (vitamin B-12) 500 500 mcg PO DAILY 08/22/19 05/29/21 mcg tablet methylprednisolone 2 mg tablet 1 mg PO DAILY tab 06/04/20 05/29/21 estradiol 1 g VAGINAL DIRECTED #60 g 08/02/20 05/29/21 lisinopril 10 mg tablet 10 mg PO DAILY #90 tab 08/06/20 05/29/21 ferrous gluconate 324 mg (38 mg 324 mg PO TID #90 tab 08/21/20 05/29/21 iron) tablet nystatin 100,000 unit/gram topical 1 applic TP BID PRN #60 gm 09/26/20 05/29/21 powder zolpidem 12.5 mg tablet,extended 12.5 mg PO QHS #30 tab 01/16/21 05/29/21 release,multiphase levothyroxine 75 mcg tablet 75 mcg PO DAILY #30 tab 03/05/21 05/29/21 sertraline 25 mg tablet 25 mg PO DAILY #30 tab 04/02/21 05/29/21 oxycodone 5 mg tablet 5 mg PO Q8H PRN #30 tab MDD 15 mg 05/20/21 05/29/21 Previous Rx's Medication Instructions Recorded estradiol 1 g VAGINAL DIRECTED #60 g 08/02/20 lisinopril 10 mg tablet 10 mg PO DAILY #90 tab 08/06/20 ferrous gluconate 324 mg (38 mg 324 mg PO TID #90 tab 08/21/20 iron) tablet nystatin 100,000 unit/gram topical 1 applic TP BID PRN #60 gm 09/26/20 powder zolpidem 12.5 mg tablet,extended 12.5 mg PO QHS #30 tab 01/16/21 release,multiphase levothyroxine 75 mcg tablet 75 mcg PO DAILY #30 tab 03/05/21 sertraline 25 mg tablet 25 mg PO DAILY #30 tab 04/02/21 oxycodone 5 mg tablet 5 mg PO Q8H PRN #30 tab MDD 15 mg 05/20/21 Allergies Allergy/AdvReac Type Severity Reaction Status Date / Time banana Allergy Intermediate Other (See Verified 05/29/21 13:31 Comment) cucumber Allergy Intermediate Other (See Verified 05/29/21 13:31 Comment) Iodinated Contrast Media Allergy Intermediate Anaphylaxis Unverified 05/29/21 13:31 chloramphenicol AdvReac Severe KIDNEY Verified 05/29/21 13:31 FAILURE tetracycline AdvReac Severe KIDNEY Verified 05/29/21 13:31 FAILURE melon AdvReac Intermediate Cantaloupe-Abd Verified 05/29/21 13:31 pain, diarrhea ADHESIVE TAPE Allergy Intermediate takes skin Uncoded 05/29/21 13:31 off SUTURE MATERIAL Allergy Intermediate Purluent Uncoded 05/29/21 13:31 Drainage General JOSHUA: 3 Review of Systems <NEO Breen - Last Filed: 05/30/21 12:13> All systems reviewed & are unremarkable except as noted in HPI and below PFSH <NEO Breen - Last Filed: 05/30/21 12:13> Medical History (Updated 05/29/21 @ 19:02 by NEO Henderson) Cerebral amyloid angiopathy : possible diagnosis re:brain MRI/ followed by Neuro [facility] Dr.Anthony Avalos Depressive disorder Excessive sweating (06/02/16) daytime sweating if >74 degrees/ fatigue normal cbc, spep,echocardiogram,sed.rate,cmp Gout Hypokalemia Hypothyroidism (04/05/12) Increased body mass index Insomnia Leukocytosis Medical cannabis use Memory impairment (06/18/94) H/O closed head injury w/ result in memory difficulties, word findig problems 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 Vaginal atrophy Surgical History Abdominal hysterectomy (~1975) Appendectomy Bilateral salpingectomy with oophorectomy (~1975) Colonoscopy - MAC ADENOMA COLON POLYPS 1997, NONE ON MULTIPLE SUBSEQUENT COLONOSCOPIES, MOST RECENT C-SCOPE 2005 WAS NORMAL, 2018 - cecal polyp, diverticulosis EGD - [facility] (~2003) MILD EROSIVE ESOPHAGITIS, NO PINON'S ON BIOPSY H/O dilation and curettage H/O partial resection of colon Sigmoid colon resection 06/28/18 Laparoscopic, Ovarian Cystectomy B/L Rotator Cuff Repair B/L S/P tonsillectomy Family History Mother , in her 80s from pneumonia Heart disease Pneumonia Father , from complications of prostate surgery in his 80s Stroke Personal history of malignant neoplasm Heart disease Brother , aged 68 Alcohol abuse Cirrhosis with alcoholism Grandfather Essential hypertension Heart disease Grandmother Personal history of malignant neoplasm Stroke Grandmother Personal history of malignant neoplasm Son , from his drinking/SA; her oldest child Alcohol abuse Social History Smoking/Tobacco Use Status: Former Tobacco Use Smoking risk assessment performed?: Yes Alcohol Intake: current Alcohol Intake frequency: a few times a month Alcohol type: hard liquor Drug use: Never Substance use type: does not use Household members: other 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 Exam <NEO Breen Last Filed: 05/30/21 12:13> Const General: cooperative and comfortable Orientation: alert and oriented x3 HENMT Head: normal to inspection Throat: uvula midline Eyes Pupils: PERRL EOM: EOM intact bilaterally Neck Other: no carotid bruit Resp Effort & Inspection: normal respiratory effort Auscultation: clear to auscultation bilaterally Cardio Rate: regular rate Rhythm: regular rhythm Heart Sounds: no murmurs GI Other: non-tender Back/Spine/Pelvis Other: Surgical site look well approximated with no dehiscence or erythema Skin General skin exam: no rashes or lesions noted Neuro General: patient alert and patient oriented x3 Cranial Nerves: CN's II-XI intact bilaterally Cognition: normal cognition Speech: speech normal Gait: normal gait Motor: muscle tone normal throughout and strength 5/5 throughout Other: Negative [id number], negative pronator drift, negative heel sam Extrem Other: strength and sensation intact distally Sign Out <NEO Breen Last Filed: 05/30/21 12:13> Sign Out Data: Sign Out Comment: pending mri Last updated by Dolores Rodriguez PA at 05/29/21 16:07
[2021-05-29 13:35] VITALS: RESP 18
--- NOTE | 2021-05-29 14:00 | DI.RAD_ITS ---
Exam(s) XR PORTABLE CHEST AP EXAM: XR PORTABLE CHEST AP CLINICAL HISTORY: cough. TECHNIQUE: 2D digital imaging was performed. COMPARISON: CR XR CHEST 2V PA LATERAL from 09/16/2018 FINDINGS: Heart size is upper normal. The mediastinum is not widened. Lungs are clear. No infiltrates nor obvious pleural effusions. IMPRESSION: No acute pulmonary findings on this single AP portable view of the chest. DATA REPOSITORY: RADIATION DOSE DELIVERED: All CT scans at this facility use at least one of these dose optimization techniques: automated exposure control; mA and/or kV adjustment per patient size (includes targeted e xams where dose is matched to clinical indication); or iterative reconstruction.
--- NOTE | 2021-05-29 14:00 | RT.EKG_ITS ---
APPROVED REPORT Exam: Resting ECG Reason for Exam: confusion Patient Location: E HR:56 bpm ECG Measurements Heart Rate 56 AXIS DE 191 P 3 QRSd 95 QRS -34 QT 589 T 223 QTc 567 Conclusion Sinus bradycardia...rate< 60 Left axis deviation...QRS axis (-30,-90) Abnormal T, suspect prox. LAD occlu. or CVA...Symmetric T<-0.5mV, V2-V4 Prolonged QT interval...QTc >500mS
--- NOTE | 2021-05-29 14:15 | DI.MRI_ITS ---
Exam(s) MR ANGIO BRAIN WO EXAM: MR ANGIO NECK WO. CLINICAL HISTORY: word finding and vision change with FLORES TECHNIQUE: NO IV CONTRAST. PERFORMED WITH [id number] SEQUENCE COMPARISON: NONE FINDINGS: There is no significant stenosis at the carotid bifurcations proximal internal carotid arteries on ei ther side nor within the internal carotid arteries in the upper neck. The right vertebral artery is dominant both vertebral arteries contribute to the formation of the bas ilar artery at the skull base. No evidence of intraluminal filling defect nor dissection of the verte bral arteries IMPRESSION: 1. Patent carotid arteries in the neck. No significant stenosis at the carotid bifurcations and proxi mal internal carotid arteries. 2. Patent vertebral arteries. The right vertebral artery is dominant. DATA REPOSITORY:
--- NOTE | 2021-05-29 14:15 | DI.MRI_ITS ---
Exam(s) MR BRAIN WO/W EXAM: MR BRAIN WO/W CLINICAL HISTORY: wordfinding and vision change, sp/ surgery lumbar TECHNIQUE: Multiplanar multisequence MRI of the brain was performed. Both noninfused and contrast i nfused sequences were performed. IV Contrast injected was cc Dotarem. COMPARISON: No exams were available for comparison FINDINGS: CEREBRAL PARENCHYMA: There are 2 similar appearing lesions in left side of the brain, both exhibiting subacute hemorrhage, surrounding edema, and mild enhancement following contrast injection. These are in the left occipit al lobe and left temporal lobe. Only mild mass effect. No shift. Both lesions measure approximatel y 3 x 2.4 cm. No other enhancing lesions in the brain. There are multiple foci of white matter sign al abnormality in the Ann and supra ventricular white matter consistent with chronic small vessel di sease. There are no significant findings in the cerebellar hemispheres nor within the luke and midbr ain and thalami. The abundant periventricular white matter disease is not exhibit restricted diffusi on to suggest recent infarct. PITUITARY GLAND: No mass nor parasellar abnormality. No obvious abnormality in the cavernous sinuses. FLOW VOIDS: The expected flow void are noted. No evidence of obvious aneurysm nor obvious vascular ma lformation. PARANASAL SINUSES: The visualized paranasal sinuses appear unremarkable. ORBITS: No obvious abnormal findings. IMPRESSION: 1. There are 2 similar appearing and similar size 3 x 2.4 cm hemorrhagic metastatic appearing lesions in left side of the brain, specifically in the left occipital lobe and left temporal lobe. There is mild surrounding edema with no shift of midline structures. 2. Multiple foci white matter chronic ischemic changes in the Ann in supra ventricular white matter. No evidence of restricted diffusion to suggest acute infarct. Report called by myself to the ER provider. DATA REPOSITORY:
--- NOTE | 2021-05-29 14:15 | DI.MRI_ITS ---
Exam(s) MR ANGIO NECK WO EXAM: MRA brain without IV contrast CLINICAL HISTORY: vision change. TECHNIQUE: MRA of intracranial arteries. Performed with [id number] sequence. CONTRAST MATERIAL: IV Contrast: None COMPARISON: None FINDINGS: ANTERIOR CIRCULATION: Both internal carotid arteries are patent in the skull base-carotid canals as w ell as within the cavernous sinuses. Supraclinoid aspects are patent. Both A1 segments are patent as are the anterior cerebral arteries. There is no evidence of aneurysm at the level of the anterior com municating artery. Both middle cerebral arteries are patent. POSTERIOR CIRCULATION: Basilar artery is formed by both vertebral arteries at the skull base. Basilar artery is patent. Distally gives off superior cerebellar arteries above this level terminates as pat ent bilateral CIS posterior cerebral arteries. Incidentally noted are concerning lesions in left side of the brain including left temporal left occi pital temporal lobe. IMPRESSION: 1. Patent intracranial arteries. Also no aneurysms. 2. Significant lesions in left side of the brain incidentally noted. Probably metastatic. Conventiona l contrast infused MRI recommended. DATA REPOSITORY:
[2021-05-29] MEDS: Normal Saline 500 ML IV (14:43)
[2021-05-29 15:01] LABS: Abs Immature Grans 0.03 10^3/uL (0.0-0.06); Absolute Basophil Count 0.03 10^3/uL (0.0-0.2); Absolute Eosinophil Count 0.09 10^3/uL (0.0-0.7); Absolute Lymphocyte Count 1.45 10^3/uL (1.2-3.4); Absolute Monocyte Count 0.88 10^3/uL (0.1-0.8); Absolute Neutrophil Count 4.26 10^3/uL (1.2-6.7); Basophils % 0.4; Eosinophils % 1.3; HCT 32.9 % (36.0-46.0); HGB 10.7 g/dL (11.2-15.7); Immature Grans % 0.4; Lymphocytes % 21.5; MCH 29.1 pg (27.0-33.0); MCHC 32.5 % (32.0-36.0); MCV 89.4 fL (80-95); MPV 10.5 fL (8.0-11.0); Monocytes % 13.1; Neutrophils % 63.3; Nucleated RBC 0 %; Platelet Count 240 10^3/uL (130-400); RBC 3.68 10^6/uL (3.93-5.22); RDW 13.2 % (11.7-14.6); RDW-SD 42.7 fL; WBC 6.74 10^3/uL (4.4-10.8)
[2021-05-29 15:18] LABS: BUN 10 mg/dL (7-18); Calcium 9.2 mg/dL (8.5-10.1); Glucose 93 mg/dL (74-106)
[2021-05-29 15:19] LABS: Albumin 3.5 g/dL (3.4-5.0); Alkaline Phosphatase 84 U/L (46-116); Anion Gap 6.6 mmol/L (3-11); Bilirubin, Total 0.3 mg/dL (0.2-1.0); CO2 29.4 mmol/L (21.0-32.0); CREATININE 0.8 mg/dL (0.55-1.02); Chloride 103 mmol/L (98-107); Potassium 3.7 mmol/L (3.5-5.1); Sodium 139 mmol/L (136-145); Total Protein 7.8 g/dL (6.4-8.2)
[2021-05-29 15:20] LABS: ALT 22 U/L (14-59); AST 17 U/L (15-37); TSH 5.04 uIU/mL (0.36-3.74); Troponin I < 0.05 ng/mL (<0.06)
[2021-05-29] MEDS: Normal Saline Flush 10 ML SYR IVP (15:29)
[2021-05-29] MEDS: Gadoterate meglumine 20 ML VIAL 15 ML IVP (15:30)
[2021-05-29 16:36] LABS: Clarity Clear (Clear); Glucose Negative (Negative); Ketones Negative (Negative); Leukocyte Esterase Trace (Negative); Nitrite Negative (Negative); Specific Gravity 1.015 (1.005-1.025); Urobilinogen 0.2 EU/dL (Up TO 0.2)
[2021-05-29 16:38] LABS: Bilirubin Negative (Negative); Blood Negative (Negative)
[2021-05-29 16:40] LABS: Bacteria Rare HPF (Negative); C & S Indicated? Yes; Casts Negative LPF (Negative); Crystals Negative HPF (Negative); Epithelial Cells Rare HPF (Negative); Mucus Negative (Negative); RBC Negative HPF (0-2); WBC 0-2 HPF (0-5)
--- NOTE | 2021-05-29 17:45 | RT.EKG_ITS ---
APPROVED REPORT Exam: Resting ECG Reason for Exam: 2nd ekg Patient Location: E HR:55 bpm ECG Measurements Heart Rate 55 AXIS AL 190 P 15 QRSd 95 QRS -26 QT 578 T 225 QTc 551 Conclusion Sinus bradycardia...rate< 60 Probable LVH with secondary repol abnrm...multiple LVH criteria Repol abnrm, global ischemia, diffuse leads...ST dep, T neg, ant/lat/inf Prolonged QT interval...QTc >500mS
[2021-05-29 18:36] VITALS: BP 164/72; PULSE 53; TEMP 35.4; O2SAT 98
[2021-05-29 18:36] LABS: Source Nasal/Nares
[2021-05-29 19:12] VITALS: BP 164/72; PULSE 53; RESP 18; TEMP 35.4; O2SAT 98
[2021-05-29 19:29] LABS: COVID-19 PCR Negative (Negative)
== END 2021-05-29 17:15 ==
PROVIDERS: Physician Assistant; Emergency Provider Physician Assistant; PCP Family Medicine
DX: I60.11 Nontraumatic subarachnoid hemorrhage from right middle cerebral artery (principal); H54.3 Unqualified visual loss, both eyes; R47.01 Aphasia; R05.1 Acute cough; R41.0 Disorientation, unspecified; E03.9 Hypothyroidism, unspecified; R39.198 Other difficulties with micturition
CPT/HCPCS: 36415; 70544; 70547; 70553; 80053; 87635; 93005; 96360; 99285; 71045; 81003; 81015; 83735; 84443; 84484; 85025; 87086; 93010

== ENCOUNTER 2021-06-20 12:09 | Emergency (ER) | payer MEDICARE, SELFPAY ==
[2021-06-20] VITALS (36 sets, daily range): BP systolic 122–163; BP diastolic 41–109; PULSE 60–98; RESP 12–24; TEMP 36.7–37.2; O2SAT 93–99
--- NOTE | 2021-06-20 12:24 | ED.GENADUL_ITS ---
Discharge Plan Disposition Patient Disposition: HOME Condition: Improving Discharge Details Clinical Impression: Foot pain, right, Bilateral leg pain, Chronic abdominal pain, Chronic back pain, Chronic headache Primary Care Provider: Alexander Aguirre ED Provider: Ammy Bailey Home Meds and New Rx's Prescriptions: Continued docusate sodium 50 mg capsule 50 mg PO DAILY PRNRF: 0 nystatin 100,000 unit/gram powder 1 applic TP BID PRN (Reason: tinea) Qty: 60 RF: 3 sertraline 25 mg tablet 25 mg PO DAILY Qty: 30 RF: 3 pyridoxine (vitamin B6) 100 mg tablet 100 mg PO DAILY RF: 0 magnesium chloride 64 mg magnesium tablet PO .1 x2 daily RF: 0 docusate sodium 100 mg capsule 100 mg PO DAILY PRNRF: 0 polyethylene glycol 3350 [Miralax] 17 gram/dose powder 17 g PO DAILY PRNRF: 0 lisinopril 10 mg tablet 5 mg PO DAILY Qty: 90 RF: 3 multivitamin [One Daily Multivitamin] tablet 1 tab PO BID RF: 0 cyanocobalamin (vitamin B-12) 500 mcg tablet 500 mcg PO DAILY RF: 0 estradiol 0.01 % (0.1 mg/gram) cream 1 g vaginal DIRECTED Qty: 60 RF: 3 ferrous gluconate 324 mg (38 mg iron) tablet 324 mg PO TID Qty: 90 RF: 6 oxycodone 5 mg tablet 5 mg PO Q8H MDD 15 mg PRN (Reason: pain) Qty: 30 RF: 0 levothyroxine 100 mcg tablet 100 mcg PO DAILY Qty: 30 RF: 3 zolpidem [Ambien CR] 12.5 mg tablet,ext release multiphase 12.5 mg PO QHS Qty: 30 RF: 3 Hold Instructions: Home Medication placed on hold at Doctor's office Medrol 2 mg tablet 1 mg PO DAILY RF: 0 Hold Instructions: Home Medication placed on hold at Doctor's office Discharge Instructions Instructions: Chronic Pain (ED), Chronic Back Pain (DC), Leg Pain (ED), Chronic Abdominal Pain (ED) Additional Instructions: Your lab work and imaging today is reassuring and does not note evidence of a cute abnormal findings. Your platelets on your blood work today were mildly low and should be rechecked by your primary care doctor in the next 1 to 2 weeks. Your leg and foot pain today may be the result of muscle strain or overuse from your physical therapy. You can take [id number] Tylenol or your oxycodone as needed and directed for pain. You can also try alternating ice and heat to the affected area several times daily for 20 minutes at a time. Follow-up with your primary care doctor in 1 week and for your scheduled follow- up and imaging scheduled with [facility] neuro-oncology this month. Return to the emergency department with any worsening or new concerning symptoms. Discharge Data Discharge Date/Time-TO BE ENTERED AT DEPARTURE: 06/20/21 17:16 Discharge Physician: Ammy Bailey Medical Decision Making 80-year-old female with multiple medical problems including past medical history of polymyalgia rheumatica, former heavy smoker, status post sigmoidectomy with end colostomy for perforation during colonoscopy in 2019 with recent vertebroplasty of T12 burst fracture 05/24 at [facility] with history of brain lesions concerning for brain metastasis with hemorrhage transferred to [facility] 05/31/21 presents with main complaint to me of right foot pain while walking with home health today. The triage complaint also noted a complaint of back pain and headache which patient did not endorse to me. Patient's main complaint is right foot pain, bilateral leg pain, and lower abdominal pain. Patient's main initial complaint to me was I would like to eat . When asked if she has been eating, she stated no because they will not feed me here yet but states she has been eating normally at home w/o fever, vomiting or change in bowel movements. She appears comfortable and nontoxic. Her vitals are within normal limits. Her abdomen is soft and nontender. Her legs are tender to palpation w/ very minimal light touch but no evidence of cellulitis or trauma. She is neurovascularly intact. She has midline T-spine tenderness but without evidence of cellulitis or trauma. She is moving all extremities and has no focal deficits. Her mucous membranes appear dry. She did not take her oxycodone that she has at home for her chronic pain. Overall she appears mildly dehydrated but nontoxic. She did not endorse headache to me but did to the triage nurse. As she was diagnosed with brain lesion concerning for metastasis with hemorrhage last month, will obtain a CT head to rule out new hemorrhage. Also obtain screening labs, urinalysis, CT abdomen and pelvis with view of T12. We will give her a dose of her oxycodone, fluids and reassess. Labs and imaging reviewed. Platelets 120, decreased compared to normal baseline. All normal white blood cell count. Normal electrolytes. Troponin negative. Lipase normal. Urinalysis negative. CT and x-ray imaging reviewed and negative for acute findings. Patient continued to ask for food and was able to eat a tray of food here in no acute distress. She was given a dose of her oxycodone with relief of her leg and foot pain. She was advised to follow-up with her PCP for reevaluation and may be hold on a few days of home health physical therapy at this may be contributing to her leg and foot pain. Usual and customary return precautions given prior to discharge. Medical Records Medical records reviewed: Yes I reviewed the patient's medical records. Imaging Data Radiologic Study: Radiologist's impression: XR FOOT RT COMPLETE CLINICAL HISTORY: R foot pain, r/o fx. TECHNIQUE: 2D digital imaging was performed. COMPARISON: No exams were available for comparison FINDINGS: No evidence of fracture nor diastasis of the Lisfranc joint. No osseous lesions nor erosions. No radiopaque foreign body. Moderate size inferior calcaneal spur is noted. No calcification in the plantar fascia. IMPRESSION: No fracture evident. CT HEAD WO CLINICAL HISTORY: headache, h/o known brain lesions found last month. TECHNIQUE: Imaging Protocol: Axial computed tomography images with coronal and sagittal reformatted images were created and reviewed COMPARISON: CT CT HEAD CERVICAL SPINE WO from 09/11/2018 MR MR BRAIN WO/W from 05/29/2021 FINDINGS: There are no skull fractures nor fluid in the visualized paranasal sinuses. Is no evidence of intracranial hemorrhage, intra or extra-axial. Area of hypodensity in the left occipital lobe is noted as well as in the left temporal lobe, these corresponding to the areas described on the brain MRI study of 05/29/2021. These were areas suspicious for metastatic disease. No shift of midline structures. Periventricular hypodensity is again noted consistent with chronic small vessel disease. IMPRESSION: Abnormal left-sided areas as described above in the left occipital lobe and left temporal lobe corresponding to areas described on the recent MRI scan of 05/29/2021. Mild edema. No shift of midline structures. Also chronic Ann in supra ventricular white matter ischemic changes, also previously documented on the prior MRI study. CT ABDOMEN PELVIS WO CLINICAL HISTORY: low abd/back pain,h/o colostomy/T12 vertebroplasty. TECHNIQUE: Imaging Protocol: Axial computed tomography images with coronal and sagittal reformatted images were created and reviewed CONTRAST MATERIAL: Intravenous: none Oral: None COMPARISON: CT CT ABDOMEN PELVIS W from 04/11/2021 FINDINGS: VISUALIZED LUNG BASES: No nodules nor pleural effusions evident. ABDOMEN: There is no ascites. LIVER: There are no obvious focal hepatic lesions evident of this noninfused study. GALLBLADDER/BILIARY: No obvious gallbladder pathology. CBD is not dilated. PANCREAS: No evidence of pancreatic mass nor dilatation of the pancreatic duct. SPLEEN: Spleen is not enlarged. No obvious intrasplenic lesions. ADRENALS: There are no significant adrenal masses. KIDNEYS:Benign exophytic cyst is again noted off the posterior cortex of the right kidney, this measuring 2 by 2 cm and just below this level is another c ontiguous slightly smaller benign cyst again noted. No significant focal findings in the opposite-left kidney. No calculi. No hydronephrosis. No hydroureter. Small diverticulum is seen on the right side of the urinary bladder, unchanged, and not containing mass nor calculi.. ABDOMINAL AORTA: Abdominal aorta is not enlarged. LYMPH NODES: There is no retroperitoneal nor paraaortic adenopathy. ABDOMINAL WALL: Left-sided colostomy again noted. GI: There is no evidence of bowel obstruction, free air, nor abscess. PELVIS: LYMPH NODES: There is no intrapelvic nor inguinal adenopathy. GI: No evidence of appendicitis.No evidence of sigmoid diverticulitis. URINARY BLADDER: Right-sided diverticulum again noted. No calculi therein. REPRODUCTIVE: The uterus is again noted be surgically absent. There are no abnormal adnexal masses nor free fluid in the pelvis. OSSEOUS: There is now vertebroplasty cement evident in the T12 vertebral body bilaterally no further increase in amount of posterior deviation of the posterior cortex nor further narrowing of the spinal canal at this level. No abnormal paraspinal mass at this level. No additional new compression fractures. IMPRESSION: 1. Compared to the prior CT scan 04/11/2021 there is again noted a left-sided colostomy. This again noted to contain a large peristomal hernia containing multiple loops of nonobstructed large bowel. No free air. No abscess. 2. Uterus is again noted be surgically absent. No abnormal adnexal masses. No free fluid. 3. Two contiguous benign cysts again noted in the right kidney. No solid renal masses. No hydronephrosis. Small right-sided bladder diverticulum without obvious complications therein. 4. T12 compression fracture again noted but there is been interval vertebroplasty. US EXTREMITY VENOUS BI CLINICAL HISTORY: BL leg pain, r/o dvt TECHNIQUE: Grayscale, color, and doppler imaging of the deep venous system of both lower extremities was performed. COMPARISON: US US ABDOMEN from 08/02/2020 FINDINGS: There is no evidence of intraluminal thrombus and there is normal compression and augmentation demonstrated within the common femoral veins, femoral veins, and popliteal veins of both lower extremities. In the calves the interrogated veins also exhibit normal compression/ augmentation properties. The greater saphenous veins also appear patent as do the saphenofemoral junctions bilaterally.. IMPRESSION: 1. No ultrasound evidence of DVT in either lower extremity. Lab Data Lab results reviewed: Yes I reviewed the patient's lab results. Labs: Laboratory Tests Range/Units 06/20/21 06/20/21 06/20/21 12:23 12:23 12:23 WBC (4.4-10.8) 10^3/uL 10.33 RBC (3.93-5.22) 10^6/uL 3.91 L Hgb (11.2-15.7) g/dL 11.2 Hct (36.0-46.0) % 35.9 L MCV (80-95) fL 91.8 MCH (27.0-33.0) pg 28.6 MCHC (32.0-36.0) % 31.2 L RDW (11.7-14.6) % 14.4 Plt Count (130-400) 10^3/uL 120 L D MPV (8.0-11.0) fL 10.0 Immature Gran % 1.2 Neutrophils % 78.7 Lymphocytes % 10.2 Monocytes % 9.5 Eosinophils % 0.3 Basophils % 0.1 Nucleated RBC % % 0 Absolute Neutrophils (1.2-6.7) 10^3/uL 8.14 H Absolute Lymphocytes (1.2-3.4) 10^3/uL 1.05 L Absolute Monocytes (0.1-0.8) 10^3/uL 0.98 H Absolute Eosinophils (0.0-0.7) 10^3/uL 0.03 Absolute Basophils (0.0-0.2) 10^3/uL 0.01 Sodium (136-145) mmol/L 135 L Potassium (3.5-5.1) mmol/L 3.5 Chloride (98-107) mmol/L 100 Carbon Dioxide (21.0-32.0) mmol/L 28.3 Anion Gap (3-11) mmol/L 6.7 BUN (7-18) mg/dL 17 Creatinine (0.55-1.02) mg/dL 0.8 Estimated GFR/1.73 m2 (mL/min/1.73m2) >= 60.00 Glucose (74-106) mg/dL 106 Calcium (8.5-10.1) mg/dL 8.3 L Magnesium (1.8-2.4) mg/dL 2.0 Total Bilirubin (0.2-1.0) mg/dL 0.4 AST (15-37) U/L 20 ALT (14-59) U/L 29 Alkaline Phosphatase (46-116) U/L 69 Troponin I (<0.06) ng/mL < 0.05 Total Protein (6.4-8.2) g/dL 5.9 L Albumin (3.4-5.0) g/dL 2.7 L Lipase (73-393) U/L 83 Urine Color (Yellow) Urine Clarity (Clear) Urine pH (5-8) Ur Specific [place] (1.005-1.025) Urine Protein (Negative) mg/dL Urine Ketones (Negative) mg/dL Urine Blood (Negative) Urine Nitrite (Negative) Urine Bilirubin (Negative) Urine Urobilinogen (Up TO 0.2) EU/dL Ur Leukocyte Esterase (Negative) Urine Glucose (Negative) mg/dL Range/Units 06/20/21 13:13 WBC (4.4-10.8) 10^3/uL RBC (3.93-5.22) 10^6/uL Hgb (11.2-15.7) g/dL Hct (36.0-46.0) % MCV (80-95) fL MCH (27.0-33.0) pg MCHC (32.0-36.0) % RDW (11.7-14.6) % Plt Count (130-400) 10^3/uL MPV (8.0-11.0) fL Immature Gran % Neutrophils % Lymphocytes % Monocytes % Eosinophils % Basophils % Nucleated RBC % % Absolute Neutrophils (1.2-6.7) 10^3/uL Absolute Lymphocytes (1.2-3.4) 10^3/uL Absolute Monocytes (0.1-0.8) 10^3/uL Absolute Eosinophils (0.0-0.7) 10^3/uL Absolute Basophils (0.0-0.2) 10^3/uL Sodium (136-145) mmol/L Potassium (3.5-5.1) mmol/L Chloride (98-107) mmol/L Carbon Dioxide (21.0-32.0) mmol/L Anion Gap (3-11) mmol/L BUN (7-18) mg/dL Creatinine (0.55-1.02) mg/dL Estimated GFR/1.73 m2 (mL/min/1.73m2) Glucose (74-106) mg/dL Calcium (8.5-10.1) mg/dL Magnesium (1.8-2.4) mg/dL Total Bilirubin (0.2-1.0) mg/dL AST (15-37) U/L ALT (14-59) U/L Alkaline Phosphatase (46-116) U/L Troponin I (<0.06) ng/mL Total Protein (6.4-8.2) g/dL Albumin (3.4-5.0) g/dL Lipase (73-393) U/L Urine Color (Yellow) Yellow Urine Clarity (Clear) Sl Cloudy Urine pH (5-8) 6.5 Ur Specific [place] (1.005-1.025) 1.025 Urine Protein (Negative) mg/dL Negative Urine Ketones (Negative) mg/dL Negative Urine Blood (Negative) Negative Urine Nitrite (Negative) Negative Urine Bilirubin (Negative) Negative Urine Urobilinogen (Up TO 0.2) EU/dL 0.2 Ur Leukocyte Esterase (Negative) Negative Urine Glucose (Negative) mg/dL Negative ECG Data Attestation: I personally reviewed and interpreted this ECG (s) as follows: Interpretation: Rate of 62, sinus, LVH. Deep T wave inversions in inferior, anterior and lateral leads, which is seen in previous EKG. No STEMI. HPI General Mode of arrival: ambulatory . Date/Time Provider Initiated Documentation: 06/20/21 12:38 . Limitations to Documentation: no limitations . Information obtained by: patient . HPI Narrative: Pt is a 80-year-old female with multiple medical problems including past medical history of polymyalgia rheumatica, former heavy smoker, status post sigmoidectomy with end colostomy for perforation during colonoscopy in 2019 with recent vertebroplasty of T12 burst fracture 05/24 at [facility] with history of brain lesions concerning for brain metastasis for which she was transferred to [facility] 05/29/21 presents with multiples complaints, mainly right foot pain, b/l leg pain, worse in right leg, lower abdominal pain, back pain, headache, and weakness. She mainly endorsed to me that her main complaint is that she is hungry but they won't feed me here. She states she has chronic intermittent headaches for the past month. Review of records note that she was transferred to [facility] last month 05/29/21 after seen in the ED for headache, word finding difficulties and subtle right visual field deficits. She had MRI/MRA at that time which noted left temporal and occipital brain lesions were thought to be potentially brain metastasis with hemorrhage which appeared stable on repeat imaging with no primary tumor found and with no new neurologic deficits, was discharged home with plan for follow-up with neuro oncology at [facility] for repeat imaging this month. She denies any headache at this time and states this intermittent headache is consistent with what she has had over the past month and no worse than usual. She states she has had chronic intermittent back pain since her T12 vertebroplasty at [facility] last month and states this is no worse than usual. She states she has had lower abdominal pain since yesterday but has been eating normally without fever, vomiting or change in bowel habits. She did receive an enema for home health today. She states she was walking with home health today using her walker and complained of bilateral leg pain, worse on the right with specific pain in her right foot. She denies any new injury. She states she thinks she may not be drinking as much water as she should and thinks she is not urinating as much as usual because she may be dehydrated. Related Data Home Medications Medication Instructions Recorded Confirmed multivitamin 1 tab PO BID tab 08/06/18 06/20/21 docusate sodium 50 mg capsule 50 mg PO DAILY PRN 07/27/19 06/20/21 cyanocobalamin (vitamin B-12) 500 500 mcg PO DAILY 08/22/19 06/20/21 mcg tablet methylprednisolone 2 mg tablet 1 mg PO DAILY tab 06/04/20 06/20/21 estradiol 1 g VAGINAL DIRECTED #60 g 08/02/20 06/20/21 ferrous gluconate 324 mg (38 mg 324 mg PO TID #90 tab 08/21/20 06/20/21 iron) tablet nystatin 100,000 unit/gram topical 1 applic TP BID PRN #60 gm 09/26/20 06/20/21 powder sertraline 25 mg tablet 25 mg PO DAILY #30 tab 04/02/21 06/20/21 oxycodone 5 mg tablet 5 mg PO Q8H PRN #30 tab MDD 15 mg 05/20/21 06/20/21 docusate sodium 100 mg capsule 100 mg PO DAILY PRN 06/05/21 06/20/21 levothyroxine 100 mcg tablet 100 mcg PO DAILY #30 tab 06/05/21 06/20/21 lisinopril 10 mg tablet 5 mg PO DAILY #90 tab 06/05/21 06/20/21 magnesium chloride mg PO .1 x2 daily tab 06/05/21 06/05/21 polyethylene glycol 3350 17 17 g PO DAILY PRN 06/05/21 06/20/21 gram/dose oral powder pyridoxine (vitamin B6) 100 mg 100 mg PO DAILY tab 06/05/21 06/20/21 tablet zolpidem 12.5 mg tablet,extended 12.5 mg PO QHS #30 tab 06/14/21 06/20/21 release,multiphase Previous Rx's Medication Instructions Recorded estradiol 1 g VAGINAL DIRECTED #60 g 08/02/20 ferrous gluconate 324 mg (38 mg 324 mg PO TID #90 tab 08/21/20 iron) tablet nystatin 100,000 unit/gram topical 1 applic TP BID PRN #60 gm 09/26/20 powder sertraline 25 mg tablet 25 mg PO DAILY #30 tab 04/02/21 oxycodone 5 mg tablet 5 mg PO Q8H PRN #30 tab MDD 15 mg 05/20/21 levothyroxine 100 mcg tablet 100 mcg PO DAILY #30 tab 06/05/21 lisinopril 10 mg tablet 5 mg PO DAILY #90 tab 06/05/21 zolpidem 12.5 mg tablet,extended 12.5 mg PO QHS #30 tab 06/14/21 release,multiphase Allergies Allergy/AdvReac Type Severity Reaction Status Date / Time banana Allergy Intermediate Other (See Verified 06/20/21 12:19 Comment) cucumber Allergy Intermediate Other (See Verified 06/20/21 12:19 Comment) Iodinated Contrast Media Allergy Intermediate Anaphylaxis Unverified 06/20/21 12:19 chloramphenicol AdvReac Severe KIDNEY Verified 06/20/21 12:19 FAILURE tetracycline AdvReac Severe KIDNEY Verified 06/20/21 12:19 FAILURE melon AdvReac Intermediate Cantaloupe-Abd Verified 06/20/21 12:19 pain, diarrhea ADHESIVE TAPE Allergy Intermediate takes skin Uncoded 06/20/21 12:19 off SUTURE MATERIAL Allergy Intermediate Purluent Uncoded 06/20/21 12:19 Drainage General Stated Complaint: GenMedical JOSHUA: 3 Review of Systems All systems reviewed & are unremarkable except as noted in HPI and below Constitutional Constitutional: Reports as per HPI, Denies chills, Denies fever(s) and Reports weakness Eyes Eyes: Denies blurry vision ENT Ears, Nose, Mouth, and Throat: Denies dizziness, Denies sore throat and Denies throat swelling Cardiovascular Cardiovascular: Denies chest pain and Denies dyspnea Respiratory Respiratory: Denies cough and Denies dyspnea Gastrointestinal Gastrointestinal: Reports abdominal pain, Denies diarrhea and Denies vomiting Genitourinary Genitourinary: Denies hematuria and Denies dysuria Musculoskeletal Musculoskeletal: Reports back pain and Denies numbness Integumentary/Breasts Skin/Breast: Denies lesions and Denies rash Neurologic Neurologic: Denies dizziness, Denies localized weakness, Denies numbness and Reports weakness Allergic/Immunologic Allergic/Immunologic: Denies throat swelling [facility] Active Problem List (Updated 06/20/21 @ 15:46 by Ammy Bailey DO) Foot pain, right (Acute) Bilateral leg pain (Acute) Chronic abdominal pain (Acute) Chronic back pain (Acute) Chronic headache (Acute) Peristomal hernia (Acute) Abdominal pain (Acute) Brain bleed (Acute) Syncope (Chronic) GERD (gastroesophageal reflux disease) (Chronic) Cerebral amyloid angiopathy (Acute) Urethral caruncle (Acute) Vaginal atrophy (Acute) Feeling of incomplete bladder emptying (Acute) Urinary hesitancy (Acute) High blood pressure (Chronic) Gout (Chronic) Medical cannabis use (Acute) T12 burst fracture (Acute) Dizziness (Acute) Diverticulitis of colon (Acute) History of esophagogastroduodenoscopy (Acute) Injury of head (Acute 06/18/94) Polyp of colon (Acute) Smoker (Acute) Hypokalemia (Acute) Rectovaginal fistula (Acute) Colitis (Acute) Ambulatory dysfunction (Acute) Anemia of chronic disease (Acute) S/P colon resection (Acute) Steroid dependent (Acute) Constipation by delayed colonic transit (Acute) Urinary retention with incomplete bladder emptying (Acute) Supraclavicular mass (Chronic) Adrenal insufficiency (Acute) Compression fracture of body of thoracic vertebra (Acute) Pain management (Acute) Palliative care patient (Chronic) Leg pain, bilateral (Acute) Acute adrenal insufficiency (Acute) Chronic adrenal insufficiency (Chronic) Leukocytosis (Chronic) Postoperative wound hematoma (Acute) Nausea & vomiting (Acute) Wound discharge (Acute) Bilious emesis (Acute) Postoperative abdominal pain (Acute) Lower gastrointestinal bleed (Acute) S/P exploratory laparotomy (Chronic ~06/28/18) Hypomagnesemia (Acute) Anemia (Acute) Hypokalemia (Acute) Perforation of colon as colonoscopy complication (Acute) Raynaud's disease (Acute) Primary osteoarthritis of left knee (Acute 07/30/15) PMR (polymyalgia rheumatica) (Chronic 01/15/16) Osteoporosis (Acute) Obstructive sleep apnea syndrome (Acute) Non-alcoholic fatty liver disease (Acute) Memory impairment (Chronic 06/18/94) Abnormal liver enzymes (Acute 04/05/12) Increased body mass index (Acute) Hypothyroidism (Acute 04/05/12) Excessive sweating (Acute 06/02/16) Depressive disorder (Chronic) Colon polyp (Acute 06/28/18) Cataract (Acute 07/28/14) Benign paroxysmal positional vertigo (Acute) Medical History (Updated 06/20/21 @ 15:46 by Ammy Bailey DO) Insomnia Tuberculosis Surgical History Abdominal hysterectomy (~1975) Appendectomy Bilateral salpingectomy with oophorectomy (~1975) Colonoscopy - [facility] ADENOMA COLON POLYPS 1997, NONE ON MULTIPLE SUBSEQUENT COLONOSCOPIES, MOST RECENT C-SCOPE 2005 WAS NORMAL, 2018 - cecal polyp, diverticulosis EGD - [facility] (~2003) MILD EROSIVE ESOPHAGITIS, NO PINON'S ON BIOPSY H/O dilation and curettage H/O partial resection of colon Sigmoid colon resection 06/28/18 Laparoscopic, Ovarian Cystectomy B/L Rotator Cuff Repair B/L S/P tonsillectomy Family History Mother , in her 80s from pneumonia Heart disease Pneumonia Father , from complications of prostate surgery in his 80s Stroke Personal history of malignant neoplasm Heart disease Brother , aged 68 Alcohol abuse Cirrhosis with alcoholism Grandfather Essential hypertension Heart disease Grandmother Personal history of malignant neoplasm Stroke Grandmother Personal history of malignant neoplasm Son , from his drinking/SA; her oldest child Alcohol abuse Social History Smoking/Tobacco Use Status: Former Tobacco Use Smoking risk assessment performed?: Yes Alcohol Intake: current Alcohol Intake frequency: a few times a month Alcohol type: hard liquor Drug use: Never Substance use type: does not use Household members: other 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 Exam Const General: cooperative and no acute distress HENMT Head: normal to inspection Face and sinus: normal facial exam Mouth: abnormal oral mucosae Eyes General: appearance normal, both eyes and all related structures Pupils: PERRL EOM: EOM intact bilaterally Neck Neck: normal visual inspection and No submandibular swelling Lymphatic: no lymphadenopathy noted Chest Chest: normal inspection of the chest and no tenderness Resp Effort & Inspection: normal respiratory effort and able to speak in complete sentences Auscultation: clear to auscultation bilaterally Cardio Rate: regular rate Rhythm: regular rhythm GI Inspection: normal to inspection and other (colostomy bag present) Palpation: soft, not firm, not rigid and tender in the LLQ, in the RLQ and suprapubicly Auscultation: hypoactive bowel sounds Back/Spine/Pelvis Thoracic/Lumbar Spine: thoracic and lumbar spine normal to inspection, thoracic spinal tenderness (distal T spine) and No lumbar spinal tenderness Skin General skin exam: no rashes or lesions noted Neuro General: patient alert, patient awake, patient oriented x3, moves all extremities, no meningeal signs and no focal motor deficits Cognition: normal cognition Speech: speech normal Motor: muscle tone normal throughout and strength 5/5 throughout Sensory Exam: no sensory deficits noted Extrem General: normal to inspection, full ROM, capillary refill normal, no calf tenderness bilaterally and no edema Other: Tenderness to palpation the entire length of bilateral lower extremities with very minimal light touch. There is no erythema, ecchymosis, edema, rash or lesions. There is normal range of motion to the legs which appears normal without significant decreased range of motion but patient appears comfortable with movement. Bilateral DP/PT pulses intact. Psych Appearance: grossly normal Mental Status: mental status grossly normal Speech and Movement: speech and movement normal Affect: normal affect Course Vital Signs Vital signs: Vital Signs Temperature 98.1 F 06/20/21 12:13 Pulse 67 06/20/21 12:13 Respiratory Rate 16 06/20/21 12:13 Blood Pressure 129/45 L 06/20/21 12:13 Pulse Oximetry 98 06/20/21 12:13 Temperature 98.1 F 06/20/21 12:13 Temperature Source Tympanic 06/20/21 12:13 Pulse 67 06/20/21 12:13 Respiratory Rate 16 06/20/21 12:13 Respiratory Effort 06/20/21 12:13 Blood Pressure 129/45 L 06/20/21 12:13 Pulse Oximetry 98 06/20/21 12:13 Oxygen Delivery Method Room Air 06/20/21 12:13 Oxygen Flow Rate 0 06/20/21 12:13 Pain Level 4 06/20/21 12:13
[2021-06-20 12:32] LABS: Abs Immature Grans 0.12 10^3/uL (0.0-0.06); Absolute Basophil Count 0.01 10^3/uL (0.0-0.2); Absolute Eosinophil Count 0.03 10^3/uL (0.0-0.7); Absolute Lymphocyte Count 1.05 10^3/uL (1.2-3.4); Absolute Monocyte Count 0.98 10^3/uL (0.1-0.8); Absolute Neutrophil Count 8.14 10^3/uL (1.2-6.7); Basophils % 0.1; Eosinophils % 0.3; HCT 35.9 % (36.0-46.0); HGB 11.2 g/dL (11.2-15.7); Immature Grans % 1.2; Lymphocytes % 10.2; MCH 28.6 pg (27.0-33.0); MCHC 31.2 % (32.0-36.0); MCV 91.8 fL (80-95); Monocytes % 9.5; Neutrophils % 78.7; Nucleated RBC 0 %; Platelet Count 120 10^3/uL (130-400); RBC 3.91 10^6/uL (3.93-5.22); RDW 14.4 % (11.7-14.6); RDW-SD 48.9 fL; WBC 10.33 10^3/uL (4.4-10.8)
[2021-06-20 12:50] LABS: ALT 29 U/L (14-59); AST 20 U/L (15-37); Albumin 2.7 g/dL (3.4-5.0); Alkaline Phosphatase 69 U/L (46-116); Anion Gap 6.7 mmol/L (3-11); BUN 17 mg/dL (7-18); Bilirubin, Total 0.4 mg/dL (0.2-1.0); CO2 28.3 mmol/L (21.0-32.0); CREATININE 0.8 mg/dL (0.55-1.02); Calcium 8.3 mg/dL (8.5-10.1); Chloride 100 mmol/L (98-107); Glucose 106 mg/dL (74-106); Potassium 3.5 mmol/L (3.5-5.1); Sodium 135 mmol/L (136-145); Total Protein 5.9 g/dL (6.4-8.2); Troponin I < 0.05 ng/mL (<0.06)
--- NOTE | 2021-06-20 13:00 | RT.EKG_ITS ---
APPROVED REPORT Exam: Resting ECG Reason for Exam: weakness Patient Location: E HR:62 bpm ECG Measurements Heart Rate 62 AXIS AK 167 P 18 QRSd 92 QRS -24 QT 505 T 199 QTc 514 Conclusion Sinus rhythm...normal P axis, V-rate 60- 99 LVH with secondary repolarization abnormality...multi-LVH criteria, abnrm ST-T Abnormal T, consider ischemia, inferior leads...T <-0.20mV, II III aVF Prolonged QT interval...QTc >500mS. Sinus. Diffuse T wave inversion, seen in previous EKG. No STEMI. I have reviewed and interpreted ECG and agree with software generated interpretation.
--- NOTE | 2021-06-20 13:07 | DI.US_ITS ---
Exam(s) US EXTREMITY VENOUS BI EXAM: US EXTREMITY VENOUS BI CLINICAL HISTORY: BL leg pain, r/o dvt TECHNIQUE: Grayscale, color, and doppler imaging of the deep venous system of both lower extremities was performed. COMPARISON: US US ABDOMEN from 08/02/2020 FINDINGS: There is no evidence of intraluminal thrombus and there is normal compression and augmentation demons trated within the common femoral veins, femoral veins, and popliteal veins of both lower extremities. In the calves the interrogated veins also exhibit normal compression/ augmentation properties. The greater saphenous veins also appear patent as do the saphenofemoral junctions bilaterally.. IMPRESSION: 1. No ultrasound evidence of DVT in either lower extremity. DATA REPOSITORY:
[2021-06-20 13:22] LABS: Bilirubin Negative (Negative); Blood Negative (Negative); Clarity Sl Cloudy (Clear); Glucose Negative (Negative); Ketones Negative (Negative); Leukocyte Esterase Negative (Negative); Nitrite Negative (Negative); Specific Gravity 1.025 (1.005-1.025); Urobilinogen 0.2 EU/dL (Up TO 0.2); pH 6.5 (5-8)
--- NOTE | 2021-06-20 13:30 | DI.RAD_ITS ---
Exam(s) XR FOOT RT COMPLETE EXAM: XR FOOT RT COMPLETE CLINICAL HISTORY: R foot pain, r/o fx. TECHNIQUE: 2D digital imaging was performed. COMPARISON: No exams were available for comparison FINDINGS: No evidence of fracture nor diastasis of the Lisfranc joint. No osseous lesions nor erosions. No ra diopaque foreign body. Moderate size inferior calcaneal spur is noted. No calcification in the plan tar fascia. IMPRESSION: No fracture evident. DATA REPOSITORY: RADIATION DOSE DELIVERED:
[2021-06-20] MEDS: Normal Saline 500 ML IV (13:33)
[2021-06-20] MEDS: oxyCODONE 5 MG TAB PO (13:36)
[2021-06-20 13:37] LABS: Lipase 83 U/L (73-393)
--- NOTE | 2021-06-20 14:07 | DI.CT_ITS ---
Exam(s) CT HEAD WO EXAM: CT HEAD WO CLINICAL HISTORY: headache, h/o known brain lesions found last month. TECHNIQUE: Imaging Protocol: Axial computed tomography images with coronal and sagittal reformatted images were created and reviewed COMPARISON: CT CT HEAD CERVICAL SPINE WO from 09/11/2018 MR MR BRAIN WO/W from 05/29/2021 FINDINGS: There are no skull fractures nor fluid in the visualized paranasal sinuses. Is no evidence of intracranial hemorrhage, intra or extra-axial. Area of hypodensity in the left occ ipital lobe is noted as well as in the left temporal lobe, these corresponding to the areas described on the brain MRI study of 05/29/2021. These were areas suspicious for metastatic disease. No shift of midline structures. Periventricular hypodensity is again noted consistent with chronic small ves brian disease. IMPRESSION: Abnormal left-sided areas as described above in the left occipital lobe and left temporal lobe corres ponding to areas described on the recent MRI scan of 05/29/2021. Mild edema. No shift of midline st ructures. 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 RADIATION OPTIMIZATION: All CT scans at this facility use at least one of these dose optimization te chniques: automated exposure control; mA and/or kV adjustment per patient size (includes targeted exa ms where dose is matched to clinical indication); or iterative reconstruction.
--- NOTE | 2021-06-20 14:12 | DI.CT_ITS ---
Exam(s) CT ABDOMEN PELVIS WO EXAM: CT ABDOMEN PELVIS WO CLINICAL HISTORY: low abd/back pain,h/o colostomy/T12 vertebroplasty. TECHNIQUE: Imaging Protocol: Axial computed tomography images with coronal and sagittal reformatted images were created and reviewed CONTRAST MATERIAL: Intravenous: none Oral: None COMPARISON: CT CT ABDOMEN PELVIS W from 04/11/2021 FINDINGS: VISUALIZED LUNG BASES: No nodules nor pleural effusions evident. ABDOMEN: There is no ascites. LIVER: There are no obvious focal hepatic lesions evident of this noninfused study. GALLBLADDER/BILIARY: No obvious gallbladder pathology. CBD is not dilated. PANCREAS: No evidence of pancreatic mass nor dilatation of the pancreatic duct. SPLEEN: Spleen is not enlarged. No obvious intrasplenic lesions. ADRENALS: There are no significant adrenal masses. KIDNEYS:Benign exophytic cyst is again noted off the posterior cortex of the right kidney, this measu ring 2 by 2 cm and just below this level is another contiguous slightly smaller benign cyst again not ed. No significant focal findings in the opposite-left kidney. No calculi. No hydronephrosis. No hydroureter. Small diverticulum is seen on the right side of the urinary bladder, unchanged, and not containing mass nor calculi.. ABDOMINAL AORTA: Abdominal aorta is not enlarged. LYMPH NODES: There is no retroperitoneal nor paraaortic adenopathy. ABDOMINAL WALL: Left-sided colostomy again noted. GI: There is no evidence of bowel obstruction, free air, nor abscess. PELVIS: LYMPH NODES: There is no intrapelvic nor inguinal adenopathy. GI: No evidence of appendicitis.No evidence of sigmoid diverticulitis. URINARY BLADDER: Right-sided diverticulum again noted. No calculi therein. REPRODUCTIVE: The uterus is again noted be surgically absent. There are no abnormal adnexal masses n or free fluid in the pelvis. OSSEOUS: There is now vertebroplasty cement evident in the T12 vertebral body bilaterally no further increase in amount of posterior deviation of the posterior cortex nor further narrowing of the spinal canal at this level. No abnormal paraspinal mass at this level. No additional new compression frac tures. IMPRESSION: 1. Compared to the prior CT scan 04/11/2021 there is again noted a left-sided colostomy. This again noted to contain a large peristomal hernia containing multiple loops of nonobstructed large bowel. N o free air. No abscess. 2. Uterus is again noted be surgically absent. No abnormal adnexal masses. No free fluid. 3. Two contiguous benign cysts again noted in the right kidney. No solid renal masses. No hydroneph rosis. Small right-sided bladder diverticulum without obvious complications therein. 4. T12 compression fracture again noted but there is been interval vertebroplasty. Findings discussed with ER provider. RADIATION DOSE DELIVERED: 901.42mGy.cm Total DLP DATA REPOSITORY: All CT scans at this facility are submitted to the National Radiology Data Registry (NRDR) Dose Index Registry (DIR) with the [employer] ([employer]). RADIATION OPTIMIZATION: All CT scans at this facility use at least one of these dose optimization te chniques: automated exposure control; mA and/or kV adjustment per patient size (includes targeted exa ms where dose is matched to clinical indication); or iterative reconstruction.
--- NOTE | 2021-06-20 16:41 | NUR.NOTE ---
pt and provided with meals Nursing Note:
== END 2021-06-20 17:16 | disposition home or self-care (01) ==
PROVIDERS: Emergency Provider Physician Assistant; PCP Family Medicine
DX: M79.671 Pain in right foot (principal); M79.605 Pain in left leg; M79.604 Pain in right leg; R10.30 Lower abdominal pain, unspecified; M54.9 Dorsalgia, unspecified; R51.9 Headache, unspecified
CPT/HCPCS: 36415; 51701; 80053; 83690; 93005; 96360; 99285; 70450; 73630; 74176; 81003; 83735; 84484; 85025; 93010; 93970; 99284

== ENCOUNTER 2021-11-28 16:36 | Outpatient (REF) | payer MEDICARE, SELFPAY | END 2021-11-28 16:37 | disposition home or self-care (01) | LOC: LBN 16:36 | PROVIDERS: PCP Family Medicine; Visit Provider Obstetrics & Gynecology | DX: R30.0 Dysuria (principal) | CPT/HCPCS: 87086 ==

== ENCOUNTER 2021-12-11 04:28 | Outpatient (CLI) | payer MEDICARE, SELFPAY | END 2021-12-11 04:29 | disposition home or self-care (01) | LOC: LBO 04:28 | PROVIDERS: PCP Family Medicine; Visit Provider Family Medicine | DX: E03.9 Hypothyroidism, unspecified (principal) | CPT/HCPCS: 36415; 84443 ==

== ENCOUNTER → 2022-04-02 00:41 | Outpatient (CLI) | payer MEDICARE, SELFPAY ==
[2022-04-02] MEDS: Barium Sulfate 2% W/V-Berry Smoothie 450 ML BTL PO (10:12)
--- NOTE | 2022-04-02 10:15 | DI.CT_ITS ---
Exam(s) CT ABDOMEN PELVIS WO EXAM: CT ABDOMEN PELVIS WO CLINICAL HISTORY: abdominal pain, guiac positive, diarrhea, R10.9. TECHNIQUE: Imaging Protocol: Axial computed tomography images with coronal and sagittal reformatted images were created and reviewed CONTRAST MATERIAL: Intravenous: none Oral: Yes. Oral contrast was administered for bowel opacification. COMPARISON: CT CT ABDOMEN PELVIS WO from 06/20/2021 FINDINGS: VISUALIZED LUNG BASES: No nodules nor pleural effusions evident. ABDOMEN: There is no ascites. LIVER: There are no obvious focal hepatic lesions evident of this noninfused study. GALLBLADDER/BILIARY: No obvious gallbladder pathology. CBD is not dilated. PANCREAS: No evidence of pancreatic mass nor dilatation of the pancreatic duct. SPLEEN: Spleen is not enlarged. No obvious intrasplenic lesions. ADRENALS: There are no significant adrenal masses. KIDNEYS:Left kidney unremarkable. Benign cysts in the right kidney again noted. Largest of these me asures 2 cm x 2 cm. No solid renal masses. No calculi nor hydronephrosis. . ABDOMINAL AORTA: Calcified but not enlarged. LYMPH NODES: There is no retroperitoneal nor paraaortic adenopathy. ABDOMINAL WALL/GI: Again noted is left colostomy site. There is a colostomy site related hernia sac which appears unchanged. GI: There is no evidence of small bowel obstruction, free air, nor abscess. PELVIS: LYMPH NODES: There is no intrapelvic nor inguinal adenopathy. GI: No evidence of appendicitis.No evidence of diverticulitis. URINARY BLADDER: No calculi nor obvious masses evident REPRODUCTIVE: Uterus is again noted be surgically absent. No abnormal adnexal masses. No free fluid . OSSEOUS: Vertebroplasty cement again noted T12 vertebral body bilaterally, appearing unchanged. IMPRESSION: 1. Left-sided colostomy site again noted with peristomal hernia containing loops of nonobstructed lar ge bowel again evident. No free air. No obstruction. No abscess. 2. Uterus is again noted be surgically absent. No abnormal adnexal masses and no free fluid. 3. Vertebroplasty again evident in both sides of the posterior aspects of T12 vertebral body, unchang ed. No further compromise of the spinal canal at this level. Mild degenerative anterolisthesis L5 upon S1 noted as well as vacuum phenomena within the L5-S1 disc space which was not previously present. RADIATION DOSE DELIVERED: 985.54mGy.cm Total DLP DATA REPOSITORY: All CT scans at this facility are submitted to the National Radiology Data Registry (NRDR) Dose Index Registry (DIR) with the [employer] ([employer]). RADIATION OPTIMIZATION: All CT scans at this facility use at least one of these dose optimization te chniques: automated exposure control; mA and/or kV adjustment per patient size (includes targeted exa ms where dose is matched to clinical indication); or iterative reconstruction.
[2022-04-02 11:46] LABS: Abs Immature Grans 0.04 10^3/uL (0.0-0.06); Absolute Basophil Count 0.06 10^3/uL (0.0-0.2); Absolute Eosinophil Count 0.15 10^3/uL (0.0-0.7); Absolute Lymphocyte Count 1.82 10^3/uL (1.2-3.4); Absolute Monocyte Count 0.82 10^3/uL (0.1-0.8); Absolute Neutrophil Count 5.73 10^3/uL (1.2-6.7); Basophils % 0.7; Eosinophils % 1.7; HCT 34.2 % (36.0-46.0); HGB 11.1 g/dL (11.2-15.7); Immature Grans % 0.5; Lymphocytes % 21.1; MCH 28.8 pg (27.0-33.0); MCHC 32.5 % (32.0-36.0); MCV 89 fL (80-95); MPV 10.2 fL (8.0-11.0); Monocytes % 9.5; Neutrophils % 66.5; Platelet Count 293 10^3/uL (130-400); RBC 3.85 10^6/uL (3.93-5.22); RDW 13.4 % (11.7-14.6); RDW-SD 43.5 fL; WBC 8.62 10^3/uL (4.4-10.8)
[2022-04-02 12:17] LABS: ALT 19 U/L (14-59); AST 14 U/L (15-37); Albumin 3.3 g/dL (3.4-5.0); Alkaline Phosphatase 82 U/L (46-116); Anion Gap 7.2 mmol/L (3-11); BUN 17 mg/dL (7-18); Bilirubin, Total 0.2 mg/dL (0.2-1.0); CO2 27.8 mmol/L (21.0-32.0); CREATININE 0.8 mg/dL (0.55-1.02); Calcium 8.9 mg/dL (8.5-10.1); Chloride 104 mmol/L (98-107); Estimated GFR 74.44 (mL/min/1.73m2); Glucose 95 mg/dL (74-106); Potassium 3.8 mmol/L (3.5-5.1); Sodium 139 mmol/L (136-145); Total Protein 7.7 g/dL (6.4-8.2)
== END ==
PROVIDERS: PCP Family Medicine; Visit Provider Physician Assistant
DX: R10.9 Unspecified abdominal pain (principal); R19.7 Diarrhea, unspecified; N28.1 Cyst of kidney, acquired; Z90.710 Acquired absence of both cervix and uterus; K43.5 Parastomal hernia without obstruction or gangrene; Z93.3 Colostomy status
CPT/HCPCS: 80053; 74176; 85025

== ENCOUNTER 2022-04-02 18:49 | Outpatient (REF) | payer MEDICARE, SELFPAY ==
[2022-04-02 19:46] LABS: Campylobacter PCR Negative (Negative); Salmonella PCR Negative (Negative); Shiga Toxin PCR Negative (Negative); Shigella/Enteroinvasive Ecoli Negative (Negative)
== END 2022-04-02 18:50 | disposition home or self-care (01) ==
LOC: LBN 18:49
PROVIDERS: PCP Family Medicine; Visit Provider Physician Assistant
DX: R19.7 Diarrhea, unspecified (principal)
CPT/HCPCS: 87505

== ENCOUNTER 2022-07-28 08:53 | Emergency (ER) | payer MEDICARE, SELFPAY ==
--- NOTE | 2022-07-28 08:51 | W.ED.GENAD ---
Discharge Plan Disposition Patient Disposition: Home Condition: Stable Discharge Details Clinical Impression: Abdominal pain, Chronic back pain Primary Care Provider: Keyana Olivas ED Provider: Ammy Bailey Home Meds and New Rx's Prescriptions: Continued pyridoxine (vitamin B6) 100 mg tablet 100 mg PO DAILY magnesium chloride 64 mg magnesium tablet 64 mg PO .1 x2 daily polyethylene glycol 3350 [Miralax] 17 gram/dose powder 17 g PO DAILY PRN multivitamin [One Daily Multivitamin] tablet 1 tab PO BID cyanocobalamin (vitamin B-12) 500 mcg tablet 500 mcg PO DAILY lisinopril 10 mg tablet 10 mg PO DAILY Qty: 90 3RF Label Comments: hasnt been taking levothyroxine 100 mcg tablet 100 mcg PO DAILY Qty: 90 3RF Label Comments: not taking the way /i should ferrous gluconate 324 mg (38 mg iron) tablet 324 mg PO TID Qty: 90 6RF zolpidem [Ambien CR] 12.5 mg tablet,ext release multiphase 12.5 mg PO QHS Qty: 28 3RF Hold Instructions: Home Medication placed on hold at Doctor's office No Action duloxetine 20 mg capsule,delayed release(DR/EC) 40 mg PO DAILY Qty: 60 1RF Label Comments: not taking methylprednisolone 4 mg tablet 4 mg PO DAILY Label Comments: TAKE ONE BY MOUTH EVERY DAY AFTER BREAKFAST FOR 30 DAYS oxycodone 5 mg tablet 5 mg PO DAILY PRN (Reason: severe pain (scale score 7-10)) Discharge Instructions Instructions: Abdominal Pain (ED), Back Pain (ED) Additional Instructions: Your blood tests and imaging today are reassuring and show no evidence of acute concerning or significant findings. Drink plenty of fluids and get plenty of rest. Alternate tylenol and motrin as needed and directed for pain. Take the tramadol you were given for home as needed and directed for pain not relieved with Tylenol and Motrin Call your primary care doctor's office today to make sure you have a follow-up appointment for this Thursday for reevaluation. Return immediately to the emergency department if you develop any worsening or new concerning symptoms. Discharge Data Discharge Date/Time-TO BE ENTERED AT DEPARTURE: 07/28/22 13:37 Discharge Physician: Ammy Bailey Medical Decision Making 904 -- 82yo F w/ a h/o multiple medical problems including past medical history of cva, polymyalgia rheumatica, former smoker, anxiety, depression, sleep apnea, appendectomy, hysterectomy, status post sigmoidectomy with end colostomy for perforation during colonoscopy in 2019, vertebroplasty of T12 burst fracture?and chronic pain on scheduled oxycodone presents to the ED w/ a c/o abdominal and back pain x 10 days. Also c/o decreased urine output for several months. BP moderately hypertensive. Patient appears uncomfortable holding her left lower quadrant and moaning in pain at times. Her abdomen otherwise is soft with no surrounding cellulitis around ostomy site. There is no rigidity or guarding or peritoneal signs. Her back is normal to inspection without CVA tenderness. She has no midline spinal tenderness. She is moving all extremities without focal deficits. Review of chart notes a history of anaphylaxis with IV dye. We will proceed with CT chest abdomen pelvis with oral contrast, screening labs, urinalysis and give a dose of IV Tylenol and IV Toradol and reassess. 1230 --labs and imaging reviewed. Normal white blood cell count. Hemoglobin 9.9 which is down trended from 11 in March 2021 but no report of bleeding from colostomy. Potassium 3.3, will replete. Urinalysis notes 10-20 WBCs with small leukocyte esterase but rare bacteria and negative nitrite so suspect contamination. CT reviewed and negative for acute findings. Patient reassessed and she states she is no better and still has pain. Discussed that I find no acute cause for her pain but she has indications for chronic pain. I discussed case with [facility] medical Dr. Arnett as Dr. Olivas unavailable. She will pass along report of negative work-up today and to have Dr. Olivas follow-up with patient this week. Discussed consideration for treatment of her chronic pain. I will give a dose of tramadol here and 2 tabs to go. Usual and customary return precautions given prior to discharge. Medical Records Medical records reviewed: Yes I reviewed the patient's medical records. Imaging Data Radiologic Study: Radiologist's impression: ?CT CHEST/ABD/PEL WO CLINICAL HISTORY: ? mid upper back pain,LLQ abd pain at colostomy site. ? TECHNIQUE:? Imaging Protocol: Axial computed tomography images with coronal and sagittal reformatted images were created and reviewed CONTRAST MATERIAL:? Oral: yes/Gastrografin COMPARISON:? CT CT ABDOMEN ? PELVIS WO from 04/02/2022 FINDINGS: CHEST: Tracheobronchial tree: Patent where visualized. Mediastinum and Alice: No dominant adenopathy or fluid collection. Pulmonary parenchyma: No consolidation or dominant measurable mass. Pleura: No effusion or pneumothorax. Lymph nodes: Within normal limits. Aorta: Thoracic portion non-dilated. Atherosclerotic changes. Heart: Mild left ventricle and left atrial dilatation.? Prominent mitral valve calcifications and coronary artery calcifications.? Bones: Stable appearance of severe compression fracture of high-density material Shayne of all vein T12.? No new compression fractures. ABDOMEN: Liver: Normal density. No measurable mass. Gallbladder and biliary tract: No radiodense calculus or dilation. Pancreas: Normal density, no abnormal calcifications or inflammatory process. Spleen: Normal. Kidneys: Normal size, contour and axis. No radiodense stones or obstructive uropathy. Right renal cysts. Adrenal glands: No masses seen. Aorta: Abdominal portion non-dilated. ? Atherosclerotic changes. Lymph nodes: Within normal limits. Soft tissues: Left-sided colostomy.? 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 Stoma appears unchanged.? No significant surrounding soft tissues stranding.? No abscess or fluid collection.? Administered oral contrast is seen within the colostomy bag. PELVIS:? Bladder: Symmetric distention, no gross wall thickening. Bowel: No obstruction or bowel wall thickening. Peritoneal cavity: No ascites, collection or mesenteric inflammatory response. Bones: Unremarkable for age..? Reproductive organs: Status post hysterectomy. IMPRESSION: No acute abnormality in the chest abdomen or pelvis..? Stable appearance of left-sided colostomy with parastomal hernia containing loop colon which is not obstructed. Lab Data Lab results reviewed: Yes I reviewed the patient's lab results. Labs: Laboratory Tests Range/Units 07/28/22 07/28/22 07/28/22 09:18 09:18 09:18 WBC (4.4-10.8) 10^3/uL 8.06 RBC (3.93-5.22) 10^6/uL 3.50 L Hgb (11.2-15.7) g/dL 9.9 L Hct (36.0-46.0) % 31.2 L MCV (80-95) fL 89 MCH (27.0-33.0) pg 28.3 MCHC (32.0-36.0) % 31.7 L RDW (11.7-14.6) % 14.1 Plt Count (130-400) 10^3/uL 228 MPV (8.0-11.0) fL 10.8 Immature Gran % 0.2 Neutrophils % 65.5 Lymphocytes % 21.6 Monocytes % 10.0 Eosinophils % 2.1 Basophils % 0.6 Nucleated RBC % (0.0-0.3) % 0.0 Absolute Neutrophils (1.2-6.7) 10^3/uL 5.27 Absolute Lymphocytes (1.2-3.4) 10^3/uL 1.74 Absolute Monocytes (0.1-0.8) 10^3/uL 0.81 H Absolute Eosinophils (0.0-0.7) 10^3/uL 0.17 Absolute Basophils (0.0-0.2) 10^3/uL 0.05 Sodium (136-145) mmol/L 141 Potassium (3.5-5.1) mmol/L 3.3 L Chloride (98-107) mmol/L 107 Carbon Dioxide (21.0-32.0) mmol/L 25.1 Anion Gap (3-11) mmol/L 8.9 BUN (7-18) mg/dL 16 Creatinine (0.55-1.02) mg/dL 1.0 Est GFR (CKD-EPI 2020) (mL/min/1.73m2) 56.60 Glucose (74-106) mg/dL 97 Calcium (8.5-10.1) mg/dL 8.8 Total Bilirubin (0.2-1.0) mg/dL 0.3 AST (15-37) U/L 22 ALT (14-59) U/L 20 Alkaline Phosphatase (46-116) U/L 64 Total Protein (6.4-8.2) g/dL 7.0 Albumin (3.4-5.0) g/dL 3.3 L Lipase (73-393) U/L 130 Cancelled Urine Color (Yellow) Urine Clarity (Clear) Urine pH (5-8) Ur Specific [place] (1.005-1.025) Urine Protein (Negative) mg/dL Urine Ketones (Negative) mg/dL Urine Blood (Negative) Urine Nitrite (Negative) Urine Bilirubin (Negative) Urine Urobilinogen (Up TO 0.2) EU/dL Ur Leukocyte Esterase (Negative) Urine RBC (0-2) HPF Urine WBC (0-5) HPF Ur Epithelial Cells (Negative) HPF Urine Crystals (Negative) HPF Urine Bacteria (Negative) HPF Urine Casts (Negative) LPF Urine Mucus (Negative) Ur Culture Indicated? Urine Glucose (Negative) mg/dL Range/Units 07/28/22 09:55 WBC (4.4-10.8) 10^3/uL RBC (3.93-5.22) 10^6/uL Hgb (11.2-15.7) g/dL Hct (36.0-46.0) % MCV (80-95) fL MCH (27.0-33.0) pg MCHC (32.0-36.0) % RDW (11.7-14.6) % Plt Count (130-400) 10^3/uL MPV (8.0-11.0) fL Immature Gran % Neutrophils % Lymphocytes % Monocytes % Eosinophils % Basophils % Nucleated RBC % (0.0-0.3) % Absolute Neutrophils (1.2-6.7) 10^3/uL Absolute Lymphocytes (1.2-3.4) 10^3/uL Absolute Monocytes (0.1-0.8) 10^3/uL Absolute Eosinophils (0.0-0.7) 10^3/uL Absolute Basophils (0.0-0.2) 10^3/uL Sodium (136-145) mmol/L Potassium (3.5-5.1) mmol/L Chloride (98-107) mmol/L Carbon Dioxide (21.0-32.0) mmol/L Anion Gap (3-11) mmol/L BUN (7-18) mg/dL Creatinine (0.55-1.02) mg/dL Est GFR (CKD-EPI 2020) (mL/min/1.73m2) Glucose (74-106) mg/dL Calcium (8.5-10.1) mg/dL Total Bilirubin (0.2-1.0) mg/dL AST (15-37) U/L ALT (14-59) U/L Alkaline Phosphatase (46-116) U/L Total Protein (6.4-8.2) g/dL Albumin (3.4-5.0) g/dL Lipase (73-393) U/L Urine Color (Yellow) Yellow Urine Clarity (Clear) Sl Cloudy Urine pH (5-8) 5.5 Ur Specific [place] (1.005-1.025) 1.015 Urine Protein (Negative) mg/dL Negative Urine Ketones (Negative) mg/dL Negative Urine Blood (Negative) Negative Urine Nitrite (Negative) Negative Urine Bilirubin (Negative) Negative Urine Urobilinogen (Up TO 0.2) EU/dL 0.2 Ur Leukocyte Esterase (Negative) Small H Urine RBC (0-2) HPF Negative Urine WBC (0-5) HPF 10-20 H Ur Epithelial Cells (Negative) HPF Moderate Urine Crystals (Negative) HPF Negative Urine Bacteria (Negative) HPF Rare Urine Casts (Negative) LPF Negative Urine Mucus (Negative) Negative Ur Culture Indicated? No/Sq. Contamination Urine Glucose (Negative) mg/dL Negative HPI General Mode of arrival: EMS. Date/Time Provider Initiated Documentation: 07/28/22 08:58. Limitations to Documentation: physical limitation. Information obtained by: patient. HPI Narrative: Patient is an 82yo F w/ a h/o multiple medical problems including past medical history of cva, polymyalgia rheumatica, former smoker, anxiety, depression, sleep apnea, appendectomy, hysterectomy, status post sigmoidectomy with end colostomy for perforation during colonoscopy in 2019, vertebroplasty of T12 burst fracture?and chronic pain who had been on scheduled oxycodone but stopped 2 weeks ago presents to the ED w/ a c/o abdominal and back pain for the past 10 days. at bedside states that patient's PCP was planning to stop her oxycodone as they were concerned about the combination of her Ambien and oxycodone on her mental status. states that the last dose of the oxycodone was 2 weeks ago. He states patient last took Tylenol last night. He states she has been eating at her baseline but has not yet eaten breakfast this morning. Patient admits to a watery bowel movement in her ostomy bag this morning which was more watery than her usual bowel movement. Patient admits to upper mid back pain. and patient states that she has this at pain from time to time. Patient denies any fever, chest pain, difficulty breathing, nausea, vomiting, or dysuria. Patient also admits to decreased urine output for several months and states she has spoken to her PCP about this but they have not done anything . Patient states she drinks 4-5 bottles of water daily. Related Data Home Medications Medication Instructions Recorded Confirmed multivitamin (One Daily 1 tab PO BID 08/06/18 07/30/22 Multivitamin tablet) cyanocobalamin (vitamin B-12) 500 500 mcg PO DAILY 08/22/19 07/30/22 mcg tablet magnesium chloride 64 mg 64 mg PO .1 x2 daily 06/05/21 07/30/22 (magnesium chloride) tablet polyethylene glycol 3350 17 17 g PO DAILY PRN 06/05/21 07/30/22 gram/dose oral powder (Miralax) pyridoxine (vitamin B6) 100 mg 100 mg PO DAILY 06/05/21 07/30/22 tablet levothyroxine 100 mcg tablet 100 mcg PO DAILY #90 tabs 02/13/22 07/30/22 lisinopril 10 mg tablet 10 mg PO DAILY #90 tabs 02/13/22 07/30/22 ferrous gluconate 324 mg (38 mg 324 mg PO TID iron deficient 03/07/22 07/30/22 iron) tablet anemia #90 tabs zolpidem 12.5 mg tablet,extended 12.5 mg PO QHS #28 tabs 07/01/22 07/30/22 release,multiphase (Ambien CR) duloxetine 20 mg capsule,delayed 40 mg PO DAILY #60 caps 07/30/22 07/30/22 release methylprednisolone 4 mg tablet 4 mg PO DAILY 07/30/22 07/30/22 oxycodone 5 mg tablet 5 mg PO DAILY PRN severe pain 07/30/22 07/30/22 (scale score 7-10) Previous Rx's Medication Instructions Recorded levothyroxine 100 mcg tablet 100 mcg PO DAILY #90 tabs 02/13/22 lisinopril 10 mg tablet 10 mg PO DAILY #90 tabs 02/13/22 ferrous gluconate 324 mg (38 mg 324 mg PO TID iron deficient 03/07/22 iron) tablet anemia #90 tabs zolpidem 12.5 mg tablet,extended 12.5 mg PO QHS #28 tabs 07/01/22 release,multiphase (Ambien CR) duloxetine 20 mg capsule,delayed 40 mg PO DAILY #60 caps 07/30/22 release Allergies Allergy/AdvReac Type Severity Reaction Status Date / Time banana Allergy Intermediate Other (See Verified 07/30/22 11:27 Comment) cucumber Allergy Intermediate Other (See Verified 07/30/22 11:27 Comment) Iodinated Contrast Media Allergy Intermediate Anaphylaxis Unverified 07/30/22 11:27 chloramphenicol AdvReac Severe KIDNEY Verified 07/30/22 11:27 FAILURE tetracycline AdvReac Severe KIDNEY Verified 07/30/22 11:27 FAILURE melon AdvReac Intermediate Cantaloupe-Abd Verified 07/30/22 11:27 pain, diarrhea ADHESIVE TAPE Allergy Intermediate takes skin Uncoded 07/30/22 11:27 off SUTURE MATERIAL Allergy Intermediate Purluent Uncoded 07/30/22 11:27 Drainage General Stated Complaint: Abd Prob JOSHUA: 3 Review of Systems All systems reviewed & are unremarkable except as noted in HPI and below Constitutional Constitutional: Reports as per HPI, Denies chills and Denies fever(s) Eyes Eyes: Denies blurry vision ENT Ears, Nose, Mouth, and Throat: Denies dizziness, Denies sore throat and Denies throat swelling Cardiovascular Cardiovascular: Denies chest pain and Denies dyspnea Respiratory Respiratory: Denies cough and Denies dyspnea Gastrointestinal Gastrointestinal: Reports abdominal pain, Denies diarrhea and Denies vomiting Genitourinary Genitourinary: Denies hematuria and Denies dysuria Musculoskeletal Musculoskeletal: Reports back pain and Denies numbness Integumentary/Breasts Skin/Breast: Denies lesions and Denies rash Neurologic Neurologic: Denies dizziness, Denies localized weakness and Denies numbness Allergic/Immunologic Allergic/Immunologic: Denies throat swelling PFSH All Active Problems (Updated 07/28/22 @ 13:05 by Ammy Bailey DO) Benign paroxysmal positional vertigo (Acute) after closed head injury Depressive disorder (Chronic) Hypothyroidism (Acute 04/05/12) Memory impairment (Chronic 06/18/94) H/O closed head injury w/ result in memory difficulties, word findig problems Non-alcoholic fatty liver disease (Acute) persistent elevated AST echo. : hepatic steatosis Obstructive sleep apnea syndrome (Acute) after closed head injury pt not using CPAP machine Osteoporosis (Acute) Bone density scan : 11[place]2021[place] [place] PMR (polymyalgia rheumatica) (Chronic 01/15/16) DX 2016 : /curtis resp. to Prednisone Primary osteoarthritis of left knee (Acute 07/30/15) Adrenal insufficiency (Acute) Iatrogenic secondary to chronic steroid use, on low-dose chronic steroid Urinary retention with incomplete bladder emptying (Acute) Constipation by delayed colonic transit (Acute) Anemia of chronic disease (Acute) Rectovaginal fistula (Acute) Smoker (Acute) Medical cannabis use (Acute) Gout (Chronic) Urethral caruncle (Acute) dx by [facility] Cerebral amyloid angiopathy (Acute) : possible diagnosis re:brain MRI/ followed by Neuro [facility] [place] Dr.Anthony Avalos GERD (gastroesophageal reflux disease) (Chronic) Peristomal hernia (Acute) Essential hypertension (Acute) Chronic pain syndrome (Chronic) Due to chronic back pain, 08/2021-drug contract at [facility], V PMS review,11/2021-urine drug screen Insomnia (Acute) 08/2021 , chronic zolpidem use 12.5 mg. Patient aware that there is higher than recommended dose. 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, partial field defect, presumed secondary to recent cerebral hemorrhage Vaginal discharge (Acute) Atrophic vaginitis (Acute) Abdominal pain (Acute) Anterolisthesis of lumbosacral spine (Acute) Abdominal pain (Acute) Chronic back pain (Acute) Medical History (Updated 07/28/22 @ 13:05 by Ammy Bailey DO) Brain bleed 05/2021 tx at [facility], intra parenchymal left-sided hemorrhage-treated through [facility] Colon polyp (06/28/18) adenoma colon pollyps-1997; none on subsequent colonoscopies; most recent c-scope in 2005 was normal 2017-adenoma Compression fracture of body of thoracic vertebra Excessive sweating (06/02/16) daytime sweating if >74 degrees/ fatigue normal cbc, spep,echocardiogram,sed.rate,cmp Insomnia Palliative care patient Perforation of colon as colonoscopy complication Raynaud's disease T12 burst fracture Tuberculosis Surgical History (Updated 03/09/22 @ 15:55 by Keyana Olivas MD) Colonoscopy - [facility] ADENOMA COLON POLYPS 1997, NONE ON MULTIPLE SUBSEQUENT COLONOSCOPIES, MOST RECENT C-SCOPE 2005 WAS NORMAL, 2018 - cecal polyp, diverticulosis EGD - [facility] (~2003) MILD EROSIVE ESOPHAGITIS, NO PINON'S ON BIOPSY H/O dilation and curettage H/O partial resection of colon Sigmoid colon resection 06/28/18 Laparoscopic, Ovarian Cystectomy B/L S/P appendectomy S/P BSO (bilateral salpingo-oophorectomy) S/P hysterectomy S/P kyphoplasty S/P rotator cuff repair S/P tonsillectomy Family History Mother , in her 80s from pneumonia Heart disease Pneumonia Father , from complications of prostate surgery in his 80s Stroke Personal history of malignant neoplasm Heart disease Brother , aged 68 Alcohol abuse Cirrhosis with alcoholism Grandfather Essential hypertension Heart disease Grandmother Personal history of malignant neoplasm Stroke Grandmother Personal history of malignant neoplasm Son , from his drinking/SA; her oldest child Alcohol abuse Social History Smoking/Tobacco Use Status: Former Tobacco Use Smoking risk assessment performed?: Yes Alcohol Intake: current Alcohol Intake frequency: holidays/special occasions only Alcohol type: hard liquor Drug use: Never Substance use type: does not use Household members: other 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 History History 6 Para 3 Hx # Term Pregnancies 3 Multiple births Hx # Pregnancies Ectopic pregnancies AB induced Hx Number of Living Children 3 AB spontaneous Exam Const General: cooperative, healthy appearing and no acute distress [facility] Head: normal to inspection Face and sinus: normal facial exam Eyes General: appearance normal, both eyes and all related structures Pupils: PERRL EOM: EOM intact bilaterally Neck Neck: normal visual inspection and No submandibular swelling Lymphatic: no lymphadenopathy noted Chest Chest: normal inspection of the chest and no tenderness Resp Effort & Inspection: normal respiratory effort and able to speak in complete sentences Auscultation: clear to auscultation bilaterally Cardio Rate: regular rate Rhythm: regular rhythm GI Inspection: obesity and other (colostomy left lower quardrant, no surrounding cellulitis) Palpation: soft, not firm, not rigid and tender in the LLQ Auscultation: hypoactive bowel sounds Back/Spine/Pelvis Back: no CVA tenderness Thoracic/Lumbar Spine: thoracic and lumbar spine normal to inspection, No thoracic spinal tenderness and No lumbar spinal tenderness Skin General skin exam: no rashes or lesions noted Neuro General: patient alert, patient awake and patient oriented x3 Cognition: normal cognition Speech: speech normal Motor: muscle tone normal throughout and strength 5/5 throughout Sensory Exam: no sensory deficits noted Extrem General: normal to inspection, full ROM, capillary refill normal, no calf tenderness bilaterally and no edema Other: B/L DP pulses intact. Psych Appearance: grossly normal Mental Status: mental status grossly normal Speech and Movement: speech and movement normal Affect: normal affect
[2022-07-28 08:54] VITALS: BP 174/64; PULSE 67; RESP 18; TEMP 36.3; O2SAT 96
[2022-07-28 09:26] LABS: Abs Immature Grans 0.02 10^3/uL (0.0-0.06); Absolute Basophil Count 0.05 10^3/uL (0.0-0.2); Absolute Eosinophil Count 0.17 10^3/uL (0.0-0.7); Absolute Lymphocyte Count 1.74 10^3/uL (1.2-3.4); Absolute Monocyte Count 0.81 10^3/uL (0.1-0.8); Absolute Neutrophil Count 5.27 10^3/uL (1.2-6.7); Basophils % 0.6; Eosinophils % 2.1; HCT 31.2 % (36.0-46.0); HGB 9.9 g/dL (11.2-15.7); Immature Grans % 0.2; Lymphocytes % 21.6; MCH 28.3 pg (27.0-33.0); MCHC 31.7 % (32.0-36.0); MCV 89 fL (80-95); MPV 10.8 fL (8.0-11.0); Neutrophils % 65.5; Platelet Count 228 10^3/uL (130-400); RDW 14.1 % (11.7-14.6); RDW-SD 45.9 fL; WBC 8.06 10^3/uL (4.4-10.8)
--- NOTE | 2022-07-28 09:30 | DI.CT_ITS ---
Exam(s) CT CHEST/ABD/PEL WO EXAM: CT CHEST/ABD/PEL WO CLINICAL HISTORY: mid upper back pain,LLQ abd pain at colostomy site. TECHNIQUE: Imaging Protocol: Axial computed tomography images with coronal and sagittal reformatted images were created and reviewed CONTRAST MATERIAL: Oral: yes/Gastrografin COMPARISON: CT CT ABDOMEN PELVIS WO from 04/02/2022 FINDINGS: CHEST: Tracheobronchial tree: Patent where visualized. Mediastinum and Alice: No dominant adenopathy or fluid collection. Pulmonary parenchyma: No consolidation or dominant measurable mass. Pleura: No effusion or pneumothorax. Lymph nodes: Within normal limits. Aorta: Thoracic portion non-dilated. Atherosclerotic changes. Heart: Mild left ventricle and left atrial dilatation. Prominent mitral valve calcifications and cor onary artery calcifications. Bones: Stable appearance of severe compression fracture of high-density material Shayne of all vein T1 2. No new compression fractures. ABDOMEN: Liver: Normal density. No measurable mass. Gallbladder and biliary tract: No radiodense calculus or dilation. Pancreas: Normal density, no abnormal calcifications or inflammatory process. Spleen: Normal. Kidneys: Normal size, contour and axis. No radiodense stones or obstructive uropathy. Right renal cys ts. Adrenal glands: No masses seen. Aorta: Abdominal portion non-dilated. Atherosclerotic changes. Lymph nodes: Within normal limits. Soft tissues: Left-sided colostomy. Stable appearance of parastomal hernia with nonobstructed loop o f colon. Stoma appears unchanged. No significant surrounding soft tissues stranding. No abscess or fluid collection. Administered oral contrast is seen within the colostomy bag. PELVIS: Bladder: Symmetric distention, no gross wall thickening. Bowel: No obstruction or bowel wall thickening. Peritoneal cavity: No ascites, collection or mesenteric inflammatory response. Bones: Unremarkable for age.. Reproductive organs: Status post hysterectomy. IMPRESSION: No acute abnormality in the chest abdomen or pelvis.. Stable appearance of left-sided colostomy with parastomal hernia containing loop colon which is not o bstructed. Findings called to Ammy Bailey emergency department provider. RADIATION DOSE DELIVERED: 1,258.46mGy.cm Total DLP DATA REPOSITORY: All CT scans at this facility are submitted to the National Radiology Data Registry (NRDR) Dose Index Registry (DIR) with the [employer] (ACR). RADIATION OPTIMIZATION: All CT scans at this facility use at least one of these dose optimization te chniques: automated exposure control; mA and/or kV adjustment per patient size (includes targeted exa ms where dose is matched to clinical indication); or iterative reconstruction.
[2022-07-28 09:46] LABS: ALT 20 U/L (14-59); AST 22 U/L (15-37); Albumin 3.3 g/dL (3.4-5.0); Alkaline Phosphatase 64 U/L (46-116); Anion Gap 8.9 mmol/L (3-11); BUN 16 mg/dL (7-18); Bilirubin, Total 0.3 mg/dL (0.2-1.0); CO2 25.1 mmol/L (21.0-32.0); Calcium 8.8 mg/dL (8.5-10.1); Chloride 107 mmol/L (98-107); Glucose 97 mg/dL (74-106); Lipase 130 U/L (73-393); Potassium 3.3 mmol/L (3.5-5.1); Sodium 141 mmol/L (136-145)
[2022-07-28] MEDS: Ketorolac 30 MG/ML VIAL IVP (09:57)
[2022-07-28] MEDS: ACETAMINOPHEN 1,000 MG/100 ML BTL 400 MG IVPB (09:57)
[2022-07-28] MEDS: Omnipaque 350 MG/ML 50 ML BTL IJ (09:57)
[2022-07-28] MEDS: Normal Saline 500 ML IV (09:58)
[2022-07-28 10:03] LABS: Bilirubin Negative (Negative); Blood Negative (Negative); Clarity Sl Cloudy (Clear); Glucose Negative (Negative); Ketones Negative (Negative); Leukocyte Esterase Small (Negative); Nitrite Negative (Negative); Specific Gravity 1.015 (1.005-1.025); Urobilinogen 0.2 EU/dL (Up TO 0.2); pH 5.5 (5-8)
[2022-07-28] MEDS: Breeza Beverage 473 ML BTL PO (10:05)
[2022-07-28 10:09] LABS: Bacteria Rare HPF (Negative); C & S Indicated? No/Sq. Contamination; Casts Negative LPF (Negative); Crystals Negative HPF (Negative); Epithelial Cells Moderate HPF (Negative); Mucus Negative (Negative); RBC Negative HPF (0-2)
[2022-07-28] MEDS: Gastrografin 120 ML BTL PO (10:10)
[2022-07-28 12:17] VITALS: BP 171/75; PULSE 68; RESP 18; O2SAT 98
[2022-07-28] MEDS: traMADol 50 MG TAB PO (13:26)
[2022-07-28] MEDS: Potassium Chloride 20 MEQ TABCR 40 MEQ PO (13:26)
== END 2022-07-28 13:37 | disposition home or self-care (01) ==
PROVIDERS: Emergency Provider Physician Assistant; PCP Family Medicine
DX: R10.9 Unspecified abdominal pain (principal); M54.9 Dorsalgia, unspecified; G89.29 Other chronic pain; I10 Essential (primary) hypertension; Z86.73 Personal history of transient ischemic attack (TIA), and cerebral infarction without residual deficits; Z90.49 Acquired absence of other specified parts of digestive tract; Z90.710 Acquired absence of both cervix and uterus
CPT/HCPCS: 71250; 80053; 83690; 96361; 96374; 96375; 99284; 74176; 81003; 81015; 85025; J0131; J1885; Q9967

== ENCOUNTER 2022-08-28 15:52 | Outpatient (REF) | payer MEDICARE, SELFPAY ==
[2022-08-28 13:56] LABS: Abs Immature Grans 0.04 10^3/uL (0.0-0.06); Absolute Basophil Count 0.06 10^3/uL (0.0-0.2); Absolute Eosinophil Count 0.11 10^3/uL (0.0-0.7); Absolute Lymphocyte Count 2.26 10^3/uL (1.2-3.4); Absolute Monocyte Count 0.71 10^3/uL (0.1-0.8); Absolute Neutrophil Count 6.39 10^3/uL (1.2-6.7); Basophils % 0.6; Eosinophils % 1.1; HCT 36.2 % (36.0-46.0); HGB 11.3 g/dL (11.2-15.7); Immature Grans % 0.4; Lymphocytes % 23.6; MCH 28.3 pg (27.0-33.0); MCHC 31.2 % (32.0-36.0); MCV 91 fL (80-95); Monocytes % 7.4; Neutrophils % 66.9; RBC 3.99 10^6/uL (3.93-5.22); RDW 14.1 % (11.7-14.6); RDW-SD 46.7 fL; WBC 9.57 10^3/uL (4.4-10.8)
[2022-08-28 13:58] LABS: ESR 46 mm/hr (0-30)
[2022-08-28 14:01] LABS: C-Reactive Protein 2.19 mg/dL (0.0-0.3)
== END 2022-08-28 15:53 | disposition home or self-care (01) ==
LOC: LBN 15:52
PROVIDERS: PCP Family Medicine; Visit Provider Internal Medicine
DX: M35.3 Polymyalgia rheumatica (principal)
CPT/HCPCS: 85652; 85025; 86140

== ENCOUNTER 2022-08-29 15:34 | Outpatient (REF) | payer MEDICARE, SELFPAY ==
[2022-08-29 16:10] LABS: Bilirubin Negative (Negative); Blood Negative (Negative); Clarity Clear (Clear); Glucose Negative (Negative); Ketones Negative (Negative); Leukocyte Esterase Trace (Negative); Nitrite Negative (Negative); Specific Gravity 1.015 (1.005-1.025); Urobilinogen 0.2 EU/dL (Up TO 0.2); pH 6.5 (5-8)
[2022-08-29 16:32] LABS: Bacteria Few HPF (Negative); C & S Indicated? C&S Done As Ordered; Casts Negative LPF (Negative); Crystals Negative HPF (Negative); Epithelial Cells Few HPF (Negative); Mucus Negative (Negative); RBC 0-2 HPF (0-2)
== END 2022-08-29 15:35 | disposition home or self-care (01) ==
LOC: LBN 15:34
PROVIDERS: PCP Family Medicine; Visit Provider Internal Medicine
DX: N39.0 Urinary tract infection, site not specified (principal)
CPT/HCPCS: 81003; 81015; 87086

== ENCOUNTER 2022-09-29 01:24 | Outpatient (CLI) | payer MEDICARE, SELFPAY ==
--- NOTE | 2022-09-29 07:30 | DI.US_ITS ---
Exam(s) US ABDOMEN LIMITED EXAM: US ABDOMEN LIMITED CLINICAL HISTORY: RUQ abdominal pain,r10.9 TECHNIQUE: Ultrasound abdomen performed using standard protocol. COMPARISON: No exams were available for comparison FINDINGS: PANCREAS: Normal where visualized. LIVER: Normal Hepatopedal flow in the Portal Vein. The liver measures in 14.7 cm length. GALLBLADDER:Cholelithiasis. No evidence of wall thickening. No pericholecystic fluid identified. BILIARY SYSTEM: Common bile duct measures < 7 mm. No intrahepatic biliary ductal dilation. FRANK'S SIGN: Negative. RIGHT KIDNEY: Kidneys were evaluated on the renal ultrasound examination performed the same day. ASCITES: None seen. IMPRESSION: Cholelithiasis. No sonographic evidence to suggest acute cholecystitis. DATA REPOSITORY:
--- NOTE | 2022-09-29 07:30 | DI.US_ITS ---
Exam(s) US RENAL EXAM: US RENAL CLINICAL HISTORY: Urinary retention,r10.9. TECHNIQUE: Friedman scale, color and spectral Doppler were used. COMPARISON: CT CT CHEST/ABD/PEL WO from 07/28/2022 FINDINGS: Renal size in cm: Right: 9.3. Left: 10.8. Echogenicity: Normal. Hydronephrosis: No. Cyst or mass: There again seen 2 right simple renal cysts. No follow-up is recommended. Nephrolithiasis: No. Other findings: None. Bladder:Normal. Ureteral jets: Right: Not visualized on the current examination. Left: Not visualized on the current examination. Prevoid vol:107 cc Renal color flow: Symmetric and within normal limits. IMPRESSION: No acute abnormality. DATA REPOSITORY:
== END 2022-09-29 01:44 ==
LOC: DI 01:24
PROVIDERS: PCP Family Medicine; Visit Provider Family Medicine
DX: R10.11 Right upper quadrant pain (principal); R33.9 Retention of urine, unspecified
CPT/HCPCS: 76770; 76705

== ENCOUNTER 2022-10-01 01:17 | Outpatient (CLI) | payer MEDICARE, SELFPAY ==
--- NOTE | 2022-10-01 07:15 | DI.MRI_ITS ---
Exam(s) MR LUMBAR SPINE WO EXAM: MR LUMBAR SPINE WO CLINICAL HISTORY: low back pain, urinary retention,anterolisthesis of ls spine, m43.17. TECHNIQUE: Multiplanar multisequence MRI of the Lumbar spine was performed. COMPARISON: MR MR lumbar spine wo from 09/21/[address] ABDOMEN PELVIS WO from 04/02/[address] CHEST/ABD/PEL WO from 07/28/2022 FINDINGS: Bones: The last intervertebral disc space is designated the L5/S1 level for the numbering purpose of this examination. There is a stable marked compression fracture deformity of T12. There is unchang ed extension into the central spinal canal. Vertebral body heights are otherwise well maintained in the lumbar spine. There is exaggeration of the kyphosis centered at T12. The signal characteristics are unremarkable. Cord: The conus tip ends at the T12 level. It is of normal size and signal intensity. T12-L1: No disc herniations or bulges are present. No central spinal canal or neural foraminal stenos is. L1-2: No disc herniations or bulges are present. No central spinal canal or neural foraminal stenosis . L2-3: No disc herniations or bulges are present. No central spinal canal or neural foraminal stenosis . L3-4: No disc herniations or bulges are present. No central spinal canal or neural foraminal stenosis . L4-5: There are degenerative changes of the facets. There are mild hypertrophic changes of the ligam entum flavum. No focal disc herniation is present. No central spinal canal or neural foraminal sten osis. L5-S1: There are degenerative changes of the facets. No focal disc herniation is seen. No central s tru canal or neural foraminal stenosis. Soft tissues: The visualized SI joints and sacrum are well maintained. There is mild fatty atrophy of the paraspinal muscles. Visualized abdominal organs: Note is made of bilateral simple renal cysts. No follow-up is recommend ed. IMPRESSION: 1. No evidence of significant spinal stenosis or neuroforaminal narrowing. 2. Stable T12 compression fracture deformity. 3. Degenerative changes in the lower lumbar spine as described above. DATA REPOSITORY:
== END 2022-10-01 01:37 ==
LOC: DI 01:17
PROVIDERS: PCP Family Medicine; Visit Provider Family Medicine
DX: M43.17 Spondylolisthesis, lumbosacral region (principal); M54.59 Other low back pain; M47.817 Spondylosis without myelopathy or radiculopathy, lumbosacral region
CPT/HCPCS: 72148

== ENCOUNTER 2022-10-24 03:05 | Outpatient (CLI) | payer MEDICARE, SELFPAY ==
[2022-10-24 14:44] LABS: Bilirubin Negative (Negative); Blood Negative (Negative); Clarity Cloudy (Clear); Glucose Negative (Negative); Ketones Negative (Negative); Leukocyte Esterase Small (Negative); Nitrite Negative (Negative); Specific Gravity 1.025 (1.005-1.025); Urobilinogen 0.2 mg/dL (Up to 0.2); pH 6.5 (5-8)
[2022-10-24 14:59] LABS: RBC 0-2 HPF (0-2)
[2022-10-24 15:00] LABS: Bacteria Moderate HPF (Negative); C & S Indicated? No/Sq. Contamination; Casts Negative LPF (Negative); Crystals Negative HPF (Negative); Epithelial Cells Many HPF (Negative); Mucus Trace (Negative)
[2022-10-24 15:46] LABS: ALT 27 U/L (14-59); AST 14 U/L (15-37); Albumin 3.3 g/dL (3.4-5.0); Alkaline Phosphatase 92 U/L (46-116); Anion Gap 8.1 mmol/L (3-11); BUN 16 mg/dL (7-18); Bilirubin, Total 0.3 mg/dL (0.2-1.0); CO2 30.9 mmol/L (21.0-32.0); Calcium 9.2 mg/dL (8.5-10.1); Chloride 105 mmol/L (98-107); Glucose 112 mg/dL (74-106); Potassium 3.3 mmol/L (3.5-5.1); Sodium 144 mmol/L (136-145); Total Protein 7.5 g/dL (6.4-8.2)
== END 2022-10-24 03:06 | disposition home or self-care (01) ==
LOC: LBO 03:06
PROVIDERS: PCP Family Medicine; Visit Provider Family Medicine
DX: Z00.00 Encounter for general adult medical examination without abnormal findings (principal); R10.9 Unspecified abdominal pain; R30.0 Dysuria
CPT/HCPCS: 36415; 80053; 81003; 81015

== ENCOUNTER 2023-04-11 04:10 | Emergency (ER) | payer MEDICARE, SELFPAY ==
[2023-04-11] VITALS (16 sets, daily range): BP systolic 140–201; BP diastolic 58–130; PULSE 72–91; RESP 13–28; TEMP 36.9; O2SAT 94–97
--- NOTE | 2023-04-11 04:00 | RT.EKG_ITS ---
APPROVED REPORT Exam: Resting ECG Reason for Exam: fall, ams Patient Location: E HR:87 bpm ECG Measurements Heart Rate 87 AXIS AR 199 P 26 QRSd 96 QRS -26 QT 406 T 255 QTc 489 Conclusion Sinus rhythm...normal P axis, V-rate 60- 99 Probable left atrial enlargement...P >50mS, <-0.10mV V1 Abnrm T, probable ischemia, anterolateral lds...T <-0.50mV, I aVL V2-V6 Physician: diffuse t wave inversions, but no sig. ST elevation or depression. Unchanged from prior EK G's in June 2021
--- NOTE | 2023-04-11 04:15 | DI.CT_ITS ---
Exam(s) CT HEAD CERVICAL SPINE WO EXAM: CT HEAD CERVICAL SPINE WO CLINICAL HISTORY: fall, confusion. TECHNIQUE: Imaging Protocol: Axial computed tomography images with coronal and sagittal reformatted images were created and reviewed COMPARISON: CT CT HEAD CERVICAL SPINE WO from 09/11/[address] HEAD WO from 06/20/[address] CHEST/ABD/PEL WO from 04/11/2023 FINDINGS: The examination is limited due to patient motion artifact. CT Head: Ventricles and Extra axial spaces: Normal in size and morphology for the patient's age. Hemorrhage: None. Cerebral parenchyma: There are areas of decreased attenuation in the white matter consistent with sma ll vessel ischemic disease. There is an area of encephalomalacia involving the left occipital lobe. Midline shift: None. Brainstem/Cerebellum: Normal. Calvarium: Normal. Visualized Paranasal sinuses/Mastoids: Clear. Soft Tissues: Unremarkable. CT Cervical Spine: Bones: No acute fracture or subluxation. Degenerative changes are seen in the cervical spine. There is reversal of the normal cervical lordosis. This may reflect muscle spasm or patient positioning. Soft Tissues: Unremarkable. Lung Apices: Clear. IMPRESSION: 1. No acute intracranial process. 2. No acute fracture or subluxation in the cervical spine. RADIATION DOSE DELIVERED: 1,527.29mGy.cm Total DLP DATA REPOSITORY: All CT scans at this facility are submitted to the National Radiology Data Registry (NRDR) Dose Index Registry (DIR) with the [employer] (A[employer]). RADIATION OPTIMIZATION: All CT scans at this facility use at least one of these dose optimization te chniques: automated exposure control; mA and/or kV adjustment per patient size (includes targeted exa ms where dose is matched to clinical indication); or iterative reconstruction.
--- NOTE | 2023-04-11 04:15 | DI.CT_ITS ---
Exam(s) CT CHEST/ABD/PEL WO EXAM: CT CHEST/ABD/PEL WO CLINICAL HISTORY: fall, confusion, abdominal pain TECHNIQUE: Imaging Protocol: Axial computed tomography images with coronal and sagittal reformatted images were created and reviewed COMPARISON: CT CT CHEST/ABD/PEL WO from 07/28/2022 FINDINGS: The examination is limited due to patient motion artifact. CHEST: Tracheobronchial tree: Patent where visualized. Pulmonary parenchyma: No consolidation or dominant measurable mass. No architectural distortion. Mediastinum and Alice: No dominant adenopathy or fluid collection. The esophagus is unremarkable. Thyroid gland: Unremarkable. Pleura: No effusion or pneumothorax. Heart: The heart is not dilated. Coronary artery calcification is present. No pericardial effusion. Aorta: Thoracic aorta non-dilated. Atherosclerosis. Lymph nodes: Within normal limits. Bones:Within normal limits for the patient's age. Soft tissues: Unremarkable. ABDOMEN: Liver: The liver has a lobulated contour suggesting hepatic cirrhosis. No measurable mass. Gallbladder and Biliary Tract: No radiodense calculus or dilation. Pancreas: Normal density, no abnormal calcifications or inflammatory process. Spleen: Normal. Adrenals: No masses seen. Kidneys: Normal size, contour and axis. No radiodense stones or obstructive uropathy. Renal cysts are again seen. No follow-up is recommended. Abdominal Aorta: Abdominal portion non-dilated. Atherosclerosis. Bowel: There is again seen a a left lower quadrant colostomy. There is a parastomal hernia containin g an unremarkable loop of transverse colon. There is no evidence of bowel wall thickening or bowel o bstruction. No evidence of appendicitis. Peritoneal Cavity: No ascites, collection or mesenteric inflammatory response. No free air. Lymph Nodes: Within normal limits. Bones: Within normal limits for the patient's age. There is a chronic compression fracture deformity of T12. Evidence of prior vertebroplasty. Soft Tissues: Unremarkable. PELVIS: Bladder: Several of the bladder diverticula are noted. Reproductive Organs: Status post hysterectomy. Lymph Nodes: Within normal limits. Bones: Within normal limits for the patient's age. IMPRESSION: No acute finding in the chest, abdomen or pelvis. RADIATION DOSE DELIVERED: 1,152.58mGy.cm Total DLP 1,152.58mGy.cm Total DLP DATA REPOSITORY: All CT scans at this facility are submitted to the National Radiology Data Registry (NRDR) Dose Index Registry (DIR) with the [employer] (ACR). RADIATION OPTIMIZATION: All CT scans at this facility use at least one of these dose optimization te chniques: automated exposure control; mA and/or kV adjustment per patient size (includes targeted exa ms where dose is matched to clinical indication); or iterative reconstruction.
--- NOTE | 2023-04-11 04:22 | W.ED.GENAD ---
Discharge Plan Discharge Details Chief Complaint: Fall/Non TraumaCriteria Primary Care Provider: Keyana Olivas ED Provider: Huang Kern Home Meds and New Rx's Prescriptions: No Action pyridoxine (vitamin B6) 100 mg tablet 100 mg PO DAILY magnesium chloride 64 mg magnesium tablet 64 mg PO .1 x2 daily polyethylene glycol 3350 [Miralax] 17 gram/dose powder 17 g PO DAILY PRN multivitamin [One Daily Multivitamin] tablet 1 tab PO BID cyanocobalamin (vitamin B-12) 500 mcg tablet 500 mcg PO DAILY duloxetine 40 mg capsule,delayed release(DR/EC) 40 mg PO DAILY Qty: 90 1RF Patient Comments: not taking methylprednisolone 4 mg tablet 2 mg PO DAILY Qty: 15 0RF levothyroxine 100 mcg tablet 100 mcg PO DAILY Qty: 90 3RF Patient Comments: not taking the way /i should ferrous gluconate 324 mg (38 mg iron) tablet 324 mg PO TID Qty: 90 6RF zolpidem [Ambien CR] 12.5 mg tablet,ext release multiphase 12.5 mg PO QHS Qty: 28 3RF Hold Instructions: no longer effective oxycodone 5 mg tablet 5 mg PO DAILY MDD 5mg PRN (Reason: severe pain (scale score 7-10)) Qty: 35 0RF Medical Decision Making This is a pleasant 82-year-old female with a past medical history of peripheral vertigo, obstructive sleep apnea, hypothyroidism, partial colectomy and ostomy secondary to colonoscopy complication, who presents today via EMS after fall, confusion, and per inability to care for her anymore at home. It appears per and EMS that over the last few weeks the patient has had increased confusion, and falls. They were recently at [facility] and had an MRI done which was read as negative for acute process. However she has had continued persistent falls and confusion and the feels that he is no longer able to safely care for her. Patient has no complaints. She fell this evening in the bathroom, she was not on the floor for long as the heard the fall. She denies any headache or chest pain. She does admit to mild abdominal pain. She has no other complaints at this time. She offers no other additional historical components. She is not on any blood thinners. Exam demonstrates a well-appearing female. She currently believes it is 1922 and that Evonne Claudio is president. She admits to mild abdominal achiness with mild tenderness on exam. No signs of trauma otherwise. Ostomy site appears intact. Differential is broad. We will get a CT scan to rule out intracranial bleed after fall. We will get a CT scan of the chest and abdomen to evaluate for her pain. We will straight cath for assessment for infection. We will monitor closely and reassess. EKG does show diffuse T wave abnormalities but this is unchanged compared to prior EKGs 6:53 AM Laboratory work-up is returned relatively benign. Urinalysis negative, COVID flu and RSV negative, hemoglobin at baseline. Troponin normal. TSH elevated but free T4 is normal. Alcohol level negative. CT scan of the chest and abdomen and pelvis negative for acute process per virtual radiology. Still pending CT scan of the head results. Patient remained stable. I did contact the Jason and discussed this with him. He feels quite exhausted at this current state of things, and is requesting additional assistance. He is afraid that if they try to get the patient to a facility she would fight that tooth and nail as her dementia is certainly not that severe that she would be ignorant to the change. He is requesting additional help at home. We will hold onto the patient for the meantime in the ED and have case management evaluate the patient and contact the patient's for discussion of potential outpatient resources. Patient will be signed out to my colleague Dr. Colleen Leyva for follow-up on CT head and discussion with case management. FINDINGS: Lungs: Unremarkable. No consolidation. No masses. Pleural spaces: Unremarkable. No pneumothorax. No pleural effusion. Heart: Unremarkable. No cardiomegaly. No pericardial effusion. Lymph nodes: Unremarkable. No enlarged lymph nodes. Vasculature: Unremarkable. No aortic aneurysm. 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 Soft tissues: Unremarkable. IMPRESSION: No acute findings. No CT evidence for acute traumatic injury to the chest FINDINGS: Liver: Cirrhosis. Gallbladder and bile ducts: Normal. No calcified stones. No ductal dilation. Pancreas: Normal. No ductal dilation. Spleen: Normal. No splenomegaly. Adrenal glands: Normal. No mass. Kidneys and ureters: Right renal cyst No hydronephrosis. Stomach and bowel: No obstruction. No mucosal thickening. Appendix: No evidence of appendicitis. Intraperitoneal space: Unremarkable. No free air. No significant fluid collection. Vasculature: Unremarkable. No abdominal aortic aneurysm. Lymph nodes: Unremarkable. No enlarged lymph nodes. Urinary bladder: Unremarkable as visualized. Reproductive: Prior hysterectomy. Bones/joints: Unremarkable. No acute fracture. Soft tissues: Left-sided ostomy IMPRESSION: No acute findings. No solid organ injury observed Nonurgent findings as noted Thank you for allowing us to participate in the care of your patient. Dictated and Authenticated by: Juan Pablo Agosto MD 04/11/2023 6:44 AM Eastern Time ([place] & [place]) HPI General Date/Time Provider Initiated Documentation: 04/11/23 04:18. HPI Narrative: This is a pleasant 82-year-old female with a past medical history of peripheral vertigo, obstructive sleep apnea, hypothyroidism, partial colectomy and ostomy secondary to colonoscopy complication, who presents today via EMS after fall, confusion, and per inability to care for her anymore at home. It appears per and EMS that over the last few weeks the patient has had increased confusion, and falls. They were recently at [facility] and had an MRI done which was read as negative for acute process. However she has had continued persistent falls and confusion and the feels that he is no longer able to safely care for her. Patient has no complaints. She fell this evening in the bathroom, she was not on the floor for long as the heard the fall. She denies any headache or chest pain. She does admit to mild abdominal pain. She has no other complaints at this time. She offers no other additional historical components. She is not on any blood thinners. Related Data Home Medications Medication Instructions Recorded Confirmed multivitamin (One Daily 1 tab PO BID 08/06/18 02/13/23 Multivitamin tablet) cyanocobalamin (vitamin B-12) 500 500 mcg PO DAILY 08/22/19 02/13/23 mcg tablet magnesium chloride 64 mg 64 mg PO .1 x2 daily 06/05/21 02/13/23 (magnesium chloride) tablet polyethylene glycol 3350 17 17 g PO DAILY PRN 06/05/21 02/13/23 gram/dose oral powder (Miralax) pyridoxine (vitamin B6) 100 mg 100 mg PO DAILY 11/17/21 07/28/23 tablet levothyroxine 100 mcg tablet 100 mcg PO DAILY #90 tabs 02/13/22 02/13/23 duloxetine 40 mg capsule,delayed 40 mg PO DAILY #90 caps 09/03/22 02/13/23 release methylprednisolone 4 mg tablet 2 mg PO DAILY #15 tabs 12/23/22 02/13/23 ferrous gluconate 324 mg (38 mg 324 mg PO TID iron deficient 03/03/23 iron) tablet anemia #90 tabs zolpidem 12.5 mg tablet,extended 12.5 mg PO QHS #28 tabs 03/11/23 release,multiphase (Ambien CR) oxycodone 5 mg tablet 5 mg PO DAILY PRN severe pain 03/26/23 (scale score 7-10) #35 tabs Previous Rx's Medication Instructions Recorded levothyroxine 100 mcg tablet 100 mcg PO DAILY #90 tabs 02/13/22 duloxetine 40 mg capsule,delayed 40 mg PO DAILY #90 caps 09/03/22 release methylprednisolone 4 mg tablet 2 mg PO DAILY #15 tabs 12/23/22 ferrous gluconate 324 mg (38 mg 324 mg PO TID iron deficient 03/03/23 iron) tablet anemia #90 tabs zolpidem 12.5 mg tablet,extended 12.5 mg PO QHS #28 tabs 03/11/23 release,multiphase (Ambien CR) oxycodone 5 mg tablet 5 mg PO DAILY PRN severe pain 03/26/23 (scale score 7-10) #35 tabs Allergies Allergy/AdvReac Type Severity Reaction Status Date / Time banana Allergy Intermediate Other (See Verified 02/13/23 09:06 Comment) cucumber Allergy Intermediate Other (See Verified 02/13/23 09:06 Comment) Iodinated Contrast Media Allergy Intermediate Anaphylaxis Unverified 02/13/23 09:06 chloramphenicol AdvReac Severe KIDNEY Verified 02/13/23 09:06 FAILURE tetracycline AdvReac Severe KIDNEY Verified 02/13/23 09:06 FAILURE melon AdvReac Intermediate Cantaloupe-Abd Verified 02/13/23 09:06 pain, diarrhea ADHESIVE TAPE Allergy Intermediate takes skin Uncoded 02/13/23 09:06 off SUTURE MATERIAL Allergy Intermediate Purluent Uncoded 02/13/23 09:06 Drainage General Stated Complaint: Fall/Non TraumaCriteria JOSHUA: 3 Review of Systems All systems reviewed & are unremarkable except as noted in HPI and below PFSH All Active Problems 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 : hepatic steatosis Obstructive sleep apnea syndrome (Chronic) after closed head injury pt not using CPAP machine Osteoporosis (Chronic) Bone density scan : 11/2021, managed by Rhe[facility], on prolia PMR (polymyalgia rheumatica) (Chronic 01/15/16) DX 2016 : /curtis resp. 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 Had ostomy mgmt and hernia improved, but not resolved. Essential hypertension (Chronic) Chronic pain syndrome (Chronic) Due to chronic back pain, 08/2021-drug contract at [facility], V PMS review,11/2021-urine drug screen Using oxycodone for pain mgmt when taking a shower. Insomnia (Chronic) 08/2021 , chronic zolpidem use 12.5 mg. Patient aware that there is higher than recommended dose. 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 Colostomy status (Chronic) Medical History Brain bleed 05/2021 tx at [facility], intra parenchymal left-sided hemorrhage-treated through [facility] Colon polyp (06/28/18) adenoma colon pollyps-1997; none on subsequent colonoscopies; most recent c-scope in 2005 was normal 2017-adenoma Compression fracture of body of thoracic vertebra Excessive sweating (06/02/16) daytime sweating if >74 degrees/ fatigue normal cbc, spep,echocardiogram,sed.rate,cmp Insomnia Palliative care patient Perforation of colon as colonoscopy complication Raynaud's disease T12 burst fracture Tuberculosis Surgical History Colonoscopy - [facility] ADENOMA COLON POLYPS 1997, NONE ON MULTIPLE SUBSEQUENT COLONOSCOPIES, MOST RECENT C-SCOPE 2005 WAS NORMAL, 2018 - cecal polyp, diverticulosis EGD - [facility] (~2003) MILD EROSIVE ESOPHAGITIS, NO PINON'S ON BIOPSY H/O dilation and curettage H/O partial resection of colon Sigmoid colon resection 06/28/18 Laparoscopic, Ovarian Cystectomy B/L S/P appendectomy S/P BSO (bilateral salpingo-oophorectomy) S/P hysterectomy S/P kyphoplasty S/P rotator cuff repair S/P tonsillectomy Family History Mother , in her 80s from pneumonia Heart disease Pneumonia Father , from complications of prostate surgery in his 80s Stroke Personal history of malignant neoplasm Heart disease Brother , aged 68 Alcohol abuse Cirrhosis with alcoholism Grandfather Essential hypertension Heart disease Grandmother Personal history of malignant neoplasm Stroke Grandmother Personal history of malignant neoplasm Son , from his drinking/SA; her oldest child Alcohol abuse Social History Smoking/Tobacco Use Status: Former Tobacco Use Smoking risk assessment performed?: Yes Alcohol Intake: current Alcohol Intake frequency: holidays/special occasions only Alcohol type: hard liquor Drug use: Never Substance use type: does not use Household members: other 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 3.ENT: Atraumatic external nose and ears. Moist MM. Neck: Symmetric, trachea midline, No thyromegaly. There is no evidence of raccoon eyes, hilliard sign, CSF rhinorrhea, mastoid tenderness, cranial crepitus, hemotympanum, exophthalmos, or hyphema. Patient demonstrates intact dentition with no signs of tooth avulsion or fracture, no signs of jaw deformity, no evidence of a LeFort's fracture, with an intact palate, nose and orbital region. There is no evidence of a nasal septal hematoma. No proptosis. Jaw closes symmetrically. Airway is clear. 4.CVS: +S1/S2, No murmurs or gallops. Peripheral pulses 2+ and equal in all extremities. Brisk capillary refill in all extremities. 5.RESP: Unlabored respiratory effort. Clear to auscultation bilaterally. No wheezes rales or rhonchi 6.GI: Soft, nondistended. No guarding or rebound. Ostomy site is intact. No bleeding. Mild achiness throughout. 7.MSK: Normocephalic/Atraumatic, Extremities w/o deformity or ttp No cyanosis or clubbing, Normal movement of all extremities 8.Skin: Warm, Dry. No rashes or lesions. 9.Neuro: manager switch II-XII grossly intact. Sensation grossly intact, no focal neurologic deficits. 10.Psych: (AAO) x1. Appropriate mood and affect Course Vital Signs Vital signs: Vital Signs Temperature 36.9 C 04/11/23 04:11 Pulse 87 04/11/23 04:11 Respiratory Rate 18 04/11/23 04:11 Blood Pressure 172/71 H 04/11/23 04:11 Pulse Oximetry 95 04/11/23 04:11 Temperature 36.9 C 04/11/23 04:11 Temperature Source Temporal Artery Scan 04/11/23 04:11 Pulse 87 09/23/23 04:11 Respiratory Rate 18 04/11/23 04:11 Blood Pressure 172/71 H 04/11/23 04:11 Pulse Oximetry 95 04/11/23 04:11 Oxygen Delivery Method Room Air 04/11/23 04:11 Oxygen Flow Rate 0 04/11/23 04:11 Pain Level 10 04/11/23 04:11
[2023-04-11 04:31] LABS: Abs Immature Grans 0.02 10^3/uL (0.0-0.06); Absolute Basophil Count 0.05 10^3/uL (0.0-0.2); Absolute Eosinophil Count 0.11 10^3/uL (0.0-0.7); Absolute Monocyte Count 0.97 10^3/uL (0.1-0.8); Absolute Neutrophil Count 6.25 10^3/uL (1.2-6.7); Basophils % 0.6; Eosinophils % 1.2; HCT 32.5 % (36.0-46.0); HGB 10.2 g/dL (11.2-15.7); Immature Grans % 0.2; Lymphocytes % 16.9; MCH 28.3 pg (27.0-33.0); MCHC 31.4 % (32.0-36.0); MCV 90 fL (80-95); MPV 10.4 fL (8.0-11.0); Monocytes % 10.9; Neutrophils % 70.2; Platelet Count 273 10^3/uL (130-400); RBC 3.61 10^6/uL (3.93-5.22); RDW 13.6 % (11.7-14.6)
[2023-04-11 04:32] LABS: BE (Venous) 2 mmol/L (-2-3); HCO3 (Venous) 27 mmol/L (23-28); O2 Sat (Venous) 78 %; TCO2 (Venous) 25 mmol/L (24-29); pCO2 (Venous) 43 mmHg (41-51); pO2 (Venous) 44 mmHg
[2023-04-11] MEDS: ACETAMINOPHEN 1,000 MG/100 ML BTL 400 MG IVPB (04:37)
[2023-04-11 04:58] LABS: ALT 18 U/L (14-59); AST 16 U/L (15-37); Albumin 3.1 g/dL (3.4-5.0); Alkaline Phosphatase 93 U/L (46-116); Anion Gap 9.8 mmol/L (3-11); BUN 16 mg/dL (7-18); Bilirubin, Total 0.2 mg/dL (0.2-1.0); CO2 26.2 mmol/L (21.0-32.0); CREATININE 0.9 mg/dL (0.55-1.02); Calcium 9.2 mg/dL (8.5-10.1); Chloride 103 mmol/L (98-107); Estimated GFR 64.23 (mL/min/1.73m2); Glucose 111 mg/dL (74-106); Potassium 3.7 mmol/L (3.5-5.1); Sodium 139 mmol/L (136-145); TSH (W/Ref FT4) 5.59 uIU/mL (0.36-3.74); Total Protein 7.3 g/dL (6.4-8.2); Troponin I < 50 ng/L (<or=60)
[2023-04-11 05:00] LABS: ETHANOL BLOOD < 3.0 mg/dL (<10)
[2023-04-11] MEDS: Normal Saline 1,000 ML 150 ML IV (05:01)
[2023-04-11 05:09] LABS: COVID-19 PCR Negative (Negative); Influenza A PCR Negative (Negative); Influenza B PCR Negative (Negative); RSV PCR Negative (Negative)
[2023-04-11 05:12] LABS: Source Nasopharynx
[2023-04-11 05:34] LABS: Bilirubin Negative (Negative); Blood Negative (Negative); Clarity Clear (Clear); Glucose Negative (Negative); Ketones Negative (Negative); Leukocyte Esterase Negative (Negative); Nitrite Negative (Negative); Specific Gravity 1.025 (1.005-1.025); Urobilinogen 0.2 mg/dL (Up to 0.2); pH 5.5 (5-8)
--- NOTE | 2023-04-11 06:44 | DI.VRAD_ITS ---
PROCEDURE INFORMATION: Exam: CT Chest Without Contrast; Diagnostic Exam date and time: 04/11/2023 4:54 AM Age: 82 years old Clinical indication: Abdominal pain; Other: Not specified; Patient HX: Fall; Confusion TECHNIQUE: Imaging protocol: Diagnostic computed tomography of the chest without contrast. Radiation optimization: All CT scans at this facility use at least one of these dose optimization techniques: automated exposure control; mA and/or kV adjustment per patient size (includes targeted exams where dose is matched to clinical indication); or iterative reconstruction. COMPARISON: CT CHEST/ABD/PEL WO 07/28/2022 11:46 AM FINDINGS: Lungs: Unremarkable. No consolidation. No masses. Pleural spaces: Unremarkable. No pneumothorax. No pleural effusion. Heart: Unremarkable. No cardiomegaly. No pericardial effusion. Lymph nodes: Unremarkable. No enlarged lymph nodes. Vasculature: Unremarkable. No aortic aneurysm. 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 Soft tissues: Unremarkable. IMPRESSION: No acute findings. No CT evidence for acute traumatic injury to the chest PROCEDURE INFORMATION: Exam: CT Abdomen And Pelvis Without Contrast Exam date and time: 04/11/2023 4:54 AM Age: 82 years old Clinical indication: Abdominal pain; Other: Not specified; Patient HX: Fall; Confusion TECHNIQUE: Imaging protocol: Computed tomography of the abdomen and pelvis without contrast. Radiation optimization: All CT scans at this facility use at least one of these dose optimization techniques: automated exposure control; mA and/or kV adjustment per patient size (includes targeted exams where dose is matched to clinical indication); or iterative reconstruction. COMPARISON: CT CHEST/ABD/PEL WO 07/28/2022 11:46 AM FINDINGS: Liver: Cirrhosis. Gallbladder and bile ducts: Normal. No calcified stones. No ductal dilation. Pancreas: Normal. No ductal dilation. Spleen: Normal. No splenomegaly. Adrenal glands: Normal. No mass. Kidneys and ureters: Right renal cyst No hydronephrosis. Stomach and bowel: No obstruction. No mucosal thickening. Appendix: No evidence of appendicitis. Intraperitoneal space: Unremarkable. No free air. No significant fluid collection. Vasculature: Unremarkable. No abdominal aortic aneurysm. Lymph nodes: Unremarkable. No enlarged lymph nodes. Urinary bladder: Unremarkable as visualized. Reproductive: Prior hysterectomy. Bones/joints: Unremarkable. No acute fracture. Soft tissues: Left-sided ostomy IMPRESSION: No acute findings. No solid organ injury observed Nonurgent findings as noted Dictated and Authenticated by: Juan Pablo Agosto MD. Ordering:LEONOR Encinas MD
--- NOTE | 2023-04-11 08:02 | DI.VRAD_ITS ---
PROCEDURE INFORMATION: Exam: CT Head Without Contrast Exam date and time: 04/11/2023 4:48 AM Age: 82 years old Clinical indication: Injury or trauma; Fall; Injury date: Today TECHNIQUE: Imaging protocol: Computed tomography of the head without contrast. Radiation optimization: All CT scans at this facility use at least one of these dose optimization techniques: automated exposure control; mA and/or kV adjustment per patient size (includes targeted exams where dose is matched to clinical indication); or iterative reconstruction. COMPARISON: CT HEAD WO 06/20/2021 1:51 PM FINDINGS: Limitations: Mild motion artifact. Brain: No intracranial hemorrhage appreciated. No significant focal mass effect or significant midline shift. Generalized parenchymal volume loss. Chronic ischemic changes are noted. Left parieto-occipital encephalomalacia. Cerebral ventricles: No disproportionate ventriculomegaly. Paranasal sinuses: No air-fluid levels seen. Mastoid air cells: No mastoid effusion. Bones/joints: No acute cranial vault fracture seen. Soft tissues: No acute findings. Vasculature: Arterial calcifications. IMPRESSION: 1. No intracranial sequelae of trauma appreciated. 2. Nonacute findings as outlined above. 3. Additional studies dictated separately. PROCEDURE INFORMATION: Exam: CT Cervical Spine Without Contrast Exam date and time: 04/11/2023 4:48 AM Age: 82 years old Clinical indication: Injury or trauma; Fall; Injury date: Today TECHNIQUE: Imaging protocol: Computed tomography of the cervical spine without contrast. Radiation optimization: All CT scans at this facility use at least one of these dose optimization techniques: automated exposure control; mA and/or kV adjustment per patient size (includes targeted exams where dose is matched to clinical indication); or iterative reconstruction. COMPARISON: No relevant prior studies are available for comparison. FINDINGS: Limitations: Motion artifact degrades image quality. Bones/joints: No definite acute cervical spine fracture identified, within the limitations noted above. Multilevel degenerative changes. These are most pronounced at C5-C6 and C6-C7. Reversal of the normal cervical lordosis may reflect positioning or muscle spasm; correlate clinically. Minimal anterolisthesis of C4 on C5. Lungs: No acute findings. Lymph nodes: Bilateral cervical lymph nodes. Vasculature: Arterial calcifications. Soft tissues: No acute findings. IMPRESSION: 1. No acute osseous injury appreciated in the cervical spine. 2. Findings as above. 3. Additional studies dictated separately. Dictated and Authenticated by: Joan Evans MD. Ordering:LEONOR Encinas MD
--- NOTE | 2023-04-11 08:34 | W.EDPROG ---
Date of service: 04/11/23 Time of Service: 08:37 Medical Decision Making Patient resting comfortably no acute distress. Labs and imaging unremarkable. Patient evaluated by care management who has initiated plan for home health care and outpatient resources. comfortable with patient returning home. Sign Out Sign Out Data: Sign Out Comment: Multiple falls at home, confused at new baseline. does not feel comfortable with patient at home without resources. Contacting case management for potential outpatient resources with gradual plan for potential placement at some point. is on board with plan, and available to talk over the phone for any questions. He will pick the patient up if disposition is for discharge home with resources. Last updated by Huang Kern DO at 04/11/23 07:37 Discharge Plan Disposition Patient Disposition: Home Discharge Details Chief Complaint: Fall/Non TraumaCriteria Clinical Impression: Fall Primary Care Provider: Keyana Olivas ED Provider: Matheus Reese Home Meds and New Rx's Prescriptions: No Action pyridoxine (vitamin B6) 100 mg tablet 100 mg PO DAILY magnesium chloride 64 mg magnesium tablet 64 mg PO .1 x2 daily polyethylene glycol 3350 [Miralax] 17 gram/dose powder 17 g PO DAILY PRN multivitamin [One Daily Multivitamin] tablet 1 tab PO BID cyanocobalamin (vitamin B-12) 500 mcg tablet 500 mcg PO DAILY duloxetine 40 mg capsule,delayed release(DR/EC) 40 mg PO DAILY Qty: 90 1RF Patient Comments: not taking methylprednisolone 4 mg tablet 2 mg PO DAILY Qty: 15 0RF levothyroxine 100 mcg tablet 100 mcg PO DAILY Qty: 90 3RF Patient Comments: not taking the way /i should ferrous gluconate 324 mg (38 mg iron) tablet 324 mg PO TID Qty: 90 6RF zolpidem [Ambien CR] 12.5 mg tablet,ext release multiphase 12.5 mg PO QHS Qty: 28 3RF Hold Instructions: no longer effective oxycodone 5 mg tablet 5 mg PO DAILY MDD 5mg PRN (Reason: severe pain (scale score 7-10)) Qty: 35 0RF Discharge Instructions Instructions: Fall Prevention for Older Adults (ED) Additional Instructions: Care management will be reaching out to help coordinate home health care and other resources as an outpatient. Please return to the emergency department for any worsening symptoms
--- NOTE | 2023-04-11 15:04 | PDOC.CMPRO ---
Date of service: 04/11/23 Time of Service: 15:04 Care Management Progress Note Progress Note Text Progress Note Text: Riddhi presents in the ED after falling at home. At the request of ED provider, CM contacts Pat's , Bryan, by telephone to offer support. Bryan states he and his have been for 61 years. They have 3 grown children, all of whom live out of [facility] ([place], [place] and [place]). Bryan says 4 years ago their life changed quite a bit due to Amanda getting an ostomy. He explains they used to go out a lot and take part in different activities but since the surgery, Amanda has become more of a homebody. According to her , Amanda has also experienced a decline in her cognitive and physical function over the past few years. Bryan is currently patient's sole caregiver and he is looking for in-home supports. We discuss short term rehab and/or a SNF placement, which Bryan declines saying he would prefer for his to remain at home. We then discuss Home Health services and Bryan is agreeable to this. CM coordinates a referral to Home Health for new PT and PRODUCT DIRECTOR services. A referral is also made to [facility] for caregiver support, with 's approval.
== END 2023-04-11 09:33 | disposition home or self-care (01) ==
PROVIDERS: Student in an Organized Health Care Education/Training Program; Emergency Provider Emergency Medicine; PCP Family Medicine
DX: S60.511A Abrasion of right hand, initial encounter (principal); S00.81XA Abrasion of other part of head, initial encounter; E03.9 Hypothyroidism, unspecified; M35.3 Polymyalgia rheumatica; Z20.822 Contact with and (suspected) exposure to COVID-19; Z91.81 History of falling; Z87.891 Personal history of nicotine dependence; W01.0XXA Fall on same level from slipping, tripping and stumbling without subsequent striking against object, initial encounter; Y93.01 Activity, walking, marching and hiking; Y92.012 Bathroom of single-family (private) house as the place of occurrence of the external cause; Z79.899 Other long term (current) drug therapy; Y99.9 Unspecified external cause status
CPT/HCPCS: 36415; 71250; 80053; 82805; 87637; 93005; 96365; 96366; 99285; 70450; 72125; 74176; 80320; 81003; 84439; 84443; 84484; 85025; 93010; 99284; J0131

== ENCOUNTER 2023-04-17 12:26 | Emergency (ER) | payer MEDICARE, SELFPAY ==
[2023-04-17 12:35] VITALS: BP 135/76; PULSE 61; RESP 18; TEMP 36.5; O2SAT 94
--- NOTE | 2023-04-17 13:00 | DI.CT_ITS ---
Exam(s) CT HEAD CERVICAL SPINE WO EXAM: CT HEAD CERVICAL SPINE WO CLINICAL HISTORY: Fall, FLORES, Neck pain. TECHNIQUE: Imaging Protocol: Axial computed tomography images with coronal and sagittal reformatted images were created and reviewed COMPARISON: CT CT HEAD CERVICAL SPINE WO from 04/11/2023 FINDINGS: CT Head: Ventricles and Extra axial spaces: Normal in size and morphology for the patient's age. Hemorrhage: None. Cerebral parenchyma: Stable small vessel ischemic disease and left occipital encephalomalacia. Midline shift: None. Brainstem/Cerebellum: Normal. Calvarium: Normal. Visualized Paranasal sinuses/Mastoids: Clear. Soft Tissues: Unremarkable. CT Cervical Spine: Bones: No acute fracture or subluxation. There is straightening of the normal cervical lordosis. Thi s is likely due to patient positioning or muscle spasm. Soft Tissues: Unremarkable. Lung Apices: Clear. IMPRESSION: 1. No acute intracranial process. 2. No acute fracture or subluxation in the cervical spine. RADIATION DOSE DELIVERED: 1,256.39mGy.cm Total DLP DATA REPOSITORY: All CT scans at this facility are submitted to the National Radiology Data Registry (NRDR) Dose Index Registry (DIR) with the [employer] ([employer]). RADIATION OPTIMIZATION: All CT scans at this facility use at least one of these dose optimization te chniques: automated exposure control; mA and/or kV adjustment per patient size (includes targeted exa ms where dose is matched to clinical indication); or iterative reconstruction.
--- NOTE | 2023-04-17 13:03 | W.ED.GENAD ---
Discharge Plan Disposition Patient Disposition: Home Condition: Stable Discharge Details Clinical Impression: Multiple fractures of ribs of right side Primary Care Provider: Keyana Olivas ED Provider: Blanca Denny Home Meds and New Rx's Prescriptions: New lidocaine 5 % adhesive patch,medicated 1 patch topical DAILY Qty: 15 0RF Rx Instructions: leave on most painful area for up to 12 hrs Continued pyridoxine (vitamin B6) 100 mg tablet 100 mg PO DAILY magnesium chloride 64 mg magnesium tablet 64 mg PO .1 x2 daily polyethylene glycol 3350 [Miralax] 17 gram/dose powder 17 g PO DAILY PRN donepezil 5 mg tablet 5 mg PO QHS Qty: 30 1RF multivitamin [One Daily Multivitamin] tablet 1 tab PO BID cyanocobalamin (vitamin B-12) 500 mcg tablet 500 mcg PO DAILY duloxetine 40 mg capsule,delayed release(DR/EC) 40 mg PO DAILY Qty: 90 1RF Patient Comments: not taking methylprednisolone 4 mg tablet 2 mg PO DAILY Qty: 15 0RF levothyroxine 100 mcg tablet 100 mcg PO DAILY Qty: 90 3RF Patient Comments: not taking the way /i should ferrous gluconate 324 mg (38 mg iron) tablet 324 mg PO TID Qty: 90 6RF zolpidem [Ambien CR] 12.5 mg tablet,ext release multiphase 12.5 mg PO QHS Qty: 28 3RF Hold Instructions: no longer effective oxycodone 5 mg tablet 5 mg PO DAILY MDD 5mg PRN (Reason: severe pain (scale score 7-10)) Qty: 35 0RF Discharge Instructions Instructions: Rib Fracture (ED) Additional Instructions: The CT shows rib fractures of #6 and 7 on the right side. I do believe this is what is causing your pain. The rest of the imaging is within normal limits. Please use the lidocaine patches once daily as directed. Continue to take Tylenol. You may apply ice to the area. Follow up with primary care provider in 3-5 days. Return to ED sooner if any worsening or concerns. Increase oral fluids. Please take Tylenol with food every 4-6 hours as needed for pain and swelling. Referrals: Keyana Olivas MD [Primary Care Provider] - 3 days Discharge Data Discharge Date/Time-TO BE ENTERED AT DEPARTURE: 04/17/23 16:05 Medical Decision Making 82-year-old female presents to the ER with chief complaint of back pain, neck pain and headache after a suppose a fall last week. Patient reports she has no recollection of the event and does not know how she fell. She is covered in healing bruises to her left upper arm, right flank and left flank and bilateral arms. She does have a past medical history of insomnia, chronic pain syndrome hypertension, GERD, anemia adrenal insufficiency osteoporosis nonalcoholic fatty liver disease hypothyroidism and depression. She does have a history of frequent falls was seen here in the ER approximately 6 days ago for similar. She reports that her did tell her that she fell however she does not remember it she was given Tylenol prior to arrival by EMS. Labs ordered and CT Head, Cspine, T and L soine and chest abd pelvis, due to patient not having memory of fall. and Multiple bruising. Spoke with Radiology, Right 6th and 7th rib fractures noted which are new from last week. On patient re-evaluation, family and at . Discussed CT results with them, patient given lidocaine patches and prescription for patches. Verbalized understanding. Patient discharged with home care and strict return instructions, verbalized understanding. This text was generated using [employer] dictation system, please disregard any oddities of phrase or misspellings. Medical Records Medical records reviewed: Yes I reviewed the patient's medical records. Imaging Data Radiologic Study: Imaging: CT Scan Radiologist's impression: IMPRESSION: 1. New mm displaced fractures involving the anterolateral aspects of the right 6th and 7th ribs. 2. No acute abdominal or pelvic process is seen. 3. No acute fracture or subluxation of the thoracic or lumbar spine 4. Findings were discussed with Blanca Woodruff at 3:12 p.m. on 04/17/2023. Lab Data Lab results reviewed: Yes I reviewed the patient's lab results. Labs: Laboratory Tests Range/Units 04/17/23 04/17/23 13:30 13:30 WBC (4.4-10.8) 10^3/uL 8.69 RBC (3.93-5.22) 10^6/uL 3.67 L Hgb (11.2-15.7) g/dL 10.7 L Hct (36.0-46.0) % 33.7 L MCV (80-95) fL 92 MCH (27.0-33.0) pg 29.2 MCHC (32.0-36.0) % 31.8 L RDW (11.7-14.6) % 13.7 Plt Count (130-400) 10^3/uL 306 MPV (8.0-11.0) fL 10.2 Immature Gran % 0.3 Neutrophils % 72.2 Lymphocytes % 15.7 Monocytes % 9.9 Eosinophils % 1.4 Basophils % 0.5 Nucleated RBC % (0.0-0.3) % 0.0 Absolute Neutrophils (1.2-6.7) 10^3/uL 6.28 Absolute Lymphocytes (1.2-3.4) 10^3/uL 1.36 Absolute Monocytes (0.1-0.8) 10^3/uL 0.86 H Absolute Eosinophils (0.0-0.7) 10^3/uL 0.12 Absolute Basophils (0.0-0.2) 10^3/uL 0.04 Sodium (136-145) mmol/L 141 Potassium (3.5-5.1) mmol/L 3.9 Chloride (98-107) mmol/L 104 Carbon Dioxide (21.0-32.0) mmol/L 29.2 Anion Gap (3-11) mmol/L 7.8 BUN (7-18) mg/dL 15 Creatinine (0.55-1.02) mg/dL 0.9 Est GFR (CKD-EPI 2020) (mL/min/1.73m2) 64.23 Glucose (74-106) mg/dL 115 H Calcium (8.5-10.1) mg/dL 9.7 Total Bilirubin (0.2-1.0) mg/dL 0.2 AST (15-37) U/L 13 L ALT (14-59) U/L 18 Alkaline Phosphatase (46-116) U/L 95 Total Protein (6.4-8.2) g/dL 7.4 Albumin (3.4-5.0) g/dL 3.2 L HPI General Mode of arrival: EMS. Date/Time Provider Initiated Documentation: 04/17/23 12:45. Limitations to Documentation: altered mental status. Information obtained by: patient, EMS, RN notes reviewed and old records reviewed. HPI Narrative: 82-year-old female presents to the ER with chief complaint of back pain, neck pain and headache after a suppose a fall last week. Patient reports she has no recollection of the event and does not know how she fell. She is covered in healing bruises to her left upper arm, right flank and left flank and bilateral arms. She does have a past medical history of insomnia, chronic pain syndrome hypertension, GERD, anemia adrenal insufficiency osteoporosis nonalcoholic fatty liver disease hypothyroidism and depression. She does have a history of frequent falls was seen here in the ER approximately 6 days ago for similar. She reports that her did tell her that she fell however she does not remember it she was given Tylenol prior to arrival by EMS. Related Data Home Medications Medication Instructions Recorded Confirmed multivitamin (One Daily 1 tab PO BID 08/06/18 04/15/23 Multivitamin tablet) cyanocobalamin (vitamin B-12) 500 500 mcg PO DAILY 08/22/19 04/15/23 mcg tablet magnesium chloride 64 mg 64 mg PO .1 x2 daily 06/05/21 04/15/23 (magnesium chloride) tablet polyethylene glycol 3350 17 17 g PO DAILY PRN 06/05/21 04/15/23 gram/dose oral powder (Miralax) pyridoxine (vitamin B6) 100 mg 100 mg PO DAILY 06/05/21 04/15/23 tablet levothyroxine 100 mcg tablet 100 mcg PO DAILY #90 tabs 02/13/22 04/15/23 duloxetine 40 mg capsule,delayed 40 mg PO DAILY #90 caps 09/03/22 04/15/23 release methylprednisolone 4 mg tablet 2 mg PO DAILY #15 tabs 12/23/22 04/15/23 ferrous gluconate 324 mg (38 mg 324 mg PO TID iron deficient 03/03/23 04/15/23 iron) tablet anemia #90 tabs zolpidem 12.5 mg tablet,extended 12.5 mg PO QHS #28 tabs 03/11/23 04/15/23 release,multiphase (Ambien CR) oxycodone 5 mg tablet 5 mg PO DAILY PRN severe pain 03/26/23 04/15/23 (scale score 7-10) #35 tabs donepezil 5 mg tablet 5 mg PO QHS #30 tabs 04/15/23 04/15/23 lidocaine 5 % topical patch 1 patch topical DAILY #15 ea 09/29/23 Previous Rx's Medication Instructions Recorded levothyroxine 100 mcg tablet 100 mcg PO DAILY #90 tabs 02/13/22 duloxetine 40 mg capsule,delayed 40 mg PO DAILY #90 caps 09/03/22 release methylprednisolone 4 mg tablet 2 mg PO DAILY #15 tabs 12/23/22 ferrous gluconate 324 mg (38 mg 324 mg PO TID iron deficient 03/03/23 iron) tablet anemia #90 tabs zolpidem 12.5 mg tablet,extended 12.5 mg PO QHS #28 tabs 03/11/23 release,multiphase (Ambien CR) oxycodone 5 mg tablet 5 mg PO DAILY PRN severe pain 03/26/23 (scale score 7-10) #35 tabs donepezil 5 mg tablet 5 mg PO QHS #30 tabs 04/15/23 lidocaine 5 % topical patch 1 patch topical DAILY #15 ea 04/17/23 Allergies Allergy/AdvReac Type Severity Reaction Status Date / Time banana Allergy Intermediate Other (See Verified 04/15/23 13:03 Comment) cucumber Allergy Intermediate Other (See Verified 04/15/23 13:03 Comment) Iodinated Contrast Media Allergy Intermediate Anaphylaxis Unverified 04/15/23 13:03 chloramphenicol AdvReac Severe KIDNEY Verified 04/15/23 13:03 FAILURE tetracycline AdvReac Severe KIDNEY Verified 04/15/23 13:03 FAILURE melon AdvReac Intermediate Cantaloupe-Abd Verified 04/15/23 13:03 pain, diarrhea ADHESIVE TAPE Allergy Intermediate takes skin Uncoded 04/15/23 13:03 off SUTURE MATERIAL Allergy Intermediate Purluent Uncoded 04/15/23 13:03 Drainage General Stated Complaint: Chest/Rib JOSHUA: 3 Review of Systems All systems reviewed & are unremarkable except as noted in HPI and below Constitutional Constitutional: Reports frequent falls Neurologic Neurologic: Reports frequent falls PFSH All Active Problems (Updated 04/17/23 @ 15:28 by Blanca Denny NP) 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 : hepatic steatosis Obstructive sleep apnea syndrome (Chronic) after closed head injury pt not using CPAP machine Osteoporosis (Chronic) Bone density scan -2015: 11/2021, managed by [facility] [place], on prolia PMR (polymyalgia rheumatica) (Chronic 01/15/16) DX 2016 : /curtis resp. 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 Had ostomy mgmt and hernia improved, but not resolved. Essential hypertension (Chronic) Chronic pain syndrome (Chronic) Due to chronic back pain, 08/2021-drug contract at [facility], V PMS review,11/2021-urine drug screen Using oxycodone for pain mgmt when taking a shower. Insomnia (Chronic) 08/2021 , chronic zolpidem use 12.5 mg. Patient aware that there is higher than recommended dose. 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 Colostomy status (Chronic) Fall (Acute) Multiple fractures of ribs of right side (Acute) Medical History Brain bleed 05/2021 tx at [facility], intra parenchymal left-sided hemorrhage-treated through [facility] Colon polyp (06/28/18) adenoma colon pollyps-1997; none on subsequent colonoscopies; most recent c-scope in 2005 was normal 2017-adenoma Compression fracture of body of thoracic vertebra Excessive sweating (06/02/16) daytime sweating if >74 degrees/ fatigue normal cbc, spep,echocardiogram,sed.rate,cmp Insomnia Palliative care patient Perforation of colon as colonoscopy complication Raynaud's disease T12 burst fracture Tuberculosis Surgical History Colonoscopy - [facility] ADENOMA COLON POLYPS 1997, NONE ON MULTIPLE SUBSEQUENT COLONOSCOPIES, MOST RECENT C-SCOPE 2005 WAS NORMAL, 2018 - cecal polyp, diverticulosis EGD - [facility] (~2003) MILD EROSIVE ESOPHAGITIS, NO PINON'S ON BIOPSY H/O dilation and curettage H/O partial resection of colon Sigmoid colon resection 06/28/18 Laparoscopic, Ovarian Cystectomy B/L S/P appendectomy S/P BSO (bilateral salpingo-oophorectomy) S/P hysterectomy S/P kyphoplasty S/P rotator cuff repair S/P tonsillectomy Family History Mother , in her 80s from pneumonia Heart disease Pneumonia Father , from complications of prostate surgery in his 80s Stroke Personal history of malignant neoplasm Heart disease Brother , aged 68 Alcohol abuse Cirrhosis with alcoholism Grandfather Essential hypertension Heart disease Grandmother Personal history of malignant neoplasm Stroke Grandmother Personal history of malignant neoplasm Son , from his drinking/SA; her oldest child Alcohol abuse Social History Smoking/Tobacco Use Status: Former Tobacco Use Smoking risk assessment performed?: Yes Alcohol Intake: current Alcohol Intake frequency: holidays/special occasions only Alcohol type: hard liquor Drug use: Never Substance use type: does not use Household members: other 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 Skin: Warm and Dry HEENT: Head: No palpable deformities, Normocephalic Eyes: Pupils PERRLA, EOM's intact. No periorbital eccymosis or step off Ears: Canal patent. Tympanic membranes are clear . No hilliard's sign, no hemptympanum. Nose/Face: Atraumatic. Facial bones nontender to palpation and stable with manipulation. Mouth/Throat: No intraoral trauma. Teeth and mandible are intact. Neck: Midline C-spine tenderness no step off, no deformity to palpation of C-spine. Trachea midline. Chest: No surface trauma. Nontender without crepitus or deformity. Lungs clear to ausculatation bilaterally. Multiple healing bruises noted. Heart: RRR, no rubs, murmurs or gallop. Abdomen: No abrasions, ecchymosis, or surface trauma. Nondistended. Nontender to palpation no guarding, rebound, or rigidity. Pelvis: Nontender to palpation and stable to compression. Femoral pulses strong and equal Extremities: no surface trauma. Sensation intact. Peripheral pulses intact and equal. Neuro: ANO x4, GCS 15, cranial nerves II through XII intact. Motor and sensory exam nonfocal. Reflexes are symmetric. Course Vital Signs Vital signs: Vital Signs Temperature 36.5 C 04/17/23 12:35 Pulse 61 04/17/23 12:35 Respiratory Rate 18 04/17/23 12:35 Blood Pressure 135/76 04/17/23 12:35 Pulse Oximetry 94 04/17/23 12:35 Temperature 36.5 C 04/17/23 12:35 Temperature Source Oral 04/17/23 12:35 Pulse 61 04/17/23 12:35 Respiratory Rate 18 04/17/23 12:35 Respiratory Effort Normal 04/17/23 12:38 Blood Pressure 135/76 04/17/23 12:35 Blood Pressure Position Sitting 04/17/23 12:35 Pulse Oximetry 94 04/17/23 12:35 Oxygen Delivery Method Room Air 04/17/23 12:35 Oxygen Flow Rate 0 04/17/23 12:35 Pain Level 8 04/17/23 12:35
[2023-04-17 13:41] LABS: Abs Immature Grans 0.03 10^3/uL (0.0-0.06); Absolute Basophil Count 0.04 10^3/uL (0.0-0.2); Absolute Eosinophil Count 0.12 10^3/uL (0.0-0.7); Absolute Lymphocyte Count 1.36 10^3/uL (1.2-3.4); Absolute Monocyte Count 0.86 10^3/uL (0.1-0.8); Absolute Neutrophil Count 6.28 10^3/uL (1.2-6.7); Basophils % 0.5; Eosinophils % 1.4; HCT 33.7 % (36.0-46.0); HGB 10.7 g/dL (11.2-15.7); Immature Grans % 0.3; Lymphocytes % 15.7; MCH 29.2 pg (27.0-33.0); MCHC 31.8 % (32.0-36.0); MCV 92 fL (80-95); MPV 10.2 fL (8.0-11.0); Monocytes % 9.9; Neutrophils % 72.2; Platelet Count 306 10^3/uL (130-400); RBC 3.67 10^6/uL (3.93-5.22); RDW 13.7 % (11.7-14.6); RDW-SD 45.9 fL; WBC 8.69 10^3/uL (4.4-10.8)
[2023-04-17 14:01] LABS: ALT 18 U/L (14-59); AST 13 U/L (15-37); Albumin 3.2 g/dL (3.4-5.0); Alkaline Phosphatase 95 U/L (46-116); Anion Gap 7.8 mmol/L (3-11); BUN 15 mg/dL (7-18); Bilirubin, Total 0.2 mg/dL (0.2-1.0); CO2 29.2 mmol/L (21.0-32.0); CREATININE 0.9 mg/dL (0.55-1.02); Calcium 9.7 mg/dL (8.5-10.1); Chloride 104 mmol/L (98-107); Estimated GFR 64.23 (mL/min/1.73m2); Glucose 115 mg/dL (74-106); Potassium 3.9 mmol/L (3.5-5.1); Sodium 141 mmol/L (136-145); Total Protein 7.4 g/dL (6.4-8.2)
--- NOTE | 2023-04-17 14:45 | DI.CT_ITS ---
Exam(s) CT CHEST/ABD/PEL WO CT THORACIC LUMBAR SPINE REC EXAM: CT CHEST/ABD/PEL WO and CT thoracic and lumbar spine recons CLINICAL HISTORY: Fall, Back pain TECHNIQUE: Imaging Protocol: Axial computed tomography images with coronal and sagittal reformatted images were created and reviewed COMPARISON: CT CT neck w from 09/15/[address] ABDOMEN PELVIS W from 09/15/[address] CHEST/ABD/PEL WO from 04/11/2023 FINDINGS: CHEST: Tracheobronchial tree: Patent where visualized. Pulmonary parenchyma: No acute findings seen in the lungs. Emphysematous changes. Parenchymal scarr ing. Right basilar atelectasis is stable. Mediastinum and Alice: No dominant adenopathy or fluid collection. The esophagus is unremarkable. 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 This is been present on mu ltiple prior examinations. Thyroid gland: Unremarkable. Pleura: No effusion or pneumothorax. Heart: Cardiomegaly. Coronary artery calcification. Dense calcification of the mitral annulus. No pericardial effusion. Aorta: Thoracic aorta non-dilated. Atherosclerosis. Lymph nodes: Within normal limits. Bones:Within normal limits for the patient's age. There are new fractures involving the anterolatera l aspects of the right 7th and 6th ribs. Soft tissues: Unremarkable. Thoracic spine recons: Degenerative changes are present. There is an old T12 compression fracture de formity with evidence of vertebral plasty. No acute fracture or subluxation is seen in the thoracic spine. ABDOMEN: Liver: There is a lobulated contour of the liver suggesting hepatic cirrhosis. No measurable mass. Gallbladder and Biliary Tract: No radiodense calculus or dilation. Pancreas: Normal density, no abnormal calcifications or inflammatory process. Spleen: Normal. Adrenals: No masses seen. Kidneys: Normal size, contour and axis. No radiodense stones or obstructive uropathy. Stable right re nal cysts. No follow-up is recommended. Abdominal Aorta: Abdominal portion non-dilated. Atherosclerosis. Bowel: There is again seen a left lower quadrant colostomy. There are herniated loops of both transv erse colon and small bowel. No evidence of strangulation or obstruction is seen. There is no bowel wall thickening seen in the remaining colon. No evidence of appendicitis. Peritoneal Cavity: No ascites, collection or mesenteric inflammatory response. No free air. Lymph Nodes: Within normal limits. Bones: Within normal limits for the patient's age. Soft Tissues: Unremarkable. PELVIS: Bladder: Symmetric distention, no gross wall thickening. Bladder diverticulum are seen. Reproductive Organs: Status post hysterectomy. Lymph Nodes: Within normal limits. Bones: Within normal limits for the patient's age. Lumbar spine recons: No acute fracture or subluxation is present. IMPRESSION: 1. New mm displaced fractures involving the anterolateral aspects of the right 6th and 7th ribs. 2. No acute abdominal or pelvic process is seen. 3. No acute fracture or subluxation of the thoracic or lumbar spine 4. Findings were discussed with Blanca Woodruff at 3:12 p.m. on 04/17/2023. RADIATION DOSE DELIVERED: Total DLP DATA REPOSITORY: All CT scans at this facility are submitted to the National Radiology Data Registry (NRDR) Dose Index Registry (DIR) with the [employer] (A[employer]). RADIATION OPTIMIZATION: All CT scans at this facility use at least one of these dose optimization te chniques: automated exposure control; mA and/or kV adjustment per patient size (includes targeted exa ms where dose is matched to clinical indication); or iterative reconstruction.
[2023-04-17] MEDS: Lidocaine 5% Patch 1 PATCH TP (15:34)
== END 2023-04-17 16:05 | disposition home or self-care (01) ==
PROVIDERS: Emergency Provider Registered Nurse Emergency; PCP Family Medicine
DX: S22.41XA Multiple fractures of ribs, right side, initial encounter for closed fracture (principal); W19.XXXA Unspecified fall, initial encounter
CPT/HCPCS: 36415; 71250; 80053; 99284; 70450; 72125; 74176; 85025

== ENCOUNTER 2023-06-11 19:01 | Emergency (ER) | payer MEDICARE, SELFPAY ==
[2023-06-11 19:21] VITALS: BP 181/53; PULSE 90; RESP 16; TEMP 36.7; O2SAT 98
--- NOTE | 2023-06-11 19:45 | DI.CT_ITS ---
Exam(s) CT ABDOMEN PELVIS WO EXAM: CT ABDOMEN PELVIS WO CLINICAL HISTORY: abd pain, bleeding from ostomy. TECHNIQUE: Imaging Protocol: Axial computed tomography images with coronal and sagittal reformatted images were created and reviewed. COMPARISON: CT CT THORACIC LUMBAR SPINE REC from 04/17/[address] CHEST/ABD/PEL WO from 04/17/2023 FINDINGS: ABDOMEN: Lung Bases: Mitral valve calcification. Pulmonary cysts and/or emphysema are again seen. Liver: There is a lobulated contour to the liver and mildly enlarged left lobe suggesting hepatic cir rhosis. No measurable mass. Gallbladder and biliary tract: No radiodense calculus or biliary ductal dilation. Pancreas: Normal density, no abnormal calcifications or inflammatory process. Spleen: Normal. Kidneys: Normal size, contour and axis.No radiodense stones or obstructive uropathy. There is stable right renal cysts. No follow-up is recommended. Adrenal glands: No mass is seen. Lymph nodes: Within normal limits. Abdominal Aorta: Abdominal portion non-dilated. Atherosclerosis. PELVIS: Bladder:Similar appearance to prior examination. No acute abnormality. Bowel: There is again seen a left lower quadrant colostomy. There is a peristomal hernia. No eviden ce of bowel obstruction or bowel wall thickening. There is a moderate amount of stool in the colon. No bowel wall thickening or evidence of obstruction is seen. There is no evidence of appendicitis. Peritoneal cavity: No ascites, collection or mesenteric inflammatory response. No free air. Reproductive organs: Status post hysterectomy. Bones: Within normal limits for the patient's age. There are old right healed rib fractures. There is an old T12 compression fracture with evidence of vertebral plasty. Soft Tissues: Please see above section under bowel. IMPRESSION: 1. There is a left-sided colostomy with a large peristomal hernia. No evidence of obstruction or bow el wall thickening. 2. No acute abdominal or pelvic process. RADIATION DOSE DELIVERED: Total DLP DATA REPOSITORY: All CT scans at this facility are submitted to the National Radiology Data Registry (NRDR) Dose Index Registry (DIR) with the [employer] (ACR). RADIATION OPTIMIZATION: All CT scans at this facility use at least one of these dose optimization te chniques: automated exposure control; mA and/or kV adjustment per patient size (includes targeted exa ms where dose is matched to clinical indication); or iterative reconstruction.
--- NOTE | 2023-06-11 19:59 | ED.GENADUL_ITS ---
Discharge Plan Discharge Details Chief Complaint: Abd Prob Primary Care Provider: Keyana Olivas ED Provider: Gio Johnson Home Meds and New Rx's Prescriptions: No Action pyridoxine (vitamin B6) 100 mg tablet 100 mg PO DAILY magnesium chloride 64 mg magnesium tablet 64 mg PO .1 x2 daily polyethylene glycol 3350 [Miralax] 17 gram/dose powder 17 g PO DAILY PRN donepezil 5 mg tablet 5 mg PO QHS Qty: 30 1RF lidocaine 5 % adhesive patch,medicated 1 patch topical DAILY Qty: 15 0RF Rx Instructions: leave on most painful area for up to 12 hrs multivitamin [One Daily Multivitamin] tablet 1 tab PO BID cyanocobalamin (vitamin B-12) 500 mcg tablet 500 mcg PO DAILY duloxetine 40 mg capsule,delayed release(DR/EC) 40 mg PO DAILY Qty: 90 1RF Patient Comments: not taking methylprednisolone 4 mg tablet 2 mg PO DAILY Qty: 15 0RF ferrous gluconate 324 mg (38 mg iron) tablet 324 mg PO TID Qty: 90 6RF levothyroxine 100 mcg tablet 100 mcg PO DAILY Qty: 90 3RF Patient Comments: not taking the way /i should oxycodone 5 mg tablet 5 mg PO DAILY MDD 5mg PRN (Reason: severe pain (scale score 7-10)) Qty: 35 0RF zolpidem 6.25 mg tablet,ext release multiphase 12.5 mg PO QHS Qty: 60 3RF Hold Instructions: no longer effective Medical Decision Making 82-year-old female with history of remote partial resection of colon with colostomy 4 years ago, here with concern for bloody output from ostomy and associated abdominal pain with small shallow skin ulcer adjacent to ostomy. No signs of infection. Ulcer appears to be healing. There is no active bleeding at this time. Given recent bleeding and concern from bloody output from the ostomy and abdominal pain with some tenderness, consider deep space infection/fistula versus other acute surgical process. Will obtain CT of the abdomen pelvis. Patient does have contrast dye allergy listed anaphylaxis and so will avoid contrast. I suspect blood that was previously noted was likely from shallow ulcer. HPI General Mode of arrival: ambulatory . Date/Time Provider Initiated Documentation: 06/11/23 19:03 . Limitations to Documentation: no limitations . Information obtained by: patient . HPI Narrative: 82-year-old female with history of multiple medical problems including prior rectovaginal fistula, colon perforation, 4 years status post partial resection of the colon and colostomy placement, here with chief complaint of bleeding from her ostomy. Patient notes recent wound adjacent to her ostomy site. She was seen at [facility] wound care clinic and has been using MiraLAX over the past few days. She is noted some blood from the wound and also from her ostomy. Patient that she does intermittently have bleeding from ostomy but also was concerned about some abdominal pain adjacent to the ostomy. Related Data Home Medications Medication Instructions Recorded Confirmed multivitamin (One Daily 1 tab PO BID 08/06/18 06/11/23 Multivitamin tablet) cyanocobalamin (vitamin B-12) 500 500 mcg PO DAILY 08/22/19 06/11/23 mcg tablet magnesium chloride 64 mg 64 mg PO .1 x2 daily 06/05/21 06/11/23 (magnesium chloride) tablet polyethylene glycol 3350 17 17 g PO DAILY PRN 06/05/21 06/11/23 gram/dose oral powder (Miralax) pyridoxine (vitamin B6) 100 mg 100 mg PO DAILY 06/05/21 06/11/23 tablet duloxetine 40 mg capsule,delayed 40 mg PO DAILY #90 caps 09/03/22 06/11/23 release methylprednisolone 4 mg tablet 2 mg (1/2 x 4 mg) PO DAILY #15 tabs 12/23/22 06/11/23 ferrous gluconate 324 mg (38 mg 324 mg PO TID iron deficient 03/03/23 06/11/23 iron) tablet anemia #90 tabs donepezil 5 mg tablet 5 mg PO QHS #30 tabs 04/15/23 06/11/23 levothyroxine 100 mcg tablet 100 mcg PO DAILY #90 tabs 04/20/23 06/11/23 lidocaine 5 % topical patch 1 patch topical DAILY #15 ea 04/29/23 04/30/23 oxycodone 5 mg tablet 5 mg PO DAILY PRN severe pain 05/18/23 06/11/23 (scale score 7-10) #35 tabs zolpidem 6.25 mg tablet,extended 12.5 mg (2 x 6.25 mg) PO QHS #60 06/03/23 06/11/23 release,multiphase tabs Previous Rx's Medication Instructions Recorded duloxetine 40 mg capsule,delayed 40 mg PO DAILY #90 caps 09/03/22 release methylprednisolone 4 mg tablet 2 mg (1/2 x 4 mg) PO DAILY #15 tabs 12/23/22 ferrous gluconate 324 mg (38 mg 324 mg PO TID iron deficient 03/03/23 iron) tablet anemia #90 tabs donepezil 5 mg tablet 5 mg PO QHS #30 tabs 04/15/23 levothyroxine 100 mcg tablet 100 mcg PO DAILY #90 tabs 04/20/23 lidocaine 5 % topical patch 1 patch topical DAILY #15 ea 04/29/23 oxycodone 5 mg tablet 5 mg PO DAILY PRN severe pain 05/18/23 (scale score 7-10) #35 tabs zolpidem 6.25 mg tablet,extended 12.5 mg (2 x 6.25 mg) PO QHS #60 06/03/23 release,multiphase tabs Allergies Allergy/AdvReac Type Severity Reaction Status Date / Time banana Allergy Intermediate Other (See Verified 06/11/23 19:27 Comment) cucumber Allergy Intermediate Other (See Verified 06/11/23 19:27 Comment) Iodinated Contrast Media Allergy Intermediate Anaphylaxis Unverified 04/29/23 14:46 chloramphenicol AdvReac Severe KIDNEY Verified 06/11/23 19:27 FAILURE tetracycline AdvReac Severe KIDNEY Verified 06/11/23 19:27 FAILURE melon AdvReac Intermediate Cantaloupe-Abd Verified 06/11/23 19:27 pain, diarrhea ADHESIVE TAPE Allergy Intermediate takes skin Uncoded 06/11/23 19:27 off SUTURE MATERIAL Allergy Intermediate Purluent Uncoded 04/29/23 14:46 Drainage General Stated Complaint: Abd Prob JOSHUA: 3 Review of Systems All systems reviewed & are unremarkable except as noted in HPI and below Constitutional Constitutional: Denies fever(s) Gastrointestinal Gastrointestinal: Reports as per HPI Comments: Normal feces from ostomy Genitourinary Comments: Decreased urination recently PFSH All Active Problems (Updated 05/12/23 @ 00:07 by TONY BURNETTE) Multiple fractures of ribs of right side (Acute) Colostomy status (Chronic) Anterolisthesis of lumbosacral spine (Chronic) Abd/CT 03/2022 Mild degenerative anterolisthesis L5 upon S1 noted as well as vacuum phenomena within the L5-S1 disc space which was not previously present. 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 Patient aware that there is higher than recommended dose. Makes informed decision, drug contract with [facility] Chronic pain syndrome (Chronic) Due to chronic back pain, 08/2021-drug contract at [facility], V PMS review,11/2021-urine drug screen Using oxycodone for pain mgmt when taking a shower. Essential hypertension (Chronic) Peristomal hernia (Chronic) Had [facility] admit 03/2021 for obstruction. Had ostomy mgmt and hernia improved, but not resolved. GERD (gastroesophageal reflux disease) (Chronic) Cerebral amyloid angiopathy (Chronic) : possible diagnosis re:brain MRI/ followed by Neuro [facility] Dr.Anthony Avalos Urethral caruncle (Chronic) dx by Obgyn Gout (Chronic) Rectovaginal fistula (Chronic) Anemia of chronic disease (Chronic) Constipation by delayed colonic transit (Chronic) Urinary retention with incomplete bladder emptying (Chronic) Adrenal insufficiency (Chronic) Iatrogenic secondary to chronic steroid use, on low-dose chronic steroid Primary osteoarthritis of left knee (Chronic 07/30/15) PMR (polymyalgia rheumatica) (Chronic 01/15/16) DX 2016 : /curtis resp. to Prednisone Osteoporosis (Chronic) Bone density scan : 11/2021, managed by Rheum [facility], on prolia Obstructive sleep apnea syndrome (Chronic) after closed head injury pt not using CPAP machine Non-alcoholic fatty liver disease (Chronic) persistent elevated AST echo. 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 Medical History Brain bleed 05/2021 tx at [facility], intra parenchymal left-sided hemorrhage-treated through [facility] Colon polyp (06/28/18) adenoma colon pollyps-1997; none on subsequent colonoscopies; most recent c- scope in 2005 was normal 2018-adenoma Compression fracture of body of thoracic vertebra Excessive sweating (06/02/16) daytime sweating if >74 degrees/ fatigue normal cbc, spep,echocardiogram,sed.rate,cmp Insomnia Palliative care patient Perforation of colon as colonoscopy complication Raynaud's disease T12 burst fracture Tuberculosis Surgical History Colonoscopy - [facility] ADENOMA COLON POLYPS 1997, NONE ON MULTIPLE SUBSEQUENT COLONOSCOPIES, MOST RECENT C-SCOPE 2005 WAS NORMAL, 2018 - cecal polyp, diverticulosis EGD - [facility] (~2003) MILD EROSIVE ESOPHAGITIS, NO PINON'S ON BIOPSY H/O dilation and curettage H/O partial resection of colon Sigmoid colon resection 06/28/18 Laparoscopic, Ovarian Cystectomy B/L S/P appendectomy S/P BSO (bilateral salpingo-oophorectomy) S/P hysterectomy S/P kyphoplasty S/P rotator cuff repair S/P tonsillectomy Family History Mother , in her 80s from pneumonia Heart disease Pneumonia Father , from complications of prostate surgery in his 80s Stroke Personal history of malignant neoplasm Heart disease Brother , aged 68 Alcohol abuse Cirrhosis with alcoholism Grandfather Essential hypertension Heart disease Grandmother Personal history of malignant neoplasm Stroke Grandmother Personal history of malignant neoplasm Son , from his drinking/SA; her oldest child Alcohol abuse Social History Smoking/Tobacco Use Status: Former Tobacco Use Smoking risk assessment performed?: Yes Alcohol Intake: current Alcohol Intake frequency: holidays/special occasions only Alcohol type: hard liquor Drug use: Never Substance use type: does not use Household members: other 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 History History 6 Para 3 Hx # Term Pregnancies 3 Multiple births Hx # Pregnancies Ectopic pregnancies AB induced Hx Number of Living Children 3 AB spontaneous Exam Const General: cooperative and no acute distress HENMT Mouth: moist mucous membranes Eyes Conjunctivae: normal conjunctivae Sclera: normal sclerae Neck Neck: trachea midline and supple Resp Auscultation: clear to auscultation bilaterally, no rales, no rhonchi and no wheezes Cardio Rate: regular rate and not tachycardic Rhythm: regular rhythm GI Palpation: soft, not firm, no guarding, no masses, not rigid and tender (Tender adjacent to the ostomy) Other: Ostomy intact with normal fecal output, no bleeding Mild skin irritation from adhesive around ostomy small 1 cm shallow skin immediately adjacent to ostomy, no bleeding Skin General skin exam: no rashes or lesions noted Neuro General: patient alert, patient awake and tone normal Extrem General: no edema Psych Appearance: grossly normal Mental Status: mental status grossly normal Course Vital Signs Vital signs: Vital Signs Temperature 36.7 C 06/11/23 19:21 Pulse 90 06/11/23 19:21 Respiratory Rate 16 06/11/23 19:21 Blood Pressure 181/53 H 06/11/23 19:21 Pulse Oximetry 98 06/11/23 19:21 Temperature 36.7 C 06/11/23 19:21 Temperature Source Oral 06/11/23 19:21 Pulse 90 06/11/23 19:21 Respiratory Rate 16 06/11/23 19:21 Respiratory Effort Normal 06/11/23 19:26 Blood Pressure 181/53 H 06/11/23 19:21 Blood Pressure Position Sitting 06/11/23 19:21 Pulse Oximetry 98 06/11/23 19:21 Oxygen Delivery Method Room Air 06/11/23 19:21 Oxygen Flow Rate 0 06/11/23 19:21 Pain Level 9 06/11/23 19:21
--- NOTE | 2023-06-11 20:04 | W.EDPROG ---
Date of service: 06/11/23 Time of Service: 20:04 Medical Decision Making I received signout at bedside on this normothermic and not tachycardic 82-year-old female with remote sigmoidectomy at [facility] in June 2019 with colostomy for colonic perforation during colonoscopy now in the emergency department now in the setting of concern for small ulcerated area on the left lateral side of her stoma. She received her ostomy care at [facility] and has an appointment with them next month. The area does not appear infected. Patient has been dressing it with Mepilex. She did have some deeper abdominal discomfort and is pending a dry CT scan given anaphylaxis to contrast to assess for any deeper space infection. Anticipate that if CT scan is reassuring patient will be discharged home. Will reassess following CT scan. 9:27 PM Reassuring normal lipase. CBC shows mild normocytic anemia similar to prior. No thrombocytopenia. No leukocytosis. Comprehensive metabolic panel showing very mild hyperglycemia but no anion gap and normal bicarbonate??not consistent with DKA. Reassuring LFTs similar to prior. No JAD. No acute electrolyte abnormalities. CT report showing left-sided colostomy with large parastomal bowel and mesenteric herniation, Soham pouch with satisfactory noncontrast appearance. Patient reports she is not sure whether or not there is been any significant change in output. She routinely does have parastomal bowel however the mesenteric herniation is new. We will reach out to general surgery. 950 PM I spoke with Dr. Pitts from general surgery. He had reviewed the scan and felt that it was similar in appearance to other scans. Patient is adamant about wanting to go home. Will discharge with empiric trial of expectant outpatient management. Will advise patient to come in if she has any significant increases or decreases in her ostomy output or any persistent bleeding. Otherwise we will advised follow-up with ostomy team at [facility]. Sign Out Sign Out Data: Sign Out Comment: Patient with abdominal pain and concern for bloody output from ostomy. Plan to obtain CT of the abdomen pelvis to assess for acute surgical process. Labs and CT pending at time of signout. Plan to reassess patient for disposition pending diagnostics and reassessment. Last updated by Gio Johnson MD at 06/11/23 20:08 Discharge Plan Disposition Patient Disposition: Home Discharge Details Clinical Impression: Encounter for attention to colostomy Primary Care Provider: Keyana Olivas ED Provider: Shine Ríos Home Meds and New Rx's Prescriptions: Continued pyridoxine (vitamin B6) 100 mg tablet 100 mg PO DAILY magnesium chloride 64 mg magnesium tablet 64 mg PO .1 x2 daily polyethylene glycol 3350 [Miralax] 17 gram/dose powder 17 g PO DAILY PRN donepezil 5 mg tablet 5 mg PO QHS Qty: 30 1RF lidocaine 5 % adhesive patch,medicated 1 patch topical DAILY Qty: 15 0RF Rx Instructions: leave on most painful area for up to 12 hrs multivitamin [One Daily Multivitamin] tablet 1 tab PO BID cyanocobalamin (vitamin B-12) 500 mcg tablet 500 mcg PO DAILY duloxetine 40 mg capsule,delayed release(DR/EC) 40 mg PO DAILY Qty: 90 1RF Patient Comments: not taking methylprednisolone 4 mg tablet 2 mg PO DAILY Qty: 15 0RF ferrous gluconate 324 mg (38 mg iron) tablet 324 mg PO TID Qty: 90 6RF levothyroxine 100 mcg tablet 100 mcg PO DAILY Qty: 90 3RF Patient Comments: not taking the way /i should oxycodone 5 mg tablet 5 mg PO DAILY MDD 5mg PRN (Reason: severe pain (scale score 7-10)) Qty: 35 0RF zolpidem 6.25 mg tablet,ext release multiphase 12.5 mg PO QHS Qty: 60 3RF Hold Instructions: no longer effective Discharge Instructions Additional Instructions: You are seen in the emergency department for your abdominal pain. Your CAT scan showed no acute changes. Please return to the emergency department if you develop any significant increase or decrease in your ostomy output or if you develop any fevers. Please also return if you have any persistent bleeding that does not stop. Otherwise please follow-up with your ostomy team as previously scheduled next month. For your pain please take medications as follows: 1. Take acetaminophen (Tylenol), 1,000 mg (two 500 mg tabs) every 6 hours
[2023-06-11 20:18] LABS: Abs Immature Grans 0.04 10^3/uL (0.0-0.06); Absolute Basophil Count 0.03 10^3/uL (0.0-0.2); Absolute Lymphocyte Count 1.34 10^3/uL (1.2-3.4); Absolute Neutrophil Count 5.79 10^3/uL (1.2-6.7); Basophils % 0.4; Eosinophils % 1.2; HCT 33.6 % (36.0-46.0); HGB 10.4 g/dL (11.2-15.7); Immature Grans % 0.5; Lymphocytes % 16.3; MCH 28.1 pg (27.0-33.0); MCV 91 fL (80-95); MPV 10.2 fL (8.0-11.0); Neutrophils % 70.6; Platelet Count 275 10^3/uL (130-400); RDW 13.2 % (11.7-14.6); RDW-SD 43.8 fL
[2023-06-11 20:28] LABS: Lipase 24 U/L (16-77)
[2023-06-11 20:34] LABS: ALT 14 U/L (14-59); AST 14 U/L (15-37); Albumin 3.3 g/dL (3.4-5.0); Alkaline Phosphatase 96 U/L (46-116); BUN 13 mg/dL (7-18); Bilirubin, Total 0.2 mg/dL (0.2-1.0); CREATININE 0.9 mg/dL (0.55-1.02); Calcium 9.7 mg/dL (8.5-10.1); Chloride 105 mmol/L (98-107); Estimated GFR 64.23 (mL/min/1.73m2); Glucose 127 mg/dL (74-106); Sodium 141 mmol/L (136-145); Total Protein 7.5 g/dL (6.4-8.2)
[2023-06-11] MEDS: ACETAMINOPHEN 1,000 MG/100 ML BTL 400 MG IVPB (21:20)
--- NOTE | 2023-06-11 21:28 | DI.VRAD_ITS ---
PROCEDURE INFORMATION: Exam: CT Abdomen And Pelvis Without Contrast Exam date and time: 06/11/2023 20:32 Age: 82 years old Clinical indication: Abdominal pain; Acute; Patient HX: Bleeding from ostomy TECHNIQUE: Imaging protocol: Computed tomography of the abdomen and pelvis without contrast. Radiation optimization: All CT scans at this facility use at least one of these dose optimization techniques: automated exposure control; mA and/or kV adjustment per patient size (includes targeted exams where dose is matched to clinical indication); or iterative reconstruction. COMPARISON: CT CHEST/ABD/PEL WO 04/17/2023 14:22 FINDINGS: Lungs: Pulmonary cysts and or emphysema again seen. Liver: Micronodular liver consistent with cirrhosis. No hepatic masses on noncontrast imaging. Gallbladder and bile ducts: Dependent sludge or noncalcified stones in the gallbladder. No significant biliary dilation or radiopaque stones in the biliary tree. Pancreas: No gross pathology in the pancreas on noncontrast imaging. Spleen: No splenomegaly or focal lesions. Adrenal glands: No mass. Kidneys and ureters: Benign-appearing renal cysts and probable cysts. Stomach and bowel: Left-sided colostomy with large peristomal bowel and mesenteric herniation, Martell pouch with satisfactory appearance. No significant enteritis or colitis identified on noncontrast imaging. No obstruction. Appendix: No evidence of appendicitis. Intraperitoneal space: No free air. No significant fluid collection. Vasculature: Atherosclerosis. No aortic aneurysm. Lymph nodes: No significantly enlarged lymph nodes. Urinary bladder: Mild urinary bladder wall thickening and slight trabeculation suggest chronic neurogenic and or outlet obstructive changes similar to prior. Reproductive: Hysterectomy. Bones/joints: Nonacute appearing right rib fractures. X Chronic bony changes with no acute fracture. Soft tissues: Mild dependent subcutaneous edema. Diastasis recti. Multiple tiny ventral hernias containing fat. IMPRESSION: 1. Left-sided colostomy with large peristomal bowel and mesenteric herniation, Martell pouch with satisfactory noncontrast appearance. 2. Incidental findings as described. Dictated and Authenticated by: Shirlene Gonzalez MD. Ordering:JAMESON Powers MD
== END 2023-06-11 22:10 | disposition home or self-care (01) ==
PROVIDERS: Student in an Organized Health Care Education/Training Program; Emergency Provider Emergency Medicine; PCP Family Medicine
DX: R10.9 Unspecified abdominal pain (principal); K94.09 Other complications of colostomy; L08.9 Local infection of the skin and subcutaneous tissue, unspecified
CPT/HCPCS: 00123; 36415; 80053; 83690; 96365; 99284; 74176; 85025; 99283; J0131

== ENCOUNTER → 2023-07-16 13:27 | Outpatient (BNVA) | payer MEDICARE, SELFPAY | PROVIDERS: PCP Family Medicine; Referring Provider Family Medicine; Visit Provider Podiatrist | DX: M79.674 Pain in right toe(s) (principal); M79.675 Pain in left toe(s); L60.3 Nail dystrophy; L84 Corns and callosities; R09.89 Other specified symptoms and signs involving the circulatory and respiratory systems; R60.0 Localized edema; L65.9 Nonscarring hair loss, unspecified; L85.9 Epidermal thickening, unspecified; M20.11 Hallux valgus (acquired), right foot; M20.12 Hallux valgus (acquired), left foot; I73.00 Raynaud's syndrome without gangrene | CPT/HCPCS: 11056; 11721; 99213 ==

== ENCOUNTER 2023-08-05 10:25 | Inpatient (IN) | payer MEDICARE, SELFPAY ==
[2023-08-05] VITALS (27 sets, daily range): BP systolic 136–198; BP diastolic 56–116; PULSE 51–69; RESP 9–24; TEMP 36.1–37.1; O2SAT 91–99
--- NOTE | 2023-08-05 10:30 | DI.CT_ITS ---
Exam(s) CT HEAD WO EXAM: CT HEAD WO CLINICAL HISTORY: hi, fall. TECHNIQUE: Imaging Protocol: Axial computed tomography images with coronal and sagittal reformatted images were created and reviewed COMPARISON: CT CT HEAD CERVICAL SPINE WO from 04/17/2023 FINDINGS: There are no skull fractures. There is no fluid in the visualized paranasal sinuses. There is no evidence of intracranial hemorrhage, mass effect, or shift of midline structures. There are no extra-axial fluid collections. The ventricles are not enlarged or shifted and there is no blo od within the ventricular system nor within the basal cisterns. Again noted is relatively symmetrical bilateral periventricular hypodensity consistent with chronic s mall vessel disease. No obvious new infarct evident. IMPRESSION: No acute intracranial findings on this noninfused CT scan of the brain. Chronic small-vessel white m atter ischemic changes as described above, unchanged from 04/17/2023. No evidence of intracranial he morrhage and no skull fractures. Called by myself to ER RADIATION DOSE DELIVERED: Total DLP DATA REPOSITORY: All CT scans at this facility are submitted to the National Radiology Data Registry (NRDR) Dose Index Registry (DIR) with the [employer] (ACR). RADIATION OPTIMIZATION: All CT scans at this facility use at least one of these dose optimization te chniques: automated exposure control; mA and/or kV adjustment per patient size (includes targeted exa ms where dose is matched to clinical indication); or iterative reconstruction.
--- NOTE | 2023-08-05 10:38 | DI.CT_ITS ---
Exam(s) CT CHEST/ABD/PEL WO EXAM: CT CHEST/ABD/PEL WO CLINICAL HISTORY: fall, 5 days ago, no output ostomy, pain. TECHNIQUE: Imaging Protocol: Axial computed tomography images with coronal and sagittal reformatted images were created and reviewed CONTRAST MATERIAL: Intravenous: none Oral: None COMPARISON: CT CT ABDOMEN PELVIS WO from 06/11/2023 FINDINGS: CHEST: LUNGS: There are no infiltrates nor pleural effusions. No ominous pulmonary nodules. No pneumothora x. No lung contusion. No findings in the trachea and mainstem bronchi.. MEDIASTINUM: No evidence of sternal fracture or mediastinal hematoma. No hilar nor mediastinal adeno sai. Visualized thyroid unremarkable. CARDIAC: Heart size is normal. There is no pericardial effusion.Coronary artery calcification noted. Thoracic aorta exhibits normal diameter. Heavy calcification is noted in the mitral valve. No sig nificant atrial enlargement. OSSEOUS: There are subacute appearing nondisplaced fractures of the right 6, 7th, and 8th ribs. No l eft rib fractures.. ABDOMEN: There is no ascites. GI: No evidence of mesenteric nor bowel wall hematoma. Rectum is oversewn and has been prior colecto my. There is a left-sided ostomy with a para ostial hernia containing bowel loops which do not appea r edematous nor obstructed. LIVER: Liver appears mildly enlarged and cirrhotic. No focal hepatic lesions evident on this noninfu sed study. GALLBLADDER/BILIARY: Subtle noncalcified density noted in the gallbladder lumen. No gallbladder wall edema. There are 2 calcifications in the danny hepatis region adjacent to the CBD. CBD is not dila carl. CBD is not dilated. PANCREAS: No evidence of obvious pancreatic mass nor dilatation of the pancreatic duct. SPLEEN: Spleen is not enlarged. No obvious intrasplenic lesions. ADRENALS: There are no significant adrenal masses. KIDNEYS: No calculi nor hydronephrosis. No obvious solid renal masses. There are 2 cysts in the poste rior cortex of the right kidney measuring up to 2.5 cm. These do not require further workup. ABDOMINAL AORTA: Calcified but not enlarged. Common iliac arteries are also calcified but not enlarg ed. LYMPH NODES: There is no retroperitoneal nor para-aortic adenopathy. PELVIS: LYMPH NODES: There is no intrapelvic nor inguinal adenopathy. GI: Appendix is surgically absent prior colectomy. URINARY BLADDER: Urinary bladder wall is uniformly thickened. Probable cystitis chronic cystitis. N o radiopaque calculi. No diverticuli. REPRODUCTIVE: Uterus is surgically absent. There are no abnormal adnexal masses nor free fluid in th e pelvis. OSSEOUS: No significant osseous lesions. No acute pelvic fractures. There is vertebroplasty cement noted in the T12 pedicles and vertebral tammy dy, similar to previous. No other compression fractures evident. Mild degenerative anterolisthesis L5 upon S1. There is relatively preserved there no compression fractures in the lumbar vertebrae. D isc height at this level. There are healing spinous process fractures of L2 and, L3 levels. IMPRESSION: 1. There are subacute appearing nondisplaced fractures of the right 6, 7th, and 8th ribs. There are also partially healed fractures of the posterior spinous process is of L2 and L3. There is also a hi gh grade compression fracture of T12 with vertebroplasty cement evident in the posterior aspect of th e T12 vertebral body and the bilateral pedicles. 2. Lungs are clear. Also no pleural effusions nor pneumothorax. 3. Prior colectomy and left-sided ostomy with para ostial hernia containing small bowel loops without evidence of bowel obstruction. Previous hysterectomy. No abnormal pelvic masses nor free fluid. Called by myself to ER provider. RADIATION DOSE DELIVERED: Total DLP DATA REPOSITORY: All CT scans at this facility are submitted to the National Radiology Data Registry (NRDR) Dose Index Registry (DIR) with the [employer] (ACR). RADIATION OPTIMIZATION: All CT scans at this facility use at least one of these dose optimization te chniques: automated exposure control; mA and/or kV adjustment per patient size (includes targeted exa ms where dose is matched to clinical indication); or iterative reconstruction.
[2023-08-05] MEDS: Normal Saline 500 ML IV (10:55)
[2023-08-05] MEDS: ACETAMINOPHEN 1,000 MG/100 ML BTL 400 MG IVPB (10:55)
[2023-08-05 10:59] LABS: Abs Immature Grans 0.03 10^3/uL (0.0-0.06); Absolute Basophil Count 0.04 10^3/uL (0.0-0.2); Absolute Lymphocyte Count 1.16 10^3/uL (1.2-3.4); Absolute Monocyte Count 0.94 10^3/uL (0.1-0.8); Absolute Neutrophil Count 4.41 10^3/uL (1.2-6.7); Basophils % 0.6; Eosinophils % 1.5; HCT 33.5 % (36.0-46.0); HGB 10.3 g/dL (11.2-15.7); Immature Grans % 0.4; Lymphocytes % 17.4; MCH 26.5 pg (27.0-33.0); MCHC 30.7 % (32.0-36.0); MCV 86 fL (80-95); MPV 10.3 fL (8.0-11.0); Monocytes % 14.1; Platelet Count 240 10^3/uL (130-400); RBC 3.89 10^6/uL (3.93-5.22); RDW 13.1 % (11.7-14.6); WBC 6.68 10^3/uL (4.4-10.8)
[2023-08-05 11:19] LABS: ALT 10 U/L (14-59); AST 19 U/L (15-37); Alkaline Phosphatase 77 U/L (46-116); Anion Gap 9.6 mmol/L (3-11); BUN 10 mg/dL (7-18); Bilirubin, Total 0.4 mg/dL (0.2-1.0); CO2 27.4 mmol/L (21.0-32.0); Calcium 9.5 mg/dL (8.5-10.1); Chloride 102 mmol/L (98-107); Creatine Kinase 40 U/L (26-192); Estimated GFR 56.25 (mL/min/1.73m2); Glucose 105 mg/dL (74-106); Lipase 22 U/L (16-77); Potassium 3.4 mmol/L (3.5-5.1); Sodium 139 mmol/L (136-145); Total Protein 7.1 g/dL (6.4-8.2)
[2023-08-05 11:39] LABS: Bilirubin Negative (Negative); Blood Small (Negative); Clarity Cloudy (Clear); Glucose Negative (Negative); Ketones Trace mg/dL (Negative); Leukocyte Esterase Large (Negative); Nitrite Negative (Negative); Specific Gravity 1.015 (1.005-1.025); Urobilinogen 0.2 mg/dL (Up to 0.2)
[2023-08-05 11:44] LABS: C & S Indicated? Yes; WBC >50 HPF (0-5)
--- NOTE | 2023-08-05 11:55 | W.ED.GENAD ---
HPI General Date/Time Provider Initiated Documentation: 08/05/23 10:36. HPI Narrative: 83-year-old female presents with report of fall agitation, weakness, falls over the course of the past month, fall occurred last week. Denies any chest pain or shortness of breath. Has been states that she has had intermittent episodes of confusion in the past but she has been very agitated for her in the past month, worse this week. She did have a fall, she is been losing her balance frequently at home, this is not new per . He does not feel he can care for her any longer. He states she has been very verbally abusive to him. Patient states she hit her head, she denies any pain. She is complaining of pain in her entire thorax and lower pelvic region. Denies any nausea or vomiting. Denies any chest pain or shortness of breath. Denies history of coagulopathy. Related Data Home Medications Medication Instructions Recorded Confirmed polyethylene glycol 3350 17 17 g PO DAILY PRN 06/05/21 08/07/23 gram/dose oral powder (Miralax) methylprednisolone 4 mg tablet 2 mg (1/2 x 4 mg) PO DAILY #15 tabs 12/23/22 08/07/23 levothyroxine 100 mcg tablet 100 mcg PO DAILY #90 tabs 04/20/23 08/07/23 trazodone 100 mg tablet 100 mg PO QHS sleep #30 tabs 07/01/23 08/07/23 duloxetine 30 mg capsule,delayed 30 mg PO DAILY #30 caps 07/07/23 08/07/23 release cyclobenzaprine 5 mg tablet 5 mg PO TID PRN muscle spasm #15 07/23/23 08/07/23 tabs naloxone 4 mg/actuation nasal 4 mg intranasal Q3M PRN opioid 07/23/23 08/07/23 spray (Narcan) overdose #2 ea oxycodone 5 mg tablet 5 mg PO BID PRN severe pain (scale 07/23/23 08/07/23 score 7-10) #60 tabs sennosides 8.6 mg tablet (senna) 8.6 mg PO BID PRN constipation #30 07/23/23 08/07/23 tabs duloxetine 20 mg capsule,delayed 40 mg PO ONCE 08/07/23 08/07/23 release fentanyl 12 mcg/hr transdermal 1 patch transdermal Q72H 08/07/23 08/07/23 patch ferrous gluconate 324 mg (38 mg 324 mg PO ONCE 08/07/23 08/07/23 iron) tablet Previous Rx's Medication Instructions Recorded methylprednisolone 4 mg tablet 2 mg (1/2 x 4 mg) PO DAILY #15 tabs 12/23/22 levothyroxine 100 mcg tablet 100 mcg PO DAILY #90 tabs 04/20/23 trazodone 100 mg tablet 100 mg PO QHS sleep #30 tabs 07/01/23 duloxetine 30 mg capsule,delayed 30 mg PO DAILY #30 caps 07/07/23 release cyclobenzaprine 5 mg tablet 5 mg PO TID PRN muscle spasm #15 07/23/23 tabs naloxone 4 mg/actuation nasal 4 mg intranasal Q3M PRN opioid 07/23/23 spray (Narcan) overdose #2 ea oxycodone 5 mg tablet 5 mg PO BID PRN severe pain (scale 07/23/23 score 7-10) #60 tabs sennosides 8.6 mg tablet (senna) 8.6 mg PO BID PRN constipation #30 07/23/23 tabs Allergies Allergy/AdvReac Type Severity Reaction Status Date / Time banana Allergy Intermediate Other (See Verified 07/16/23 13:42 Comment) cucumber Allergy Intermediate Other (See Verified 07/16/23 13:42 Comment) Iodinated Contrast Media Allergy Intermediate Anaphylaxis Unverified 07/16/23 13:42 chloramphenicol AdvReac Severe KIDNEY Verified 07/16/23 13:42 FAILURE tetracycline AdvReac Severe KIDNEY Verified 07/16/23 13:42 FAILURE melon AdvReac Intermediate Cantaloupe-Abd Verified 07/16/23 13:42 pain, diarrhea ADHESIVE TAPE Allergy Intermediate takes skin Uncoded 07/16/23 13:42 off SUTURE MATERIAL Allergy Intermediate Purluent Uncoded 07/16/23 13:42 Drainage General Stated Complaint: GenMedical JOSHUA: 3 Course Vital Signs Vital signs: Vital Signs Temperature 36.6 C 08/05/23 10:25 Pulse 68 08/05/23 10:25 Respiratory Rate 16 08/05/23 10:25 Blood Pressure 198/71 H 08/05/23 10:25 Pulse Oximetry 96 08/05/23 10:25 Temperature 36.6 C 08/05/23 10:25 Temperature Source Oral 08/05/23 10:25 Pulse 68 08/05/23 10:25 Respiratory Rate 16 08/05/23 10:56 Respiratory Effort Normal 08/05/23 10:56 Respiratory Depth Normal 08/05/23 10:56 Respiratory Pattern Normal 08/05/23 10:56 Blood Pressure 198/71 H 08/05/23 10:25 Blood Pressure Position Supine 08/05/23 10:25 Pulse Oximetry 96 08/05/23 10:25 Oxygen Delivery Method Room Air 08/05/23 10:25 Oxygen Flow Rate 0 08/05/23 10:25 Pain Level 9 08/05/23 10:25 Lab/Test Results Lab/Test Results: 08/05/23 11:20 Urine - Reflex from Ua Urine Culture - Pending Laboratory Tests Range/Units 08/05/23 08/05/23 10:45 11:20 WBC (4.4-10.8) 10^3/uL 6.68 RBC (3.93-5.22) 10^6/uL 3.89 L Hgb (11.2-15.7) g/dL 10.3 L Hct (36.0-46.0) % 33.5 L MCV (80-95) fL 86 MCH (27.0-33.0) pg 26.5 L MCHC (32.0-36.0) % 30.7 L RDW (11.7-14.6) % 13.1 Plt Count (130-400) 10^3/uL 240 MPV (8.0-11.0) fL 10.3 Immature Gran % 0.4 Neutrophils % 66.0 Lymphocytes % 17.4 Monocytes % 14.1 Eosinophils % 1.5 Basophils % 0.6 Nucleated RBC % (0.0-0.3) % 0.0 Absolute Neutrophils (1.2-6.7) 10^3/uL 4.41 Absolute Lymphocytes (1.2-3.4) 10^3/uL 1.16 L Absolute Monocytes (0.1-0.8) 10^3/uL 0.94 H Absolute Eosinophils (0.0-0.7) 10^3/uL 0.10 Absolute Basophils (0.0-0.2) 10^3/uL 0.04 Sodium (136-145) mmol/L 139 Potassium (3.5-5.1) mmol/L 3.4 L Chloride (98-107) mmol/L 102 Carbon Dioxide (21.0-32.0) mmol/L 27.4 Anion Gap (3-11) mmol/L 9.6 BUN (7-18) mg/dL 10 Creatinine (0.55-1.02) mg/dL 1.0 Est GFR (CKD-EPI 2020) (mL/min/1.73m2) 56.25 Glucose (74-106) mg/dL 105 Calcium (8.5-10.1) mg/dL 9.5 Total Bilirubin (0.2-1.0) mg/dL 0.4 AST (15-37) U/L 19 ALT (14-59) U/L 10 L Alkaline Phosphatase (46-116) U/L 77 Creatine Kinase (26-192) U/L 40 Total Protein (6.4-8.2) g/dL 7.1 Albumin (3.4-5.0) g/dL 3.0 L Lipase (16-77) U/L 22 Urine Color (Yellow) Yellow Urine Clarity (Clear) Cloudy Urine pH (5-8) 6.0 Ur Specific [place] (1.005-1.025) 1.015 Urine Protein (Negative) mg/dL 30 H Urine Ketones (Negative) mg/dL Trace H Urine Blood (Negative) Small H Urine Nitrite (Negative) Negative Urine Bilirubin (Negative) Negative Urine Urobilinogen (Up to 0.2) mg/dL 0.2 Ur Leukocyte Esterase (Negative) Large H Urine RBC Not Applicable Urine WBC (0-5) HPF >50 H Ur Epithelial Cells Not Applicable Urine Crystals Not Applicable Urine Bacteria Not Applicable Urine Mucus Not Applicable Ur Culture Indicated? Yes Urine Glucose (Negative) mg/dL Negative Medical Decision Making 83-year-old female presenting with report of fall 3 days ago, agitation, and decreased ostomy output Evidence of urinary tract infection on urinalysis Labs stable for patient No clinical signs or symptoms consistent with sepsis CT head does not show evidence of acute abnormality CT chest abdomen pelvis shows evidence of 4 subacute rib fractures and L1-L2 fracture Patient is alert and oriented x 2, has been reports intermittent dementia like symptoms although there are no formal diagnosis has been made, it sounds like the symptoms have been present for the past several months No visible sign of trauma on assessment, pupils equal round reactive to light and accommodation, no visible obvious signs of trauma, lungs clear to auscultation, no obvious deformity, no CVA tenderness, no abdominal tenderness appreciated on exam, ostomy in place Patient will need admission to the hospital secondary to weakness, confusion, UTI Case discussed with Dr. Post, agreeable to admission at this time Quality:[facility] Health Related Social Needs: Health related social needs risk of homeless, transpo insecurity, personal safety PFSH All Active Problems (Updated 08/05/23 @ 14:01 by Jonathan Post MD) Infectious encephalopathy (Acute) UTI (urinary tract infection) (Acute) Colostomy in place (Chronic) Left upper limb pain (Acute) Neck stiffness (Acute) Back pain (Acute) Bilateral leg and foot pain (Acute) Callosity (Acute) Nail dystrophy (Acute) Toe pain, left (Acute) Toe pain, right (Acute) Multiple fractures of ribs of right side (Acute) Colostomy status (Chronic) Anterolisthesis of lumbosacral spine (Chronic) Abd/CT 03/2022 Mild degenerative anterolisthesis L5 upon S1 noted as well as vacuum phenomena within the L5-S1 disc space which was not previously present. 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 Patient aware that there is higher than recommended dose. Makes informed decision, drug contract with [facility] Chronic pain syndrome (Chronic) Due to chronic back pain, 08/2021-drug contract at [facility], V PMS review,11/2021-urine drug screen Using oxycodone for pain mgmt when taking a shower. Essential hypertension (Chronic) Peristomal hernia (Chronic) Had [facility] admit 03/2021 for obstruction. Had ostomy mgmt and hernia improved, but not resolved. GERD (gastroesophageal reflux disease) (Chronic) Cerebral amyloid angiopathy (Chronic) : possible diagnosis re:brain MRI/ followed by Neuro [facility] Dr.Anthony Avalos Urethral caruncle (Chronic) dx by Obgyn Gout (Chronic) Rectovaginal fistula (Chronic) Anemia of chronic disease (Chronic) Constipation by delayed colonic transit (Chronic) Urinary retention with incomplete bladder emptying (Chronic) Adrenal insufficiency (Chronic) Iatrogenic secondary to chronic steroid use, on low-dose chronic steroid Primary osteoarthritis of left knee (Chronic 07/30/15) PMR (polymyalgia rheumatica) (Chronic 01/15/16) DX 2016 : /curtis resp. to Prednisone Osteoporosis (Chronic) Bone density scan : 11/2021, managed by Rheum [facility] [place], on prolia Obstructive sleep apnea syndrome (Chronic) after closed head injury pt not using CPAP machine Non-alcoholic fatty liver disease (Chronic) persistent elevated AST echo. 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 Medical History Brain bleed 05/2021 tx at [facility], intra parenchymal left-sided hemorrhage-treated through [facility] T12 burst fracture Compression fracture of body of thoracic vertebra Palliative care patient Perforation of colon as colonoscopy complication Tuberculosis Insomnia Raynaud's disease Excessive sweating (06/02/16) daytime sweating if >74 degrees/ fatigue normal cbc, spep,echocardiogram,sed.rate,cmp Colon polyp (06/28/18) adenoma colon pollyps-1997; none on subsequent colonoscopies; most recent c-scope in 2005 was normal 2017-adenoma Surgical History S/P rotator cuff repair S/P BSO (bilateral salpingo-oophorectomy) S/P appendectomy S/P hysterectomy S/P kyphoplasty H/O partial resection of colon Sigmoid colon resection 06/28/18 S/P tonsillectomy H/O dilation and curettage Laparoscopic, Ovarian Cystectomy B/L EGD - [facility] (~2003) MILD EROSIVE ESOPHAGITIS, NO PINON'S ON BIOPSY Colonoscopy - [facility] ADENOMA COLON POLYPS 1997, NONE ON MULTIPLE SUBSEQUENT COLONOSCOPIES, MOST RECENT C-SCOPE 2005 WAS NORMAL, 2018 - cecal polyp, diverticulosis Family History Mother , in her 80s from pneumonia Heart disease Pneumonia Father , from complications of prostate surgery in his 80s Stroke Personal history of malignant neoplasm Heart disease Brother , aged 68 Alcohol abuse Cirrhosis with alcoholism Grandfather Essential hypertension Heart disease Grandmother Personal history of malignant neoplasm Stroke Grandmother Personal history of malignant neoplasm Son , from his drinking/SA; her oldest child Alcohol abuse Social History Smoking/Tobacco Use Status: Former Tobacco Use Smoking risk assessment performed?: Yes Alcohol Intake: current Alcohol Intake frequency: holidays/special occasions only Alcohol type: hard liquor Drug use: Never Substance use type: does not use Counseling given: No Household members: other Details: 2 Housing: house 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 Discharge Plan Discharge Details Chief Complaint: GenMedical Admit Date/Time: 08/05/23 13:56 Admit Provider: Jonathan Post Attending Provider: Jonathan Post Primary Care Provider: Keyana Olivas ED Provider: Dolores Rodriguez Discharge Data Discharge Date/Time-TO BE ENTERED AT DEPARTURE: 08/05/23 15:09
[2023-08-05] MEDS: cefTRIAXone 1 GM/50 ML BAG IVPB (12:22)
[2023-08-05] MEDS: Potassium Chloride 20 MEQ TABCR PO (12:22)
--- NOTE | 2023-08-05 13:57 | HPE_ITS ---
Date of service: 08/05/23 Time of Service: 13:57 Assessment and Plan Assessment and plan (1) UTI (urinary tract infection): Status: Acute Assessment and plan: - Patient did not meet sepsis criteria on admission and she has been afebrile, heart rate has been under 90, respiratory rate under 20, and WBCs under 12 -However, her UA was highly suggestive of urinary tract infection with large leuk esterase, greater than 50 WBCs -Started on ceftriaxone in the emergency department which we will continue -Follow-up urine culture results (2) Infectious encephalopathy: Status: Acute Assessment and plan: - Secondary to urinary tract infection as noted above -However, given description of the patient's behaviors by her , does appear that she may have some undiagnosed baseline dementia -Continue to monitor mental status (3) Chronic pain syndrome: Status: Chronic Assessment and plan: - Continue home pain regimen (4) Essential hypertension: Status: Chronic Assessment and plan: - Continue home regimen (5) GERD (gastroesophageal reflux disease): Status: Chronic Assessment and plan: - Continue home regimen (6) Colostomy in place: Status: Chronic Assessment and plan: - Appears well-managed by patient, no acute concerns (7) Adrenal insufficiency: Status: Chronic Assessment and plan: - History of, currently on 2 mg daily of methylprednisolone which will be continued (8) Memory impairment: Status: Chronic History of Present Illness History of Present Illness Chief Complaint: Agitation, weakness, falls N arrative: 83-year-old female with a past medical history of adrenal insufficiency, right lower back pain, chronic, hypertension, GERD, hypothyroidism, RIZWAN not using CPAP and anemia of chronic disease who presents to the emergency department with agitation, weakness and falls. Patient is highly agitated, and patient's states that she has been a little more confused over the last month, however over the last week she has had increased frequency and falls, appears more weak and has been more agitated. He denies that she has fallen and hit her head or loss any consciousness. Denies any fevers, cough, chest pain, shortness of breath, nausea vomiting or diarrhea. In the emergency department patient was noted as having normal vital signs, normal CBC and CMP though the patient did have a UA that was highly suggestive of urinary tract infection with, large leuk esterase, greater than 50 WBCs for which she was given ceftriaxone. Patient also had head CT, CT of chest abdomen pelvis which did not show any acute findings. Given patient's ongoing agitation/confusion, emergency room PA paged hospitalist for admission for patient with a urinary tract infection and infectious encephalopathy. Review of Systems All systems reviewed & are unremarkable except as noted in HPI and below PFSH All Active Problems (Updated 08/05/23 @ 14:01 by Jonathan Post MD) Infectious encephalopathy (Acute) UTI (urinary tract infection) (Acute) Colostomy in place (Chronic) Left upper limb pain (Acute) Neck stiffness (Acute) Back pain (Acute) Bilateral leg and foot pain (Acute) Callosity (Acute) Nail dystrophy (Acute) Toe pain, left (Acute) Toe pain, right (Acute) Multiple fractures of ribs of right side (Acute) Colostomy status (Chronic) Anterolisthesis of lumbosacral spine (Chronic) Abd/CT 03/2022 Mild degenerative anterolisthesis L5 upon S1 noted as well as vacuum phenomena within the L5-S1 disc space which was not previously present. 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 Patient aware that there is higher than recommended dose. Makes informed decision, drug contract with [facility] Chronic pain syndrome (Chronic) Due to chronic back pain, 08/2021-drug contract at [facility], PMS review,11/2021-urine drug screen Using oxycodone for pain mgmt when taking a shower. Essential hypertension (Chronic) Peristomal hernia (Chronic) Had [facility] admit 03/2021 for obstruction. Had ostomy mgmt and hernia improved, but not resolved. GERD (gastroesophageal reflux disease) (Chronic) Cerebral amyloid angiopathy (Chronic) : possible diagnosis re:brain MRI/ followed by Neuro [facility] Dr.Anthony Avalos Urethral caruncle (Chronic) dx by Obgyn Gout (Chronic) Rectovaginal fistula (Chronic) Anemia of chronic disease (Chronic) Constipation by delayed colonic transit (Chronic) Urinary retention with incomplete bladder emptying (Chronic) Adrenal insufficiency (Chronic) Iatrogenic secondary to chronic steroid use, on low-dose chronic steroid Primary osteoarthritis of left knee (Chronic 07/30/15) PMR (polymyalgia rheumatica) (Chronic 01/15/16) DX 2016 : /curtis resp. to Prednisone Osteoporosis (Chronic) Bone density scan : 11/2021, managed by Rheum [facility] [place], on prolia Obstructive sleep apnea syndrome (Chronic) after closed head injury pt not using CPAP machine Non-alcoholic fatty liver disease (Chronic) persistent elevated AST echo. 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 Medical History Brain bleed 05/2021 tx at [facility], intra parenchymal left-sided hemorrhage-treated through [facility] T12 burst fracture Compression fracture of body of thoracic vertebra Palliative care patient Perforation of colon as colonoscopy complication Tuberculosis Insomnia Raynaud's disease Excessive sweating (06/02/16) daytime sweating if >74 degrees/ fatigue normal cbc, spep,echocardiogram,sed.rate,cmp Colon polyp (06/28/18) adenoma colon pollyps-1997; none on subsequent colonoscopies; most recent c- scope in 2005 was normal 2017-adenoma Surgical History S/P rotator cuff repair S/P BSO (bilateral salpingo-oophorectomy) S/P appendectomy S/P hysterectomy S/P kyphoplasty H/O partial resection of colon Sigmoid colon resection 06/28/18 S/P tonsillectomy H/O dilation and curettage Laparoscopic, Ovarian Cystectomy B/L EGD - [facility] (~2003) MILD EROSIVE ESOPHAGITIS, NO PINON'S ON BIOPSY Colonoscopy - [facility] ADENOMA COLON POLYPS 1997, NONE ON MULTIPLE SUBSEQUENT COLONOSCOPIES, MOST RECENT C-SCOPE 2005 WAS NORMAL, 2018 - cecal polyp, diverticulosis Family History Mother , in her 80s from pneumonia Heart disease Pneumonia Father , from complications of prostate surgery in his 80s Stroke Personal history of malignant neoplasm Heart disease Brother , aged 68 Alcohol abuse Cirrhosis with alcoholism Grandfather Essential hypertension Heart disease Grandmother Personal history of malignant neoplasm Stroke Grandmother Personal history of malignant neoplasm Son , from his drinking/SA; her oldest child Alcohol abuse Social History Smoking/Tobacco Use Status: Former Tobacco Use Smoking risk assessment performed?: Yes Alcohol Intake: current Alcohol Intake frequency: holidays/special occasions only Alcohol type: hard liquor Drug use: Never Substance use type: does not use Counseling given: No Household members: other Details: 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 Do you feel safe at home: No Do you feel safe in your relationship?: No Additional Social history: DECREASED VISION does not feel safe with History History 2 6 Para 3 Hx # Term Pregnancies 3 Multiple births Hx # Pregnancies Ectopic pregnancies AB induced Hx Number of Living Children 3 AB spontaneous Meds Allergies and Home Medications Allergies Allergy/AdvReac Type Severity Reaction Status Date / Time banana Allergy Intermediate Other (See Verified 07/16/23 13:42 Comment) cucumber Allergy Intermediate Other (See Verified 07/16/23 13:42 Comment) Iodinated Contrast Media Allergy Intermediate Anaphylaxis Unverified 07/16/23 13:42 chloramphenicol AdvReac Severe KIDNEY Verified 07/16/23 13:42 FAILURE tetracycline AdvReac Severe KIDNEY Verified 07/16/23 13:42 FAILURE melon AdvReac Intermediate Cantaloupe-Abd Verified 07/16/23 13:42 pain, diarrhea ADHESIVE TAPE Allergy Intermediate takes skin Uncoded 07/16/23 13:42 off SUTURE MATERIAL Allergy Intermediate Purluent Uncoded 07/16/23 13:42 Drainage Home Medications Medication Instructions Recorded Confirmed Type polyethylene glycol 3350 17 17 g PO DAILY PRN 06/05/21 07/28/23 History gram/dose oral powder (Miralax) methylprednisolone 4 mg tablet 2 mg (1/2 x 4 mg) PO DAILY #15 tabs 12/23/22 07/28/23 Rx levothyroxine 100 mcg tablet 100 mcg PO DAILY #90 tabs 04/20/23 07/28/23 Rx trazodone 100 mg tablet 100 mg PO QHS sleep #30 tabs 07/01/23 07/28/23 Rx duloxetine 30 mg capsule,delayed 30 mg PO DAILY #30 caps 07/07/23 07/28/23 Rx release cyclobenzaprine 5 mg tablet 5 mg PO TID PRN muscle spasm #15 07/23/23 07/28/23 Rx tabs naloxone 4 mg/actuation nasal 4 mg intranasal Q3M PRN opioid 07/23/23 07/28/23 Rx spray (Narcan) overdose #2 ea oxycodone 5 mg tablet 5 mg PO BID PRN severe pain (scale 07/23/23 07/28/23 Rx score 7-10) #60 tabs sennosides 8.6 mg tablet (senna) 8.6 mg PO BID PRN constipation #30 07/23/23 07/28/23 Rx tabs Exam Narrative Exam Narrative: Well-appearing older female laying in bed in no acute distress, awake, alert, oriented to person place and time though still states that she does not want to see her which is out of character for her, heart regular rhythm, lungs clear to auscultation bilaterally, abdomen soft, nontender, nondistended Results Labs 08/05/23 10:45 08/05/23 10:45 Labs: Laboratory Results - last 24 hr 08/05/23 08/05/23 10:45 11:20 WBC 6.68 RBC 3.89 L Hgb 10.3 L Hct 33.5 L MCV 86 MCH 26.5 L MCHC 30.7 L RDW 13.1 Plt Count 240 MPV 10.3 Immature Gran % 0.4 Neutrophils % 66.0 Lymphocytes % 17.4 Monocytes % 14.1 Eosinophils % 1.5 Basophils % 0.6 Nucleated RBC % 0.0 Absolute Neutrophils 4.41 Absolute Lymphocytes 1.16 L Absolute Monocytes 0.94 H Absolute Eosinophils 0.10 Absolute Basophils 0.04 Sodium 139 Potassium 3.4 L Chloride 102 Carbon Dioxide 27.4 Anion Gap 9.6 BUN 10 Creatinine 1.0 Est GFR (CKD-EPI 2020) 56.25 Glucose 105 Calcium 9.5 Total Bilirubin 0.4 AST 19 ALT 10 L Alkaline Phosphatase 77 Creatine Kinase 40 Total Protein 7.1 Albumin 3.0 L Lipase 22 Urine Color Yellow Urine Clarity Cloudy Urine pH 6.0 Ur Specific [place] 1.015 Urine Protein 30 H Urine Ketones Trace H Urine Blood Small H Urine Nitrite Negative Urine Bilirubin Negative Urine Urobilinogen 0.2 Ur Leukocyte Esterase Large H Urine RBC Not Applicable Urine WBC >50 H Ur Epithelial Cells Not Applicable Urine Crystals Not Applicable Urine Bacteria Not Applicable Urine Mucus Not Applicable Ur Culture Indicated? Yes Urine Glucose Negative Last Vital Signs Temp 97.8 F 08/05/23 10:25 Pulse 56 L 08/05/23 13:01 Resp 15 08/05/23 12:54 BP 136/56 L 08/05/23 13:01 Pulse Ox 91 L 08/05/23 13:10 Time Spent Time spent with Patient: >75 minutes Time was spent: preparing to see the patient(eg.review tests), obtaining and/or reviewing separately otained hiistory, ordering medications,tests, procedures, referring, communicating with other health before and after school daycare worker, indepentently interpreting results, counseling the patient and care coordination
--- NOTE | 2023-08-05 15:59 | PHA.REVIEW2 ---
Pharmacy Admission Review Admission Clinical Review Admission Pharmacy Review: (Updated 08/05/23 @ 14:01 by Jonathan Post MD) Infectious encephalopathy (Acute) UTI (urinary tract infection) (Acute) banana Allergy (Intermediate, Verified 07/16/23 13:42) Other (See Comment) cucumber Allergy (Intermediate, Verified 07/16/23 13:42) Other (See Comment) Iodinated Contrast Media Allergy (Intermediate, Unverified 07/16/23 13:42) Anaphylaxis chloramphenicol Adverse Reaction (Severe, Verified 07/16/23 13:42) KIDNEY FAILURE tetracycline Adverse Reaction (Severe, Verified 07/16/23 13:42) KIDNEY FAILURE melon Adverse Reaction (Intermediate, Verified 07/16/23 13:42) Cantaloupe-Abd pain, diarrhea ADHESIVE TAPE Allergy (Intermediate, Uncoded 07/16/23 13:42) takes skin off SUTURE MATERIAL Allergy (Intermediate, Uncoded 07/16/23 13:42) Purluent Drainage Resuscitation Status DNR/DNI Height 5 ft 5 in Weight 85.5 kg Pharmacy Admission Review Renal Dosing Renal Dosing: BUN 10 mg/dL (7-18) 08/05/23 10:45 Creatinine 1.0 mg/dL (0.55-1.02) 08/05/23 10:45 Medications needing adjustments: Reviewed (CrCl 46.84 mL/min) Anticoagulation Anticoagulation: Hgb 10.3 g/dL (11.2-15.7) L 08/05/23 10:45 Hct 33.5 % (36.0-46.0) L 08/05/23 10:45 Plt Count 240 10^3/uL (130-400) 08/05/23 10:45 Creatinine 1.0 mg/dL (0.55-1.02) 08/05/23 10:45 DVT Prophylaxis: Reviewed Medications: Enoxaparin (40mg q24h) Opiate Usage Evaluate Pain Scale/Pains Meds: Reviewed (PRN oxycodone) Scheduled Bowel Reg ordered if on Opiates?: No (PRN miralax/docusate) Relevant Labs Relevant Labs: Sodium 139 mmol/L (136-145) 08/05/23 10:45 Potassium 3.4 mmol/L (3.5-5.1) L 08/05/23 10:45 Chloride 102 mmol/L (98-107) 08/05/23 10:45 Electrolytes, C-Reactive P, ESR: Reviewed (K 3.4, Hgb 10.3, urine analysis positive for: proteins, ketones, blood and WBC.) Cardiac Review Cardiac Review: Blood Pressure 165/69 1524 Blood Pressure 165/69 1523 Blood Pressure 136/56 1301 Blood Pressure 160/64 1254 Blood Pressure 170/116 1101 Blood Pressure 155/74 1045 Blood Pressure 187/71 1031 Blood Pressure 198/71 1030 Blood Pressure 198/71 1025 BP, HR, EF%: Reviewed (HR WNL, BP 165/69) QTc Review QTc: Reviewed (489 from most recent EKG (04/11/23)) IV to PO Switch IV Medications: Reviewed Home Meds Home Med List reviewed: Intervened Relevent Home Meds Not ordered & why?: No orders for duloxetine and levothyroxine. Reached out to provider who plans on putting in orders, just waiting for med rec to officially be completed. Patient recently picked up some fentanyl patches (not on active med list), reached out to provider who stated that per a recent palliative note patient was told to hold off on the patches for now. I called nursing to double check that she does not currently have one on. Current Meds Current Medication Order Review: Reviewed Pharmacy Antibiotic Review Pharmacy Antibiotic Activity: C/S review and Reviewed, no change Comments: Current regimen of ceftriaxone 1g q24h. Urine analysis positive for: proteins, ketones, blood and WBC. Urine cultures pending.
[2023-08-05] MEDS: Enoxaparin 40 MG/0.4 ML SYR SC (18:08)
[2023-08-05] MEDS: oxyCODONE 5 MG TAB PO (18:21)
[2023-08-05] MEDS: Cyclobenzaprine 10 MG TAB 5 MG PO (19:47)
[2023-08-05] MEDS: Normal Saline Flush 10 ML SYR IVP (19:48)
[2023-08-05] MEDS: traZODone 100 MG TAB PO (21:22)
[2023-08-05] MEDS: Acetaminophen 325 MG TAB PO (21:32)
[2023-08-06 03:04] VITALS: BP 159/71; PULSE 58; RESP 16; TEMP 36.1; O2SAT 95
[2023-08-06] MEDS: Acetaminophen 325 MG TAB PO (05:21)
[2023-08-06] MEDS: oxyCODONE 5 MG TAB PO ×2 (05:21→22:15)
[2023-08-06 06:39] LABS: HCT 31.1 % (36.0-46.0); HGB 9.6 g/dL (11.2-15.7); MCH 26.4 pg (27.0-33.0); MCHC 30.9 % (32.0-36.0); MCV 85 fL (80-95); MPV 10.5 fL (8.0-11.0); Platelet Count 221 10^3/uL (130-400); RBC 3.64 10^6/uL (3.93-5.22); RDW 13.1 % (11.7-14.6); RDW-SD 40.9 fL
[2023-08-06 06:56] LABS: Anion Gap 9.7 mmol/L (3-11); BUN 12 mg/dL (7-18); CO2 26.3 mmol/L (21.0-32.0); CREATININE 0.9 mg/dL (0.55-1.02); Calcium 9.2 mg/dL (8.5-10.1); Chloride 104 mmol/L (98-107); Estimated GFR 63.83 (mL/min/1.73m2); Glucose 107 mg/dL (74-106); Magnesium 1.9 mg/dL (1.8-2.4); Potassium 3.8 mmol/L (3.5-5.1); Sodium 140 mmol/L (136-145)
[2023-08-06 07:40] VITALS: BP 155/75; PULSE 52; RESP 17; TEMP 36.2; O2SAT 93
[2023-08-06] MEDS: methylPREDNISolone 4 MG TAB 2 MG PO (08:39)
[2023-08-06] MEDS: Normal Saline Flush 10 ML SYR IVP ×2 (08:40→20:15)
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
--- NOTE | 2023-08-06 09:37 | W.PM.PROGNOT ---
Date of Service Date of service: 08/06/23 Time of Service: 09:37 Assessment and Plan Assessment and plan (1) UTI (urinary tract infection): Status: Acute Assessment and plan: -Patient did not meet sepsis criteria on admission and she has been afebrile, heart rate has been under 90, respiratory rate under 20, and WBCs under 12 -However, her UA was highly suggestive of urinary tract infection with large leuk esterase, greater than 50 WBCs -Started on ceftriaxone in the emergency department which we will continue -Follow-up urine culture results (2) Infectious encephalopathy: Status: Acute Assessment and plan: - Secondary to urinary tract infection as noted above -However, given description of the patient's behaviors by her , does appear that she may have some undiagnosed baseline dementia -appears to have improved as compared to admission -Continue to monitor mental status (3) Chronic pain syndrome: Status: Chronic Assessment and plan: - Continue home pain regimen (4) Essential hypertension: Status: Chronic Assessment and plan: - Continue home regimen (5) GERD (gastroesophageal reflux disease): Status: Chronic Assessment and plan: - Continue home regimen (6) Colostomy in place: Status: Chronic Assessment and plan: - Appears well-managed by patient, no acute concerns (7) Adrenal insufficiency: Status: Chronic Assessment and plan: - History of, currently on 2 mg daily of methylprednisolone which will be continued (8) Memory impairment: Status: Chronic Subjective Subjective Interval history since last seen: Patient states that she feels a little better today. She does remember being somewhat confused yesterday and states she is unsure if she is less confused today. Otherwise she has no other complaints concerns at this Exam Narrative Exam Narrative: Well-appearing older female laying in bed in no acute distress, awake, alert, oriented to person place and time and compared to yesterday she is actually looking forward to seeing her today but does not remember or understand why she did not want to see him yesterday, heart regular rhythm, lungs clear to auscultation bilaterally, abdomen soft, nontender, nondistended Objective Last Vital Signs Temp 97.2 F L 08/06/23 07:40 Pulse 52 L 08/06/23 07:40 Resp 17 08/06/23 07:40 BP 155/75 H 08/06/23 07:40 Pulse Ox 93 08/06/23 07:40 Laboratory Results - last 24 hr 08/05/23 08/05/23 08/06/23 10:45 11:20 06:15 WBC 6.68 4.70 RBC 3.89 L 3.64 L Hgb 10.3 L 9.6 L Hct 33.5 L 31.1 L MCV 86 85 MCH 26.5 L 26.4 L MCHC 30.7 L 30.9 L RDW 13.1 13.1 Plt Count 240 221 MPV 10.3 10.5 Immature Gran % 0.4 Neutrophils % 66.0 Lymphocytes % 17.4 Monocytes % 14.1 Eosinophils % 1.5 Basophils % 0.6 Nucleated RBC % 0.0 Absolute Neutrophils 4.41 Absolute Lymphocytes 1.16 L Absolute Monocytes 0.94 H Absolute Eosinophils 0.10 Absolute Basophils 0.04 Sodium 139 140 Potassium 3.4 L 3.8 Chloride 102 104 Carbon Dioxide 27.4 26.3 Anion Gap 9.6 9.7 BUN 10 12 Creatinine 1.0 0.9 Est GFR (CKD-EPI 2020) 56.25 63.83 Glucose 105 107 H Calcium 9.5 9.2 Magnesium 1.9 Total Bilirubin 0.4 AST 19 ALT 10 L Alkaline Phosphatase 77 Creatine Kinase 40 Total Protein 7.1 Albumin 3.0 L Lipase 22 Urine Color Yellow Urine Clarity Cloudy Urine pH 6.0 Ur Specific [place] 1.015 Urine Protein 30 H Urine Ketones Trace H Urine Blood Small H Urine Nitrite Negative Urine Bilirubin Negative Urine Urobilinogen 0.2 Ur Leukocyte Esterase Large H Urine RBC Not Applicable Urine WBC >50 H Ur Epithelial Cells Not Applicable Urine Crystals Not Applicable Urine Bacteria Not Applicable Urine Mucus Not Applicable Ur Culture Indicated? Yes Urine Glucose Negative Time Spent with Patient Time Spent with Patient: >50 minutes Time was spent: preparing to see the patient(eg.review tests), obtaining and/or reviewing separately otained hiistory, ordering medications,tests, procedures, referring, communicating with other health health care law specialist, indepentently interpreting results, counseling the patient and care coordination
[2023-08-06 11:19] VITALS: BP 169/69; PULSE 60; RESP 17; TEMP 36.4; O2SAT 93
--- NOTE | 2023-08-06 13:02 | NUR.NOTE ---
is here in room with pt and asking nursing to bring in a new HIPPA form, stating that pt will allow him on it now. Advised that the form will be addressed after he leaves. Nursing Note:
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
[2023-08-06] MEDS: cefTRIAXone 1 GM/50 ML BAG IVPB (14:00)
--- NOTE | 2023-08-06 14:34 | CHAPLAIN ---
Amanda was resting in bed, with the tv on, when I visited. She was pleasant and engaged in a conversation. She remembered that she lives on [facility]. but couldn't remember what town it was in. When I suggested [place] or [place], she said she wasn't sure. (She lives in [facility] Amanda also told me she is not really sure why she's here, she said she hasn't seen a doctor to have things explained to her and she hopes to be going home since she doesn't know why she's here. Amanda's daughter and let Amanda's nurse know that she is concerned about her mom's cognition. According to Care Management notes, Amanda's Ed has reported increased difficulty in helping Amanda ambulate and increased confusion on Amanda's part.
[2023-08-06 15:15] VITALS: BP 158/58; PULSE 59; RESP 18; TEMP 36.8; O2SAT 97
[2023-08-06] MEDS: Enoxaparin 40 MG/0.4 ML SYR SC (17:14)
[2023-08-06 19:47] VITALS: BP 160/66; PULSE 72; RESP 18; TEMP 36.6; O2SAT 95
[2023-08-06] MEDS: traZODone 100 MG TAB PO (20:54)
[2023-08-06] MEDS: Docusate Sodium 100 MG CAP PO (22:27)
[2023-08-06] MEDS: Polyethylene Glycol 3350 17 GM PACKET PO (22:27)
[2023-08-07] VITALS (7 sets, daily range): BP systolic 115–180; BP diastolic 65–81; PULSE 51–82; RESP 16–20; TEMP 35.9–36.8; O2SAT 91–96
--- NOTE | 2023-08-07 | DI.CT_ITS ---
Exam(s) CT ABDOMEN PELVIS WO EXAM: CT ABDOMEN PELVIS WO CLINICAL HISTORY: no PO or IV contrast. TECHNIQUE: Imaging Protocol: Axial computed tomography images with coronal and sagittal reformatted images were created and reviewed. Oral: / no COMPARISON: CT CT CHEST/ABD/PEL WO from 08/05/2023 FINDINGS: Lung Bases: No acute findings. Heart enlarged. Mitral annular calcification. Liver: Normal density. No measurable mass. Gallbladder and biliary tract: No radiodense calculus or dilation. Pancreas: Normal density, no abnormal calcifications or inflammatory process. Spleen: Normal. Kidneys: Normal size, contour and axis. No radiodense stones or obstructive uropathy. No suspicious m asses seen. Adrenal glands: No masses seen. Lymph nodes: Within normal limits. Vasculature: Abdominal aorta non-dilated. Vasculature heavily calcified. Soft tissues: Left-sided ostomy with parastomal hernia containing colon and loops of small bowel, unc hanged in appearance. No evidence of obstruction. No fluid or stranding within the fat within the h ernia. Bladder: Distended. No wall thickening. No mass or calculi. Bowel: Partial colectomy. No obstruction or bowel wall thickening. Peritoneal cavity: No ascites, collection or mesenteric inflammatory response. Reproductive organs: Status post hysterectomy. Bones: Severe T12 compression fracture with vertebroplasty cement again noted. No new findings. IMPRESSION: No acute abnormality in the abdomen or pelvis. The ostomy and parastomal hernia appear unchanged. RADIATION DOSE DELIVERED: Total DLP DATA REPOSITORY: All CT scans at this facility are submitted to the National Radiology Data Registry (NRDR) Dose Index Registry (DIR) with the [employer] [place] (ACR). RADIATION OPTIMIZATION: All CT scans at this facility use at least one of these dose optimization te chniques: automated exposure control; mA and/or kV adjustment per patient size (includes targeted exa ms where dose is matched to clinical indication); or iterative reconstruction.
[2023-08-07] MEDS: Normal Saline Flush 10 ML SYR IVP ×3 (08:04→21:12)
[2023-08-07] MEDS: methylPREDNISolone 4 MG TAB 2 MG PO (08:04)
[2023-08-07] MEDS: Polyethylene Glycol 3350 17 GM PACKET PO (12:22)
--- NOTE | 2023-08-07 13:20 | PDOC.CMPRO ---
Date of service: 08/07/23 Time of Service: 13:21 Care Management Progress Note Progress Note Text Progress Note Text: S/O: Awaiting PT consult to inform level of care recommendations. MD reports Neuro/Psych consults will need to be coordinated as an outpatient, even after CM and nursing outlined concerns and barriers to O/P follow up. CM continues to follow. A: 83 year old female admitted to [facility] 08/05/23 for UTI, Infectious encephalopathy P: Pat will return home with new orders for home health RN, PT, OT, SOIL CONSERVATIONIST if PT evaluation aligns with patient's goals to return home. Pat will follow up with her PCP, Palliative Care and possibly Neurology to establish dementia disease process and medication recommendations. Sow Farm Barn Technician Medicaid reviewed with Ed who requires support with document, if unable to be completed inpatient, SOIL CONSERVATIONIST orders will hopefully continues this support upon discharge. CM following.
[2023-08-07] MEDS: oxyCODONE 5 MG TAB PO (13:21)
[2023-08-07] MEDS: Acetaminophen 325 MG TAB PO (13:21)
[2023-08-07] MEDS: cefTRIAXone 1 GM/50 ML BAG IVPB (13:22)
--- NOTE | 2023-08-07 15:08 | IN_ITS ---
PT Notes Visit Reasons: UTI, Infectious Encephalopathy Physical Therapy Inpatient Initial Evaluation Date: 08/07/2023 Referring Doctor: Mena Lugo MD PT Orders: PT CONSULT: Limited ability Precautions: Fall. Standard. Activity as tolerated. Use own slippers when walking to minimize pain in B feet. Patient Profile/Admitting Diagnosis: Amanda is an 83-year-old female admitted to [facility] for management of urinary tract infection, infectious encephalopathy, chronic pain syndrome, essential hypertension, GERD, adrenal insufficiency, and memory impairment. PMHX: All Active Problems (Updated 08/05/23 @ 14:01 by Jonathan Post MD) Infectious encephalopathy (Acute) UTI (urinary tract infection) (Acute) Colostomy in place (Chronic) Left upper limb pain (Acute) Neck stiffness (Acute) Back pain (Acute) Bilateral leg and foot pain (Acute) Callosity (Acute) Nail dystrophy (Acute) Toe pain, left (Acute) Toe pain, right (Acute) Multiple fractures of ribs of right side (Acute) Colostomy status (Chronic) Anterolisthesis of lumbosacral spine (Chronic) Abd/CT 03/2022 Mild degenerative anterolisthesis L5 upon S1 noted as well as vacuum phenomena within the L5-S1 disc space which was not previously present. 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 Patient aware that there is higher than recommended dose. Makes informed decision, drug contract with [facility] Chronic pain syndrome (Chronic) Due to chronic back pain, 08/2021-drug contract at [facility], V PMS review,11/2021-urine drug screen Using oxycodone for pain mgmt when taking a shower. Essential hypertension (Chronic) Peristomal hernia (Chronic) Had [facility] [place] for obstruction. Had ostomy mgmt and hernia improved, but not resolved.GERD (gastroesophageal reflux disease) (Chronic) Cerebral amyloid angiopathy (Chronic) : possible diagnosis re:brain MRI/ [place] [facility] [place]Anthony Avalos Urethral caruncle (Chronic) dx by Obgyn Gout (Chronic) Rectovaginal fistula (Chronic) Anemia of chronic disease (Chronic) Constipation by delayed colonic transit (Chronic) Urinary retention with incomplete bladder emptying (Chronic) Adrenal insufficiency (Chronic) Iatrogenic secondary to chronic steroid use, on low-dose chronic steroid Primary osteoarthritis of left knee (Chronic 07/30/15) PMR (polymyalgia rheumatica) (Chronic 01/15/16) DX 2016 : /curtis resp. to Prednisone Osteoporosis (Chronic) Bone density scan : 11/2021, managed by [facility], on prolia Obstructive sleep apnea syndrome (Chronic) after closed head injury pt not using CPAP machine Non-alcoholic fatty liver disease (Chronic) persistent elevated AST echo. 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 closed head injury Medical History Brain bleed 05/2021 tx at [facility], intra parenchymal left-sided hemorrhage-treated through [facility] burst fracture Compression fracture of body of thoracic vertebra Palliative care patient Perforation of colon as colonoscopy complication Tuberculosis Insomnia Raynaud's disease Excessive sweating (06/02/16) daytime sweating if >74 degrees/ fatigue normal cbc, spep,echocardiogram,sed.rate,cmp Colon polyp (06/28/18) adenoma colon pollyps-1997; none on subsequent colonoscopies; most recent c- scope in 2005 was normal 2018-adenoma Surgical History S/P rotator cuff repair S/P BSO (bilateral salpingo-oophorectomy) S/P appendectomy S/P hysterectomy S/P kyphoplasty H/O partial resection of colon Sigmoid colon resection 18S/P tonsillectomy H/O dilation and curettage Laparoscopic, Ovarian Cystectomy B/LEGD - [facility] (~2003) MILD EROSIVE ESOPHAGITIS, NO PINON'S ON BIOPSY Colonoscopy - [facility] ADENOMA COLON POLYPS 1997, NONE ON MULTIPLE SUBSEQUENT COLONOSCOPIES, MOST RECENT C-SCOPE 2005 WAS NORMAL, 2018 - cecal polyp, diverticulosis Social History/Home Situation: Lives with in a private home with three steps to enter with rails on B sides. Uses a front-wheeled walker for all indoor ambulation. does the cooking, laundry and chores as patient states that her mind no longer works as it should and that she is no longer able to tolerate doing anything anymore. Equipment Owned/DME: FWW Subjective: Feet tender and hypersensitive to touch. Able to walk better with use of footwear. Denies headache, chest pain, and lightheadedness throughout ses fouzia. Wants to go home when safe. Objective: General Observation: Supine in bed. High BMI. Mental Status: Alert and oriented as to person and purpose. Able to pay attention, focus, and respond appropriately. Pain: As above Vital Signs: Closely monitored by nursing staff ROM: Right Upper Extremity: Shoulder Flexion lacks the last 25% of AROM. Shoulder abduction lacks the last 25% of AROM. Elbow flexion WFL. Wrist flexion WFL. Functional opening and closing of hand WFL. Left Upper Extremity: Shoulder Flexion lacks the last 25% of AROM. Shoulder abduction lacks the last 25% of AROM. Elbow flexion WFL. Wrist flexion WFL. Functional opening and closing of hand WFL. Right Lower Extremity: Hip flexion WFL. Hip abduction WFL. Knee flexion WFL. Ankle dorsiflexion WFL. Ankle plantarflexion WFL. Left Lower Extremity: Hip flexion WFL. Hip abduction WFL. Knee flexion WFL. Ankle dorsiflexion WFL. Ankle plantarflexion WFL. Strength: Right Upper Extremity: Shoulder flexors 3-/5. Shoulder abductors 3-/5. Elbow flexors 4-/5. Elbow extensors 4-/5. Chiropractic Teacher strong. Left Upper Extremity: Shoulder flexors 3-/5. Shoulder abductors 3-/5. Elbow flexors 4-/5. Elbow extensors 4-/5. Chiropractic Teacher strong. Right Lower Extremity: Hip flexors 4-/5. Hip abductors 4-/5. Knee flexors 4-/5. Knee extensors 4-/5. Ankle dorsiflexors 4-/5. Ankle plantarflexors 4-/5. Left Lower Extremity: Hip flexors 4-/5. Hip abductors 4-/5. Knee flexors 4-/5. Knee extensors 4-/5. Ankle dorsiflexors 4-/5. Ankle plantarflexors 4-/5. Bed Mobility/Transfers:. Minimal cueing provided for use of B hands as needed for support, movement sequence, Ad management, and and posture to reduce fall risk and minimize pain report. Rolling independent Supine to sit independent Sit to supine independent Sit to stand supervision Stand to sit supervision Bed to reclining chair supervision Reclining chair to bed supervision Gait: 150 feet + 150 feet. Stand by assist using FWW. Minimal cueing provided movement sequence, AD management, and and posture to reduce fall risk and minimize pain report. Denies headache, chest pain, nad lightheadedness throughout session. Balance: Static Sitting: Normal Dynamic Sitting: Normal Static Standing: Fair Dynamic Standing: Fair Special Tests: Mobility Limitations Standardized Measure [facility] AM-PAC 6 clicks Basic Mobility Inpatient Short Form: Raw Score: 23 CMS Score: 11% deficit 4-stage balance Test: Able to maintain feet together for 10 seconds but is unable to with semi-tandem, full tandem, and one-legged stance. Informed Consent/Education: Patient was instructed in purpose of PT consult and plan of care. Agreeable to proceed with established PT POC to achieve personal goals. ASSESSMENT: Patient requires the continued use of front-wheeled walker for all mobility ADL performance to maximize independence and reduce fall risk at home. Will benefit from orthopedic shoes to provided needed cushioning of painful feet Patient presents with clinical signs and symptoms consistent with current/admitting diagnoses that have resulted to mobility limitations, gait instability, generalized weakness, and overall ADL decline as demonstrated by the following impairment level findings: 1. Decreased strength to B UE/LE major muscle groups 2. Impaired sitting/standing balance 3. Impaired activity tolerance 4. Limitation of joint range of motion in B shoulders (chronic) Impairments are contributing to the following functional limitations: 1. Difficulty with ambulation without assistive device and physical assistance 2. Increased completion time for mobility ADL performance 3. Increased risk for falls 4. Difficulty with managing steps alone safely Patient is assessed as a 65174 moderate complexity based on the following: History: 83-year-old female with past medical history as indicated above Examination: Demonstrable impairment in strength, balance, and mobility level with underlying impairments and functional limitations as exhibited above as well as deficit score of 11% utilizing the [facility] Mobility Inpatient Short Form Presentation: Stable Decision Makin moderate complexity Goals: Goals X1 week 1. Sit-Stand independent 2. Stand-Sit independent with [] 3. Bed-Chair independent with [] 4. Chair-Bed independent with [] 5. Independent gait on level surface with use of [] for at least [] feet without report of pain nor dyspnea 6. Independent stair negotiation while holding onto [] rails for at least [] steps without report of pain nor dyspnea 7. Independent with home exercise program 8. Good static and dynamic standing balance/tolerance Plan of Care/Treatment Plan: 1-2x/day, 7 days/week x 1 week. Plan of care has been reviewed with the [employer] providing the service under Physical Therapy direction. Initiate Physical Therapy intervention for pain management as needed, strengthening, bed mobility, transfers, gait, stairs, balance training, and use of assistive device. DISCHARGE RECOMMENDATIONS: [] Home with no services [] [X] Home with services. Patient will benefit from home health PT services in order to progress mobility level using least restrictive assistive ambulatory device, assess home safety, identify additional equipment needs, and establish a functional maintenance program that will increase ability of patient to remain at home. [] Home with outpatient PT [] [] SNF for continued rehabilitation [] [] [facility] [] [] SNF versus LTC based on ability to participate and progress [] TREATMENT CODE/TIME: 93123 x 20 minutes for 1 unit, 77560 x 17 minutes for 1 unit beginning at 15:08 PM. Thank you for the opportunity to participate in the care of this patient. Marley Patel PT, DPT, CLT [facility] [place], [place]
[2023-08-07] MEDS: Enoxaparin 40 MG/0.4 ML SYR SC (16:36)
[2023-08-07] MEDS: Docusate Sodium 100 MG CAP PO (16:45)
[2023-08-07] MEDS: Cyclobenzaprine 10 MG TAB 5 MG PO (16:45)
--- NOTE | 2023-08-07 18:04 | PGE_ITS ---
Date of Service Date of service: 08/07/23 Time of Service: 18:04 Assessment and Plan Assessment and plan (1) Abdominal pain: Status: Acute Assessment and plan: Given h/o abdominal surgery and current clinical picture, obstruction needs to be ruled out. The patient is anaphylactic to IV and PO contrast, so we will obtain a noncontrast CT of the abdomen/pelvis. (2) UTI (urinary tract infection): Status: Acute Assessment and plan: Present on admission. Urine C&S with aerococcus, typically sensitive to ceftriaxone. CT abdomen/pelvis 08/05 showed no obstructive uropathy/masses/ stones. Continue ceftriaxone. (3) Infectious encephalopathy: Status: Resolved Assessment and plan: In setting of a UTI. Resolved. (4) Chronic pain syndrome: Status: Chronic Assessment and plan: -I have written for a one time dose of IV dilaudid pending CT scan. For now, the plan is to continue her outpatient regimen. (5) Essential hypertension: Status: Chronic Assessment and plan: No change in tx. (6) GERD (gastroesophageal reflux disease): Status: Chronic Assessment and plan: She is not actually on home therapy for this, per our med list. Consider starting a PPI. (7) Colostomy in place: Status: Chronic Assessment and plan: See above (8) Adrenal insufficiency: Status: Chronic Assessment and plan: Contine home dose of medrol 2 mg daily. (9) Memory impairment: Status: Chronic Assessment and plan: Appears to be at her baseline (10) DVT prophylaxis: Status: Acute Assessment and plan: SC enoxaparin (11) Discharge planning issues: Status: Acute Assessment and plan: DNR/DNI C/s PT. Subjective Subjective Interval history since last seen: Ms Manuel states she does not feel too good. She denied dizziness, CP, SOB, nausea. Her main complaint is pain around the ostomy site that started about 45 minutes ago. She feels she is not able to pass gas or stool into the ostomy bag. She did have dinner prior to the pain starting. Exam Narrative Exam Narrative: General: Pleasant elderly female who is A&Ox3 and appears uncomfortable in bed HEENT: EOMI, MMM Heart: RRR, no m/r/g Lungs: CTAB Abdomen: soft everywhere except around the ostomy site where she feels full/firmer and is tender, no bowel sounds heard Extremities: no edema BLEs Objective Last Vital Signs Temp 36.6 C 08/07/23 15:45 Pulse 51 L 08/07/23 15:45 Resp 17 08/07/23 15:45 BP 146/75 H 08/07/23 15:45 Pulse Ox 96 08/07/23 15:45 Time Spent with Patient Time Spent with Patient: 35-49 minutes Time was spent: preparing to see the patient(eg.review tests), obtaining and/or reviewing separately otained hiistory, ordering medications,tests, procedures, referring, communicating with other health attending ambulatory care, indepentently interpreting results, counseling the patient and care coordination
[2023-08-07] MEDS: HYDROmorphone 2 MG/ML SYR 1 MG IVP (18:37)
--- NOTE | 2023-08-07 19:14 | DI.VRAD_ITS ---
PROCEDURE INFORMATION: Exam: CT Abdomen And Pelvis Without Contrast Exam date and time: 08/07/2023 6:57 PM Age: 83 years old Clinical indication: Abdominal pain; Localized; Prior surgery; Surgery date: 6+ months; Surgery type: Appendectomy, hysterotomy, partial colectomy; Patient HX: Pain around ostomy site TECHNIQUE: Imaging protocol: Computed tomography of the abdomen and pelvis without contrast. Radiation optimization: All CT scans at this facility use at least one of these dose optimization techniques: automated exposure control; mA and/or kV adjustment per patient size (includes targeted exams where dose is matched to clinical indication); or iterative reconstruction. COMPARISON: CT CHEST/ABD/PEL WO 08/05/2023 12:00 PM FINDINGS: Liver: Normal. No mass. Gallbladder and bile ducts: Normal. No calcified stones. No ductal dilation. Pancreas: Normal. No ductal dilation. Spleen: Normal. No splenomegaly. Adrenal glands: Normal. No mass. Kidneys and ureters: There are 2 simple appearing exophytic cortical cysts of the right kidney measuring 1.7 and 2.1 cm. Left kidney appears unremarkable. No evidence of urolithiasis or hydronephrosis. Stomach and bowel: Unremarkable. No obstruction. No mucosal thickening. Appendix: No evidence of appendicitis. Intraperitoneal space: Unremarkable. No free air. No significant fluid collection. Vasculature: Dense atherosclerotic calcification throughout the abdominal aorta and iliac arteries. No evidence of aneurysm. Lymph nodes: Unremarkable. No enlarged lymph nodes. Urinary bladder: Unremarkable as visualized. Reproductive: Uterus is surgically absent. No adnexal abnormality. Bones/joints: Stable severe compression of the T12 vertebra with evidence of prior vertebroplasty. No acute vertebral body compression or fracture. Severe facet arthropathy in the lower lumbar spine with grade 1 anterolisthesis of L5. Soft tissues: Left lower quadrant colostomy remains in place with stable moderate-sized parastomal hernia. IMPRESSION: No acute abnormality evident. Stable chronic appearing findings, including moderate-sized left lower quadrant parastomal hernia without evidence of incarceration or bowel obstruction. Dictated and Authenticated by: Issa Smith MD. Ordering:ASHLIE San MD
[2023-08-07] MEDS: traZODone 100 MG TAB PO (21:12)
[2023-08-08 03:59] VITALS: BP 176/76; PULSE 54; RESP 18; TEMP 36; O2SAT 96
[2023-08-08] MEDS: Levothyroxine 100 MCG TAB PO (05:34)
[2023-08-08 06:32] LABS: Abs Immature Grans 0.01 10^3/uL (0.0-0.06); Absolute Basophil Count 0.04 10^3/uL (0.0-0.2); Absolute Eosinophil Count 0.22 10^3/uL (0.0-0.7); Absolute Lymphocyte Count 1.44 10^3/uL (1.2-3.4); Absolute Monocyte Count 0.62 10^3/uL (0.1-0.8); Absolute Neutrophil Count 3.73 10^3/uL (1.2-6.7); Basophils % 0.7; Eosinophils % 3.6; HCT 32.7 % (36.0-46.0); HGB 10.1 g/dL (11.2-15.7); Immature Grans % 0.2; Lymphocytes % 23.8; MCH 26.8 pg (27.0-33.0); MCHC 30.9 % (32.0-36.0); MCV 87 fL (80-95); MPV 10.3 fL (8.0-11.0); Monocytes % 10.2; Neutrophils % 61.5; Platelet Count 249 10^3/uL (130-400); RBC 3.77 10^6/uL (3.93-5.22); RDW 13.2 % (11.7-14.6); RDW-SD 41.8 fL; WBC 6.06 10^3/uL (4.4-10.8)
[2023-08-08 07:00] LABS: Anion Gap 8.1 mmol/L (3-11); BUN 14 mg/dL (7-18); CO2 28.9 mmol/L (21.0-32.0); CREATININE 0.9 mg/dL (0.55-1.02); Calcium 9.1 mg/dL (8.5-10.1); Chloride 104 mmol/L (98-107); Estimated GFR 63.83 (mL/min/1.73m2); Glucose 94 mg/dL (74-106); Potassium 3.6 mmol/L (3.5-5.1); Sodium 141 mmol/L (136-145); TSH 15.42 uIU/mL (0.36-3.74)
[2023-08-08 07:28] VITALS: BP 188/68; PULSE 55; RESP 16; TEMP 36.1; O2SAT 98
[2023-08-08] MEDS: Normal Saline Flush 10 ML SYR IVP ×4 (08:31→20:20)
[2023-08-08] MEDS: Polyethylene Glycol 3350 17 GM PACKET PO (08:31)
[2023-08-08] MEDS: methylPREDNISolone 4 MG TAB 2 MG PO (08:31)
[2023-08-08] MEDS: Senna TAB 1 TAB PO (08:32)
[2023-08-08] MEDS: Docusate Sodium 100 MG CAP PO ×2 (08:32→20:20)
[2023-08-08] MEDS: oxyCODONE 5 MG TAB PO ×2 (08:32→23:22)
[2023-08-08] MEDS: DULoxetine 30 MG CAP PO (08:32)
--- NOTE | 2023-08-08 10:21 | PT.INTREAT ---
Date of service: 08/08/23 Time of Service: 09:50 PT Notes Visit Reasons: UTI, Infectious Encephalopathy Inpatient Physical Therapy Treatment Note [facility] Date: 08/08/2023 PRECAUTIONS: Fall, Standard, Activities as Tolerated and use own slippers to minimize bilateral foot pain. SUBJECTIVE: Wants to go home. Indicated she is willing to walk, needs to get going so she can get back home. OBJECTIVE: ? PAIN: Complaining of abdominal and bilateral foot pain, but mainly of pain in the top of right foot. Pain both sitting on edge of bed getting her slippers on/off and when walking. Nurse Kadi indicated that Amanda continued to complain of foot pain while in shower also. Pain at it's greatest walking shower to room. Pain level noted at 8-9 out of 10 with feet and below 5 out of 10 with stomach. VITALS: ? Therapeutic Activities (65324f0): Direct one-on-one instruction in dynamic activities to improve functional performance. ? BED MOBILITY/TRANSFERS? Rolling L/R: Able to roll to right independently Supine-sit: Stand by guard? Sit-stand: CGA ? Stand-sit: CGA? Provided skilled cues and instruction on performance and technique throughout. GAIT? Assistive Device: FWW? Weight bearing: Full Assist: CGA of one and verbal cueing with maneuvering the walker to avoid running into objects. Wheelchair follow both to and from shower room. ? Distance:?Room to/from shower room, approximately 150ft?x2 ? Deviation: Slow, short steps. Tends to get very close to objects when walking, needing reminder to steer away from objects.? ASSESSMENT:? Tolerated ambulation very well with good effort given. Needs instructions to be very specific due to easily being confused. PLAN: Continue with PT's current POC, focus on improved ADL function for return to home. TREATMENT CODE/TIME: 30315e3, 9:50 to 10:10 am (20') and 10:35 to 10:50 am (15')
[2023-08-08] MEDS: Acetaminophen 325 MG TAB PO (11:01)
[2023-08-08 11:10] VITALS: BP 147/73; PULSE 51; RESP 16; TEMP 36.5; O2SAT 95
[2023-08-08] MEDS: cefTRIAXone 1 GM/50 ML BAG IVPB (13:55)
[2023-08-08] MEDS: Normal Saline 500 ML 100 ML IV (13:55)
[2023-08-08] MEDS: Enoxaparin 40 MG/0.4 ML SYR SC (15:09)
--- NOTE | 2023-08-08 15:14 | PGE_ITS ---
Date of Service Date of service: 08/08/23 Time of Service: 15:14 Assessment and Plan Assessment and plan (1) Abdominal pain: Status: Acute Assessment and plan: I think this is related to constipation. I have intensified the bowel regimen. CT abdomen/pelvis last night did not reveal acute abnormalities. (2) UTI (urinary tract infection): Status: Acute Assessment and plan: Present on admission. Urine C&S with aerococcus, typically sensitive to ceftriaxone. CT abdomen/pelvis 08/05 showed no obstructive uropathy/masses/ stones. Continue ceftriaxone. (3) Infectious encephalopathy: Status: Resolved Assessment and plan: In setting of a UTI. Resolved. (4) Chronic pain syndrome: Status: Chronic Assessment and plan: Continue her outpatient regimen. (5) Essential hypertension: Status: Chronic Assessment and plan: No change in tx. (6) GERD (gastroesophageal reflux disease): Status: Chronic Assessment and plan: She is not actually on home therapy for this, per our med list. Consider starting a PPI. (7) Colostomy in place: Status: Chronic Assessment and plan: See above (8) Adrenal insufficiency: Status: Chronic Assessment and plan: Contine home dose of medrol 2 mg daily. (9) Memory impairment: Status: Chronic Assessment and plan: Appears to be at her baseline (10) DVT prophylaxis: Status: Acute Assessment and plan: SC enoxaparin (11) Discharge planning issues: Status: Acute Assessment and plan: DNR/DNI Anticipate discharge home tomorrow. Subjective Subjective Interval history since last seen: Ms Manuel states that she is feeling a little better. She was able to pass hard stool through the ostomy this morning and has had a couple of small soft stools since then. She still feels a little sore around the ostomy site but is overall much better. No dizziness, CP, SOB, n/v. Excited to be going home tomorrow. Exam Narrative Exam Narrative: General: Pleasant elderly female who is A&Ox3 and looks much better HEENT: EOMI, MMM Heart: RRR, no m/r/g Lungs: CTAB Abdomen: soft around the ostomy site, + hypoactive bowel sounds Extremities: no edema BLEs Objective Last Vital Signs Temp 36.5 C 08/08/23 11:10 Pulse 51 L 08/08/23 11:10 Resp 16 08/08/23 11:10 BP 147/73 H 08/08/23 11:10 Pulse Ox 95 08/08/23 11:10 Laboratory Results - last 24 hr 08/08/23 08/08/23 06:08 06:08 WBC 6.06 RBC 3.77 L Hgb 10.1 L Hct 32.7 L MCV 87 MCH 26.8 L MCHC 30.9 L RDW 13.2 Plt Count 249 MPV 10.3 Immature Gran % 0.2 Neutrophils % 61.5 Lymphocytes % 23.8 Monocytes % 10.2 Eosinophils % 3.6 Basophils % 0.7 Nucleated RBC % 0.0 Absolute Neutrophils 3.73 Absolute Lymphocytes 1.44 Absolute Monocytes 0.62 Absolute Eosinophils 0.22 Absolute Basophils 0.04 Sodium 141 Potassium 3.6 Chloride 104 Carbon Dioxide 28.9 Anion Gap 8.1 BUN 14 Creatinine 0.9 Est GFR (CKD-EPI 2020) 63.83 Glucose 94 Calcium 9.1 Magnesium 2.0 TSH Cancelled 15.42 H Objective Narrative Objective Narrative: CT abdomen/pelvis: No acute abnormality in the abdomen or pelvis. The ostomy and parastomal hernia appear unchanged. Time Spent with Patient Time Spent with Patient: 25-34 minutes Time was spent: preparing to see the patient(eg.review tests), obtaining and/or reviewing separately otained hiistory, ordering medications,tests, procedures, referring, communicating with other health medicare sales representative, indepentently interpreting results, counseling the patient and care coordination
[2023-08-08 15:36] VITALS: BP 142/60; PULSE 56; RESP 16; TEMP 36.6; O2SAT 96
[2023-08-08 19:58] VITALS: BP 159/78; PULSE 56; RESP 16; TEMP 36.2; O2SAT 97
[2023-08-08] MEDS: traZODone 100 MG TAB PO (20:20)
[2023-08-08 23:25] VITALS: BP 160/92; PULSE 54; RESP 16; TEMP 36.6; O2SAT 96
[2023-08-09] MEDS: Levothyroxine 100 MCG TAB PO (05:40)
[2023-08-09 08:11] VITALS: BP 170/64; PULSE 55; RESP 16; TEMP 36; O2SAT 95
[2023-08-09] MEDS: methylPREDNISolone 4 MG TAB 2 MG PO (09:02)
[2023-08-09] MEDS: DULoxetine 30 MG CAP PO (09:02)
[2023-08-09] MEDS: Docusate Sodium 100 MG CAP PO (09:02)
[2023-08-09] MEDS: Normal Saline Flush 10 ML SYR IVP (09:03)
[2023-08-09] MEDS: Polyethylene Glycol 3350 17 GM PACKET PO (09:04)
--- NOTE | 2023-08-09 11:29 | PT.INTREAT ---
Date of service: 08/09/23 Time of Service: 09:10 PT Notes Visit Reasons: UTI, Infectious Encephalopathy Inpatient Physical Therapy Treatment Note [facility] Date: 08/09/2023 PRECAUTIONS: Fall, Standard, Activities as Tolerated and use own slippers to minimize bilateral foot pain. SUBJECTIVE: Continuing to complain of bilateral foot pain with ambulation. Indicated she has better shoes at home to deal with this. Also, states that she tends to walk barefoot at home and not so far. Really wants to return home today. OBJECTIVE: ? PAIN: Bilateral foot pain with ambulation today. Not bad in bed. Therapeutic Activities (33208d3): Direct one-on-one instruction in dynamic activities to improve functional performance. ? BED MOBILITY/TRANSFERS? Rolling L/R: SBA Supine-sit: SBA? Sit-supine: SBA ? Sit-stand: SBA? Stand-sit: SBA? Provided skilled cues and instruction on performance and technique throughout. Ambulated to restroom to urinate. Was able to whip herself and while standing at sink washing hands indicated she needed to stand and brush her teeth. Able to do all this with SBA only. GAIT? Assistive Device: FWW ? Weight bearing: Full Assist: CGA-SBA ? Distance:?250ft, with short standing breaks (30seconds), due to bilateral foot pain. ? ASSESSMENT:? Tolerated today's session well despite ongoing foot pain. Very eager to get home to her and cats. PLAN: Continue to work on ADL activity for preparation to return home. TREATMENT CODE/TIME: [id number], 9:10 to 9:45 am (35')
--- NOTE | 2023-08-09 11:39 | PDOC.HHF2F ---
Home Health Referral Home Health Orders Clinical synopsis of why skilled professionals are needed: frail elderly female with memory deficit at risk for discharge failure Medical diagnosis necessitation home health referral: urinary tract infection, encephalopathy, cognitive impairment Registered Nurse: Check all that apply Instruct on new or changed medication(s)/assess compliance: Ordered Assess for exacerbation of medical condition, instruct patient/caregivers on signs and symptoms to report for early detection: Ordered Physical Therapist: Check all that apply Increase strength & endurance for safe mobility at home: Ordered To design/establish home maintenance program: Ordered Fall reduction therapy program for patient with history of frequent falls: Ordered Home safety evaluation and teaching/gait training including stair management (if applicable): Ordered Occupational Therapist: Evaluate and treat for patient unable to perform ADL/IADL/self-care: Ordered Laminator Preforms: Assist with community resources: Ordered Assist with plastering supervisor care planning: Ordered Home Bound Status Requires the aid of supportive device (check all that apply): Walker Describe why leaving home would require a considerable and taxing effort: Confusion Encounter Date and Reason: I certify that a FTF encounter for this patient was performed on August 09, 2023 and that such encounter was related to the primary reason the patient requires home health services. The encounter was conducted in the following manner: By me as the certifying physician, MITERING MACHINE OPERATOR, PA or By an inpatient physician, MITERING MACHINE OPERATOR or PA during an inpatient stay who communicated findings to me, Certification And Authentication I certify that I composed the above information based on my clinical judgment relating to this patient's medical condition and, if applicable, clinical findings communicated to me by the NPP or inpatient physician who performed the FTF encounter. Name of Provider that will be monitoring home health services: Keyana Olivas
--- NOTE | 2023-08-09 11:42 | W.PM.DS.N ---
Date of service: 08/09/23 Time of Service: 11:42 DS: Diagnosis Discharge Diagnosis (1) Abdominal pain: Status: Acute (2) UTI (urinary tract infection): Status: Acute (3) Infectious encephalopathy: Status: Resolved (4) Chronic pain syndrome: Status: Chronic (5) Essential hypertension: Status: Chronic (6) GERD (gastroesophageal reflux disease): Status: Chronic (7) Colostomy in place: Status: Chronic (8) Adrenal insufficiency: Status: Chronic (9) Memory impairment: Status: Chronic Discharge Plan Disposition Patient Disposition: Home W/Home Health Services Condition: Stable Discharge Details Reason For Visit: UTI, Infectious Encephalopathy Admit Date/Time: 08/05/23 13:56 Admit Provider: Jonathan Post Attending Provider: Jonathan Post Primary Care Provider: Keyana Olivas Hospital Course Hospital Course: This is a 83 year old female with past medical history of adrenal insufficiency, right lower back pain, chronic, hypertension, GERD, hypothyroidism, RIZWAN not using CPAP and anemia of chronic disease who presents to the emergency department with agitation, weakness and falls. Her work up in the ED most concerning for UTI. she was admitted to hospitalist services for further management. Urine C&S with aerococcus, typically sensitive to ceftriaxone which is what she was placed on. CT abdomen/pelvis 08/05 showed no obstructive uropathy/masses/ stones. Her mental status cleared with treatment and she returned to her baseline. She was eating and drinking well. She is stable for discharge to home and will complete her treatment with 5 more days of cefpodoxime discharged to home with home health services. discussed with DR Lugo Orange Meds and New Rx's Prescriptions: New cefpodoxime 200 mg tablet 200 mg PO BID Qty: 10 0RF Rx Instructions: must administer with a meal/food Continued polyethylene glycol 3350 [Miralax] 17 gram/dose powder 17 g PO DAILY PRN cyclobenzaprine 5 mg tablet 5 mg PO TID PRN (Reason: muscle spasm) Qty: 15 0RF Rx Instructions: avoid concurrent use with oxycodone monitor for sedation/fall risk, especially during initiation of medication trial sennosides [senna] 8.6 mg tablet 8.6 mg PO BID PRN (Reason: constipation) Qty: 30 5RF Rx Instructions: use one per day to avoid constipation related to opioid medication if constipation symptoms persist, may increase to 1 tab twice daily naloxone [Narcan] 4 mg/actuation spray,non-aerosol 4 mg intranasal Q3M PRN (Reason: opioid overdose) Qty: 2 0RF Rx Instructions: spray 1 dose into ONE nostril; alternate nostrils w each dose until help arrives in case of accidental drug poisoning oxycodone 5 mg tablet 5 mg PO BID MDD 5mg PRN (Reason: severe pain (scale score 7-10)) Qty: 60 0RF trazodone 100 mg tablet 100 mg PO QHS Qty: 30 1RF methylprednisolone 4 mg tablet 2 mg PO DAILY Qty: 15 0RF levothyroxine 100 mcg tablet 100 mcg PO DAILY Qty: 90 3RF Patient Comments: not taking the way /i should duloxetine 30 mg capsule,delayed release(DR/EC) 30 mg PO DAILY Qty: 30 3RF duloxetine 20 mg capsule,delayed release(DR/EC) 40 mg PO ONCE Patient Comments: TAKE TWO CAPSULES BY MOUTH EVERY DAY fentanyl 12 mcg/hr patch 72 hour 1 patch transdermal Q72H Patient Comments: APPLY 1 PATCH EVERY 72 HOURS FOR LONG ACTING PAIN CONTROL, MAXIMUM DAILY DOSE = 12 MCG ferrous gluconate 324 mg (38 mg iron) tablet 324 mg PO ONCE Patient Comments: TAKE ONE TABLET BY MOUTH THREE TIMES A DAY FOR IRON DEFICIENT ANEMIA Discharge Instructions Instructions: Urinary Tract Infection in Women (DC) Stand Alone Forms: Nursing Discharge Form Referrals: Keyana Olivas MD [Primary Care Provider] - (Message left for office to call you on Thursday to make a follow up for 1-2 weeks, please reach out to office if you do not hear from them. ) Activity:: Activity as Tolerated Equipment/Supplies:: No Equipment Needed Diet:: As Tolerated Discharge Orders Discharge Orders: Discharge Order (Routine); Ordered 08/09/23 Ordered By: Yarelis Tapia Discharge Data Discharge Date/Time-TO BE ENTERED AT DEPARTURE: 08/09/23 15:43 DS: Summary Time Spent with Patient providing and/or coordinating discharge services: Greater than 30 minutes Status at Discharge Functional status at discharge: uses cane/walker Overall status at discharge: patient is progressing back to baseline Mental Status: mental status grossly normal Speech and Movement: speech and movement normal Mood: congruent mood Affect: normal affect Quality:SDOH Health Related Social Needs: Health related social needs risk of homeless, transpo insecurity, personal safety Exam Const General: cooperative and no acute distress HENMT Mouth: moist mucous membranes Eyes Conjunctivae: normal conjunctivae Sclera: normal sclerae Neck Neck: trachea midline and supple Resp Auscultation: clear to auscultation bilaterally, no rales, no rhonchi and no wheezes Cardio Rate: regular rate and not tachycardic Rhythm: regular rhythm GI Palpation: soft, not firm, no guarding, no masses and not rigid Other: Ostomy intact with normal fecal output, no bleeding Mild skin irritation from adhesive around ostomy small 1 cm shallow skin immediately adjacent to ostomy, no bleeding Skin General skin exam: no rashes or lesions noted Neuro General: patient alert, patient awake and tone normal Extrem General: no edema Psych Appearance: grossly normal Mental Status: mental status grossly normal Speech and Movement: speech and movement normal Mood: congruent mood Affect: normal affect DS: Data Vitals/I&O Vitals and I&O: Vital Signs Temperature 36 C L 08/09/23 08:11 Temperature Source Tympanic 08/09/23 08:11 Pulse 55 L 08/09/23 08:11 Pulse Rhythm Regular 08/09/23 10:09 Pulse 60 08/05/23 12:54 Respiratory Rate 16 08/09/23 08:11 Respiratory Effort Normal, Non-Labored 08/09/23 10:09 Respiratory Depth Normal 08/09/23 10:09 Respiratory Pattern Normal 08/09/23 10:09 Blood Pressure 170/64 H 08/09/23 08:11 Blood Pressure Mean 86 08/05/23 13:01 Blood Pressure Position Supine 08/05/23 10:25 Pulse Oximetry 95 08/09/23 08:11 Oxygen Delivery Method Room Air 08/09/23 08:11 Oxygen Flow Rate 0 08/09/23 08:11 Pain Level 0 08/09/23 08:00 Comment BP called over radio 08/09/23 08:11 Intake & Output 08/08/23 08/08/23 08/09/23 11:59 23:59 11:59 Intake Total 660 / 1021.667 361.667 / 1021.667 120 / 120 Output Total 700 / 1200 500 / 1200 200 / 200 Balance -40 / -178.333 -138.333 / -178.333 -80 / -80 Intake: IV 60 / 171.667 111.667 / 171.667 Oral 600 / 850 250 / 850 120 / 120 Output: Urine 700 / 1200 500 / 1200 200 / 200 Other: Urine Color Yellow Yellow Yellow Urine Appearance Clear Clear Cloudy Urine Odor Normal Normal Comment Void x1 in the bedside commode. Voiding Methods Bedside Commode Toilet Toilet Data Completed and Pending Labs on day of discharge: Labs from last 24 hours 08/09/23 05:35 WBC Pending RBC Pending Hgb Pending Hct Pending MCV Pending MCH Pending MCHC Pending RDW Pending Plt Count Pending MPV Pending Immature Gran % Pending Neutrophils % Pending Lymphocytes % Pending Monocytes % Pending Eosinophils % Pending Basophils % Pending Absolute Neutrophils Pending Absolute Lymphocytes Pending Absolute Monocytes Pending Absolute Eosinophils Pending Absolute Basophils Pending Sodium Pending Potassium Pending Chloride Pending Carbon Dioxide Pending Anion Gap Pending BUN Pending Creatinine Pending Est GFR (CKD-EPI 2020) Pending Glucose Pending Calcium Pending Magnesium Pending PFSH All Active Problems (Updated 08/10/23 @ 00:05 by TONY BURNETTE) Abdominal pain (Acute) UTI (urinary tract infection) (Acute) Colostomy in place (Chronic) Left upper limb pain (Acute) Neck stiffness (Acute) Back pain (Acute) Bilateral leg and foot pain (Acute) Callosity (Acute) Nail dystrophy (Acute) Toe pain, left (Acute) Toe pain, right (Acute) Multiple fractures of ribs of right side (Acute) Colostomy status (Chronic) Anterolisthesis of lumbosacral spine (Chronic) Abd/CT 03/2022 Mild degenerative anterolisthesis L5 upon S1 noted as well as vacuum phenomena within the L5-S1 disc space which was not previously present. 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 Patient aware that there is higher than recommended dose. Makes informed decision, drug contract with [facility] Chronic pain syndrome (Chronic) Due to chronic back pain, 08/2021-drug contract at [facility], V PMS review,11/2021-urine drug screen Using oxycodone for pain mgmt when taking a shower. Essential hypertension (Chronic) Peristomal hernia (Chronic) Had [facility] admit 03/2021 for obstruction. Had ostomy mgmt and hernia improved, but not resolved. GERD (gastroesophageal reflux disease) (Chronic) Cerebral amyloid angiopathy (Chronic) : possible diagnosis re:brain MRI/ followed by Neuro [facility] Dr.Anthony Avalos Urethral caruncle (Chronic) dx by Obgyn Gout (Chronic) Rectovaginal fistula (Chronic) Anemia of chronic disease (Chronic) Constipation by delayed colonic transit (Chronic) Urinary retention with incomplete bladder emptying (Chronic) Adrenal insufficiency (Chronic) Iatrogenic secondary to chronic steroid use, on low-dose chronic steroid Primary osteoarthritis of left knee (Chronic 07/30/15) PMR (polymyalgia rheumatica) (Chronic 01/15/16) DX 2016 : /curtis resp. 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 Medical History Brain bleed 05/2021 tx at [facility], intra parenchymal left-sided hemorrhage-treated through [facility] T12 burst fracture Compression fracture of body of thoracic vertebra Palliative care patient Perforation of colon as colonoscopy complication Tuberculosis Insomnia Raynaud's disease Excessive sweating (06/02/16) daytime sweating if >74 degrees/ fatigue normal cbc, spep,echocardiogram,sed.rate,cmp Colon polyp (06/28/18) adenoma colon pollyps-1997; none on subsequent colonoscopies; most recent c-scope in 2005 was normal 2018-adenoma Surgical History S/P rotator cuff repair S/P BSO (bilateral salpingo-oophorectomy) S/P appendectomy S/P hysterectomy S/P kyphoplasty H/O partial resection of colon Sigmoid colon resection 06/28/18 S/P tonsillectomy H/O dilation and curettage Laparoscopic, Ovarian Cystectomy B/L EGD - [facility] (~2003) MILD EROSIVE ESOPHAGITIS, NO PINON'S ON BIOPSY Colonoscopy - [facility] ADENOMA COLON POLYPS 1997, NONE ON MULTIPLE SUBSEQUENT COLONOSCOPIES, MOST RECENT C-SCOPE 2005 WAS NORMAL, 2018 - cecal polyp, diverticulosis Family History Mother , in her 80s from pneumonia Heart disease Pneumonia Father , from complications of prostate surgery in his 80s Stroke Personal history of malignant neoplasm Heart disease Brother , aged 68 Alcohol abuse Cirrhosis with alcoholism Grandfather Essential hypertension Heart disease Grandmother Personal history of malignant neoplasm Stroke Grandmother Personal history of malignant neoplasm Son , from his drinking/SA; her oldest child Alcohol abuse Social History Smoking/Tobacco Use Status: Former Tobacco Use Smoking risk assessment performed?: Yes Alcohol Intake: current Alcohol Intake frequency: holidays/special occasions only Alcohol type: hard liquor Drug use: Never Substance use type: does not use Counseling given: No Household members: other Details: 2 Housing: house 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 Time Spent with Patient Time Spent with Patient: 45-69 minutes Time was spent: preparing to see the patient(eg.review tests), obtaining and/or reviewing separately otained hiistory, ordering medications,tests, procedures, indepentently interpreting results, counseling the patient and care coordination
[2023-08-09] MEDS: Senna TAB 1 TAB PO (11:50)
[2023-08-09 11:58] VITALS: BP 154/58; PULSE 58; RESP 16; TEMP 36.7; O2SAT 95
[2023-08-09] MEDS: cefTRIAXone 1 GM/50 ML BAG IVPB (14:16)
--- NOTE | 2023-08-09 15:12 | PDOC.CMDIS ---
Date of service: 08/09/23 Time of Service: 15:12 LACE Index Scoring Tool Questions: Length of Stay (in days): 4 - 6 Was the patient admitted via the E.D.?: Yes Comorbidities: Liver or Renal Disease E.D. Visits: 3 Answers: Total Score: 15 Risk of Readmission: High Risk Care Management Discharge Plan Reason for Hospitalization: UTI, Infectious encephalopathy Discharge Plan: Pat will return home today with new orders for HH RN, PT, OT, PREFABRICATOR. Her will drive her home via private vehicle. She will follow up with her PCP and discharge plan of care. She is happy to be going home today, and did not present any further concerns. Patient/Family Education Needs: Review discharge instructions and limitations, discussion of self care needs including ask me three. Services Needed at Discharge: Home Health Care Services (HH RN, PT, OT, PREFABRICATOR) SDOH Health Related Social Needs: Health related social needs risk of homeless, transpo insecurity, personal safety Health related social needs: housing instability, housed, with risk of homelessness(Z59.811), transportation insecurity(Z59.82) and problem related to primary support group(Z63.9)
--- NOTE | 2023-08-09 15:20 | NUR.NOTE ---
Voice message left for PCP to call patient on Thursday to make a follow up appointment for 1-2 weeks. Home Health paper work faxed to [facility].Nursing Note:
[2023-08-09 15:22] VITALS: BP 159/75; PULSE 55; RESP 17; TEMP 37; O2SAT 95
--- NOTE | 2023-08-09 15:44 | NUR.NOTE ---
Message left with PCP office to call patient on Thursday to make a follow up appointment for 1-2 weeks. Patient advised to call PCP if not contacted by office on Thursday08/10/2023Ndevin Note:
== END 2023-08-09 15:43 | disposition home health service (06) | DRG 690 ==
LOC: ER 10:28 → MS 15:09
PROVIDERS: Internal Medicine; Admitting Provider Family Medicine; Emergency Provider Physician Assistant; PCP Family Medicine; Visit Provider Family Medicine
DX: N39.0 Urinary tract infection, site not specified (principal); G93.49 Other encephalopathy; E27.40 Unspecified adrenocortical insufficiency; E85.4 Organ-limited amyloidosis; N82.3 Fistula of vagina to large intestine; G54.9 Nerve root and plexus disorder, unspecified; I10 Essential (primary) hypertension; K21.9 Gastro-esophageal reflux disease without esophagitis; Z93.3 Colostomy status; R41.3 Other amnesia; M54.50 Low back pain, unspecified; E03.9 Hypothyroidism, unspecified; G47.33 Obstructive sleep apnea (adult) (pediatric); R29.6 Repeated falls; R53.1 Weakness; I69.312 Visuospatial deficit and spatial neglect following cerebral infarction; I68.0 Cerebral amyloid angiopathy; M81.0 Age-related osteoporosis without current pathological fracture; K75.81 Nonalcoholic steatohepatitis (NASH); F32.A Depression, unspecified; M35.3 Polymyalgia rheumatica; D63.8 Anemia in other chronic diseases classified elsewhere; M1A.9XX0 Chronic gout, unspecified, without tophus (tophi); K59.01 Slow transit constipation; G47.00 Insomnia, unspecified; I73.00 Raynaud's syndrome without gangrene; Z90.49 Acquired absence of other specified parts of digestive tract; Z87.891 Personal history of nicotine dependence; B96.89 Other specified bacterial agents as the cause of diseases classified elsewhere
CPT/HCPCS: 00123; 36415; 71250; 80048; 80053; 82550; 83690; 85027; 87077; 96361; 96365; 96375; 97162; 97530; 99285; J1650; 70450; 74176; 81003; 81015; 83735; 84443; 85025; 87086; 87186; 99223; 99232; 99233; 99239; J0131; J0696; J1170; J7509

== ENCOUNTER 2023-09-29 22:32 | Emergency (ER) | payer MEDICARE, SELFPAY ==
[2023-09-29] VITALS (10 sets, daily range): BP systolic 192–219; BP diastolic 60–86; PULSE 60–66; RESP 16; TEMP 36.6; O2SAT 96–98
--- NOTE | 2023-09-29 | DI.RAD_ITS ---
Exam(s) XR HAND LT COMPLETE EXAM: XR HAND LT COMPLETE CLINICAL HISTORY: unwitnessed fall, lac to 5th digit with TTP. TECHNIQUE: 2D digital imaging was performed of the left hand. Three views were obtained. AP, later al and oblique views were obtained. COMPARISON: No exams were available for comparison FINDINGS: BONES: No acute fracture is present. No bony destructive lesion is seen. JOINTS: No dislocation present. There are areas of joint space narrowing in the interphalangeal joint s of the hand. There does appear to be a central erosion at the DIP joint of the 3rd finger. Findin gs are suggestive of erosive osteoarthritis. The bones are osteopenic. SOFT TISSUE: No radiopaque foreign body. IMPRESSION: No definite acute fracture or dislocation. If symptoms persist a repeat examination should be obtain ed. DATA REPOSITORY: RADIATION DOSE DELIVERED:
--- NOTE | 2023-09-29 | DI.RAD_ITS ---
Exam(s) XR SHOULDER LT COMPLETE 2+V EXAM: XR SHOULDER LT COMPLETE 2+V CLINICAL HISTORY: anterior left shoulder tenderness after fall. TECHNIQUE: 2D digital imaging was performed of the left shoulder. Four images were obtained. AP, G rashey and Y views were obtained. COMPARISON: No exams were available for comparison FINDINGS: BONES: No acute fracture is present. No bony destructive lesion is seen. There appears to been prior resection of the distal clavicle. JOINTS: No dislocation present. SOFT TISSUE: Normal. IMPRESSION: No acute fracture or dislocation. DATA REPOSITORY: RADIATION DOSE DELIVERED:
--- NOTE | 2023-09-29 00:01 | DI.RAD_ITS ---
Exam(s) XR SHOULDER RT COMPLETE 2+V EXAM: XR SHOULDER RT COMPLETE 2+V CLINICAL HISTORY: anterior right shoulder tenderness after fall. TECHNIQUE: 2D digital imaging was performed of the right shoulder. Four images were obtained. AP, Grashey and Y views were obtained. COMPARISON: No exams were available for comparison FINDINGS: BONES: No acute fracture is present. No bony destructive lesion is seen. Old right rib fracture defor mities are noted. JOINTS: No dislocation present. SOFT TISSUE: Normal. IMPRESSION: No acute fracture or dislocation. DATA REPOSITORY: RADIATION DOSE DELIVERED:
--- NOTE | 2023-09-29 00:01 | DI.RAD_ITS ---
Exam(s) XR WRIST RT COMPLETE EXAM: XR WRIST RT COMPLETE CLINICAL HISTORY: unwitnessed fall, lac to right wrist with tenderne. TECHNIQUE: 2D digital imaging was performed of the right wrist. Three views were obtained. PA, lat eral and oblique views were obtained. COMPARISON: CR,XR XR HAND LT COMPLETE from 09/29/2023 FINDINGS: BONES: No acute fracture is present. No bony destructive lesion is seen. JOINTS: The carpal bones are normally aligned. There is mild narrowing of the radiocarpal joint. SOFT TISSUE: Vascular calcifications are present. IMPRESSION: No acute fracture or dislocation. DATA REPOSITORY: RADIATION DOSE DELIVERED:
--- NOTE | 2023-09-29 22:30 | RT.EKG_ITS ---
APPROVED REPORT Exam: Resting ECG Reason for Exam: Syncope Patient Location: E HR:61 bpm ECG Measurements Heart Rate 61 AXIS ND 190 P -43 QRSd 124 QRS 6 QT 595 T 248 QTc 599 Conclusion Sinus rhythm...V-rate 60- 99 Right bundle branch block...QRSd>120, terminal axis(90,270) LVH with secondary repolarization abnormality...multi-LVH criteria, abnrm ST-T Prolonged QT interval...QTc >500mS Sinus rhythm... V-rate 60- [address] segment or T wave abnormalities to suggest occluisve TN no ST segment or T wave abnormalities to suggest occluisve TN
[2023-09-29] MEDS: MAGNESIUM SULFATE 2 GM/50 ML BAG IVPB (22:54)
[2023-09-29 23:02] LABS: Abs Immature Grans 0.03 10^3/uL (0.0-0.06); Absolute Basophil Count 0.04 10^3/uL (0.0-0.2); Absolute Eosinophil Count 0.08 10^3/uL (0.0-0.7); Absolute Lymphocyte Count 0.92 10^3/uL (1.2-3.4); Absolute Monocyte Count 0.85 10^3/uL (0.1-0.8); Absolute Neutrophil Count 4.96 10^3/uL (1.2-6.7); Basophils % 0.6; Eosinophils % 1.2; HCT 32.4 % (36.0-46.0); HGB 10.1 g/dL (11.2-15.7); Immature Grans % 0.4; Lymphocytes % 13.4; MCH 25.2 pg (27.0-33.0); MCHC 31.2 % (32.0-36.0); MCV 81 fL (80-95); MPV 9.7 fL (8.0-11.0); Monocytes % 12.4; Platelet Count 247 10^3/uL (130-400); RBC 4.01 10^6/uL (3.93-5.22); RDW 14.3 % (11.7-14.6); RDW-SD 42.1 fL; WBC 6.88 10^3/uL (4.4-10.8)
[2023-09-29 23:15] LABS: INR 1.2 (0.9-1.1); PTT Activated 26.1 sec (23.6-32.8); Prothrombin Time 12.1 sec (9.1-11.1)
[2023-09-29 23:16] LABS: ETHANOL BLOOD < 3.0 mg/dL (<10)
[2023-09-29 23:26] LABS: ALT 15 U/L (14-59); AST 16 U/L (15-37); Albumin 3.2 g/dL (3.4-5.0); Alkaline Phosphatase 84 U/L (46-116); Anion Gap 10.3 mmol/L (3-11); BUN 12 mg/dL (7-18); Bilirubin, Total 0.5 mg/dL (0.2-1.0); CO2 27.7 mmol/L (21.0-32.0); CREATININE 0.9 mg/dL (0.55-1.02); Calcium 8.9 mg/dL (8.5-10.1); Chloride 98 mmol/L (98-107); Estimated GFR 63.83 (mL/min/1.73m2); Glucose 93 mg/dL (74-106); Potassium 3.7 mmol/L (3.5-5.1); Sodium 136 mmol/L (136-145); TSH (W/Ref FT4) 7.25 uIU/mL (0.36-3.74); Total Protein 7.4 g/dL (6.4-8.2); Troponin I < 50 ng/L (< or =60)
[2023-09-29 23:32] LABS: D-Dimer 2845 ng/mlFEU (<500)
[2023-09-29 23:44] LABS: FREE T4 1.43 ng/dL (0.76-1.46)
--- NOTE | 2023-09-29 23:51 | DI.CT_ITS ---
Exam(s) CT HEAD CERVICAL SPINE WO EXAM: CT HEAD CERVICAL SPINE WO CLINICAL HISTORY: fall, neck pain. TECHNIQUE: Imaging Protocol: Axial computed tomography images with coronal and sagittal reformatted images were created and reviewed COMPARISON: CT CT HEAD CERVICAL SPINE WO from 04/11/[address] HEAD CERVICAL SPINE WO from 04/17/[address] HEAD WO from 08/05/2023 FINDINGS: The examination is limited due to patient motion artifact. CT Head: Ventricles and Extra axial spaces: Normal in size and morphology for the patient's age. Hemorrhage: There is acute intraparenchymal hemorrhage involving the medial aspect of the left occipi jin lobe. There is mild associated edema. Cerebral parenchyma: There are areas of decreased attenuation in the white matter consistent with chr onic microvascular ischemic disease. Midline shift: None. Brainstem/Cerebellum: Normal. Calvarium: Normal. Visualized Paranasal sinuses/Mastoids: Clear. Soft Tissues: Unremarkable. CT Cervical Spine: Bones: No acute fracture or subluxation. Age-appropriate degenerative changes are present. Soft Tissues: Unremarkable. Lung Apices: Clear. IMPRESSION: 1. Left occipital intraparenchymal hemorrhage or hemorrhagic infarct. There is no midline shift. 2. No skull fracture. 3. No acute fracture or subluxation in the cervical spine. RADIATION DOSE DELIVERED: Total DLP DATA REPOSITORY: All CT scans at this facility are submitted to the National Radiology Data Registry (NRDR) Dose Index Registry (DIR) with the [employer] (A[employer]). RADIATION OPTIMIZATION: All CT scans at this facility use at least one of these dose optimization te chniques: automated exposure control; mA and/or kV adjustment per patient size (includes targeted exa ms where dose is matched to clinical indication); or iterative reconstruction.
[2023-09-30] VITALS (55 sets, daily range): BP systolic 110–199; BP diastolic 25–97; PULSE 56–78; RESP 16; O2SAT 90–99
[2023-09-30] MEDS: ACETAMINOPHEN 1,000 MG/100 ML BTL 400 MG IVPB (00:05)
[2023-09-30] MEDS: niCARdipine 25 MG in Normal Saline 240 ML 50 MG IV (00:06)
--- NOTE | 2023-09-30 00:08 | DI.VRAD_ITS ---
Addendum created by Juan Pablo Agosto MD on 09/30/2023 12:09:59 AM EDT: THIS REPORT CONTAINS FINDINGS THAT MAY BE CRITICAL TO PATIENT CARE. The findings were verbally communicated via telephone conference with ANDIE HERR at 12:09 AM EDT on 09/30/2023. The findings were acknowledged and understood. Initial report created on 09/30/2023 12:08:10 AM EDT: PROCEDURE INFORMATION: Exam: CT Head Without Contrast Exam date and time: 09/29/2023 11:36 PM Age: 83 years old Clinical indication: Other: Fall, neck pain TECHNIQUE: Imaging protocol: Computed tomography of the head without contrast. COMPARISON: CT HEAD WO 08/05/2023 11:57 AM FINDINGS: Brain: Left occipital hemorrhage/hemorrhagic infarction measuring up to 2.5 cm with mild surrounding edema. No midline shift. Moderate white matter disease Cerebral ventricles: No ventriculomegaly. Paranasal sinuses: Visualized sinuses are unremarkable. No fluid levels. Mastoid air cells: Visualized mastoid air cells are well aerated. Bones/joints: Unremarkable. No acute fracture. Soft tissues: Unremarkable. IMPRESSION: Left occipital hemorrhage/hemorrhagic infarction as noted PROCEDURE INFORMATION: Exam: CT Cervical Spine Without Contrast Exam date and time: 09/29/2023 11:36 PM Age: 83 years old Clinical indication: Other: Fall, neck pain TECHNIQUE: Imaging protocol: Computed tomography of the cervical spine without contrast. COMPARISON: CT HEAD CERVICAL SPINE WO 04/17/2023 2:11 PM FINDINGS: Bones/joints: No acute fracture. Loss of cervical lordosis is presumably on a degenerative basis.No significant disc bulge or herniation. No severe spinal canal stenosis. No significant neural foraminal narrowing. Lungs: Lung apices are normal. Soft tissues: Unremarkable. IMPRESSION: No acute findings. Dictated and Authenticated by: Juan Pablo Agosto MD. Ordering:DARON Crump MD
--- NOTE | 2023-09-30 00:11 | DI.CT_ITS ---
Exam(s) CT CHEST/ABD/PEL WO CT THORACIC LUMBAR SPINE REC EXAM: CT CHEST/ABD/PEL WO and thoracic and lumbar spine recons CLINICAL HISTORY: unwitnessed fall, diffuse midline spinal tendernes TECHNIQUE: Imaging Protocol: Axial computed tomography images with coronal and sagittal reformatted images were created and reviewed COMPARISON: CT CT CHEST/ABD/PEL WO from 04/11/[address] THORACIC LUMBAR SPINE REC from 04/17/[address] CHEST/ABD/PEL WO from 04/17/[address] ABDOMEN PELVIS WO from 06/11/[address] CHEST/ABD/PEL WO from 08/05/[address] ABDOMEN PELVIS WO from 08/07/2023 FINDINGS: CHEST: Tracheobronchial tree: Patent where visualized. Pulmonary parenchyma: No consolidation or dominant measurable mass. No architectural distortion. Mediastinum and Alice: No dominant adenopathy or fluid collection. The esophagus is unremarkable. Thyroid gland: Unremarkable. Pleura: No effusion or pneumothorax. Heart: The heart is not dilated. Coronary artery calcifications are present. There is calcification of the mitral annulus. No pericardial effusion. Aorta: Thoracic aorta non-dilated. Atherosclerotic calcification is present. Lymph nodes: Within normal limits. Bones:Within normal limits for the patient's age. Old healed right rib fractures. There is an old T 12 compression fracture and vertebral plasty. Tubes, Catheters, and Lines: Soft tissues: Unremarkable. Thoracic spine: There are age-appropriate degenerative changes present. The bones are osteopenic. T here is an old T12 compression fracture deformity with evidence of vertebral plasty. No acute fractu re or subluxation is seen in the thoracic spine. ABDOMEN: Liver: Normal density. No measurable mass. Gallbladder and Biliary Tract: No radiodense calculus or dilation. There does appear to be layering s ludge in the gallbladder. Pancreas: Normal density, no abnormal calcifications or inflammatory process. Spleen: Normal. Adrenals: No masses seen. Kidneys: Normal size, contour and axis. No radiodense stones or obstructive uropathy. Stable right re nal cysts. No follow-up is recommended. Abdominal Aorta: Abdominal portion non-dilated. Atherosclerotic calcification is present. Bowel: The patient has a left abdominal wall colostomy. There is a left-sided abdominal wall hernia containing loops of colon and small bowel. No evidence of obstruction or strangulation of the bowel is seen. There is no evidence of bowel wall thickening or pneumatosis. No evidence of appendicitis. The stomach is incompletely distended limiting evaluation. Peritoneal Cavity: No ascites, collection or mesenteric inflammatory response. No free air. Lymph Nodes: Within normal limits. Bones: Within normal limits for the patient's age. Soft Tissues: Please see the above section under bowel. Lumbar spine: The bones are osteopenic. No acute fractures or subluxations are seen in the lumbar sp ine. Age-appropriate degenerative changes are present. The bones are osteopenic. PELVIS: Bladder: Symmetric distention, no gross wall thickening. Several diverticula are seen within the urin yun bladder wall. Reproductive Organs: Status post hysterectomy. Lymph Nodes: Within normal limits. Bones: Within normal limits for the patient's age. IMPRESSION: 1. Examination is limited by lack of IV contrast. 2. No evidence of an acute pulmonary process. 3. No acute abdominal or pelvic organ injury. 4. No acute fracture or subluxation is seen in the thoracic or lumbar spine. RADIATION DOSE DELIVERED: Total DLP Total DLP DATA REPOSITORY: All CT scans at this facility are submitted to the National Radiology Data Registry (NRDR) Dose Index Registry (DIR) with the [employer] (ACR). RADIATION OPTIMIZATION: All CT scans at this facility use at least one of these dose optimization te chniques: automated exposure control; mA and/or kV adjustment per patient size (includes targeted exa ms where dose is matched to clinical indication); or iterative reconstruction.
--- NOTE | 2023-09-30 00:14 | ED.GENADUL_ITS ---
Discharge Plan Disposition Patient Disposition: Transfer-Acute Inpatient Care Specific Acute Inpt Facility: [facility] Condition: Critical Discharge Details Clinical Impression: Dementia, Hemorrhagic stroke, Fall Primary Care Provider: Ariadna Trevino ED Provider: Alisia Snyder Home Meds and New Rx's Prescriptions: No Action polyethylene glycol 3350 [Miralax] 17 gram/dose powder 17 g PO DAILY PRN cyclobenzaprine 5 mg tablet 5 mg PO TID PRN (Reason: muscle spasm) Qty: 15 0RF Rx Instructions: avoid concurrent use with oxycodone monitor for sedation/fall risk, especially during initiation of medication trial sennosides [senna] 8.6 mg tablet 8.6 mg PO BID PRN (Reason: constipation) Qty: 30 5RF Rx Instructions: use one per day to avoid constipation related to opioid medication if constipation symptoms persist, may increase to 1 tab twice daily naloxone [Narcan] 4 mg/actuation spray,non-aerosol 4 mg intranasal Q3M PRN (Reason: opioid overdose) Qty: 2 0RF Rx Instructions: spray 1 dose into ONE nostril; alternate nostrils w each dose until help arrives in case of accidental drug poisoning oxycodone 5 mg tablet 5 mg PO BID MDD 5mg PRN (Reason: severe pain (scale score 7-10)) Qty: 60 0RF levothyroxine 100 mcg tablet 100 mcg PO DAILY Qty: 90 3RF Patient Comments: not taking the way /i should duloxetine 30 mg capsule,delayed release(DR/EC) 30 mg PO DAILY Qty: 30 3RF Hold Instructions: Changed by Provider trazodone 100 mg tablet 100 mg PO QHS Qty: 30 1RF fentanyl 12 mcg/hr patch 72 hour 1 patch transdermal Q72H MDD 12mcg/hr Qty: 10 0RF HPI General Mode of arrival: ambulatory . Date/Time Provider Initiated Documentation: 09/29/23 22:38 . Limitations to Documentation: no limitations . Information obtained by: patient, EMS and old records reviewed . HPI Narrative: 83yo F with hx Alzheimer's, HTN, prior hemmoraghic infarct, cerebral amyloid angiopathy, frequent falls, presenting after a fall. Was getting into bed, fell forward and struck her dresser on the way down. Not sure if she passed out. Has pain all over, no focal pain. No headache, nausea, vomiting, numbness, or weakness. No chest pain or shortness of breath. Was in her usual state of health with no fevers, chills, rash, abdominal pain, or other concerns. Related Data Home Medications Medication Instructions Recorded Confirmed polyethylene glycol 3350 17 17 g PO DAILY PRN 06/05/21 09/30/23 gram/dose oral powder (Miralax) duloxetine 30 mg capsule,delayed 30 mg PO DAILY #30 caps 07/07/23 09/30/23 release cyclobenzaprine 5 mg tablet 5 mg PO TID PRN muscle spasm #15 07/23/23 09/30/23 tabs naloxone 4 mg/actuation nasal 4 mg intranasal Q3M PRN opioid 07/23/23 09/30/23 spray (Narcan) overdose #2 ea oxycodone 5 mg tablet 5 mg PO BID PRN severe pain (scale 07/23/23 09/30/23 score 7-10) #60 tabs sennosides 8.6 mg tablet (senna) 8.6 mg PO BID PRN constipation #30 07/23/23 09/30/23 tabs levothyroxine 100 mcg tablet 100 mcg PO DAILY #90 tabs 08/19/23 09/30/23 trazodone 100 mg tablet 100 mg PO QHS sleep #30 tabs 08/24/23 09/30/23 fentanyl 12 mcg/hr transdermal 1 patch transdermal Q72H #10 ea 09/04/23 09/30/23 patch Previous Rx's Medication Instructions Recorded duloxetine 30 mg capsule,delayed 30 mg PO DAILY #30 caps 07/07/23 release cyclobenzaprine 5 mg tablet 5 mg PO TID PRN muscle spasm #15 07/23/23 tabs naloxone 4 mg/actuation nasal 4 mg intranasal Q3M PRN opioid 07/23/23 spray (Narcan) overdose #2 ea oxycodone 5 mg tablet 5 mg PO BID PRN severe pain (scale 07/23/23 score 7-10) #60 tabs sennosides 8.6 mg tablet (senna) 8.6 mg PO BID PRN constipation #30 07/23/23 tabs levothyroxine 100 mcg tablet 100 mcg PO DAILY #90 tabs 08/19/23 trazodone 100 mg tablet 100 mg PO QHS sleep #30 tabs 08/24/23 fentanyl 12 mcg/hr transdermal 1 patch transdermal Q72H #10 ea 09/04/23 patch Allergies Allergy/AdvReac Type Severity Reaction Status Date / Time banana Allergy Intermediate Other (See Verified 08/19/23 10:32 Comment) cucumber Allergy Intermediate Other (See Verified 08/19/23 10:32 Comment) Iodinated Contrast Media Allergy Intermediate Anaphylaxis Unverified 08/19/23 10:32 chloramphenicol AdvReac Severe KIDNEY Verified 08/19/23 10:32 FAILURE tetracycline AdvReac Severe KIDNEY Verified 08/19/23 10:32 FAILURE melon AdvReac Intermediate Cantaloupe-Abd Verified 08/19/23 10:32 pain, diarrhea ADHESIVE TAPE Allergy Intermediate takes skin Uncoded 08/19/23 10:32 off SUTURE MATERIAL Allergy Intermediate Purluent Uncoded 08/19/23 10:32 Drainage General Stated Complaint: Fall/Non TraumaCriteria JOSHUA: 3 Review of Systems Narrative: see HPI Exam Narrative Exam Narrative: GENERAL: Alert, C-collar in place. SKIN: Warm and well perfused. HEAD: Facial bones without deformities or tenderness. Echymosis to right forehead. EYES: PERRL. No scleral icterus or conjunctival injection. Extraocular muscles intact without nystagmus or diplopia. No proptosis or enophthalmos. EARS: Normal appearing pinnae. No hemotympanum. NOSE: No discharge, tenderness, laxity. No nasal septal hematoma. MOUTH: No malocclusion or trismus. Moist mucus membranes without blood. NECK: Trachea midline. No discolorations or edema. Neck immobilized in cervical collar. CV: Regular rate and rhythm, Normal s1 and s2. No murmurs, rubs, or gallops. PV: Radial pulses 2+ bilaterally and symmetric. Dorsalis pedis pulses 1+ bilaterally and symmetric. 2+ capillary refill. No extremity edema. CHEST: No abrasions or ecchymosis. Chest symmetric with respirations. No chest wall tenderness. Lungs are clear to auscultation bilaterally. ABDOMEN: No ecchymosis or abrasions. Soft, nondistended, nontender. BACK: No abrasions, skin openings, or ecchymosis. Spine with diffuse midline tenderness throughout C, T, and L spine no step offs. PELVIC: Pelvis stable, nontender to lateral compression MSK: No gross deformities . Echymosis to right hip. Skin tear to left hand 5th digit, hemostatic. Linear abrasion to right wrist, hemostatic. Bilateral shoulders TTP and pain with ROM, R > L. No other focal tenderness of extremities. Neuro: ? GCS 15.? PERRL.? EOMI.? Fluent speech, no dysarthria. Motor- 4/5 strength symmetric bilateral upper and lower extremities Sensation- ?Intact to light touch and symmetric multiple dermatomes including upper and lower extremities Coordination- No dysmetria on finger to nose CRANIAL NERVES: II: Pupils equal and reactive, III, IV, : EOM intact, no gaze preference or deviation, no nystagmus. V: normal sensation in V1, V2, and V3 segments bilaterally VII: no asymmetry, no nasolabial fold flattening VIII: normal hearing to speech IX, X: normal palatal elevation, no uvular deviation XI: In c-collar; not tested XII: midline tongue protrusion Course Vital Signs Vital signs: Vital Signs Temperature 36.6 C 09/29/23 22:35 Pulse 66 09/29/23 22:35 Respiratory Rate 16 09/29/23 22:35 Blood Pressure 192/61 H 09/29/23 22:35 Pulse Oximetry 96 09/29/23 22:35 Temperature 36.6 C 09/29/23 22:35 Pulse 57 L 09/30/23 00:10 Pulse 61 09/29/23 23:00 Respiratory Rate 16 09/30/23 00:10 Respiratory Effort Normal, Non-Labored 09/29/23 22:42 Blood Pressure 155/45 H 09/30/23 00:10 Blood Pressure Mean 97 09/30/23 00:06 Blood Pressure Position Supine 09/29/23 22:35 Pulse Oximetry 97 09/30/23 00:10 Pain Level 8 09/29/23 22:35 Lab/Test Results Lab/Test Results: Laboratory Tests Range/Units 09/29/23 22:51 WBC (4.4-10.8) 10^3/uL 6.88 RBC (3.93-5.22) 10^6/uL 4.01 Hgb (11.2-15.7) g/dL 10.1 L Hct (36.0-46.0) % 32.4 L MCV (80-95) fL 81 MCH (27.0-33.0) pg 25.2 L MCHC (32.0-36.0) % 31.2 L RDW (11.7-14.6) % 14.3 Plt Count (130-400) 10^3/uL 247 MPV (8.0-11.0) fL 9.7 Immature Gran % 0.4 Neutrophils % 72.0 Lymphocytes % 13.4 Monocytes % 12.4 Eosinophils % 1.2 Basophils % 0.6 Nucleated RBC % (0.0-0.3) % 0.0 Absolute Neutrophils (1.2-6.7) 10^3/uL 4.96 Absolute Lymphocytes (1.2-3.4) 10^3/uL 0.92 L Absolute Monocytes (0.1-0.8) 10^3/uL 0.85 H Absolute Eosinophils (0.0-0.7) 10^3/uL 0.08 Absolute Basophils (0.0-0.2) 10^3/uL 0.04 PT (9.1-11.1) sec 12.1 H INR (0.9-1.1) 1.2 H APTT (23.6-32.8) sec 26.1 D-Dimer (<500) ng/mlFEU 2845 H Sodium (136-145) mmol/L 136 Potassium (3.5-5.1) mmol/L 3.7 Chloride (98-107) mmol/L 98 Carbon Dioxide (21.0-32.0) mmol/L 27.7 Anion Gap (3-11) mmol/L 10.3 BUN (7-18) mg/dL 12 Creatinine (0.55-1.02) mg/dL 0.9 Est GFR (CKD-EPI 2020) (mL/min/1.73m2) 63.83 Glucose (74-106) mg/dL 93 Calcium (8.5-10.1) mg/dL 8.9 Magnesium (1.8-2.4) mg/dL 2.0 Total Bilirubin (0.2-1.0) mg/dL 0.5 AST (15-37) U/L 16 ALT (14-59) U/L 15 Alkaline Phosphatase (46-116) U/L 84 Troponin I (< or =60) ng/L < 50 Total Protein (6.4-8.2) g/dL 7.4 Albumin (3.4-5.0) g/dL 3.2 L TSH (0.36-3.74) uIU/mL 7.25 H Free T4 (0.76-1.46) ng/dL 1.43 Ethyl Alcohol (<10) mg/dL < 3.0 Medical Decision Making 83yo F with hx Alzheimer's, HTN, hypthyroid, prior hemmoraghic infarct, cerebral amyloid angiopathy, frequent falls, presenting after a fall. Was getting into bed, fell forward and struck her dresser on the way down. No presyncopal symptoms, not sure if she passed out, no neurologic symptoms no chest pain no shortness of breath. Hypertensive on arrival SBP 190's, vital signs otherwise reassuring. EKG with no ST segment or T wave abnormalities to suggest occlusive TN. On exam has scattered echymosis and abrasions including right forehead, right hip. Normal neurologic exam, no focal deficits. CT yao scan independently reviewed; occipital hemmoraghe on my view, imaging read escalated and discussed with [facility] radiologist with concern for hemmoraghic stroke. Started on cardene gtt with rapid improvement in blood pressure, maintain at SBP <140 on 5-[address]. Remainder of CT reassuring with no significant traumatic findings, radiology reads below. Anaphalyxis to IV contrast, non-con scan done. Labs reviewed as below, CBC with chronic anemia unchanged from baseline, CMP with no actionable anboramliteis, TSH elevated with normal T4, troponin negative x 2. Dimer elevated; on review of records sent with patient she was on molnupiravir earlier this month (presume for COVID?) which would explain dimer. Regardless would not get CT at this time (allergy) or anticoagulate (brain bleed) as she is hemodynacmially stable; unable to do VQ scan here. On reassessment continues with good BP control, unchanged neuro exam. Patient states that she does not want CPR or intubation but does want any indicated interventions other than code. [facility] at capacity. Discussed with Dr. Paulino neuro-stroke at [facility] and accepted. Transfered via [facility]. Medical Records Medical records reviewed: Yes I reviewed the patient's medical records. Imaging Data Radiologic Study: Imaging: CT Scan Radiologist's impression: Head: C spine: Chest: Abd/Pelvis: Radiologic Study #2: Imaging: X-Ray Radiologist's impression: L shoulder: R shoulder: L hand: R wrist: Lab Data Lab results reviewed: Yes I reviewed the patient's lab results. Labs: Laboratory Tests Range/Units 09/29/23 09/30/23 22:51 01:30 WBC (4.4-10.8) 10^3/uL 6.88 RBC (3.93-5.22) 10^6/uL 4.01 Hgb (11.2-15.7) g/dL 10.1 L Hct (36.0-46.0) % 32.4 L MCV (80-95) fL 81 MCH (27.0-33.0) pg 25.2 L MCHC (32.0-36.0) % 31.2 L RDW (11.7-14.6) % 14.3 Plt Count (130-400) 10^3/uL 247 MPV (8.0-11.0) fL 9.7 Immature Gran % 0.4 Neutrophils % 72.0 Lymphocytes % 13.4 Monocytes % 12.4 Eosinophils % 1.2 Basophils % 0.6 Nucleated RBC % (0.0-0.3) % 0.0 Absolute Neutrophils (1.2-6.7) 10^3/uL 4.96 Absolute Lymphocytes (1.2-3.4) 10^3/uL 0.92 L Absolute Monocytes (0.1-0.8) 10^3/uL 0.85 H Absolute Eosinophils (0.0-0.7) 10^3/uL 0.08 Absolute Basophils (0.0-0.2) 10^3/uL 0.04 PT (9.1-11.1) sec 12.1 H INR (0.9-1.1) 1.2 H APTT (23.6-32.8) sec 26.1 D-Dimer (<500) ng/mlFEU 2845 H Sodium (136-145) mmol/L 136 Potassium (3.5-5.1) mmol/L 3.7 Chloride (98-107) mmol/L 98 Carbon Dioxide (21.0-32.0) mmol/L 27.7 Anion Gap (3-11) mmol/L 10.3 BUN (7-18) mg/dL 12 Creatinine (0.55-1.02) mg/dL 0.9 Est GFR (CKD-EPI 2020) (mL/min/1.73m2) 63.83 Glucose (74-106) mg/dL 93 Calcium (8.5-10.1) mg/dL 8.9 Magnesium (1.8-2.4) mg/dL 2.0 Total Bilirubin (0.2-1.0) mg/dL 0.5 AST (15-37) U/L 16 ALT (14-59) U/L 15 Alkaline Phosphatase (46-116) U/L 84 Troponin I (< or =60) ng/L < 50 < 50 Total Protein (6.4-8.2) g/dL 7.4 Albumin (3.4-5.0) g/dL 3.2 L TSH (0.36-3.74) uIU/mL 7.25 H Free T4 (0.76-1.46) ng/dL 1.43 Ethyl Alcohol (<10) mg/dL < 3.0 Quality:SDOH Health Related Social Needs: Health related social needs risk of homeless, transpo insecurity, personal safety Critical Care Time Critical Care Time Critical Care Time: Yes Total Critical Care Time: 35 Attestation: Due to a high probability of clinically significant, life threatening deterioration, the patient required my highest level of preparedness to intervene emergently and I personally spent this critical care time directly and personally managing the patient. This critical care time included obtaining a history; examining the patient; pulse oximetry; ordering and review of studies; arranging urgent treatment with development of a management plan; evaluation of patient's response to treatment; frequent reassessment; and, discussions with other providers. This critical care time was performed to assess and manage the high probability of imminent, life-threatening deterioration that could result in multi-organ failure. It was exclusive of separately billable procedures? PFSH All Active Problems (Updated 09/30/23 @ 02:56 by Alisia Snyder MD) Fall (Acute) Hemorrhagic stroke (Acute) Dementia (Chronic) 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 Patient aware that there is higher than recommended dose. Makes informed decision, drug contract with [facility] Chronic pain syndrome (Chronic) Due to chronic back pain, 08/2021-drug contract at [facility], PMS review,11/2021-urine drug screen Using oxycodone for pain mgmt when taking a shower. Essential hypertension (Chronic) Peristomal hernia (Chronic) Had [facility] admit 03/2021 for obstruction. Had ostomy mgmt and hernia improved, but not resolved. GERD (gastroesophageal reflux disease) (Chronic) Cerebral amyloid angiopathy (Chronic) : possible diagnosis re:brain MRI/ followed by Neuro [facility] Dr.Anthony Avalos Urethral caruncle (Chronic) dx by Obgyn Gout (Chronic) Rectovaginal fistula (Chronic) Anemia of chronic disease (Chronic) Constipation by delayed colonic transit (Chronic) Urinary retention with incomplete bladder emptying (Chronic) Adrenal insufficiency (Chronic) Iatrogenic secondary to chronic steroid use, on low-dose chronic steroid Primary osteoarthritis of left knee (Chronic 07/30/15) PMR (polymyalgia rheumatica) (Chronic 01/15/16) DX 2016 : /curtis resp. to Prednisone Osteoporosis (Chronic) Bone density scan : 11/2021, managed by [facility], on prolia Obstructive sleep apnea syndrome (Chronic) after closed head injury pt not using CPAP machine Non-alcoholic fatty liver disease (Chronic) persistent elevated AST echo. 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 Medical History Brain bleed 05/2021 tx at [facility], intra parenchymal left-sided hemorrhage-treated through [facility] T12 burst fracture Compression fracture of body of thoracic vertebra Palliative care patient Perforation of colon as colonoscopy complication Tuberculosis Insomnia Raynaud's disease Excessive sweating (06/02/16) daytime sweating if >74 degrees/ fatigue normal cbc, spep,echocardiogram,sed.rate,cmp Colon polyp (06/28/18) adenoma colon pollyps-1997; none on subsequent colonoscopies; most recent c- scope in 2005 was normal 2017-adenoma Surgical History S/P rotator cuff repair S/P BSO (bilateral salpingo-oophorectomy) S/P appendectomy S/P hysterectomy S/P kyphoplasty H/O partial resection of colon Sigmoid colon resection 06/28/18 S/P tonsillectomy H/O dilation and curettage Laparoscopic, Ovarian Cystectomy B/L EGD - [facility] (~2003) MILD EROSIVE ESOPHAGITIS, NO PINON'S ON BIOPSY Colonoscopy - [facility] ADENOMA COLON POLYPS 1997, NONE ON MULTIPLE SUBSEQUENT COLONOSCOPIES, MOST RECENT C-SCOPE 2005 WAS NORMAL, 2018 - cecal polyp, diverticulosis Family History Mother , in her 80s from pneumonia Heart disease Pneumonia Father , from complications of prostate surgery in his 80s Stroke Personal history of malignant neoplasm Heart disease Brother , aged 68 Alcohol abuse Cirrhosis with alcoholism Grandfather Essential hypertension Heart disease Grandmother Personal history of malignant neoplasm Stroke Grandmother Personal history of malignant neoplasm Son , from his drinking/SA; her oldest child Alcohol abuse Social History Smoking/Tobacco Use Status: Former Tobacco Use Smoking risk assessment performed?: Yes Alcohol Intake: current Alcohol Intake frequency: holidays/special occasions only Alcohol type: hard liquor Drug use: Never Substance use type: does not use Counseling given: No Household members: other Details: 2 Housing: house 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
--- NOTE | 2023-09-30 00:59 | DI.VRAD_ITS ---
PROCEDURE INFORMATION: Exam: CT Chest Without Contrast; Diagnostic Exam date and time: 09/29/2023 11:39 PM Age: 83 years old Clinical indication: Other: Unwitnessed fall, diffuse midline spinal tendernes TECHNIQUE: Imaging protocol: Diagnostic computed tomography of the chest without contrast. COMPARISON: CT CHEST/ABD/PEL WO 08/05/2023 12:00 PM FINDINGS: Lungs: Mild peripheral reticulation. No consolidation. No rounded ground-glass opacity. Small cysts or pneumatoceles are noted at the right lung base. Pleural spaces: Unremarkable. No pneumothorax. No pleural effusion. Heart: No cardiomegaly. No pericardial effusion. Extensive mitral and aortic annular calcifications. Moderate coronary artery calcifications. Lymph nodes: Unremarkable. No enlarged lymph nodes. Vasculature: Negative for aneurysm in the thoracic aorta. Mild plaque is noted in the thoracic aorta. Bones/joints: No acute compression fractures. A treated compression fracture is noted at T12, with severe loss of height and methylmethacrylate. Old rib fractures are noted on the right. Soft tissues: No chest wall fluid collections. IMPRESSION: No acute traumatic injury in the chest. PROCEDURE INFORMATION: Exam: CT Abdomen And Pelvis Without Contrast Exam date and time: 09/29/2023 11:39 PM Age: 83 years old Clinical indication: Other: Unwitnessed fall, diffuse midline spinal tendernes TECHNIQUE: Imaging protocol: Computed tomography of the abdomen and pelvis without contrast. COMPARISON: CT ABDOMEN PELVIS WO 08/07/2023 6:57 PM FINDINGS: Lungs: Please see CT chest dictated separately. Liver: Unremarkable noncontrast liver imaging. Gallbladder and bile ducts: Distended gallbladder. Sludge and/or noncalcified stones are noted in the gallbladder. No inflammatory change. No ductal dilatation. Pancreas: Normal. No ductal dilation. Spleen: Normal. No splenomegaly. Adrenal glands: Normal. No mass. Kidneys and ureters: Negative for hydronephrosis. Ureters are not dilated. No stones are observed. Stomach and bowel: Collapsed stomach. Nondilated small bowel. Loops of small bowel and colon extend through a left abdominal wall hernia. No acute inflammatory change. Mild distal colonic diverticula. Unremarkable rectal stump. Appendix: No evidence of appendicitis. Intraperitoneal space: No free-fluid. No free air. No abscess. Vasculature: Moderate vascular calcifications. Negative for abdominal aortic aneurysm. Renal and mesenteric artery stenosis considered. Lymph nodes: Unremarkable. No enlarged lymph nodes. Urinary bladder: Mildly distended. No significant wall thickening. Diverticula are noted at the right bladder wall. No stones are observed. Reproductive: The uterus is surgically absent. Negative for adnexal mass or cyst. Bones/joints: No lumbar compression fractures. Moderate degenerative disc disease and facet arthropathy. Unremarkable pelvis and sacrum. Soft tissues: Large left lower quadrant abdominal wall hernia is present, associated with the colostomy, similar to previous. Additional scar tissue is noted in the abdominal wall. There are no abdominal wall fluid collections. IMPRESSION: No acute traumatic injury in the abdomen/pelvis. Dictated and Authenticated by: Hadley Dalton MD. Ordering:DARON Crump MD
--- NOTE | 2023-09-30 01:10 | DI.VRAD_ITS ---
PROCEDURE INFORMATION: Exam: XR Right Shoulder Exam date and time: 09/29/2023 11:12 PM Age: 83 years old Clinical indication: Other: Anterior right shoulder tenderness after fall TECHNIQUE: Imaging protocol: Radiologic exam of the right shoulder. Views: 2 or more views. COMPARISON: CT CHEST/ABD/PEL WO 08/05/2023 12:00 PM FINDINGS: Bones/joints: Negative for fracture or dislocation. Normal acromioclavicular alignment. Acromial humeral space maintained. No significant glenohumeral narrowing. Rib fractures are noted on the right and appear old. Soft tissues: Negative for soft tissue air. No foreign bodies observed. Visualized lung is clear. IMPRESSION: No acute osseous abnormality. If symptoms persist, follow-up imaging is advised. Dictated and Authenticated by: Hadley Dalton MD. Ordering:DARON Crump MD
--- NOTE | 2023-09-30 01:15 | DI.VRAD_ITS ---
PROCEDURE INFORMATION: Exam: XR Left Shoulder Exam date and time: 09/29/2023 11:14 PM Age: 83 years old Clinical indication: Other: Anterior left shoulder tenderness after fall TECHNIQUE: Imaging protocol: Radiologic exam of the left shoulder. Views: 2 or more views. COMPARISON: CT CHEST/ABD/PEL WO 08/05/2023 12:00 PM FINDINGS: Bones/joints: Negative for fracture or dislocation. Resection or other widening of the acromioclavicular joint is observed. Acromial humeral space maintained. No significant glenohumeral narrowing. Soft tissues: Negative for soft tissue air. No foreign bodies observed. Visualized lung is clear. IMPRESSION: No acute osseous abnormality. If symptoms persist, follow-up imaging is advised. Dictated and Authenticated by: Hadley Dalton MD. Ordering:DARON Crump MD
--- NOTE | 2023-09-30 01:17 | DI.VRAD_ITS ---
PROCEDURE INFORMATION: Exam: XR Left Hand Exam date and time: 09/29/2023 11:28 PM Age: 83 years old Clinical indication: Other: Unwitnessed fall, lac to 5th digit with ttp TECHNIQUE: Imaging protocol: Radiologic exam of the left hand. Views: 3 or more views. COMPARISON: US EXTREMITY VENOUS BI 06/20/2021 3:10 PM FINDINGS: Bones/joints: No acute fracture observed. No dislocation. Moderate-severe joint space narrowing is observed throughout the interphalangeal joints. Central erosions are observed at the 3rd finger distal interphalangeal joint. Soft tissues: No soft tissue air. No radiopaque foreign bodies. IMPRESSION: No acute osseous abnormality. Findings of erosive osteoarthritis noted. If symptoms persist, follow-up imaging is advised. Dictated and Authenticated by: Hadley Dalton MD. Ordering:DARON Crump MD
--- NOTE | 2023-09-30 01:18 | DI.VRAD_ITS ---
PROCEDURE INFORMATION: Exam: XR Right Wrist Exam date and time: 09/29/2023 11:24 PM Age: 83 years old Clinical indication: Other: Unwitnessed fall, lac to right wrist with tenderness TECHNIQUE: Imaging protocol: Radiologic exam of the right wrist. Views: 3 or more views. COMPARISON: US EXTREMITY VENOUS BI 06/20/2021 3:10 PM FINDINGS: Bones/joints: There are no acute fractures observed. The scaphoid is not well evaluated on these projections. A normal cleft at the scaphoid waist is suspected. There is mild narrowing at the radiocarpal joint. The scapholunate interval is normal. There are no bony erosions observed. Soft tissues: Mild soft tissue swelling is noted around the wrist. No soft tissue gas. No radiopaque foreign bodies. IMPRESSION: No acute osseous abnormality. If symptoms persist, follow-up imaging is advised. Dictated and Authenticated by: Hadley Dalton MD. Ordering:DARON Crump MD
[2023-09-30 01:53] LABS: Troponin I < 50 ng/L (< or =60)
--- NOTE | 2023-09-30 02:10 | DI.VRAD_ITS ---
PROCEDURE INFORMATION: Exam: CT Thoracic Spine Without Contrast Exam date and time: 09/29/2023 11:39 PM Age: 83 years old Clinical indication: Other: Fall diffuse midline tenderness TECHNIQUE: Imaging protocol: Computed tomography of the thoracic spine without contrast. COMPARISON: CT THORACIC LUMBAR SPINE REC 04/17/2023 2:22 PM FINDINGS: Bones/joints: No acute fracture. A severe compression fracture at T12 is unchanged. Retropulsion of 7 mm noted at T12, with mild narrowing of the spinal canal, unchanged. Methylmethacrylate has been placed at the T12 level posteriorly, similar to previous. A prominent Schmorl's node is present at the T11 superior endplate, unchanged. Mild disc space narrowing and enthesophyte formation are present at several levels in the midthoracic spine. There is no anterolisthesis or retrolisthesis. Thoracic kyphosis is mildly exaggerated. Moderate degenerative changes are present in the cervical spine, particularly at C7-T1 on the left. Soft tissues: No paraspinal fluid collections are observed. IMPRESSION: No acute osseous abnormality. If symptoms persist, follow-up imaging is advised. PROCEDURE INFORMATION: Exam: CT Lumbar Spine Without Contrast Exam date and time: 09/29/2023 11:39 PM Age: 83 years old Clinical indication: Other: Fall diffuse midline tenderness TECHNIQUE: Imaging protocol: Computed tomography of the lumbar spine without contrast. COMPARISON: CT THORACIC LUMBAR SPINE REC 04/17/2023 2:22 PM FINDINGS: Bones/joints: There are no acute fractures in the lumbar spine. Hypertrophy is noted at the spinous processes, with articulation and pseudoarthrosis between the spinous processes throughout the lumbar spine. Moderate multilevel facet arthropathy is noted. Mild disc space narrowing is noted at L4-L5 and L5-S1. Mild degenerative anterolisthesis is noted at L5-S1, without pars defects, similar to previous. There are no acute fractures in the sacrum. Vasculature: Moderate-severe vascular calcifications are again noted in the abdominal aorta. Stenosis is suspected in the aorta near the level of the renal arteries. Soft tissues: No paraspinal hematoma observed. The psoas muscles are symmetric and normal. The posterior paraspinal muscles are mildly atrophic. IMPRESSION: No acute osseous abnormality. If symptoms persist, follow-up imaging is advised. Dictated and Authenticated by: Hadley Dalton MD. Ordering:DARON Crump MD
[2023-09-30] MEDS: niCARdipine 25 MG in Normal Saline 240 ML 75 MG IV (03:18)
--- NOTE | 2023-09-30 03:48 | NUR.NOTE ---
report called to [facility] [id number] Bed 1 now
== END 2023-09-30 03:49 | disposition short-term general hospital (02) ==
PROVIDERS: Emergency Provider Student in an Organized Health Care Education/Training Program; PCP Nurse Practitioner Family
DX: I62.9 Nontraumatic intracranial hemorrhage, unspecified (principal); G30.1 Alzheimer's disease with late onset; F02.80 Dementia in other diseases classified elsewhere, unspecified severity, without behavioral disturbance, psychotic disturbance, mood disturbance, and anxiety; I10 Essential (primary) hypertension; M35.3 Polymyalgia rheumatica; W01.190A Fall on same level from slipping, tripping and stumbling with subsequent striking against furniture, initial encounter; Y93.89 Activity, other specified; Y92.018 Other place in single-family (private) house as the place of occurrence of the external cause
CPT/HCPCS: 36415; 71250; 80053; 93005; 96365; 96366; 96375; 96376; 99285; 70450; 72125; 73030; 73110; 73130; 74176; 80320; 83735; 84439; 84443; 84484; 85025; 85379; 85610; 85730; 93010; J0131; J2404; J3475

== ENCOUNTER 2023-10-02 18:41 | Emergency (ER) | payer MEDICARE, SELFPAY ==
[2023-10-02 18:48] VITALS: PULSE 53; RESP 16; TEMP 36.9; O2SAT 99
[2023-10-02 18:54] VITALS: BP 178/40
--- NOTE | 2023-10-02 19:05 | W.ED.GENAD ---
Discharge Plan Disposition Patient Disposition: Home Condition: Stable Discharge Details Clinical Impression: Fajardo catheter status Primary Care Provider: Ariadna Trevino ED Provider: Huang Guzman Home Meds and New Rx's Prescriptions: New nystatin 100,000 unit/gram powder 1 applic topical BID 10 Days Qty: 15 0RF nystatin 100,000 unit/gram powder 1 applic topical BID 10 Days Qty: 30 0RF Continued polyethylene glycol 3350 [Miralax] 17 gram/dose powder 17 g PO DAILY PRN cyclobenzaprine 5 mg tablet 5 mg PO TID PRN (Reason: muscle spasm) Qty: 15 0RF Rx Instructions: avoid concurrent use with oxycodone monitor for sedation/fall risk, especially during initiation of medication trial sennosides [senna] 8.6 mg tablet 8.6 mg PO BID PRN (Reason: constipation) Qty: 30 5RF Rx Instructions: use one per day to avoid constipation related to opioid medication if constipation symptoms persist, may increase to 1 tab twice daily naloxone [Narcan] 4 mg/actuation spray,non-aerosol 4 mg intranasal Q3M PRN (Reason: opioid overdose) Qty: 2 0RF Rx Instructions: spray 1 dose into ONE nostril; alternate nostrils w each dose until help arrives in case of accidental drug poisoning oxycodone 5 mg tablet 5 mg PO BID MDD 5mg PRN (Reason: severe pain (scale score 7-10)) Qty: 60 0RF levothyroxine 100 mcg tablet 100 mcg PO DAILY Qty: 90 3RF Patient Comments: not taking the way /i should trazodone 100 mg tablet 100 mg PO QHS Qty: 30 1RF fentanyl 12 mcg/hr patch 72 hour 1 patch transdermal Q72H MDD 12mcg/hr Qty: 10 0RF No Action duloxetine [Cymbalta] 20 mg capsule,delayed release(DR/EC) 20 mg PO DAILY lisinopril 20 mg tablet 20 mg PO DAILY Discharge Instructions Instructions: Fajardo Catheter Placement and Care (ED), How to Change a Catheter Drainage Bag (DC) Additional Instructions: You were seen in the emergency department for your need for a Fajardo catheter to be placed. This should have been done by [facility] consulting with [facility] and prior to your discharge there but we are happy to provide you with Fajardo catheter at today's visit. Your intracranial hemorrhage appeared stable throughout your visit at [facility] and I did review their records. Please return to the emergency department for any emergent concerns including severe changes to mental status, fever, chest pain, palpitations, intractable nausea or vomiting, obstruction of urinary catheter. Referrals: Ariadna Trevino [Primary Care Provider] - [facility] General Date/Time Provider Initiated Documentation: 10/02/23 18:54. HPI Narrative: 83 year-old female presents to ED today by POV/wheelchair with a chief complaint of discharged from [facility] today to return to [facility] after a stable parenchymal ICH- but had been ordered to have straight sticks done, and the facility cannot do this, so she was dropped off at our ER. Quality described as dementia at baseline, but states continued headache- generalized, no radiation to chest pain, nausea/vomiting, fever. Severity is described as unable to quantify. Palliating factors include nothing specific. Provoking factors include nothing specific. 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 Patient not anticoagulated. Related Data Home Medications Medication Instructions Recorded Confirmed polyethylene glycol 3350 17 17 g PO DAILY PRN 06/05/21 10/02/23 gram/dose oral powder (Miralax) cyclobenzaprine 5 mg tablet 5 mg PO TID PRN muscle spasm #15 07/23/23 10/02/23 tabs naloxone 4 mg/actuation nasal 4 mg intranasal Q3M PRN opioid 07/23/23 10/02/23 spray (Narcan) overdose #2 ea oxycodone 5 mg tablet 5 mg PO BID PRN severe pain (scale 07/23/23 10/02/23 score 7-10) #60 tabs sennosides 8.6 mg tablet (senna) 8.6 mg PO BID PRN constipation #30 07/23/23 10/02/23 tabs levothyroxine 100 mcg tablet 100 mcg PO DAILY #90 tabs 08/19/23 10/02/23 trazodone 100 mg tablet 100 mg PO QHS sleep #30 tabs 08/24/23 10/02/23 fentanyl 12 mcg/hr transdermal 1 patch transdermal Q72H #10 ea 09/04/23 10/02/23 patch duloxetine 20 mg capsule,delayed 20 mg PO DAILY 10/02/23 10/02/23 release (Cymbalta) lisinopril 20 mg tablet 20 mg PO DAILY 10/02/23 10/02/23 nystatin 100,000 unit/gram topical 1 applic topical BID 10 days #30 10/02/23 powder grams nystatin 100,000 unit/gram topical 1 applic topical BID yeast 10 days 10/02/23 powder #15 grams Previous Rx's Medication Instructions Recorded cyclobenzaprine 5 mg tablet 5 mg PO TID PRN muscle spasm #15 07/23/23 tabs naloxone 4 mg/actuation nasal 4 mg intranasal Q3M PRN opioid 07/23/23 spray (Narcan) overdose #2 ea oxycodone 5 mg tablet 5 mg PO BID PRN severe pain (scale 07/23/23 score 7-10) #60 tabs sennosides 8.6 mg tablet (senna) 8.6 mg PO BID PRN constipation #30 07/23/23 tabs levothyroxine 100 mcg tablet 100 mcg PO DAILY #90 tabs 08/19/23 trazodone 100 mg tablet 100 mg PO QHS sleep #30 tabs 08/24/23 fentanyl 12 mcg/hr transdermal 1 patch transdermal Q72H #10 ea 09/04/23 patch nystatin 100,000 unit/gram topical 1 applic topical BID 10 days #30 10/02/23 powder grams nystatin 100,000 unit/gram topical 1 applic topical BID yeast 10 days 10/02/23 powder #15 grams Allergies Allergy/AdvReac Type Severity Reaction Status Date / Time banana Allergy Intermediate Other (See Verified 10/02/23 18:54 Comment) cucumber Allergy Intermediate Other (See Verified 10/02/23 18:54 Comment) Iodinated Contrast Media Allergy Intermediate Anaphylaxis Unverified 10/02/23 18:54 chloramphenicol AdvReac Severe KIDNEY Verified 10/02/23 18:54 FAILURE tetracycline AdvReac Severe KIDNEY Verified 10/02/23 18:54 FAILURE melon AdvReac Intermediate Cantaloupe-Abd Verified 10/02/23 18:54 pain, diarrhea ADHESIVE TAPE Allergy Intermediate takes skin Uncoded 10/02/23 18:54 off SUTURE MATERIAL Allergy Intermediate Purluent Uncoded 10/02/23 18:54 Drainage General Stated Complaint: GenMedical JOSHUA: 4 Review of Systems All systems reviewed & are unremarkable except as noted in HPI and below Exam Narrative Exam Narrative: GENERAL APPEARANCE: Well-nourished, non-toxic, awake and alert, atraumatic, no acute distress. SKIN: Warm, pink, dry, intact, without rashes/lesions/ulcerations. HEAD: Normocephalic, atraumatic- resolving ecchymosis to R forehead, normal hair distribution for gender/age. EYES: Pupils PERRLA, EOMs intact without nystagmus, normal conjunctiva, no exudates on lids/lashes. ENT: Nares patent, no circumoral cyanosis, no facial swelling NECK: Supple, trachea midline, painless cervical ROM. LUNGS/CHEST: Non-labored respirations, normal A/P diameter, symmetrical expansion, no chest wall deformity HEART (CV/PV): Regular rate and rhythm without murmur, no peripheral edema, no JVD. ABDOMEN: Soft, non-distended, no guarding, no tenderness- does have erythema and rash consistent with orquidea suprapubically. MSK: Normal ROM, no swelling/deformity to bilateral UEs or LEs, moving all extremities without weakness, no cyanosis, spine midline without tenderness, normal curvature. NEURO: Mental Status AAOx4 - alert to person, place, time, events No facial droop, no forehead involvement. Motor: No focal weakness - strength 5/5 in bilateral UEs and LEs, proximal and distal, symmetric. Sensory: sensation intact to light touch globally. Gait NT. PSYCH: euthymic, cooperative, pleasant, appropriate speech Course Vital Signs Vital signs: Vital Signs Temperature 36.9 C 10/02/23 18:48 Pulse 53 L 10/02/23 18:48 Respiratory Rate 16 10/02/23 18:48 Pulse Oximetry 99 10/02/23 18:48 Temperature 36.9 C 10/02/23 18:48 Temperature Source Oral 10/02/23 18:48 Pulse 53 L 10/02/23 18:48 Respiratory Rate 16 10/02/23 18:48 Respiratory Effort Normal 10/02/23 18:53 Blood Pressure 178/40 H 10/02/23 18:54 Blood Pressure Position Sitting 10/02/23 18:48 Pulse Oximetry 99 10/02/23 18:48 Oxygen Delivery Method Room Air 10/02/23 18:48 Oxygen Flow Rate 0 10/02/23 18:48 Medical Decision Making This dictation utilizes [id number] dictation software and may contain unedited grammatical errors. 83 y/o F presents to ED today with a chief complaint of need for fajardo catheter to be received at facility after [facility] discharge directed straight sticks that facility cannot perform- they were diverted here to our ED. No change in mentation, resolving ecchymosis to R forehead. Patients' medical history: History of intraparenchymal brain bleed recently discharged, history of T12 burst fracture, palliative care patient, insomnia, Alzheimer's, multiple fractures of ribs of right side, hypertension, GERD, RIZWAN. Family and social history: Lives at assisted living facility, no exercise. Pertinent exam findings / vital signs include yeast infection skin changes suprapubically, otherwise benign without acute changes since her discharge earlier today- resolving ecchymosis R forehead. Differential / pathologies of concern include need for fajardo catheter for safe disposition home from her admitted facility of [facility], no acute complaints or changes since discharge earlier today. Diagnostic studies of: -none. Interventions of: -Insertion of Fajardo catheter. ED Course/Assessment/Plan: 83-year-old female had a history of brain bleed and was admitted and transferred to [facility] days prior, she was discharged from that facility today with intent to return back to [facility] in her assisted living facility with instructions to straight stick her for urine output but the facility cannot provide this service and needs a Fajardo catheter bag placed. They diverted her to us. She has had no acute changes since being discharged earlier today and experienced no acute instability while here in the department and was placed in a Fajardo catheter, it was noted that she had skin changes consistent with Orquidea and I did send a prescription for nystatin powder. Findings not consistent with urinary retention. Disposition of Fajardo Catheter Status. Patient verbalized understanding of the plan and return to ED criteria and engaged in shared decision making. Medical Records Medical records reviewed: Yes I reviewed the patient's medical records. 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 Patient aware that there is higher than recommended dose. Makes informed decision, drug contract with [facility] Chronic pain syndrome (Chronic) Due to chronic back pain, 08/2021-drug contract at [facility], V PMS review,11/2021-urine drug screen Using oxycodone for pain mgmt when taking a shower. Essential hypertension (Chronic) Peristomal hernia (Chronic) [facility] admit 03/2021 for obstruction. Had ostomy mgmt and hernia improved, but not resolved. GERD (gastroesophageal reflux disease) (Chronic) Cerebral amyloid angiopathy (Chronic) : possible diagnosis re:brain MRI/ followed by Neuro [facility] Dr.Anthony Avalos Urethral caruncle (Chronic) dx by Obgyn Gout (Chronic) Rectovaginal fistula (Chronic) Anemia of chronic disease (Chronic) Constipation by delayed colonic transit (Chronic) Urinary retention with incomplete bladder emptying (Chronic) Adrenal insufficiency (Chronic) Iatrogenic secondary to chronic steroid use, on low-dose chronic steroid Primary osteoarthritis of left knee (Chronic 07/30/15) PMR (polymyalgia rheumatica) (Chronic 01/15/16) DX 2016 : /curtis resp. to Prednisone Osteoporosis (Chronic) Bone density scan : 11/2021, managed by Rhe[facility], on prolia Obstructive sleep apnea syndrome (Chronic) after closed head injury pt not using CPAP machine Non-alcoholic fatty liver disease (Chronic) persistent elevated AST echo. 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 Medical History Brain bleed 05/2021 tx at [facility], intra parenchymal left-sided hemorrhage-treated through [facility] T12 burst fracture Compression fracture of body of thoracic vertebra Palliative care patient Perforation of colon as colonoscopy complication Tuberculosis Insomnia Raynaud's disease Excessive sweating (06/02/16) daytime sweating if >74 degrees/ fatigue normal cbc, spep,echocardiogram,sed.rate,cmp Colon polyp (06/28/18) adenoma colon pollyps-1997; none on subsequent colonoscopies; most recent c-scope in 2005 was normal 2017-adenoma Surgical History S/P rotator cuff repair S/P BSO (bilateral salpingo-oophorectomy) S/P appendectomy S/P hysterectomy S/P kyphoplasty H/O partial resection of colon Sigmoid colon resection 06/28/18 S/P tonsillectomy H/O dilation and curettage Laparoscopic, Ovarian Cystectomy B/L EGD - [facility] (~2003) MILD EROSIVE ESOPHAGITIS, NO PINON'S ON BIOPSY Colonoscopy - [facility] ADENOMA COLON POLYPS 1997, NONE ON MULTIPLE SUBSEQUENT COLONOSCOPIES, MOST RECENT C-SCOPE 2005 WAS NORMAL, 2018 - cecal polyp, diverticulosis Family History Mother , in her 80s from pneumonia Heart disease Pneumonia Father , from complications of prostate surgery in his 80s Stroke Personal history of malignant neoplasm Heart disease Brother , aged 68 Alcohol abuse Cirrhosis with alcoholism Grandfather Essential hypertension Heart disease Grandmother Personal history of malignant neoplasm Stroke Grandmother Personal history of malignant neoplasm Son , from his drinking/SA; her oldest child Alcohol abuse Social History Smoking/Tobacco Use Status: Former Tobacco Use Smoking risk assessment performed?: Yes Alcohol Intake: current Alcohol Intake frequency: holidays/special occasions only Alcohol type: hard liquor Drug use: Never Substance use type: does not use Counseling given: No Household members: other Details: 2 Housing: house 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
[2023-10-02 20:03] VITALS: BP 178/57; PULSE 78; RESP 18; TEMP 37; O2SAT 98
== END 2023-10-02 20:41 | disposition home or self-care (01) ==
PROVIDERS: Emergency Provider Physician Assistant; PCP Nurse Practitioner Family
DX: G30.1 Alzheimer's disease with late onset (principal); Z97.8 Presence of other specified devices; Z91.81 History of falling; F02.80 Dementia in other diseases classified elsewhere, unspecified severity, without behavioral disturbance, psychotic disturbance, mood disturbance, and anxiety; R51.9 Headache, unspecified
CPT/HCPCS: 51702; 99283

== ENCOUNTER 2023-10-04 15:11 | Outpatient (REF) | payer MEDICARE, SELFPAY ==
[2023-10-04 15:34] LABS: Abs Immature Grans 0.01 10^3/uL (0.0-0.06); Absolute Basophil Count 0.03 10^3/uL (0.0-0.2); Absolute Eosinophil Count 0.11 10^3/uL (0.0-0.7); Absolute Monocyte Count 0.52 10^3/uL (0.1-0.8); Absolute Neutrophil Count 2.87 10^3/uL (1.2-6.7); Basophils % 0.6; Eosinophils % 2.3; HGB 9.9 g/dL (11.2-15.7); Immature Grans % 0.2; Lymphocytes % 25.3; MCH 25.3 pg (27.0-33.0); MCV 84 fL (80-95); MPV 10.7 fL (8.0-11.0); Neutrophils % 60.6; Platelet Count 244 10^3/uL (130-400); RBC 3.92 10^6/uL (3.93-5.22); RDW 15.2 % (11.7-14.6); RDW-SD 45.7 fL; WBC 4.74 10^3/uL (4.4-10.8)
[2023-10-04 15:35] LABS: Bilirubin Negative (Negative); Blood Large (Negative); Clarity Clear (Clear); Glucose Negative (Negative); Ketones Negative (Negative); Leukocyte Esterase Small (Negative); Nitrite Negative (Negative); Urobilinogen 0.2 mg/dL (Up to 0.2)
[2023-10-04 15:43] LABS: Bacteria Rare HPF (Negative); C & S Indicated? Yes; Casts Negative LPF (Negative); Crystals Rare Amorphous HPF (Negative); Epithelial Cells Rare HPF (Negative); Mucus Negative (Negative)
[2023-10-04 15:58] LABS: ALT 18 U/L (14-59); AST 22 U/L (15-37); Albumin 3.2 g/dL (3.4-5.0); Alkaline Phosphatase 89 U/L (46-116); Anion Gap 8.6 mmol/L (3-11); BUN 8 mg/dL (7-18); Bilirubin, Total 0.3 mg/dL (0.2-1.0); CO2 25.4 mmol/L (21.0-32.0); CREATININE 0.9 mg/dL (0.55-1.02); Chloride 104 mmol/L (98-107); Estimated GFR 63.83 (mL/min/1.73m2); Ferritin 43 ng/mL (8-252); Glucose 134 mg/dL (74-106); Sodium 138 mmol/L (136-145); Total Protein 6.8 g/dL (6.4-8.2)
[2023-10-04 16:07] LABS: Total Iron Binding Capacity 312 ug/dL (250-450)
[2023-10-04 16:40] LABS: Vitamin D 25 Total 39.1 ng/mL (30-100)
[2023-10-04 16:49] LABS: COMMENT (LAB VIEW ONLY) 65.54 mg/dL
[2023-10-04 17:02] LABS: Microalb ug/mg Crea 167.5 ug/mg Cr
== END 2023-10-04 15:12 | disposition home or self-care (01) ==
LOC: NCHCN 15:11
PROVIDERS: PCP Nurse Practitioner Family; Visit Provider Nurse Practitioner Family
DX: K76.0 Fatty (change of) liver, not elsewhere classified (principal); M81.0 Age-related osteoporosis without current pathological fracture
CPT/HCPCS: 80053; 82306; 87077; 81003; 81015; 82043; 82570; 82728; 83550; 85025; 87086; 87186

== ENCOUNTER 2023-10-08 15:22 | Outpatient (REF) | payer MEDICARE, SELFPAY ==
[2023-10-08 16:17] LABS: Uric Acid 7.5 mg/dL (2.6-6.0)
== END 2023-10-08 15:23 | disposition home or self-care (01) ==
LOC: NCHCN 15:22
PROVIDERS: PCP Nurse Practitioner Family; Visit Provider Nurse Practitioner Family
DX: G89.4 Chronic pain syndrome (principal); E79.0 Hyperuricemia without signs of inflammatory arthritis and tophaceous disease
CPT/HCPCS: 84550

== ENCOUNTER 2023-10-12 16:56 | Outpatient (REF) | payer MEDICARE, SELFPAY ==
[2023-10-12 18:29] LABS: Anion Gap 9.4 mmol/L (3-11); BUN 12 mg/dL (7-18); CO2 27.6 mmol/L (21.0-32.0); CREATININE 0.9 mg/dL (0.55-1.02); Calcium 9.1 mg/dL (8.5-10.1); Chloride 104 mmol/L (98-107); Estimated GFR 63.83 (mL/min/1.73m2); Glucose 127 mg/dL (74-106); Potassium 4.1 mmol/L (3.5-5.1); Sodium 141 mmol/L (136-145)
== END 2023-10-12 16:57 | disposition home or self-care (01) ==
LOC: NCHCN 16:56
PROVIDERS: PCP Nurse Practitioner Family; Visit Provider Nurse Practitioner Family
DX: I10 Essential (primary) hypertension (principal)
CPT/HCPCS: 80048

== ENCOUNTER → 2023-10-13 13:39 | Outpatient (BNVA) | payer MEDICARE, SELFPAY | PROVIDERS: PCP Nurse Practitioner Family; Referring Provider Nurse Practitioner Family; Visit Provider Psychiatry & Neurology Neurology | DX: I61.9 Nontraumatic intracerebral hemorrhage, unspecified (principal); E85.4 Organ-limited amyloidosis; I68.0 Cerebral amyloid angiopathy; F03.90 Unspecified dementia, unspecified severity, without behavioral disturbance, psychotic disturbance, mood disturbance, and anxiety | CPT/HCPCS: 99215; G2212 ==

== ENCOUNTER 2023-10-15 13:45 | Outpatient (REF) | payer MEDICARE, SELFPAY ==
[2023-10-15 16:07] LABS: Bilirubin Negative (Negative); Blood Trace-intact (Negative); Clarity Cloudy (Clear); Glucose Negative (Negative); Ketones Negative (Negative); Leukocyte Esterase Large (Negative); Nitrite Negative (Negative); Specific Gravity 1.015 (1.005-1.025); Urobilinogen 0.2 mg/dL (Up to 0.2); pH 5.5 (5-8)
[2023-10-15 16:38] LABS: WBC >50 HPF (0-5)
[2023-10-15 16:39] LABS: C & S Indicated? Yes
== END 2023-10-15 13:46 | disposition home or self-care (01) ==
LOC: NCHCN 13:45
PROVIDERS: PCP Nurse Practitioner Family; Visit Provider Nurse Practitioner Family
DX: R32 Unspecified urinary incontinence (principal); R82.998 Other abnormal findings in urine
CPT/HCPCS: 87077; 81003; 81015; 87086; 87186

== ENCOUNTER 2023-10-30 10:33 | Outpatient (REF) | payer MEDICARE, SELFPAY ==
[2023-10-30 15:17] LABS: Calculated LDL 76 mg/dL (<100); Cholesterol 136 mg/dL (<200); HDL Cholesterol 44 mg/dL (40-60); TSH (W/Ref FT4) 0.19 uIU/mL (0.36-3.74); Triglyceride 81 mg/dL (<150)
[2023-10-30 15:54] LABS: FREE T4 1.87 ng/dL (0.76-1.46)
== END 2023-10-30 10:34 | disposition home or self-care (01) ==
LOC: NCHCN 10:33
PROVIDERS: PCP Nurse Practitioner Family; Visit Provider Nurse Practitioner Family
DX: E03.9 Hypothyroidism, unspecified (principal); I10 Essential (primary) hypertension
CPT/HCPCS: 80061; 84439; 84443

== ENCOUNTER 2023-11-10 08:47 | Emergency (ER) | payer MEDICARE, SELFPAY ==
[2023-11-10] VITALS (36 sets, daily range): BP systolic 131–193; BP diastolic 38–114; PULSE 47–78; RESP 11–22; TEMP 36.9; O2SAT 89–99
--- NOTE | 2023-11-10 08:45 | RT.EKG_ITS ---
APPROVED REPORT Exam: Resting ECG Reason for Exam: syncope Patient Location: E HR:53 bpm ECG Measurements Heart Rate 53 AXIS NC 158 P -36 QRSd 115 QRS 57 QT 604 T 263 QTc 568 Conclusion Sinus bradycardia...rate< 60 Incomplete right bundle branch block...QRSd >112, terminal axis(90,270) LVH with IVCD and secondary repol abnrm...multi-criteria, wQRSd, abnr ST-T Prolonged QT interval...QTc >500mS sinus bradycardia, normal axis, normal intervals, inferior lateral t wave inversion unchanged likely secondary to LVH
--- NOTE | 2023-11-10 09:00 | DI.CT_ITS ---
Exam(s) CT HEAD WO EXAM: CT HEAD WO CLINICAL HISTORY: syncope. hit head. TECHNIQUE: Imaging Protocol: Axial computed tomography images with coronal and sagittal reformatted images were created and reviewed COMPARISON: CT CT HEAD CERVICAL SPINE WO from 09/29/2023 FINDINGS: There are no skull fractures. There is no fluid in the visualized paranasal sinuses. There is no evidence of acute intracranial hemorrhage at this time. The previously present intra-axi al hemorrhage in the left occipital region has resolved. There is presently no evidence of intracran ial hemorrhage, intra nor extra-axial. There is an area encephalomalacia in the left occipital lobe at the area of previous intra-axial bleed. Ventricular size is unchanged. No shift. There is a moderate amount of bilateral periventricular hypodensity consistent with chronic small ves brian disease. IMPRESSION: The left occipital lobe hemorrhage evident on the prior CT scan of 09/29/2023 has mostly resolved, le aving area of edema/ encephalomalacia in the left occipital lobe region. There is moderate amount of bilateral periventricular hypodensity consistent with chronic small vesse l disease. Called by myself to ER. RADIATION DOSE DELIVERED: 739.91mGy.cm Total DLP DATA REPOSITORY: All CT scans at this facility are submitted to the National Radiology Data Registry (NRDR) Dose Index Registry (DIR) with the [employer] (ACR). RADIATION OPTIMIZATION: All CT scans at this facility use at least one of these dose optimization te chniques: automated exposure control; mA and/or kV adjustment per patient size (includes targeted exa ms where dose is matched to clinical indication); or iterative reconstruction.
--- NOTE | 2023-11-10 09:02 | DI.CT_ITS ---
Exam(s) CT ABDOMEN PELVIS WO EXAM: CT ABDOMEN PELVIS WO CLINICAL HISTORY: abd pain nausea, syncope. TECHNIQUE: Imaging Protocol: Axial computed tomography images with coronal and sagittal reformatted images were created and reviewed CONTRAST MATERIAL: Intravenous: none Oral: None COMPARISON: CT CT THORACIC LUMBAR SPINE REC from 09/29/2023 FINDINGS: VISUALIZED LUNG BASES: No lung contusion, nodules nor pleural effusions evident. Visualized ribs olena ear intact. Vertebrals classes cement noted in the posterior aspect of the collapsed T12 vertebral b azeem. Calcified mitral valve annulus. Heart size normal. No pericardial effusion. ABDOMEN: There is no ascites. LIVER: Somewhat cirrhotic appearing liver. No laceration evident. No obvious liver lesions seen arun lizing limitations of a non few study. GALLBLADDER/BILIARY: Gallbladder appears unremarkable. CBD is not dilated. PANCREAS: Single pancreatic calcification at the neck level measuring 2 millimeters. No ominous panc reatic mass evident. Pancreatic duct not dilated. SPLEEN: No evidence of significant splenic injury. ADRENALS: There is a small 1.1 x 1.1 cm nodule in left adrenal gland probably incidental adenoma. Ri ght adrenal gland unremarkable. KIDNEYS:No renal lacerations nor subcapsular hematomas. No significant focal findings in the left ki dney. Two benign cysts are noted off the posterior cortex of the right kidney with the larger of the se 2 cysts measuring 2.2 x 2.0 cm. No solid renal masses. No calculi nor hydronephrosis. . ABDOMINAL AORTA: Calcified but not enlarged. Common iliac arteries calcified but not enlarged. LYMPH NODES: There is no retroperitoneal nor paraaortic adenopathy. ABDOMINAL WALL: There is a large left side anterior abdominal wall hernia at the level of a left colo stomy. This hernia sac measures 12 cm wide by 7 cm AP by 9 cm craniocaudal in addition to: It also i ncludes left-sided small bowel loops. These bowel loops do not appear threatened and there is no bow el obstruction. The neck of the hernia sac is approximately 4 cm wide. GI: Left-sided colostomy. Rectum is oversewn. No evidence of bowel obstruction. No free fluid. No abscess. PELVIS: LYMPH NODES: There is no intrapelvic nor inguinal adenopathy. GI: No evidence of appendicitis.No evidence of sigmoid diverticulitis. URINARY BLADDER: There is diffuse asymmetric bilateral thickening of the urinary bladder wall. There is also a small right-sided diverticulum REPRODUCTIVE: the uterus surgically absent. No abnormal adnexal masses. No free fluid. OSSEOUS: No significant osseous lesions. No fractures of the pelvis. No acute fractures. No listhesis. Mom T12 compression fracture with vertebroplasty cement noted in the posterior aspect of the collapsed T12 vertebral body. Similar to previous study of 09/29/2023. IMPRESSION: 1. No significant acute trauma sequelae in the abdomen and pelvis 2. Left-sided colostomy with prominent left abdominal wall hernia at this level with measurements as above. The hernia also contains small bowel loops which do not appear threatened and there is no burton dence of bowel obstruction. 3. No acute fractures evident. Collapsed T12 vertebral body which contains vertebroplasty cement on both sides of the posterior aspect of the vertebra. Called by myself to ER physician RADIATION DOSE DELIVERED: 1,196.31mGy.cm Total DLP DATA REPOSITORY: All CT scans at this facility are submitted to the National Radiology Data Registry (NRDR) Dose Index Registry (DIR) with the [employer] (ACR). RADIATION OPTIMIZATION: All CT scans at this facility use at least one of these dose optimization te chniques: automated exposure control; mA and/or kV adjustment per patient size (includes targeted exa ms where dose is matched to clinical indication); or iterative reconstruction.
--- NOTE | 2023-11-10 09:07 | ED.GENADUL_ITS ---
Discharge Plan Disposition Patient Disposition: Home Condition: Improving Discharge Details Clinical Impression: Syncope, Acute UTI Primary Care Provider: Ariadna Trevino ED Provider: Matheus Reese Home Meds and New Rx's Prescriptions: New cefpodoxime 100 mg tablet 100 mg PO BID 7 Days Qty: 14 0RF Rx Instructions: must administer with a meal/food No Action polyethylene glycol 3350 [Miralax] 17 gram/dose powder 17 g PO DAILY PRN cyclobenzaprine 5 mg tablet 5 mg PO TID PRN (Reason: muscle spasm) Qty: 15 0RF Rx Instructions: avoid concurrent use with oxycodone monitor for sedation/fall risk, especially during initiation of medication trial oxycodone 5 mg tablet 5 mg PO BID MDD 5mg PRN (Reason: severe pain (scale score 7-10)) Qty: 60 0RF trazodone 100 mg tablet 100 mg PO QHS Qty: 30 1RF fentanyl 12 mcg/hr patch 72 hour 1 patch transdermal Q72H MDD 12mcg/hr Qty: 10 0RF duloxetine [Cymbalta] 20 mg capsule,delayed release(DR/EC) 20 mg PO DAILY lisinopril 20 mg tablet 20 mg PO DAILY bisacodyl [Dulcolax (bisacodyl)] 5 mg tablet,delayed release (DR/EC) 5 mg PO QHS PRN melatonin [Meladox] 3 mg tablet extended release 3 mg PO HS levothyroxine 137 mcg tablet 137 mcg PO DAILY Discharge Instructions Instructions: Urinary Tract Infection in Women (ED), Syncope (ED) HPI General Date/Time Provider Initiated Documentation: 11/10/23 08:54 . HPI Narrative: 83-year-old female history of dementia, colostomy, presents after syncopal episode today from seated position associate with nausea, fell to the ground hit her head, is now back to baseline. Does endorse some mild abdominal discomfort and nausea Related Data Home Medications Medication Instructions Recorded Confirmed polyethylene glycol 3350 17 17 g PO DAILY PRN 06/05/21 11/10/23 gram/dose oral powder (Miralax) cyclobenzaprine 5 mg tablet 5 mg PO TID PRN muscle spasm #15 07/23/23 11/10/23 tabs oxycodone 5 mg tablet 5 mg PO BID PRN severe pain (scale 07/23/23 11/10/23 score 7-10) #60 tabs trazodone 100 mg tablet 100 mg PO QHS sleep #30 tabs 08/24/23 11/10/23 duloxetine 20 mg capsule,delayed 20 mg PO DAILY 10/02/23 11/10/23 release (Cymbalta) lisinopril 20 mg tablet 20 mg PO DAILY 10/02/23 11/10/23 fentanyl 12 mcg/hr transdermal 1 patch transdermal Q72H #10 ea 11/09/23 11/10/23 patch bisacodyl 5 mg tablet,delayed 5 mg PO QHS PRN 11/10/23 11/10/23 release (Dulcolax (bisacodyl)) cefpodoxime 100 mg tablet 100 mg PO BID 7 days #14 tabs 11/10/23 levothyroxine 137 mcg tablet 137 mcg PO DAILY 11/10/23 11/10/23 melatonin 3 mg tablet,extended 3 mg PO HS 11/10/23 11/10/23 release (Meladox) Previous Rx's Medication Instructions Recorded cyclobenzaprine 5 mg tablet 5 mg PO TID PRN muscle spasm #15 07/23/23 tabs oxycodone 5 mg tablet 5 mg PO BID PRN severe pain (scale 07/23/23 score 7-10) #60 tabs trazodone 100 mg tablet 100 mg PO QHS sleep #30 tabs 08/24/23 fentanyl 12 mcg/hr transdermal 1 patch transdermal Q72H #10 ea 11/09/23 patch cefpodoxime 100 mg tablet 100 mg PO BID 7 days #14 tabs 11/10/23 Allergies Allergy/AdvReac Type Severity Reaction Status Date / Time banana Allergy Intermediate Other (See Verified 11/10/23 09:01 Comment) cucumber Allergy Intermediate Other (See Verified 11/10/23 09:01 Comment) Iodinated Contrast Media Allergy Intermediate Anaphylaxis Unverified 11/10/23 09:01 chloramphenicol AdvReac Severe KIDNEY Verified 11/10/23 09:01 FAILURE tetracycline AdvReac Severe KIDNEY Verified 11/10/23 09:01 FAILURE melon AdvReac Intermediate Cantaloupe-Abd Verified 11/10/23 09:01 pain, diarrhea donepezil AdvReac Cardiac Unverified 11/10/23 09:01 Dysrhythmia ADHESIVE TAPE Allergy Intermediate takes skin Uncoded 11/10/23 09:01 off SUTURE MATERIAL Allergy Intermediate Purluent Uncoded 11/10/23 09:01 Drainage General Stated Complaint: [id number] JOSHUA: 3 Review of Systems Narrative: Review of Systems Constitutional: negative Eyes: negative ENT: negative Cardiovascular: Syncope Respiratory: negative Gastrointestinal: Abdominal pain : negative Musculoskeletal: negative Skin: negative Neurologic: negative Psych: negative Exam Narrative Exam Narrative: Physical Examination General: alert, awake, cooperative, resting comfortably, no acute distress HEENT: normocephalic, atraumatic; PERRL, EOM intact, conjunctiva normal; no nasal discharge; moist mucous membranes, oral and pharyngeal mucosa normal, tolerating secretions Neck: supple, trachea midline; full ROM Chest: normal to inspection Respiratory: normal respiratory effort, speaking in full sentences, clear to auscultation, no wheezing, rales or rhonchi Cardiac: regular rate, regular rhythm, S1S2 intact, no murmurs rubs or gallops GI: abdomen soft, non-tender, non-distended; no palpable mass or hepatosplenomegaly; ostomy intact, output in bag Skin: no lesions, rashes or trauma appreciated Neuro: Alert following commands moving all extremities without deficit, no ataxi a Extremities: No signs of trauma no peripheral edema Psych: Appropriate mood and affect Course Vital Signs Vital signs: Vital Signs Temperature 36.9 C 11/10/23 08:53 Pulse 53 L 11/10/23 08:53 Respiratory Rate 20 11/10/23 08:53 Blood Pressure 170/50 H 11/10/23 08:53 Pulse Oximetry 99 11/10/23 08:53 Temperature 36.9 C 11/10/23 08:53 Temperature Source Oral 11/10/23 08:53 Pulse 53 L 11/10/23 08:53 Respiratory Rate 20 11/10/23 08:53 Blood Pressure 170/50 H 11/10/23 08:53 Blood Pressure Position Supine 11/10/23 08:53 Pulse Oximetry 99 11/10/23 08:53 Oxygen Delivery Method Room Air 11/10/23 08:53 Oxygen Flow Rate 0 11/10/23 08:53 Pain Level 4 11/10/23 08:53 Medical Decision Making 83-year-old female history of dementia, colostomy, presents after syncopal episode from seated position felt nauseous, syncopized, fell out of her chair hit her head, came to immediately, no chest pain or shortness of breath does have mild abdominal discomfort and nausea. No vomiting. Hemodynamically stable sinus bradycardia on EKG with inferior lateral T wave inversions unchanged from prior likely related to LVH, no to be hypertense. Afebrile nontoxic interactive moving all extremities without deficit, consider intra-abdominal process that triggered vasovagal episode must consider enteritis versus gastritis versus colitis versus bowel obstruction lower suspicion for malignancy was also consider UTI versus dehydration lower suspicion for ACS or PE or aortic pathology given history and physical. Will obtain screening labs CT head CT abdomen pelvis x-ray chest EKG urinalysis, light fluids, close reassessment. 12: 28 resting actively no acute distress. Feeling better tolerating p.o. Labs and imaging unremarkable. Likely mild UTI. Will start antibiotics. 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 Patient aware that there is higher than recommended dose. Makes informed decision, drug contract with [facility] Chronic pain syndrome (Chronic) Due to chronic back pain, 08/2021-drug contract at [facility], V PMS review,11/2021-urine drug screen Using oxycodone for pain mgmt when taking a shower. Essential hypertension (Chronic) Peristomal hernia (Chronic) Had [facility] admit 03/2021 for obstruction. Had ostomy mgmt and hernia improved, but not resolved. GERD (gastroesophageal reflux disease) (Chronic) Cerebral amyloid angiopathy (Chronic) : possible diagnosis re:brain MRI/ followed by Neuro [facility] Dr.Anthony Avalos Urethral caruncle (Chronic) dx by Obgyn Gout (Chronic) Rectovaginal fistula (Chronic) Anemia of chronic disease (Chronic) Constipation by delayed colonic transit (Chronic) Urinary retention with incomplete bladder emptying (Chronic) Adrenal insufficiency (Chronic) Iatrogenic secondary to chronic steroid use, on low-dose chronic steroid Primary osteoarthritis of left knee (Chronic 07/30/15) PMR (polymyalgia rheumatica) (Chronic 01/15/16) DX 2016 : /curtis resp. to Prednisone Osteoporosis (Chronic) Bone density scan : 11/2021, managed by [facility], on prolia Obstructive sleep apnea syndrome (Chronic) after closed head injury pt not using CPAP machine Non-alcoholic fatty liver disease (Chronic) persistent elevated AST echo. 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 Medical History (Updated 11/10/23 @ 12:28 by Matheus Reese MD) Visual field loss Anterolisthesis of lumbar spine Multiple fractures of ribs Abdominal pain in female Alzheimer's dementia Brain bleed 05/2021 tx at [facility], intra parenchymal left-sided hemorrhage-treated through [facility] September 2023, new hemorrhagic stroke felt to be secondary to CAA, see ED notes T12 burst fracture Compression fracture of body of thoracic vertebra Palliative care patient Perforation of colon as colonoscopy complication Tuberculosis Insomnia Raynaud's disease Excessive sweating (06/02/16) daytime sweating if >74 degrees/ fatigue normal cbc, spep,echocardiogram,sed.rate,cmp Colon polyp (06/28/18) adenoma colon pollyps-1997; none on subsequent colonoscopies; most recent c- scope in 2006 was normal 2018-adenoma Surgical History S/P rotator cuff repair S/P BSO (bilateral salpingo-oophorectomy) S/P appendectomy S/P hysterectomy S/P kyphoplasty H/O partial resection of colon Sigmoid colon resection 06/28/18 S/P tonsillectomy H/O dilation and curettage Laparoscopic, Ovarian Cystectomy B/L EGD - [facility] (~2003) MILD EROSIVE ESOPHAGITIS, NO PINON'S ON BIOPSY Colonoscopy - [facility] ADENOMA COLON POLYPS 1997, NONE ON MULTIPLE SUBSEQUENT COLONOSCOPIES, MOST RECENT C-SCOPE 2006 WAS NORMAL, 2018 - cecal polyp, diverticulosis Family History Mother , in her 80s from pneumonia Heart disease Pneumonia Father , from complications of prostate surgery in his 80s Stroke Personal history of malignant neoplasm Heart disease Brother , aged 68 Alcohol abuse Cirrhosis with alcoholism Grandfather Essential hypertension Heart disease Grandmother Personal history of malignant neoplasm Stroke Grandmother Personal history of malignant neoplasm Son , from his drinking/SA; her oldest child Alcohol abuse Social History Smoking/Tobacco Use Status: Former Tobacco Use Smoking risk assessment performed?: Yes Alcohol Intake: current Alcohol Intake frequency: holidays/special occasions only Alcohol type: hard liquor Details: HOLIDAYS AND SPECIAL OCCASIONS ONLY Drug use: Never Substance use type: does not use Counseling given: No Household members: other Details: 2 Housing: house 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
[2023-11-10] MEDS: Normal Saline 500 ML 1000 ML IV (09:21)
[2023-11-10 09:23] LABS: Abs Immature Grans 0.02 10^3/uL (0.0-0.06); Absolute Basophil Count 0.03 10^3/uL (0.0-0.2); Absolute Eosinophil Count 0.12 10^3/uL (0.0-0.7); Absolute Lymphocyte Count 1.22 10^3/uL (1.2-3.4); Absolute Monocyte Count 0.62 10^3/uL (0.1-0.8); Absolute Neutrophil Count 3.17 10^3/uL (1.2-6.7); Basophils % 0.6; Eosinophils % 2.3; HGB 9.3 g/dL (11.2-15.7); Immature Grans % 0.4; Lymphocytes % 23.6; MCH 25.5 pg (27.0-33.0); MCV 82 fL (80-95); MPV 10.1 fL (8.0-11.0); Neutrophils % 61.1; Platelet Count 202 10^3/uL (130-400); RBC 3.64 10^6/uL (3.93-5.22); RDW 15.5 % (11.7-14.6); RDW-SD 46.7 fL; WBC 5.18 10^3/uL (4.4-10.8)
[2023-11-10 09:40] LABS: INR 1.2 (0.9-1.1); Prothrombin Time 11.6 sec (9.1-11.1)
[2023-11-10 09:51] LABS: ALT 15 U/L (14-59); AST 14 U/L (15-37); Albumin 3.1 g/dL (3.4-5.0); Alkaline Phosphatase 82 U/L (46-116); Anion Gap 10.9 mmol/L (3-11); BUN 9 mg/dL (7-18); Bilirubin, Total 0.4 mg/dL (0.2-1.0); CO2 27.1 mmol/L (21.0-32.0); CREATININE 0.9 mg/dL (0.55-1.02); Calcium 9.3 mg/dL (8.5-10.1); Chloride 103 mmol/L (98-107); Estimated GFR 63.83 (mL/min/1.73m2); Glucose 97 mg/dL (74-106); Magnesium 1.8 mg/dL (1.8-2.4); NT-proBNP 1929 pg/mL (<300); Potassium 3.6 mmol/L (3.5-5.1); Sodium 141 mmol/L (136-145); TSH (W/Ref FT4) 0.14 uIU/mL (0.36-3.74); Total Protein 7.1 g/dL (6.4-8.2); Troponin I < 50 ng/L (< or =60)
--- NOTE | 2023-11-10 10:22 | DI.RAD_ITS ---
Exam(s) XR CHEST 2V PA LATERAL EXAM: XR CHEST 2V PA LATERAL CLINICAL HISTORY: syncope. TECHNIQUE: 2D digital imaging was performed. COMPARISON: CR XR PORTABLE CHEST AP from 05/29/[address] ABDOMEN PELVIS WO from 11/10/2023 FINDINGS: 2 views: Heart size is normal. The mediastinum is not widened. Lungs are clear. No infiltrates nor pleural effusions. Vertebroplasty cement is noted in T12 vertebral body which has lost significant height from compressi on fracture. There do not appear to be new compression fractures in the thoracic vertebrae. No rib fractures. No clavicle fracture. IMPRESSION: No acute pulmonary findings. T12 compression fracture with vertebroplasty cement DATA REPOSITORY: RADIATION DOSE DELIVERED:
[2023-11-10 11:23] LABS: Bilirubin Negative (Negative); Blood Negative (Negative); Clarity Clear (Clear); Glucose Negative (Negative); Ketones Negative (Negative); Leukocyte Esterase Small (Negative); Nitrite Negative (Negative); Specific Gravity 1.015 (1.005-1.025); Urobilinogen 0.2 mg/dL (Up to 0.2); pH 8.5 (5-8)
[2023-11-10 11:38] LABS: Bacteria Rare HPF (Negative); C & S Indicated? Yes; Casts Negative LPF (Negative); Crystals Negative HPF (Negative); Epithelial Cells Few HPF (Negative); Mucus Negative (Negative); RBC Negative HPF (0-2)
[2023-11-10 12:09] LABS: Troponin I < 50 ng/L (< or =60)
== END 2023-11-10 13:25 | disposition home or self-care (01) ==
PROVIDERS: Emergency Provider Emergency Medicine; PCP Nurse Practitioner Family
DX: R55 Syncope and collapse (principal); R11.0 Nausea; R00.1 Bradycardia, unspecified; I45.19 Other right bundle-branch block; M35.3 Polymyalgia rheumatica; R94.31 Abnormal electrocardiogram [ECG] [EKG]; I10 Essential (primary) hypertension; G30.9 Alzheimer's disease, unspecified; F02.80 Dementia in other diseases classified elsewhere, unspecified severity, without behavioral disturbance, psychotic disturbance, mood disturbance, and anxiety; Z93.3 Colostomy status; Z87.891 Personal history of nicotine dependence
CPT/HCPCS: 36415; 80053; 93005; 96361; 96374; 99284; 70450; 71046; 74176; 81003; 81015; 83735; 83880; 84439; 84443; 84484; 85025; 85610; 85730; 87086; 93010

== ENCOUNTER 2023-12-09 09:07 | Outpatient (REF) | payer MEDICARE, SELFPAY ==
[2023-12-09 10:41] LABS: TSH (W/Ref FT4) 0.17 uIU/mL (0.36-3.74)
[2023-12-09 10:59] LABS: FREE T4 1.75 ng/dL (0.76-1.46)
== END 2023-12-09 09:08 | disposition home or self-care (01) ==
LOC: NCHCN 09:07
PROVIDERS: PCP Nurse Practitioner Family; Visit Provider Nurse Practitioner Family
DX: E03.9 Hypothyroidism, unspecified (principal)
CPT/HCPCS: 84439; 84443

== ENCOUNTER → 2023-12-16 14:07 | Outpatient (BNVA) | payer MEDICARE, SELFPAY | PROVIDERS: PCP Nurse Practitioner Family; Referring Provider Nurse Practitioner Family; Visit Provider Psychiatry & Neurology Neurology | DX: I61.9 Nontraumatic intracerebral hemorrhage, unspecified (principal); E85.4 Organ-limited amyloidosis; I68.0 Cerebral amyloid angiopathy; F03.90 Unspecified dementia, unspecified severity, without behavioral disturbance, psychotic disturbance, mood disturbance, and anxiety | CPT/HCPCS: 99214 ==

== ENCOUNTER 2023-12-27 10:33 | Outpatient (REF) | payer MEDICARE, SELFPAY ==
[2023-12-27 12:01] LABS: Vitamin B12 441 pg/mL (193-986)
== END 2023-12-27 10:34 | disposition home or self-care (01) ==
LOC: LBN 10:33
PROVIDERS: PCP Nurse Practitioner Family; Visit Provider Psychiatry & Neurology Neurology
DX: R41.9 Unspecified symptoms and signs involving cognitive functions and awareness (principal); G62.9 Polyneuropathy, unspecified
CPT/HCPCS: 82607

== ENCOUNTER 2024-01-14 08:02 | Outpatient (REF) | payer MEDICARE, SELFPAY ==
[2024-01-15 08:30] LABS: Bilirubin Negative (Negative); Blood Negative (Negative); Clarity Clear (Clear); Glucose Negative (Negative); Ketones Negative (Negative); Leukocyte Esterase Small (Negative); Nitrite Negative (Negative); Specific Gravity 1.015 (1.005-1.025); Urobilinogen 0.2 mg/dL (Up to 0.2)
[2024-01-15 08:46] LABS: Bacteria Few HPF (Negative); Crystals Negative HPF (Negative); Epithelial Cells Many HPF (Negative); Mucus Trace (Negative); RBC 0-2 HPF (0-2)
[2024-01-15 08:47] LABS: C & S Indicated? No; Casts 0-2 Hyaline LPF (Negative)
== END 2024-01-14 08:03 | disposition home or self-care (01) ==
LOC: NCHCN 08:02
PROVIDERS: PCP Nurse Practitioner Family; Visit Provider Nurse Practitioner Family
DX: R33.9 Retention of urine, unspecified (principal); R82.998 Other abnormal findings in urine
CPT/HCPCS: 81003; 81015

== ENCOUNTER 2024-01-16 11:05 | Emergency (ER) | payer MEDICARE, SELFPAY ==
[2024-01-16 11:08] VITALS: BP 162/71; PULSE 54; RESP 16; TEMP 36; O2SAT 98
--- NOTE | 2024-01-16 11:15 | DI.CT_ITS ---
Exam(s) CT HEAD WO EXAM: CT HEAD WO CLINICAL HISTORY: Head strike confusion. TECHNIQUE: Imaging Protocol: Axial computed tomography images with coronal and sagittal reformatted images were created and reviewed COMPARISON: CT CT HEAD WO from 11/10/2023 FINDINGS: Ventricles and Extra axial spaces: Normal in size and morphology for the patient's age. Hemorrhage: None. Cerebral parenchyma: There is again seen encephalomalacia in the left occipital lobe. There are area s of decreased attenuation in the white matter consistent with chronic microvascular ischemic disease . Midline shift: None. Brainstem/Cerebellum: Normal. Calvarium: Normal. Visualized Paranasal sinuses/Mastoids: Clear. Soft Tissues: Unremarkable. IMPRESSION: No acute intracranial process. RADIATION DOSE DELIVERED: 726.45mGy.cm Total DLP DATA REPOSITORY: All CT scans at this facility are submitted to the National Radiology Data Registry (NRDR) Dose Index Registry (DIR) with the [employer] (A[employer]). RADIATION OPTIMIZATION: All CT scans at this facility use at least one of these dose optimization te chniques: automated exposure control; mA and/or kV adjustment per patient size (includes targeted exa ms where dose is matched to clinical indication); or iterative reconstruction.
--- NOTE | 2024-01-16 11:29 | W.ED.GENAD ---
Discharge Plan Disposition Patient Disposition: Home Discharge Details Clinical Impression: Acute right flank pain, Hx of falling Primary Care Provider: Ariadna Trevino ED Provider: Shine Ríos Home Meds and New Rx's Prescriptions: Continued polyethylene glycol 3350 [Miralax] 17 gram/dose powder 17 g PO DAILY PRN cyclobenzaprine 5 mg tablet 5 mg PO TID PRN (Reason: muscle spasm) Qty: 15 0RF Rx Instructions: avoid concurrent use with oxycodone monitor for sedation/fall risk, especially during initiation of medication trial allopurinol 100 mg tablet 100 mg PO DAILY levothyroxine 125 mcg capsule 125 mcg PO DAILY lidocaine 4 % adhesive patch,medicated 1 patch topical DAILY PRN sennosides 8.6 mg tablet 8.6 mg PO DAILY naloxone 4 mg/actuation spray,non-aerosol 1 spray intranasal Q2M Rx Instructions: spray 1 dose into ONE nostril; alternate nostrils w each dose until help arrives trazodone 100 mg tablet 100 mg PO QHS Qty: 30 1RF oxycodone 5 mg tablet 5 mg PO BID MDD 10 mg PRN (Reason: severe pain (scale score 7-10)) Qty: 10 0RF fentanyl 12 mcg/hr patch 72 hour 1 patch transdermal Q72H MDD 12mcg/hr Qty: 10 0RF lisinopril 20 mg tablet 20 mg PO DAILY duloxetine [Cymbalta] 20 mg capsule,delayed release(DR/EC) 40 mg PO DAILY bisacodyl [Dulcolax (bisacodyl)] 5 mg tablet,delayed release (DR/EC) 5 mg PO QHS PRN melatonin [Meladox] 3 mg tablet extended release 3 mg PO HS Discharge Instructions Additional Instructions: You were seen in the emergency department for your fall. Your CAT scan showed no new significant fractures. Please return to the emergency department if you take any other falls or if you develop nausea and vomiting or if you have any other concerns. Otherwise please follow-up next week with your primary care provider. Discharge Data Discharge Date/Time-TO BE ENTERED AT DEPARTURE: 01/16/24 16:00 HPI General Date/Time Provider Initiated Documentation: 01/16/24 11:28. HPI Narrative: MDM This is a chronically ill-appearing afebrile and not tachycardic 83-year-old female with fall flank pain concerning for the possibility of rib fracture versus thoracic or lumbar spinal fracture for which she will undergo dry CT scan. She does have a known T12 fracture and this certainly could be the cause of her pain if she is falling again. Patient fell several days ago and has a reassuring shock index making my suspicion for intra-abdominal trauma low. She has had decreased output from her ostomy bag however has not been vomiting so my suspicion for small bowel obstruction is low. No pain or proportion to suggest necrotizing soft tissue infection. No fevers to suggest increased risk for spinal epidural abscess. No saddle anesthesia making my suspicion lower for cauda equina syndrome. Not anticoagulated and no recent spinal manipulation so my suspicion is low for epidural hematoma. Ureterolithiasis is also on the differential which will be assessed on dry CT. No syncope and not hypotensive so my suspicion is low for ruptured AAA. No cough to suggest pneumonia. No rash to back to suggest zoster. I considered PE however in the absence of chest pain hypoxia and tachycardia I felt that PE was less likely so I did not order D-dimer. Bilateral feet warm and well-perfused so I am not concerned for critical limb ischemia so I do not feel that he requires a CT angiogram with runoffs. She is moving all 4 of her extremities and has no aphasia so I am not suspicious for stroke. 12:30 PM Urinalysis leukoesterase positive nitrite negative with no hematuria. RBCs on microscopy. Sample contaminated and will not reflex to culture. Will defer antibiotics at this point in time. 12:45 PM Patient metabolic panel with mild bump in creatinine to 1.2. No acute electrolyte abnormalities. No hyperglycemia. CBC with mild normocytic anemia. No leukocytosis. No thrombocytopenia. Anemia appears improved compared to prior. 1:[address] chest showing degenerative changes of the spine but no displaced rib fractures. Age-indeterminate left lateral rib fracture. Compression deformity T12. Prior bilateral rib fractures. CT abdomen pelvis showing thickened irregular bladder wall. Ventral hernia with nondilated bowel loops. 4:30 PM I met with the patient and reassessed her. She was having some persistent pain. I treated her with acetaminophen and methocarbamol in the event that there is a component of muscle spasm. At the time of discharge patient was noted to have a mildly low blood pressure. She had had no syncope so of not suspicious for orthostatic hypotension. Patient had a walker and was able to stand and pivot. She arrived in left in a wheelchair. We discussed return to the ED for loss of bowel or bladder control any worsening pain or any recurrent falls. Patient understood her return indications and was discharged with empiric trial of expectant outpatient management. Chronic conditions affecting the care of the patient: T12 burst fracture RIZWAN interventricular hemorrhage recent hospitalization at [facility] last season History obtained from an outside historian: Patient's care provider External record review: [facility] EMR Medications: N/A Social determinants of health affecting disposition: N/A Management discussed with: N/A Treatment/interventions considered: N/A Response to therapies provided: N/A HPI This is an 83-year-old female with history of T12 burst fracture prior to the emergency department with a care provider in setting of right-sided flank pain radiates down into her right thigh for the past 4 days. Was seen by her primary care provider and received oral analgesia. She has had pain with moving. She also has some pain when taking a deep breath. Patient reportedly struck her head. She reportedly has been more confused. She has a history of Alzheimer's disease. She denies dysuria frequency cough nausea vomiting abdominal pain and chest pain. She has a remote history of ureteral lithiasis. She has not yet had anything to eat this morning. Exam General: Chronically ill-appearing in no acute distress speaking in complete sentences. Head: Normocephalic, atraumatic. Eye:[Pupils equal, round reactive to light.] Extraocular eye movements intact. No conjunctival injection. No scleral icterus. Ear, nose, mouth, throat: Grossly normal inspection. Normal voice, handling secretions normally. Neck: Trachea midline. Cardiovascular: Well-perfused distal extremities. Respiratory: Nonlabored respiration. Clear lungs bilaterally Gastrointestinal: Nondistended abdomen. Soft. Nontender. Ostomy bag nondistended. Back: Midline thoracic spinal tenderness. No rash to back. No Al Alejandra sign. Musculoskeletal: No edema. Moving all 4 extremities spontaneously. Patient is able to straight leg raise bilaterally. She is warm well-perfused lower extremities with 2+ PT DP pulses. 5 out of 5 strength dorsi and plantarflexion. Skin: Normal for age and race, grossly normal temperature and turgor. No acute rash. Neurologic: Alert and appropriate, no apparent acute deficits. GCS 15. Alert and oriented to person place and time. No aphasia. Psychiatric: Mood and manner are appropriate. Grooming and personal hygiene are appropriate. Related Data Home Medications Medication Instructions Recorded Confirmed polyethylene glycol 3350 17 17 g PO DAILY PRN 06/05/21 01/16/24 gram/dose oral powder (Miralax) cyclobenzaprine 5 mg tablet 5 mg PO TID PRN muscle spasm #15 07/23/23 01/16/24 tabs trazodone 100 mg tablet 100 mg PO QHS sleep #30 tabs 08/24/23 01/16/24 lisinopril 20 mg tablet 20 mg PO DAILY 10/02/23 01/16/24 bisacodyl 5 mg tablet,delayed 5 mg PO QHS PRN 11/10/23 01/16/24 release (Dulcolax (bisacodyl)) melatonin 3 mg tablet,extended 3 mg PO HS 11/10/23 01/16/24 release (Meladox) naloxone 4 mg/actuation nasal spray 1 spray intranasal Q2M 12/11/23 01/16/24 sennosides 8.6 mg tablet 8.6 mg PO DAILY 12/11/23 01/16/24 allopurinol 100 mg tablet 100 mg PO DAILY 12/16/23 01/16/24 oxycodone 5 mg tablet 5 mg PO BID PRN severe pain (scale 12/29/23 01/16/24 score 7-10) #10 tabs duloxetine 20 mg capsule,delayed 40 mg PO DAILY 12/31/23 01/16/24 release (Cymbalta) levothyroxine 125 mcg capsule 125 mcg PO DAILY 12/31/23 01/16/24 lidocaine 4 % topical patch 1 patch topical DAILY PRN 12/31/23 01/16/24 fentanyl 12 mcg/hr transdermal 1 patch transdermal Q72H #10 ea 01/07/24 01/16/24 patch Previous Rx's Medication Instructions Recorded cyclobenzaprine 5 mg tablet 5 mg PO TID PRN muscle spasm #15 07/23/23 tabs trazodone 100 mg tablet 100 mg PO QHS sleep #30 tabs 08/24/23 oxycodone 5 mg tablet 5 mg PO BID PRN severe pain (scale 12/29/23 score 7-10) #10 tabs fentanyl 12 mcg/hr transdermal 1 patch transdermal Q72H #10 ea 06/20/24 patch Allergies Allergy/AdvReac Type Severity Reaction Status Date / Time banana Allergy Intermediate Other (See Verified 01/16/24 11:23 Comment) cucumber Allergy Intermediate Other (See Verified 01/16/24 11:23 Comment) Iodinated Contrast Media Allergy Intermediate Anaphylaxis Unverified 01/16/24 11:23 chloramphenicol AdvReac Severe KIDNEY Verified 01/16/24 11:23 FAILURE tetracycline AdvReac Severe KIDNEY Verified 01/16/24 11:23 FAILURE melon AdvReac Intermediate Cantaloupe-Abd Verified 01/16/24 11:23 pain, diarrhea donepezil AdvReac Cardiac Unverified 01/16/24 11:23 Dysrhythmia ADHESIVE TAPE Allergy Intermediate takes skin Uncoded 01/16/24 11:23 off SUTURE MATERIAL Allergy Intermediate Purluent Uncoded 01/16/24 11:23 Drainage General Stated Complaint: Orthopedic JOSHUA: 3 Course Vital Signs Vital signs: Vital Signs Temperature 36 C L 01/16/24 11:08 Pulse 54 L 01/16/24 11:08 Respiratory Rate 16 01/16/24 11:08 Blood Pressure 162/71 H 01/16/24 11:08 Pulse Oximetry 98 01/16/24 11:08 Temperature 36 C L 01/16/24 11:08 Temperature Source Tympanic 01/16/24 11:08 Pulse 54 L 01/16/24 11:08 Respiratory Rate 16 01/16/24 11:08 Respiratory Effort Normal 01/16/24 11:28 Blood Pressure 162/71 H 01/16/24 11:08 Blood Pressure Position Sitting 01/16/24 11:08 Pulse Oximetry 98 01/16/24 11:08 Oxygen Delivery Method Room Air 01/16/24 11:08 Oxygen Flow Rate 0 01/16/24 11:08 Pain Level 9 01/16/24 11:08 Comment Unsure if taken meds this morning. 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 Patient aware that there is higher than recommended dose. Makes informed decision, drug contract with [facility] Chronic pain syndrome (Chronic) Due to chronic back pain, 08/2021-drug contract at [facility], V PMS review,11/2021-urine drug screen Using oxycodone for pain mgmt when taking a shower. Essential hypertension (Chronic) Peristomal hernia (Chronic) Had [facility] admit 03/2021 for obstruction. Had ostomy mgmt and hernia improved, but not resolved. GERD (gastroesophageal reflux disease) (Chronic) Cerebral amyloid angiopathy (Chronic) : possible diagnosis re:brain MRI/ followed by Neuro [facility] Dr.Anthony Avalos Urethral caruncle (Chronic) dx by Obgyn Gout (Chronic) Rectovaginal fistula (Chronic) Anemia of chronic disease (Chronic) Constipation by delayed colonic transit (Chronic) Urinary retention with incomplete bladder emptying (Chronic) Adrenal insufficiency (Chronic) Iatrogenic secondary to chronic steroid use, on low-dose chronic steroid Primary osteoarthritis of left knee (Chronic 07/30/15) PMR (polymyalgia rheumatica) (Chronic 01/15/16) DX 2015 : /curtis resp. to Prednisone Osteoporosis (Chronic) Bone density scan : 11/2021, managed by Rhe[facility], on prolia Obstructive sleep apnea syndrome (Chronic) after closed head injury pt not using CPAP machine Non-alcoholic fatty liver disease (Chronic) persistent elevated AST echo. 03-2015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 Medical History Visual field loss Anterolisthesis of lumbar spine Multiple fractures of ribs Abdominal pain in female Alzheimer's dementia Brain bleed 05/[address] [facility], intra parenchymal left-sided hemorrhage-treated through [facility] September 2023, new hemorrhagic stroke felt to be secondary to CAA, see ED notes T12 burst fracture Compression fracture of body of thoracic vertebra Palliative care patient Perforation of colon as colonoscopy complication Tuberculosis Insomnia Raynaud's disease Excessive sweating (06/02/16) daytime sweating if >74 degrees/ fatigue normal cbc, spep,echocardiogram,sed.rate,cmp Colon polyp (06/28/18) adenoma colon pollyps-1997; none on subsequent colonoscopies; most recent c-scope in 2005 was normal 2017-adenoma Surgical History S/P rotator cuff repair S/P BSO (bilateral salpingo-oophorectomy) S/P appendectomy S/P hysterectomy S/P kyphoplasty H/O partial resection of colon Sigmoid colon resection 06/28/18 S/P tonsillectomy H/O dilation and curettage Laparoscopic, Ovarian Cystectomy B/L EGD - [facility] (~2003) MILD EROSIVE ESOPHAGITIS, NO PINON'S ON BIOPSY Colonoscopy - [facility] ADENOMA COLON POLYPS 1997, NONE ON MULTIPLE SUBSEQUENT COLONOSCOPIES, MOST RECENT C-SCOPE 2005 WAS NORMAL, 2018 - cecal polyp, diverticulosis Family History Mother , in her 80s from pneumonia Heart disease Pneumonia Father , from complications of prostate surgery in his 80s Stroke Personal history of malignant neoplasm Heart disease Brother , aged 68 Alcohol abuse Cirrhosis with alcoholism Grandfather Essential hypertension Heart disease Grandmother Personal history of malignant neoplasm Stroke Grandmother Personal history of malignant neoplasm Son , from his drinking/SA; her oldest child Alcohol abuse Social History Smoking/Tobacco Use Status: Former Tobacco Use Smoking risk assessment performed?: Yes Alcohol Intake: current Alcohol Intake frequency: holidays/special occasions only Alcohol type: hard liquor Details: HOLIDAYS AND SPECIAL OCCASIONS ONLY Drug use: Never Substance use type: does not use Counseling given: No Household members: other Details: 2 Housing: house 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
[2024-01-16 11:55] LABS: Bilirubin Negative (Negative); Blood Negative (Negative); Clarity Clear (Clear); Glucose Negative (Negative); Ketones Negative (Negative); Leukocyte Esterase Moderate (Negative); Nitrite Negative (Negative); Urobilinogen 0.2 mg/dL (Up to 0.2)
[2024-01-16 12:03] LABS: Bacteria Rare HPF (Negative); C & S Indicated? No/Sq. Contamination; Casts Negative LPF (Negative); Crystals Negative HPF (Negative); Epithelial Cells Moderate HPF (Negative); Mucus Negative (Negative); Other Cells Few Renal (Negative); WBC Negative HPF (0-5)
[2024-01-16 12:35] LABS: Abs Immature Grans 0.01 10^3/uL (0.0-0.06); Absolute Basophil Count 0.02 10^3/uL (0.0-0.2); Absolute Eosinophil Count 0.12 10^3/uL (0.0-0.7); Absolute Lymphocyte Count 1.56 10^3/uL (1.2-3.4); Absolute Monocyte Count 0.63 10^3/uL (0.1-0.8); Absolute Neutrophil Count 3.91 10^3/uL (1.2-6.7); Basophils % 0.3 %; Eosinophils % 1.9 %; HCT 32.1 % (36.0-46.0); Immature Grans % 0.2 %; MCHC 31.2 % (32.0-36.0); MCV 84 fL (80-95); Monocytes % 10.1 %; Neutrophils % 62.5 %; Platelet Count 214 10^3/uL (130-400); RBC 3.84 10^6/uL (3.93-5.22); RDW 15.7 % (11.7-14.6); RDW-SD 47.4 fL; WBC 6.25 10^3/uL (4.4-10.8)
--- NOTE | 2024-01-16 12:36 | DI.CT_ITS ---
Exam(s) CT CHEST/ABD/PEL WO CT THORACIC LUMBAR SPINE REC EXAM: CT CHEST/ABD/PEL WO CLINICAL HISTORY: Right flank pain history of stone, History of fall TECHNIQUE: Imaging Protocol: Axial computed tomography images with coronal and sagittal reformatted images were created and reviewed COMPARISON: CT CT ABDOMEN PELVIS WO from 08/07/[address] CHEST/ABD/PEL WO from 09/29/[address] THORACIC LUMBAR SPINE REC from 09/29/[address] ABDOMEN PELVIS WO from 11/10/[address] THORACIC LUMBAR SPINE REC from 01/16/2024 FINDINGS: CHEST: Tracheobronchial tree: Patent where visualized. Pulmonary parenchyma: No consolidation or dominant measurable mass. No architectural distortion. Mediastinum and Alice: No dominant adenopathy or fluid collection. The esophagus is unremarkable. Thyroid gland: Unremarkable. Pleura: No effusion or pneumothorax. Heart: Mild cardiomegaly. Calcification of the mitral annulus. Coronary artery calcifications are p resent. No pericardial effusion. Aorta: Thoracic aorta non-dilated. Atherosclerotic calcification is present. Lymph nodes: Within normal limits. Bones:Within normal limits for the patient's age. There is an old T12 compression fracture deformity with findings of vertebroplasty. Soft tissues: Unremarkable. Thoracic spine recons: No acute fractures or subluxations are seen. There is an old T12 compression fracture deformity with evidence of vertebroplasty. The bones are osteopenic. Age-related degenerat colby changes are seen in the thoracic spine. ABDOMEN: Liver: Normal density. No measurable mass. Gallbladder and Biliary Tract: No radiodense calculus or dilation. Pancreas: Normal density, no abnormal calcifications or inflammatory process. Spleen: Normal. Adrenals: No masses seen. Kidneys: Normal size, contour and axis. No radiodense stones or obstructive uropathy. Right renal cys ts. No follow-up is recommended. Abdominal Aorta: Abdominal portion non-dilated. Atherosclerotic calcification is present. Bowel: The patient has a left lower quadrant colostomy. There is a parastomal hernia containing loop s of the transverse colon and small bowel. No evidence of obstruction is seen. There is no evidence of appendicitis. Peritoneal Cavity: No ascites, collection or mesenteric inflammatory response. No free air. Lymph Nodes: Within normal limits. Bones: Within normal limits for the patient's age. Soft Tissues: Unremarkable. PELVIS: Bladder: There are several bladder diverticula present. Reproductive Organs: Status post hysterectomy. Lymph Nodes: Within normal limits. Bones: Within normal limits for the patient's age. Lumbar spine CT recons: No acute fracture or subluxation is seen. The bones are osteopenic. IMPRESSION: 1. No acute fracture or subluxation in the thoracic or lumbar spine. 2. Old T12 compression fracture deformity with vertebroplasty. 3. No acute pulmonary process. 4. Within the limits of this non-contrast examination, no acute abdominal or pelvic organ injury. 5. Left lower quadrant colostomy with peristomal hernia without evidence of bowel obstruction. 6. Multiple urinary bladder diverticula. RADIATION DOSE DELIVERED: Total DLP Total DLP DATA REPOSITORY: All CT scans at this facility are submitted to the National Radiology Data Registry (NRDR) Dose Index Registry (DIR) with the [employer] (ACR). RADIATION OPTIMIZATION: All CT scans at this facility use at least one of these dose optimization te chniques: automated exposure control; mA and/or kV adjustment per patient size (includes targeted exa ms where dose is matched to clinical indication); or iterative reconstruction.
[2024-01-16 12:37] LABS: Anion Gap 10.4 mmol/L (3-11); BUN 12 mg/dL (7-18); CO2 27.6 mmol/L (21.0-32.0); CREATININE 1.2 mg/dL (0.55-1.02); Calcium 9.4 mg/dL (8.5-10.1); Chloride 104 mmol/L (98-107); Estimated GFR 45.19 (mL/min/1.73m2); Glucose 90 mg/dL (74-106); Potassium 4.1 mmol/L (3.5-5.1); Sodium 142 mmol/L (136-145)
--- NOTE | 2024-01-16 13:41 | DI.VRAD_ITS ---
PROCEDURE INFORMATION: Exam: CT Chest Without Contrast; Diagnostic Exam date and time: 01/16/2024 12:42 PM Age: 83 years old Clinical indication: Injury or trauma; Rlq; Blunt trauma (contusions or hematomas); Injury details: Right flank pain history of stone, history of fall TECHNIQUE: Imaging protocol: Diagnostic computed tomography of the chest without contrast. 3D rendering (Not supervised by radiologist): MIP and/or 3D reconstructed images were created by the technologist. COMPARISON: CT CHEST/ABD/PEL WO 06/21/2024 23:39 FINDINGS: Lungs: Emphysematous changes the lungs. 0.2 cm right anterior lung nodule near the periphery. Pleural spaces: Mild bilateral pleural thickening. Heart: Mild cardiomegaly. Coronary arteries: Calcified coronary arteries. Calcified annulus. Lymph nodes: Unremarkable. No enlarged lymph nodes. Vasculature: Atherosclerotic disease. Bones/joints: Multilevel degenerative changes of the spine. No displaced rib fracture. Age indeterminate left lateral rib fracture. Degenerative changes of the shoulders. High-grade compression deformity of T12 vertebral body. Evidence for prior T12 vertebroplasty. Age indeterminate prior bilateral rib fractures. Soft tissues: Unremarkable. IMPRESSION: 1. No acute cardiopulmonary process. 2. Multiple additional findings as discussed above. PROCEDURE INFORMATION: Exam: CT Abdomen And Pelvis Without Contrast Exam date and time: 01/16/2024 12:42 PM Age: 83 years old Clinical indication: Injury or trauma; Rlq; Blunt trauma (contusions or hematomas); Injury details: Right flank pain history of stone, history of fall TECHNIQUE: Imaging protocol: Computed tomography of the abdomen and pelvis without contrast. 3D rendering (Not supervised by radiologist): MIP and/or 3D reconstructed images were created by the technologist. COMPARISON: CT ABDOMEN PELVIS WO 10/11/2023 09:55 FINDINGS: Limitations: Lack of contrast. Liver: Normal. No mass. Gallbladder and biliary ducts: Normal. No calcified stones. No ductal dilation. Pancreas: Normal. No ductal dilation. Spleen: Normal. No splenomegaly. Adrenal glands: 1.0 cm left adrenal nodule. Kidneys and ureters: Stable exophytic hypodensities of the posterior right kidney. No evidence for renal calculi. No hydronephrosis. Stomach and bowel: Unremarkable. No obstruction. No mucosal thickening. Appendix: No evidence of appendicitis. Intraperitoneal space: Surgical clips in the left lateral abdomen. Vasculature: Atherosclerotic disease. Lymph nodes: Unremarkable. No enlarged lymph nodes. Urinary bladder: Distended urinary bladder with thickened lobular irregular wall. Bladder diverticulum. Reproductive: Hysterectomy. Bones/joints: Multilevel degenerative changes of the spine. Decreased bone mineralization. Compression deformity of T12 vertebral body with evidence of prior vertebroplasty. Soft tissues: Left abdominal wall lateral hernia with loops of nondilated bowel. Enlarging ventral hernia containing loops of bowel. Fat distension of the inguinal canals. Surgical clips in the left anterior pelvic wall. IMPRESSION: 1. Thickened irregular bladder wall may represent cystitis. Lobulated contour of the bladder consistent with bladder diverticulum. 2. Ventral hernia with nondilated bowel loops. Left lower quadrant anterior abdominal wall hernia containing nondilated loops of small and large bowel. 3. Multiple additional findings as discussed above. Dictated and Authenticated by: Darlin Mohan MD. Ordering:RACHEL Riojas MD
--- NOTE | 2024-01-16 13:48 | DI.VRAD_ITS ---
PROCEDURE INFORMATION: Exam: CT Head Without Contrast Exam date and time: 01/16/2024 12:34 PM Age: 83 years old Clinical indication: Injury or trauma; Fall; Blunt trauma (contusions or hematomas); Injury details: Head strike confusion TECHNIQUE: Imaging protocol: Computed tomography of the head without contrast. COMPARISON: CT HEAD WO 11/10/2023 9:52 AM FINDINGS: Brain: Unchanged encephalomalacia in the left occipital lobe. There is hypoattenuation in the supratentorial white matter, likely sequela of chronic small vessel ischemic disease. No acute intracranial hemorrhage, midline shift or mass effect. No acute territorial infarction. Cerebral ventricles: No ventriculomegaly. Paranasal sinuses: Visualized sinuses are unremarkable. No fluid levels. Mastoid air cells: Visualized mastoid air cells are well aerated. Bones: Unremarkable. No acute fracture. Soft tissues: Unremarkable. IMPRESSION: 1. No acute intracranial abnormality. 2. Chronic microvascular disease. Dictated and Authenticated by: Toi Gomez MD. Ordering:RACHEL Riojas MD
--- NOTE | 2024-01-16 15:17 | DI.VRAD_ITS ---
PROCEDURE INFORMATION: Exam: CT Thoracic Spine Without Contrast Exam date and time: 01/16/2024 12:42 PM Age: 83 years old Clinical indication: Low back pain; Pain in thoracic spine; Without myelpathy or radiculopathy TECHNIQUE: Imaging protocol: Computed tomography of the thoracic spine without contrast. Radiation optimization: All CT scans at this facility use at least one of these dose optimization techniques: automated exposure control; mA and/or kV adjustment per patient size (includes targeted exams where dose is matched to clinical indication); or iterative reconstruction. COMPARISON: CT THORACIC LUMBAR SPINE REC 06/21/2024 23:39 FINDINGS: Bones/joints: Degenerative changes at C6-C7 with disc space narrowing. The thoracic vertebral bodies are intact. There is no subluxation. Mild disc space narrowing and mild degenerative changes of the anterior endplates at T3-4, T4-5, T5-6, T6-7, T7-8, T8-9, T9-10, and T10-11. Advanced degenerative changes at T11-12 and T12-L1. High-grade compression deformity of T12 with prior vertebroplasty. Schmorl's node superior endplate of T11. Decreased bone mineralization. Narrowing of the spinal canal at T11-12 secondary to posterior projecting bone from the compression deformity of T12 vertebral body. Soft tissues: Unremarkable. Vasculature: Atherosclerotic disease. Lungs: Visualized lung martínez are well aerated. Pleural spaces: Mild bilateral pleural thickening. Coronary arteries: Calcified annulus. Calcified coronary arteries. IMPRESSION: 1. High-grade compression deformity T12 vertebral body with posterior projecting bone and narrowing of the spinal canal at T11-12. 2. Additional findings as discussed above. PROCEDURE INFORMATION: Exam: CT Lumbar Spine Without Contrast Exam date and time: 01/16/2024 12:42 PM Age: 83 years old Clinical indication: Low back pain; Pain in thoracic spine; Without myelpathy or radiculopathy TECHNIQUE: Imaging protocol: Computed tomography of the lumbar spine without contrast. Radiation optimization: All CT scans at this facility use at least one of these dose optimization techniques: automated exposure control; mA and/or kV adjustment per patient size (includes targeted exams where dose is matched to clinical indication); or iterative reconstruction. COMPARISON: CT THORACIC LUMBAR SPINE REC 06/21/2024 23:39 FINDINGS: Bones/joints: High-grade T12 compression deformity with posterior projecting bone at T11-12. Prior T12 vertebroplasty. The lumbar vertebral bodies are intact. Decreased bone mineralization. Mild facet arthropathy bilaterally at L5-S1. Vacuum disc phenomena at L4-L5 and L5-S1. Mild narrowing of the spinal canal at L4-L5 secondary to a small posterior disc bulge. Slight anterolisthesis of L5 on S1. Lungs: Visualized lung bases are clear. Urinary bladder: Thickened urinary bladder wall. Lobulated urinary bladder consistent with bladder diverticulum. Vasculature: Atherosclerotic disease. Soft tissues: Paraspinous muscle atrophy. IMPRESSION: 1. Mild narrowing of the spinal canal at L4-L5 secondary to a small posterior disc bulge. 2. Degenerative changes of the lumbar spine as discussed above. 3. Additional findings as discussed above. Dictated and Authenticated by: Darlin Mohan MD. Ordering:RACHEL Riojas MD
[2024-01-16] MEDS: Methocarbamol 500 MG TAB PO (15:31)
[2024-01-16] MEDS: Acetaminophen 500 MG TAB 1000 MG PO (15:31)
[2024-01-16 15:53] VITALS: BP 95/73; PULSE 56; O2SAT 95
== END 2024-01-16 16:00 | disposition home or self-care (01) ==
PROVIDERS: Emergency Provider Emergency Medicine; PCP Nurse Practitioner Family
DX: S22.32XA Fracture of one rib, left side, initial encounter for closed fracture (principal); S22.081A Stable burst fracture of T11-T12 vertebra, initial encounter for closed fracture; S22.31XA Fracture of one rib, right side, initial encounter for closed fracture; M79.651 Pain in right thigh; W19.XXXA Unspecified fall, initial encounter; Z93.3 Colostomy status; G30.9 Alzheimer's disease, unspecified; F02.80 Dementia in other diseases classified elsewhere, unspecified severity, without behavioral disturbance, psychotic disturbance, mood disturbance, and anxiety; Z66 Do not resuscitate; E03.9 Hypothyroidism, unspecified; Z79.899 Other long term (current) drug therapy
CPT/HCPCS: 36415; 71250; 80048; 99285; 70450; 74176; 81003; 81015; 85025; 99284

== ENCOUNTER → 2024-01-19 01:55 | Outpatient (CLI) | payer MEDICARE, SELFPAY ==
--- NOTE | 2024-01-19 | DI.US_ITS ---
Exam(s) US ABDOMEN LIMITED EXAM: US ABDOMEN LIMITED CLINICAL HISTORY: K76.0 Fatty (change of) liver, not elsewhere classified,K74.69 Cirrhosis TECHNIQUE: Ultrasound abdomen performed using standard protocol. COMPARISON: US US ABDOMEN LIMITED from 09/29/[address] CHEST/ABD/PEL WO from 01/16/2024 FINDINGS: There is no ascites evident. LIVER: There are no hepatic lesions evident nor dilatation of intrahepatic ducts. GALLBLADDER/BILIARY: Multiple gallstones in the gallbladder lumen. Gallbladder is not distended nor edematous. Gallbladder wall thickness is upper normal. The common hepatic duct isupper normal, measuring 6mm at the level of danny hepatis. PANCREAS: There is no evidence of pancreatic mass nor dilatation of the pancreatic duct. RIGHT KIDNEY:There are exophytic cyst off the posterior cortex of the right kidney, the largest measu ring 2.5 x 2.3 cm. Do not require further imaging follow-up. These correspond to findings on the CT scan. There no solid right renal masses evident. No other focal right renal findings. No hydroneph rosis. IMPRESSION: 1. Cholelithiasis. No evidence of obvious acute cholecystitis. Patient was apparently not tender ov er this area during scanning today. CBD is not dilated. 2. Benign right kidney cysts with size as above. Does not require further imaging workup. There are no solid masses in the right kidney.. 3. There is no ascites. DATA REPOSITORY:
== END ==
PROVIDERS: PCP Nurse Practitioner Family; Visit Provider Nurse Practitioner Family
DX: K76.0 Fatty (change of) liver, not elsewhere classified (principal); K74.69 Other cirrhosis of liver; N32.3 Diverticulum of bladder
CPT/HCPCS: 76705

== ENCOUNTER 2024-01-27 15:49 | Outpatient (REF) | payer MEDICARE, SELFPAY ==
[2024-01-27 19:01] LABS: Anion Gap 6.5 mmol/L (3-11); BUN 13 mg/dL (7-18); CO2 29.5 mmol/L (21.0-32.0); CREATININE 1.1 mg/dL (0.55-1.02); Calcium 8.9 mg/dL (8.5-10.1); Chloride 102 mmol/L (98-107); Estimated GFR 50.17 (mL/min/1.73m2); Glucose 98 mg/dL (74-106); Potassium 4.4 mmol/L (3.5-5.1); Sodium 138 mmol/L (136-145); TSH (W/Ref FT4) 0.38 uIU/mL (0.36-3.74)
== END 2024-01-27 15:50 | disposition home or self-care (01) ==
LOC: NCHCN 15:49
PROVIDERS: PCP Nurse Practitioner Family; Visit Provider Nurse Practitioner Family
DX: E03.9 Hypothyroidism, unspecified (principal); R94.4 Abnormal results of kidney function studies
CPT/HCPCS: 80048; 84443

== ENCOUNTER → 2024-02-08 10:59 | Outpatient (BNVA) | payer MEDICARE, SELFPAY | PROVIDERS: PCP Nurse Practitioner Family; Referring Provider Nurse Practitioner Family; Visit Provider Surgery | DX: R10.31 Right lower quadrant pain (principal); K21.9 Gastro-esophageal reflux disease without esophagitis; K59.01 Slow transit constipation | CPT/HCPCS: 99215; G2212 ==

== ENCOUNTER 2024-02-11 12:54 | Outpatient (REF) | payer MEDICARE, SELFPAY ==
[2024-02-11 13:53] LABS: Abs Immature Grans 0.03 10^3/uL (0.0-0.06); Absolute Basophil Count 0.03 10^3/uL (0.0-0.2); Absolute Eosinophil Count 0.08 10^3/uL (0.0-0.7); Absolute Lymphocyte Count 1.33 10^3/uL (1.2-3.4); Absolute Monocyte Count 0.68 10^3/uL (0.1-0.8); Absolute Neutrophil Count 5.44 10^3/uL (1.2-6.7); Basophils % 0.4 %; Eosinophils % 1.1 %; HCT 27.4 % (36.0-46.0); HGB 8.6 g/dL (11.2-15.7); Immature Grans % 0.4 %; Lymphocytes % 17.5 %; MCH 26.6 pg (27.0-33.0); MCHC 31.4 % (32.0-36.0); MCV 85 fL (80-95); MPV 12.4 fL (8.0-11.0); Neutrophils % 71.6 %; Platelet Count 205 10^3/uL (130-400); RBC 3.23 10^6/uL (3.93-5.22); RDW 17.1 % (11.7-14.6); WBC 7.59 10^3/uL (4.4-10.8)
[2024-02-11 14:16] LABS: Iron 42 ug/dL (50-170); Total Iron Binding Capacity 341 ug/dL (250-450); Transferrin Sat 12 % (15-50)
[2024-02-11 14:23] LABS: Diff Comment Diff Reviewed; Hypochromasia 2+
[2024-02-11 14:38] LABS: ALT 16 U/L (14-59); AST 7 U/L (15-37); Albumin 3.4 g/dL (3.4-5.0); Alkaline Phosphatase 93 U/L (46-116); Anion Gap 11.4 mmol/L (3-11); BUN 18 mg/dL (7-18); Bilirubin, Total 0.32 mg/dL (0.2-1.0); CO2 24.6 mmol/L (21.0-32.0); CREATININE 1.3 mg/dL (0.55-1.02); Calcium 9.1 mg/dL (8.5-10.1); Chloride 104 mmol/L (98-107); Estimated GFR 41.06 (mL/min/1.73m2); Ferritin 26 ng/mL (8-252); Glucose 109 mg/dL (74-106); Potassium 4.6 mmol/L (3.5-5.1); Sodium 140 mmol/L (136-145); Total Protein 6.9 g/dL (6.4-8.2); Vitamin B12 299 pg/mL (193-986)
== END 2024-02-11 12:55 | disposition home or self-care (01) ==
LOC: LBN 12:54
PROVIDERS: PCP Nurse Practitioner Family; Visit Provider Surgery
DX: Z91.81 History of falling (principal); F32.9 Major depressive disorder, single episode, unspecified; I10 Essential (primary) hypertension; E03.9 Hypothyroidism, unspecified; M81.0 Age-related osteoporosis without current pathological fracture; E27.40 Unspecified adrenocortical insufficiency; Z79.52 Long term (current) use of systemic steroids; H81.10 Benign paroxysmal vertigo, unspecified ear; K21.9 Gastro-esophageal reflux disease without esophagitis; K76.0 Fatty (change of) liver, not elsewhere classified; K59.01 Slow transit constipation; Z93.3 Colostomy status; K46.9 Unspecified abdominal hernia without obstruction or gangrene; R10.9 Unspecified abdominal pain; M35.3 Polymyalgia rheumatica; D63.8 Anemia in other chronic diseases classified elsewhere; G30.1 Alzheimer's disease with late onset; F02.80 Dementia in other diseases classified elsewhere, unspecified severity, without behavioral disturbance, psychotic disturbance, mood disturbance, and anxiety; G89.4 Chronic pain syndrome; R41.3 Other amnesia; E85.4 Organ-limited amyloidosis; I68.0 Cerebral amyloid angiopathy; I69.398 Other sequelae of cerebral infarction; H54.7 Unspecified visual loss; G47.33 Obstructive sleep apnea (adult) (pediatric); F19.982 Other psychoactive substance use, unspecified with psychoactive substance-induced sleep disorder; I73.00 Raynaud's syndrome without gangrene; I61.9 Nontraumatic intracerebral hemorrhage, unspecified; K80.20 Calculus of gallbladder without cholecystitis without obstruction; C50.919 Malignant neoplasm of unspecified site of unspecified female breast
CPT/HCPCS: 80053; 82607; 82728; 83540; 83550; 85025; 85045

== ENCOUNTER 2024-03-01 20:23 | Outpatient (REF) | payer MEDICARE, SELFPAY ==
[2024-03-01 21:24] LABS: Abs Immature Grans 0.01 10^3/uL (0.0-0.06); Absolute Basophil Count 0.03 10^3/uL (0.0-0.2); Absolute Eosinophil Count 0.13 10^3/uL (0.0-0.7); Absolute Lymphocyte Count 1.03 10^3/uL (1.2-3.4); Absolute Monocyte Count 0.48 10^3/uL (0.1-0.8); Basophils % 0.5 %; Eosinophils % 2.1 %; HCT 30.7 % (36.0-46.0); HGB 9.1 g/dL (11.2-15.7); Immature Grans % 0.2 %; Lymphocytes % 16.7 %; MCHC 29.6 % (32.0-36.0); MCV 91 fL (80-95); MPV 12.4 fL (8.0-11.0); Monocytes % 7.8 %; Neutrophils % 72.7 %; Platelet Count 229 10^3/uL (130-400); RBC 3.37 10^6/uL (3.93-5.22); RDW-SD 59.9 fL; WBC 6.18 10^3/uL (4.4-10.8)
[2024-03-01 21:30] LABS: Iron 61 ug/dL (50-170); Total Iron Binding Capacity 290 ug/dL (250-450); Transferrin Sat 21 % (15-50)
[2024-03-01 21:44] LABS: Ferritin 29 ng/mL (8-252)
== END 2024-03-01 20:24 | disposition home or self-care (01) ==
LOC: NCHCN 20:23
PROVIDERS: PCP Nurse Practitioner Family; Visit Provider Nurse Practitioner Family
DX: D64.9 Anemia, unspecified (principal)
CPT/HCPCS: 82728; 83540; 83550; 85025

== ENCOUNTER 2024-03-16 16:00 | Outpatient (REF) | payer MEDICARE, SELFPAY ==
[2024-03-16 16:23] LABS: BUN 11 mg/dL (7-18); CREATININE 1.3 mg/dL (0.55-1.02); Calcium 8.8 mg/dL (8.5-10.1); Chloride 104 mmol/L (98-107); Estimated GFR 41.06 (mL/min/1.73m2); Glucose 102 mg/dL (74-106); Potassium 4.1 mmol/L (3.5-5.1); Sodium 141 mmol/L (136-145); Uric Acid 7.4 mg/dL (2.6-6.0)
[2024-03-18 09:17] LABS: Parathyroid Hormone,Intact 54 pg/mL (19-88)
== END 2024-03-16 16:01 | disposition home or self-care (01) ==
LOC: LBN 16:00
PROVIDERS: PCP Nurse Practitioner Family; Visit Provider Internal Medicine Rheumatology
DX: M81.8 Other osteoporosis without current pathological fracture (principal); D64.9 Anemia, unspecified; K21.9 Gastro-esophageal reflux disease without esophagitis; E03.9 Hypothyroidism, unspecified; I10 Essential (primary) hypertension; G89.4 Chronic pain syndrome
CPT/HCPCS: 80048; 82306; 83970; 84550

== ENCOUNTER 2024-03-17 15:00 | Outpatient (REF) | payer MEDICARE, SELFPAY ==
[2024-03-18 11:43] LABS: Bilirubin Negative (Negative); Blood Negative (Negative); Clarity Sl Cloudy (Clear); Glucose Negative (Negative); Ketones Negative (Negative); Leukocyte Esterase Small (Negative); Nitrite Negative (Negative); Urobilinogen 0.2 mg/dL (Up to 0.2)
[2024-03-18 11:51] LABS: RBC 0-2 HPF (0-2); WBC 20-50 HPF (0-5)
[2024-03-18 11:52] LABS: Bacteria Few HPF (Negative); C & S Indicated? C&S Done As Ordered; Casts Negative LPF (Negative); Crystals Negative HPF (Negative); Epithelial Cells Moderate HPF (Negative); Mucus Negative (Negative); Other Cells Few Renal (Negative)
== END 2024-03-17 15:01 | disposition home or self-care (01) ==
LOC: LBN 15:00
PROVIDERS: PCP Nurse Practitioner Family; Visit Provider Registered Nurse
DX: R41.82 Altered mental status, unspecified (principal); R82.998 Other abnormal findings in urine
CPT/HCPCS: 81003; 81015; 87086

== ENCOUNTER 2024-03-18 13:36 | Emergency (ER) | payer MEDICARE, SELFPAY ==
--- NOTE | 2024-03-18 13:30 | RT.EKG_ITS ---
APPROVED REPORT Exam: Resting ECG Reason for Exam: AMS Patient Location: E HR:64 bpm ECG Measurements Heart Rate 64 AXIS MT 175 P -14 QRSd 113 QRS -8 QT 505 T -54 QTc 523 Conclusion Sinus rhythm...normal P axis, V-rate 60- 99 Incomplete RBBB and LAFB...axis(240,-40), S>R II III aVF Abnrm T, consider ischemia, anterolateral lds...T <-0.20mV, I aVL V2-V6 Prolonged QT interval...QTc >500mS
[2024-03-18 13:49] VITALS: BP 155/43; PULSE 71; RESP 14; TEMP 37; O2SAT 98
--- NOTE | 2024-03-18 14:30 | DI.CT_ITS ---
Exam(s) CT HEAD WO EXAM: CT HEAD WO CLINICAL HISTORY: ams. TECHNIQUE: Imaging Protocol: Axial computed tomography images with coronal and sagittal reformatted images were created and reviewed COMPARISON: CT CT HEAD WO from 01/16/2024 FINDINGS: Exam somewhat limited by motion. Ventricles and Extra axial spaces: Mild dilatation of the posterior horn of the left lateral ventricl e secondary to adjacent old infarct. Hemorrhage: None. Cerebral parenchyma: No evidence of acute infarct or mass. Old left posterior septal parietal infarc t. Mild atrophy. White matter changes of small vessel disease. Midline shift: None. Brainstem/Cerebellum: Normal. Calvarium: Normal. Visualized Paranasal sinuses:Clear. Mastoids: Clear. Soft Tissues: Unremarkable. ORBITS: Unremarkable. PITUITARY: Not enlarged. IMPRESSION: No acute intracranial process. RADIATION DOSE DELIVERED: Total DLP DATA REPOSITORY: All CT scans at this facility are submitted to the National Radiology Data Registry (NRDR) Dose Index Registry (DIR) with the [employer] ([employer]). RADIATION OPTIMIZATION: All CT scans at this facility use at least one of these dose optimization te chniques: automated exposure control; mA and/or kV adjustment per patient size (includes targeted exa ms where dose is matched to clinical indication); or iterative reconstruction.
--- NOTE | 2024-03-18 14:38 | ED.GENADUL_ITS ---
Discharge Plan Disposition Patient Disposition: Home Condition: Improving Discharge Details Chief Complaint: GenMedical Clinical Impression: Altered mental status Primary Care Provider: Ariadna Trevino ED Provider: Matheus Reese Home Meds and New Rx's Prescriptions: No Action polyethylene glycol 3350 [Miralax] 17 gram/dose powder 17 g PO DAILY PRN cyclobenzaprine 5 mg tablet 5 mg PO TID PRN (Reason: muscle spasm) Qty: 15 0RF Rx Instructions: avoid concurrent use with oxycodone monitor for sedation/fall risk, especially during initiation of medication trial allopurinol 100 mg tablet 100 mg PO DAILY levothyroxine 125 mcg capsule 125 mcg PO DAILY famotidine [Pepcid] 40 mg tablet 40 mg PO BID Qty: 60 12RF ferrous gluconate 324 mg (38 mg iron) tablet 324 mg PO BID Qty: 60 12RF sennosides 8.6 mg tablet 8.6 mg PO DAILY naloxone 4 mg/actuation spray,non-aerosol 1 spray intranasal Q2M PRN Rx Instructions: spray 1 dose into ONE nostril; alternate nostrils w each dose until help arrives trazodone 100 mg tablet 100 mg PO QHS Qty: 30 1RF ursodiol 250 mg tablet See Rx Instructions .ROUTE .COMPLEX Qty: 60 11RF Dose Instruction: 1 TAB BY MOUTH TWICE A DAY Rx Instructions: 1 TAB BY MOUTH TWICE A DAY oxycodone 5 mg tablet 5 mg PO BID MDD 10 mg PRN (Reason: severe pain (scale score 7-10)) Qty: 30 0RF fentanyl 12 mcg/hr patch 72 hour 1 patch transdermal Q72H MDD 1 patch Qty: 10 0RF lidocaine 4 % adhesive patch,medicated 1 patch topical DAILY PRN (Reason: pain) Qty: 30 12RF lisinopril 20 mg tablet 20 mg PO DAILY duloxetine [Cymbalta] 20 mg capsule,delayed release(DR/EC) 60 mg PO DAILY bisacodyl [Dulcolax (bisacodyl)] 5 mg tablet,delayed release (DR/EC) 5 mg PO QHS PRN melatonin [Meladox] 3 mg tablet extended release 3 mg PO HS memantine 5 mg tablet 5 mg PO .COMPLEX Patient Comments: Recent frequent changes to dosing and frequency. Physician updated. 03/18/24 Rx Instructions: 5 mg orally; olanzapine 5 mg tablet 5 mg PO BID PRN Patient Comments: 5-10 mg as needed quetiapine [Seroquel] 25 mg tablet 25 mg PO DAILY Discharge Instructions Instructions: Delirium (confusion) Additional Instructions: Please follow with your primary care physician return to the Emergency Department for any worsening symptoms HPI General Date/Time Provider Initiated Documentation: 03/18/24 13:37 . HPI Narrative: 83-year-old female history of dementia referred in for evaluation of fluctuating mental status at [facility], patient endorses fatigue generalized in nature. Denies chest pain shortness of breath headache nausea vomiting or other systemic signs of illness Related Data Home Medications ?Medication ?Instructions ?Recorded ?Confirmed polyethylene glycol 3350 17 17 g PO DAILY PRN 06/05/21 03/18/24 gram/dose oral powder (Miralax) cyclobenzaprine 5 mg tablet 5 mg PO TID PRN muscle spasm #15 07/23/23 03/18/24 tabs trazodone 100 mg tablet 100 mg PO QHS sleep #30 tabs 08/24/23 03/18/24 lisinopril 20 mg tablet 20 mg PO DAILY 10/02/23 03/18/24 bisacodyl 5 mg tablet,delayed 5 mg PO QHS PRN 11/10/23 03/18/24 release (Dulcolax (bisacodyl)) melatonin 3 mg tablet,extended 3 mg PO HS 11/10/23 03/18/24 release (Meladox) naloxone 4 mg/actuation nasal spray 1 spray intranasal Q2M PRN 12/11/23 03/18/24 sennosides 8.6 mg tablet 8.6 mg PO DAILY 12/11/23 03/18/24 allopurinol 100 mg tablet 100 mg PO DAILY 12/16/23 03/18/24 duloxetine 20 mg capsule,delayed 60 mg PO DAILY 12/31/23 03/18/24 release (Cymbalta) levothyroxine 125 mcg capsule 125 mcg PO DAILY 12/31/23 03/18/24 famotidine 40 mg tablet (Pepcid) 40 mg PO BID #60 tabs 02/08/24 03/18/24 ursodiol 250 mg tablet See Rx Instructions .Route 02/09/24 03/18/24 .COMPLEX #60 tabs ferrous gluconate 324 mg (38 mg 324 mg PO BID #60 tabs 02/18/24 03/18/24 iron) tablet oxycodone 5 mg tablet 5 mg PO BID PRN severe pain (scale 02/22/24 03/18/24 score 7-10) #30 tabs fentanyl 12 mcg/hr transdermal 1 patch transdermal Q72H #10 ea 03/15/24 03/18/24 patch lidocaine 4 % topical patch 1 patch topical DAILY PRN pain #30 03/15/24 03/18/24 ea memantine 5 mg tablet 5 mg PO .COMPLEX 03/18/24 03/18/24 olanzapine 5 mg tablet 5 mg PO BID PRN 03/18/24 03/18/24 quetiapine 25 mg tablet (Seroquel) 25 mg PO DAILY 03/18/24 03/18/24 Previous Rx's ?Medication ?Instructions ?Recorded cyclobenzaprine 5 mg tablet 5 mg PO TID PRN muscle spasm #15 07/23/23 tabs trazodone 100 mg tablet 100 mg PO QHS sleep #30 tabs 08/24/23 famotidine 40 mg tablet (Pepcid) 40 mg PO BID #60 tabs 02/08/24 ursodiol 250 mg tablet See Rx Instructions .Route 02/09/24 .COMPLEX #60 tabs ferrous gluconate 324 mg (38 mg 324 mg PO BID #60 tabs 02/18/24 iron) tablet oxycodone 5 mg tablet 5 mg PO BID PRN severe pain (scale 02/22/24 score 7-10) #30 tabs fentanyl 12 mcg/hr transdermal 1 patch transdermal Q72H #10 ea 03/15/24 patch lidocaine 4 % topical patch 1 patch topical DAILY PRN pain #30 03/15/24 ea Allergies Allergy/AdvReac Type Severity Reaction Status Date / Time banana Allergy Intermediate Other (See Verified 02/08/24 11:08 Comment) cucumber Allergy Intermediate Other (See Verified 02/08/24 11:08 Comment) Iodinated Contrast Media Allergy Intermediate Anaphylaxis Unverified 02/08/24 11:08 chloramphenicol AdvReac Severe KIDNEY Verified 02/08/24 11:08 FAILURE tetracycline AdvReac Severe KIDNEY Verified 02/08/24 11:08 FAILURE melon AdvReac Intermediate Cantaloupe-Abd Verified 02/08/24 11:08 pain, diarrhea donepezil AdvReac Cardiac Unverified 02/08/24 11:08 Dysrhythmia ADHESIVE TAPE Allergy Intermediate takes skin Uncoded 02/08/24 11:08 off SUTURE MATERIAL Allergy Intermediate Purluent Uncoded 02/08/24 11:08 Drainage General Stated Complaint: GenMedical JOSHUA: 3 Exam Narrative Exam Narrative: Interactive resting comfortably no acute distress Moist mucous membranes tongue secretions Normal conjunctiva no scleral icterus Clear bilaterally speaking full sentences no wheezes rales or rhonchi Abdomen soft nontender nondistended, ostomy in place with good output Moving all extremities without deficits, cranial nerves intact, patient alert to place and self however not to time believes it is 2020 Course Vital Signs Vital signs: Vital Signs Temperature 37.0 C 03/18/24 13:49 Pulse 71 03/18/24 13:49 Respiratory Rate 14 03/18/24 13:49 Blood Pressure 155/43 H 03/18/24 13:49 Pulse Oximetry 98 03/18/24 13:49 Temperature 37.0 C 03/18/24 13:49 Temperature Source Temporal Artery Scan 03/18/24 13:49 Pulse 71 03/18/24 13:49 Respiratory Rate 14 03/18/24 13:49 Blood Pressure 155/43 H 03/18/24 13:49 Blood Pressure Position Supine 03/18/24 13:49 Pulse Oximetry 98 03/18/24 13:49 Oxygen Delivery Method Room Air 03/18/24 13:49 Oxygen Flow Rate 0 03/18/24 13:49 Pain Level 4 03/18/24 13:49 Medical Decision Making 83-year-old female history of dementia presents referred in from [facility] for evaluation of fluctuating mental status, alert to self and place however not alert to time, no focal deficits no external signs of trauma, afebrile nontoxic hemodynamically stable no cardiopulmonary complaints, generalized fatigue reported by patient, has had recent change in her memantine dosages; consider delirium in the setting of medication adjustment versus UTI versus viral illness versus metabolic derangement low suspicion for ACS PE aortic pathology intracranial hemorrhage stroke or seizure however given patient's age and presentation will obtain labs imaging viral swab urinalysis close reassessment. 16: 52 resting heart with no acute distress. Labs and imaging unremarkable. Quality:SDOH Health Related Social Needs: Health related social needs risk of homeless, transpo insecurity, personal safety PFSH All Active Problems (Updated 03/18/24 @ 16:53 by Matheus Reese MD) Altered mental status (Acute) Osteoarthritis of spine with radiculopathy, lumbar region (Acute) Bladder diverticulum (Acute) Coronary artery calcification seen on CAT scan (Acute) Pancolonic diverticulosis (Acute) Gallstones (Acute) DNR (do not resuscitate) (Acute) See 10/15/2023 COLST: DNI/DNR, + transfer and treat Current chronic use of systemic steroids (Acute) Counseling regarding advance care planning and goals of care (Acute) Palliative care patient (Acute) 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 Patient aware that there is higher than recommended dose. Makes informed decision, drug contract with [facility] Chronic pain syndrome (Chronic) Due to chronic back pain, 08/2021-drug contract at [facility], V PMS review,11/2021-urine drug screen Using oxycodone for pain mgmt when taking a shower. 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 She did see surgery down at in 2022. This is a large extensive surgery and they did not think she was a good surgical candidate due to her frailty. GERD (gastroesophageal reflux disease) (Chronic) Urethral caruncle (Chronic) dx by Obgyn Gout (Chronic) Rectovaginal fistula (Chronic) Anemia of chronic disease (Chronic) Constipation by delayed colonic transit (Chronic) Urinary retention with incomplete bladder emptying (Chronic) Adrenal insufficiency (Chronic) Iatrogenic secondary to chronic steroid use, on low-dose chronic steroid Primary osteoarthritis of left knee (Chronic 07/30/15) PMR (polymyalgia rheumatica) (Chronic 01/15/16) DX 2016 : /curtis resp. to Prednisone Osteoporosis (Chronic) Bone density scan : 11/2021, managed by [facility], on prolia Obstructive sleep apnea syndrome (Chronic) after closed head injury pt not using CPAP machine Non-alcoholic fatty liver disease (Chronic) persistent elevated AST echo. 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 Medical History (Updated 03/18/24 @ 16:53 by Matheus Reese MD) Cerebral amyloid angiopathy : possible diagnosis re:brain MRI/ [place] [facility]Anthony Avalos Visual field loss Anterolisthesis of lumbar spine Multiple fractures of ribs Abdominal pain in female Alzheimer's dementia Brain bleed 05/2021 tx at [facility], intra parenchymal left-sided hemorrhage-treated through [facility] September 2023, new hemorrhagic stroke felt to be secondary to CAA, see ED notes T12 burst fracture Compression fracture of body of thoracic vertebra Palliative care patient Perforation of colon as colonoscopy complication Tuberculosis Insomnia Raynaud's disease Excessive sweating (06/02/16) daytime sweating if >74 degrees/ fatigue normal cbc, spep,echocardiogram,sed.rate,cmp Colon polyp (06/28/18) adenoma colon pollyps-1997; none on subsequent colonoscopies; most recent c- scope in 2005 was normal 2017-adenoma Surgical History S/P rotator cuff repair S/P BSO (bilateral salpingo-oophorectomy) S/P appendectomy S/P hysterectomy S/P kyphoplasty H/O partial resection of colon Sigmoid colon resection 06/28/18 S/P tonsillectomy H/O dilation and curettage Laparoscopic, Ovarian Cystectomy B/L EGD - [facility] (~2003) MILD EROSIVE ESOPHAGITIS, NO PINON'S ON BIOPSY Colonoscopy - [facility] ADENOMA COLON POLYPS 1997, NONE ON MULTIPLE SUBSEQUENT COLONOSCOPIES, MOST RECENT C-SCOPE 2006 WAS NORMAL, 2018 - cecal polyp, diverticulosis Family History Mother , in her 80s from pneumonia Heart disease Pneumonia Father , from complications of prostate surgery in his 80s Stroke Personal history of malignant neoplasm Heart disease Brother , aged 68 Alcohol abuse Cirrhosis with alcoholism Grandfather Essential hypertension Heart disease Grandmother Personal history of malignant neoplasm Stroke Grandmother Personal history of malignant neoplasm Son , from his drinking/SA; her oldest child Alcohol abuse Social History Smoking/Tobacco Use Status: Former Tobacco Use Smoking risk assessment performed?: Yes Alcohol Intake: current Alcohol Intake frequency: holidays/special occasions only Alcohol type: hard liquor Details: HOLIDAYS AND SPECIAL OCCASIONS ONLY Drug use: Never Substance use type: does not use Counseling given: No Household members: other Details: 2 Housing: house 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
--- NOTE | 2024-03-18 15:01 | DI.RAD_ITS ---
Exam(s) XR CHEST 2V PA LATERAL EXAM: XR CHEST 2V PA LATERAL CLINICAL HISTORY: ams TECHNIQUE: 2D digital imaging was performed. Two views. COMPARISON: CT CT CHEST/ABD/PEL WO from 01/16/2024 FINDINGS: HEART: Normal size. Aorta: Not dilated. PULMONARY VASCULATURE: Normal. MEDIASTINUM: Unremarkable. LUNGS: Mild fibrotic changes, otherwise clear. PLEURAL SPACE: No pleural effusion or pneumothorax. BONE:Old T12 compression fracture with evidence of vertebroplasty. No new fractures. Old right rib fractures. SOFT TISSUES: Unremarkable. IMPRESSION: No acute abnormality. DATA REPOSITORY: RADIATION DOSE DELIVERED:
[2024-03-18 15:23] LABS: Bilirubin Negative (Negative); Blood Negative (Negative); Clarity Clear (Clear); Glucose Negative (Negative); Ketones Negative (Negative); Leukocyte Esterase Negative (Negative); Nitrite Negative (Negative); Specific Gravity 1.015 (1.005-1.025); Urobilinogen 0.2 mg/dL (Up to 0.2); pH 5.5 (5-8)
[2024-03-18 15:44] VITALS: BP 171/66; PULSE 71; RESP 18; O2SAT 98
[2024-03-18 15:59] LABS: COVID-19 PCR Negative (Negative); Influenza A PCR Negative (Negative); Influenza B PCR Negative (Negative); RSV PCR Negative (Negative)
[2024-03-18 16:01] LABS: Source Nasopharynx
[2024-03-18 16:05] LABS: Abs Immature Grans 0.03 10^3/uL (0.0-0.06); Absolute Basophil Count 0.03 10^3/uL (0.0-0.2); Absolute Eosinophil Count 0.18 10^3/uL (0.0-0.7); Absolute Lymphocyte Count 1.24 10^3/uL (1.2-3.4); Absolute Monocyte Count 0.77 10^3/uL (0.1-0.8); Absolute Neutrophil Count 5.18 10^3/uL (1.2-6.7); Basophils % 0.4 %; Eosinophils % 2.4 %; HGB 9.7 g/dL (11.2-15.7); Immature Grans % 0.4 %; Lymphocytes % 16.7 %; MCH 27.3 pg (27.0-33.0); MCHC 29.4 % (32.0-36.0); MCV 93 fL (80-95); MPV 9.8 fL (8.0-11.0); Monocytes % 10.4 %; Neutrophils % 69.7 %; Platelet Count 208 10^3/uL (130-400); RBC 3.55 10^6/uL (3.93-5.22); RDW 16.9 % (11.7-14.6); RDW-SD 57.9 fL; WBC 7.43 10^3/uL (4.4-10.8)
[2024-03-18 16:28] LABS: ALT 7 U/L (14-59); AST 12 U/L (15-37); Albumin 2.8 g/dL (3.4-5.0); Alkaline Phosphatase 87 U/L (46-116); Anion Gap 7.7 mmol/L (3-11); BUN 14 mg/dL (7-18); CO2 29.3 mmol/L (21.0-32.0); CREATININE 1.3 mg/dL (0.55-1.02); Chloride 105 mmol/L (98-107); Estimated GFR 41.06 (mL/min/1.73m2); Glucose 111 mg/dL (74-106); Potassium 3.9 mmol/L (3.5-5.1); Sodium 142 mmol/L (136-145); TSH (W/Ref FT4) 1.82 uIU/mL (0.36-3.74); Total Protein 7.2 g/dL (6.4-8.2)
[2024-03-18 18:00] VITALS: BP 161/58; PULSE 65; RESP 16; TEMP 36.6; O2SAT 95
== END 2024-03-18 18:00 | disposition home or self-care (01) ==
PROVIDERS: Emergency Provider Emergency Medicine; PCP Nurse Practitioner Family
DX: R41.82 Altered mental status, unspecified (principal); G30.1 Alzheimer's disease with late onset; F02.80 Dementia in other diseases classified elsewhere, unspecified severity, without behavioral disturbance, psychotic disturbance, mood disturbance, and anxiety; I10 Essential (primary) hypertension; Z87.891 Personal history of nicotine dependence
CPT/HCPCS: 80053; 87637; 93005; 99285; 70450; 71046; 81003; 84443; 85025; 93010; 99284

== ENCOUNTER 2024-03-20 04:55 | Inpatient (IN) | payer MEDICARE, SELFPAY ==
[2024-03-20] VITALS (83 sets, daily range): BP systolic 106–225; BP diastolic 33–195; PULSE 50–76; RESP 11–22; TEMP 36–36.6; O2SAT 2–98
--- NOTE | 2024-03-20 04:59 | ED.GENADUL_ITS ---
Discharge Plan Discharge Details Chief Complaint: Fall/Non TraumaCriteria Primary Care Provider: Ariadna Trevino ED Provider: Attila Amado [facility] and New Rx's Prescriptions: No Action polyethylene glycol 3350 [Miralax] 17 gram/dose powder 17 g PO DAILY PRN cyclobenzaprine 5 mg tablet 5 mg PO TID PRN (Reason: muscle spasm) Qty: 15 0RF Rx Instructions: avoid concurrent use with oxycodone monitor for sedation/fall risk, especially during initiation of medication trial allopurinol 100 mg tablet 100 mg PO DAILY levothyroxine 125 mcg capsule 125 mcg PO DAILY famotidine [Pepcid] 40 mg tablet 40 mg PO BID Qty: 60 12RF ferrous gluconate 324 mg (38 mg iron) tablet 324 mg PO BID Qty: 60 12RF sennosides 8.6 mg tablet 8.6 mg PO DAILY naloxone 4 mg/actuation spray,non-aerosol 1 spray intranasal Q2M PRN Rx Instructions: spray 1 dose into ONE nostril; alternate nostrils w each dose until help arrives trazodone 100 mg tablet 100 mg PO QHS Qty: 30 1RF ursodiol 250 mg tablet See Rx Instructions .ROUTE .COMPLEX Qty: 60 11RF Dose Instruction: 1 TAB BY MOUTH TWICE A DAY Rx Instructions: 1 TAB BY MOUTH TWICE A DAY oxycodone 5 mg tablet 5 mg PO BID MDD 10 mg PRN (Reason: severe pain (scale score 7-10)) Qty: 30 0RF fentanyl 12 mcg/hr patch 72 hour 1 patch transdermal Q72H MDD 1 patch Qty: 10 0RF lidocaine 4 % adhesive patch,medicated 1 patch topical DAILY PRN (Reason: pain) Qty: 30 12RF lisinopril 20 mg tablet 20 mg PO DAILY duloxetine [Cymbalta] 20 mg capsule,delayed release(DR/EC) 60 mg PO DAILY bisacodyl [Dulcolax (bisacodyl)] 5 mg tablet,delayed release (DR/EC) 5 mg PO QHS PRN melatonin [Meladox] 3 mg tablet extended release 3 mg PO HS memantine 5 mg tablet 5 mg PO .COMPLEX Patient Comments: Recent frequent changes to dosing and frequency. Physician updated. 03/18/24 Rx Instructions: 5 mg orally; olanzapine 5 mg tablet 5 mg PO BID PRN Patient Comments: 5-10 mg as needed quetiapine [Seroquel] 25 mg tablet 25 mg PO DAILY HPI General Mode of arrival: EMS . Date/Time Provider Initiated Documentation: 03/20/24 04:58 . Information obtained by: patient, EMS, RN notes reviewed and old records reviewed . HPI Narrative: Patient brought to ED by ambulance from [facility] after being found on the floor by staff. This is presumed an unwitnessed fall. Patient has history of dementia and has no recollection of the fall. She was just in the ED 2 days ago with altered mental status with unremarkable workup. Patient arrives complaining of head pain, neck pain, left hip pain. She is unable to provide any meaningful history in regards to what occurred tonight. Related Data Home Medications ?Medication ?Instructions ?Recorded ?Confirmed polyethylene glycol 3350 17 17 g PO DAILY PRN 06/05/21 03/18/24 gram/dose oral powder (Miralax) cyclobenzaprine 5 mg tablet 5 mg PO TID PRN muscle spasm #15 07/23/23 03/18/24 tabs trazodone 100 mg tablet 100 mg PO QHS sleep #30 tabs 08/24/23 03/18/24 lisinopril 20 mg tablet 20 mg PO DAILY 10/02/23 03/18/24 bisacodyl 5 mg tablet,delayed 5 mg PO QHS PRN 11/10/23 03/18/24 release (Dulcolax (bisacodyl)) melatonin 3 mg tablet,extended 3 mg PO HS 11/10/23 03/18/24 release (Meladox) naloxone 4 mg/actuation nasal spray 1 spray intranasal Q2M PRN 12/11/23 03/18/24 sennosides 8.6 mg tablet 8.6 mg PO DAILY 12/11/23 03/18/24 allopurinol 100 mg tablet 100 mg PO DAILY 12/16/23 03/18/24 duloxetine 20 mg capsule,delayed 60 mg PO DAILY 12/31/23 03/18/24 release (Cymbalta) levothyroxine 125 mcg capsule 125 mcg PO DAILY 12/31/23 03/18/24 famotidine 40 mg tablet (Pepcid) 40 mg PO BID #60 tabs 02/08/24 03/18/24 ursodiol 250 mg tablet See Rx Instructions .Route 02/09/24 03/18/24 .COMPLEX #60 tabs ferrous gluconate 324 mg (38 mg 324 mg PO BID #60 tabs 02/18/24 03/18/24 iron) tablet oxycodone 5 mg tablet 5 mg PO BID PRN severe pain (scale 02/22/24 03/18/24 score 7-10) #30 tabs fentanyl 12 mcg/hr transdermal 1 patch transdermal Q72H #10 ea 03/15/24 03/18/24 patch lidocaine 4 % topical patch 1 patch topical DAILY PRN pain #30 03/15/24 03/18/24 ea memantine 5 mg tablet 5 mg PO .COMPLEX 03/18/24 03/18/24 olanzapine 5 mg tablet 5 mg PO BID PRN 03/18/24 03/18/24 quetiapine 25 mg tablet (Seroquel) 25 mg PO DAILY 03/18/24 03/18/24 Previous Rx's ?Medication ?Instructions ?Recorded cyclobenzaprine 5 mg tablet 5 mg PO TID PRN muscle spasm #15 07/23/23 tabs trazodone 100 mg tablet 100 mg PO QHS sleep #30 tabs 08/24/23 famotidine 40 mg tablet (Pepcid) 40 mg PO BID #60 tabs 02/08/24 ursodiol 250 mg tablet See Rx Instructions .Route 02/09/24 .COMPLEX #60 tabs ferrous gluconate 324 mg (38 mg 324 mg PO BID #60 tabs 02/18/24 iron) tablet oxycodone 5 mg tablet 5 mg PO BID PRN severe pain (scale 02/22/24 score 7-10) #30 tabs fentanyl 12 mcg/hr transdermal 1 patch transdermal Q72H #10 ea 03/15/24 patch lidocaine 4 % topical patch 1 patch topical DAILY PRN pain #30 03/15/24 ea Allergies Allergy/AdvReac Type Severity Reaction Status Date / Time banana Allergy Intermediate Other (See Verified 03/20/24 05:00 Comment) cucumber Allergy Intermediate Other (See Verified 03/20/24 05:00 Comment) Iodinated Contrast Media Allergy Intermediate Anaphylaxis Unverified 03/20/24 05:00 chloramphenicol AdvReac Severe KIDNEY Verified 03/20/24 05:00 FAILURE tetracycline AdvReac Severe KIDNEY Verified 03/20/24 05:00 FAILURE melon AdvReac Intermediate Cantaloupe-Abd Verified 03/20/24 05:00 pain, diarrhea donepezil AdvReac Cardiac Unverified 03/20/24 05:00 Dysrhythmia ADHESIVE TAPE Allergy Intermediate takes skin Uncoded 03/20/24 05:00 off SUTURE MATERIAL Allergy Intermediate Purluent Uncoded 03/20/24 05:00 Drainage General JOSHUA: 3 Review of Systems Unobtainable due to (Dementia) Exam Narrative Exam Narrative: Const: Obese elderly female in NAD. VS per triage. HEENT: NC. Bruising noted over right lateral frontal scalp. Neck: Supple. Trachea midline. Minimal posterior tenderness. Lungs: Normal respiratory effort. Lungs are clear. Cor: RRR without murmur. Good radial pulses. GI: Soft/ND/NT. Neuro: A+O x 2. Normal speech. Cranial nerves II - XII grossly intact. No gross motor or sensory deficit. Ext: No C/C/E. Able to range all 4 extremities without difficulty or pain. Medical Decision Making Patient presenting to ED by ambulance after presumed fall. Patient unable to provide adequate history. Complains of head, neck, left hip pain. Just here 2 days ago with altered mental status with unremarkable workup. An EKG shows sinus rhythm with inverted T waves which are old, no change from previous EKG. Proceed with head and cervical spine CT scan and left hip x-ray. While here patient noted to be desaturating into the mid 80s. She is not complaining of chest pain or shortness of breath. She is not typically on oxygen. She is placed on nasal cannula oxygen with improvement of saturations. Because of these findings a chest x-ray was ordered as well as laboratory studies. Patient's head and cervical spine preliminary radiology read are negative. Chest x-ray and left hip with pelvis x-ray negative for acute findings per my read and preliminary radiology read. Laboratory studies with a stable hemoglobin. White count is normal. Chemistries are normal and kidney function remained stable. Initial troponin is normal. A D-dimer is markedly elevated greater than 5000. Patient unfortunately has reported anaphylaxis to IV contrast. She is given IV Solu-Medrol at 7 AM. Plan for CTA of the chest at 11 AM with IV diphenhydramine being given at 10 AM. Patient has remained stable otherwise. Repeat troponin will be obtained at 830. Patient signed out to oncoming ED physician pending these results. Medical Records Medical records reviewed: Yes I reviewed the patient's medical records. Medical records narrative: Recent ED visit Imaging Data Radiologic Study: Attestation: I personally reviewed and interpreted this imaging study as follows: Imaging: X-Ray My impression: See MDM Lab Data Lab results reviewed: Yes I reviewed the patient's lab results. ECG Data Attestation: I personally reviewed and interpreted this ECG (s) as follows: Prior ECG tracings: available for review Interpretation: See EKG, unchanged PFSH All Active Problems Altered mental status (Acute) Osteoarthritis of spine with radiculopathy, lumbar region (Acute) Bladder diverticulum (Acute) Coronary artery calcification seen on CAT scan (Acute) Pancolonic diverticulosis (Acute) Gallstones (Acute) DNR (do not resuscitate) (Acute) See 10/15/2023 COLST: DNI/DNR, + transfer and treat Current chronic use of systemic steroids (Acute) Counseling regarding advance care planning and goals of care (Acute) Palliative care patient (Acute) 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 Patient aware that there is higher than recommended dose. Makes informed decision, drug contract with [facility] Chronic pain syndrome (Chronic) Due to chronic back pain, 08/2021-drug contract at [facility], V PMS review,11/2021-urine drug screen Using oxycodone for pain mgmt when taking a shower. 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 She did see surgery down at in 2022. This is a large extensive surgery and they did not think she was a good surgical candidate due to her frailty. GERD (gastroesophageal reflux disease) (Chronic) Urethral caruncle (Chronic) dx by Obgyn Gout (Chronic) Rectovaginal fistula (Chronic) Anemia of chronic disease (Chronic) Constipation by delayed colonic transit (Chronic) Urinary retention with incomplete bladder emptying (Chronic) Adrenal insufficiency (Chronic) Iatrogenic secondary to chronic steroid use, on low-dose chronic steroid Primary osteoarthritis of left knee (Chronic 07/30/15) PMR (polymyalgia rheumatica) (Chronic 01/15/16) DX 2016 : /curtis resp. to Prednisone Osteoporosis (Chronic) Bone density scan : 11/2021, managed by Rheum [facility] [place], on prolia Obstructive sleep apnea syndrome (Chronic) after closed head injury pt not using CPAP machine Non-alcoholic fatty liver disease (Chronic) persistent elevated AST echo. 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 Medical History Cerebral amyloid angiopathy : possible diagnosis re:brain MRI/ followed by Neuro [facility] Dr.Anthony Avalos Visual field loss Anterolisthesis of lumbar spine Multiple fractures of ribs Abdominal pain in female Alzheimer's dementia Brain bleed 05/2021 tx at [facility], intra parenchymal left-sided hemorrhage-treated through [facility] September 2023, new hemorrhagic stroke felt to be secondary to CAA, see ED notes T12 burst fracture Compression fracture of body of thoracic vertebra Palliative care patient Perforation of colon as colonoscopy complication Tuberculosis Insomnia Raynaud's disease Excessive sweating (06/02/16) daytime sweating if >74 degrees/ fatigue normal cbc, spep,echocardiogram,sed.rate,cmp Colon polyp (06/28/18) adenoma colon pollyps-1997; none on subsequent colonoscopies; most recent c- scope in 2005 was normal 2018-adenoma Surgical History S/P rotator cuff repair S/P BSO (bilateral salpingo-oophorectomy) S/P appendectomy S/P hysterectomy S/P kyphoplasty H/O partial resection of colon Sigmoid colon resection 06/28/18 S/P tonsillectomy H/O dilation and curettage Laparoscopic, Ovarian Cystectomy B/L EGD - [facility] (~2003) MILD EROSIVE ESOPHAGITIS, NO PINON'S ON BIOPSY Colonoscopy - [facility] ADENOMA COLON POLYPS 1997, NONE ON MULTIPLE SUBSEQUENT COLONOSCOPIES, MOST RECENT C-SCOPE 2005 WAS NORMAL, 2018 - cecal polyp, diverticulosis Family History Mother , in her 80s from pneumonia Heart disease Pneumonia Father , from complications of prostate surgery in his 80s Stroke Personal history of malignant neoplasm Heart disease Brother , aged 68 Alcohol abuse Cirrhosis with alcoholism Grandfather Essential hypertension Heart disease Grandmother Personal history of malignant neoplasm Stroke Grandmother Personal history of malignant neoplasm Son , from his drinking/SA; her oldest child Alcohol abuse Social History Smoking/Tobacco Use Status: Former Tobacco Use Smoking risk assessment performed?: Yes Alcohol Intake: current Alcohol Intake frequency: holidays/special occasions only Alcohol type: hard liquor Details: HOLIDAYS AND SPECIAL OCCASIONS ONLY Drug use: Never Substance use type: does not use Counseling given: No Household members: other Details: 2 Housing: house 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
--- NOTE | 2024-03-20 05:00 | RT.EKG_ITS ---
APPROVED REPORT Exam: Resting ECG Reason for Exam: fall Patient Location: E HR:58 bpm ECG Measurements Heart Rate 58 AXIS MD 178 P -17 QRSd 121 QRS 4 QT 520 T -85 QTc 513 Conclusion Sinus bradycardia...rate< 60 IVCD, consider RBBB...QRSd>120mS, terminal axis(90,270) Abnrm T, probable ischemia, anterolateral lds...T <-0.50mV, I aVL V2-V6 There are no significant changes compared to prior EKG performed on 03/18/2024 at 13:51.
[2024-03-20 05:44] LABS: HCT 30.3 % (36.0-46.0); HGB 9.2 g/dL (11.2-15.7); MCH 27.8 pg (27.0-33.0); MCHC 30.4 % (32.0-36.0); MCV 92 fL (80-95); MPV 9.9 fL (8.0-11.0); Platelet Count 196 10^3/uL (130-400); RBC 3.31 10^6/uL (3.93-5.22); RDW 16.5 % (11.7-14.6); RDW-SD 55.9 fL; WBC 6.86 10^3/uL (4.4-10.8)
[2024-03-20 06:06] LABS: ALT 9 U/L (14-59); AST 11 U/L (15-37); Albumin 2.7 g/dL (3.4-5.0); Alkaline Phosphatase 79 U/L (46-116); Anion Gap 3.8 mmol/L (3-11); BUN 13 mg/dL (7-18); Bilirubin, Total 0.22 mg/dL (0.2-1.0); CO2 31.2 mmol/L (21.0-32.0); CREATININE 1.3 mg/dL (0.55-1.02); Calcium 8.9 mg/dL (8.5-10.1); Chloride 106 mmol/L (98-107); Estimated GFR 41.06 (mL/min/1.73m2); Glucose 94 mg/dL (74-106); Potassium 3.9 mmol/L (3.5-5.1); Sodium 141 mmol/L (136-145); Total Protein 6.8 g/dL (6.4-8.2)
[2024-03-20 06:08] LABS: Troponin I < 50 ng/L (< or =60)
[2024-03-20 06:22] LABS: D-Dimer 5224 ng/mlFEU (<500)
--- NOTE | 2024-03-20 06:26 | DI.CT_ITS ---
Exam(s) CT HEAD CERVICAL SPINE WO EXAM: CT HEAD CERVICAL SPINE WO CLINICAL HISTORY: unwitnessed fall with head contusion/neck pain. TECHNIQUE: Imaging Protocol: Axial computed tomography images with coronal and sagittal reformatted images were created and reviewed COMPARISON: CT CT HEAD WO from 03/18/2024 FINDINGS: BRAIN: There are no skull fractures nor fluid in the visualized paranasal sinuses. There is no evidence of intracranial hemorrhage, mass effect, or shift of midline structures. There are no extra-axial fluid collections. Ventricular size is unchanged. There is no blood within the v entricular system nor within the basal cisterns. The amount of bilateral periventricular hypodensity again noted consistent with chronic small vessel disease. CERVICAL SPINE: There is no evidence of fracture nor listhesis. No significant prevertebral soft tissue swelling. C1 arch and odontoid are intact. Chronic disc space narrowing at C5-6 and C6-7 levels. Multilevel right-sided facet arthropathy in th e upper cervical spine, on the right side there is facet arthropathy at C 4-5 level. There is no significant facet joint malalignment. No significant osseous lesions evident. IMPRESSION: No acute intracranial findings on this noninfused CT scan of the brain. No evidence of cervical spine fracture, malalignment, nor acute compromise of the cervical spinal can al. Degenerative disc disease and some facet arthropathy as described above. RADIATION DOSE DELIVERED: 1,235.51mGy.cm Total DLP DATA REPOSITORY: All CT scans at this facility are submitted to the National Radiology Data Registry (NRDR) Dose Index Registry (DIR) with the [employer] (ACR). RADIATION OPTIMIZATION: All CT scans at this facility use at least one of these dose optimization te chniques: automated exposure control; mA and/or kV adjustment per patient size (includes targeted exa ms where dose is matched to clinical indication); or iterative reconstruction.
--- NOTE | 2024-03-20 06:27 | DI.RAD_ITS ---
Exam(s) XR HIP LT COMPLETE AP PELVIS EXAM: XR HIP LT COMPLETE AP PELVIS CLINICAL HISTORY: hip pain after fall. TECHNIQUE: 2D digital imaging was performed. COMPARISON: No exams were available for comparison FINDINGS: Two views. No evidence of acute pelvic nor hip fracture. There moderate degenerative changes in both hip joints . Evidence of previous left inguinal hernia repair. IMPRESSION: No acute osseous findings. DATA REPOSITORY: RADIATION DOSE DELIVERED:
--- NOTE | 2024-03-20 06:27 | DI.RAD_ITS ---
Exam(s) XR CHEST 2V PA LATERAL EXAM: XR CHEST 2V PA LATERAL CLINICAL HISTORY: hypoxemia. TECHNIQUE: 2D digital imaging was performed. COMPARISON: CR XR CHEST 2V PA LATERAL from 03/18/2024 FINDINGS: 2 views: Heart size is upper normal. The mediastinum is not widened. Lungs are clear. No infiltrates nor pleural effusions. T12 vertebral body compression fracture and vertebroplasty cement again noted. IMPRESSION: No acute pulmonary findings. DATA REPOSITORY: RADIATION DOSE DELIVERED:
[2024-03-20] MEDS: Lactated Ringers 500 ML IV (06:28)
--- NOTE | 2024-03-20 06:30 | DI.CT_ITS ---
Exam(s) CT CHEST PE CTA EXAM: CT CHEST PE CTA CLINICAL HISTORY: hypoxemia with elevated d-dimer. TECHNIQUE: Imaging Protocol: CT angiography of the chest was performed using pulmonary embolus neal col. Multi planar reconstructions were performed. CONTRAST MATERIAL: Intravenous: Omnipaque 350 Contrast volume: 100 cc COMPARISON: CT CT CHEST/ABD/PEL WO from 04/17/[address] CHEST/ABD/PEL WO from 01/16/2024 FINDINGS: CHEST: PULMONARY ARTERIES: There is significant intraluminal filling defects in right lower lobe and right m iddle lobe pulmonary arteries consistent with acute pulmonary emboli. There is sparing of the right upper lobe vessels. No evidence of emboli in the opposite-left lung. There is no evidence of pulmon yun infarction. There is a 2-3 millimeter peripherally located nodule in the right upper. No other right lung nodules evident. Multiple moderate size bullae are noted in the right middle lobe. Mild increased markings are noted in the anterior segment of the left upper lobe and superior lingular seg ment of the left lung. There is also some mild pleural based infiltrate in the posterior and lateral basal segments of the left lower lobe. No overlying rib destruction evident. LUNGS: As above. MEDIASTINUM: There is no hilar adenopathy. Slightly prominent subcarinal lymph node is noted. There is also no abnormal density behind the medial aspect of the right clavicle which measures 3.2 by 2.6 by 1.7 cm, unchanged from 01/16/2024 and also unchanged from prior CT scan of 04/17/2023. There is possibly that this is a prominent vascular structure at the confluence of the jugular and subclavian veins but difficult to assess accurately without IV contrast on this side. CARDIAC: There is cardiomegaly. No pericardial effusion. Calcifications noted in the mitral valve a nnulus. RV/LV ratio is approximately 1: 1. there is no RV contrast reflux into the intrahepatic IVC. Caliber of the thoracic aorta is within normal limits. There is no evidence of aortic dissection. There is no significant shift of the interventricular septum. PARTIALLY VISUALIZED UPPERMOST ABDOMEN: No obvious significant findings. Benign cysts noted in the p artially included right kidney. These do not require further workup. OSSEOUS: T12 compression fracture with vertebral plasty cement within this vertebral body evident. T here is retropulsion of the upper posterior cortex of T12 by approximately 6 mm.. IMPRESSION: 1. This study is positive for the presence of acute pulmonary emboli in the right middle and right lo wer lobes. There is sparing of the right upper lobe vessels and there are no emboli in the opposite- left lung..No evidence of pulmonary infarction. No pleural effusion. Minimal right heart strain [place]. 2. No evidence of aortic dissection nor pericardial effusion. 3. There is a 3.2 x 2.6 x 1.7 cm mass behind the medial aspect of the right clavicle which is unchang ed from prior CT scans listed above. There is possibly that this represents vascular confluence of t he jugular vein and subclavian vein, as opposed to adenopathy or other mass. However, this is diffic ult to evaluate without intraluminal contrast within these vascular structures on the right side. Co ntrast injection for this study was on the opposite-left side and timing was 4 enhancing the pulmonar y arterial tree. Therefore venous return from the right upper extremity was nonenhanced. RADIATION DOSE DELIVERED: 348.14mGy.cm Total DLP DATA REPOSITORY: All CT scans at this facility are submitted to the National Radiology Data Registry (NRDR) Dose Index Registry (DIR) with the [employer] (ACR). RADIATION OPTIMIZATION: All CT scans at this facility use at least one of these dose optimization te chniques: automated exposure control; mA and/or kV adjustment per patient size (includes targeted exa ms where dose is matched to clinical indication); or iterative reconstruction.
--- NOTE | 2024-03-20 06:31 | DI.VRAD_ITS ---
PROCEDURE INFORMATION: Exam: CT Head Without Contrast Exam date and time: 03/20/2024 5:53 AM Age: 83 years old Clinical indication: Injury or trauma; Blunt trauma (contusions or hematomas); Injury date: 03/20/24; Patient HX: Unwitnessed fall with head contusion/neck pain TECHNIQUE: Imaging protocol: Computed tomography of the head without contrast. Radiation optimization: All CT scans at this facility use at least one of these dose optimization techniques: automated exposure control; mA and/or kV adjustment per patient size (includes targeted exams where dose is matched to clinical indication); or iterative reconstruction. COMPARISON: CT HEAD WO 03/18/2024 2:51 PM FINDINGS: Brain: Volume loss and chronic small vessel ischemic change. Multifocal encephalomalacia/gliosis. No brain edema. No intracranial hemorrhage. Cerebral ventricles: No ventriculomegaly. Paranasal sinuses: Visualized sinuses are unremarkable. No fluid levels. Mastoid air cells: Unremarkable. Bones: Unremarkable. No acute fracture. Soft tissues: Right frontal scalp hematoma. IMPRESSION: No acute brain findings. PROCEDURE INFORMATION: Exam: CT Cervical Spine Without Contrast Exam date and time: 03/20/2024 5:53 AM Age: 83 years old Clinical indication: Injury or trauma; Blunt trauma (contusions or hematomas); Injury date: 03/20/24; Patient HX: Unwitnessed fall with head contusion/neck pain TECHNIQUE: Imaging protocol: Computed tomography of the cervical spine without contrast. Radiation optimization: All CT scans at this facility use at least one of these dose optimization techniques: automated exposure control; mA and/or kV adjustment per patient size (includes targeted exams where dose is matched to clinical indication); or iterative reconstruction. COMPARISON: CT HEAD WO 03/18/2024 2:51 PM FINDINGS: Bones: Degenerative change. No fracture. Lungs: Lung apices are normal. Vasculature: Incidental prominent venous confluence where the right internal jugular vein and right subclavian vein meet brachiocephalic. Soft tissues: Unremarkable. IMPRESSION: No fracture. Dictated and Authenticated by: Jason Courtney MD. Ordering:YUMIKO Aiken MD
--- NOTE | 2024-03-20 06:53 | DI.VRAD_ITS ---
PROCEDURE INFORMATION: Exam: XR Left Hip Exam date and time: 03/20/2024 6:06 AM Age: 83 years old Clinical indication: Injury or trauma; Blunt trauma (contusions or hematomas); Left; Injury date: 03/20/24; Prior surgery; Surgery date: 6+ months; Surgery type: Hysterectomy. Partial resection of colon; Patient HX: Hip pain after fall TECHNIQUE: Imaging protocol: Radiologic exam of the left hip. Views: 2 or 3 views hip with pelvis when performed. COMPARISON: CT CHEST/ABD/PEL WO 01/16/2024 12:42 PM FINDINGS: Bones/joints: Unremarkable. No acute fracture. Soft tissues: Unremarkable. IMPRESSION: No acute findings. Dictated and Authenticated by: Jason Courtney MD. Ordering:YUMIKO Aiken MD
--- NOTE | 2024-03-20 06:55 | DI.VRAD_ITS ---
PROCEDURE INFORMATION: Exam: XR Chest Exam date and time: 03/20/2024 6:13 AM Age: 83 years old Clinical indication: Injury or trauma; Fall; Other: Hypoxemia; Blunt trauma (contusions or hematomas); Injury date: 03/20/24 TECHNIQUE: Imaging protocol: Radiologic exam of the chest. Views: 2 views. COMPARISON: CR XR CHEST 2V PA LATERAL 03/18/2024 2:54 PM FINDINGS: Lungs: Unremarkable. No consolidation. Pleural spaces: Unremarkable. No pleural effusion. No pneumothorax. Heart/Mediastinum: Unremarkable. No cardiomegaly. Bones/joints: Unremarkable. IMPRESSION: No acute findings. Dictated and Authenticated by: Jason Courtney MD. Ordering:YUMIKO Aiken MD
[2024-03-20] MEDS: methylPREDNISolone SUCC 40 MG VIAL IVP (07:05)
[2024-03-20 09:18] LABS: Troponin I < 50 ng/L (< or =60)
--- NOTE | 2024-03-20 09:52 | NUR.NOTE ---
Spoke with daughter [place] on current findings, and projected plan of treatment.
[2024-03-20] MEDS: diphenhydrAMINE 50 MG/ML VIAL IVP (10:06)
[2024-03-20] MEDS: Normal Saline Flush 10 ML SYR IVP ×3 (10:06→20:07)
[2024-03-20] MEDS: Omnipaque 350 MG/ML 100 ML BTL IJ (11:01)
--- NOTE | 2024-03-20 11:52 | DI.VRAD_ITS ---
PROCEDURE INFORMATION: Exam: CTA Chest With Contrast Exam date and time: 03/20/2024 10:53 AM Age: 83 years old Clinical indication: Other: Hypoxemia with elevated d-dimer TECHNIQUE: Imaging protocol: Computed tomographic angiography of the chest with contrast. Exam focused on the arteries. 3D rendering (Not supervised by radiologist): MIP and/or 3D reconstructed images were created by the technologist. Contrast material: OMNIPAQUE 350; Contrast volume: 100 ml; Contrast route: INTRAVENOUS (IV); COMPARISON: CT CHEST/ABD/PEL WO 01/16/2024 12:42 PM FINDINGS: Pulmonary arteries: Acute pulmonary emboli to the right middle and lower lobes, compatible with moderate embolism burden. Aorta: Unremarkable. No aortic aneurysm. No aortic dissection. Lungs: Mild bibasilar atelectasis. 3 mm pulmonary nodule within the lateral right upper lobe (series 5, image 149). Pleural spaces: Unremarkable. No pneumothorax. No pleural effusion. Heart: Cardiomegaly. Calcification of the mitral valve annulus. No pericardial effusion. RV/LV ratio measures 1.4, indicating right heart strain. Lymph nodes: Unremarkable. No enlarged lymph nodes. Bones/joints: Remote compression fracture T12. No acute fracture. Soft tissues: Unremarkable. IMPRESSION: 1. Acute pulmonary emboli to the right middle and lower lobes, compatible with moderate embolism burden. Evidence of right heart strain. 2. 3 mm pulmonary nodule right upper lobe, recommend follow-up as indicated. THIS REPORT CONTAINS FINDINGS THAT MAY BE CRITICAL TO PATIENT CARE. The findings were verbally communicated via telephone conference with Dr. Briones at 11:46 AM EDT on 03/20/2024. The findings were acknowledged and understood. Dictated and Authenticated by: Donita Woodruff MD. Ordering:YUMIKO Aiken MD
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
[2024-03-20] MEDS: Enoxaparin 100 MG/ML SYR SC (12:01)
--- NOTE | 2024-03-20 12:01 | ED.PROG_ITS ---
Date of service: 03/20/24 Time of Service: 12:02 Medical Decision Making Patient stable with still requiring 2 L nasal cannula she goes down into the mid 80s on room air. CTA does show a right sided PE in the right middle and lower lobes. Updated patient and she is agreeable to admission. Discussed with hosp italist and will initiate Lovenox. Quality:SDOH Health Related Social Needs: Health related social needs risk of homeless, transpo insecurity, personal safety Sign Out Sign Out Data: Sign Out Comment: Pending CTA of chest, repeat troponin Last updated by Attila Amado MD at 03/20/24 08:53 Discharge Plan Disposition Patient Disposition: Admit to [facility] Condition: Serious Discharge Details Chief Complaint: Fall/Non TraumaCriteria Clinical Impression: Fall, Pulmonary embolism on right Primary Care Provider: Ariadna Trevino ED Provider: Hadley Briones [place] Meds and New Rx's Prescriptions: No Action polyethylene glycol 3350 [Miralax] 17 gram/dose powder 17 g PO DAILY PRN cyclobenzaprine 5 mg tablet 5 mg PO TID PRN (Reason: muscle spasm) Qty: 15 0RF Rx Instructions: avoid concurrent use with oxycodone monitor for sedation/fall risk, especially during initiation of medication trial allopurinol 100 mg tablet 100 mg PO DAILY levothyroxine 125 mcg capsule 125 mcg PO DAILY famotidine [Pepcid] 40 mg tablet 40 mg PO BID Qty: 60 12RF ferrous gluconate 324 mg (38 mg iron) tablet 324 mg PO BID Qty: 60 12RF sennosides 8.6 mg tablet 8.6 mg PO DAILY naloxone 4 mg/actuation spray,non-aerosol 1 spray intranasal Q2M PRN Rx Instructions: spray 1 dose into ONE nostril; alternate nostrils w each dose until help arrives trazodone 100 mg tablet 100 mg PO QHS Qty: 30 1RF ursodiol 250 mg tablet See Rx Instructions .ROUTE .COMPLEX Qty: 60 11RF Dose Instruction: 1 TAB BY MOUTH TWICE A DAY Rx Instructions: 1 TAB BY MOUTH TWICE A DAY oxycodone 5 mg tablet 5 mg PO BID MDD 10 mg PRN (Reason: severe pain (scale score 7-10)) Qty: 30 0RF fentanyl 12 mcg/hr patch 72 hour 1 patch transdermal Q72H MDD 1 patch Qty: 10 0RF lidocaine 4 % adhesive patch,medicated 1 patch topical DAILY PRN (Reason: pain) Qty: 30 12RF lisinopril 20 mg tablet 20 mg PO DAILY duloxetine [Cymbalta] 20 mg capsule,delayed release(DR/EC) 60 mg PO DAILY melatonin [Meladox] 3 mg tablet extended release 3 mg PO HS memantine 5 mg tablet 10 mg PO BID Patient Comments: Recent frequent changes to dosing and frequency. Physician updated. 03/18/24 Rx Instructions: 5 mg orally; olanzapine 5 mg tablet 5 mg PO BID PRN Patient Comments: 5-10 mg as needed quetiapine [Seroquel] 25 mg tablet 25 mg PO DAILY
--- NOTE | 2024-03-20 14:11 | PT.INIE ---
PT Notes Visit Reasons: Pulmonary Embolism Inpatient Physical Therapy Evaluation Date: 03/20/24 Referring Doctor: Alyssa Winston NP PT Orders: PT CONSULT: fall safety assessment Precautions: fall, standard Patient Profile/Admitting Diagnosis: Patient admitted from ER with diagnosis of pulmonary embolism. Social History/Home Situation: Patient resides at [facility]. Reports that she normally ambulates with a 4WW. Equipment Owned/DME: 4WW, resides in assisted living facility Subjective: Pat states that she is feeling well. She is agreeable to getting up to the chair. When questioned about previous falls, she states oh, hundreds, but no one will believe me. Objective: General Observation: Resting in bed with nursing present. Supplemental O2 via nasal cannula. IV in LUE. Nursing present and checking patient into her room at initiation of session. Mental Status: Alert. Pleasantly confused throughout session. Frequently forgets purpose of statement mid-way through speaking. Verbalizes fears of other people being taken and of people not believing her. Pain: denies Vital Signs: monitored by nursing. SaO2 in 90s at initiation of session. ROM: Right Upper Extremity: WFL Left Upper Extremity: WFL Right Lower Extremity: WFL Left Lower Extremity: WFL Strength: Right Upper Extremity: Shoulder flexion 4/5. Track Repairer is strong and equal. Left Upper Extremity: Shoulder flexion 4/5. Track Repairer is strong and equal. Right Lower Extremity: Hip flexion 4+/5. Quads 4+/5. Ankle DF 4/5. Left Lower Extremity: Hip flexion 4+/5. Quads 4+/5. Ankle DF 4/5. Bed Mobility/Transfers: supine-sit: independent sit-stand: supervision stand-sit: supervision Gait: Ambulates 6' with FWW, CGA. Requires cues for safety and technique throughout. Balance: Static Sitting: normal Dynamic Sitting: good Static Standing: fair Dynamic Standing: fair Special Tests: Mobility Limitations Standardized Measure [facility] AM-PAC 6 clicks Basic Mobility Inpatient Short Form: Raw Score: 23 CMS Score: 11% impairment 4-Position Balance Test: 1/4 Small DALLIN: 10 seconds Partial Tandem: 0 seconds Full Tandem: 0 seconds Single Leg Stance: 0 seconds Informed Consent/Education: Patient instructed in purpose of PT consult and plan of care. Assessment: Patient is an 83 year old female referred to physical therapy services for fall risk assessment during admission for medical management of PE. Patient presents with baseline mobility for short distances, although with poor safety awareness due to confused state. Will additionally need to assess activity tolerance to longer distance ambulation, which was deferred today as patient had just been brought up to the floor. Anticipate she'll be safe for return to [place] once medically stable. She currently demonstrated by the following impairment level findings: 1. decreased safety awareness 2. balance impairment Impairments are contributing to the following functional limitations: 1. decreased independence with ambulation 2. increased risk for falls Patient is assessed as a Low 89384 complexity based on the following: History: as above Examination: functional limitations as above Presentation: stable Decision Making: low Goals: Goals X1 week 1. Supine-Sit : independent 2. Sit-Supine : independent 3. Sit-Stand : supervision 4. Stand-Sit : supervision 5. Bed-Chair : supervision with FWW 6. Chair-Bed : supervision with FWW 7. Gait : supervision with FWW x 150' Plan of Care/Treatment Plan: 1-2x/day, 7 days/week x 1 week. Plan of care has been reviewed with the KITCHEN WORK SUPERVISOR providing the service under Physical Therapy direction. Initiate Physical Therapy intervention for strengthening, bed mobility, transfers, gait, stairs, balance training, use of assistive device. DISCHARGE RECOMMENDATIONS: Return to [facility]. PT for balance training. TREATMENT CODE/TIME: 8300-3317 ([id number]) Zulema Cope, PT, DPT [facility] All Active Problems (Updated 03/20/24 @ 12:03 by Hadley Briones MD) Pulmonary embolism on right (Acute) Fall (Acute) Altered mental status (Acute) Osteoarthritis of spine with radiculopathy, lumbar region (Acute) Bladder diverticulum (Acute) Coronary artery calcification seen on CAT scan (Acute) Pancolonic diverticulosis (Acute) Gallstones (Acute) DNR (do not resuscitate) (Acute) See 10/15/2023 COLST: DNI/DNR, + transfer and treat Current chronic use of systemic steroids (Acute) Counseling regarding advance care planning and goals of care (Acute) Palliative care patient (Acute) 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 Patient aware that there is higher than recommended dose. Makes informed decision, drug contract with [facility] Chronic pain syndrome (Chronic) Due to chronic back pain, 08/2021-drug contract at [facility], PMS review,11/2021-urine drug screen Using oxycodone for pain mgmt when taking a shower. 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 She did see surgery down at in 2022. This is a large extensive surgery and they did not think she was a good surgical candidate due to her frailty. GERD (gastroesophageal reflux disease) (Chronic) Urethral caruncle (Chronic) dx by [facility] Gout (Chronic) Rectovaginal fistula (Chronic) Anemia of chronic disease (Chronic) Constipation by delayed colonic transit (Chronic) Urinary retention with incomplete bladder emptying (Chronic) Adrenal insufficiency (Chronic) Iatrogenic secondary to chronic steroid use, on low-dose chronic steroid Primary osteoarthritis of left knee (Chronic 07/30/15) PMR (polymyalgia rheumatica) (Chronic 01/15/16) DX 2016 : /curtis resp. to Prednisone Osteoporosis (Chronic) Bone density scan : 11/2021, managed by Rheum [facility], on prolia Obstructive sleep apnea syndrome (Chronic) after closed head injury pt not using CPAP machine Non-alcoholic fatty liver disease (Chronic) persistent elevated AST echo. 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 Medical History Cerebral amyloid angiopathy : possible diagnosis re:brain MRI/ followed by Neuro [facility] Dr.Anthony Avalos Visual field loss Anterolisthesis of lumbar spine Multiple fractures of ribs Abdominal pain in female Alzheimer's dementia Brain bleed 05/2021 tx at [facility], intra parenchymal left-sided hemorrhage-treated through [facility] September 2023, new hemorrhagic stroke felt to be secondary to CAA, see ED notes T12 burst fracture Compression fracture of body of thoracic vertebra Palliative care patient Perforation of colon as colonoscopy complication Tuberculosis Insomnia Raynaud's disease Excessive sweating (06/02/16) daytime sweating if >74 degrees/ fatigue normal cbc, spep,echocardiogram,sed.rate,cmp Colon polyp (06/28/18) adenoma colon pollyps-1997; none on subsequent colonoscopies; most recent c-scope in 2005 was normal 2017-adenoma Surgical History S/P rotator cuff repair S/P BSO (bilateral salpingo-oophorectomy) S/P appendectomy S/P hysterectomy S/P kyphoplasty H/O partial resection of colon Sigmoid colon resection 06/28/18 S/P tonsillectomy H/O dilation and curettage Laparoscopic, Ovarian Cystectomy B/L EGD - [facility] (~2003) MILD EROSIVE ESOPHAGITIS, NO PINON'S ON BIOPSY Colonoscopy - [facility] ADENOMA COLON POLYPS 1997, NONE ON MULTIPLE SUBSEQUENT COLONOSCOPIES, MOST RECENT C-SCOPE 2005 WAS NORMAL, 2018 - cecal polyp, diverticulosis
--- NOTE | 2024-03-20 16:19 | W.PC.ACHO ---
Registration Status: Primary Language: Preferred Language: ED Information & Data Chief Complaint Fall/Non TraumaCriteria 03/20/24 04:59 Chief Complaint Fall/Non TraumaCriteria 03/20/24 04:54 Other Complaint Orthopedic 03/20/24 04:54 Triage Note Pt from [facility], 03/20/24 04:54 dementia, confused on arrival. fell while walking, unwitnessed, unknown time of fall, no complaining of L hip pain and R sided head pain. Bruising and swelling noted. Medical / Surgical History (Last Reviewed 03/20/24 @ 15:53 by Shine Ferguson) Cerebral amyloid angiopathy Visual field loss Anterolisthesis of lumbar spine Multiple fractures of ribs Abdominal pain in female Alzheimer's dementia Brain bleed T12 burst fracture Compression fracture of body of thoracic vertebra Palliative care patient Perforation of colon as colonoscopy complication Tuberculosis Insomnia Raynaud's disease Excessive sweating (06/02/16) Colon polyp (06/28/18) (Last Reviewed 03/20/24 @ 15:53 by Shine Ferguson) S/P rotator cuff repair S/P BSO (bilateral salpingo-oophorectomy) S/P appendectomy S/P hysterectomy S/P kyphoplasty H/O partial resection of colon S/P tonsillectomy H/O dilation and curettage Laparoscopic, Ovarian Cystectomy EGD - [facility] (~2003) Colonoscopy - [facility] Most Recent Vital Signs Temperature 36.6 C 03/20/24 14:33 Temperature Source Temporal Artery Scan 03/20/24 14:30 Pulse 61 03/20/24 14:33 Pulse Rhythm Regular 03/20/24 14:33 Pulse 63 03/20/24 13:39 Respiratory Rate 19 03/20/24 14:33 Respiratory Effort Normal, Non-Labored 03/20/24 14:33 Respiratory Depth Normal 03/20/24 14:33 Respiratory Pattern Normal 03/20/24 14:33 Blood Pressure 138/80 03/20/24 14:33 Blood Pressure Mean 87 03/20/24 13:39 Blood Pressure Position Supine 03/20/24 04:54 Pulse Oximetry 98 03/20/24 14:33 Oxygen Delivery Method Nasal Cannula 03/20/24 14:33 Oxygen Flow Rate 1 03/20/24 14:33 Pain Level 4 03/20/24 14:30 Allergies banana Allergy (Intermediate, Verified 03/20/24 05:00) Other (See Comment) Verification by patient self-report, not lab. Significant GI pain, diarrhea cucumber Allergy (Intermediate, Verified 03/20/24 05:00) Other (See Comment) Verified by patient self-report, not lab. Significant GI pain and diarrhea. Iodinated Contrast Media Allergy (Intermediate, Unverified 03/20/24 05:00) Anaphylaxis chloramphenicol Adverse Reaction (Severe, Verified 03/20/24 05:00) KIDNEY FAILURE tetracycline Adverse Reaction (Severe, Verified 03/20/24 05:00) KIDNEY FAILURE melon Adverse Reaction (Intermediate, Verified 03/20/24 05:00) Cantaloupe-Abd pain, diarrhea donepezil Adverse Reaction (Unverified 03/20/24 05:00) Cardiac Dysrhythmia Neurology recommends against starting this due to prolonged QTc ADHESIVE TAPE Allergy (Intermediate, Uncoded 03/20/24 05:00) takes skin off SUTURE MATERIAL Allergy (Intermediate, Uncoded 03/20/24 05:00) Purluent Drainage Precautions Isolation Standard precaution 03/20/24 04:59 Active Medications Generic Name Dose Route Start Last Admin Trade Name Freq PRN Reason Stop Dose Admin Enoxaparin Sodium 70 mg 03/20/24 00:00 03/20/24 16:10 Enoxaparin 80 Mg/0.8 Ml Syr SC Not Given Q12H MONIQUE IV IV Catheter Type [Left Saline Lock Antecubital] IV Catheter Type [Left Wrist] Peripheral IV IV Catheter Gauge [Left 20 Antecubital] IV Catheter Gauge [Left Wrist] 20 Diet Orders Category Date Time Status Heart Healthy Eating [DIET] Nutrition 03/20/24 Lunch Active Diagnostics 03/20/24 03/20/24 Range/Units 08:50 05:38 WBC 6.86 (4.4-10.8) 10^3/uL RBC 3.31 L (3.93-5.22) 10^6/uL Hgb 9.2 L (11.2-15.7) g/dL Hct 30.3 L (36.0-46.0) % MCV 92 (80-95) fL MCH 27.8 (27.0-33.0) pg MCHC 30.4 L (32.0-36.0) % RDW 16.5 H (11.7-14.6) % Plt Count 196 (130-400) 10^3/uL MPV 9.9 (8.0-11.0) fL D-Dimer 5224 H (<500) ng/mlFEU Sodium 141 (136-145) mmol/L Potassium 3.9 (3.5-5.1) mmol/L Chloride 106 (98-107) mmol/L Carbon Dioxide 31.2 (21.0-32.0) mmol/L Anion Gap 3.8 (3-11) mmol/L BUN 13 (7-18) mg/dL Creatinine 1.3 H (0.55-1.02) mg/dL Est GFR (CKD-EPI 2020) 41.06 (mL/min/1.73m2) Glucose 94 (74-106) mg/dL Calcium 8.9 (8.5-10.1) mg/dL Total Bilirubin 0.22 (0.2-1.0) mg/dL AST 11 L (15-37) U/L ALT 9 L (14-59) U/L Alkaline Phosphatase 79 (46-116) U/L Troponin I < 50 < 50 (< or =60) ng/L Total Protein 6.8 (6.4-8.2) g/dL Albumin 2.7 L (3.4-5.0) g/dL Intake and Output - 24 Hour Total 03/20/24 04:52 thru 03/20/24 14:33 Intake Total 520 Balance 520 Weight 72.2 kg Intake: IV 520 Other: Urine Appearance Clear Falls Risk Assessment History of Falls Previous History 03/20/24 14:33 Contributing Factors Confusion,Impairments, 03/20/24 14:33 Incontinence Ambulatory Aids Uses ambulatory device + 03/20/24 14:33 Tubes/Lines With any additional score 03/20/24 14:33 Gait Evaluation W/any additional score 03/20/24 14:33 Cognition Cognitive impairment 03/20/24 05:42 Fall Total Score 94 03/20/24 14:33 Level of Risk Maximum Risk 03/20/24 14:33 Problems (Last Reviewed 03/20/24 @ 15:53 by Shine Ferguson) Alzheimer dementia with psychotic disturbance (Acute) Pulmonary embolism on right (Acute) Chronic pain syndrome (Chronic) Essential hypertension (Chronic) Anemia of chronic disease (Chronic) Constipation by delayed colonic transit (Chronic) Adrenal insufficiency (Chronic) PMR (polymyalgia rheumatica) (Chronic 01/15/16) Hypothyroidism (Chronic 04/05/12) Depressive disorder (Chronic) Notes 03/20/24 09:52 Nursing Notes by Audrey Schmitt Spoke with daughter [place] on current findings, and projected plan of treatment. Initialized on 03/20/24 09:52 - END OF NOTE v v v v v v v v v Sending and/or Receiving Nurses: Please use comment section below to note any information pertinent to the patient hand-off not included above. Information / Comments: Pt is from [facility], A/O x1 person, came in SOB and decreased SATs CXR/CT showed a PE, Pt on 1L NC SATs 97%, VS otherwise WNL. Pt has colostomy, that appears healthy and patent at this time, denies pain, pleasant. some scattered bruising on Left leg and one on Right side of head. Report received from: KAMILLE Geiger
[2024-03-20] MEDS: traZODone 100 MG TAB PO (19:34)
[2024-03-20] MEDS: Ferrous Gluconate 324 MG TAB PO (19:34)
[2024-03-20] MEDS: Famotidine 20 MG TAB 40 MG PO (19:34)
[2024-03-20] MEDS: Docusate Sodium 100 MG CAP PO (19:34)
[2024-03-20] MEDS: fentaNYL 12 MCG PATCH TD (19:35)
[2024-03-20] MEDS: Melatonin 3 MG TAB PO (19:35)
[2024-03-20] MEDS: Memantine 5 MG TAB 10 MG PO (20:34)
[2024-03-21] VITALS (7 sets, daily range): BP systolic 125–170; BP diastolic 59–108; PULSE 47–69; RESP 17–18; TEMP 36.3–36.6; O2SAT 62–99
[2024-03-21] MEDS: OLANZapine 5 MG TAB PO (01:42)
[2024-03-21] MEDS: Famotidine 20 MG TAB 40 MG PO ×2 (06:16→19:50)
[2024-03-21] MEDS: Levothyroxine 125 MCG TAB PO (06:16)
[2024-03-21 06:51] LABS: Abs Immature Grans 0.05 10^3/uL (0.0-0.06); Absolute Basophil Count 0.03 10^3/uL (0.0-0.2); Absolute Eosinophil Count 0.01 10^3/uL (0.0-0.7); Absolute Monocyte Count 0.86 10^3/uL (0.1-0.8); Basophils % 0.3 %; Eosinophils % 0.1 %; HCT 27.6 % (36.0-46.0); HGB 8.5 g/dL (11.2-15.7); Immature Grans % 0.5 %; Lymphocytes % 12.4 %; MCHC 30.8 % (32.0-36.0); MCV 91 fL (80-95); MPV 10.7 fL (8.0-11.0); Monocytes % 7.9 %; Neutrophils % 78.8 %; Platelet Count 198 10^3/uL (130-400); RBC 3.04 10^6/uL (3.93-5.22); RDW 16.3 % (11.7-14.6); RDW-SD 53.9 fL; WBC 10.85 10^3/uL (4.4-10.8)
[2024-03-21 06:56] LABS: Absolute Lymphocyte Count 1.35 10^3/uL (1.2-3.4); Absolute Neutrophil Count 8.55 10^3/uL (1.2-6.7)
[2024-03-21 06:59] LABS: Anion Gap 6.1 mmol/L (3-11); BUN 18 mg/dL (7-18); CO2 28.9 mmol/L (21.0-32.0); CREATININE 1.2 mg/dL (0.55-1.02); Chloride 105 mmol/L (98-107); Estimated GFR 45.19 (mL/min/1.73m2); Glucose 103 mg/dL (74-106); Potassium 4.4 mmol/L (3.5-5.1); Sodium 140 mmol/L (136-145)
[2024-03-21] MEDS: Memantine 5 MG TAB 10 MG PO ×2 (08:14→19:49)
[2024-03-21] MEDS: Ferrous Gluconate 324 MG TAB PO ×2 (08:14→19:49)
[2024-03-21] MEDS: DULoxetine 30 MG CAP 60 MG PO (08:14)
[2024-03-21] MEDS: Lisinopril 20 MG TAB PO (08:14)
[2024-03-21] MEDS: Allopurinol 100 MG TAB PO (08:14)
[2024-03-21] MEDS: QUEtiapine 25 MG TAB PO (08:15)
[2024-03-21] MEDS: Normal Saline Flush 10 ML SYR IVP ×2 (08:15→20:15)
[2024-03-21] MEDS: Lidocaine 5% Patch 1 PATCH TP (08:15)
[2024-03-21] MEDS: Senna TAB 1 TAB PO (08:49)
[2024-03-21] MEDS: Enoxaparin 80 MG/0.8 ML SYR 70 MG SC ×2 (10:24→21:49)
--- NOTE | 2024-03-21 10:43 | PGE_ITS ---
Date of Service Date of service: 03/21/24 Time of Service: 10:43 Assessment and Plan Assessment and plan (1) Pulmonary embolism on right: Status: Acute Assessment and plan: With mild hypoxia, signs of right heart strain on CT. She is not in CHF clinically, denies pain, no respiratory distress, hemodynamically stable. Enoxaparin for now. Plan transition to DOAC at discharge. Echocardiogram to assess 9/3 am. No clear DVT clinically. No clear cause. Consider malignancy work up with primary care. (2) Alzheimer dementia with psychotic disturbance: Status: Acute Assessment and plan: Treated as outpatient wi memantine, quetiapine and prn olanzapine. She is not exibiting abnormal thoughts this morning as she was last night. Continue home medicaiton. Qualifiers: Alzheimer's disease onset: late onset Dementia severity: severe Qualified Code(s): G30.1 - Alzheimer's disease with late onset; F02.C2 - Dementia in other diseases classified elsewhere, severe, with psychotic disturbance (3) Cerebral amyloid angiopathy: Assessment and plan: a/w h/o brain bleed, most recently in 09/2023. This of course raises concern for further bleeding with anticoagulation, but given life threatening nature of pulmonary emboli treatment indicated. No signs of recurrent brain bleed on admission CT or clinically since. (4) Anemia of chronic disease: Status: Chronic Assessment and plan: near recent baseline, follow (5) Essential hypertension: Status: Chronic Assessment and plan: Continue outpatient medications. (6) Constipation by delayed colonic transit: Status: Chronic Assessment and plan: This is chronic, has with PEG along with her colace/senna (7) Chronic pain syndrome: Status: Chronic Assessment and plan: She is on chronic opioids. She does not appear to be oversedated. Continue outpatient medications. (8) Depressive disorder: Status: Chronic Assessment and plan: continue duloxetine (9) Chronic renal insufficiency, stage III (moderate): Status: Acute Assessment and plan: at recent baseline, follow Subjective Subjective Patient reports: tolerating a regular diet and voiding w/o difficulty; denies nausea, vomiting or fever Interval history since last seen: events: Got prn olanzapine at 1:42am She feels well this morning. No new complaints. Eating breakfast. Breathing feels okay at rest, but not 100%. No chest pain or palpitations. No bleeding. Exam Narrative Exam Narrative: GEN: Alert, oriented to self and place. More cooperative linear in thought process, no longer making paranoid statements. No acute distress at rest. HEENT: Head atraumatic. Conjunctiva clear, no icterus. PEERL, EOMI. no rhinorrhea. MMM, OP benign. Neck is supple with no masses or lymphadenopathy, trachea midline LUNGS: CTAB, normal effort at rest with 1L NC, speaks in full sentences. CV: RRR with no murmurs, gallops, or rubs. No elevation JVP. ABD: active bowel sounds, soft, soft/gassy distension, mildly tender with deep palapation on left. Colostomy back empty. No masses. EXT: no cyanosis, clubbing, or edema Objective Last Vital Signs Temp 36.6 C 03/21/24 07:32 Pulse 69 03/21/24 09:45 Resp 18 03/21/24 07:32 BP 153/103 H 03/21/24 07:32 Pulse Ox 62 L 03/21/24 09:45 Laboratory Results - last 24 hr 03/21/24 06:20 WBC 10.85 H RBC 3.04 L Hgb 8.5 L Hct 27.6 L MCV 91 MCH 28.0 MCHC 30.8 L RDW 16.3 H Plt Count 198 MPV 10.7 Immature Gran % 0.5 Neutrophils % 78.8 Lymphocytes % 12.4 Monocytes % 7.9 Eosinophils % 0.1 Basophils % 0.3 Nucleated RBC % 0.0 Absolute Neutrophils 8.55 H Absolute Lymphocytes 1.35 Absolute Monocytes 0.86 H Absolute Eosinophils 0.01 Absolute Basophils 0.03 Sodium 140 Potassium 4.4 Chloride 105 Carbon Dioxide 28.9 Anion Gap 6.1 BUN 18 Creatinine 1.2 H Est GFR (CKD-EPI 2020) 45.19 Glucose 103 Calcium 9.0 Time Spent with Patient Time Spent with Patient: 35-49 minutes Time was spent: preparing to see the patient(eg.review tests), obtaining and/or reviewing separately otained hiistory, ordering medications,tests, procedures, referring, communicating with other health manager medicare marketing, indepentently interpreting results, counseling the patient and care coordination
--- NOTE | 2024-03-21 11:02 | PT.INTREAT ---
PT Notes Visit Reasons: Pulmonary Embolism Date: 03/21/2024 PRECAUTIONS: Fall, Standard, Activities as Tolerated SUBJECTIVE: Pt reports pain on her right lower abdominal quadrant, pt agreed to participating with therapy OBJECTIVE: on NC 1L 02 support ? PAIN: Pt reports pain on her right lower abdominal quadrant Therapeutic Activities 45085: Direct one-on-one instruction in dynamic activities to improve functional performance. ? BED MOBILITY/TRANSFERS? Rolling L/R: SBA Supine-sit: SBA? Sit-supine: SBA ? Sit-stand: SBA? Stand-sit: SBA? Provided skilled cues and instruction on performance and technique throughout. GAIT? Assistive Device: FWW ? Weight bearing: Full Assist: CGA-SBA ? Distance:?250ft, CGA for pt safety due to impulsivity ? ASSESSMENT:? Pt required tactile cue for pt to remain using FWW pt has tendency to leave AD behind, would turn without holding on to AD when reaching for stuff (box of tissue/phone), pleasantly confused with her location and reson for being in the hospital. PLAN: Continue with balance training, global strengthening and general conditioning for improved safety, mobility and activity tolerance until pt is ready for DC. TREATMENT CODE/TIME: 12556w9, 25mins(10:40 to 11:05 am)
[2024-03-21 12:02] LABS: Magnesium 2.1 mg/dL (1.8-2.4)
[2024-03-21 12:03] LABS: Lab Add On Test DONE
[2024-03-21 15:38] LABS: Bilirubin Negative (Negative); Blood Trace-intact (Negative); Clarity Sl Cloudy (Clear); Glucose Negative (Negative); Ketones Negative (Negative); Leukocyte Esterase Moderate (Negative); Nitrite Negative (Negative); Urobilinogen 0.2 mg/dL (Up to 0.2)
[2024-03-21 15:49] LABS: Bacteria Moderate HPF (Negative); C & S Indicated? Yes; Casts Negative LPF (Negative); Crystals Negative HPF (Negative); Epithelial Cells Rare HPF (Negative); Mucus Negative (Negative); RBC 0-2 HPF (0-2); WBC >50 HPF (0-5)
[2024-03-21] MEDS: Melatonin 3 MG TAB PO (20:48)
[2024-03-21] MEDS: traZODone 100 MG TAB PO (20:48)
[2024-03-21] MEDS: Lidocaine Patch Removal 1 EACH TP (21:04)
[2024-03-22] MEDS: oxyCODONE 5 MG TAB PO (02:26)
[2024-03-22] MEDS: Cyclobenzaprine 10 MG TAB 5 MG PO (02:27)
[2024-03-22 03:04] VITALS: BP 155/59; PULSE 67; RESP 17; TEMP 37.4; O2SAT 94
[2024-03-22] MEDS: Levothyroxine 125 MCG TAB PO (06:03)
[2024-03-22 07:11] LABS: Abs Immature Grans 0.04 10^3/uL (0.0-0.06); Absolute Basophil Count 0.04 10^3/uL (0.0-0.2); Absolute Eosinophil Count 0.23 10^3/uL (0.0-0.7); Absolute Lymphocyte Count 1.44 10^3/uL (1.2-3.4); Absolute Monocyte Count 0.98 10^3/uL (0.1-0.8); Absolute Neutrophil Count 8.05 10^3/uL (1.2-6.7); Basophils % 0.4 %; Eosinophils % 2.1 %; HGB 8.5 g/dL (11.2-15.7); Immature Grans % 0.4 %; Lymphocytes % 13.4 %; MCH 27.2 pg (27.0-33.0); MCHC 30.4 % (32.0-36.0); MCV 90 fL (80-95); MPV 11.4 fL (8.0-11.0); Monocytes % 9.1 %; Neutrophils % 74.6 %; Platelet Count 219 10^3/uL (130-400); RBC 3.12 10^6/uL (3.93-5.22); RDW 16.7 % (11.7-14.6); WBC 10.78 10^3/uL (4.4-10.8)
[2024-03-22 07:18] VITALS: BP 161/63; PULSE 89; RESP 16; TEMP 36.5; O2SAT 89
[2024-03-22 07:22] LABS: Anion Gap 5.8 mmol/L (3-11); BUN 21 mg/dL (7-18); CO2 30.2 mmol/L (21.0-32.0); CREATININE 1.4 mg/dL (0.55-1.02); Chloride 107 mmol/L (98-107); Estimated GFR 37.56 (mL/min/1.73m2); Glucose 87 mg/dL (74-106); Potassium 4.2 mmol/L (3.5-5.1); Sodium 143 mmol/L (136-145)
--- NOTE | 2024-03-22 09:36 | PDOC.CMIN ---
Date of service: 03/22/24 Time of Service: 09:36 Care Management Initial Assmt Initial Assessment Reason for Hospitalization: pulmonary embolism Functional Status/Living Situation Patient Presentation: Amanda was sitting up in her chair when CM met with her. She was pleasant and engaged well in conversation, although she appeared to have some paranoia surrounding people in the hallway. She stated that she had some concerns, but was unable to articulate what her concerns were. CM discussed her discharge plan, which will be to return to the [facility], where she resides. She expressed understanding of this plan, and stated that she will be happy to be home in a familiar environment. CM contacted Sloane at , and informed her of her discharge. CM faxed a signed discharge summary to the , as requested. CM will continue to follow. Town of Residence: [facility] Resides with: Other (Assisted living ) Significant Other/Family: Out of area Caregiver/Guardian: Amanda lives at the [facility], where she receives support with ADLs. Natural Supports: daughterChina, lives in [place]. Employment Status: Unemployed Instrumental Activities of Daily Living (ADLs): Requires support with Dishes/food prep, Driver'S License Reviewing Officer, Groceries, Heat/Utilities, Laundry and Transportation Physical Functioning/Mobility Assistive Device: 4WW Advance Directives Advance Directives: Do you have an Advance Directive: Y 07/09/23 13:55 AD On File at [facility]: Y 07/09/23 13:55 Date Asked 10/16/23 03/20/24 13:49 AD Date Reviewed 03/20/24 03/20/24 13:46 COLST On File at [facility] Yes 01/13/24 10:29 COLST Date Scanned 10/16/23 01/15/24 07:22 Code Status Resuscitation Status DNR/DNI Insurance Coverage/Financial Issues Insurance: [facility]. [facility] Supplement. Care Team Visit Care Team Role Provider Type Ariadna Trevino Primary Care Provider ADV PRACTICE REGISTERED NURSE Willem Woodward Other Providers OTHER Hadley Briones MD Emergency Provider [facility] STAFF PHYSICIAN Shine Ferguson Admit Provider [facility] STAFF PHYSICIAN Attending Provider Discharge Potential Discharge Needs: Other (coordinated return to [facility]) Anticipated Barriers to Discharge: None Identified Patient/Family Education Needs: Review discharge instructions, discuss Ask Me Three Transportation: Private vehicle Plan: Anticipate Pat will return to the [facility], where she resides. She will transport via private vehicle. She will follow up with her PCP and discharge plan of care. CM will continue to follow. PFSH All Active Problems (Updated 03/20/24 @ 16:28 by Shine Ferguson) Chronic renal insufficiency, stage III (moderate) (Acute) Alzheimer dementia with psychotic disturbance (Acute) Pulmonary embolism on right (Acute) Fall (Acute) Altered mental status (Acute) Osteoarthritis of spine with radiculopathy, lumbar region (Acute) Bladder diverticulum (Acute) Coronary artery calcification seen on CAT scan (Acute) Pancolonic diverticulosis (Acute) Gallstones (Acute) DNR (do not resuscitate) (Acute) See 10/15/2023 COLST: DNI/DNR, + transfer and treat Current chronic use of systemic steroids (Acute) Counseling regarding advance care planning and goals of care (Acute) Palliative care patient (Acute) Abdominal pain (Acute) Callosity (Acute) Nail dystrophy (Acute) Toe pain, left (Acute) Toe pain, right (Acute) Multiple fractures of ribs of right side (Acute) Colostomy status (Chronic) Anterolisthesis of lumbosacral spine (Chronic) Abd/CT 03/2022 Mild degenerative anterolisthesis L5 upon S1 noted as well as vacuum phenomena within the L5-S1 disc space which was not previously present. 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 Patient aware that there is higher than recommended dose. Makes informed decision, drug contract with [facility] Chronic pain syndrome (Chronic) Due to chronic back pain, 08/2021-drug contract at [facility], V PMS review,11/2021-urine drug screen Using oxycodone for pain mgmt when taking a shower. 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 She did see surgery down at in 2022. This is a large extensive surgery and they did not think she was a good surgical candidate due to her frailty. GERD (gastroesophageal reflux disease) (Chronic) Urethral caruncle (Chronic) dx by [facility] Gout (Chronic) Rectovaginal fistula (Chronic) Anemia of chronic disease (Chronic) Constipation by delayed colonic transit (Chronic) Urinary retention with incomplete bladder emptying (Chronic) Adrenal insufficiency (Chronic) Iatrogenic secondary to chronic steroid use, on low-dose chronic steroid Primary osteoarthritis of left knee (Chronic 07/30/15) PMR (polymyalgia rheumatica) (Chronic 01/15/16) DX 2016 : /curtis resp. to Prednisone Osteoporosis (Chronic) Bone density scan : 11/2021, managed by [facility], on prolia Obstructive sleep apnea syndrome (Chronic) after closed head injury pt not using CPAP machine Non-alcoholic fatty liver disease (Chronic) persistent elevated AST echo. 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 Medical History Visual field loss Anterolisthesis of lumbar spine Multiple fractures of ribs Abdominal pain in female Alzheimer's dementia Brain bleed 05/2021 tx at [facility], intra parenchymal left-sided hemorrhage-treated through [facility] September 2023, new hemorrhagic stroke felt to be secondary to CAA, see ED notes Cerebral amyloid angiopathy : possible diagnosis re:brain MRI/ [place] [facility] [place]Anthony Avalos T12 burst fracture Compression fracture of body of thoracic vertebra Palliative care patient Perforation of colon as colonoscopy complication Tuberculosis Insomnia Raynaud's disease Excessive sweating (06/02/16) daytime sweating if >74 degrees/ fatigue normal cbc, spep,echocardiogram,sed.rate,cmp Colon polyp (06/28/18) adenoma colon pollyps-1997; none on subsequent colonoscopies; most recent c-scope in 2005 was normal 2017-adenoma Surgical History S/P rotator cuff repair S/P BSO (bilateral salpingo-oophorectomy) S/P appendectomy S/P hysterectomy S/P kyphoplasty H/O partial resection of colon Sigmoid colon resection 06/28/18 S/P tonsillectomy H/O dilation and curettage Laparoscopic, Ovarian Cystectomy B/L EGD - [facility] (~2003) MILD EROSIVE ESOPHAGITIS, NO PINON'S ON BIOPSY Colonoscopy - [facility] ADENOMA COLON POLYPS 1997, NONE ON MULTIPLE SUBSEQUENT COLONOSCOPIES, MOST RECENT C-SCOPE 2005 WAS NORMAL, 2018 - cecal polyp, diverticulosis Family History Mother , in her 80s from pneumonia Heart disease Pneumonia Father , from complications of prostate surgery in his 80s Stroke Personal history of malignant neoplasm Heart disease Brother , aged 68 Alcohol abuse Cirrhosis with alcoholism Grandfather Essential hypertension Heart disease Grandmother Personal history of malignant neoplasm Stroke Grandmother Personal history of malignant neoplasm Son , from his drinking/SA; her oldest child Alcohol abuse Social History (Updated 03/20/24 @ 15:55 by Shine Ferguson) Smoking/Tobacco Use Status: Former Tobacco Use Smoking risk assessment performed?: Yes Alcohol Intake: current Alcohol Intake frequency: holidays/special occasions only Alcohol type: hard liquor Details: HOLIDAYS AND SPECIAL OCCASIONS ONLY Drug use: Never Substance use type: does not use Counseling given: No Household members: other Details: 2 Housing: assisted living facility Do you feel safe at home: No Do you feel safe in your relationship?: No Additional Social history: h/o unsafe relationship with Now live alone at [facility] living in [facility]. Daughter in [place], near where the patient grew up. No other family close History History 6 Para 3 Hx # Term Pregnancies 3 Multiple births Hx # Pregnancies Ectopic pregnancies AB induced Hx Number of Living Children 3 AB spontaneous SDOH(Care Management) Screening Will the Patient Participate in the Screening?: Unable to obtain Do you worry about having a steady place to live?: no In the past 12 months, have you had to go without electric, gas, oil or water in your home?: no Have you or anyone in your house had to go without enough food to eat?: no Has lack of transportation kept you from medical appointments or from doing things needed for daily living?: no Has anyone in your support network made you feel unsafe for any reason?: no
[2024-03-22] MEDS: DULoxetine 30 MG CAP 60 MG PO (09:42)
[2024-03-22] MEDS: Apixaban 5 MG TAB 10 MG PO (09:43)
[2024-03-22] MEDS: Allopurinol 100 MG TAB PO (09:44)
[2024-03-22] MEDS: QUEtiapine 25 MG TAB PO (09:44)
[2024-03-22] MEDS: Memantine 5 MG TAB 10 MG PO (09:44)
[2024-03-22] MEDS: Ferrous Gluconate 324 MG TAB PO (09:44)
[2024-03-22] MEDS: Senna TAB 1 TAB PO (09:44)
[2024-03-22] MEDS: Lisinopril 20 MG TAB PO (09:44)
[2024-03-22] MEDS: Famotidine 20 MG TAB 40 MG PO (09:44)
[2024-03-22] MEDS: Lidocaine 5% Patch 1 PATCH TP (09:45)
[2024-03-22] MEDS: Acetaminophen 325 MG TAB 650 MG PO (09:45)
[2024-03-22] MEDS: Normal Saline Flush 10 ML SYR IVP (09:46)
--- NOTE | 2024-03-22 10:43 | DI.US_ITS ---
APPROVED REPORT EXAM: Comprehensive 2D, Doppler, and color-flow Echocardiogram Patient Location: In-Patient Room/Bed: 210 Wellness Director: Binta Crystal RDCS (AE) Indications: PE, Hypoxia, Right heart strain on CT, CHF, Dementia Other Information Study Quality: Fair. Technically limited study due to body habitus, inability to position patient exa m done supine. Conclusion Normal left ventricular wall thickness and chamber size. Ejection fraction 55 to 60%. Wall motion a ppears normal Normal right ventricular size and function Both atria are normal in size Trileaflet mildly sclerotic aortic valve without stenosis or regurgitation Mitral annular calcification, mild mitral regurgitation Normal estimated right ventricular systolic pressure 25 mmHg Ascending aorta measures 3.59 cm Wall motion Left Ventricle The left ventricle is normal size. The left ventricular systolic function is normal. The left ventric ular ejection fraction is within the normal range. Moderate concentric left ventricular hypertrophy. There is normal LV segmental wall motion. There is no ventricular septal defect visualized. LVEF is 5 7%. Right Ventricle Right ventricle is grossly normal in size. Right ventricular systolic function is grossly normal. Atria The left atrium size is normal. The right atrium size is normal. The interatrial septum is intact wit h no evidence for an atrial septal defect. Aortic Valve The aortic valve is mildly sclerotic Aortic valve is trileaflet. There is no aortic valvular stenosis . No aortic regurgitation is present. Mitral Valve Moderate mitral annular calcification. No evidence of mitral valve stenosis. Mild mitral regurgitati on. Tricuspid Valve The tricuspid valve is normal in structure. There is no tricuspid valve stenosis. Trace tricuspid reg urgitation. The RVSP is 25.1 mmHg. Pulmonic Valve The pulmonary valve is normal in structure. There is no pulmonic valvular stenosis. Trace pulmonic re gurgitation. Great Vessels The aortic root is normal in size. The ascending aorta is mildly dilated. Aortic arch is not well vis ualized. IVC is normal in size and collapses >50% with inspiration. Pericardium There is no pericardial effusion. 2D Dimensions IVSD d PLAX 1.31 cm F: 0.6-1.0 Ao Root d 3.38 cm F: 2.7 - 3.3 LVPW d PLAX 1.32 cm F: 0.6 - 1.0 Ao Asc Diam d 3.59 cm F: 2.3 - 3.1 LVID d PLAX 4.47 cm F: 3.8 - 5.2 LVDs 3.14 cm F: 2.2 - 3.5 LV EF Teichholz 57.0 % FS 29.73 % LV EDV (Teich) 91.2 mL LV ESV (Teich) 39.2 mL M-Mode TAPSE 1.78 cm (M/F) >1.7 Auto EF LV EDV A4C 85.1 mL LV EDV A2C 103.5 mL LV EDV BP 93.2 mL LV ESV A4C 35.1 mL LV ESV A2C 46.8 mL LV ESV BP 40.2 mL LVEF(%) A4C 58.7 % LVEF(%) A2C 54.8 % LVEF(%) BP 56.9 % LV SV A4C 49.9 ml LV SV A2C 56.7 ml LV SV BP 53.0 ml LV CO A4C 3.2 L/min LV CO A2C 2.9 L/min LV CO BP 3.0 L/min HR A4C 63.84 BPM HR A2C 51.21 BPM LV EDV Index (BP) LA Volume LA Length A4C 4.9 cm LA Length A2C 5.0 cm LA Area A4C s 16.49 cm2 LA Area A2C s 16.71 cm2 LA Vol A4C A-L 46.72 mL LA Vol A2C A-L 47.34 mL LA Vol Biplane A-L 47.3 mL LA Vol/BSA A4C A-L LA Vol/BSA A2C A-L LA Vol/BSA BP A-L 20.2 mL/m2 LA Vol A4C MOD 42.7 mL LA Vol A2C MOD 44.6 mL LA Vol BP MOD 43.6 mL RA Volume RA Area A4C 9.4 cm2 RA ESV A4C (A-L) 18.2mL RA Vol/BSA A4C A-L RA Length A4C 4.2 cm RA ESV A4C (MOD) 18.1mL LV Diastology MV E' medial 0.068 (>0.07 m/s) MV E Vmax 1.00 (0.4-1.3 m/s) MV E/E' MED 14.75 (<14) MV A Vmax 1.30 (0.4-1.3 m/s) E/A Ratio 0.8 Aortic Valve AoV Vmax 1.31 m/s LVOT Vmax 1.16 m/s AoV Peak Grad 6.9 mmHg LVOT Peak Grad 5.4 mmHg AoV Area (Vmax) 2.66 cm2 LVOT VTI 0.268 m AoV VTI 0.310 m LVOT Mean Grad 2.8 mmHg AoV Mean Erasmo. 0.96 m/s LVOT SV 80.24 mL AoV Mean Grad 4.1 mmHg LVOT Diam s 1.95 cm AoV Area (VTI) 2.59 cm2 AV Regurg Peak Gr. 6.87 mmHg Velocity Ratio 0.89 Mitral Valve MV DT 271 (160-240 msec) MV Vmax TIPS 1.40 m/s MV Mean Grad 3.0 (<2mmHg) MV VTI 0.488 m Pulmonary Valve PV Vmax 1.22 (0.5-1.5 m/s) RVOT Vmax 0.97 m/s PV Peak Grad 6.0 mmHg RVOT Peak Gr. 3.8 mmHg PV Mean Erasmo 0.81 m/s RVOT VTI 0.179 m PV Mean Grad 3.0 mmHg RVOT Mean Gr. 1.9 mmHg Tricuspid Valve RA Pressure 3.00 mmHg TR Vmax 2.35 m/s TV S' 0.13 m/s TR Peak Grad 22.1 mmHg RVSP (TR) 25.1 mmHg
[2024-03-22 11:32] VITALS: BP 154/72; PULSE 60; RESP 15; TEMP 36.3; O2SAT 94
--- NOTE | 2024-03-22 13:30 | PT.INTREAT ---
PT Notes Visit Reasons: Pulmonary Embolism Date: 03/22/2024 PRECAUTIONS: Fall, Standard, Activities as Tolerated SUBJECTIVE: Pt reports pain on her right lower abdominal quadrant and lateral right hip, pt agreed to participating with therapy OBJECTIVE: seated in chair with telemetry in place. ? PAIN: Pt reports pain on her right lower abdominal quadrant and right lateral hip Therapeutic Activities [id number]: Direct one-on-one instruction in dynamic activities to improve functional performance. ? BED MOBILITY/TRANSFERS? Rolling L/R: SBA Supine-sit: SBA? Sit-supine: SBA ? Sit-stand: SBA? Stand-sit: SBA? Provided skilled cues and instruction on performance and technique throughout. GAIT? Assistive Device: FWW ? Weight bearing: Full Assist: CGA-SBA ? Distance:?120ft, CGA for pt safety due to impulsivity ? distance limited in 1st session by pain ? ASSESSMENT:? Pt continues to require tactile cue to remainwith the FWW. pt has tendency to leave AD behind, and turn without holding on to AD when reaching for items (box of tissue/phone), pleasantly confused , word finding deficits. Unable to tell time. Pt utilizes humor to cover memory deficits. PLAN: Continue with balance training, global strengthening and general conditioning for improved safety, mobility and activity tolerance until pt is ready for DC. TREATMENT CODE/TIME: [id number], 25mins([id number])
--- NOTE | 2024-03-22 14:29 | DSE_ITS ---
Date of service: 03/22/24 Time of Service: 14:29 DS: Diagnosis Discharge Diagnosis (1) Pulmonary embolism on right: Status: Acute Asessment and Plan: -initially With mild hypoxia, signs of right heart strain on CT. -TTE without acute findings -transitioned to RA -was on Enoxaparin transitioned to PO eliquis on discharge -No clear DVT clinically. -No clear cause -Consider malignancy work up with primary care. (2) Alzheimer dementia with psychotic disturbance: Status: Acute Asessment and Plan: -Treated as outpatient wiht memantine, quetiapine and prn olanzapine. -She is not exibiting abnormal thoughts this morning as she was last night. Continue home medicaiton. (3) Cerebral amyloid angiopathy: (4) Anemia of chronic disease: Status: Chronic (5) Essential hypertension: Status: Chronic (6) Constipation by delayed colonic transit: Status: Chronic (7) Chronic pain syndrome: Status: Chronic (8) Depressive disorder: Status: Chronic (9) Chronic renal insufficiency, stage III (moderate): Status: Acute Discharge Plan Disposition Patient Disposition: [facility] Condition: Good Discharge Details Reason For Visit: Pulmonary Embolism Admit Date/Time: 03/20/24 12:16 Admit Provider: Shine Ferguson Attending Provider: Shine Ferguson Primary Care Provider: Ariadna Trevino Hospital Course Hospital Course: Patient initially presented after an unwitnessed fall that was ultimately determined to be secondary to an acute PE. Patient did require supplemental oxygen on admission but as sinc been weaned to room air. She was initially treated with subcu enoxaparin but has been transitioned to PO eliquis at discharge. Given that the patient is back to her baseline mental status and O2 requirements it was determined that she was stable for discharge. Home Meds and New Rx's Prescriptions: New Eliquis 5 mg Tablet 10 mg PO BID 14 Days Qty: 56 0RF Eliquis 5 mg tablet 5 mg PO BID Qty: 90 2RF Rx Instructions: start once 10mg BID dosing is completeted Continued polyethylene glycol 3350 [Miralax] 17 gram/dose powder 17 g PO DAILY PRN cyclobenzaprine 5 mg tablet 5 mg PO TID PRN (Reason: muscle spasm) Qty: 15 0RF Rx Instructions: avoid concurrent use with oxycodone monitor for sedation/fall risk, especially during initiation of medication trial allopurinol 100 mg tablet 100 mg PO DAILY famotidine [Pepcid] 40 mg tablet 40 mg PO BID Qty: 60 12RF ferrous gluconate 324 mg (38 mg iron) tablet 324 mg PO BID Qty: 60 12RF sennosides 8.6 mg tablet 8.6 mg PO DAILY naloxone 4 mg/actuation spray,non-aerosol 1 spray intranasal Q2M PRN Rx Instructions: spray 1 dose into ONE nostril; alternate nostrils w each dose until help arrives trazodone 100 mg tablet 100 mg PO QHS Qty: 30 1RF ursodiol 250 mg tablet See Rx Instructions .ROUTE .COMPLEX Qty: 60 11RF Dose Instruction: 1 TAB BY MOUTH TWICE A DAY Rx Instructions: 1 TAB BY MOUTH TWICE A DAY oxycodone 5 mg tablet 5 mg PO BID MDD 10 mg PRN (Reason: severe pain (scale score 7-10)) Qty: 30 0RF fentanyl 12 mcg/hr patch 72 hour 1 patch transdermal Q72H MDD 1 patch Qty: 10 0RF lisinopril 20 mg tablet 20 mg PO DAILY melatonin [Meladox] 3 mg tablet extended release 3 mg PO HS levothyroxine 125 mcg tablet 125 mcg PO DAILY duloxetine 60 mg capsule,delayed release(DR/EC) 60 mg PO DAILY lidocaine 5 % adhesive patch,medicated 1 patch topical DAILY memantine 5 mg tablet 10 mg PO BID Patient Comments: Recent frequent changes to dosing and frequency. Physician updated. 03/18/24 Rx Instructions: 5 mg orally; olanzapine 5 mg tablet 5 mg PO BID PRN Patient Comments: 5-10 mg as needed quetiapine [Seroquel] 25 mg tablet 25 mg PO DAILY Discharge Instructions Activity:: Activity as Tolerated Equipment/Supplies:: No Equipment Needed Diet:: As Tolerated Discharge Orders Discharge Orders: Discharge Order (Routine); Ordered 03/22/24 Ordered By: Jonathan Post DS: Summary Time Spent with Patient providing and/or coordinating discharge services: Greater than 30 minutes Status at Discharge Functional status at discharge: independent ambulation Overall status at discharge: patient is back to baseline Mental Status: mental status grossly normal Speech and Movement: speech and movement normal Mood: congruent mood Affect: normal affect Quality:SDOH Health Related Social Needs: Health related social needs risk of homeless, transpo insecurity, personal safety Referrals and interventions: lives at [facility] Exam Narrative Exam Narrative: well appearing elderly female layign in bed in no acute distress, awake, alert, oriented to person and place, linear thought process without verbalization of paranoid thinking, heart RRR, lungs CTAB, abdomen soft, non-tender, non- distended, Psych Mental Status: mental status grossly normal Speech and Movement: speech and movement normal Mood: congruent mood Affect: normal affect DS: Data Vitals/I&O Vitals and I&O: Vital Signs Temperature 97.3 F L 03/22/24 11:32 Temperature Source Skin 03/22/24 11:32 Pulse 60 03/22/24 11:32 Pulse Rhythm Regular 03/21/24 23:30 Pulse 63 03/20/24 13:39 Respiratory Rate 15 03/22/24 11:32 Respiratory Effort Normal, Non-Labored 03/21/24 23:30 Respiratory Depth Normal 03/21/24 23:30 Respiratory Pattern Normal 03/21/24 23:30 Blood Pressure 154/72 H 03/22/24 11:32 Blood Pressure Mean 87 03/20/24 13:39 Blood Pressure Position Supine 03/20/24 04:54 Pulse Oximetry 94 03/22/24 11:32 Oxygen Delivery Method Room Air 03/22/24 11:32 Oxygen Flow Rate 0 03/22/24 11:32 Pain Level 4 03/22/24 11:32 Comment RN Notified 03/22/24 03:04 Intake & Output 03/21/24 03/22/24 03/22/24 17:59 05:59 17:59 Intake Total 720 / 720 480 / 1200 Output Total 500 / 500 600 / 1100 450 / 450 Balance 220 / 220 -120 / 100 -440 / -440 Intake: IV Oral 720 / 720 480 / 1200 Output: Urine 500 / 500 600 / 1100 450 / 450 Other: Urine Color Yellow Yellow Yellow Urine Appearance Cloudy Cloudy Cloudy Sediment Mucous Threads Urine Odor Normal Normal Comment pT is complaining of burning when the pT is urinating. Nurse has been notified Patient reports burning with urination Voiding Methods Toilet Bedside Commode Data Completed and Pending Labs on day of discharge: Labs from last 24 hours 03/22/24 03/21/24 06:05 15:30 WBC 10.78 RBC 3.12 L Hgb 8.5 L Hct 28.0 L MCV 90 MCH 27.2 MCHC 30.4 L RDW 16.7 H Plt Count 219 MPV 11.4 H Immature Gran % 0.4 Neutrophils % 74.6 Lymphocytes % 13.4 Monocytes % 9.1 Eosinophils % 2.1 Basophils % 0.4 Nucleated RBC % 0.0 Absolute Neutrophils 8.05 H Absolute Lymphocytes 1.44 Absolute Monocytes 0.98 H Absolute Eosinophils 0.23 Absolute Basophils 0.04 Sodium 143 Potassium 4.2 Chloride 107 Carbon Dioxide 30.2 Anion Gap 5.8 BUN 21 H Creatinine 1.4 H Est GFR (CKD-EPI 2020) 37.56 Glucose 87 Calcium 9.0 Urine Color Yellow Urine Clarity Sl Cloudy Urine pH 6.0 Ur Specific [place] 1.010 Urine Protein Negative Urine Ketones Negative Urine Blood Trace-intact H Urine Nitrite Negative Urine Bilirubin Negative Urine Urobilinogen 0.2 Ur Leukocyte Esterase Moderate H Urine RBC 0-2 Urine WBC >50 H Ur Epithelial Cells Rare Urine Crystals Negative Urine Bacteria Moderate Urine Casts Negative Urine Mucus Negative Ur Culture Indicated? Yes Urine Glucose Negative Preliminary micro results at discharge 03/21/24 15:30 Urine Culture - Preliminary Urine - Reflex from Ua Enterococcus Species PFSH All Active Problems (Updated 03/20/24 @ 16:28 by Shine Ferguson) Chronic renal insufficiency, stage III (moderate) (Acute) Alzheimer dementia with psychotic disturbance (Acute) Pulmonary embolism on right (Acute) Fall (Acute) Altered mental status (Acute) Osteoarthritis of spine with radiculopathy, lumbar region (Acute) Bladder diverticulum (Acute) Coronary artery calcification seen on CAT scan (Acute) Pancolonic diverticulosis (Acute) Gallstones (Acute) DNR (do not resuscitate) (Acute) See 10/15/2023 COLST: DNI/DNR, + transfer and treat Current chronic use of systemic steroids (Acute) Counseling regarding advance care planning and goals of care (Acute) Palliative care patient (Acute) Abdominal pain (Acute) Callosity (Acute) Nail dystrophy (Acute) Toe pain, left (Acute) Toe pain, right (Acute) Multiple fractures of ribs of right side (Acute) Colostomy status (Chronic) Anterolisthesis of lumbosacral spine (Chronic) Abd/CT 03/2022 Mild degenerative anterolisthesis L5 upon S1 noted as well as vacuum phenomena within the L5-S1 disc space which was not previously present. 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 Patient aware that there is higher than recommended dose. Makes informed decision, drug contract with [facility] Chronic pain syndrome (Chronic) Due to chronic back pain, 08/2021-drug contract at [facility], PMS review,11/2021-urine drug screen Using oxycodone for pain mgmt when taking a shower. 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 She did see surgery down at in 2022. This is a large extensive surgery and they did not think she was a good surgical candidate due to her frailty. GERD (gastroesophageal reflux disease) (Chronic) Urethral caruncle (Chronic) dx by [facility] Gout (Chronic) Rectovaginal fistula (Chronic) Anemia of chronic disease (Chronic) Constipation by delayed colonic transit (Chronic) Urinary retention with incomplete bladder emptying (Chronic) Adrenal insufficiency (Chronic) Iatrogenic secondary to chronic steroid use, on low-dose chronic steroid Primary osteoarthritis of left knee (Chronic 07/30/15) PMR (polymyalgia rheumatica) (Chronic 01/15/16) DX 2016 : /curtis resp. 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 Medical History Visual field loss Anterolisthesis of lumbar spine Multiple fractures of ribs Abdominal pain in female Alzheimer's dementia Brain bleed 05/2021 tx at [facility], intra parenchymal left-sided hemorrhage-treated through [facility] September 2023, new hemorrhagic stroke felt to be secondary to CAA, see ED notes Cerebral amyloid angiopathy : possible diagnosis re:brain MRI/ followed by [facility] Dr.Anthony Avalos T12 burst fracture Compression fracture of body of thoracic vertebra Palliative care patient Perforation of colon as colonoscopy complication Tuberculosis Insomnia Raynaud's disease Excessive sweating (06/02/16) daytime sweating if >74 degrees/ fatigue normal cbc, spep,echocardiogram,sed.rate,cmp Colon polyp (06/28/18) adenoma colon pollyps-1997; none on subsequent colonoscopies; most recent c- scope in 2005 was normal 2018-adenoma Surgical History S/P rotator cuff repair S/P BSO (bilateral salpingo-oophorectomy) S/P appendectomy S/P hysterectomy S/P kyphoplasty H/O partial resection of colon Sigmoid colon resection 06/28/18 S/P tonsillectomy H/O dilation and curettage Laparoscopic, Ovarian Cystectomy B/L EGD - [facility] (~2003) MILD EROSIVE ESOPHAGITIS, NO PINON'S ON BIOPSY Colonoscopy - [facility] ADENOMA COLON POLYPS 1997, NONE ON MULTIPLE SUBSEQUENT COLONOSCOPIES, MOST RECENT C-SCOPE 2005 WAS NORMAL, 2018 - cecal polyp, diverticulosis Family History Mother , in her 80s from pneumonia Heart disease Pneumonia Father , from complications of prostate surgery in his 80s Stroke Personal history of malignant neoplasm Heart disease Brother , aged 68 Alcohol abuse Cirrhosis with alcoholism Grandfather Essential hypertension Heart disease Grandmother Personal history of malignant neoplasm Stroke Grandmother Personal history of malignant neoplasm Son , from his drinking/SA; her oldest child Alcohol abuse Social History (Updated 03/20/24 @ 15:55 by Shine Ferguson) Smoking/Tobacco Use Status: Former Tobacco Use Smoking risk assessment performed?: Yes Alcohol Intake: current Alcohol Intake frequency: holidays/special occasions only Alcohol type: hard liquor Details: HOLIDAYS AND SPECIAL OCCASIONS ONLY Drug use: Never Substance use type: does not use Counseling given: No Household members: other Details: 2 Housing: assisted living facility Do you feel safe at home: No Do you feel safe in your relationship?: No Additional Social history: h/o unsafe relationship with Now live alone at [facility] assisted living in [facility]. Daughter in [place], near where the patient grew up. No other family close History History 6 Para 3 Hx # Term Pregnancies 3 Multiple births Hx # Pregnancies Ectopic pregnancies AB induced Hx Number of Living Children 3 AB spontaneous Time Spent with Patient Time Spent with Patient: <45 minutes Time was spent: preparing to see the patient(eg.review tests), obtaining and/or reviewing separately otained hiistory, ordering medications,tests, procedures, referring, communicating with other health critical care unit manager, indepentently interpreting results, counseling the patient and care coordination
--- NOTE | 2024-03-22 20:20 | PDOC.CMDIS ---
Date of service: 03/22/24 Time of Service: 20:20 LACE Index Scoring Tool Questions: Length of Stay (in days): 2 Was the patient admitted via the E.D.?: Yes Comorbidities: Mild Liver/Renal Disease E.D. Visits: 3 Answers: Total Score: 10 Risk of Readmission: High Risk Care Management Discharge Plan Reason for Hospitalization: Pulmonary Embolism Discharge Plan: Amanda returned home to the [facility] today, where she resides. CM contacted Sloane at , informing of her discharge, and faxed a signed discharge summary, as requested. CM coordinated [facility] private vehicle transport home. She will follow up with her PCP and discharge plan of care. She was happy to be going home. Patient/Family Education Needs: Review discharge instructions and limitations, discussion of self care needs including ask me three. Services Needed at Discharge: Transportation ([facility] private vehicle) SDOH Health Related Social Needs: Health related social needs risk of homeless, transpo insecurity, personal safety Referrals and interventions: lives at [facility]
== END 2024-03-22 15:56 | DRG 176 ==
LOC: ER 12:03 → MS 13:46
PROVIDERS: Emergency Medicine; Nurse Practitioner Acute Care; Admitting Provider Family Medicine; Emergency Provider Emergency Medicine; PCP Nurse Practitioner Family; Visit Provider Family Medicine
DX: I26.99 Other pulmonary embolism without acute cor pulmonale (principal); F02.C2 Dementia in other diseases classified elsewhere, severe, with psychotic disturbance; E85.4 Organ-limited amyloidosis; E27.40 Unspecified adrenocortical insufficiency; E03.9 Hypothyroidism, unspecified; K59.01 Slow transit constipation; D63.8 Anemia in other chronic diseases classified elsewhere; G89.4 Chronic pain syndrome; F32.A Depression, unspecified; G30.1 Alzheimer's disease with late onset; I68.0 Cerebral amyloid angiopathy; N18.30 Chronic kidney disease, stage 3 unspecified; R09.02 Hypoxemia; I51.89 Other ill-defined heart diseases; I12.9 Hypertensive chronic kidney disease with stage 1 through stage 4 chronic kidney disease, or unspecified chronic kidney disease; W19.XXXA Unspecified fall, initial encounter; Z66 Do not resuscitate; G47.00 Insomnia, unspecified; M35.3 Polymyalgia rheumatica; G47.33 Obstructive sleep apnea (adult) (pediatric)
CPT/HCPCS: 00123; 36415; 71275; 80048; 80053; 85027; 87077; 93005; 93306; 96361; 96372; 96374; 96375; 97161; 97530; 99285; 70450; 71046; 72125; 73502; 81003; 81015; 83735; 84484; 85025; 85379; 87086; 87186; 93010; 99223; 99232; 99238; J1200; J1650; J2919; J3490

== ENCOUNTER 2024-03-30 19:54 | Inpatient (IN) | payer MEDICARE, SELFPAY ==
[2024-03-30 19:56] VITALS: BP 173/47; PULSE 67; RESP 18; TEMP 36.7; O2SAT 96
--- NOTE | 2024-03-30 20:15 | DI.CT_ITS ---
Exam(s) CT ABDOMEN PELVIS WO EXAM: CT ABDOMEN PELVIS WO CLINICAL HISTORY: LLQ pain/tenderness; possible impacted stoma. TECHNIQUE: Imaging Protocol: Axial computed tomography images with coronal and sagittal reformatted images were created and reviewed. Oral: no COMPARISON: CT CT THORACIC LUMBAR SPINE REC from 01/16/[address] CHEST/ABD/PEL WO from 01/16/2024 FINDINGS: Lung Bases: No acute findings. Liver: Normal density. No suspicious mass. Gallbladder and biliary tract: No radiodense calculus or biliary dilation. Pancreas: Normal density. No abnormal calcifications or inflammatory process. Spleen: Normal. Kidneys: Normal size, contour and axis. No radiodense stones. No obstructive uropathy. Stable renal cysts. No suspicious masses seen. Adrenal glands: No masses seen. Lymph nodes: Within normal limits. Vasculature: Abdominal aorta non-dilated. Soft tissues: Left-sided ostomy again noted. Large left-sided parastomal hernia containing portion o f the descending colon which is nonobstructed. Bladder: Diffuse bladder wall thickening. Trabeculated wall. Multiple diverticula. This appears ch ronic. No mass or calculi. Bowel: No obstruction or bowel wall thickening. Moderate to increased quantity of fecal material. Peritoneal cavity: No ascites. No focal collection. No mesenteric inflammatory response. Reproductive organs: Unremarkable. Bones: Old T12 compression fracture with kyphoplasty material. IMPRESSION: Left-sided ostomy and paraspinal stomal hernia containing portion of the descending colon again noted without evidence of obstruction. Chronic bladder wall thickening, trabeculation and diverticula. RADIATION DOSE DELIVERED: 532.4mGy.cm Total DLP DATA REPOSITORY: All CT scans at this facility are submitted to the National Radiology Data Registry (NRDR) Dose Index Registry (DIR) with the [employer] ([employer]). RADIATION OPTIMIZATION: All CT scans at this facility use at least one of these dose optimization te chniques: automated exposure control; mA and/or kV adjustment per patient size (includes targeted exa ms where dose is matched to clinical indication); or iterative reconstruction.
[2024-03-30 20:27] LABS: Abs Immature Grans 0.02 10^3/uL (0.0-0.06); Absolute Basophil Count 0.02 10^3/uL (0.0-0.2); Absolute Eosinophil Count 0.19 10^3/uL (0.0-0.7); Absolute Lymphocyte Count 1.36 10^3/uL (1.2-3.4); Absolute Monocyte Count 0.64 10^3/uL (0.1-0.8); Basophils % 0.3 %; Eosinophils % 2.9 %; HCT 29.9 % (36.0-46.0); HGB 9.1 g/dL (11.2-15.7); Immature Grans % 0.3 %; Lymphocytes % 20.8 %; MCHC 30.4 % (32.0-36.0); MCV 92 fL (80-95); Monocytes % 9.8 %; Neutrophils % 65.9 %; Platelet Count 231 10^3/uL (130-400); RBC 3.25 10^6/uL (3.93-5.22); RDW 16.2 % (11.7-14.6); RDW-SD 54.9 fL; WBC 6.53 10^3/uL (4.4-10.8)
[2024-03-30] MEDS: MORPHine 10 MG/ML VIAL 4 MG IVP (20:29)
[2024-03-30 20:42] LABS: ALT 12 U/L (14-59); AST 10 U/L (15-37); Alkaline Phosphatase 98 U/L (46-116); Anion Gap 5.7 mmol/L (3-11); BUN 18 mg/dL (7-18); Bilirubin, Total 0.21 mg/dL (0.2-1.0); CO2 30.3 mmol/L (21.0-32.0); CREATININE 1.6 mg/dL (0.55-1.02); Calcium 9.3 mg/dL (8.5-10.1); Chloride 102 mmol/L (98-107); Glucose 114 mg/dL (74-106); Magnesium 2.1 mg/dL (1.8-2.4); Potassium 3.7 mmol/L (3.5-5.1); Sodium 138 mmol/L (136-145); Total Protein 7.5 g/dL (6.4-8.2)
[2024-03-30] MEDS: Lactated Ringers 1,000 ML 1000 ML IV (20:49)
--- NOTE | 2024-03-30 20:53 | ED.GENADUL_ITS ---
Discharge Plan Discharge Details Chief Complaint: Abd Prob Primary Care Provider: Ariadna Trevino ED Provider: Attila Amado [place] Meds and New Rx's Prescriptions: No Action polyethylene glycol 3350 [Miralax] 17 gram/dose powder 17 g PO DAILY PRN cyclobenzaprine 5 mg tablet 5 mg PO TID PRN (Reason: muscle spasm) Qty: 15 0RF Rx Instructions: avoid concurrent use with oxycodone monitor for sedation/fall risk, especially during initiation of medication trial allopurinol 100 mg tablet 100 mg PO DAILY famotidine [Pepcid] 40 mg tablet 40 mg PO BID Qty: 60 12RF ferrous gluconate 324 mg (38 mg iron) tablet 324 mg PO BID Qty: 60 12RF sennosides 8.6 mg tablet 8.6 mg PO DAILY naloxone 4 mg/actuation spray,non-aerosol 1 spray intranasal Q2M PRN Rx Instructions: spray 1 dose into ONE nostril; alternate nostrils w each dose until help arrives trazodone 100 mg tablet 100 mg PO QHS Qty: 30 1RF ursodiol 250 mg tablet See Rx Instructions .ROUTE .COMPLEX Qty: 60 11RF Dose Instruction: 1 TAB BY MOUTH TWICE A DAY Rx Instructions: 1 TAB BY MOUTH TWICE A DAY oxycodone 5 mg tablet 5 mg PO BID MDD 10 mg PRN (Reason: severe pain (scale score 7-10)) Qty: 30 0RF fentanyl 12 mcg/hr patch 72 hour 1 patch transdermal Q72H MDD 1 patch Qty: 10 0RF lisinopril 20 mg tablet 20 mg PO DAILY melatonin [Meladox] 3 mg tablet extended release 3 mg PO HS levothyroxine 125 mcg tablet 125 mcg PO DAILY duloxetine 60 mg capsule,delayed release(DR/EC) 40 mg PO DAILY lidocaine 5 % adhesive patch,medicated 1 patch topical DAILY Eliquis 5 mg tablet 5 mg PO BID Qty: 90 2RF Rx Instructions: start once 10mg BID dosing is completeted memantine 5 mg tablet 10 mg PO BID Patient Comments: Recent frequent changes to dosing and frequency. Physician updated. 03/18/24 Rx Instructions: 5 mg orally; olanzapine 5 mg tablet 5 mg PO BID PRN Patient Comments: 5-10 mg as needed quetiapine [Seroquel] 25 mg tablet 25 mg PO DAILY divalproex [Depakote] 500 mg tablet,delayed release (DR/EC) 500 mg PO HS HPI General Mode of arrival: EMS . Date/Time Provider Initiated Documentation: 03/30/24 20:07 . Limitations to Documentation: other (Dementia) . Information obtained by: patient, RN/MD, EMS and old records reviewed . HPI Narrative: Patient being sent in to ED from [facility] for reported behavior problems. Per nursing report, patient being sent in because she is becoming disruptive and was throwing himself on the floor. Per patient as well as EMS she is presenting because of left lower quadrant abdominal pain and lack of output from her colostomy. Patient does have history of dementia. She cannot provide accurate timeline but does report significant pain in her abdomen at the site of her colostomy. She is unable to provide more of a history. Per old records she was discharged from the hospital earlier this month after being admitted with a diagnosis of pulmonary embolus. She currently is on anticoagulation. She was seen by palliative care today who also noted patient complaining of left abdominal pain. Related Data Home Medications ?Medication ?Instructions ?Recorded ?Confirmed polyethylene glycol 3350 17 17 g PO DAILY PRN 06/05/21 03/30/24 gram/dose oral powder (Miralax) cyclobenzaprine 5 mg tablet 5 mg PO TID PRN muscle spasm #15 07/23/23 03/30/24 tabs trazodone 100 mg tablet 100 mg PO QHS sleep #30 tabs 08/24/23 03/30/24 lisinopril 20 mg tablet 20 mg PO DAILY 10/02/23 03/30/24 melatonin 3 mg tablet,extended 3 mg PO HS 11/10/23 03/30/24 release (Meladox) naloxone 4 mg/actuation nasal spray 1 spray intranasal Q2M PRN 12/11/23 03/30/24 sennosides 8.6 mg tablet 8.6 mg PO DAILY 12/11/23 03/30/24 allopurinol 100 mg tablet 100 mg PO DAILY 12/16/23 03/30/24 famotidine 40 mg tablet (Pepcid) 40 mg PO BID #60 tabs 02/08/24 03/30/24 ursodiol 250 mg tablet See Rx Instructions .Route 02/09/24 03/30/24 .COMPLEX #60 tabs ferrous gluconate 324 mg (38 mg 324 mg PO BID #60 tabs 02/18/24 03/30/24 iron) tablet oxycodone 5 mg tablet 5 mg PO BID PRN severe pain (scale 02/22/24 03/30/24 score 7-10) #30 tabs fentanyl 12 mcg/hr transdermal 1 patch transdermal Q72H #10 ea 03/15/24 03/30/24 patch memantine 5 mg tablet 10 mg PO BID 03/18/24 03/30/24 olanzapine 5 mg tablet 5 mg PO BID PRN 03/18/24 03/30/24 quetiapine 25 mg tablet (Seroquel) 25 mg PO DAILY 03/18/24 03/30/24 duloxetine 60 mg capsule,delayed 40 mg PO DAILY 03/20/24 03/30/24 release levothyroxine 125 mcg tablet 125 mcg PO DAILY 03/20/24 03/30/24 lidocaine 5 % topical patch 1 patch topical DAILY 03/20/24 03/30/24 apixaban 5 mg tablet (Eliquis) 5 mg PO BID #90 tabs 03/22/24 03/30/24 divalproex 500 mg tablet,delayed 500 mg PO HS 03/30/24 03/30/24 release (Depakote) Previous Rx's ?Medication ?Instructions ?Recorded cyclobenzaprine 5 mg tablet 5 mg PO TID PRN muscle spasm #15 07/23/23 tabs trazodone 100 mg tablet 100 mg PO QHS sleep #30 tabs 08/24/23 famotidine 40 mg tablet (Pepcid) 40 mg PO BID #60 tabs 02/08/24 ursodiol 250 mg tablet See Rx Instructions .Route 02/09/24 .COMPLEX #60 tabs ferrous gluconate 324 mg (38 mg 324 mg PO BID #60 tabs 02/18/24 iron) tablet oxycodone 5 mg tablet 5 mg PO BID PRN severe pain (scale 02/22/24 score 7-10) #30 tabs fentanyl 12 mcg/hr transdermal 1 patch transdermal Q72H #10 ea 03/15/24 patch apixaban 5 mg tablet (Eliquis) 5 mg PO BID #90 tabs 03/22/24 Allergies Allergy/AdvReac Type Severity Reaction Status Date / Time banana Allergy Intermediate Other (See Verified 03/20/24 05:00 Comment) cucumber Allergy Intermediate Other (See Verified 03/20/24 05:00 Comment) Iodinated Contrast Media Allergy Intermediate Anaphylaxis Unverified 03/20/24 05:00 chloramphenicol AdvReac Severe KIDNEY Verified 03/20/24 05:00 FAILURE tetracycline AdvReac Severe KIDNEY Verified 03/20/24 05:00 FAILURE melon AdvReac Intermediate Cantaloupe-Abd Verified 03/20/24 05:00 pain, diarrhea donepezil AdvReac Cardiac Unverified 03/20/24 05:00 Dysrhythmia ADHESIVE TAPE Allergy Intermediate takes skin Uncoded 03/20/24 05:00 off SUTURE MATERIAL Allergy Intermediate Purluent Uncoded 03/20/24 05:00 Drainage General Stated Complaint: Abd Prob JOSHUA: 3 Review of Systems Unobtainable due to Exam Narrative Exam Narrative: Const: Obese, elderly female in NAD. VS per triage. HEENT: NC/AT. Normal facial exam. Neck: Supple. Trachea midline. Lungs: Normal respiratory effort. Lungs are clear. Cor: RRR without murmur. Good radial pulses. GI: Soft/ND. Tender in the LLQ. Firm hard stool noted in ostomy bag. Stoma is pink and looks good. Hard stool impacted in the stomal opening with signigicant pain/tenderness. Neuro: A+O x 2. Normal speech. Cranial nerves II - XII grossly intact. No gross motor or sensory deficit. Course Vital Signs Vital signs: Vital Signs Temperature 98.0 F 03/30/24 19:56 Pulse 67 03/30/24 19:56 Respiratory Rate 18 03/30/24 19:56 Blood Pressure 173/47 H 03/30/24 19:56 Pulse Oximetry 96 03/30/24 19:56 Temperature 98.0 F 03/30/24 19:56 Temperature Source Temporal Artery Scan 03/30/24 19:56 Pulse 67 03/30/24 19:56 Respiratory Rate 18 03/30/24 19:56 Respiratory Effort Normal, Non-Labored 03/30/24 20:04 Blood Pressure 173/47 H 03/30/24 19:56 Blood Pressure Position Sitting 03/30/24 19:56 Pulse Oximetry 96 03/30/24 19:56 Oxygen Delivery Method Room Air 03/30/24 19:56 Oxygen Flow Rate 0 03/30/24 19:56 Pain Level 9 03/30/24 20:29 Lab/Test Results Lab/Test Results: Laboratory Tests Range/Units 03/30/24 20:20 WBC (4.4-10.8) 10^3/uL 6.53 RBC (3.93-5.22) 10^6/uL 3.25 L Hgb (11.2-15.7) g/dL 9.1 L Hct (36.0-46.0) % 29.9 L MCV (80-95) fL 92 MCH (27.0-33.0) pg 28.0 MCHC (32.0-36.0) % 30.4 L RDW (11.7-14.6) % 16.2 H Plt Count (130-400) 10^3/uL 231 MPV (8.0-11.0) fL 10.0 Immature Gran % % 0.3 Neutrophils % % 65.9 Lymphocytes % % 20.8 Monocytes % % 9.8 Eosinophils % % 2.9 Basophils % % 0.3 Nucleated RBC % (0.0-0.3) % 0.0 Absolute Neutrophils (1.2-6.7) 10^3/uL 4.30 Absolute Lymphocytes (1.2-3.4) 10^3/uL 1.36 Absolute Monocytes (0.1-0.8) 10^3/uL 0.64 Absolute Eosinophils (0.0-0.7) 10^3/uL 0.19 Absolute Basophils (0.0-0.2) 10^3/uL 0.02 Sodium (136-145) mmol/L 138 Potassium (3.5-5.1) mmol/L 3.7 Chloride (98-107) mmol/L 102 Carbon Dioxide (21.0-32.0) mmol/L 30.3 Anion Gap (3-11) mmol/L 5.7 BUN (7-18) mg/dL 18 Creatinine (0.55-1.02) mg/dL 1.6 H Est GFR (CKD-EPI 2020) (mL/min/1.73m2) 32.00 Glucose (74-106) mg/dL 114 H Calcium (8.5-10.1) mg/dL 9.3 Magnesium (1.8-2.4) mg/dL 2.1 Total Bilirubin (0.2-1.0) mg/dL 0.21 AST (15-37) U/L 10 L ALT (14-59) U/L 12 L Alkaline Phosphatase (46-116) U/L 98 Total Protein (6.4-8.2) g/dL 7.5 Albumin (3.4-5.0) g/dL 3.0 L Medical Decision Making Patient reportedly sent in from [facility] because of behavioral problems. However, patient complaining of left lower quadrant abdominal pain to me, EMS, palliative care provider earlier today. Suspect her behavior problem is likely related to her abdominal pain. Her stoma appears to be impacted. IV established and fluids started. Morphine ordered for pain. Labs and CT scan ordered. Patient's laboratory studies show a stable anemia and normal white cell. Kidney function is also stable with normal electrolytes. Liver function is fine. Urinalysis with trace blood and small leukocytes. Micro with many epithelial cells suggesting contamination. CT of the abdomen pelvis shows no evidence of obstruction. She has a large parastomal hernia. Otherwise no acute process. Discussed pain and apparent constipation with surgery. Given no signs of obstruction and stool in the bag recommendation is to give laxative from above. Fact that she is on chronic opioids this probably because of her constipation. Parastomal hernia probably leads to chronic abdominal pain. Patient's daughter called reporting that [facility] will not take her back without a psychiatric consult. She apparently is not taking her medications. Daughter requesting psychiatric consult. I do not think the [facility] evaluation is going to be helpful. Will place a telehealth psychiatric consult which may be more helpful. Medical Records Medical records reviewed: Yes I reviewed the patient's medical records. Medical records narrative: Discharge summary from earlier this month as well as palliative care note from today. Lab Data Lab results reviewed: Yes I reviewed the patient's lab results. [facility] All Active Problems Recurrent falls (Acute) Alzheimer dementia with psychotic disturbance (Acute) Fall (Acute) Altered mental status (Acute) Osteoarthritis of spine with radiculopathy, lumbar region (Acute) Bladder diverticulum (Acute) Coronary artery calcification seen on CAT scan (Acute) Pancolonic diverticulosis (Acute) Gallstones (Acute) DNR (do not resuscitate) (Acute) See 10/15/2023 COLST: DNI/DNR, + transfer and treat Current chronic use of systemic steroids (Acute) Counseling regarding advance care planning and goals of care (Acute) Palliative care patient (Acute) Abdominal pain (Acute) Callosity (Acute) Nail dystrophy (Acute) Toe pain, left (Acute) Toe pain, right (Acute) Multiple fractures of ribs of right side (Acute) Colostomy status (Chronic) Anterolisthesis of lumbosacral spine (Chronic) Abd/CT 03/2022 Mild degenerative anterolisthesis L5 upon S1 noted as well as vacuum phenomena within the L5-S1 disc space which was not previously present. 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 Patient aware that there is higher than recommended dose. Makes informed decision, drug contract with [facility] Chronic pain syndrome (Chronic) Due to chronic back pain, 08/2021-drug contract at [facility], [facility],11/2021-urine drug screen Using oxycodone for pain mgmt when taking a shower. 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 She did see surgery down at in 2022. This is a large extensive surgery and they did not think she was a good surgical candidate due to her frailty. GERD (gastroesophageal reflux disease) (Chronic) Urethral caruncle (Chronic) dx by [facility] Gout (Chronic) Rectovaginal fistula (Chronic) Anemia of chronic disease (Chronic) Constipation by delayed colonic transit (Chronic) Urinary retention with incomplete bladder emptying (Chronic) Adrenal insufficiency (Chronic) Iatrogenic secondary to chronic steroid use, on low-dose chronic steroid Primary osteoarthritis of left knee (Chronic 07/30/15) PMR (polymyalgia rheumatica) (Chronic 01/15/16) DX 2016 : /curtis resp. to Prednisone Osteoporosis (Chronic) Bone density scan : 11[place]2021[place] [facility] [place] Obstructive sleep apnea syndrome (Chronic) after closed head injury pt not using CPAP machine Non-alcoholic fatty liver disease (Chronic) persistent elevated AST echo. : hepatic steatosis Memory impairment (Chronic 06/18/94) H/O closed head injury w/ result in memory difficulties, word findig problems Depressive disorder (Chronic) Benign paroxysmal positional vertigo (Chronic) after closed head injury Medical History Hypothyroidism (04/05/12) Chronic renal insufficiency, stage III (moderate) Pulmonary embolism on right Cerebral amyloid angiopathy : possible diagnosis re:brain MRI/ [place] [facility] [place] Visual field loss Anterolisthesis of lumbar spine Multiple fractures of ribs Abdominal pain in female Alzheimer's dementia Brain bleed 05/2021 tx at [facility], intra parenchymal left-sided hemorrhage-treated through [facility] September 2023, new hemorrhagic stroke felt to be secondary to CAA, see ED notes T12 burst fracture Compression fracture of body of thoracic vertebra Palliative care patient Perforation of colon as colonoscopy complication Tuberculosis Insomnia Raynaud's disease Excessive sweating (06/02/16) daytime sweating if >74 degrees/ fatigue normal cbc, spep,echocardiogram,sed.rate,cmp Colon polyp (06/28/18) adenoma colon pollyps-1997; none on subsequent colonoscopies; most recent c- scope in 2005 was normal 2018-adenoma Surgical History S/P rotator cuff repair S/P BSO (bilateral salpingo-oophorectomy) S/P appendectomy S/P hysterectomy S/P kyphoplasty H/O partial resection of colon Sigmoid colon resection 06/28/18 S/P tonsillectomy H/O dilation and curettage Laparoscopic, Ovarian Cystectomy B/L EGD - [facility] (~2003) MILD EROSIVE ESOPHAGITIS, NO PINON'S ON BIOPSY Colonoscopy - [facility] ADENOMA COLON POLYPS 1997, NONE ON MULTIPLE SUBSEQUENT COLONOSCOPIES, MOST RECENT C-SCOPE 2005 WAS NORMAL, 2018 - cecal polyp, diverticulosis Family History Mother , in her 80s from pneumonia Heart disease Pneumonia Father , from complications of prostate surgery in his 80s Stroke Personal history of malignant neoplasm Heart disease Brother , aged 68 Alcohol abuse Cirrhosis with alcoholism Grandfather Essential hypertension Heart disease Grandmother Personal history of malignant neoplasm Stroke Grandmother Personal history of malignant neoplasm Son , from his drinking/SA; her oldest child Alcohol abuse Social History Smoking/Tobacco Use Status: Former Tobacco Use Smoking risk assessment performed?: Yes Alcohol Intake: current Alcohol Intake frequency: holidays/special occasions only Alcohol type: hard liquor Details: HOLIDAYS AND SPECIAL OCCASIONS ONLY Drug use: Never Substance use type: does not use Counseling given: No Household members: other Details: 2 Housing: assisted living facility Do you feel safe at home: No Do you feel safe in your relationship?: No Additional Social history: h/o unsafe relationship with Now live alone at [facility] assisted living in [facility]. Daughter in [place], near where the patient grew up. No other family close History History 6 Para 3 Hx # Term Pregnancies 3 Multiple births Hx # Pregnancies Ectopic pregnancies AB induced Hx Number of Living Children 3 AB spontaneous
[2024-03-30 21:59] LABS: Bilirubin Negative (Negative); Blood Trace-intact (Negative); Clarity Sl Cloudy (Clear); Glucose Negative (Negative); Ketones Negative (Negative); Leukocyte Esterase Small (Negative); Nitrite Negative (Negative); Specific Gravity 1.015 (1.005-1.025); Urobilinogen 0.2 mg/dL (Up to 0.2)
[2024-03-30 22:12] LABS: Bacteria Few HPF (Negative); C & S Indicated? No/Sq. Contamination; Casts Negative LPF (Negative); Crystals Negative HPF (Negative); Epithelial Cells Many HPF (Negative); Mucus Negative (Negative); Other Cells Rare Renal (Negative); RBC 0-2 HPF (0-2); WBC 20-50 HPF (0-5)
--- NOTE | 2024-03-30 22:15 | DI.VRAD_ITS ---
PROCEDURE INFORMATION: Exam: CT Abdomen And Pelvis Without Contrast Exam date and time: 03/30/2024 8:34 PM Age: 83 years old Clinical indication: Fever and other: Cough TECHNIQUE: Imaging protocol: Computed tomography of the abdomen and pelvis without contrast. COMPARISON: CT CHEST/ABD/PEL WO 01/16/2024 12:42 PM FINDINGS: Liver: Unremarkable liver. No mass identified. Gallbladder and biliary ducts: The gallbladder is unremarkable. No calcified stones. No ductal dilation. Pancreas: No ductal dilation. No pancreatic lesion seen. Spleen: The spleen is unremarkable. No splenomegaly. Adrenal glands: Normal. No mass. Kidneys and ureters: No significant change in appearance of simple appearing exophytic right kidney. No hydronephrosis or nephrolithiasis. Stomach and bowel: A left lower quadrant colostomy Impression: Appendix: No evidence of appendicitis. Intraperitoneal space: No free air. No significant fluid collection. Vasculature: No abdominal aortic aneurysm. Lymph nodes: No enlarged lymph nodes. Urinary bladder: The urinary bladder pulido are thickened, which could be secondary to underdistention versus infectious/inflammatory etiology. Reproductive: Unremarkable as visualized. Bones/joints: No acute fracture. Chronic T12 compression fracture noted status post kyphoplasty. Soft tissues: A parastomal noted sending fat and colon. Surgical clips noted in the anterior abdominal wall IMPRESSION: 1. No evidence of bowel obstruction or acute bowel inflammation. 2. Left lower quadrant colostomy noted with adjacent parastomal hernia. 3. Thickened urinary bladder pulido, which could be secondary to underdistention versus infectious/inflammatory etiology. Correlate with clinical laboratory findings. Dictated and Authenticated by: Sania Ordoñez MD. Ordering:YUMIKO Aiken MD
[2024-03-30] MEDS: Magnesium Citrate 300 ML BTL 150 ML PO (23:15)
--- NOTE | 2024-03-30 23:38 | ED.PROG_ITS ---
Date of service: 03/30/24 Time of Service: 23:38 Medical Decision Making This patient was signed out to me. Please see previous notes for H&P and initial eval. In brief, 83yo F presenting from [place] for behavioral issues, abdominal pain, and constipation. Medical workup reassuring, given mag citrate. Signed out pending psych consult and reassessment regarding stooling. If no BM, would redose mag citrate in ~3 hours. If +BM and cleared by psychiatry, would discharge home. [facility] (pts assisted living) will not take pt back. Given additional mag citrate while in the ED, subsequently produced additional hard formed stool in colostomy. Telepsych evaluated patient; recommended increasing depakote to 250mg in the am 500mg HS, and adding seroquel 12.5mg BID prn for agitation. While awaiting telepsych reccs, patient got out of bed and had a witnessed fall; staff observed her to stumble and fall backwards striking the back of her head on the ground. No LOC. Placed in c-collar as a precaution. On my assessment she has a small ~3cm laceration to her occiput and a normal neurologic exam. Laceration irrigated and repaired with maame. CT head and c spine independently reviewed; no acute ICH or displaced fracture on my view; discussed with radiology and found to have small right frontal hemmorahge. Plan to discuss with [facility] [place] [place] neurosurgery. If no indication for admission would need to speak with care management in the morning regarding placement. No beds at [facility] available at this time. Will be signed out to oncoming physician during planned EMR downtime; any further changes in patient plan, status, or condition will be documented in paper record. Quality:SDOH Health Related Social Needs: Health related social needs risk of homeless, transpo insecurity, personal safety Exam Narrative Exam Narrative: GENERAL: Alert, no acute distress. SKIN: Warm and well perfused. . HEAD: 3cm shallow laceration to occiput. Otherwise no edema, discoloration or evidence of trauma. Facial bones without deformities or tenderness. EYES: PERRL. No scleral icterus or conjunctival injection. NOSE: No discharge, tenderness, laxity. MOUTH: No malocclusion or trismus. Moist mucus membranes without blood. NECK: Trachea midline. No discolorations or edema. No midline c-spine tendern ess. Full pain free ROM at neck. CV: Regular rate and rhythm, Normal s1 and s2. PV: Radial pulses 2+ bilaterally and symmetric. Dorsalis pedis pulses 2+ bilaterally and symmetric. 2+ capillary refill. No extremity edema. CHEST: No abrasions or ecchymosis. Chest symmetric with respirations. No chest wall tenderness. ABDOMEN: No ecchymosis or abrasions. Soft, nondistended, nontender. BACK: No abrasions, skin openings, or ecchymosis. Spine without bony tenderness, no step offs. PELVIC: Pelvis stable, nontender to lateral compression MSK: No gross deformities or discolorations or lesions. Tolerates full range of motion of extremities without tenderness. Neuro: ? GCS 14.? PERRL.? EOMI.? Fluent speech, no dysarthria. Motor- 5/5 strength symmetric bilateral upper and lower extremities including shoulder abductors/adductors, elbow flexors/extensors, wrist flexors/extensors, finger abductors/adductors, hipflexors/extensors, knee flexors/extensors, ankle dorsiflexors and planter flexors. Sensation- ?Intact to light touch and symmetric multiple dermatomes including upper and lower extremities Coordination- No dysmetria on finger to nose Reflexes- 2/4 achilles & patellar, no clonus Gait/station: ?Normal stance.? No truncal ataxia. Steady gait with equal normal steps CRANIAL NERVES: II: Pupils equal and reactive, III, IV, : EOM intact, no gaze preference or deviation, no nystagmus. V: normal sensation in V1, V2, and V3 segments bilaterally VII: no asymmetry, no nasolabial fold flattening VIII: normal hearing to speech IX, X: normal palatal elevation, no uvular deviation XI: 5/5 head turn and 5/5 shoulder shrug bilaterally XII: midline tongue protrusion Procedures Laceration Laceration 1: Amount of anesthesia used (mL): 6 Pre-repair: wound explored, irrigated extensively and deep structures inta ct Skin layer closed with: other (maame) Number of sutures: 6 Sign Out Sign Out Data: Sign Out Comment: Patient with abdominal pain and constipation receiving Mag Citrate per surgery recommendations. Psychiatry consult placed due to on going behavior problems at [facility]. If cleared by psychiatry but not excepted back to [facility] will need to be referred to case management. Last updated by Attila Amado MD at 03/30/24 23:48 Discharge Plan Discharge Details Chief Complaint: Abd Prob Primary Care Provider: Ariadna Trevino ED Provider: Alisia Snyder Home Meds and New Rx's Prescriptions: No Action polyethylene glycol 3350 [Miralax] 17 gram/dose powder 17 g PO DAILY PRN cyclobenzaprine 5 mg tablet 5 mg PO TID PRN (Reason: muscle spasm) Qty: 15 0RF Rx Instructions: avoid concurrent use with oxycodone monitor for sedation/fall risk, especially during initiation of medication trial allopurinol 100 mg tablet 100 mg PO DAILY famotidine [Pepcid] 40 mg tablet 40 mg PO BID Qty: 60 12RF ferrous gluconate 324 mg (38 mg iron) tablet 324 mg PO BID Qty: 60 12RF sennosides 8.6 mg tablet 8.6 mg PO DAILY naloxone 4 mg/actuation spray,non-aerosol 1 spray intranasal Q2M PRN Rx Instructions: spray 1 dose into ONE nostril; alternate nostrils w each dose until help arrives trazodone 100 mg tablet 100 mg PO QHS Qty: 30 1RF ursodiol 250 mg tablet See Rx Instructions .ROUTE .COMPLEX Qty: 60 11RF Dose Instruction: 1 TAB BY MOUTH TWICE A DAY Rx Instructions: 1 TAB BY MOUTH TWICE A DAY oxycodone 5 mg tablet 5 mg PO BID MDD 10 mg PRN (Reason: severe pain (scale score 7-10)) Qty: 30 0RF fentanyl 12 mcg/hr patch 72 hour 1 patch transdermal Q72H MDD 1 patch Qty: 10 0RF lisinopril 20 mg tablet 20 mg PO DAILY melatonin [Meladox] 3 mg tablet extended release 3 mg PO HS levothyroxine 125 mcg tablet 125 mcg PO DAILY duloxetine 60 mg capsule,delayed release(DR/EC) 40 mg PO DAILY lidocaine 5 % adhesive patch,medicated 1 patch topical DAILY Eliquis 5 mg tablet 5 mg PO BID Qty: 90 2RF Rx Instructions: start once 10mg BID dosing is completeted memantine 5 mg tablet 10 mg PO BID Patient Comments: Recent frequent changes to dosing and frequency. Physician updated. 03/18/24 Rx Instructions: 5 mg orally; olanzapine 5 mg tablet 5 mg PO BID PRN Patient Comments: 5-10 mg as needed quetiapine [Seroquel] 25 mg tablet 25 mg PO DAILY divalproex [Depakote] 500 mg tablet,delayed release (DR/EC) 500 mg PO HS
[2024-03-31] VITALS (94 sets, daily range): BP systolic 110–199; BP diastolic 36–124; PULSE 53–84; RESP 11–22; TEMP 35.8–36.8; O2SAT 92–100
[2024-03-31] MEDS: Magnesium Citrate 300 ML BTL 150 ML PO (00:45)
[2024-03-31] MEDS: ACETAMINOPHEN 1,000 MG/100 ML BTL 400 MG IVPB (02:20)
--- NOTE | 2024-03-31 03:00 | DI.CT_ITS ---
Exam(s) CT HEAD CERVICAL SPINE WO EXAM: CT HEAD CERVICAL SPINE WO CLINICAL HISTORY: fall, lac to back of head, on AC, neurointact. TECHNIQUE: Imaging Protocol: Axial computed tomography images with coronal and sagittal reformatted images were created and reviewed COMPARISON: CT CT HEAD CERVICAL SPINE WO from 09/11/[address] CHEST/ABD/PEL WO from 04/11/[address] CHEST/ABD/PEL WO from 09/29/[address] HEAD CERVICAL SPINE WO from 03/20/[address] CHEST PE CTA from 03/20/2024 FINDINGS: Head CT Ventricles and Extra axial spaces: Normal in size and morphology for the patient's age. Hemorrhage: Small focus of acute hemorrhage measuring 8 millimeters seen in the high right frontal lo be. No additional areas of hemorrhage. Cerebral parenchyma: No evidence of mass or acute infarct. Old left occipital infarct. [place] er changes of small vessel disease. Midline shift: None. Brainstem/Cerebellum: Normal. Calvarium: Normal. Visualized Paranasal sinuses/Mastoids: Clear. Soft tissues: maame noted posteriorly in the scalp. Cervical Spine CT BONES: Vertebral body heights are maintained. Alignment is normal. There is no evidence of acute frac ture. Degenerative disc changes and facet degenerative changes are seen . SOFT TISSUES: No paraspinal hematoma. The airway appears intact. No pneumothorax is seen at the lung apices. Stable masslike density posterior to the right clavicle. IMPRESSION: Head CT: Small focus of hemorrhage in the high right frontal lobe. C-spine CT: Degenerative changes, no acute abnormality. stable on mass like density seen posterior to the right clavicle. RADIATION DOSE DELIVERED: 1,174.72mGy.cm Total DLP DATA REPOSITORY: All CT scans at this facility are submitted to the National Radiology Data Registry (NRDR) Dose Index Registry (DIR) with the [employer] (ACR). RADIATION OPTIMIZATION: All CT scans at this facility use at least one of these dose optimization te chniques: automated exposure control; mA and/or kV adjustment per patient size (includes targeted exa ms where dose is matched to clinical indication); or iterative reconstruction.
--- NOTE | 2024-03-31 03:35 | PSYCO_ITS ---
Date of service: 03/31/24 Time of Service: 03:36 Summary Note PSYCHIATRY CONSULT NOTE: INITIAL EVALUATION Date/Time:?03/31/2024 3:34:51 AM Name:Brian Manuel :?1940 Location of the patient:?[facility] ED Consulting Array Clinician:Gertrudis Atkinson Location of the clinician:?[place] Length of Consult:?50min SUMMARY 83-year-old female, with history of depressive disorder, history of poor self- care, with no current excessive drug use, no history of self-harming/suicidal behavior/violent behavior, with unknown history of psychiatric hospitalization, arrived via EMS alerted by fdc for depression. 83y/o mwf with h/o depression was sent from her [facility] with reports of behavioral issues and noncompliance with care. Pt reports coming in because of severe pain and was found to have an impact stoma. Pt says she can't sleep and was having difficulty participating in the assessment due to pain. She reports being upset that nobody cares. She endorsed a desire to but denied any thoughts or plans to end her life stating I'm Jew' She denied perceptual disturbances. She currently presents mildly agitated, perseverating on her poorly controlled pain, leading to feelings of depression and hopelessness. She admits to feeling depressed but adamantly denies any thoughts or plans to harm herself or anyone else. She does not meet criteria for inpatient psych at this time. Med recommendations to follow.Patient denies SI/HI, does not display signs or symptoms of serious psychosis, contracts reliably for safety, is future oriented, has reliable collateral support who confirms safety, reliably seeks help, has supportive and safe recovery environment. Patient does not appear to be at acute risk to self or others due to psychiatric illness or to require inpatient psychiatric hospitalization. Working Diagnoses:? F33.2 Major depressive disorder, recurrent severe without psychotic features Rule Out Diagnoses:? CPT Codes:?30474 - Psychiatric Diagnostic Evaluation with Medical Services PLAN Disposition:? * Discharge type: Patient does not require psychiatric hospitalization. Disposition to be determined by primary team ? Observation level ? Psychiatric 1:1 needed??No psych 1:1 needed Work-up:? Pharmacological:? * 1. Increase Depakote to 250mg po q am and 500mg poq hs 2. Taper off Trazodone 50mg po qhs for 3 days then 25mg po qha for 4 days then stop 3. continue Cymbalta 60mg po qd 4. Melatonin 3mg after dinner 5. Seroquel 12.5mg po bid prn agitation (Hold if QTC over 500) * Is patient psychotic? - No; * Informed consent: Discussed risks and benefits of the above recommended psychiatric medications with patient, who demonstrated understanding and gave express informed consent to take the above medications as documented. Follow up needed while in the hospital??none Other:? * Discussed benefits of sleep, exercise, and meditation for anxiety/depression * GENERAL GERIATRIC PRECAUTIONS: frequent re-orientation, family contact when possible, maximize uninterrupted periods of sleep, limit staff changes as feasible. Provide patient with assistive devices ie hearing aids/glasses to reduce confusion and disorientation. * Dementia/Delirium: AVOID BENZODIAZEPINES, ANTICHOLINERGICS, ANTIHISTAMINES, AND OTHER SEDATING MEDICATIONS, which may PRECIPITATE and worsen delirium * Please obtain baseline EKG to monitor for QTc prolongation, cardiac arrhythmias, and torsades de pointes. Would maintain potassium above 4.0 and magnesium above 2.0 * If questions arise about the psychiatric care of this patient, please call the [facility]?to request a follow-up consult. ?Please do not contact me individually through the EMR chat as I am not?regularly logged on to?this system. 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 Patient consented to proceed with the telehealth visit. Requested by:?Alisia Snyder MD, Sources of information:?Patient, medical record History of Present Illness:? 83-year-old female, living in assisted living, , retired, with history of depressive disorder, history of poor self-care, with no current excessive drug use, no history of self-harming/suicidal behavior/violent behavior, with unknown history of psychiatric hospitalization, arrived via EMS alerted by fdc for depression. UDS not ordered, Alcohol not ordered. In the hospital, patient has been in behavioral control with no reported issues. On psychiatric evaluation, patient is evasive. Pt is a 83y/o mwf with h/o depression and dementia sent from her intermediate with reports of behavioral issues, throwing herself on the floor. Pt says she is in horrible pain and would like to it hurts so bad but denies suicidal thoughts stating I'm oriental orthodox she c/o inability to sleep because she is in such pain. She denies hallucinations and said she is making herself eat. She was writhing in pain, stating nobody cares. She was unable to provide any further history.. Collateral Contacted No-- no acute safety issues identified. PSYCHIATRIC REVIEW OF SYSTEMS (symptoms in past two weeks) Pertinent Positives:?depressed mood/anhedonia/hopelessness/insomnia/anergia/irritability/agitation Pertinent Negatives:?no aggressive behavior PSYCHIATRIC HISTORY Past Psychiatric Diagnoses/Problems:?depressive disorder Psychiatric Treatment:?Hospitalizations:?unknown past psychiatric hospitalizations ???Other Past treatment:?therapy ???Current treatment:?medication management; treatment non-adherent Drug/Alcohol History ???Current excessive drug/alcohol use:?none ???Past excessive drug/alcohol use:?none ???Drug/alcohol use comment:?Treatment:?none ???Withdrawal symptoms:?none ???UDS results:?UDS not ordered ???BAL results:?not ordered ???Active withdrawal Protocol:? Stressors:?chronic physical pain, medical comorbidity, neurocognitive dysfunction Trauma:?unknown Family Psychiatric History:?substance abuse, brother and son abused alcohol HEALTH HISTORY Medical Problems:? hypertension, GERD, cardiovascular disease, RIZWAN, severe chronic pain Is patient linked with PCP??yes Psychiatric and other clinically relevant medications:?cymbalta 40mg po qd Seroquel 25mg po qd Depakote 500mg po qhs Melatonin 3mg po qhs Trazodone 100mg po qhs Allergies/Adverse Medication Reactions:?banana Allergy Intermediate Other (See Verified 03/20/24 05:00 Comment) cucumber Allergy Intermediate Other (See Verified 03/20/24 05:00 Comment) Iodinated Contrast Media Allergy Intermediate Anaphylaxis Unverified 03/20/24 05:00 chloramphenicol AdvReac Severe KIDNEY Verified 03/20/24 05:00 FAILURE tetracycline AdvReac Severe KIDNEY Verified 03/20/24 05:00 FAILURE melon AdvReac Intermediate Cantaloupe-Abd Verified 03/20/24 05:00 pain, diarrhea donepezil AdvReac Cardiac Unverified 03/20/24 05:00 Dysrhythmia ADHESIVE TAPE Allergy Intermediate takes skin Uncoded 03/20/24 05:00 off SUTURE MATERIAL Allergy Intermediate Purluent Uncoded 03/20/24 05:00 Drainage Physical Findings:?no clinically significant changes in vital signs, no clinically significant abnormal lab values, QTc unavailable DEMOGRAPHICS/SOCIAL HISTORY Gender:?female Living Situation:?living in assisted living Relationship Status:? Education:?unable to assess Employment:?retired Social Support Network:?unknown Legal History:?none Special Considerations:? RISK EVALUATION Suicidality/self-injury:?no history of suicidal/self-harming behavior Primary Suicide Screening (PSS-3) 1. In the past two weeks, have you felt down, depressed, or hopeless??YES 2. In the past two weeks, have you had thoughts of killing yourself??NO 3. In your lifetime, have you ever attempted to kill yourself??NO 3a. Within the past 6 months??NO ESS-6 Secondary Screen ( If #2 is yes or #3a is yes within the past 6 months, then complete secondary screen) 1. Positive on PSS-3 questions 2 & 3 ? active suicidal ideation with a past attempt??Screen not applicable 2. Have you been thinking about how you might kill yourself??Screen not applicable 3. Have you had some intention of acting on your thoughts??Screen not applicable 4. Lifetime psychiatric hospitalization??Screen not applicable 5. Has drinking or substance abuse ever been a problem for you??Screen not applicable 6. Current irritability, agitation, or aggression??Screen not applicable PSS-3/ESS-6 Secondary Screen Scoring:?Low Risk-PSS3 screen negative PSS-3/ESS-6 Scoring Interpretation Legend PSS-3 screen incomplete [Blank PSS-3 questions #2 OR #3a] PSS-3 screen unable to assess [Unable to Assess responses on PSS-3 questions #2 AND #3a] Mild [No current attempt AND No suicide plan or intent AND Score (0-2)] Moderate [No current attempt AND Active suicidal ideation with plan or intent (not both) OR Score (3-4)] Severe [Current attempt OR Suicide plan and intent OR Score (5-6)] HI/Violence/Property Destruction:?no history of violent/aggressive behavior Access to Firearms:?none Grave disability/Poor self-care:?yes medical neglect Psychosis:?No Protective Factors:?rastafarian, spiritual, or moral attitudes against suicide High Utilization Criteria:? Signs of Secondary Gain:? MENTAL STATUS EXAM Appearance and Attire:? Normal, Poor eye contact Psychomotor agitation:? Psychomotor agitation Attitude and behavior:? Guarded Speech:? Pressured Mood:? Depressed Affect:? Labile Thought Process:? Vague Thought content:? No suicidal ideation, She says she would love to but would never take her own life because she is Jew Perception:? No hallucinations Intelligence:?unable to assess Abstraction:?unable to assess Language:? No abnormality Orientation:? Oriented to person Sensorium:? Normal Knowledge:?unable to assess Memory:?unable to assess Insight:? Lack of awareness of problems, Failure to recognize benefits of treatment, Severe impairment Judgment:? Moderate impairment, Impaired in response and decision making, Impaired in self care, Impaired in treatment compliance SUMMARY RISK ASSESSMENT Current Suicide Risk Elevated??PSS-3/ESS-6 Scoring: Low Risk-PSS3 screen negative? Current Violence Risk Elevated??No Issues with ability to care for self.?Yes SAFE-T Risk Factors Suicidal Behavior:? none Current/Past Psychiatric Disorders:? Major depression Current/Past Substance Use:? chronic opiate use Bray Symptoms:? Depressed Family History Risk Factors:? unknown Precipitants/Stressors/Interpersonal/Triggers:? Chronic pain social isolation multiple medical issues Treatment:? Medication management no?Access to firearms/ammunition Protective Factors Internal:? Roman Catholic beliefs External:? spiritual beliefs against suicide ?
--- NOTE | 2024-03-31 04:23 | DI.VRAD_ITS ---
PROCEDURE INFORMATION: Exam: CT Head Without Contrast Exam date and time: 03/31/2024 3:30 AM Age: 83 years old Clinical indication: Other: Fall, lac to back of head, on ac, neurointact TECHNIQUE: Imaging protocol: Computed tomography of the head without contrast. COMPARISON: CT HEAD CERVICAL SPINE WO 03/20/2024 5:53 AM FINDINGS: Limitations: Mild motion artifact. Brain: There is a small amount of hemorrhage in the superior right frontal lobe. Left occipital encephalomalacia. No significant focal mass effect or significant midline shift. Generalized parenchymal volume loss. Chronic ischemic changes are noted. Cerebral ventricles: No disproportionate ventriculomegaly. Paranasal sinuses: No air-fluid levels seen. Mastoid air cells: No mastoid effusion. Bones: No acute cranial vault fracture seen. Soft tissues: Posterior scalp hematoma/laceration. Vasculature: Arterial calcifications. IMPRESSION: 1. Right frontal hemorrhage. 2. Nonacute findings as outlined above. 3. Additional studies dictated separately. 4. THIS REPORT CONTAINS FINDINGS THAT MAY BE CRITICAL TO PATIENT CARE. The findings were verbally communicated via telephone conference with ANDIE HERR at 4:13 AM EDT on 03/31/2024. The findings were acknowledged and understood. PROCEDURE INFORMATION: Exam: CT Cervical Spine Without Contrast Exam date and time: 03/31/2024 3:30 AM Age: 83 years old Clinical indication: Other: Fall, lac to back of head, on ac, neurointact TECHNIQUE: Imaging protocol: Computed tomography of the cervical spine without contrast. COMPARISON: CT HEAD CERVICAL SPINE WO 03/20/2024 5:53 AM FINDINGS: Limitations: Mild motion artifact. Artifact from metallic dental hardware obscures surrounding tissues. Bones: No acute cervical spine fracture identified. Multilevel degenerative changes. Reversal of the normal cervical lordosis may reflect positioning or muscle spasm; correlate clinically. Lungs: No acute findings. Lymph nodes: Bilateral cervical and mediastinal lymph nodes. Vasculature: Extensive arterial calcifications. Soft tissues: Mass again seen in the medial right subclavian region. IMPRESSION: 1. No acute cervical spine fracture seen. 2. Mass in the medial right subclavian region. Differential considerations include prominent venous confluence, lymphadenopathy, neoplasm. Evaluation limited on noncontrast examination. Follow-up as clinically warranted. 3. Additional findings as above. 4. Additional studies dictated separately. Dictated and Authenticated by: Joan Evans MD. Ordering:DARON Crump MD
[2024-03-31] MEDS: Metoprolol 5 MG/5 ML VIAL IVP (04:25)
[2024-03-31] MEDS: niCARdipine 25 MG/10 ML VIAL 10 MG IV (05:00)
--- NOTE | 2024-03-31 09:17 | DI.CT_ITS ---
Exam(s) CT HEAD WO EXAM: CT HEAD WO CLINICAL HISTORY: repeat R frontal hemmoraghe. TECHNIQUE: Imaging Protocol: Axial computed tomography images with coronal and sagittal reformatted images were created and reviewed COMPARISON: CT CT HEAD CERVICAL SPINE WO from 03/31/2024 FINDINGS: Ventricles and Extra axial spaces: Normal in size and morphology for the patient's age. Hemorrhage: The previously noted hemorrhage in the high right frontal cortex has slightly increased i n size and density. No new areas of hemorrhage. Cerebral parenchyma: No evidence of acute infarct or mass. Old left occipital infarct again noted. Midline shift: None. Brainstem/Cerebellum: Normal. Calvarium: Normal. Visualized Paranasal sinuses:Clear. Mastoids: Clear. Soft Tissues: Unremarkable. ORBITS: Unremarkable. PITUITARY: Not enlarged. IMPRESSION: Slight interval increase in size and density of previously noted right frontal parenchymal hemorrhage . Findings called to ER provider. RADIATION DOSE DELIVERED: 857.04mGy.cm Total DLP DATA REPOSITORY: All CT scans at this facility are submitted to the National Radiology Data Registry (NRDR) Dose Index Registry (DIR) with the [employer] (ACR). RADIATION OPTIMIZATION: All CT scans at this facility use at least one of these dose optimization te chniques: automated exposure control; mA and/or kV adjustment per patient size (includes targeted exa ms where dose is matched to clinical indication); or iterative reconstruction.
[2024-03-31] MEDS: fentaNYL 12 MCG PATCH TD (10:20)
[2024-03-31] MEDS: Allopurinol 100 MG TAB PO (10:23)
[2024-03-31] MEDS: Senna TAB 1 TAB PO (10:24)
[2024-03-31] MEDS: Ursodiol 300 MG CAP PO ×2 (10:24→20:40)
[2024-03-31] MEDS: Ferrous Gluconate 324 MG TAB PO ×2 (10:25→20:35)
[2024-03-31] MEDS: DULoxetine 20 MG CAP 40 MG PO (10:26)
[2024-03-31] MEDS: Memantine 5 MG TAB 10 MG PO ×2 (10:27→20:40)
[2024-03-31] MEDS: Levothyroxine 125 MCG TAB PO (10:28)
[2024-03-31] MEDS: Divalproex 250 MG TABEC PO (10:29)
[2024-03-31] MEDS: Polyethylene Glycol 3350 17 GM PACKET PO (10:32)
--- NOTE | 2024-03-31 10:43 | ED.PROG_ITS ---
Date of service: 03/31/24 Time of Service: 11:20 Medical Decision Making Care assumed from off going provider. A portion of this patient's care had taken place during EMR downtime. At the time of signout, the patient was pending a repeat CT scan and further consultation with neurosurgery. The patient presented from her assisted living facility with concerns for behavioral outburst and abdominal pain. It was thought that she was constipated and she was given medication to alleviate this. Per report, the patient was not going to be able to return to the [facility], so she was being held in the emergency department for care management reevaluation in the morning. At sometime overnight, the patient got out of her bed to go to the bathroom when she had a fall. The patient was recently admitted and diagnosed with a pulmonary embolism and was started on Eliquis at that time. An emergent head CT was obtained which did demonstrate a right frontal lobe bleed. The patient was neurologically intact, mild hypertension that was treated with IV push of medication. [address] was obtained and reviewed. Discussed with radiologist as well, it is concerning for increased size and density. I did discuss with neurosurgery at [facility] and they are also concerned that the CT does look w orse at this time. They are recommending Kcentra and vitamin K for reversal. They recommend clarifying that goals of care with the patient's family member. It is noted in her chart that she has previously been DNR/DNI. Given that she had a recent pulmonary embolism and this is the reason she is on Eliquis, they recommend consultation with cardiology to discuss restarting anticoagulation. They are recommending a repeat head CT in 12 hours (9pm). I did talk to her daughter regarding the neurosurgery recommendations. She states that if the patient did develop more catastrophic bleeding, she does not feel that surgery would improve her quality of life and therefore this would not be recommended. Medications have been ordered per neurosurgery recommendations and I have reached out to the hospitalist to admit the patient. 1330 patient accepted to for continued management. Quality:SDOH Health Related Social Needs: Health related social needs risk of homeless, transpo insecurity, personal safety Critical Care Time Critical Care Time Critical Care Time: Yes Total Critical Care Time: 38 Attestation: CRITICAL CARE Upon my evaluation, this patient had a high probability of imminent or life- threatening deterioration due to intracranial hemorrhage which required my direct attention, intervention, and personal management. I have personally provided 38 minutes of critical care time exclusive of time spent on separately billable procedures. Time includes review of laboratory data, radiology results, discussion with consultants, and monitoring for potential decompensation. Interventions were performed as documented above Sign Out Sign Out Data: Sign Out Comment: Patient with abdominal pain and constipation receiving Mag Citrate per surgery recommendations. Psychiatry consult placed due to on going behavior problems at [facility]. If cleared by psychiatry but not excepted back to [facility] will need to be referred to case management. Last updated by Attila Amado MD at 03/30/24 23:48 Discharge Plan Disposition Patient Disposition: Admit to [facility] Condition: Fair Discharge Details Chief Complaint: Abd Prob Clinical Impression: Intracranial hemorrhage, Fall, Constipation, Anticoagulated Primary Care Provider: Ariadna Trevino ED Provider: Ronan Jackson Home Meds and New Rx's Prescriptions: No Action polyethylene glycol 3350 [Miralax] 17 gram/dose powder 17 g PO DAILY PRN cyclobenzaprine 5 mg tablet 5 mg PO TID PRN (Reason: muscle spasm) Qty: 15 0RF Rx Instructions: avoid concurrent use with oxycodone monitor for sedation/fall risk, especially during initiation of medication trial allopurinol 100 mg tablet 100 mg PO DAILY famotidine [Pepcid] 40 mg tablet 40 mg PO BID Qty: 60 12RF ferrous gluconate 324 mg (38 mg iron) tablet 324 mg PO BID Qty: 60 12RF sennosides 8.6 mg tablet 8.6 mg PO DAILY naloxone 4 mg/actuation spray,non-aerosol 1 spray intranasal Q2M PRN Rx Instructions: spray 1 dose into ONE nostril; alternate nostrils w each dose until help arrives trazodone 100 mg tablet 100 mg PO QHS Qty: 30 1RF ursodiol 250 mg tablet See Rx Instructions .ROUTE .COMPLEX Qty: 60 11RF Dose Instruction: 1 TAB BY MOUTH TWICE A DAY Rx Instructions: 1 TAB BY MOUTH TWICE A DAY oxycodone 5 mg tablet 5 mg PO BID MDD 10 mg PRN (Reason: severe pain (scale score 7-10)) Qty: 30 0RF fentanyl 12 mcg/hr patch 72 hour 1 patch transdermal Q72H MDD 1 patch Qty: 10 0RF lisinopril 20 mg tablet 20 mg PO DAILY melatonin [Meladox] 3 mg tablet extended release 3 mg PO HS levothyroxine 125 mcg tablet 125 mcg PO DAILY lidocaine 5 % adhesive patch,medicated 1 patch topical DAILY Eliquis 5 mg tablet 5 mg PO BID Qty: 90 2RF Rx Instructions: start once 10mg BID dosing is completeted olanzapine 5 mg tablet 5 mg PO BID PRN Patient Comments: 5-10 mg as needed quetiapine [Seroquel] 25 mg tablet 25 mg PO DAILY divalproex 500 mg tablet extended release 24 hr 500 mg PO HS duloxetine 20 mg capsule,delayed release(DR/EC) 40 mg PO DAILY memantine 10 mg tablet 10 mg PO BID Patient Comments: Recent frequent changes to dosing and frequency. Physician updated. 03/18/24
[2024-03-31] MEDS: HUMAN PROTHROM. CMPX. 2,000 UNIT in EMPTY EVACUATED CONTAINER 1 EACH 360 UNIT IV (11:19)
[2024-03-31] MEDS: Lisinopril 10 MG TAB 20 MG PO (11:29)
[2024-03-31] MEDS: Famotidine 20 MG TAB PO ×2 (11:29→20:38)
[2024-03-31] MEDS: QUEtiapine 25 MG TAB PO (11:29)
[2024-03-31] MEDS: PHYTONADIONE 10 MG in Normal Saline 50 ML 200 MG IVPB (11:34)
[2024-03-31] MEDS: Normal Saline Flush 10 ML SYR IVP ×2 (11:35→21:50)
--- NOTE | 2024-03-31 15:02 | NUR.NOTE ---
0700: HOB remains elevated at 30* during ER stay Nursing Note:
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
--- NOTE | 2024-03-31 15:40 | W.PC.ACHO ---
Registration Status: Primary Language: Preferred Language: ED Information & Data Chief Complaint Abd Prob 03/30/24 21:00 Triage Note BIBA from [facility] for 03/30/24 19:56 increasing violent statements towards staff and other residents. Per EMS PCP has been adjusting her psych meds. Pt with bsl dementia. Pt Alert and oriented to self. Pt with colostomy with minimal output, complaining 9/10 pain lower abdominal pain. Medical / Surgical History (Last Reviewed 03/30/24 @ 20:58 by Attila Amado MD) Hypothyroidism (04/05/12) Chronic renal insufficiency, stage III (moderate) Pulmonary embolism on right Cerebral amyloid angiopathy Visual field loss Anterolisthesis of lumbar spine Multiple fractures of ribs Abdominal pain in female Alzheimer's dementia Brain bleed T12 burst fracture Compression fracture of body of thoracic vertebra Palliative care patient Perforation of colon as colonoscopy complication Tuberculosis Insomnia Raynaud's disease Excessive sweating (06/02/16) Colon polyp (06/28/18) (Last Reviewed 03/30/24 @ 20:58 by Attila Amado MD) S/P rotator cuff repair S/P BSO (bilateral salpingo-oophorectomy) S/P appendectomy S/P hysterectomy S/P kyphoplasty H/O partial resection of colon S/P tonsillectomy H/O dilation and curettage Laparoscopic, Ovarian Cystectomy EGD - MAC (~2003) Colonoscopy - MAC Most Recent Vital Signs Temperature 36.6 C 03/31/24 15:15 Temperature Source Oral 03/31/24 13:44 Pulse 62 03/31/24 14:53 Pulse Rhythm Regular 03/31/24 15:15 Pulse Strength Normal 03/31/24 02:21 Pulse 57 L 03/31/24 14:50 Respiratory Rate 17 03/31/24 14:53 Respiratory Effort Normal, Non-Labored 03/31/24 15:15 Respiratory Depth Normal 03/31/24 15:15 Respiratory Pattern Normal 03/31/24 15:15 Blood Pressure 133/99 H 03/31/24 14:53 Blood Pressure Mean 108 03/31/24 14:16 Blood Pressure Position Sitting 03/31/24 02:21 Pulse Oximetry 95 03/31/24 14:53 Oxygen Delivery Method Room Air 03/31/24 13:44 Oxygen Flow Rate 0 03/31/24 13:44 Pain Level 9 03/31/24 14:53 Allergies banana Allergy (Intermediate, Verified 03/31/24 11:51) Other (See Comment) Verification by patient self-report, not lab. Significant GI pain, diarrhea cucumber Allergy (Intermediate, Verified 03/31/24 11:51) Other (See Comment) Verified by patient self-report, not lab. Significant GI pain and diarrhea. Iodinated Contrast Media Allergy (Intermediate, Unverified 03/31/24 11:51) Anaphylaxis chloramphenicol Adverse Reaction (Severe, Verified 03/31/24 11:51) KIDNEY FAILURE tetracycline Adverse Reaction (Severe, Verified 03/31/24 11:51) KIDNEY FAILURE melon Adverse Reaction (Intermediate, Verified 03/31/24 11:51) Cantaloupe-Abd pain, diarrhea donepezil Adverse Reaction (Unverified 03/31/24 11:51) Cardiac Dysrhythmia Neurology recommends against starting this due to prolonged QTc ADHESIVE TAPE Allergy (Intermediate, Uncoded 03/31/24 11:51) takes skin off SUTURE MATERIAL Allergy (Intermediate, Uncoded 03/31/24 11:51) Purluent Drainage Precautions Isolation Standard precaution 03/30/24 20:04 Active Medications Generic Name Dose Route Start Last Admin Trade Name Freq PRN Reason Stop Dose Admin Allopurinol 100 mg 03/31/24 08:30 03/31/24 10:23 Allopurinol 100 Mg Tab PO 100 mg DAILY MONIQUE Administration Apixaban 5 mg 03/31/24 08:30 03/31/24 08:54 Apixaban 5 Mg Tab PO Not Given BID MONIQUE Divalproex Sodium 250 mg 03/31/24 08:30 03/31/24 10:29 Divalproex 250 Mg Tabec PO 250 mg DAILY MONIQUE Administration Duloxetine HCl 40 mg 03/31/24 10:00 03/31/24 10:26 Duloxetine 20 Mg Cap PO 40 mg DAILY MONIQUE Administration Famotidine 20 mg 03/31/24 10:00 03/31/24 11:29 Famotidine 20 Mg Tab PO 20 mg BID MONIQUE Administration Fentanyl 12 mcg 03/30/24 10:00 03/31/24 10:20 Fentanyl 12 Mcg Patch TD 12 mcg Q72H MONIQUE Administration Ferrous Gluconate 324 mg 03/31/24 08:30 03/31/24 10:25 Ferrous Gluconate 324 Mg Tab PO 324 mg BID MONIQUE Administration Levothyroxine Sodium 125 mcg 03/31/24 10:00 03/31/24 10:28 Levothyroxine 125 Mcg Tab PO 125 mcg DAILY@0600 MONIQUE Administration Lidocaine/Epinephrine 20 ml 03/31/24 03:15 03/31/24 03:15 Lidocaine 2% Multi-Dose W/Epi 1/100,000 20ml Vial IJ 6 ml DIRECTED MONIQUE Administration Lisinopril 20 mg 03/31/24 10:00 03/31/24 11:29 Lisinopril 10 Mg Tab PO 20 mg DAILY MONIQUE Administration Memantine 10 mg 03/31/24 08:30 03/31/24 10:27 Memantine 5 Mg Tab PO 10 mg BID MONIQUE Administration Polyethylene Glycol 17 gm 03/31/24 10:00 03/31/24 10:32 Polyethylene Glycol 3350 17 Gm Packet PO 17 gm DAILY MONIQUE Administration Quetiapine Fumarate 25 mg 03/31/24 08:30 03/31/24 11:29 Quetiapine 25 Mg Tab PO 25 mg DAILY MONIQUE Administration Sennosides 1 tab 03/31/24 10:00 03/31/24 10:24 Senna Tab PO 1 tab DAILY MONIQUE Administration Sodium Chloride 0 ml 03/31/24 08:30 03/31/24 11:35 Normal Saline Flush 10 Ml Syr IVP 10 ml BID MONIQUE Administration Ursodiol 300 mg 03/31/24 10:00 03/31/24 10:24 Ursodiol 300 Mg Cap PO 300 mg BID MONIQUE Administration IV IV Catheter Type [Right Peripheral IV Antecubital] IV Catheter Gauge [Right 18 Antecubital] Diagnostics 03/30/24 03/30/24 Range/Units 21:52 20:20 WBC 6.53 (4.4-10.8) 10^3/uL RBC 3.25 L (3.93-5.22) 10^6/uL Hgb 9.1 L (11.2-15.7) g/dL Hct 29.9 L (36.0-46.0) % MCV 92 (80-95) fL MCH 28.0 (27.0-33.0) pg MCHC 30.4 L (32.0-36.0) % RDW 16.2 H (11.7-14.6) % Plt Count 231 (130-400) 10^3/uL MPV 10.0 (8.0-11.0) fL Immature Gran % 0.3 % Neutrophils % 65.9 % Lymphocytes % 20.8 % Monocytes % 9.8 % Eosinophils % 2.9 % Basophils % 0.3 % Nucleated RBC % 0.0 (0.0-0.3) % Absolute Neutrophils 4.30 (1.2-6.7) 10^3/uL Absolute Lymphocytes 1.36 (1.2-3.4) 10^3/uL Absolute Monocytes 0.64 (0.1-0.8) 10^3/uL Absolute Eosinophils 0.19 (0.0-0.7) 10^3/uL Absolute Basophils 0.02 (0.0-0.2) 10^3/uL Sodium 138 (136-145) mmol/L Potassium 3.7 (3.5-5.1) mmol/L Chloride 102 (98-107) mmol/L Carbon Dioxide 30.3 (21.0-32.0) mmol/L Anion Gap 5.7 (3-11) mmol/L BUN 18 (7-18) mg/dL Creatinine 1.6 H (0.55-1.02) mg/dL Est GFR (CKD-EPI 2020) 32.00 (mL/min/1.73m2) Glucose 114 H (74-106) mg/dL Calcium 9.3 (8.5-10.1) mg/dL Magnesium 2.1 (1.8-2.4) mg/dL Total Bilirubin 0.21 (0.2-1.0) mg/dL AST 10 L (15-37) U/L ALT 12 L (14-59) U/L Alkaline Phosphatase 98 (46-116) U/L Total Protein 7.5 (6.4-8.2) g/dL Albumin 3.0 L (3.4-5.0) g/dL Urine Color Yellow (Yellow) Urine Clarity Sl Cloudy (Clear) Urine pH 6.0 (5-8) Ur Specific Hal[place] 1.015 (1.005-1.025) Urine Protein Negative (Neg-Trace) mg/dL Urine Ketones Negative (Negative) mg/dL Urine Blood Trace-intact H (Negative) Urine Nitrite Negative (Negative) Urine Bilirubin Negative (Negative) Urine Urobilinogen 0.2 (Up to 0.2) mg/dL Ur Leukocyte Esterase Small H (Negative) Urine RBC 0-2 (0-2) HPF Urine WBC 20-50 H (0-5) HPF Ur Epithelial Cells Many (Negative) HPF Urine Crystals Negative (Negative) HPF Urine Bacteria Few (Negative) HPF Urine Casts Negative (Negative) LPF Urine Mucus Negative (Negative) Urine Other Rare Renal (Negative) Ur Culture Indicated? No/Sq. Contamination Urine Glucose Negative (Negative) mg/dL Intake and Output - 24 Hour Total 03/30/24 19:46 thru 03/31/24 11:50 Intake Total 1241 Balance 1241 Weight 72 kg Intake: IV 1241 Falls Risk Assessment History of Falls Fall During Stay 03/31/24 15:15 Contributing Factors Confusion,Impairments, 03/31/24 15:15 Incontinence Ambulatory Aids Uses ambulatory device 03/31/24 15:15 Tubes/Lines W/no contributing factors 03/31/24 15:15 Gait Evaluation W/any additional score 03/31/24 15:15 Cognition Cognitive impairment 03/31/24 15:15 Fall Total Score 94 03/31/24 15:15 Level of Risk Maximum Risk 03/31/24 15:15 Notes 03/31/24 15:02 Nursing Notes by Cristina Campbell [id number]: HOB remains elevated at 30* during ER stay Nursing Note: Initialized on 03/31/24 15:02 - END OF NOTE v v v v v v v v v Sending and/or Receiving Nurses: Please use comment section below to note any information pertinent to the patient hand-off not included above. Information / Comments: Report received from: Radha BRIGHT RN at approx [phone]. JIM RN
--- NOTE | 2024-03-31 15:56 | PCNE_ITS ---
Date of service: 03/31/24 Time of Service: 15:56 History of Present Illness Narrative: Ms. 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 Palliative Care team members have met with patient and family several times over the last 5 years. Family decided to place her in assisted living after she became combative and verbally abusive with her She was moved to [facility] in July 2023. Since her move to , Rita Stewart and I have been engagaed with [facility] discussions, discussing code status with health care agent, symptom management (sleep, pain, Palliative Care had been managing and prescribing fentanyl patch) and providing additional support to family. I was scheduled to see her today at [facility] for routine PC followup. However, yesterday evening she became combative and was brought to the ED for evaluation. While there, she fell and incurred a small frontal lobe hemorrhage. 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 History today from hospital chart, phone call with arnoldo Atkinson, discussion with hospitalist present today Dr. Mott, discussion with nurse Riojas from [facility], case management Updates: -She had acute inpatient admission03/20-09/2023: brought to ED after unwitnessed fall. She was dxed with acute PE. She was sent home on DOAC, as risk of PE felt to outweigh risk of bleeding from her known frequent falls. -Patient's 6 weeks ago. According to staff, he did not want to see her but would often come to the door of the facility to drop things off or asked how his was doing. Arnoldo Atkinson confirms that patient and her never met [id number] or talked after she left the home. She says that her father was scared that if he visited her, she would insist that he take her back home and he knew this would not be good for her. I think he of a broken heart . China explains that her mother Amanda was always the person in charge and the couple and would do what ever she wanted him to do. -Ms. Manuel is usually quiet and cooperative when I see her. However she reportedly has these acute episodes of agitation associated with both verbal aggression, occasionally pushing people, cursing. It is these episodes which prompted her family to decide that she needed placement in assisted living. She continues to have these episodes intermittently at [facility]. According to China, these episodes seemed to increase starting in mid February. Note that this was shortly after patient's . China thinks she did not understand that he had when she initially told her mom. She initially seemed to think that China was telling her that Amanda's dad had . China thinks that Sometime in mid February Amanda began to understand that it was Matt who had . Unfortunately, at this point China was in [place] on a long planned vacation and not available to visit. (China usually came to visit about every 2 weeks, patient's other 2 daughters who live farther away came less often). China describes these episodes of increased agitation: Amanda told folks that she needed to call the police, that the kids were in danger , that there is a bomb in here . When these episodes happen, Amanda felt there was a danger in the building and she needed to get everybody out. She would pull the fire alarm, [place] in the hallway (sometimes in the middle the night). Yesterday afternoon she got on the elevator, push the alarm and use the emergency phone to call the police. -She last met with neurology October 2023. -PCP has been working on adjusting medications to help with the agitation. Since China was out of town for most of the preceding several weeks, she is not sure when medications were adjusted and if they were initially helpful. Care Team: Primary Care physician: Ariadna Trevino SOFTWARE ENGINEER [employer]PLICATION[facility] at [facility] (notes not available to me) Neurology: Ashley Potter Social HX: Living at [facility] since July 2023. Marital Status: Jason Late January (^ weeks). Daughter China thinks that she is just beginning to understand this. 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 Children:3 daughters alive and one son . Daughter China Benitez is primary healthcare agent and also relative who is listed first on contact. Ayesha ([place]), Kadi ([place]) Hobbies: I used to have a lot . Currently enjoys watching TV Assessment and Plan Assessment and plan (1) Intracranial hemorrhage: Status: Acute Assessment and plan: Patient with mixed dementia due to come donation of cerebral amyloid angiography with resulting hemorrhagic strokes. Now with fall with small frontal lobe intracranial hemorrhage. Unfortunately, her intermittent episodes of agitation have become more frequent and worsened over the last 6 weeks. There is possibility that grief over her 's may be contributing. Her impulsive Behaviors and a sharp contrast in her demeanor between her usual, pleasant demeanor and her agitated episodes are striking. Her determination to crawl out of bed despite my reassurance and pleas to let me help her was quite unusual. There may be an element of delirium due to her intracranial injury, but it does sound similar to what family and caregivers have described in the past. #Goals of care: Given that patient is not even oriented to her location and her tangentiality, I did not feel she had capacity to engage in goals of care discussion today. In the past Ms. Manuel and I have had several discussions regarding CODE STATUS. She is always been unequivocal that she did not want CPR or to be intubated. She has said in the past that she wants to be evaluated and treated in the hospital as needed, receive IV antibiotics and IV fluids. I did revisit goals of care and COLST with arnoldo Atkinson (also designated healthcare agent). -Her goal is to keep her mother as comfortable and safe as possible. -She realizes that her mom probably needs to be on a special unit due to her behaviors. However she wished that her mom could return to [facility] while a more appropriate placement could be found. -Several weeks ago, [facility] brought out prospect of having patient spent time at [facility] to see if they could adjust her medications and reduce episodes of agitation. China thought (and still thinks) that this would be an excellent idea. However, either [facility] did not send referral or [facility] never received the referral. -China and her sisters now hope that ultimately they will move Ms. Manuel to a fdc facility near to where China lives in [place]. This would allow China to be much closer to her mother and visit her more frequently. China discussed this with case management team earlier today and is aware that They anticipate it will be quite difficult to find appropriate ELLY/SNF placement for Pat anywhere ([place] or [place]). -ER doctor and hospitalist spoke with China about whether they thought her mom would want to consider neurosurgery if intracranial bleeding worsened and neurosurgery was an option to try and improve neurological outcome. China feels that her mom could not tolerate surgery and if things were that bad, even with surgery she would not be able to regain her previous level of functioning. China would not consider neurosurgery if offered that option. When it was pretty clear uncertain about this. Plan: -Once patient is medically stable, China would consent to a stay at [facility] to see if A medication combination could be found to decrease episodes of agitation. -Physical therapy is not usually provided at [facility]. So family and medical team will need to weigh the benefit of Pat going to [facility] against potential benefit of subacute rehabilitative therapy to help Pat recover from the intracranial hemorrhage. Family and hospital team will get better information on how to answer this question as they follow Amanda's clinical course over the next few days to week. -Palliative care team will plan to meet with patient and family next week if she is still inpatient or living in [facility] to continue goals of care discussion. Please call palliative care office to request return visit on April 01 if you would like us to see her at that time. #Caregiver stress: -China is grieving her father's recent in addition to continuing to be both DPOA and healthcare agent for her mother. She works 2 jobs. She drives to [place] frequently to see her mom. She is feeling overwhelmed. -She cannot identify anybody else in the family who could help her support her mom. Her 2 sisters live far away and have never been involved that she is and she does not think they are able to help any more than they already do. I wondered if her sisters could play a role in supporting her and listening to her rather than directly helping her mom. -She identifies having her mom move closer to her as being most helpful thing that could happen. This is possible now that her dad has . -Supportive counseling today. Empathetic listening. - Palliative Care Team will follow-up with China and her mom next week. (2) Alzheimer dementia with psychotic disturbance: Status: Acute Qualifiers: Alzheimer's disease onset: late onset Dementia severity: severe Q ualified Code(s): G30.1 - Alzheimer's disease with late onset; F02.C2 - Dementia in other diseases classified elsewhere, severe, with psychotic disturbance (3) Recurrent falls: Status: Acute (4) Counseling regarding advance care planning and goals of care: Status: Acute (5) Palliative care patient: Status: Acute (6) Cerebral amyloid angiopathy: Status: Acute [facility] All Active Problems (Updated 03/31/24 @ 21:42 by Shelbi Johnson MD) Cerebral amyloid angiopathy (Acute) -2020: possible diagnosis re:brain MRI/ followed by [place] [facility] [place].Anthony Avalos Scalp laceration (Acute) Anticoagulated (Acute) Constipation (Acute) Fall (Acute) Intracranial hemorrhage (Acute) Recurrent falls (Acute) Alzheimer dementia with psychotic disturbance (Acute) Fall (Acute) Altered mental status (Acute) Osteoarthritis of spine with radiculopathy, lumbar region (Acute) Bladder diverticulum (Acute) Coronary artery calcification seen on CAT scan (Acute) Pancolonic diverticulosis (Acute) Gallstones (Acute) DNR (do not resuscitate) (Acute) See 10/15/2023 COLST: DNI/DNR, + transfer and treat Current chronic use of systemic steroids (Acute) Counseling regarding advance care planning and goals of care (Acute) Palliative care patient (Acute) Abdominal pain (Acute) Callosity (Acute) Nail dystrophy (Acute) Toe pain, left (Acute) Toe pain, right (Acute) Multiple fractures of ribs of right side (Acute) Colostomy status (Chronic) Anterolisthesis of lumbosacral spine (Chronic) Abd/CT 03/2022 Mild degenerative anterolisthesis L5 upon S1 noted as well as vacuum phenomena within the L5-S1 disc space which was not previously present. 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 Patient aware that there is higher than recommended dose. Makes informed decision, drug contract with [facility] Chronic pain syndrome (Chronic) Due to chronic back pain, 08/2021-drug contract at [facility], V PMS review,11/2021-urine drug screen Using oxycodone for pain mgmt when taking a shower. 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 She did see surgery down at in 2022. This is a large extensive surgery and they did not think she was a good surgical candidate due to her frailty. GERD (gastroesophageal reflux disease) (Chronic) Urethral caruncle (Chronic) dx by [facility] Gout (Chronic) Rectovaginal fistula (Chronic) Anemia of chronic disease (Chronic) Constipation by delayed colonic transit (Chronic) Urinary retention with incomplete bladder emptying (Chronic) Adrenal insufficiency (Chronic) Iatrogenic secondary to chronic steroid use, on low-dose chronic steroid Primary osteoarthritis of left knee (Chronic 07/30/15) PMR (polymyalgia rheumatica) (Chronic 01/15/16) DX 2016 : /curtis resp. to Prednisone Osteoporosis (Chronic) Bone density scan : 11/2021, managed by [facility], on prolia Obstructive sleep apnea syndrome (Chronic) after closed head injury pt not using CPAP machine Non-alcoholic fatty liver disease (Chronic) persistent elevated AST echo. : hepatic steatosis Memory impairment (Chronic 06/18/94) H/O closed head injury w/ result in memory difficulties, word findig problems Depressive disorder (Chronic) Benign paroxysmal positional vertigo (Chronic) after closed head injury Medical History Hypothyroidism (04/05/12) Chronic renal insufficiency, stage III (moderate) Pulmonary embolism on right Cerebral amyloid angiopathy : possible diagnosis re:brain MRI/ followed by Neuro [facility] [place].Anthony Avalos Visual field loss Anterolisthesis of lumbar spine Multiple fractures of ribs Abdominal pain in female Alzheimer's dementia Brain bleed 05/2021 tx at [facility], intra parenchymal left-sided hemorrhage-treated through [facility] September 2023, new hemorrhagic stroke felt to be secondary to CAA, see ED notes T12 burst fracture Compression fracture of body of thoracic vertebra Palliative care patient Perforation of colon as colonoscopy complication Tuberculosis Insomnia Raynaud's disease Excessive sweating (06/02/16) daytime sweating if >74 degrees/ fatigue normal cbc, spep,echocardiogram,sed.rate,cmp Colon polyp (06/28/18) adenoma colon pollyps-1997; none on subsequent colonoscopies; most recent c- scope in 2005 was normal 2017-adenoma Surgical History S/P rotator cuff repair S/P BSO (bilateral salpingo-oophorectomy) S/P appendectomy S/P hysterectomy S/P kyphoplasty H/O partial resection of colon Sigmoid colon resection 06/28/18 S/P tonsillectomy H/O dilation and curettage Laparoscopic, Ovarian Cystectomy B/L EGD - [facility] (~2003) MILD EROSIVE ESOPHAGITIS, NO PINON'S ON BIOPSY Colonoscopy - [facility] ADENOMA COLON POLYPS 1997, NONE ON MULTIPLE SUBSEQUENT COLONOSCOPIES, MOST RECENT C-SCOPE 2005 WAS NORMAL, 2018 - cecal polyp, diverticulosis Family History Mother , in her 80s from pneumonia Heart disease Pneumonia Father , from complications of prostate surgery in his 80s Stroke Personal history of malignant neoplasm Heart disease Brother , aged 68 Alcohol abuse Cirrhosis with alcoholism Grandfather Essential hypertension Heart disease Grandmother Personal history of malignant neoplasm Stroke Grandmother Personal history of malignant neoplasm Son , from his drinking/SA; her oldest child Alcohol abuse Social History Smoking/Tobacco Use Status: Former Tobacco Use Smoking risk assessment performed?: Yes Alcohol Intake: current Alcohol Intake frequency: holidays/special occasions only Alcohol type: hard liquor Details: HOLIDAYS AND SPECIAL OCCASIONS ONLY Drug use: Never Substance use type: does not use Counseling given: No Household members: other Details: 2 Housing: assisted living facility Do you feel safe at home: No Do you feel safe in your relationship?: No Additional Social history: h/o unsafe relationship with Now live alone at [facility] assisted living in [facility]. Daughter in [place], near where the patient grew up. No other family close History History 2 6 Para 3 Hx # Term Pregnancies 3 Multiple births Hx # Pregnancies Ectopic pregnancies AB induced Hx Number of Living Children 3 AB spontaneous Exam Narrative Exam Narrative: I met with patient in her room at approximately 4 PM about an hour after she was transferred up from spending the night in the emergency room. She is quite awake and alert. She is quite talkative and responds to questions, although answers are often either inappropriate or tangential. When I get there she is working hard to climb over the bed rails on the left side of her bed I have to get out of here and sit up . She does not seem to notice that the bed rails are down on the right side of her bed. When I ask her to stop climbing over the rails and assure her that I will help her, she says: Nope, I need to sit up, And then tries to push me aside. With the assistance of 2 nurses, we are able to redirect her. Her goal is to sit up. With lots of coaxing and reassurance, she agrees to lay flat so we can pull her up and then sit her up. A food tray is placed in front of her and she avidly begins eating her mashed potatoes without difficulty or coughing. Although fork is in front of her on the tray, she starts eating with her fingers. When I handed her fork, she is able to use it without difficulty. She places the fork back on the tray and then is unable to located again. Likewise she seems unable to see 2 Tylenol pills that nurse is trying to give her. Unclear if she has a visual field defect or hemineglect. There may also be an issue with shifting of attention. Dried blood around her occiput. Several maame in this area but no active bleeding. Area is tender. Orientation: I am in my house . Told that she is in the hospital. Asked again several minutes later where she is. I am in my house . Tells me that she has 3 daughters and that China was here but just left to go home. Unable to tell me why she is in the hospital or what happened to her. Most answers are tangential. Not oriented to day, date, year. Results Last Vital Signs Temp 36.6 C 03/31/24 15:15 Pulse 62 03/31/24 14:53 Resp 17 03/31/24 14:53 BP 133/99 H 03/31/24 14:53 Pulse Ox 95 03/31/24 14:53 Labs 03/30/24 20:20 03/30/24 20:20 Labs: Laboratory Results - last 24 hr 03/30/24 03/30/24 20:20 21:52 WBC 6.53 RBC 3.25 L Hgb 9.1 L Hct 29.9 L MCV 92 MCH 28.0 MCHC 30.4 L RDW 16.2 H Plt Count 231 MPV 10.0 Immature Gran % 0.3 Neutrophils % 65.9 Lymphocytes % 20.8 Monocytes % 9.8 Eosinophils % 2.9 Basophils % 0.3 Nucleated RBC % 0.0 Absolute Neutrophils 4.30 Absolute Lymphocytes 1.36 Absolute Monocytes 0.64 Absolute Eosinophils 0.19 Absolute Basophils 0.02 Sodium 138 Potassium 3.7 Chloride 102 Carbon Dioxide 30.3 Anion Gap 5.7 BUN 18 Creatinine 1.6 H Est GFR (CKD-EPI 2020) 32.00 Glucose 114 H Calcium 9.3 Magnesium 2.1 Total Bilirubin 0.21 AST 10 L ALT 12 L Alkaline Phosphatase 98 Total Protein 7.5 Albumin 3.0 L Urine Color Yellow Urine Clarity Sl Cloudy Urine pH 6.0 Ur Specific [place] 1.015 Urine Protein Negative Urine Ketones Negative Urine Blood Trace-intact H Urine Nitrite Negative Urine Bilirubin Negative Urine Urobilinogen 0.2 Ur Leukocyte Esterase Small H Urine RBC 0-2 Urine WBC 20-50 H Ur Epithelial Cells Many Urine Crystals Negative Urine Bacteria Few Urine Casts Negative Urine Mucus Negative Urine Other Rare Renal Ur Culture Indicated? No/Sq. Contamination Urine Glucose Negative Time Spent Time Spent with Patient Time Spent(min): 90
[2024-03-31] MEDS: Acetaminophen 325 MG TAB PO (17:03)
[2024-03-31] MEDS: Divalproex 250 MG TABEC 500 MG PO (20:36)
[2024-03-31] MEDS: traZODone 50 MG TAB 100 MG PO (20:39)
[2024-03-31] MEDS: Melatonin 3 MG TAB PO (20:40)
[2024-03-31] MEDS: LORazepam 2 MG/ML VIAL 1 MG IVP (20:59)
--- NOTE | 2024-03-31 21:00 | DI.CT_ITS ---
Exam(s) CT HEAD WO EXAM: CT HEAD WO CLINICAL HISTORY: follow up cerebral hemorrhage. TECHNIQUE: Imaging Protocol: Axial computed tomography images with coronal and sagittal reformatted images were created and reviewed COMPARISON: CT CT HEAD WO from 03/31/2024 FINDINGS: Ventricles and Extra axial spaces: Normal in size and morphology for the patient's age. Hemorrhage: Mild interval increase in size of previously noted hemorrhage in the high right frontal c ortex, now measuring 11 by 8 millimeters in size. No new areas of hemorrhage. Cerebral parenchyma: No evidence of acute infarct or mass. White matter changes of small vessel dis ease. Minimal atrophy. Midline shift: None. Brainstem/Cerebellum: Normal. Calvarium: Normal. Visualized Paranasal sinuses:Clear. Mastoids: Clear. Soft Tissues: Skin maame again noted posteriorly. ORBITS: Unremarkable. PITUITARY: Not enlarged. IMPRESSION: Slight interval increase in size of previously noted right frontal parenchymal hemorrhage. RADIATION DOSE DELIVERED: 1,280.49mGy.cm Total DLP DATA REPOSITORY: All CT scans at this facility are submitted to the National Radiology Data Registry (NRDR) Dose Index Registry (DIR) with the [employer] (ACR). RADIATION OPTIMIZATION: All CT scans at this facility use at least one of these dose optimization te chniques: automated exposure control; mA and/or kV adjustment per patient size (includes targeted exa ms where dose is matched to clinical indication); or iterative reconstruction.
--- NOTE | 2024-03-31 21:40 | DI.VRAD_ITS ---
PROCEDURE INFORMATION: Exam: CT Head Without Contrast Exam date and time: 03/31/2024 9:19 PM Age: 83 years old Clinical indication: Other: Follow up cerebral hemorrhage TECHNIQUE: Imaging protocol: Computed tomography of the head without contrast. COMPARISON: CT HEAD WO 03/31/2024 9:11 AM FINDINGS: Brain: A previously seen area frontal lobe contusion is again noted, unchanged. It measures no greater than 9 mm in maximum diameter. No new areas of hemorrhage are identified. There are no extra-axial collections seen. Cortical volume loss is unchanged. Ventricles remain prominent in size and midline in location, possible NPH. Scattered and coalescent areas of decreased attenuation are seen deep periventricular white matter, presumed small vessel ischemic change. Cerebral ventricles: See Brain finding. Paranasal sinuses: Visualized sinuses are unremarkable. No fluid levels. Mastoid air cells: Visualized mastoid air cells are well aerated. Bones: Unremarkable. No acute fracture. Soft tissues: Unremarkable. IMPRESSION: Right frontal parenchymal hemorrhage, stable. Senescent changes again noted. Dictated and Authenticated by: Luzmaria Wagner MD. Ordering:[facility] Pantera Mason MD
--- NOTE | 2024-04-01 | DI.US_ITS ---
Exam(s) US EXTREMITY VENOUS BI EXAM: US EXTREMITY VENOUS BI CLINICAL HISTORY: recent PE, evaluate for DVT. TECHNIQUE: Bilateral lower extremity venous ultrasound performed using grayscale, color-flow, and sp ectral Doppler analysis. COMPARISON: No exams were available for comparison FINDINGS: The bilateral common femoral, femoral and popliteal veins demonstrate normal compressibility, augment ation, and color Doppler. The peroneal and posterior tibial veins are patent. IMPRESSION: Right: Negative for DVT Left: Negative for DVT DATA REPOSITORY:
--- NOTE | 2024-04-01 01:58 | NUR.NOTE ---
Straight Cath Note: Myself and Aide Donahue LPN. Straight cath was performed pt positioned supine, sterile gloves placed, sofi area cleansed with Chlorahexadine due to iodine allergy with contrast. a sterile strait cath was used, which dwell time in the bladder was approximately 5 minutes. 550ml of urine out put, this urine was used to send a sterile urine sample which was ordered. Nursing Note:
[2024-04-01 02:53] LABS: Bilirubin Negative (Negative); Blood Small (Negative); Clarity Sl Cloudy (Clear); Glucose Negative (Negative); Ketones Negative (Negative); Leukocyte Esterase Large (Negative); Nitrite Negative (Negative); Specific Gravity 1.025 (1.005-1.025); Urobilinogen 0.2 mg/dL (Up to 0.2); pH 7.5 (5-8)
[2024-04-01 02:58] LABS: Bacteria Moderate HPF (Negative); C & S Indicated? Yes; Casts Negative LPF (Negative); Crystals Negative HPF (Negative); Epithelial Cells Few HPF (Negative); Mucus Negative (Negative); WBC >50 HPF (0-5)
[2024-04-01 05:35] VITALS: BP 121/48; PULSE 57; RESP 16; TEMP 36.9; O2SAT 93
[2024-04-01] MEDS: Acetaminophen 325 MG TAB PO ×3 (05:45→23:04)
[2024-04-01] MEDS: Levothyroxine 125 MCG TAB PO (05:45)
[2024-04-01 06:18] LABS: Abs Immature Grans 0.02 10^3/uL (0.0-0.06); Absolute Basophil Count 0.02 10^3/uL (0.0-0.2); Absolute Monocyte Count 0.58 10^3/uL (0.1-0.8); Absolute Neutrophil Count 5.47 10^3/uL (1.2-6.7); Basophils % 0.3 %; Eosinophils % 3.9 %; HCT 27.4 % (36.0-46.0); HGB 8.7 g/dL (11.2-15.7); Immature Grans % 0.3 %; MCH 28.5 pg (27.0-33.0); MCHC 31.8 % (32.0-36.0); MCV 90 fL (80-95); MPV 11.8 fL (8.0-11.0); Monocytes % 7.4 %; Neutrophils % 70.1 %; Platelet Count 216 10^3/uL (130-400); RBC 3.05 10^6/uL (3.93-5.22); RDW 16.6 % (11.7-14.6); RDW-SD 54.4 fL; WBC 7.79 10^3/uL (4.4-10.8)
[2024-04-01 07:04] VITALS: BP 107/38; PULSE 58; RESP 16; TEMP 36.6; O2SAT 91
[2024-04-01 07:27] LABS: Anion Gap 4.7 mmol/L (3-11); BUN 18 mg/dL (7-18); CO2 30.3 mmol/L (21.0-32.0); CREATININE 1.5 mg/dL (0.55-1.02); Calcium 8.5 mg/dL (8.5-10.1); Chloride 104 mmol/L (98-107); Estimated GFR 34.58 (mL/min/1.73m2); Glucose 91 mg/dL (74-106); Potassium 4.7 mmol/L (3.5-5.1); Sodium 139 mmol/L (136-145)
[2024-04-01] MEDS: Memantine 5 MG TAB 10 MG PO ×2 (07:52→20:07)
[2024-04-01] MEDS: Famotidine 20 MG TAB PO ×2 (07:52→20:07)
[2024-04-01] MEDS: Ursodiol 300 MG CAP PO ×2 (07:53→20:07)
[2024-04-01] MEDS: Allopurinol 100 MG TAB PO (07:53)
[2024-04-01] MEDS: Ferrous Gluconate 324 MG TAB PO ×2 (07:53→20:07)
[2024-04-01] MEDS: DULoxetine 20 MG CAP 40 MG PO (07:53)
[2024-04-01] MEDS: Fosfomycin Tromethamine 3 GM PACKET PO (07:53)
[2024-04-01] MEDS: Polyethylene Glycol 3350 17 GM PACKET PO ×2 (07:53→20:09)
[2024-04-01] MEDS: Senna TAB 1 TAB PO (07:53)
[2024-04-01] MEDS: Psyllium PKT 1 EACH PO ×2 (07:53→20:09)
[2024-04-01] MEDS: Normal Saline Flush 10 ML SYR IVP ×3 (07:54→20:08)
[2024-04-01] MEDS: Divalproex 250 MG TABEC PO (07:55)
--- NOTE | 2024-04-01 08:00 | DI.CT_ITS ---
Exam(s) CT HEAD WO EXAM: CT HEAD WO CLINICAL HISTORY: follow up cerebral hemorrhage. TECHNIQUE: Imaging Protocol: Axial computed tomography images with coronal and sagittal reformatted images were created and reviewed COMPARISON: CT CT HEAD WO from 03/31/2024 FINDINGS: Ventricles and Extra axial spaces: Normal in size and morphology for the patient's age. Hemorrhage: Stable size of focal parenchymal hemorrhage in the high right frontal cortex. No new are as of hemorrhage. Cerebral parenchyma: No evidence of acute infarct or mass. White matter changes of small vessel dis ease. Minimal atrophy. Midline shift: None. Brainstem/Cerebellum: Normal. Calvarium: Normal. Visualized Paranasal sinuses:Clear. Mastoids: Clear. Soft Tissues: Unremarkable. ORBITS: Unremarkable. PITUITARY: Not enlarged. IMPRESSION: Stable size of small focal parenchymal hemorrhage in the high right frontal lobe. RADIATION DOSE DELIVERED: 870.49mGy.cm Total DLP DATA REPOSITORY: All CT scans at this facility are submitted to the National Radiology Data Registry (NRDR) Dose Index Registry (DIR) with the [employer] (ACR). RADIATION OPTIMIZATION: All CT scans at this facility use at least one of these dose optimization te chniques: automated exposure control; mA and/or kV adjustment per patient size (includes targeted exa ms where dose is matched to clinical indication); or iterative reconstruction.
--- NOTE | 2024-04-01 08:31 | PDOC.CMIN ---
Date of service: 04/01/24 Time of Service: 08:56 Care Management Initial Assmt Initial Assessment Reason for Hospitalization: intracranial hemorrhage Functional Status/Living Situation Patient Presentation: Amanda was lying in bed with her eyes closed when CM met with her. She responded to CM gently calling her name and woke up. She was smiling and engaged well with CM. Pat informed CM that she feels well but is very tired. She requested to be able to go back to sleep. Amanda was transferred to [facility] from the [facility], where she has been living since July. She has received an eviction notice so she will not be able to return there. When Amanda is medically stable, will send a referral to [facility] at her daughter China's request if approved by the provider. MAYE spoke with Lawanda Kurtz NP, who has been [facility]'s therapist for the past 6 weeks. She informed CM that she had been trying to get Amanda into [facility] for a while but because of the pending eviction notice, they could not accept her. Amanda requires full assistance with ADLs at this time and uses a walker for ambulatory assistance. Town of Residence: [facility] Resides with: Other (assisted living facility) Significant Other/Family: Out of area (children all live out of state) Employment Status: Unemployed Medications Medication Management: Issues/Barriers with Instructions/Directions (some non-compliance reported) Physical Functioning/Mobility Assistive Device: walker Advance Directives Advance Directives: Do you have an Advance Directive: Y 07/09/23 13:55 AD On File at [facility]: Y 07/09/23 13:55 Date Asked 10/16/23 03/20/24 13:49 AD Date Reviewed 03/30/24 03/30/24 19:59 COLST On File at [facility] Yes 01/13/24 10:29 COLST Date Scanned 10/16/23 01/15/24 07:22 Code Status Resuscitation Status DNR/DNI Insurance Coverage/Financial Issues Insurance: Medicare [employer] Supplement Care Team Visit Care Team Role Provider Type Ariadna Trevino Primary Care Provider ADV PRACTICE REGISTERED NURSE Ronan Jackson MD Emergency Provider [facility] STAFF PHYSICIAN Marlon Mott MD Admit Provider [facility] STAFF PHYSICIAN Attending Provider Discharge Potential Discharge Needs: Other (placement) Anticipated Barriers to Discharge: Bed availability Patient/Family Education Needs: Review discharge instructions, discuss Ask Me Three Transportation: Private vehicle Plan: Anticipate Amanda's discharge plan will be complicated. She has sustained a brain bleed presumably from a fall. At baseline she has dementia and mental health issues so monitoring the effects of the bleed will be even more challenging. Her daughter China would like her to go to [facility] for evaluation and possible medication adjustment. After that she would like Pat placed in a intermediate care facility in [place] nearer to her home. When Pat is deemed medically cleared, CM will send a referral to [facility] if deemed appropriate by the provider.. CM will continue to follow and support discharge needs. PFSH All Active Problems (Updated 03/31/24 @ 21:54 by Marlon Mott MD) Pulmonary embolism (Chronic) Cerebral amyloid angiopathy (Acute) -2020: possible diagnosis re:brain MRI/ [place] [facility] [place]Anthony Aval[place] Scalp laceration (Acute) Anticoagulated (Acute) Constipation (Acute) Fall (Acute) Intracranial hemorrhage (Acute) Recurrent falls (Acute) Alzheimer dementia with psychotic disturbance (Acute) Fall (Acute) Altered mental status (Acute) Osteoarthritis of spine with radiculopathy, lumbar region (Acute) Bladder diverticulum (Acute) Coronary artery calcification seen on CAT scan (Acute) Pancolonic diverticulosis (Acute) Gallstones (Acute) DNR (do not resuscitate) (Acute) See 10/15/2023 COLST: DNI/DNR, + transfer and treat Current chronic use of systemic steroids (Acute) Counseling regarding advance care planning and goals of care (Acute) Palliative care patient (Acute) Abdominal pain (Acute) Callosity (Acute) Nail dystrophy (Acute) Toe pain, left (Acute) Toe pain, right (Acute) Multiple fractures of ribs of right side (Acute) Colostomy status (Chronic) Anterolisthesis of lumbosacral spine (Chronic) Abd/CT 03/2022 Mild degenerative anterolisthesis L5 upon S1 noted as well as vacuum phenomena within the L5-S1 disc space which was not previously present. 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 Patient aware that there is higher than recommended dose. Makes informed decision, drug contract with [facility] Chronic pain syndrome (Chronic) Due to chronic back pain, 08/2021-drug contract at [facility], V PMS review,11/2021-urine drug screen Using oxycodone for pain mgmt when taking a shower. 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 She did see surgery down at in 2022. This is a large extensive surgery and they did not think she was a good surgical candidate due to her frailty. GERD (gastroesophageal reflux disease) (Chronic) Urethral caruncle (Chronic) dx by Obgyn Gout (Chronic) Rectovaginal fistula (Chronic) Anemia of chronic disease (Chronic) Constipation by delayed colonic transit (Chronic) Urinary retention with incomplete bladder emptying (Chronic) Adrenal insufficiency (Chronic) Iatrogenic secondary to chronic steroid use, on low-dose chronic steroid Primary osteoarthritis of left knee (Chronic 07/30/15) PMR (polymyalgia rheumatica) (Chronic 01/15/16) DX 2016 : /curtis resp. to Prednisone Osteoporosis (Chronic) Bone density scan : 11/2021, [place] [facility] [place] Obstructive sleep apnea syndrome (Chronic) after closed head injury pt not using CPAP machine Non-alcoholic fatty liver disease (Chronic) persistent elevated AST echo. : hepatic steatosis Memory impairment (Chronic 06/18/94) H/O closed head injury w/ result in memory difficulties, word findig problems Depressive disorder (Chronic) Benign paroxysmal positional vertigo (Chronic) after closed head injury Medical History Hypothyroidism (04/05/12) Chronic renal insufficiency, stage III (moderate) Pulmonary embolism on right Cerebral amyloid angiopathy : possible diagnosis re:brain MRI/ followed by [facility] [place]Anthony Avalos Visual field loss Anterolisthesis of lumbar spine Multiple fractures of ribs Abdominal pain in female Alzheimer's dementia Brain bleed 05/2021 tx at [facility], intra parenchymal left-sided hemorrhage-treated through [facility] September 2023, new hemorrhagic stroke felt to be secondary to CAA, see ED notes T12 burst fracture Compression fracture of body of thoracic vertebra Palliative care patient Perforation of colon as colonoscopy complication Tuberculosis Insomnia Raynaud's disease Excessive sweating (06/02/16) daytime sweating if >74 degrees/ fatigue normal cbc, spep,echocardiogram,sed.rate,cmp Colon polyp (06/28/18) adenoma colon pollyps-1997; none on subsequent colonoscopies; most recent c-scope in 2005 was normal 2017-adenoma Surgical History S/P rotator cuff repair S/P BSO (bilateral salpingo-oophorectomy) S/P appendectomy S/P hysterectomy S/P kyphoplasty H/O partial resection of colon Sigmoid colon resection 06/28/18 S/P tonsillectomy H/O dilation and curettage Laparoscopic, Ovarian Cystectomy B/L EGD - [facility] (~2003) MILD EROSIVE ESOPHAGITIS, NO PINON'S ON BIOPSY Colonoscopy - [facility] ADENOMA COLON POLYPS 1997, NONE ON MULTIPLE SUBSEQUENT COLONOSCOPIES, MOST RECENT C-SCOPE 2005 WAS NORMAL, 2018 - cecal polyp, diverticulosis Family History Mother , in her 80s from pneumonia Heart disease Pneumonia Father , from complications of prostate surgery in his 80s Stroke Personal history of malignant neoplasm Heart disease Brother , aged 68 Alcohol abuse Cirrhosis with alcoholism Grandfather Essential hypertension Heart disease Grandmother Personal history of malignant neoplasm Stroke Grandmother Personal history of malignant neoplasm Son , from his drinking/SA; her oldest child Alcohol abuse Social History Smoking/Tobacco Use Status: Former Tobacco Use Smoking risk assessment performed?: Yes Alcohol Intake: current Alcohol Intake frequency: holidays/special occasions only Alcohol type: hard liquor Details: HOLIDAYS AND SPECIAL OCCASIONS ONLY Drug use: Never Substance use type: does not use Counseling given: No Household members: other Details: 2 Housing: assisted living facility Do you feel safe at home: No Do you feel safe in your relationship?: No Additional Social history: h/o unsafe relationship with Now live alone at [facility] assisted living in [facility]. Daughter in [place], near where the patient grew up. No other family close History History 6 Para 3 Hx # Term Pregnancies 3 Multiple births Hx # Pregnancies Ectopic pregnancies AB induced Hx Number of Living Children 3 AB spontaneous SDOH(Care Management) Screening Will the Patient Participate in the Screening?: Yes Do you worry about having a steady place to live?: yes In the past 12 months, have you had to go without electric, gas, oil or water in your home?: no Have you or anyone in your house had to go without enough food to eat?: no Has lack of transportation kept you from medical appointments or from doing things needed for daily living?: no Has anyone in your support network made you feel unsafe for any reason?: no Social Determinants of Health Comments(SDOH Details): pt lived in assisted living facility Health Related Social Needs Health related social needs: housing instability, housed, with risk of homelessness(Z59.811)
--- NOTE | 2024-04-01 09:32 | W.PM.PROGNOT ---
Date of Service Date of service: 04/01/24 Time of Service: 09:32 Assessment and Plan Assessment and plan (1) Intracranial hemorrhage: Status: Acute Assessment and plan: DNR/DNI with no intention for acute intervention in the event that she has a massive intracerebral bleed. Obtain serial CT scans of the head monitor for progression of hemorrhage. Continue one-to-one patient sitter for patient's safety. Etiology of her pulmonary embolism was never determined. Given her history of dementia and frequent falls she is a high risk to resume anticoagulation. Given her prior history of cerebral amyloid even without the fall she would be at higher risk for recurrent cerebral bleeds. Clinically she is asymptomatic for the pulmonary embolism with no dyspnea or chest discomfort. (2) Alzheimer dementia with psychotic disturbance: Status: Acute Assessment and plan: Continue recommended adjustment in her Depakote and as needed use of Seroquel. Continue scheduled doses of Seroquel. Monitor for behavioral changes. Qualifiers: Alzheimer's disease onset: late onset Dementia severity: severe Qualified Code(s): G30.1 - Alzheimer's disease with late onset; F02.C2 - Dementia in other diseases classified elsewhere, severe, with psychotic disturbance (3) Recurrent falls: Status: Acute Assessment and plan: One-to-one sitter, PT consult in the morning (4) Constipation: Status: Acute Assessment and plan: continue miralax continue metamucil, continue senna Qualifiers: Constipation type: drug induced constipation Qualified Code(s): K59.03 - Drug induced constipation (5) Visual field loss following cerebrovascular accident: Start date: 05/29/21 Status: Chronic Assessment and plan: Chronic (6) Cerebral amyloid angiopathy: Status: Acute (7) Scalp laceration: Status: Acute Assessment and plan: primary closure done in the ED, now local wound care keeping clean Qualifiers: Encounter type: initial encounter Qualified Code(s): S01.01XA - Laceration without foreign body of scalp, initial encounter (8) Pulmonary embolism: Start date: 03/20/24 Status: Chronic Assessment and plan: right sided PE involving RML, RLL, s/p treatment w/ apixaban now w/ complications of right frontal lobe intraparenchymal cerebral bleeding d/t trauma. She has had her anticoagulation reversed d/t slightly increasing focus of bleeding. Clinically she is stable but needs monitoring. Repeat her CT head tonight at 9 pm and again in the morning. will need to discuss need for future anticoagulation and timing of when optimal safte to restart. In my experience w/ CVA particulary lareg CVA or those w/ small hemorrhagic conversion, usually wait 7 to 14 days. Given her prior cerebral bleed from cerebral amyloid and her dementia and falls, she is high risk for rebleed. I will get venous duplex of legs in the morning and if a DVT can be confirmed then may be safer to place IVC than to restart anticoagulation later in her course. Qualifiers: Pulmonary embolism type: multiple subsegmental (without acute cor pulmonale) Qualified Code(s): I26.94 - Multiple subsegmental pulmonary emboli without acute cor pulmonale Subjective Subjective Patient reports: no new complaints, flatus, diarrhea, vomiting and fever; denies bowel movement, nausea or shortness of breath Exam Narrative Exam Narrative: GEN: Alert, oriented to self and place. No acute distress at rest. HEENT: Head dried blood. Conjunctiva clear, no icterus. PERRL, EOMI. no rhinorrhea. MMM, OP benign. Neck is supple with no masses or lymphadenopathy, trachea midline LUNGS: CTAB, normal effort speaks in full sentences. CV: RRR with no murmurs, gallops, or rubs. No elevation JVP. ABD: active bowel sounds, soft, soft, not tender Colostomy back empty. No masses. EXT: no cyanosis, clubbing, or edema Objective Last Vital Signs Temp 36.6 C 04/01/24 07:04 Pulse 58 L 04/01/24 07:04 Resp 16 04/01/24 07:04 BP 107/38 L 04/01/24 07:04 Pulse Ox 91 L 04/01/24 07:04 Laboratory Results - last 24 hr 04/01/24 04/01/24 04/01/24 01:45 06:00 06:55 WBC 7.79 RBC 3.05 L Hgb 8.7 L Hct 27.4 L MCV 90 MCH 28.5 MCHC 31.8 L RDW 16.6 H Plt Count 216 MPV 11.8 H Immature Gran % 0.3 Neutrophils % 70.1 Lymphocytes % 18.0 Monocytes % 7.4 Eosinophils % 3.9 Basophils % 0.3 Nucleated RBC % 0.0 Absolute Neutrophils 5.47 Absolute Lymphocytes 1.40 Absolute Monocytes 0.58 Absolute Eosinophils 0.30 Absolute Basophils 0.02 Sodium Cancelled 139 Potassium Cancelled 4.7 D Chloride Cancelled 104 Carbon Dioxide Cancelled 30.3 Anion Gap Cancelled 4.7 BUN Cancelled 18 Creatinine Cancelled 1.5 H Est GFR (CKD-EPI 2020) Cancelled 34.58 Glucose Cancelled 91 Calcium Cancelled 8.5 Urine Color Yellow Urine Clarity Sl Cloudy Urine pH 7.5 Ur Specific [place] 1.025 Urine Protein 30 H Urine Ketones Negative Urine Blood Small H Urine Nitrite Negative Urine Bilirubin Negative Urine Urobilinogen 0.2 Ur Leukocyte Esterase Large H Urine RBC 5-10 H Urine WBC >50 H Ur Epithelial Cells Few Urine Crystals Negative Urine Bacteria Moderate Urine Casts Negative Urine Mucus Negative Ur Culture Indicated? Yes Urine Glucose Negative Time Spent with Patient Time Spent with Patient: 35-49 minutes Time was spent: preparing to see the patient(eg.review tests), ordering medications,tests, procedures, referring, communicating with other health childcare provider, indepentently interpreting results, counseling the patient and care coordination
[2024-04-01 09:54] LABS: Lab Add On Test Done
[2024-04-01 10:13] LABS: Magnesium 2.5 mg/dL (1.8-2.4)
--- NOTE | 2024-04-01 10:36 | NUR.NOTE ---
Daughter benita called for an update. Smearer updated daughter on Head CT, UTI and new ABX. Daughter will call back later for another check in. AP RN Nursing Note:
[2024-04-01 11:36] VITALS: BP 110/40; PULSE 58; RESP 15; TEMP 36.4; O2SAT 94
[2024-04-01 15:01] VITALS: BP 137/56; PULSE 66; RESP 16; TEMP 36.6; O2SAT 96
[2024-04-01 19:53] VITALS: BP 140/54; PULSE 66; RESP 16; TEMP 36.8; O2SAT 92
[2024-04-01] MEDS: Divalproex 250 MG TABEC 500 MG PO (20:06)
[2024-04-01] MEDS: Melatonin 3 MG TAB PO (20:08)
[2024-04-01] MEDS: traZODone 50 MG TAB 100 MG PO (20:08)
[2024-04-01 23:54] VITALS: BP 149/58; PULSE 62; RESP 15; TEMP 36.3; O2SAT 96
[2024-04-02 03:48] VITALS: BP 143/55; PULSE 60; RESP 15; TEMP 36.3; O2SAT 97
[2024-04-02] MEDS: Levothyroxine 125 MCG TAB PO (05:54)
[2024-04-02] MEDS: Acetaminophen 325 MG TAB PO ×2 (05:56→09:58)
[2024-04-02 06:23] LABS: Abs Immature Grans 0.02 10^3/uL (0.0-0.06); Absolute Basophil Count 0.02 10^3/uL (0.0-0.2); Absolute Eosinophil Count 0.27 10^3/uL (0.0-0.7); Absolute Monocyte Count 0.59 10^3/uL (0.1-0.8); Absolute Neutrophil Count 4.18 10^3/uL (1.2-6.7); Basophils % 0.3 %; Eosinophils % 4.2 %; HCT 27.8 % (36.0-46.0); HGB 8.6 g/dL (11.2-15.7); Immature Grans % 0.3 %; Lymphocytes % 20.4 %; MCH 27.8 pg (27.0-33.0); MCHC 30.9 % (32.0-36.0); MCV 90 fL (80-95); MPV 10.7 fL (8.0-11.0); Monocytes % 9.2 %; Neutrophils % 65.6 %; Platelet Count 238 10^3/uL (130-400); RBC 3.09 10^6/uL (3.93-5.22); RDW 16.2 % (11.7-14.6); RDW-SD 53.4 fL; WBC 6.38 10^3/uL (4.4-10.8)
[2024-04-02 06:35] LABS: Anion Gap 6.3 mmol/L (3-11); BUN 20 mg/dL (7-18); CO2 28.7 mmol/L (21.0-32.0); CREATININE 1.2 mg/dL (0.55-1.02); Calcium 9.1 mg/dL (8.5-10.1); Chloride 103 mmol/L (98-107); Estimated GFR 45.19 (mL/min/1.73m2); Glucose 94 mg/dL (74-106); Magnesium 2.2 mg/dL (1.8-2.4); Potassium 4.4 mmol/L (3.5-5.1); Sodium 138 mmol/L (136-145)
[2024-04-02 07:25] LABS: Lab Add On Test DONE
[2024-04-02 07:39] LABS: Iron 25 ug/dL (50-170); Total Iron Binding Capacity 257 ug/dL (250-450); Transferrin Sat 10 % (15-50)
[2024-04-02 08:06] VITALS: BP 128/51; PULSE 55; RESP 15; TEMP 35.8; O2SAT 94
[2024-04-02 08:07] LABS: Ferritin 49 ng/mL (8-252); Folate 2.1 ng/mL (8.6-20.0); Vitamin B12 355 pg/mL (193-986)
[2024-04-02 08:17] LABS: LDH 144 U/L (81-234)
[2024-04-02] MEDS: Memantine 5 MG TAB 10 MG PO (09:34)
[2024-04-02] MEDS: Divalproex 250 MG TABEC PO (09:35)
[2024-04-02] MEDS: Senna TAB 1 TAB PO (09:35)
[2024-04-02] MEDS: Allopurinol 100 MG TAB PO (09:35)
[2024-04-02] MEDS: QUEtiapine 25 MG TAB PO (09:35)
[2024-04-02] MEDS: DULoxetine 20 MG CAP 40 MG PO (09:35)
[2024-04-02] MEDS: Famotidine 20 MG TAB PO (09:36)
[2024-04-02] MEDS: Ferrous Gluconate 324 MG TAB PO (09:36)
[2024-04-02] MEDS: Polyethylene Glycol 3350 17 GM PACKET PO (09:36)
[2024-04-02] MEDS: Normal Saline Flush 10 ML SYR IVP ×2 (09:36→20:06)
[2024-04-02] MEDS: Ursodiol 300 MG CAP PO (09:36)
[2024-04-02] MEDS: Psyllium PKT 1 EACH PO (09:36)
[2024-04-02 09:44] VITALS: BP 130/54; PULSE 57; RESP 20; O2SAT 95
--- NOTE | 2024-04-02 09:54 | PGE_ITS ---
Date of Service Date of service: 04/02/24 Time of Service: 09:54 Assessment and Plan Assessment and plan (1) Intracranial hemorrhage: Status: Acute Assessment and plan: DNR/DNI with no intention for acute intervention in the event that she has a massive intracerebral bleed. serial CT scans of the head stable. Continue one-to-one patient sitter for patient's safety. Etiology of her pulmonary embolism was never determined. Given her history of dementia and frequent falls she is a high risk to resume anticoagulation. Given her prior history of cerebral amyloid even without the fall she would be at higher risk for recurrent cerebral bleeds. Clinically she is asymptomatic for the pulmonary embolism with no dyspnea, oxygen requirements or chest discomfort. (2) Alzheimer dementia with psychotic disturbance: Status: Acute Assessment and plan: Continue recommended adjustment in her Depakote and as needed use of Seroquel. Continue scheduled doses of Seroquel. Monitor for behavioral changes. Qualifiers: Alzheimer's disease onset: late onset Dementia severity: severe Qualified Code(s): G30.1 - Alzheimer's disease with late onset; F02.C2 - Dementia in other diseases classified elsewhere, severe, with psychotic disturbance (3) Recurrent falls: Status: Acute Assessment and plan: One-to-one sitter, PT consult in the morning (4) Constipation: Status: Acute Assessment and plan: continue miralax continue metamucil, continue senna Qualifiers: Constipation type: drug induced constipation Qualified Code(s): K59.03 - Drug induced constipation (5) Visual field loss following cerebrovascular accident: Status: Chronic Assessment and plan: Chronic (6) Cerebral amyloid angiopathy: Status: Acute (7) Scalp laceration: Status: Acute Assessment and plan: primary closure done in the ED, now local wound care keeping clean Qualifiers: Encounter type: initial encounter Qualified Code(s): S01.01XA - Laceration without foreign body of scalp, initial encounter (8) Pulmonary embolism: Start date: 03/20/24 Status: Chronic Assessment and plan: right sided PE involving RML, RLL, s/p treatment w/ apixaban now w/ complications of right frontal lobe intraparenchymal cerebral bleeding d/t trauma. She has had her anticoagulation reversed d/t slightly increasing focus of bleeding. Clinically she is stable but needs monitoring. Repeat CT head stable. will need to discuss need for future anticoagulation and timing of when optimal safe to restart. Anticipate 7 to 14 days, but will defer to neurosurg. Given her prior cerebral bleed from cerebral amyloid and her dementia and falls, she is high risk for rebleed. bilateral DVT studies negative. Qualifiers: Pulmonary embolism type: multiple subsegmental (without acute cor pulmonale) Qualified Code(s): I26.94 - Multiple subsegmental pulmonary emboli without acute cor pulmonale (9) DVT prophylaxis: Status: Acute Assessment and plan: contraindicated in setting of acute cerebral hemorrhage carl stockings (10) Discharge planning issues: Status: Acute Assessment and plan: case management following for discharge planning discussed with DR Landeros Subjective Subjective Patient reports: afebrile; denies shortness of breath Interval history since last seen: c/o headache, no other new c/o Exam Const General: cooperative, comfortable and no acute distress Nutritional Appearance: average body habitus Orientation: alert, awake and oriented to person [facility] Head: normal to inspection, normocephalic and laceration (staple intact) Face and sinus: normal facial exam Mouth: oral mucosae normal Neck Neck: normal visual inspection and full ROM Chest Chest: normal inspection of the chest Resp Effort & Inspection: normal respiratory effort Cardio Rate: regular rate Rhythm: regular rhythm GI Inspection: normal to inspection Palpation: soft and no guarding Skin General skin exam: no rashes or lesions noted Neuro General: patient alert and patient awake Motor: muscle tone normal throughout Extrem General: normal to inspection, full ROM and no pedal edema Psych Affect: blunted Objective Last Vital Signs Temp 35.8 C L 04/02/24 08:06 Pulse 57 L 04/02/24 09:44 Resp 20 04/02/24 09:44 BP 130/54 L 04/02/24 09:44 Pulse Ox 95 04/02/24 09:44 Laboratory Results - last 24 hr 04/01/24 04/02/24 06:55 05:50 WBC 6.38 RBC 3.09 L Hgb 8.6 L Hct 27.8 L MCV 90 MCH 27.8 MCHC 30.9 L RDW 16.2 H Plt Count 238 MPV 10.7 Immature Gran % 0.3 Neutrophils % 65.6 Lymphocytes % 20.4 Monocytes % 9.2 Eosinophils % 4.2 Basophils % 0.3 Nucleated RBC % 0.0 Absolute Neutrophils 4.18 Absolute Lymphocytes 1.30 Absolute Monocytes 0.59 Absolute Eosinophils 0.27 Absolute Basophils 0.02 Sodium 139 138 Potassium 4.7 D 4.4 Chloride 104 103 Carbon Dioxide 30.3 28.7 Anion Gap 4.7 6.3 BUN 18 20 H Creatinine 1.5 H 1.2 H Est GFR (CKD-EPI 2020) 34.58 45.19 Glucose 91 94 Calcium 8.5 9.1 Magnesium 2.5 H 2.2 Iron 25 L TIBC 257 Transferrin % Sat 10 L Ferritin 49 Lactate Dehydrogenase 144 Vitamin B12 355 Folate 2.1 L Add-On Test Request Done DONE Time Spent with Patient Time Spent with Patient: 35-49 minutes Time was spent: preparing to see the patient(eg.review tests), obtaining and/or reviewing separately otained hiistory, ordering medications,tests, procedures and indepentently interpreting results
[2024-04-02] MEDS: fentaNYL 12 MCG PATCH TD (09:58)
[2024-04-02] MEDS: Lisinopril 10 MG TAB 20 MG PO (09:58)
[2024-04-02] MEDS: Ondansetron O.D.T. 4 MG TABEF PO (11:49)
[2024-04-02 20:17] VITALS: BP 113/60; PULSE 58; RESP 16; TEMP 35.7; O2SAT 92
[2024-04-03 00:06] VITALS: BP 136/52; PULSE 60; RESP 14; TEMP 36.5; O2SAT 93
[2024-04-03] MEDS: Acetaminophen 325 MG TAB PO ×2 (01:54→18:08)
[2024-04-03] MEDS: Psyllium PKT 1 EACH PO ×2 (08:23→20:46)
[2024-04-03] MEDS: Polyethylene Glycol 3350 17 GM PACKET PO ×2 (08:23→20:46)
[2024-04-03] MEDS: Normal Saline Flush 10 ML SYR IVP ×4 (08:23→20:48)
[2024-04-03] MEDS: Famotidine 20 MG TAB PO ×2 (08:24→20:47)
[2024-04-03] MEDS: Memantine 5 MG TAB 10 MG PO ×2 (08:24→20:47)
[2024-04-03] MEDS: QUEtiapine 25 MG TAB PO (08:24)
[2024-04-03] MEDS: Ursodiol 300 MG CAP PO ×2 (08:24→20:46)
[2024-04-03] MEDS: Divalproex 250 MG TABEC PO (08:24)
[2024-04-03] MEDS: DULoxetine 20 MG CAP 40 MG PO (08:25)
[2024-04-03] MEDS: Ferrous Gluconate 324 MG TAB PO ×2 (08:25→20:47)
[2024-04-03] MEDS: Allopurinol 100 MG TAB PO (08:25)
[2024-04-03] MEDS: Lisinopril 10 MG TAB 20 MG PO (08:25)
[2024-04-03] MEDS: Senna TAB 1 TAB PO (08:25)
[2024-04-03] MEDS: Levothyroxine 125 MCG TAB PO (08:26)
[2024-04-03 08:32] VITALS: BP 132/58; PULSE 58; RESP 16; TEMP 36.3; O2SAT 95
--- NOTE | 2024-04-03 10:26 | W.PM.PROGNOT ---
Date of Service Date of service: 04/20/24 Time of Service: 10:26 Assessment and Plan Assessment and plan (1) Urinary tract infection: Status: Acute Assessment and plan: urine culture growing enterococcus faecalis will treat with fosfomycin (2) Intracranial hemorrhage: Status: Acute Assessment and plan: DNR/DNI with no intention for acute intervention in the event that she has a massive intracerebral bleed. serial CT scans of the head stable. Continue one-to-one patient sitter for patient's safety. Etiology of her pulmonary embolism was never determined. Given her history of dementia and frequent falls she is a high risk to resume anticoagulation. Given her prior history of cerebral amyloid even without the fall she would be at higher risk for recurrent cerebral bleeds. Clinically she is asymptomatic for the pulmonary embolism with no dyspnea, oxygen requirements or chest discomfort. (3) Alzheimer dementia with psychotic disturbance: Status: Acute Assessment and plan: Continue recommended adjustment in her Depakote and as needed use of Seroquel. Continue scheduled doses of Seroquel. Monitor for behavioral changes. 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 She has had her anticoagulation reversed d/t slightly increasing focus of bleeding. Clinically she is stable but needs monitoring. Repeat CT head stable. will need to discuss need for future anticoagulation and timing of when optimal safe to restart. Anticipate 7 to 14 days, but will defer to neurosurg. Given her prior cerebral bleed from cerebral amyloid and her dementia and falls, she is high risk for rebleed. bilateral DVT studies negative. Qualifiers: Pulmonary embolism type: multiple subsegmental (without acute cor pulmonale) Qualified Code(s): I26.94 - Multiple subsegmental pulmonary emboli without acute cor pulmonale (10) DVT prophylaxis: Status: Acute Assessment and plan: contraindicated in setting of acute cerebral hemorrhage carl stockings (11) Discharge planning issues: Status: Acute Assessment and plan: case management following for discharge planning discussed with DR Landeros Subjective Subjective Patient reports: no new complaints Exam Const General: cooperative, comfortable and no acute distress Nutritional Appearance: average body habitus Orientation: alert, awake and oriented to person HENNE Head: normal to inspection, normocephalic and laceration (staple intact) Face and sinus: normal facial exam Mouth: oral mucosae normal Neck Neck: normal visual inspection and full ROM Chest Chest: normal inspection of the chest Resp Effort & Inspection: normal respiratory effort Cardio Rate: regular rate Rhythm: regular rhythm GI Inspection: normal to inspection Palpation: soft, no guarding and other (ostomy intact, draining soft/liquid stool ) Skin General skin exam: no rashes or lesions noted Neuro General: patient alert and patient awake Motor: muscle tone normal throughout Extrem General: normal to inspection, full ROM and no pedal edema Psych Affect: blunted Objective Last Vital Signs Temp 36.3 C L 04/03/24 08:32 Pulse 58 L 04/03/24 08:32 Resp 16 04/03/24 08:32 BP 132/58 L 04/03/24 08:32 Pulse Ox 95 04/03/24 08:32 Laboratory Results - last 24 hr 04/01/24 01:45 Urine Color Yellow Urine Clarity Sl Cloudy Urine pH 7.5 Ur Specific [place] 1.025 Urine Protein 30 H Urine Ketones Negative Urine Blood Small H Urine Nitrite Negative Urine Bilirubin Negative Urine Urobilinogen 0.2 Ur Leukocyte Esterase Large H Urine RBC 5-10 H Urine WBC >50 H Ur Epithelial Cells Few Urine Crystals Negative Urine Bacteria Moderate Urine Casts Negative Urine Mucus Negative Ur Culture Indicated? Yes Urine Glucose Negative Time Spent with Patient Time Spent with Patient: 35-49 minutes Time was spent: preparing to see the patient(eg.review tests), obtaining and/or reviewing separately otained hiistory, ordering medications,tests, procedures, indepentently interpreting results and counseling the patient
[2024-04-03] MEDS: Fosfomycin Tromethamine 3 GM PACKET PO (11:24)
[2024-04-03 14:12] VITALS: BP 112/60; PULSE 73; RESP 16; TEMP 36.7; O2SAT 94
--- NOTE | 2024-04-03 17:20 | NUR.NOTE ---
Nursing Note: Pt's dtr [place] called. Pt is talking on the phone in good spirits, but admitting to her hat she does not know what is going on. A minute into the conversation, pt asked who she was talking to.
[2024-04-03 20:14] VITALS: BP 112/79; PULSE 70; RESP 16; TEMP 36.6; O2SAT 98
[2024-04-03] MEDS: Melatonin 3 MG TAB PO (20:47)
[2024-04-03] MEDS: Divalproex 250 MG TABEC 500 MG PO (20:47)
[2024-04-03] MEDS: traZODone 50 MG TAB 100 MG PO (20:47)
[2024-04-03 23:52] VITALS: BP 124/50; PULSE 62; RESP 18; TEMP 36.7; O2SAT 92
[2024-04-04] VITALS (7 sets, daily range): BP systolic 120–151; BP diastolic 53–62; PULSE 53–63; RESP 15–19; TEMP 36.2–36.6; O2SAT 91–99
[2024-04-04] MEDS: Acetaminophen 325 MG TAB PO ×2 (04:35→13:15)
[2024-04-04] MEDS: Levothyroxine 125 MCG TAB PO (06:12)
[2024-04-04] MEDS: Psyllium PKT 1 EACH PO ×2 (09:18→19:28)
[2024-04-04] MEDS: Polyethylene Glycol 3350 17 GM PACKET PO ×2 (09:19→19:29)
[2024-04-04] MEDS: Normal Saline Flush 10 ML SYR IVP ×3 (09:19→19:29)
[2024-04-04] MEDS: Lisinopril 10 MG TAB 20 MG PO (09:20)
[2024-04-04] MEDS: Senna TAB 1 TAB PO (09:20)
[2024-04-04] MEDS: Allopurinol 100 MG TAB PO (09:20)
[2024-04-04] MEDS: Famotidine 20 MG TAB PO ×2 (09:20→19:28)
[2024-04-04] MEDS: QUEtiapine 25 MG TAB PO (09:20)
[2024-04-04] MEDS: DULoxetine 20 MG CAP 40 MG PO (09:20)
[2024-04-04] MEDS: Ursodiol 300 MG CAP PO ×2 (09:20→19:29)
[2024-04-04] MEDS: Memantine 5 MG TAB 10 MG PO ×2 (09:20→19:28)
[2024-04-04] MEDS: Divalproex 250 MG TABEC PO (09:20)
[2024-04-04] MEDS: Ferrous Gluconate 324 MG TAB PO ×2 (09:21→19:29)
--- NOTE | 2024-04-04 09:33 | IN_ITS ---
PT Notes Visit Reasons: cerebral hemorrhage Inpatient Physical Therapy Evaluation Date: 04/04/2024 Referring Doctor: Dr Mott PT Orders: PT CONSULT: PT eval and treat Precautions: Standard, Fall risk, Johnson Catheter, Colostomy, IV Left forearm Patient Profile/Admitting Diagnosis: [] Pt is 83 yo female who with recent hospitalization with DX of PE (03/20- 03/22)presented to ED with abdominal discomfort,decreased ostomy output and agitation/ threatening staff at her [facility]. Pelvic and abdominal CT revealed stoma hernia containing portion of descending colon with no obstruction. While awaiting Neuropsych Consult pt sustained a witnessed fall with (+) head strike on floor. Pt sustained 3cm laceration to occiput. Head CT: revealed small Right frontal lobe intracerebral hemmorage. Neuro Consult recommended f/u CT on 03/31 which revealed increase size and density Neuro then recommended treat with Kcentra and Vitamin K as well as Cardiology consult re: anticoagulation for PE. She was transferred to the Med-Surg unit for continued medical management and then PT Consult placed. PMHX: Pulmonary embolism (Chronic) Cerebral amyloid angiopathy (Acute) : possible diagnosis re:brain MRI/ followed by Neuro [facility] Dr.Anthony Avalos Scalp laceration (Acute) Anticoagulated (Acute) Constipation (Acute) Fall (Acute) Intracranial hemorrhage (Acute) Recurrent falls (Acute) Alzheimer dementia with psychotic disturbance (Acute) Fall (Acute) Altered mental status (Acute) Osteoarthritis of spine with radiculopathy, lumbar region (Acute) Bladder diverticulum (Acute) Coronary artery calcification seen on CAT scan (Acute) Pancolonic diverticulosis (Acute) Gallstones (Acute) DNR (do not resuscitate) (Acute) See 10/15/2023 COLST: DNI/DNR, + transfer and treatCurrent chronic use of systemic steroids (Acute) Counseling regarding advance care planning and goals of care (Acute) Palliative care patient (Acute) Abdominal pain (Acute) Callosity (Acute) Nail dystrophy (Acute) Toe pain, left (Acute) Toe pain, right (Acute) Multiple fractures of ribs of right side (Acute) Colostomy status (Chronic) Anterolisthesis of lumbosacral spine (Chronic) Abd/CT 03/2022 Mild degenerative anterolisthesis L5 upon S1 noted as well as vacuum phenomena within the L5-S1 disc space which was not previously present.Atrophic vaginitis (Chronic) Visual field loss following cerebrovascular accident (Chronic) 2021-currently right eye, partial field defect, presumed secondary to recent cerebral hemorrhageInsomnia (Chronic) 08/2021 , chronic zolpidem use 12.5 mg. Patient aware that there is higher than recommended dose. 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 She did see surgery down at in 2022. This is a large extensive surgery and they did not think she was a good surgical candidate due to her frailty.GERD (gastroesophageal reflux disease) (Chronic) Urethral caruncle (Chronic) dx by [facility] Gout (Chronic) Rectovaginal fistula (Chronic) Anemia of chronic disease (Chronic) Constipation by delayed colonic transit (Chronic) Urinary retention with incomplete bladder emptying (Chronic) Adrenal insufficiency (Chronic) Iatrogenic secondary to chronic steroid use, on low-dose chronic steroidPrimary osteoarthritis of left knee (Chronic 07/30/15) PMR (polymyalgia rheumatica) (Chronic 01/15/16) DX 2016 : /curtis resp. to Prednisone Osteoporosis (Chronic) Bone density scan : 11/2021, managed by [facility], on prolia Obstructive sleep apnea syndrome (Chronic) after closed head injury pt not using CPAP machine Non-alcoholic fatty liver disease (Chronic) persistent elevated AST echo. : hepatic steatosis Memory impairment (Chronic 06/18/94) H/O closed head injury w/ result in memory difficulties, word findig problems Depressive disorder (Chronic) Benign paroxysmal positional vertigo (Chronic) after closed head injury Medical History Hypothyroidism (04/05/12) Chronic renal insufficiency, stage III (moderate) Pulmonary embolism on right Cerebral amyloid angiopathy : possible diagnosis re:brain MRI/ followed by Neuro [facility] Dr.Dusty Green Visual field loss Anterolisthesis of lumbar spine Multiple fractures of ribs Abdominal pain in female Alzheimer's dementia Brain bleed 05/2021 tx at [facility], intra parenchymal left-sided hemorrhage-treated through [facility] September 2023, new hemorrhagic stroke felt to be secondary to CAA, see ED [id number] burst fracture Compression fracture of body of thoracic vertebra Palliative care patient Perforation of colon as colonoscopy complication Tuberculosis Insomnia Raynaud's disease Excessive sweating (06/02/16) daytime sweating if >74 degrees/ fatigue normal cbc, spep,echocardiogram,sed.rate,cmp Colon polyp (06/28/18) adenoma colon pollyps-1997; none on subsequent colonoscopies; most recent c- scope in 2005 was normal 2018-adenoma Surgical History S/P rotator cuff repair S/P BSO (bilateral salpingo-oophorectomy) S/P appendectomy S/P hysterectomy S/P kyphoplasty H/O partial resection of colon Sigmoid colon resection 18S/P tonsillectomy H/O dilation and curettage Laparoscopic, Ovarian Cystectomy B/LEGD - [facility] (~2003) MILD EROSIVE ESOPHAGITIS, NO PINON'S ON BIOPSYColonoscopy - [facility] ADENOMA COLON POLYPS 1997, NONE ON MULTIPLE SUBSEQUENT COLONOSCOPIES, MOST RECENT C-SCOPE 2005 WAS NORMAL, 2018 - cecal polyp, diverticulosis Social History/Home Situation: resides at [facility]. Assist with Med management, meals and ADLs. Pt independent ambulation with 4WW. Pt is poor historian with vague answers to questions at times Equipment Owned/DME: 4[employer] Subjective: Pt states she prefers to be barefoot and only wears shoes to go out. Objective: General Observation: Pt presented initially seated in chair with [address]. She was agreeable to perform UE ROM and answer some questions then she stated she was too tired, closing her eyes and declined to continue. She was reapproached prior to lunch and she was agreeable to complete assessment. Mental Status: Alert O to person. pleasant cooperative and able to state I don't want to do this or talk about this anymore when frustrated by inability to answer questions. (+) word finding deficit. Pain: low back with transition sit to from stand Vital Signs: monitored by nursing ROM: Right Upper Extremity: WFL Left Upper Extremity: WFL Right Lower Extremity: WFL except DF to neutral with knee extension Left Lower Extremity: WFL except DF to neutral with knee extension Strength: Pt difficulty following commands for formal MMT Right Upper Extremity: demonstrates ability to reach overhead, behind neck/head , grasp 4WW Left Upper Extremity: demonstrates ability to reach overhead, behind neck/head , grasp 4WW Right Lower Extremity: impaired hip, knee and ankle musculature Left Lower Extremity: impaired hip knee and ankle musculature Coordination: Decreased/diminished left LE greater than right LE with RACHEL, patient unable to perform [id number] bilateral, decreased accuracy with [id number] bilateral upper extremities left greater than right Sensation: intact Bed Mobility/Transfers: Supine to sit min assist Sit to supine min assist Sit to stand CGA Stand to sit CGA Bed to and from chair with 4 wheeled walker CGA and cues to keep the four-wheel walker with her as patient preference to step walker to the side prior to sitting. Gait: amb 100 feet with 4WW CGA with festinating gait, increase B knee flexion,increased DF increased forward lean of trunk able to control 4WW and demonstrates ability to stop and restart as step length progressively shortens. Balance: [] Static Sitting: fair+ Dynamic Sitting: Fair Static Standing: Fair with 4WW Dynamic Standing: Fair - with 4WW Special Tests: Mobility Limitations Standardized Measure [facility] AM-PAC 6 clicks Basic Mobility Inpatient Short Form: Raw Score:[address] [facility] Score: 54.16% disability Informed Consent/Education: Patient instructed in purpose of PT consult and plan of care. Assessment: Patient is a 83 year old female referred to physical therapy services with the diagnosis of Intracranial bleed. Patient presents with clinical signs and symptoms consistent with admitting diagnosis, as demonstrated by the following impairment level findings: 1. Decreased strength to B UE/LE major muscle groups 2. Impaired standing balance 3. Impaired activity tolerance 4. Impaired coordination of movement/motor control bilateral lower extremities greater than upper Impairments are contributing to the following functional limitations: 1. [facility] score of 54.16% disability 2. Decline in bed mobility skills 3. Declining transfer skills 4. Difficulty with ambulation without assistive device and physical assistance 5. Increased completion time for mobility/ADL performance 6. Increased risk for falls Patient is assessed as a Moderate [id number] complexity based on the following: History: 83yo female with past medical history as stated above Examination: Demonstrates impairments in strength balance coordination and mobility level with underlying impairments and functional limitations. Presentation: evolving Decision Making: moderate Goals: Goals X1 week 1. Supine-Sit independent 2. Sit-Supine independent 3. Sit-Stand independent 4. Stand-Sit independent 5. Bed-Chair independent with 4 wheeled walker 6. Chair-Bed independent with four-wheel walker 7. Gait independent with 4 wheeled walker 300 feet to attend dining room at [facility] 8. Improve balance in standing to greater than equal to good with 4 wheeled walker Plan of Care/Treatment Plan: 1-2x/day, 7 days/week x 1 week. Plan of care has been reviewed with the REFINERY OPERATOR ASSISTANT providing the service under Physical Therapy direction. Initiate Physical Therapy intervention for strengthening, bed mobility, transfers, gait, stairs, balance training, use of assistive device. DISCHARGE RECOMMENDATIONS: [] [] Home with no services [] [X] Home with services HH PT versus SNF for short-term depending on progress towards goals [] Home with outpatient PT [] [] SNF for continued rehabilitation [] [] Utilization Supervisor Care [] [] SNF versus LTC based on ability to participate and progress [] TREATMENT CODE/TIME: 24749, 66996/ [id number], [id number] Please sign an return this page within 30 days if you agree with the above POC. Thank you! Physician Signature Date [facility]
--- NOTE | 2024-04-04 12:23 | PGE_ITS ---
Date of Service Date of service: 04/04/24 Time of Service: 12:23 Assessment and Plan Assessment and plan (1) Urinary tract infection: Status: Acute Assessment and plan: urine culture growing enterococcus faecalis treated with fosfomycin (2) Intracranial hemorrhage: Status: Acute Assessment and plan: DNR/DNI with no intention for acute intervention in the event that she has a massive intracerebral bleed. serial CT scans of the head stable. Discontinue one-to-one patient sitter for patient's safety. Room near nurses station with alarms on 100% of the time Etiology of her pulmonary embolism was never determined. Given her history of dementia and frequent falls she is a high risk to resume anticoagulation. Given her prior history of cerebral amyloid even without the fall she would be at higher risk for recurrent cerebral bleeds. Clinically she is asymptomatic for the pulmonary embolism with no dyspnea, oxygen requirements or chest discomfort. (3) Alzheimer dementia with psychotic disturbance: Status: Acute Assessment and plan: Continue recommended adjustment in her Depakote and as needed use of Seroquel. Continue scheduled doses of Seroquel. Monitor for behavioral changes. 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 She has had her anticoagulation reversed d/t slightly increasing focus of bleeding. Clinically she is stable but needs monitoring. Repeat CT head stable. will need to discuss need for future anticoagulation and timing of when optimal safe to restart. Anticipate 7 to 14 days, but will defer to neurosurg. Given her prior cerebral bleed from cerebral amyloid and her dementia and falls, she is high risk for rebleed. bilateral DVT studies negative. Qualifiers: Pulmonary embolism type: multiple subsegmental (without acute cor pulmonale) Qualified Code(s): I26.94 - Multiple subsegmental pulmonary emboli without acute cor pulmonale (10) DVT prophylaxis: Status: Acute Assessment and plan: contraindicated in setting of acute cerebral hemorrhage carl stockings (11) Discharge planning issues: Status: Acute Assessment and plan: case management following for discharge planning discussed with Dr. Ferguson Subjective Subjective Patient reports: no new complaints, tolerating liquids well, tolerating a regular diet, bowel movement and afebrile; denies diarrhea, nausea or vomiting Exam Const General: cooperative, comfortable and no acute distress Nutritional Appearance: average body habitus Orientation: alert, awake and oriented to person [facility] Head: normal to inspection, normocephalic and laceration (staple intact) Face and sinus: normal facial exam Mouth: oral mucosae normal Neck Neck: normal visual inspection and full ROM Chest Chest: normal inspection of the chest Resp Effort & Inspection: normal respiratory effort Cardio Rate: regular rate Rhythm: regular rhythm GI Inspection: normal to inspection Palpation: soft, no guarding and other (ostomy intact, draining soft/liquid stool ) Skin General skin exam: no rashes or lesions noted Neuro General: patient alert and patient awake Motor: muscle tone normal throughout Extrem General: normal to inspection, full ROM and no pedal edema Psych Affect: blunted Objective Last Vital Signs Temp 36.2 C L 04/04/24 11:25 Pulse 60 04/04/24 11:25 Resp 16 04/04/24 11:25 BP 123/54 L 04/04/24 11:25 Pulse Ox 96 04/04/24 11:25 Time Spent with Patient Time Spent with Patient: 25-34 minutes Time was spent: preparing to see the patient(eg.review tests), ordering medications,tests, procedures, referring, communicating with other health managed care liaison, indepentently interpreting results, counseling the patient and care coordination
--- NOTE | 2024-04-04 16:06 | PDOC.CMPRO ---
Date of service: 04/04/24 Time of Service: 16:06 Care Management Progress Note Progress Note Text Progress Note Text: Amanda was lying in bed dozing when CM met with her. She was easily aroused and stated that she is doing OK. Pat had a PT evaluation today and the recommendation is for Pat to receive home health PT vs short term rehab, depending on progress. Amanda stated that she is sleepy and would just like to take a nap, so CM respected her wishes and ended the visit. Amanda's daughter China has requested that a referral be sent to [facility]. This will be done as soon as the providers feels she is medically stable enough to be discharged. Discharge Potential Discharge Needs: Other (may be referred to a geriatric psychiatric facility for medication adjustment once medically cleared.) Anticipated Barriers to Discharge: Bed availability Patient/Family Education Needs: Review discharge instructions, discuss [facility] Transportation: Other (to be determined by disposition) Plan: Anticipate Amanda's discharge plan will be complicated. She has sustained a brain bleed presumably from a fall. At baseline she has dementia and mental health issues so monitoring the effects of the bleed will be even more challenging. Her daughter China would like her to go to [facility] for evaluation and possible medication adjustment. After that she would like Pat placed in a fdc care facility in [place] nearer to her home. When Amanda is deemed medically cleared, CM will send a referral to [facility] if deemed appropriate by the provider.. CM will continue to follow and support discharge needs. SDOH(Care Management) Screening Will the Patient Participate in the Screening?: Yes Do you worry about having a steady place to live?: yes In the past 12 months, have you had to go without electric, gas, oil or water in your home?: no Have you or anyone in your house had to go without enough food to eat?: no Has lack of transportation kept you from medical appointments or from doing things needed for daily living?: no Has anyone in your support network made you feel unsafe for any reason?: no Social Determinants of Health Comments(SDOH Details): pt lived in assisted living facility Health Related Social Needs Health related social needs: housing instability, housed, with risk of homelessness(Z59.811)
--- NOTE | 2024-04-04 17:24 | NUR.NOTE ---
Nursing Note: Daily documentation reviewed and agreed with by this typewriter assembler.
--- NOTE | 2024-04-04 18:19 | NUR.NOTE ---
Nursing Note: I accessed this chart as part of an SQSS investigation.
[2024-04-04] MEDS: Melatonin 3 MG TAB PO (19:28)
[2024-04-04] MEDS: traZODone 50 MG TAB 100 MG PO (19:29)
[2024-04-04] MEDS: Divalproex 250 MG TABEC 500 MG PO (19:29)
[2024-04-05] VITALS (8 sets, daily range): BP systolic 107–160; BP diastolic 48–68; PULSE 57–68; RESP 14–18; TEMP 36.2–36.7; O2SAT 92–98
[2024-04-05] MEDS: Levothyroxine 125 MCG TAB PO (06:20)
[2024-04-05 07:26] LABS: Abs Immature Grans 0.02 10^3/uL (0.0-0.06); Absolute Basophil Count 0.03 10^3/uL (0.0-0.2); Absolute Eosinophil Count 0.22 10^3/uL (0.0-0.7); Absolute Lymphocyte Count 1.36 10^3/uL (1.2-3.4); Absolute Monocyte Count 0.46 10^3/uL (0.1-0.8); Absolute Neutrophil Count 3.03 10^3/uL (1.2-6.7); Basophils % 0.6 %; Eosinophils % 4.3 %; HCT 29.6 % (36.0-46.0); HGB 8.9 g/dL (11.2-15.7); Immature Grans % 0.4 %; Lymphocytes % 26.6 %; MCH 27.8 pg (27.0-33.0); MCHC 30.1 % (32.0-36.0); MCV 93 fL (80-95); MPV 10.4 fL (8.0-11.0); Neutrophils % 59.1 %; Platelet Count 244 10^3/uL (130-400); RDW 16.1 % (11.7-14.6); RDW-SD 55.3 fL; WBC 5.12 10^3/uL (4.4-10.8)
[2024-04-05 07:42] LABS: Anion Gap 5.2 mmol/L (3-11); BUN 19 mg/dL (7-18); CO2 29.8 mmol/L (21.0-32.0); CREATININE 1.3 mg/dL (0.55-1.02); Calcium 8.9 mg/dL (8.5-10.1); Chloride 102 mmol/L (98-107); Estimated GFR 41.06 (mL/min/1.73m2); Glucose 84 mg/dL (74-106); Magnesium 2.1 mg/dL (1.8-2.4); Potassium 4.5 mmol/L (3.5-5.1); Sodium 137 mmol/L (136-145)
--- NOTE | 2024-04-05 08:19 | W.CARDCONSUL ---
Date of service: 04/05/24 Time of Service: 08:19 History of Present Illness Narrative: This consultation was requested to discuss whether/when to restart anticoagulation. Be advised that this is not a cardiology question. Patient was hospitalized recently, had a pulmonary embolus for which she was anticoagulated with Eliquis. The etiology of the pulmonary embolus was never determined. She also has a history of what is felt to be cerebral amyloid angiopathy. She was discharged to assisted living, reportedly suffered a fall and then was found to have a right frontal hemorrhage. Anticoagulation was held/reversed. patient has underlying dementia. It is impossible to say if the hemorrhage was related to the fall and trauma or was spontaneous given her cerebral amyloid angiopathy. Questions remain regarding cerebral amyloid angiopathy which by itself is a risk for recurrent intracranial hemorrhage. She would clearly be at elevated risk with resuming anticoagulation in general. It is unclear how much risk she would be at a recurrent pulmonary emboli I would recommend a discussion with palliative care as to risks and benefits of anticoagulation. My personal opinion would be that risk of recurrent cerebral hemorrhage would be higher if anticoagulation is restarted, and this would be more pertinent as to quality of life. It is impossible to quantify risks of recurrent PE. PFSH All Active Problems (Updated 04/04/24 @ 15:43 by Nadia Garcia NP) Urinary tract infection (Acute) Discharge planning issues (Acute) DVT prophylaxis (Acute) Pulmonary embolism (Chronic) Cerebral amyloid angiopathy (Chronic) -2020: possible diagnosis re:brain MRI/ followed by [facility] Dr.Anthony Avalos Scalp laceration (Acute) Anticoagulated (Acute) Constipation (Acute) Fall (Acute) Intracranial hemorrhage (Acute) Recurrent falls (Acute) Alzheimer dementia with psychotic disturbance (Acute) Fall (Acute) Altered mental status (Acute) Osteoarthritis of spine with radiculopathy, lumbar region (Acute) Bladder diverticulum (Acute) Coronary artery calcification seen on CAT scan (Acute) Pancolonic diverticulosis (Acute) Gallstones (Acute) DNR (do not resuscitate) (Acute) See 10/15/2023 COLST: DNI/DNR, + transfer and treat Current chronic use of systemic steroids (Acute) Counseling regarding advance care planning and goals of care (Acute) Palliative care patient (Acute) Abdominal pain (Acute) Callosity (Acute) Nail dystrophy (Acute) Toe pain, left (Acute) Toe pain, right (Acute) Multiple fractures of ribs of right side (Acute) Colostomy status (Chronic) Anterolisthesis of lumbosacral spine (Chronic) Abd/CT 03/2022 Mild degenerative anterolisthesis L5 upon S1 noted as well as vacuum phenomena within the L5-S1 disc space which was not previously present. 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 Patient aware that there is higher than recommended dose. Makes informed decision, drug contract with [facility] Chronic pain syndrome (Chronic) Due to chronic back pain, 08/2021-drug contract at [facility], PMS review,11/2021-urine drug screen Using oxycodone for pain mgmt when taking a shower. 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 She did see surgery down at in 2022. This is a large extensive surgery and they did not think she was a good surgical candidate due to her frailty. GERD (gastroesophageal reflux disease) (Chronic) Urethral caruncle (Chronic) dx by [facility] Gout (Chronic) Rectovaginal fistula (Chronic) Anemia of chronic disease (Chronic) Constipation by delayed colonic transit (Chronic) Urinary retention with incomplete bladder emptying (Chronic) Adrenal insufficiency (Chronic) Iatrogenic secondary to chronic steroid use, on low-dose chronic steroid Primary osteoarthritis of left knee (Chronic 07/30/15) PMR (polymyalgia rheumatica) (Chronic 01/15/16) DX 2016 : /curtis resp. to Prednisone Osteoporosis (Chronic) Bone density scan : 11/2021, managed by [facility], on prolia Obstructive sleep apnea syndrome (Chronic) after closed head injury pt not using CPAP machine Non-alcoholic fatty liver disease (Chronic) persistent elevated AST echo. : hepatic steatosis Memory impairment (Chronic 06/18/94) H/O closed head injury w/ result in memory difficulties, word findig problems Depressive disorder (Chronic) Benign paroxysmal positional vertigo (Chronic) after closed head injury Medical History Hypothyroidism (04/05/12) Chronic renal insufficiency, stage III (moderate) Pulmonary embolism on right Cerebral amyloid angiopathy : possible diagnosis re:brain MRI/ followed by [facility] Dr.Anthony Avalos Visual field loss Anterolisthesis of lumbar spine Multiple fractures of ribs Abdominal pain in female Alzheimer's dementia Brain bleed 05/2021 tx at [facility], intra parenchymal left-sided hemorrhage-treated through [facility] September 2023, new hemorrhagic stroke felt to be secondary to CAA, see ED notes T12 burst fracture Compression fracture of body of thoracic vertebra Palliative care patient Perforation of colon as colonoscopy complication Tuberculosis Insomnia Raynaud's disease Excessive sweating (06/02/16) daytime sweating if >74 degrees/ fatigue normal cbc, spep,echocardiogram,sed.rate,cmp Colon polyp (06/28/18) adenoma colon pollyps-1997; none on subsequent colonoscopies; most recent c-scope in 2005 was normal 2017-adenoma Surgical History S/P rotator cuff repair S/P BSO (bilateral salpingo-oophorectomy) S/P appendectomy S/P hysterectomy S/P kyphoplasty H/O partial resection of colon Sigmoid colon resection 06/28/18 S/P tonsillectomy H/O dilation and curettage Laparoscopic, Ovarian Cystectomy B/L EGD - [facility] (~2003) MILD EROSIVE ESOPHAGITIS, NO PINON'S ON BIOPSY Colonoscopy - [facility] ADENOMA COLON POLYPS 1997, NONE ON MULTIPLE SUBSEQUENT COLONOSCOPIES, MOST RECENT C-SCOPE 2005 WAS NORMAL, 2018 - cecal polyp, diverticulosis Family History Mother , in her 80s from pneumonia Heart disease Pneumonia Father , from complications of prostate surgery in his 80s Stroke Personal history of malignant neoplasm Heart disease Brother , aged 68 Alcohol abuse Cirrhosis with alcoholism Grandfather Essential hypertension Heart disease Grandmother Personal history of malignant neoplasm Stroke Grandmother Personal history of malignant neoplasm Son , from his drinking/SA; her oldest child Alcohol abuse Social History Smoking/Tobacco Use Status: Former Tobacco Use Smoking risk assessment performed?: Yes Alcohol Intake: current Alcohol Intake frequency: holidays/special occasions only Alcohol type: hard liquor Details: HOLIDAYS AND SPECIAL OCCASIONS ONLY Drug use: Never Substance use type: does not use Counseling given: No Household members: other Details: 2 Housing: assisted living facility Do you feel safe at home: No Do you feel safe in your relationship?: No Additional Social history: h/o unsafe relationship with Now live alone at [facility] assisted living in [facility]. Daughter in [place], near where the patient grew up. No other family close History History 6 Para 3 Hx # Term Pregnancies 3 Multiple births Hx # Pregnancies Ectopic pregnancies AB induced Hx Number of Living Children 3 AB spontaneous Results Last Vital Signs Temp 36.7 C 04/05/24 07:29 Pulse 59 L 04/05/24 07:46 Resp 18 04/05/24 07:46 BP 131/63 04/05/24 07:46 Pulse Ox 95 04/05/24 07:29 Labs 04/05/24 06:35 04/05/24 06:35 Labs: Laboratory Results - last 24 hr 04/05/24 06:35 WBC 5.12 RBC 3.20 L Hgb 8.9 L Hct 29.6 L MCV 93 MCH 27.8 MCHC 30.1 L RDW 16.1 H Plt Count 244 MPV 10.4 Immature Gran % 0.4 Neutrophils % 59.1 Lymphocytes % 26.6 Monocytes % 9.0 Eosinophils % 4.3 Basophils % 0.6 Nucleated RBC % 0.0 Absolute Neutrophils 3.03 Absolute Lymphocytes 1.36 Absolute Monocytes 0.46 Absolute Eosinophils 0.22 Absolute Basophils 0.03 Sodium 137 Potassium 4.5 Chloride 102 Carbon Dioxide 29.8 Anion Gap 5.2 BUN 19 H Creatinine 1.3 H Est GFR (CKD-EPI 2020) 41.06 Glucose 84 Calcium 8.9 Magnesium 2.1
[2024-04-05] MEDS: Polyethylene Glycol 3350 17 GM PACKET PO ×2 (08:35→20:28)
[2024-04-05] MEDS: Divalproex 250 MG TABEC PO (08:35)
[2024-04-05] MEDS: DULoxetine 20 MG CAP 40 MG PO (08:35)
[2024-04-05] MEDS: Memantine 5 MG TAB 10 MG PO ×2 (08:35→20:26)
[2024-04-05] MEDS: Ursodiol 300 MG CAP PO ×2 (08:35→20:23)
[2024-04-05] MEDS: Psyllium PKT 1 EACH PO ×2 (08:35→20:29)
[2024-04-05] MEDS: Allopurinol 100 MG TAB PO (08:36)
[2024-04-05] MEDS: Famotidine 20 MG TAB PO ×2 (08:36→20:27)
[2024-04-05] MEDS: Senna TAB 1 TAB PO (08:36)
[2024-04-05] MEDS: QUEtiapine 25 MG TAB PO (08:36)
[2024-04-05] MEDS: Ferrous Gluconate 324 MG TAB PO ×2 (08:36→20:24)
[2024-04-05] MEDS: Lisinopril 10 MG TAB 20 MG PO (08:46)
[2024-04-05] MEDS: Normal Saline Flush 10 ML SYR IVP ×2 (09:07→21:29)
--- NOTE | 2024-04-05 10:21 | PDOC.CMPRO ---
Date of service: 04/05/24 Time of Service: 10:21 Care Management Progress Note Progress Note Text Progress Note Text: Amanda was sitting up in the bedside chair, eating her lunch, when CM met with her earlier today. She was pleasant and easily engaged. She denied any complaints, except that she had just spilled her soda. CM let Amanda know that Dr. Johnson from Palliative Care is planning to see her this afternoon. 2 phone calls were made to daughter, China, to let her know about the palliative care visit, but she was unable to be reached. Amanda was walking to the bathroom today, with BOOKKEEPER, and her knees gave out. She was lowered to the floor without incident. Her daughter was notified, and precautionary x ray of hips and pelvis were negative for fracture. Discharge Potential Discharge Needs: Other (may be referred to a geriatric psychiatric facility for medication adjustment once medically cleared) Anticipated Barriers to Discharge: Bed availability Patient/Family Education Needs: Review discharge instructions, discuss Ask Me Three Transportation: Other (to be determined by disposition) Plan: Anticipate Amanda's discharge plan will be complicated. She has sustained a brain bleed presumably from a fall. At baseline she has dementia and mental health issues so monitoring the effects of the bleed will be even more challenging. Her daughter China would like her to go to [facility] for evaluation and possible medication adjustment. After that she would like Pat placed in a buttermaker care facility in [place]. nearer to her home. When Pat is deemed medically cleared, CM will send a referral to [facility] today. CM will continue to follow and support discharge needs. SDOH(Care Management) Screening Will the Patient Participate in the Screening?: Yes Do you worry about having a steady place to live?: yes In the past 12 months, have you had to go without electric, gas, oil or water in your home?: no Have you or anyone in your house had to go without enough food to eat?: no Has lack of transportation kept you from medical appointments or from doing things needed for daily living?: no Has anyone in your support network made you feel unsafe for any reason?: no Social Determinants of Health Comments(SDOH Details): pt lived in assisted living facility Health Related Social Needs Health related social needs: housing instability, housed, with risk of homelessness(Z59.811)
--- NOTE | 2024-04-05 11:19 | NUR.NOTE ---
Nursing Note: At approximately 0740 SENIOR CARE MANAGER was assisting pt to transfer to chair. Per SENIOR CARE MANAGER; Pt sat at edge of bed and waited prior to ambulation. Pt stood up, took about 4 steps until their right knee gave out. SENIOR CARE MANAGER lowered pt to floor and reports pt head did not hit floor. No apparent injuries. MD notified, nursing security supervisor notified, Daughter ([place]) notified by phone, pharmacy notified to do medication review. Pt remains baseline. Will continue to monitor
--- NOTE | 2024-04-05 11:37 | PGE_ITS ---
Date of Service Date of service: 04/05/24 Time of Service: 11:39 Assessment and Plan Assessment and plan (1) Urinary tract infection: Status: Acute Assessment and plan: urine culture growing enterococcus faecalis treated with fosfomycin (2) Intracranial hemorrhage: Status: Acute Assessment and plan: DNR/DNI with no intention for acute intervention in the event that she has a massive intracerebral bleed. serial CT scans of the head stable. Patient is in a room near nurses station with alarms on 100% of the time Etiology of her pulmonary embolism was never determined. Given her history of dementia and frequent falls she is a high risk to resume anticoagulation. Given her prior history of cerebral amyloid even without the fall she would be at higher risk for recurrent cerebral bleeds. Clinically she is asymptomatic for the pulmonary embolism with no dyspnea, oxygen requirements or chest discomfort. I discussed with [place] [facility] and they recommended another CT of the head to assess the status of the bleed. CT result is pending. I have a call in to vascular surgery to get them to weigh in on the resumption of apixaban. That is pending. Cardiology - risk of recurrent cerebral hemorrhage would be higher if anticoagulation is restarted, and this would be more pertinent as to quality of life. It is impossible to quantify risks of recurrent PE. See note Palliative consulted to discuss with family goals of care - see their note (3) Alzheimer dementia with psychotic disturbance: Status: Acute Assessment and plan: Continue recommended adjustment in her Depakote and as needed use of Seroquel. Continue scheduled doses of Seroquel 50 mg. Monitor for behavioral changes. Qualifiers: Alzheimer's disease onset: late onset Dementia severity: severe Qualified Code(s): G30.1 - Alzheimer's disease with late onset; F02.C2 - Dementia in other diseases classified elsewhere, severe, with psychotic disturbance (4) Recurrent falls: Status: Acute Assessment and plan: PT consult Her legs became weak and was assisted to the floor by RELATIONS MGR, no injury, did not hit her head. She did c/o of buttock pain - xray of the pelvis negative. Tylenol for pain (5) Constipation: Status: Acute Assessment and plan: continue miralax continue metamucil, continue senna Qualifiers: Constipation type: drug induced constipation Qualified Code(s): K59.03 - Drug induced constipation (6) Visual field loss following cerebrovascular accident: Status: Chronic Assessment and plan: Chronic (7) Cerebral amyloid angiopathy: Status: Chronic (8) Scalp laceration: Status: Acute Assessment and plan: primary closure done in the ED, now local wound care keeping clean maame to be removed 04/08/24 Qualifiers: Encounter type: initial encounter Qualified Code(s): S01.01XA - Laceration without foreign body of scalp, initial encounter (9) Pulmonary embolism: Start date: 03/20/24 Status: Chronic Assessment and plan: right sided PE involving RML, RLL, s/p treatment w/ apixaban now w/ complications of right frontal lobe intraparenchymal cerebral bleeding d/t trauma. She has had her anticoagulation reversed d/t slightly increasing focus of bleeding. Clinically she is stable but needs monitoring. Repeat CT head stable. will need to discuss need for future anticoagulation and timing of when optimal safe to restart. Anticipate 7 to 14 days, but will defer to neurosurg. Given her prior cerebral bleed from cerebral amyloid and her dementia and falls, she is high risk for rebleed. bilateral DVT studies negative. Clinically she is asymptomatic for the pulmonary embolism with no dyspnea, oxygen requirements or chest discomfort. I discussed with neurosurgery [place] [facility] and they recommended another CT of the head to assess the status of the bleed. CT result is pending. I have a call in to vascular surgery to get them to weigh in on the resumption of apixaban. That is pending. Cardiology - risk of recurrent cerebral hemorrhage would be higher if anticoagulation is restarted, and this would be more pertinent as to quality of life. It is impossible to quantify risks of recurrent PE. See note Palliative consulted to discuss with family goals of care - see their note Qualifiers: Pulmonary embolism type: multiple subsegmental (without acute cor pulmonale) Qualified Code(s): I26.94 - Multiple subsegmental pulmonary emboli without acute cor pulmonale (10) DVT prophylaxis: Status: Acute Assessment and plan: contraindicated in setting of acute cerebral hemorrhage carl stockings (11) Discharge planning issues: Status: Acute Assessment and plan: case management following for discharge planning discussed with Dr. Ferguson Subjective Subjective Patient reports: no new complaints, tolerating liquids well, tolerating a regular diet, voiding w/o difficulty (indwelling urinary catheter), bowel movement (colostomy - soft liquid stool) and afebrile; denies flatus, diarrhea, nausea or vomiting Exam Const General: cooperative, comfortable and no acute distress Nutritional Appearance: average body habitus Orientation: alert, awake and oriented to person [facility] Head: normal to inspection, normocephalic and laceration (staple intact) Face and sinus: normal facial exam Mouth: oral mucosae normal Neck Neck: normal visual inspection and full ROM Chest Chest: normal inspection of the chest Resp Effort & Inspection: normal respiratory effort Cardio Rate: regular rate Rhythm: regular rhythm GI Inspection: normal to inspection Palpation: soft, no guarding and other (ostomy intact, draining soft/liquid stool ) Skin General skin exam: no rashes or lesions noted Neuro General: patient alert and patient awake Motor: muscle tone normal throughout Extrem General: normal to inspection, full ROM and no pedal edema Psych Affect: blunted Objective Last Vital Signs Temp 36.4 C L 04/05/24 10:17 Pulse 68 04/05/24 10:17 Resp 18 04/05/24 10:17 BP 133/52 L 04/05/24 10:17 Pulse Ox 93 04/05/24 10:17 Laboratory Results - last 24 hr 04/05/24 06:35 WBC 5.12 RBC 3.20 L Hgb 8.9 L Hct 29.6 L MCV 93 MCH 27.8 MCHC 30.1 L RDW 16.1 H Plt Count 244 MPV 10.4 Immature Gran % 0.4 Neutrophils % 59.1 Lymphocytes % 26.6 Monocytes % 9.0 Eosinophils % 4.3 Basophils % 0.6 Nucleated RBC % 0.0 Absolute Neutrophils 3.03 Absolute Lymphocytes 1.36 Absolute Monocytes 0.46 Absolute Eosinophils 0.22 Absolute Basophils 0.03 Sodium 137 Potassium 4.5 Chloride 102 Carbon Dioxide 29.8 Anion Gap 5.2 BUN 19 H Creatinine 1.3 H Est GFR (CKD-EPI 2020) 41.06 Glucose 84 Calcium 8.9 Magnesium 2.1 Time Spent with Patient Time Spent with Patient: 35-49 minutes Time was spent: preparing to see the patient(eg.review tests), ordering medications,tests, procedures, referring, communicating with other health medicare specialist, indepentently interpreting results, counseling the patient and care coordination
[2024-04-05] MEDS: fentaNYL 12 MCG PATCH TD (11:59)
--- NOTE | 2024-04-05 12:35 | PHA.REVIEW2 ---
Pharmacy Admission Review Admission Clinical Review Admission Pharmacy Review: Urinary tract infection (Acute) Discharge planning issues (Acute) DVT prophylaxis (Acute) Scalp laceration (Acute) Constipation (Acute) Intracranial hemorrhage (Acute) Recurrent falls (Acute) Alzheimer dementia with psychotic disturbance (Acute) Counseling regarding advance care planning and goals of care (Acute) Palliative care patient (Acute) banana Allergy (Intermediate, Verified 03/31/24 11:51) Other (See Comment) cucumber Allergy (Intermediate, Verified 03/31/24 11:51) Other (See Comment) Iodinated Contrast Media Allergy (Intermediate, Unverified 03/31/24 11:51) Anaphylaxis chloramphenicol Adverse Reaction (Severe, Verified 03/31/24 11:51) KIDNEY FAILURE tetracycline Adverse Reaction (Severe, Verified 03/31/24 11:51) KIDNEY FAILURE melon Adverse Reaction (Intermediate, Verified 03/31/24 11:51) Cantaloupe-Abd pain, diarrhea donepezil Adverse Reaction (Unverified 03/31/24 11:51) Cardiac Dysrhythmia ADHESIVE TAPE Allergy (Intermediate, Uncoded 03/31/24 11:51) takes skin off SUTURE MATERIAL Allergy (Intermediate, Uncoded 03/31/24 11:51) Purluent Drainage Resuscitation Status DNR/DNI Height 4 ft 11 in Weight 72 kg Pharmacy Admission Review Renal Dosing Renal Dosing: BUN 19 mg/dL (7-18) H 04/05/24 06:35 Creatinine 1.3 mg/dL (0.55-1.02) H 04/05/24 06:35 Medications needing adjustments: Reviewed (CrCl 37.4 mL/min, BUN decreased from 20, SCr increased from 1.2) List of meds needing interventions: Current medications are okay Anticoagulation Anticoagulation: Hgb 8.9 g/dL (11.2-15.7) L 04/05/24 06:35 Hct 29.6 % (36.0-46.0) L 04/05/24 06:35 Plt Count 244 10^3/uL (130-400) 04/05/24 06:35 Creatinine 1.3 mg/dL (0.55-1.02) H 04/05/24 06:35 DVT Prophylaxis: Reviewed (SCDs/TEDs - cerebral hemorrhage, Hgb increased from 8.6) Opiate Usage Evaluate Pain Scale/Pains Meds: Reviewed (12mcg fentanyl patch) Scheduled Bowel Reg ordered if on Opiates?: Yes (Miralax/Senna) Relevant Labs Relevant Labs: Sodium 137 mmol/L (136-145) 04/05/24 06:35 Potassium 4.5 mmol/L (3.5-5.1) 04/05/24 06:35 Chloride 102 mmol/L (98-107) 04/05/24 06:35 Magnesium 2.1 mg/dL (1.8-2.4) 04/05/24 06:35 Electrolytes, C-Reactive P, ESR: Reviewed Cardiac Review Cardiac Review: Blood Pressure 133/52 1017 Blood Pressure 128/58 0909 Blood Pressure 131/63 0746 Blood Pressure 123/48 0729 Blood Pressure 113/63 0320 BP, HR, EF%: Reviewed (HR WNL) List meds needing interventions: Patient is on lisinopril 20mg daily QTc Review QTc: Reviewed (513 from 03/20/24) IV to PO Switch IV Medications: Reviewed Home Meds Home Med List reviewed: Intervened Relevent Home Meds Not ordered & why?: Eliquis (on hold due to hemorrhage), cyclobenzaprine (PRN), lidocaine patch (PRN), Narcan (PRN), oxycodone (PRN) Patients home med list currently has quetiapine 25mg daily, but a prescription was recently filled (03/29) for quetiapine 50mg daily. I called nursing who stated that it was increased last week to 50mg when patient was in ED and had telehealth appointment. Updated home med list and reached out to provider. Waiting to hear back. Current Meds Current Medication Order Review: Reviewed Comments: Urine culture was positive for E. faecalis. Patient received a 1 time dose of fosfomycin on 04/03/24
--- NOTE | 2024-04-05 12:58 | PT.INTREAT ---
PT Notes Visit Reasons: cerebral hemorrhage Inpatient Physical Therapy Treatment Note [facility] Date: 04-05-2024 PRECAUTIONS:fall risk, standard, colostomy, fajardo catheter SUBJECTIVE: Patient reports she is hungry. she denied pain in her right knee OBJECTIVE: Patient awake supine in bed with bed alarm in place. Nursing reports episode of need to be lowered to the floor by SATELLITE TECHNICIAN during transfer in the morning. At the time patient reported her right knee buckled.? PAIN: Patient denied pain although some facial grimacing during supine to sit VITALS: ?133/52 pulse 68 Therapeutic Activities (09187): Direct one-on-one instruction in dynamic activities to improve functional performance. ? BED MOBILITY/TRANSFERS? Rolling L/R: CGA with use of rails and increased time Supine-sit: Min assist for trunk? Sit-stand: CGA x 4 trials with cues to push up from surface? Stand-sit: CGA x 4 trials with cues to reach back prior to sitting? Bed-Chair: Min assist with 4 wheeled walker assist for walker management ? Chair-chair: Min assist with 4 wheeled walker assist for walker management x 4 trials Provided skilled cues and instruction on performance and technique throughout. Ambulation ? Assistive Device: 4WW ? Weight bearing: As tolerated Assist: Min assist? Distance: 25 feet x 2? Deviation: Decreased step length BLE right>Left , decreased step height BLE right greater than left, increased forward flexion of trunk , difficulty managing 4 wheeled walker, ASSESSMENT: Patient demonstrates decreased right lower extremity stability as compared to initial evaluation with decreased tolerance to ambulation. Attempted to trial FWW however due to patient's cognitive impairment she was unable to focus on task without her personal four-wheel walker. Patient demonstrates decreased ability to manage 4 wheeled walker as compared to initial evaluation. PLAN:Continued skilled PT for strengthening, balance retraining, transfers, ambulation with least restrictive device TREATMENT CODE/TIME: First session: [id number] DISCHARGE RECOMMENDATION: SNF versus home with PT
--- NOTE | 2024-04-05 13:07 | DI.RAD_ITS ---
Exam(s) XR PELVIS AP EXAM: XR PELVIS AP CLINICAL HISTORY: Fall onto buttock. TECHNIQUE: 2D digital imaging was performed. COMPARISON: CR,XR XR HIP LT COMPLETE AP PELVIS from 03/20/2024 FINDINGS: Single AP view. Left-sided colostomy bag noted. No evidence of pelvic nor obvious hip fracture. Evidence of left inguinal hernia surgery again noted . Moderate degenerative changes in both hips again evident.. IMPRESSION: No fractures evident. If there is high suspicion for fracture despite normal x-rays than either foll ow-up CT or MRI can be performed for added sensitivity. DATA REPOSITORY: RADIATION DOSE DELIVERED:
--- NOTE | 2024-04-05 14:15 | W.PALPGNOTE ---
Date of service: 04/05/24 Time of Service: 14:15 Assessment and Plan Assessment and plan (1) Intracranial hemorrhage: Status: Acute Assessment and plan: See HPI for full goals of care discussion with daughter China. China looks forward to meeting with hospitalist tomorrow to hear about findings from phone calls with vascular surgery, neurosurgery, neurology and cardiology. She seems to understand that there is a very complex risks/benefit calculation, with lots of unknowns. China feels that her mom having another stroke or intracranial bleed would be the worst thing. Supportive counseling around the uncertainty of the situation. I commended China on her decision to take time off from work to attend to her parents affairs and help with her mom. She may be requesting FMLA forms to be completed by staff. Hospital team may consider the following possibilities: -Unfortunately we have no access to neurological consultation for inpatients. Once patient is on the swing bed or if she is transferred to local E[facility]/SNF (after presumed [facility] stay), I think it would be helpful for patient to meet again with Dr. Potter, with daughter China present in person or by phone to review things again. -The relative risks and benefits of anticoagulation will likely change as the patient's clinical status change. As far as we know, patient does not have a malignancy (she has been scan from stem to gay several times recently, the possible mass behind her clavicle is reportedly stable and x-ray report felt it was most likely a blood vessel). As she gets farther away from diagnosis of PE, benefits of anticoagulation decrease. However her CAA will persist as well as her frequent falls. I think it would be helpful to get both a outpatient neurological consult and potentially a hematology consult (thrombophilia evaluations at [facility] are done by special hematology department group, I am [place] who [place] [facility] But this is contingent upon where patient goes after her hospital stay here, and whether or not China thinks her mother's quality of life would ultimately benefit from this evaluation. Future medical providers will continue to reevaluate relative risks and benefits of anticoagulation going forward. -Looking back at several consult notes going back 6 months, patient has seemed quite eloquent, pleasant, during these visits. Several medical providers seem to feel that she had capacity and asked patient to make complex decisions. It appears that China was not present to help with supported decision making, despite the fact that it is unlikely that Pat had the capacity to make more difficult medical decisions in those situations at those times. I recommend going forward that medical providers make sure to keep healthcare agent/daughter China involved. This can be in person when she is can; otherwise she can attend via telephone or video. I do not think patient has capacity to make any more than the most simple decisions at this point. -China welcomes continued support from the palliative care team. We are happy to follow-up with patient and her daughter as needed for the remainder of her acute hospitalization. We would like to reengage with them after her [facility] stay, if she returns to this area (swing bed at [facility] or local SNF). China continues to hope that after her [facility] stay they will be able to find suitable SNF/[facility] placement for her mother Amanda closer to where she lives in [place]. My involvement with patient today include discussion with hospitalist, case management, further review of past notes including September neurology consult, in addition to meeting with daughter, brief visit with patient in room (she was sleeping) and documentation. (2) Alzheimer dementia with psychotic disturbance: Status: Acute Qualifiers: Alzheimer's disease onset: late onset Dementia severity: severe Qualified Code(s): G30.1 - Alzheimer's disease with late onset; F02.C2 - Dementia in other diseases classified elsewhere, severe, with psychotic disturbance (3) Recurrent falls: Status: Acute (4) Counseling regarding advance care planning and goals of care: Status: Acute (5) Palliative care patient: Status: Acute Assessment and plan: 16 to 30 minutes spent today on Advance Care Planning. Patient and family participated voluntarily. Advance care planning may include (not limited to) explanation and discussion of advance directives, choosing and appointing healthcare agents, alternatives to various ACP tools, discussion of (and if indicated, completion of) COLST form, discussion of patient's values and overall goals for treatment, palliative and disease directive care options, ways to avoid hospital readmission including hospice discussions, care preferences should the patient's several other adverse health events.See today's palliative care note for additional information. This note was dictated using speech recognition software. Attempt was made at proofreading, but errors may be present. Please call with questions. (6) Cerebral amyloid angiopathy: Status: Chronic Subjective Subjective Interval history since last seen: Please see March 31, 2024 palliative care note for complete history. Hospital team requested that I meet with daughter China today to review goals of care and using this information, explain conundrum of whether or not to resume anticoagulation for recent diagnosis of pulmonary embolus in light of history of recurrent small hemorrhagic strokes due to both cerebral amyloid angiopathy and/or falls. Hospitalist Nadia Garcia NP was hoping to have been able to have phone consultations with vascular surgery (in addition to today's consult with cardiology, and phone call earlier today with neurosurgery and neurology) in order to make best recommendation regarding whether or not to resume anticoagulation. Unfortunately specialist had not returned her phone calls. I was fortunate to be able to meet in person with China Benitez, Ms. Manuel's daughter and healthcare agent. China lives in [place] and has been traveling to [place] every 1 to 2 weeks to visit her mom and manage her affairs. Since I last spoke on the phone with China, she has decided to take a short leave of absence to spend more time with her mother and prepare her parent's house for sale, and spend more time with her mom. Today Shahana spoke separately with case management Danuta Donahue. Ms. Garcia was unable to meet with us. We began with reviewing patient's clinical course over the last 3 to 4 weeks. China extended this over the last 6 months. She reiterated that her mom is declined significantly since last July and appears to be declining even more so over the last 4 to 6 weeks with increased agitation and difficult behaviors, as discussed him my previous note. China's goal for her mom is for her to be as comfortable as possible and stay in a safe place. She does not want to subject her to too many tests or procedures. But would consent to any tests or relatively no invasive procedures that could improve her quality of life. Hospital staff feels that patient is now clinically stable and can be transferred to [facility] if she is excepted there. China continues to feel that this is a good option for her mom, to make things as good as possible for her . China asked to review her current medications and we looked back in the [facility] chart to see what medication she has been on over the last 9 months and what dosing. China was unaware that her mom had seen Dr. Potter in consultation. We reviewed the consult note and questions were answered. We had a lengthy discussion on cerebral amyloid angiopathy (CAA). Additionally, I referred China to patient information website regarding CAA on line and wrote down this correct spelling. China pointed out that her mom appeared to have multiple symptoms of this. Patient has now had multiple events related to this diagnosis. Explained that given she has had several small hemorrhages and shows chronic findings suggestive of CAA on head imaging, it is likely she will continue to have further intracranial hemorrhages. However we cannot predict whether she will have another 1 in a few weeks or in a few years. She may also have some Alzheimer's disease as well. Additionally, China is concerned that her mom seems so sleepy the last few days. She was concerned that she was getting sedatives. Review of meds given over the last few days shows no addition of sedating drugs to her preadmission med list. Objective Last Vital Signs Temp 36.4 C L 04/05/24 10:17 Pulse 68 04/05/24 10:17 Resp 18 04/05/24 10:17 BP 133/52 L 04/05/24 10:17 Pulse Ox 93 04/05/24 10:17 Laboratory Results - last 24 hr 04/05/24 06:35 WBC 5.12 RBC 3.20 L Hgb 8.9 L Hct 29.6 L MCV 93 MCH 27.8 MCHC 30.1 L RDW 16.1 H Plt Count 244 MPV 10.4 Immature Gran % 0.4 Neutrophils % 59.1 Lymphocytes % 26.6 Monocytes % 9.0 Eosinophils % 4.3 Basophils % 0.6 Nucleated RBC % 0.0 Absolute Neutrophils 3.03 Absolute Lymphocytes 1.36 Absolute Monocytes 0.46 Absolute Eosinophils 0.22 Absolute Basophils 0.03 Sodium 137 Potassium 4.5 Chloride 102 Carbon Dioxide 29.8 Anion Gap 5.2 BUN 19 H Creatinine 1.3 H Est GFR (CKD-EPI 2020) 41.06 Glucose 84 Calcium 8.9 Magnesium 2.1 Objective Narrative Objective Narrative: I walked by patient's room twice during my visit. Both times she was sleeping quietly on her side in no distress with no oxygen on.
--- NOTE | 2024-04-05 15:50 | PT.INNT ---
PT Notes Visit Reasons: cerebral hemorrhage Patient was agreeable to working with PT but Nurse Webster indicated that patient needed to be transported to the lab for CT scan. PT offered to help with transfers from bed to stretcher to assess whether patient will benefit from a brace to the R knee. Patient however needed to be cleaned first as PT found her colostomy bag may have been overfilled and inadvertently was detached from her skin. Nurse Webster and Nurse Green took over and further PT session was deferred.
--- NOTE | 2024-04-05 16:45 | DI.CT_ITS ---
Exam(s) CT HEAD WO EXAM: CT HEAD WO CLINICAL HISTORY: Previous head bleed - checking status. TECHNIQUE: Imaging Protocol: Axial computed tomography images with coronal and sagittal reformatted images were created and reviewed COMPARISON: CT CT HEAD WO from 04/01/2024 FINDINGS: Ventricles and Extra axial spaces: Normal in size and morphology for the patient's age. Hemorrhage: Previously noted right frontal cortical focal hemorrhage is similar size but less dense w hen compared with prior. No new areas of hemorrhage. Cerebral parenchyma: No evidence of acute infarct or mass. Old left occipital infarct. White matter changes of small vessel disease. Midline shift: None. Brainstem/Cerebellum: Normal. Calvarium: Normal. Visualized Paranasal sinuses:Clear. Mastoids: Clear. Soft Tissues: Scalp maame again noted posteriorly. ORBITS: Unremarkable. PITUITARY: Not enlarged. IMPRESSION: Focal right frontal hemorrhage is beginning to resolve. RADIATION DOSE DELIVERED: Total DLP DATA REPOSITORY: All CT scans at this facility are submitted to the National Radiology Data Registry (NRDR) Dose Index Registry (DIR) with the [employer] (ACR). RADIATION OPTIMIZATION: All CT scans at this facility use at least one of these dose optimization te chniques: automated exposure control; mA and/or kV adjustment per patient size (includes targeted exa ms where dose is matched to clinical indication); or iterative reconstruction.
--- NOTE | 2024-04-05 18:06 | NUR.NOTE ---
Nursing Note:Daily documentation reviewed and is in agreement with this scientific writer.
[2024-04-05] MEDS: Divalproex 250 MG TABEC 500 MG PO (20:25)
[2024-04-05] MEDS: traZODone 50 MG TAB 100 MG PO (20:26)
[2024-04-05] MEDS: QUEtiapine 25 MG TAB 12.5 MG PO (20:27)
[2024-04-05] MEDS: Melatonin 3 MG TAB PO (20:27)
[2024-04-06] VITALS (8 sets, daily range): BP systolic 104–154; BP diastolic 38–63; PULSE 56–74; RESP 14–18; TEMP 36.1–36.8; O2SAT 90–96
[2024-04-06] MEDS: Levothyroxine 125 MCG TAB PO (06:59)
[2024-04-06 07:02] LABS: Abs Immature Grans 0.03 10^3/uL (0.0-0.06); Absolute Basophil Count 0.02 10^3/uL (0.0-0.2); Absolute Eosinophil Count 0.25 10^3/uL (0.0-0.7); Absolute Monocyte Count 0.64 10^3/uL (0.1-0.8); Absolute Neutrophil Count 3.73 10^3/uL (1.2-6.7); Basophils % 0.3 %; Eosinophils % 3.9 %; HCT 31.2 % (36.0-46.0); HGB 9.6 g/dL (11.2-15.7); Immature Grans % 0.5 %; Lymphocytes % 26.7 %; MCH 27.9 pg (27.0-33.0); MCHC 30.8 % (32.0-36.0); MCV 91 fL (80-95); MPV 11.6 fL (8.0-11.0); Neutrophils % 58.6 %; Platelet Count 219 10^3/uL (130-400); RBC 3.44 10^6/uL (3.93-5.22); RDW-SD 53.3 fL; WBC 6.37 10^3/uL (4.4-10.8)
[2024-04-06 07:12] LABS: Anion Gap 6.4 mmol/L (3-11); BUN 17 mg/dL (7-18); CO2 24.6 mmol/L (21.0-32.0); CREATININE 1.1 mg/dL (0.55-1.02); Calcium 9.2 mg/dL (8.5-10.1); Chloride 103 mmol/L (98-107); Estimated GFR 50.17 (mL/min/1.73m2); Glucose 80 mg/dL (74-106); Sodium 134 mmol/L (136-145)
--- NOTE | 2024-04-06 09:11 | CMPROGNOTE_ITS ---
Date of service: 04/06/24 Time of Service: 09:12 Care Management Progress Note Progress Note Text Progress Note Text: Once again, Pat was dozing when CM went to see her. She had received an extra dose of Seroquel today and was somnolent much of the day. PT attempted to work with her 3 times this morning and twice this afternoon, however she was too groggy to participate. A final decision has not been made regarding restarting Pat's apixaban. The provider spoke to [facility] today who advised that it would be safe to restart the medication 7 days after the cerebral bleed which occurred on 03/30/24. Cardiology noted that restarting apixaban would increase the risk of recurrent cerebral bleeding. Vascular surgery has yet to weigh in so no definitive action has been taken. Discharge Potential Discharge Needs: PCP F/U Appt Anticipated Barriers to Discharge: Bed availability Patient/Family Education Needs: Review discharge instructions, discuss Ask Me Three Transportation: Other (to be determined by disposition) Plan: When Pat is medically cleared CM will send a referral to [facility] at her daughter China's request. If she is not accepted to [facility], efforts will begin to find terminal supervisor placement. CM will follow and continue to assess for discharge needs. SDOH(Care Management) Screening Will the Patient Participate in the Screening?: Yes Do you worry about having a steady place to live?: yes In the past 12 months, have you had to go without electric, gas, oil or water in your home?: no Have you or anyone in your house had to go without enough food to eat?: no Has lack of transportation kept you from medical appointments or from doing things needed for daily living?: no Has anyone in your support network made you feel unsafe for any reason?: no Social Determinants of Health Comments(SDOH Details): pt lived in assisted living facility Health Related Social Needs Health related social needs: housing instability, housed, with risk of homelessness(Z59.811)
[2024-04-06] MEDS: Psyllium PKT 1 EACH PO ×2 (09:18→20:38)
[2024-04-06] MEDS: Divalproex 250 MG TABEC PO (09:19)
[2024-04-06] MEDS: Ferrous Gluconate 324 MG TAB PO ×2 (09:19→20:39)
[2024-04-06] MEDS: DULoxetine 20 MG CAP 40 MG PO (09:19)
[2024-04-06] MEDS: Memantine 5 MG TAB 10 MG PO ×2 (09:19→20:39)
[2024-04-06] MEDS: Famotidine 20 MG TAB PO ×2 (09:19→20:39)
[2024-04-06] MEDS: Allopurinol 100 MG TAB PO (09:19)
[2024-04-06] MEDS: Ursodiol 300 MG CAP PO ×2 (09:19→20:39)
[2024-04-06] MEDS: Polyethylene Glycol 3350 17 GM PACKET PO ×2 (09:20→20:38)
[2024-04-06] MEDS: Lisinopril 10 MG TAB 20 MG PO (09:20)
[2024-04-06] MEDS: Senna TAB 1 TAB PO (09:20)
[2024-04-06] MEDS: Normal Saline Flush 10 ML SYR IVP ×2 (09:22→20:40)
--- NOTE | 2024-04-06 12:22 | NUR.NOTE ---
Patient appears to have increase drowsiness after AM dose of Seroquel. Notified Zunilda BARLOW provider, requesting change to dose and or time. Provider states may DC am dose and decrease PM dose of seroquel. Also will try voiding trial once more alert. Patient resting in bed at this time. VSS. AP RN Nursing Note:
--- NOTE | 2024-04-06 15:11 | NUR.NOTE ---
Printing Estimator went in to assess patient, patient sleeping in bed. promotion writer woke patient up and patient stated what im trying to sleep, patient then proceeded to ignore promotion writer and go back to sleep. AP RN Nursing Note:
--- NOTE | 2024-04-06 15:19 | PT.INNT ---
PT Notes Visit Reasons: cerebral hemorrhage Pt approached x 3 in morning and x 2 in the afternoon. Pt difficult to arouse and would not open eyes. Nurse reports pt has been in bed all day d/t impaired level of alertness. Will attempt PT next day
--- NOTE | 2024-04-06 15:33 | PGE_ITS ---
Date of Service Date of service: 04/06/24 Time of Service: 15:33 Assessment and Plan Assessment and plan (1) Altered mental status: Status: Acute Assessment and plan: more sedate after receiving increased dose of seroquel this morning. will discontinue responding more as day has progressed. low threshold to rescan head if symptoms don't continue to improve. (2) Urinary tract infection: Status: Acute Assessment and plan: urine culture grew enterococcus faecalis treated with fosfomycin (3) Intracranial hemorrhage: Status: Acute Assessment and plan: DNR/DNI with no intention for acute intervention in the event that she has a massive intracerebral bleed. serial CT scans of the head stable. Patient is in a room near nurses station with alarms on 100% of the time Etiology of her pulmonary embolism was never determined. Given her history of dementia and frequent falls she is a high risk to resume anticoagulation. Given her prior history of cerebral amyloid even without the fall she would be at higher risk for recurrent cerebral bleeds. Clinically she is asymptomatic for the pulmonary embolism with no dyspnea, oxygen requirements or chest discomfort. discussed with neurosurgery Dr Reyes at [facility], repeat CT shows resolving bleed. they recommend that we could restart anticoagulation after 7 days from head injury. pending vascular surgery weigh in on the resumption of apixaban. Cardiology - risk of recurrent cerebral hemorrhage would be higher if anticoagulation is restarted, and this would be more pertinent as to quality of life. It is impossible to quantify risks of recurrent PE. See note Palliative consulted to discuss with family goals of care - see their note (4) Alzheimer dementia with psychotic disturbance: Status: Acute Assessment and plan: Continue recommended adjustment in her Depakote and as needed use of Seroquel. Continue scheduled doses of Seroquel 50 mg. Monitor for behavioral changes. Qualifiers: Alzheimer's disease onset: late onset Dementia severity: severe Qualified Code(s): G30.1 - Alzheimer's disease with late onset; F02.C2 - Dem entia in other diseases classified elsewhere, severe, with psychotic disturbance (5) Recurrent falls: Status: Acute Assessment and plan: PT consult Her legs became weak and was assisted to the floor by ENGINEERING EQUIPMENT OPERATOR, no injury, did not hit her head. She did c/o of buttock pain - xray of the pelvis negative. 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 She has had her anticoagulation reversed d/t slightly increasing focus of bleeding. Clinically she is stable but needs monitoring. Repeat CT head stable. safe to restart. 7 days per neurosurg. Given her prior cerebral bleed from cerebral amyloid and her dementia and falls, she is high risk for rebleed. bilateral DVT studies negative. Clinically she is asymptomatic for the pulmonary embolism with no dyspnea, oxygen requirements or chest discomfort. Palliative consulted to discuss with family goals of care - Qualifiers: Pulmonary embolism type: multiple subsegmental (without acute cor pulmonale) Qualified Code(s): I26.94 - Multiple subsegmental pulmonary emboli without acute cor pulmonale (11) DVT prophylaxis: Status: Acute Assessment and plan: contraindicated in setting of acute cerebral hemorrhage carl stockings (12) Discharge planning issues: Status: Acute Assessment and plan: case management following for discharge planning discussed with Dr. Ferguson Subjective Subjective Interval history since last seen: sedate today after receiving increased dose of seroquel. Objective Last Vital Signs Temp 36.6 C 04/06/24 15:29 Pulse 60 04/06/24 15:29 Resp 14 04/06/24 15:29 BP 104/46 L 04/06/24 15:29 Pulse Ox 90 L 04/06/24 15:29 Laboratory Results - last 24 hr 04/06/24 06:10 WBC 6.37 RBC 3.44 L Hgb 9.6 L Hct 31.2 L MCV 91 MCH 27.9 MCHC 30.8 L RDW 16.0 H Plt Count 219 MPV 11.6 H Immature Gran % 0.5 Neutrophils % 58.6 Lymphocytes % 26.7 Monocytes % 10.0 Eosinophils % 3.9 Basophils % 0.3 Nucleated RBC % 0.0 Absolute Neutrophils 3.73 Absolute Lymphocytes 1.70 Absolute Monocytes 0.64 Absolute Eosinophils 0.25 Absolute Basophils 0.02 Sodium 134 L Potassium 5.0 Chloride 103 Carbon Dioxide 24.6 Anion Gap 6.4 BUN 17 Creatinine 1.1 H Est GFR (CKD-EPI 2020) 50.17 Glucose 80 Calcium 9.2 Magnesium 2.0 Time Spent with Patient Time Spent with Patient: 35-49 minutes Time was spent: preparing to see the patient(eg.review tests), obtaining and/or reviewing separately otained hiistory, ordering medications,tests, procedures, indepentently interpreting results and counseling the patient
--- NOTE | 2024-04-06 16:03 | NUR.NOTE ---
Patient BP noted to be low. RN assessed patient. Manual BP taken, 102/32, MD Ferguson notifed, he requested Q15-30 min VS rechecks for an hour. AP RN Nursing Note:
[2024-04-06] MEDS: Lactated Ringers 500 ML IV (16:16)
--- NOTE | 2024-04-06 19:08 | WOUNDCONS_ITS ---
Date of service: 04/06/24 Time of Service: 19:00 Wound Initial Evaluation Narrative Narrative: Elderly woman from [facility] who experiences falls frequently. She is aware that she is in the hospital after falling. Is able to give verbal consent but does not have the strength to sign the form for photos of her wound. Is unable to tell me the details of her fall but does have ecchymosis and a healing stapled laceration on the back of her head. Does have old blood adhered to the area. The pt has a history of cerebral amyloid with bleed and is s/p angiopathy, a small right frontal intracranial hemorrhage on this admission, alzheimer/dementia, visual field loss due to previous bleed, GERD, TB. Body Four View: 2 1. Occipital area Wound Occipital: Wound Type: Laceration (With surrounding ecchymosis) Wound General Appearance: Well Approximated, Maame Intact, Open to air, Healing Well and Other (Old blood adhered to scalp) Wound Bed Greatest Portion: Dusky Red and Other Wound Surrounding Tissue Appearance: Dark Red and Purple (ecchymotic) Wound Length: 0.79 in Wound Width: 1.18 in Wound Depth: 0 in Wound Drainage Amount: None Wound Drainage Odor: None/Absent Wound Topical Solution/Irrigant: Saline Irrigant Wound Debridement Method: Gauze Wound Debridement Result: Pt Unable to Tolerate Wound Debridement Amount of Tissue Removed: None Additional Other Comments: Will require additional cleansing. Pain Pain Level: 3 Pain Scale Used: Cohen-Junior Faces Pain Description: Other (hurts with palpation) Pain Duration/Frequency: Intermittent and With Palpation Wound Summary Wound Summary: Wound is healing well. Well approximated with maame intact. Photo Photo: Treatment/Dressing Change Topicals/Ointments: Tripl Abx Ointment Cleanse With: Saline Dressing Types: Other (leave open to air) Recomendation Recomendation:: 1. Clean the wound with normal saline once daily. 2. Apply triple antibiotic cream to suture line TID. Encourage pt to lie on her sides while in bed taking pressure off the occipital area. While sitting, place pillow behind her shoulder area for support so her head will be slightly forward and not resting on the bed or chair. Physcian/Nurse Practioner Notified: No (Not available currently.) Treatment Time Time Total Time Spent with Patient: 20 minutes
[2024-04-06] MEDS: Divalproex 250 MG TABEC 500 MG PO (20:39)
--- NOTE | 2024-04-07 00:08 | NUR.NOTE ---
Nursing Note: pt refused VS around 2300
[2024-04-07 02:40] VITALS: BP 124/45; PULSE 63; RESP 18; TEMP 36.1; O2SAT 93
[2024-04-07] MEDS: Levothyroxine 125 MCG TAB PO (06:37)
[2024-04-07 07:49] VITALS: BP 135/46; PULSE 63; RESP 18; TEMP 36.8; O2SAT 93
[2024-04-07] MEDS: DULoxetine 20 MG CAP 40 MG PO (08:41)
[2024-04-07] MEDS: Senna TAB 1 TAB PO (08:41)
[2024-04-07] MEDS: Allopurinol 100 MG TAB PO (08:41)
[2024-04-07] MEDS: Ursodiol 300 MG CAP PO ×2 (08:41→20:16)
[2024-04-07] MEDS: Memantine 5 MG TAB 10 MG PO ×2 (08:42→20:16)
[2024-04-07] MEDS: Polyethylene Glycol 3350 17 GM PACKET PO ×2 (08:42→20:16)
[2024-04-07] MEDS: Famotidine 20 MG TAB PO ×2 (08:42→20:17)
[2024-04-07] MEDS: Ferrous Gluconate 324 MG TAB PO ×2 (08:42→20:16)
[2024-04-07] MEDS: Divalproex 250 MG TABEC PO (08:42)
[2024-04-07] MEDS: Psyllium PKT 1 EACH PO ×2 (08:42→20:16)
[2024-04-07] MEDS: Normal Saline Flush 10 ML SYR IVP ×2 (08:43→20:17)
--- NOTE | 2024-04-07 09:28 | PDOC.CMPRO ---
Date of service: 04/07/24 Time of Service: 09:28 Care Management Progress Note Progress Note Text Progress Note Text: Pat was lying in bed when CM met with her. She was more awake than on previous visits and engaged well with CM. She stated that she is not doing well today and complained of pain. When asked where she hurt, she said my head. CM reported this to the provider who ordered another CT scan. Fortunately, the CT scan showed that the previous cerebral hemorrhage has almost completely resolved. It is possible that she will be re-statred on the Apixaban to treat the PEs. Referrals to [facility] and [facility] in [place] will be sent tomorrow. Discharge Potential Discharge Needs: Other (will need placement) Anticipated Barriers to Discharge: Bed availability Patient/Family Education Needs: Review discharge instructions, discuss Ask Me Three Transportation: Other (to be determined by disposition) Plan: When Pat is medically cleared CM will send a referral to [facility] at her daughter China's request. If she is not accepted to [facility], efforts will begin to find comsec manager placement. CM will follow and continue to assess for discharge needs. SDOH(Care Management) Screening Will the Patient Participate in the Screening?: Yes Do you worry about having a steady place to live?: yes In the past 12 months, have you had to go without electric, gas, oil or water in your home?: no Have you or anyone in your house had to go without enough food to eat?: no Has lack of transportation kept you from medical appointments or from doing things needed for daily living?: no Has anyone in your support network made you feel unsafe for any reason?: no Social Determinants of Health Comments(SDOH Details): pt lived in assisted living facility Health Related Social Needs Health related social needs: housing instability, housed, with risk of homelessness(Z59.811)
--- NOTE | 2024-04-07 09:55 | PGE_ITS ---
Date of Service Date of service: 04/07/24 Time of Service: 10:00 Assessment and Plan Assessment and plan (1) Altered mental status: Status: Acute Assessment and plan: Increased sedation after receiving increased dose of seroquel on 04/06 will discontinue scheduled dosing - PRN seroquel more alert and interactive CT repeated d/t intense and sudden headache CT negative for progression :Previously noted right frontal cortical hemorrhage is now almost completely resolved (2) Urinary tract infection: Status: Acute Assessment and plan: Resolved urine culture grew enterococcus faecalis treated with fosfomycin on 04/03, no further symptoms (3) Intracranial hemorrhage: Status: Acute Assessment and plan: DNR/DNI confirmed as per palliative consult- with no intention for acute intervention in the event that she has a massive intracerebral bleed serial CT scans of the head stable. Patient is in a room near nurses station with alarms on 100% of the time Etiology of her pulmonary embolism was never determined. Given her history of dementia and frequent falls she is a high risk to resume anticoagulation. Given her prior history of cerebral amyloid even without the fall she would be at higher risk for recurrent cerebral bleeds. Clinically she is asymptomatic for the pulmonary embolism with no dyspnea, oxygen requirements or chest discomfort. discussed with neurosurgery Dr Reyes at [facility], repeat CT shows resolving bleed. they recommend that we could restart anticoagulation after 7 days from head injury. pending vascular surgery weigh in on the resumption of apixaban. Cardiology - risk of recurrent cerebral hemorrhage would be higher if anticoagulation is restarted, and this would be more pertinent as to quality of life. It is impossible to quantify risks of recurrent PE. See note Palliative consulted to discuss with family goals of care - see their noteS New headache at 8/10 as per Junior's face scale, questionable left eye lid ptosis : head CT stat to r/o worsening intracranial bleed Will reach out to vascular pending results- Previously noted right frontal cortical hemorrhage is now almost completely resolved -[facility] vascular services deferring recommendations to neurosurgery. As stated above anticoagulation to be started 7 days from an injury. Will proceed with Eliquis 5 mg twice daily (4) Alzheimer dementia with psychotic disturbance: Status: Acute Assessment and plan: Continue Depakote and as needed Seroquel. Monitor for behavioral changes. Qualifiers: Alzheimer's disease onset: late onset Dementia severity: severe Qualified Code(s): G30.1 - Alzheimer's disease with late onset; F02.C2 - Dementia in other diseases classified elsewhere, severe, with psychotic disturbance (5) Recurrent falls: Status: Acute Assessment and plan: PT consult No further attempt to get out of bed on her own or out of the chair noticed. Chair and bed alarms in use On prior fall, the patient's legs became weak and was assisted to the floor by CARBON DIOXIDE OPERATOR, no injury, did not hit her head. She did c/o of buttock pain - xray of the pelvis negative. 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 Assessment and plan: Chronic_no limit in range of motion when following fingers with eyes (8) Cerebral amyloid angiopathy: Status: Chronic Assessment and plan: Chronic (9) Scalp laceration: Status: Acute Assessment and plan: primary closure done in the ED, now local wound care keeping clean maame to be removed 04/08/24order placed Staple removed today: No bleeding at wound site Qualifiers: Encounter type: initial encounter Qualified Code(s): S01.01XA - Laceration without foreign body of scalp, initial encounter (10) Pulmonary embolism: Status: Chronic Assessment and plan: Previous right sided PE involving RML, RLL, w treatment w/ apixaban now w/ complications of right frontal lobe intraparenchymal cerebral bleeding d/t trauma. She has had her anticoagulation reversed d/t slightly increasing focus of bleeding. Clinically she is stable but needs monitoring. Repeat CT head stable. Safe to restart today as per recommendation from neurosurgery?7 days status post injury Given her prior cerebral bleed from cerebral amyloid and her dementia and falls, she is high risk for rebleed-will monitor closely bilateral DVT studies negative. The patient is asymptomatic for the pulmonary embolism with no dyspnea, oxygen r equirements or chest discomfort. Palliative consulted to discuss with family goals of care -please read notes -Start Eliquis 5mg PO BID at HS 04/07/24 Qualifiers: Pulmonary embolism type: multiple subsegmental (without acute cor pulmonale) Qualified Code(s): I26.94 - Multiple subsegmental pulmonary emboli without acute cor pulmonale (11) DVT prophylaxis: Status: Acute Assessment and plan: Initially contraindicated in setting of acute cerebral hemorrhage but now on Eliquis Chance stockings were ordered (12) Discharge planning issues: Status: Acute Assessment and plan: Case management following for discharge planning Discharge as per PT recommendation for SNF versus long-term care. discussed with Dr. Ferguson Subjective Subjective Patient reports: no new complaints, feels better, tolerating liquids well, tolerating a regular diet, voiding w/o difficulty and bowel movement; denies diarrhea, nausea, vomiting, shortness of breath or fever Exam Narrative Exam Narrative: Constitutional The patient is sitting in chair, comfortable and cooperative during the interview. The patient is without acute distress HENMT: healing scab at on parietal scalp- maame removed - no bleeding. Facial structures with normal appearance Eyes: Well aligned, intact ROM Neck: Normal ROM, no meningeal signs Neuro:alert and oriented to self, non- focal Resp: Normal respiratory pattern, speaks in full sentences, unlabored breathing, clear lung bilaterally Cardio: regular rhythm, S1, S2, no murmur, capillary refill<3 sec., bilateral radial and dorsalis pedis pulses are positive, palpable GI: Abdomen is not distended, soft and non tender, bowel sounds are present (ostomy intact, draining soft/liquid stool ) Psych: RASS 0, congruent mood and normal affect. Objective Last Vital Signs Temp 36.8 C 04/07/24 07:49 Pulse 63 04/07/24 07:49 Resp 18 04/07/24 07:49 BP 135/46 L 04/07/24 07:49 Pulse Ox 93 04/07/24 07:49 Time Spent with Patient Time Spent with Patient: >50 minutes Time was spent: preparing to see the patient(eg.review tests), obtaining and/or reviewing separately otained hiistory, ordering medications,tests, procedures, referring, communicating with other health medicare sales executive, indepentently interpreting results, counseling the patient and care coordination
--- NOTE | 2024-04-07 10:11 | PT.INTREAT ---
PT Notes Visit Reasons: cerebral hemorrhage Inpatient Physical Therapy Treatment Note [facility] Date: 04-07-2024 PRECAUTIONS:Fall risk, fajardo catheter, IV LUE SUBJECTIVE: Pt reports she feels better but does not know what is wrong. She reports her vision has changed but unable to express how and where she is having trouble seeing. She was noted to be continuously stating what am I doing as she was walking with the FWW. OBJECTIVE: awake alert in bed with HOB elevated eating grapes watching the news; , fajardo to bedside drainage, Pt agreeable to participate in session? PAIN: intermittent statements by pt of ooow' during supine to sit and it hurts all over when walking VITALS: Therapeutic Activities (11740): Direct one-on-one instruction in dynamic activities to improve functional performance. ? BED MOBILITY/TRANSFERS? Rolling L/R: min A with rail to right , Mod A with rail to left Supine-sit: min A with HOB up? Sit-supine: 2nd session Mod A of 1 ? Sit-stand: min A with verbal and tactile cues for hand placement to push up ? Stand-sit: min A to lower d/t right knee buckle as she attempted to lower herself to the chair , pt able to recall need to reach back prior to sitting? Bed-Chair: min A with FWW assist for stability and walker management ? Chair-bed: 2nd session: min A with 3 episode of R knee instability during step turn with FWW Provided skilled cues and instruction on performance and technique throughout. ? Ambulation ? Assistive Device: FWW? Weight bearing: full Assist: min A for trunk stability and FWW management? Distance:? 30 feet with 2 turns with decreased step length and height BLE decreased right knee flexion during swing phase,? ; 2nd session 12 feet x 2 with intermittent right knee instability.? Provided skilled instruction in proper exercise performance Provided skilled manual cues to facilitate proper muscle recruitment and/or form: [] ASSESSMENT:?Pt with significant improvement in level of alertness able to answer questions and participate in skilled treatment session on this date. Pt demonstrates impaired vision difficult to assess specifically detail deficits d/t cognitive impairments. Pt able to locate bowl of grapes when placed at midline however was unable to locate when placed to left. Pt with one episode of right knee instability during stand to sit on chair after ambulation with FWW in first session then multiple episodes of right knee buckling during 2nd session. Pt with poor safety awareness and judgement. . Pt is not able to manage the 4WW at this time. PLAN:Continue skilled PT for strengthening, transfer and ambulation with device TREATMENT CODE/TIME: 1st session:70253b 2 units for 25 minutes; 2nd session: 52406 x 2 units for 28 minutes DISCHARGE RECOMMENDATION: SNF
[2024-04-07 11:47] VITALS: BP 116/64; PULSE 64; RESP 19; TEMP 36.6; O2SAT 96
[2024-04-07 15:23] VITALS: BP 134/47; PULSE 64; RESP 19; TEMP 36.7; O2SAT 97
--- NOTE | 2024-04-07 15:53 | NUR.NOTE ---
Patient complaining of new onset of headache. SEARCH ENGINE OPTIMIZATION SPECIALIST Alyssa Winston at bedside. stat head ct ordered. Nursing Note:
--- NOTE | 2024-04-07 16:06 | DI.CT_ITS ---
Exam(s) CT HEAD WO EXAM: CT HEAD WO CLINICAL HISTORY: New headache, known right frontal parenchymal hemo. TECHNIQUE: Imaging Protocol: Axial computed tomography images with coronal and sagittal reformatted images were created and reviewed COMPARISON: CT CT HEAD WO from 04/05/2024 FINDINGS: Ventricles and Extra axial spaces: Normal in size and morphology for the degree of atrophy. Hemorrhage: The previously noted hemorrhage in the high right frontal cortex is now only faintly visu alized. No new areas of hemorrhage. Cerebral parenchyma: No evidence of acute infarct or mass. Midline shift: None. Brainstem/Cerebellum: Normal. Calvarium: Normal. Visualized Paranasal sinuses:Clear. Mastoids: Clear. Soft Tissues: Posterior skin maame. ORBITS: Unremarkable. PITUITARY: Not enlarged. IMPRESSION: Previously noted right frontal cortical hemorrhage is now almost completely resolved. No acute intra cranial process. RADIATION DOSE DELIVERED: Total DLP DATA REPOSITORY: All CT scans at this facility are submitted to the National Radiology Data Registry (NRDR) Dose Index Registry (DIR) with the [employer] (ACR). RADIATION OPTIMIZATION: All CT scans at this facility use at least one of these dose optimization te chniques: automated exposure control; mA and/or kV adjustment per patient size (includes targeted exa ms where dose is matched to clinical indication); or iterative reconstruction.
[2024-04-07 19:30] VITALS: BP 153/55; PULSE 61; RESP 16; TEMP 36.6; O2SAT 97
[2024-04-07] MEDS: traZODone 50 MG TAB 100 MG PO (20:16)
[2024-04-07] MEDS: Melatonin 3 MG TAB PO (20:16)
[2024-04-07] MEDS: Apixaban 5 MG TAB PO (20:16)
[2024-04-07] MEDS: Divalproex 250 MG TABEC 500 MG PO (20:17)
[2024-04-07 23:59] VITALS: BP 133/47; PULSE 54; RESP 16; TEMP 36.4; O2SAT 94
[2024-04-08 04:30] VITALS: BP 125/69; PULSE 58; RESP 16; TEMP 36.2; O2SAT 96
[2024-04-08] MEDS: Levothyroxine 125 MCG TAB PO (06:11)
[2024-04-08 07:06] LABS: Abs Immature Grans 0.03 10^3/uL (0.0-0.06); Absolute Basophil Count 0.03 10^3/uL (0.0-0.2); Absolute Eosinophil Count 0.16 10^3/uL (0.0-0.7); Absolute Lymphocyte Count 1.45 10^3/uL (1.2-3.4); Absolute Monocyte Count 0.62 10^3/uL (0.1-0.8); Absolute Neutrophil Count 3.71 10^3/uL (1.2-6.7); Basophils % 0.5 %; Eosinophils % 2.7 %; HCT 31.3 % (36.0-46.0); HGB 9.4 g/dL (11.2-15.7); Immature Grans % 0.5 %; Lymphocytes % 24.2 %; MCH 27.4 pg (27.0-33.0); MCV 91 fL (80-95); MPV 10.2 fL (8.0-11.0); Monocytes % 10.3 %; Neutrophils % 61.8 %; Platelet Count 238 10^3/uL (130-400); RBC 3.43 10^6/uL (3.93-5.22); RDW 15.6 % (11.7-14.6); RDW-SD 52.8 fL
[2024-04-08 07:14] LABS: INR 1.2 (0.9-1.1); PTT Activated 30.5 sec (23.6-32.8); Prothrombin Time 11.9 sec (9.1-11.1)
[2024-04-08 07:18] LABS: Anion Gap 7.2 mmol/L (3-11); BUN 22 mg/dL (7-18); CO2 29.8 mmol/L (21.0-32.0); CREATININE 1.1 mg/dL (0.55-1.02); Calcium 9.6 mg/dL (8.5-10.1); Chloride 102 mmol/L (98-107); Estimated GFR 50.17 (mL/min/1.73m2); Glucose 81 mg/dL (74-106); Potassium 4.1 mmol/L (3.5-5.1); Sodium 139 mmol/L (136-145)
[2024-04-08 07:40] VITALS: BP 147/65; PULSE 60; RESP 16; TEMP 35.7; O2SAT 95
[2024-04-08] MEDS: Ursodiol 300 MG CAP PO ×2 (08:15→19:32)
[2024-04-08] MEDS: Psyllium PKT 1 EACH PO ×2 (08:15→19:31)
[2024-04-08] MEDS: Polyethylene Glycol 3350 17 GM PACKET PO ×2 (08:15→19:31)
[2024-04-08] MEDS: Lisinopril 10 MG TAB 20 MG PO (08:16)
[2024-04-08] MEDS: Ferrous Gluconate 324 MG TAB PO ×2 (08:16→19:32)
[2024-04-08] MEDS: DULoxetine 20 MG CAP 40 MG PO (08:16)
[2024-04-08] MEDS: Famotidine 20 MG TAB PO ×2 (08:16→19:32)
[2024-04-08] MEDS: Allopurinol 100 MG TAB PO (08:16)
[2024-04-08] MEDS: Senna TAB 1 TAB PO (08:16)
[2024-04-08] MEDS: Divalproex 250 MG TABEC PO (08:16)
[2024-04-08] MEDS: Apixaban 5 MG TAB PO ×2 (08:16→19:32)
[2024-04-08] MEDS: Memantine 5 MG TAB 10 MG PO ×2 (08:17→19:33)
[2024-04-08] MEDS: Normal Saline Flush 10 ML SYR IVP ×5 (08:34→19:39)
--- NOTE | 2024-04-08 08:52 | CMPROGNOTE_ITS ---
Date of service: 04/08/24 Time of Service: 08:52 Care Management Progress Note Progress Note Text Progress Note Text: Amanda has been sleeping much of the day again. When CM went to see her she opened her eyes but not engage in conversation. She again just stated that she was tired and wanted to sleep. Clinically she appears stable. Her apixaban was restarted last evening. A repeat CT scan is ordered for Thursday to ensure there is no recurrence of the intracranial bleed. Pat continues to work with PT, ambulating with a walker, wearing a hinged knee brace. Today she walked a shorter distance due to pain and mentation, but continues to try. If Pat continues to do well, referrals will be sent to [facility] [place] and possibly to some correction facilities in [place] for marine oil terminal superintendent care. Discharge Potential Discharge Needs: Other (SNF) Anticipated Barriers to Discharge: None Identified Patient/Family Education Needs: Review discharge instructions, discuss Ask Me Three Transportation: Private vehicle Plan: When Pat is medically cleared CM will send a [facility] If she is not accepted to [facility], efforts will begin to find marine oil terminal superintendent placement. CM will follow and continue to assess for discharge needs. SDOH(Care Management) Screening Will the Patient Participate in the Screening?: Yes Do you worry about having a steady place to live?: yes In the past 12 months, have you had to go without electric, gas, oil or water in your home?: no Have you or anyone in your house had to go without enough food to eat?: no Has lack of transportation kept you from medical appointments or from doing things needed for daily living?: no Has anyone in your support network made you feel unsafe for any reason?: no Social Determinants of Health Comments(SDOH Details): pt lived in assisted living facility Health Related Social Needs Health related social needs: housing instability, housed, with risk of homelessness(Z59.811)
[2024-04-08 11:34] VITALS: BP 134/54; PULSE 57; RESP 17; TEMP 36.4; O2SAT 98
--- NOTE | 2024-04-08 11:59 | PT.INTREAT ---
PT Notes Visit Reasons: cerebral hemorrhage Inpatient Physical Therapy Treatment Note [facility] Date: 04-08-2024 PRECAUTIONS:Fall risk, fajardo catheter, IV LUE, colostomy SUBJECTIVE: Patient reports she wants to try to walk today OBJECTIVE: awake alert in bed with HOB elevated eating grapes watching the news; , fajardo to bedside drainage, Pt agreeable to participate in session? PAIN: intermittent statements by pt of ooow' during supine to sit however denies pain when asked if something is wrong Therapeutic Activities (11962): Direct one-on-one instruction in dynamic activities to improve functional performance. ? BED MOBILITY/TRANSFERS? Rolling L/R: min A with rail to right , Mod A with rail to left Supine-sit: min A with HOB up? Sit-stand: min A with verbal and tactile cues for hand placement to push up ? Stand-sit: CGA with cues for hand placement? Bed-Chair: min A with FWW assist for stability and walker management ? Chair-chair: min assist with FWW for walker management Provided skilled cues and instruction on performance and technique throughout. ? Ambulation ? Assistive Device: FWW? Weight bearing: full Assist: min A for trunk stability and FWW management?and verbal cues to increase step length ? Distance: 25 feet x 2 with decreased step length and height BLE decreased right knee flexion during swing phase,? ; ? Provided skilled instruction in proper exercise performance Provided skilled manual cues to facilitate proper muscle recruitment and/or form: [] ASSESSMENT:?Patient noted with improved stability in standing with no buckling noted in right lower extremity. Patient able to follow instructions to increase step length with intermittent cue approximately every 3-4 steps. She requires a wheelchair follow for safety. Pt is not able to manage the 4WW at this time. But may be able to attempt use of her four-wheel walker if stability continues to improve. PLAN:Continue skilled PT for strengthening, transfer and ambulation with device TREATMENT CODE/TIME:42121l 2 units for 27 minutes; 1010?1037 DISCHARGE RECOMMENDATION: SNF
--- NOTE | 2024-04-08 12:58 | PT.INTREAT ---
PT Notes Visit Reasons: cerebral hemorrhage Inpatient Physical Therapy Treatment Note [facility] Date: 04/08/2024 PRECAUTIONS: High fall risk. Johnson catheter in place. Colostomy bag in place. Impaired safety awareness. Activity as tolerated. Hiinged knee brace on the R side when OOb for chroninc knee instability. SUBJECTIVE: I wan to to go now! Ed let's go! Per Nurse Peter, patient's R knee has been buckling and Nurse Eleanor added that daughter statesd thatthis issue has been going on for queite a while. Wnated to go back to bed after walking with Pt and Nurse Eleanor today. OBJECTIVE: Appeared restless. Closes eyes but opens them when name is called. Anxious about where she was going. ? PAIN: Verbalization of pain every time she stands up, sits down, or moves. States the her legs do not feel good. BED MOBILITY/TRANSFERS: Maximal cueing provided for use of B hands as needed for support, movement sequence, AD management, and posture to reduce fall risk and minimize pain report ? Supine-sit: minimal assist with HOB at 30 degrees? Sit-stand: minimal assist from edge of bed and from wheelchair with maximal cues to use both hands for support ? Stand-sit: contact guard assist to upper back with maximal cues to reach behind, takes a while to transition down to sitting? Bed-Chair: minmal assist? Chair-chair: minmal assist? GAIT: ? Assistive Device: FWW? Weight bearing: FWB Assist: minimal assist Cueing: maximal cueing to increase step height and length, R knee instability decreased with use of R hinged knee brace, needed occasional maneuvering of walker to propel patient more forward, easily distractable ? Distance: 30 feet + 10 feet + 5 feet + 10 feet + 10 feet using hinged knee brace on the R with decreased step length and height; anxious and highly distractable and needed frequent redirection? ASSESSMENT:? Decreased distance walked primarily due to generalized pain and easy distractablity coupled with anxiety in patient. Pat needed extensive redirection as well as reassurance to continue with acivity. Will touch base with primary PT Regina regarding continued use of hinged knee brace considering increased stability and improved step quality with its use. Patient's impaired safety awareness and overall cognitive level requires the assistance of 2 people for safety. Brace on when walking patient, off when in bed. Please ensure that skin checks are done to area covered by brace every shift. PLAN: Continue skilled PT for strengthening, transfer and ambulation with device DISCHARGE RECOMMENDATION: SNF TREATMENT CODE/TIME: 95361 x 38 minutes for 3 units (12:58-13:36).
[2024-04-08] MEDS: fentaNYL 12 MCG PATCH TD (13:06)
--- NOTE | 2024-04-08 14:52 | W.PM.PROGNOT ---
Date of Service Date of service: 04/08/24 Time of Service: 10:45 Assessment and Plan Assessment and plan (1) Altered mental status: Status: Acute Assessment and plan: Increased sedation after receiving increased dose of seroquel on 04/06 will discontinue scheduled dosing - PRN seroquel more alert and interactive CT repeated d/t intense and sudden headache CT negative for progression :Previously noted right frontal cortical hemorrhage is now almost completely resolved Next CT in for Thursday 08:00 (2) Urinary tract infection: Status: Acute Assessment and plan: Resolved urine culture grew enterococcus faecalis treated with fosfomycin on 04/03, no further symptoms Repeat UA pending- RN triggered felt the patient was more confused Will d/c fajardo for voiding trial (3) Intracranial hemorrhage: Status: Acute Assessment and plan: Remains a DNR/DNI; it was confirmed as per palliative consult- with no intention for acute intervention in the event that she has a massive intracerebral bleed serial CT scans of the head stable. Patient is in a room near nurses station with alarms on 100% of the time- No attempt to get OOB or out of the chair made spontaneously Etiology of her pulmonary embolism was never determined- but is now treated with Eliquis Given her history of dementia and frequent falls she is a high risk to resume anticoagulation. Given her prior history of cerebral amyloid even without the fall she would be at higher risk for recurrent cerebral bleeds. Clinically she is asymptomatic for the pulmonary embolism with no dyspnea, oxygen requirements or chest discomfort. As per discussions with [place] Re[place] [facility] [place] shows resolving bleed. they recommend that we could restart anticoagulation after 7 days from head injury. Vascular surgery defaulted decision to neurosurgery on 04/07 on the resumption of apixaban. Cardiology - risk of recurrent cerebral hemorrhage would be higher if anticoagulation is restarted, and this would be more pertinent as to quality of life. It is impossible to quantify risks of recurrent PE. See note Palliative consulted to discuss with family goals of care -Please read notes Will reach out to vascular pending results- Previously noted right frontal cortical hemorrhage is now almost completely resolved -[facility] deferring recommendations to neurosurgery. As stated above anticoagulation to be started 7 days from an injury. New headache on 04/07 at 8/10 as per Junior's face scale, with questionable left eyelid ptosis : head CT showed ongoing resolution of intracerebral bleed Will continue with Eliquis 5 mg twice daily started on 04/07 at HS CBC in AM BMP in AM (4) Alzheimer dementia with psychotic disturbance: Status: Acute Assessment and plan: On Depakote and as needed Seroquel. Continue to monitor for behavioral changes. Qualifiers: Alzheimer's disease onset: late onset Dementia severity: severe Qualified Code(s): G30.1 - Alzheimer's disease with late onset; F02.C2 - Dementia in other diseases classified elsewhere, severe, with psychotic disturbance (5) Recurrent falls: Status: Acute Assessment and plan: PT consult ongoing No reported attempts to get out of bed on her own or out of the chair noticed. On going chair and bed alarms use On prior fall was witnessed: the patient's legs became weak and was assisted to the floor by BURNER TECHNICIAN, no injury, did not hit her head. She did c/o of buttock pain - xray of the pelvis was negative. 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 Assessment and plan: Chronic_no limit in range of motion when following fingers with eyes (8) Cerebral amyloid angiopathy: Status: Chronic Assessment and plan: Chronic (9) Scalp laceration: Status: Acute Assessment and plan: primary closure done in the ED, now local wound care keeping clean maame to be removed 04/08/24order placed Staple removed 04/07/24: No bleeding at wound site today Qualifiers: Encounter type: initial encounter Qualified Code(s): S01.01XA - Laceration without foreign body of scalp, initial encounter (10) Pulmonary embolism: Status: Chronic Assessment and plan: Previous right sided PE involving RML, RLL, w treatment w/ apixaban now w/ complications of right frontal lobe intraparenchymal cerebral bleeding d/t trauma. She has had her anticoagulation reversed d/t slightly increasing focus of bleeding. Clinically she is stable but needs monitoring. Repeat CT head stable. Safe to restart today as per recommendation from neurosurgery?7 days status post injury Given her prior cerebral bleed from cerebral amyloid and her dementia and falls, she is high risk for rebleed-will monitor closely bilateral DVT studies negative. The patient is asymptomatic for the pulmonary embolism with no dyspnea, oxygen requirements or chest discomfort. Palliative consulted to discuss with family goals of care -please read available notes -Continue Eliquis 5mg PO BID Monitor for bleeding Qualifiers: Pulmonary embolism type: multiple subsegmental (without acute cor pulmonale) Qualified Code(s): I26.94 - Multiple subsegmental pulmonary emboli without acute cor pulmonale (11) DVT prophylaxis: Status: Acute Assessment and plan: Pharmacological DVT prophylaxis was initially contraindicated in setting of acute cerebral hemorrhage but now on Eliquis Teds stockings were ordered- might be removed if not tolerated (12) Discharge planning issues: Status: Acute Assessment and plan: Case management following for discharge planning Discharge as per PT recommendation for SNF versus long-term care. discussed with Dr. Post Subjective Subjective Patient reports: no new complaints, tolerating liquids well, tolerating a regular diet, voiding w/o difficulty, bowel movement and diarrhea; denies nausea, vomiting, shortness of breath or fever Exam Narrative Exam Narrative: Constitutional The patient is sitting in chair, comfortable and cooperative during the interview. The patient is without acute distress HENMT: healing scab at on parietal scalp- maame removed on 04/07- no bleeding. Facial structures with normal appearance Eyes: Well aligned, intact ROM Neck: Normal ROM, no meningeal signs Neuro:alert and oriented to self only, non- focal Resp: Normal respiratory pattern, speaks in full sentences, unlabored breathing, clear lung bilaterally Cardio: regular rhythm, S1, S2, postive radial and pedal pulses GI: Abdomen is not distended, soft and minimally tender on palpation when asked, bowel sounds are present (ostomy intact, draining soft/liquid stool ) Psych: RASS 0, congruent mood and normal affect. Objective Last Vital Signs Temp 36.4 C L 04/08/24 11:34 Pulse 57 L 04/08/24 11:34 Resp 17 04/08/24 11:34 BP 134/54 L 04/08/24 11:34 Pulse Ox 98 04/08/24 11:34 Laboratory Results - last 24 hr 04/08/24 06:33 WBC 6.00 RBC 3.43 L Hgb 9.4 L Hct 31.3 L MCV 91 MCH 27.4 MCHC 30.0 L RDW 15.6 H Plt Count 238 MPV 10.2 Immature Gran % 0.5 Neutrophils % 61.8 Lymphocytes % 24.2 Monocytes % 10.3 Eosinophils % 2.7 Basophils % 0.5 Nucleated RBC % 0.0 Absolute Neutrophils 3.71 Absolute Lymphocytes 1.45 Absolute Monocytes 0.62 Absolute Eosinophils 0.16 Absolute Basophils 0.03 PT 11.9 H INR 1.2 H APTT 30.5 Sodium 139 Potassium 4.1 Chloride 102 Carbon Dioxide 29.8 Anion Gap 7.2 BUN 22 H Creatinine 1.1 H Est GFR (CKD-EPI 2020) 50.17 Glucose 81 Calcium 9.6 Time Spent with Patient Time Spent with Patient: >50 minutes Time was spent: preparing to see the patient(eg.review tests), obtaining and/or reviewing separately otained hiistory, ordering medications,tests, procedures, referring, communicating with other health school child care attendant, indepentently interpreting results, counseling the patient and care coordination
[2024-04-08 15:13] VITALS: BP 147/59; PULSE 66; RESP 15; TEMP 36.9; O2SAT 98
[2024-04-08 18:49] LABS: Bilirubin Negative (Negative); Blood Large (Negative); Clarity Sl Cloudy (Clear); Glucose Negative (Negative); Ketones Negative (Negative); Leukocyte Esterase Negative (Negative); Nitrite Negative (Negative); Specific Gravity 1.025 (1.005-1.025); Urobilinogen 0.2 mg/dL (Up to 0.2)
[2024-04-08 18:53] LABS: Bacteria Rare HPF (Negative); C & S Indicated? No; Casts Negative LPF (Negative); Crystals Negative HPF (Negative); Epithelial Cells Rare HPF (Negative); Mucus Negative (Negative); RBC >50 HPF (0-2); WBC Negative HPF (0-5)
[2024-04-08 19:26] VITALS: BP 145/58; PULSE 65; RESP 17; TEMP 36.6; O2SAT 93
[2024-04-08] MEDS: Melatonin 3 MG TAB PO (19:32)
[2024-04-08] MEDS: Acetaminophen 325 MG TAB PO (19:32)
[2024-04-08] MEDS: traZODone 50 MG TAB 100 MG PO (19:33)
[2024-04-08] MEDS: QUEtiapine 25 MG TAB 12.5 MG PO (19:33)
[2024-04-08] MEDS: Divalproex 250 MG TABEC 500 MG PO (21:41)
--- NOTE | 2024-04-09 | DI.RAD_ITS ---
Exam(s) XR ABDOMEN FLAT UPRIGHT EXAM: XR ABDOMEN FLAT UPRIGHT CLINICAL HISTORY: low stool output. TECHNIQUE: 2D digital imaging was performed. COMPARISON: CT CT ABDOMEN PELVIS WO x 03/30/[address] scan of 03/31/2024. FINDINGS: Two views-AP supine and [id number] decubitus views. Left-sided colostomy is again noted. Recent CT scan reveals a colostomy associated peristomal hernia . There does not appear to be obvious bowel obstruction nor free air. Vertebroplasty cement is again noted in T12 vertebral body. IMPRESSION: Left-sided colostomy with para ostomy hernia. There does not appear to be evidence of an obvious bow el obstruction. Also no free intraperitoneal air. DATA REPOSITORY: RADIATION DOSE DELIVERED:
[2024-04-09 03:00] VITALS: BP 130/50; PULSE 60; RESP 16; TEMP 35.7; O2SAT 90
[2024-04-09 04:27] VITALS: O2SAT 95
[2024-04-09] MEDS: Levothyroxine 125 MCG TAB PO (05:53)
[2024-04-09 07:17] LABS: Abs Immature Grans 0.04 10^3/uL (0.0-0.06); Absolute Basophil Count 0.03 10^3/uL (0.0-0.2); Absolute Eosinophil Count 0.15 10^3/uL (0.0-0.7); Absolute Lymphocyte Count 1.45 10^3/uL (1.2-3.4); Absolute Monocyte Count 0.68 10^3/uL (0.1-0.8); Absolute Neutrophil Count 3.06 10^3/uL (1.2-6.7); Basophils % 0.6 %; Eosinophils % 2.8 %; HCT 28.9 % (36.0-46.0); HGB 8.8 g/dL (11.2-15.7); Immature Grans % 0.7 %; Lymphocytes % 26.8 %; MCH 27.8 pg (27.0-33.0); MCHC 30.4 % (32.0-36.0); MCV 92 fL (80-95); MPV 10.5 fL (8.0-11.0); Monocytes % 12.6 %; Neutrophils % 56.5 %; Platelet Count 223 10^3/uL (130-400); RBC 3.16 10^6/uL (3.93-5.22); RDW 15.8 % (11.7-14.6); RDW-SD 53.1 fL; WBC 5.41 10^3/uL (4.4-10.8)
[2024-04-09 07:25] LABS: Anion Gap 7.5 mmol/L (3-11); BUN 28 mg/dL (7-18); CO2 29.5 mmol/L (21.0-32.0); CREATININE 1.1 mg/dL (0.55-1.02); Chloride 100 mmol/L (98-107); Estimated GFR 50.17 (mL/min/1.73m2); Glucose 87 mg/dL (74-106); Potassium 4.2 mmol/L (3.5-5.1); Sodium 137 mmol/L (136-145)
[2024-04-09 07:58] VITALS: BP 136/59; PULSE 59; RESP 19; TEMP 36.9; O2SAT 90
--- NOTE | 2024-04-09 11:01 | PTTR_ITS ---
PT Notes Visit Reasons: cerebral hemorrhage Inpatient Physical Therapy Treatment Note [facility] Date: 04/09/2024 PRECAUTIONS: High fall risk. Johnson catheter in place. Colostomy bag in place. Impaired safety awareness. Can be agitated. Activity as tolerated. Hinged knee brace on the R side when OOB for chronic knee instability. SUBJECTIVE: Per Nurse Sandi, patient is having a difficult day and was quite agitated and resistive to movement earlier. She was non verbal with me but did nod her head to want to sit up but then did not assist in anyway with several tries. She was initially agreeable with a nod to moving her UE and LE but then did not assist with more than 2 reps with UE and did perform ankle pumps Per previous note patient's R knee has been buckling that this issue has been going on for quite a while. Trial of hinged knee brace on last visit but she refused to get out of bed today. . OBJECTIVE: Closes eyes but opens intermittently when encouraged. Refusal to try transfers by not assisting. ? PAIN: Verbalization of pain every time she moves. BED MOBILITY/TRANSFERS:Attempted but resistant throughout session. ? Manual therapy:?? ([id number][[id number]]) 10 minHands-on techniques to modulate pain increase joint range of motion reduce restriction facilitate relaxation and improve contractile and non-contractile tissue extensibility Treatment: []? ? She did allow for initially AAROM and then PROM of UE with hands clasped elevation, hip /knee flexion and extension, ankle pumps without issue however went from AA to Passive rapidly but she was not resistant. ? ASSESSMENT:? Pt. refusal of assisting with transfers, bed mobility or gait today. She did allow for initially AAROM and then PROM of UE with hands clasped elevation, hip /knee flexion and extension, ankle pumps without issue however went from AA to P assive rapidly but she was not resistant. Skin integrity looked good. PLAN: Continue skilled PT for strengthening, transfer and ambulation with device(RW) DISCHARGE RECOMMENDATION: SNF TREATMENT CODE/TIME: 37207 x 10 minutes 11:15-11:25 Cheryl ShettyPT
[2024-04-09 11:57] VITALS: BP 138/65; PULSE 56; RESP 17; TEMP 36.6; O2SAT 91
--- NOTE | 2024-04-09 12:30 | W.PM.PROGNOT ---
Date of Service Date of service: 04/09/24 Time of Service: 12:31 Assessment and Plan Assessment and plan (1) Altered mental status: Status: Acute Assessment and plan: Increased sedation after receiving increased dose of seroquel on 04/06 will discontinue scheduled dosing - PRN seroquel not participating in care/rehab. resistive to care, not taking PO CT repeated 04/08 d/t intense and sudden headache CT negative for progression :Previously noted right frontal cortical hemorrhage is now almost completely resolved Next CT in for Thursday 08:00 (2) Urinary tract infection: Status: Acute Assessment and plan: Resolved urine culture grew enterococcus faecalis treated with fosfomycin on 04/03, no further symptoms Repeat UA with no evidence of untreated infection, no culture indicated (RN triggered as patient was more confused) fajardo was discontinued for voiding trial monitor for retention (3) Intracranial hemorrhage: Status: Acute Assessment and plan: Remains a DNR/DNI; it was confirmed as per palliative consult- with no intention for acute intervention in the event that she has a massive intracerebral bleed serial CT scans of the head stable. Patient is in a room near nurses station with alarms on 100% of the time- No attempt to get OOB or out of the chair made spontaneously Etiology of her pulmonary embolism was never determined- but is now treated with Eliquis Given her history of dementia and frequent falls she is a high risk to resume anticoagulation. Given her prior history of cerebral amyloid even without the fall she would be at higher risk for recurrent cerebral bleeds. Clinically she is asymptomatic for the pulmonary embolism with no dyspnea, oxygen requirements or chest discomfort. As per discussions with neurosurgery Dr Reyes at [facility] [place], repeat CT shows resolving bleed. they recommend that we could restart anticoagulation after 7 days from head injury. Vascular surgery defaulted decision to neurosurgery on 04/07 on the resumption of apixaban. Cardiology - risk of recurrent cerebral hemorrhage would be higher if anticoagulation is restarted, and this would be more pertinent as to quality of life. It is impossible to quantify risks of recurrent PE. See note Palliative consulted to discuss with family goals of care -Please read notes Will reach out to vascular pending results- Previously noted right frontal cortical hemorrhage is now almost completely resolved -[facility] [place] services deferring recommendations to neurosurgery. As stated above anticoagulation to be started 7 days from an injury. New headache on 04/07 at 8/10 as per Junior's face scale, with questionable left eyelid ptosis : head CT showed ongoing resolution of intracerebral bleed Will continue with Eliquis 5 mg twice daily started on 04/07 at HS CBC in AM BMP in AM (4) Alzheimer dementia with psychotic disturbance: Status: Acute Assessment and plan: On Depakote and as needed Seroquel. Continue to monitor for behavioral changes. Qualifiers: Alzheimer's disease onset: late onset Dementia severity: severe Qualified Code(s): G30.1 - Alzheimer's disease with late onset; F02.C2 - Dementia in other diseases classified elsewhere, severe, with psychotic disturbance (5) Recurrent falls: Status: Acute Assessment and plan: PT consult ongoing No reported attempts to get out of bed on her own or out of the chair noticed. On going chair and bed alarms use On prior fall was witnessed: the patient's legs became weak and was assisted to the floor by MOLASSES PREPARER, no injury, did not hit her head. She did c/o of buttock pain - xray of the pelvis was negative. 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 Assessment and plan: Chronic_no limit in range of motion when following fingers with eyes (8) Cerebral amyloid angiopathy: Status: Chronic Assessment and plan: Chronic (9) Scalp laceration: Status: Acute Assessment and plan: primary closure done in the ED, now local wound care keeping clean maame to be removed 04/08/24order placed Staple removed 04/07/24: No bleeding at wound site today Qualifiers: Encounter type: initial encounter Qualified Code(s): S01.01XA - Laceration without foreign body of scalp, initial encounter (10) Pulmonary embolism: Status: Chronic Assessment and plan: Previous right sided PE involving RML, RLL, w treatment w/ apixaban now w/ complications of right frontal lobe intraparenchymal cerebral bleeding d/t trauma. She has had her anticoagulation reversed d/t slightly increasing focus of bleeding. Clinically she is stable but needs monitoring. Repeat CT head stable. Safe to restart today as per recommendation from neurosurgery?7 days status post injury Given her prior cerebral bleed from cerebral amyloid and her dementia and falls, she is high risk for rebleed-will monitor closely bilateral DVT studies negative. The patient is asymptomatic for the pulmonary embolism with no dyspnea, oxygen requirements or chest discomfort. Palliative consulted to discuss with family goals of care -please read available notes -Continue Eliquis 5mg PO BID Monitor for bleeding Qualifiers: Pulmonary embolism type: multiple subsegmental (without acute cor pulmonale) Qualified Code(s): I26.94 - Multiple subsegmental pulmonary emboli without acute cor pulmonale (11) DVT prophylaxis: Status: Acute Assessment and plan: Pharmacological DVT prophylaxis was initially contraindicated in setting of acute cerebral hemorrhage but now on Eliquis Teds stockings were ordered- might be removed if not tolerated (12) Discharge planning issues: Status: Acute Assessment and plan: Case management following for discharge planning Discharge as per PT recommendation for SNF versus long-term care. discussed with Dr. Post Subjective Subjective Interval history since last seen: patient resistive to care, not taking PO. more sedate. Exam Const General: no acute distress Orientation: confused and other (arousable) Other: resistive to care HENMT Head: normal to inspection, normocephalic and laceration (healing) Face and sinus: normal facial exam Mouth: oral mucosa abnormal (dry) Neck Neck: normal visual inspection and full ROM Chest Chest: normal inspection of the chest Resp Effort & Inspection: normal respiratory effort Cardio Rate: regular rate Rhythm: regular rhythm GI Inspection: normal to inspection Palpation: soft and other (ostomy intact, minimal drainage, smearing ) Neuro General: moves all extremities Motor: muscle tone normal throughout Extrem General: normal to inspection, full ROM and no pedal edema Psych Affect: blunted Objective Last Vital Signs Temp 36.6 C 04/09/24 11:57 Pulse 56 L 04/09/24 11:57 Resp 17 04/09/24 11:57 BP 138/65 04/09/24 11:57 Pulse Ox 91 L 04/09/24 11:57 Laboratory Results - last 24 hr 04/08/24 04/09/24 18:30 06:30 WBC 5.41 RBC 3.16 L Hgb 8.8 L Hct 28.9 L MCV 92 MCH 27.8 MCHC 30.4 L RDW 15.8 H Plt Count 223 MPV 10.5 Immature Gran % 0.7 Neutrophils % 56.5 Lymphocytes % 26.8 Monocytes % 12.6 Eosinophils % 2.8 Basophils % 0.6 Nucleated RBC % 0.0 Absolute Neutrophils 3.06 Absolute Lymphocytes 1.45 Absolute Monocytes 0.68 Absolute Eosinophils 0.15 Absolute Basophils 0.03 Sodium 137 Potassium 4.2 Chloride 100 Carbon Dioxide 29.5 Anion Gap 7.5 BUN 28 H Creatinine 1.1 H Est GFR (CKD-EPI 2020) 50.17 Glucose 87 Calcium 9.0 Urine Color Yellow Urine Clarity Sl Cloudy Urine pH 7.0 Ur Specific [place] 1.025 Urine Protein 100 H Urine Ketones Negative Urine Blood Large H Urine Nitrite Negative Urine Bilirubin Negative Urine Urobilinogen 0.2 Ur Leukocyte Esterase Negative Urine RBC >50 H Urine WBC Negative Ur Epithelial Cells Rare Urine Crystals Negative Urine Bacteria Rare Urine Casts Negative Urine Mucus Negative Ur Culture Indicated? No Urine Glucose Negative Time Spent with Patient Time Spent with Patient: 35-49 minutes Time was spent: preparing to see the patient(eg.review tests), obtaining and/or reviewing separately otained hiistory, ordering medications,tests, procedures and indepentently interpreting results
--- NOTE | 2024-04-09 14:54 | NUR.NOTE ---
Nursing Note:Fentanyl patch discontinued, witness by charge nurse Imer
[2024-04-09] MEDS: Patch Removal 1 EACH TD (14:55)
[2024-04-09] MEDS: MORPHine 2 MG/ML SYR SC ×4 (14:56→19:59)
--- NOTE | 2024-04-09 16:22 | DI.VRAD_ITS ---
PROCEDURE INFORMATION: Exam: XR Abdomen Exam date and time: 04/09/2024 2:40 PM Age: 83 years old Clinical indication: Other: Low stool output TECHNIQUE: Imaging protocol: Radiologic exam of the abdomen. Views: 2 Views. Upright and supine views. COMPARISON: CT ABDOMEN PELVIS WO 03/30/2024 8:34 PM FINDINGS: Gastrointestinal tract: No dilated bowel. Air in the colon . Intraperitoneal space: Normal. No free air. Bones/joints: Vertebroplasty in the lumbar spine. Degenerative changes in the thoracolumbar spine and both hips IMPRESSION: Air in the colon Dictated and Authenticated by: Floyd Yee MD. Ordering:SANDRINE Santoyo MD
--- NOTE | 2024-04-09 18:29 | NUR.NOTE ---
Nursing Note: Patient having really good results with SQ MS, she was receptive to mouth care and small amount of water.
[2024-04-09 19:23] VITALS: BP 145/57; PULSE 75; RESP 16; TEMP 36.7; O2SAT 91
[2024-04-10] MEDS: MORPHine 2 MG/ML SYR SC ×2 (02:26→12:42)
[2024-04-10 04:30] VITALS: BP 130/60; PULSE 70; RESP 18; TEMP 36.5; O2SAT 92
[2024-04-10 07:51] VITALS: BP 127/45; PULSE 85; RESP 18; TEMP 36.4; O2SAT 92
[2024-04-10] MEDS: Normal Saline Flush 10 ML SYR IVP ×2 (08:20→21:22)
--- NOTE | 2024-04-10 10:13 | PT.INTREAT ---
PT Notes Visit Reasons: cerebral hemorrhage Inpatient Physical Therapy Treatment Note [facility] Date: 04/10/24 PRECAUTIONS:Standard R knee gives out and has a brace OBJECTIVE: Therapeutic Activities ([id number]]): Direct one-on-one instruction in dynamic activities to improve functional performance. ? BED MOBILITY/TRANSFERS? Supine-sit: Modx2 ? Sit-supine: Modx2? Sit-stand: Modx2 ? Stand-sit: CGAx2 ? GAIT? Assistive Device: FWW? Weight bearing: Full R knee was buckling Assist: CGA ? Distance:? Static standing approx 1 min? Therapeutic Exercises ([id number][]): Direct one-on-one instruction in therapeutic exercises to develop strength, endurance, range of motion and flexibility. ? Exercises ? Shoulder flexion with assist. ? ASSESSMENT:? Pt's R knee was unstable with standing. Pt did not want to walk to the chair but stood while we fixed her bed. PLAN: Cont as per PT POC. TREATMENT CODE/TIME: 9:35-10:05 (30) TAx2 DISCHARGE RECOMMENDATION: []
[2024-04-10 11:21] VITALS: BP 143/52; PULSE 72; RESP 18; TEMP 36.3; O2SAT 92
--- NOTE | 2024-04-10 11:47 | W.PM.PROGNOT ---
Date of Service Date of service: 04/10/24 Time of Service: 11:47 Assessment and Plan Assessment and plan (1) Altered mental status: Status: Acute Assessment and plan: Increased sedation after receiving increased dose of seroquel on 04/06 and not improved much after discontinuing scheduled dosing still not participating in care/rehab. resistive to care, not taking PO CT repeated 04/08 d/t intense and sudden headache CT negative for progression :Previously noted right frontal cortical hemorrhage is now almost completely resolved Next CT in for Thursday AM 08:00 family moving towards comfort care only, discussion with family to stop fentanyl and start low dose morphine drip and seeing how that goes. palliative meeting pending for Thursday, discontinued many meds as she is not taking po, will likely d/c others after meeting tomorrow based on outcome of meeting. (2) Urinary tract infection: Status: Resolved Assessment and plan: Resolved urine culture grew enterococcus faecalis treated with fosfomycin on 04/03, no further symptoms Repeat UA with no evidence of untreated infection, no culture indicated (RN triggered as patient was more confused) fajardo was discontinued for voiding trial monitor for retention (3) Intracranial hemorrhage: Status: Acute Assessment and plan: Remains a DNR/DNI; it was confirmed as per palliative consult- with no intention for acute intervention in the event that she has a massive intracerebral bleed, patient moving towards [facility], palliative meeting pending for Wednesday 04/[address] scans of the head stable. Patient is in a room near nurses station with alarms on 100% of the time- No attempt to get OOB or out of the chair made spontaneously Etiology of her pulmonary embolism was never determined- but is now treated with Eliquis Given her history of dementia and frequent falls she is a high risk to resume anticoagulation. Given her prior history of cerebral amyloid even without the fall she would be at higher risk for recurrent cerebral bleeds. Clinically she is asymptomatic for the pulmonary embolism with no dyspnea, oxygen requirements or chest discomfort. As per discussions with neurosurgery Dr Reyes at [facility] [place], repeat CT shows resolving bleed. they recommend that we could restart anticoagulation after 7 days from head injury. Vascular surgery defaulted decision to neurosurgery on 04/07 on the resumption of apixaban. Cardiology - risk of recurrent cerebral hemorrhage would be higher if anticoagulation is restarted, and this would be more pertinent as to quality of life. It is impossible to quantify risks of recurrent PE. See note Palliative consulted to discuss with family goals of care -Please read notes Will reach out to vascular pending results- Previously noted right frontal cortical hemorrhage is now almost completely resolved -[facility] vascular services deferring recommendations to neurosurgery. As stated above anticoagulation to be started 7 days from an injury. New headache on 04/07 at 8/10 as per Junior's face scale, with questionable left eyelid ptosis : head CT showed ongoing resolution of intracerebral bleed Will continue with Eliquis 5 mg twice daily started on 04/07 at HS CBC in AM BMP in AM (4) Alzheimer dementia with psychotic disturbance: Status: Acute Assessment and plan: On Depakote and as needed Seroquel. Continue to monitor for behavioral changes. Qualifiers: Alzheimer's disease onset: late onset Dementia severity: severe Qualified Code(s): G30.1 - Alzheimer's disease with late onset; F02.C2 - Dementia in other diseases classified elsewhere, severe, with psychotic disturbance (5) Recurrent falls: Status: Acute Assessment and plan: PT consult ongoing No reported attempts to get out of bed on her own or out of the chair noticed. On going chair and bed alarms use On prior fall was witnessed: the patient's legs became weak and was assisted to the floor by SOFTWARE PROJECT LEAD, no injury, did not hit her head. She did c/o of buttock pain - xray of the pelvis was negative. 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 Assessment and plan: unable to assess (8) Cerebral amyloid angiopathy: Status: Chronic Assessment and plan: Chronic (9) Scalp laceration: Status: Acute Assessment and plan: primary closure done in the ED, now local wound care keeping clean maame to be removed 04/08/24order placed Staple removed 04/07/24: No bleeding at wound site today Qualifiers: Encounter type: initial encounter Qualified Code(s): S01.01XA - Laceration without foreign body of scalp, initial encounter (10) Pulmonary embolism: Status: Chronic Assessment and plan: Previous right sided PE involving RML, RLL, w treatment w/ apixaban now w/ complications of right frontal lobe intraparenchymal cerebral bleeding d/t trauma. She has had her anticoagulation reversed d/t slightly increasing focus of bleeding. Clinically she is stable but needs monitoring. Repeat CT head stable. Safe to restart today as per recommendation from neurosurgery?7 days status post injury Given her prior cerebral bleed from cerebral amyloid and her dementia and falls, she is high risk for rebleed-will monitor closely bilateral DVT studies negative. The patient is asymptomatic for the pulmonary embolism with no dyspnea, oxygen requirements or chest discomfort. Palliative consulted to discuss with family goals of care -please read available notes -Continue Eliquis 5mg PO BID Monitor for bleeding Qualifiers: Pulmonary embolism type: multiple subsegmental (without acute cor pulmonale) Qualified Code(s): I26.94 - Multiple subsegmental pulmonary emboli without acute cor pulmonale (11) DVT prophylaxis: Status: Acute Assessment and plan: on Eliquis (12) Discharge planning issues: Status: Acute Assessment and plan: Case management following for discharge planning Discharge as per PT recommendation for SNF versus long-term care. discussed with Dr. Post Exam Const General: no acute distress Orientation: confused and other (arousable) HENMA Head: normal to inspection, normocephalic and laceration (healing) Face and sinus: normal facial exam Mouth: oral mucosa abnormal (dry) Neck Neck: normal visual inspection and full ROM Chest Chest: normal inspection of the chest Resp Effort & Inspection: normal respiratory effort Cardio Rate: regular rate Rhythm: regular rhythm GI Inspection: normal to inspection Palpation: soft and other (ostomy intact, minimal drainage, smearing ) Neuro General: moves all extremities Motor: muscle tone normal throughout Extrem General: normal to inspection, full ROM and no pedal edema Psych Affect: blunted Objective Last Vital Signs Temp 36.3 C L 04/10/24 11:21 Pulse 72 04/10/24 11:21 Resp 18 04/10/24 11:21 BP 143/52 H 04/10/24 11:21 Pulse Ox 92 04/10/24 11:21 Time Spent with Patient Time Spent with Patient: 35-49 minutes Time was spent: preparing to see the patient(eg.review tests), ordering medications,tests, procedures, indepentently interpreting results and counseling the patient
[2024-04-10] MEDS: MORPHine 250 MG in Normal Saline 245 ML IV (13:42)
[2024-04-10 16:06] VITALS: BP 111/46; PULSE 60; RESP 18; TEMP 36.4; O2SAT 91
[2024-04-10] MEDS: traZODone 50 MG TAB 100 MG PO (21:18)
[2024-04-10] MEDS: Apixaban 5 MG TAB PO (21:18)
[2024-04-10] MEDS: Divalproex 250 MG TABEC 500 MG PO (21:18)
[2024-04-10] MEDS: Melatonin 3 MG TAB PO (21:18)
--- NOTE | 2024-04-11 07:39 | W.PALPGNOTE ---
Date of service: 04/11/24 Time of Service: 07:39 Assessment and Plan Assessment and plan (1) Counseling regarding advance care planning and goals of care: Status: Acute (2) Pulmonary embolism: Status: Chronic Qualifiers: Pulmonary embolism type: multiple subsegmental (without acute cor pulmonale) Qualified Code(s): I26.94 - Multiple subsegmental pulmonary emboli without acute cor pulmonale (3) Alzheimer dementia with psychotic disturbance: Status: Acute Qualifiers: Alzheimer's disease onset: late onset Dementia severity: severe Qualified Code(s): G30.1 - Alzheimer's disease with late onset; F02.C2 - Dementia in other diseases classified elsewhere, severe, with psychotic disturbance (4) Osteoarthritis of spine with radiculopathy, lumbar region: Status: Acute Assessment and plan: I will be coming back this afternoon to speak with Pat. I will call up her daughter China to discuss goals of care. She is presently on morphine pump. The order says CADD pump. Nursing will clarify this later today. I went to discuss with care management but not available Addendum after speaking with China: China wants her mom to be on comfort measures only. She agrees with stopping eliquis, valproic acid, trazadone, seroquel, zyrexa and other po meds. She will be at [facility] between 3-4 PM and will speak to me again then. Adendum: I did return and unfortunately missed China. I will call her tomorrow. Please note Pat is resting comfortably Subjective Subjective Interval history since last seen: Pat was restarted on anticoagulation, Eliquis. This was under the direction of the neurosurgeon. Per staff she is refusing medications. She has pretty much been sleeping and declining anything p.o. Exam Narrative Exam Narrative: Amanda is lying in her bed. She is breathing comfortably. Her heart rate is about 70. Respiration about 14. I did talk with her and she swarmed but did not open her eyes Objective Last Vital Signs Temp 97.5 F L 04/10/24 16:06 Pulse 60 04/10/24 16:06 Resp 18 04/10/24 16:06 BP 111/46 L 04/10/24 16:06 Pulse Ox 91 L 04/10/24 16:06
--- NOTE | 2024-04-11 09:11 | W.PM.PROGNOT ---
Date of Service Date of service: 04/11/24 Time of Service: 09:11 Assessment and Plan Assessment and plan (1) Comfort measures only status: Status: Acute Assessment and plan: As per palliative care cosnult with 's notes -OB/GYN NURSE as per discussion with daughter China -Oral meds are discontinued- patient remains unresponsive to verbal and tactile stimuli -Continue implementing orders from the OB/GYN NURSE order set (2) Altered mental status: Status: Acute Assessment and plan: As above (3) Intracranial hemorrhage: Status: Acute Assessment and plan: Now OB/GYN NURSE as per point One Intial fall on 03/31/2024 with with intracranial hemorrhage while anticoagulated with Eliquis for pulmonary embolism-Reversed n admission with Kcentra and vitamin K Serial CT scans of the head were stable- resolving bleed. Patient is in a room near nurses station d/t risk of falls with alarms on 100% of the time- No attempt to get OOB or out of the chair made spontaneously Given her history of dementia and frequent falls she is a high risk to resume anticoagulation. Given her prior history of cerebral amyloid even without the fall she would be at higher risk for recurrent cerebral bleeds. Clinically she is asymptomatic for the pulmonary embolism with no dyspnea, oxygen requirements or chest discomfort. As per discussions with [place] [facility] [place], vascular surgery: Recommendation that we could restart anticoagulation after 7 days from head injury. - risk of recurrent cerebral hemorrhage would be higher if anticoagulation is restarted, and this would be more pertinent as to quality of life. It is impossible to quantify risks of recurrent PE. Eliquis 5 mg twice daily started on 04/07 at , then discontinue as per OB/GYN NURSE decision made (4) Alzheimer dementia with psychotic disturbance: Status: Acute Assessment and plan: As per OB/GYN NURSE point One Qualifiers: Alzheimer's disease onset: late onset Dementia severity: severe Qualified Code(s): G30.1 - Alzheimer's disease with late onset; F02.C2 - Dementia in other diseases classified elsewhere, severe, with psychotic disturbance (5) Recurrent falls: Status: Acute Assessment and plan: As per OB/GYN NURSE point One (6) Constipation: Status: Acute Assessment and plan: As per OB/GYN NURSE point One stop miralax, metamucil, not taking PO at this time flat and upright with no obstruction Qualifiers: Constipation type: drug induced constipation Qualified Code(s): K59.03 - Drug induced constipation (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 Assessment and plan: As per OB/GYN NURSE point One (8) Cerebral amyloid angiopathy: Status: Chronic Assessment and plan: As per OB/GYN NURSE point One (9) Scalp laceration: Status: Acute Assessment and plan: No beeding maame to be removed 04/08/24order placed Staple removed 04/07/24: No bleeding at wound site today Qualifiers: Encounter type: initial encounter Qualified Code(s): S01.01XA - Laceration without foreign body of scalp, initial encounter (10) Pulmonary embolism: Status: Chronic Assessment and plan: As per OB/GYN NURSE point One Qualifiers: Pulmonary embolism type: multiple subsegmental (without acute cor pulmonale) Qualified Code(s): I26.94 - Multiple subsegmental pulmonary emboli without acute cor pulmonale (11) DVT prophylaxis: Status: Acute Assessment and plan: As per OB/GYN NURSE point One (12) Discharge planning issues: Status: Acute Assessment and plan: As per OB/GYN NURSE point One discussed with Dr. Post Subjective Subjective Patient reports: no new complaints and voiding w/o difficulty; denies vomiting, shortness of breath or fever Exam Narrative Exam Narrative: Constitutional The patient is without acute distress HENMT: Releaxed facial expression, structures with normal appearance Eyes: closed Neuro:not arousable to verbal or tactile stimuli Resp: unlabored breathing Cardio: regular rhythm, S1, S2, postive radial and pedal pulses Psych: RASS -2 Objective Last Vital Signs Temp 36.4 C L 04/10/24 16:06 Pulse 60 04/10/24 16:06 Resp 18 04/10/24 16:06 BP 111/46 L 04/10/24 16:06 Pulse Ox 91 L 04/10/24 16:06 Time Spent with Patient Time Spent with Patient: >50 minutes Time was spent: preparing to see the patient(eg.review tests), obtaining and/or reviewing separately otained hiistory, ordering medications,tests, procedures, referring, communicating with other health hearing healthcare practitioner, indepentently interpreting results, counseling the patient and care coordination
[2024-04-11] MEDS: Normal Saline Flush 10 ML SYR IVP ×2 (10:19→21:54)
--- NOTE | 2024-04-11 10:50 | PDOC.CMPRO ---
Date of service: 04/11/24 Time of Service: 10:51 Care Management Progress Note Progress Note Text Progress Note Text: Pat was transitioned to comfort care over the weekend. She is currently has a morphine infusion and is no longer responsive. Pat's daughter China was present when CM met with her and admitted to being exhausted. The past few weeks have been very challenging and China has had to deal with most of it herself, not always receiving support from other family members. China was encouraged to go home and get some rest. She had hoped to meet or speak with Dr. Arnett but decided she would go home and hopefully talk with her tomorrow. This was communicated to Dr. Arnett. Discharge Potential Discharge Needs: Other (Pat will remain at [facility] for end of life care) Anticipated Barriers to Discharge: Medical Status Plan: Amanda has been transitioned to comfort measures and will remain at [facility] for end of life care. CM will follow and continue to support Amanda and her family through this transition. SDOH(Care Management) Screening Will the Patient Participate in the Screening?: Yes Do you worry about having a steady place to live?: yes In the past 12 months, have you had to go without electric, gas, oil or water in your home?: no Have you or anyone in your house had to go without enough food to eat?: no Has lack of transportation kept you from medical appointments or from doing things needed for daily living?: no Has anyone in your support network made you feel unsafe for any reason?: no Social Determinants of Health Comments(SDOH Details): pt lived in assisted living facility Health Related Social Needs Health related social needs: housing instability, housed, with risk of homelessness(Z59.811)
--- NOTE | 2024-04-11 10:52 | INDS_ITS ---
PT Notes Visit Reasons: cerebral hemorrhage Inpatient Physical Therapy Discharge Summary Dates: 04-11-2024 Dates of Service: 04/04/24- 04/11/2024 SUBJECTIVE: Pt nonverbal, opened left eye to verbal stimuli OBJECTIVE: Pt supine in bed with venodyne boots in place. Non verbal opened left eye to her name then closed it Right eye open non reactive. Pain: unable to express no facila grimacing or restlessness noted ROM: WNL PROM BUE and LEs STRENGTH:Pt with no active movement of BUE and LE Therapeutic activity: positioned 1/4 turn from supine on left side with right UE supported on pillow; and left shoulder in IR position and left hands open resting on right forearm; pillow between knees. BED MOBILITY/TRANSFERS: Supine-sit Dependent of 2 Sit-supine Dependent of 2 Sit-stand NT Stand-sit NT Bed-Chair NT Chair-bed NT GAIT: Pt unable since decline in medical status. BALANCE: Static sitting NT bed bound Dynamic sitting NT bed bound Static standing NT bed bound Dynamic standing NT bed bound SPECIAL TESTS: NA ASSESSMENT: Pt is 83 yo female initially referred to PT s/p cerebral hemorrhage, PEs and dementia. Pt demonstrated progress with skilled PT interventions until sudden change in medical status. Pt had progressed to ambulation 30 feet with FWW with mod A and 2nd person for safety d/t instability of right knee. Her family has made the decision to change the focus of care to [facility] therefore skilled PT is being discontinued. Nursing educated on positioning for comfort and skin integrity GOALS ( Met / Not Met): [] Goals: goals were not met d/t decline in medical status with change in focus of care to [facility] DISCHARGE PLAN/RECOMMENDATIONS: [facility] status Time: [id number]
[2024-04-11] MEDS: LORazepam 2 MG/ML VIAL IV/SC (21:55)
[2024-04-12] MEDS: LORazepam 2 MG/ML VIAL IV/SC ×2 (01:23→15:19)
[2024-04-12] MEDS: Glycopyrrolate 0.2 MG/1 ML VIAL IVP ×3 (06:36→16:15)
[2024-04-12] MEDS: Normal Saline Flush 10 ML SYR IVP ×2 (06:36→08:36)
--- NOTE | 2024-04-12 09:19 | PDOC.CMPRO ---
Date of service: 04/12/24 Time of Service: 09:19 Care Management Progress Note Progress Note Text Progress Note Text: Amanda remains on comfort measures and is receiving morphine 2mg/hr via pump. She is no longer responding and appears comfortable. Amanda's daughters China and Ayesha were visiting at the time CM came to see Amanda. They commented that they feel that she is comfortable. Amanda did have a fever today of 38.8 C. She was given Acetominophen for the fever and scopalomine to help dry her secretions. Discharge Potential Discharge Needs: Other (end of life care) Anticipated Barriers to Discharge: Medical Status Plan: Amanda has been transitioned to comfort measures and will remain at [facility] for end of life care. CM will continue to support Amanda and her family through this transition.Final arrangements will be through [facility] in [place]. SDOH(Care Management) Screening Will the Patient Participate in the Screening?: Yes Do you worry about having a steady place to live?: yes In the past 12 months, have you had to go without electric, gas, oil or water in your home?: no Have you or anyone in your house had to go without enough food to eat?: no Has lack of transportation kept you from medical appointments or from doing things needed for daily living?: no Has anyone in your support network made you feel unsafe for any reason?: no Social Determinants of Health Comments(SDOH Details): pt lived in assisted living facility Health Related Social Needs Health related social needs: housing instability, housed, with risk of homelessness(Z59.811)
--- NOTE | 2024-04-12 12:33 | PGE_ITS ---
Date of Service Date of service: 04/12/24 Time of Service: 12:33 Assessment and Plan Assessment and plan (1) Comfort measures only status: Status: Acute Assessment and plan: As per palliative care cosnult with 's notes completed on 04/11 -Remains PROCEDURE MANAGER as per discussion with daughter China -No further oral meds- discontinued on 04/11 - PROCEDURE MANAGER order set in progress (2) Altered mental status: Status: Acute Assessment and plan: As above (3) Intracranial hemorrhage: Status: Acute Assessment and plan: PROCEDURE MANAGER as per point One Initially fell on 03/31/2024 with intracranial hemorrhage while anticoagulated with Eliquis for pulmonary embolism- This was reversed on admission with K- Centra and vitamin K Serial CT scans of the head were stable- showing resolving bleed. Fall safety maintained prior to PROCEDURE MANAGER determination Detremined that w the hx of dementia and frequent falls- was high risk of bleeding with resumption anticoagulation. With the history of cerebral amyloid even without the fall she would be at higher risk for recurrent cerebral bleeds. Was asymptomatic for the pulmonary embolism with no dyspnea, oxygen requirements or chest discomfort. As per discussions with neurosurgery Dr Reyes at [facility] [place], cardiology, vascular surgery: Recommendation that we could restart anticoagulation after 7 days from head injury. - risk of recurrent cerebral hemorrhage would be higher if anticoagulation is restarted, and this would be more pertinent as to quality of life. It is impossible to quantify risks of recurrent PE. Eliquis 5 mg twice daily started on 04/07 at , then discontinue on 04/11/24 as per PROCEDURE MANAGER decision made as per point one (4) Alzheimer dementia with psychotic disturbance: Status: Acute Assessment and plan: As per PROCEDURE MANAGER point One Qualifiers: Alzheimer's disease onset: late onset Dementia severity: severe Qualified Code(s): G30.1 - Alzheimer's disease with late onset; F02.C2 - Dementia in other diseases classified elsewhere, severe, with psychotic disturbance (5) Recurrent falls: Status: Acute Assessment and plan: As per PROCEDURE MANAGER point One (6) Constipation: Status: Acute Assessment and plan: As per PROCEDURE MANAGER point One Qualifiers: Constipation type: drug induced constipation Qualified Code(s): K59.03 - Drug induced constipation (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 Assessment and plan: As per PROCEDURE MANAGER point One (8) Cerebral amyloid angiopathy: Status: Chronic Assessment and plan: As per PROCEDURE MANAGER point One (9) Scalp laceration: Status: Acute Assessment and plan: No beeding maame to be removed 04/08/24order placed Staple removed 04/07/24: No bleeding at wound site today Qualifiers: Encounter type: initial encounter Qualified Code(s): S01.01XA - Laceration without foreign body of scalp, initial encounter (10) Pulmonary embolism: Status: Chronic Assessment and plan: As per PROCEDURE MANAGER point One Qualifiers: Pulmonary embolism type: multiple subsegmental (without acute cor pulmonale) Qualified Code(s): I26.94 - Multiple subsegmental pulmonary emboli without acute cor pulmonale (11) DVT prophylaxis: Status: Acute Assessment and plan: As per PROCEDURE MANAGER point One (12) Discharge planning issues: Status: Acute Assessment and plan: As per PROCEDURE MANAGER point One Expected to pass at [facility] discussed with Dr. Post Subjective Subjective Patient reports: other (Appears comfortable on PROCEDURE MANAGER) Exam Narrative Exam Narrative: Constitutional The patient is without visible signs of cardio-respiratory acute distress HENMT: Relaxed facial expression, structures with normal appearance Eyes: closed Neuro:Remains not arousable to verbal or tactile stimuli Resp: unlabored breathing Cardio: regular rhythm, S1, S2, no mottling or cyanosis Psych: RASS -2 Objective Last Vital Signs Temp 36.4 C L 04/10/24 16:06 Pulse 60 04/10/24 16:06 Resp 18 04/10/24 16:06 BP 111/46 L 04/10/24 16:06 Pulse Ox 91 L 04/10/24 16:06 Time Spent with Patient Time Spent with Patient: >50 minutes Time was spent: preparing to see the patient(eg.review tests), obtaining and/or reviewing separately otained hiistory, referring, communicating with other health school child care attendant and care coordination
--- NOTE | 2024-04-12 15:11 | CHAPLAIN ---
Amanda continues to be on comfort measures and on a morphine drip. She is not responsive but appears to be comfortable. Her daughter China has been here with her, and China and her sister will return this evening. They have asked that China receive last rite and they would like to be here when that is done. Cristal Phillips will be here at 5:30 pm. I'll let China know that.
--- NOTE | 2024-04-13 08:38 | CHAPLAIN ---
Fr. Phillips was here last evening to offer last rites for Amanda. Both of Amanda's daughters were in the room, which they had hoped to be. Amanda's , their dad, in January so the sisters are dealing with the loss of a second parent within two months. They have a brother who in 2015. After spending time with their mom, the sisters were going to have dinner at their parents' favorite restaurant in [place]. Amanda and her were for 62 years. Amanda had been living most recently in [facility] for the past few months after it became too difficult for her to care for her at home. According to the daughters, there was relief for their dad that Amanda was in a safe place, and she seemed to be liking it. Their dad also struggled with not being able to keep Amanda at home, and his health then quickly deteriorated and he of a heart attack.
--- NOTE | 2024-04-13 10:59 | W.PALPGNOTE ---
Date of service: 04/13/24 Time of Service: 09:00 Assessment and Plan Assessment and plan (1) Counseling regarding advance care planning and goals of care: Status: Acute (2) Comfort measures only status: Status: Acute Assessment and plan: Per China's recommendations Pat is now on comfort measures only. She appears comfortable and looks like she is actively dying I did ask nursing to turn off her overhead light. (I tried but could not figure out which one to push) I did speak with China yesterday and she wanted the metallic yarn slitting machine operator to come in and give last rights. I did notify Alyssa who was the RELIEF PHARMACIST taking care of her about this. I believe that this has been ordered. Subjective Subjective Interval history since last seen: Patient is lying in bed and unarousable Exam Narrative Exam Narrative: Pat is lying in bed. She looks warm and perhaps feverish. Her respirations have increased to about 18/min. There is no apnea. Her morphine drip is now at 1.5 The overhead bed light was on directly and her line of vision Objective Last Vital Signs Temp 97.5 F L 04/10/24 16:06 Pulse 60 04/10/24 16:06 Resp 18 04/10/24 16:06 BP 111/46 L 04/10/24 16:06 Pulse Ox 91 L 04/10/24 16:06
--- NOTE | 2024-04-13 11:40 | CHAPLAIN ---
Amanda's daughter from [place] was with her when I visited this morning. Amanda still appears to be comfortable. She is not responsive and remains on comfort measures. Amanda's daughter shared some more stories about Amanda, and her wedding, and her who just two months ago. She said she isn't really surprised that Amanda's health would decline quickly after Amanda's as they were very close and for more than 60 years.
--- NOTE | 2024-04-13 14:03 | W.PM.PROGNOT ---
Date of Service Date of service: 04/13/24 Time of Service: 14:03 Assessment and Plan Assessment and plan (1) Comfort measures only status: Status: Acute Assessment and plan: As per palliative care cosnult with 's notes completed on 04/11 -Remains CYBER FORENSICS ANALYST as per discussion with daughter China -No further oral meds- discontinued on 04/11 - morphine drip at 1.5 mg/hr -Scopalamine and FL APAP added - CYBER FORENSICS ANALYST order set in progress - Corporate Administrator consult 04/12 -Last rights completed on 04/12 with father Alan (2) Altered mental status: Status: Acute Assessment and plan: As above (3) Intracranial hemorrhage: Status: Acute Assessment and plan: CYBER FORENSICS ANALYST as per point One Initially fell on 03/31/2024 with intracranial hemorrhage while anticoagulated with Eliquis for pulmonary embolism- This was reversed on admission with K-Centra and vitamin K Serial CT scans of the head were stable- showing resolving bleed. As per discussions with neurosurgery Dr Reyes at [facility], cardiology, vascular surgery: Recommendation that we could restart anticoagulation after 7 days from head injury. - risk of recurrent cerebral hemorrhage would be higher if anticoagulation is restarted, and this would be more pertinent as to quality of life. It is impossible to quantify risks of recurrent PE. Eliquis 5 mg twice daily started on 04/07 at , then discontinue on 04/11/24 as per CYBER FORENSICS ANALYST decision made as per point one (4) Alzheimer dementia with psychotic disturbance: Status: Acute Assessment and plan: As per CYBER FORENSICS ANALYST point One Qualifiers: Alzheimer's disease onset: late onset Dementia severity: severe Qualified Code(s): G30.1 - Alzheimer's disease with late onset; F02.C2 - Dementia in other diseases classified elsewhere, severe, with psychotic disturbance (5) Recurrent falls: Status: Acute Assessment and plan: As per CYBER FORENSICS ANALYST point One (6) Constipation: Status: Acute Assessment and plan: As per CYBER FORENSICS ANALYST point One Qualifiers: Constipation type: drug induced constipation Qualified Code(s): K59.03 - Drug induced constipation (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 Assessment and plan: As per CYBER FORENSICS ANALYST point One (8) Cerebral amyloid angiopathy: Status: Chronic Assessment and plan: As per CYBER FORENSICS ANALYST point One (9) Scalp laceration: Status: Acute Assessment and plan: No beeding maame to be removed 04/08/24order placed Staple removed 04/07/24: No bleeding at wound site today Qualifiers: Encounter type: initial encounter Qualified Code(s): S01.01XA - Laceration without foreign body of scalp, initial encounter (10) Pulmonary embolism: Status: Chronic Assessment and plan: As per CYBER FORENSICS ANALYST point One Qualifiers: Pulmonary embolism type: multiple subsegmental (without acute cor pulmonale) Qualified Code(s): I26.94 - Multiple subsegmental pulmonary emboli without acute cor pulmonale (11) DVT prophylaxis: Status: Acute Assessment and plan: As per CYBER FORENSICS ANALYST point One (12) Discharge planning issues: Status: Acute Assessment and plan: As per CYBER FORENSICS ANALYST point One Expected to pass at [facility] discussed with Dr. Post Subjective Subjective Interval history since last seen: Patient is lying in bed and unarousable Objective Last Vital Signs Temp 36.4 C L 04/10/24 16:06 Pulse 60 04/10/24 16:06 Resp 18 04/10/24 16:06 BP 111/46 L 04/10/24 16:06 Pulse Ox 91 L 04/10/24 16:06
[2024-04-13 14:14] VITALS: TEMP 38.8
[2024-04-13] MEDS: Acetaminophen 650 MG SUPP PR (14:14)
[2024-04-13 15:14] VITALS: TEMP 38.3
[2024-04-13] MEDS: Scopolamine 1 MG/3 DAYS PATCH TD (15:15)
[2024-04-13] MEDS: LORazepam 2 MG/ML VIAL IV/SC (16:29)
--- NOTE | 2024-04-13 18:11 | W.PM.DDS ---
Date of service: 04/13/24 Time of Service: 18:29 Discharge Plan Disposition Patient Disposition: Discharge Details Reason For Visit: cerebral hemorrhage Admit Date/Time: 03/31/24 13:45 Admit Provider: Marlon Mott Attending Provider: Marlon Mott Primary Care Provider: Ariadna Trevino Discharge Data Cause of : Cerebral hemorrhage Discharge Sum: Prov Provider Consults: 03/31/24 21:53 Wound Care Consult [CONS] Routine Consultation Status:: Follow-up needed Clarification:: Manage/follow per spec. Reason for consult:: evaluate and treat scalp wound 04/03/24 12:33 PT Consult [Physical Therapy Consult] [CONS] Routine Consulting Provider: Valentin Woodward,InPatient Priority: Non-Urgent 04/04/24 15:56 Cardiology Consult [CONS] Routine Consultation Status:: Follow-up needed Clarification:: One time opinion Reason for consult:: When to re- start anticoagulation s/p head bleed. [facility] [place] recommend consulting cardiology. pt is currently not anticoagulated s/t bleed. Neurosurgery also recommended consultation with cardiology to discuss whether the patient needed to be restarted on anticoagulation because of her pulmonary embolism. They recommend repeating her head CT in 12 hours and admitting the patient for neurologic monitoring. The ED provider discussed the case with the patient's daughter who indicated that if the patient develop more catastrophic bleeding she did not feel that surgery would improve the quality of her life and therefore would not recommend emergent transfer for surgical intervention. Hospital service was asked admit the patient and follow-up with a repeat CT scan at 9 PM which was 12 hours after her second CT scan. He is to continue with neurologic monitoring. Patient will remain off of any antiplatelet drugs or anticoagulants. 04/05/24 09:05 Palliative Care Consult [CONS] Routine Consultation Status:: Follow-up needed Clarification:: Manage/follow per spec. Reason for consult:: Goals of care - was on anticoag for PE, fell, head bleed - now off anticoag - benefits/risk or returning on anticoag, risk out weighs benefit at this point. 04/12/24 14:48 Soap Boiler Consult [CONS] Routine Consultation Status:: Follow-up needed Clarification:: Manage/follow per spec. Reason for consult:: Last rights needed as per daughter wishes expressed to Dr. Arnett, The daughter wants to be present. 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 03/20/2024 through 03/22/2024 after she presented to the emergency department after she was found by staff at [facility] and on the floor with an unwitnessed fall. She was agitated and workup revealed that she had pulmonary emboli involving the right middle and right lower lobes with sparing of the right upper lobe vessels and no emboli in the left lung and no saddle Loch embolus. She was also noted to have a 3.2 x 2.6 x 1.7 cm mass behind the medial aspect of the right clavicle which was unchanged from prior CT scans. 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 Subsequent workup included echocardiogram that showed normal left ventricular size and function with no wall motion abnormalities and normal right ventricular size and function with no elevated right ventricular pressures. She was treated with enoxaparin while hospitalized and then transition over to Eliquis. No source of the pulmonary emboli was found. No venous duplex of the legs was performed. Patient presented back to the emergency department on the evening of 03/30/2024 brought in by ambulance from [facility] in after EMS was called out because the patient was becoming agitated and making violent statements towards staff and residents. Patient explicitly complained of minimal output from her colostomy and some lower abdominal pain. 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 She had some chronic bladder wall thickening with trabeculation and diverticuli but there was no bowel obstruction. On examination in the emergency department she was noted to have patent stoma with hard stools and her abdominal exam was benign. Lab workup showed stable anemia , chemistry was unremarkable . Urine showed trace of blood and small leukocytes. Patient was given laxative monitored in the emergency department. Patient's daughter was contacted her daughter informed the staff that Natacha and would not take the patient back without a psychiatric consult; the patient has been off for psychiatric medications. Patient was treated with mag citrate in the emergency department subsequently had additional hard formed stools in her colostomy bag. Telepsych consultation was completed with recommendation for an increased dose of Depakote to 250 mg in the morning and 500 mg at night and adding Seroquel 12.5 mg twice a day as needed for agitation. Plan was for her to be discharged home on the new antipsychotic regimen. However while waiting telepsych recommendations patient got out of bed and had a witnessed fall. Patient struck her head on the ground without of consciousness. C-collar was placed on her neck as precaution she was found that with a 3 cm laceration on her occiput but had an overall normal neurologic exam. Laceration was irrigated and repaired with maame as CT of the head and C-spine was ordered. CT scan of the head showed a small intracerebral hemorrhage in the right frontal lobe. C-spine showed degenerative changes but no fracture. CT also showed a stable mass-like density in the posterior area behind the right clavicle. Neurosurgery at [facility] was contacted. They recommend follow-up CT scan of the head which was then performed on the morning of admission on 03/31/2024. This second CT showed mild increase in the size and density in the right frontal lobe. Neurosurgery at [facility] was recontacted and they agreed that it did appear to be worse and as per their recommendations reversal of her apixaban with Kcentra and vitamin K was completed . They recommend clarifying goals of care with the patient's family. Patient previously had a DNR/DNI order on her chart. A Consultation with cardiology was completed recommendation to repeating her head CT in 12 hours for further decision making regarding pulmonary embolism management and admitting the patient for neurologic monitoring. The ED provider discussed the case with the patient's daughter who indicated that if the patient develop more catastrophic bleeding she did not feel that surgery would improve the quality of her life and therefore would not recommend emergent transfer for surgical intervention. Hospital service was asked admit the patient and follow-up with a repeat CT scan at 9 PM which was 12 hours after her second CT scan, with ongoing neurologic monitoring. Patient initially remained off of any antiplatelet drugs or anticoagulants. During the stay, the patient was treated with fosfomycin for urinary tract infection growing Enterococcus faecalis without any further symptoms. Subsequent head CT showed resolving bleed and apixaban was restarted 7 days after head injury on 04/07/2024. Staple placed during primary closure of the scalp laceration in the ED were also removed without any further bleeding. The patient continued to receive oral medicine for her chronic conditions as per home med regimen and psychiatric consult recommendations. However the patient developed resistance to care and refused to take her oral medication. A palliative care consult was completed with the patient's daughter, China, request requesting for mother to be on comfort measures only. Morphine drip protocol in the setting of palliative care and HEADLIGHT ASSEMBLER was initiated as well as other HEADLIGHT ASSEMBLER measures that pertained to the protocol. On 04/12/2023 the patient received Last rights by father Alan as requested by her daughter China as per discussion with Dr. Arnett. Today, on 04/13/2024 at 1803, Mrs. Manuel stop breathing, in the presence of her daughter China and Kelsi Walker RN. At 1805,Kelsi Walker RN, assessed the absence of heart sounds and and the absence of respiration and pronounced the patient's . At 1815, this provider also assessed the absence of respiration, chest rise, and heart sounds for a full minute. Discussed with Dr. Ferguson Additional Data Confirmation of as documented by pronouncing clinician: no respirations and no heart sounds Family: at bedside Attending/PCP notified?: Yes Attending Physician: Shine Ferguson Was code activated?: No Autopsy requested?: No rn examiner notified?: Yes Advance directives: Yes Hospice patient?: No
== END 2024-04-13 20:50 | disposition expired | DRG 64 ==
LOC: ER 03-31 13:35 → MS 03-31 15:04
PROVIDERS: Emergency Medicine; Nurse Practitioner Acute Care; Nurse Practitioner Family; Admitting Provider Internal Medicine; Emergency Provider Emergency Medicine; PCP Nurse Practitioner Family; Visit Provider Internal Medicine
DX: I62.9 Nontraumatic intracranial hemorrhage, unspecified (principal); I26.94 Multiple subsegmental thrombotic pulmonary emboli without acute cor pulmonale; F02.C2 Dementia in other diseases classified elsewhere, severe, with psychotic disturbance; E85.4 Organ-limited amyloidosis; N39.0 Urinary tract infection, site not specified; F33.2 Major depressive disorder, recurrent severe without psychotic features; K94.09 Other complications of colostomy; N82.3 Fistula of vagina to large intestine; E27.3 Drug-induced adrenocortical insufficiency; G30.1 Alzheimer's disease with late onset; R29.6 Repeated falls; Z51.5 Encounter for palliative care; I68.0 Cerebral amyloid angiopathy; K59.03 Drug induced constipation; I69.398 Other sequelae of cerebral infarction; H54.7 Unspecified visual loss; S01.01XA Laceration without foreign body of scalp, initial encounter; M47.26 Other spondylosis with radiculopathy, lumbar region; I25.10 Atherosclerotic heart disease of native coronary artery without angina pectoris; K57.30 Diverticulosis of large intestine without perforation or abscess without bleeding; Z79.52 Long term (current) use of systemic steroids; Z66 Do not resuscitate; I10 Essential (primary) hypertension; G47.00 Insomnia, unspecified; G89.4 Chronic pain syndrome; M54.9 Dorsalgia, unspecified; M10.9 Gout, unspecified; R33.9 Retention of urine, unspecified; K21.9 Gastro-esophageal reflux disease without esophagitis; D63.8 Anemia in other chronic diseases classified elsewhere; T38.0X5A Adverse effect of glucocorticoids and synthetic analogues, initial encounter; E03.9 Hypothyroidism, unspecified; I73.00 Raynaud's syndrome without gangrene; K76.0 Fatty (change of) liver, not elsewhere classified; B95.2 Enterococcus as the cause of diseases classified elsewhere
CPT/HCPCS: 00123; 12002; 36415; 80048; 80053; 87077; 96361; 96365; 96375; 97140; 97162; 97530; 99221; 99291; 70450; 72125; 72170; 74019; 74176; 81003; 81015; 82607; 82728; 82746; 83540; 83550; 83615; 83735; 85025; 85610; 85730; 87086; 87186; 93970; 99222; 99231; 99232; 99233; J0131; J1596; J2060; J2270; J2404; J3430; J3490; J7168

== ENCOUNTER → 2024-04-05 07:51 | Outpatient (BNVA) | payer MEDICARE, SELFPAY | PROVIDERS: PCP Nurse Practitioner Family; Referring Provider Nurse Practitioner Family; Visit Provider Internal Medicine Cardiovascular Disease ==